=== PATIENT | female | born 1955 | race Asian ===

== ENCOUNTER 2020-07-07 11:27 | Inpatient (IN) | payer MEDICAID ==
[~2020-07-07] VITALS: Ht 160 cm; Wt 73.5 kg
--- NOTE | 2020-07-07 11:26 | Emergency Room Report ---
History of Present Illness General Chief Complaint: Dyspnea/Respdistress Source: Patient, EMS Present Illness HPI Patient is a 65-year-old female presents for increased difficulty with breathing. Patient a prior history of positive coronavirus testing. Patient states she began having symptoms 6 days ago. Prior history of hypertension and diabetes. Reports having worsening shortness of breath as well as body aches. Denies any leg pain or swelling. No chest discomfort. Normally takes Metformin. Nonproductive cough. Patient was seen by paramedics and started on supplemental oxygen Allergies: Coded Allergies: No Known Allergies (Unverified , 07/07/20) Patient History Past Medical History: see triage record Reviewed Nursing Documentation: PMH: Agreed; PSxH: Agreed Review of Systems All Other Systems: negative except mentioned in HPI Physical Exam Sp02 EP Interpretation: reviewed, normal General Appearance: normal inspection, well appearing, no apparent distress, alert, GCS 15, non-toxic, obese Head: atraumatic ENT: normal ENT inspection, hearing grossly normal, normal voice Neck: normal inspection, full range of motion, supple, no bony tend Respiratory: normal inspection, lungs clear, normal breath sounds, no respiratory distress, no retraction, no wheezing Cardiovascular #1: regular rate, rhythm, no edema Gastrointestinal: normal inspection, normal bowel sounds, non tender, soft, no guarding, no hernia Genitourinary: no CVA tenderness Musculoskeletal: normal inspection, back normal, normal range of motion Neurologic: alert, motor strength/tone normal, 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 Total critical care time excluding procedures approximately 45 minutes. Medical Decision Making Diagnostic Impression: Primary Impression: Coronavirus infection Additional Impressions: Pneumonitis Hypoxia Hyponatremia ER Course Patient presents for shortness of breath. Differential diagnosis include was not limited to coronavirus pneumonia, CHF, acidosis among others. Because of complexity of patient's case laboratory tests and imaging studies were ordered. Patient's chest x-ray showed bilateral diffuse patchy infiltrates. Patient started on IV fluids. patient was started on supplemental oxygen required BiPAP due to persistent tachypnea. Dr. Malcolm was contacted for inpatient management due to panel physician. She will be admitted to the stepdown unit due to significant coronavirus infection. Labs Test 07/07/20 11:30 White Blood Count 10.8 K/UL (4.8-10.8) Red Blood Count 4.27 M/UL (4.20-5.40) Hemoglobin 12.0 G/DL (12.0-16.0) Hematocrit 35.2 % (37.0-47.0) Mean Corpuscular Volume 82 FL (80-99) Mean Corpuscular Hemoglobin 28.2 PG (27.0-31.0) Mean Corpuscular Hemoglobin Concent 34.2 G/DL (32.0-36.0) Red Cell Distribution Width 11.6 % (11.6-14.8) Platelet Count 200 K/UL (150-450) Mean Platelet Volume 8.3 FL (6.5-10.1) Neutrophils (%) (Auto) % (45.0-75.0) Lymphocytes (%) (Auto) % (20.0-45.0) Monocytes (%) (Auto) % (1.0-10.0) Eosinophils (%) (Auto) % (0.0-3.0) Basophils (%) (Auto) % (0.0-2.0) Differential Total Cells Counted 100 Neutrophils % (Manual) 81 % (45-75) Lymphocytes % (Manual) 12 % (20-45) Monocytes % (Manual) 4 % (1-10) Eosinophils % (Manual) 0 % (0-3) Basophils % (Manual) 0 % (0-2) Band Neutrophils 3 % (0-8) Platelet Estimate Adequate Platelet Morphology Normal Red Blood Cell Morphology Normal Prothrombin Time 10.7 SEC (9.30-11.50) Prothromb Time International Ratio 1.0 (0.9-1.1) Activated Partial Thromboplast Time 33 SEC (23-33) D-Dimer 0.88 mg/L FEU (0.00-0.49) Sodium Level 121 MMOL/L (136-145) Potassium Level 4.3 MMOL/L (3.5-5.1) Chloride Level 88 MMOL/L (98-107) Carbon Dioxide Level 23 MMOL/L (21-32) Anion Gap 10 mmol/L (5-15) Blood Urea Nitrogen 9 mg/dL (7-18) Creatinine 0.6 MG/DL (0.55-1.30) Estimat Glomerular Filtration Rate > 60 mL/min (>60) Glucose Level 135 MG/DL (74-106) Lactic Acid Level 1.80 mmol/L (0.4-2.0) Calcium Level 8.4 MG/DL (8.5-10.1) Phosphorus Level 2.5 MG/DL (2.5-4.9) Magnesium Level 1.6 MG/DL (1.8-2.4) Ferritin 1494 NG/ML (8-388) Total Bilirubin 0.9 MG/DL (0.2-1.0) Aspartate Amino Transf (AST/SGOT) 49 U/L (15-37) Alanine Aminotransferase (ALT/SGPT) 28 U/L (12-78) Alkaline Phosphatase 39 U/L (46-116) Lactate Dehydrogenase 609 U/L (81-234) Total Creatine Kinase 293 U/L (26-308) Creatine Kinase MB 3.2 NG/ML (0.0-3.6) Creatine Kinase MB Relative Index 1.0 Troponin I 0.000 ng/mL (0.000-0.056) C-Reactive Protein, Quantitative 8.6 mg/dL (0.00-0.90) Pro-B-Type Natriuretic Peptide 261 pg/mL (0-125) Total Protein 8.0 G/DL (6.4-8.2) Albumin 2.8 G/DL (3.4-5.0) Globulin 5.2 g/dL Albumin/Globulin Ratio 0.5 (1.0-2.7) Lipase 142 U/L (73-393) Sulaiman Kraus MD Jul 07, 2020 11:26
[2020-07-07 11:56] LABS: HEMATOCRIT 35.2 % (37.0-47.0); MEAN CORPUSCULAR VOLUME 82 FL (80-99); PLATELET COUNT 200 K/UL (150-450); RED BLOOD COUNT 4.27 M/UL (4.20-5.40); RED CELL DISTRIBUTION WIDTH 11.6 % (11.6-14.8); WHITE BLOOD COUNT 10.8 K/UL (4.8-10.8)
[2020-07-07] MEDS ORDERED: Azithromycin 500 MG in NS 275 ML IV ONE (12:00)
[2020-07-07] MEDS ORDERED: Enoxaparin 80mg Inj SUBQ ONE (12:00)
[2020-07-07 12:14] LABS: ANION GAP 10 mmol/L (5-15); BLOOD UREA NITROGEN 9 mg/dL (7-18); CALCIUM 8.4 MG/DL (8.5-10.1); CARBON DIOXIDE 23 MMOL/L (21-32); CHLORIDE 88 MMOL/L (98-107); CREATININE 0.6 MG/DL (0.55-1.30); POTASSIUM 4.3 MMOL/L (3.5-5.1); SODIUM 121 MMOL/L (136-145)
--- NOTE | 2020-07-07 12:17 | NUR ---
Received patient from home presenting with SOB. + COVID-19 Dx 3 days ago. AAOX4. Ambulating independently. Came in to ER on 5L but sat has decreased to 88. Placed on NR @ 10L. She is SOB with resp increasing to 40s. Patient will be placed on a BiPaP machine per MD order. V/S 130/78. 82 40 92% presently.
--- NOTE | 2020-07-07 12:22 | NUR ---
Respiratory in room for BiPaP placement.
[2020-07-07 12:29] LABS: ALANINE AMINOTRANSFERASE 28 U/L (12-78); ALBUMIN 2.8 G/DL (3.4-5.0); ALBUMIN/GLOBULIN RATIO 0.5 (1.0-2.7); ALKALINE PHOSPHATASE 39 U/L (46-116); ASPARTATE AMINO TRANSFERASE 49 U/L (15-37); BILIRUBIN,TOTAL 0.9 MG/DL (0.2-1.0); CKMB 3.2 NG/ML (0.0-3.6); CREATINE KINASE 293 U/L (26-308); FERRITIN 1494 NG/ML (8-388); LACTATE DEHYDROGENASE 609 U/L (81-234); PHOSPHORUS 2.5 MG/DL (2.5-4.9)
[2020-07-07 12:37] VITALS: BP 125/78
[2020-07-07] MEDS ORDERED: DIOVAN80 MG ORAL (12:47)
[2020-07-07] MEDS ORDERED: METFORMIN HCL500 M1 ORAL (12:47)
--- NOTE | 2020-07-07 12:55 | NUR ---
BiPaP 10/5 FiO2 65% 125/78 83 96% 35
[2020-07-07 14:15] VITALS: BP 125/78
--- NOTE | 2020-07-07 14:15 | NUR ---
NURSE NOTES: Received pt from [facility], all admision assessments and instructions done and pt verbally confirmed to understand all. pt is awake and alert, pt has bipap 10/5 fio2 65%. pt is on continues heart monitoring. pt has intact iv access RH 20G is running well. skin is intact. RN called Dr Malcolm and left massage regarding admission orders, waiting to call back. all needs attended, bed is locked and is in the lowest position, call light within easy reach. will continue to monitor.
--- NOTE | 2020-07-07 14:16 | Diagnostic Imaging Report ---
Indication: Shortness of breath Technique: One view of the chest Comparison: none Findings: The heart is enlarged. There are extensive bilateral infiltrates. The pleural spaces are clear. Impression: Extensive bilateral infiltrates, likely bilateral pneumonia. Pulmonary edema also possible. Mild cardiomegaly
--- NOTE | 2020-07-07 15:35 | Infectious Diseases Prog Note ---
Assessment/Plan Problems: (1) COVID-19 virus infection Assessment & Plan: complicated with pneumonia and hypoxemia, she qualifies for remdisvir at this stage which I will order, will send PCR test to confirm, keep patient in enhance droplet isolation (2) Dyspnea due to COVID-19 Assessment & Plan: continue respiratory support with BiPAP and titrate as needed, monitor chest x-ray and ABG (3) Pneumonia due to COVID-19 virus Assessment & Plan: we will start Remdisvir IV for 5 days, send sputum culture if she produces any, monitor chest x-ray (4) Acute respiratory failure due to COVID-19 Assessment & Plan: suspect due to pneumonitis from COV ID 19, continue respiratory support with close monitor of ABG and chest x-ray Subjective Allergies: Coded Allergies: No Known Allergies (Unverified , 07/07/20) Objective Last 24 Hour Vital Signs Date Time Temp Pulse Resp B/P (MAP) Pulse Ox O2 Delivery O2 Flow Rate FiO2 07/07/20 14:33 82 45 94 65 07/07/20 14:33 82 45 94 Bi-Pap 65 07/07/20 14:21 87 07/07/20 14:15 98.2 85 28 125/78 (94) 94 07/07/20 12:37 80 33 Bi-pap 65 07/07/20 12:37 33 125/78 95 Bi-pap 65 07/07/20 12:25 82 34 100 65 07/07/20 11:17 84 20 121/72 (88) 91 Nasal Cannula 6.0 Height (Feet): 5 Height (Inches): 3.00 Weight (Pounds): 162 Laboratory Tests Test 07/07/20 11:30 White Blood Count 10.8 K/UL (4.8-10.8) Red Blood Count 4.27 M/UL (4.20-5.40) Hemoglobin 12.0 G/DL (12.0-16.0) Hematocrit 35.2 % (37.0-47.0) L Mean Corpuscular Volume 82 FL (80-99) Mean Corpuscular Hemoglobin 28.2 PG (27.0-31.0) Mean Corpuscular Hemoglobin Concent 34.2 G/DL (32.0-36.0) Red Cell Distribution Width 11.6 % (11.6-14.8) Platelet Count 200 K/UL (150-450) Mean Platelet Volume 8.3 FL (6.5-10.1) Neutrophils (%) (Auto) % (45.0-75.0) Lymphocytes (%) (Auto) % (20.0-45.0) Monocytes (%) (Auto) % (1.0-10.0) Eosinophils (%) (Auto) % (0.0-3.0) Basophils (%) (Auto) % (0.0-2.0) Differential Total Cells Counted 100 Neutrophils % (Manual) 81 % (45-75) H Lymphocytes % (Manual) 12 % (20-45) L Monocytes % (Manual) 4 % (1-10) Eosinophils % (Manual) 0 % (0-3) Basophils % (Manual) 0 % (0-2) Band Neutrophils 3 % (0-8) Platelet Estimate Adequate Platelet Morphology Normal Red Blood Cell Morphology Normal Prothrombin Time 10.7 SEC (9.30-11.50) Prothromb Time International Ratio 1.0 (0.9-1.1) Activated Partial Thromboplast Time 33 SEC (23-33) D-Dimer 0.88 mg/L FEU (0.00-0.49) H Sodium Level 121 MMOL/L (136-145) L Potassium Level 4.3 MMOL/L (3.5-5.1) Chloride Level 88 MMOL/L (98-107) L Carbon Dioxide Level 23 MMOL/L (21-32) Anion Gap 10 mmol/L (5-15) Blood Urea Nitrogen 9 mg/dL (7-18) Creatinine 0.6 MG/DL (0.55-1.30) Estimat Glomerular Filtration Rate > 60 mL/min (>60) Glucose Level 135 MG/DL (74-106) H Lactic Acid Level 1.80 mmol/L (0.4-2.0) Calcium Level 8.4 MG/DL (8.5-10.1) L Phosphorus Level 2.5 MG/DL (2.5-4.9) Magnesium Level 1.6 MG/DL (1.8-2.4) L Ferritin 1494 NG/ML (8-388) H Total Bilirubin 0.9 MG/DL (0.2-1.0) Aspartate Amino Transf (AST/SGOT) 49 U/L (15-37) H Alanine Aminotransferase (ALT/SGPT) 28 U/L (12-78) Alkaline Phosphatase 39 U/L (46-116) L Lactate Dehydrogenase 609 U/L (81-234) H Total Creatine Kinase 293 U/L (26-308) Creatine Kinase MB 3.2 NG/ML (0.0-3.6) Creatine Kinase MB Relative Index 1.0 Troponin I 0.000 ng/mL (0.000-0.056) C-Reactive Protein, Quantitative 8.6 mg/dL (0.00-0.90) H Pro-B-Type Natriuretic Peptide 261 pg/mL (0-125) H Total Protein 8.0 G/DL (6.4-8.2) Albumin 2.8 G/DL (3.4-5.0) L Globulin 5.2 g/dL Albumin/Globulin Ratio 0.5 (1.0-2.7) L Lipase 142 U/L (73-393) Nataliia Velazquez M.D. Jul 07, 2020 15:35
[2020-07-07 16:00] VITALS: BP 143/89
--- NOTE | 2020-07-07 16:06 | NUR ---
NURSE NOTES: Dr Malcolm called back, he is aware about all labs contains mg 1.6, NA 121, V/S, BS 135, all orders noted and carried out. didn't continue home meds. Will continue to close monitoring.
[2020-07-07] MEDS: NovoLOG Insulin Flexpen SUBQ SCH ×2 (16:30→21:00)
--- NOTE | 2020-07-07 17:15 | NUR ---
NURSE NOTES: covid swab sent to lab, waiting for result.
[2020-07-07] MEDS ORDERED: Loading Dose:Remdesivir 200mg/NS 210ml IV SCH ×2 (18:00)
--- NOTE | 2020-07-07 19:20 | NUR ---
NURSE HAND-OFF REPORT: Important Events on Shift: Patient Status: Diet: Pending Orders: Pending Results/Labs: Pending MD notification: Latest Vital Signs: Temperature 98.2 , Pulse 91 , B/P 143 /89 , Respiratory Rate 25 , O2 SAT 94 , Nasal Cannula, O2 Flow Rate 6.0 . Vital Sign Comment: EKG Rhythm: Sinus Rhythm Rhythm change?: N MD Notified?: - MD Response: Latest Plaza Fall Score: 30 Fall Risk: Medium Risk Safety Measures: Call light Within Reach, Bed Alarm Zone 1, Side Rails Side Rails x3, Bed position Low and Locked. Fall Precautions: Yellow Socks Yellow Gown Door Sign Patient Fall Education Report given to . Pt is awake and stable, no stress noted, endorsed plan of care, endorsed to monitor spo2.
[2020-07-07 20:00] VITALS: BP 139/80
--- NOTE | 2020-07-07 20:54 | Consultation ---
History of Present Illness General Date patient seen: Jul 07, 2020 Time patient seen: 14:55 Chief Complaint: Dyspnea/Respdistress Referring physician: Bronson Phipps Reason for Consultation: COVID 19 viral pneumonia Present Illness HPI Patient is a 65-year-old female presents for increased difficulty with breathing. Patient a prior history of positive coronavirus testing. Patient states she began having symptoms 6 days ago. Prior history of hypertension and diabetes. Reports having worsening shortness of breath as well as body aches. Denies any leg pain or swelling. No chest discomfort. Normally takes Metformin. Nonproductive cough. Patient was seen by paramedics and started on supplemental Oxygen . CXR showed B/L interstitial infiltrates , labs showed elevated inflammatory markers for COVID 19. ID was consulted for antimicrobial treatment Allergies: Coded Allergies: No Known Allergies (Unverified , 07/07/20) Medication History Scheduled Metformin Hcl* (Metformin Hcl*), Unknown Dose ORAL DAILY, (Reported) Valsartan (Diovan), Unknown Dose ORAL DAILY, (Reported) Patient History Healthcare decision maker Resuscitation status Advanced Directive on File Review of Systems Constitutional: Reports: fever, weakness Eye: Reports: no symptoms ENT: Reports: no symptoms Respiratory: Reports: cough, orthopnea, shortness of breath Cardiovascular: Reports: no symptoms Gastrointestinal: Reports: no symptoms Genitourinary: Reports: no symptoms Musculoskeletal: Reports: no symptoms Skin: Reports: no symptoms Physical Exam General Appearance: WD/WN, no apparent distress, alert, lethargic Lines, tubes and drains: peripheral HEENT: normocephalic, atraumatic, anicteric, mucous membranes moist Neck: non-tender, normal alignment, supple, normal inspection Respiratory/Chest: chest wall non-tender, normal breath sounds, no respiratory distress, no accessory muscle use, crackles/rales Cardiovascular/Chest: normal peripheral pulses, normal rate, regular rhythm, no gallop/murmur, no JVD Abdomen: normal bowel sounds, non tender, soft, no organomegaly, no mass, decreased bowel sounds, mass Genitourinary/Rectal: normal genital exam Extremities: normal range of motion, non-tender, normal inspection Skin Exam: normal pigmentation Neurologic: program clerk II-XII grossly normal, alert, oriented x 3 Last 24 Hour Vital Signs Date Time Temp Pulse Resp B/P (MAP) Pulse Ox O2 Delivery O2 Flow Rate FiO2 07/07/20 20:00 Bi-pap 07/07/20 20:00 86 07/07/20 20:00 85 07/07/20 20:00 65 07/07/20 20:00 97.9 86 24 139/80 (99) 94 07/07/20 16:00 98.2 91 25 143/89 (107) 94 07/07/20 16:00 65 07/07/20 16:00 85 07/07/20 14:33 82 45 94 65 07/07/20 14:33 82 45 94 Bi-Pap 65 07/07/20 14:21 87 07/07/20 14:21 87 07/07/20 14:15 Bi-pap 07/07/20 14:15 98.2 85 28 125/78 (94) 94 07/07/20 12:37 80 33 Bi-pap 65 07/07/20 12:37 33 125/78 95 Bi-pap 65 07/07/20 12:25 82 34 100 65 07/07/20 11:17 84 20 121/72 (88) 91 Nasal Cannula 6.0 Laboratory Tests Test 07/07/20 11:30 07/07/20 16:21 07/07/20 20:04 White Blood Count 10.8 K/UL (4.8-10.8) Red Blood Count 4.27 M/UL (4.20-5.40) Hemoglobin 12.0 G/DL (12.0-16.0) Hematocrit 35.2 % (37.0-47.0) L Mean Corpuscular Volume 82 FL (80-99) Mean Corpuscular Hemoglobin 28.2 PG (27.0-31.0) Mean Corpuscular Hemoglobin Concent 34.2 G/DL (32.0-36.0) Red Cell Distribution Width 11.6 % (11.6-14.8) Platelet Count 200 K/UL (150-450) Mean Platelet Volume 8.3 FL (6.5-10.1) Neutrophils (%) (Auto) % (45.0-75.0) Lymphocytes (%) (Auto) % (20.0-45.0) Monocytes (%) (Auto) % (1.0-10.0) Eosinophils (%) (Auto) % (0.0-3.0) Basophils (%) (Auto) % (0.0-2.0) Differential Total Cells Counted 100 Neutrophils % (Manual) 81 % (45-75) H Lymphocytes % (Manual) 12 % (20-45) L Monocytes % (Manual) 4 % (1-10) Eosinophils % (Manual) 0 % (0-3) Basophils % (Manual) 0 % (0-2) Band Neutrophils 3 % (0-8) Platelet Estimate Adequate Platelet Morphology Normal Red Blood Cell Morphology Normal Prothrombin Time 10.7 SEC (9.30-11.50) Prothromb Time International Ratio 1.0 (0.9-1.1) Activated Partial Thromboplast Time 33 SEC (23-33) D-Dimer 0.88 mg/L FEU (0.00-0.49) H Sodium Level 121 MMOL/L (136-145) L Potassium Level 4.3 MMOL/L (3.5-5.1) Chloride Level 88 MMOL/L (98-107) L Carbon Dioxide Level 23 MMOL/L (21-32) Anion Gap 10 mmol/L (5-15) Blood Urea Nitrogen 9 mg/dL (7-18) Creatinine 0.6 MG/DL (0.55-1.30) Estimat Glomerular Filtration Rate > 60 mL/min (>60) Glucose Level 135 MG/DL (74-106) H Lactic Acid Level 1.80 mmol/L (0.4-2.0) Calcium Level 8.4 MG/DL (8.5-10.1) L Phosphorus Level 2.5 MG/DL (2.5-4.9) Magnesium Level 1.6 MG/DL (1.8-2.4) L Ferritin 1494 NG/ML (8-388) H Total Bilirubin 0.9 MG/DL (0.2-1.0) Aspartate Amino Transf (AST/SGOT) 49 U/L (15-37) H Alanine Aminotransferase (ALT/SGPT) 28 U/L (12-78) Alkaline Phosphatase 39 U/L (46-116) L Lactate Dehydrogenase 609 U/L (81-234) H Total Creatine Kinase 293 U/L (26-308) Creatine Kinase MB 3.2 NG/ML (0.0-3.6) Creatine Kinase MB Relative Index 1.0 Troponin I 0.000 ng/mL (0.000-0.056) C-Reactive Protein, Quantitative 8.6 mg/dL (0.00-0.90) H Pro-B-Type Natriuretic Peptide 261 pg/mL (0-125) H Total Protein 8.0 G/DL (6.4-8.2) Albumin 2.8 G/DL (3.4-5.0) L Globulin 5.2 g/dL Albumin/Globulin Ratio 0.5 (1.0-2.7) L Lipase 142 U/L (73-393) POC Whole Blood Glucose Pending 199 MG/DL (74-106) H Height (Feet): 5 Height (Inches): 3.00 Weight (Pounds): 162 Medications Current Medications Medications (Trade) Dose Ordered Sig/Marian Route PRN Reason Start Time Stop Time Status Last Admin Dose Admin Acetaminophen (Tylenol) 650 mg Q6H PRN ORAL For Pain 07/07/20 15:45 08/06/20 15:44 Acetaminophen (Tylenol) 650 mg Q6H PRN ORAL FEVER 07/07/20 16:15 08/06/20 16:14 Azithromycin (Zithromax) 500 mg DAILY ORAL 07/08/20 09:00 07/15/20 08:59 Dexamethasone Sodium Phosphate (Decadron 10mg/ ml Inj) 6 mg DAILY IV 07/08/20 09:00 07/17/20 09:01 Dextrose (Dextrose 50%) 25 ml Q30M PRN IV Hypoglycemia 07/07/20 15:45 10/05/20 15:44 Dextrose (Dextrose 50%) 50 ml Q30M PRN IV Hypoglycemia 07/07/20 15:45 10/05/20 15:44 Enoxaparin Sodium (Lovenox) 80 mg DAILY SUBQ 07/08/20 09:00 10/06/20 08:59 Insulin Aspart (NovoLOG) BEFORE MEALS AND HS SUBQ 07/07/20 16:30 10/05/20 16:29 Pantoprazole (Protonix) 40 mg DAILY ORAL 07/08/20 09:00 08/07/20 08:59 Remdesivir 100 mg/ Sodium Chloride 250 ml @ 250 mls/hr Q24H IV 07/08/20 18:00 07/11/20 18:59 Assessment/Plan Problem List: (1) COVID-19 virus infection Assessment & Plan: complicated with pneumonia and hypoxemia, she qualifies for remdisvir at this stage which I will order, will send PCR test to confirm, keep patient in enhance droplet isolation ICD Codes: U07.1 - COVID-19 SNOMED: 280521099 (2) Dyspnea due to COVID-19 Assessment & Plan: continue respiratory support with BiPAP and titrate as needed, monitor chest x-ray and ABG ICD Codes: U07.1 - COVID-19; R06.00 - Dyspnea, unspecified SNOMED: 055895537552598 (3) Pneumonia due to COVID-19 virus Assessment & Plan: we will start Remdisvir IV for 5 days, send sputum culture if she produces any, monitor chest x-ray ICD Codes: U07.1 - COVID-19; J12.82 - Pneumonia due to coronavirus disease 2019 SNOMED: 787785423784350102 (4) Acute respiratory failure due to COVID-19 Assessment & Plan: suspect due to pneumonitis from COV ID 19, continue respiratory support with close monitor of ABG and chest x-ray ICD Codes: U07.1 - COVID-19; J96.00 - Acute respiratory failure, unspecified whether with hypoxia or hypercapnia SNOMED: 16249325, [id number] Nataliia Velazquez M.D. Jul 07, 2020 20:54
[2020-07-08] VITALS: BP 137/82
[2020-07-08 04:00] VITALS: BP 142/81
[2020-07-08 05:44] LABS: BASOPHILS % (AUTO) 0.3 % (0.0-2.0); HEMOGLOBIN 11.8 G/DL (12.0-16.0); LYMPHOCYTES % (AUTO) 11.7 % (20.0-45.0); MEAN CORPUSCULAR VOLUME 84 FL (80-99); MONOCYTES % (AUTO) 4.3 % (1.0-10.0); NEUTROPHILS % (AUTO) 83.8 % (45.0-75.0); PLATELET COUNT 226 K/UL (150-450); RED BLOOD COUNT 4.19 M/UL (4.20-5.40); RED CELL DISTRIBUTION WIDTH 11.6 % (11.6-14.8)
[2020-07-08] MEDS: NovoLOG Insulin Flexpen SUBQ SCH ×4 (06:02→21:00)
[2020-07-08 06:05] LABS: GAMMA GLUTAMYL TRANSPEPTIDASE 30 U/L (5-85); LACTATE DEHYDROGENASE 486 U/L (81-234)
[2020-07-08 06:14] LABS: ALANINE AMINOTRANSFERASE 27 U/L (12-78); ALBUMIN 2.5 G/DL (3.4-5.0); ALBUMIN/GLOBULIN RATIO 0.5 (1.0-2.7); ALKALINE PHOSPHATASE 38 U/L (46-116); ANION GAP 9 mmol/L (5-15); ASPARTATE AMINO TRANSFERASE 38 U/L (15-37); BILIRUBIN,DIRECT 0.2 MG/DL (0.0-0.3); BILIRUBIN,TOTAL 0.6 MG/DL (0.2-1.0); BLOOD UREA NITROGEN 12 mg/dL (7-18); CALCIUM 8.6 MG/DL (8.5-10.1); CARBON DIOXIDE 25 MMOL/L (21-32); CHLORIDE 100 MMOL/L (98-107); CHOLESTEROL 96 MG/DL (< 200); CREATININE 0.6 MG/DL (0.55-1.30); HDL CHOLESTEROL 42 MG/DL (40-60); POTASSIUM 3.7 MMOL/L (3.5-5.1); SODIUM 134 MMOL/L (136-145); TRIGLYCERIDES 93 MG/DL (30-150)
[2020-07-08 06:17] LABS: PHOSPHORUS 2.9 MG/DL (2.5-4.9)
--- NOTE | 2020-07-08 07:09 | NUR ---
RESPIRATORY NOTE: PT received stable on BiPAP with current settings: 03/06 RR:12, 65%. Alarms are on and audible. PT is on facial mask with no facial wounds noted. PT's VS are WNL but she has increased RR of 40 - 45 bpm. Her respirations are shallow but non labored. PT expressed feeling no SOB at this time. Will continue to closely monitor.
--- NOTE | 2020-07-08 07:22 | NUR ---
NURSE NOTES: Pt received from Steve ambrose RN. Pt in bed on the phone, saturation 97% on bipap. No pain or distress noted. bed low and locked, call light within reach.
--- NOTE | 2020-07-08 07:48 | History & Physical ---
History and Physical History & Physicial Patient seen and examind. Full Dictation completed on 0745 hours Gail Malcolm MD Jul 08, 2020 07:48
[2020-07-08 08:00] VITALS: BP 117/79
--- NOTE | 2020-07-08 08:05 | NUR ---
RESPIRATORY NOTE: ABG drawn at this time. Results reported to LIANA Padgett.
--- NOTE | 2020-07-08 08:44 | History and Physical Report ---
DATE OF ADMISSION: 07/07/2020 SOURCE OF INFORMATION: The patient and EMR. HISTORY OF PRESENT ILLNESS: The patient is a 64-year-old female, who presented with cough and sore throat, tested positive for COVID. At the time of evaluation in the step-down unit, the patient denies any severe chest pain. No nausea. No vomitus. No diarrhea. No constipation. The patient's in review of the medical record from the ER. The patient's initial vital signs shows significant hypoxemia. ALLERGIES: NKDA. REVIEW OF SYSTEMS: All 12 elements of review of systems reviewed, pertinent positive and negative as above. PAST MEDICAL AND SURGICAL HISTORY: Diabetes. FAMILY HISTORY: Reviewed and noncontributory. SOCIAL HISTORY: The patient has one child. 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 Denies smoking, illicit drug abuse or alcohol abuse. PHYSICAL EXAMINATION: VITAL SIGNS: Blood pressure 120/80, temperature 98.2, pulse oximetry 98% on room air, pulse rate 80, respiratory rate 18. HEAD AND NECK: Atraumatic and normocephalic. CHEST: Diffuse bronchial breathing sounds. HEART: S1 and S2. Regular rate and rhythm. ABDOMEN: Soft. No organomegaly. MUSCULOSKELETAL: No gross lateralized motor deficit. DIAGNOSTIC DATA: Chest x-ray shows bilateral pneumonia. ASSESSMENT: 1. COVID-19 pneumonia. 2. Hypoxemic respiratory failure. 3. Diabetes type 2. 4. Hyponatremia. 5. GI and DVT prophylaxis. PLAN OF CARE: Pulmonary, Cardiology, Infectious Disease have been consulted. Gail Malcolm M.D. DR: KRISTAL JOB#: [id number] CC:
[2020-07-08] MEDS: Azithromycin 250mg tab ORAL SCH (08:58)
[2020-07-08] MEDS: dexAMETHasone 10mg/ml Inj IV SCH (08:58)
[2020-07-08] MEDS: Enoxaparin 80mg Inj SUBQ SCH (09:05)
--- NOTE | 2020-07-08 09:28 | NUR ---
RESPIRATORY NOTE: At this time PT was placed on 100% Fio2 via NRB mask in order for the PT to be able to ingest her oral medication and eat. PT is tolerating NRB mask at this time and her current VS are HR:91, SpO2:96, RR: 44. PT has an increased respiratory rate that is shallow but is non-labored. PT expressed feeling no SOB at this time. Will place PT back on BiPAP once the food settles as long as her saturation tolerates it. Will continue to closely monitor.
[2020-07-08 12:00] VITALS: BP 111/72
--- NOTE | 2020-07-08 14:13 | NUR ---
CASE MANAGEMENT: INITIAL REVIEW 64 YO F BIBA FROM HOME CC: 77% ON RA PMHx: DM SI:COVID PNA VS: T 98.2 HR 85 RR 28 B/P 125/78 SATS 94% ON BIPAP FIO2 65 LABS: NA 121 CL 88 GLU 135 CA 8.4 MG 1.6 AST 49 ALP 39 LDH 609 CRP 8.6 BNP 261 IS: NS BOLUS X1 DECARDON IV X1 LOVENOX SUBA X1 AZITHROMYCIN IV X1 PATIENT ADMITTED TO SDU 07/07/2020 @ 1250 DCP: HOME PLAN OF CARE: Pulmonary, Cardiology, Infectious Disease consultation
--- NOTE | 2020-07-08 14:16 | Infectious Diseases Prog Note ---
Assessment/Plan Problems: (1) COVID-19 virus infection Assessment & Plan: complicated with pneumonia and hypoxemia, continue remdisvir for 5 days, monitor PCR test to confirm, keep patient in enhance droplet isolation (2) Dyspnea due to COVID-19 Assessment & Plan: continue respiratory support with BiPAP and titrate as needed, monitor chest x-ray and ABG (3) Pneumonia due to COVID-19 virus Assessment & Plan: continue Remdisvir IV for 5 days, send sputum culture if she produces any, monitor chest x-ray (4) Acute respiratory failure due to COVID-19 Assessment & Plan: suspect due to pneumonitis from COV ID 19, continue respiratory support with close monitor of ABG and chest x-ray Subjective Constitutional: Reports: no symptoms HEENT: Reports: no symptoms Respiratory: Reports: shortness of breath, dry cough Breasts: Reports: no symptoms Cardiovascular: Reports: no symptoms Gastrointestinal/Abdominal: Reports: no symptoms Genitourinary: Reports: no symptoms Neurologic: Reports: no symptoms Psychiatric: Reports: no symptoms Skin: Reports: no symptoms Endocrine: Reports: no symptoms Hematologic: Reports: no symptoms Musculoskeletal: Reports: no symptoms Allergies: Coded Allergies: No Known Allergies (Unverified , 07/07/20) Objective Last 24 Hour Vital Signs Date Time Temp Pulse Resp B/P (MAP) Pulse Ox O2 Delivery O2 Flow Rate FiO2 07/08/20 14:01 97 Non-Rebreather 15.0 100 07/08/20 13:30 91 40 94 07/08/20 13:29 84 42 96 70 07/08/20 12:00 70 07/08/20 12:00 84 07/08/20 12:00 Bi-pap 70.0 07/08/20 12:00 98.1 88 24 111/72 (85) 98 07/08/20 11:05 84 39 94 70 07/08/20 09:28 91 44 96 07/08/20 08:30 86 48 96 70 07/08/20 08:00 Bi-pap 70.0 07/08/20 08:00 70 07/08/20 08:00 88 07/08/20 08:00 98.2 89 25 117/79 (92) 98 07/08/20 07:09 85 45 96 65 07/08/20 05:41 83 17 95 65 2/6/21 04:32 65 07/08/20 04:32 85 07/08/20 04:00 81 07/08/20 04:00 97.7 91 24 142/81 (101) 93 07/08/20 04:00 Bi-pap 65.0 07/08/20 01:25 70 26 97 65 07/08/20 00:00 98.0 93 24 137/82 (100) 92 07/08/20 00:00 Bi-pap 65.0 07/08/20 00:00 83 07/07/20 23:00 86 29 96 65 07/07/20 21:05 78 30 97 65 07/07/20 20:15 87 32 93 65 07/07/20 20:00 Bi-pap 07/07/20 20:00 86 07/07/20 20:00 Bi-pap 65.0 07/07/20 20:00 85 07/07/20 20:00 65 07/07/20 20:00 97.9 86 24 139/80 (99) 94 07/07/20 16:00 98.2 91 25 143/89 (107) 94 07/07/20 16:00 65 07/07/20 16:00 85 07/07/20 14:33 82 45 94 65 07/07/20 14:33 82 45 94 Bi-Pap 65 07/07/20 14:21 87 07/07/20 14:21 87 Height (Feet): 5 Height (Inches): 3.00 Weight (Pounds): 162 General Appearance: WD/WN, no acute distress HEENT: normocephalic, atraumatic, anicteric Respiratory/Chest: chest wall non-tender, normal breath sounds, no respiratory distress, no accessory muscle use Cardiovascular: normal peripheral pulses, normal rate, regular rhythm Abdomen: normal bowel sounds, soft, non tender, no organomegaly Extremities: no cyanosis, no clubbing Skin: no rash, no lesions Neurologic/Psychiatric: director of music II-XII grossly normal, oriented x 3 Lymphatic: no neck adenopathy, no groin adenopathy Laboratory Tests Test 07/07/20 16:21 07/07/20 20:04 07/08/20 05:10 07/08/20 05:29 POC Whole Blood Glucose Pending 199 MG/DL (74-106) H 119 MG/DL (74-106) H White Blood Count 10.0 K/UL (4.8-10.8) Red Blood Count 4.19 M/UL (4.20-5.40) L Hemoglobin 11.8 G/DL (12.0-16.0) L Hematocrit 35.0 % (37.0-47.0) L Mean Corpuscular Volume 84 FL (80-99) Mean Corpuscular Hemoglobin 28.2 PG (27.0-31.0) Mean Corpuscular Hemoglobin Concent 33.7 G/DL (32.0-36.0) Red Cell Distribution Width 11.6 % (11.6-14.8) Platelet Count 226 K/UL (150-450) Mean Platelet Volume 7.6 FL (6.5-10.1) Neutrophils (%) (Auto) 83.8 % (45.0-75.0) H Lymphocytes (%) (Auto) 11.7 % (20.0-45.0) L Monocytes (%) (Auto) 4.3 % (1.0-10.0) Eosinophils (%) (Auto) 0.0 % (0.0-3.0) Basophils (%) (Auto) 0.3 % (0.0-2.0) Sodium Level 134 MMOL/L (136-145) #L Potassium Level 3.7 MMOL/L (3.5-5.1) Chloride Level 100 MMOL/L (98-107) Carbon Dioxide Level 25 MMOL/L (21-32) Anion Gap 9 mmol/L (5-15) Blood Urea Nitrogen 12 mg/dL (7-18) Creatinine 0.6 MG/DL (0.55-1.30) Estimat Glomerular Filtration Rate > 60 mL/min (>60) Glucose Level 118 MG/DL (74-106) H Hemoglobin A1c 6.9 % (4.3-6.0) H Osmolality 278 mOsm/kg (297-317) L Lactic Acid Level 1.20 mmol/L (0.4-2.0) Uric Acid 4.0 MG/DL (2.6-7.2) Calcium Level 8.6 MG/DL (8.5-10.1) Phosphorus Level 2.9 MG/DL (2.5-4.9) Magnesium Level 2.3 MG/DL (1.8-2.4) Total Bilirubin 0.6 MG/DL (0.2-1.0) Direct Bilirubin 0.2 MG/DL (0.0-0.3) Gamma Glutamyl Transpeptidase 30 U/L (5-85) Aspartate Amino Transf (AST/SGOT) 38 U/L (15-37) H Alanine Aminotransferase (ALT/SGPT) 27 U/L (12-78) Alkaline Phosphatase 38 U/L (46-116) L Lactate Dehydrogenase 486 U/L (81-234) H C-Reactive Protein, Quantitative 9.0 mg/dL (0.00-0.90) H Pro-B-Type Natriuretic Peptide 308 pg/mL (0-125) H Total Protein 7.4 G/DL (6.4-8.2) Albumin 2.5 G/DL (3.4-5.0) L Globulin 4.9 g/dL Albumin/Globulin Ratio 0.5 (1.0-2.7) L Triglycerides Level 93 MG/DL (30-150) Cholesterol Level 96 MG/DL (< 200) LDL Cholesterol 40 mg/dL (<100) HDL Cholesterol 42 MG/DL (40-60) Cholesterol/HDL Ratio 2.3 (3.3-4.4) L Vitamin B12 Level > 2000 PG/ML (193-986) H Folate 17.7 NG/ML (8.6-58.9) Thyroid Stimulating Hormone (TSH) 0.225 uiU/mL (0.358-3.740) Test 07/08/20 08:05 Arterial Blood pH 7.436 (7.350-7.450) Arterial Blood Partial Pressure CO2 33.4 mmHg (35.0-45.0) L Arterial Blood Partial Pressure O2 72.0 mmHg (75.0-100.0) L Arterial Blood HCO3 22.0 mmol/L (22.0-26.0) Arterial Blood Oxygen Saturation 93.4 % (95-100) L Arterial Blood Base Excess -1.6 (-2-2) Timbo Test Positive Current Medications Medications (Trade) Dose Ordered Sig/Marian Route PRN Reason Start Time Stop Time Status Last Admin Dose Admin Acetaminophen (Tylenol) 650 mg Q6H PRN ORAL For Pain 07/07/20 15:45 08/06/20 15:44 Acetaminophen (Tylenol) 650 mg Q6H PRN ORAL FEVER 07/07/20 16:15 08/06/20 16:14 Azithromycin (Zithromax) 500 mg DAILY ORAL 07/08/20 09:00 07/15/20 08:59 07/08/20 08:58 Dexamethasone Sodium Phosphate (Decadron 10mg/ ml Inj) 6 mg DAILY IV 07/08/20 09:00 07/17/20 09:01 07/08/20 08:58 Dextrose (Dextrose 50%) 25 ml Q30M PRN IV Hypoglycemia 07/07/20 15:45 10/05/20 15:44 Dextrose (Dextrose 50%) 50 ml Q30M PRN IV Hypoglycemia 07/07/20 15:45 10/05/20 15:44 Enoxaparin Sodium (Lovenox) 80 mg DAILY SUBQ 07/08/20 09:00 10/06/20 08:59 07/08/20 09:05 Insulin Aspart (NovoLOG) BEFORE MEALS AND HS SUBQ 07/07/20 16:30 10/05/20 16:29 07/08/20 11:36 Pantoprazole (Protonix) 40 mg DAILY ORAL 07/08/20 09:00 08/07/20 08:59 07/08/20 08:58 Remdesivir 100 mg/ Sodium Chloride 250 ml @ 250 mls/hr Q24H IV 07/08/20 18:00 07/11/20 18:59 Nataliia Velazquez M.D. Jul 08, 2020 14:16
[2020-07-08 16:00] VITALS: BP 107/74
--- NOTE | 2020-07-08 17:29 | Consultation ---
DATE OF CONSULTATION: 07/08/2020 PULMONARY CONSULTATION HISTORY OF PRESENT ILLNESS: This is a 64-year-old female who came to the hospital with shortness of breath. The patient has tested positive for COVID-19. She began having symptoms 6 days ago. She was seen overnight by ID specialist and remdesivir has been ordered. She is also on Decadron. At this time, the patient is saturating well on nonrebreather mask 15 L. Previously, she was on BiPAP. PAST MEDICAL HISTORY: Otherwise noncontributory except for history of diabetes mellitus. She has a history of hypertension. SURGERIES: None reported. HOME MEDICATIONS: Diovan and metformin. ALLERGIES: None reported. REVIEW OF SYSTEMS: Denies any headaches, hematemesis, melena, hematochezia, night sweats, or weight loss. PHYSICAL EXAMINATION: GENERAL: A 64-year-old female. HEENT: Unremarkable. CHEST: Decreased breath sounds bilaterally. ABDOMEN: Soft. EXTREMITIES: There is no edema. VITAL SIGNS: Blood pressure is 160/70, heart rate 84, respirations 20. She is afebrile. LABORATORY TESTING: Mildly elevated glucose, otherwise normal CBC and BMP. X-ray chest shows patchy bilateral infiltrates. IMPRESSION: 1. COVID-19 pneumonia. 2. Hypoxemia. 3. Hypertension. 4. Diabetes mellitus. DISCUSSION: Admit to the hospital. The patient will benefit from remdesivir. We will start Lovenox. Continue oxygen. We will wean down to nonrebreather mask from BiPAP. We will follow carefully. Discussed with bedside RN. Vu Edward M.D. DR: MERCEDES JOB#: [id number] CC:
[2020-07-08] MEDS: Maintenance Dose:Remdesivir 100mg/NS 230ml x 4 Doses IV SCH ×2 (17:37)
--- NOTE | 2020-07-08 18:12 | Consultation ---
Consult Note Consult Note I am asked to evaluate the patient at the request of for management of hyponatremia HPI Patient is a 65-year-old female presents for increased difficulty with breat heriberto. Patient a prior history of positive coronavirus testing. Patient states she began having symptoms 6 days ago. Prior history of hypertension and diabetes. Reports having worsening shortness of breath as well as body aches. Denies any leg pain or swelling. No chest discomfort. Normally takes Metformin. Nonproductive cough. Patient was seen by paramedics and started on supplemental oxygen Allergies: No Known Allergies (Unverified , 07/07/20) Meds:, Metformin, losartan PHYSICAL EXAMINATION: VITAL SIGNS: Blood pressure 120/80, temperature 98.2, pulse oximetry 98% on room air, pulse rate 80, respiratory rate 18. HEAD AND NECK: Atraumatic and normocephalic. CHEST: Diffuse bronchial breathing sounds. HEART: S1 and S2. Regular rate and rhythm. ABDOMEN: Soft. No organomegaly. MUSCULOSKELETAL: No gross lateralized motor deficit. DIAGNOSTIC DATA: Chest x-ray shows bilateral pneumonia. . Assessment/Plan Hyponatremia, improved with saline infusion COVID-19 infection Pneumonia, acute respiratory failure, hypoxia Diabetes mellitus Hypertension Saline infusion Work-up for hyponatremia Antibiotics Keep the blood pressure blood sugar in check Avoid nephrotoxic's Anurag Bridges MD Jul 08, 2020 18:11
--- NOTE | 2020-07-08 19:21 | NUR ---
NURSE HAND-OFF REPORT: Important Events on Shift:[Weaned of of bipap, on 15 liters NR and tolerating well. Remdesiver given. ] Patient Status: [Full] Diet: [CCHO Med Soft] Pending Orders: [Please collect urine] Pending Results/Labs:[] Pending MD notification:[] Latest Vital Signs: Temperature 97.5 , Pulse 98 , B/P 107 /74 , Respiratory Rate 24 , O2 SAT 97 , Nasal Cannula, O2 Flow Rate 15.0 . Vital Sign Comment: [] EKG Rhythm: Sinus Rhythm Rhythm change?: N MD Notified?: - MD Response: Latest Plaza Fall Score: 30 Fall Risk: Medium Risk Safety Measures: Call light Within Reach, Bed Alarm Zone 3, Side Rails Side Rails x2, Bed position Low and Locked. Fall Precautions: Yellow Socks Report given to [Pending RN assigned ]. Addendum: 07/08/20 at 1928 by Lorin Mitchell RN Report given to Deya GAINES
--- NOTE | 2020-07-08 19:22 | NUR ---
NURSE NOTES: Received patient from LIANA Padgett under the care of Dr. Malcolm for Covid PNA and SOB. Patient noted with NKA and full code status. Patient is positive for Covid-19. Patient is alert and oriented x4 able to communicate needs with clear speech in [place]. Tolerating O2 settings via non-rebreather mask well, with no acute distress noted. Denies pain at this time. Will continue to monitor.
[2020-07-08 20:00] VITALS: BP 122/80
--- NOTE | 2020-07-08 21:00 | NUR ---
NURSE NOTES: Patient assisted to bedside commode, urine collected and sent to lab. Patient assisted back to bed. Will continue to monitor.
[2020-07-08 22:58] LABS: APPEARANCE,URINE CLEAR; BILIRUBIN, URINE NEGATIVE (NEGATIVE); COLOR,URINE PALE YELLOW; GLUCOSE, URINE (UA) 1+ (NEGATIVE); KETONES,URINE NEGATIVE (NEGATIVE); LEUKOCYTE ESTERASE ,URINE NEGATIVE (NEGATIVE); NITRITE,URINE NEGATIVE (NEGATIVE); PH,URINE 6.5 (4.5-8.0); PROTEIN,URINE 2+ (NEGATIVE); UROBILINOGEN,URINE 1 MG/DL (0.0-1.0)
[2020-07-09] VITALS: BP 126/80
--- NOTE | 2020-07-09 | NUR ---
NURSE NOTES: patient called and asked for extra blanket, provided. Vitals WNL, denies pain at this time. Will continue to monitor.
--- NOTE | 2020-07-09 03:00 | NUR ---
NURSE NOTES: Patient complained of room light being too bright. Covered light to dim but patient still remains visible to observation. Patient able to rest comfortably. Denies any pain or discomfort. Tolerating O2 settings well. Will continue to monitor.
[2020-07-09 04:00] VITALS: BP 135/82
--- NOTE | 2020-07-09 06:00 | NUR ---
NURSE NOTES: Patient asleep but easily arousable. Refused linen and gown change. Stated that she still feels clean and that she could change later. Patient rights respected. Accucheck performed and noted BS WNL. Will continue to monitor.
[2020-07-09] MEDS: NovoLOG Insulin Flexpen SUBQ SCH ×4 (06:29→21:36)
[2020-07-09 06:44] LABS: BASOPHILS % (AUTO) 0.3 % (0.0-2.0); EOSINOPHILS % (AUTO) 0.1 % (0.0-3.0); HEMOGLOBIN 12.3 G/DL (12.0-16.0); LYMPHOCYTES % (AUTO) 11.8 % (20.0-45.0); MEAN CORPUSCULAR VOLUME 86 FL (80-99); MONOCYTES % (AUTO) 7.4 % (1.0-10.0); NEUTROPHILS % (AUTO) 80.4 % (45.0-75.0); PLATELET COUNT 286 K/UL (150-450); RED BLOOD COUNT 4.28 M/UL (4.20-5.40); RED CELL DISTRIBUTION WIDTH 11.8 % (11.6-14.8); WHITE BLOOD COUNT 10.2 K/UL (4.8-10.8)
--- NOTE | 2020-07-09 07:00 | NUR ---
NURSE NOTES: Received patient report from LIANA Velasquez. Patient is AOx4, in bed asleep at this time. Patient on non rebreather 15L Satting at 95%. No pain or discomfort noted at this time. Patient with R hand 20G, patent and intact. Bed in lowest position, locked and side rails x2 up. Call light within reach.
[2020-07-09 07:04] LABS: ALANINE AMINOTRANSFERASE 25 U/L (12-78); ALBUMIN 2.6 G/DL (3.4-5.0); ALBUMIN/GLOBULIN RATIO 0.5 (1.0-2.7); ALKALINE PHOSPHATASE 45 U/L (46-116); ANION GAP 10 mmol/L (5-15); ASPARTATE AMINO TRANSFERASE 34 U/L (15-37); BILIRUBIN,DIRECT 0.2 MG/DL (0.0-0.3); BILIRUBIN,TOTAL 0.5 MG/DL (0.2-1.0); BLOOD UREA NITROGEN 18 mg/dL (7-18); CARBON DIOXIDE 27 MMOL/L (21-32); CHLORIDE 103 MMOL/L (98-107); CREATININE 0.8 MG/DL (0.55-1.30); POTASSIUM 4.1 MMOL/L (3.5-5.1); SODIUM 139 MMOL/L (136-145)
--- NOTE | 2020-07-09 07:17 | NUR ---
NURSE HAND-OFF REPORT: Important Events on Shift: Refused gown and linen change. Patient is continent of bowel and bladder. Patient Status: Stable Diet: CCHO mechanical soft Pending Orders: Pending Results/Labs: Pending MD notification: Latest Vital Signs: Temperature 98.7 , Pulse 81 , B/P 135 /82 , Respiratory Rate 24 , O2 SAT 97 , Nasal Cannula, O2 Flow Rate 100.0 . Vital Sign Comment: WNL EKG Rhythm: Sinus Rhythm Rhythm change?: N MD Notified?: - MD Response: Latest Plaza Fall Score: 30 Fall Risk: Medium Risk Safety Measures: Call light Within Reach, Bed Alarm Zone 3, Side Rails Side Rails x2, Bed position Low and Locked. Fall Precautions: Yellow Socks Report given to LIANA Negron.
[2020-07-09 08:00] VITALS: BP 119/81
[2020-07-09] MEDS: dexAMETHasone 10mg/ml Inj IV SCH (08:29)
[2020-07-09] MEDS: Azithromycin 250mg tab ORAL SCH (08:29)
[2020-07-09] MEDS: Docusate 100mg cap ORAL SCH ×3 (08:29→17:40)
[2020-07-09] MEDS: Enoxaparin 80mg Inj SUBQ SCH (08:31)
--- NOTE | 2020-07-09 10:15 | Nephrology Progress Note ---
Assessment/Plan Problem List: (1) Hyponatremia (2) Hypoxia (3) Pneumonitis (4) Acute respiratory failure due to COVID-19 (5) DMII (diabetes mellitus, type 2) (6) HTN (hypertension) Assessment Hyponatremia, improved with saline infusion COVID-19 infection Pneumonia, acute respiratory failure, hypoxia Diabetes mellitus Hypertension Plan July 09: Labs reviewed. Renal parameters and electrolytes stable. Continue per ID and pulmonary. Subjective ROS Limited/Unobtainable: No Constitutional: Reports: malaise Objective Objective Last 24 Hour Vital Signs Date Time Temp Pulse Resp B/P (MAP) Pulse Ox O2 Delivery O2 Flow Rate FiO2 07/09/20 08:00 86 07/09/20 08:00 Non-Rebreather 100.0 07/09/20 08:00 98.4 91 23 119/81 (94) 98 07/09/20 04:00 Non-Rebreather 100.0 07/09/20 04:00 98.7 81 24 135/82 (99) 97 07/09/20 03:31 81 07/09/20 00:00 Non-Rebreather 100.0 07/09/20 00:00 97.2 74 24 126/80 (95) 97 07/09/20 00:00 78 07/08/20 20:00 Non-Rebreather 100.0 07/08/20 20:00 85 07/08/20 20:00 96.6 82 24 122/80 (94) 97 07/08/20 19:20 97 Non-Rebreather 15.0 100 07/08/20 16:00 86 07/08/20 16:00 Non-Rebreather 100.0 07/08/20 16:00 97.5 98 24 107/74 (85) 97 07/08/20 14:01 97 Non-Rebreather 15.0 100 07/08/20 13:30 91 40 94 07/08/20 13:29 84 42 96 70 07/08/20 12:00 70 07/08/20 12:00 84 07/08/20 12:00 Bi-pap 70.0 07/08/20 12:00 98.1 88 24 111/72 (85) 98 07/08/20 11:05 84 39 94 70 Intake and Output 07/08/20 07/09/20 19:00 07:00 Intake Total 250 ml 120 ml Output Total 600 ml 400 ml Balance -350 ml -280 ml Intake Oral 250 ml 120 ml Output Urine Total 600 ml 400 ml # Voids 2 1 Current Medications Medications (Trade) Dose Ordered Sig/Marian Route PRN Reason Start Time Stop Time Status Last Admin Dose Admin Acetaminophen (Tylenol) 650 mg Q6H PRN ORAL For Pain 07/07/20 15:45 08/06/20 15:44 Acetaminophen (Tylenol) 650 mg Q6H PRN ORAL FEVER 07/07/20 16:15 08/06/20 16:14 Azithromycin (Zithromax) 500 mg DAILY ORAL 07/08/20 09:00 07/15/20 08:59 07/09/20 08:29 Dexamethasone Sodium Phosphate (Decadron 10mg/ ml Inj) 6 mg DAILY IV 07/08/20 09:00 07/17/20 09:01 07/09/20 08:29 Dextrose (Dextrose 50%) 25 ml Q30M PRN IV Hypoglycemia 07/07/20 15:45 10/05/20 15:44 Dextrose (Dextrose 50%) 50 ml Q30M PRN IV Hypoglycemia 07/07/20 15:45 10/05/20 15:44 Docusate Sodium (Colace) 100 mg THREE TIMES A DAY ORAL 07/09/20 09:00 08/08/20 08:59 07/09/20 08:29 Enoxaparin Sodium (Lovenox) 80 mg DAILY SUBQ 07/08/20 09:00 10/06/20 08:59 07/09/20 08:31 Famotidine (Pepcid) 20 mg BID ORAL 07/09/20 09:00 10/07/20 08:59 07/09/20 08:30 Insulin Aspart (NovoLOG) BEFORE MEALS AND HS SUBQ 07/07/20 16:30 10/05/20 16:29 07/08/20 21:00 Remdesivir 100 mg/ Sodium Chloride 250 ml @ 250 mls/hr Q24H IV 07/08/20 18:00 07/11/20 18:59 07/08/20 17:37 Laboratory Tests 07/08/20 21:37: POC Whole Blood Glucose 165H 07/08/20 22:00: Urine Color Pale yellow, Urine Appearance Clear, Urine pH 6.5, Urine Specific [place] 1.010, Urine Protein 2+H, Urine Glucose (UA) 1+H, Urine Ketones Negative, Urine Blood 1+H, Urine Nitrite Negative, Urine Bilirubin Negative, Urine Urobilinogen 1H, Urine Leukocyte Esterase Negative, Urine RBC 0-2, Urine WBC 0-2, Urine Squamous Epithelial Cells Few, Urine Bacteria Few, Urine Osmolality 402L, Urine Random Sodium < 20L 07/09/20 06:05: White Blood Count 10.2, Red Blood Count 4.28, Hemoglobin 12.3, Hematocrit 37.0, Mean Corpuscular Volume 86, Mean Corpuscular Hemoglobin 28.7, Mean Corpuscular Hemoglobin Concent 33.2, Red Cell Distribution Width 11.8, Platelet Count 286, Mean Platelet Volume 7.5, Neutrophils (%) (Auto) 80.4H, Lymphocytes (%) (Auto) 11.8L, Monocytes (%) (Auto) 7.4, Eosinophils (%) (Auto) 0.1, Basophils (%) (Auto) 0.3, Sodium Level 139, Potassium Level 4.1, Chloride Level 103, Carbon Dioxide Level 27, Anion Gap 10, Blood Urea Nitrogen 18, Creatinine 0.8, Estimat Glomerular Filtration Rate > 60, Glucose Level 129H, Calcium Level 9.0, Total Bilirubin 0.5, Direct Bilirubin 0.2, Aspartate Amino Transf (AST/SGOT) 34, Alanine Aminotransferase (ALT/SGPT) 25, Alkaline Phosphatase 45L, Total Protein 7.4, Albumin 2.6L, Globulin 4.8, Albumin/Globulin Ratio 0.5L 07/09/20 06:19: POC Whole Blood Glucose 128H Height (Feet): 5 Height (Inches): 3.00 Weight (Pounds): 162 General Appearance: no apparent distress EENT: other - On nonrebreather mask Cardiovascular: tachycardia Respiratory/Chest: decreased breath sounds Abdomen: distended - Patient Anurag Bridges MD Jul 09, 2020 10:15
--- NOTE | 2020-07-09 11:16 | Pulmonology Progress Note ---
Subjective Interval Events: None new Constitutional: Reports: no symptoms Gastrointestinal/Abdominal: Reports: no symptoms Psychiatric: Reports: no symptoms Skin: Reports: no symptoms Musculoskeletal: Reports: no symptoms Allergies: Coded Allergies: No Known Allergies (Unverified , 07/07/20) Objective Last 24 Hour Vital Signs Date Time Temp Pulse Resp B/P (MAP) Pulse Ox O2 Delivery O2 Flow Rate FiO2 07/09/20 08:00 86 07/09/20 08:00 Non-Rebreather 100.0 07/09/20 08:00 98.4 91 23 119/81 (94) 98 07/09/20 07:40 96 Non-Rebreather 15.0 100 07/09/20 04:00 Non-Rebreather 100.0 07/09/20 04:00 98.7 81 24 135/82 (99) 97 07/09/20 03:31 81 07/09/20 00:00 Non-Rebreather 100.0 07/09/20 00:00 97.2 74 24 126/80 (95) 97 07/09/20 00:00 78 07/08/20 20:00 Non-Rebreather 100.0 07/08/20 20:00 85 07/08/20 20:00 96.6 82 24 122/80 (94) 97 07/08/20 19:20 97 Non-Rebreather 15.0 100 07/08/20 16:00 86 07/08/20 16:00 Non-Rebreather 100.0 07/08/20 16:00 97.5 98 24 107/74 (85) 97 07/08/20 14:01 97 Non-Rebreather 15.0 100 07/08/20 13:30 91 40 94 07/08/20 13:29 84 42 96 70 07/08/20 12:00 70 07/08/20 12:00 84 07/08/20 12:00 Bi-pap 70.0 07/08/20 12:00 98.1 88 24 111/72 (85) 98 Intake and Output 07/08/20 07/09/20 19:00 07:00 Intake Total 250 ml 120 ml Output Total 600 ml 400 ml Balance -350 ml -280 ml Intake Oral 250 ml 120 ml Output Urine Total 600 ml 400 ml # Voids 2 1 General Appearance: no acute distress HEENT: normocephalic Respiratory: decreased breath sounds Cardiovascular: normal peripheral pulses Abdomen: normal bowel sounds Microbiology Date/Time Source Procedure Growth Status 07/07/20 17:15 Nasopharynx Coronavirus COVID-19 PCR (ABHI) - Final Complete 07/07/20 11:30 Blood Blood Culture - Preliminary NO GROWTH AFTER 24 HOURS Resulted 07/07/20 11:30 Blood Blood Culture - Preliminary NO GROWTH AFTER 24 HOURS Resulted Laboratory Tests 07/08/20 21:37: POC Whole Blood Glucose 165H 07/08/20 22:00: Urine Color Pale yellow, Urine Appearance Clear, Urine pH 6.5, Urine Specific [place] 1.010, Urine Protein 2+H, Urine Glucose (UA) 1+H, Urine Ketones Negative, Urine Blood 1+H, Urine Nitrite Negative, Urine Bilirubin Negative, Urine Urobilinogen 1H, Urine Leukocyte Esterase Negative, Urine RBC 0-2, Urine WBC 0-2, Urine Squamous Epithelial Cells Few, Urine Bacteria Few, Urine Osmolality 402L, Urine Random Sodium < 20L 07/09/20 06:05: White Blood Count 10.2, Red Blood Count 4.28, Hemoglobin 12.3, Hematocrit 37.0, Mean Corpuscular Volume 86, Mean Corpuscular Hemoglobin 28.7, Mean Corpuscular Hemoglobin Concent 33.2, Red Cell Distribution Width 11.8, Platelet Count 286, Mean Platelet Volume 7.5, Neutrophils (%) (Auto) 80.4H, Lymphocytes (%) (Auto) 11.8L, Monocytes (%) (Auto) 7.4, Eosinophils (%) (Auto) 0.1, Basophils (%) (Auto) 0.3, Sodium Level 139, Potassium Level 4.1, Chloride Level 103, Carbon Dioxide Level 27, Anion Gap 10, Blood Urea Nitrogen 18, Creatinine 0.8, Estimat Glomerular Filtration Rate > 60, Glucose Level 129H, Calcium Level 9.0, Total Bilirubin 0.5, Direct Bilirubin 0.2, Aspartate Amino Transf (AST/SGOT) 34, Alanine Aminotransferase (ALT/SGPT) 25, Alkaline Phosphatase 45L, Total Protein 7.4, Albumin 2.6L, Globulin 4.8, Albumin/Globulin Ratio 0.5L 07/09/20 06:19: POC Whole Blood Glucose 128H Current Medications Medications (Trade) Dose Ordered Sig/Marian Route PRN Reason Start Time Stop Time Status Last Admin Dose Admin Acetaminophen (Tylenol) 650 mg Q6H PRN ORAL For Pain 07/07/20 15:45 08/06/20 15:44 Acetaminophen (Tylenol) 650 mg Q6H PRN ORAL FEVER 07/07/20 16:15 08/06/20 16:14 Azithromycin (Zithromax) 500 mg DAILY ORAL 07/08/20 09:00 07/15/20 08:59 07/09/20 08:29 Dexamethasone Sodium Phosphate (Decadron 10mg/ ml Inj) 6 mg DAILY IV 07/08/20 09:00 07/17/20 09:01 07/09/20 08:29 Dextrose (Dextrose 50%) 25 ml Q30M PRN IV Hypoglycemia 07/07/20 15:45 10/05/20 15:44 Dextrose (Dextrose 50%) 50 ml Q30M PRN IV Hypoglycemia 07/07/20 15:45 10/05/20 15:44 Docusate Sodium (Colace) 100 mg THREE TIMES A DAY ORAL 07/09/20 09:00 08/08/20 08:59 07/09/20 08:29 Enoxaparin Sodium (Lovenox) 80 mg DAILY SUBQ 07/08/20 09:00 10/06/20 08:59 07/09/20 08:31 Famotidine (Pepcid) 20 mg BID ORAL 07/09/20 09:00 10/07/20 08:59 07/09/20 08:30 Insulin Aspart (NovoLOG) BEFORE MEALS AND HS SUBQ 07/07/20 16:30 10/05/20 16:29 07/08/20 21:00 Remdesivir 100 mg/ Sodium Chloride 250 ml @ 250 mls/hr Q24H IV 07/08/20 18:00 07/11/20 18:59 07/08/20 17:37 Assessment/Plan Assessment/Plan 1. COVID-19 pneumonia. 2. Hypoxemia. 3. Hypertension. 4. Diabetes mellitus. DISCUSSION: Defer remdesivir to ID. Continue Lovenox. Continue oxygen. Will wean down to nonrebreather mask from BiPAP. I will follow carefully. Discussed with bedside RN. Harvey Wiley Omar Syed MD Jul 09, 2020 11:16
[2020-07-09 12:00] VITALS: BP 113/74
--- NOTE | 2020-07-09 13:00 | NUR ---
RESPIRATORY NOTE: Attempted to wean pt off NRB to Venturi mask 55% fio2. Pt did not tolerate at this time. Spo2 decreased to 84%. RN made aware. Will continue to monitor and follow plan of care.
[2020-07-09 16:00] VITALS: BP 109/76
[2020-07-09] MEDS: Maintenance Dose:Remdesivir 100mg/NS 230ml x 4 Doses IV SCH ×2 (17:40)
--- NOTE | 2020-07-09 19:15 | NUR ---
NURSE HAND-OFF REPORT: Important Events on Shift:Na Patient Status: Stable Diet: CCHO (M) Pending Orders: NA Pending Results/Labs:NA Pending MD notification:NA Latest Vital Signs: Temperature 97.7 , Pulse 96 , B/P 109 /76 , Respiratory Rate 22 , O2 SAT 97 , Nasal Cannula, O2 Flow Rate 100.0 . Vital Sign Comment: Stable EKG Rhythm: Sinus Rhythm Rhythm change?: N MD Notified?: - MD Response: Latest Plaza Fall Score: 30 Fall Risk: Medium Risk Safety Measures: Call light Within Reach, Bed Alarm Zone 3, Side Rails Side Rails x2, Bed position Low and Locked. Fall Precautions: Yellow Socks Report given to LIANA Echeverria.
[2020-07-09 20:00] VITALS: BP 126/91
--- NOTE | 2020-07-09 21:05 | Consultation ---
History of Present Illness General Chief Complaint: Dyspnea/Respdistress Referring physician: Bronson Phipps Reason for Consultation: COVID 19 viral pneumonia Present Illness HPI 64-year-old female who came to the hospital with shortness of breath. The patient has tested positive for COVID-19, now on remdesivir and dexamethasone, patient is saturating well on nonrebreather mask. Previously, she was on BiPAP. Troponi negative, BNP 308. No documented hx of CT or PCI. Echo pending. CXR positive for infiltrative disease consistent with viral pna. Allergies: Coded Allergies: No Known Allergies (Unverified , 07/07/20) Medication History Scheduled Metformin Hcl* (Metformin Hcl*), Unknown Dose ORAL DAILY, (Reported) Valsartan (Diovan), Unknown Dose ORAL DAILY, (Reported) Patient History Limited by: medical condition History Provided By: Medical Record Healthcare decision maker Resuscitation status Advanced Directive on File Physical Exam Last 24 Hour Vital Signs Date Time Temp Pulse Resp B/P (MAP) Pulse Ox O2 Delivery O2 Flow Rate FiO2 07/09/20 19:35 97 Non-Rebreather 15.0 100 07/09/20 16:00 97.7 96 22 109/76 (87) 97 07/09/20 16:00 Non-Rebreather 100.0 07/09/20 16:00 76 07/09/20 12:00 98.3 90 22 113/74 (87) 97 07/09/20 12:00 87 07/09/20 12:00 Non-Rebreather 100.0 07/09/20 08:00 86 07/09/20 08:00 Non-Rebreather 100.0 07/09/20 08:00 98.4 91 23 119/81 (94) 98 07/09/20 07:40 96 Non-Rebreather 15.0 100 07/09/20 04:00 Non-Rebreather 100.0 07/09/20 04:00 98.7 81 24 135/82 (99) 97 07/09/20 03:31 81 07/09/20 00:00 Non-Rebreather 100.0 07/09/20 00:00 97.2 74 24 126/80 (95) 97 07/09/20 00:00 78 Intake and Output 07/08/20 07/09/20 19:00 07:00 Intake Total 250 ml 120 ml Output Total 600 ml 400 ml Balance -350 ml -280 ml Intake Oral 250 ml 120 ml Output Urine Total 600 ml 400 ml # Voids 2 1 Laboratory Tests Test 07/08/20 21:37 07/08/20 22:00 07/09/20 06:05 07/09/20 06:19 POC Whole Blood Glucose 165 MG/DL (74-106) H 128 MG/DL (74-106) H Urine Color Pale yellow Urine Appearance Clear Urine pH 6.5 (4.5-8.0) Urine Specific [place] 1.010 (1.005-1.035) Urine Protein 2+ (NEGATIVE) H Urine Glucose (UA) 1+ (NEGATIVE) H Urine Ketones Negative (NEGATIVE) Urine Blood 1+ (NEGATIVE) H Urine Nitrite Negative (NEGATIVE) Urine Bilirubin Negative (NEGATIVE) Urine Urobilinogen 1 MG/DL (0.0-1.0) H Urine Leukocyte Esterase Negative (NEGATIVE) Urine RBC 0-2 /HPF (0 - 2) Urine WBC 0-2 /HPF (0 - 2) Urine Squamous Epithelial Cells Few /LPF (NONE/OCC) Urine Bacteria Few /HPF (NONE) Urine Osmolality 402 mOsm/kg (429-449) L Urine Random Sodium < 20 mmol/L (20-110) L White Blood Count 10.2 K/UL (4.8-10.8) Red Blood Count 4.28 M/UL (4.20-5.40) Hemoglobin 12.3 G/DL (12.0-16.0) Hematocrit 37.0 % (37.0-47.0) Mean Corpuscular Volume 86 FL (80-99) Mean Corpuscular Hemoglobin 28.7 PG (27.0-31.0) Mean Corpuscular Hemoglobin Concent 33.2 G/DL (32.0-36.0) Red Cell Distribution Width 11.8 % (11.6-14.8) Platelet Count 286 K/UL (150-450) Mean Platelet Volume 7.5 FL (6.5-10.1) Neutrophils (%) (Auto) 80.4 % (45.0-75.0) H Lymphocytes (%) (Auto) 11.8 % (20.0-45.0) L Monocytes (%) (Auto) 7.4 % (1.0-10.0) Eosinophils (%) (Auto) 0.1 % (0.0-3.0) Basophils (%) (Auto) 0.3 % (0.0-2.0) Sodium Level 139 MMOL/L (136-145) Potassium Level 4.1 MMOL/L (3.5-5.1) Chloride Level 103 MMOL/L (98-107) Carbon Dioxide Level 27 MMOL/L (21-32) Anion Gap 10 mmol/L (5-15) Blood Urea Nitrogen 18 mg/dL (7-18) Creatinine 0.8 MG/DL (0.55-1.30) Estimat Glomerular Filtration Rate > 60 mL/min (>60) Glucose Level 129 MG/DL (74-106) H Calcium Level 9.0 MG/DL (8.5-10.1) Total Bilirubin 0.5 MG/DL (0.2-1.0) Direct Bilirubin 0.2 MG/DL (0.0-0.3) Aspartate Amino Transf (AST/SGOT) 34 U/L (15-37) Alanine Aminotransferase (ALT/SGPT) 25 U/L (12-78) Alkaline Phosphatase 45 U/L (46-116) L Total Protein 7.4 G/DL (6.4-8.2) Albumin 2.6 G/DL (3.4-5.0) L Globulin 4.8 g/dL Albumin/Globulin Ratio 0.5 (1.0-2.7) L Height (Feet): 5 Height (Inches): 3.00 Weight (Pounds): 162 Medications Current Medications Medications (Trade) Dose Ordered Sig/Marian Route PRN Reason Start Time Stop Time Status Last Admin Dose Admin Acetaminophen (Tylenol) 650 mg Q6H PRN ORAL For Pain 07/07/20 15:45 08/06/20 15:44 Acetaminophen (Tylenol) 650 mg Q6H PRN ORAL FEVER 07/07/20 16:15 08/06/20 16:14 Azithromycin (Zithromax) 500 mg DAILY ORAL 07/08/20 09:00 07/15/20 08:59 07/09/20 08:29 Dexamethasone Sodium Phosphate (Decadron 10mg/ ml Inj) 6 mg DAILY IV 07/08/20 09:00 07/17/20 09:01 07/09/20 08:29 Dextrose (Dextrose 50%) 25 ml Q30M PRN IV Hypoglycemia 07/07/20 15:45 10/05/20 15:44 Dextrose (Dextrose 50%) 50 ml Q30M PRN IV Hypoglycemia 07/07/20 15:45 10/05/20 15:44 Docusate Sodium (Colace) 100 mg THREE TIMES A DAY ORAL 07/09/20 09:00 08/08/20 08:59 07/09/20 17:40 Enoxaparin Sodium (Lovenox) 80 mg DAILY SUBQ 07/08/20 09:00 10/06/20 08:59 07/09/20 08:31 Famotidine (Pepcid) 20 mg BID ORAL 07/09/20 09:00 10/07/20 08:59 07/09/20 17:40 Insulin Aspart (NovoLOG) BEFORE MEALS AND HS SUBQ 07/07/20 16:30 10/05/20 16:29 07/09/20 16:30 Remdesivir 100 mg/ Sodium Chloride 250 ml @ 250 mls/hr Q24H IV 07/08/20 18:00 07/11/20 18:59 07/09/20 17:40 Assessment/Plan Assessment/Plan: 1. COVID-19 viral PNA on remdesivir and dexamethasone 2. Respiratory failure 2/2 acute PNA NRB mask 3. GERD 4. DMII Echo pending to assess LV function and r/o HF as contributing factor to respiratory failure. BNP mildly elevated 308. Troponin negative. SBP and HR in normal territory, currently stable. Further recs to follow. Blanca Lobato PA-C Jul 09, 2020 21:05
--- NOTE | 2020-07-09 21:48 | NUR ---
report given to LIANA Negron and handed off care of patient at 2148. Unfortunately, due to critical condition of another patient, this RN was unable to assess this patient or see the patient. However, LIANA Bone did go into patients room to assist with commode so aware that patient is doing ok during critical care of my other patient. This RN followed critical patient over to ICU where I will continue the rest of my shift. 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 Also updated ICU riveting machine operator automatic of situation.
--- NOTE | 2020-07-09 21:48 | NUR ---
NURSE NOTES: Received report from Jarett Echeverria RN. Pt is seen lying in bed in semi- hanson's position. Pt is alert oriented x 4. Pt denies pain. Pt has Right hand g 20 intact and patent. Pt is ambulatory with assist. Pt BP 126/91. On NRB at 15 L o2 sat- 98%. Pt is independent with assist. Call light within reach. Continue to plan of care. Continue to plan of care.
--- NOTE | 2020-07-09 23:42 | NUR ---
NURSE NOTES: VS WNL, tried to wean pt down to venturi with RT, but o2 sat went down to 88-89%. Put back on NRB at 15L. Will Continue to plan of care.
[2020-07-10] VITALS: BP 136/72
[2020-07-10 04:00] VITALS: BP 133/75
[2020-07-10] MEDS: NovoLOG Insulin Flexpen SUBQ SCH ×4 (05:49→20:36)
--- NOTE | 2020-07-10 05:54 | NUR ---
NURSE NOTES: Assist to bed side commode. O2 sat at rest- 93%- 95%. Still on NRB, unable to wean off the NRB pt is desaturating. Not on distress. Change linen. Continue to plan of care.
[2020-07-10 06:35] LABS: BASOPHILS % (AUTO) 0.5 % (0.0-2.0); HEMATOCRIT 37.5 % (37.0-47.0); HEMOGLOBIN 12.4 G/DL (12.0-16.0); LYMPHOCYTES % (AUTO) 14.2 % (20.0-45.0); MEAN CORPUSCULAR VOLUME 87 FL (80-99); NEUTROPHILS % (AUTO) 77.4 % (45.0-75.0); PLATELET COUNT 324 K/UL (150-450); RED BLOOD COUNT 4.29 M/UL (4.20-5.40); RED CELL DISTRIBUTION WIDTH 11.9 % (11.6-14.8)
[2020-07-10 06:59] LABS: ALANINE AMINOTRANSFERASE 25 U/L (12-78); ALBUMIN 2.7 G/DL (3.4-5.0); ALBUMIN/GLOBULIN RATIO 0.6 (1.0-2.7); ALKALINE PHOSPHATASE 50 U/L (46-116); ANION GAP 8 mmol/L (5-15); ASPARTATE AMINO TRANSFERASE 29 U/L (15-37); BILIRUBIN,DIRECT 0.1 MG/DL (0.0-0.3); BILIRUBIN,TOTAL 0.6 MG/DL (0.2-1.0); BLOOD UREA NITROGEN 17 mg/dL (7-18); CALCIUM 9.1 MG/DL (8.5-10.1); CARBON DIOXIDE 29 MMOL/L (21-32); CHLORIDE 105 MMOL/L (98-107); CREATININE 0.7 MG/DL (0.55-1.30); POTASSIUM 4.1 MMOL/L (3.5-5.1); SODIUM 142 MMOL/L (136-145)
--- NOTE | 2020-07-10 07:03 | NUR ---
NURSE HAND-OFF REPORT: Important Events on Shift: Unable to wean pt, desaturating at 88-89 on venturi mask. Patient Status: Guarded Diet: Mech soft consistent carb Pending Orders: None Pending Results/Labs: None Pending MD notification: none Latest Vital Signs: Temperature 97.3 , Pulse 100 , B/P 133 /75 , Respiratory Rate 22 , O2 SAT 90 , Nasal Cannula, O2 Flow Rate 15.0 . Vital Sign Comment: WNL EKG Rhythm: Sinus Rhythm Rhythm change?: N MD Notified?: - MD Response: Latest Plaza Fall Score: 30 Fall Risk: Medium Risk Safety Measures: Call light Within Reach, Bed Alarm Zone 3, Side Rails Side Rails x2, Bed position Low and Locked. Fall Precautions: Yellow Socks Report given to [Radha Reyes].
--- NOTE | 2020-07-10 07:25 | NUR ---
NURSE NOTES: Received report from LIANA Ramon. Patient in bed resting, no active s/s cardiac distress noted at this time. Patient SOB, RR 24, O2 sat 97%. Patient AOx4, ST with HR 114, patient on non-rebreather 15L, O2 sat 97%. IV on right hand 20G, asymptomatic, patent, intact. Endorsed patient able to ambulate steady gait, bedside commode at the bedside, educated to call staff when move out of bed. Bed in lowest position, side rails upx3, call light within reach, bed alarm on, Will continue to monitor.
[2020-07-10 08:00] VITALS: BP 140/89
[2020-07-10] MEDS: Enoxaparin 80mg Inj SUBQ SCH (08:26)
[2020-07-10] MEDS: Azithromycin 250mg tab ORAL SCH (08:26)
[2020-07-10] MEDS: Docusate 100mg cap ORAL SCH ×3 (08:27→17:04)
[2020-07-10] MEDS: dexAMETHasone 10mg/ml Inj IV SCH (08:27)
--- NOTE | 2020-07-10 10:17 | NUR ---
CASE MANAGEMENT:REVIEW 07/10/20 SI: COVID PNEUMONIA 97.0 114 22 140/89 94% ON 15L/100%/NRB WBC+12.0 IS: IV REMDESIVIR Q24 PEPCID PO BID LOVENOX SQ QD IV DECADRON QD AZITHROMAX PO QD : STEP DOWN UNIT DCP: FROM HOME
--- NOTE | 2020-07-10 10:30 | Nephrology Progress Note ---
Assessment/Plan Problem List: (1) Hyponatremia (2) Hypoxia (3) Pneumonitis (4) Acute respiratory failure due to COVID-19 (5) DMII (diabetes mellitus, type 2) (6) HTN (hypertension) Assessment Hyponatremia, improved with saline infusion COVID-19 infection Pneumonia, acute respiratory failure, hypoxia Diabetes mellitus Hypertension Plan July 10: Labs reviewed. Renal parameters electrolytes stable. Continue per consultants. July 09: Labs reviewed. Renal parameters and electrolytes stable. Continue per ID and pulmonary. Subjective ROS Limited/Unobtainable: No Constitutional: Reports: malaise Objective Objective Last 24 Hour Vital Signs Date Time Temp Pulse Resp B/P (MAP) Pulse Ox O2 Delivery O2 Flow Rate FiO2 07/10/20 08:00 94 07/10/20 08:00 97.0 114 22 140/89 (106) 94 07/10/20 08:00 Non-Rebreather 15.0 07/10/20 04:00 97.3 100 22 133/75 (94) 90 07/10/20 04:00 Non-Rebreather 15.0 07/10/20 03:42 66 07/10/20 00:00 97.7 81 19 136/72 (93) 98 07/10/20 00:00 Non-Rebreather 15.0 07/10/20 00:00 67 07/09/20 20:00 97.3 78 20 126/91 (103) 98 07/09/20 20:00 81 07/09/20 20:00 Non-Rebreather 100.0 07/09/20 19:35 97 Non-Rebreather 15.0 100 07/09/20 16:00 97.7 96 22 109/76 (87) 97 07/09/20 16:00 Non-Rebreather 100.0 07/09/20 16:00 76 07/09/20 12:00 98.3 90 22 113/74 (87) 97 07/09/20 12:00 87 07/09/20 12:00 Non-Rebreather 100.0 Intake and Output 07/09/20 07/10/20 19:00 07:00 Intake Total 570 ml 500 ml Output Total 600 ml Balance -30 ml 500 ml Intake Oral 320 ml 500 ml IV Total 250 ml Output Urine Total 600 ml # Voids 2 2 # Bowel Movements 1 Current Medications Medications (Trade) Dose Ordered Sig/Marian Route PRN Reason Start Time Stop Time Status Last Admin Dose Admin Acetaminophen (Tylenol) 650 mg Q6H PRN ORAL For Pain 07/07/20 15:45 08/06/20 15:44 Acetaminophen (Tylenol) 650 mg Q6H PRN ORAL FEVER 07/07/20 16:15 08/06/20 16:14 Azithromycin (Zithromax) 500 mg DAILY ORAL 07/08/20 09:00 07/15/20 08:59 07/10/20 08:26 Dexamethasone Sodium Phosphate (Decadron 10mg/ ml Inj) 6 mg DAILY IV 07/08/20 09:00 07/17/20 09:01 07/10/20 08:27 Dextrose (Dextrose 50%) 25 ml Q30M PRN IV Hypoglycemia 07/07/20 15:45 10/05/20 15:44 Dextrose (Dextrose 50%) 50 ml Q30M PRN IV Hypoglycemia 07/07/20 15:45 10/05/20 15:44 Docusate Sodium (Colace) 100 mg THREE TIMES A DAY ORAL 07/09/20 09:00 08/08/20 08:59 07/10/20 08:27 Enoxaparin Sodium (Lovenox) 80 mg DAILY SUBQ 07/08/20 09:00 10/06/20 08:59 07/10/20 08:26 Famotidine (Pepcid) 20 mg BID ORAL 07/09/20 09:00 10/07/20 08:59 07/10/20 08:26 Insulin Aspart (NovoLOG) BEFORE MEALS AND HS SUBQ 07/07/20 16:30 10/05/20 16:29 07/09/20 21:36 Remdesivir 100 mg/ Sodium Chloride 250 ml @ 250 mls/hr Q24H IV 07/08/20 18:00 07/11/20 18:59 07/09/20 17:40 Laboratory Tests 07/09/20 21:28: POC Whole Blood Glucose [Pending] 07/10/20 04:00: White Blood Count 12.0H, Red Blood Count 4.29, Hemoglobin 12.4, Hematocrit 37.5, Mean Corpuscular Volume 87, Mean Corpuscular Hemoglobin 28.8, Mean Corpuscular Hemoglobin Concent 33.0, Red Cell Distribution Width 11.9, Platelet Count 324, Mean Platelet Volume 6.4L, Neutrophils (%) (Auto) 77.4H, Lymphocytes (%) (Auto) 14.2L, Monocytes (%) (Auto) 8.0, Eosinophils (%) (Auto) 0.0, Basophils (%) (Auto) 0.5, Sodium Level 142, Potassium Level 4.1, Chloride Level 105, Carbon Dioxide Level 29, Anion Gap 8, Blood Urea Nitrogen 17, Creatinine 0.7, Estimat Glomerular Filtration Rate > 60, Glucose Level 95, Calcium Level 9.1, Total Bilirubin 0.6, Direct Bilirubin 0.1, Aspartate Amino Transf (AST/SGOT) 29, Al anine Aminotransferase (ALT/SGPT) 25, Alkaline Phosphatase 50, Total Protein 7.5, Albumin 2.7L, Globulin 4.8, Albumin/Globulin Ratio 0.6L Height (Feet): 5 Height (Inches): 3.00 Weight (Pounds): 162 General Appearance: no apparent distress EENT: other - Nonrebreather mask Cardiovascular: tachycardia Respiratory/Chest: decreased breath sounds Abdomen: distended Anurag Bridges MD Jul 10, 2020 10:30
--- NOTE | 2020-07-10 10:54 | Pulmonology Progress Note ---
Subjective ROS Limited/Unobtainable: No Interval Events: None new Constitutional: Reports: no symptoms Gastrointestinal/Abdominal: Reports: no symptoms Psychiatric: Reports: no symptoms Skin: Reports: no symptoms Musculoskeletal: Reports: no symptoms Allergies: Coded Allergies: No Known Allergies (Unverified , 07/07/20) Objective Last 24 Hour Vital Signs Date Time Temp Pulse Resp B/P (MAP) Pulse Ox O2 Delivery O2 Flow Rate FiO2 07/10/20 08:00 94 07/10/20 08:00 97.0 114 22 140/89 (106) 94 07/10/20 08:00 Non-Rebreather 15.0 07/10/20 04:00 97.3 100 22 133/75 (94) 90 07/10/20 04:00 Non-Rebreather 15.0 07/10/20 03:42 66 07/10/20 00:00 97.7 81 19 136/72 (93) 98 07/10/20 00:00 Non-Rebreather 15.0 07/10/20 00:00 67 07/09/20 20:00 97.3 78 20 126/91 (103) 98 07/09/20 20:00 81 07/09/20 20:00 Non-Rebreather 100.0 07/09/20 19:35 97 Non-Rebreather 15.0 100 07/09/20 16:00 97.7 96 22 109/76 (87) 97 07/09/20 16:00 Non-Rebreather 100.0 07/09/20 16:00 76 07/09/20 12:00 98.3 90 22 113/74 (87) 97 07/09/20 12:00 87 07/09/20 12:00 Non-Rebreather 100.0 Intake and Output 07/09/20 07/10/20 19:00 07:00 Intake Total 570 ml 500 ml Output Total 600 ml Balance -30 ml 500 ml Intake Oral 320 ml 500 ml IV Total 250 ml Output Urine Total 600 ml # Voids 2 2 # Bowel Movements 1 General Appearance: no acute distress HEENT: normocephalic Respiratory: decreased breath sounds Cardiovascular: normal peripheral pulses Abdomen: normal bowel sounds Microbiology Date/Time Source Procedure Growth Status 07/07/20 17:15 Nasopharynx Coronavirus COVID-19 PCR (ABHI) - Final Complete 07/07/20 11:30 Blood Blood Culture - Preliminary NO GROWTH AFTER 24 HOURS Resulted 07/07/20 11:30 Blood Blood Culture - Preliminary NO GROWTH AFTER 24 HOURS Resulted Laboratory Tests 07/09/20 21:28: POC Whole Blood Glucose [Pending] 07/10/20 04:00: White Blood Count 12.0H, Red Blood Count 4.29, Hemoglobin 12.4, Hematocrit 37.5, Mean Corpuscular Volume 87, Mean Corpuscular Hemoglobin 28.8, Mean Corpuscular Hemoglobin Concent 33.0, Red Cell Distribution Width 11.9, Platelet Count 324, Mean Platelet Volume 6.4L, Neutrophils (%) (Auto) 77.4H, Lymphocytes (%) (Auto) 14.2L, Monocytes (%) (Auto) 8.0, Eosinophils (%) (Auto) 0.0, Basophils (%) (Auto) 0.5, Sodium Level 142, Potassium Level 4.1, Chloride Level 105, Carbon Dioxide Level 29, Anion Gap 8, Blood Urea Nitrogen 17, Creatinine 0.7, Estimat Glomerular Filtration Rate > 60, Glucose Level 95, Calcium Level 9.1, Total Bilirubin 0.6, Direct Bilirubin 0.1, Aspartate Amino Transf (AST/SGOT) 29, Alanine Aminotransferase (ALT/SGPT) 25, Alkaline Phosphatase 50, Total Protein 7.5, Albumin 2.7L, Globulin 4.8, Albumin/Globulin Ratio 0.6L Current Medications Medications (Trade) Dose Ordered Sig/Marian Route PRN Reason Start Time Stop Time Status Last Admin Dose Admin Acetaminophen (Tylenol) 650 mg Q6H PRN ORAL For Pain 07/07/20 15:45 08/06/20 15:44 Acetaminophen (Tylenol) 650 mg Q6H PRN ORAL FEVER 07/07/20 16:15 08/06/20 16:14 Azithromycin (Zithromax) 500 mg DAILY ORAL 07/08/20 09:00 07/15/20 08:59 07/10/20 08:26 Dexamethasone Sodium Phosphate (Decadron 10mg/ ml Inj) 6 mg DAILY IV 07/08/20 09:00 07/17/20 09:01 07/10/20 08:27 Dextrose (Dextrose 50%) 25 ml Q30M PRN IV Hypoglycemia 07/07/20 15:45 10/05/20 15:44 Dextrose (Dextrose 50%) 50 ml Q30M PRN IV Hypoglycemia 07/07/20 15:45 10/05/20 15:44 Docusate Sodium (Colace) 100 mg THREE TIMES A DAY ORAL 07/09/20 09:00 08/08/20 08:59 07/10/20 08:27 Enoxaparin Sodium (Lovenox) 80 mg DAILY SUBQ 07/08/20 09:00 10/06/20 08:59 07/10/20 08:26 Famotidine (Pepcid) 20 mg BID ORAL 07/09/20 09:00 10/07/20 08:59 07/10/20 08:26 Insulin Aspart (NovoLOG) BEFORE MEALS AND HS SUBQ 07/07/20 16:30 10/05/20 16:29 07/09/20 21:36 Remdesivir 100 mg/ Sodium Chloride 250 ml @ 250 mls/hr Q24H IV 07/08/20 18:00 07/11/20 18:59 07/09/20 17:40 Assessment/Plan Assessment/Plan 1. COVID-19 pneumonia. - on remdexsivir and azithromycin 2. Hypoxemia. - on decadron - on NRB saturating at 95% - wean as tolerated 3. Hypertension. 4. Diabetes mellitus. 5. DVT ppx - on Lovenox Discussed with bedside RN. The care for this patient was discussed with my supervising physician Time spent for this case was approximately 31 minutes Milton Howard Jul 10, 2020 10:54
[2020-07-10 12:00] VITALS: BP 125/65
--- NOTE | 2020-07-10 13:36 | General Progress Note ---
Subjective Allergies: Coded Allergies: No Known Allergies (Unverified , 07/07/20) Objective Last 24 Hour Vital Signs Date Time Temp Pulse Resp B/P (MAP) Pulse Ox O2 Delivery O2 Flow Rate FiO2 07/10/20 12:00 97.7 96 22 125/65 (85) 92 07/10/20 12:00 Non-Rebreather 15.0 07/10/20 08:00 94 07/10/20 08:00 97.0 114 22 140/89 (106) 94 07/10/20 08:00 Non-Rebreather 15.0 07/10/20 07:03 96 Non-Rebreather 15.0 100 07/10/20 04:00 97.3 100 22 133/75 (94) 90 07/10/20 04:00 Non-Rebreather 15.0 07/10/20 03:42 66 07/10/20 00:00 97.7 81 19 136/72 (93) 98 07/10/20 00:00 Non-Rebreather 15.0 07/10/20 00:00 67 07/09/20 20:00 97.3 78 20 126/91 (103) 98 07/09/20 20:00 81 07/09/20 20:00 Non-Rebreather 100.0 07/09/20 19:35 97 Non-Rebreather 15.0 100 07/09/20 16:00 97.7 96 22 109/76 (87) 97 07/09/20 16:00 Non-Rebreather 100.0 07/09/20 16:00 76 Intake and Output 07/09/20 07/10/20 19:00 07:00 Intake Total 570 ml 500 ml Output Total 600 ml Balance -30 ml 500 ml Intake Oral 320 ml 500 ml IV Total 250 ml Output Urine Total 600 ml # Voids 2 2 # Bowel Movements 1 Laboratory Tests 07/09/20 21:28: POC Whole Blood Glucose [Pending] 07/10/20 04:00: White Blood Count 12.0H, Red Blood Count 4.29, Hemoglobin 12.4, Hematocrit 37.5, Mean Corpuscular Volume 87, Mean Corpuscular Hemoglobin 28.8, Mean Corpuscular Hemoglobin Concent 33.0, Red Cell Distribution Width 11.9, Platelet Count 324, Mean Platelet Volume 6.4L, Neutrophils (%) (Auto) 77.4H, Lymphocytes (%) (Auto) 14.2L, Monocytes (%) (Auto) 8.0, Eosinophils (%) (Auto) 0.0, Basophils (%) (Auto) 0.5, Sodium Level 142, Potassium Level 4.1, Chloride Level 105, Carbon Dioxide Level 29, Anion Gap 8, Blood Urea Nitrogen 17, Creatinine 0.7, Estimat Glomerular Filtration Rate > 60, Glucose Level 95, Calcium Level 9.1, Total Bilirubin 0.6, Direct Bilirubin 0.1, Aspartate Amino Transf (AST/SGOT) 29, Alanine Aminotransferase (ALT/SGPT) 25, Alkaline Phosphatase 50, Total Protein 7.5, Albumin 2.7L, Globulin 4.8, Albumin/Globulin Ratio 0.6L 07/10/20 10:55: POC Whole Blood Glucose [Pending] Height (Feet): 5 Height (Inches): 3.00 Weight (Pounds): 162 Assessment/Plan Assessment/Plan: S, O: I am feeling better, seems comfortable, no severe pain PHYSICAL EXAMINATION: HEAD AND NECK: Atraumatic and normocephalic. CHEST: Diffuse bronchial breathing sounds. HEART: S1 and S2. Regular rate and rhythm. ABDOMEN: Soft. No organomegaly. MUSCULOSKELETAL: No gross lateralized motor deficit. DIAGNOSTIC DATA: Chest x-ray shows bilateral pneumonia. ASSESSMENT: 1. COVID-19 pneumonia. 2. Hypoxemic respiratory failure. 3. Diabetes type 2. 4. Hyponatremia 5. GI and DVT prophylaxis. PLAN OF CARE: I left a for patient's brother in law, per her request. on 1334 hours on Jul 10 Agreed with current management. Gail Malcolm MD Jul 10, 2020 13:36
--- NOTE | 2020-07-10 15:31 | Infectious Diseases Prog Note ---
Assessment/Plan Problems: (1) COVID-19 virus infection Assessment & Plan: complicated with pneumonia and hypoxemia, continue remdisvir for 5 days, monitor PCR test to confirm, keep patient in enhance droplet isolation (2) Dyspnea due to COVID-19 Assessment & Plan: continue respiratory support with BiPAP and titrate as needed, monitor chest x-ray and ABG (3) Pneumonia due to COVID-19 virus Assessment & Plan: continue Remdisvir IV for 5 days, send sputum culture if she produces any, monitor chest x-ray (4) Acute respiratory failure due to COVID-19 Assessment & Plan: suspect due to pneumonitis from COV ID 19, continue respiratory support with close monitor of ABG and chest x-ray Subjective Constitutional: Reports: no symptoms HEENT: Reports: no symptoms Respiratory: Reports: no symptoms Cardiovascular: Reports: no symptoms Gastrointestinal/Abdominal: Reports: no symptoms Genitourinary: Reports: no symptoms Neurologic: Reports: no symptoms Skin: Reports: no symptoms Allergies: Coded Allergies: No Known Allergies (Unverified , 07/07/20) Objective Last 24 Hour Vital Signs Date Time Temp Pulse Resp B/P (MAP) Pulse Ox O2 Delivery O2 Flow Rate FiO2 07/10/20 12:00 87 07/10/20 12:00 97.7 96 22 125/65 (85) 92 07/10/20 12:00 Non-Rebreather 15.0 07/10/20 08:00 94 07/10/20 08:00 97.0 114 22 140/89 (106) 94 07/10/20 08:00 Non-Rebreather 15.0 07/10/20 07:03 96 Non-Rebreather 15.0 100 07/10/20 04:00 97.3 100 22 133/75 (94) 90 07/10/20 04:00 Non-Rebreather 15.0 07/10/20 03:42 66 07/10/20 00:00 97.7 81 19 136/72 (93) 98 07/10/20 00:00 Non-Rebreather 15.0 07/10/20 00:00 67 07/09/20 20:00 97.3 78 20 126/91 (103) 98 07/09/20 20:00 81 07/09/20 20:00 Non-Rebreather 100.0 07/09/20 19:35 97 Non-Rebreather 15.0 100 07/09/20 16:00 97.7 96 22 109/76 (87) 97 07/09/20 16:00 Non-Rebreather 100.0 07/09/20 16:00 76 Height (Feet): 5 Height (Inches): 3.00 Weight (Pounds): 162 General Appearance: WD/WN, no acute distress HEENT: normocephalic, atraumatic, anicteric, mucous membranes moist, PERRL Respiratory/Chest: chest wall non-tender, normal breath sounds, no respiratory distress, no accessory muscle use, decreased breath sounds Cardiovascular: normal peripheral pulses, normal rate, regular rhythm, no gall op/murmur, no JVD Abdomen: normal bowel sounds, soft, non tender, no organomegaly Extremities: no cyanosis, no clubbing Skin: no rash, no lesions Microbiology Date/Time Source Procedure Growth Status 07/07/20 17:15 Nasopharynx Coronavirus COVID-19 PCR (ABHI) - Final Complete Laboratory Tests Test 07/09/20 21:28 07/10/20 04:00 07/10/20 10:55 POC Whole Blood Glucose Pending Pending White Blood Count 12.0 K/UL (4.8-10.8) H Red Blood Count 4.29 M/UL (4.20-5.40) Hemoglobin 12.4 G/DL (12.0-16.0) Hematocrit 37.5 % (37.0-47.0) Mean Corpuscular Volume 87 FL (80-99) Mean Corpuscular Hemoglobin 28.8 PG (27.0-31.0) Mean Corpuscular Hemoglobin Concent 33.0 G/DL (32.0-36.0) Red Cell Distribution Width 11.9 % (11.6-14.8) Platelet Count 324 K/UL (150-450) Mean Platelet Volume 6.4 FL (6.5-10.1) L Neutrophils (%) (Auto) 77.4 % (45.0-75.0) H Lymphocytes (%) (Auto) 14.2 % (20.0-45.0) L Monocytes (%) (Auto) 8.0 % (1.0-10.0) Eosinophils (%) (Auto) 0.0 % (0.0-3.0) Basophils (%) (Auto) 0.5 % (0.0-2.0) Sodium Level 142 MMOL/L (136-145) Potassium Level 4.1 MMOL/L (3.5-5.1) Chloride Level 105 MMOL/L (98-107) Carbon Dioxide Level 29 MMOL/L (21-32) Anion Gap 8 mmol/L (5-15) Blood Urea Nitrogen 17 mg/dL (7-18) Creatinine 0.7 MG/DL (0.55-1.30) Estimat Glomerular Filtration Rate > 60 mL/min (>60) Glucose Level 95 MG/DL (74-106) Calcium Level 9.1 MG/DL (8.5-10.1) Total Bilirubin 0.6 MG/DL (0.2-1.0) Direct Bilirubin 0.1 MG/DL (0.0-0.3) Aspartate Amino Transf (AST/SGOT) 29 U/L (15-37) Alanine Aminotransferase (ALT/SGPT) 25 U/L (12-78) Alkaline Phosphatase 50 U/L (46-116) Total Protein 7.5 G/DL (6.4-8.2) Albumin 2.7 G/DL (3.4-5.0) L Globulin 4.8 g/dL Albumin/Globulin Ratio 0.6 (1.0-2.7) L Current Medications Medications (Trade) Dose Ordered Sig/Marian Route PRN Reason Start Time Stop Time Status Last Admin Dose Admin Acetaminophen (Tylenol) 650 mg Q6H PRN ORAL For Pain 07/07/20 15:45 08/06/20 15:44 Acetaminophen (Tylenol) 650 mg Q6H PRN ORAL FEVER 07/07/20 16:15 08/06/20 16:14 Azithromycin (Zithromax) 500 mg DAILY ORAL 07/08/20 09:00 07/15/20 08:59 07/10/20 08:26 Dexamethasone Sodium Phosphate (Decadron 10mg/ ml Inj) 6 mg DAILY IV 07/08/20 09:00 07/17/20 09:01 07/10/20 08:27 Dextrose (Dextrose 50%) 25 ml Q30M PRN IV Hypoglycemia 07/07/20 15:45 10/05/20 15:44 Dextrose (Dextrose 50%) 50 ml Q30M PRN IV Hypoglycemia 07/07/20 15:45 10/05/20 15:44 Docusate Sodium (Colace) 100 mg THREE TIMES A DAY ORAL 07/09/20 09:00 08/08/20 08:59 07/10/20 08:27 Enoxaparin Sodium (Lovenox) 80 mg DAILY SUBQ 07/08/20 09:00 10/06/20 08:59 07/10/20 08:26 Famotidine (Pepcid) 20 mg BID ORAL 07/09/20 09:00 10/07/20 08:59 07/10/20 08:26 Insulin Aspart (NovoLOG) BEFORE MEALS AND HS SUBQ 07/07/20 16:30 10/05/20 16:29 07/10/20 11:31 Remdesivir 100 mg/ Sodium Chloride 250 ml @ 250 mls/hr Q24H IV 07/08/20 18:00 07/11/20 18:59 07/09/20 17:40 Nataliia Velazquez M.D. Jul 10, 2020 15:31
[2020-07-10 16:00] VITALS: BP 127/68
[2020-07-10] MEDS: Maintenance Dose:Remdesivir 100mg/NS 230ml x 4 Doses IV SCH ×2 (17:57)
--- NOTE | 2020-07-10 19:29 | NUR ---
NURSE HAND-OFF REPORT: Important Events on Shift: NA Patient Status: stable Diet: CCHO med Pending Orders: na Pending Results/Labs:na Pending MD notification:na Latest Vital Signs: Temperature 97.6 , Pulse 92 , B/P 127 /68 , Respiratory Rate 22 , O2 SAT 98 , Nasal Cannula, O2 Flow Rate 15.0 . Vital Sign Comment: stable EKG Rhythm: Sinus Rhythm Rhythm change?: N MD Notified?: - MD Response: Latest Plaza Fall Score: 30 Fall Risk: Medium Risk Safety Measures: Call light Within Reach, Bed Alarm Zone 3, Side Rails Side Rails x2, Bed position Low and Locked. Fall Precautions: Yellow Socks Report given to LIANA Stuart.
[2020-07-10 20:00] VITALS: BP 134/82
--- NOTE | 2020-07-10 20:04 | NUR ---
Pt hemodynamically stable. 15L nrb o2 sat 93%. Assisted pt to bedside commode. SOB on exertion. Frequent coughing during activity. Bed in lowest position, call light within reach, side rails x2, will continue to monitor.
[2020-07-11] VITALS: BP 140/69
--- NOTE | 2020-07-11 02:46 | NUR ---
pt sleeping. Vital signs stable on 15L NRB mask. Will continue to monitor.
[2020-07-11 04:00] VITALS: BP 148/77
[2020-07-11 05:32] LABS: HEMATOCRIT 36.1 % (37.0-47.0); HEMOGLOBIN 12.3 G/DL (12.0-16.0); LYMPHOCYTES % (AUTO) 14.8 % (20.0-45.0); MEAN CORPUSCULAR VOLUME 86 FL (80-99); MONOCYTES % (AUTO) 6.2 % (1.0-10.0); NEUTROPHILS % (AUTO) 77.9 % (45.0-75.0); PLATELET COUNT 343 K/UL (150-450); RED BLOOD COUNT 4.17 M/UL (4.20-5.40); RED CELL DISTRIBUTION WIDTH 13.5 % (11.6-14.8); WHITE BLOOD COUNT 12.8 K/UL (4.8-10.8)
[2020-07-11 06:02] LABS: ALANINE AMINOTRANSFERASE 23 U/L (12-78); ALBUMIN 2.8 G/DL (3.4-5.0); ALBUMIN/GLOBULIN RATIO 0.6 (1.0-2.7); ALKALINE PHOSPHATASE 53 U/L (46-116); ANION GAP 10 mmol/L (5-15); ASPARTATE AMINO TRANSFERASE 30 U/L (15-37); BILIRUBIN,DIRECT 0.2 MG/DL (0.0-0.3); BLOOD UREA NITROGEN 19 mg/dL (7-18); CALCIUM 9.1 MG/DL (8.5-10.1); CARBON DIOXIDE 28 MMOL/L (21-32); CHLORIDE 103 MMOL/L (98-107); CREATININE 0.8 MG/DL (0.55-1.30); POTASSIUM 3.9 MMOL/L (3.5-5.1); SODIUM 141 MMOL/L (136-145)
[2020-07-11] MEDS: NovoLOG Insulin Flexpen SUBQ SCH ×4 (06:12→20:51)
[2020-07-11 06:21] LABS: BILIRUBIN,TOTAL 0.7 MG/DL (0.2-1.0)
--- NOTE | 2020-07-11 07:26 | Cardiology Progress Note ---
Assessment/Plan Status: stable Assessment/Plan 1. COVID-19 viral PNA on remdesivir and dexamethasone 2. Respiratory failure 2/2 acute PNA NRB mask 3. HFpEF acute on chronic diastolic HF with preserved EF EF 65%, compensated 4. DMII 5. GERD Still on NRB. Echo negative for acute decompensated HF. Diuresis as needed with IV Lasix. SBP and HR controlled. Subjective ROS Limited/Unobtainable: Yes Subjective In isolation, no distress Objective Last 24 Hour Vital Signs Date Time Temp Pulse Resp B/P (MAP) Pulse Ox O2 Delivery O2 Flow Rate FiO2 07/11/20 04:00 98.1 86 24 148/77 (100) 90 07/11/20 04:00 87 07/11/20 04:00 Non-Rebreather 15.0 07/11/20 00:00 97.7 82 20 140/69 (92) 92 07/11/20 00:00 Non-Rebreather 15.0 07/10/20 20:00 84 07/10/20 20:00 Non-Rebreather 15.0 07/10/20 20:00 97.3 82 24 134/82 (99) 93 07/10/20 19:23 98 Non-Rebreather 15.0 100 07/10/20 16:00 84 07/10/20 16:00 97.6 92 22 127/68 (87) 92 07/10/20 16:00 Non-Rebreather 15.0 07/10/20 12:00 87 07/10/20 12:00 97.7 96 22 125/65 (85) 92 07/10/20 12:00 Non-Rebreather 15.0 07/10/20 08:00 94 07/10/20 08:00 97.0 114 22 140/89 (106) 94 07/10/20 08:00 Non-Rebreather 15.0 General Appearance: no apparent distress Neck: no JVD Rhythm: NSR Cardiovascular: regular rhythm Respiratory/Chest: no accessory muscle use Extremities: trace edema Intake and Output 07/10/20 07/11/20 19:00 07:00 Intake Total 450 ml 60 ml Output Total 250 ml Balance 450 ml -190 ml Intake Oral 450 ml 60 ml Output Urine Total 250 ml # Voids 2 1 # Bowel Movements 2 Laboratory Tests Test 07/10/20 10:55 07/10/20 17:10 07/10/20 20:22 07/11/20 03:40 POC Whole Blood Glucose Pending Pending 153 MG/DL (74-106) H White Blood Count 12.8 K/UL (4.8-10.8) H Red Blood Count 4.17 M/UL (4.20-5.40) L Hemoglobin 12.3 G/DL (12.0-16.0) Hematocrit 36.1 % (37.0-47.0) L Mean Corpuscular Volume 86 FL (80-99) Mean Corpuscular Hemoglobin 29.6 PG (27.0-31.0) Mean Corpuscular Hemoglobin Concent 34.2 G/DL (32.0-36.0) Red Cell Distribution Width 13.5 % (11.6-14.8) Platelet Count 343 K/UL (150-450) Mean Platelet Volume 6.5 FL (6.5-10.1) Neutrophils (%) (Auto) 77.9 % (45.0-75.0) H Lymphocytes (%) (Auto) 14.8 % (20.0-45.0) L Monocytes (%) (Auto) 6.2 % (1.0-10.0) Eosinophils (%) (Auto) 0.0 % (0.0-3.0) Basophils (%) (Auto) 1.0 % (0.0-2.0) Sodium Level 141 MMOL/L (136-145) Potassium Level 3.9 MMOL/L (3.5-5.1) Chloride Level 103 MMOL/L (98-107) Carbon Dioxide Level 28 MMOL/L (21-32) Anion Gap 10 mmol/L (5-15) Blood Urea Nitrogen 19 mg/dL (7-18) H Creatinine 0.8 MG/DL (0.55-1.30) Estimat Glomerular Filtration Rate > 60 mL/min (>60) Glucose Level 97 MG/DL (74-106) Calcium Level 9.1 MG/DL (8.5-10.1) Total Bilirubin 0.7 MG/DL (0.2-1.0) Direct Bilirubin 0.2 MG/DL (0.0-0.3) Aspartate Amino Transf (AST/SGOT) 30 U/L (15-37) Alanine Aminotransferase (ALT/SGPT) 23 U/L (12-78) Alkaline Phosphatase 53 U/L (46-116) Total Protein 7.8 G/DL (6.4-8.2) Albumin 2.8 G/DL (3.4-5.0) L Globulin 5.0 g/dL Albumin/Globulin Ratio 0.6 (1.0-2.7) L Blanca Lobato PA-C Jul 11, 2020 07:26
--- NOTE | 2020-07-11 07:35 | NUR ---
NURSE NOTES: Report received from LIANA Gray. Patient is on bed, responds to questions well, no grimacing or distress noted, just short of breath when, but saturating well (mid 90s). Patient is currently on NRB mask 15 L, tolerating well. Uses the urinal for urination and bedside commode. Has a R H 22 g IV, patent, intact, and saline locked. HOB elevated, bed is on lowest position, side rails up, locked. Call light within reach and bed side table is next to bed. Will continue to monitor patient. Will continue plan of care.
[2020-07-11 08:00] VITALS: BP 127/75
--- NOTE | 2020-07-11 09:05 | Pulmonology Progress Note ---
Subjective ROS Limited/Unobtainable: No Interval Events: None new Constitutional: Reports: no symptoms Gastrointestinal/Abdominal: Reports: no symptoms Psychiatric: Reports: no symptoms Skin: Reports: no symptoms Musculoskeletal: Reports: no symptoms Allergies: Coded Allergies: No Known Allergies (Unverified , 07/07/20) Objective Last 24 Hour Vital Signs Date Time Temp Pulse Resp B/P (MAP) Pulse Ox O2 Delivery O2 Flow Rate FiO2 07/11/20 04:00 98.1 86 24 148/77 (100) 90 07/11/20 04:00 87 07/11/20 04:00 Non-Rebreather 15.0 07/11/20 00:00 97.7 82 20 140/69 (92) 92 07/11/20 00:00 Non-Rebreather 15.0 07/10/20 20:00 84 07/10/20 20:00 Non-Rebreather 15.0 07/10/20 20:00 97.3 82 24 134/82 (99) 93 07/10/20 19:23 98 Non-Rebreather 15.0 100 07/10/20 16:00 84 07/10/20 16:00 97.6 92 22 127/68 (87) 92 07/10/20 16:00 Non-Rebreather 15.0 07/10/20 12:00 87 07/10/20 12:00 97.7 96 22 125/65 (85) 92 07/10/20 12:00 Non-Rebreather 15.0 Intake and Output 07/10/20 07/11/20 19:00 07:00 Intake Total 450 ml 60 ml Output Total 250 ml Balance 450 ml -190 ml Intake Oral 450 ml 60 ml Output Urine Total 250 ml # Voids 2 1 # Bowel Movements 2 General Appearance: no acute distress HEENT: normocephalic Respiratory: decreased breath sounds Cardiovascular: normal peripheral pulses Abdomen: normal bowel sounds Laboratory Tests 07/10/20 10:55: POC Whole Blood Glucose [Pending] 07/10/20 17:10: POC Whole Blood Glucose [Pending] 07/10/20 20:22: POC Whole Blood Glucose 153H 07/11/20 03:40: White Blood Count 12.8H, Red Blood Count 4.17L, Hemoglobin 12.3, Hematocrit 36.1L, Mean Corpuscular Volume 86, Mean Corpuscular Hemoglobin 29.6, Mean Corpuscular Hemoglobin Concent 34.2, Red Cell Distribution Width 13.5, Platelet Count 343, Mean Platelet Volume 6.5, Neutrophils (%) (Auto) 77.9H, Lymphocytes (%) (Auto) 14.8L, Monocytes (%) (Auto) 6.2, Eosinophils (%) (Auto) 0.0, Basophils (%) (Auto) 1.0, Sodium Level 141, Potassium Level 3.9, Chloride Level 103, Carbon Dioxide Level 28, Anion Gap 10, Blood Urea Nitrogen 19H, Creatinine 0.8, Estimat Glomerular Filtration Rate > 60, Glucose Level 97, Calcium Level 9.1, Total Bilirubin 0.7, Direct Bilirubin 0.2, Aspartate Amino Transf (AST /SGOT) 30, Alanine Aminotransferase (ALT/SGPT) 23, Alkaline Phosphatase 53, Total Protein 7.8, Albumin 2.8L, Globulin 5.0, Albumin/Globulin Ratio 0.6L Current Medications Medications (Trade) Dose Ordered Sig/Marian Route PRN Reason Start Time Stop Time Status Last Admin Dose Admin Acetaminophen (Tylenol) 650 mg Q6H PRN ORAL For Pain 07/07/20 15:45 08/06/20 15:44 Acetaminophen (Tylenol) 650 mg Q6H PRN ORAL FEVER 07/07/20 16:15 08/06/20 16:14 Azithromycin (Zithromax) 500 mg DAILY ORAL 07/08/20 09:00 07/15/20 08:59 07/10/20 08:26 Dexamethasone Sodium Phosphate (Decadron 10mg/ ml Inj) 6 mg DAILY IV 07/08/20 09:00 07/17/20 09:01 07/10/20 08:27 Dextrose (Dextrose 50%) 25 ml Q30M PRN IV Hypoglycemia 07/07/20 15:45 10/05/20 15:44 Dextrose (Dextrose 50%) 50 ml Q30M PRN IV Hypoglycemia 07/07/20 15:45 10/05/20 15:44 Docusate Sodium (Colace) 100 mg THREE TIMES A DAY ORAL 07/09/20 09:00 08/08/20 08:59 07/10/20 08:27 Enoxaparin Sodium (Lovenox) 80 mg DAILY SUBQ 07/08/20 09:00 10/06/20 08:59 07/10/20 08:26 Famotidine (Pepcid) 20 mg BID ORAL 07/09/20 09:00 10/07/20 08:59 07/10/20 17:21 Insulin Aspart (NovoLOG) BEFORE MEALS AND HS SUBQ 07/07/20 16:30 10/05/20 16:29 07/10/20 20:36 Remdesivir 100 mg/ Sodium Chloride 250 ml @ 250 mls/hr Q24H IV 07/08/20 18:00 07/11/20 18:59 07/10/20 17:57 Assessment/Plan Assessment/Plan 1. COVID-19 pneumonia. - on remdexsivir and azithromycin 2. Hypoxemia. - on decadron - on NRB saturating at 91-92% -> weaning failed yesterday; will continue to attempt - wean as tolerated 3. Hypertension. 4. Diabetes mellitus. 5. DVT ppx - on Lovenox Discussed with bedside RN. The care for this patient was discussed with my supervising physician Time spent for this case was approximately 31 minutes Milton Howard Jul 11, 2020 09:05
--- NOTE | 2020-07-11 09:19 | NUR ---
CASE MANAGEMENT:REVIEW 07/11/20 SI: COVID PNEUMONIA 98.1 86 24 148/77 90% ON 15L/100%/NRB WBC+12.8 IS: IV REMDESIVIR Q24 IV DECADRON Q24 PEPCID PO BID LOVENOX SQ QD AZITHROMAX PO QD : STEP DOWN UNIT DCP: FROM HOME
[2020-07-11] MEDS: Azithromycin 250mg tab ORAL SCH (09:51)
[2020-07-11] MEDS: Docusate 100mg cap ORAL SCH ×3 (09:52→19:10)
[2020-07-11] MEDS: dexAMETHasone 10mg/ml Inj IV SCH (09:52)
[2020-07-11] MEDS: Enoxaparin 80mg Inj SUBQ SCH (09:54)
[2020-07-11] MEDS: Losartan 25mg tab ORAL SCH (10:51)
--- NOTE | 2020-07-11 11:20 | Nephrology Progress Note ---
Assessment/Plan Problem List: (1) Hyponatremia (2) Hypoxia (3) Pneumonitis (4) Acute respiratory failure due to COVID-19 (5) DMII (diabetes mellitus, type 2) (6) HTN (hypertension) Assessment Hyponatremia, improved with saline infusion COVID-19 infection Pneumonia, acute respiratory failure, hypoxia Diabetes mellitus Hypertension Plan July 11: Labs reviewed. Renal parameters stable. July 10: Labs reviewed. Renal parameters electrolytes stable. Continue per consultants. July 09: Labs reviewed. Renal parameters and electrolytes stable. Continue per ID and pulmonary. Subjective ROS Limited/Unobtainable: Yes Objective Objective Last 24 Hour Vital Signs Date Time Temp Pulse Resp B/P (MAP) Pulse Ox O2 Delivery O2 Flow Rate FiO2 07/11/20 10:51 127/75 07/11/20 08:00 97 07/11/20 04:00 98.1 86 24 148/77 (100) 90 07/11/20 04:00 87 07/11/20 04:00 Non-Rebreather 15.0 07/11/20 00:00 97.7 82 20 140/69 (92) 92 07/11/20 00:00 Non-Rebreather 15.0 07/10/20 20:00 84 07/10/20 20:00 Non-Rebreather 15.0 07/10/20 20:00 97.3 82 24 134/82 (99) 93 07/10/20 19:23 98 Non-Rebreather 15.0 100 07/10/20 16:00 84 07/10/20 16:00 97.6 92 22 127/68 (87) 92 07/10/20 16:00 Non-Rebreather 15.0 07/10/20 12:00 87 07/10/20 12:00 97.7 96 22 125/65 (85) 92 07/10/20 12:00 Non-Rebreather 15.0 Intake and Output 07/10/20 07/11/20 19:00 07:00 Intake Total 450 ml 60 ml Output Total 250 ml Balance 450 ml -190 ml Intake Oral 450 ml 60 ml Output Urine Total 250 ml # Voids 2 1 # Bowel Movements 2 Current Medications Medications (Trade) Dose Ordered Sig/Marian Route PRN Reason Start Time Stop Time Status Last Admin Dose Admin Acetaminophen (Tylenol) 650 mg Q6H PRN ORAL For Pain 07/07/20 15:45 08/06/20 15:44 Acetaminophen (Tylenol) 650 mg Q6H PRN ORAL FEVER 07/07/20 16:15 08/06/20 16:14 Azithromycin (Zithromax) 500 mg DAILY ORAL 07/08/20 09:00 07/15/20 08:59 07/11/20 09:51 Dexamethasone Sodium Phosphate (Decadron 10mg/ ml Inj) 6 mg DAILY IV 07/08/20 09:00 07/17/20 09:01 07/11/20 09:52 Dextrose (Dextrose 50%) 25 ml Q30M PRN IV Hypoglycemia 07/07/20 15:45 10/05/20 15:44 Dextrose (Dextrose 50%) 50 ml Q30M PRN IV Hypoglycemia 07/07/20 15:45 10/05/20 15:44 Docusate Sodium (Colace) 100 mg THREE TIMES A DAY ORAL 07/09/20 09:00 08/08/20 08:59 07/11/20 09:52 Enoxaparin Sodium (Lovenox) 80 mg DAILY SUBQ 07/08/20 09:00 10/06/20 08:59 07/11/20 09:54 Famotidine (Pepcid) 20 mg BID ORAL 07/09/20 09:00 10/07/20 08:59 07/11/20 09:52 Furosemide (Lasix) 20 mg ONCE IV 07/11/20 10:30 07/11/20 11:30 07/11/20 10:50 Insulin Aspart (NovoLOG) BEFORE MEALS AND HS SUBQ 07/07/20 16:30 10/05/20 16:29 07/10/20 20:36 Losartan Potassium (Cozaar) 25 mg DAILY ORAL 07/11/20 11:00 08/10/20 10:59 07/11/20 10:51 Remdesivir 100 mg/ Sodium Chloride 250 ml @ 250 mls/hr Q24H IV 07/08/20 18:00 07/11/20 18:59 07/10/20 17:57 Laboratory Tests 07/10/20 17:10: POC Whole Blood Glucose [Pending] 07/10/20 20:22: POC Whole Blood Glucose 153H 07/11/20 03:40: White Blood Count 12.8H, Red Blood Count 4.17L, Hemoglobin 12.3, Hematocrit 36.1L, Mean Corpuscular Volume 86, Mean Corpuscular Hemoglobin 29.6, Mean Corpuscular Hemoglobin Concent 34.2, Red Cell Distribution Width 13.5, Platelet Count 343, Mean Platelet Volume 6.5, Neutrophils (%) (Auto) 77.9H, Lymphocytes (%) (Auto) 14.8L, Monocytes (%) (Auto) 6.2, Eosinophils (%) (Auto) 0.0, Basophils (%) (Auto) 1.0, Sodium Level 141, Potassium Level 3.9, Chloride Level 103, Carbon Dioxide Level 28, Anion Gap 10, Blood Urea Nitrogen 19H, Creatinine 0.8, Estimat Glomerular Filtration Rate > 60, Glucose Level 97, Calcium Level 9.1, Total Bilirubin 0.7, Direct Bilirubin 0.2, Aspartate Amino Transf (AST/SGOT) 30, Alanine Aminotransferase (ALT/SGPT) 23, Alkaline Phosphatase 53, Pro-B-Type Natriuretic Peptide 83, Total Protein 7.8, Albumin 2.8L, Globulin 5.0, Albumin/Globulin Ratio 0.6L Height (Feet): 5 Height (Inches): 3.00 Weight (Pounds): 162 General Appearance: no apparent distress EENT: other - On nonrebreather mask Cardiovascular: normal rate Respiratory/Chest: decreased breath sounds Abdomen: soft Anurag Bridges MD Jul 11, 2020 11:20
[2020-07-11 12:00] VITALS: BP 126/77
--- NOTE | 2020-07-11 12:22 | NUR ---
SENIOR CENTER MANAGER NOTE SW met w/ pt and evaluated home safety. PT resides w/ her at [address], [place] [address]. Pt reports she was ambulatory w/o DEM and independent w/ ADLs and IADLs. Pt does not have a caregiver. Pt has one adult daughter living in [facility]. Pt verbalizes that she will be able to provide self-care when her condition improves. Pt reports she will receive sufficient support from her when she returns home. Emergency contact: Jesrey Purvis () [phone] Addendum: 07/27/20 at 0903 by LEONEL KUMAR [phone]
--- NOTE | 2020-07-11 13:36 | NUR ---
RD ASSESSMENT & RECOMMENDATIONS SEE CARE ACTIVITY FOR COMPLETE ASSESSMENT DAILY ESTIMATED NEEDS: Needs based on DM, pulmonary/ 57.6kg abw 25-30 kcals/kg 4195-0593 total kcals 1-1.5 g protein/kg 58-86 g total protein 25-30 mL/kg 0367-7190 total fluid mLs NUTRITION DIAGNOSIS: Altered nutrition related lab values R/T diabetes as evidenced by A1C 6.9 w/ elev POC (187 103 154 188 166) CURRENT DIET:CCHO MED, mech soft chopped PO DIET RECOMMENDATIONS: Maintain CCHO MED/ texture as tolerated ADDITIONAL RECOMMENDATIONS: * Calibrated bedscale wt * Monitor respiratory status, PO tolerance - on NRB mask at this time * Glucerna BID w/ variable intake (220kcal, 9g prot each)
--- NOTE | 2020-07-11 14:41 | General Progress Note ---
Subjective Allergies: Coded Allergies: No Known Allergies (Unverified , 07/07/20) Objective Last 24 Hour Vital Signs Date Time Temp Pulse Resp B/P (MAP) Pulse Ox O2 Delivery O2 Flow Rate FiO2 07/11/20 12:32 94 07/11/20 12:00 Non-Rebreather 15.0 07/11/20 12:00 98.4 96 24 126/77 (93) 90 07/11/20 10:51 127/75 07/11/20 08:00 Non-Rebreather 15.0 07/11/20 08:00 98.1 103 26 127/75 (92) 90 07/11/20 08:00 97 07/11/20 04:00 98.1 86 24 148/77 (100) 90 07/11/20 04:00 87 07/11/20 04:00 Non-Rebreather 15.0 07/11/20 00:00 97.7 82 20 140/69 (92) 92 07/11/20 00:00 Non-Rebreather 15.0 07/10/20 20:00 84 07/10/20 20:00 Non-Rebreather 15.0 07/10/20 20:00 97.3 82 24 134/82 (99) 93 07/10/20 19:23 98 Non-Rebreather 15.0 100 07/10/20 16:00 84 07/10/20 16:00 97.6 92 22 127/68 (87) 92 07/10/20 16:00 Non-Rebreather 15.0 Intake and Output 07/10/20 07/11/20 19:00 07:00 Intake Total 450 ml 60 ml Output Total 250 ml Balance 450 ml -190 ml Intake Oral 450 ml 60 ml Output Urine Total 250 ml # Voids 2 1 # Bowel Movements 2 Laboratory Tests 07/10/20 17:10: POC Whole Blood Glucose [Pending] 07/10/20 20:22: POC Whole Blood Glucose 153H 07/11/20 03:40: White Blood Count 12.8H, Red Blood Count 4.17L, Hemoglobin 12.3, Hematocrit 36.1L, Mean Corpuscular Volume 86, Mean Corpuscular Hemoglobin 29.6, Mean Corpuscular Hemoglobin Concent 34.2, Red Cell Distribution Width 13.5, Platelet Count 343, Mean Platelet Volume 6.5, Neutrophils (%) (Auto) 77.9H, Lymphocytes (%) (Auto) 14.8L, Monocytes (%) (Auto) 6.2, Eosinophils (%) (Auto) 0.0, Basophils (%) (Auto) 1.0, Sodium Level 141, Potassium Level 3.9, Chloride Level 103, Carbon Dioxide Level 28, Anion Gap 10, Blood Urea Nitrogen 19H, Creatinine 0.8, Estimat Glomerular Filtration Rate > 60, Glucose Level 97, Calcium Level 9.1, Total Bilirubin 0.7, Direct Bilirubin 0.2, Aspartate Amino Transf (AST/SGOT) 30, Alanine Aminotransferase (ALT/SGPT) 23, Alkaline Phosphatase 53, Pro-B-Type Natriuretic Peptide 83, Total Protein 7.8, Albumin 2.8L, Globulin 5.0, Albumin/Globulin Ratio 0.6L Height (Feet): 5 Height (Inches): 3.00 Weight (Pounds): 162 Assessment/Plan Status: stable Assessment/Plan: S, O: I am feeling better, seems comfortable, no severe pain PHYSICAL EXAMINATION: HEAD AND NECK: Atraumatic and normocephalic. CHEST: Diffuse bronchial breathing sounds. HEART: S1 and S2. Regular rate and rhythm. ABDOMEN: Soft. No organomegaly. MUSCULOSKELETAL: No gross lateralized motor deficit. DIAGNOSTIC DATA: Chest x-ray shows bilateral pneumonia. ASSESSMENT: 1. COVID-19 pneumonia. 2. Hypoxemic respiratory failure. 3. Diabetes type 2. 4. Hyponatremia 5. GI and DVT prophylaxis. PLAN OF CARE: I left a for patient's brother in law, per her request. on 1334 hours on Jul 10 Agreed with current management. Gail Malcolm MD Jul 11, 2020 14:41
[2020-07-11 16:00] VITALS: BP 103/66
--- NOTE | 2020-07-11 16:11 | Infectious Diseases Prog Note ---
Assessment/Plan Problems: (1) COVID-19 virus infection Assessment & Plan: complicated with pneumonia and hypoxemia, continue remdisvir for 5 days, PCR test is positive which confirm, keep patient in enhanced droplet isolation, titrate oxygen to keep O2 sat more than 90% (2) Dyspnea due to COVID-19 Assessment & Plan: continue respiratory support with BiPAP PRN and nonrebreather mask with high flow oxygen and titrate as needed, monitor chest x- ray and ABG (3) Pneumonia due to COVID-19 virus Assessment & Plan: already on Remdisvir IV for 5 days, and Decadron, monitor chest x-ray (4) Acute respiratory failure due to COVID-19 Assessment & Plan: suspect due to pneumonitis from COV ID 19, continue respiratory support with close monitor of ABG and chest x-ray Subjective Constitutional: Reports: no symptoms HEENT: Reports: no symptoms Respiratory: Reports: shortness of breath, dry cough Breasts: Reports: no symptoms Cardiovascular: Reports: no symptoms Gastrointestinal/Abdominal: Reports: no symptoms Genitourinary: Reports: no symptoms Neurologic: Reports: no symptoms Psychiatric: Reports: no symptoms Skin: Reports: no symptoms Endocrine: Reports: no symptoms Allergies: Coded Allergies: No Known Allergies (Unverified , 07/07/20) Objective Last 24 Hour Vital Signs Date Time Temp Pulse Resp B/P (MAP) Pulse Ox O2 Delivery O2 Flow Rate FiO2 07/11/20 15:50 79 07/11/20 12:32 94 07/11/20 12:00 Non-Rebreather 15.0 07/11/20 12:00 98.4 96 24 126/77 (93) 90 07/11/20 10:51 127/75 07/11/20 08:00 Non-Rebreather 15.0 07/11/20 08:00 98.1 103 26 127/75 (92) 90 07/11/20 08:00 97 07/11/20 04:00 98.1 86 24 148/77 (100) 90 07/11/20 04:00 87 07/11/20 04:00 Non-Rebreather 15.0 07/11/20 00:00 97.7 82 20 140/69 (92) 92 07/11/20 00:00 Non-Rebreather 15.0 07/10/20 20:00 84 07/10/20 20:00 Non-Rebreather 15.0 07/10/20 20:00 97.3 82 24 134/82 (99) 93 07/10/20 19:23 98 Non-Rebreather 15.0 100 Height (Feet): 5 Height (Inches): 3.00 Weight (Pounds): 162 General Appearance: WD/WN, no acute distress HEENT: normocephalic, atraumatic Respiratory/Chest: chest wall non-tender, no respiratory distress, no accessory muscle use, decreased breath sounds, crackles/rales Cardiovascular: normal peripheral pulses, normal rate, regular rhythm Abdomen: normal bowel sounds, soft, non tender, no organomegaly, non distended Extremities: no cyanosis, no clubbing Skin: no rash, no lesions, no ulcers Laboratory Tests Test 07/10/20 17:10 07/10/20 20:22 07/11/20 03:40 POC Whole Blood Glucose Pending 153 MG/DL (74-106) H White Blood Count 12.8 K/UL (4.8-10.8) H Red Blood Count 4.17 M/UL (4.20-5.40) L Hemoglobin 12.3 G/DL (12.0-16.0) Hematocrit 36.1 % (37.0-47.0) L Mean Corpuscular Volume 86 FL (80-99) Mean Corpuscular Hemoglobin 29.6 PG (27.0-31.0) Mean Corpuscular Hemoglobin Concent 34.2 G/DL (32.0-36.0) Red Cell Distribution Width 13.5 % (11.6-14.8) Platelet Count 343 K/UL (150-450) Mean Platelet Volume 6.5 FL (6.5-10.1) Neutrophils (%) (Auto) 77.9 % (45.0-75.0) H Lymphocytes (%) (Auto) 14.8 % (20.0-45.0) L Monocytes (%) (Auto) 6.2 % (1.0-10.0) Eosinophils (%) (Auto) 0.0 % (0.0-3.0) Basophils (%) (Auto) 1.0 % (0.0-2.0) Sodium Level 141 MMOL/L (136-145) Potassium Level 3.9 MMOL/L (3.5-5.1) Chloride Level 103 MMOL/L (98-107) Carbon Dioxide Level 28 MMOL/L (21-32) Anion Gap 10 mmol/L (5-15) Blood Urea Nitrogen 19 mg/dL (7-18) H Creatinine 0.8 MG/DL (0.55-1.30) Estimat Glomerular Filtration Rate > 60 mL/min (>60) Glucose Level 97 MG/DL (74-106) Calcium Level 9.1 MG/DL (8.5-10.1) Total Bilirubin 0.7 MG/DL (0.2-1.0) Direct Bilirubin 0.2 MG/DL (0.0-0.3) Aspartate Amino Transf (AST/SGOT) 30 U/L (15-37) Alanine Aminotransferase (ALT/SGPT) 23 U/L (12-78) Alkaline Phosphatase 53 U/L (46-116) Pro-B-Type Natriuretic Peptide 83 pg/mL (0-125) Total Protein 7.8 G/DL (6.4-8.2) Albumin 2.8 G/DL (3.4-5.0) L Globulin 5.0 g/dL Albumin/Globulin Ratio 0.6 (1.0-2.7) L Current Medications Medications (Trade) Dose Ordered Sig/Marian Route PRN Reason Start Time Stop Time Status Last Admin Dose Admin Acetaminophen (Tylenol) 650 mg Q6H PRN ORAL For Pain 07/07/20 15:45 08/06/20 15:44 Acetaminophen (Tylenol) 650 mg Q6H PRN ORAL FEVER 07/07/20 16:15 08/06/20 16:14 Azithromycin (Zithromax) 500 mg DAILY ORAL 07/08/20 09:00 07/15/20 08:59 07/11/20 09:51 Dexamethasone Sodium Phosphate (Decadron 10mg/ ml Inj) 6 mg DAILY IV 07/08/20 09:00 07/17/20 09:01 07/11/20 09:52 Dextrose (Dextrose 50%) 25 ml Q30M PRN IV Hypoglycemia 07/07/20 15:45 10/05/20 15:44 Dextrose (Dextrose 50%) 50 ml Q30M PRN IV Hypoglycemia 07/07/20 15:45 10/05/20 15:44 Docusate Sodium (Colace) 100 mg THREE TIMES A DAY ORAL 07/09/20 09:00 08/08/20 08:59 07/11/20 13:57 Enoxaparin Sodium (Lovenox) 80 mg DAILY SUBQ 07/08/20 09:00 10/06/20 08:59 07/11/20 09:54 Famotidine (Pepcid) 20 mg BID ORAL 07/09/20 09:00 10/07/20 08:59 07/11/20 09:52 Insulin Aspart (NovoLOG) BEFORE MEALS AND HS SUBQ 07/07/20 16:30 10/05/20 16:29 07/11/20 11:46 Losartan Potassium (Cozaar) 25 mg DAILY ORAL 07/11/20 11:00 08/10/20 10:59 07/11/20 10:51 Remdesivir 100 mg/ Sodium Chloride 250 ml @ 250 mls/hr Q24H IV 07/08/20 18:00 07/11/20 18:59 07/10/20 17:57 Nataliia Velazquez M.D. Jul 11, 2020 16:11
[2020-07-11] MEDS: Maintenance Dose:Remdesivir 100mg/NS 230ml x 4 Doses IV SCH ×2 (19:10)
--- NOTE | 2020-07-11 19:10 | NUR ---
NURSE NOTES: pt report received from Margarette RN. pt is alert and oriented times 4, able to follow commands. no abnormalities noted to neuro assessment. pt is on cafeteria monitor showing NSR, no change in cardiac rhythm, no abnormalities noted. it is non rebreather, sating 98% O2, no acute distress to resp assessment. pt bed is low, locked, armed, bed rails up times 3, call light within reach. will follow plan of care.
--- NOTE | 2020-07-11 19:58 | NUR ---
NURSE HAND-OFF REPORT: Important Events on Shift: STABLE Patient Status: Diet: Pending Orders: Pending Results/Labs: Pending MD notification:x Latest Vital Signs: Temperature 98.4 , Pulse 84 , B/P 103 /66 , Respiratory Rate 22 , O2 SAT 97 , Nasal Cannula, O2 Flow Rate 15.0 . Vital Sign Comment: EKG Rhythm: Sinus Rhythm Rhythm change?: N MD Notified?: - MD Response: Latest Plaza Fall Score: 30 Fall Risk: Medium Risk Safety Measures: Call light Within Reach, Bed Alarm Zone 3, Side Rails Side Rails x2, Bed position Low and Locked. Fall Precautions: Yellow Socks Report given to LIANA Valdivia.
[2020-07-11 20:00] VITALS: BP 108/73
[2020-07-12] VITALS: BP 118/77
--- NOTE | 2020-07-12 02:00 | Cardiology Report ---
APPROVED REPORT EKG Measurement Heart [id number] <Conclusion> Normal sinus rhythm Cannot rule out Anterior infarct, age undetermined Abnormal ECG
[2020-07-12 04:00] VITALS: BP 124/86
[2020-07-12] MEDS: NovoLOG Insulin Flexpen SUBQ SCH ×4 (06:10→20:42)
--- NOTE | 2020-07-12 07:39 | NUR ---
NURSE HAND-OFF REPORT: Important Events on Shift:[NA] Patient Status: [stable] Diet: [as per doctor order] Pending Orders: [NA] Pending Results/Labs:[NA] Pending MD notification:[NA] Latest Vital Signs: Temperature 97.7 , Pulse 80 , B/P 124 /86 , Respiratory Rate 23 , O2 SAT 97 , Nasal Cannula, O2 Flow Rate 15.0 . Vital Sign Comment: [stable] EKG Rhythm: Sinus Rhythm Rhythm change?: N MD Notified?: - MD Response: Latest Plaza Fall Score: 30 Fall Risk: Medium Risk Safety Measures: Call light Within Reach, Bed Alarm Zone 3, Side Rails Side Rails x2, Bed position Low and Locked. Fall Precautions: Yellow Socks Report given to [Neris GAINES].
--- NOTE | 2020-07-12 07:39 | NUR ---
NURSE NOTES: Received report from LIANA Valdivia. Patient is on bed, no signs of grimacing or distress noted. Patient needed to use the restroom as I entered the room, assisted her to the bedside commode. On NRB mask 15 L, tolerating okay on mid 90s, but desaturates to high 80s when moving around. Patient is on [facility] mechanical soft diet. Has a R H 20 g IV site, patent, intact, and saline locked. HOB elevated, bed on lowest position, side rails up, locked, call light within reach. Will continue to be monitored. Will continue plan of care.
[2020-07-12 08:00] VITALS: BP 137/80
[2020-07-12] MEDS: Docusate 100mg cap ORAL SCH ×3 (09:00→20:43)
[2020-07-12] MEDS: dexAMETHasone 10mg/ml Inj IV SCH (09:07)
[2020-07-12] MEDS: Losartan 25mg tab ORAL SCH (09:08)
[2020-07-12] MEDS: Azithromycin 250mg tab ORAL SCH (09:08)
--- NOTE | 2020-07-12 09:08 | NUR ---
CASE MANAGEMENT:REVIEW 07/12/20 SI: COVID PNEUMONIA 97.7 77 23 124/86 97% ON 15L/100%/NRB LABS CURRENTLY PENDING IS: COZAAR PO QD IV DECADRON Q24 PEPCID PO BID LOVENOX SQ QD AZITHROMAX PO QD : STEP DOWN UNIT DCP: FROM HOME PLAN: SUPPORTIVE CARE COMPLETED REMDESIVIR WEAN O2 ABLE CONTINUE STEROIDS
[2020-07-12] MEDS: Enoxaparin 80mg Inj SUBQ SCH (09:24)
[2020-07-12 10:39] LABS: BASOPHILS % (AUTO) 0.7 % (0.0-2.0); HEMATOCRIT 36.4 % (37.0-47.0); HEMOGLOBIN 11.8 G/DL (12.0-16.0); LYMPHOCYTES % (AUTO) 12.3 % (20.0-45.0); MEAN CORPUSCULAR VOLUME 86 FL (80-99); MONOCYTES % (AUTO) 5.5 % (1.0-10.0); NEUTROPHILS % (AUTO) 81.5 % (45.0-75.0); PLATELET COUNT 313 K/UL (150-450); RED BLOOD COUNT 4.25 M/UL (4.20-5.40); RED CELL DISTRIBUTION WIDTH 11.7 % (11.6-14.8); WHITE BLOOD COUNT 11.4 K/UL (4.8-10.8)
[2020-07-12 10:43] LABS: ANION GAP 10 mmol/L (5-15); BLOOD UREA NITROGEN 21 mg/dL (7-18); CALCIUM 8.8 MG/DL (8.5-10.1); CARBON DIOXIDE 27 MMOL/L (21-32); CHLORIDE 103 MMOL/L (98-107); CREATININE 0.7 MG/DL (0.55-1.30); POTASSIUM 3.8 MMOL/L (3.5-5.1); SODIUM 140 MMOL/L (136-145)
--- NOTE | 2020-07-12 10:44 | Cardiology Report ---
APPROVED REPORT EXAM: Two-dimensional and M-mode echocardiogram with Doppler and color Doppler. INDICATION Ejection Fraction M-Mode DIMENSIONS IVSd0.9 (0.7-1.1cm)Left Atrium (MM)3.2 (1.6-4.0cm) LVDd4.7 (3.5-5.6cm)Aortic Root2.2 (2.0-3.7cm) PWd0.9 (0.7-1.1cm)Aortic Cusp Exc.1.6 (1.5-2.0cm) IVSs1.8 cmEPSS0.6 (>1.0cm) LVDs2.5 (2.5-4.0cm) PWs1.5 cm <Conclusion> Normal left ventricular chamber size, systolic function and wall motion. Left ventricular ejection fraction estimated to be 65 %. No evidence of left ventricular hypertrophy. No evidence of pericardial effusion. All other cardiac chamber sizes are within normal limits. Focal aortic valve sclerosis with adequate cusp excursion. Thickened mitral valve leaflets with normal excursion. Mitral annulus and aortic root calcification. Normal pulmonic valve structure. Normal tricuspid valve structure. IVC is normal in size with physiological collapse. A color flow and spectral Doppler study was performed and revealed: No aortic regurgitation. Trace mitral regurgitation. Mitral diastolic velocities suggest mild left ventricular diastolic dysfunction (Grade I). Trace tricuspid regurgitation. Tricuspid systolic velocities suggests peak right ventricular systolic pressure of 16 mmHg. Trace pulmonic regurgitation present.
[2020-07-12 10:47] LABS: ALANINE AMINOTRANSFERASE 19 U/L (12-78); ALBUMIN 2.5 G/DL (3.4-5.0); ALBUMIN/GLOBULIN RATIO 0.5 (1.0-2.7); ALKALINE PHOSPHATASE 44 U/L (46-116); ASPARTATE AMINO TRANSFERASE 26 U/L (15-37); BILIRUBIN,TOTAL 0.9 MG/DL (0.2-1.0)
--- NOTE | 2020-07-12 10:48 | Nephrology Progress Note ---
Assessment/Plan Problem List: (1) Hyponatremia (2) Hypoxia (3) Pneumonitis (4) Acute respiratory failure due to COVID-19 (5) DMII (diabetes mellitus, type 2) (6) HTN (hypertension) Assessment Hyponatremia, improved with saline infusion COVID-19 infection Pneumonia, acute respiratory failure, hypoxia Diabetes mellitus Hypertension Plan July 12: Today's labs pending. Medication list reviewed. Continue per current management and consultants. July 11: Labs reviewed. Renal parameters stable. July 10: Labs reviewed. Renal parameters electrolytes stable. Continue per consultants. July 09: Labs reviewed. Renal parameters and electrolytes stable. Continue per ID and pulmonary. Subjective ROS Limited/Unobtainable: No Constitutional: Reports: malaise Objective Objective Last 24 Hour Vital Signs Date Time Temp Pulse Resp B/P (MAP) Pulse Ox O2 Delivery O2 Flow Rate FiO2 07/12/20 09:08 137/80 07/12/20 08:00 Non-Rebreather 15.0 07/12/20 08:00 98.2 97 24 137/80 (99) 93 07/12/20 07:30 100 07/12/20 07:05 97 Non-Rebreather 15.0 100 07/12/20 04:00 97.7 80 23 124/86 (99) 97 07/12/20 04:00 77 07/12/20 04:00 Non-Rebreather 15.0 07/12/20 00:00 69 07/12/20 00:00 Non-Rebreather 15.0 07/12/20 00:00 98.2 60 22 118/77 (91) 95 07/11/20 20:00 Non-Rebreather 15.0 07/11/20 20:00 76 07/11/20 20:00 97.5 71 22 108/73 (85) 98 07/11/20 19:41 97 Non-Rebreather 15.0 100 07/11/20 16:00 Non-Rebreather 15.0 07/11/20 16:00 98.4 84 22 103/66 (78) 94 07/11/20 15:50 79 07/11/20 12:32 94 07/11/20 12:00 Non-Rebreather 15.0 07/11/20 12:00 98.4 96 24 126/77 (93) 90 07/11/20 10:51 127/75 Intake and Output 07/11/20 07/12/20 19:00 07:00 Intake Total 400 ml Output Total 400 ml 200 ml Balance 0 ml -200 ml Intake Oral 400 ml Output Urine Total 400 ml 200 ml Current Medications Medications (Trade) Dose Ordered Sig/Marian Route PRN Reason Start Time Stop Time Status Last Admin Dose Admin Acetaminophen (Tylenol) 650 mg Q6H PRN ORAL For Pain 07/07/20 15:45 08/06/20 15:44 Acetaminophen (Tylenol) 650 mg Q6H PRN ORAL FEVER 07/07/20 16:15 08/06/20 16:14 Azithromycin (Zithromax) 500 mg DAILY ORAL 07/08/20 09:00 07/15/20 08:59 07/12/20 09:08 Dexamethasone Sodium Phosphate (Decadron 10mg/ ml Inj) 6 mg DAILY IV 07/08/20 09:00 07/17/20 09:01 07/12/20 09:07 Dextrose (Dextrose 50%) 25 ml Q30M PRN IV Hypoglycemia 07/07/20 15:45 10/05/20 15:44 Dextrose (Dextrose 50%) 50 ml Q30M PRN IV Hypoglycemia 07/07/20 15:45 10/05/20 15:44 Docusate Sodium (Colace) 100 mg THREE TIMES A DAY ORAL 07/09/20 09:00 08/08/20 08:59 07/11/20 19:10 Enoxaparin Sodium (Lovenox) 80 mg DAILY SUBQ 07/08/20 09:00 10/06/20 08:59 07/12/20 09:24 Famotidine (Pepcid) 20 mg BID ORAL 07/09/20 09:00 10/07/20 08:59 07/12/20 09:08 Insulin Aspart (NovoLOG) BEFORE MEALS AND HS SUBQ 07/07/20 16:30 10/05/20 16:29 07/11/20 20:51 Losartan Potassium (Cozaar) 25 mg DAILY ORAL 07/11/20 11:00 08/10/20 10:59 07/12/20 09:08 Laboratory Tests 07/12/20 10:00: White Blood Count 11.4H, Red Blood Count 4.25, Hemoglobin 11.8L, Hematocrit 36.4L, Mean Corpuscular Volume 86, Mean Corpuscular Hemoglobin 27.8, Mean Corpuscular Hemoglobin Concent 32.4, Red Cell Distribution Width 11.7, Platelet Count 313, Mean Platelet Volume 6.2L, Neutrophils (%) (Auto) 81.5H, Lymphocytes (%) (Auto) 12.3L, Monocytes (%) (Auto) 5.5, Eosinophils (%) (Auto) 0.0, Basophils (%) (Auto) 0.7, Sodium Level [Pending], Potassium Level [Pending], Chloride Level [Pending], Carbon Dioxide Level [Pending], Blood Urea Nitrogen [Pending], Creatinine [Pending], Estimat Glomerular Filtration Rate [Pending], Glucose Level [Pending], Calcium Level [Pending], Total Bilirubin [Pending], Aspartate Amino Transf (AST/SGOT) [Pending], Alanine Aminotransferase (ALT/SGPT) [Pending], Alkaline Phosphatase [Pending], Total Protein [Pending], Albumin [Pending], Globulin [Pending] Height (Feet): 5 Height (Inches): 3.00 Weight (Pounds): 162 General Appearance: no apparent distress Cardiovascular: tachycardia Respiratory/Chest: decreased breath sounds Abdomen: soft Anurag Bridges MD Jul 12, 2020 10:48
[2020-07-12 12:00] VITALS: BP 125/79
--- NOTE | 2020-07-12 12:58 | General Progress Note ---
Subjective Allergies: Coded Allergies: No Known Allergies (Unverified , 07/07/20) Objective Last 24 Hour Vital Signs Date Time Temp Pulse Resp B/P (MAP) Pulse Ox O2 Delivery O2 Flow Rate FiO2 07/12/20 12:00 98.2 89 22 125/79 (94) 95 07/12/20 09:08 137/80 07/12/20 08:00 Non-Rebreather 15.0 07/12/20 08:00 98.2 97 24 137/80 (99) 93 07/12/20 07:30 100 07/12/20 07:05 97 Non-Rebreather 15.0 100 07/12/20 04:00 97.7 80 23 124/86 (99) 97 07/12/20 04:00 77 07/12/20 04:00 Non-Rebreather 15.0 07/12/20 00:00 69 07/12/20 00:00 Non-Rebreather 15.0 07/12/20 00:00 98.2 60 22 118/77 (91) 95 07/11/20 20:00 Non-Rebreather 15.0 07/11/20 20:00 76 07/11/20 20:00 97.5 71 22 108/73 (85) 98 07/11/20 19:41 97 Non-Rebreather 15.0 100 07/11/20 16:00 Non-Rebreather 15.0 07/11/20 16:00 98.4 84 22 103/66 (78) 94 07/11/20 15:50 79 Intake and Output 07/11/20 07/12/20 19:00 07:00 Intake Total 400 ml Output Total 400 ml 200 ml Balance 0 ml -200 ml Intake Oral 400 ml Output Urine Total 400 ml 200 ml Laboratory Tests 07/12/20 10:00: White Blood Count 11.4H, Red Blood Count 4.25, Hemoglobin 11.8L, Hematocrit 36.4L, Mean Corpuscular Volume 86, Mean Corpuscular Hemoglobin 27.8, Mean Corpuscular Hemoglobin Concent 32.4, Red Cell Distribution Width 11.7, Platelet Count 313, Mean Platelet Volume 6.2L, Neutrophils (%) (Auto) 81.5H, Lymphocytes (%) (Auto) 12.3L, Monocytes (%) (Auto) 5.5, Eosinophils (%) (Auto) 0.0, Basophils (%) (Auto) 0.7, Sodium Level 140, Potassium Level 3.8, Chloride Level 103, Carbon Dioxide Level 27, Anion Gap 10, Blood Urea Nitrogen 21H, Creatinine 0.7, Estimat Glomerular Filtration Rate > 60, Glucose Level 159H, Calcium Level 8.8, Total Bilirubin 0.9, Aspartate Amino Transf (AST/SGOT) 26, Alanine Aminotransferase (ALT/SGPT) 19, Alkaline Phosphatase 44L, Total Protein 7.3, Albumin 2.5L, Globulin 4.8, Albumin/Globulin Ratio 0.5L Height (Feet): 5 Height (Inches): 3.00 Weight (Pounds): 162 Assessment/Plan Status: stable Assessment/Plan: S, O: I am feeling better, seems comfortable, no severe pain PHYSICAL EXAMINATION: HEAD AND NECK: Atraumatic and normocephalic. CHEST: Diffuse bronchial breathing sounds. HEART: S1 and S2. Regular rate and rhythm. ABDOMEN: Soft. No organomegaly. MUSCULOSKELETAL: No gross lateralized motor deficit. Meds: reviewed and reconciled in the chart ASSESSMENT: 1. COVID-19 pneumonia. 2. Hypoxemic respiratory failure. 3. Diabetes type 2. 4. Hyponatremia 5. GI and DVT prophylaxis. PLAN OF CARE: I left a VM for patient's brother in law, per her request. on 1334 hours on Jul 10 I spoke with patient's brother in law, I updated him about overall cnd of patient . Agreed with current management. Gail Malcolm MD Jul 12, 2020 12:58
--- NOTE | 2020-07-12 13:20 | Pulmonology Progress Note ---
Subjective ROS Limited/Unobtainable: No Interval Events: weaning failed yesterday Constitutional: Reports: no symptoms Gastrointestinal/Abdominal: Reports: no symptoms Psychiatric: Reports: no symptoms Skin: Reports: no symptoms Musculoskeletal: Reports: no symptoms Allergies: Coded Allergies: No Known Allergies (Unverified , 07/07/20) Objective Last 24 Hour Vital Signs Date Time Temp Pulse Resp B/P (MAP) Pulse Ox O2 Delivery O2 Flow Rate FiO2 07/12/20 12:00 98.2 89 22 125/79 (94) 95 07/12/20 09:08 137/80 07/12/20 08:00 Non-Rebreather 15.0 07/12/20 08:00 98.2 97 24 137/80 (99) 93 07/12/20 07:30 100 07/12/20 07:05 97 Non-Rebreather 15.0 100 07/12/20 04:00 97.7 80 23 124/86 (99) 97 07/12/20 04:00 77 07/12/20 04:00 Non-Rebreather 15.0 07/12/20 00:00 69 07/12/20 00:00 Non-Rebreather 15.0 07/12/20 00:00 98.2 60 22 118/77 (91) 95 07/11/20 20:00 Non-Rebreather 15.0 07/11/20 20:00 76 07/11/20 20:00 97.5 71 22 108/73 (85) 98 07/11/20 19:41 97 Non-Rebreather 15.0 100 07/11/20 16:00 Non-Rebreather 15.0 07/11/20 16:00 98.4 84 22 103/66 (78) 94 07/11/20 15:50 79 Intake and Output 07/11/20 07/12/20 19:00 07:00 Intake Total 400 ml Output Total 400 ml 200 ml Balance 0 ml -200 ml Intake Oral 400 ml Output Urine Total 400 ml 200 ml General Appearance: no acute distress HEENT: normocephalic Respiratory: decreased breath sounds Cardiovascular: normal peripheral pulses Abdomen: normal bowel sounds Laboratory Tests 07/12/20 10:00: White Blood Count 11.4H, Red Blood Count 4.25, Hemoglobin 11.8L, Hematocrit 36.4L, Mean Corpuscular Volume 86, Mean Corpuscular Hemoglobin 27.8, Mean Corpuscular Hemoglobin Concent 32.4, Red Cell Distribution Width 11.7, Platelet Count 313, Mean Platelet Volume 6.2L, Neutrophils (%) (Auto) 81.5H, Lymphocytes (%) (Auto) 12.3L, Monocytes (%) (Auto) 5.5, Eosinophils (%) (Auto) 0.0, Basophils (%) (Auto) 0.7, Sodium Level 140, Potassium Level 3.8, Chloride Level 103, Carbon Dioxide Level 27, Anion Gap 10, Blood Urea Nitrogen 21H, Creatinine 0.7, Estimat Glomerular Filtration Rate > 60, Glucose Level 159H, Calcium Level 8.8, Total Bilirubin 0.9, Aspartate Amino Transf (AST/SGOT) 26, Alanine Am inotransferase (ALT/SGPT) 19, Alkaline Phosphatase 44L, Total Protein 7.3, Albumin 2.5L, Globulin 4.8, Albumin/Globulin Ratio 0.5L Current Medications Medications (Trade) Dose Ordered Sig/Marian Route PRN Reason Start Time Stop Time Status Last Admin Dose Admin Acetaminophen (Tylenol) 650 mg Q6H PRN ORAL For Pain 07/07/20 15:45 08/06/20 15:44 Acetaminophen (Tylenol) 650 mg Q6H PRN ORAL FEVER 07/07/20 16:15 08/06/20 16:14 Azithromycin (Zithromax) 500 mg DAILY ORAL 07/08/20 09:00 07/15/20 08:59 07/12/20 09:08 Dexamethasone Sodium Phosphate (Decadron 10mg/ ml Inj) 6 mg DAILY IV 07/08/20 09:00 07/17/20 09:01 07/12/20 09:07 Dextrose (Dextrose 50%) 25 ml Q30M PRN IV Hypoglycemia 07/07/20 15:45 10/05/20 15:44 Dextrose (Dextrose 50%) 50 ml Q30M PRN IV Hypoglycemia 07/07/20 15:45 10/05/20 15:44 Docusate Sodium (Colace) 100 mg THREE TIMES A DAY ORAL 07/09/20 09:00 08/08/20 08:59 07/11/20 19:10 Enoxaparin Sodium (Lovenox) 80 mg DAILY SUBQ 07/08/20 09:00 10/06/20 08:59 07/12/20 09:24 Famotidine (Pepcid) 20 mg BID ORAL 07/09/20 09:00 10/07/20 08:59 07/12/20 09:08 Insulin Aspart (NovoLOG) BEFORE MEALS AND HS SUBQ 07/07/20 16:30 10/05/20 16:29 07/11/20 20:51 Losartan Potassium (Cozaar) 25 mg DAILY ORAL 07/11/20 11:00 08/10/20 10:59 07/12/20 09:08 Assessment/Plan Assessment/Plan 1. COVID-19 pneumonia. - s/p remdexsivir - on azithromycin 2. Hypoxemia. - on decadron - on NRB saturating at 91-92% -> weaning failed for several days; will continue to attempt - wean as tolerated 3. Hypertension. 4. Diabetes mellitus. 5. DVT ppx - on Lovenox Discussed with bedside RN. The care for this patient was discussed with my supervising physician Time spent for this case was approximately 31 minutes Milton Howard Jul 12, 2020 13:20
--- NOTE | 2020-07-12 14:43 | NUR ---
NURSE NOTES: Patient remains on bed, sleeping. No signs of grimacing or distress noted. Will continue to be monitored.
[2020-07-12 16:00] VITALS: BP 118/65
--- NOTE | 2020-07-12 19:15 | NUR ---
NURSE HAND-OFF REPORT: Important Events on Shift: stable Patient Status: Diet: Pending Orders: Pending Results/Labs: Pending MD notification: Latest Vital Signs: Temperature 97.0 , Pulse 78 , B/P 118 /65 , Respiratory Rate 22 , O2 SAT 97 , Nasal Cannula, O2 Flow Rate 15.0 . Vital Sign Comment: EKG Rhythm: Sinus Rhythm Rhythm change?: N MD Notified?: - MD Response: Latest Plaza Fall Score: 30 Fall Risk: Medium Risk Safety Measures: Call light Within Reach, Bed Alarm Zone 3, Side Rails Side Rails x2, Bed position Low and Locked. Fall Precautions: Yellow Socks Report given to LIANA Rhodes.
--- NOTE | 2020-07-12 19:15 | NUR ---
NURSE NOTES: Received report from Felipe. Patient vitals stable at this time. Patient on 15L nonrebreather with sats 96%. Patient resting at this time. Patient denies pain at this time. RN will continue to monitor.
[2020-07-12 20:00] VITALS: BP 117/64
--- NOTE | 2020-07-12 20:48 | Cardiology Progress Note ---
Assessment/Plan Status: stable Assessment/Plan 1. COVID-19 viral PNA on remdesivir and dexamethasone 2. Respiratory failure 2/2 acute PNA NRB mask 3. HFpEF acute on chronic diastolic HF with preserved EF EF 65%, compensated 4. DMII 5. GERD Echo negative for acute decompensated HF. Diuresis as needed with IV Lasix. SBP and HR controlled. Subjective ROS Limited/Unobtainable: Yes Subjective In isolation, no distress Objective Last 24 Hour Vital Signs Date Time Temp Pulse Resp B/P (MAP) Pulse Ox O2 Delivery O2 Flow Rate FiO2 07/12/20 20:00 96.8 68 18 117/64 (81) 99 07/12/20 20:00 Non-Rebreather 15.0 07/12/20 18:59 97 Non-Rebreather 15.0 100 07/12/20 16:00 97.0 75 22 118/65 (82) 91 07/12/20 16:00 Non-Rebreather 15.0 07/12/20 16:00 78 07/12/20 12:00 Non-Rebreather 15.0 07/12/20 12:00 98.2 89 22 125/79 (94) 95 07/12/20 11:30 91 07/12/20 09:08 137/80 07/12/20 08:00 Non-Rebreather 15.0 07/12/20 08:00 98.2 97 24 137/80 (99) 93 07/12/20 07:30 100 07/12/20 07:05 97 Non-Rebreather 15.0 100 07/12/20 04:00 97.7 80 23 124/86 (99) 97 07/12/20 04:00 77 07/12/20 04:00 Non-Rebreather 15.0 07/12/20 00:00 69 07/12/20 00:00 Non-Rebreather 15.0 07/12/20 00:00 98.2 60 22 118/77 (91) 95 General Appearance: no apparent distress Neck: no JVD Rhythm: NSR Cardiovascular: normal rate, regular rhythm Respiratory/Chest: crackles/rales Extremities: trace edema Intake and Output 07/11/20 07/12/20 19:00 07:00 Intake Total 400 ml Output Total 400 ml 200 ml Balance 0 ml -200 ml Intake Oral 400 ml Output Urine Total 400 ml 200 ml Laboratory Tests Test 07/12/20 10:00 White Blood Count 11.4 K/UL (4.8-10.8) H Red Blood Count 4.25 M/UL (4.20-5.40) Hemoglobin 11.8 G/DL (12.0-16.0) L Hematocrit 36.4 % (37.0-47.0) L Mean Corpuscular Volume 86 FL (80-99) Mean Corpuscular Hemoglobin 27.8 PG (27.0-31.0) Mean Corpuscular Hemoglobin Concent 32.4 G/DL (32.0-36.0) Red Cell Distribution Width 11.7 % (11.6-14.8) Platelet Count 313 K/UL (150-450) Mean Platelet Volume 6.2 FL (6.5-10.1) L Neutrophils (%) (Auto) 81.5 % (45.0-75.0) H Lymphocytes (%) (Auto) 12.3 % (20.0-45.0) L Monocytes (%) (Auto) 5.5 % (1.0-10.0) Eosinophils (%) (Auto) 0.0 % (0.0-3.0) Basophils (%) (Auto) 0.7 % (0.0-2.0) Sodium Level 140 MMOL/L (136-145) Potassium Level 3.8 MMOL/L (3.5-5.1) Chloride Level 103 MMOL/L (98-107) Carbon Dioxide Level 27 MMOL/L (21-32) Anion Gap 10 mmol/L (5-15) Blood Urea Nitrogen 21 mg/dL (7-18) H Creatinine 0.7 MG/DL (0.55-1.30) Estimat Glomerular Filtration Rate > 60 mL/min (>60) Glucose Level 159 MG/DL (74-106) H Calcium Level 8.8 MG/DL (8.5-10.1) Total Bilirubin 0.9 MG/DL (0.2-1.0) Aspartate Amino Transf (AST/SGOT) 26 U/L (15-37) Alanine Aminotransferase (ALT/SGPT) 19 U/L (12-78) Alkaline Phosphatase 44 U/L (46-116) L Total Protein 7.3 G/DL (6.4-8.2) Albumin 2.5 G/DL (3.4-5.0) L Globulin 4.8 g/dL Albumin/Globulin Ratio 0.5 (1.0-2.7) L Blanca Lobato PA-C Jul 12, 2020 20:48
--- NOTE | 2020-07-12 21:52 | Infectious Diseases Prog Note ---
Assessment/Plan Problems: (1) COVID-19 virus infection Assessment & Plan: complicated with pneumonia and hypoxemia, S/P remdisvir for 5 days, PCR test is positive which confirm the diagnosis , keep patient in enhanced droplet isolation, titrate oxygen to keep O2 sat more than 90% (2) Dyspnea due to COVID-19 Assessment & Plan: continue respiratory support with BiPAP PRN and nonrebreather mask with high flow oxygen and titrate as needed, monitor chest x- ray and ABG (3) Pneumonia due to COVID-19 virus Assessment & Plan: already on Remdisvir IV for 5 days, and Decadron, monitor chest x-ray (4) Acute respiratory failure due to COVID-19 Assessment & Plan: suspect due to pneumonitis from COVID 19, continue respiratory support with High flow O2 via NRB mask and BIPAP PRN , close monitor of ABG and chest x-ray Subjective Constitutional: Reports: no symptoms HEENT: Reports: no symptoms Respiratory: Reports: shortness of breath, dry cough Breasts: Reports: no symptoms Cardiovascular: Reports: no symptoms Gastrointestinal/Abdominal: Reports: no symptoms Genitourinary: Reports: no symptoms Neurologic: Reports: no symptoms Psychiatric: Reports: no symptoms Skin: Reports: no symptoms Endocrine: Reports: no symptoms Hematologic: Reports: no symptoms Musculoskeletal: Reports: no symptoms Allergies: Coded Allergies: No Known Allergies (Unverified , 07/07/20) Objective Last 24 Hour Vital Signs Date Time Temp Pulse Resp B/P (MAP) Pulse Ox O2 Delivery O2 Flow Rate FiO2 07/12/20 20:00 96.8 68 18 117/64 (81) 99 07/12/20 20:00 Non-Rebreather 15.0 07/12/20 18:59 97 Non-Rebreather 15.0 100 07/12/20 16:00 97.0 75 22 118/65 (82) 91 07/12/20 16:00 Non-Rebreather 15.0 07/12/20 16:00 78 07/12/20 12:00 Non-Rebreather 15.0 07/12/20 12:00 98.2 89 22 125/79 (94) 95 07/12/20 11:30 91 07/12/20 09:08 137/80 07/12/20 08:00 Non-Rebreather 15.0 07/12/20 08:00 98.2 97 24 137/80 (99) 93 07/12/20 07:30 100 07/12/20 07:05 97 Non-Rebreather 15.0 100 07/12/20 04:00 97.7 80 23 124/86 (99) 97 07/12/20 04:00 77 07/12/20 04:00 Non-Rebreather 15.0 07/12/20 00:00 69 07/12/20 00:00 Non-Rebreather 15.0 07/12/20 00:00 98.2 60 22 118/77 (91) 95 Height (Feet): 5 Height (Inches): 3.00 Weight (Pounds): 162 General Appearance: WD/WN, no acute distress HEENT: normocephalic, atraumatic, anicteric, mucous membranes moist, PERRL Respiratory/Chest: chest wall non-tender, no respiratory distress, no accessory muscle use, decreased breath sounds, crackles/rales Cardiovascular: normal peripheral pulses, normal rate, regular rhythm, no gallop/murmur, no JVD Abdomen: normal bowel sounds, soft, non tender, no organomegaly, non distended, no mass, no scars Genitourinary: normal external genitalia Extremities: no cyanosis, no clubbing Skin: no rash, no lesions Laboratory Tests Test 07/12/20 10:00 White Blood Count 11.4 K/UL (4.8-10.8) H Red Blood Count 4.25 M/UL (4.20-5.40) Hemoglobin 11.8 G/DL (12.0-16.0) L Hematocrit 36.4 % (37.0-47.0) L Mean Corpuscular Volume 86 FL (80-99) Mean Corpuscular Hemoglobin 27.8 PG (27.0-31.0) Mean Corpuscular Hemoglobin Concent 32.4 G/DL (32.0-36.0) Red Cell Distribution Width 11.7 % (11.6-14.8) Platelet Count 313 K/UL (150-450) Mean Platelet Volume 6.2 FL (6.5-10.1) L Neutrophils (%) (Auto) 81.5 % (45.0-75.0) H Lymphocytes (%) (Auto) 12.3 % (20.0-45.0) L Monocytes (%) (Auto) 5.5 % (1.0-10.0) Eosinophils (%) (Auto) 0.0 % (0.0-3.0) Basophils (%) (Auto) 0.7 % (0.0-2.0) Sodium Level 140 MMOL/L (136-145) Potassium Level 3.8 MMOL/L (3.5-5.1) Chloride Level 103 MMOL/L (98-107) Carbon Dioxide Level 27 MMOL/L (21-32) Anion Gap 10 mmol/L (5-15) Blood Urea Nitrogen 21 mg/dL (7-18) H Creatinine 0.7 MG/DL (0.55-1.30) Estimat Glomerular Filtration Rate > 60 mL/min (>60) Glucose Level 159 MG/DL (74-106) H Calcium Level 8.8 MG/DL (8.5-10.1) Total Bilirubin 0.9 MG/DL (0.2-1.0) Aspartate Amino Transf (AST/SGOT) 26 U/L (15-37) Alanine Aminotransferase (ALT/SGPT) 19 U/L (12-78) Alkaline Phosphatase 44 U/L (46-116) L Total Protein 7.3 G/DL (6.4-8.2) Albumin 2.5 G/DL (3.4-5.0) L Globulin 4.8 g/dL Albumin/Globulin Ratio 0.5 (1.0-2.7) L Current Medications Medications (Trade) Dose Ordered Sig/Marian Route PRN Reason Start Time Stop Time Status Last Admin Dose Admin Acetaminophen (Tylenol) 650 mg Q6H PRN ORAL For Pain 07/07/20 15:45 08/06/20 15:44 Acetaminophen (Tylenol) 650 mg Q6H PRN ORAL FEVER 07/07/20 16:15 08/06/20 16:14 Azithromycin (Zithromax) 500 mg DAILY ORAL 07/08/20 09:00 07/15/20 08:59 07/12/20 09:08 Dexamethasone Sodium Phosphate (Decadron 10mg/ ml Inj) 6 mg DAILY IV 07/08/20 09:00 07/17/20 09:01 07/12/20 09:07 Dextrose (Dextrose 50%) 25 ml Q30M PRN IV Hypoglycemia 07/07/20 15:45 10/05/20 15:44 Dextrose (Dextrose 50%) 50 ml Q30M PRN IV Hypoglycemia 07/07/20 15:45 10/05/20 15:44 Docusate Sodium (Colace) 100 mg EVERY 12 HOURS ORAL 07/12/20 21:00 08/08/20 08:59 07/12/20 20:43 Enoxaparin Sodium (Lovenox) 80 mg DAILY SUBQ 07/08/20 09:00 10/06/20 08:59 07/12/20 09:24 Famotidine (Pepcid) 20 mg BID ORAL 07/09/20 09:00 10/07/20 08:59 07/12/20 18:27 Insulin Aspart (NovoLOG) BEFORE MEALS AND HS SUBQ 07/07/20 16:30 10/05/20 16:29 07/12/20 20:42 Losartan Potassium (Cozaar) 25 mg DAILY ORAL 07/11/20 11:00 08/10/20 10:59 07/12/20 09:08 Nataliia Velazquez M.D. Jul 12, 2020 21:52
[2020-07-13] VITALS: BP 125/76
--- NOTE | 2020-07-13 | NUR ---
NURSE NOTES: Patient vitals stable. Patient sleeping. RN will continue to monitor.
[2020-07-13 04:00] VITALS: BP 127/81
[2020-07-13] MEDS: NovoLOG Insulin Flexpen SUBQ SCH ×4 (05:25→20:38)
--- NOTE | 2020-07-13 07:30 | NUR ---
NURSE NOTES:RECEIVED REPORT FROM NINFA CURIEL RN. RECEIVED PT ON ISOLATION ROOM FOR DROPLET PRECAUTION.PT IS POSITIVE COVID-19. PT AWAKE AND ALERT USING NON-REBREATHING MASK 15/MINTS ,O2 SAT 92%. PT DENIES CP AT THIS TIME.H/L ON RT HAND G# 20 PATENT AND INTACT. FULL BODY ASSESSMENT DONE. NO ACUTE DISTRESS NOTED AT THIS TIME. WILL CONT TO MONITOR.
[2020-07-13 08:00] VITALS: BP 135/77
--- NOTE | 2020-07-13 09:07 | Pulmonology Progress Note ---
Subjective ROS Limited/Unobtainable: No Interval Events: weaning failed yesterday Constitutional: Reports: no symptoms Gastrointestinal/Abdominal: Reports: no symptoms Psychiatric: Reports: no symptoms Skin: Reports: no symptoms Musculoskeletal: Reports: no symptoms Allergies: Coded Allergies: No Known Allergies (Unverified , 07/07/20) Objective Last 24 Hour Vital Signs Date Time Temp Pulse Resp B/P (MAP) Pulse Ox O2 Delivery O2 Flow Rate FiO2 07/13/20 08:00 Non-Rebreather 15.0 07/13/20 08:00 98.2 87 20 135/77 (96) 91 07/13/20 04:00 Non-Rebreather 15.0 07/13/20 04:00 96.8 78 20 127/81 (96) 93 07/13/20 04:00 67 07/13/20 00:00 64 07/13/20 00:00 97.7 68 20 125/76 (92) 92 07/13/20 00:00 Non-Rebreather 15.0 07/12/20 20:00 96.8 68 18 117/64 (81) 99 07/12/20 20:00 67 07/12/20 20:00 Non-Rebreather 15.0 07/12/20 18:59 97 Non-Rebreather 15.0 100 07/12/20 16:00 97.0 75 22 118/65 (82) 91 07/12/20 16:00 Non-Rebreather 15.0 07/12/20 16:00 78 07/12/20 12:00 Non-Rebreather 15.0 07/12/20 12:00 98.2 89 22 125/79 (94) 95 07/12/20 11:30 91 07/12/20 09:08 137/80 Intake and Output 07/12/20 07/13/20 19:00 07:00 Intake Total 500 ml Balance 500 ml Intake Oral 500 ml # Voids 3 2 # Bowel Movements 2 General Appearance: no acute distress HEENT: normocephalic Respiratory: decreased breath sounds Cardiovascular: normal peripheral pulses Abdomen: normal bowel sounds Laboratory Tests 07/12/20 10:00: White Blood Count 11.4H, Red Blood Count 4.25, Hemoglobin 11.8L, Hematocrit 36.4L, Mean Corpuscular Volume 86, Mean Corpuscular Hemoglobin 27.8, Mean Corpuscular Hemoglobin Concent 32.4, Red Cell Distribution Width 11.7, Platelet Count 313, Mean Platelet Volume 6.2L, Neutrophils (%) (Auto) 81.5H, Lymphocytes (%) (Auto) 12.3L, Monocytes (%) (Auto) 5.5, Eosinophils (%) (Auto) 0.0, Ba sophils (%) (Auto) 0.7, Sodium Level 140, Potassium Level 3.8, Chloride Level 103, Carbon Dioxide Level 27, Anion Gap 10, Blood Urea Nitrogen 21H, Creatinine 0.7, Estimat Glomerular Filtration Rate > 60, Glucose Level 159H, Calcium Level 8.8, Total Bilirubin 0.9, Aspartate Amino Transf (AST/SGOT) 26, Alanine Aminotransferase (ALT/SGPT) 19, Alkaline Phosphatase 44L, Total Protein 7.3, Albumin 2.5L, Globulin 4.8, Albumin/Globulin Ratio 0.5L Current Medications Medications (Trade) Dose Ordered Sig/Marian Route PRN Reason Start Time Stop Time Status Last Admin Dose Admin Acetaminophen (Tylenol) 650 mg Q6H PRN ORAL For Pain 07/07/20 15:45 08/06/20 15:44 Acetaminophen (Tylenol) 650 mg Q6H PRN ORAL FEVER 07/07/20 16:15 08/06/20 16:14 Azithromycin (Zithromax) 500 mg DAILY ORAL 07/08/20 09:00 07/15/20 08:59 07/12/20 09:08 Dexamethasone Sodium Phosphate (Decadron 10mg/ ml Inj) 6 mg DAILY IV 07/08/20 09:00 07/17/20 09:01 07/12/20 09:07 Dextrose (Dextrose 50%) 25 ml Q30M PRN IV Hypoglycemia 07/07/20 15:45 10/05/20 15:44 Dextrose (Dextrose 50%) 50 ml Q30M PRN IV Hypoglycemia 07/07/20 15:45 10/05/20 15:44 Docusate Sodium (Colace) 100 mg EVERY 12 HOURS ORAL 07/12/20 21:00 08/08/20 08:59 07/12/20 20:43 Enoxaparin Sodium (Lovenox) 80 mg DAILY SUBQ 07/08/20 09:00 10/06/20 08:59 07/12/20 09:24 Famotidine (Pepcid) 20 mg BID ORAL 07/09/20 09:00 10/07/20 08:59 07/12/20 18:27 Insulin Aspart (NovoLOG) BEFORE MEALS AND HS SUBQ 07/07/20 16:30 10/05/20 16:29 07/12/20 20:42 Losartan Potassium (Cozaar) 25 mg DAILY ORAL 07/11/20 11:00 08/10/20 10:59 07/12/20 09:08 Assessment/Plan Assessment/Plan 1. COVID-19 pneumonia. - COVID-19 PCR positive 07/07 -> continue isolation - s/p remdexsivir - on azithromycin 2. Hypoxemia. - on decadron (07/08-) - now tolerating Venturi mask 12L -> will continue to wean as tolerated 3. Hypertension. 4. Diabetes mellitus. 5. DVT ppx - on Lovenox Discussed with bedside RN. The care for this patient was discussed with my supervising physician Time spent for this case was approximately 31 minutes Mliton Howard Jul 13, 2020 09:07
[2020-07-13] MEDS: Docusate 100mg cap ORAL SCH ×2 (09:53→20:38)
[2020-07-13] MEDS: Azithromycin 250mg tab ORAL SCH (09:53)
[2020-07-13] MEDS: Losartan 25mg tab ORAL SCH (09:54)
[2020-07-13] MEDS: dexAMETHasone 10mg/ml Inj IV SCH (09:54)
--- NOTE | 2020-07-13 09:55 | Cardiology Progress Note ---
Assessment/Plan Status: stable Assessment/Plan 1. COVID-19 viral PNA on remdesivir and dexamethasone 2. Respiratory failure 2/2 acute PNA NRB mask 3. HFpEF acute on chronic diastolic HF with preserved EF EF 65%, compensated 4. DMII 5. GERD Echo negative for acute decompensated HF. Diuresis as needed with IV Lasix. SBP and HR controlled. Subjective ROS Limited/Unobtainable: Yes Subjective In isolation, no distress Objective Last 24 Hour Vital Signs Date Time Temp Pulse Resp B/P (MAP) Pulse Ox O2 Delivery O2 Flow Rate FiO2 07/13/20 08:00 Non-Rebreather 15.0 07/13/20 08:00 98.2 87 20 135/77 (96) 91 07/13/20 04:00 Non-Rebreather 15.0 07/13/20 04:00 96.8 78 20 127/81 (96) 93 07/13/20 04:00 67 07/13/20 00:00 64 07/13/20 00:00 97.7 68 20 125/76 (92) 92 07/13/20 00:00 Non-Rebreather 15.0 07/12/20 20:00 96.8 68 18 117/64 (81) 99 07/12/20 20:00 67 07/12/20 20:00 Non-Rebreather 15.0 07/12/20 18:59 97 Non-Rebreather 15.0 100 07/12/20 16:00 97.0 75 22 118/65 (82) 91 07/12/20 16:00 Non-Rebreather 15.0 07/12/20 16:00 78 07/12/20 12:00 Non-Rebreather 15.0 07/12/20 12:00 98.2 89 22 125/79 (94) 95 07/12/20 11:30 91 General Appearance: alert EENT: PERRL/EOMI Neck: no JVD Cardiovascular: normal rate Respiratory/Chest: crackles/rales Abdomen: soft Extremities: trace edema 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 Intake and Output 07/12/20 07/13/20 19:00 07:00 Intake Total 500 ml Balance 500 ml Intake Oral 500 ml # Voids 3 2 # Bowel Movements 2 Laboratory Tests Test 07/12/20 10:00 White Blood Count 11.4 K/UL (4.8-10.8) H Red Blood Count 4.25 M/UL (4.20-5.40) Hemoglobin 11.8 G/DL (12.0-16.0) L Hematocrit 36.4 % (37.0-47.0) L Mean Corpuscular Volume 86 FL (80-99) Mean Corpuscular Hemoglobin 27.8 PG (27.0-31.0) Mean Corpuscular Hemoglobin Concent 32.4 G/DL (32.0-36.0) Red Cell Distribution Width 11.7 % (11.6-14.8) Platelet Count 313 K/UL (150-450) Mean Platelet Volume 6.2 FL (6.5-10.1) L Neutrophils (%) (Auto) 81.5 % (45.0-75.0) H Lymphocytes (%) (Auto) 12.3 % (20.0-45.0) L Monocytes (%) (Auto) 5.5 % (1.0-10.0) Eosinophils (%) (Auto) 0.0 % (0.0-3.0) Basophils (%) (Auto) 0.7 % (0.0-2.0) Sodium Level 140 MMOL/L (136-145) Potassium Level 3.8 MMOL/L (3.5-5.1) Chloride Level 103 MMOL/L (98-107) Carbon Dioxide Level 27 MMOL/L (21-32) Anion Gap 10 mmol/L (5-15) Blood Urea Nitrogen 21 mg/dL (7-18) H Creatinine 0.7 MG/DL (0.55-1.30) Estimat Glomerular Filtration Rate > 60 mL/min (>60) Glucose Level 159 MG/DL (74-106) H Calcium Level 8.8 MG/DL (8.5-10.1) Total Bilirubin 0.9 MG/DL (0.2-1.0) Aspartate Amino Transf (AST/SGOT) 26 U/L (15-37) Alanine Aminotransferase (ALT/SGPT) 19 U/L (12-78) Alkaline Phosphatase 44 U/L (46-116) L Total Protein 7.3 G/DL (6.4-8.2) Albumin 2.5 G/DL (3.4-5.0) L Globulin 4.8 g/dL Albumin/Globulin Ratio 0.5 (1.0-2.7) L Blanca Lobato PA-C Jul 13, 2020 09:55
[2020-07-13] MEDS: Enoxaparin 80mg Inj SUBQ SCH (09:57)
--- NOTE | 2020-07-13 10:15 | General Progress Note ---
Subjective Allergies: Coded Allergies: No Known Allergies (Unverified , 07/07/20) Objective Last 24 Hour Vital Signs Date Time Temp Pulse Resp B/P (MAP) Pulse Ox O2 Delivery O2 Flow Rate FiO2 07/13/20 09:54 135/77 07/13/20 08:00 Non-Rebreather 15.0 07/13/20 08:00 98.2 87 20 135/77 (96) 91 07/13/20 04:00 Non-Rebreather 15.0 07/13/20 04:00 96.8 78 20 127/81 (96) 93 07/13/20 04:00 67 07/13/20 00:00 64 07/13/20 00:00 97.7 68 20 125/76 (92) 92 07/13/20 00:00 Non-Rebreather 15.0 07/12/20 20:00 96.8 68 18 117/64 (81) 99 07/12/20 20:00 67 07/12/20 20:00 Non-Rebreather 15.0 07/12/20 18:59 97 Non-Rebreather 15.0 100 07/12/20 16:00 97.0 75 22 118/65 (82) 91 07/12/20 16:00 Non-Rebreather 15.0 07/12/20 16:00 78 07/12/20 12:00 Non-Rebreather 15.0 07/12/20 12:00 98.2 89 22 125/79 (94) 95 07/12/20 11:30 91 Intake and Output 07/12/20 07/13/20 19:00 07:00 Intake Total 500 ml Balance 500 ml Intake Oral 500 ml # Voids 3 2 # Bowel Movements 2 Height (Feet): 5 Height (Inches): 3.00 Weight (Pounds): 162 Assessment/Plan Status: stable Assessment/Plan: S, O: I am feeling more sob, seems in mild sob, no severe pain PHYSICAL EXAMINATION: HEAD AND NECK: Atraumatic and normocephalic. CHEST: Diffuse bronchial breathing sounds. HEART: S1 and S2. Regular rate and rhythm. ABDOMEN: Soft. No organomegaly. MUSCULOSKELETAL: No gross lateralized motor deficit. Meds: reviewed and reconciled in the chart ASSESSMENT: 1. COVID-19 pneumonia. 2. Hypoxemic respiratory failure. 3. Diabetes type 2. 4. Hyponatremia 5. GI and DVT prophylaxis. PLAN OF CARE: I left a VM for patient's brother in law, per her request. on 1334 hours on Jul 10 I spoke with patient's brother in law, I updated him about overall cnd of patient . Agreed with current management. given persistent high level of O2 requirement. I will repeat CXR Gail Malcolm MD Jul 13, 2020 10:15
[2020-07-13 12:00] VITALS: BP 121/75
--- NOTE | 2020-07-13 12:23 | Nephrology Progress Note ---
Assessment/Plan Problem List: (1) Hyponatremia (2) Hypoxia (3) Pneumonitis (4) Acute respiratory failure due to COVID-19 (5) DMII (diabetes mellitus, type 2) (6) HTN (hypertension) Assessment Hyponatremia, improved with saline infusion COVID-19 infection Pneumonia, acute respiratory failure, hypoxia Diabetes mellitus Hypertension Plan July 12: Today's labs pending. Medication list reviewed. Continue per current management and consultants. July 11: Labs reviewed. Renal parameters stable. July 10: Labs reviewed. Renal parameters electrolytes stable. Continue per consultants. July 09: Labs reviewed. Renal parameters and electrolytes stable. Continue per ID and pulmonary. Objective Objective Last 24 Hour Vital Signs Date Time Temp Pulse Resp B/P (MAP) Pulse Ox O2 Delivery O2 Flow Rate FiO2 07/13/20 12:00 Non-Rebreather 15.0 07/13/20 12:00 97.7 97 22 121/75 (90) 93 07/13/20 09:54 135/77 07/13/20 08:00 Non-Rebreather 15.0 07/13/20 08:00 98.2 87 20 135/77 (96) 91 07/13/20 07:28 82 07/13/20 04:00 Non-Rebreather 15.0 07/13/20 04:00 96.8 78 20 127/81 (96) 93 07/13/20 04:00 67 07/13/20 00:00 64 07/13/20 00:00 97.7 68 20 125/76 (92) 92 07/13/20 00:00 Non-Rebreather 15.0 07/12/20 20:00 96.8 68 18 117/64 (81) 99 07/12/20 20:00 67 07/12/20 20:00 Non-Rebreather 15.0 07/12/20 18:59 97 Non-Rebreather 15.0 100 07/12/20 16:00 97.0 75 22 118/65 (82) 91 07/12/20 16:00 Non-Rebreather 15.0 07/12/20 16:00 78 Intake and Output 07/12/20 07/13/20 19:00 07:00 Intake Total 500 ml Balance 500 ml Intake Oral 500 ml # Voids 3 2 # Bowel Movements 2 Height (Feet): 5 Height (Inches): 3.00 Weight (Pounds): 162 Anurag Bridges MD Jul 13, 2020 12:23
--- NOTE | 2020-07-13 14:15 | Nephrology Progress Note ---
Assessment/Plan Problem List: (1) Hyponatremia (2) Hypoxia (3) Pneumonitis (4) Acute respiratory failure due to COVID-19 (5) DMII (diabetes mellitus, type 2) (6) HTN (hypertension) Assessment Hyponatremia, improved with saline infusion COVID-19 infection Pneumonia, acute respiratory failure, hypoxia Diabetes mellitus Hypertension Plan July 13: No labs drawn today. Stable from renal standpoint of view. July 12: Today's labs pending. Medication list reviewed. Continue per current management and consultants. July 11: Labs reviewed. Renal parameters stable. July 10: Labs reviewed. Renal parameters electrolytes stable. Continue per consultants. July 09: Labs reviewed. Renal parameters and electrolytes stable. Continue per ID and pulmonary. Subjective ROS Limited/Unobtainable: Yes Objective Objective Last 24 Hour Vital Signs Date Time Temp Pulse Resp B/P (MAP) Pulse Ox O2 Delivery O2 Flow Rate FiO2 07/13/20 12:00 86 07/13/20 12:00 Non-Rebreather 15.0 07/13/20 12:00 97.7 97 22 121/75 (90) 93 07/13/20 09:54 135/77 07/13/20 08:00 Non-Rebreather 15.0 07/13/20 08:00 98.2 87 20 135/77 (96) 91 07/13/20 07:28 82 07/13/20 04:00 Non-Rebreather 15.0 07/13/20 04:00 96.8 78 20 127/81 (96) 93 07/13/20 04:00 67 07/13/20 00:00 64 07/13/20 00:00 97.7 68 20 125/76 (92) 92 07/13/20 00:00 Non-Rebreather 15.0 07/12/20 20:00 96.8 68 18 117/64 (81) 99 07/12/20 20:00 67 07/12/20 20:00 Non-Rebreather 15.0 07/12/20 18:59 97 Non-Rebreather 15.0 100 07/12/20 16:00 97.0 75 22 118/65 (82) 91 07/12/20 16:00 Non-Rebreather 15.0 07/12/20 16:00 78 Intake and Output 07/12/20 07/13/20 19:00 07:00 Intake Total 500 ml Balance 500 ml Intake Oral 500 ml # Voids 3 2 # Bowel Movements 2 Current Medications Medications (Trade) Dose Ordered Sig/Marian Route PRN Reason Start Time Stop Time Status Last Admin Dose Admin Acetaminophen (Tylenol) 650 mg Q6H PRN ORAL For Pain 07/07/20 15:45 08/06/20 15:44 Acetaminophen (Tylenol) 650 mg Q6H PRN ORAL FEVER 07/07/20 16:15 08/06/20 16:14 Azithromycin (Zithromax) 500 mg DAILY ORAL 07/08/20 09:00 07/15/20 08:59 07/13/20 09:53 Dexamethasone Sodium Phosphate (Decadron 10mg/ ml Inj) 6 mg DAILY IV 07/08/20 09:00 07/17/20 09:01 07/13/20 09:54 Dextrose (Dextrose 50%) 25 ml Q30M PRN IV Hypoglycemia 07/07/20 15:45 10/05/20 15:44 Dextrose (Dextrose 50%) 50 ml Q30M PRN IV Hypoglycemia 07/07/20 15:45 10/05/20 15:44 Docusate Sodium (Colace) 100 mg EVERY 12 HOURS ORAL 07/12/20 21:00 08/08/20 08:59 07/13/20 09:53 Enoxaparin Sodium (Lovenox) 80 mg DAILY SUBQ 07/08/20 09:00 10/06/20 08:59 07/13/20 09:57 Famotidine (Pepcid) 20 mg BID ORAL 07/09/20 09:00 10/07/20 08:59 07/13/20 09:53 Insulin Aspart (NovoLOG) BEFORE MEALS AND HS SUBQ 07/07/20 16:30 10/05/20 16:29 07/13/20 12:46 Losartan Potassium (Cozaar) 25 mg DAILY ORAL 07/11/20 11:00 08/10/20 10:59 07/13/20 09:54 Height (Feet): 5 Height (Inches): 3.00 Weight (Pounds): 162 General Appearance: no apparent distress EENT: other - On nonrebreather mask Cardiovascular: tachycardia Respiratory/Chest: decreased breath sounds Anurag Bridges MD Jul 13, 2020 14:15
--- NOTE | 2020-07-13 15:51 | Diagnostic Imaging Report ---
Indication: Shortness of breath Technique: One view of the chest Comparison: 07/07/2020 Findings: Unchanged bilateral infiltrates. Normal heart size. Impression: Unchanged, over 6 days, findings as above.
[2020-07-13 16:00] VITALS: BP 128/84
--- NOTE | 2020-07-13 16:15 | NUR ---
CASE MANAGEMENT:REVIEW 07/13/20 SI: COVID PNEUMONIA 97.7 86 22 121/75 93% ON 15L/100%/NRB H/H-12.0/39.0 PLT+484 IS: COZAAR PO QD IV DECADRON Q24 PEPCID PO BID LOVENOX SQ QD AZITHROMAX PO QD : STEP DOWN UNIT DCP: FROM HOME PLAN: SUPPORTIVE CARE COMPLETED REMDESIVIR WEAN O2 ABLE CONTINUE STEROIDS
--- NOTE | 2020-07-13 19:15 | NUR ---
NURSE HAND-OFF REPORT: Important Events on Shift: Patient Status: Diet: Pending Orders: Pending Results/Labs: Pending MD notification: Latest Vital Signs: Temperature 97.8 , Pulse 79 , B/P 128 /84 , Respiratory Rate 22 , O2 SAT 93 , Nasal Cannula, O2 Flow Rate 15.0 . Vital Sign Comment: EKG Rhythm: Sinus Rhythm Rhythm change?: N MD Notified?: - MD Response: Latest Plaza Fall Score: 30 Fall Risk: Medium Risk Safety Measures: Call light Within Reach, Bed Alarm Zone 3, Side Rails Side Rails x2, Bed position Low and Locked. Fall Precautions: Yellow Socks Report given to FELI GAINES.
--- NOTE | 2020-07-13 19:30 | NUR ---
NURSE NOTES: Received report from Alessandro Garcia. Patient resting in bed. Patient on 15L non rebreather. Patient desats quickly upon any exertion. Patient has bipap ordered PRN. Patient denies pain at this time. RN will continue to monitor.
[2020-07-13 20:00] VITALS: BP 111/71
--- NOTE | 2020-07-13 20:56 | Infectious Diseases Prog Note ---
Assessment/Plan Problems: (1) COVID-19 virus infection Assessment & Plan: complicated with pneumonia and hypoxemia, S/P remdisvir for 5 days, PCR test is positive which confirm the diagnosis , keep patient in enhanced droplet isolation, titrate oxygen to keep O2 sat more than 90% (2) Dyspnea due to COVID-19 Assessment & Plan: continue respiratory support with BiPAP PRN and nonrebreather mask with high flow oxygen and titrate as needed, monitor chest x- ray and ABG (3) Pneumonia due to COVID-19 virus Assessment & Plan: already on Remdisvir IV for 5 days, and Decadron, monitor chest x-ray (4) Acute respiratory failure due to COVID-19 Assessment & Plan: suspect due to pneumonitis from COVID 19, continue respiratory support with High flow O2 via NRB mask and BIPAP PRN , close monitor of ABG and chest x-ray Subjective Constitutional: Reports: no symptoms HEENT: Reports: no symptoms Respiratory: Reports: shortness of breath, dry cough Breasts: Reports: no symptoms Cardiovascular: Reports: no symptoms Gastrointestinal/Abdominal: Reports: no symptoms Genitourinary: Reports: no symptoms Neurologic: Reports: no symptoms Psychiatric: Reports: no symptoms Skin: Reports: no symptoms Endocrine: Reports: no symptoms Hematologic: Reports: no symptoms Musculoskeletal: Reports: no symptoms Allergies: Coded Allergies: No Known Allergies (Unverified , 07/07/20) Objective Last 24 Hour Vital Signs Date Time Temp Pulse Resp B/P (MAP) Pulse Ox O2 Delivery O2 Flow Rate FiO2 07/13/20 20:00 98.2 77 18 111/71 (84) 97 07/13/20 20:00 Non-Rebreather 15.0 07/13/20 16:00 97.8 79 22 128/84 (99) 93 07/13/20 16:00 82 07/13/20 16:00 Non-Rebreather 15.0 07/13/20 12:00 86 07/13/20 12:00 Non-Rebreather 15.0 07/13/20 12:00 97.7 97 22 121/75 (90) 93 07/13/20 09:54 135/77 07/13/20 08:00 Non-Rebreather 15.0 07/13/20 08:00 98.2 87 20 135/77 (96) 91 07/13/20 07:50 96 Non-Rebreather 15.0 100 07/13/20 07:28 82 07/13/20 04:00 Non-Rebreather 15.0 07/13/20 04:00 96.8 78 20 127/81 (96) 93 07/13/20 04:00 67 07/13/20 00:00 64 07/13/20 00:00 97.7 68 20 125/76 (92) 92 07/13/20 00:00 Non-Rebreather 15.0 Height (Feet): 5 Height (Inches): 3.00 Weight (Pounds): 162 General Appearance: WD/WN, no acute distress HEENT: normocephalic, atraumatic, anicteric, mucous membranes moist, PERRL Respiratory/Chest: chest wall non-tender, no respiratory distress, no accessory muscle use, decreased breath sounds, crackles/rales Cardiovascular: normal peripheral pulses, normal rate, regular rhythm, no gallop/murmur, no JVD Abdomen: normal bowel sounds, soft, non tender, no organomegaly, non distended, no mass, no scars Genitourinary: normal external genitalia Extremities: no cyanosis, no clubbing Skin: no rash, no lesions Current Medications Medications (Trade) Dose Ordered Sig/Marian Route PRN Reason Start Time Stop Time Status Last Admin Dose Admin Acetaminophen (Tylenol) 650 mg Q6H PRN ORAL For Pain 07/07/20 15:45 08/06/20 15:44 Acetaminophen (Tylenol) 650 mg Q6H PRN ORAL FEVER 07/07/20 16:15 08/06/20 16:14 Azithromycin (Zithromax) 500 mg DAILY ORAL 07/08/20 09:00 07/15/20 08:59 07/13/20 09:53 Dexamethasone Sodium Phosphate (Decadron 10mg/ ml Inj) 6 mg DAILY IV 07/08/20 09:00 07/17/20 09:01 07/13/20 09:54 Dextrose (Dextrose 50%) 25 ml Q30M PRN IV Hypoglycemia 07/07/20 15:45 10/05/20 15:44 Dextrose (Dextrose 50%) 50 ml Q30M PRN IV Hypoglycemia 07/07/20 15:45 10/05/20 15:44 Docusate Sodium (Colace) 100 mg EVERY 12 HOURS ORAL 07/12/20 21:00 08/08/20 08:59 07/13/20 20:38 Enoxaparin Sodium (Lovenox) 80 mg DAILY SUBQ 07/08/20 09:00 10/06/20 08:59 07/13/20 09:57 Famotidine (Pepcid) 20 mg BID ORAL 07/09/20 09:00 10/07/20 08:59 07/13/20 17:26 Insulin Aspart (NovoLOG) BEFORE MEALS AND HS SUBQ 07/07/20 16:30 10/05/20 16:29 07/13/20 20:38 Losartan Potassium (Cozaar) 25 mg DAILY ORAL 07/11/20 11:00 08/10/20 10:59 07/13/20 09:54 Nataliia Velazquez M.D. Jul 13, 2020 20:55
[2020-07-14] VITALS: BP 114/76
[2020-07-14 04:00] VITALS: BP 109/68
[2020-07-14] MEDS: NovoLOG Insulin Flexpen SUBQ SCH ×4 (05:53→20:39)
--- NOTE | 2020-07-14 07:30 | NUR ---
NURSE HAND-OFF REPORT: Important Events on Shift: Patient Status: Diet: Pending Orders: Pending Results/Labs: Pending MD notification: Latest Vital Signs: Temperature 98.6 , Pulse 71 , B/P 112 /66 , Respiratory Rate 22 , O2 SAT 94 , Nasal Cannula, O2 Flow Rate 15.0 . Vital Sign Comment: EKG Rhythm: Sinus Rhythm Rhythm change?: N MD Notified?: - MD Response: Latest Plaza Fall Score: 30 Fall Risk: Medium Risk Safety Measures: Call light Within Reach, Bed Alarm Zone 3, Side Rails Side Rails x2, Bed position Low and Locked. Fall Precautions: Yellow Socks Report given to Viktor Edwards
[2020-07-14 08:00] VITALS: BP 116/73
[2020-07-14] MEDS: Losartan 25mg tab ORAL SCH (08:48)
[2020-07-14] MEDS: Enoxaparin 80mg Inj SUBQ SCH (08:52)
[2020-07-14] MEDS: Docusate 100mg cap ORAL SCH ×2 (08:56→20:35)
[2020-07-14] MEDS: dexAMETHasone 10mg/ml Inj IV SCH (08:57)
[2020-07-14] MEDS: Azithromycin 250mg tab ORAL SCH (08:57)
--- NOTE | 2020-07-14 09:36 | NUR ---
CASE MANAGEMENT:REVIEW 07/14/20 SI: COVID PNEUMONIA 98.1 74 18 109/68 93% ON 15L/100%/NRB IS: COZAAR PO QD IV DECADRON Q24 PEPCID PO BID LOVENOX SQ QD AZITHROMAX PO QD : STEP DOWN UNIT DCP: FROM HOME PLAN: SOCIAL SERVICE CONSULT REGARDING INSURANCE
--- NOTE | 2020-07-14 09:38 | Pulmonology Progress Note ---
Subjective ROS Limited/Unobtainable: Yes Interval Events: weaning failed for several days Constitutional: Reports: no symptoms HEENT: Repors: no symptoms Respiratory: Reports: shortness of breath Gastrointestinal/Abdominal: Reports: no symptoms Psychiatric: Reports: no symptoms Skin: Reports: no symptoms Musculoskeletal: Reports: no symptoms Allergies: Coded Allergies: No Known Allergies (Unverified , 07/07/20) Objective Last 24 Hour Vital Signs Date Time Temp Pulse Resp B/P (MAP) Pulse Ox O2 Delivery O2 Flow Rate FiO2 07/14/20 08:48 116/73 07/14/20 07:27 93 Non-Rebreather 15.0 100 07/14/20 04:00 69 07/14/20 04:00 98.1 74 18 109/68 (82) 93 07/14/20 04:00 Non-Rebreather 15.0 07/14/20 00:00 96 07/14/20 00:00 Non-Rebreather 15.0 07/14/20 00:00 97.9 75 18 114/76 (89) 96 07/13/20 20:00 97 Non-Rebreather 15.0 100 07/13/20 20:00 98.2 77 18 111/71 (84) 97 07/13/20 20:00 Non-Rebreather 15.0 07/13/20 19:48 68 07/13/20 16:00 97.8 79 22 128/84 (99) 93 07/13/20 16:00 82 07/13/20 16:00 Non-Rebreather 15.0 07/13/20 12:00 86 07/13/20 12:00 Non-Rebreather 15.0 07/13/20 12:00 97.7 97 22 121/75 (90) 93 07/13/20 09:54 135/77 Intake and Output 07/13/20 07/14/20 19:00 07:00 Intake Total 750 ml Output Total 900 ml Balance 750 ml -900 ml Intake Oral 750 ml Output Urine Total 900 ml # Voids 3 General Appearance: no acute distress HEENT: normocephalic Respiratory: decreased breath sounds Cardiovascular: normal peripheral pulses Abdomen: normal bowel sounds Current Medications Medications (Trade) Dose Ordered Sig/Marian Route PRN Reason Start Time Stop Time Status Last Admin Dose Admin Acetaminophen (Tylenol) 650 mg Q6H PRN ORAL For Pain 2/5/21 15:45 08/06/20 15:44 Acetaminophen (Tylenol) 650 mg Q6H PRN ORAL FEVER 07/07/20 16:15 08/06/20 16:14 Azithromycin (Zithromax) 500 mg DAILY ORAL 07/08/20 09:00 07/15/20 08:59 07/14/20 08:57 Dexamethasone Sodium Phosphate (Decadron 10mg/ ml Inj) 6 mg DAILY IV 07/08/20 09:00 07/17/20 09:01 07/14/20 08:57 Dextrose (Dextrose 50%) 25 ml Q30M PRN IV Hypoglycemia 07/07/20 15:45 10/05/20 15:44 Dextrose (Dextrose 50%) 50 ml Q30M PRN IV Hypoglycemia 07/07/20 15:45 10/05/20 15:44 Docusate Sodium (Colace) 100 mg EVERY 12 HOURS ORAL 07/12/20 21:00 08/08/20 08:59 07/14/20 08:56 Enoxaparin Sodium (Lovenox) 80 mg DAILY SUBQ 07/08/20 09:00 10/06/20 08:59 07/14/20 08:52 Famotidine (Pepcid) 20 mg BID ORAL 07/09/20 09:00 10/07/20 08:59 07/14/20 08:47 Insulin Aspart (NovoLOG) BEFORE MEALS AND HS SUBQ 07/07/20 16:30 10/05/20 16:29 07/13/20 20:38 Losartan Potassium (Cozaar) 25 mg DAILY ORAL 07/11/20 11:00 08/10/20 10:59 07/14/20 08:48 Assessment/Plan Assessment/Plan 1. COVID-19 pneumonia. - COVID-19 PCR positive (07/07) -> continue isolation - s/p remdexsivir - on azithromycin - CXR (07/13) no significant change 2. Hypoxemia. - on decadron (07/08-) - check ABG - now tolerating Venturi mask 10L -> will continue to wean as tolerated 3. Hypertension. 4. Diabetes mellitus. 5. DVT ppx - on Lovenox Discussed with bedside RN. The care for this patient was discussed with my supervising physician Time spent for this case was approximately 31 minutes Milton Howard Jul 14, 2020 09:38
--- NOTE | 2020-07-14 11:12 | General Progress Note ---
Subjective Allergies: Coded Allergies: No Known Allergies (Unverified , 07/07/20) Objective Last 24 Hour Vital Signs Date Time Temp Pulse Resp B/P (MAP) Pulse Ox O2 Delivery O2 Flow Rate FiO2 07/14/20 08:48 116/73 07/14/20 08:00 83 07/14/20 08:00 98.6 92 22 116/73 (87) 93 07/14/20 08:00 Non-Rebreather 15.0 07/14/20 07:27 93 Non-Rebreather 15.0 100 07/14/20 04:00 69 07/14/20 04:00 98.1 74 18 109/68 (82) 93 07/14/20 04:00 Non-Rebreather 15.0 07/14/20 00:00 96 07/14/20 00:00 Non-Rebreather 15.0 07/14/20 00:00 97.9 75 18 114/76 (89) 96 07/13/20 20:00 97 Non-Rebreather 15.0 100 07/13/20 20:00 98.2 77 18 111/71 (84) 97 07/13/20 20:00 Non-Rebreather 15.0 07/13/20 19:48 68 07/13/20 16:00 97.8 79 22 128/84 (99) 93 07/13/20 16:00 82 07/13/20 16:00 Non-Rebreather 15.0 07/13/20 12:00 86 07/13/20 12:00 Non-Rebreather 15.0 07/13/20 12:00 97.7 97 22 121/75 (90) 93 Intake and Output 07/13/20 07/14/20 19:00 07:00 Intake Total 750 ml Output Total 900 ml Balance 750 ml -900 ml Intake Oral 750 ml Output Urine Total 900 ml # Voids 3 Height (Feet): 5 Height (Inches): 3.00 Weight (Pounds): 162 Assessment/Plan Status: stable Assessment/Plan: S, O: I am feeling more sob, seems in mild sob, no severe pain PHYSICAL EXAMINATION: HEAD AND NECK: Atraumatic and normocephalic. CHEST: Diffuse bronchial breathing sounds. HEART: S1 and S2. Regular rate and rhythm. ABDOMEN: Soft. No organomegaly. MUSCULOSKELETAL: No gross lateralized motor deficit. Meds: reviewed and reconciled in the chart ASSESSMENT: 1. COVID-19 pneumonia. 2. Hypoxemic respiratory failure. 3. Diabetes type 2. 4. Hyponatremia 5. GI and DVT prophylaxis. PLAN OF CARE: I left a VM for patient's brother in law, per her request. on 1334 hours on Jul 10 I spoke with patient's brother in law, I updated him about overall cnd of patient . Agreed with current management. given persistent high level of O2 requirement. I will repeat CXR No, interval imaging changes. Gail Malcolm MD Jul 14, 2020 11:12
[2020-07-14 12:00] VITALS: BP 118/84
--- NOTE | 2020-07-14 13:08 | Nephrology Progress Note ---
Assessment/Plan Problem List: (1) Hyponatremia (2) Hypoxia (3) Pneumonitis (4) Acute respiratory failure due to COVID-19 (5) DMII (diabetes mellitus, type 2) (6) HTN (hypertension) Assessment Hyponatremia, improved with saline infusion COVID-19 infection Pneumonia, acute respiratory failure, hypoxia Diabetes mellitus Hypertension Plan July 14: No labs from today. Continue per current management. Check labs tomorrow. July 13: No labs drawn today. Stable from renal standpoint of view. July 12: Today's labs pending. Medication list reviewed. Continue per current management and consultants. July 11: Labs reviewed. Renal parameters stable. July 10: Labs reviewed. Renal parameters electrolytes stable. Continue per consultants. July 09: Labs reviewed. Renal parameters and electrolytes stable. Continue per ID and pulmonary. Subjective ROS Limited/Unobtainable: No Constitutional: Reports: malaise, weakness Objective Objective Last 24 Hour Vital Signs Date Time Temp Pulse Resp B/P (MAP) Pulse Ox O2 Delivery O2 Flow Rate FiO2 07/14/20 08:48 116/73 07/14/20 08:00 83 07/14/20 08:00 98.6 92 22 116/73 (87) 93 07/14/20 08:00 Non-Rebreather 15.0 07/14/20 07:27 93 Non-Rebreather 15.0 100 07/14/20 04:00 69 07/14/20 04:00 98.1 74 18 109/68 (82) 93 07/14/20 04:00 Non-Rebreather 15.0 07/14/20 00:00 96 07/14/20 00:00 Non-Rebreather 15.0 07/14/20 00:00 97.9 75 18 114/76 (89) 96 07/13/20 20:00 97 Non-Rebreather 15.0 100 07/13/20 20:00 98.2 77 18 111/71 (84) 97 07/13/20 20:00 Non-Rebreather 15.0 07/13/20 19:48 68 07/13/20 16:00 97.8 79 22 128/84 (99) 93 07/13/20 16:00 82 07/13/20 16:00 Non-Rebreather 15.0 Intake and Output 07/13/20 07/14/20 19:00 07:00 Intake Total 750 ml Output Total 900 ml Balance 750 ml -900 ml Intake Oral 750 ml Output Urine Total 900 ml # Voids 3 Current Medications Medications (Trade) Dose Ordered Sig/Marian Route PRN Reason Start Time Stop Time Status Last Admin Dose Admin Acetaminophen (Tylenol) 650 mg Q6H PRN ORAL For Pain 07/07/20 15:45 08/06/20 15:44 Acetaminophen (Tylenol) 650 mg Q6H PRN ORAL FEVER 07/07/20 16:15 08/06/20 16:14 Azithromycin (Zithromax) 500 mg DAILY ORAL 07/08/20 09:00 07/15/20 08:59 07/14/20 08:57 Dexamethasone Sodium Phosphate (Decadron 10mg/ ml Inj) 6 mg DAILY IV 07/08/20 09:00 07/17/20 09:01 07/14/20 08:57 Dextrose (Dextrose 50%) 25 ml Q30M PRN IV Hypoglycemia 07/07/20 15:45 10/05/20 15:44 Dextrose (Dextrose 50%) 50 ml Q30M PRN IV Hypoglycemia 07/07/20 15:45 10/05/20 15:44 Docusate Sodium (Colace) 100 mg EVERY 12 HOURS ORAL 07/12/20 21:00 08/08/20 08:59 07/14/20 08:56 Enoxaparin Sodium (Lovenox) 80 mg DAILY SUBQ 07/08/20 09:00 10/06/20 08:59 07/14/20 08:52 Famotidine (Pepcid) 20 mg BID ORAL 07/09/20 09:00 10/07/20 08:59 07/14/20 08:47 Insulin Aspart (NovoLOG) BEFORE MEALS AND HS SUBQ 07/07/20 16:30 10/05/20 16:29 07/13/20 20:38 Losartan Potassium (Cozaar) 25 mg DAILY ORAL 07/11/20 11:00 08/10/20 10:59 07/14/20 08:48 Height (Feet): 5 Height (Inches): 3.00 Weight (Pounds): 162 General Appearance: lethargic Cardiovascular: tachycardia Respiratory/Chest: decreased breath sounds Abdomen: distended Anurag Bridges MD Jul 14, 2020 13:08
--- NOTE | 2020-07-14 15:48 | NUR ---
RESPIRATORY NOTE: Attempted to wean pt off 100% Fio2 NRB to Venturi mask 14L 55% Fio2. Pt did not tolerate well at this time. Spo2 decreased to 87-88%. RN was made aware. Placed pt back on NRB 100% fio2. Will continue to monitor, titrate fio2 as appropriate, and follow plan of care.
[2020-07-14 16:00] VITALS: BP 112/66
--- NOTE | 2020-07-14 17:44 | Cardiology Progress Note ---
Assessment/Plan Status: stable Assessment/Plan 1. COVID-19 viral PNA on remdesivir and dexamethasone 2. Respiratory failure 2/2 acute PNA NRB mask 3. HFpEF acute on chronic diastolic HF with preserved EF EF 65%, compensated 4. DMII 5. GERD Echo negative for acute decompensated HF. Diuresis as needed with IV Lasix. SBP and HR controlled. Subjective ROS Limited/Unobtainable: Yes Subjective In isolation, no distress Objective Last 24 Hour Vital Signs Date Time Temp Pulse Resp B/P (MAP) Pulse Ox O2 Delivery O2 Flow Rate FiO2 07/14/20 12:00 Non-Rebreather 15.0 07/14/20 12:00 79 07/14/20 12:00 98.4 89 20 118/84 (95) 95 07/14/20 08:48 116/73 07/14/20 08:00 83 07/14/20 08:00 98.6 92 22 116/73 (87) 93 07/14/20 08:00 Non-Rebreather 15.0 07/14/20 07:27 93 Non-Rebreather 15.0 100 07/14/20 04:00 69 07/14/20 04:00 98.1 74 18 109/68 (82) 93 07/14/20 04:00 Non-Rebreather 15.0 07/14/20 00:00 96 07/14/20 00:00 Non-Rebreather 15.0 07/14/20 00:00 97.9 75 18 114/76 (89) 96 07/13/20 20:00 97 Non-Rebreather 15.0 100 07/13/20 20:00 98.2 77 18 111/71 (84) 97 07/13/20 20:00 Non-Rebreather 15.0 07/13/20 19:48 68 General Appearance: no apparent distress EENT: PERRL/EOMI Neck: no JVD Rhythm: NSR Intake and Output 07/13/20 07/14/20 19:00 07:00 Intake Total 750 ml Output Total 900 ml Balance 750 ml -900 ml Intake Oral 750 ml Output Urine Total 900 ml # Voids 3 Blanca Lobato PA-C Jul 14, 2020 17:44
--- NOTE | 2020-07-14 19:30 | NUR ---
NURSE NOTES: Received report from hallie Gonzalez Rn. Patient resting in bed. Patient on 15L non rebreather. Patient desats quickly upon any exertion. Patient has bipap ordered PRN. Patient denies pain at this time. RN will continue to monitor.
[2020-07-14 20:00] VITALS: BP 102/65
[2020-07-15] VITALS: BP 112/76
--- NOTE | 2020-07-15 00:30 | NUR ---
NURSE NOTES: patient vitals at this time. Patient denies pain. Patient resting. RN will continue to monitor.
[2020-07-15 04:00] VITALS: BP 121/76
[2020-07-15 05:14] LABS: BASOPHILS % (AUTO) 2.3 % (0.0-2.0); EOSINOPHILS % (AUTO) 0.1 % (0.0-3.0); HEMATOCRIT 37.1 % (37.0-47.0); HEMOGLOBIN 12.1 G/DL (12.0-16.0); LYMPHOCYTES % (AUTO) 7.8 % (20.0-45.0); MEAN CORPUSCULAR VOLUME 87 FL (80-99); MONOCYTES % (AUTO) 5.8 % (1.0-10.0); PLATELET COUNT 328 K/UL (150-450); RED BLOOD COUNT 4.26 M/UL (4.20-5.40); WHITE BLOOD COUNT 14.6 K/UL (4.8-10.8)
[2020-07-15 05:45] LABS: ALANINE AMINOTRANSFERASE 16 U/L (12-78); ALBUMIN 2.3 G/DL (3.4-5.0); ALBUMIN/GLOBULIN RATIO 0.4 (1.0-2.7); ALKALINE PHOSPHATASE 46 U/L (46-116); ANION GAP 8 mmol/L (5-15); ASPARTATE AMINO TRANSFERASE 20 U/L (15-37); BILIRUBIN,TOTAL 1.1 MG/DL (0.2-1.0); BLOOD UREA NITROGEN 21 mg/dL (7-18); CARBON DIOXIDE 30 MMOL/L (21-32); CHLORIDE 103 MMOL/L (98-107); CREATININE 0.8 MG/DL (0.55-1.30); PHOSPHORUS 3.4 MG/DL (2.5-4.9); POTASSIUM 4.3 MMOL/L (3.5-5.1); SODIUM 141 MMOL/L (136-145)
[2020-07-15 05:46] LABS: BILIRUBIN,DIRECT 0.3 MG/DL (0.0-0.3)
[2020-07-15] MEDS: NovoLOG Insulin Flexpen SUBQ SCH ×4 (06:30→20:11)
--- NOTE | 2020-07-15 07:19 | NUR ---
NURSE NOTES: Received report from LIANA Rhodes. Pt is resting in bed, sleeping and stable. Pt on NRB mask 15 LPM saturating 92%. IV on R Hand 20g SL. Pt skin intact. Pt bed low and locked, call light in reach and bed alarm on.
[2020-07-15 08:00] VITALS: BP 115/69
[2020-07-15] MEDS: Docusate 100mg cap ORAL SCH ×2 (08:11→20:09)
[2020-07-15] MEDS: Losartan 25mg tab ORAL SCH (08:12)
[2020-07-15] MEDS: dexAMETHasone 10mg/ml Inj IV SCH (08:12)
[2020-07-15] MEDS: Enoxaparin 80mg Inj SUBQ SCH (08:14)
--- NOTE | 2020-07-15 08:31 | NUR ---
RD ASSESSMENT & RECOMMENDATIONS SEE CARE ACTIVITY FOR COMPLETE ASSESSMENT DAILY ESTIMATED NEEDS: Needs based on DM, pulmonary/ 57.6kg abw 25-30 kcals/kg 4928-7087 total kcals 1-1.5 g protein/kg 58-86 g total protein 25-30 mL/kg 5867-0908 total fluid mLs NUTRITION DIAGNOSIS: Altered nutrition related lab values R/T diabetes and steroidal med as evidenced by A1C 6.9 w/ elev POC (125 242 223 180 180), pt on Decadron. CURRENT DIET:CCHO MED, mech soft chopped PO DIET RECOMMENDATIONS: Maintain CCHO MED/ texture as tolerated ADDITIONAL RECOMMENDATIONS: * Calibrated bedscale wt * Monitor respiratory status, PO tolerance - on NRB mask at this time * Glucerna BID w/ variable intake (220kcal, 9g prot each) * Monitor BGs closely while on Decadron, need for additional hypoglycemics.
--- NOTE | 2020-07-15 10:17 | NUR ---
NURSE NOTES: Called Ralf to report Pt ABG. Anita said he is coming to see Pts now.
--- NOTE | 2020-07-15 11:33 | Nephrology Progress Note ---
Assessment/Plan Problem List: (1) Hyponatremia (2) Hypoxia (3) Pneumonitis (4) Acute respiratory failure due to COVID-19 (5) DMII (diabetes mellitus, type 2) (6) HTN (hypertension) Assessment Hyponatremia, improved with saline infusion COVID-19 infection Pneumonia, acute respiratory failure, hypoxia Diabetes mellitus Hypertension Plan July 15: Labs reviewed. Renal parameters stable. July 14: No labs from today. Continue per current management. Check labs tomorrow. July 13: No labs drawn today. Stable from renal standpoint of view. July 12: Today's labs pending. Medication list reviewed. Continue per current management and consultants. July 11: Labs reviewed. Renal parameters stable. July 10: Labs reviewed. Renal parameters electrolytes stable. Continue per consultants. July 09: Labs reviewed. Renal parameters and electrolytes stable. Continue per ID and pulmonary. Subjective ROS Limited/Unobtainable: No Constitutional: Reports: malaise, weakness Objective Objective Last 24 Hour Vital Signs Date Time Temp Pulse Resp B/P (MAP) Pulse Ox O2 Delivery O2 Flow Rate FiO2 07/15/20 08:42 96.6 07/15/20 08:26 100 07/15/20 08:12 115/69 07/15/20 08:00 Non-Rebreather 15.0 07/15/20 08:00 100.4 76 19 115/69 (84) 97 07/15/20 04:00 72 07/15/20 04:00 97.9 75 20 121/76 (91) 92 07/15/20 04:00 Non-Rebreather 15.0 07/15/20 00:00 Non-Rebreather 15.0 07/15/20 00:00 69 07/15/20 00:00 97.5 61 20 112/76 (88) 98 07/14/20 20:00 73 07/14/20 20:00 Non-Rebreather 15.0 07/14/20 20:00 97.5 74 22 102/65 (77) 97 07/14/20 18:58 94 Non-Rebreather 15.0 100 07/14/20 16:00 98.6 76 22 112/66 (81) 93 07/14/20 16:00 71 07/14/20 16:00 Non-Rebreather 15.0 07/14/20 12:00 Non-Rebreather 15.0 07/14/20 12:00 79 07/14/20 12:00 98.4 89 20 118/84 (95) 95 Intake and Output 07/14/20 07/15/20 19:00 07:00 Intake Total 500 ml Balance 500 ml Intake Oral 500 ml # Voids 2 2 Current Medications Medications (Trade) Dose Ordered Sig/Marian Route PRN Reason Start Time Stop Time Status Last Admin Dose Admin Acetaminophen (Tylenol) 650 mg Q6H PRN ORAL For Pain 07/07/20 15:45 08/06/20 15:44 07/15/20 08:12 Acetaminophen (Tylenol) 650 mg Q6H PRN ORAL FEVER 07/07/20 16:15 08/06/20 16:14 Dexamethasone Sodium Phosphate (Decadron 10mg/ ml Inj) 6 mg DAILY IV 07/08/20 09:00 07/17/20 09:01 07/15/20 08:12 Dextrose (Dextrose 50%) 25 ml Q30M PRN IV Hypoglycemia 07/07/20 15:45 10/05/20 15:44 Dextrose (Dextrose 50%) 50 ml Q30M PRN IV Hypoglycemia 07/07/20 15:45 10/05/20 15:44 Docusate Sodium (Colace) 100 mg EVERY 12 HOURS ORAL 07/12/20 21:00 08/08/20 08:59 07/15/20 08:11 Enoxaparin Sodium (Lovenox) 80 mg DAILY SUBQ 07/08/20 09:00 10/06/20 08:59 07/15/20 08:14 Famotidine (Pepcid) 20 mg BID ORAL 07/09/20 09:00 10/07/20 08:59 07/15/20 08:12 Insulin Aspart (NovoLOG) BEFORE MEALS AND HS SUBQ 07/07/20 16:30 10/05/20 16:29 07/15/20 11:20 Losartan Potassium (Cozaar) 25 mg DAILY ORAL 07/11/20 11:00 08/10/20 10:59 07/15/20 08:12 Laboratory Tests 07/15/20 04:30: White Blood Count 14.6H, Red Blood Count 4.26, Hemoglobin 12.1, Hematocrit 37.1, Mean Corpuscular Volume 87, Mean Corpuscular Hemoglobin 28.4, Mean Corpuscular Hemoglobin Concent 32.6, Red Cell Distribution Width 12.0, Platelet Count 328, Mean Platelet Volume 6.7, Neutrophils (%) (Auto) 84.0H, Lymphocytes (%) (Auto) 7.8L, Monocytes (%) (Auto) 5.8, Eosinophils (%) (Auto) 0.1, Basophils (%) (Auto) 2.3H, Sodium Level 141, Potassium Level 4.3, Chloride Level 103, Carbon Dioxide Level 30, Anion Gap 8, Blood Urea Nitrogen 21H, Creatinine 0.8, Estimat Glomerular Filtration Rate > 60, Glucose Level 109H, Calcium Level 9.0, Phosphorus Level 3.4, Magnesium Level 2.2, Total Bilirubin 1.1H, Direct Bilirubin 0.3, Aspartate Amino Transf (AST/SGOT) 20, Alanine Aminotransferase (ALT/SGPT) 16, Alkaline Phosphatase 46, C-Reactive Protein, Quantitative 9.2H, Total Protein 7.5, Albumin 2.3L, Globulin 5.2, Albumin/Globulin Ratio 0.4L 07/15/20 08:15: Arterial Blood pH 7.484H, Arterial Blood Partial Pressure CO2 35.9, Arterial Blood Partial Pressure O2 57.8L, Arterial Blood HCO3 26.4H, Arterial Blood Oxygen Saturation 88.9*L, Arterial Blood Base Excess 3.1H, Timbo Test Positive Height (Feet): 5 Height (Inches): 3.00 Weight (Pounds): 162 General Appearance: no apparent distress Respiratory/Chest: other - On nonrebreather mask Abdomen: distended Objective No change Anurag Bridges MD Jul 15, 2020 11:33
[2020-07-15 12:00] VITALS: BP 102/50
--- NOTE | 2020-07-15 12:44 | Pulmonology Progress Note ---
Subjective ROS Limited/Unobtainable: No Interval Events: weaning failed for several days Constitutional: Reports: no symptoms HEENT: Repors: no symptoms Respiratory: Reports: shortness of breath Gastrointestinal/Abdominal: Reports: no symptoms Psychiatric: Reports: no symptoms Skin: Reports: no symptoms Musculoskeletal: Reports: no symptoms Allergies: Coded Allergies: No Known Allergies (Unverified , 07/07/20) Objective Last 24 Hour Vital Signs Date Time Temp Pulse Resp B/P (MAP) Pulse Ox O2 Delivery O2 Flow Rate FiO2 07/15/20 12:00 97.2 72 19 102/50 (67) 98 07/15/20 12:00 Non-Rebreather 15.0 07/15/20 12:00 80 07/15/20 08:42 96.6 07/15/20 08:26 100 07/15/20 08:12 115/69 07/15/20 08:00 Non-Rebreather 15.0 07/15/20 08:00 100.4 76 19 115/69 (84) 97 07/15/20 04:00 72 07/15/20 04:00 97.9 75 20 121/76 (91) 92 07/15/20 04:00 Non-Rebreather 15.0 07/15/20 00:00 Non-Rebreather 15.0 07/15/20 00:00 69 07/15/20 00:00 97.5 61 20 112/76 (88) 98 07/14/20 20:00 73 07/14/20 20:00 Non-Rebreather 15.0 07/14/20 20:00 97.5 74 22 102/65 (77) 97 07/14/20 18:58 94 Non-Rebreather 15.0 100 07/14/20 16:00 98.6 76 22 112/66 (81) 93 07/14/20 16:00 71 07/14/20 16:00 Non-Rebreather 15.0 Intake and Output 07/14/20 07/15/20 19:00 07:00 Intake Total 500 ml Balance 500 ml Intake Oral 500 ml # Voids 2 2 General Appearance: no acute distress HEENT: normocephalic Respiratory: decreased breath sounds Cardiovascular: normal peripheral pulses Abdomen: normal bowel sounds Laboratory Tests 07/15/20 04:30: White Blood Count 14.6H, Red Blood Count 4.26, Hemoglobin 12.1, Hematocrit 37.1, Mean Corpuscular Volume 87, Mean Corpuscular Hemoglobin 28.4, Mean Corpuscular Hemoglobin Concent 32.6, Red Cell Distribution Width 12.0, Platelet Count 328, Mean Platelet Volume 6.7, Neutrophils (%) (Auto) 84.0H, Lymphocytes (%) (Auto) 7.8L, Monocytes (%) (Auto) 5.8, Eosinophils (%) (Auto) 0.1, Basophils (%) (Auto) 2.3H, Sodium Level 141, Potassium Level 4.3, Chloride Level 103, Carbon Dioxide Level 30, Anion Gap 8, Blood Urea Nitrogen 21H, Creatinine 0.8, Estimat Glomerular Filtration Rate > 60, Glucose Level 109H, Calcium Level 9.0, Phosphorus Level 3.4, Magnesium Level 2.2, Total Bilirubin 1.1H, Direct Bilirubin 0.3, Aspartate Amino Transf (AST/SGOT) 20, Alanine Aminotransferase (ALT/SGPT) 16, Alkaline Phosphatase 46, C-Reactive Protein, Quantitative 9.2H, Total Protein 7.5, Albumin 2.3L, Globulin 5.2, Albumin/Globulin Ratio 0.4L 07/15/20 08:15: Arterial Blood pH 7.484H, Arterial Blood Partial Pressure CO2 35.9, Arterial Blood Partial Pressure O2 57.8L, Arterial Blood HCO3 26.4H, Arterial Blood Oxygen Saturation 88.9*L, Arterial Blood Base Excess 3.1H, Timbo Test Positive Current Medications Medications (Trade) Dose Ordered Sig/Marian Route PRN Reason Start Time Stop Time Status Last Admin Dose Admin Acetaminophen (Tylenol) 650 mg Q6H PRN ORAL For Pain 07/07/20 15:45 08/06/20 15:44 07/15/20 08:12 Acetaminophen (Tylenol) 650 mg Q6H PRN ORAL FEVER 07/07/20 16:15 08/06/20 16:14 Dexamethasone Sodium Phosphate (Decadron 10mg/ ml Inj) 6 mg DAILY IV 07/08/20 09:00 07/17/20 09:01 07/15/20 08:12 Dextrose (Dextrose 50%) 25 ml Q30M PRN IV Hypoglycemia 07/07/20 15:45 10/05/20 15:44 Dextrose (Dextrose 50%) 50 ml Q30M PRN IV Hypoglycemia 07/07/20 15:45 10/05/20 15:44 Docusate Sodium (Colace) 100 mg EVERY 12 HOURS ORAL 07/12/20 21:00 08/08/20 08:59 07/15/20 08:11 Enoxaparin Sodium (Lovenox) 80 mg DAILY SUBQ 07/08/20 09:00 10/06/20 08:59 07/15/20 08:14 Famotidine (Pepcid) 20 mg BID ORAL 07/09/20 09:00 10/07/20 08:59 07/15/20 08:12 Insulin Aspart (NovoLOG) BEFORE MEALS AND HS SUBQ 07/07/20 16:30 10/05/20 16:29 07/15/20 11:20 Losartan Potassium (Cozaar) 25 mg DAILY ORAL 07/11/20 11:00 08/10/20 10:59 07/15/20 08:12 Assessment/Plan Assessment/Plan 1. COVID-19 pneumonia. - COVID-19 PCR positive (07/07) -> continue isolation - s/p remdexsivir - s/p azithromycin - CXR (07/13) no significant change 2. Hypoxemia. - on decadron (07/08-) - check ABG - desaturated on NRB -> back on BiPAP 03/06 65% FiO2 -> increase to 14/8, 65% FiO2 - ABG (07/15) pH 7.484, pCO2 35.9, pO2 57.8, HCO3 26.4 3. Hypertension. 4. Diabetes mellitus. 5. DVT ppx - on Lovenox Discussed with bedside RN. The care for this patient was discussed with my supervising physician Time spent for this case was approximately 31 minutes Milton Howard Jul 15, 2020 12:44
--- NOTE | 2020-07-15 14:51 | General Progress Note ---
Subjective Allergies: Coded Allergies: No Known Allergies (Unverified , 07/07/20) Objective Last 24 Hour Vital Signs Date Time Temp Pulse Resp B/P (MAP) Pulse Ox O2 Delivery O2 Flow Rate FiO2 07/15/20 12:00 97.2 72 19 102/50 (67) 98 07/15/20 12:00 Non-Rebreather 15.0 07/15/20 12:00 80 07/15/20 08:42 96.6 07/15/20 08:26 100 07/15/20 08:12 115/69 07/15/20 08:00 Non-Rebreather 15.0 07/15/20 08:00 100.4 76 19 115/69 (84) 97 07/15/20 04:00 72 07/15/20 04:00 97.9 75 20 121/76 (91) 92 07/15/20 04:00 Non-Rebreather 15.0 07/15/20 00:00 Non-Rebreather 15.0 07/15/20 00:00 69 07/15/20 00:00 97.5 61 20 112/76 (88) 98 07/14/20 20:00 73 07/14/20 20:00 Non-Rebreather 15.0 07/14/20 20:00 97.5 74 22 102/65 (77) 97 07/14/20 18:58 94 Non-Rebreather 15.0 100 07/14/20 16:00 98.6 76 22 112/66 (81) 93 07/14/20 16:00 71 07/14/20 16:00 Non-Rebreather 15.0 Intake and Output 07/14/20 07/15/20 19:00 07:00 Intake Total 500 ml Balance 500 ml Intake Oral 500 ml # Voids 2 2 Laboratory Tests 07/15/20 04:30: White Blood Count 14.6H, Red Blood Count 4.26, Hemoglobin 12.1, Hematocrit 37.1, Mean Corpuscular Volume 87, Mean Corpuscular Hemoglobin 28.4, Mean Corpuscular Hemoglobin Concent 32.6, Red Cell Distribution Width 12.0, Platelet Count 328, Mean Platelet Volume 6.7, Neutrophils (%) (Auto) 84.0H, Lymphocytes (%) (Auto) 7.8L, Monocytes (%) (Auto) 5.8, Eosinophils (%) (Auto) 0.1, Basophils (%) (Auto) 2.3H, Sodium Level 141, Potassium Level 4.3, Chloride Level 103, Carbon Dioxide Level 30, Anion Gap 8, Blood Urea Nitrogen 21H, Creatinine 0.8, Estimat Glomerular Filtration Rate > 60, Glucose Level 109H, Calcium Level 9.0, Phosphorus Level 3.4, Magnesium Level 2.2, Total Bilirubin 1.1H, Direct Bilirubin 0.3, Aspartate Amino Transf (AST/SGOT) 20, Alanine Aminotransferase (ALT/SGPT) 16, Alkaline Phosphatase 46, C-Reactive Protein, Quantitative 9.2H, Total Protein 7.5, Albumin 2.3L, Globulin 5.2, Albumin/Globulin Ratio 0.4L 07/15/20 08:15: Arterial Blood pH 7.484H, Arterial Blood Partial Pressure CO2 35.9, Arterial Blood Partial Pressure O2 57.8L, Arterial Blood HCO3 26.4H, Arterial Blood Oxygen Saturation 88.9*L, Arterial Blood Base Excess 3.1H, Timbo Test Positive Height (Feet): 5 Height (Inches): 3.00 Weight (Pounds): 162 Assessment/Plan Status: stable Assessment/Plan: S, O: I am feeling more sob, seems in mild sob, no severe pain PHYSICAL EXAMINATION: HEAD AND NECK: Atraumatic and normocephalic. CHEST: Diffuse bronchial breathing sounds. HEART: S1 and S2. Regular rate and rhythm. ABDOMEN: Soft. No organomegaly. MUSCULOSKELETAL: No gross lateralized motor deficit. Meds: reviewed and reconciled in the chart ASSESSMENT: 1. COVID-19 pneumonia. 2. Hypoxemic respiratory failure. 3. Diabetes type 2. 4. Hyponatremia 5. GI and DVT prophylaxis. PLAN OF CARE: I left a VM for patient's brother in law, per her request. on 1334 hours on Jul 10 I spoke with patient's brother in law, I updated him about overall cnd of patient . Agreed with current management. given persistent high level of O2 requirement. I will repeat CXR No, interval imaging changes. notes from pulmonary reviewed Gail Malcolm MD Jul 15, 2020 14:51
[2020-07-15 16:00] VITALS: BP 115/73
--- NOTE | 2020-07-15 17:47 | NUR ---
NURSE HAND-OFF REPORT: Important Events on Shift: Bipap settings changed// ABG result- Park aware// Patient Status: fc stable Diet: ccho med mech soft Pending Orders: Pending Results/Labs: Pending MD notification: Latest Vital Signs: Temperature 98.2 , Pulse 67 , B/P 115 /73 , Respiratory Rate 21 , O2 SAT 97 , Nasal Cannula, O2 Flow Rate 15.0 . Vital Sign Comment: EKG Rhythm: Sinus Rhythm Rhythm change?: N MD Notified?: - MD Response: Latest Plaza Fall Score: 30 Fall Risk: Medium Risk Safety Measures: Call light Within Reach, Bed Alarm Zone 3, Side Rails Side Rails x2, Bed position Low and Locked. Fall Precautions: Yellow Socks Report to be given. Addendum: 07/15/20 at 1924 by Moon White RN RN Pt is stable, resting in bed. Report given to LIANA carrasquillo
--- NOTE | 2020-07-15 19:46 | NUR ---
NURSE NOTES: Received report from LIANA Dumont. Pt is awake, A/Ox4, pleasant demeanor. No acute distress noted. Denies pain. SR on cardiac exercise physiologist. SpO2 95% on NRB 15L 100%. R hand 20g intact and flushing well. HOB elevated, side rails x2, call light within reach, bed alarmed, locked, and in lowest position. Will continue plan of care. Will continue to monitor.
[2020-07-15 20:00] VITALS: BP 102/62
--- NOTE | 2020-07-15 21:08 | Cardiology Progress Note ---
Assessment/Plan Status: stable Assessment/Plan 1. COVID-19 viral PNA on remdesivir and dexamethasone WBCs trending upward 2. Respiratory failure 2/2 acute PNA O2 dependent 3. HFpEF acute on chronic diastolic HF with preserved EF EF 65%, compensated BNP negative 4. DMII 5. GERD Echo negative for acute decompensated HF. Diuresis as needed with IV Lasix. SBP and HR controlled. Subjective ROS Limited/Unobtainable: Yes Subjective In isolation, no distress Objective Last 24 Hour Vital Signs Date Time Temp Pulse Resp B/P (MAP) Pulse Ox O2 Delivery O2 Flow Rate FiO2 07/15/20 20:00 Non-Rebreather 15.0 07/15/20 20:00 66 07/15/20 20:00 98.1 68 22 102/62 (75) 99 07/15/20 19:44 95 Non-Rebreather 15.0 100 07/15/20 16:00 98.2 70 21 115/73 (87) 97 07/15/20 16:00 67 07/15/20 16:00 Non-Rebreather 15.0 07/15/20 12:00 97.2 72 19 102/50 (67) 98 07/15/20 12:00 Non-Rebreather 15.0 07/15/20 12:00 80 07/15/20 09:26 94 Non-Rebreather 15.0 100 07/15/20 08:42 96.6 07/15/20 08:26 100 07/15/20 08:12 115/69 07/15/20 08:00 Non-Rebreather 15.0 07/15/20 08:00 100.4 76 19 115/69 (84) 97 07/15/20 04:00 72 07/15/20 04:00 97.9 75 20 121/76 (91) 92 07/15/20 04:00 Non-Rebreather 15.0 07/15/20 00:00 Non-Rebreather 15.0 07/15/20 00:00 69 07/15/20 00:00 97.5 61 20 112/76 (88) 98 General Appearance: no apparent distress EENT: PERRL/EOMI Neck: no JVD Rhythm: NSR Cardiovascular: normal rate, regular rhythm Intake and Output 07/14/20 07/15/20 19:00 07:00 Intake Total 500 ml Balance 500 ml Intake Oral 500 ml # Voids 2 2 Laboratory Tests Test 07/15/20 04:30 07/15/20 08:15 White Blood Count 14.6 K/UL (4.8-10.8) H Red Blood Count 4.26 M/UL (4.20-5.40) Hemoglobin 12.1 G/DL (12.0-16.0) Hematocrit 37.1 % (37.0-47.0) Mean Corpuscular Volume 87 FL (80-99) Mean Corpuscular Hemoglobin 28.4 PG (27.0-31.0) Mean Corpuscular Hemoglobin Concent 32.6 G/DL (32.0-36.0) Red Cell Distribution Width 12.0 % (11.6-14.8) Platelet Count 328 K/UL (150-450) Mean Platelet Volume 6.7 FL (6.5-10.1) Neutrophils (%) (Auto) 84.0 % (45.0-75.0) H Lymphocytes (%) (Auto) 7.8 % (20.0-45.0) L Monocytes (%) (Auto) 5.8 % (1.0-10.0) Eosinophils (%) (Auto) 0.1 % (0.0-3.0) Basophils (%) (Auto) 2.3 % (0.0-2.0) H Sodium Level 141 MMOL/L (136-145) Potassium Level 4.3 MMOL/L (3.5-5.1) Chloride Level 103 MMOL/L (98-107) Carbon Dioxide Level 30 MMOL/L (21-32) Anion Gap 8 mmol/L (5-15) Blood Urea Nitrogen 21 mg/dL (7-18) H Creatinine 0.8 MG/DL (0.55-1.30) Estimat Glomerular Filtration Rate > 60 mL/min (>60) Glucose Level 109 MG/DL (74-106) H Calcium Level 9.0 MG/DL (8.5-10.1) Phosphorus Level 3.4 MG/DL (2.5-4.9) Magnesium Level 2.2 MG/DL (1.8-2.4) Total Bilirubin 1.1 MG/DL (0.2-1.0) H Direct Bilirubin 0.3 MG/DL (0.0-0.3) Aspartate Amino Transf (AST/SGOT) 20 U/L (15-37) Alanine Aminotransferase (ALT/SGPT) 16 U/L (12-78) Alkaline Phosphatase 46 U/L (46-116) C-Reactive Protein, Quantitative 9.2 mg/dL (0.00-0.90) H Total Protein 7.5 G/DL (6.4-8.2) Albumin 2.3 G/DL (3.4-5.0) L Globulin 5.2 g/dL Albumin/Globulin Ratio 0.4 (1.0-2.7) L Arterial Blood pH 7.484 (7.350-7.450) Arterial Blood Partial Pressure CO2 35.9 mmHg (35.0-45.0) Arterial Blood Partial Pressure O2 57.8 mmHg (75.0-100.0) L Arterial Blood HCO3 26.4 mmol/L (22.0-26.0) H Arterial Blood Oxygen Saturation 88.9 % (95-100) *L Arterial Blood Base Excess 3.1 (-2-2) H Timbo Test Positive Blanca Lobato PA-C Jul 15, 2020 21:08
--- NOTE | 2020-07-15 21:15 | Infectious Diseases Prog Note ---
Assessment/Plan Problems: (1) COVID-19 virus infection Assessment & Plan: complicated with pneumonia and hypoxemia, S/P remdisvir for 5 days, HAD POSITIVE PCR test , keep patient in enhanced droplet isolation, titrate oxygen to keep O2 sat more than 90%, RECOMMEND PRONE POSITION . (2) Dyspnea due to COVID-19 Assessment & Plan: continue respiratory support with BiPAP PRN and nonrebreather mask with high flow oxygen PRN, MAY NEED PRONING (3) Pneumonia due to COVID-19 virus Assessment & Plan: s/p Remdisvir IV for 5 days, and Decadron, monitor chest x- ray. (4) Acute respiratory failure due to COVID-19 Assessment & Plan: suspect due to pneumonitis from COVID 19 AND ALVELOAR DAMAGE , continue respiratory support with High flow O2 via NRB mask and BIPAP PRN , close monitor of ABG and chest x-ray. PRONE POSITION Subjective Constitutional: Reports: no symptoms HEENT: Reports: no symptoms Respiratory: Reports: shortness of breath Cardiovascular: Reports: no symptoms Gastrointestinal/Abdominal: Reports: no symptoms Genitourinary: Reports: no symptoms Neurologic: Reports: no symptoms Skin: Reports: no symptoms Endocrine: Reports: no symptoms Allergies: Coded Allergies: No Known Allergies (Unverified , 07/07/20) she continue to be hypoxemic and SOB on high flow oxygen via NRB mask, so now on BIPAP with FIO2 65 % , NO FEVER OR CHILLS, NO PHLEGM Objective Last 24 Hour Vital Signs Date Time Temp Pulse Resp B/P (MAP) Pulse Ox O2 Delivery O2 Flow Rate FiO2 07/15/20 20:00 Non-Rebreather 15.0 07/15/20 20:00 66 07/15/20 20:00 98.1 68 22 102/62 (75) 99 07/15/20 19:44 95 Non-Rebreather 15.0 100 07/15/20 16:00 98.2 70 21 115/73 (87) 97 07/15/20 16:00 67 07/15/20 16:00 Non-Rebreather 15.0 07/15/20 12:00 97.2 72 19 102/50 (67) 98 07/15/20 12:00 Non-Rebreather 15.0 07/15/20 12:00 80 07/15/20 09:26 94 Non-Rebreather 15.0 100 07/15/20 08:42 96.6 07/15/20 08:26 100 07/15/20 08:12 115/69 07/15/20 08:00 Non-Rebreather 15.0 07/15/20 08:00 100.4 76 19 115/69 (84) 97 07/15/20 04:00 72 07/15/20 04:00 97.9 75 20 121/76 (91) 92 07/15/20 04:00 Non-Rebreather 15.0 07/15/20 00:00 Non-Rebreather 15.0 07/15/20 00:00 69 07/15/20 00:00 97.5 61 20 112/76 (88) 98 Height (Feet): 5 Height (Inches): 3.00 Weight (Pounds): 162 General Appearance: WD/WN, no acute distress HEENT: normocephalic, atraumatic, anicteric Respiratory/Chest: chest wall non-tender, no respiratory distress, no accessory muscle use, decreased breath sounds, crackles/rales Cardiovascular: normal peripheral pulses, normal rate, regular rhythm, no gallop/murmur, no JVD Abdomen: normal bowel sounds, soft, non tender, no organomegaly, non distended, no mass, no scars Genitourinary: normal external genitalia Extremities: no cyanosis, no clubbing Skin: no rash Laboratory Tests Test 07/15/20 04:30 07/15/20 08:15 White Blood Count 14.6 K/UL (4.8-10.8) H Red Blood Count 4.26 M/UL (4.20-5.40) Hemoglobin 12.1 G/DL (12.0-16.0) Hematocrit 37.1 % (37.0-47.0) Mean Corpuscular Volume 87 FL (80-99) Mean Corpuscular Hemoglobin 28.4 PG (27.0-31.0) Mean Corpuscular Hemoglobin Concent 32.6 G/DL (32.0-36.0) Red Cell Distribution Width 12.0 % (11.6-14.8) Platelet Count 328 K/UL (150-450) Mean Platelet Volume 6.7 FL (6.5-10.1) Neutrophils (%) (Auto) 84.0 % (45.0-75.0) H Lymphocytes (%) (Auto) 7.8 % (20.0-45.0) L Monocytes (%) (Auto) 5.8 % (1.0-10.0) Eosinophils (%) (Auto) 0.1 % (0.0-3.0) Basophils (%) (Auto) 2.3 % (0.0-2.0) H Sodium Level 141 MMOL/L (136-145) Potassium Level 4.3 MMOL/L (3.5-5.1) Chloride Level 103 MMOL/L (98-107) Carbon Dioxide Level 30 MMOL/L (21-32) Anion Gap 8 mmol/L (5-15) Blood Urea Nitrogen 21 mg/dL (7-18) H Creatinine 0.8 MG/DL (0.55-1.30) Estimat Glomerular Filtration Rate > 60 mL/min (>60) Glucose Level 109 MG/DL (74-106) H Calcium Level 9.0 MG/DL (8.5-10.1) Phosphorus Level 3.4 MG/DL (2.5-4.9) Magnesium Level 2.2 MG/DL (1.8-2.4) Total Bilirubin 1.1 MG/DL (0.2-1.0) H Direct Bilirubin 0.3 MG/DL (0.0-0.3) Aspartate Amino Transf (AST/SGOT) 20 U/L (15-37) Alanine Aminotransferase (ALT/SGPT) 16 U/L (12-78) Alkaline Phosphatase 46 U/L (46-116) C-Reactive Protein, Quantitative 9.2 mg/dL (0.00-0.90) H Total Protein 7.5 G/DL (6.4-8.2) Albumin 2.3 G/DL (3.4-5.0) L Globulin 5.2 g/dL Albumin/Globulin Ratio 0.4 (1.0-2.7) L Arterial Blood pH 7.484 (7.350-7.450) Arterial Blood Partial Pressure CO2 35.9 mmHg (35.0-45.0) Arterial Blood Partial Pressure O2 57.8 mmHg (75.0-100.0) L Arterial Blood HCO3 26.4 mmol/L (22.0-26.0) H Arterial Blood Oxygen Saturation 88.9 % (95-100) *L Arterial Blood Base Excess 3.1 (-2-2) H Timbo Test Positive Current Medications Medications (Trade) Dose Ordered Sig/Marian Route PRN Reason Start Time Stop Time Status Last Admin Dose Admin Acetaminophen (Tylenol) 650 mg Q6H PRN ORAL For Pain 07/07/20 15:45 08/06/20 15:44 07/15/20 08:12 Acetaminophen (Tylenol) 650 mg Q6H PRN ORAL FEVER 07/07/20 16:15 08/06/20 16:14 Dexamethasone Sodium Phosphate (Decadron 10mg/ ml Inj) 6 mg DAILY IV 07/08/20 09:00 07/17/20 09:01 07/15/20 08:12 Dextrose (Dextrose 50%) 25 ml Q30M PRN IV Hypoglycemia 07/07/20 15:45 10/05/20 15:44 Dextrose (Dextrose 50%) 50 ml Q30M PRN IV Hypoglycemia 07/07/20 15:45 10/05/20 15:44 Docusate Sodium (Colace) 100 mg EVERY 12 HOURS ORAL 07/12/20 21:00 08/08/20 08:59 07/15/20 20:09 Enoxaparin Sodium (Lovenox) 80 mg DAILY SUBQ 07/08/20 09:00 10/06/20 08:59 07/15/20 08:14 Famotidine (Pepcid) 20 mg BID ORAL 07/09/20 09:00 10/07/20 08:59 07/15/20 17:23 Insulin Aspart (NovoLOG) BEFORE MEALS AND HS SUBQ 07/07/20 16:30 10/05/20 16:29 07/15/20 20:11 Losartan Potassium (Cozaar) 25 mg DAILY ORAL 07/11/20 11:00 08/10/20 10:59 07/15/20 08:12 Nataliia Velazquez M.D. Jul 15, 2020 21:15
--- NOTE | 2020-07-15 22:54 | NUR ---
NURSE NOTES: Pt is asleep, SpO2 96%, SR on oracle hrms developer. Will continue to monitor.
[2020-07-16] VITALS: BP 106/67
--- NOTE | 2020-07-16 00:30 | NUR ---
NURSE NOTES: Found pt with NRB off face while making rounds. SpO2 was 84%. Placed mask back on and SpO2 increased to 92%. Will continue to monitor.
[2020-07-16 04:00] VITALS: BP 125/78
[2020-07-16] MEDS: NovoLOG Insulin Flexpen SUBQ SCH ×4 (06:07→20:24)
--- NOTE | 2020-07-16 07:00 | NUR ---
NURSE NOTES: Assisted pt to bedpan. Pt had a coughing fit, resulting in SpO2 decreasing to 77% while on NRB. Pt was able to catch her breath, SpO2 currently 93%. Will continue to monitor.
--- NOTE | 2020-07-16 07:22 | NUR ---
NURSE HAND-OFF REPORT: Important Events on Shift:[Desaturates to 70s or 80s with exertion on NRB] Patient Status: [Stable] Diet: [CCHO soft] Pending Orders: [NA] Pending Results/Labs:[NA] Pending MD notification:[NA] Latest Vital Signs: Temperature 97.9 , Pulse 71 , B/P 125 /78 , Respiratory Rate 25 , O2 SAT 95 , Nasal Cannula, O2 Flow Rate 15.0 . Vital Sign Comment: [Stable] EKG Rhythm: Sinus Rhythm Rhythm change?: N MD Notified?: - MD Response: Latest Plaza Fall Score: 30 Fall Risk: Medium Risk Safety Measures: Call light Within Reach, Bed Alarm Zone 3, Side Rails Side Rails x2, Bed position Low and Locked. Fall Precautions: Yellow Socks Report given to [LIANA Adrian].
--- NOTE | 2020-07-16 07:25 | NUR ---
NURSE NOTES: Report received from Laila Panchal RN.Pt asleep but easily wakes up with verbal commands noted no resp distress,on 100% NRB mask,verbalized having a headache,pt with elevated temp 100.8,refused to eat breakfast,desaturates to 80's with slight activity,,pt on SR on the monitor,skin hot to touch,,with PIV to RH intact ,SR up x HOB elevated bed lock in lowest position,will continue with plans of care.
[2020-07-16 08:00] VITALS: BP 126/73
[2020-07-16] MEDS: Enoxaparin 80mg Inj SUBQ SCH (09:43)
[2020-07-16] MEDS: dexAMETHasone 10mg/ml Inj IV SCH (09:43)
[2020-07-16] MEDS: Docusate 100mg cap ORAL SCH ×2 (09:43→20:23)
[2020-07-16] MEDS: Losartan 25mg tab ORAL SCH (09:44)
--- NOTE | 2020-07-16 09:45 | NUR ---
NURSE NOTES: Pt given Tylenol 650 mg PO,cold compress applied to forehead,pulled up and repositioned for comfort,will monitor pt's temp.
--- NOTE | 2020-07-16 09:48 | Pulmonology Progress Note ---
Subjective ROS Limited/Unobtainable: Yes Interval Events: weaning failed for several days Constitutional: Reports: no symptoms HEENT: Repors: no symptoms Respiratory: Reports: shortness of breath Gastrointestinal/Abdominal: Reports: no symptoms Psychiatric: Reports: no symptoms Skin: Reports: no symptoms Musculoskeletal: Reports: no symptoms Allergies: Coded Allergies: No Known Allergies (Unverified , 07/07/20) Objective Last 24 Hour Vital Signs Date Time Temp Pulse Resp B/P (MAP) Pulse Ox O2 Delivery O2 Flow Rate FiO2 07/16/20 08:57 92 Non-Rebreather 15.0 100 07/16/20 04:00 Non-Rebreather 15.0 07/16/20 04:00 97.9 94 25 125/78 (94) 95 07/16/20 04:00 71 07/16/20 00:00 97.3 79 28 106/67 (80) 93 07/16/20 00:00 72 07/16/20 00:00 Non-Rebreather 15.0 07/15/20 20:00 Non-Rebreather 15.0 07/15/20 20:00 66 07/15/20 20:00 98.1 68 22 102/62 (75) 99 07/15/20 19:44 95 Non-Rebreather 15.0 100 07/15/20 16:00 98.2 70 21 115/73 (87) 97 07/15/20 16:00 67 07/15/20 16:00 Non-Rebreather 15.0 07/15/20 12:00 97.2 72 19 102/50 (67) 98 07/15/20 12:00 Non-Rebreather 15.0 07/15/20 12:00 80 Intake and Output 07/15/20 07/16/20 18:59 06:59 Intake Total 600 ml 360 ml Balance 600 ml 360 ml Intake Oral 600 ml 360 ml # Voids 2 General Appearance: no acute distress HEENT: normocephalic Respiratory: decreased breath sounds Cardiovascular: normal peripheral pulses Abdomen: normal bowel sounds Laboratory Tests 07/16/20 08:19: Arterial Blood pH 7.461H, Arterial Blood Partial Pressure CO2 37.0, Arterial Blood Partial Pressure O2 63.4L, Arterial Blood HCO3 25.8, Arterial Blood Oxygen Saturation 91.8L, Arterial Blood Base Excess 2.1H, Timbo Test Positive Current Medications Medications (Trade) Dose Ordered Sig/Marian Route PRN Reason Start Time Stop Time Status Last Admin Dose Admin Acetaminophen (Tylenol) 650 mg Q6H PRN ORAL For Pain 07/07/20 15:45 08/06/20 15:44 07/15/20 08:12 Acetaminophen (Tylenol) 650 mg Q6H PRN ORAL FEVER 07/07/20 16:15 08/06/20 16:14 Dexamethasone Sodium Phosphate (Decadron 10mg/ ml Inj) 6 mg DAILY IV 07/08/20 09:00 07/17/20 09:01 07/15/20 08:12 Dextrose (Dextrose 50%) 25 ml Q30M PRN IV Hypoglycemia 07/07/20 15:45 10/05/20 15:44 Dextrose (Dextrose 50%) 50 ml Q30M PRN IV Hypoglycemia 07/07/20 15:45 10/05/20 15:44 Docusate Sodium (Colace) 100 mg EVERY 12 HOURS ORAL 07/12/20 21:00 08/08/20 08:59 07/15/20 20:09 Enoxaparin Sodium (Lovenox) 80 mg DAILY SUBQ 07/08/20 09:00 10/06/20 08:59 07/15/20 08:14 Famotidine (Pepcid) 20 mg BID ORAL 07/09/20 09:00 10/07/20 08:59 07/15/20 17:23 Insulin Aspart (NovoLOG) BEFORE MEALS AND HS SUBQ 07/07/20 16:30 10/05/20 16:29 07/15/20 20:11 Losartan Potassium (Cozaar) 25 mg DAILY ORAL 07/11/20 11:00 08/10/20 10:59 07/15/20 08:12 Assessment/Plan Assessment/Plan 1. COVID-19 pneumonia. - COVID-19 PCR positive (07/07) -> continue isolation - s/p remdexsivir - s/p azithromycin - CXR (07/13) no significant change 2. Hypoxemia. - on decadron (07/08-) - ABG better this AM - Continue NRB 3. Hypertension. 4. Diabetes mellitus. 5. DVT ppx - on Lovenox Discussed with bedside RN. The care for this patient was discussed with my supervising physician Time spent for this case was approximately 31 minutes Milton Howard Jul 16, 2020 09:48
[2020-07-16 12:00] VITALS: BP 104/67
--- NOTE | 2020-07-16 12:00 | NUR ---
NURSE NOTES: Pt asleep noted no resp distress ,temp down to 99.9
--- NOTE | 2020-07-16 15:12 | Nephrology Progress Note ---
Assessment/Plan Problem List: (1) Hyponatremia (2) Hypoxia (3) Pneumonitis (4) Acute respiratory failure due to COVID-19 (5) DMII (diabetes mellitus, type 2) (6) HTN (hypertension) Assessment Hyponatremia, improved with saline infusion COVID-19 infection Pneumonia, acute respiratory failure, hypoxia Diabetes mellitus Hypertension Plan July 16: No labs drawn today. Continue per consultants. Stable from renal standpoint of view. July 15: Labs reviewed. Renal parameters stable. July 14: No labs from today. Continue per current management. Check labs tomorrow. July 13: No labs drawn today. Stable from renal standpoint of view. July 12: Today's labs pending. Medication list reviewed. Continue per current management and consultants. July 11: Labs reviewed. Renal parameters stable. July 10: Labs reviewed. Renal parameters electrolytes stable. Continue per consultants. July 09: Labs reviewed. Renal parameters and electrolytes stable. Continue per ID and pulmonary. Subjective ROS Limited/Unobtainable: No Objective Objective Last 24 Hour Vital Signs Date Time Temp Pulse Resp B/P (MAP) Pulse Ox O2 Delivery O2 Flow Rate FiO2 07/16/20 12:00 Non-Rebreather 15.0 07/16/20 12:00 85 07/16/20 12:00 99.9 96 25 104/67 (79) 92 07/16/20 10:15 100.0 07/16/20 09:44 126/73 07/16/20 08:57 92 Non-Rebreather 15.0 100 07/16/20 08:00 100.8 101 26 126/73 (90) 94 07/16/20 08:00 Non-Rebreather 15.0 07/16/20 08:00 106 07/16/20 04:00 Non-Rebreather 15.0 07/16/20 04:00 97.9 94 25 125/78 (94) 95 07/16/20 04:00 71 07/16/20 00:00 97.3 79 28 106/67 (80) 93 07/16/20 00:00 72 07/16/20 00:00 Non-Rebreather 15.0 07/15/20 20:00 Non-Rebreather 15.0 07/15/20 20:00 66 07/15/20 20:00 98.1 68 22 102/62 (75) 99 2/13/21 19:44 95 Non-Rebreather 15.0 100 07/15/20 16:00 98.2 70 21 115/73 (87) 97 07/15/20 16:00 67 07/15/20 16:00 Non-Rebreather 15.0 Intake and Output 07/15/20 07/16/20 19:00 07:00 Intake Total 600 ml 360 ml Balance 600 ml 360 ml Intake Oral 600 ml 360 ml # Voids 2 Current Medications Medications (Trade) Dose Ordered Sig/Marian Route PRN Reason Start Time Stop Time Status Last Admin Dose Admin Acetaminophen (Tylenol) 650 mg Q6H PRN ORAL For Pain 07/07/20 15:45 08/06/20 15:44 07/16/20 09:45 Acetaminophen (Tylenol) 650 mg Q6H PRN ORAL FEVER 07/07/20 16:15 08/06/20 16:14 Dexamethasone Sodium Phosphate (Decadron 10mg/ ml Inj) 6 mg DAILY IV 07/08/20 09:00 07/17/20 09:01 07/16/20 09:43 Dextrose (Dextrose 50%) 25 ml Q30M PRN IV Hypoglycemia 07/07/20 15:45 10/05/20 15:44 Dextrose (Dextrose 50%) 50 ml Q30M PRN IV Hypoglycemia 07/07/20 15:45 10/05/20 15:44 Docusate Sodium (Colace) 100 mg EVERY 12 HOURS ORAL 07/12/20 21:00 08/08/20 08:59 07/16/20 09:43 Enoxaparin Sodium (Lovenox) 80 mg DAILY SUBQ 07/08/20 09:00 10/06/20 08:59 07/16/20 09:43 Famotidine (Pepcid) 20 mg BID ORAL 07/09/20 09:00 10/07/20 08:59 07/16/20 09:44 Insulin Aspart (NovoLOG) BEFORE MEALS AND HS SUBQ 07/07/20 16:30 10/05/20 16:29 07/15/20 20:11 Losartan Potassium (Cozaar) 25 mg DAILY ORAL 07/11/20 11:00 08/10/20 10:59 07/16/20 09:44 Laboratory Tests 07/16/20 08:19: Arterial Blood pH 7.461H, Arterial Blood Partial Pressure CO2 37.0, Arterial Blood Partial Pressure O2 63.4L, Arterial Blood HCO3 25.8, Arterial Blood Oxygen Saturation 91.8L, Arterial Blood Base Excess 2.1H, Timbo Test Positive Height (Feet): 5 Height (Inches): 3.00 Weight (Pounds): 162 General Appearance: mild distress EENT: other - On nonrebreather mask Cardiovascular: tachycardia Respiratory/Chest: decreased breath sounds Abdomen: distended Objective No change Anurag Bridges MD Jul 16, 2020 15:12
[2020-07-16 16:00] VITALS: BP 106/68
--- NOTE | 2020-07-16 16:00 | NUR ---
NURSE NOTES: Pt awake,verbalized feeling better ,pt's temp down to normal,ate dinner with appetite.
--- NOTE | 2020-07-16 19:25 | NUR ---
NURSE HAND-OFF REPORT: Important Events on Shift:on and off fever Patient Statusunstable Diet: CCHO soft mech Pending Orders: Pending Results/Labs:N/A Pending MD notification:N/A Latest Vital Signs: Temperature 98.2 , Pulse 73 , B/P 106 /68 , Respiratory Rate 24 , O2 SAT 95 , Nasal Cannula, O2 Flow Rate 15.0 . Vital Sign Comment: unstable EKG Rhythm: Sinus Rhythm Rhythm change?: N MD Notified?: - MD Response: Latest Plaza Fall Score: 30 Fall Risk: Medium Risk Safety Measures: Call light Within Reach, Bed Alarm Zone 3, Side Rails Side Rails x2, Bed position Low and Locked. Fall Precautions: Yellow Socks Report given to Cely Bush RN..
--- NOTE | 2020-07-16 19:26 | NUR ---
NURSE NOTES: Report received from LIANA Dickens. Upon assessment pt is A/Ox4. PERRLA. Able to make needs known. 0/10 pain. 5-lead EKG shows SR 70 bpm. Vitals WNL. Afebrile. Observed on N/R 15L 100% saturating at 96%. RLQ auscultated. Pt claims she has not had a BM in 5 days. Right IV patent and intact. Bed kept in lowest and locked position. Bed alarm on. Call light within reach. Will monitor.
[2020-07-16 20:00] VITALS: BP 104/54
--- NOTE | 2020-07-16 20:44 | Infectious Diseases Prog Note ---
Assessment/Plan Problems: (1) Fever Assessment & Plan: rule out sepsis, will send blood culture x 2 and sputum culture and UA , start vancomycin and cefepime empirically (2) COVID-19 virus infection Assessment & Plan: complicated with pneumonia and hypoxemia, S/P remdisvir for 5 days, HAD POSITIVE PCR test , keep patient in enhanced droplet isolation, titrate oxygen to keep O2 sat more than 90%, RECOMMEND PRONE POSITION . (3) Dyspnea due to COVID-19 Assessment & Plan: continue respiratory support with BiPAP PRN and nonrebreather mask with high flow oxygen PRN, MAY NEED PRONING (4) Pneumonia due to COVID-19 virus Assessment & Plan: s/p Remdisvir IV for 5 days, and Decadron, monitor chest x- ray. (5) Acute respiratory failure due to COVID-19 Assessment & Plan: suspect due to pneumonitis from COVID 19 AND ALVELOAR DAMAGE , continue respiratory support with High flow O2 via NRB mask and BIPAP PRN , close monitor of ABG and chest x-ray. PRONE POSITION Subjective Constitutional: Reports: fever, fatigue HEENT: Reports: no symptoms Respiratory: Reports: shortness of breath, dry cough Cardiovascular: Reports: no symptoms Gastrointestinal/Abdominal: Reports: no symptoms Genitourinary: Reports: no symptoms Neurologic: Reports: no symptoms Psychiatric: Reports: no symptoms Skin: Reports: no symptoms Endocrine: Reports: no symptoms Hematologic: Reports: no symptoms Musculoskeletal: Reports: no symptoms Allergies: Coded Allergies: No Known Allergies (Unverified , 07/07/20) she continue to be hypoxemic and SOB on high flow oxygen via NRB mask, so now on BIPAP with FIO2 65 % , NO FEVER OR CHILLS, NO PHLEGM Objective Last 24 Hour Vital Signs Date Time Temp Pulse Resp B/P (MAP) Pulse Ox O2 Delivery O2 Flow Rate FiO2 07/16/20 20:00 60 07/16/20 20:00 Non-Rebreather 15.0 07/16/20 19:10 93 Non-Rebreather 15.0 100 07/16/20 16:00 73 07/16/20 16:00 Non-Rebreather 15.0 07/16/20 16:00 98.2 76 24 106/68 (81) 95 07/16/20 12:00 Non-Rebreather 15.0 07/16/20 12:00 85 07/16/20 12:00 99.9 96 25 104/67 (79) 92 07/16/20 10:15 100.0 07/16/20 09:44 126/73 07/16/20 08:57 92 Non-Rebreather 15.0 100 07/16/20 08:00 100.8 101 26 126/73 (90) 94 07/16/20 08:00 Non-Rebreather 15.0 07/16/20 08:00 106 07/16/20 04:00 Non-Rebreather 15.0 07/16/20 04:00 97.9 94 25 125/78 (94) 95 07/16/20 04:00 71 07/16/20 00:00 97.3 79 28 106/67 (80) 93 07/16/20 00:00 72 07/16/20 00:00 Non-Rebreather 15.0 Height (Feet): 5 Height (Inches): 3.00 Weight (Pounds): 162 General Appearance: WD/WN, no acute distress HEENT: normocephalic, atraumatic, anicteric, mucous membranes moist, PERRL Respiratory/Chest: chest wall non-tender, no respiratory distress, no accessory muscle use, decreased breath sounds Cardiovascular: normal peripheral pulses, normal rate, regular rhythm, no gallop/murmur, no JVD Abdomen: normal bowel sounds, soft, non tender, no organomegaly, non distended, no mass Genitourinary: normal external genitalia Extremities: no cyanosis, no clubbing Skin: no rash, no lesions Neurologic/Psychiatric: alert, responsive Lymphatic: no neck adenopathy, no groin adenopathy Musculoskeletal: normal muscle bulk, no effusion Laboratory Tests Test 07/16/20 08:19 Arterial Blood pH 7.461 (7.350-7.450) Arterial Blood Partial Pressure CO2 37.0 mmHg (35.0-45.0) Arterial Blood Partial Pressure O2 63.4 mmHg (75.0-100.0) L Arterial Blood HCO3 25.8 mmol/L (22.0-26.0) Arterial Blood Oxygen Saturation 91.8 % (95-100) L Arterial Blood Base Excess 2.1 (-2-2) H Timbo Test Positive Current Medications Medications (Trade) Dose Ordered Sig/Marian Route PRN Reason Start Time Stop Time Status Last Admin Dose Admin Acetaminophen (Tylenol) 650 mg Q6H PRN ORAL For Pain 07/07/20 15:45 08/06/20 15:44 07/16/20 09:45 Acetaminophen (Tylenol) 650 mg Q6H PRN ORAL FEVER 07/07/20 16:15 08/06/20 16:14 Dexamethasone Sodium Phosphate (Decadron 10mg/ ml Inj) 6 mg DAILY IV 07/08/20 09:00 07/17/20 09:01 07/16/20 09:43 Dextrose (Dextrose 50%) 25 ml Q30M PRN IV Hypoglycemia 07/07/20 15:45 10/05/20 15:44 Dextrose (Dextrose 50%) 50 ml Q30M PRN IV Hypoglycemia 07/07/20 15:45 10/05/20 15:44 Docusate Sodium (Colace) 100 mg EVERY 12 HOURS ORAL 07/12/20 21:00 08/08/20 08:59 07/16/20 20:23 Enoxaparin Sodium (Lovenox) 80 mg DAILY SUBQ 07/08/20 09:00 10/06/20 08:59 07/16/20 09:43 Famotidine (Pepcid) 20 mg BID ORAL 07/09/20 09:00 10/07/20 08:59 07/16/20 17:24 Insulin Aspart (NovoLOG) BEFORE MEALS AND HS SUBQ 07/07/20 16:30 10/05/20 16:29 07/16/20 20:24 Losartan Potassium (Cozaar) 25 mg DAILY ORAL 07/11/20 11:00 08/10/20 10:59 07/16/20 09:44 Vancomycin HCl ([facility] to dose) 1 ea DAILY PRN MISC Per rx protocol 07/16/20 20:45 08/15/20 20:44 Nataliia Melo M.D. Jul 16, 2020 20:44
[2020-07-16] MEDS: Cefepime HCl 2 GM in D5W 55 ML IVPB SCH (21:23)
--- NOTE | 2020-07-16 21:46 | NUR ---
NURSE NOTES: Blood and sputum cultures collected and sent to lab per Dr. Velazquez orders. Blood tinged sputum observed. No distress noted. Will monitor.
--- NOTE | 2020-07-16 22:35 | Cardiology Progress Note ---
Assessment/Plan Assessment/Plan 1. COVID-19 viral PNA on remdesivir and dexamethasone WBCs trending upward 2. Respiratory failure 2/2 acute PNA O2 dependent 3. HFpEF acute on chronic diastolic HF with preserved EF EF 65%, compensated BNP negative 4. DMII 5. GERD Echo negative for acute decompensated HF. Diuresis as needed with IV Lasix. SBP and HR controlled. Subjective Subjective In isolation, no distress Objective Last 24 Hour Vital Signs Date Time Temp Pulse Resp B/P (MAP) Pulse Ox O2 Delivery O2 Flow Rate FiO2 07/16/20 20:00 97.5 66 30 104/54 (71) 95 07/16/20 20:00 60 07/16/20 20:00 Non-Rebreather 15.0 07/16/20 19:10 93 Non-Rebreather 15.0 100 07/16/20 16:00 73 07/16/20 16:00 Non-Rebreather 15.0 07/16/20 16:00 98.2 76 24 106/68 (81) 95 07/16/20 12:00 Non-Rebreather 15.0 07/16/20 12:00 85 07/16/20 12:00 99.9 96 25 104/67 (79) 92 07/16/20 10:15 100.0 07/16/20 09:44 126/73 07/16/20 08:57 92 Non-Rebreather 15.0 100 07/16/20 08:00 100.8 101 26 126/73 (90) 94 07/16/20 08:00 Non-Rebreather 15.0 07/16/20 08:00 106 07/16/20 04:00 Non-Rebreather 15.0 07/16/20 04:00 97.9 94 25 125/78 (94) 95 07/16/20 04:00 71 07/16/20 00:00 97.3 79 28 106/67 (80) 93 07/16/20 00:00 72 07/16/20 00:00 Non-Rebreather 15.0 Intake and Output 07/15/20 07/16/20 19:00 07:00 Intake Total 600 ml 360 ml Balance 600 ml 360 ml Intake Oral 600 ml 360 ml # Voids 2 Laboratory Tests Test 07/16/20 08:19 Arterial Blood pH 7.461 (7.350-7.450) Arterial Blood Partial Pressure CO2 37.0 mmHg (35.0-45.0) Arterial Blood Partial Pressure O2 63.4 mmHg (75.0-100.0) L Arterial Blood HCO3 25.8 mmol/L (22.0-26.0) Arterial Blood Oxygen Saturation 91.8 % (95-100) L Arterial Blood Base Excess 2.1 (-2-2) H Timbo Test Positive Blanca Lobato PA-C Jul 16, 2020 22:35
[2020-07-16] MEDS ORDERED: Vancomycin 1.25gm/250ml Premix IVPB ONE (23:00)
[2020-07-17] VITALS: BP 104/66
[2020-07-17 04:00] VITALS: BP 121/74
[2020-07-17] MEDS: NovoLOG Insulin Flexpen SUBQ SCH ×4 (05:32→21:00)
--- NOTE | 2020-07-17 07:20 | NUR ---
NURSE NOTES: Received pt from LIANA Ta. Pt is awake, alert, on non-rebreather mask 15L 100% FiO2 saturating 91%. Pt used the bed side commode and is short of breath upon going back to bed with HR 120s. SR to ST on the toy assembly supervisor. Peripheral IV in R hand 20 G is intact and patent. Recent labs, medications and MD orders reviewed. Bed is locked and in lowest position, bed alarm on, call light is with the pt Will continue to monitor pt. Will continue with the plan of care.
--- NOTE | 2020-07-17 07:20 | NUR ---
NURSE HAND-OFF REPORT: Important Events on Shift:no changes; on NR mask for 91% o2 sat Patient Status: Stable Diet: CCHO Mech Soft Pending Orders: Pending Results/Labs: Pending MD notification: Latest Vital Signs: Temperature 97.7 , Pulse 88 , B/P 121 /74 , Respiratory Rate 28 , O2 SAT 95 , Nasal Cannula, O2 Flow Rate 15.0 . Vital Sign Comment: WNL EKG Rhythm: Sinus Rhythm Rhythm change?: N MD Notified?: - MD Response: Latest Plaza Fall Score: 30 Fall Risk: Medium Risk Safety Measures: Call light Within Reach, Bed Alarm Zone 3, Side Rails Side Rails x2, Bed position Low and Locked. Fall Precautions: Yellow Socks Report given to LIANA Koroma.
[2020-07-17 08:00] VITALS: BP 114/73
[2020-07-17] MEDS: dexAMETHasone 10mg/ml Inj IV SCH (08:36)
[2020-07-17] MEDS: Cefepime HCl 2 GM in D5W 55 ML IVPB SCH ×2 (08:37→21:26)
[2020-07-17] MEDS: Docusate 100mg cap ORAL SCH ×2 (08:38→21:00)
[2020-07-17] MEDS: Losartan 25mg tab ORAL SCH (08:39)
[2020-07-17] MEDS: Enoxaparin 80mg Inj SUBQ SCH (08:41)
--- NOTE | 2020-07-17 09:55 | NUR ---
CASE MANAGEMENT:REVIEW 07/17/20 SI: COVID PNEUMONIA 97.7 75 88 28 121/74 95% ON 15L/100%/NRB NO LABS TODAY IS: IV VANCOMYCIN Q12 IV CEFEPIME Q12 COZAAR PO QD PEPCID PO BID LOVENOX SQ QD : STEP DOWN UNIT DCP: FROM HOME PLAN: WEAN OXYGEN APPLY FOR INSURANCE CONTINUE IV ANTIBIOTICS
--- NOTE | 2020-07-17 10:17 | Pulmonology Progress Note ---
Subjective ROS Limited/Unobtainable: No Interval Events: weaning failed for several days Constitutional: Reports: fever, fatigue HEENT: Repors: no symptoms Respiratory: Reports: shortness of breath Gastrointestinal/Abdominal: Reports: no symptoms Psychiatric: Reports: no symptoms Skin: Reports: no symptoms Musculoskeletal: Reports: no symptoms Allergies: Coded Allergies: No Known Allergies (Unverified , 07/07/20) Objective Last 24 Hour Vital Signs Date Time Temp Pulse Resp B/P (MAP) Pulse Ox O2 Delivery O2 Flow Rate FiO2 07/17/20 08:39 114/73 07/17/20 08:00 Non-Rebreather 15.0 07/17/20 04:00 75 07/17/20 04:00 97.7 88 28 121/74 (90) 95 07/17/20 04:00 Non-Rebreather 15.0 07/17/20 00:00 Non-Rebreather 15.0 07/17/20 00:00 97.6 76 28 104/66 (79) 95 07/17/20 00:00 72 07/16/20 20:00 97.5 66 30 104/54 (71) 95 07/16/20 20:00 60 07/16/20 20:00 Non-Rebreather 15.0 07/16/20 19:10 93 Non-Rebreather 15.0 100 07/16/20 16:00 73 07/16/20 16:00 Non-Rebreather 15.0 07/16/20 16:00 98.2 76 24 106/68 (81) 95 07/16/20 12:00 Non-Rebreather 15.0 07/16/20 12:00 85 07/16/20 12:00 99.9 96 25 104/67 (79) 92 Intake and Output 07/16/20 07/17/20 19:00 07:00 Intake Total 660 ml 310 ml Balance 660 ml 310 ml Intake Oral 660 ml 200 ml IV Total 110 ml # Voids 1 1 General Appearance: no acute distress HEENT: normocephalic Respiratory: decreased breath sounds Cardiovascular: normal peripheral pulses Abdomen: normal bowel sounds Microbiology Date/Time Source Procedure Growth Status 07/16/20 21:30 Sputum Expectorated Gram Stain - Final Resulted 07/16/20 21:30 Sputum Expectorated Sputum Culture Pending Resulted Current Medications Medications (Trade) Dose Ordered Sig/Marian Route PRN Reason Start Time Stop Time Status Last Admin Dose Admin Acetaminophen (Tylenol) 650 mg Q6H PRN ORAL For Pain 07/07/20 15:45 08/06/20 15:44 07/16/20 09:45 Acetaminophen (Tylenol) 650 mg Q6H PRN ORAL FEVER 07/07/20 16:15 08/06/20 16:14 Cefepime HCl 2 gm/ Dextrose 55 ml @ 110 mls/hr EVERY 12 HOURS IVPB 07/16/20 22:00 07/23/20 21:59 07/17/20 08:37 Dextrose (Dextrose 50%) 25 ml Q30M PRN IV Hypoglycemia 07/07/20 15:45 10/05/20 15:44 Dextrose (Dextrose 50%) 50 ml Q30M PRN IV Hypoglycemia 07/07/20 15:45 10/05/20 15:44 Docusate Sodium (Colace) 100 mg EVERY 12 HOURS ORAL 07/12/20 21:00 08/08/20 08:59 07/17/20 08:38 Enoxaparin Sodium (Lovenox) 80 mg DAILY SUBQ 07/08/20 09:00 10/06/20 08:59 07/17/20 08:41 Famotidine (Pepcid) 20 mg BID ORAL 07/09/20 09:00 10/07/20 08:59 07/17/20 08:39 Insulin Aspart (NovoLOG) BEFORE MEALS AND HS SUBQ 07/07/20 16:30 10/05/20 16:29 07/16/20 20:24 Losartan Potassium (Cozaar) 25 mg DAILY ORAL 07/11/20 11:00 08/10/20 10:59 07/17/20 08:39 Vancomycin HCl ([facility] pharmacy to dose) 1 ea DAILY PRN MISC Per rx protocol 07/16/20 20:45 08/15/20 20:44 Vancomycin HCl 750 mg/Sodium Chloride 275 ml @ 183.333 mls/hr Q12H IVPB 07/17/20 10:00 07/22/20 09:59 Assessment/Plan Assessment/Plan 1. COVID-19 pneumonia. - COVID-19 PCR positive (2) -> continue isolation due to fever - s/p remdexsivir - s/p azithromycin - CXR (07/13) no significant change 2. Hypoxemia. - on decadron (07/08-) - ABG better - Saturating at 91% on NRB 3. Hypertension. 4. Diabetes mellitus. 5. DVT ppx - on Lovenox Discussed with bedside RN. The care for this patient was discussed with my supervising physician Time spent for this case was approximately 31 minutes Milton Howard Jul 17, 2020 10:17
--- NOTE | 2020-07-17 10:30 | NUR ---
NURSE NOTES: Initial assessment done. Morning medications administered per order. Pt is resting, on non-rebreather mask 15L 100% FiO2 saturating 90-94%. VSS. Sinus Rhythm on the vehicle monitor technician. Will continue to closely monitor pt.
[2020-07-17] MEDS: Vancomycin 750mg/NS 275ml IVPB SCH ×4 (10:34→22:00)
[2020-07-17 12:00] VITALS: BP 117/73
--- NOTE | 2020-07-17 12:34 | Nephrology Progress Note ---
Assessment/Plan Problem List: (1) Hyponatremia (2) Hypoxia (3) Pneumonitis (4) Acute respiratory failure due to COVID-19 (5) DMII (diabetes mellitus, type 2) (6) HTN (hypertension) Assessment Hyponatremia, improved with saline infusion COVID-19 infection Pneumonia, acute respiratory failure, hypoxia Diabetes mellitus Hypertension Plan July 17: No labs drawn today. Remains stable from renal standpoint today. July 16: No labs drawn today. Continue per consultants. Stable from renal standpoint of view. July 15: Labs reviewed. Renal parameters stable. July 14: No labs from today. Continue per current management. Check labs tomorrow. July 13: No labs drawn today. Stable from renal standpoint of view. July 12: Today's labs pending. Medication list reviewed. Continue per current management and consultants. July 11: Labs reviewed. Renal parameters stable. July 10: Labs reviewed. Renal parameters electrolytes stable. Continue per consultants. July 09: Labs reviewed. Renal parameters and electrolytes stable. Continue per ID and pulmonary. Subjective ROS Limited/Unobtainable: Yes Objective Objective Last 24 Hour Vital Signs Date Time Temp Pulse Resp B/P (MAP) Pulse Ox O2 Delivery O2 Flow Rate FiO2 07/17/20 08:39 114/73 07/17/20 08:00 98.1 98 22 114/73 (87) 91 07/17/20 08:00 Non-Rebreather 15.0 07/17/20 08:00 95 07/17/20 07:00 91 Non-Rebreather 15.0 100 07/17/20 04:00 75 07/17/20 04:00 97.7 88 28 121/74 (90) 95 07/17/20 04:00 Non-Rebreather 15.0 07/17/20 00:00 Non-Rebreather 15.0 07/17/20 00:00 97.6 76 28 104/66 (79) 95 07/17/20 00:00 72 07/16/20 20:00 97.5 66 30 104/54 (71) 95 07/16/20 20:00 60 07/16/20 20:00 Non-Rebreather 15.0 07/16/20 19:10 93 Non-Rebreather 15.0 100 07/16/20 16:00 73 07/16/20 16:00 Non-Rebreather 15.0 07/16/20 16:00 98.2 76 24 106/68 (81) 95 Intake and Output 07/16/20 07/17/20 19:00 07:00 Intake Total 660 ml 310 ml Balance 660 ml 310 ml Intake Oral 660 ml 200 ml IV Total 110 ml # Voids 1 1 No labs drawn today Height (Feet): 5 Height (Inches): 3.00 Weight (Pounds): 162 General Appearance: no apparent distress EENT: other - On nonrebreather mask Objective No change Anurag Bridges MD Jul 17, 2020 12:34
[2020-07-17 16:00] VITALS: BP 106/66
--- NOTE | 2020-07-17 19:25 | NUR ---
Received report from Franci and assumed care of patient.
--- NOTE | 2020-07-17 19:25 | NUR ---
NURSE HAND-OFF REPORT: Important Events on Shift:None Patient Status: full code Diet: CCHO Mechanical soft Pending Orders: N Pending Results/Labs:N Pending MD notification:N Latest Vital Signs: Temperature 98.1 , Pulse 83 , B/P 106 /66 , Respiratory Rate 20 , O2 SAT 94 , Nasal Cannula, O2 Flow Rate 15.0 . Vital Sign Comment: stable EKG Rhythm: Sinus Rhythm Rhythm change?: N MD Notified?: - MD Response: Latest Plaza Fall Score: 30 Fall Risk: Medium Risk Safety Measures: Call light Within Reach, Bed Alarm Zone 3, Side Rails Side Rails x2, Bed position Low and Locked. Fall Precautions: Yellow Socks Report given to LIANA Echeverria.
[2020-07-17 20:00] VITALS: BP 103/63
--- NOTE | 2020-07-17 20:37 | Infectious Diseases Prog Note ---
Assessment/Plan Problems: (1) Fever Assessment & Plan: rule out sepsis, monitor blood culture x 2 and sputum culture, continue vancomycin and cefepime empirically (2) COVID-19 virus infection Assessment & Plan: complicated with pneumonia and hypoxemia, S/P remdisvir for 5 days, HAD POSITIVE PCR test , keep patient in enhanced droplet isolation, titrate oxygen to keep O2 sat more than 90%, RECOMMEND PRONE POSITION . (3) Dyspnea due to COVID-19 Assessment & Plan: continue respiratory support with BiPAP PRN and nonrebreather mask with high flow oxygen PRN, MAY NEED PRONING (4) Pneumonia due to COVID-19 virus Assessment & Plan: s/p Remdisvir IV for 5 days, and Decadron, monitor chest x-ray. (5) Acute respiratory failure due to COVID-19 Assessment & Plan: suspect due to pneumonitis from COVID 19 AND ALVELOAR DAMAGE , continue respiratory support with High flow O2 via NRB mask and BIPAP PRN , cl ose monitor of ABG and chest x-ray. PRONE POSITION Subjective Constitutional: Reports: no symptoms HEENT: Reports: no symptoms Respiratory: Reports: shortness of breath, dry cough Cardiovascular: Reports: no symptoms Gastrointestinal/Abdominal: Reports: no symptoms Genitourinary: Reports: no symptoms Neurologic: Reports: no symptoms Psychiatric: Reports: no symptoms Skin: Reports: no symptoms Allergies: Coded Allergies: No Known Allergies (Unverified , 07/07/20) she continue to be hypoxemic and SOB on high flow oxygen via NRB mask with FIO2 of 100 % , NO FEVER OR CHILLS TODAY , NO PHLEGM Objective Last 24 Hour Vital Signs Date Time Temp Pulse Resp B/P (MAP) Pulse Ox O2 Delivery O2 Flow Rate FiO2 07/17/20 16:00 Non-Rebreather 15.0 07/17/20 16:00 98.1 83 20 106/66 (79) 94 07/17/20 16:00 85 07/17/20 12:00 Non-Rebreather 15.0 07/17/20 12:00 98.8 95 22 117/73 (88) 94 07/17/20 12:00 94 07/17/20 08:39 114/73 07/17/20 08:00 98.1 98 22 114/73 (87) 91 07/17/20 08:00 Non-Rebreather 15.0 07/17/20 08:00 95 07/17/20 07:00 91 Non-Rebreather 15.0 100 07/17/20 04:00 75 07/17/20 04:00 97.7 88 28 121/74 (90) 95 07/17/20 04:00 Non-Rebreather 15.0 07/17/20 00:00 Non-Rebreather 15.0 07/17/20 00:00 97.6 76 28 104/66 (79) 95 07/17/20 00:00 72 Height (Feet): 5 Height (Inches): 3.00 Weight (Pounds): 162 General Appearance: WD/WN, no acute distress HEENT: normocephalic, atraumatic, anicteric, mucous membranes moist, PERRL Respiratory/Chest: chest wall non-tender, no respiratory distress, no accessory muscle use, decreased breath sounds, crackles/rales Cardiovascular: normal peripheral pulses, normal rate, regular rhythm, no gallop/murmur, no JVD Abdomen: normal bowel sounds, soft, non tender, no organomegaly, non distended, no mass, no scars Genitourinary: normal external genitalia Extremities: no cyanosis, no clubbing Skin: no rash, no lesions, no ulcers Neurologic/Psychiatric: alert, responsive Microbiology Date/Time Source Procedure Growth Status 07/16/20 21:30 Sputum Expectorated Gram Stain - Final Resulted 07/16/20 21:30 Sputum Expectorated Sputum Culture Pending Resulted Current Medications Medications (Trade) Dose Ordered Sig/Marian Route PRN Reason Start Time Stop Time Status Last Admin Dose Admin Acetaminophen (Tylenol) 650 mg Q6H PRN ORAL For Pain 07/07/20 15:45 08/06/20 15:44 07/16/20 09:45 Acetaminophen (Tylenol) 650 mg Q6H PRN ORAL FEVER 07/07/20 16:15 08/06/20 16:14 Cefepime HCl 2 gm/ Dextrose 55 ml @ 110 mls/hr EVERY 12 HOURS IVPB 07/16/20 22:00 07/23/20 21:59 07/17/20 08:37 Dextrose (Dextrose 50%) 25 ml Q30M PRN IV Hypoglycemia 07/07/20 15:45 10/05/20 15:44 Dextrose (Dextrose 50%) 50 ml Q30M PRN IV Hypoglycemia 07/07/20 15:45 10/05/20 15:44 Docusate Sodium (Colace) 100 mg EVERY 12 HOURS ORAL 07/12/20 21:00 08/08/20 08:59 07/17/20 08:38 Enoxaparin Sodium (Lovenox) 80 mg DAILY SUBQ 07/08/20 09:00 10/06/20 08:59 07/17/20 08:41 Famotidine (Pepcid) 20 mg BID ORAL 07/09/20 09:00 10/07/20 08:59 07/17/20 17:07 Insulin Aspart (NovoLOG) BEFORE MEALS AND HS SUBQ 07/07/20 16:30 10/05/20 16:29 07/17/20 16:39 Losartan Potassium (Cozaar) 25 mg DAILY ORAL 07/11/20 11:00 08/10/20 10:59 07/17/20 08:39 Vancomycin HCl (Vanco pharmacy to dose) 1 ea DAILY PRN MISC Per rx protocol 07/16/20 20:45 08/15/20 20:44 Vancomycin HCl 750 mg/Sodium Chloride 275 ml @ 183.333 mls/hr Q12H IVPB 07/17/20 10:00 07/22/20 09:59 07/17/20 10:34 Nataliia Velazquez M.D. Jul 17, 2020 20:37
--- NOTE | 2020-07-17 21:00 | NUR ---
In to patients room to perform assessment and administer medications. Patient said she was SOB so placed her on BIPAP. By doing so, she panicked and began to yell and become hypoxic. Removed patient from BIPAP and placed back onto NRB. Patient not anxious with NRB in place. Explained to patient that she would be more comfortable in her breathing if she could try and tolerate the BIPAP. Patient refused. Will continue to monitor patient.
[2020-07-18] VITALS: BP 124/79
--- NOTE | 2020-07-18 | NUR ---
pt reassessed. VSS will continue to monitor.
[2020-07-18 04:00] VITALS: BP 128/79
--- NOTE | 2020-07-18 04:00 | NUR ---
Pt assessed, doing well on NRB. States no pain. SOB with any exertion. Will continue to monitor. DIESEL TRUCK DRIVER to bedside to assist patient with water and bedpan. Patient voided without difficulties.
--- NOTE | 2020-07-18 05:30 | NUR ---
Pt febrile to 100.8. tylenol administered. Patient requested the pills be crushed and eaten with apple sauce. Patient tolerated and swallowed well. Patient followed the pills with some water. Again, tolerated well. Will reassess prior to end of shift to assess for fever reduction.
[2020-07-18 06:09] LABS: ALANINE AMINOTRANSFERASE 15 U/L (12-78); ALBUMIN 2.1 G/DL (3.4-5.0); ALBUMIN/GLOBULIN RATIO 0.4 (1.0-2.7); ALKALINE PHOSPHATASE 81 U/L (46-116); ANION GAP 11 mmol/L (5-15); ASPARTATE AMINO TRANSFERASE 28 U/L (15-37); BLOOD UREA NITROGEN 20 mg/dL (7-18); CALCIUM 8.8 MG/DL (8.5-10.1); CARBON DIOXIDE 25 MMOL/L (21-32); CHLORIDE 103 MMOL/L (98-107); CREATININE 0.8 MG/DL (0.55-1.30); POTASSIUM 4.4 MMOL/L (3.5-5.1); SODIUM 139 MMOL/L (136-145)
[2020-07-18] MEDS: NovoLOG Insulin Flexpen SUBQ SCH ×4 (06:13→22:45)
--- NOTE | 2020-07-18 06:37 | NUR ---
Patient temperature now 99.7, VSS.
--- NOTE | 2020-07-18 07:03 | NUR ---
Report given to Marcell who assumed care of patient.
[2020-07-18 08:00] VITALS: BP 116/74
--- NOTE | 2020-07-18 08:43 | Pulmonology Progress Note ---
Subjective ROS Limited/Unobtainable: Yes Interval Events: weaning failed for several days Constitutional: Reports: no symptoms, fever, other - Ihic=820.8 HEENT: Repors: no symptoms Respiratory: Reports: shortness of breath Gastrointestinal/Abdominal: Reports: no symptoms Psychiatric: Reports: no symptoms Skin: Reports: no symptoms Musculoskeletal: Reports: no symptoms Allergies: Coded Allergies: No Known Allergies (Unverified , 07/07/20) Objective Last 24 Hour Vital Signs Date Time Temp Pulse Resp B/P (MAP) Pulse Ox O2 Delivery O2 Flow Rate FiO2 07/18/20 06:22 99.7 07/18/20 04:00 106 07/18/20 04:00 Non-Rebreather 15.0 07/18/20 04:00 100.8 112 22 128/79 (95) 92 07/18/20 00:00 89 07/18/20 00:00 96.4 92 22 124/79 (94) 95 07/18/20 00:00 Non-Rebreather 15.0 07/17/20 20:14 94 Non-Rebreather 15.0 100 07/17/20 20:00 74 07/17/20 20:00 98.8 75 22 103/63 (76) 95 07/17/20 20:00 Non-Rebreather 15.0 07/17/20 16:00 Non-Rebreather 15.0 07/17/20 16:00 98.1 83 20 106/66 (79) 94 07/17/20 16:00 85 07/17/20 12:00 Non-Rebreather 15.0 07/17/20 12:00 98.8 95 22 117/73 (88) 94 07/17/20 12:00 94 Intake and Output 07/17/20 07/18/20 19:00 07:00 Intake Total 801.106 ml 100 ml Balance 801.106 ml 100 ml Intake Oral 300 ml 100 ml IV Total 501.106 ml # Voids 2 1 # Bowel Movements 1 General Appearance: no acute distress HEENT: normocephalic Respiratory: decreased breath sounds Cardiovascular: normal peripheral pulses Abdomen: normal bowel sounds Microbiology Date/Time Source Procedure Growth Status 07/16/20 21:30 Sputum Expectorated Gram Stain - Final Resulted 07/16/20 21:30 Sputum Culture - Preliminary Gram Negative Bacillus 1 Resulted 07/16/20 21:30 Blood Blood Culture - Preliminary NO GROWTH AFTER 24 HOURS Resulted 07/16/20 21:15 Blood Blood Culture - Preliminary NO GROWTH AFTER 24 HOURS Resulted Laboratory Tests 07/18/20 04:40: Sodium Level 139, Potassium Level 4.4, Chloride Level 103, Carbon Dioxide Level 25, Anion Gap 11, Blood Urea Nitrogen 20H, Creatinine 0.8, Estimat Glomerular Filtration Rate > 60, Glucose Level 138H, Uric Acid 3.2, Calcium Level 8.8, Phosphorus Level 3.0, Magnesium Level 2.1, Total Bilirubin 1.0, Aspartate Amino Transf (AST/SGOT) 28, Alanine Aminotransferase (ALT/SGPT) 15, Alkaline Reggie sphatase 81, Total Protein 7.3, Albumin 2.1L, Globulin 5.2, Albumin/Globulin Ratio 0.4L Current Medications Medications (Trade) Dose Ordered Sig/Marian Route PRN Reason Start Time Stop Time Status Last Admin Dose Admin Acetaminophen (Tylenol) 650 mg Q6H PRN ORAL For Pain 07/07/20 15:45 08/06/20 15:44 07/16/20 09:45 Acetaminophen (Tylenol) 650 mg Q6H PRN ORAL FEVER 07/07/20 16:15 08/06/20 16:14 07/18/20 05:48 Cefepime HCl 2 gm/ Dextrose 55 ml @ 110 mls/hr EVERY 12 HOURS IVPB 07/16/20 22:00 07/23/20 21:59 07/17/20 21:26 Dextrose (Dextrose 50%) 25 ml Q30M PRN IV Hypoglycemia 07/07/20 15:45 10/05/20 15:44 Dextrose (Dextrose 50%) 50 ml Q30M PRN IV Hypoglycemia 07/07/20 15:45 10/05/20 15:44 Docusate Sodium (Colace) 100 mg EVERY 12 HOURS ORAL 07/12/20 21:00 08/08/20 08:59 07/17/20 08:38 Enoxaparin Sodium (Lovenox) 80 mg DAILY SUBQ 07/08/20 09:00 10/06/20 08:59 07/17/20 08:41 Famotidine (Pepcid) 20 mg BID ORAL 07/09/20 09:00 10/07/20 08:59 07/17/20 17:07 Insulin Aspart (NovoLOG) BEFORE MEALS AND HS SUBQ 07/07/20 16:30 10/05/20 16:29 07/17/20 16:39 Losartan Potassium (Cozaar) 25 mg DAILY ORAL 07/11/20 11:00 08/10/20 10:59 07/17/20 08:39 Vancomycin HCl (Vanco pharmacy to dose) 1 ea DAILY PRN MISC Per rx protocol 07/16/20 20:45 08/15/20 20:44 Vancomycin HCl 750 mg/Sodium Chloride 275 ml @ 183.333 mls/hr Q12H IVPB 07/17/20 10:00 07/22/20 09:59 07/17/20 22:00 Assessment/Plan Assessment/Plan The patient was seen and examined at bedside and all new and available data was reviewed in the patients chart. I agree with the above findings, impression, and plan. (Patient was seen earlier today. Signature timestamp does not reflect patient encounter time) Vu Edward MD 1. COVID-19 pneumonia. - COVID-19 PCR positive (07/07) -> continue isolation due to fever - s/p remdexsivir - s/p azithromycin - CXR (07/13) no significant change 2. Hypoxemic respiratory distress - s/p decadron (07/08-07/17) - ABG better - Saturating at 94% on NRB 3. Hypertension. 4. Diabetes mellitus. 5. DVT ppx - on Lovenox 6. Sputum Cx shows Gram negative bacillus - on Abx Discussed with bedside RN. The care for this patient was discussed with my supervising physician Time spent for this case was approximately 31 minutes Milton Howard Jul 18, 2020 08:43 Vu Edward MD Jul 20, 2020 09:43
[2020-07-18] MEDS: Losartan 25mg tab ORAL SCH (09:49)
[2020-07-18] MEDS: Cefepime HCl 2 GM in D5W 55 ML IVPB SCH (09:49)
[2020-07-18] MEDS: Docusate 100mg cap ORAL SCH ×2 (09:49→21:00)
[2020-07-18] MEDS: Enoxaparin 80mg Inj SUBQ SCH (09:51)
[2020-07-18] MEDS: Vancomycin 750mg/NS 275ml IVPB SCH ×2 (10:42)
--- NOTE | 2020-07-18 11:00 | NUR ---
CASE MANAGEMENT:REVIEW 07/18/20 SI: COVID PNEUMONIA 100.8 112 22 93% ON 15L/100%/NRB IS: IV VANCOMYCIN Q12 IV CEFEPIME Q12 COZAAR PO QD PEPCID PO BID LOVENOX SQ QD : STEP DOWN UNIT DCP: FROM HOME PLAN: WEAN OXYGEN APPLY FOR INSURANCE CONTINUE IV ANTIBIOTICS
--- NOTE | 2020-07-18 11:13 | General Progress Note ---
Subjective Allergies: Coded Allergies: No Known Allergies (Unverified , 07/07/20) Objective Last 24 Hour Vital Signs Date Time Temp Pulse Resp B/P (MAP) Pulse Ox O2 Delivery O2 Flow Rate FiO2 07/18/20 09:49 116/74 07/18/20 08:35 98 07/18/20 08:00 Non-Rebreather 15.0 07/18/20 08:00 97.7 102 22 116/74 (88) 93 07/18/20 06:22 99.7 07/18/20 04:00 106 07/18/20 04:00 Non-Rebreather 15.0 07/18/20 04:00 100.8 112 22 128/79 (95) 92 07/18/20 00:00 89 07/18/20 00:00 96.4 92 22 124/79 (94) 95 07/18/20 00:00 Non-Rebreather 15.0 07/17/20 20:14 94 Non-Rebreather 15.0 100 07/17/20 20:00 74 07/17/20 20:00 98.8 75 22 103/63 (76) 95 07/17/20 20:00 Non-Rebreather 15.0 07/17/20 16:00 Non-Rebreather 15.0 07/17/20 16:00 98.1 83 20 106/66 (79) 94 07/17/20 16:00 85 07/17/20 12:00 Non-Rebreather 15.0 07/17/20 12:00 98.8 95 22 117/73 (88) 94 07/17/20 12:00 94 Intake and Output 07/17/20 07/18/20 19:00 07:00 Intake Total 801.106 ml 100 ml Balance 801.106 ml 100 ml Intake Oral 300 ml 100 ml IV Total 501.106 ml # Voids 2 1 # Bowel Movements 1 Laboratory Tests 07/18/20 04:40: Sodium Level 139, Potassium Level 4.4, Chloride Level 103, Carbon Dioxide Level 25, Anion Gap 11, Blood Urea Nitrogen 20H, Creatinine 0.8, Estimat Glomerular Filtration Rate > 60, Glucose Level 138H, Uric Acid 3.2, Calcium Level 8.8, Phosphorus Level 3.0, Magnesium Level 2.1, Total Bilirubin 1.0, Aspartate Amino Transf (AST/SGOT) 28, Alanine Aminotransferase (ALT/SGPT) 15, Alkaline P hosphatase 81, Total Protein 7.3, Albumin 2.1L, Globulin 5.2, Albumin/Globulin Ratio 0.4L 07/18/20 08:49: Vancomycin Level Trough 10.9 Height (Feet): 5 Height (Inches): 3.00 Weight (Pounds): 162 Assessment/Plan Status: stable Assessment/Plan: S, O: I am feeling more sob, seems in mild sob, no severe pain PHYSICAL EXAMINATION: HEAD AND NECK: Atraumatic and normocephalic. CHEST: Diffuse bronchial breathing sounds. HEART: S1 and S2. Regular rate and rhythm. ABDOMEN: Soft. No organomegaly. MUSCULOSKELETAL: No gross lateralized motor deficit. Meds: reviewed and reconciled in the chart ASSESSMENT: 1. COVID-19 pneumonia. 2. Hypoxemic respiratory failure. 3. Diabetes type 2. 4. Hyponatremia 5. GI and DVT prophylaxis. PLAN OF CARE: I left a VM for patient's brother in law, per her request. on 1334 hours on Jul 10 I spoke with patient's brother in law, I updated him about overall cnd of patient . Agreed with current management. given persistent high level of O2 requirement. I will repeat CXR No, interval imaging changes. notes from pulmonary reviewed given persistent high level of O2 requirement and new positive sputum culture; I will repeat CXR Gail Malcolm MD Jul 18, 2020 11:13
[2020-07-18 12:00] VITALS: BP 132/88
--- NOTE | 2020-07-18 12:14 | Nephrology Progress Note ---
Assessment/Plan Problem List: (1) Hyponatremia (2) Hypoxia (3) Pneumonitis (4) Acute respiratory failure due to COVID-19 (5) DMII (diabetes mellitus, type 2) (6) HTN (hypertension) Assessment Hyponatremia, improved with saline infusion COVID-19 infection Pneumonia, acute respiratory failure, hypoxia Diabetes mellitus Hypertension Plan July 18: Labs reviewed. Stable renal parameters and electrolytes. Continue per consultants. July 17: No labs drawn today. Remains stable from renal standpoint today. July 16: No labs drawn today. Continue per consultants. Stable from renal standpoint of view. July 15: Labs reviewed. Renal parameters stable. July 14: No labs from today. Continue per current management. Check labs tomorrow. July 13: No labs drawn today. Stable from renal standpoint of view. July 12: Today's labs pending. Medication list reviewed. Continue per current management and consultants. July 11: Labs reviewed. Renal parameters stable. July 10: Labs reviewed. Renal parameters electrolytes stable. Continue per consultants. July 09: Labs reviewed. Renal parameters and electrolytes stable. Continue per ID and pulmonary. Subjective ROS Limited/Unobtainable: No Constitutional: Reports: malaise, weakness Objective Objective Last 24 Hour Vital Signs Date Time Temp Pulse Resp B/P (MAP) Pulse Ox O2 Delivery O2 Flow Rate FiO2 07/18/20 12:00 98.1 96 18 132/88 (103) 94 07/18/20 09:49 116/74 07/18/20 08:35 98 07/18/20 08:00 Non-Rebreather 15.0 07/18/20 08:00 97.7 102 22 116/74 (88) 93 07/18/20 06:22 99.7 07/18/20 04:00 106 07/18/20 04:00 Non-Rebreather 15.0 07/18/20 04:00 100.8 112 22 128/79 (95) 92 07/18/20 00:00 89 07/18/20 00:00 96.4 92 22 124/79 (94) 95 07/18/20 00:00 Non-Rebreather 15.0 07/17/20 20:14 94 Non-Rebreather 15.0 100 07/17/20 20:00 74 07/17/20 20:00 98.8 75 22 103/63 (76) 95 07/17/20 20:00 Non-Rebreather 15.0 07/17/20 16:00 Non-Rebreather 15.0 07/17/20 16:00 98.1 83 20 106/66 (79) 94 07/17/20 16:00 85 Intake and Output 07/17/20 07/18/20 19:00 07:00 Intake Total 801.106 ml 100 ml Balance 801.106 ml 100 ml Intake Oral 300 ml 100 ml IV Total 501.106 ml # Voids 2 1 # Bowel Movements 1 Current Medications Medications (Trade) Dose Ordered Sig/Marian Route PRN Reason Start Time Stop Time Status Last Admin Dose Admin Acetaminophen (Tylenol) 650 mg Q6H PRN ORAL For Pain 07/07/20 15:45 08/06/20 15:44 07/16/20 09:45 Acetaminophen (Tylenol) 650 mg Q6H PRN ORAL FEVER 07/07/20 16:15 08/06/20 16:14 07/18/20 05:48 Cefepime HCl 2 gm/ Dextrose 55 ml @ 110 mls/hr EVERY 12 HOURS IVPB 07/16/20 22:00 07/23/20 21:59 07/18/20 09:49 Dextrose (Dextrose 50%) 25 ml Q30M PRN IV Hypoglycemia 07/07/20 15:45 10/05/20 15:44 Dextrose (Dextrose 50%) 50 ml Q30M PRN IV Hypoglycemia 07/07/20 15:45 10/05/20 15:44 Docusate Sodium (Colace) 100 mg EVERY 12 HOURS ORAL 07/12/20 21:00 08/08/20 08:59 07/18/20 09:49 Enoxaparin Sodium (Lovenox) 80 mg DAILY SUBQ 07/08/20 09:00 10/06/20 08:59 07/18/20 09:51 Famotidine (Pepcid) 20 mg BID ORAL 07/09/20 09:00 10/07/20 08:59 07/18/20 09:51 Insulin Aspart (NovoLOG) BEFORE MEALS AND HS SUBQ 07/07/20 16:30 10/05/20 16:29 07/17/20 16:39 Losartan Potassium (Cozaar) 25 mg DAILY ORAL 07/11/20 11:00 08/10/20 10:59 07/18/20 09:49 Vancomycin HCl 250 ml @ 166.667 mls/hr Q12H IVPB 07/18/20 22:00 07/23/20 21:59 Vancomycin HCl (Vanco pharmacy to dose) 1 ea DAILY PRN MISC Per rx protocol 07/16/20 20:45 08/15/20 20:44 Laboratory Tests 07/18/20 04:40: Sodium Level 139, Potassium Level 4.4, Chloride Level 103, Carbon Dioxide Level 25, Anion Gap 11, Blood Urea Nitrogen 20H, Creatinine 0.8, Estimat Glomerular Filtration Rate > 60, Glucose Level 138H, Uric Acid 3.2, Calcium Level 8.8, Phosphorus Level 3.0, Magnesium Level 2.1, Total Bilirubin 1.0, Aspartate Amino Transf (AST/SGOT) 28, Alanine Aminotransferase (ALT/SGPT) 15, Alkaline Phospha tase 81, Total Protein 7.3, Albumin 2.1L, Globulin 5.2, Albumin/Globulin Ratio 0.4L 07/18/20 08:49: Vancomycin Level Trough 10.9 Height (Feet): 5 Height (Inches): 3.00 Weight (Pounds): 162 General Appearance: no apparent distress Objective No change Anurag Bridges MD Jul 18, 2020 12:14
--- NOTE | 2020-07-18 14:03 | NUR ---
RADIOLOGY DEPT., CHEST X-RAY DONE.-P.DYE
--- NOTE | 2020-07-18 14:55 | Diagnostic Imaging Report ---
Indication: Shortness of breath Technique: One view of the chest Comparison: 07/13/2020 Findings: Extensive bilateral infiltrates appears somewhat worse, allowing for differences in exposure technique. The pleural spaces are grossly clear. The heart size is normal Impression: Increased bilateral infiltrates since previous study
[2020-07-18 16:00] VITALS: BP 147/86
--- NOTE | 2020-07-18 16:39 | NUR ---
Received pt this AM from Jacki GAINES. Pt was resting in bed. Accessory muscle use. maintaining O2 saturations at 93%. At 1000 attempted to prone pt but unable to tolerate. Pt placed on side with O2 saturations at 95%. At 1330 pt began to desaturate. Another RN went in and turned up oxygen on nonbreather. Pt O2 was still in the low 80's oxygen flushed up and pt was still at 83%. Respiratory came to bedside. Pt refusing Bipap. TIO Howard called to bedside and pt assessed. Pt 01% at this time with oxygen flushed. Pt still with accessory use. Will continue to monitor closely.
--- NOTE | 2020-07-18 16:40 | NUR ---
RESPIRATORY NOTE: Called in by nurse to se this PT due to desaturation of as low as 80% on NRB mask and increased WOB.. Suggested to patient to go on BIPAP but patient refused. TIO Howard is present. RN aware. Will continue to monitor.
[2020-07-18] MEDS ORDERED: Benzonatate 100mg Perles ORAL PRN (18:30)
[2020-07-18] MEDS: Acetaminophen 650 MG SUPP RECTAL PRN (18:40)
--- NOTE | 2020-07-18 19:00 | NUR ---
NURSE NOTES: Received patient from LIANA Faith. patient is awake in bed on NRB 15L, 80% O2 saturation, tachypneic. 140 HR on the monitor. patient refusing bipap at this time. call light within easy reach. bed to lowest position and locked. side rails up x2. will monitor closely.
--- NOTE | 2020-07-18 19:45 | NUR ---
NURSE NOTES: Spoke with patient regarding importance of being on Bipap. patient agreed to be on bipap. RT came at bedside and placed patient on Bipap. O2 saturation 87%. will monitor closely.
[2020-07-18 20:00] VITALS: BP 124/76
--- NOTE | 2020-07-18 20:51 | Infectious Diseases Prog Note ---
Assessment/Plan Problems: (1) Bilateral pneumonia Assessment & Plan: with worsening infiltrates and sputum culture grew gram negative rods, will upgrade antibiotics to zosyn since still febrile while on cefepime pending final sputum culture , monitor blood culture , aspiration precaution (2) Fever Assessment & Plan: suspect due to pneumonia with gram negative rods, will upgrade antibiotics to zosyn , no evidence of sepsis with negative blood culture x 2 , await final sputum culture. (3) COVID-19 virus infection Assessment & Plan: complicated with pneumonia and hypoxemia, S/P remdisvir for 5 days, and decadrone for 10 days , keep patient in enhanced droplet isolation, titrate oxygen to keep O2 sat more than 90%, RECOMMEND PRONE POSITION . (4) Pneumonia due to COVID-19 virus Assessment & Plan: superimposed with bacterial pneumonia with worsening B/L lungs infiltrates , and sputum culture grwoing gram negative rods , will upgrade antibiotics to zosyn pending final sputum culture , continue suctioning as needed , monitor chest x-ray. (5) Acute respiratory failure due to COVID-19 Assessment & Plan: suspect due to pneumonitis from COVID 19 super imposed with bacterial infection due to gram negative rods , continue respiratory support with BIPAP to keep sat more than 90 % , close monitor of ABG and chest x-ray. may benefit from PRONE POSITION Subjective Constitutional: Reports: fever HEENT: Reports: no symptoms Respiratory: Reports: shortness of breath, productive cough Breasts: Reports: no symptoms Cardiovascular: Reports: no symptoms Gastrointestinal/Abdominal: Reports: no symptoms Genitourinary: Reports: no symptoms Neurologic: Reports: no symptoms Skin: Reports: no symptoms Allergies: Coded Allergies: No Known Allergies (Unverified , 07/07/20) she continue to be hypoxemic and SOB on high flow oxygen via NRB mask with FIO2 of 100 % and was tachypnec and tachycardic , was started on BIPAP , SPIKED FEVER of 102 TODAY Objective Last 24 Hour Vital Signs Date Time Temp Pulse Resp B/P (MAP) Pulse Ox O2 Delivery O2 Flow Rate FiO2 07/18/20 20:00 100.8 145 32 124/76 (92) 86 07/18/20 20:00 112 07/18/20 20:00 Non-Rebreather 15.0 07/18/20 19:46 144 54 85 100 07/18/20 19:32 90 Non-Rebreather 15.0 100 07/18/20 19:10 100.0 07/18/20 16:00 100 07/18/20 16:00 Non-Rebreather 15.0 07/18/20 16:00 102.0 26 147/86 (106) 88 07/18/20 12:20 116 07/18/20 12:00 98.1 96 18 132/88 (103) 94 07/18/20 12:00 Non-Rebreather 15.0 07/18/20 09:49 116/74 07/18/20 08:58 94 Non-Rebreather 15.0 100 07/18/20 08:35 98 07/18/20 08:00 Non-Rebreather 15.0 07/18/20 08:00 97.7 102 22 116/74 (88) 93 07/18/20 06:22 99.7 07/18/20 04:00 106 07/18/20 04:00 Non-Rebreather 15.0 07/18/20 04:00 100.8 112 22 128/79 (95) 92 07/18/20 00:00 89 07/18/20 00:00 96.4 92 22 124/79 (94) 95 07/18/20 00:00 Non-Rebreather 15.0 Height (Feet): 5 Height (Inches): 3.00 Weight (Pounds): 162 General Appearance: WD/WN, no acute distress HEENT: normocephalic, atraumatic, anicteric, mucous membranes moist, PERRL Respiratory/Chest: chest wall non-tender, no respiratory distress, no accessory muscle use, decreased breath sounds, crackles/rales Cardiovascular: normal peripheral pulses, normal rate, regular rhythm, no gallop/murmur, no JVD Abdomen: normal bowel sounds, soft, non tender, no organomegaly, non distended, no mass, no scars Genitourinary: normal external genitalia Extremities: no cyanosis, no clubbing Microbiology Date/Time Source Procedure Growth Status 07/16/20 21:30 Sputum Expectorated Gram Stain - Final Resulted 07/16/20 21:30 Sputum Culture - Preliminary Gram Negative Bacillus 1 Resulted 07/16/20 21:30 Blood Blood Culture - Preliminary NO GROWTH AFTER 24 HOURS Resulted 07/16/20 21:15 Blood Blood Culture - Preliminary NO GROWTH AFTER 24 HOURS Resulted Laboratory Tests Test 07/18/20 04:40 07/18/20 08:49 Sodium Level 139 MMOL/L (136-145) Potassium Level 4.4 MMOL/L (3.5-5.1) Chloride Level 103 MMOL/L (98-107) Carbon Dioxide Level 25 MMOL/L (21-32) Anion Gap 11 mmol/L (5-15) Blood Urea Nitrogen 20 mg/dL (7-18) H Creatinine 0.8 MG/DL (0.55-1.30) Estimat Glomerular Filtration Rate > 60 mL/min (>60) Glucose Level 138 MG/DL (74-106) H Uric Acid 3.2 MG/DL (2.6-7.2) Calcium Level 8.8 MG/DL (8.5-10.1) Phosphorus Level 3.0 MG/DL (2.5-4.9) Magnesium Level 2.1 MG/DL (1.8-2.4) Total Bilirubin 1.0 MG/DL (0.2-1.0) Aspartate Amino Transf (AST/SGOT) 28 U/L (15-37) Alanine Aminotransferase (ALT/SGPT) 15 U/L (12-78) Alkaline Phosphatase 81 U/L (46-116) Total Protein 7.3 G/DL (6.4-8.2) Albumin 2.1 G/DL (3.4-5.0) L Globulin 5.2 g/dL Albumin/Globulin Ratio 0.4 (1.0-2.7) L Vancomycin Level Trough 10.9 ug/mL (5.0-12.0) Current Medications Medications (Trade) Dose Ordered Sig/Marian Route PRN Reason Start Time Stop Time Status Last Admin Dose Admin Acetaminophen (Tylenol) 650 mg Q4H PRN RECTAL Temp >100.5 07/18/20 18:30 08/17/20 18:29 07/18/20 18:40 Acetaminophen (Tylenol) 650 mg Q6H PRN ORAL For Pain 07/07/20 15:45 08/06/20 15:44 07/16/20 09:45 Acetaminophen (Tylenol) 650 mg Q6H PRN ORAL FEVER 07/07/20 16:15 08/06/20 16:14 07/18/20 05:48 Benzonatate (Tessalon Perles) 100 mg TIDPRN PRN ORAL For Cough 07/18/20 18:30 08/17/20 18:29 Cefepime HCl 2 gm/ Dextrose 55 ml @ 110 mls/hr EVERY 12 HOURS IVPB 07/16/20 22:00 07/23/20 21:59 07/18/20 09:49 Dextrose (Dextrose 50%) 25 ml Q30M PRN IV Hypoglycemia 07/07/20 15:45 10/05/20 15:44 Dextrose (Dextrose 50%) 50 ml Q30M PRN IV Hypoglycemia 07/07/20 15:45 10/05/20 15:44 Docusate Sodium (Colace) 100 mg EVERY 12 HOURS ORAL 07/12/20 21:00 08/08/20 08:59 07/18/20 09:49 Enoxaparin Sodium (Lovenox) 80 mg DAILY SUBQ 07/08/20 09:00 10/06/20 08:59 07/18/20 09:51 Famotidine (Pepcid) 20 mg BID ORAL 07/09/20 09:00 10/07/20 08:59 07/18/20 09:51 Insulin Aspart (NovoLOG) BEFORE MEALS AND HS SUBQ 07/07/20 16:30 10/05/20 16:29 07/17/20 16:39 Losartan Potassium (Cozaar) 25 mg DAILY ORAL 07/11/20 11:00 08/10/20 10:59 07/18/20 09:49 Methylprednisolone Sodium Succinate (Solu-MEDROL) 20 mg EVERY 8 HOURS IVP 07/18/20 22:00 07/28/20 21:59 Vancomycin HCl 250 ml @ 166.667 mls/hr Q12H IVPB 07/18/20 22:00 07/23/20 21:59 Vancomycin HCl ([facility] pharmacy to dose) 1 ea DAILY PRN MISC Per rx protocol 07/16/20 20:45 08/15/20 20:44 Nataliia Velazquez M.D. Jul 18, 2020 20:51
[2020-07-18 21:50] LABS: HEMATOCRIT 35.9 % (37.0-47.0); HEMOGLOBIN 11.5 G/DL (12.0-16.0); MEAN CORPUSCULAR VOLUME 89 FL (80-99); PLATELET COUNT 215 K/UL (150-450); RED BLOOD COUNT 4.02 M/UL (4.20-5.40); RED CELL DISTRIBUTION WIDTH 12.9 % (11.6-14.8); WHITE BLOOD COUNT 19.5 K/UL (4.8-10.8)
[2020-07-18] MEDS: Solu-MEDROL 40mg Inj IVP SCH (21:55)
[2020-07-18] MEDS: Piperacillin/Tazobactam 4.5 GM in NS 110 ML IVPB SCH (21:55)
[2020-07-18] MEDS ORDERED: Vancomycin 1.25gm/250ml Premix IVPB SCH (22:00)
--- NOTE | 2020-07-18 22:23 | NUR ---
NURSE NOTES: contacted Dr. Edward regarding patient's current Bipap settings 14/8 FiO2 100%. Also asked for fluids as patient may not be able to tolerate anything PO. waiting for call back.
[2020-07-19] VITALS: BP 136/81
--- NOTE | 2020-07-19 01:30 | NUR ---
NURSE NOTES: Noted patient O2 saturation 85%. repositioned and sat upright. ABG been ordered. will notify RT to carry out order
--- NOTE | 2020-07-19 01:57 | NUR ---
NURSE NOTES: ABG result PH 7.38, CO2 39.1, PO2 57.6, HCO3 22.7, O2 Saturation 86.3. current Bipap settings 14/8 FiO2 100%. contacted Dr. Edward, aware and acknowledged. changed Bipap settings to 18/10. will carry out orders and notify RT
[2020-07-19 04:00] VITALS: BP 151/79
[2020-07-19] MEDS: Solu-MEDROL 40mg Inj IVP SCH ×3 (05:43→21:56)
[2020-07-19] MEDS: Piperacillin/Tazobactam 4.5 GM in NS 110 ML IVPB SCH ×3 (05:44→21:56)
[2020-07-19] MEDS: NovoLOG Insulin Flexpen SUBQ SCH ×4 (06:05→20:57)
--- NOTE | 2020-07-19 06:59 | NUR ---
NURSE HAND-OFF REPORT: Important Events on Shift: patient on bipap Patient Status: FULL CODE Diet: mechanical soft Pending Orders: [] Pending Results/Labs:[] Pending MD notification:[] Latest Vital Signs: Temperature 99.1 , Pulse 100 , B/P 151 /79 , Respiratory Rate 38 , O2 SAT 92 , Nasal Cannula, O2 Flow Rate 15.0 . Vital Sign Comment: stable EKG Rhythm: Sinus Tachycardia Rhythm change?: N MD Notified?: - MD Response: Latest Plaza Fall Score: 30 Fall Risk: Medium Risk Safety Measures: Call light Within Reach, Bed Alarm Zone 3, Side Rails Side Rails x2, Bed position Low and Locked. Fall Precautions: Yellow Socks Report given to LIANA Faith.
[2020-07-19 08:00] VITALS: BP 122/84
[2020-07-19] MEDS: Losartan 25mg tab ORAL SCH (09:00)
[2020-07-19] MEDS: Docusate 100mg cap ORAL SCH ×2 (09:00→20:37)
--- NOTE | 2020-07-19 09:07 | Cardiology Progress Note ---
Assessment/Plan Assessment/Plan 1. COVID-19 viral PNA on remdesivir and dexamethasone WBCs trending upward 2. Respiratory failure 2/2 acute PNA O2 dependent 3. HFpEF acute on chronic diastolic HF with preserved EF EF 65%, compensated BNP negative 4. DMII 5. GERD Echo negative for acute decompensated HF. Diuresis as needed with IV Lasix. SBP and HR controlled. Subjective Subjective In isolation, no distress Objective Last 24 Hour Vital Signs Date Time Temp Pulse Resp B/P (MAP) Pulse Ox O2 Delivery O2 Flow Rate FiO2 07/19/20 04:00 99.1 100 38 151/79 (103) 92 07/19/20 04:00 109 07/19/20 04:00 Non-Rebreather 07/19/20 03:30 111 34 92 100 07/19/20 02:00 100 07/19/20 00:00 Non-Rebreather 15.0 07/19/20 00:00 121 07/19/20 00:00 99.5 131 56 136/81 (99) 86 07/18/20 23:08 123 47 90 100 07/18/20 20:00 100.8 145 32 124/76 (92) 86 07/18/20 20:00 100 07/18/20 20:00 112 07/18/20 20:00 Non-Rebreather 15.0 07/18/20 19:46 144 54 85 100 07/18/20 19:32 90 Non-Rebreather 15.0 100 07/18/20 19:10 100.0 07/18/20 16:00 100 07/18/20 16:00 Non-Rebreather 15.0 07/18/20 16:00 102.0 26 147/86 (106) 88 07/18/20 12:20 116 07/18/20 12:00 98.1 96 18 132/88 (103) 94 07/18/20 12:00 Non-Rebreather 15.0 07/18/20 09:49 116/74 Intake and Output 07/18/20 07/19/20 19:00 07:00 # Voids 1 1 # Bowel Movements 2 Laboratory Tests Test 07/18/20 21:20 07/19/20 01:42 07/19/20 08:33 White Blood Count 19.5 K/UL (4.8-10.8) H Red Blood Count 4.02 M/UL (4.20-5.40) L Hemoglobin 11.5 G/DL (12.0-16.0) L Hematocrit 35.9 % (37.0-47.0) L Mean Corpuscular Volume 89 FL (80-99) Mean Corpuscular Hemoglobin 28.6 PG (27.0-31.0) Mean Corpuscular Hemoglobin Concent 32.0 G/DL (32.0-36.0) Red Cell Distribution Width 12.9 % (11.6-14.8) Platelet Count 215 K/UL (150-450) Mean Platelet Volume 7.8 FL (6.5-10.1) Neutrophils (%) (Auto) % (45.0-75.0) Lymphocytes (%) (Auto) % (20.0-45.0) Monocytes (%) (Auto) % (1.0-10.0) Eosinophils (%) (Auto) % (0.0-3.0) Basophils (%) (Auto) % (0.0-2.0) Differential Total Cells Counted 100 Neutrophils % (Manual) 92 % (45-75) H Lymphocytes % (Manual) 5 % (20-45) L Monocytes % (Manual) 3 % (1-10) Eosinophils % (Manual) 0 % (0-3) Basophils % (Manual) 0 % (0-2) Band Neutrophils 0 % (0-8) Toxic Granulation 2+ Platelet Estimate Adequate Platelet Morphology Normal Arterial Blood pH 7.382 (7.350-7.450) 7.445 (7.350-7.450) Arterial Blood Partial Pressure CO2 39.1 mmHg (35.0-45.0) 35.9 mmHg (35.0-45.0) Arterial Blood Partial Pressure O2 57.6 mmHg (75.0-100.0) L 56.6 mmHg (75.0-100.0) L Arterial Blood HCO3 22.7 mmol/L (22.0-26.0) 24.1 mmol/L (22.0-26.0) Arterial Blood Oxygen Saturation 86.3 % (95-100) *L 87.0 % (95-100) *L Arterial Blood Base Excess -2.1 (-2-2) L 0.4 (-2-2) Timbo Test Positive Positive Microbiology Date/Time Source Procedure Growth Status 07/16/20 21:30 Sputum Expectorated Gram Stain - Final Resulted 07/16/20 21:30 Sputum Culture - Preliminary Gram Negative Bacillus 1 Resulted 07/16/20 21:30 Blood Blood Culture - Preliminary NO GROWTH AFTER 24 HOURS Resulted 07/16/20 21:15 Blood Blood Culture - Preliminary NO GROWTH AFTER 24 HOURS Resulted Blanca Lobato PA-C Jul 19, 2020 09:07
--- NOTE | 2020-07-19 09:35 | NUR ---
NURSE NOTES: Notified Dr. Edward Thru his office left message ,CAMACHO today-O2 saturation 87,on BIPAP Addendum: 07/19/20 at 0957 by Gifty Fuentes RN Patient saturation 89-90 %
[2020-07-19] MEDS: Enoxaparin 80mg Inj SUBQ SCH (10:10)
[2020-07-19 12:00] VITALS: BP 133/91
--- NOTE | 2020-07-19 12:05 | NUR ---
CASE MANAGEMENT:REVIEW 07/19/20 SI: COVID PNEUMONIA 99.5 106 41 122/84 90% ON 15L/100%/NRB IS: IV ZOSYN Q8HRS IV SOLUMEDROL Q8HRS LOVENOX SQ QD : STEP DOWN UNIT DCP: FROM HOME PLAN: MONITOR OXYGEN REQUIREMENTS CONTINUE IV ANTIBIOTIC
--- NOTE | 2020-07-19 14:24 | Nephrology Progress Note ---
Assessment/Plan Problem List: (1) Hyponatremia (2) Hypoxia (3) Pneumonitis (4) Acute respiratory failure due to COVID-19 (5) DMII (diabetes mellitus, type 2) (6) HTN (hypertension) Assessment Hyponatremia, improved with saline infusion COVID-19 infection Pneumonia, acute respiratory failure, hypoxia Diabetes mellitus Hypertension Plan July 19: Pulmonary status remains unstable. Stable from renal standpoint of view. July 18: Labs reviewed. Stable renal parameters and electrolytes. Continue per consultants. July 17: No labs drawn today. Remains stable from renal standpoint today. July 16: No labs drawn today. Continue per consultants. Stable from renal standpoint of view. July 15: Labs reviewed. Renal parameters stable. July 14: No labs from today. Continue per current management. Check labs tomorrow. July 13: No labs drawn today. Stable from renal standpoint of view. July 12: Today's labs pending. Medication list reviewed. Continue per current management and consultants. July 11: Labs reviewed. Renal parameters stable. July 10: Labs reviewed. Renal parameters electrolytes stable. Continue per consultants. July 09: Labs reviewed. Renal parameters and electrolytes stable. Continue per ID and pulmonary. Subjective ROS Limited/Unobtainable: No Constitutional: Reports: malaise Objective Objective Last 24 Hour Vital Signs Date Time Temp Pulse Resp B/P (MAP) Pulse Ox O2 Delivery O2 Flow Rate FiO2 07/19/20 12:00 Non-Rebreather 07/19/20 12:00 100 07/19/20 12:00 98.1 107 43 133/91 (105) 90 07/19/20 11:51 113 07/19/20 10:56 117 33 94 100 07/19/20 09:05 92 Bi-Pap 100 07/19/20 08:00 99.3 105 41 122/84 (97) 90 07/19/20 08:00 106 07/19/20 08:00 100 07/19/20 08:00 Non-Rebreather 07/19/20 07:39 106 07/19/20 07:17 104 42 92 100 07/19/20 04:00 99.1 100 38 151/79 (103) 92 07/19/20 04:00 109 07/19/20 04:00 Non-Rebreather 07/19/20 03:30 111 34 92 100 07/19/20 02:00 100 07/19/20 00:00 Non-Rebreather 15.0 07/19/20 00:00 121 07/19/20 00:00 99.5 131 56 136/81 (99) 86 07/18/20 23:08 123 47 90 100 07/18/20 20:00 100.8 145 32 124/76 (92) 86 07/18/20 20:00 100 07/18/20 20:00 112 07/18/20 20:00 Non-Rebreather 15.0 07/18/20 19:46 144 54 85 100 07/18/20 19:32 90 Non-Rebreather 15.0 100 07/18/20 19:10 100.0 07/18/20 16:00 100 07/18/20 16:00 Non-Rebreather 15.0 07/18/20 16:00 102.0 26 147/86 (106) 88 Intake and Output 07/18/20 07/19/20 19:00 07:00 # Voids 1 1 # Bowel Movements 2 Current Medications Medications (Trade) Dose Ordered Sig/Marian Route PRN Reason Start Time Stop Time Status Last Admin Dose Admin Acetaminophen (Tylenol) 650 mg Q4H PRN RECTAL Temp >100.5 07/18/20 18:30 08/17/20 18:29 07/18/20 18:40 Acetaminophen (Tylenol) 650 mg Q6H PRN ORAL For Pain 07/07/20 15:45 08/06/20 15:44 07/16/20 09:45 Acetaminophen (Tylenol) 650 mg Q6H PRN ORAL FEVER 07/07/20 16:15 08/06/20 16:14 07/18/20 05:48 Benzonatate (Tessalon Perles) 100 mg TIDPRN PRN ORAL For Cough 07/18/20 18:30 08/17/20 18:29 Dextrose (Dextrose 50%) 25 ml Q30M PRN IV Hypoglycemia 07/07/20 15:45 10/05/20 15:44 Dextrose (Dextrose 50%) 50 ml Q30M PRN IV Hypoglycemia 07/07/20 15:45 10/05/20 15:44 Docusate Sodium (Colace) 100 mg EVERY 12 HOURS ORAL 07/12/20 21:00 08/08/20 08:59 2/16/21 09:49 Enoxaparin Sodium (Lovenox) 80 mg DAILY SUBQ 07/08/20 09:00 10/06/20 08:59 07/19/20 10:10 Famotidine (Pepcid) 20 mg BID ORAL 07/09/20 09:00 10/07/20 08:59 07/18/20 09:51 Insulin Aspart (NovoLOG) BEFORE MEALS AND HS SUBQ 07/07/20 16:30 10/05/20 16:29 07/19/20 12:44 Losartan Potassium (Cozaar) 25 mg DAILY ORAL 07/11/20 11:00 08/10/20 10:59 07/18/20 09:49 Methylprednisolone Sodium Succinate (Solu-MEDROL) 20 mg EVERY 8 HOURS IVP 07/18/20 22:00 07/28/20 21:59 07/19/20 05:43 Piperacillin Sod/ Tazobactam Sod 4.5 gm/Sodium Chloride 110 ml @ 27.5 mls/hr EVERY 8 HOURS IVPB 07/18/20 22:00 07/25/20 21:00 07/19/20 05:44 Laboratory Tests 07/18/20 21:20: White Blood Count 19.5H, Red Blood Count 4.02L, Hemoglobin 11.5L, Hematocrit 35.9L, Mean Corpuscular Volume 89, Mean Corpuscular Hemoglobin 28.6, Mean Corpuscular Hemoglobin Concent 32.0, Red Cell Distribution Width 12.9, Platelet Count 215, Mean Platelet Volume 7.8, Neutrophils (%) (Auto) , Lymphocytes (%) (Auto) , Monocytes (%) (Auto) , Eosinophils (%) (Auto) , Basophils (%) (Auto) , Differential Total Cells Counted 100, Neutrophils % (Manual) 92H, Lymphocytes % (Manual) 5L, Monocytes % (Manual) 3, Eosinophils % (Manual) 0, Basophils % (Manual) 0, Band Neutrophils 0, Toxic Granulation 2+, Platelet Estimate Adequate, Platelet Morphology Normal 07/19/20 01:42: Arterial Blood pH 7.382, Arterial Blood Partial Pressure CO2 39.1, Arterial Blood Partial Pressure O2 57.6L, Arterial Blood HCO3 22.7, Arterial Blood Oxygen Saturation 86.3*L, Arterial Blood Base Excess -2.1L, Timbo Test Positive 2/17/21 08:33: Arterial Blood pH 7.445, Arterial Blood Partial Pressure CO2 35.9, Arterial Blood Partial Pressure O2 56.6L, Arterial Blood HCO3 24.1, Arterial Blood Oxygen Saturation 87.0*L, Arterial Blood Base Excess 0.4, Timbo Test Positive Height (Feet): 5 Height (Inches): 3.00 Weight (Pounds): 162 General Appearance: mild distress EENT: other - On nonrebreather 100% Cardiovascular: tachycardia Respiratory/Chest: decreased breath sounds Abdomen: distended Objective No change Anurag Bridges MD Jul 19, 2020 14:24
--- NOTE | 2020-07-19 15:20 | Pulmonology Progress Note ---
Subjective ROS Limited/Unobtainable: No Interval Events: desaturated and started on BiPAP last night Constitutional: Reports: fever HEENT: Repors: no symptoms Respiratory: Reports: shortness of breath Gastrointestinal/Abdominal: Reports: no symptoms Psychiatric: Reports: no symptoms Skin: Reports: no symptoms Musculoskeletal: Reports: no symptoms Allergies: Coded Allergies: No Known Allergies (Unverified , 07/07/20) Objective Last 24 Hour Vital Signs Date Time Temp Pulse Resp B/P (MAP) Pulse Ox O2 Delivery O2 Flow Rate FiO2 07/19/20 12:00 Non-Rebreather 07/19/20 12:00 100 07/19/20 12:00 98.1 107 43 133/91 (105) 90 07/19/20 11:51 113 07/19/20 10:56 117 33 94 100 07/19/20 09:05 92 Bi-Pap 100 07/19/20 08:00 99.3 105 41 122/84 (97) 90 07/19/20 08:00 106 07/19/20 08:00 100 07/19/20 08:00 Non-Rebreather 07/19/20 07:39 106 07/19/20 07:17 104 42 92 100 07/19/20 04:00 99.1 100 38 151/79 (103) 92 07/19/20 04:00 109 07/19/20 04:00 Non-Rebreather 07/19/20 03:30 111 34 92 100 07/19/20 02:00 100 07/19/20 00:00 Non-Rebreather 15.0 07/19/20 00:00 121 07/19/20 00:00 99.5 131 56 136/81 (99) 86 07/18/20 23:08 123 47 90 100 07/18/20 20:00 100.8 145 32 124/76 (92) 86 07/18/20 20:00 100 07/18/20 20:00 112 07/18/20 20:00 Non-Rebreather 15.0 07/18/20 19:46 144 54 85 100 07/18/20 19:32 90 Non-Rebreather 15.0 100 07/18/20 19:10 100.0 07/18/20 16:00 100 07/18/20 16:00 Non-Rebreather 15.0 07/18/20 16:00 102.0 26 147/86 (106) 88 Intake and Output 07/18/20 07/19/20 19:00 07:00 # Voids 1 1 # Bowel Movements 2 General Appearance: no acute distress HEENT: normocephalic Respiratory: decreased breath sounds Cardiovascular: normal peripheral pulses Abdomen: normal bowel sounds Microbiology Date/Time Source Procedure Growth Status 07/16/20 21:30 Sputum Expectorated Gram Stain - Final Complete 07/16/20 21:30 Sputum Culture - Final Pseudomonas Aeruginosa Cony Albicans Usual Respiratory Lakisha Complete 07/16/20 21:30 Blood Blood Culture - Preliminary NO GROWTH AFTER 48 HOURS Resulted 07/16/20 21:15 Blood Blood Culture - Preliminary NO GROWTH AFTER 48 HOURS Resulted Laboratory Tests 07/18/20 21:20: White Blood Count 19.5H, Red Blood Count 4.02L, Hemoglobin 11.5L, Hematocrit 35.9L, Mean Corpuscular Volume 89, Mean Corpuscular Hemoglobin 28.6, Mean Corpuscular Hemoglobin Concent 32.0, Red Cell Distribution Width 12.9, Platelet Count 215, Mean Platelet Volume 7.8, Neutrophils (%) (Auto) , Lymphocytes (%) (Auto) , Monocytes (%) (Auto) , Eosinophils (%) (Auto) , Basophils (%) (Auto) , Differential Total Cells Counted 100, Neutrophils % (Manual) 92H, Lymphocytes % (Manual) 5L, Monocytes % (Manual) 3, Eosinophils % (Manual) 0, Basophils % (Man ual) 0, Band Neutrophils 0, Toxic Granulation 2+, Platelet Estimate Adequate, Platelet Morphology Normal 07/19/20 01:42: Arterial Blood pH 7.382, Arterial Blood Partial Pressure CO2 39.1, Arterial Blood Partial Pressure O2 57.6L, Arterial Blood HCO3 22.7, Arterial Blood Oxygen Saturation 86.3*L, Arterial Blood Base Excess -2.1L, Timbo Test Positive 07/19/20 08:33: Arterial Blood pH 7.445, Arterial Blood Partial Pressure CO2 35.9, Arterial Blood Partial Pressure O2 56.6L, Arterial Blood HCO3 24.1, Arterial Blood Oxygen Saturation 87.0*L, Arterial Blood Base Excess 0.4, Timbo Test Positive Current Medications Medications (Trade) Dose Ordered Sig/Marian Route PRN Reason Start Time Stop Time Status Last Admin Dose Admin Acetaminophen (Tylenol) 650 mg Q4H PRN RECTAL Temp >100.5 07/18/20 18:30 08/17/20 18:29 07/18/20 18:40 Acetaminophen (Tylenol) 650 mg Q6H PRN ORAL For Pain 07/07/20 15:45 08/06/20 15:44 07/16/20 09:45 Acetaminophen (Tylenol) 650 mg Q6H PRN ORAL FEVER 07/07/20 16:15 08/06/20 16:14 07/18/20 05:48 Benzonatate (Tessalon Perles) 100 mg TIDPRN PRN ORAL For Cough 07/18/20 18:30 08/17/20 18:29 Dextrose (Dextrose 50%) 25 ml Q30M PRN IV Hypoglycemia 07/07/20 15:45 10/05/20 15:44 Dextrose (Dextrose 50%) 50 ml Q30M PRN IV Hypoglycemia 07/07/20 15:45 10/05/20 15:44 Docusate Sodium (Colace) 100 mg EVERY 12 HOURS ORAL 07/12/20 21:00 08/08/20 08:59 07/18/20 09:49 Enoxaparin Sodium (Lovenox) 80 mg DAILY SUBQ 07/08/20 09:00 10/06/20 08:59 07/19/20 10:10 Famotidine (Pepcid) 20 mg BID ORAL 07/09/20 09:00 10/07/20 08:59 07/18/20 09:51 Insulin Aspart (NovoLOG) BEFORE MEALS AND HS SUBQ 07/07/20 16:30 10/05/20 16:29 07/19/20 12:44 Losartan Potassium (Cozaar) 25 mg DAILY ORAL 07/11/20 11:00 08/10/20 10:59 07/18/20 09:49 Methylprednisolone Sodium Succinate (Solu-MEDROL) 20 mg EVERY 8 HOURS IVP 07/18/20 22:00 07/28/20 21:59 07/19/20 14:35 Piperacillin Sod/ Tazobactam Sod 4.5 gm/Sodium Chloride 110 ml @ 27.5 mls/hr EVERY 8 HOURS IVPB 07/18/20 22:00 07/25/20 21:00 07/19/20 14:35 Assessment/Plan Assessment/Plan 1. COVID-19 pneumonia. - COVID-19 PCR positive (07/07) -> continue isolation due to fever - s/p remdexsivir - s/p azithromycin - CXR (07/13) no significant change 2. Hypoxemic respiratory distress - s/p decadron (07/08-07/17) - now on Solu-Medrol - ABG better - Now on BiPAP 17/01, 100% FiO2 - Encourage proning 3. Hypertension. 4. Diabetes mellitus. 5. DVT ppx - on Lovenox 6. Sputum Cx shows pseudomonas and cony - on Abx Discussed with bedside RN. The care for this patient was discussed with my supervising physician Time spent for this case was approximately 31 minutes Milton Howard Jul 19, 2020 15:20 Vu Edward MD Jul 20, 2020 09:44
[2020-07-19 16:00] VITALS: BP 141/87
[2020-07-19] MEDS ORDERED: D5NS 1,000 ML IV SCH (16:00)
--- NOTE | 2020-07-19 16:18 | NUR ---
0715: Received report from LIANA Ibrahim. Pt received on Bipap. Pt remains tachypneic and restless. Pt O2 saturations at 90%. Pt easily to arouse but extremely fatigued. 1030: ABG was obtained and results were given to charge who paged Dr. Edward. 1330: Spoke with TIO Howard about pt. New order received and placed. Called Dr. Ramirez regarding fluids and po meds and was directed to follow up with nephrology and cardiology. 1600: Spoke with Dr. Corley and new orders were received. Pt continues to be fatigued and arousing only when spoken to. Pt on Bipap 18/8 on 100%. Needs addressed. Will continue to monitor closely.
--- NOTE | 2020-07-19 19:35 | NUR ---
NURSE NOTES: Patient received from LIANA Faith. Patient is awake, alert and oriented x 4. Patient is noted to be on bipap at 100% Fio2. Patient appears to be tachypneic satting at 92%. Patient has no complaints as of the moment. Patient has a 20 gauge IV on her right hand running D5NS @ 50 ml/hr. Bed is in the lowest position and locked, call light within reach. Will continue to monitor.
[2020-07-19 20:00] VITALS: BP 137/88
--- NOTE | 2020-07-19 20:45 | Infectious Diseases Prog Note ---
Assessment/Plan Problems: (1) Bilateral pneumonia Assessment & Plan: due to Pseudomonas aeruginosa with worsening infiltrates and positive sputum culture , continue zosyn for three weeks treatment , monitor blood culture , aspiration precaution (2) Fever Assessment & Plan: suspect due to pneumonia with pseudomonas aeruginosa , now on zosyn resolved , no evidence of sepsis with negative blood culture x 2 (3) COVID-19 virus infection Assessment & Plan: complicated with pneumonia and hypoxemia, S/P remdisvir for 5 days, and decadrone for 10 days , keep patient in enhanced droplet isolation, titrate oxygen to keep O2 sat more than 90%, RECOMMEND PRONE POSITION . (4) Pneumonia due to COVID-19 virus Assessment & Plan: superimposed with bacterial pneumonia with worsening B/L lungs infiltrates , and sputum culture grwoing gram negative rods , will upgrade antibiotics to zosyn pending final sputum culture , continue suctioning as needed , monitor chest x-ray. (5) Acute respiratory failure due to COVID-19 Assessment & Plan: suspect due to pneumonitis from COVID 19 super imposed with bacterial infection due to Pseudomonas Aeruginosa , continue respiratory support with BIPAP to keep sat more than 90 % , close monitor of ABG and chest x-ray. may benefit from PRONE POSITION Subjective Constitutional: Reports: no symptoms HEENT: Reports: no symptoms Respiratory: Reports: shortness of breath Cardiovascular: Reports: no symptoms Gastrointestinal/Abdominal: Reports: no symptoms Genitourinary: Reports: no symptoms Neurologic: Reports: no symptoms Skin: Reports: no symptoms Allergies: Coded Allergies: No Known Allergies (Unverified , 07/07/20) she continue to be hypoxemic and SOB on high flow oxygen via NRB mask with FIO2 of 100 % and was tachypnec and tachycardic , was started on BIPAP , SPIKED FEV ER of 102 TODAY Objective Last 24 Hour Vital Signs Date Time Temp Pulse Resp B/P (MAP) Pulse Ox O2 Delivery O2 Flow Rate FiO2 07/19/20 19:30 102 40 92 100 07/19/20 19:23 93 Bi-Pap 100 07/19/20 16:00 Non-Rebreather 07/19/20 16:00 100 07/19/20 16:00 98.6 105 40 141/87 (105) 90 07/19/20 16:00 102 07/19/20 15:38 105 38 92 100 07/19/20 12:00 Non-Rebreather 07/19/20 12:00 100 07/19/20 12:00 98.1 107 43 133/91 (105) 90 07/19/20 11:51 113 07/19/20 10:56 117 33 94 100 07/19/20 09:05 92 Bi-Pap 100 07/19/20 08:00 99.3 105 41 122/84 (97) 90 07/19/20 08:00 106 07/19/20 08:00 100 07/19/20 08:00 Non-Rebreather 07/19/20 07:39 106 07/19/20 07:17 104 42 92 100 07/19/20 04:00 99.1 100 38 151/79 (103) 92 07/19/20 04:00 109 07/19/20 04:00 Non-Rebreather 07/19/20 03:30 111 34 92 100 07/19/20 02:00 100 07/19/20 00:00 Non-Rebreather 15.0 07/19/20 00:00 121 07/19/20 00:00 99.5 131 56 136/81 (99) 86 07/18/20 23:08 123 47 90 100 Height (Feet): 5 Height (Inches): 3.00 Weight (Pounds): 162 General Appearance: WD/WN, no acute distress HEENT: normocephalic, atraumatic, anicteric, mucous membranes moist Respiratory/Chest: chest wall non-tender, no respiratory distress, no accessory muscle use, decreased breath sounds, rhonchi - bilaterally Cardiovascular: normal peripheral pulses, normal rate, regular rhythm, no gallop/murmur, no JVD Abdomen: normal bowel sounds, soft, non tender, no organomegaly, non distended, no mass, no scars Genitourinary: normal external genitalia Extremities: no cyanosis, no clubbing Skin: no rash, no lesions Neurologic/Psychiatric: alert, responsive Lymphatic: no neck adenopathy, no groin adenopathy Musculoskeletal: normal muscle bulk Microbiology Date/Time Source Procedure Growth Status 07/16/20 21:30 Sputum Expectorated Gram Stain - Final Complete 07/16/20 21:30 Sputum Culture - Final Pseudomonas Aeruginosa Shae Albicans Usual Respiratory Lakisha Complete 07/16/20 21:30 Blood Blood Culture - Preliminary NO GROWTH AFTER 48 HOURS Resulted 07/16/20 21:15 Blood Blood Culture - Preliminary NO GROWTH AFTER 48 HOURS Resulted Laboratory Tests Test 07/18/20 21:20 07/19/20 01:42 07/19/20 08:33 White Blood Count 19.5 K/UL (4.8-10.8) H Red Blood Count 4.02 M/UL (4.20-5.40) L Hemoglobin 11.5 G/DL (12.0-16.0) L Hematocrit 35.9 % (37.0-47.0) L Mean Corpuscular Volume 89 FL (80-99) Mean Corpuscular Hemoglobin 28.6 PG (27.0-31.0) Mean Corpuscular Hemoglobin Concent 32.0 G/DL (32.0-36.0) Red Cell Distribution Width 12.9 % (11.6-14.8) Platelet Count 215 K/UL (150-450) Mean Platelet Volume 7.8 FL (6.5-10.1) Neutrophils (%) (Auto) % (45.0-75.0) Lymphocytes (%) (Auto) % (20.0-45.0) Monocytes (%) (Auto) % (1.0-10.0) Eosinophils (%) (Auto) % (0.0-3.0) Basophils (%) (Auto) % (0.0-2.0) Differential Total Cells Counted 100 Neutrophils % (Manual) 92 % (45-75) H Lymphocytes % (Manual) 5 % (20-45) L Monocytes % (Manual) 3 % (1-10) Eosinophils % (Manual) 0 % (0-3) Basophils % (Manual) 0 % (0-2) Band Neutrophils 0 % (0-8) Toxic Granulation 2+ Platelet Estimate Adequate Platelet Morphology Normal Arterial Blood pH 7.382 (7.350-7.450) 7.445 (7.350-7.450) Arterial Blood Partial Pressure CO2 39.1 mmHg (35.0-45.0) 35.9 mmHg (35.0-45.0) Arterial Blood Partial Pressure O2 57.6 mmHg (75.0-100.0) L 56.6 mmHg (75.0-100.0) L Arterial Blood HCO3 22.7 mmol/L (22.0-26.0) 24.1 mmol/L (22.0-26.0) Arterial Blood Oxygen Saturation 86.3 % (95-100) *L 87.0 % (95-100) *L Arterial Blood Base Excess -2.1 (-2-2) L 0.4 (-2-2) Timbo Test Positive Positive Current Medications Medications (Trade) Dose Ordered Sig/Marian Route PRN Reason Start Time Stop Time Status Last Admin Dose Admin Acetaminophen (Tylenol) 650 mg Q4H PRN RECTAL Temp >100.5 07/18/20 18:30 08/17/20 18:29 07/18/20 18:40 Acetaminophen (Tylenol) 650 mg Q6H PRN ORAL For Pain 07/07/20 15:45 08/06/20 15:44 07/16/20 09:45 Acetaminophen (Tylenol) 650 mg Q6H PRN ORAL FEVER 07/07/20 16:15 08/06/20 16:14 07/18/20 05:48 Benzonatate (Tessalon Perles) 100 mg TIDPRN PRN ORAL For Cough 07/18/20 18:30 08/17/20 18:29 Dextrose (Dextrose 50%) 25 ml Q30M PRN IV Hypoglycemia 07/07/20 15:45 10/05/20 15:44 Dextrose (Dextrose 50%) 50 ml Q30M PRN IV Hypoglycemia 07/07/20 15:45 10/05/20 15:44 Dextrose/Sodium Chloride 1,000 ml @ 50 mls/hr Q20H IV 07/19/20 16:00 08/18/20 15:59 07/19/20 16:00 Docusate Sodium (Colace) 100 mg EVERY 12 HOURS ORAL 07/12/20 21:00 08/08/20 08:59 07/18/20 09:49 Enoxaparin Sodium (Lovenox) 80 mg DAILY SUBQ 07/08/20 09:00 10/06/20 08:59 07/19/20 10:10 Famotidine (Pepcid) 20 mg BID ORAL 07/09/20 09:00 10/07/20 08:59 07/18/20 09:51 Insulin Aspart (NovoLOG) BEFORE MEALS AND HS SUBQ 07/07/20 16:30 10/05/20 16:29 07/19/20 18:29 Losartan Potassium (Cozaar) 25 mg DAILY ORAL 07/11/20 11:00 08/10/20 10:59 07/18/20 09:49 Methylprednisolone Sodium Succinate (Solu-MEDROL) 20 mg EVERY 8 HOURS IVP 07/18/20 22:00 07/28/20 21:59 07/19/20 14:35 Piperacillin Sod/ Tazobactam Sod 4.5 gm/Sodium Chloride 110 ml @ 27.5 mls/hr EVERY 8 HOURS IVPB 07/18/20 22:00 07/25/20 21:00 07/19/20 14:35 Nataliia Velazquez M.D. Jul 19, 2020 20:45
[2020-07-20] VITALS: BP 134/84
[2020-07-20 04:00] VITALS: BP 154/84
[2020-07-20] MEDS: Solu-MEDROL 40mg Inj IVP SCH (05:31)
[2020-07-20] MEDS: Piperacillin/Tazobactam 4.5 GM in NS 110 ML IVPB SCH (05:32)
[2020-07-20] MEDS: NovoLOG Insulin Flexpen SUBQ SCH ×4 (05:33→21:30)
--- NOTE | 2020-07-20 07:20 | NUR ---
NURSE HAND-OFF REPORT: Important Events on Shift:[Patient still hypoxic with activity. Needs assistance.] Patient Status: [Stable] Diet: [CCHO Medium] Pending Orders: [] Pending Results/Labs:[] Pending MD notification:[] Latest Vital Signs: Temperature 98.6 , Pulse 109 , B/P 154 /84 , Respiratory Rate 38 , O2 SAT 93 , Nasal Cannula, O2 Flow Rate 15.0 . Vital Sign Comment: [] EKG Rhythm: Sinus Tachycardia Rhythm change?: Y MD Notified?: N - MD Response: Latest Plaza Fall Score: 30 Fall Risk: Medium Risk Safety Measures: Call light Within Reach, Bed Alarm Zone 3, Side Rails Side Rails x2, Bed position Low and Locked. Fall Precautions: Yellow Socks Report given to [LIANA Gnozalez].
[2020-07-20 08:00] VITALS: BP 150/99
[2020-07-20] MEDS: Losartan 25mg tab ORAL SCH (09:00)
[2020-07-20] MEDS: Docusate 100mg cap ORAL SCH ×2 (09:00→21:00)
[2020-07-20 09:46] LABS: HEMATOCRIT 37.8 % (37.0-47.0); HEMOGLOBIN 12.1 G/DL (12.0-16.0); MEAN CORPUSCULAR VOLUME 88 FL (80-99); PLATELET COUNT 226 K/UL (150-450); RED BLOOD COUNT 4.29 M/UL (4.20-5.40); RED CELL DISTRIBUTION WIDTH 12.7 % (11.6-14.8)
[2020-07-20 09:52] LABS: WHITE BLOOD COUNT 20.6 K/UL (4.8-10.8)
[2020-07-20 09:57] LABS: BASOPHILS % (AUTO) 0.7 % (0.0-2.0); LYMPHOCYTES % (AUTO) 2.2 % (20.0-45.0); MONOCYTES % (AUTO) 4.4 % (1.0-10.0); NEUTROPHILS % (AUTO) 92.7 % (45.0-75.0)
[2020-07-20] MEDS: Enoxaparin 80mg Inj SUBQ SCH (10:18)
--- NOTE | 2020-07-20 10:29 | NUR ---
CASE MANAGEMENT:REVIEW 07/20/20 SI: COVID PNEUMONIA 98.6 126 38 154/84 93% ON BIPAP W/100% FIO2 WBC+20.6 IS: IV CEFEPIME Q24 IV ZOSYN Q8HRS IV SOLUMEDROL Q8HRS IV PEPCID Q12 LOVENOX SQ QD : STEP DOWN UNIT DCP: FROM HOME PLAN: MONITOR OXYGEN REQUIREMENTS CONTINUE IV ANTIBIOTIC
[2020-07-20 10:33] LABS: ALANINE AMINOTRANSFERASE 15 U/L (12-78); ALBUMIN 1.9 G/DL (3.4-5.0); ALBUMIN/GLOBULIN RATIO 0.3 (1.0-2.7); ALKALINE PHOSPHATASE 87 U/L (46-116); ANION GAP 11 mmol/L (5-15); ASPARTATE AMINO TRANSFERASE 19 U/L (15-37); BILIRUBIN,TOTAL 0.6 MG/DL (0.2-1.0); BLOOD UREA NITROGEN 27 mg/dL (7-18); CALCIUM 9.3 MG/DL (8.5-10.1); CARBON DIOXIDE 26 MMOL/L (21-32); CHLORIDE 113 MMOL/L (98-107); CREATININE 0.7 MG/DL (0.55-1.30); POTASSIUM 4.2 MMOL/L (3.5-5.1); SODIUM 150 MMOL/L (136-145)
--- NOTE | 2020-07-20 11:16 | Pulmonology Progress Note ---
Subjective ROS Limited/Unobtainable: No Interval Events: desaturated and started on BiPAP last night Constitutional: Reports: fever, other - Resolved HEENT: Repors: no symptoms Respiratory: Reports: shortness of breath Gastrointestinal/Abdominal: Reports: no symptoms Psychiatric: Reports: no symptoms Skin: Reports: no symptoms Musculoskeletal: Reports: no symptoms Allergies: Coded Allergies: No Known Allergies (Unverified , 07/07/20) Objective Last 24 Hour Vital Signs Date Time Temp Pulse Resp B/P (MAP) Pulse Ox O2 Delivery O2 Flow Rate FiO2 07/20/20 08:00 100 07/20/20 08:00 106 07/20/20 08:00 Bi-pap 07/20/20 08:00 98.6 107 43 150/99 (116) 93 07/20/20 04:00 126 07/20/20 04:00 98.6 109 38 154/84 (107) 93 07/20/20 04:00 100 07/20/20 04:00 Bi-pap 07/20/20 03:32 114 43 91 100 07/20/20 00:00 Bi-pap 07/20/20 00:00 94 07/20/20 00:00 98.5 102 37 134/84 (101) 95 07/19/20 22:53 98 36 93 100 07/19/20 20:00 99.0 103 34 137/88 (104) 93 07/19/20 20:00 Bi-pap 07/19/20 20:00 104 07/19/20 20:00 100 07/19/20 19:30 102 40 92 100 07/19/20 19:23 93 Bi-Pap 100 07/19/20 16:00 Bi-pap 07/19/20 16:00 100 07/19/20 16:00 98.6 105 40 141/87 (105) 90 07/19/20 16:00 102 07/19/20 15:38 105 38 92 100 07/19/20 12:00 Bi-pap 07/19/20 12:00 100 07/19/20 12:00 98.1 107 43 133/91 (105) 90 07/19/20 11:51 113 Intake and Output 07/19/20 07/20/20 19:00 07:00 Intake Total 100 ml 50 ml Balance 100 ml 50 ml IV Total 100 ml 50 ml # Voids 2 1 # Bowel Movements 1 General Appearance: no acute distress HEENT: normocephalic Respiratory: decreased breath sounds Cardiovascular: normal peripheral pulses Abdomen: normal bowel sounds Laboratory Tests 07/19/20 12:32: POC Whole Blood Glucose 163H 07/19/20 17:49: POC Whole Blood Glucose 188H 07/19/20 20:16: POC Whole Blood Glucose 182H 07/20/20 05:22: POC Whole Blood Glucose 177H 07/20/20 08:21: Arterial Blood pH 7.490H, Arterial Blood Partial Pressure CO2 35.5, Arterial Blood Partial Pressure O2 56.7L, Arterial Blood HCO3 26.4H, Arterial Blood Oxygen Saturation 88.2*L, Arterial Blood Base Excess 3.3H, Timbo Test Positive 07/20/20 09:30: White Blood Count 20.6H, Red Blood Count 4.29, Hemoglobin 12.1, Hematocrit 37.8, Mean Corpuscular Volume 88, Mean Corpuscular Hemoglobin 28.2, Mean Corpuscular Hemoglobin Concent 32.0, Red Cell Distribution Width 12.7, Platelet Count 226, Mean Platelet Volume 7.9, Neutrophils (%) (Auto) 92.7H, Lymphocytes (%) (Auto) 2.2L, Monocytes (%) (Auto) 4.4, Eosinophils (%) (Auto) 0.0, Basophils (%) (Auto) 0.7, Sodium Level 150H, Potassium Level 4.2, Chloride Level 113H, Carbon Dioxide Level 26, Anion Gap 11, Blood Urea Nitrogen 27H, Creatinine 0.7, Estimat Glomerular Filtration Rate > 60, Glucose Level 201H, Calcium Level 9.3, Total Bilirubin 0.6, Aspartate Amino Transf (AST/SGOT) 19, Alanine Aminotransferase (ALT/SGPT) 15, Alkaline Phosphatase 87, Total Protein 7.4, Albumin 1.9L, Globulin 5.5, Albumin/Globulin Ratio 0.3L Current Medications Medications (Trade) Dose Ordered Sig/Marian Route PRN Reason Start Time Stop Time Status Last Admin Dose Admin Acetaminophen (Tylenol) 650 mg Q4H PRN RECTAL Temp >100.5 07/18/20 18:30 08/17/20 18:29 07/18/20 18:40 Acetaminophen (Tylenol) 650 mg Q6H PRN ORAL For Pain 07/07/20 15:45 08/06/20 15:44 07/16/20 09:45 Acetaminophen (Tylenol) 650 mg Q6H PRN ORAL FEVER 07/07/20 16:15 08/06/20 16:14 07/18/20 05:48 Benzonatate (Tessalon Perles) 100 mg TIDPRN PRN ORAL For Cough 07/18/20 18:30 08/17/20 18:29 Cefepime HCl 2 gm/ Sodium Chloride 110 ml @ 220 mls/hr Q8HR IV 07/20/20 14:00 07/27/20 13:59 Dextrose (Dextrose 50%) 25 ml Q30M PRN IV Hypoglycemia 07/07/20 15:45 10/05/20 15:44 Dextrose (Dextrose 50%) 50 ml Q30M PRN IV Hypoglycemia 07/07/20 15:45 10/05/20 15:44 Dextrose/Sodium Chloride 1,000 ml @ 50 mls/hr Q20H IV 07/19/20 16:00 08/18/20 15:59 07/19/20 16:00 Docusate Sodium (Colace) 100 mg EVERY 12 HOURS ORAL 07/12/20 21:00 08/08/20 08:59 07/18/20 09:49 Enoxaparin Sodium (Lovenox) 80 mg DAILY SUBQ 07/08/20 09:00 10/06/20 08:59 07/20/20 10:18 Famotidine (Pepcid I.v.) 20 mg Q12HR IVP 07/20/20 09:00 08/19/20 08:59 07/20/20 10:18 Insulin Aspart (NovoLOG) BEFORE MEALS AND HS SUBQ 07/07/20 16:30 10/05/20 16:29 07/20/20 05:33 Losartan Potassium (Cozaar) 25 mg DAILY ORAL 07/11/20 11:00 08/10/20 10:59 07/18/20 09:49 Methylprednisolone Sodium Succinate (Solu-MEDROL) 20 mg EVERY 8 HOURS IVP 07/18/20 22:00 07/28/20 21:59 07/20/20 05:31 Assessment/Plan Assessment/Plan 1. COVID-19 pneumonia. - COVID-19 PCR positive (2/5) -> continue isolation due to fever - s/p remdexsivir - s/p azithromycin - CXR (07/13) no significant change 2. Hypoxemic respiratory distress - s/p decadron (07/08-07/17) - now on Solu-Medrol - desaturated on BiPAP 17/01, 100% FiO2 -> now 19/05 -> check repeat ABG - Encourage proning 3. Hypertension. 4. Diabetes mellitus. 5. DVT ppx - on Lovenox - will repeat D-dimer (07/20) 6. Sputum Cx shows pseudomonas and cony - on Abx 7. Suspect bacterial infection given leukocytosis - will add cefepime - ordered fungal culture, BCx (07/20) Discussed with bedside RN. The care for this patient was discussed with my supervising physician Time spent for this case was approximately 31 minutes Milton Howard Jul 20, 2020 11:16
[2020-07-20] MEDS ORDERED: Cefepime HCl 1 GM in D5W 55 ML IVPB SCH (11:30)
[2020-07-20 12:00] VITALS: BP 145/98
--- NOTE | 2020-07-20 12:24 | General Progress Note ---
Subjective Allergies: Coded Allergies: No Known Allergies (Unverified , 07/07/20) Objective Last 24 Hour Vital Signs Date Time Temp Pulse Resp B/P (MAP) Pulse Ox O2 Delivery O2 Flow Rate FiO2 07/20/20 08:00 100 07/20/20 08:00 106 07/20/20 08:00 Bi-pap 07/20/20 08:00 98.6 107 43 150/99 (116) 93 07/20/20 04:00 126 07/20/20 04:00 98.6 109 38 154/84 (107) 93 07/20/20 04:00 100 07/20/20 04:00 Bi-pap 07/20/20 03:32 114 43 91 100 07/20/20 00:00 Bi-pap 07/20/20 00:00 94 07/20/20 00:00 98.5 102 37 134/84 (101) 95 07/19/20 22:53 98 36 93 100 07/19/20 20:00 99.0 103 34 137/88 (104) 93 07/19/20 20:00 Bi-pap 07/19/20 20:00 104 07/19/20 20:00 100 07/19/20 19:30 102 40 92 100 07/19/20 19:23 93 Bi-Pap 100 07/19/20 16:00 Bi-pap 07/19/20 16:00 100 07/19/20 16:00 98.6 105 40 141/87 (105) 90 07/19/20 16:00 102 07/19/20 15:38 105 38 92 100 Intake and Output 07/19/20 07/20/20 19:00 07:00 Intake Total 100 ml 50 ml Balance 100 ml 50 ml IV Total 100 ml 50 ml # Voids 2 1 # Bowel Movements 1 Laboratory Tests 07/19/20 12:32: POC Whole Blood Glucose 163H 07/19/20 17:49: POC Whole Blood Glucose 188H 07/19/20 20:16: POC Whole Blood Glucose 182H 07/20/20 05:22: POC Whole Blood Glucose 177H 07/20/20 08:21: Arterial Blood pH 7.490H, Arterial Blood Partial Pressure CO2 35.5, Arterial Blood Partial Pressure O2 56.7L, Arterial Blood HCO3 26.4H, Arterial Blood Oxygen Saturation 88.2*L, Arterial Blood Base Excess 3.3H, Timbo Test Positive 07/20/20 09:30: White Blood Count 20.6H, Red Blood Count 4.29, Hemoglobin 12.1, Hematocrit 37.8, Mean Corpuscular Volume 88, Mean Corpuscular Hemoglobin 28.2, Mean Corpuscular Hemoglobin Concent 32.0, Red Cell Distribution Width 12.7, Platelet Count 226, Mean Platelet Volume 7.9, Neutrophils (%) (Auto) 92.7H, Lymphocytes (%) (Auto) 2.2L, Monocytes (%) (Auto) 4.4, Eosinophils (%) (Auto) 0.0, Basophils (%) (Auto) 0.7, Sodium Level 150H, Potassium Level 4.2, Chloride Level 113H, Carbon Dioxide Level 26, Anion Gap 11, Blood Urea Nitrogen 27H, Creatinine 0.7, Estimat Glomerular Filtration Rate > 60, Glucose Level 201H, Calcium Level 9.3, Total Bilirubin 0.6, Aspartate Amino Transf (AST/SGOT) 19, Alanine Aminotransferase (ALT/SGPT) 15, Alkaline Phosphatase 87, Total Protein 7.4, Albumin 1.9L, Globulin 5.5, Albumin/Globulin Ratio 0.3L 07/20/20 11:01: Arterial Blood pH 7.453H, Arterial Blood Partial Pressure CO2 37.6, Arterial Blood Partial Pressure O2 61.5L, Arterial Blood HCO3 25.7, Arterial Blood Oxygen Saturation 89.8*L, Arterial Blood Base Excess 1.9, Timbo Test Positive 07/20/20 11:08: POC Whole Blood Glucose 208H Height (Feet): 5 Height (Inches): 3.00 Weight (Pounds): 162 Assessment/Plan Status: stable Assessment/Plan: S, O: I am feeling more sob, seems in moderate sob, no severe pain PHYSICAL EXAMINATION: HEAD AND NECK: Atraumatic and normocephalic. CHEST: Diffuse bronchial breathing sounds. HEART: S1 and S2. Regular rate and rhythm. ABDOMEN: Soft. No organomegaly. MUSCULOSKELETAL: No gross lateralized motor deficit. Meds: reviewed and reconciled in the chart ASSESSMENT: 1. COVID-19 pneumonia. 2. Hypoxemic respiratory failure. 3. Diabetes type 2. 4. Hyponatremia 5. GI and DVT prophylaxis. PLAN OF CARE: I left a VM for patient's brother in law, per her request. on 1334 hours on Jul 10 I spoke with patient's brother in law, I updated him about overall cnd of patient . Agreed with current management. given persistent high level of O2 requirement. I will repeat CXR No, interval imaging changes. notes from pulmonary reviewed given persistent high level of O2 requirement and new positive sputum culture; I will repeat CXR on jul 17 Worsening lung infiltration , grave prognosis. JOSE ANTONIO pineda Jul 20 Gail Malcolm MD Jul 20, 2020 12:24
--- NOTE | 2020-07-20 12:26 | NUR ---
RD ASSESSMENT & RECOMMENDATIONS SEE CARE ACTIVITY FOR COMPLETE ASSESSMENT DAILY ESTIMATED NEEDS: Needs based on DM, pulmonary/ 57.6kg abw 25-30 kcals/kg 9654-1534 total kcals 1-1.5 g protein/kg 58-86 g total protein 25-30 mL/kg 9330-0657 total fluid mLs NUTRITION DIAGNOSIS: Altered nutrition related lab values R/T diabetes and steroidal med as evidenced by A1C 6.9 w/ elev POC (125 242 223 180 180), pt on Decadron. CURRENT DIET:CCHO MED, mech soft chopped-> NOW NPO PO DIET RECOMMENDATIONS: CCHO MED/ texture as tolerated as medically able ADDITIONAL RECOMMENDATIONS: * Calibrated bedscale wt * Monitor respiratory status, PO tolerance - on NRB mask at this time * Glucerna BID w/ variable intake - now NPO * Monitor BGs closely while on Decadron, need for additional hypoglycemics. * Now on bipap/ NPO-> monitor need for TPN w/ prolonged NPO status
[2020-07-20] MEDS ORDERED: Metoprolol Tartrate 5mg/5ml Inj IVP SCH (12:45)
--- NOTE | 2020-07-20 13:23 | Nephrology Progress Note ---
Assessment/Plan Problem List: (1) Hyponatremia (2) Hypoxia (3) Pneumonitis (4) Acute respiratory failure due to COVID-19 (5) DMII (diabetes mellitus, type 2) (6) HTN (hypertension) Assessment Hyponatremia, improved with saline infusion COVID-19 infection Pneumonia, acute respiratory failure, hypoxia Diabetes mellitus Hypertension Plan July 20: IV changed to D5W 50 cc an hour. Renal parameters stable. Continue per consultants. July 19: Pulmonary status remains unstable. Stable from renal standpoint of view. July 18: Labs reviewed. Stable renal parameters and electrolytes. Continue per consultants. July 17: No labs drawn today. Remains stable from renal standpoint today. July 16: No labs drawn today. Continue per consultants. Stable from renal standpoint of view. July 15: Labs reviewed. Renal parameters stable. July 14: No labs from today. Continue per current management. Check labs tomorrow. July 13: No labs drawn today. Stable from renal standpoint of view. July 12: Today's labs pending. Medication list reviewed. Continue per current management and consultants. July 11: Labs reviewed. Renal parameters stable. July 10: Labs reviewed. Renal parameters electrolytes stable. Continue per consultants. July 09: Labs reviewed. Renal parameters and electrolytes stable. Continue per ID and pulmonary. Subjective ROS Limited/Unobtainable: Yes Objective Objective Last 24 Hour Vital Signs Date Time Temp Pulse Resp B/P (MAP) Pulse Ox O2 Delivery O2 Flow Rate FiO2 07/20/20 12:00 100 07/20/20 12:00 97.7 117 46 145/98 (114) 91 07/20/20 12:00 Bi-pap 07/20/20 08:00 100 07/20/20 08:00 106 07/20/20 08:00 Bi-pap 07/20/20 08:00 98.6 107 43 150/99 (116) 93 07/20/20 04:00 126 07/20/20 04:00 98.6 109 38 154/84 (107) 93 07/20/20 04:00 100 07/20/20 04:00 Bi-pap 07/20/20 03:32 114 43 91 100 07/20/20 00:00 Bi-pap 07/20/20 00:00 94 07/20/20 00:00 98.5 102 37 134/84 (101) 95 07/19/20 22:53 98 36 93 100 07/19/20 20:00 99.0 103 34 137/88 (104) 93 07/19/20 20:00 Bi-pap 07/19/20 20:00 104 07/19/20 20:00 100 07/19/20 19:30 102 40 92 100 07/19/20 19:23 93 Bi-Pap 100 07/19/20 16:00 Bi-pap 07/19/20 16:00 100 07/19/20 16:00 98.6 105 40 141/87 (105) 90 07/19/20 16:00 102 07/19/20 15:38 105 38 92 100 Intake and Output 07/19/20 07/20/20 19:00 07:00 Intake Total 100 ml 50 ml Balance 100 ml 50 ml IV Total 100 ml 50 ml # Voids 2 1 # Bowel Movements 1 Current Medications Medications (Trade) Dose Ordered Sig/Marian Route PRN Reason Start Time Stop Time Status Last Admin Dose Admin Acetaminophen (Tylenol) 650 mg Q4H PRN RECTAL Temp >100.5 07/18/20 18:30 08/17/20 18:29 07/18/20 18:40 Acetaminophen (Tylenol) 650 mg Q6H PRN ORAL For Pain 07/07/20 15:45 08/06/20 15:44 07/16/20 09:45 Acetaminophen (Tylenol) 650 mg Q6H PRN ORAL FEVER 07/07/20 16:15 08/06/20 16:14 07/18/20 05:48 Benzonatate (Tessalon Perles) 100 mg TIDPRN PRN ORAL For Cough 07/18/20 18:30 08/17/20 18:29 Cefepime HCl 2 gm/ Sodium Chloride 110 ml @ 220 mls/hr Q8HR IV 07/20/20 14:00 07/27/20 13:59 Dextrose (Dextrose 50%) 25 ml Q30M PRN IV Hypoglycemia 07/07/20 15:45 10/05/20 15:44 Dextrose (Dextrose 50%) 50 ml Q30M PRN IV Hypoglycemia 07/07/20 15:45 10/05/20 15:44 Dextrose/Sodium Chloride 1,000 ml @ 50 mls/hr Q20H IV 07/19/20 16:00 08/18/20 15:59 07/19/20 16:00 Docusate Sodium (Colace) 100 mg EVERY 12 HOURS ORAL 07/12/20 21:00 08/08/20 08:59 07/18/20 09:49 Enoxaparin Sodium (Lovenox) 80 mg DAILY SUBQ 07/08/20 09:00 10/06/20 08:59 07/20/20 10:18 Famotidine (Pepcid I.v.) 20 mg Q12HR IVP 07/20/20 09:00 08/19/20 08:59 07/20/20 10:18 Insulin Aspart (NovoLOG) BEFORE MEALS AND HS SUBQ 07/07/20 16:30 10/05/20 16:29 07/20/20 11:40 Insulin Detemir (Levemir) 7 units DAILY SUBQ 07/20/20 14:00 10/18/20 13:59 Losartan Potassium (Cozaar) 25 mg DAILY ORAL 07/11/20 11:00 08/10/20 10:59 07/18/20 09:49 Methylprednisolone Sodium Succinate (Solu-MEDROL) 20 mg DAILY IVP 07/21/20 09:00 10/19/20 08:59 Metoprolol Tartrate (Lopressor) 5 mg ONCE IVP 07/20/20 12:45 07/20/20 14:00 Laboratory Tests 07/19/20 17:49: POC Whole Blood Glucose 188H 07/19/20 20:16: POC Whole Blood Glucose 182H 07/20/20 05:22: POC Whole Blood Glucose 177H 07/20/20 08:21: Arterial Blood pH 7.490H, Arterial Blood Partial Pressure CO2 35.5, Arterial Blood Partial Pressure O2 56.7L, Arterial Blood HCO3 26.4H, Arterial Blood Oxygen Saturation 88.2*L, Arterial Blood Base Excess 3.3H, Timbo Test Positive 07/20/20 09:30: White Blood Count 20.6H, Red Blood Count 4.29, Hemoglobin 12.1, Hematocrit 37.8, Mean Corpuscular Volume 88, Mean Corpuscular Hemoglobin 28.2, Mean Corpuscular Hemoglobin Concent 32.0, Red Cell Distribution Width 12.7, Platelet Count 226, Mean Platelet Volume 7.9, Neutrophils (%) (Auto) 92.7H, Lymphocytes (%) (Auto) 2.2L, Monocytes (%) (Auto) 4.4, Eosinophils (%) (Auto) 0.0, Basophils (%) (Auto) 0.7, Sodium Level 150H, Potassium Level 4.2, Chloride Level 113H, Carbon Dioxide Level 26, Anion Gap 11, Blood Urea Nitrogen 27H, Creatinine 0.7, Estimat Glomerular Filtration Rate > 60, Glucose Level 201H, Calcium Level 9.3, Total Bilirubin 0.6, Aspartate Amino Transf (AST/SGOT) 19, Alanine Aminotransferase (ALT/SGPT) 15, Alkaline Phosphatase 87, Total Protein 7.4, Albumin 1.9L, Globulin 5.5, Albumin/Globulin Ratio 0.3L 07/20/20 11:01: Arterial Blood pH 7.453H, Arterial Blood Partial Pressure CO2 37.6, Arterial Blood Partial Pressure O2 61.5L, Arterial Blood HCO3 25.7, Arterial Blood Oxygen Saturation 89.8*L, Arterial Blood Base Excess 1.9, Timbo Test Positive 07/20/20 11:08: POC Whole Blood Glucose 208H Height (Feet): 5 Height (Inches): 3.00 Weight (Pounds): 162 General Appearance: no apparent distress Cardiovascular: tachycardia Respiratory/Chest: decreased breath sounds Abdomen: distended Objective No change Anurag Bridges MD Jul 20, 2020 13:23
[2020-07-20] MEDS: Cefepime HCl 2 GM in NS 110 ML IV SCH ×2 (14:10→21:37)
[2020-07-20 16:00] VITALS: BP 142/95
--- NOTE | 2020-07-20 17:40 | NUR ---
0720: Recieved report from LIANA Young. Pt on Bipap with O2 saturations in at 90%. Pt calm yet tachypneic. 0800: Spoke with Yun Omalley who stated it was ok to make pt NPO however she is allowed sips of water. Pepcid was also changed to IV route. 0830: Pt had stated she was short of breath ABG was obtained and Bipap settings were increased. TIO Howard at bedside and orders for repeat ABG in approximately 1 hour. 1300: Repeat ABG was obtained and results were given to TIO Howard. No new orders at this time. Pt occasionally endorses shortness of breath. Pt still tachypneic. 1330: Spoke with TIO Lobato with cardiology as pt has not been able to tolerate removal of Bipap to take cozaar. Pt was tachycardic with HR 117 and elevated BP's. Verbal order for one time dose of metoprolol received. 1500: Called to bedside by SUEDE CLEANER stating pt was "throwing up". Respiratory was called. When RN arrived at bedside pt had coughed up bloody phlegm. Pt was placed back on Bipap by RT. Pt O2 saturation increased back to 93%. 1700: Family called and was updated. Pt denies shortness of breath at this time. Pt with O2 saturation at 94%. Pt however remains tachypneic. All other needs addressed. Will continue to monitor closely.
[2020-07-20] MEDS: Levemir Flexpen SUBQ SCH (18:27)
--- NOTE | 2020-07-20 19:15 | NUR ---
NURSE NOTES: Received report from Marcell GAINES. Patient on bipap on bilevel with setting of 18/10 with FIO2 of 100% her o2 sats are 92%. patient vitals are stable at this time. RN encouraged patient to lie on her stomach to help open her lungs. Patient feels like she cant. RN encourage to try to lay on her side. Patient stated that she will try. RN will continue to monitor.
[2020-07-20 20:00] VITALS: BP 138/89
--- NOTE | 2020-07-20 20:56 | Infectious Diseases Prog Note ---
Assessment/Plan Problems: (1) Bilateral pneumonia Assessment & Plan: due to Pseudomonas aeruginosa with worsening infiltrates and positive sputum culture for pseudomonas aeruginosa ( yeast is most likely colonizer) , continue zosyn treatment ,( NOT CEFEPIME SINCE SHE SPIKED FEVER WHILE ON CEFEPIME )for three weeks , monitor blood culture , aspiration precaution . (2) Fever Assessment & Plan: suspect due to pneumonia with pseudomonas aeruginosa , RECOMMEND TO CONTINUE ZOSYN for three weeks course of therapy ( NOT CEFEPIME) , no evidence of sepsis with negative blood culture x 2 SO FAR (3) COVID-19 virus infection Assessment & Plan: complicated with pneumonia and hypoxemia, S/P remdisvir for 5 days, and decadrone for 10 days , keep patient in enhanced droplet isolation, titrate oxygen to keep O2 sat more than 90%, RECOMMEND PRONE POSITION . (4) Pneumonia due to COVID-19 virus Assessment & Plan: superimposed with bacterial pneumonia with worsening B/L lungs infiltrates , and sputum culture grew Pseudomonas aeruginosa continue zosyn treatment for three weeks , continue suctioning as needed , monitor chest x-ray. (5) Acute respiratory failure due to COVID-19 Assessment & Plan: suspect due to pneumonitis from COVID 19 super imposed with bacterial infection due to Pseudomonas Aeruginosa , continue respiratory support with BIPAP to keep sat more than 90 % , close monitor of ABG and chest x-ray. may benefit from PRONE POSITION Assessment/Plan ID will sign off at this point, please feel free to call with any questions . D/W primary and PA Subjective Constitutional: Reports: no symptoms HEENT: Reports: no symptoms Respiratory: Reports: shortness of breath, productive cough Breasts: Reports: no symptoms Cardiovascular: Reports: no symptoms Gastrointestinal/Abdominal: Reports: no symptoms Genitourinary: Reports: no symptoms Neurologic: Reports: no symptoms Skin: Reports: no symptoms Endocrine: Reports: no symptoms Allergies: Coded Allergies: No Known Allergies (Unverified , 07/07/20) she continue to be hypoxemic and SOB on high flow oxygen via NRB mask with FIO2 of 100 % and was tachypnec and tachycardic , was started on BIPAP , SPIKED FEVER of 102 TODAY Objective Last 24 Hour Vital Signs Date Time Temp Pulse Resp B/P (MAP) Pulse Ox O2 Delivery O2 Flow Rate FiO2 07/20/20 19:37 93 Bi-Pap 100 07/20/20 19:36 114 33 93 100 07/20/20 16:00 100 07/20/20 16:00 Bi-pap 07/20/20 16:00 111 07/20/20 16:00 97.5 105 42 142/95 (111) 93 07/20/20 15:01 109 39 92 100 07/20/20 13:21 112 145/98 07/20/20 12:00 109 07/20/20 12:00 100 07/20/20 12:00 97.7 117 46 145/98 (114) 91 07/20/20 12:00 Bi-pap 07/20/20 10:30 108 42 93 100 07/20/20 08:00 100 07/20/20 08:00 106 07/20/20 08:00 Bi-pap 07/20/20 08:00 98.6 107 43 150/99 (116) 93 07/20/20 07:04 109 45 92 100 07/20/20 07:04 92 Bi-Pap 100 07/20/20 04:00 126 07/20/20 04:00 98.6 109 38 154/84 (107) 93 07/20/20 04:00 100 07/20/20 04:00 Bi-pap 07/20/20 03:32 114 43 91 100 07/20/20 00:00 Bi-pap 07/20/20 00:00 94 07/20/20 00:00 98.5 102 37 134/84 (101) 95 07/19/20 22:53 98 36 93 100 Height (Feet): 5 Height (Inches): 3.00 Weight (Pounds): 162 General Appearance: WD/WN, no acute distress HEENT: normocephalic, atraumatic, anicteric, mucous membranes moist, PERRL Respiratory/Chest: chest wall non-tender, no respiratory distress, no accessory muscle use, decreased breath sounds, crackles/rales Cardiovascular: normal peripheral pulses, normal rate, regular rhythm, no gallop/murmur, no JVD Abdomen: normal bowel sounds, soft, non tender, no organomegaly, non distended, no mass, no scars Genitourinary: normal external genitalia Extremities: no cyanosis, no clubbing Skin: no rash, no lesions Neurologic/Psychiatric: alert, responsive Lymphatic: no neck adenopathy, no groin adenopathy Laboratory Tests Test 07/20/20 05:22 07/20/20 08:21 07/20/20 09:30 07/20/20 11:01 POC Whole Blood Glucose 177 MG/DL (74-106) H Arterial Blood pH 7.490 (7.350-7.450) 7.453 (7.350-7.450) Arterial Blood Partial Pressure CO2 35.5 mmHg (35.0-45.0) 37.6 mmHg (35.0-45.0) Arterial Blood Partial Pressure O2 56.7 mmHg (75.0-100.0) L 61.5 mmHg (75.0-100.0) L Arterial Blood HCO3 26.4 mmol/L (22.0-26.0) H 25.7 mmol/L (22.0-26.0) Arterial Blood Oxygen Saturation 88.2 % (95-100) *L 89.8 % (95-100) *L Arterial Blood Base Excess 3.3 (-2-2) H 1.9 (-2-2) Timbo Test Positive Positive White Blood Count 20.6 K/UL (4.8-10.8) H Red Blood Count 4.29 M/UL (4.20-5.40) Hemoglobin 12.1 G/DL (12.0-16.0) Hematocrit 37.8 % (37.0-47.0) Mean Corpuscular Volume 88 FL (80-99) Mean Corpuscular Hemoglobin 28.2 PG (27.0-31.0) Mean Corpuscular Hemoglobin Concent 32.0 G/DL (32.0-36.0) Red Cell Distribution Width 12.7 % (11.6-14.8) Platelet Count 226 K/UL (150-450) Mean Platelet Volume 7.9 FL (6.5-10.1) Neutrophils (%) (Auto) 92.7 % (45.0-75.0) H Lymphocytes (%) (Auto) 2.2 % (20.0-45.0) L Monocytes (%) (Auto) 4.4 % (1.0-10.0) Eosinophils (%) (Auto) 0.0 % (0.0-3.0) Basophils (%) (Auto) 0.7 % (0.0-2.0) Sodium Level 150 MMOL/L (136-145) H Potassium Level 4.2 MMOL/L (3.5-5.1) Chloride Level 113 MMOL/L (98-107) H Carbon Dioxide Level 26 MMOL/L (21-32) Anion Gap 11 mmol/L (5-15) Blood Urea Nitrogen 27 mg/dL (7-18) H Creatinine 0.7 MG/DL (0.55-1.30) Estimat Glomerular Filtration Rate > 60 mL/min (>60) Glucose Level 201 MG/DL (74-106) H Calcium Level 9.3 MG/DL (8.5-10.1) Total Bilirubin 0.6 MG/DL (0.2-1.0) Aspartate Amino Transf (AST/SGOT) 19 U/L (15-37) Alanine Aminotransferase (ALT/SGPT) 15 U/L (12-78) Alkaline Phosphatase 87 U/L (46-116) Total Protein 7.4 G/DL (6.4-8.2) Albumin 1.9 G/DL (3.4-5.0) L Globulin 5.5 g/dL Albumin/Globulin Ratio 0.3 (1.0-2.7) L Test 07/20/20 11:08 07/20/20 15:30 07/20/20 18:16 POC Whole Blood Glucose 208 MG/DL (74-106) H 187 MG/DL (74-106) H D-Dimer 3.40 mg/L FEU (0.00-0.49) H Current Medications Medications (Trade) Dose Ordered Sig/Marian Route PRN Reason Start Time Stop Time Status Last Admin Dose Admin Acetaminophen (Tylenol) 650 mg Q4H PRN RECTAL Temp >100.5 07/18/20 18:30 08/17/20 18:29 07/18/20 18:40 Acetaminophen (Tylenol) 650 mg Q6H PRN ORAL For Pain 07/07/20 15:45 08/06/20 15:44 07/16/20 09:45 Acetaminophen (Tylenol) 650 mg Q6H PRN ORAL FEVER 07/07/20 16:15 08/06/20 16:14 07/18/20 05:48 Benzonatate (Tessalon Perles) 100 mg TIDPRN PRN ORAL For Cough 07/18/20 18:30 08/17/20 18:29 Cefepime HCl 2 gm/ Sodium Chloride 110 ml @ 220 mls/hr Q8HR IV 07/20/20 14:00 07/27/20 13:59 07/20/20 14:10 Dextrose 1,000 ml @ 50 mls/hr Q20H IV 07/20/20 13:30 08/19/20 13:29 07/20/20 14:10 Dextrose (Dextrose 50%) 25 ml Q30M PRN IV Hypoglycemia 07/07/20 15:45 10/05/20 15:44 Dextrose (Dextrose 50%) 50 ml Q30M PRN IV Hypoglycemia 07/07/20 15:45 10/05/20 15:44 Docusate Sodium (Colace) 100 mg EVERY 12 HOURS ORAL 07/12/20 21:00 08/08/20 08:59 07/18/20 09:49 Enoxaparin Sodium (Lovenox) 80 mg DAILY SUBQ 07/08/20 09:00 10/06/20 08:59 07/20/20 10:18 Famotidine (Pepcid I.v.) 20 mg Q12HR IVP 07/20/20 09:00 08/19/20 08:59 07/20/20 10:18 Insulin Aspart (NovoLOG) BEFORE MEALS AND HS SUBQ 07/07/20 16:30 10/05/20 16:29 07/20/20 16:30 Insulin Detemir (Levemir) 7 units DAILY SUBQ 07/20/20 14:00 10/18/20 13:59 07/20/20 18:27 Losartan Potassium (Cozaar) 25 mg DAILY ORAL 07/11/20 11:00 08/10/20 10:59 07/18/20 09:49 Methylprednisolone Sodium Succinate (Solu-MEDROL) 20 mg DAILY IVP 07/21/20 09:00 10/19/20 08:59 Nataliia Velazquez M.D. Jul 20, 2020 20:56
--- NOTE | 2020-07-20 21:51 | Cardiology Progress Note ---
Assessment/Plan Assessment/Plan 1. COVID-19 viral PNA on remdesivir and dexamethasone WBCs trending upward 2. Respiratory failure 2/2 acute PNA O2 dependent 3. HFpEF acute on chronic diastolic HF with preserved EF EF 65%, compensated BNP negative 4. DMII 5. GERD Echo negative for acute decompensated HF. Diuresis as needed with IV Lasix. SBP and HR controlled. Subjective Subjective In isolation, no distress Objective Last 24 Hour Vital Signs Date Time Temp Pulse Resp B/P (MAP) Pulse Ox O2 Delivery O2 Flow Rate FiO2 07/20/20 20:00 Bi-pap 07/20/20 20:00 106 07/20/20 20:00 100 07/20/20 20:00 97.2 118 38 138/89 (105) 07/20/20 19:37 93 Bi-Pap 100 07/20/20 19:36 114 33 93 100 07/20/20 16:00 100 07/20/20 16:00 Bi-pap 07/20/20 16:00 111 07/20/20 16:00 97.5 105 42 142/95 (111) 93 07/20/20 15:01 109 39 92 100 07/20/20 13:21 112 145/98 07/20/20 12:00 109 07/20/20 12:00 100 07/20/20 12:00 97.7 117 46 145/98 (114) 91 07/20/20 12:00 Bi-pap 07/20/20 10:30 108 42 93 100 07/20/20 08:00 100 07/20/20 08:00 106 07/20/20 08:00 Bi-pap 07/20/20 08:00 98.6 107 43 150/99 (116) 93 07/20/20 07:04 109 45 92 100 07/20/20 07:04 92 Bi-Pap 100 07/20/20 04:00 126 07/20/20 04:00 98.6 109 38 154/84 (107) 93 07/20/20 04:00 100 07/20/20 04:00 Bi-pap 07/20/20 03:32 114 43 91 100 07/20/20 00:00 Bi-pap 07/20/20 00:00 94 07/20/20 00:00 98.5 102 37 134/84 (101) 95 07/19/20 22:53 98 36 93 100 Intake and Output 07/19/20 07/20/20 19:00 07:00 Intake Total 100 ml 50 ml Balance 100 ml 50 ml IV Total 100 ml 50 ml # Voids 2 1 # Bowel Movements 1 Laboratory Tests Test 07/20/20 05:22 07/20/20 08:21 07/20/20 09:30 07/20/20 11:01 POC Whole Blood Glucose 177 MG/DL (74-106) H Arterial Blood pH 7.490 (7.350-7.450) 7.453 (7.350-7.450) Arterial Blood Partial Pressure CO2 35.5 mmHg (35.0-45.0) 37.6 mmHg (35.0-45.0) Arterial Blood Partial Pressure O2 56.7 mmHg (75.0-100.0) L 61.5 mmHg (75.0-100.0) L Arterial Blood HCO3 26.4 mmol/L (22.0-26.0) H 25.7 mmol/L (22.0-26.0) Arterial Blood Oxygen Saturation 88.2 % (95-100) *L 89.8 % (95-100) *L Arterial Blood Base Excess 3.3 (-2-2) H 1.9 (-2-2) Timbo Test Positive Positive White Blood Count 20.6 K/UL (4.8-10.8) H Red Blood Count 4.29 M/UL (4.20-5.40) Hemoglobin 12.1 G/DL (12.0-16.0) Hematocrit 37.8 % (37.0-47.0) Mean Corpuscular Volume 88 FL (80-99) Mean Corpuscular Hemoglobin 28.2 PG (27.0-31.0) Mean Corpuscular Hemoglobin Concent 32.0 G/DL (32.0-36.0) Red Cell Distribution Width 12.7 % (11.6-14.8) Platelet Count 226 K/UL (150-450) Mean Platelet Volume 7.9 FL (6.5-10.1) Neutrophils (%) (Auto) 92.7 % (45.0-75.0) H Lymphocytes (%) (Auto) 2.2 % (20.0-45.0) L Monocytes (%) (Auto) 4.4 % (1.0-10.0) Eosinophils (%) (Auto) 0.0 % (0.0-3.0) Basophils (%) (Auto) 0.7 % (0.0-2.0) Sodium Level 150 MMOL/L (136-145) H Potassium Level 4.2 MMOL/L (3.5-5.1) Chloride Level 113 MMOL/L (98-107) H Carbon Dioxide Level 26 MMOL/L (21-32) Anion Gap 11 mmol/L (5-15) Blood Urea Nitrogen 27 mg/dL (7-18) H Creatinine 0.7 MG/DL (0.55-1.30) Estimat Glomerular Filtration Rate > 60 mL/min (>60) Glucose Level 201 MG/DL (74-106) H Calcium Level 9.3 MG/DL (8.5-10.1) Total Bilirubin 0.6 MG/DL (0.2-1.0) Aspartate Amino Transf (AST/SGOT) 19 U/L (15-37) Alanine Aminotransferase (ALT/SGPT) 15 U/L (12-78) Alkaline Phosphatase 87 U/L (46-116) Total Protein 7.4 G/DL (6.4-8.2) Albumin 1.9 G/DL (3.4-5.0) L Globulin 5.5 g/dL Albumin/Globulin Ratio 0.3 (1.0-2.7) L Test 07/20/20 11:08 07/20/20 15:30 07/20/20 18:16 07/20/20 21:16 POC Whole Blood Glucose 208 MG/DL (74-106) H 187 MG/DL (74-106) H 209 MG/DL (74-106) H D-Dimer 3.40 mg/L FEU (0.00-0.49) H Blanca Lobato PA-C Jul 20, 2020 21:51
[2020-07-21] VITALS: BP 142/93
--- NOTE | 2020-07-21 01:45 | NUR ---
NURSE NOTES: Patient sleeping. Patient febrile with a temp of 100.4. RN will give Tylenol prn. RN will continue to monitor.
[2020-07-21 04:00] VITALS: BP 144/86
[2020-07-21] MEDS: Cefepime HCl 2 GM in NS 110 ML IV SCH (05:26)
[2020-07-21] MEDS: NovoLOG Insulin Flexpen SUBQ SCH ×4 (05:53→20:50)
--- NOTE | 2020-07-21 07:45 | NUR ---
RESPIRATORY NOTE: PT received on BiPAP: 19/05 RR:12, 100%. Alarms are on and audible. PT is on facial mask with no facial wounds noted. PT'S current RR is increased and in the mid 30's. MD came in while I was assessing Patient and he removed her BiPAP mask because patient was saying that it was too much. I advised the MD not to remove mask because PT's saturation was only 92% and RR was increased. Pt saturation quickly dropped to 76%BiPAP mask placed back on patient. Saturations is now 93% Will continue to monitor.
[2020-07-21 08:00] VITALS: BP 129/85
[2020-07-21] MEDS: Docusate 100mg cap ORAL SCH ×2 (09:00→20:39)
[2020-07-21] MEDS: Losartan 25mg tab ORAL SCH (09:00)
[2020-07-21] MEDS: Solu-MEDROL 40mg Inj IVP SCH (09:06)
[2020-07-21] MEDS: Enoxaparin 80mg Inj SUBQ SCH (09:15)
[2020-07-21] MEDS: Levemir Flexpen SUBQ SCH (09:41)
--- NOTE | 2020-07-21 11:11 | Pulmonology Progress Note ---
Subjective ROS Limited/Unobtainable: Yes Interval Events: on BiPAP; desaturates rapidly on NRB Constitutional: Reports: no symptoms HEENT: Repors: no symptoms Respiratory: Reports: shortness of breath Gastrointestinal/Abdominal: Reports: no symptoms Psychiatric: Reports: no symptoms Skin: Reports: no symptoms Musculoskeletal: Reports: no symptoms Allergies: Coded Allergies: No Known Allergies (Unverified , 07/07/20) Objective Last 24 Hour Vital Signs Date Time Temp Pulse Resp B/P (MAP) Pulse Ox O2 Delivery O2 Flow Rate FiO2 07/21/20 08:00 98.1 111 36 129/85 (100) 93 07/21/20 08:00 Bi-pap 07/21/20 08:00 100 07/21/20 08:00 128 07/21/20 07:45 117 32 93 100 07/21/20 07:45 93 Bi-Pap 100 07/21/20 04:00 111 07/21/20 04:00 Bi-pap 07/21/20 04:00 101.7 115 32 144/86 (105) 93 07/21/20 04:00 100 07/21/20 03:38 117 34 92 100 07/21/20 00:00 Bi-pap 07/21/20 00:00 100 07/21/20 00:00 119 07/21/20 00:00 100.4 100 38 142/93 (109) 93 07/20/20 23:03 119 31 92 100 07/20/20 20:00 Bi-pap 07/20/20 20:00 106 07/20/20 20:00 100 07/20/20 20:00 97.2 118 38 138/89 (105) 07/20/20 19:37 93 Bi-Pap 100 07/20/20 19:36 114 33 93 100 07/20/20 16:00 100 07/20/20 16:00 Bi-pap 07/20/20 16:00 111 07/20/20 16:00 97.5 105 42 142/95 (111) 93 07/20/20 15:01 109 39 92 100 07/20/20 13:21 112 145/98 07/20/20 12:00 109 07/20/20 12:00 100 07/20/20 12:00 97.7 117 46 145/98 (114) 91 07/20/20 12:00 Bi-pap Intake and Output 07/20/20 07/21/20 19:00 07:00 Intake Total 450 ml 50 ml Balance 450 ml 50 ml IV Total 450 ml 50 ml # Voids 2 2 # Bowel Movements 1 1 General Appearance: no acute distress HEENT: normocephalic Respiratory: decreased breath sounds Cardiovascular: normal peripheral pulses Abdomen: normal bowel sounds Laboratory Tests 07/20/20 11:08: POC Whole Blood Glucose 208H 07/20/20 15:30: D-Dimer 3.40H 07/20/20 18:16: POC Whole Blood Glucose 187H 07/20/20 21:16: POC Whole Blood Glucose 209H 07/21/20 09:29: POC Whole Blood Glucose 241H Current Medications Medications (Trade) Dose Ordered Sig/Marian Route PRN Reason Start Time Stop Time Status Last Admin Dose Admin Acetaminophen (Tylenol) 650 mg Q4H PRN RECTAL Temp >100.5 07/18/20 18:30 08/17/20 18:29 07/18/20 18:40 Acetaminophen (Tylenol) 650 mg Q6H PRN ORAL For Pain 07/07/20 15:45 08/06/20 15:44 07/16/20 09:45 Acetaminophen (Tylenol) 650 mg Q6H PRN ORAL FEVER 07/07/20 16:15 08/06/20 16:14 07/18/20 05:48 Benzonatate (Tessalon Perles) 100 mg TIDPRN PRN ORAL For Cough 07/18/20 18:30 08/17/20 18:29 Cefepime HCl 2 gm/ Sodium Chloride 110 ml @ 220 mls/hr Q8HR IV 07/20/20 14:00 07/27/20 13:59 07/21/20 05:26 Dextrose 1,000 ml @ 50 mls/hr Q20H IV 07/20/20 13:30 08/19/20 13:29 07/21/20 09:06 Dextrose (Dextrose 50%) 25 ml Q30M PRN IV Hypoglycemia 07/07/20 15:45 10/05/20 15:44 Dextrose (Dextrose 50%) 50 ml Q30M PRN IV Hypoglycemia 07/07/20 15:45 10/05/20 15:44 Docusate Sodium (Colace) 100 mg EVERY 12 HOURS ORAL 07/12/20 21:00 08/08/20 08:59 07/18/20 09:49 Enoxaparin Sodium (Lovenox) 80 mg DAILY SUBQ 07/08/20 09:00 10/06/20 08:59 07/21/20 09:15 Famotidine (Pepcid I.v.) 20 mg Q12HR IVP 07/20/20 09:00 08/19/20 08:59 07/21/20 09:05 Insulin Aspart (NovoLOG) BEFORE MEALS AND HS SUBQ 07/07/20 16:30 10/05/20 16:29 07/21/20 05:53 Insulin Detemir (Levemir) 7 units DAILY SUBQ 07/20/20 14:00 10/18/20 13:59 07/21/20 09:41 Losartan Potassium (Cozaar) 25 mg DAILY ORAL 07/11/20 11:00 08/10/20 10:59 07/18/20 09:49 Methylprednisolone Sodium Succinate (Solu-MEDROL) 20 mg DAILY IVP 07/21/20 09:00 10/19/20 08:59 07/21/20 09:06 Assessment/Plan Assessment/Plan 1. COVID-19 pneumonia. - COVID-19 PCR positive (07/07) -> continue isolation due to fever - s/p remdexsivir - s/p azithromycin - CXR (07/13) no significant change 2. Hypoxemic respiratory distress - s/p decadron (07/08-07/17) - now on Solu-Medrol - desaturated on BiPAP 17/01, 100% FiO2 -> now 19/05 - Encourage proning 3. Hypertension. 4. Diabetes mellitus. 5. DVT ppx - on Lovenox - f/u D-dimer (07/20) more elevated + tachycardia-> will order CTA chest given S/Sx of PE -> Pt not candidate for CTA chest or V/Q scan given her high flow oxygen requirement; continue full dose Lovenox and monitor 6. Sputum Cx shows pseudomonas and cony - on Abx 7. Suspect bacterial infection given leukocytosis - ordered fungal culture, BCx (07/20) Discussed with bedside RN. The care for this patient was discussed with my supervising physician Time spent for this case was approximately 31 minutes Milton Howard Jul 21, 2020 11:11
--- NOTE | 2020-07-21 11:34 | General Progress Note ---
Subjective Allergies: Coded Allergies: No Known Allergies (Unverified , 07/07/20) Objective Last 24 Hour Vital Signs Date Time Temp Pulse Resp B/P (MAP) Pulse Ox O2 Delivery O2 Flow Rate FiO2 07/21/20 08:00 98.1 111 36 129/85 (100) 93 07/21/20 08:00 Bi-pap 07/21/20 08:00 100 07/21/20 08:00 128 07/21/20 07:45 117 32 93 100 07/21/20 07:45 93 Bi-Pap 100 07/21/20 04:00 111 07/21/20 04:00 Bi-pap 07/21/20 04:00 101.7 115 32 144/86 (105) 93 07/21/20 04:00 100 07/21/20 03:38 117 34 92 100 07/21/20 00:00 Bi-pap 07/21/20 00:00 100 07/21/20 00:00 119 07/21/20 00:00 100.4 100 38 142/93 (109) 93 07/20/20 23:03 119 31 92 100 07/20/20 20:00 Bi-pap 07/20/20 20:00 106 07/20/20 20:00 100 07/20/20 20:00 97.2 118 38 138/89 (105) 07/20/20 19:37 93 Bi-Pap 100 07/20/20 19:36 114 33 93 100 07/20/20 16:00 100 07/20/20 16:00 Bi-pap 07/20/20 16:00 111 07/20/20 16:00 97.5 105 42 142/95 (111) 93 07/20/20 15:01 109 39 92 100 07/20/20 13:21 112 145/98 07/20/20 12:00 109 07/20/20 12:00 100 07/20/20 12:00 97.7 117 46 145/98 (114) 91 07/20/20 12:00 Bi-pap Intake and Output 07/20/20 07/21/20 19:00 07:00 Intake Total 450 ml 50 ml Balance 450 ml 50 ml IV Total 450 ml 50 ml # Voids 2 2 # Bowel Movements 1 1 Laboratory Tests 07/20/20 15:30: D-Dimer 3.40H 07/20/20 18:16: POC Whole Blood Glucose 187H 07/20/20 21:16: POC Whole Blood Glucose 209H 07/21/20 09:29: POC Whole Blood Glucose 241H Height (Feet): 5 Height (Inches): 3.00 Weight (Pounds): 162 Assessment/Plan Status: stable Assessment/Plan: S, O: I am feeling more sob, seems in moderate sob, no severe pain PHYSICAL EXAMINATION: HEAD AND NECK: Atraumatic and normocephalic. CHEST: Diffuse bronchial breathing sounds. HEART: S1 and S2. Regular rate and rhythm. ABDOMEN: Soft. No organomegaly. MUSCULOSKELETAL: No gross lateralized motor deficit. Meds: reviewed and reconciled in the chart ASSESSMENT: 1. COVID-19 pneumonia. 2. Hypoxemic respiratory failure. 3. Diabetes type 2. 4. Hyponatremia 5. GI and DVT prophylaxis. PLAN OF CARE: I left a VM for patient's brother in law, per her request. on 1334 hours on Jul 10 I spoke with patient's brother in law, I updated him about overall cnd of patient . Agreed with current management. given persistent high level of O2 requirement. I will repeat CXR No, interval imaging changes. notes from pulmonary reviewed given persistent high level of O2 requirement and new positive sputum culture; I will repeat CXR on jul 19 Worsening lung infiltration , grave prognosis. DC steroid Jul 20 I spoke to the patient's brother in law, per her request. on 1125 hours on Jul 21. Notified based on [place] of prognosis visit by family member is encouraged Gail Malcolm MD Jul 21, 2020 11:34
[2020-07-21] MEDS ORDERED: Omnipaque-300 100ml vial INJ PRN (11:45)
[2020-07-21 12:00] VITALS: BP 134/88
--- NOTE | 2020-07-21 12:32 | NUR ---
CASE MANAGEMENT:REVIEW 07/21/20 SI: COVID PNEUMONIA 101.7 111 36 129/85 93% ON BIPAP W/100% FIO2 GLUCOSE+241 IS: IV CEFEPIME Q24 IV ZOSYN Q8HRS IV SOLUMEDROL Q8HRS IV PEPCID Q12 LOVENOX SQ QD : STEP DOWN UNIT DCP: FROM HOME PLAN: CT ANGIO TO R/O PE
--- NOTE | 2020-07-21 13:01 | Nephrology Progress Note ---
Assessment/Plan Problem List: (1) Hyponatremia (2) Hypoxia (3) Pneumonitis (4) Acute respiratory failure due to COVID-19 (5) DMII (diabetes mellitus, type 2) (6) HTN (hypertension) Assessment Hyponatremia, improved with saline infusion COVID-19 infection Pneumonia, acute respiratory failure, hypoxia Diabetes mellitus Hypertension Plan July 21: No CHEM panel drawn today. Stable from renal standpoint of view. Blood pressure stable. July 20: IV changed to D5W 50 cc an hour. Renal parameters stable. Continue per consultants. July 19: Pulmonary status remains unstable. Stable from renal standpoint of view. July 18: Labs reviewed. Stable renal parameters and electrolytes. Continue per consultants. July 17: No labs drawn today. Remains stable from renal standpoint today. July 16: No labs drawn today. Continue per consultants. Stable from renal standpoint of view. July 15: Labs reviewed. Renal parameters stable. July 14: No labs from today. Continue per current management. Check labs tomorrow. July 13: No labs drawn today. Stable from renal standpoint of view. July 12: Today's labs pending. Medication list reviewed. Continue per current management and consultants. July 11: Labs reviewed. Renal parameters stable. July 10: Labs reviewed. Renal parameters electrolytes stable. Continue per consultants. July 09: Labs reviewed. Renal parameters and electrolytes stable. Continue per ID and pulmonary. Subjective ROS Limited/Unobtainable: Yes Objective Objective Last 24 Hour Vital Signs Date Time Temp Pulse Resp B/P (MAP) Pulse Ox O2 Delivery O2 Flow Rate FiO2 07/21/20 08:00 98.1 111 36 129/85 (100) 93 07/21/20 08:00 Bi-pap 07/21/20 08:00 100 07/21/20 08:00 128 07/21/20 07:45 117 32 93 100 07/21/20 07:45 93 Bi-Pap 100 07/21/20 04:00 111 07/21/20 04:00 Bi-pap 07/21/20 04:00 101.7 115 32 144/86 (105) 93 07/21/20 04:00 100 07/21/20 03:38 117 34 92 100 07/21/20 00:00 Bi-pap 07/21/20 00:00 100 07/21/20 00:00 119 07/21/20 00:00 100.4 100 38 142/93 (109) 93 07/20/20 23:03 119 31 92 100 07/20/20 20:00 Bi-pap 07/20/20 20:00 106 07/20/20 20:00 100 07/20/20 20:00 97.2 118 38 138/89 (105) 07/20/20 19:37 93 Bi-Pap 100 07/20/20 19:36 114 33 93 100 07/20/20 16:00 100 07/20/20 16:00 Bi-pap 07/20/20 16:00 111 07/20/20 16:00 97.5 105 42 142/95 (111) 93 07/20/20 15:01 109 39 92 100 07/20/20 13:21 112 145/98 Intake and Output 07/20/20 07/21/20 19:00 07:00 Intake Total 450 ml 50 ml Balance 450 ml 50 ml IV Total 450 ml 50 ml # Voids 2 2 # Bowel Movements 1 1 No CHEM panel done today laboratory Tests 07/20/20 15:30: D-Dimer 3.40H 07/20/20 18:16: POC Whole Blood Glucose 187H 07/20/20 21:16: POC Whole Blood Glucose 209H 07/21/20 09:29: POC Whole Blood Glucose 241H 07/21/20 12:35: POC Whole Blood Glucose 227H Height (Feet): 5 Height (Inches): 3.00 Weight (Pounds): 162 General Appearance: no apparent distress EENT: other - On BiPAP Cardiovascular: tachycardia Respiratory/Chest: decreased breath sounds Abdomen: distended Objective No change Anurag Bridges MD Jul 21, 2020 13:01
--- NOTE | 2020-07-21 13:45 | Diagnostic Imaging Report ---
Indication: Dyspnea Technique: One view of the chest Comparison: 07/18/2020 Findings: Unchanged bilateral infiltrates, allowing for differences in technique. The heart is borderline enlarged. The pleural spaces are clear. Impression: Unchanged, over 3 days, findings as above.
[2020-07-21 16:00] VITALS: BP 122/83
--- NOTE | 2020-07-21 19:30 | NUR ---
NURSE NOTES: RN received report from day RN. Patient resting in bed on bipap with setting 18/12 with FIO2 @100%. Patient 02 sats 93%. Patient denies needs at this time. RN will assess and give medications as ordered. RN will continue to monitor.
[2020-07-21 20:00] VITALS: BP 119/76
[2020-07-22] VITALS: BP 116/76
--- NOTE | 2020-07-22 00:35 | NUR ---
NURSE NOTES: Patient vitals stable at this time. Patient needed to void via bedpan/ Patient was cleaned up and absorbent pad changed and patient was repositioned. Patient denies any other needs. RN will continue to monitor.
[2020-07-22 04:00] VITALS: BP 135/92
--- NOTE | 2020-07-22 05:30 | NUR ---
NURSE NOTES: Recieved patient from LIANA Nicholas. under the care of Dr. Malcolm. Will continue with current plan of care.
[2020-07-22 05:56] LABS: HEMOGLOBIN 11.4 G/DL (12.0-16.0); MEAN CORPUSCULAR VOLUME 91 FL (80-99); PLATELET COUNT 176 K/UL (150-450); RED BLOOD COUNT 3.97 M/UL (4.20-5.40); RED CELL DISTRIBUTION WIDTH 12.8 % (11.6-14.8); WHITE BLOOD COUNT 14.5 K/UL (4.8-10.8)
[2020-07-22 06:15] LABS: ALANINE AMINOTRANSFERASE 13 U/L (12-78); ALBUMIN 1.8 G/DL (3.4-5.0); ALBUMIN/GLOBULIN RATIO 0.3 (1.0-2.7); ALKALINE PHOSPHATASE 75 U/L (46-116); ANION GAP 7 mmol/L (5-15); ASPARTATE AMINO TRANSFERASE 20 U/L (15-37); BILIRUBIN,TOTAL 0.4 MG/DL (0.2-1.0); BLOOD UREA NITROGEN 26 mg/dL (7-18); CALCIUM 9.1 MG/DL (8.5-10.1); CARBON DIOXIDE 29 MMOL/L (21-32); CHLORIDE 112 MMOL/L (98-107); CREATININE 0.8 MG/DL (0.55-1.30); PHOSPHORUS 2.7 MG/DL (2.5-4.9); SODIUM 148 MMOL/L (136-145)
[2020-07-22] MEDS: NovoLOG Insulin Flexpen SUBQ SCH ×4 (06:29→20:40)
--- NOTE | 2020-07-22 07:00 | NUR ---
NURSE NOTES: Received report from LIANA Velasquez. Patient is AO x3 in bed asleep at this time. Patient on Bipap with setting 18/12 FiO2 100%. No pain or discomfort noted at this time. Patient with R hand Iv access, patent and intact. Bed in lowest position, locked with side rails x2 up. Call light within reach.
--- NOTE | 2020-07-22 07:00 | NUR ---
NURSE HAND-OFF REPORT: Important Events on Shift:- Patient Status: Stable Diet: NPO Pending Orders: Pending Results/Labs: Pending MD notification: Latest Vital Signs: Temperature 98.1 , Pulse 106 , B/P 135 /92 , Respiratory Rate 30 , O2 SAT 92 , Nasal Cannula, O2 Flow Rate 15.0 . Vital Sign Comment: WNL, Hypoxic EKG Rhythm: Sinus Tachycardia Rhythm change?: N MD Notified?: N - MD Response: Latest Plaza Fall Score: 30 Fall Risk: Medium Risk Safety Measures: Call light Within Reach, Bed Alarm Zone 3, Side Rails Side Rails x2, Bed position Low and Locked. Fall Precautions: Yellow Socks Report given to LIANA Negron.
--- NOTE | 2020-07-22 07:08 | NUR ---
RESPIRATORY NOTE: PT received on BiPAP: 19/05 RR:12, 100%. Alarms are on and audible. PT is on facial mask with no facial wounds noted. Foam tape is in place. circuit and mask are secure and out of the way. PT'S current RR is increased and in the low 30's. Will continue to closely monitor.
[2020-07-22 08:00] VITALS: BP 127/90
[2020-07-22] MEDS: Solu-MEDROL 40mg Inj IVP SCH ×3 (08:12→17:56)
[2020-07-22] MEDS: Docusate 100mg cap ORAL SCH ×2 (08:13→20:29)
[2020-07-22] MEDS: Losartan 25mg tab ORAL SCH (08:13)
[2020-07-22] MEDS: Enoxaparin 80mg Inj SUBQ SCH (08:14)
[2020-07-22] MEDS: Levemir Flexpen SUBQ SCH (09:00)
--- NOTE | 2020-07-22 11:26 | Pulmonology Progress Note ---
Subjective ROS Limited/Unobtainable: Yes Interval Events: on BiPAP; desaturates rapidly on NRB Constitutional: Reports: no symptoms HEENT: Repors: no symptoms Respiratory: Reports: shortness of breath Gastrointestinal/Abdominal: Reports: no symptoms Psychiatric: Reports: no symptoms Skin: Reports: no symptoms Musculoskeletal: Reports: no symptoms Allergies: Coded Allergies: No Known Allergies (Unverified , 07/07/20) Objective Last 24 Hour Vital Signs Date Time Temp Pulse Resp B/P (MAP) Pulse Ox O2 Delivery O2 Flow Rate FiO2 07/22/20 08:13 128/84 07/22/20 08:00 105 07/22/20 08:00 Bi-pap 07/22/20 08:00 100 07/22/20 08:00 97.8 105 23 127/90 (102) 93 07/22/20 07:08 92 Bi-Pap 100 07/22/20 07:08 106 30 92 100 07/22/20 04:00 Bi-pap 07/22/20 04:00 104 07/22/20 04:00 98.1 115 22 135/92 (106) 93 07/22/20 04:00 100 07/22/20 03:14 109 30 92 100 07/22/20 00:00 100 07/22/20 00:00 93 07/22/20 00:00 97.5 98 22 116/76 (89) 93 07/22/20 00:00 Bi-pap 07/21/20 22:37 102 31 94 100 07/21/20 20:00 104 07/21/20 20:00 98.4 99 24 119/76 (90) 94 07/21/20 20:00 Bi-pap 07/21/20 20:00 100 07/21/20 19:18 96 29 95 100 07/21/20 19:18 95 Bi-Pap 100 07/21/20 16:00 101 07/21/20 16:00 Bi-pap 07/21/20 16:00 97.9 102 36 122/83 (96) 93 07/21/20 16:00 100 07/21/20 15:00 105 32 93 100 07/21/20 12:00 104 07/21/20 12:00 Bi-pap 07/21/20 12:00 100 07/21/20 12:00 98.4 109 33 134/88 (103) 93 Intake and Output 07/21/20 07/22/20 19:00 07:00 Intake Total 600 ml 600 ml Balance 600 ml 600 ml Intake Oral 50 ml IV Total 600 ml 550 ml # Voids 1 1 General Appearance: no acute distress HEENT: normocephalic Respiratory: decreased breath sounds Cardiovascular: normal peripheral pulses Abdomen: normal bowel sounds Microbiology Date/Time Source Procedure Growth Status 07/20/20 15:55 Blood Blood Culture - Preliminary NO GROWTH AFTER 24 HOURS Resulted 07/20/20 15:20 Blood Blood Culture - Preliminary NO GROWTH AFTER 24 HOURS Resulted Laboratory Tests 07/21/20 12:35: POC Whole Blood Glucose 227H 07/21/20 16:31: POC Whole Blood Glucose 168H 07/21/20 16:40: Pro-B-Type Natriuretic Peptide 339H 07/21/20 20:47: POC Whole Blood Glucose 182H 07/22/20 04:20: White Blood Count 14.5H, Red Blood Count 3.97L, Hemoglobin 11.4L, Hematocrit 36.0L, Mean Corpuscular Volume 91, Mean Corpuscular Hemoglobin 28.6, Mean Corpuscular Hemoglobin Concent 31.6L, Red Cell Distribution Width 12.8, Platelet Count 176, Mean Platelet Volume 8.5, Neutrophils (%) (Auto) , Lymphocytes (%) (Auto) , Monocytes (%) (Auto) , Eosinophils (%) (Auto) , Basophils (%) (Auto) , Differential Total Cells Counted 100, Neutrophils % (Manual) 81H, Lymphocytes % (Manual) 13L, Monocytes % (Manual) 6, Eosinophils % (Manual) 0, Basophils % (Manual) 0, Band Neutrophils 0, Platelet Estimate Adequate, Platelet Morphology Normal, Hypochromasia 1+, Sodium Level 148H, Potassium Level 4.0, Chloride Level 112H, Carbon Dioxide Level 29, Anion Gap 7, Blood Urea Nitrogen 26H, Creatinine 0.8, Estimat Glomerular Filtration Rate > 60, Glucose Level 178H, Calcium Level 9.1, Phosphorus Level 2.7, Magnesium Level 2.4, Total Bilirubin 0.4, Aspartate Amino Transf (AST/SGOT) 20, Alanine Aminotransferase (ALT/SGPT) 13, Alkaline Phosphatase 75, C-Reactive Protein, Quantitative 14.9H, Pro-B-Type Natriuretic Peptide 185H, Total Protein 7.1, Albumin 1.8L, Globulin 5.3, Albumin/Globulin Ratio 0.3L 07/22/20 06:00: POC Whole Blood Glucose [Pending] Current Medications Medications (Trade) Dose Ordered Sig/Marian Route PRN Reason Start Time Stop Time Status Last Admin Dose Admin Acetaminophen (Tylenol) 650 mg Q4H PRN RECTAL Temp >100.5 07/18/20 18:30 08/17/20 18:29 07/18/20 18:40 Acetaminophen (Tylenol) 650 mg Q6H PRN ORAL For Pain 07/07/20 15:45 08/06/20 15:44 07/16/20 09:45 Acetaminophen (Tylenol) 650 mg Q6H PRN ORAL FEVER 07/07/20 16:15 08/06/20 16:14 07/18/20 05:48 Benzonatate (Tessalon Perles) 100 mg TIDPRN PRN ORAL For Cough 07/18/20 18:30 08/17/20 18:29 Dextrose 1,000 ml @ 50 mls/hr Q20H IV 07/20/20 13:30 08/19/20 13:29 07/22/20 05:35 Dextrose (Dextrose 50%) 25 ml Q30M PRN IV Hypoglycemia 07/07/20 15:45 10/05/20 15:44 Dextrose (Dextrose 50%) 50 ml Q30M PRN IV Hypoglycemia 07/07/20 15:45 10/05/20 15:44 Docusate Sodium (Colace) 100 mg EVERY 12 HOURS ORAL 07/12/20 21:00 08/08/20 08:59 07/22/20 08:13 Enoxaparin Sodium (Lovenox) 80 mg DAILY SUBQ 07/08/20 09:00 10/06/20 08:59 07/22/20 08:14 Famotidine (Pepcid I.v.) 20 mg Q12HR IVP 07/20/20 09:00 08/19/20 08:59 07/22/20 08:13 Insulin Aspart (NovoLOG) BEFORE MEALS AND HS SUBQ 07/07/20 16:30 10/05/20 16:29 07/22/20 06:29 Insulin Detemir (Levemir) 7 units DAILY SUBQ 07/20/20 14:00 10/18/20 13:59 07/22/20 09:00 Iohexol (OMNIPAQUE-300 100ml) 100 ml ONCE PRN INJ radiology procedure 07/21/20 11:45 07/23/20 11:44 Losartan Potassium (Cozaar) 25 mg DAILY ORAL 07/11/20 11:00 08/10/20 10:59 07/22/20 08:13 Methylprednisolone Sodium Succinate (Solu-MEDROL) 20 mg DAILY IVP 07/21/20 09:00 10/19/20 08:59 07/22/20 08:12 Assessment/Plan Assessment/Plan 1. COVID-19 pneumonia. - COVID-19 PCR positive (07/07) -> continue isolation - s/p remdexsivir - s/p azithromycin - CXR (07/13) no significant change 2. Hypoxemic respiratory distress - s/p decadron (07/08-07/17) - now on Solu-Medrol - desaturated on BiPAP 17/01, 100% FiO2 -> now 19/05 - Encourage proning 3. Hypertension. 4. Diabetes mellitus. 5. DVT ppx - on Lovenox - f/u D-dimer (07/20) more elevated + tachycardia-> will order CTA chest given S/Sx of PE -> Pt not candidate for CTA chest or V/Q scan given her high flow oxygen requirement; continue full dose Lovenox and monitor 6. Sputum Cx shows pseudomonas and cony - on Abx 7. Suspect bacterial infection given leukocytosis - ordered fungal culture, BCx (07/20) Discussed with bedside RN. Vu Edward MD Jul 22, 2020 11:26
[2020-07-22 12:00] VITALS: BP 136/80
--- NOTE | 2020-07-22 12:42 | Nephrology Progress Note ---
Assessment/Plan Problem List: (1) Hyponatremia (2) Hypoxia (3) Pneumonitis (4) Acute respiratory failure due to COVID-19 (5) DMII (diabetes mellitus, type 2) (6) HTN (hypertension) Assessment Hyponatremia, improved with saline infusion COVID-19 infection Pneumonia, acute respiratory failure, hypoxia Diabetes mellitus Hypertension Plan July 22: Labs reviewed. Stable renal parameters. Continue per consultants. July 21: No CHEM panel drawn today. Stable from renal standpoint of view. Blood pressure stable. July 20: IV changed to D5W 50 cc an hour. Renal parameters stable. Continue per consultants. July 19: Pulmonary status remains unstable. Stable from renal standpoint of view. July 18: Labs reviewed. Stable renal parameters and electrolytes. Continue per consultants. July 17: No labs drawn today. Remains stable from renal standpoint today. July 16: No labs drawn today. Continue per consultants. Stable from renal standpoint of view. July 15: Labs reviewed. Renal parameters stable. July 14: No labs from today. Continue per current management. Check labs tomorrow. July 13: No labs drawn today. Stable from renal standpoint of view. July 12: Today's labs pending. Medication list reviewed. Continue per current management and consultants. July 11: Labs reviewed. Renal parameters stable. July 10: Labs reviewed. Renal parameters electrolytes stable. Continue per consultants. July 09: Labs reviewed. Renal parameters and electrolytes stable. Continue per ID and pulmonary. Subjective ROS Limited/Unobtainable: Yes Objective Objective Last 24 Hour Vital Signs Date Time Temp Pulse Resp B/P (MAP) Pulse Ox O2 Delivery O2 Flow Rate FiO2 07/22/20 12:00 100 07/22/20 12:00 Bi-pap 07/22/20 12:00 98.0 107 24 136/80 (98) 94 07/22/20 12:00 100 07/22/20 11:14 98 33 92 100 07/22/20 08:13 128/84 07/22/20 08:00 105 07/22/20 08:00 Bi-pap 07/22/20 08:00 100 07/22/20 08:00 97.8 105 23 127/90 (102) 93 07/22/20 07:08 92 Bi-Pap 100 07/22/20 07:08 106 30 92 100 07/22/20 04:00 Bi-pap 07/22/20 04:00 104 07/22/20 04:00 98.1 115 22 135/92 (106) 93 07/22/20 04:00 100 07/22/20 03:14 109 30 92 100 07/22/20 00:00 100 07/22/20 00:00 93 07/22/20 00:00 97.5 98 22 116/76 (89) 93 07/22/20 00:00 Bi-pap 07/21/20 22:37 102 31 94 100 07/21/20 20:00 104 07/21/20 20:00 98.4 99 24 119/76 (90) 94 07/21/20 20:00 Bi-pap 07/21/20 20:00 100 07/21/20 19:18 96 29 95 100 07/21/20 19:18 95 Bi-Pap 100 07/21/20 16:00 101 07/21/20 16:00 Bi-pap 07/21/20 16:00 97.9 102 36 122/83 (96) 93 07/21/20 16:00 100 07/21/20 15:00 105 32 93 100 Intake and Output 07/21/20 07/22/20 19:00 07:00 Intake Total 600 ml 600 ml Balance 600 ml 600 ml Intake Oral 50 ml IV Total 600 ml 550 ml # Voids 1 1 Current Medications Medications (Trade) Dose Ordered Sig/Marian Route PRN Reason Start Time Stop Time Status Last Admin Dose Admin Acetaminophen (Tylenol) 650 mg Q4H PRN RECTAL Temp >100.5 07/18/20 18:30 08/17/20 18:29 07/18/20 18:40 Acetaminophen (Tylenol) 650 mg Q6H PRN ORAL For Pain 07/07/20 15:45 08/06/20 15:44 07/16/20 09:45 Acetaminophen (Tylenol) 650 mg Q6H PRN ORAL FEVER 07/07/20 16:15 08/06/20 16:14 07/18/20 05:48 Benzonatate (Tessalon Perles) 100 mg TIDPRN PRN ORAL For Cough 07/18/20 18:30 08/17/20 18:29 Cefepime HCl 2 gm/ Dextrose 55 ml @ 110 mls/hr Q12HR IVPB 07/22/20 13:00 2/27/21 12:59 Dextrose (Dextrose 50%) 25 ml Q30M PRN IV Hypoglycemia 07/07/20 15:45 10/05/20 15:44 Dextrose (Dextrose 50%) 50 ml Q30M PRN IV Hypoglycemia 07/07/20 15:45 10/05/20 15:44 Docusate Sodium (Colace) 100 mg EVERY 12 HOURS ORAL 07/12/20 21:00 08/08/20 08:59 07/22/20 08:13 Enoxaparin Sodium (Lovenox) 80 mg DAILY SUBQ 07/08/20 09:00 10/06/20 08:59 07/22/20 08:14 Famotidine (Pepcid I.v.) 20 mg Q12HR IVP 07/20/20 09:00 08/19/20 08:59 07/22/20 08:13 Fluconazole/ Sodium Chloride 200 ml @ 100 mls/hr Q24H IV 07/22/20 14:00 07/29/20 13:59 Furosemide (Lasix) 40 mg DAILY IV 07/22/20 12:00 08/21/20 11:59 07/22/20 12:07 Insulin Aspart (NovoLOG) BEFORE MEALS AND HS SUBQ 07/07/20 16:30 10/05/20 16:29 07/22/20 11:30 Insulin Detemir (Levemir) 7 units DAILY SUBQ 07/20/20 14:00 10/18/20 13:59 07/22/20 09:00 Iohexol (OMNIPAQUE-300 100ml) 100 ml ONCE PRN INJ radiology procedure 07/21/20 11:45 07/23/20 11:44 Losartan Potassium (Cozaar) 25 mg DAILY ORAL 07/11/20 11:00 08/10/20 10:59 07/22/20 08:13 Methylprednisolone Sodium Succinate (Solu-MEDROL) 20 mg EVERY 6 HOURS IVP 07/22/20 12:00 10/19/20 08:59 07/22/20 12:07 Laboratory Tests 07/21/20 16:31: POC Whole Blood Glucose 168H 07/21/20 16:40: Pro-B-Type Natriuretic Peptide 339H 07/21/20 20:47: POC Whole Blood Glucose 182H 07/22/20 04:20: Pro-B-Type Natriuretic Peptide 185H, White Blood Count 14.5H, Red Blood Count 3.97L, Hemoglobin 11.4L, Hematocrit 36.0L, Mean Corpuscular Volume 91, Mean Corpuscular Hemoglobin 28.6, Mean Corpuscular Hemoglobin Concent 31.6L, Red Cell Distribution Width 12.8, Platelet Count 176, Mean Platelet Volume 8.5, Neutrophils (%) (Auto) , Lymphocytes (%) (Auto) , Monocytes (%) (Auto) , Eosinophils (%) (Auto) , Basophils (%) (Auto) , Differential Total Cells Counted 100, Neutrophils % (Manual) 81H, Lymphocytes % (Manual) 13L, Monocytes % (Manual) 6, Eosinophils % (Manual) 0, Basophils % (Manual) 0, Band Neutrophils 0, Platelet Estimate Adequate, Platelet Morphology Normal, Hypochromasia 1+, Sodium Level 148H, Potassium Level 4.0, Chloride Level 112H, Carbon Dioxide Le darrel 29, Anion Gap 7, Blood Urea Nitrogen 26H, Creatinine 0.8, Estimat Glomerular Filtration Rate > 60, Glucose Level 178H, Calcium Level 9.1, Phosphorus Level 2.7, Magnesium Level 2.4, Total Bilirubin 0.4, Aspartate Amino Transf (AST/SGOT) 20, Alanine Aminotransferase (ALT/SGPT) 13, Alkaline Phosphatase 75, C-Reactive Protein, Quantitative 14.9H, Total Protein 7.1, Albumin 1.8L, Globulin 5.3, Albumin/Globulin Ratio 0.3L 07/22/20 06:00: POC Whole Blood Glucose [Pending] Height (Feet): 5 Height (Inches): 3.00 Weight (Pounds): 162 General Appearance: moderate distress EENT: other - On BiPAP Cardiovascular: tachycardia Respiratory/Chest: decreased breath sounds Abdomen: distended Objective No change Anurag Bridges MD Jul 22, 2020 12:42
[2020-07-22] MEDS: Cefepime HCl 2 GM in D5W 55 ML IVPB SCH ×2 (13:40→20:29)
[2020-07-22] MEDS: FLUCONAZOLE 400 MG/200 ML IV SCH (14:39)
[2020-07-22 16:00] VITALS: BP 140/84
--- NOTE | 2020-07-22 18:06 | Cardiology Progress Note ---
Assessment/Plan Assessment/Plan 1. COVID-19 viral PNA s/p remdesivir and dexamethasone WBCs trending upward 2. Respiratory failure 2/2 acute PNA O2 dependent 3. HFpEF acute on chronic diastolic HF with preserved EF EF 65%, compensated BNP negative 4. DMII 5. GERD Echo negative for acute decompensated HF. Diuresis as needed with IV Lasix. SBP and HR controlled. Subjective ROS Limited/Unobtainable: Yes Subjective In isolation, no distress Objective Last 24 Hour Vital Signs Date Time Temp Pulse Resp B/P (MAP) Pulse Ox O2 Delivery O2 Flow Rate FiO2 07/22/20 16:00 97 07/22/20 16:00 Bi-pap 07/22/20 16:00 98.6 97 22 140/84 (102) 93 07/22/20 16:00 100 07/22/20 14:45 98 32 93 100 07/22/20 12:00 100 07/22/20 12:00 Bi-pap 07/22/20 12:00 98.0 107 24 136/80 (98) 94 07/22/20 12:00 100 07/22/20 11:14 98 33 92 100 07/22/20 08:13 128/84 07/22/20 08:00 105 07/22/20 08:00 Bi-pap 07/22/20 08:00 100 07/22/20 08:00 97.8 105 23 127/90 (102) 93 07/22/20 07:08 92 Bi-Pap 100 07/22/20 07:08 106 30 92 100 07/22/20 04:00 Bi-pap 07/22/20 04:00 104 07/22/20 04:00 98.1 115 22 135/92 (106) 93 07/22/20 04:00 100 07/22/20 03:14 109 30 92 100 07/22/20 00:00 100 07/22/20 00:00 93 07/22/20 00:00 97.5 98 22 116/76 (89) 93 07/22/20 00:00 Bi-pap 07/21/20 22:37 102 31 94 100 07/21/20 20:00 104 07/21/20 20:00 98.4 99 24 119/76 (90) 94 07/21/20 20:00 Bi-pap 2/19/21 20:00 100 07/21/20 19:18 96 29 95 100 07/21/20 19:18 95 Bi-Pap 100 General Appearance: no apparent distress EENT: PERRL/EOMI Neck: no JVD Rhythm: NSR Cardiovascular: regular rhythm Respiratory/Chest: no accessory muscle use, decreased breath sounds Abdomen: soft Neurologic: disoriented Intake and Output 07/21/20 07/22/20 19:00 07:00 Intake Total 600 ml 600 ml Balance 600 ml 600 ml Intake Oral 50 ml IV Total 600 ml 550 ml # Voids 1 1 Laboratory Tests Test 07/21/20 20:47 07/22/20 04:20 07/22/20 06:00 POC Whole Blood Glucose 182 MG/DL (74-106) H Pending White Blood Count 14.5 K/UL (4.8-10.8) H Red Blood Count 3.97 M/UL (4.20-5.40) L Hemoglobin 11.4 G/DL (12.0-16.0) L Hematocrit 36.0 % (37.0-47.0) L Mean Corpuscular Volume 91 FL (80-99) Mean Corpuscular Hemoglobin 28.6 PG (27.0-31.0) Mean Corpuscular Hemoglobin Concent 31.6 G/DL (32.0-36.0) L Red Cell Distribution Width 12.8 % (11.6-14.8) Platelet Count 176 K/UL (150-450) Mean Platelet Volume 8.5 FL (6.5-10.1) Neutrophils (%) (Auto) % (45.0-75.0) Lymphocytes (%) (Auto) % (20.0-45.0) Monocytes (%) (Auto) % (1.0-10.0) Eosinophils (%) (Auto) % (0.0-3.0) Basophils (%) (Auto) % (0.0-2.0) Differential Total Cells Counted 100 Neutrophils % (Manual) 81 % (45-75) H Lymphocytes % (Manual) 13 % (20-45) L Monocytes % (Manual) 6 % (1-10) Eosinophils % (Manual) 0 % (0-3) Basophils % (Manual) 0 % (0-2) Band Neutrophils 0 % (0-8) Platelet Estimate Adequate Platelet Morphology Normal Hypochromasia 1+ Sodium Level 148 MMOL/L (136-145) H Potassium Level 4.0 MMOL/L (3.5-5.1) Chloride Level 112 MMOL/L (98-107) H Carbon Dioxide Level 29 MMOL/L (21-32) Anion Gap 7 mmol/L (5-15) Blood Urea Nitrogen 26 mg/dL (7-18) H Creatinine 0.8 MG/DL (0.55-1.30) Estimat Glomerular Filtration Rate > 60 mL/min (>60) Glucose Level 178 MG/DL (74-106) H Calcium Level 9.1 MG/DL (8.5-10.1) Phosphorus Level 2.7 MG/DL (2.5-4.9) Magnesium Level 2.4 MG/DL (1.8-2.4) Total Bilirubin 0.4 MG/DL (0.2-1.0) Aspartate Amino Transf (AST/SGOT) 20 U/L (15-37) Alanine Aminotransferase (ALT/SGPT) 13 U/L (12-78) Alkaline Phosphatase 75 U/L (46-116) C-Reactive Protein, Quantitative 14.9 mg/dL (0.00-0.90) H Pro-B-Type Natriuretic Peptide 185 pg/mL (0-125) H Total Protein 7.1 G/DL (6.4-8.2) Albumin 1.8 G/DL (3.4-5.0) L Globulin 5.3 g/dL Albumin/Globulin Ratio 0.3 (1.0-2.7) L Microbiology Date/Time Source Procedure Growth Status 07/20/20 15:55 Blood Blood Culture - Preliminary NO GROWTH AFTER 24 HOURS Resulted 07/20/20 15:20 Blood Blood Culture - Preliminary NO GROWTH AFTER 24 HOURS Resulted Blanca Lobato PA-C Jul 22, 2020 18:06
--- NOTE | 2020-07-22 19:00 | NUR ---
NURSE HAND-OFF REPORT: Important Events on Shift:NA Patient Status: Full Code Diet: NPO Pending Orders: NA Pending Results/Labs:NA Pending MD notification:NA Latest Vital Signs: Temperature 98.6 , Pulse 84 , B/P 140 /84 , Respiratory Rate 29 , O2 SAT 92 , Nasal Cannula, O2 Flow Rate 15.0 . Vital Sign Comment: de sats easily EKG Rhythm: Sinus Rhythm Rhythm change?: N MD Notified?: N - MD Response: Latest Plaza Fall Score: 30 Fall Risk: Medium Risk Safety Measures: Call light Within Reach, Bed Alarm Zone 3, Side Rails Side Rails x2, Bed position Low and Locked. Fall Precautions: Yellow Socks Report given to LIANA Valverde.
--- NOTE | 2020-07-22 19:38 | NUR ---
NURSE NOTES: Received report from LIANA Kennedy. AAO x 4, on Bipap 18/12 Fio2 100% and O2 sat 95% noted. IV site intact and running D5W. Pt is on NPO. Denies pain or discomfort. Bed locked, lowest position, alarm on, call light within reach. Will continue to monitor.
[2020-07-22 20:00] VITALS: BP 130/90
--- NOTE | 2020-07-22 23:10 | General Progress Note ---
Subjective Allergies: Coded Allergies: No Known Allergies (Unverified , 07/07/20) Objective Last 24 Hour Vital Signs Date Time Temp Pulse Resp B/P (MAP) Pulse Ox O2 Delivery O2 Flow Rate FiO2 07/22/20 21:00 100 07/22/20 20:00 87 07/22/20 20:00 97.7 100 34 130/90 (103) 93 07/22/20 20:00 Bi-pap 07/22/20 19:18 84 29 92 100 07/22/20 19:18 92 Bi-Pap 100 07/22/20 16:00 97 07/22/20 16:00 Bi-pap 07/22/20 16:00 98.6 97 22 140/84 (102) 93 07/22/20 16:00 100 07/22/20 14:45 98 32 93 100 07/22/20 12:00 100 07/22/20 12:00 Bi-pap 07/22/20 12:00 98.0 107 24 136/80 (98) 94 07/22/20 12:00 100 07/22/20 11:14 98 33 92 100 07/22/20 08:13 128/84 07/22/20 08:00 105 07/22/20 08:00 Bi-pap 07/22/20 08:00 100 07/22/20 08:00 97.8 105 23 127/90 (102) 93 07/22/20 07:08 92 Bi-Pap 100 07/22/20 07:08 106 30 92 100 07/22/20 04:00 Bi-pap 07/22/20 04:00 104 07/22/20 04:00 98.1 115 22 135/92 (106) 93 07/22/20 04:00 100 07/22/20 03:14 109 30 92 100 07/22/20 00:00 100 07/22/20 00:00 93 07/22/20 00:00 97.5 98 22 116/76 (89) 93 07/22/20 00:00 Bi-pap Intake and Output 07/21/20 07/22/20 19:00 07:00 Intake Total 600 ml 600 ml Balance 600 ml 600 ml Intake Oral 50 ml IV Total 600 ml 550 ml # Voids 1 1 Laboratory Tests 07/22/20 04:20: White Blood Count 14.5H, Red Blood Count 3.97L, Hemoglobin 11.4L, Hematocrit 36.0L, Mean Corpuscular Volume 91, Mean Corpuscular Hemoglobin 28.6, Mean Corpuscular Hemoglobin Concent 31.6L, Red Cell Distribution Width 12.8, Platelet Count 176, Mean Platelet Volume 8.5, Neutrophils (%) (Auto) , Lymphocytes (%) (Auto) , Monocytes (%) (Auto) , Eosinophils (%) (Auto) , Basophils (%) (Auto) , Differential Total Cells Counted 100, Neutrophils % (Manual) 81H, Lymphocytes % (Manual) 13L, Monocytes % (Manual) 6, Eosinophils % (Manual) 0, Basophils % (Manual) 0, Band Neutrophils 0, Platelet Estimate Adequate, Platelet Morphology Normal, Hypochromasia 1+, Sodium Level 148H, Potassium Level 4.0, Chloride Level 112H, Carbon Dioxide Level 29, Anion Gap 7, Blood Urea Nitrogen 26H, Creatinine 0.8, Estimat Glomerular Filtration Rate > 60, Glucose Level 178H, Calcium Level 9.1, Phosphorus Level 2.7, Magnesium Level 2.4, Total Bilirubin 0.4, Aspartate Amino Transf (AST/SGOT) 20, Alanine Aminotransferase (ALT/SGPT) 13, Alkaline Phosphatase 75, C-Reactive Protein, Quantitative 14.9H, Pro-B-Type Natriuretic Peptide 185H, Total Protein 7.1, Albumin 1.8L, Globulin 5.3, Albumin/Globulin Ratio 0.3L 07/22/20 06:00: POC Whole Blood Glucose [Pending] 07/22/20 20:36: POC Whole Blood Glucose 204H Height (Feet): 5 Height (Inches): 3.00 Weight (Pounds): 162 Assessment/Plan Status: stable Assessment/Plan: S, O: I am feeling more sob, seems in moderate sob, no severe pain , on BIPAP PHYSICAL EXAMINATION: HEAD AND NECK: Atraumatic and normocephalic. CHEST: Diffuse bronchial breathing sounds. HEART: S1 and S2. Regular rate and rhythm. ABDOMEN: Soft. No organomegaly. MUSCULOSKELETAL: No gross lateralized motor deficit. Meds: reviewed and reconciled in the chart ASSESSMENT: 1. Hypoxemic respiratory failure, on BIPAP 2. COVID-19 pneumonia- Pseudoman and Candidia 3. Diabetes type 2. 4. Hyponatremia 5. GI and DVT prophylaxis. PLAN OF CARE: I left a VM for patient's brother in law, per her request. on 1334 hours on Jul 8 I spoke with patient's brother in law, I updated him about overall cnd of patient . Agreed with current management. given persistent high level of O2 requirement. I will repeat CXR No, interval imaging changes. notes from pulmonary reviewed given persistent high level of O2 requirement and new positive sputum culture; I will repeat CXR on jul 17 Worsening lung infiltration , grave prognosis. DC steroid Jul 20 I spoke to the patient's brother in law, per her request. on 1125 hours on Jul 21. Notified based on [place] of prognosis visit by family member is encouraged Discussed the antibiotic regiments with Pulmonary. Adequate coverage at this time. Agree that Further Diagnostic workup to rule out PE is not feasible, continue with full dose ATC for now Gail Malcolm MD Jul 22, 2020 23:10
--- NOTE | 2020-07-22 23:56 | NUR ---
NURSE NOTES: Pt is sleeping and tolerating current bipap setting with O2 sat 92%
[2020-07-23] VITALS: BP 131/88
[2020-07-23] MEDS: Solu-MEDROL 40mg Inj IVP SCH ×5 (00:16→23:50)
[2020-07-23 04:00] VITALS: BP 128/88
--- NOTE | 2020-07-23 05:34 | NUR ---
NURSE NOTES: Bed bath given and tolerating Bipap setting. O2 91% noted.
[2020-07-23] MEDS: NovoLOG Insulin Flexpen SUBQ SCH ×3 (05:59→17:54)
--- NOTE | 2020-07-23 07:38 | NUR ---
NURSE NOTES: Received report from Michelle GAINES.
--- NOTE | 2020-07-23 07:44 | NUR ---
RD ASSESSMENT & RECOMMENDATIONS SEE CARE ACTIVITY FOR COMPLETE ASSESSMENT DAILY ESTIMATED NEEDS: Needs based on DM, pulmonary/ 57.6kg abw 25-30 kcals/kg 5701-8859 total kcals 1-1.5 g protein/kg 58-86 g total protein 25-30 mL/kg 5541-5891 total fluid mLs NUTRITION DIAGNOSIS: Altered nutrition related lab values R/T diabetes and steroidal med as evidenced by A1C 6.9 w/ elev POC (138-204), now on solumedrol. CURRENT DIET:CCHO MED, mech soft chopped-> NOW NPO PO DIET RECOMMENDATIONS: CCHO MED/ texture as tolerated as medically able TPN Comment: TPN as needed w/ continued NPO status d/t Bipap. ADDITIONAL RECOMMENDATIONS: * Calibrated bedscale wt * Monitor respiratory status, PO tolerance - on NRB mask at this time * Glucerna BID w/ variable intake- Now NPO * Monitor BGs closely while on Decadron, need for additional hypoglycemics. * Now on bipap/ NPO-> monitor need for TPN w/ prolonged NPO status
--- NOTE | 2020-07-23 07:47 | NUR ---
RESPIRATORY NOTE: PT received on BiPAP: 19/05 RR:12, 100%. Alarms are on and audible. PT is on facial mask with no facial wounds noted. Foam tape is in place. circuit and mask are secure and out of the way. PT'S current RR is increased 36-39bpm. Mask was inspected fro positioning and it is properly placed. Pulse ox sensor also was checked; PT current low saturation of 88 is accurate. PT was repositioned with no improvement in saturation. Rhonchi, diminished BS found upon auscultation. Cherie GAINES is aware. Will continue to closely monitor.
--- NOTE | 2020-07-23 07:53 | NUR ---
NURSE HAND-OFF REPORT: Important Events on Shift:Bipap O2 sat 88-90% Patient Status: Diet: NPO Pending Orders: Pending Results/Labs: Pending MD notification: Latest Vital Signs: Temperature 97.7 , Pulse 102 , B/P 128 /88 , Respiratory Rate 38 , O2 SAT 88 , Nasal Cannula, O2 Flow Rate 15.0 . Vital Sign Comment: [] EKG Rhythm: Sinus Rhythm Rhythm change?: N MD Notified?: N - MD Response: Latest Plaza Fall Score: 30 Fall Risk: Medium Risk Safety Measures: Call light Within Reach, Bed Alarm Zone 3, Side Rails Side Rails x2, Bed position Low and Locked. Fall Precautions: Yellow Socks Report given to [Cherie].
[2020-07-23 08:00] VITALS: BP 144/99
--- NOTE | 2020-07-23 08:03 | Pulmonology Progress Note ---
Subjective ROS Limited/Unobtainable: Yes Interval Events: on BiPAP; desaturates rapidly on NRB Constitutional: Reports: no symptoms HEENT: Repors: no symptoms Respiratory: Reports: shortness of breath Gastrointestinal/Abdominal: Reports: no symptoms Psychiatric: Reports: no symptoms Skin: Reports: no symptoms Musculoskeletal: Reports: no symptoms Allergies: Coded Allergies: No Known Allergies (Unverified , 07/07/20) Objective Last 24 Hour Vital Signs Date Time Temp Pulse Resp B/P (MAP) Pulse Ox O2 Delivery O2 Flow Rate FiO2 07/23/20 07:29 88 Bi-Pap 100 07/23/20 07:29 102 38 88 100 07/23/20 04:00 97.7 89 35 128/88 (101) 91 07/23/20 04:00 100 07/23/20 04:00 Bi-pap 07/23/20 04:00 83 07/23/20 01:04 89 31 92 100 07/23/20 00:00 Bi-pap 07/23/20 00:00 77 07/23/20 00:00 97.9 83 24 131/88 (102) 92 07/22/20 21:00 100 07/22/20 20:00 87 07/22/20 20:00 97.7 100 34 130/90 (103) 93 07/22/20 20:00 Bi-pap 07/22/20 19:18 84 29 92 100 07/22/20 19:18 92 Bi-Pap 100 07/22/20 16:00 97 07/22/20 16:00 Bi-pap 07/22/20 16:00 98.6 97 22 140/84 (102) 93 07/22/20 16:00 100 07/22/20 14:45 98 32 93 100 07/22/20 12:00 100 07/22/20 12:00 Bi-pap 07/22/20 12:00 98.0 107 24 136/80 (98) 94 07/22/20 12:00 100 07/22/20 11:14 98 33 92 100 07/22/20 08:13 128/84 Intake and Output 07/22/20 07/23/20 19:00 07:00 Intake Total 155 ml 55 ml Balance 155 ml 55 ml IV Total 155 ml 55 ml # Voids 1 1 General Appearance: no acute distress HEENT: normocephalic Respiratory: decreased breath sounds Cardiovascular: normal peripheral pulses Abdomen: normal bowel sounds Microbiology Date/Time Source Procedure Growth Status 07/20/20 15:55 Blood Blood Culture - Preliminary NO GROWTH AFTER 24 HOURS Resulted 07/20/20 15:20 Blood Blood Culture - Preliminary NO GROWTH AFTER 24 HOURS Resulted Laboratory Tests 07/22/20 20:36: POC Whole Blood Glucose 204H 07/23/20 05:57: POC Whole Blood Glucose [Pending] 07/23/20 07:45: D-Dimer [Pending] Current Medications Medications (Trade) Dose Ordered Sig/Marian Route PRN Reason Start Time Stop Time Status Last Admin Dose Admin Acetaminophen (Tylenol) 650 mg Q4H PRN RECTAL Temp >100.5 07/18/20 18:30 08/17/20 18:29 07/18/20 18:40 Acetaminophen (Tylenol) 650 mg Q6H PRN ORAL For Pain 07/07/20 15:45 08/06/20 15:44 07/16/20 09:45 Acetaminophen (Tylenol) 650 mg Q6H PRN ORAL FEVER 07/07/20 16:15 08/06/20 16:14 07/18/20 05:48 Benzonatate (Tessalon Perles) 100 mg TIDPRN PRN ORAL For Cough 07/18/20 18:30 08/17/20 18:29 Cefepime HCl 2 gm/ Dextrose 55 ml @ 110 mls/hr Q12HR IVPB 07/22/20 13:00 07/29/20 12:59 07/22/20 20:29 Dextrose (Dextrose 50%) 25 ml Q30M PRN IV Hypoglycemia 07/07/20 15:45 10/05/20 15:44 Dextrose (Dextrose 50%) 50 ml Q30M PRN IV Hypoglycemia 07/07/20 15:45 10/05/20 15:44 Docusate Sodium (Colace) 100 mg EVERY 12 HOURS ORAL 07/12/20 21:00 08/08/20 08:59 07/22/20 20:29 Enoxaparin Sodium (Lovenox) 80 mg DAILY SUBQ 07/08/20 09:00 10/06/20 08:59 07/22/20 08:14 Famotidine (Pepcid I.v.) 20 mg Q12HR IVP 07/20/20 09:00 08/19/20 08:59 07/22/20 20:28 Fluconazole/ Sodium Chloride 200 ml @ 100 mls/hr Q24H IV 07/22/20 14:00 07/29/20 13:59 07/22/20 14:39 Furosemide (Lasix) 40 mg DAILY IV 07/22/20 12:00 08/21/20 11:59 07/22/20 12:07 Insulin Aspart (NovoLOG) BEFORE MEALS AND HS SUBQ 07/07/20 16:30 10/05/20 16:29 07/23/20 05:59 Insulin Detemir (Levemir) 7 units DAILY SUBQ 07/20/20 14:00 10/18/20 13:59 07/22/20 09:00 Iohexol (OMNIPAQUE-300 100ml) 100 ml ONCE PRN INJ radiology procedure 07/21/20 11:45 07/23/20 11:44 Losartan Potassium (Cozaar) 25 mg DAILY ORAL 07/11/20 11:00 08/10/20 10:59 07/22/20 08:13 Methylprednisolone Sodium Succinate (Solu-MEDROL) 20 mg EVERY 6 HOURS IVP 07/22/20 12:00 10/19/20 08:59 07/23/20 05:54 Assessment/Plan Assessment/Plan 1. COVID-19 pneumonia. - COVID-19 PCR positive (07/07) -> continue isolation - s/p remdexsivir - s/p azithromycin - CXR (07/13) no significant change 2. Hypoxemic respiratory distress - s/p decadron (07/08-07/17) - now on Solu-Medrol - desaturated on BiPAP 17/01, 100% FiO2 -> now 19/05 - Encourage proning 3. Hypertension. 4. Diabetes mellitus. 5. DVT ppx - on Lovenox - f/u D-dimer (07/20) more elevated + tachycardia-> will order CTA chest given S/Sx of PE -> Pt not candidate for CTA chest or V/Q scan given her high flow oxygen requirement; continue full dose Lovenox and monitor 6. Sputum Cx shows pseudomonas and cony - on Abx 7. Suspect bacterial infection given leukocytosis - ordered fungal culture, BCx (07/20) - on empiric Diflucan; WBC better - On Cefepime Discussed with bedside RN. Vu Edward MD Jul 23, 2020 08:03
--- NOTE | 2020-07-23 08:40 | NUR ---
NURSE NOTES: Pt. in bed, awake, a/o x 4. On Bipap 18/12 with Fi O2 of 100%. O2 sat at 90%. No grimacing noted. Pleasant and cooperative with care. IV at left hand #24g in placed. Bed in low position, locked. Call light within reach. Will cont. to monitor.
[2020-07-23] MEDS: Docusate 100mg cap ORAL SCH ×2 (09:00→20:47)
[2020-07-23] MEDS: Losartan 25mg tab ORAL SCH (09:00)
[2020-07-23] MEDS: Levemir Flexpen SUBQ SCH (09:00)
--- NOTE | 2020-07-23 09:12 | NUR ---
RESPIRATORY NOTE: ABG drawn at this time. Results reported to Cherie GAINES.
[2020-07-23] MEDS: Enoxaparin 80mg Inj SUBQ SCH (09:27)
[2020-07-23] MEDS: Cefepime HCl 2 GM in D5W 55 ML IVPB SCH ×2 (09:28→20:47)
[2020-07-23 12:00] VITALS: BP 139/86
--- NOTE | 2020-07-23 13:33 | Nephrology Progress Note ---
Assessment/Plan Problem List: (1) Hyponatremia (2) Hypoxia (3) Pneumonitis (4) Acute respiratory failure due to COVID-19 (5) DMII (diabetes mellitus, type 2) (6) HTN (hypertension) Assessment Hyponatremia, improved with saline infusion COVID-19 infection Pneumonia, acute respiratory failure, hypoxia Diabetes mellitus Hypertension Plan July 23: No labs drawn today. Medication list reviewed. Continue per testing consultant. Patient full code. July 22: Labs reviewed. Stable renal parameters. Continue per consultants. July 21: No CHEM panel drawn today. Stable from renal standpoint of view. Blood pressure stable. July 20: IV changed to D5W 50 cc an hour. Renal parameters stable. Continue per consultants. July 19: Pulmonary status remains unstable. Stable from renal standpoint of view. July 18: Labs reviewed. Stable renal parameters and electrolytes. Continue per consultants. July 17: No labs drawn today. Remains stable from renal standpoint today. July 16: No labs drawn today. Continue per consultants. Stable from renal standpoint of view. July 15: Labs reviewed. Renal parameters stable. July 14: No labs from today. Continue per current management. Check labs tomorrow. July 13: No labs drawn today. Stable from renal standpoint of view. July 12: Today's labs pending. Medication list reviewed. Continue per current management and consultants. July 11: Labs reviewed. Renal parameters stable. July 10: Labs reviewed. Renal parameters electrolytes stable. Continue per consultants. July 09: Labs reviewed. Renal parameters and electrolytes stable. Continue per ID and pulmonary. Subjective ROS Limited/Unobtainable: Yes Objective Objective Last 24 Hour Vital Signs Date Time Temp Pulse Resp B/P (MAP) Pulse Ox O2 Delivery O2 Flow Rate FiO2 07/23/20 12:00 100 07/23/20 12:00 98.1 107 30 139/86 (103) 90 07/23/20 12:00 Bi-pap 07/23/20 11:51 102 07/23/20 10:42 101 34 90 100 07/23/20 09:00 144/99 07/23/20 08:00 Bi-pap 07/23/20 08:00 100 07/23/20 08:00 97.5 106 36 144/99 (114) 90 07/23/20 07:29 88 Bi-Pap 100 07/23/20 07:29 102 38 88 100 07/23/20 07:28 111 07/23/20 04:00 97.7 89 35 128/88 (101) 91 07/23/20 04:00 100 07/23/20 04:00 Bi-pap 07/23/20 04:00 83 07/23/20 01:04 89 31 92 100 07/23/20 00:00 Bi-pap 07/23/20 00:00 77 07/23/20 00:00 97.9 83 24 131/88 (102) 92 07/22/20 21:00 100 07/22/20 20:00 87 07/22/20 20:00 97.7 100 34 130/90 (103) 93 07/22/20 20:00 Bi-pap 07/22/20 19:18 84 29 92 100 07/22/20 19:18 92 Bi-Pap 100 07/22/20 16:00 97 07/22/20 16:00 Bi-pap 07/22/20 16:00 98.6 97 22 140/84 (102) 93 07/22/20 16:00 100 07/22/20 14:45 98 32 93 100 Intake and Output 07/22/20 07/23/20 19:00 07:00 Intake Total 155 ml 55 ml Balance 155 ml 55 ml IV Total 155 ml 55 ml # Voids 1 1 Current Medications Medications (Trade) Dose Ordered Sig/Marian Route PRN Reason Start Time Stop Time Status Last Admin Dose Admin Acetaminophen (Tylenol) 650 mg Q4H PRN RECTAL Temp >100.5 07/18/20 18:30 08/17/20 18:29 07/18/20 18:40 Acetaminophen (Tylenol) 650 mg Q6H PRN ORAL For Pain 07/07/20 15:45 08/06/20 15:44 07/16/20 09:45 Acetaminophen (Tylenol) 650 mg Q6H PRN ORAL FEVER 07/07/20 16:15 08/06/20 16:14 07/18/20 05:48 Benzonatate (Tessalon Perles) 100 mg TIDPRN PRN ORAL For Cough 07/18/20 18:30 08/17/20 18:29 Cefepime HCl 2 gm/ Dextrose 55 ml @ 110 mls/hr Q12HR IVPB 07/22/20 13:00 07/29/20 12:59 07/23/20 09:28 Dextrose (Dextrose 50%) 25 ml Q30M PRN IV Hypoglycemia 07/07/20 15:45 10/05/20 15:44 Dextrose (Dextrose 50%) 50 ml Q30M PRN IV Hypoglycemia 07/07/20 15:45 10/05/20 15:44 Docusate Sodium (Colace) 100 mg EVERY 12 HOURS ORAL 07/12/20 21:00 08/08/20 08:59 07/22/20 20:29 Enoxaparin Sodium (Lovenox) 80 mg DAILY SUBQ 07/08/20 09:00 10/06/20 08:59 07/23/20 09:27 Famotidine (Pepcid I.v.) 20 mg Q12HR IVP 07/20/20 09:00 08/19/20 08:59 07/23/20 09:24 Fluconazole/ Sodium Chloride 200 ml @ 100 mls/hr Q24H IV 07/22/20 14:00 07/29/20 13:59 07/22/20 14:39 Furosemide (Lasix) 40 mg DAILY IV 07/22/20 12:00 08/21/20 11:59 07/23/20 09:24 Insulin Aspart (NovoLOG) BEFORE MEALS AND HS SUBQ 07/07/20 16:30 10/05/20 16:29 07/23/20 12:33 Insulin Detemir (Levemir) 7 units DAILY SUBQ 07/20/20 14:00 10/18/20 13:59 07/22/20 09:00 Losartan Potassium (Cozaar) 25 mg DAILY ORAL 07/11/20 11:00 08/10/20 10:59 07/22/20 08:13 Methylprednisolone Sodium Succinate (Solu-MEDROL) 20 mg EVERY 6 HOURS IVP 07/22/20 12:00 10/19/20 08:59 07/23/20 11:40 Laboratory Tests 07/22/20 20:36: POC Whole Blood Glucose 204H 07/23/20 05:57: POC Whole Blood Glucose 170H 07/23/20 07:45: D-Dimer 3.44H 07/23/20 09:12: Arterial Blood pH 7.448, Arterial Blood Partial Pressure CO2 40.5, Arterial Blood Partial Pressure O2 55.5L, Arterial Blood HCO3 27.4H, Arterial Blood Oxygen Saturation 87.1*L, Arterial Blood Base Excess 3.1H, Timbo Test Positive Height (Feet): 5 Height (Inches): 3.00 Weight (Pounds): 162 General Appearance: no apparent distress Cardiovascular: tachycardia Respiratory/Chest: decreased breath sounds Abdomen: distended Objective No change Anurag Bridges MD Jul 23, 2020 13:33
[2020-07-23] MEDS: FLUCONAZOLE 400 MG/200 ML IV SCH (14:06)
[2020-07-23 16:00] VITALS: BP 150/95
--- NOTE | 2020-07-23 19:25 | NUR ---
NURSE HAND-OFF REPORT: Called Dr. Malcolm and received new orders for 1/2NS at 80cc/hr. and to stop all insulin just do sliding scale. Important Events on Shift: Updated family from time to time. Patient Status: wnl Diet: npo Pending Orders: Pending Results/Labs: Pending MD notification: Latest Vital Signs: Temperature 97.7 , Pulse 102 , B/P 150 /95 , Respiratory Rate 28 , O2 SAT 90 , Nasal Cannula, O2 Flow Rate 15.0 . Vital Sign Comment: wnl EKG Rhythm: Sinus Tachycardia Rhythm change?: N MD Notified?: N - MD Response: Latest Plaza Fall Score: 30 Fall Risk: Medium Risk Safety Measures: Call light Within Reach, Bed Alarm Zone 3, Side Rails Side Rails x2, Bed position Low and Locked. Fall Precautions: Yellow Socks Report given to Willi GAINES.
--- NOTE | 2020-07-23 19:28 | General Progress Note ---
Subjective Allergies: Coded Allergies: No Known Allergies (Unverified , 07/07/20) Objective Last 24 Hour Vital Signs Date Time Temp Pulse Resp B/P (MAP) Pulse Ox O2 Delivery O2 Flow Rate FiO2 07/23/20 16:00 Bi-pap 07/23/20 16:00 100 07/23/20 16:00 97.7 102 28 150/95 (113) 90 07/23/20 15:13 101 07/23/20 15:02 101 32 92 100 07/23/20 12:00 100 07/23/20 12:00 98.1 107 30 139/86 (103) 90 07/23/20 12:00 Bi-pap 07/23/20 11:51 102 07/23/20 10:42 101 34 90 100 07/23/20 09:00 144/99 07/23/20 08:00 Bi-pap 07/23/20 08:00 100 07/23/20 08:00 97.5 106 36 144/99 (114) 90 07/23/20 07:29 88 Bi-Pap 100 07/23/20 07:29 102 38 88 100 07/23/20 07:28 111 07/23/20 04:00 97.7 89 35 128/88 (101) 91 07/23/20 04:00 100 07/23/20 04:00 Bi-pap 07/23/20 04:00 83 07/23/20 01:04 89 31 92 100 07/23/20 00:00 Bi-pap 07/23/20 00:00 77 07/23/20 00:00 97.9 83 24 131/88 (102) 92 07/22/20 21:00 100 07/22/20 20:00 87 07/22/20 20:00 97.7 100 34 130/90 (103) 93 07/22/20 20:00 Bi-pap Intake and Output 07/22/20 07/23/20 19:00 07:00 Intake Total 155 ml 55 ml Balance 155 ml 55 ml IV Total 155 ml 55 ml # Voids 1 1 Laboratory Tests 07/22/20 20:36: POC Whole Blood Glucose 204H 07/23/20 05:57: POC Whole Blood Glucose 170H 07/23/20 07:45: D-Dimer 3.44H 07/23/20 09:12: Arterial Blood pH 7.448, Arterial Blood Partial Pressure CO2 40.5, Arterial Blood Partial Pressure O2 55.5L, Arterial Blood HCO3 27.4H, Arterial Blood Oxygen Saturation 87.1*L, Arterial Blood Base Excess 3.1H, Timbo Test Positive Height (Feet): 5 Height (Inches): 3.00 Weight (Pounds): 162 Assessment/Plan Status: stable Assessment/Plan: S, O: I am feeling more sob, seems in moderate sob, no severe pain , on BIPAP PHYSICAL EXAMINATION: HEAD AND NECK: Atraumatic and normocephalic. CHEST: Diffuse bronchial breathing sounds. HEART: S1 and S2. Regular rate and rhythm. ABDOMEN: Soft. No organomegaly. MUSCULOSKELETAL: No gross lateralized motor deficit. Meds: reviewed and reconciled in the chart ASSESSMENT: 1. Hypoxemic respiratory failure, on BIPAP 2. COVID-19 pneumonia- Pseudoman and Candidia 3. Diabetes type 2. 4. Hyponatremia 5. GI and DVT prophylaxis. PLAN OF CARE: I left a VM for patient's brother in law, per her request. on 1334 hours on Jul 10 I spoke with patient's brother in law, I updated him about overall cnd of patient . Agreed with current management. given persistent high level of O2 requirement. I will repeat CXR No, interval imaging changes. notes from pulmonary reviewed given persistent high level of O2 requirement and new positive sputum culture; I will repeat CXR on jul 19 Worsening lung infiltration , grave prognosis. DC steroid Jul 20 I spoke to the patient's brother in law, per her request. on 1125 hours on Jul 21. Notified based on [place] of prognosis visit by family member is encouraged Discussed the antibiotic regiments with Pulmonary. Adequate coverage at this time. Agree that Further Diagnostic workup to rule out PE is not feasible, continue with full dose ATC for now stop D5 maintaince fluid. Stop Levemir. Stop lasix. Only SSI. Gail Malcolm MD Jul 23, 2020 19:28
--- NOTE | 2020-07-23 19:30 | NUR ---
NURSE NOTES: Received pt in bed, asleep but easily arousable by name calling, able to make needs known, on Bipap 19/05 100% FiO2 not showing any signs of distress. Left hand #24 intact and patent. VSS and pt is SR on monitor.
[2020-07-23 20:00] VITALS: BP 133/91
--- NOTE | 2020-07-23 22:40 | Cardiology Progress Note ---
Assessment/Plan Status: deteriorating Assessment/Plan 1. COVID-19 viral PNA on remdesivir and dexamethasone WBCs trending upward 2. Respiratory failure 2/2 acute PNA O2 dependent on BiPAP 3. HFpEF acute on chronic diastolic HF with preserved EF EF 65%, compensated BNP negative 4. DMII 5. GERD Echo negative for acute decompensated HF. Diuresis as needed with IV Lasix. SBP and HR controlled. Subjective Subjective In isolation, worsening dyspnea, on BiPAP Objective Last 24 Hour Vital Signs Date Time Temp Pulse Resp B/P (MAP) Pulse Ox O2 Delivery O2 Flow Rate FiO2 07/23/20 20:47 92 32 91 100 07/23/20 20:00 100 07/23/20 20:00 Bi-pap 07/23/20 20:00 96 07/23/20 20:00 97.7 96 28 133/91 (105) 92 07/23/20 19:28 92 Bi-Pap 100 07/23/20 19:27 94 34 92 100 07/23/20 16:00 Bi-pap 07/23/20 16:00 100 07/23/20 16:00 97.7 102 28 150/95 (113) 90 07/23/20 15:13 101 07/23/20 15:02 101 32 92 100 07/23/20 12:00 100 07/23/20 12:00 98.1 107 30 139/86 (103) 90 07/23/20 12:00 Bi-pap 07/23/20 11:51 102 07/23/20 10:42 101 34 90 100 07/23/20 09:00 144/99 07/23/20 08:00 Bi-pap 07/23/20 08:00 100 07/23/20 08:00 97.5 106 36 144/99 (114) 90 07/23/20 07:29 88 Bi-Pap 100 07/23/20 07:29 102 38 88 100 07/23/20 07:28 111 07/23/20 04:00 97.7 89 35 128/88 (101) 91 07/23/20 04:00 100 07/23/20 04:00 Bi-pap 07/23/20 04:00 83 07/23/20 01:04 89 31 92 100 07/23/20 00:00 Bi-pap 07/23/20 00:00 77 07/23/20 00:00 97.9 83 24 131/88 (102) 92 General Appearance: no apparent distress EENT: PERRL/EOMI Neck: no JVD Rhythm: NSR Cardiovascular: normal rate, regular rhythm Respiratory/Chest: decreased breath sounds Intake and Output 07/22/20 07/23/20 19:00 07:00 Intake Total 155 ml 55 ml Balance 155 ml 55 ml IV Total 155 ml 55 ml # Voids 1 1 Laboratory Tests Test 07/23/20 05:57 07/23/20 07:45 07/23/20 09:12 07/23/20 21:04 POC Whole Blood Glucose 170 MG/DL (74-106) H Pending D-Dimer 3.44 mg/L FEU (0.00-0.49) H Arterial Blood pH 7.448 (7.350-7.450) Arterial Blood Partial Pressure CO2 40.5 mmHg (35.0-45.0) Arterial Blood Partial Pressure O2 55.5 mmHg (75.0-100.0) L Arterial Blood HCO3 27.4 mmol/L (22.0-26.0) H Arterial Blood Oxygen Saturation 87.1 % (95-100) *L Arterial Blood Base Excess 3.1 (-2-2) H Timbo Test Positive Blanca Lobato PA-C Jul 23, 2020 22:40
[2020-07-24] VITALS: BP 142/98
--- NOTE | 2020-07-24 | NUR ---
NURSE NOTES: Pt remains stable with stable VS. Pt saturating between 92-94% on Bipap. Pt remains SR on the monitor.
--- NOTE | 2020-07-24 02:00 | NUR ---
NURSE NOTES: Pt insists that he be taken off the Bipap even if he is told of its repercussions. DANILO Valdivia, talks to pt and it is then that he said that he wants to be DNR. Earlier pt stated that he didnt want intubation which Dr. Edward is already aware of. Addendum: 07/24/20 at 0208 by JOSE JUAN MCKEON RN RN Pls. disregard. Charted on wrong pt.
[2020-07-24 04:00] VITALS: BP 154/93
--- NOTE | 2020-07-24 04:00 | NUR ---
NURSE NOTES: Pt remains stable with stable VS. Pt saturating mostly 92% on the Bipap with no signs opf any distress noted. Pt remains SR on the monitor.
[2020-07-24] MEDS: Solu-MEDROL 40mg Inj IVP SCH ×4 (05:17→23:35)
[2020-07-24 06:32] LABS: HEMATOCRIT 37.1 % (37.0-47.0); HEMOGLOBIN 11.7 G/DL (12.0-16.0); MEAN CORPUSCULAR VOLUME 89 FL (80-99); PLATELET COUNT 209 K/UL (150-450); RED BLOOD COUNT 4.16 M/UL (4.20-5.40); RED CELL DISTRIBUTION WIDTH 12.6 % (11.6-14.8); WHITE BLOOD COUNT 15.9 K/UL (4.8-10.8)
--- NOTE | 2020-07-24 07:10 | NUR ---
NURSE HAND-OFF REPORT: Important Events on Shift: Patient Status: Diet: Pending Orders: Pending Results/Labs: Pending MD notification: Latest Vital Signs: Temperature 96.4 , Pulse 103 , B/P 154 /93 , Respiratory Rate 33 , O2 SAT 91 , Nasal Cannula, O2 Flow Rate 15.0 . Vital Sign Comment: EKG Rhythm: Sinus Rhythm Rhythm change?: N MD Notified?: N - MD Response: Latest Plaza Fall Score: 30 Fall Risk: Medium Risk Safety Measures: Call light Within Reach, Bed Alarm Zone 3, Side Rails Side Rails x2, Bed position Low and Locked. Fall Precautions: Yellow Socks Report given to LIANA Reyes .
[2020-07-24 07:15] LABS: ALANINE AMINOTRANSFERASE 20 U/L (12-78); ALBUMIN 2.2 G/DL (3.4-5.0); ALBUMIN/GLOBULIN RATIO 0.4 (1.0-2.7); ALKALINE PHOSPHATASE 79 U/L (46-116); ANION GAP 9 mmol/L (5-15); ASPARTATE AMINO TRANSFERASE 27 U/L (15-37); BILIRUBIN,TOTAL 0.5 MG/DL (0.2-1.0); BLOOD UREA NITROGEN 31 mg/dL (7-18); CARBON DIOXIDE 31 MMOL/L (21-32); CHLORIDE 104 MMOL/L (98-107); CREATININE 0.8 MG/DL (0.55-1.30); POTASSIUM 4.1 MMOL/L (3.5-5.1); SODIUM 143 MMOL/L (136-145)
--- NOTE | 2020-07-24 07:20 | NUR ---
NURSE NOTES: Received report from LIANA Márquez. No active s/s cardiac distress noticed at this time. Patient on BIPAP 18/12 Fio2 100% O2 sat 89% at this time. Patient fatigue, easily awake with verbal stimuli. Patient AOx4, NPO at this time due to hypoxia, BIPAP. IV on left hand 24G, asymptomatic, patent, intact. IVF 1/2 NS @ 80ml/h. Bed in lowest position, side rails upx3, call light within reach, bed alarm on, Will continue to monitor.
[2020-07-24 08:00] VITALS: BP 151/99
[2020-07-24] MEDS: Cefepime HCl 2 GM in D5W 55 ML IVPB SCH ×2 (08:42→20:45)
[2020-07-24] MEDS: Losartan 25mg tab ORAL SCH (08:43)
[2020-07-24] MEDS: Enoxaparin 80mg Inj SUBQ SCH (08:44)
[2020-07-24] MEDS: Docusate 100mg cap ORAL SCH ×2 (08:46→20:42)
--- NOTE | 2020-07-24 10:04 | Nephrology Progress Note ---
Assessment/Plan Problem List: (1) Hyponatremia (2) Hypoxia (3) Pneumonitis (4) Acute respiratory failure due to COVID-19 (5) DMII (diabetes mellitus, type 2) (6) HTN (hypertension) Assessment Hyponatremia, improved with saline infusion COVID-19 infection Pneumonia, acute respiratory failure, hypoxia Diabetes mellitus Hypertension Plan July 24: Labs reviewed. Renal parameters stable. Continue per pulmonary. Medication list reviewed. July 23: No labs drawn today. Medication list reviewed. Continue per hr shared services consultant. Patient full code. July 22: Labs reviewed. Stable renal parameters. Continue per consultants. July 21: No CHEM panel drawn today. Stable from renal standpoint of view. Blood pressure stable. July 20: IV changed to D5W 50 cc an hour. Renal parameters stable. Continue per consultants. July 19: Pulmonary status remains unstable. Stable from renal standpoint of view. July 18: Labs reviewed. Stable renal parameters and electrolytes. Continue per consultants. July 17: No labs drawn today. Remains stable from renal standpoint today. July 16: No labs drawn today. Continue per consultants. Stable from renal standpoint of view. July 15: Labs reviewed. Renal parameters stable. July 14: No labs from today. Continue per current management. Check labs tomorrow. July 13: No labs drawn today. Stable from renal standpoint of view. July 12: Today's labs pending. Medication list reviewed. Continue per current management and consultants. July 11: Labs reviewed. Renal parameters stable. July 10: Labs reviewed. Renal parameters electrolytes stable. Continue per consultants. July 09: Labs reviewed. Renal parameters and electrolytes stable. Continue per ID and pulmonary. Subjective ROS Limited/Unobtainable: Yes Objective Objective Last 24 Hour Vital Signs Date Time Temp Pulse Resp B/P (MAP) Pulse Ox O2 Delivery O2 Flow Rate FiO2 07/24/20 08:43 151/99 07/24/20 07:21 91 Bi-Pap 100 07/24/20 07:21 99 31 92 100 07/24/20 04:55 103 33 91 100 07/24/20 04:00 100 07/24/20 04:00 85 07/24/20 04:00 96.4 99 25 154/93 (113) 89 07/24/20 04:00 Bi-pap 07/24/20 03:14 98 25 93 100 07/24/20 01:06 89 23 95 100 07/24/20 00:00 97.0 92 28 142/98 (113) 94 07/24/20 00:00 100 07/24/20 00:00 Bi-pap 07/24/20 00:00 89 07/23/20 23:28 88 24 93 100 07/23/20 20:47 92 32 91 100 07/23/20 20:00 100 07/23/20 20:00 Bi-pap 07/23/20 20:00 96 07/23/20 20:00 97.7 96 28 133/91 (105) 92 07/23/20 19:28 92 Bi-Pap 100 07/23/20 19:27 94 34 92 100 07/23/20 16:00 Bi-pap 07/23/20 16:00 100 07/23/20 16:00 97.7 102 28 150/95 (113) 90 07/23/20 15:13 101 07/23/20 15:02 101 32 92 100 07/23/20 12:00 100 07/23/20 12:00 98.1 107 30 139/86 (103) 90 07/23/20 12:00 Bi-pap 07/23/20 11:51 102 07/23/20 10:42 101 34 90 100 Intake and Output 07/23/20 07/24/20 19:00 07:00 Intake Total 736 ml Output Total 150 ml 500 ml Balance -150 ml 236 ml IV Total 736 ml Output Urine Total 150 ml 500 ml Stool Total 0 ml # Voids 3 Current Medications Medications (Trade) Dose Ordered Sig/Marian Route PRN Reason Start Time Stop Time Status Last Admin Dose Admin Acetaminophen (Tylenol) 650 mg Q4H PRN RECTAL Temp >100.5 07/18/20 18:30 08/17/20 18:29 07/18/20 18:40 Acetaminophen (Tylenol) 650 mg Q6H PRN ORAL For Pain 07/07/20 15:45 08/06/20 15:44 07/16/20 09:45 Acetaminophen (Tylenol) 650 mg Q6H PRN ORAL FEVER 07/07/20 16:15 08/06/20 16:14 07/18/20 05:48 Benzonatate (Tessalon Perles) 100 mg TIDPRN PRN ORAL For Cough 07/18/20 18:30 08/17/20 18:29 Cefepime HCl 2 gm/ Dextrose 55 ml @ 110 mls/hr Q12HR IVPB 07/22/20 13:00 07/29/20 12:59 07/24/20 08:42 Dextrose (Dextrose 50%) 25 ml Q30M PRN IV Hypoglycemia 07/07/20 15:45 10/05/20 15:44 Dextrose (Dextrose 50%) 50 ml Q30M PRN IV Hypoglycemia 07/07/20 15:45 10/05/20 15:44 Docusate Sodium (Colace) 100 mg EVERY 12 HOURS ORAL 07/12/20 21:00 08/08/20 08:59 07/24/20 08:46 Enoxaparin Sodium (Lovenox) 80 mg DAILY SUBQ 07/08/20 09:00 10/06/20 08:59 07/24/20 08:44 Famotidine (Pepcid I.v.) 20 mg Q12HR IVP 07/20/20 09:00 08/19/20 08:59 07/24/20 08:43 Fluconazole/ Sodium Chloride 200 ml @ 100 mls/hr Q24H IV 07/22/20 14:00 07/29/20 13:59 07/23/20 14:06 Losartan Potassium (Cozaar) 25 mg DAILY ORAL 07/11/20 11:00 08/10/20 10:59 07/24/20 08:43 Methylprednisolone Sodium Succinate (Solu-MEDROL) 20 mg EVERY 6 HOURS IVP 07/22/20 12:00 10/19/20 08:59 07/24/20 05:17 Sodium Chloride 1,000 ml @ 80 mls/hr [id number] IV 07/23/20 19:45 08/22/20 19:44 07/24/20 08:47 Laboratory Tests 07/23/20 21:04: POC Whole Blood Glucose [Pending] 07/24/20 04:02: White Blood Count 15.9H, Red Blood Count 4.16L, Hemoglobin 11.7L, Hematocrit 37.1, Mean Corpuscular Volume 89, Mean Corpuscular Hemoglobin 28.1, Mean Corpuscular Hemoglobin Concent 31.4L, Red Cell Distribution Width 12.6, Platelet Count 209, Mean Platelet Volume 8.4, Neutrophils (%) (Auto) , Lymphocytes (%) (Auto) , Monocytes (%) (Auto) , Eosinophils (%) (Auto) , Basophils (%) (Auto) , Differential Total Cells Counted 100, Neutrophils % (Manual) 92H, Lymphocytes % (Manual) 2L, Monocytes % (Manual) 6, Eosinophils % (Manual) 0, Basophils % (Manual) 0, Band Neutrophils 0, Platelet Estimate Adequate, Platelet Morphology Normal, Sodium Level 143, Potassium Level 4.1, Chloride Level 104, Carbon Dioxide Level 31, Anion Gap 9, Blood Urea Nitrogen 31H, Creatinine 0.8, Estimat Glomerular Filtration Rate > 60, Glucose Level 209H, Calcium Level 9.0, Total Bilirubin 0.5, Aspartate Amino Transf (AST/SGOT) 27, Alanine Aminotransferase (ALT/SGPT) 20, Alkaline Phosphatase 79, Total Protein 7.3, Albumin 2.2L, Globulin 5.1, Albumin/Globulin Ratio 0.4L Height (Feet): 5 Height (Inches): 3.00 Weight (Pounds): 162 General Appearance: mild distress EENT: other - On BiPAP FiO2 100% Cardiovascular: tachycardia Respiratory/Chest: decreased breath sounds Abdomen: distended Objective No change Anurag Bridges MD Jul 24, 2020 10:04
--- NOTE | 2020-07-24 11:22 | Pulmonology Progress Note ---
Subjective ROS Limited/Unobtainable: Yes Interval Events: on BiPAP; desaturates rapidly on NRB Constitutional: Reports: no symptoms HEENT: Repors: no symptoms Respiratory: Reports: shortness of breath Gastrointestinal/Abdominal: Reports: no symptoms Psychiatric: Reports: no symptoms Skin: Reports: no symptoms Musculoskeletal: Reports: no symptoms Allergies: Coded Allergies: No Known Allergies (Unverified , 07/07/20) Objective Last 24 Hour Vital Signs Date Time Temp Pulse Resp B/P (MAP) Pulse Ox O2 Delivery O2 Flow Rate FiO2 07/24/20 11:10 109 45 87 100 07/24/20 08:43 151/99 07/24/20 08:00 Bi-pap 07/24/20 08:00 100 07/24/20 08:00 98.1 107 22 151/99 (116) 89 07/24/20 08:00 98 07/24/20 07:21 91 Bi-Pap 100 07/24/20 07:21 99 31 92 100 07/24/20 04:55 103 33 91 100 07/24/20 04:00 100 07/24/20 04:00 85 07/24/20 04:00 96.4 99 25 154/93 (113) 89 07/24/20 04:00 Bi-pap 07/24/20 03:14 98 25 93 100 07/24/20 01:06 89 23 95 100 07/24/20 00:00 97.0 92 28 142/98 (113) 94 07/24/20 00:00 100 07/24/20 00:00 Bi-pap 07/24/20 00:00 89 07/23/20 23:28 88 24 93 100 07/23/20 20:47 92 32 91 100 07/23/20 20:00 100 07/23/20 20:00 Bi-pap 07/23/20 20:00 96 07/23/20 20:00 97.7 96 28 133/91 (105) 92 07/23/20 19:28 92 Bi-Pap 100 07/23/20 19:27 94 34 92 100 07/23/20 16:00 Bi-pap 07/23/20 16:00 100 07/23/20 16:00 97.7 102 28 150/95 (113) 90 07/23/20 15:13 101 07/23/20 15:02 101 32 92 100 07/23/20 12:00 100 07/23/20 12:00 98.1 107 30 139/86 (103) 90 07/23/20 12:00 Bi-pap 07/23/20 11:51 102 Intake and Output 07/23/20 07/24/20 19:00 07:00 Intake Total 736 ml Output Total 150 ml 500 ml Balance -150 ml 236 ml IV Total 736 ml Output Urine Total 150 ml 500 ml Stool Total 0 ml # Voids 3 General Appearance: no acute distress HEENT: normocephalic Respiratory: decreased breath sounds Cardiovascular: normal peripheral pulses Abdomen: normal bowel sounds Laboratory Tests 07/23/20 21:04: POC Whole Blood Glucose [Pending] 07/24/20 04:02: White Blood Count 15.9H, Red Blood Count 4.16L, Hemoglobin 11.7L, Hematocrit 37.1, Mean Corpuscular Volume 89, Mean Corpuscular Hemoglobin 28.1, Mean Corpuscular Hemoglobin Concent 31.4L, Red Cell Distribution Width 12.6, Platelet Count 209, Mean Platelet Volume 8.4, Neutrophils (%) (Auto) , Lymphocytes (%) (Auto) , Monocytes (%) (Auto) , Eosinophils (%) (Auto) , Basophils (%) (Auto) , Differential Total Cells Counted 100, Neutrophils % (Manual) 92H, Lymphocytes % (Manual) 2L, Monocytes % (Manual) 6, Eosinophils % (Manual) 0, Basophils % (Manual) 0, Band Neutrophils 0, Platelet Estimate Adequate, Platelet Morphology Normal, Sodium Level 143, Potassium Level 4.1, Chloride Level 104, Carbon Dioxide Level 31, Anion Gap 9, Blood Urea Nitrogen 31H, Creatinine 0.8, Estimat Glomerular Filtration Rate > 60, Glucose Level 209H, Calcium Level 9.0, Total Bilirubin 0.5, Aspartate Amino Transf (AST/SGOT) 27, Alanine Aminotransferase (ALT/SGPT) 20, Alkaline Phosphatase 79, Total Protein 7.3, Albumin 2.2L, Globulin 5.1, Albumin/Globulin Ratio 0.4L 07/24/20 10:56: Arterial Blood pH 7.435, Arterial Blood Partial Pressure CO2 42.3, Arterial Blood Partial Pressure O2 58.1L, Arterial Blood HCO3 27.8H, Arterial Blood Oxygen Saturation 87.4*L, Arterial Blood Base Excess 3.2H, Timbo Test Positive Current Medications Medications (Trade) Dose Ordered Sig/Marian Route PRN Reason Start Time Stop Time Status Last Admin Dose Admin Acetaminophen (Tylenol) 650 mg Q4H PRN RECTAL Temp >100.5 07/18/20 18:30 08/17/20 18:29 07/18/20 18:40 Acetaminophen (Tylenol) 650 mg Q6H PRN ORAL For Pain 07/07/20 15:45 08/06/20 15:44 07/16/20 09:45 Acetaminophen (Tylenol) 650 mg Q6H PRN ORAL FEVER 07/07/20 16:15 08/06/20 16:14 07/18/20 05:48 Benzonatate (Tessalon Perles) 100 mg TIDPRN PRN ORAL For Cough 07/18/20 18:30 08/17/20 18:29 Cefepime HCl 2 gm/ Dextrose 55 ml @ 110 mls/hr Q12HR IVPB 07/22/20 13:00 07/29/20 12:59 07/24/20 08:42 Dextrose (Dextrose 50%) 25 ml Q30M PRN IV Hypoglycemia 07/07/20 15:45 10/05/20 15:44 Dextrose (Dextrose 50%) 50 ml Q30M PRN IV Hypoglycemia 07/07/20 15:45 10/05/20 15:44 Docusate Sodium (Colace) 100 mg EVERY 12 HOURS ORAL 07/12/20 21:00 08/08/20 08:59 07/24/20 08:46 Enoxaparin Sodium (Lovenox) 80 mg DAILY SUBQ 07/08/20 09:00 10/06/20 08:59 07/24/20 08:44 Famotidine (Pepcid I.v.) 20 mg Q12HR IVP 07/20/20 09:00 08/19/20 08:59 07/24/20 08:43 Fluconazole/ Sodium Chloride 200 ml @ 100 mls/hr Q24H IV 07/22/20 14:00 07/29/20 13:59 07/23/20 14:06 Losartan Potassium (Cozaar) 25 mg DAILY ORAL 07/11/20 11:00 08/10/20 10:59 07/24/20 08:43 Methylprednisolone Sodium Succinate (Solu-MEDROL) 20 mg EVERY 6 HOURS IVP 07/22/20 12:00 10/19/20 08:59 07/24/20 05:17 Sodium Chloride 1,000 ml @ 80 mls/hr [id number] IV 07/23/20 19:45 08/22/20 19:44 07/24/20 08:47 Assessment/Plan Assessment/Plan 1. COVID-19 pneumonia. - COVID-19 PCR positive (07/07) -> continue isolation - s/p remdexsivir - s/p azithromycin - CXR (07/13) no significant change 2. Hypoxemic respiratory distress - s/p decadron (07/08-07/17) - now on Solu-Medrol - desaturated on BiPAP 17/01, 100% FiO2 -> now 19/05 - Encourage proning - ABG slight improvement; continue current management 3. Hypertension. 4. Diabetes mellitus. 5. DVT ppx - on Lovenox - f/u D-dimer (07/20) more elevated + tachycardia-> will order CTA chest given S/Sx of PE -> Pt not candidate for CTA chest or V/Q scan given her high flow oxygen requirement; continue full dose Lovenox and monitor - f/u D-dimer (07/24) 6. Sputum Cx shows pseudomonas and cony - on Abx 7. Suspect bacterial infection given leukocytosis - ordered fungal culture, BCx (07/20) - on empiric Diflucan; WBC better - On Cefepime Discussed with bedside RN. The care for this patient was discussed with my supervising physician Time spent for this case was approximately 31 minutes Milton Howard Jul 24, 2020 11:22
--- NOTE | 2020-07-24 11:22 | NUR ---
NURSE NOTES: Anita KINSEY made aware of ABG result, no new order at this time, will continue to follow up.
--- NOTE | 2020-07-24 11:41 | General Progress Note ---
Subjective Allergies: Coded Allergies: No Known Allergies (Unverified , 07/07/20) Objective Last 24 Hour Vital Signs Date Time Temp Pulse Resp B/P (MAP) Pulse Ox O2 Delivery O2 Flow Rate FiO2 07/24/20 11:10 109 45 87 100 07/24/20 08:43 151/99 07/24/20 08:00 Bi-pap 07/24/20 08:00 100 07/24/20 08:00 98.1 107 22 151/99 (116) 89 07/24/20 08:00 98 07/24/20 07:21 91 Bi-Pap 100 07/24/20 07:21 99 31 92 100 07/24/20 04:55 103 33 91 100 07/24/20 04:00 100 07/24/20 04:00 85 07/24/20 04:00 96.4 99 25 154/93 (113) 89 07/24/20 04:00 Bi-pap 07/24/20 03:14 98 25 93 100 07/24/20 01:06 89 23 95 100 07/24/20 00:00 97.0 92 28 142/98 (113) 94 07/24/20 00:00 100 07/24/20 00:00 Bi-pap 07/24/20 00:00 89 07/23/20 23:28 88 24 93 100 07/23/20 20:47 92 32 91 100 07/23/20 20:00 100 07/23/20 20:00 Bi-pap 07/23/20 20:00 96 07/23/20 20:00 97.7 96 28 133/91 (105) 92 07/23/20 19:28 92 Bi-Pap 100 07/23/20 19:27 94 34 92 100 07/23/20 16:00 Bi-pap 07/23/20 16:00 100 07/23/20 16:00 97.7 102 28 150/95 (113) 90 07/23/20 15:13 101 07/23/20 15:02 101 32 92 100 07/23/20 12:00 100 07/23/20 12:00 98.1 107 30 139/86 (103) 90 07/23/20 12:00 Bi-pap 07/23/20 11:51 102 Intake and Output 07/23/20 07/24/20 19:00 07:00 Intake Total 736 ml Output Total 150 ml 500 ml Balance -150 ml 236 ml IV Total 736 ml Output Urine Total 150 ml 500 ml Stool Total 0 ml # Voids 3 Laboratory Tests 07/23/20 21:04: POC Whole Blood Glucose [Pending] 07/24/20 04:02: White Blood Count 15.9H, Red Blood Count 4.16L, Hemoglobin 11.7L, Hematocrit 37.1, Mean Corpuscular Volume 89, Mean Corpuscular Hemoglobin 28.1, Mean Arac[place] uscular Hemoglobin Concent 31.4L, Red Cell Distribution Width 12.6, Platelet Count 209, Mean Platelet Volume 8.4, Neutrophils (%) (Auto) , Lymphocytes (%) (Auto) , Monocytes (%) (Auto) , Eosinophils (%) (Auto) , Basophils (%) (Auto) , Differential Total Cells Counted 100, Neutrophils % (Manual) 92H, Lymphocytes % (Manual) 2L, Monocytes % (Manual) 6, Eosinophils % (Manual) 0, Basophils % (Manual) 0, Band Neutrophils 0, Platelet Estimate Adequate, Platelet Morphology Normal, Sodium Level 143, Potassium Level 4.1, Chloride Level 104, Carbon Dioxide Level 31, Anion Gap 9, Blood Urea Nitrogen 31H, Creatinine 0.8, Estimat Glomerular Filtration Rate > 60, Glucose Level 209H, Calcium Level 9.0, Total Bilirubin 0.5, Aspartate Amino Transf (AST/SGOT) 27, Alanine Aminotransferase (ALT/SGPT) 20, Alkaline Phosphatase 79, Total Protein 7.3, Albumin 2.2L, Globulin 5.1, Albumin/Globulin Ratio 0.4L 07/24/20 10:56: Arterial Blood pH 7.435, Arterial Blood Partial Pressure CO2 42.3, Arterial Blood Partial Pressure O2 58.1L, Arterial Blood HCO3 27.8H, Arterial Blood Oxygen Saturation 87.4*L, Arterial Blood Base Excess 3.2H, Timbo Test Positive Height (Feet): 5 Height (Inches): 3.00 Weight (Pounds): 162 Assessment/Plan Status: stable Assessment/Plan: S, O: I am feeling more sob, seems in moderate sob, no severe pain , on BIPAP PHYSICAL EXAMINATION: HEAD AND NECK: Atraumatic and normocephalic. CHEST: Diffuse bronchial breathing sounds. HEART: S1 and S2. Regular rate and rhythm. ABDOMEN: Soft. No organomegaly. MUSCULOSKELETAL: No gross lateralized motor deficit. Meds: reviewed and reconciled in the chart ASSESSMENT: 1. Hypoxemic respiratory failure, on BIPAP 2. COVID-19 pneumonia- Pseudoman and Candidia 3. Diabetes type 2. 4. Hyponatremia 5. GI and DVT prophylaxis. PLAN OF CARE: I left a for patient's brother in law, per her request. on 1334 hours on Jul 8 I spoke with patient's brother in law, I updated him about overall cnd of patient . Agreed with current management. given persistent high level of O2 requirement. I will repeat CXR No, interval imaging changes. notes from pulmonary reviewed given persistent high level of O2 requirement and new positive sputum culture; I will repeat CXR on jul 17 Worsening lung infiltration , grave prognosis. DC steroid Jul 20 I spoke to the patient's brother in law, per her request. on 1125 hours on Jul 21. Notified based on [place] of prognosis visit by family member is encouraged Discussed the antibiotic regiments with Pulmonary. Adequate coverage at this ti me. Agree that Further Diagnostic workup to rule out PE is not feasible, continue with full dose ATC for now stop D5 maintaince fluid. Stop Levemir. Stop lasix. Only SSI. Gail Malcolm MD Jul 24, 2020 11:41
[2020-07-24 12:00] VITALS: BP 149/101
--- NOTE | 2020-07-24 12:26 | NUR ---
CASE MANAGEMENT REVIEW SI: COVID PNA T 98.1 BP 151/99 HR 107 RR 22 O2 SAT 89% ON BIPAP W/100% FIO2 WBC 15.9 PH 7.4 PCO2 42.3 PO2 58.1 HCO3 27.8 02 SAT 87.4 IS: DIFLUCAN IV SOLUMEDROL IV PEPCID IV CEFEPIME IV 1/2 NS@MLS/HR DCP: HOME SDU STATUS
[2020-07-24] MEDS: FLUCONAZOLE 400 MG/200 ML IV SCH (13:18)
[2020-07-24 16:00] VITALS: BP 149/105
[2020-07-24] MEDS ORDERED: NS 275ml ONE (18:14)
--- NOTE | 2020-07-24 19:20 | NUR ---
NURSE HAND-OFF REPORT: Important Events on Shift: NA Patient Status: guarded Diet: NPO Pending Orders: na Pending Results/Labs:na Pending MD notification:na Latest Vital Signs: Temperature 97.3 , Pulse 94 , B/P 149 /105 , Respiratory Rate 24 , O2 SAT 90 , Nasal Cannula, O2 Flow Rate 15.0 . Vital Sign Comment: stable EKG Rhythm: Sinus Rhythm Rhythm change?: N MD Notified?: N - MD Response: Latest Plaza Fall Score: 30 Fall Risk: Medium Risk Safety Measures: Call light Within Reach, Bed Alarm Zone 3, Side Rails Side Rails x2, Bed position Low and Locked. Fall Precautions: Yellow Socks Report given to LIANA Ulloa.
--- NOTE | 2020-07-24 19:30 | NUR ---
NURSE NOTES: Received report from LIANA Reyes. Pt is awake, too fatigued to talk, but appears alert and follows commands. Breathing is slightly labored and tachypneic, spo2 92% on BiPAP 18/12 Fio2 100%. central supply worker shows ST. L hand 24g intact and asymptomatic running 1/2 NS 80cc/hr. HOB elevated, side railsx2, call light within reach, bed alarmed, locked, and in lowest position. Will continue plan of care. Will continue to monitor.
[2020-07-24 20:00] VITALS: BP 141/95
[2020-07-25] VITALS (19 sets, daily range): BP systolic 79–158; BP diastolic 58–109
--- NOTE | 2020-07-25 01:13 | NUR ---
NURSE NOTES: L hand 24g infiltrated; R hand 22g inserted. Tolerated well. Pt's condition remains unchanged. Will continue to monitor. Will continue plan of care.
[2020-07-25] MEDS: Solu-MEDROL 40mg Inj IVP SCH ×3 (05:03→20:54)
--- NOTE | 2020-07-25 05:12 | NUR ---
NURSE NOTES: Cleaned pt and changed linens, gown, and purewick. Pt tolerated well. No BM noted. Status remains unchanged. Will continue to monitor.
[2020-07-25 05:42] LABS: HEMATOCRIT 38.3 % (37.0-47.0); HEMOGLOBIN 12.2 G/DL (12.0-16.0); MEAN CORPUSCULAR VOLUME 89 FL (80-99); PLATELET COUNT 234 K/UL (150-450); RED BLOOD COUNT 4.32 M/UL (4.20-5.40); RED CELL DISTRIBUTION WIDTH 12.8 % (11.6-14.8); WHITE BLOOD COUNT 16.7 K/UL (4.8-10.8)
[2020-07-25 05:49] LABS: ALANINE AMINOTRANSFERASE 30 U/L (12-78); ALBUMIN 2.3 G/DL (3.4-5.0); ALBUMIN/GLOBULIN RATIO 0.5 (1.0-2.7); ALKALINE PHOSPHATASE 73 U/L (46-116); ANION GAP 9 mmol/L (5-15); ASPARTATE AMINO TRANSFERASE 25 U/L (15-37); BILIRUBIN,TOTAL 0.5 MG/DL (0.2-1.0); BLOOD UREA NITROGEN 29 mg/dL (7-18); CALCIUM 9.2 MG/DL (8.5-10.1); CARBON DIOXIDE 27 MMOL/L (21-32); CHLORIDE 103 MMOL/L (98-107); CREATININE 0.8 MG/DL (0.55-1.30); POTASSIUM 4.5 MMOL/L (3.5-5.1); SODIUM 139 MMOL/L (136-145)
--- NOTE | 2020-07-25 07:00 | NUR ---
NURSE NOTES: Pt desaturated to 81-82% on BiPAP 18/12, FiO2 100%. RT called, other interventions not working, settings had to be changed to 20/15, fiO2 100%. Left VM with Dr. Edward notifying him of the deteriorating status. Awaiting callback for new orders.
--- NOTE | 2020-07-25 07:26 | NUR ---
NURSE HAND-OFF REPORT: Important Events on Shift:[Desaturated to 82%, settings had to be changed] Patient Status: [poor] Diet: [NPO] Pending Orders: [NA] Pending Results/Labs:[NA] Pending MD notification:[NA] Latest Vital Signs: Temperature 98.1 , Pulse 112 , B/P 148 /88 , Respiratory Rate 36 , O2 SAT 89 , Nasal Cannula, O2 Flow Rate 15.0 . Vital Sign Comment: [] EKG Rhythm: Sinus Rhythm Rhythm change?: N MD Notified?: N - MD Response: Latest Plaza Fall Score: 30 Fall Risk: Medium Risk Safety Measures: Call light Within Reach, Bed Alarm Zone 3, Side Rails Side Rails x2, Bed position Low and Locked. Fall Precautions: Yellow Socks Report given to [LIANA Conroy].
[2020-07-25] MEDS: Enoxaparin 80mg Inj SUBQ SCH ×2 (08:06→22:01)
[2020-07-25] MEDS: Docusate 100mg cap ORAL SCH ×3 (08:06→21:00)
[2020-07-25] MEDS: Cefepime HCl 2 GM in D5W 55 ML IVPB SCH ×2 (08:08→21:00)
--- NOTE | 2020-07-25 10:58 | Nephrology Progress Note ---
Assessment/Plan Problem List: (1) Hyponatremia (2) Hypoxia (3) Pneumonitis (4) Acute respiratory failure due to COVID-19 (5) DMII (diabetes mellitus, type 2) (6) HTN (hypertension) Assessment Hyponatremia, improved with saline infusion COVID-19 infection Pneumonia, acute respiratory failure, hypoxia Diabetes mellitus Hypertension Plan July 25: Labs reviewed. Renal parameters stable. Continue per consultants. July 24: Labs reviewed. Renal parameters stable. Continue per pulmonary. Medication list reviewed. July 23: No labs drawn today. Medication list reviewed. Continue per solutions market consultant. Patient full code. July 22: Labs reviewed. Stable renal parameters. Continue per consultants. July 21: No CHEM panel drawn today. Stable from renal standpoint of view. Blood pressure stable. July 20: IV changed to D5W 50 cc an hour. Renal parameters stable. Continue per consultants. July 19: Pulmonary status remains unstable. Stable from renal standpoint of view. July 18: Labs reviewed. Stable renal parameters and electrolytes. Continue per consultants. July 17: No labs drawn today. Remains stable from renal standpoint today. July 16: No labs drawn today. Continue per consultants. Stable from renal standpoint of view. July 15: Labs reviewed. Renal parameters stable. July 14: No labs from today. Continue per current management. Check labs tomorrow. July 13: No labs drawn today. Stable from renal standpoint of view. July 12: Today's labs pending. Medication list reviewed. Continue per current management and consultants. July 11: Labs reviewed. Renal parameters stable. July 10: Labs reviewed. Renal parameters electrolytes stable. Continue per consultants. July 09: Labs reviewed. Renal parameters and electrolytes stable. Continue per ID and pulmonary. Subjective ROS Limited/Unobtainable: Yes Objective Objective Last 24 Hour Vital Signs Date Time Temp Pulse Resp B/P (MAP) Pulse Ox O2 Delivery O2 Flow Rate FiO2 07/25/20 08:58 114 07/25/20 06:49 89 Bi-Pap 100 07/25/20 06:46 112 36 89 100 07/25/20 04:00 100 07/25/20 04:00 101 07/25/20 04:00 Bi-pap 07/25/20 04:00 98.1 98 30 148/88 (108) 92 07/25/20 03:59 94 22 93 100 07/25/20 00:00 Bi-pap 07/25/20 00:00 100 07/25/20 00:00 110 07/25/20 00:00 98.2 95 27 139/84 (102) 91 07/24/20 23:56 106 31 91 100 07/24/20 20:00 Bi-pap 07/24/20 20:00 100 07/24/20 20:00 120 07/24/20 20:00 98.2 98 22 141/95 (110) 92 07/24/20 19:28 94 24 92 100 07/24/20 19:28 92 Bi-Pap 100 07/24/20 16:00 100 07/24/20 16:00 97.3 111 24 149/105 (120) 90 07/24/20 16:00 94 07/24/20 16:00 Bi-pap 07/24/20 15:02 89 22 91 100 07/24/20 12:43 91 149/101 07/24/20 12:00 Bi-pap 07/24/20 12:00 103 07/24/20 12:00 100 07/24/20 12:00 98.1 91 22 149/101 (117) 91 07/24/20 11:10 109 45 87 100 Intake and Output 07/24/20 07/25/20 19:00 07:00 Intake Total 1105 ml 160 ml Output Total 300 ml Balance 1105 ml -140 ml Intake Oral 50 ml IV Total 1055 ml 160 ml Output Urine Total 300 ml # Voids 2 Current Medications Medications (Trade) Dose Ordered Sig/Marian Route PRN Reason Start Time Stop Time Status Last Admin Dose Admin Acetaminophen (Tylenol) 650 mg Q4H PRN RECTAL Temp >100.5 07/18/20 18:30 08/17/20 18:29 07/18/20 18:40 Acetaminophen (Tylenol) 650 mg Q6H PRN ORAL For Pain 07/07/20 15:45 08/06/20 15:44 07/16/20 09:45 Acetaminophen (Tylenol) 650 mg Q6H PRN ORAL FEVER 07/07/20 16:15 08/06/20 16:14 07/18/20 05:48 Benzonatate (Tessalon Perles) 100 mg TIDPRN PRN ORAL For Cough 07/18/20 18:30 08/17/20 18:29 Cefepime HCl 2 gm/ Dextrose 55 ml @ 110 mls/hr Q12HR IVPB 07/22/20 13:00 07/29/20 12:59 07/25/20 08:08 Dextrose (Dextrose 50%) 25 ml Q30M PRN IV Hypoglycemia 07/07/20 15:45 10/05/20 15:44 Dextrose (Dextrose 50%) 50 ml Q30M PRN IV Hypoglycemia 07/07/20 15:45 10/05/20 15:44 Docusate Sodium (Colace) 100 mg EVERY 12 HOURS ORAL 07/12/20 21:00 08/08/20 08:59 07/24/20 08:46 Enoxaparin Sodium (Lovenox) 70 mg EVERY 12 HOURS SUBQ 07/25/20 21:00 10/23/20 20:59 Famotidine (Pepcid I.v.) 20 mg Q12HR IVP 07/20/20 09:00 08/19/20 08:59 07/25/20 08:06 Fluconazole/ Sodium Chloride 200 ml @ 100 mls/hr Q24H IV 07/22/20 14:00 07/29/20 13:59 07/24/20 13:18 Furosemide 100 mg/ Dextrose 100 ml @ 7.5 mls/hr [id number] IV 07/25/20 12:00 08/24/20 11:59 Methylprednisolone Sodium Succinate (Solu-MEDROL) 20 mg EVERY 6 HOURS IVP 07/22/20 12:00 10/19/20 08:59 07/25/20 05:03 Metoprolol Tartrate (Lopressor) 25 mg Q12HR ORAL 07/24/20 11:45 10/22/20 11:44 07/24/20 12:43 Laboratory Tests 07/24/20 15:40: D-Dimer 2.38H 07/25/20 04:55: White Blood Count 16.7H, Red Blood Count 4.32, Hemoglobin 12.2, Hematocrit 38.3, Mean Corpuscular Volume 89, Mean Corpuscular Hemoglobin 28.2, Mean Corpuscular Hemoglobin Concent 31.8L, Red Cell Distribution Width 12.8, Platelet Count 234, Mean Platelet Volume 9.5, Neutrophils (%) (Auto) , Lymphocytes (%) (Auto) , Monocytes (%) (Auto) , Eosinophils (%) (Auto) , Basophils (%) (Auto) , Differential Total Cells Counted 100, Neutrophils % (Manual) 95H, Lymphocytes % (Manual) 2L, Monocytes % (Manual) 3, Eosinophils % (Manual) 0, Basophils % (Manual) 0, Band Neutrophils 0, Platelet Estimate Adequate, Platelet Morphology Normal, Red Blood Cell Morphology Normal, Sodium Level 139, Potassium Level 4.5, Chloride Level 103, Carbon Dioxide Level 27, Anion Gap 9, Blood Urea Nitrogen 29H, Creatinine 0.8, Estimat Glomerular Filtration Rate > 60, Glucose Level 252H , Calcium Level 9.2, Total Bilirubin 0.5, Aspartate Amino Transf (AST/SGOT) 25, Alanine Aminotransferase (ALT/SGPT) 30, Alkaline Phosphatase 73, Total Protein 6.9, Albumin 2.3L, Globulin 4.6, Albumin/Globulin Ratio 0.5L 07/25/20 09:57: Arterial Blood pH 7.381, Arterial Blood Partial Pressure CO2 48.7H, Arterial Blood Partial Pressure O2 66.6L, Arterial Blood HCO3 28.2H, Arterial Blood Oxygen Saturation 90.6L, Arterial Blood Base Excess 2.4H, Timbo Test Positive Height (Feet): 5 Height (Inches): 3.00 Weight (Pounds): 162 General Appearance: no apparent distress Cardiovascular: tachycardia Respiratory/Chest: decreased breath sounds Abdomen: distended Objective No change Anurag Bridges MD Jul 25, 2020 10:58
--- NOTE | 2020-07-25 12:05 | Pulmonology Progress Note ---
Subjective ROS Limited/Unobtainable: Yes Interval Events: on BiPAP; desaturates rapidly on NRB Constitutional: Reports: no symptoms HEENT: Repors: no symptoms Respiratory: Reports: shortness of breath Gastrointestinal/Abdominal: Reports: no symptoms Psychiatric: Reports: no symptoms Skin: Reports: no symptoms Musculoskeletal: Reports: no symptoms Allergies: Coded Allergies: No Known Allergies (Unverified , 07/07/20) Objective Last 24 Hour Vital Signs Date Time Temp Pulse Resp B/P (MAP) Pulse Ox O2 Delivery O2 Flow Rate FiO2 07/25/20 08:58 114 07/25/20 06:49 89 Bi-Pap 100 07/25/20 06:46 112 36 89 100 07/25/20 04:00 100 07/25/20 04:00 101 07/25/20 04:00 Bi-pap 07/25/20 04:00 98.1 98 30 148/88 (108) 92 07/25/20 03:59 94 22 93 100 07/25/20 00:00 Bi-pap 07/25/20 00:00 100 07/25/20 00:00 110 07/25/20 00:00 98.2 95 27 139/84 (102) 91 07/24/20 23:56 106 31 91 100 07/24/20 20:00 Bi-pap 07/24/20 20:00 100 07/24/20 20:00 120 07/24/20 20:00 98.2 98 22 141/95 (110) 92 07/24/20 19:28 94 24 92 100 07/24/20 19:28 92 Bi-Pap 100 07/24/20 16:00 100 07/24/20 16:00 97.3 111 24 149/105 (120) 90 07/24/20 16:00 94 07/24/20 16:00 Bi-pap 07/24/20 15:02 89 22 91 100 07/24/20 12:43 91 149/101 Intake and Output 07/24/20 07/25/20 19:00 07:00 Intake Total 1105 ml 160 ml Output Total 300 ml Balance 1105 ml -140 ml Intake Oral 50 ml IV Total 1055 ml 160 ml Output Urine Total 300 ml # Voids 2 General Appearance: no acute distress HEENT: normocephalic Respiratory: decreased breath sounds Cardiovascular: normal peripheral pulses Abdomen: normal bowel sounds Laboratory Tests 07/24/20 15:40: D-Dimer 2.38H 07/25/20 04:55: White Blood Count 16.7H, Red Blood Count 4.32, Hemoglobin 12.2, Hematocrit 38.3, Mean Corpuscular Volume 89, Mean Corpuscular Hemoglobin 28.2, Mean Corpuscular Hemoglobin Concent 31.8L, Red Cell Distribution Width 12.8, Platelet Count 234, Mean Platelet Volume 9.5, Neutrophils (%) (Auto) , Lymphocytes (%) (Auto) , Monocytes (%) (Auto) , Eosinophils (%) (Auto) , Basophils (%) (Auto) , Differential Total Cells Counted 100, Neutrophils % (Manual) 95H, Lymphocytes % (Manual) 2L, Monocytes % (Manual) 3, Eosinophils % (Manual) 0, Basophils % (Manual) 0, Band Neutrophils 0, Platelet Estimate Adequate, Platelet Morphology Normal, Red Blood Cell Morphology Normal, Sodium Level 139, Potassium Level 4.5, Chloride Level 103, Carbon Dioxide Level 27, Anion Gap 9, Blood Urea Nitrogen 29H, Creatinine 0.8, Estimat Glomerular Filtration Rate > 60, Glucose Level 252H , Calcium Level 9.2, Total Bilirubin 0.5, Aspartate Amino Transf (AST/SGOT) 25, Alanine Aminotransferase (ALT/SGPT) 30, Alkaline Phosphatase 73, Total Protein 6.9, Albumin 2.3L, Globulin 4.6, Albumin/Globulin Ratio 0.5L 07/25/20 09:57: Arterial Blood pH 7.381, Arterial Blood Partial Pressure CO2 48.7H, Arterial Blood Partial Pressure O2 66.6L, Arterial Blood HCO3 28.2H, Arterial Blood Oxygen Saturation 90.6L, Arterial Blood Base Excess 2.4H, Timbo Test Positive Current Medications Medications (Trade) Dose Ordered Sig/Marian Route PRN Reason Start Time Stop Time Status Last Admin Dose Admin Acetaminophen (Tylenol) 650 mg Q4H PRN RECTAL Temp >100.5 07/18/20 18:30 08/17/20 18:29 07/18/20 18:40 Acetaminophen (Tylenol) 650 mg Q6H PRN ORAL For Pain 07/07/20 15:45 08/06/20 15:44 07/16/20 09:45 Acetaminophen (Tylenol) 650 mg Q6H PRN ORAL FEVER 07/07/20 16:15 08/06/20 16:14 07/18/20 05:48 Benzonatate (Tessalon Perles) 100 mg TIDPRN PRN ORAL For Cough 07/18/20 18:30 08/17/20 18:29 Cefepime HCl 2 gm/ Dextrose 55 ml @ 110 mls/hr Q12HR IVPB 07/22/20 13:00 07/29/20 12:59 07/25/20 08:08 Dextrose (Dextrose 50%) 25 ml Q30M PRN IV Hypoglycemia 07/07/20 15:45 10/05/20 15:44 Dextrose (Dextrose 50%) 50 ml Q30M PRN IV Hypoglycemia 07/07/20 15:45 10/05/20 15:44 Docusate Sodium (Colace) 100 mg EVERY 12 HOURS ORAL 07/12/20 21:00 08/08/20 08:59 07/24/20 08:46 Enoxaparin Sodium (Lovenox) 70 mg EVERY 12 HOURS SUBQ 07/25/20 21:00 10/23/20 20:59 Famotidine (Pepcid I.v.) 20 mg Q12HR IVP 07/20/20 09:00 08/19/20 08:59 07/25/20 08:06 Fluconazole/ Sodium Chloride 200 ml @ 100 mls/hr Q24H IV 07/22/20 14:00 07/29/20 13:59 07/24/20 13:18 Furosemide 100 mg/ Dextrose 100 ml @ 7.5 mls/hr [id number] IV 07/25/20 12:00 08/24/20 11:59 Methylprednisolone Sodium Succinate (Solu-MEDROL) 20 mg EVERY 6 HOURS IVP 07/22/20 12:00 10/19/20 08:59 07/25/20 05:03 Metoprolol Tartrate (Lopressor) 25 mg Q12HR ORAL 07/24/20 11:45 10/22/20 11:44 07/24/20 12:43 Assessment/Plan Assessment/Plan 1. COVID-19 pneumonia. - COVID-19 PCR positive (07/07) -> continue isolation - s/p remdexsivir - s/p azithromycin - CXR (07/13) no significant change 2. Hypoxemic respiratory distress - s/p decadron (07/08-07/17) - now on Solu-Medrol - desaturated on BiPAP 17/01, 100% FiO2 -> now 19/05 -> - Encourage proning - ABG slight improvement; continue current management 3. Hypertension. 4. Diabetes mellitus. 5. DVT ppx - on Lovenox - f/u D-dimer (07/20) more elevated + tachycardia-> will order CTA chest given S/Sx of PE -> Pt not candidate for CTA chest or V/Q scan given her high flow oxygen requirement; continue full dose Lovenox and monitor - f/u D-dimer (07/24) 6. Sputum Cx shows pseudomonas and cony - on Abx 7. Suspect bacterial infection given leukocytosis - ordered fungal culture, BCx (07/20) - on empiric Diflucan; WBC better - On Cefepime 8. Pulmonary edema - restart furosemide gtt 7.5 ml/hr; Dw primary MD Discussed with bedside RN. The care for this patient was discussed with my supervising physician Time spent for this case was approximately 31 minutes Milton Howard Jul 25, 2020 12:05
[2020-07-25] MEDS: FLUCONAZOLE 400 MG/200 ML IV SCH (15:29)
--- NOTE | 2020-07-25 16:15 | NUR ---
NURSE NOTES: Pt telemetry alarm going off @ 145. pt in ST. pt found to be tachypneic and very SOB. pt verbalize being very tired and wanting to be intubated. pt in resp distress. Dr. Cheyanne morfin. M[employer]AIN [employer] GUIDE called. EKG done. pt prepared for transfer to ICU. Lasix gtt infusing with good urine output. ER MD at bedside. pt prepared for intubation. After pt intubated pt transferred to ICU.
--- NOTE | 2020-07-25 16:45 | NUR ---
NURSE NOTES: BRAZING MACHINE OPERATOR AUTOMATIC called to SDU Room 236. On arrival, Pt observed on a BiPAP, struggling to breathe, nodding her head "yes" when asked if she was short of breath. O2sat 84-88%, B/P: 158/110, P: 133, Temp 97.7. ABG and EKG done. Dr Edward notified and pt was ordered to be intubated. Procedure explained to pt. ER doctor intubated pt after pt received 20mg Etomidate and 50mg of Rocuronium. Pt transferred to ICU. STAT CXRAY ordered.
--- NOTE | 2020-07-25 16:47 | Emergency Room Report ---
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 COVID-19 Screening: Positive COVID-19 COVID-19 Testing Source: 06/03/20 Nursing Documentation-[facility] Past Medical History: No History, Except For Hx Cardiac Problems: No Hx Hypertension: Yes Hx Pacemaker: No Hx Asthma: No Hx COPD: No Hx Diabetes: Yes Hx Cancer: No Hx Gastrointestinal Problems: No Hx Dialysis: No History Of Psychiatric Problem: No Hx Neurological Problems: No Hx Cerebrovascular Accident: No Hx Seizures: No Physical Exam Vital Signs Date Time Temp Pulse Resp B/P (MAP) Pulse Ox O2 Delivery O2 Flow Rate FiO2 07/21/20 07:45 93 Bi-Pap 100 07/21/20 07:45 117 32 07/21/20 08:00 98.1 129/85 (100) Procedures Intubation Intubation : Consent: Verbal Intubation Method: orotracheal Tube Size (cm): 7.5 Medications: Etomidate, Rocuronium Breath Sounds after Intubation: equal Intubation Complications: no complications Post Intubation Xray: Yes - pending Attempts: One Patient Tolerated: Well Complications: None Medical Decision Making Diagnostic Impression: Primary Impression: Coronavirus infection Additional Impressions: Hyponatremia Hypoxia Pneumonitis ER Course I was called to intubate patient who had been admitted for COVID-19 pneumonia and hypoxia. Patient has been on BiPAP. Patient is failing BiPAP and is tachypneic and short of breath. Patient was intubated without complication. Please refer to intubation note. Chest x-ray has been ordered and is pending. Patient remains in critical condition and has been upgraded to the ICU. Last Vital Signs Date Time Temp Pulse Resp B/P (MAP) Pulse Ox O2 Delivery O2 Flow Rate FiO2 07/25/20 12:00 121 07/25/20 06:49 89 Bi-Pap 100 07/25/20 06:46 36 07/25/20 04:00 98.1 148/88 (108) Disposition: ADMITTED INPATIENT Condition: Stable Referrals: NOT CHOSEN IPA/MD,REFERRING (PCP) Additional Instructions: Please note that this report is being documented using Digital Folio technology. This can lead to erroneous entry secondary to incorrect interpretation by the dictating instrument. Sofi Goodrich M.D. Jul 25, 2020 16:47
[2020-07-25] MEDS ORDERED: Versed 100mg/NS 200ml 200 ML IV PRN (17:25)
[2020-07-25] MEDS ORDERED: fentaNYL 2500mcg/NS 250ml 250 ML IV PRN (17:27)
[2020-07-25] MEDS ORDERED: Digoxin 0.5mg/2ml Inj IVP SCH (17:45)
--- NOTE | 2020-07-25 17:45 | NUR ---
NURSE NOTES: Dr. Edward contacted for sedation orders. IV access obtained and Versed gtt started @ 4mg/hr followed by Fentanyl gtt @ 10mcg/hr. At approx 1800 pt starts to desat down to 59%. pt orally suctioned of large amounts of thick bloody clotted secretions. Also ETT suctioned of same type of secretions. After frequent suctioning and levaging by RT and ETT pulled back by 1cm, O2 sats increased to 97%.
--- NOTE | 2020-07-25 17:58 | Cardiology Progress Note ---
Assessment/Plan Status: deteriorating Assessment/Plan 1. COVID-19 viral PNA on remdesivir and dexamethasone WBCs elevated 2. Respiratory failure 2/2 acute PNA Intubated 07/25/20 3. HFpEF acute on chronic diastolic HF with preserved EF EF 65%, repeat echo post intubation pending Repeat BNP pending Lasix drip per pulmonology 4. DMII 5. GERD Pt in sinus tach before and after intubation, given one dose digoxin IV for rate control, Bb increased. BNP and echo repeat studies pending. SBP 120's, not on pressors. Further recs to follow. Subjective ROS Limited/Unobtainable: Yes Subjective Intubated this evening, in sinus tach, not on pressors. Seen in ICU Objective Last 24 Hour Vital Signs Date Time Temp Pulse Resp B/P (MAP) Pulse Ox O2 Delivery O2 Flow Rate FiO2 07/25/20 12:00 121 07/25/20 08:58 114 07/25/20 06:49 89 Bi-Pap 100 07/25/20 06:46 112 36 89 100 07/25/20 04:00 100 07/25/20 04:00 101 07/25/20 04:00 Bi-pap 07/25/20 04:00 98.1 98 30 148/88 (108) 92 07/25/20 03:59 94 22 93 100 07/25/20 00:00 Bi-pap 07/25/20 00:00 100 07/25/20 00:00 110 07/25/20 00:00 98.2 95 27 139/84 (102) 91 07/24/20 23:56 106 31 91 100 07/24/20 20:00 Bi-pap 07/24/20 20:00 100 07/24/20 20:00 120 07/24/20 20:00 98.2 98 22 141/95 (110) 92 07/24/20 19:28 94 24 92 100 07/24/20 19:28 92 Bi-Pap 100 General Appearance: on vent, patient on isolation, isolation precautions Neck: JVD Rhythm: ST Cardiovascular: tachycardia Abdomen: soft Extremities: trace edema Intake and Output 07/24/20 07/25/20 19:00 07:00 Intake Total 1105 ml 160 ml Output Total 300 ml Balance 1105 ml -140 ml Intake Oral 50 ml IV Total 1055 ml 160 ml Output Urine Total 300 ml # Voids 2 Laboratory Tests Test 07/25/20 04:55 07/25/20 09:57 07/25/20 13:57 White Blood Count 16.7 K/UL (4.8-10.8) H Red Blood Count 4.32 M/UL (4.20-5.40) Hemoglobin 12.2 G/DL (12.0-16.0) Hematocrit 38.3 % (37.0-47.0) Mean Corpuscular Volume 89 FL (80-99) Mean Corpuscular Hemoglobin 28.2 PG (27.0-31.0) Mean Corpuscular Hemoglobin Concent 31.8 G/DL (32.0-36.0) L Red Cell Distribution Width 12.8 % (11.6-14.8) Platelet Count 234 K/UL (150-450) Mean Platelet Volume 9.5 FL (6.5-10.1) Neutrophils (%) (Auto) % (45.0-75.0) Lymphocytes (%) (Auto) % (20.0-45.0) Monocytes (%) (Auto) % (1.0-10.0) Eosinophils (%) (Auto) % (0.0-3.0) Basophils (%) (Auto) % (0.0-2.0) Differential Total Cells Counted 100 Neutrophils % (Manual) 95 % (45-75) H Lymphocytes % (Manual) 2 % (20-45) L Monocytes % (Manual) 3 % (1-10) Eosinophils % (Manual) 0 % (0-3) Basophils % (Manual) 0 % (0-2) Band Neutrophils 0 % (0-8) Platelet Estimate Adequate Platelet Morphology Normal Red Blood Cell Morphology Normal Sodium Level 139 MMOL/L (136-145) Potassium Level 4.5 MMOL/L (3.5-5.1) Chloride Level 103 MMOL/L (98-107) Carbon Dioxide Level 27 MMOL/L (21-32) Anion Gap 9 mmol/L (5-15) Blood Urea Nitrogen 29 mg/dL (7-18) H Creatinine 0.8 MG/DL (0.55-1.30) Estimat Glomerular Filtration Rate > 60 mL/min (>60) Glucose Level 252 MG/DL (74-106) H Calcium Level 9.2 MG/DL (8.5-10.1) Total Bilirubin 0.5 MG/DL (0.2-1.0) Aspartate Amino Transf (AST/SGOT) 25 U/L (15-37) Alanine Aminotransferase (ALT/SGPT) 30 U/L (12-78) Alkaline Phosphatase 73 U/L (46-116) Total Protein 6.9 G/DL (6.4-8.2) Albumin 2.3 G/DL (3.4-5.0) L Globulin 4.6 g/dL Albumin/Globulin Ratio 0.5 (1.0-2.7) L Arterial Blood pH 7.381 (7.350-7.450) Arterial Blood Partial Pressure CO2 48.7 mmHg (35.0-45.0) H Arterial Blood Partial Pressure O2 66.6 mmHg (75.0-100.0) L Arterial Blood HCO3 28.2 mmol/L (22.0-26.0) H Arterial Blood Oxygen Saturation 90.6 % (95-100) L Arterial Blood Base Excess 2.4 (-2-2) H Timbo Test Positive POC Whole Blood Glucose 226 MG/DL (74-106) H Blanca Lobato PA-C Jul 25, 2020 17:58
[2020-07-25] MEDS: Metoprolol Tartrate 50mg tab ORAL SCH (18:01)
--- NOTE | 2020-07-25 18:15 | Diagnostic Imaging Report ---
EXAM: XR Chest, 1 View CLINICAL HISTORY: S/P INTUB TECHNIQUE: Frontal view of the chest. COMPARISON: 07/21/2020. FINDINGS: Lungs: Continued bilateral airspace disease. Slight improved lung aeration. Pleural space: Unremarkable. No pneumothorax. Heart: Cardiac silhouette is stable. Mediastinum: Unremarkable. Bones/joints: No acute osseous abnormality. Tubes, lines and devices: ET tube is 1.2 cm above the yareli. IMPRESSION: 1. ET tube is 1.2 cm above the yareli. Ideally, this should be retracted at least 1 cm. 2. Continued bilateral airspace disease. Slight improved lung aeration.
--- NOTE | 2020-07-25 18:17 | Diagnostic Imaging Report ---
EXAM: XR Abdomen, 2 Views CLINICAL HISTORY: TUBE PLCMT TECHNIQUE: Frontal view of the abdomen/pelvis with upright view of the abdomen. COMPARISON: No relevant prior studies available. FINDINGS: Lower thorax: Bibasilar airspace disease. Intraperitoneal space: No free air. Gastrointestinal tract: Unremarkable. No dilation. Bones/joints: No acute osseous abnormality. Tubes, lines and devices: Enteric tube tip and side-port in the mid stomach. IMPRESSION: Enteric tube tip and side-port in the mid stomach.
--- NOTE | 2020-07-25 19:15 | NUR ---
NURSE HAND-OFF REPORT: Latest Vital Signs: Temperature 97.7 , Pulse 126 , B/P 115 /64 , Respiratory Rate 15 , O2 SAT 88 , Mechanical Ventilator, O2 Flow Rate 15.0 . Vital Sign Comment: EKG Rhythm: Sinus Tachycardia Rhythm change?: N MD Notified?: N - MD Response: Latest Plaza Fall Score: 30 Fall Risk: Medium Risk Safety Measures: Call light Within Reach, Bed Alarm Zone 3, Side Rails Side Rails x2, Bed position Low and Locked. Fall Precautions: Yellow Socks Report given to LIANA Bone.
--- NOTE | 2020-07-25 19:59 | NUR ---
NURSE NOTES: Called Dr. Edward and left message regarding PT BP now at 76/55- 65/49. Charge nurse aware.
[2020-07-25] MEDS: Dyna-Hex 2% Top Sol 2oz TOPIC SCH (20:00)
--- NOTE | 2020-07-25 20:20 | NUR ---
NURSE NOTES: Dr. Edward called back and gave orders. informed MD that the patient family wants the MD to call them for update. per Dr. Edward call the primary Dr. Malcolm. Charge nurse aware. Called ER spoke with Walter GAINES to inform MD for central line insertion per Dr. Edward.
--- NOTE | 2020-07-25 20:25 | NUR ---
NURSE NOTES: Called Dr. Malcolm and left message regarding patient family wants to speak to MD.
--- NOTE | 2020-07-25 20:30 | NUR ---
NURSE NOTES: patient BP 111/73. ST on radiographer cardiac catheterization HR 105. held sedation patient patient in deep sedation. no moaning no facial grimaces. will continue to monitor patient, Orally intubated Fi02 100% satting 100%. no fever. ogt intact no residual. IV line intact on right hand infusing Lasix at 7.5cc/hr. no s/s of acute distress noted. no s/s of hypo/hyperglycemia. Airborne precaution maintained and observed. will continue plan of care.
[2020-07-25] MEDS: D5 1/2NS 1,000 ML IV SCH (20:45)
--- NOTE | 2020-07-25 22:30 | NUR ---
NURSE NOTES: Patient in bed fi01 100% satting 100%. BP 122/87 HR 104. no fever. no s/s of acute distress noted. turned and repositioned . oral care provided. will continue plan of care. Addendum: 07/26/20 at 0146 by ROBBIN LANZA RN [facility]
[2020-07-26] VITALS (36 sets, daily range): BP systolic 91–148; BP diastolic 64–100
--- NOTE | 2020-07-26 00:30 | NUR ---
NURSE NOTES: Patient in bed sleeping comfortably. fi02 100% satting 100%. BP 139/93 HR 106. no fever. no s/s of acute distress noted. turned and repositioned . oral care provided. Fernandez draining. will continue plan of care.
[2020-07-26] MEDS: Solu-MEDROL 40mg Inj IVP SCH ×4 (01:01→17:36)
--- NOTE | 2020-07-26 01:30 | NUR ---
NURSE NOTES: patient awake,alert to name but restless explained to patient that shes in ICU, instructed patient to do relaxation technique. suctioned orally. restarted sedation Fentanyl at 10mcg/hr, Versed 1mg/hr
--- NOTE | 2020-07-26 03:30 | NUR ---
NURSE NOTES: Bed bath given tolerated well.
--- NOTE | 2020-07-26 05:30 | NUR ---
NURSE NOTES: Patient in bed sedated Rass Score -2 on Fentanyl at 10mcg/hr, Versed 2mg/hr,Lasix 7.5cc/gr and D51/2 NS at 100cc/hr. no s/s of acute distress noted. BP 128/82 HR 102. no fever. frequent visual checks continue. bilateral wrist restraint checked. will continue plan of care.
[2020-07-26 05:42] LABS: HEMATOCRIT 42.4 % (37.0-47.0); HEMOGLOBIN 13.2 G/DL (12.0-16.0); MEAN CORPUSCULAR VOLUME 90 FL (80-99); PLATELET COUNT 219 K/UL (150-450); RED BLOOD COUNT 4.72 M/UL (4.20-5.40); WHITE BLOOD COUNT 20.3 K/UL (4.8-10.8)
[2020-07-26 06:00] LABS: ALANINE AMINOTRANSFERASE 38 U/L (12-78); ALBUMIN 2.6 G/DL (3.4-5.0); ALBUMIN/GLOBULIN RATIO 0.5 (1.0-2.7); ALKALINE PHOSPHATASE 80 U/L (46-116); ANION GAP 15 mmol/L (5-15); ASPARTATE AMINO TRANSFERASE 31 U/L (15-37); BILIRUBIN,TOTAL 0.6 MG/DL (0.2-1.0); BLOOD UREA NITROGEN 35 mg/dL (7-18); CALCIUM 8.9 MG/DL (8.5-10.1); CARBON DIOXIDE 27 MMOL/L (21-32); CHLORIDE 98 MMOL/L (98-107); CREATININE 0.9 MG/DL (0.55-1.30); POTASSIUM 3.9 MMOL/L (3.5-5.1); SODIUM 140 MMOL/L (136-145)
[2020-07-26] MEDS: Metoprolol Tartrate 50mg tab ORAL SCH ×2 (06:00→13:01)
[2020-07-26] MEDS: D5 1/2NS 1,000 ML IV SCH (06:37)
--- NOTE | 2020-07-26 07:30 | NUR ---
NURSE HAND-OFF REPORT: Latest Vital Signs: Temperature 96.6 , Pulse 107 , B/P 117 /81 , Respiratory Rate 20 , O2 SAT 99 , Mechanical Ventilator, O2 Flow Rate . Vital Sign Comment: EKG Rhythm: Sinus Tachycardia Rhythm change?: N MD Notified?: N - MD Response: Latest Plaza Fall Score: 30 Fall Risk: Medium Risk Safety Measures: Call light Within Reach, Bed Alarm Zone 3, Side Rails Side Rails x2, Bed position Low and Locked. Fall Precautions: Yellow Socks Report given to HIREN GAINES. LEFT MESSAGE TO PATIENT LENNY ADORNO REGARDING PATIENT BELONGINGS.
--- NOTE | 2020-07-26 07:31 | NUR ---
NURSE NOTES: Pt received from [facility]. Pt is sedated, opens eyes to voice and makes eye contact for approx 6 sec, RASS noted -2; gag reflex intact, pt withdraws to pain, PERRLA +. 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 2+ Pt is orally intubated with a 7.5 ETT noted 24 cm at the lip (was previously 25 cm and adjusted per recent CXR recommendation according to Smitha) with the following settings: AC 16 TV 450 FiO2 100 % Peep 5. (will titrate down FiO2 per ABG results). lung sargent noted diminished upon auscultation. Pt has an OGT clamped at this time - pt is NPO (will f/u with RD recommendation). Abdomen is round, soft, and non-tender w/ active bowel sounds to all quadrants. F/C noted draining yellow, clear urine. skin is intact. Pt has a RH 22g IVs x 2 and RH 20g IV running lasix gtt at 7.5 mg/hr, fentanyl gtt at 10 mcg/hr, and versed gtt at 2 mg/hr. [employer] wrist restraints noted - radial pulses palpable - skin to wrists intact without redness. Bed in lowest position, alarm on, side rails up x 2, call light within reach, belongings at bedside (pt has cell phone and 1 checkbook reviewed with Smitha). Will continue to monitor.
--- NOTE | 2020-07-26 07:57 | NUR ---
RD ASSESSMENT & RECOMMENDATIONS SEE CARE ACTIVITY FOR COMPLETE ASSESSMENT DAILY ESTIMATED NEEDS: Needs based on Critical care, DM, pulmonary/ 57.6kg abw 22-28 kcals/kg 7056-1241 total kcals 1.2-2 g protein/kg 69-115 g total protein Fluid per MD, on lasix NUTRITION DIAGNOSIS: Altered nutrition related lab values R/T diabetes and steroidal med as evidenced by A1C 6.9 w/ elev POC (138-204), now on solumedrol. CURRENT DIET:NPO ENTERAL NUTRITION RECOMMENDATIONS: Glucerna 1.2 goal of 55ml/hr x24 hrs to provide 1320ml, 1584 kcal, 79g pro, 1063ml free H2O - As medically able, rec non oral feeds as pt is now intubated. - Start Glucerna 1.2 @low rate 25ml/hr for 6 hrs, advance as tolerated 10ml/hr q4-6 hrs to goal. - Flush per MD - HOB over 30 degrees ADDITIONAL RECOMMENDATIONS: * Calibrated bedscale wt * Monitor respiratory status, PO tolerance - on NRB mask at this time * Now intubated, TF recs above to meet est kcal and pro needs * Rec insulin coverage, BG high (200's) * Feed w/ hemodynamic stability .
[2020-07-26] MEDS ORDERED: Heparin1,000 units/500ml Premix(Conc:2 units/ml) IV ONE (08:00)
[2020-07-26] MEDS ORDERED: Lidocaine 1% Plain 30 ml INJ ONE (08:00)
--- NOTE | 2020-07-26 08:00 | NUR ---
NURSE NOTES: Pt repositioned. Afebrile with cooling measures on monitor mode. PO care provided. FiO2 titrated to 80 %. No distress noted.
[2020-07-26] MEDS: Enoxaparin 80mg Inj SUBQ SCH ×2 (09:11→20:08)
[2020-07-26] MEDS: Cefepime HCl 2 GM in D5W 55 ML IVPB SCH ×2 (09:11→20:08)
--- NOTE | 2020-07-26 09:42 | Diagnostic Imaging Report ---
Indication: Reason For Exam: DYSPNEA Technique: XRAY Chest 1v. Comparison: 07/25/2020 Findings: The cardiomediastinal silhouette is unchanged. No new infiltrates are identified. A nasogastric tube is now present with the tip below the diaphragm. Endotracheal tube remains at the yareli. Impression: Placement of NG tube. No other significant change from prior examination.
--- NOTE | 2020-07-26 10:00 | NUR ---
NURSE NOTES: Pt seen by Dr De Luna. Repositioned. No distress noted.
--- NOTE | 2020-07-26 10:20 | NUR ---
NURSE NOTES: Pt seen by Dr Brigdes - all labs reviewed.
--- NOTE | 2020-07-26 10:24 | General Progress Note ---
Subjective ROS Limited/Unobtainable: No Allergies: Coded Allergies: No Known Allergies (Unverified , 07/07/20) Objective Last 24 Hour Vital Signs Date Time Temp Pulse Resp B/P (MAP) Pulse Ox O2 Delivery O2 Flow Rate FiO2 07/26/20 08:00 80 07/26/20 07:15 102 21 80 07/26/20 06:00 107 110/86 07/26/20 06:00 20 117/81 Mechanical Ventilator 40 07/26/20 06:00 22 117/81 Mechanical Ventilator 40 07/26/20 05:09 107 20 100 07/26/20 05:00 24 122/86 Mechanical Ventilator 40 07/26/20 05:00 24 122/86 Mechanical Ventilator 40 07/26/20 04:45 105 21 126/88 (101) 99 07/26/20 04:30 102 23 123/85 (98) 100 07/26/20 04:15 102 23 124/78 (93) 99 07/26/20 04:00 Mechanical Ventilator 07/26/20 04:00 100 07/26/20 04:00 24 135/97 Mechanical Ventilator 40 07/26/20 04:00 24 135/97 Mechanical Ventilator 40 07/26/20 04:00 101 07/26/20 04:00 96.6 101 24 135/97 (110) 100 07/26/20 03:45 100 22 123/83 (96) 100 07/26/20 03:30 98 23 122/91 (101) 100 07/26/20 03:24 104 33 100 07/26/20 03:15 110 28 118/75 (89) 100 07/26/20 03:00 16 118/75 Mechanical Ventilator 100 07/26/20 03:00 16 118/75 Mechanical Ventilator 100 07/26/20 03:00 104 24 127/85 (99) 100 07/26/20 02:45 105 24 126/86 (99) 100 07/26/20 02:30 105 24 124/82 (96) 100 07/26/20 02:15 104 23 128/91 (103) 100 07/26/20 02:00 22 137/91 Mechanical Ventilator 100 07/26/20 02:00 22 137/91 Mechanical Ventilator 100 07/26/20 02:00 109 22 137/91 (106) 100 07/26/20 01:45 119 27 140/99 (113) 99 07/26/20 01:45 22 140/90 Mechanical Ventilator 100 07/26/20 01:45 22 140/90 Mechanical Ventilator 100 07/26/20 01:30 22 140/99 Mechanical Ventilator 100 07/26/20 01:30 22 140/99 Mechanical Ventilator 100 07/26/20 01:30 120 15 148/100 (116) 97 07/26/20 01:16 129 33 100 07/26/20 00:30 102 22 121/87 (98) 99 07/26/20 00:15 102 23 125/84 (98) 100 07/26/20 00:00 102 07/26/20 00:00 Mechanical Ventilator 07/26/20 00:00 97.9 101 23 119/83 (95) 100 07/25/20 23:45 102 23 124/85 (98) 99 07/25/20 23:30 102 23 118/84 (95) 100 07/25/20 23:22 123 30 100 07/25/20 23:15 102 22 125/83 (97) 99 07/25/20 23:00 102 23 123/88 (100) 100 07/25/20 22:45 103 23 122/87 (99) 100 07/25/20 22:30 105 25 125/92 (103) 99 07/25/20 22:15 104 22 124/88 (100) 99 07/25/20 22:00 106 22 123/82 (96) 99 07/25/20 21:42 109 20 100 07/25/20 21:15 109 22 115/81 (92) 100 07/25/20 21:00 106 21 111/83 (92) 100 07/25/20 20:45 106 22 111/73 (86) 100 07/25/20 20:30 126/88 07/25/20 20:30 103 20 109/73 (85) 100 07/25/20 20:15 108 23 94/67 (76) 100 07/25/20 20:00 109 07/25/20 20:00 Mechanical Ventilator 07/25/20 20:00 97.9 118 25 79/58 (65) 97 07/25/20 20:00 100 07/25/20 19:02 126 15 100 07/25/20 17:50 16 115/64 Mechanical Ventilator 100 07/25/20 17:30 16 115/64 Mechanical Ventilator 100 07/25/20 16:36 137 18 100 07/25/20 16:00 Bi-pap 07/25/20 16:00 100 07/25/20 16:00 130 07/25/20 16:00 97.7 131 22 156/103 (120) 88 07/25/20 12:00 97.9 120 24 154/101 (118) 91 07/25/20 12:00 Bi-pap 07/25/20 12:00 121 07/25/20 12:00 100 07/25/20 11:17 121 37 91 100 Intake and Output 07/25/20 07/26/20 19:00 07:00 Intake Total 902.542 ml 1197.50 ml Output Total 1000 ml 2050 ml Balance -97.458 ml -852.50 ml IV Total 902.542 ml 1197.50 ml Output Urine Total 1000 ml 2050 ml # Bowel Movements 1 Laboratory Tests 07/25/20 13:57: POC Whole Blood Glucose 226H 07/25/20 18:25: D-Dimer 4.21H, Magnesium Level 3.0H, Troponin I 0.014, Pro-B-Type Natriuretic Peptide 567H 07/25/20 19:12: Arterial Blood pH 7.333L, Arterial Blood Partial Pressure CO2 47.0H, Arterial Blood Partial Pressure O2 74.0L, Arterial Blood HCO3 24.4, Arterial Blood Oxygen Saturation 91.9L, Arterial Blood Base Excess -1.8, Timbo Test Positive 07/26/20 03:55: White Blood Count 20.3H, Red Blood Count 4.72, Hemoglobin 13.2, Hematocrit 42.4, Mean Corpuscular Volume 90, Mean Corpuscular Hemoglobin 28.0, Mean Corpuscular Hemoglobin Concent 31.1L, Red Cell Distribution Width 13.0, Platelet Count 219, Mean Platelet Volume 9.4, Neutrophils (%) (Auto) , Lymphocytes (%) (Auto) , Monocytes (%) (Auto) , Eosinophils (%) (Auto) , Basophils (%) (Auto) , Differential Total Cells Counted 100, Neutrophils % (Manual) 93H, Lymphocytes % (Manual) 3L, Monocytes % (Manual) 4, Eosinophils % (Manual) 0, Basophils % (Manual) 0, Band Neutrophils 0, Platelet Estimate Adequate, Platelet Morphology Normal, Red Blood Cell Morphology Normal, Sodium Level 140, Potassium Level 3.9, Chloride Level 98, Carbon Dioxide Level 27, Anion Gap 15, Blood Urea Nitrogen 35H, Creatinine 0.9, Estimat Glomerular Filtration Rate > 60, Glucose Level 402#H, Calcium Level 8.9, Total Bilirubin 0.6, Aspartate Amino Transf (AST/SGOT) 31, Alanine Aminotransferase (ALT/SGPT) 38, Alkaline Phosphatase 80, Total Protein 7.4, Albumin 2.6L, Globulin 4.8, Albumin/Globulin Ratio 0.5L 07/26/20 07:37: Arterial Blood pH 7.415, Arterial Blood Partial Pressure CO2 46.3H, Arterial Blood Partial Pressure O2 81.0, Arterial Blood HCO3 29.0H, Arterial Blood Oxygen Saturation 94.3L, Arterial Blood Base Excess 3.7H, Timbo Test Positive Height (Feet): 5 Height (Inches): 3.00 Weight (Pounds): 162 General Appearance: lethargic EENT: normal ENT inspection Neck: supple Cardiovascular: normal rate Respiratory/Chest: decreased breath sounds Abdomen: hypoactive bowel sounds Extremities: non-tender Assessment/Plan Problem List: (1) Dysphagia ICD Codes: R13.10 - Dysphagia, unspecified SNOMED: 39499998, 305971742 (2) COVID-19 virus infection ICD Codes: U07.1 - COVID-19 SNOMED: 396624596 (3) HTN (hypertension) ICD Codes: I10 - Essential (primary) hypertension SNOMED: 96898697 (4) DMII (diabetes mellitus, type 2) ICD Codes: E11.9 - Type 2 diabetes mellitus without complications SNOMED: 09878627 Status: deteriorating Assessment/Plan: coverage note for dr Malcolm intubated over night NGTF DM control abx per ID will Steffen Webster MD Jul 26, 2020 10:24
--- NOTE | 2020-07-26 10:46 | NUR ---
NURSE NOTES: Pt seen by Dr Edward.
--- NOTE | 2020-07-26 10:49 | NUR ---
RADIOLOGY DEPT., CHEST X-RAY DONE.-P.DYE
--- NOTE | 2020-07-26 11:02 | Pulmonology Progress Note ---
Subjective ROS Limited/Unobtainable: No Interval Events: S/p intubation 07/25/20 Constitutional: Reports: no symptoms HEENT: Repors: no symptoms Respiratory: Reports: shortness of breath Gastrointestinal/Abdominal: Reports: no symptoms Psychiatric: Reports: no symptoms Skin: Reports: no symptoms Musculoskeletal: Reports: no symptoms Allergies: Coded Allergies: No Known Allergies (Unverified , 07/07/20) Objective Last 24 Hour Vital Signs Date Time Temp Pulse Resp B/P (MAP) Pulse Ox O2 Delivery O2 Flow Rate FiO2 07/26/20 08:00 80 07/26/20 07:15 102 21 80 07/26/20 06:00 107 110/86 07/26/20 06:00 20 117/81 Mechanical Ventilator 40 07/26/20 06:00 22 117/81 Mechanical Ventilator 40 07/26/20 05:09 107 20 100 07/26/20 05:00 24 122/86 Mechanical Ventilator 40 07/26/20 05:00 24 122/86 Mechanical Ventilator 40 07/26/20 04:45 105 21 126/88 (101) 99 07/26/20 04:30 102 23 123/85 (98) 100 07/26/20 04:15 102 23 124/78 (93) 99 07/26/20 04:00 Mechanical Ventilator 07/26/20 04:00 100 07/26/20 04:00 24 135/97 Mechanical Ventilator 40 07/26/20 04:00 24 135/97 Mechanical Ventilator 40 07/26/20 04:00 101 07/26/20 04:00 96.6 101 24 135/97 (110) 100 07/26/20 03:45 100 22 123/83 (96) 100 07/26/20 03:30 98 23 122/91 (101) 100 07/26/20 03:24 104 33 100 07/26/20 03:15 110 28 118/75 (89) 100 07/26/20 03:00 16 118/75 Mechanical Ventilator 100 07/26/20 03:00 16 118/75 Mechanical Ventilator 100 07/26/20 03:00 104 24 127/85 (99) 100 07/26/20 02:45 105 24 126/86 (99) 100 07/26/20 02:30 105 24 124/82 (96) 100 07/26/20 02:15 104 23 128/91 (103) 100 07/26/20 02:00 22 137/91 Mechanical Ventilator 100 07/26/20 02:00 22 137/91 Mechanical Ventilator 100 07/26/20 02:00 109 22 137/91 (106) 100 07/26/20 01:45 119 27 140/99 (113) 99 07/26/20 01:45 22 140/90 Mechanical Ventilator 100 07/26/20 01:45 22 140/90 Mechanical Ventilator 100 07/26/20 01:30 22 140/99 Mechanical Ventilator 100 07/26/20 01:30 22 140/99 Mechanical Ventilator 100 07/26/20 01:30 120 15 148/100 (116) 97 07/26/20 01:16 129 33 100 07/26/20 00:30 102 22 121/87 (98) 99 07/26/20 00:15 102 23 125/84 (98) 100 07/26/20 00:00 102 07/26/20 00:00 Mechanical Ventilator 07/26/20 00:00 97.9 101 23 119/83 (95) 100 07/25/20 23:45 102 23 124/85 (98) 99 07/25/20 23:30 102 23 118/84 (95) 100 07/25/20 23:22 123 30 100 07/25/20 23:15 102 22 125/83 (97) 99 07/25/20 23:00 102 23 123/88 (100) 100 07/25/20 22:45 103 23 122/87 (99) 100 07/25/20 22:30 105 25 125/92 (103) 99 07/25/20 22:15 104 22 124/88 (100) 99 07/25/20 22:00 106 22 123/82 (96) 99 07/25/20 21:42 109 20 100 07/25/20 21:15 109 22 115/81 (92) 100 07/25/20 21:00 106 21 111/83 (92) 100 07/25/20 20:45 106 22 111/73 (86) 100 07/25/20 20:30 126/88 07/25/20 20:30 103 20 109/73 (85) 100 07/25/20 20:15 108 23 94/67 (76) 100 07/25/20 20:00 109 07/25/20 20:00 Mechanical Ventilator 07/25/20 20:00 97.9 118 25 79/58 (65) 97 07/25/20 20:00 100 07/25/20 19:02 126 15 100 07/25/20 17:50 16 115/64 Mechanical Ventilator 100 07/25/20 17:30 16 115/64 Mechanical Ventilator 100 07/25/20 16:36 137 18 100 07/25/20 16:00 Bi-pap 07/25/20 16:00 100 07/25/20 16:00 130 07/25/20 16:00 97.7 131 22 156/103 (120) 88 07/25/20 12:00 97.9 120 24 154/101 (118) 91 07/25/20 12:00 Bi-pap 07/25/20 12:00 121 07/25/20 12:00 100 07/25/20 11:17 121 37 91 100 Intake and Output 07/25/20 07/26/20 19:00 07:00 Intake Total 902.542 ml 1197.50 ml Output Total 1000 ml 2050 ml Balance -97.458 ml -852.50 ml IV Total 902.542 ml 1197.50 ml Output Urine Total 1000 ml 2050 ml # Bowel Movements 1 General Appearance: no acute distress HEENT: normocephalic Respiratory: decreased breath sounds Cardiovascular: normal peripheral pulses Abdomen: normal bowel sounds Laboratory Tests 07/25/20 13:57: POC Whole Blood Glucose 226H 07/25/20 18:25: D-Dimer 4.21H, Magnesium Level 3.0H, Troponin I 0.014, Pro-B-Type Natriuretic Peptide 567H 07/25/20 19:12: Arterial Blood pH 7.333L, Arterial Blood Partial Pressure CO2 47.0H, Arterial Blood Partial Pressure O2 74.0L, Arterial Blood HCO3 24.4, Arterial Blood Oxygen Saturation 91.9L, Arterial Blood Base Excess -1.8, Timbo Test Positive 07/26/20 03:55: White Blood Count 20.3H, Red Blood Count 4.72, Hemoglobin 13.2, Hematocrit 42.4, Mean Corpuscular Volume 90, Mean Corpuscular Hemoglobin 28.0, Mean Corpuscular Hemoglobin Concent 31.1L, Red Cell Distribution Width 13.0, Platelet Count 219, Mean Platelet Volume 9.4, Neutrophils (%) (Auto) , Lymphocytes (%) (Auto) , Monocytes (%) (Auto) , Eosinophils (%) (Auto) , Basophils (%) (Auto) , Differential Total Cells Counted 100, Neutrophils % (Manual) 93H, Lymphocytes % (Manual) 3L, Monocytes % (Manual) 4, Eosinophils % (Manual) 0, Basophils % (Manual) 0, Band Neutrophils 0, Platelet Estimate Adequate, Platelet Morphology Normal, Red Blood Cell Morphology Normal, Sodium Level 140, Potassium Level 3.9, Chloride Level 98, Carbon Dioxide Level 27, Anion Gap 15, Blood Urea Nitrogen 35H, Creatinine 0.9, Estimat Glomerular Filtration Rate > 60, Glucose Level 402#H, Calcium Level 8.9, Total Bilirubin 0.6, Aspartate Amino Transf (AST/SGOT) 31, Alanine Aminotransferase (ALT/SGPT) 38, Alkaline Phosphatase 80, Total Protein 7.4, Albumin 2.6L, Globulin 4.8, Albumin/Globulin Ratio 0.5L 07/26/20 07:37: Arterial Blood pH 7.415, Arterial Blood Partial Pressure CO2 46.3H, Arterial Blood Partial Pressure O2 81.0, Arterial Blood HCO3 29.0H, Arterial Blood Oxygen Saturation 94.3L, Arterial Blood Base Excess 3.7H, Timbo Test Positive Current Medications Medications (Trade) Dose Ordered Sig/Marian Route PRN Reason Start Time Stop Time Status Last Admin Dose Admin Acetaminophen (Tylenol) 650 mg Q4H PRN RECTAL Temp >100.5 07/18/20 18:30 08/17/20 18:29 07/18/20 18:40 Acetaminophen (Tylenol) 650 mg Q6H PRN ORAL For Pain 07/07/20 15:45 08/06/20 15:44 07/16/20 09:45 Acetaminophen (Tylenol) 650 mg Q6H PRN ORAL FEVER 07/07/20 16:15 08/06/20 16:14 07/18/20 05:48 Benzonatate (Tessalon Perles) 100 mg TIDPRN PRN ORAL For Cough 07/18/20 18:30 08/17/20 18:29 Cefepime HCl 2 gm/ Dextrose 55 ml @ 110 mls/hr Q12HR IVPB 07/22/20 13:00 07/29/20 12:59 07/26/20 09:11 Chlorhexidine Gluconate (Rafaela-Hex 2%) 1 applic DAILY@2000 TOPIC 07/25/20 20:00 10/23/20 19:59 07/25/20 20:00 Dextrose (Dextrose 50%) 25 ml Q30M PRN IV Hypoglycemia 07/07/20 15:45 10/05/20 15:44 Dextrose (Dextrose 50%) 50 ml Q30M PRN IV Hypoglycemia 07/07/20 15:45 10/05/20 15:44 Docusate Sodium (Colace) 100 mg TWICE A DAY NG 07/26/20 18:00 08/25/20 17:59 Enoxaparin Sodium (Lovenox) 70 mg EVERY 12 HOURS SUBQ 07/25/20 21:00 10/23/20 20:59 07/26/20 09:11 Famotidine (Pepcid I.v.) 20 mg Q12HR IVP 07/20/20 09:00 08/19/20 08:59 07/26/20 09:11 Fentanyl Citrate 250 ml @ 0 mls/hr Q24H PRN IV . 07/25/20 17:27 07/27/20 17:26 07/25/20 17:50 Fluconazole/ Sodium Chloride 200 ml @ 100 mls/hr Q24H IV 07/22/20 14:00 07/29/20 13:59 07/25/20 15:29 Furosemide 100 mg/ Dextrose 100 ml @ 7.5 mls/hr [id number] IV 07/25/20 12:00 08/24/20 11:59 07/26/20 01:16 Insulin Aspart (NovoLOG) Q6HR SUBQ 07/26/20 12:00 10/24/20 11:59 Methylprednisolone Sodium Succinate (Solu-MEDROL) 20 mg EVERY 6 HOURS IVP 07/22/20 12:00 10/19/20 08:59 07/26/20 06:37 Metoprolol Tartrate (Lopressor) 50 mg EVERY 8 HOURS ORAL 07/25/20 18:01 10/23/20 18:00 Midazolam HCl 200 ml @ 0 mls/hr Q24H PRN IV . 07/25/20 17:25 07/27/20 17:24 07/25/20 17:30 Norepinephrine Bitartrate 4 mg/ Dextrose 250 ml @ 0 mls/hr Q24H IV 07/25/20 20:30 07/28/20 20:29 Assessment/Plan Assessment/Plan 1. COVID-19 pneumonia. - COVID-19 PCR positive (07/07) -> continue isolation - s/p remdexsivir - s/p azithromycin - CXR (07/13) no significant change 2. Hypoxemic respiratory distress - s/p decadron (07/08-07/17) - now on Solu-Medrol - intubated; on AC mode 3. Hypertension. 4. Diabetes mellitus. -on insulin sliding scale 5. DVT ppx - on Lovenox, full dose empirically 6. Sputum Cx shows pseudomonas and cony - on Abx 7. Suspect bacterial infection given leukocytosis - ordered fungal culture, BCx (07/20) - on empiric Diflucan; WBC better - On Cefepime 8. Pulmonary edema - restarted furosemide gtt 7.5 ml/hr; Dw primary MD Discussed with bedside RN. Discussed with family Vu Edward MD Jul 26, 2020 11:02
--- NOTE | 2020-07-26 11:12 | NUR ---
NURSE NOTES: Dr Edward spoke with family member (Sandra Snider) - update given over phone.
--- NOTE | 2020-07-26 12:00 | NUR ---
NURSE NOTES: Pt repositioned. PO care provided. Afebrile. Will continue to monitor. No distress noted.
--- NOTE | 2020-07-26 12:06 | Nephrology Progress Note ---
Assessment/Plan Problem List: (1) Hyponatremia (2) Hypoxia (3) Pneumonitis (4) Acute respiratory failure due to COVID-19 (5) DMII (diabetes mellitus, type 2) (6) HTN (hypertension) Assessment Hyponatremia, improved with saline infusion COVID-19 infection Pneumonia, acute respiratory failure, hypoxia Diabetes mellitus Hypertension Plan July 26: Labs reviewed. Renal parameters stable. Patient now intubated on ventilator in ICU. Blood sugar elevated. Levemir added. Will watch electrolytes. Main management per speech professor and ID. July 25: Labs reviewed. Renal parameters stable. Continue per consultants. July 24: Labs reviewed. Renal parameters stable. Continue per pulmonary. Medication list reviewed. July 23: No labs drawn today. Medication list reviewed. Continue per instructional systems design consultant. Patient full code. July 22: Labs reviewed. Stable renal parameters. Continue per consultants. July 21: No CHEM panel drawn today. Stable from renal standpoint of view. Blood pressure stable. July 20: IV changed to D5W 50 cc an hour. Renal parameters stable. Continue per consultants. July 19: Pulmonary status remains unstable. Stable from renal standpoint of view. July 18: Labs reviewed. Stable renal parameters and electrolytes. Continue per consultants. July 17: No labs drawn today. Remains stable from renal standpoint today. July 16: No labs drawn today. Continue per consultants. Stable from renal standpoint of view. July 15: Labs reviewed. Renal parameters stable. July 14: No labs from today. Continue per current management. Check labs tomorrow. July 13: No labs drawn today. Stable from renal standpoint of view. July 12: Today's labs pending. Medication list reviewed. Continue per current management and consultants. July 11: Labs reviewed. Renal parameters stable. July 10: Labs reviewed. Renal parameters electrolytes stable. Continue per consultants. July 09: Labs reviewed. Renal parameters and electrolytes stable. Continue per ID and pulmonary. Subjective ROS Limited/Unobtainable: Yes Objective Objective Last 24 Hour Vital Signs Date Time Temp Pulse Resp B/P (MAP) Pulse Ox O2 Delivery O2 Flow Rate FiO2 07/26/20 11:05 104 24 80 07/26/20 11:00 115 25 113/72 (86) 93 07/26/20 10:00 109 22 118/67 (84) 99 07/26/20 09:00 105 20 116/85 (95) 96 07/26/20 08:00 104 07/26/20 08:00 98.0 107 24 133/95 (108) 92 07/26/20 08:00 80 07/26/20 07:15 102 21 80 07/26/20 07:00 102 22 113/79 (90) 100 07/26/20 06:00 107 110/86 07/26/20 06:00 20 117/81 Mechanical Ventilator 40 07/26/20 06:00 22 117/81 Mechanical Ventilator 40 07/26/20 05:09 107 20 100 07/26/20 05:00 24 122/86 Mechanical Ventilator 40 07/26/20 05:00 24 122/86 Mechanical Ventilator 40 07/26/20 04:45 105 21 126/88 (101) 99 07/26/20 04:30 102 23 123/85 (98) 100 07/26/20 04:15 102 23 124/78 (93) 99 07/26/20 04:00 Mechanical Ventilator 07/26/20 04:00 100 07/26/20 04:00 24 135/97 Mechanical Ventilator 40 07/26/20 04:00 24 135/97 Mechanical Ventilator 40 07/26/20 04:00 101 07/26/20 04:00 96.6 101 24 135/97 (110) 100 07/26/20 03:45 100 22 123/83 (96) 100 07/26/20 03:30 98 23 122/91 (101) 100 07/26/20 03:24 104 33 100 07/26/20 03:15 110 28 118/75 (89) 100 07/26/20 03:00 16 118/75 Mechanical Ventilator 100 07/26/20 03:00 16 118/75 Mechanical Ventilator 100 07/26/20 03:00 104 24 127/85 (99) 100 07/26/20 02:45 105 24 126/86 (99) 100 07/26/20 02:30 105 24 124/82 (96) 100 07/26/20 02:15 104 23 128/91 (103) 100 07/26/20 02:00 22 137/91 Mechanical Ventilator 100 07/26/20 02:00 22 137/91 Mechanical Ventilator 100 07/26/20 02:00 109 22 137/91 (106) 100 07/26/20 01:45 119 27 140/99 (113) 99 07/26/20 01:45 22 140/90 Mechanical Ventilator 100 07/26/20 01:45 22 140/90 Mechanical Ventilator 100 07/26/20 01:30 22 140/99 Mechanical Ventilator 100 07/26/20 01:30 22 140/99 Mechanical Ventilator 100 07/26/20 01:30 120 15 148/100 (116) 97 07/26/20 01:16 129 33 100 07/26/20 00:30 102 22 121/87 (98) 99 07/26/20 00:15 102 23 125/84 (98) 100 07/26/20 00:00 102 07/26/20 00:00 Mechanical Ventilator 07/26/20 00:00 97.9 101 23 119/83 (95) 100 07/25/20 23:45 102 23 124/85 (98) 99 07/25/20 23:30 102 23 118/84 (95) 100 07/25/20 23:22 123 30 100 07/25/20 23:15 102 22 125/83 (97) 99 07/25/20 23:00 102 23 123/88 (100) 100 07/25/20 22:45 103 23 122/87 (99) 100 07/25/20 22:30 105 25 125/92 (103) 99 07/25/20 22:15 104 22 124/88 (100) 99 07/25/20 22:00 106 22 123/82 (96) 99 07/25/20 21:42 109 20 100 07/25/20 21:15 109 22 115/81 (92) 100 07/25/20 21:00 106 21 111/83 (92) 100 07/25/20 20:45 106 22 111/73 (86) 100 07/25/20 20:30 126/88 07/25/20 20:30 103 20 109/73 (85) 100 07/25/20 20:15 108 23 94/67 (76) 100 07/25/20 20:00 109 07/25/20 20:00 Mechanical Ventilator 07/25/20 20:00 97.9 118 25 79/58 (65) 97 07/25/20 20:00 100 07/25/20 19:02 126 15 100 07/25/20 17:50 16 115/64 Mechanical Ventilator 100 07/25/20 17:30 16 115/64 Mechanical Ventilator 100 07/25/20 16:36 137 18 100 07/25/20 16:00 Bi-pap 07/25/20 16:00 100 07/25/20 16:00 130 07/25/20 16:00 97.7 131 22 156/103 (120) 88 Intake and Output 07/25/20 07/26/20 19:00 07:00 Intake Total 902.542 ml 1197.50 ml Output Total 1000 ml 2050 ml Balance -97.458 ml -852.50 ml IV Total 902.542 ml 1197.50 ml Output Urine Total 1000 ml 2050 ml # Bowel Movements 1 Current Medications Medications (Trade) Dose Ordered Sig/Marian Route PRN Reason Start Time Stop Time Status Last Admin Dose Admin Acetaminophen (Tylenol) 650 mg Q4H PRN RECTAL Temp >100.5 07/18/20 18:30 08/17/20 18:29 07/18/20 18:40 Acetaminophen (Tylenol) 650 mg Q6H PRN ORAL For Pain 07/07/20 15:45 08/06/20 15:44 07/16/20 09:45 Acetaminophen (Tylenol) 650 mg Q6H PRN ORAL FEVER 07/07/20 16:15 08/06/20 16:14 07/18/20 05:48 Benzonatate (Tessalon Perles) 100 mg TIDPRN PRN ORAL For Cough 07/18/20 18:30 08/17/20 18:29 Cefepime HCl 2 gm/ Dextrose 55 ml @ 110 mls/hr Q12HR IVPB 07/22/20 13:00 07/29/20 12:59 07/26/20 09:11 Chlorhexidine Gluconate (Rafaela-Hex 2%) 1 applic DAILY@2000 TOPIC 07/25/20 20:00 10/23/20 19:59 07/25/20 20:00 Dextrose (Dextrose 50%) 25 ml Q30M PRN IV Hypoglycemia 07/07/20 15:45 10/05/20 15:44 Dextrose (Dextrose 50%) 50 ml Q30M PRN IV Hypoglycemia 07/07/20 15:45 10/05/20 15:44 Docusate Sodium (Colace) 100 mg TWICE A DAY NG 07/26/20 18:00 08/25/20 17:59 Enoxaparin Sodium (Lovenox) 70 mg EVERY 12 HOURS SUBQ 07/25/20 21:00 10/23/20 20:59 07/26/20 09:11 Famotidine (Pepcid I.v.) 20 mg Q12HR IVP 07/20/20 09:00 08/19/20 08:59 07/26/20 09:11 Fentanyl Citrate 250 ml @ 0 mls/hr Q24H PRN IV . 07/25/20 17:27 07/27/20 17:26 07/25/20 17:50 Fluconazole/ Sodium Chloride 200 ml @ 100 mls/hr Q24H IV 07/22/20 14:00 07/29/20 13:59 07/25/20 15:29 Furosemide 100 mg/ Dextrose 100 ml @ 7.5 mls/hr [id number] IV 07/25/20 12:00 08/24/20 11:59 07/26/20 01:16 Insulin Aspart (NovoLOG) Q6HR SUBQ 07/26/20 12:00 10/24/20 11:59 Methylprednisolone Sodium Succinate (Solu-MEDROL) 20 mg EVERY 6 HOURS IVP 07/22/20 12:00 10/19/20 08:59 07/26/20 06:37 Metoprolol Tartrate (Lopressor) 50 mg EVERY 8 HOURS ORAL 07/25/20 18:01 10/23/20 18:00 Midazolam HCl 200 ml @ 0 mls/hr Q24H PRN IV . 07/25/20 17:25 07/27/20 17:24 07/25/20 17:30 Norepinephrine Bitartrate 4 mg/ Dextrose 250 ml @ 0 mls/hr Q24H IV 07/25/20 20:30 07/28/20 20:29 Laboratory Tests 07/25/20 13:57: POC Whole Blood Glucose 226H 07/25/20 18:25: D-Dimer 4.21H, Magnesium Level 3.0H, Troponin I 0.014, Pro-B-Type Natriuretic Peptide 567H 07/25/20 19:12: Arterial Blood pH 7.333L, Arterial Blood Partial Pressure CO2 47.0H, Arterial Blood Partial Pressure O2 74.0L, Arterial Blood HCO3 24.4, Arterial Blood Oxygen Saturation 91.9L, Arterial Blood Base Excess -1.8, Timbo Test Positive 07/26/20 03:55: White Blood Count 20.3H, Red Blood Count 4.72, Hemoglobin 13.2, Hematocrit 42.4, Mean Corpuscular Volume 90, Mean Corpuscular Hemoglobin 28.0, Mean Corpuscular Hemoglobin Concent 31.1L, Red Cell Distribution Width 13.0, Platelet Count 219, Mean Platelet Volume 9.4, Neutrophils (%) (Auto) , Lymphocytes (%) (Auto) , Monocytes (%) (Auto) , Eosinophils (%) (Auto) , Basophils (%) (Auto) , Differential Total Cells Counted 100, Neutrophils % (Manual) 93H, Lymphocytes % (Manual) 3L, Monocytes % (Manual) 4, Eosinophils % (Manual) 0, Basophils % (Manual) 0, Band Neutrophils 0, Platelet Estimate Adequate, Platelet Morphology Normal, Red Blood Cell Morphology Normal, Sodium Level 140, Potassium Level 3.9, Chloride Level 98, Carbon Dioxide Level 27, Anion Gap 15, Blood Urea Nitrogen 35H, Creatinine 0.9, Estimat Glomerular Filtration Rate > 60, Glucose Level 402#H, Calcium Level 8.9, Total Bilirubin 0.6, Aspartate Amino Transf (AST/SGOT) 31, Alanine Aminotransferase (ALT/SGPT) 38, Alkaline Phosphatase 80, Total Protein 7.4, Albumin 2.6L, Globulin 4.8, Albumin/Globulin Ratio 0.5L 07/26/20 07:37: Arterial Blood pH 7.415, Arterial Blood Partial Pressure CO2 46.3H, Arterial Blood Partial Pressure O2 81.0, Arterial Blood HCO3 29.0H, Arterial Blood Oxygen Saturation 94.3L, Arterial Blood Base Excess 3.7H, Timbo Test Positive Height (Feet): 5 Height (Inches): 3.00 Weight (Pounds): 162 General Appearance: no apparent distress EENT: other - Intubated on ventilator Cardiovascular: tachycardia Respiratory/Chest: decreased breath sounds Abdomen: distended Objective No change Anurag Bridges MD Jul 26, 2020 12:06
[2020-07-26] MEDS: Levemir Flexpen SUBQ SCH ×2 (12:55→20:30)
[2020-07-26] MEDS: NovoLOG Insulin Flexpen SUBQ SCH ×2 (12:55→17:53)
[2020-07-26] MEDS: FLUCONAZOLE 400 MG/200 ML IV SCH (13:00)
--- NOTE | 2020-07-26 14:00 | NUR ---
NURSE NOTES: Pt repositioned. No distress noted.
--- NOTE | 2020-07-26 17:00 | NUR ---
NURSE NOTES: Pt seen by TIO Lobato. Vital sign trend reviewed. Medications adjusted.
[2020-07-26] MEDS: Docusate 100mg/10ml Liq NG SCH (17:37)
--- NOTE | 2020-07-26 18:00 | NUR ---
NURSE NOTES: Pt repositioned and cleaned. No distress noted.
[2020-07-26] MEDS ORDERED: 1/2 NS 1000ml IV ONE (18:12)
[2020-07-26] MEDS ORDERED: Tubing IV Secondary IV ONE (18:12)
[2020-07-26] MEDS: Dyna-Hex 2% Top Sol 2oz TOPIC SCH (19:25)
--- NOTE | 2020-07-26 19:30 | NUR ---
NURSE NOTES: Received report from LIANA Cintron. patient sedated. Orally intubated fi02 80% satting 100%. no moaning no facial grimaces. No s/s of acute distress noted. no fever. OGT intact no residual Running Glucerna 1.2 at 55cc/hr. IV line intact on right hand infusing Lasix at 7.5cc/hr, rass score -2 infusing Fentanyl at 10mcg/hr, Versed @2mg/hr. no s/s of hypo/hyperglycemia. Airborne precaution maintained and observed. Bilateral soft wrist restraint checked. will continue plan of care.
--- NOTE | 2020-07-26 19:36 | NUR ---
NURSE HAND-OFF REPORT: Latest Vital Signs: Temperature 98.6 , Pulse 106 , B/P 99 /69 , Respiratory Rate 24 , O2 SAT 97 , Mechanical Ventilator, FiO2 80 % . EKG Rhythm: Sinus Tachycardia Rhythm change?: N Notified?: Pt seen by TIO Lobato MD Response: meds reviewed Latest Plaza Fall Score: 35 Fall Risk: Medium Risk Safety Measures: Call light Within Reach, Bed Alarm Zone 3, Side Rails Side Rails x2, Bed position Low and Locked. Fall Precautions: Yellow Socks Yellow Gown Door Sign Patient Fall Education Report given to LIANA Bone.
[2020-07-26] MEDS ORDERED: Dyna-Hex 2% Top Sol 2oz TOPIC SCH (20:00)
--- NOTE | 2020-07-26 21:30 | NUR ---
NURSE NOTES: patient in bed sedated. oral care provided. medication given. no fever. no n/v. repositioned in bed. will continue plan of care.
--- NOTE | 2020-07-26 22:34 | Cardiology Progress Note ---
Assessment/Plan Status: not improved Assessment/Plan 1. COVID-19 viral PNA s/p remdesivir and dexamethasone WBCs elevated 2. Respiratory failure 2/2 acute PNA Intubated 07/25/20 3. HFpEF acute on chronic diastolic HF with preserved EF EF 65%, repeat echo post intubation Lasix for diuresis 4. DMII 5. GERD Pt in sinus rhythm, Bb for rate and rhythm control, not on pressors. Lasix as needed per pulmonlogy recs. Further recs to follow. Subjective ROS Limited/Unobtainable: Yes Subjective Intubated and on vent, in sinus rhythm, not on pressors. Seen in ICU Objective Last 24 Hour Vital Signs Date Time Temp Pulse Resp B/P (MAP) Pulse Ox O2 Delivery O2 Flow Rate FiO2 07/26/20 22:16 104 104/71 07/26/20 21:00 104 25 104/71 (82) 100 07/26/20 20:30 104 24 115/77 (90) 98 07/26/20 20:15 108 27 91/64 (73) 98 07/26/20 20:00 79 07/26/20 20:00 Mechanical Ventilator 07/26/20 20:00 80 07/26/20 20:00 98.0 104 25 111/76 (88) 99 07/26/20 19:30 104 25 80 07/26/20 19:00 106 24 99/69 (79) 97 07/26/20 18:00 20 106/71 Mechanical Ventilator 80 07/26/20 18:00 20 106/71 Mechanical Ventilator 80 07/26/20 18:00 112 20 106/71 (83) 94 07/26/20 17:00 97 20 97/65 (76) 100 07/26/20 17:00 20 97/65 Mechanical Ventilator 80 07/26/20 17:00 20 97/65 Mechanical Ventilator 80 07/26/20 16:00 98 07/26/20 16:00 80 07/26/20 16:00 98.6 100 22 100/68 (79) 99 07/26/20 16:00 22 100/68 Mechanical Ventilator 80 07/26/20 16:00 22 100/68 Mechanical Ventilator 80 07/26/20 16:00 Mechanical Ventilator 07/26/20 15:00 104 21 103/73 (83) 98 2/24/21 15:00 21 103/73 Mechanical Ventilator 80 07/26/20 15:00 21 103/73 Mechanical Ventilator 80 07/26/20 14:35 106 22 80 07/26/20 14:00 104 20 109/69 (82) 100 07/26/20 14:00 21 104/67 Mechanical Ventilator 80 07/26/20 14:00 21 104/67 Mechanical Ventilator 80 07/26/20 13:01 105 102/75 07/26/20 13:00 21 104/74 Mechanical Ventilator 80 07/26/20 13:00 21 104/74 Mechanical Ventilator 80 07/26/20 13:00 109 23 102/75 (84) 100 07/26/20 12:00 98.2 112 24 119/78 (92) 98 07/26/20 12:00 80 07/26/20 12:00 108 07/26/20 12:00 Mechanical Ventilator 07/26/20 12:00 22 100/80 Mechanical Ventilator 80 07/26/20 12:00 22 100/80 Mechanical Ventilator 80 07/26/20 11:05 104 24 80 07/26/20 11:00 115 25 113/72 (86) 93 07/26/20 11:00 24 107/76 Mechanical Ventilator 80 07/26/20 11:00 24 107/76 Mechanical Ventilator 80 07/26/20 10:00 109 22 118/67 (84) 99 07/26/20 10:00 24 111/65 Mechanical Ventilator 80 07/26/20 10:00 24 111/65 Mechanical Ventilator 80 07/26/20 09:00 105 20 116/85 (95) 96 07/26/20 09:00 22 111/87 Mechanical Ventilator 80 07/26/20 09:00 22 111/87 Mechanical Ventilator 80 07/26/20 08:00 104 07/26/20 08:00 98.0 107 24 133/95 (108) 92 07/26/20 08:00 21 126/82 Mechanical Ventilator 80 07/26/20 08:00 21 126/82 Mechanical Ventilator 80 07/26/20 08:00 80 07/26/20 08:00 Mechanical Ventilator 07/26/20 07:15 102 21 80 07/26/20 07:00 22 110/77 Mechanical Ventilator 100 07/26/20 07:00 22 110/77 Mechanical Ventilator 100 07/26/20 07:00 102 22 113/79 (90) 100 2/24/21 06:00 107 110/86 07/26/20 06:00 20 117/81 Mechanical Ventilator 40 07/26/20 06:00 22 117/81 Mechanical Ventilator 40 07/26/20 05:09 107 20 100 07/26/20 05:00 24 122/86 Mechanical Ventilator 40 07/26/20 05:00 24 122/86 Mechanical Ventilator 40 07/26/20 04:45 105 21 126/88 (101) 99 07/26/20 04:30 102 23 123/85 (98) 100 07/26/20 04:15 102 23 124/78 (93) 99 07/26/20 04:00 Mechanical Ventilator 07/26/20 04:00 100 07/26/20 04:00 24 135/97 Mechanical Ventilator 40 07/26/20 04:00 24 135/97 Mechanical Ventilator 40 07/26/20 04:00 101 07/26/20 04:00 96.6 101 24 135/97 (110) 100 07/26/20 03:45 100 22 123/83 (96) 100 07/26/20 03:30 98 23 122/91 (101) 100 07/26/20 03:24 104 33 100 07/26/20 03:15 110 28 118/75 (89) 100 07/26/20 03:00 16 118/75 Mechanical Ventilator 100 07/26/20 03:00 16 118/75 Mechanical Ventilator 100 07/26/20 03:00 104 24 127/85 (99) 100 07/26/20 02:45 105 24 126/86 (99) 100 07/26/20 02:30 105 24 124/82 (96) 100 07/26/20 02:15 104 23 128/91 (103) 100 07/26/20 02:00 22 137/91 Mechanical Ventilator 100 07/26/20 02:00 22 137/91 Mechanical Ventilator 100 07/26/20 02:00 109 22 137/91 (106) 100 07/26/20 01:45 119 27 140/99 (113) 99 07/26/20 01:45 22 140/90 Mechanical Ventilator 100 07/26/20 01:45 22 140/90 Mechanical Ventilator 100 07/26/20 01:30 22 140/99 Mechanical Ventilator 100 07/26/20 01:30 22 140/99 Mechanical Ventilator 100 07/26/20 01:30 120 15 148/100 (116) 97 07/26/20 01:16 129 33 100 07/26/20 00:30 102 22 121/87 (98) 99 07/26/20 00:15 102 23 125/84 (98) 100 07/26/20 00:00 102 07/26/20 00:00 Mechanical Ventilator 07/26/20 00:00 97.9 101 23 119/83 (95) 100 07/25/20 23:45 102 23 124/85 (98) 99 07/25/20 23:30 102 23 118/84 (95) 100 07/25/20 23:22 123 30 100 07/25/20 23:15 102 22 125/83 (97) 99 07/25/20 23:00 102 23 123/88 (100) 100 07/25/20 22:45 103 23 122/87 (99) 100 07/25/20 22:30 105 25 125/92 (103) 99 General Appearance: on vent, isolation precautions Rhythm: NSR Cardiovascular: normal rate, regular rhythm Respiratory/Chest: decreased breath sounds Extremities: trace edema Neurologic: unresponsiveness Intake and Output 07/25/20 07/26/20 19:00 07:00 Intake Total 902.542 ml 1248.3333 ml Output Total 1000 ml 2050 ml Balance -97.458 ml -801.6667 ml IV Total 902.542 ml 1248.3333 ml Output Urine Total 1000 ml 2050 ml # Bowel Movements 1 Laboratory Tests Test 07/26/20 03:55 07/26/20 07:37 White Blood Count 20.3 K/UL (4.8-10.8) H Red Blood Count 4.72 M/UL (4.20-5.40) Hemoglobin 13.2 G/DL (12.0-16.0) Hematocrit 42.4 % (37.0-47.0) Mean Corpuscular Volume 90 FL (80-99) Mean Corpuscular Hemoglobin 28.0 PG (27.0-31.0) Mean Corpuscular Hemoglobin Concent 31.1 G/DL (32.0-36.0) L Red Cell Distribution Width 13.0 % (11.6-14.8) Platelet Count 219 K/UL (150-450) Mean Platelet Volume 9.4 FL (6.5-10.1) Neutrophils (%) (Auto) % (45.0-75.0) Lymphocytes (%) (Auto) % (20.0-45.0) Monocytes (%) (Auto) % (1.0-10.0) Eosinophils (%) (Auto) % (0.0-3.0) Basophils (%) (Auto) % (0.0-2.0) Differential Total Cells Counted 100 Neutrophils % (Manual) 93 % (45-75) H Lymphocytes % (Manual) 3 % (20-45) L Monocytes % (Manual) 4 % (1-10) Eosinophils % (Manual) 0 % (0-3) Basophils % (Manual) 0 % (0-2) Band Neutrophils 0 % (0-8) Platelet Estimate Adequate Platelet Morphology Normal Red Blood Cell Morphology Normal Sodium Level 140 MMOL/L (136-145) Potassium Level 3.9 MMOL/L (3.5-5.1) Chloride Level 98 MMOL/L (98-107) Carbon Dioxide Level 27 MMOL/L (21-32) Anion Gap 15 mmol/L (5-15) Blood Urea Nitrogen 35 mg/dL (7-18) H Creatinine 0.9 MG/DL (0.55-1.30) Estimat Glomerular Filtration Rate > 60 mL/min (>60) Glucose Level 402 MG/DL (74-106) #H Calcium Level 8.9 MG/DL (8.5-10.1) Total Bilirubin 0.6 MG/DL (0.2-1.0) Aspartate Amino Transf (AST/SGOT) 31 U/L (15-37) Alanine Aminotransferase (ALT/SGPT) 38 U/L (12-78) Alkaline Phosphatase 80 U/L (46-116) Total Protein 7.4 G/DL (6.4-8.2) Albumin 2.6 G/DL (3.4-5.0) L Globulin 4.8 g/dL Albumin/Globulin Ratio 0.5 (1.0-2.7) L Arterial Blood pH 7.415 (7.350-7.450) Arterial Blood Partial Pressure CO2 46.3 mmHg (35.0-45.0) H Arterial Blood Partial Pressure O2 81.0 mmHg (75.0-100.0) Arterial Blood HCO3 29.0 mmol/L (22.0-26.0) H Arterial Blood Oxygen Saturation 94.3 % (95-100) L Arterial Blood Base Excess 3.7 (-2-2) H Timbo Test Positive Microbiology Date/Time Source Procedure Growth Status 07/25/20 17:46 Sputum Induced Gram Stain - Final Resulted 07/25/20 17:46 Sputum Induced Sputum Culture - Preliminary NO GROWTH Resulted Blanca Lobato PA-C Jul 26, 2020 22:34
[2020-07-27] VITALS (53 sets, daily range): BP systolic 93–154; BP diastolic 64–127
[2020-07-27] MEDS: Solu-MEDROL 40mg Inj IVP SCH ×5 (00:22→23:38)
[2020-07-27] MEDS: NovoLOG Insulin Flexpen SUBQ SCH ×4 (00:30→17:55)
--- NOTE | 2020-07-27 01:30 | NUR ---
ALEXANDREA NOTES: patient in bed sedated. no moaning no facial grimaces. No s/s of acute distress noted. no fever. OGT intact no residual Running Glucerna 1.2 at 55cc/hr. IV line intact on right hand infusing Lasix at 7.5cc/hr, rass score -2 infusing Fentanyl at 10mcg/hr, Versed @2mg/hr. no s/s of hypo/hyperglycemia. Airborne precaution maintained and observed. Bilateral soft wrist restraint checked. will continue plan of care.
--- NOTE | 2020-07-27 03:30 | NUR ---
NURSE NOTES: Bed bath given tolerated well.
[2020-07-27 06:21] LABS: HEMATOCRIT 41.7 % (37.0-47.0); HEMOGLOBIN 13.3 G/DL (12.0-16.0); MEAN CORPUSCULAR VOLUME 89 FL (80-99); PLATELET COUNT 247 K/UL (150-450); RED BLOOD COUNT 4.66 M/UL (4.20-5.40)
[2020-07-27 06:38] LABS: WHITE BLOOD COUNT 24.2 K/UL (4.8-10.8)
--- NOTE | 2020-07-27 06:40 | NUR ---
NURSE NOTES: Called Dr. Malcolm regarding patient Blood glucose 475mg/dl NovoLog Insulin 10 units per sliding scale given. Charge nurse aware. patient asymptomatic.
[2020-07-27 07:06] LABS: ALBUMIN 2.6 G/DL (3.4-5.0); ALBUMIN/GLOBULIN RATIO 0.6 (1.0-2.7); BILIRUBIN,TOTAL 0.4 MG/DL (0.2-1.0); CALCIUM 9.2 MG/DL (8.5-10.1); PHOSPHORUS 4.2 MG/DL (2.5-4.9); POTASSIUM 3.3 MMOL/L (3.5-5.1)
--- NOTE | 2020-07-27 07:30 | NUR ---
NURSE HAND-OFF REPORT: Latest Vital Signs: Temperature 97.7 , Pulse 98 , B/P 113 /75 , Respiratory Rate 19 , O2 SAT 99 , Mechanical Ventilator, O2 Flow Rate . Vital Sign Comment: EKG Rhythm: Sinus Rhythm Rhythm change?: N MD Notified?: N - MD Response: Latest Plaza Fall Score: 35 Fall Risk: Medium Risk Safety Measures: Call light Within Reach, Bed Alarm Zone 3, Side Rails Side Rails x2, Bed position Low and Locked. Fall Precautions: Yellow Socks Yellow Gown Door Sign Patient Fall Education Report given to Iesha GAINES.
--- NOTE | 2020-07-27 07:31 | NUR ---
NURSE NOTES: Received report from ROBBIN Butt RN. Patient lightly sedated. Orally intubated fi02 70% satting 98%. No moaning, No facial grimaces. No s/s of acute distress noted. no fever. OGT intact no residual Running Glucerna 1.2 at 55cc/hr. IV line intact on right hand infusing Lasix at 7.5cc/hr, rass score -2 infusing Fentanyl at 10mcg/hr, Versed @ 2mg/hr. No s/s of hypo/hyperglycemia. Airborne precaution maintained and observed. Bilateral soft wrist restraint checked. Will continue plan of care.
--- NOTE | 2020-07-27 09:03 | NUR ---
KNIFE OPERATOR NOTE SW spoke w/ pt's , Jersey Purvis [phone] that pt does not have AD/POA. He will be the decision maker if pt cannot make one. Other emergency contact: Clive Purvis Junior(brother in law) [phone]
--- NOTE | 2020-07-27 09:10 | NUR ---
NURSE NOTES: Dr. Bridges at bedside. Aware of today's lab results. Potassium replacement order noted for today.
[2020-07-27] MEDS: Docusate 100mg/10ml Liq NG SCH ×2 (09:13→20:38)
[2020-07-27] MEDS: Cefepime HCl 2 GM in D5W 55 ML IVPB SCH ×2 (09:14→20:39)
[2020-07-27] MEDS: Enoxaparin 80mg Inj SUBQ SCH ×2 (09:15→20:38)
--- NOTE | 2020-07-27 10:01 | Pulmonology Progress Note ---
Subjective ROS Limited/Unobtainable: Yes Interval Events: S/p intubation 07/25/20 Constitutional: Reports: no symptoms HEENT: Repors: no symptoms Respiratory: Reports: shortness of breath Gastrointestinal/Abdominal: Reports: no symptoms Psychiatric: Reports: no symptoms Skin: Reports: no symptoms Musculoskeletal: Reports: no symptoms Allergies: Coded Allergies: No Known Allergies (Unverified , 07/07/20) Objective Last 24 Hour Vital Signs Date Time Temp Pulse Resp B/P (MAP) Pulse Ox O2 Delivery O2 Flow Rate FiO2 07/27/20 09:13 107 114/73 07/27/20 08:00 98.1 107 23 114/73 (87) 96 07/27/20 08:00 Mechanical Ventilator 07/27/20 08:00 70 07/27/20 07:55 105 07/27/20 07:00 19 113/75 Mechanical Ventilator 80 07/27/20 07:00 19 113/75 Mechanical Ventilator 80 07/27/20 07:00 99 20 113/75 (88) 99 07/27/20 06:00 98 22 122/79 (93) 99 07/27/20 06:00 19 122/78 Mechanical Ventilator 80 07/27/20 06:00 22 122/78 Mechanical Ventilator 80 07/27/20 05:00 21 114/81 Mechanical Ventilator 80 07/27/20 05:00 19 114/81 Mechanical Ventilator 80 07/27/20 05:00 92 19 118/83 (95) 99 07/27/20 04:59 79 22 80 07/27/20 04:00 80 07/27/20 04:00 Mechanical Ventilator 07/27/20 04:00 19 121/82 Mechanical Ventilator 80 07/27/20 04:00 19 121/82 Mechanical Ventilator 80 07/27/20 04:00 74 07/27/20 04:00 97.7 92 17 120/83 (95) 98 07/27/20 03:30 91 18 80 07/27/20 03:00 19 108/73 Mechanical Ventilator 80 07/27/20 03:00 19 108/73 Mechanical Ventilator 80 07/27/20 03:00 92 20 112/74 (87) 98 07/27/20 02:00 20 113/72 Mechanical Ventilator 80 07/27/20 02:00 20 113/72 Mechanical Ventilator 80 07/27/20 02:00 93 22 114/73 (87) 99 07/27/20 01:14 92 24 80 07/27/20 01:00 94 24 104/72 (83) 99 07/27/20 01:00 24 123/80 Mechanical Ventilator 80 07/27/20 01:00 24 123/80 Mechanical Ventilator 80 07/27/20 00:00 83 07/27/20 00:00 Mechanical Ventilator 07/27/20 00:00 23 117/84 Mechanical Ventilator 80 07/27/20 00:00 23 117/84 Mechanical Ventilator 80 07/27/20 00:00 80 07/27/20 00:00 97.8 99 23 115/72 (86) 99 07/26/20 23:17 101 25 80 07/26/20 23:00 102 25 110/75 (87) 98 07/26/20 23:00 25 110/75 Mechanical Ventilator 80 07/26/20 23:00 25 110/75 Mechanical Ventilator 80 07/26/20 22:16 104 104/71 07/26/20 22:00 24 101/69 Mechanical Ventilator 80 07/26/20 22:00 25 101/69 Mechanical Ventilator 80 07/26/20 22:00 103 24 103/76 (85) 100 07/26/20 21:30 102 24 80 07/26/20 21:00 104 25 104/71 (82) 100 07/26/20 21:00 24 107/70 Mechanical Ventilator 80 07/26/20 21:00 24 107/70 Mechanical Ventilator 80 07/26/20 20:30 112/74 07/26/20 20:30 104 24 115/77 (90) 98 07/26/20 20:15 108 27 91/64 (73) 98 07/26/20 20:00 79 07/26/20 20:00 Mechanical Ventilator 07/26/20 20:00 80 07/26/20 20:00 98.0 104 25 111/76 (88) 99 07/26/20 20:00 25 91/64 Mechanical Ventilator 80 07/26/20 20:00 25 91/64 Mechanical Ventilator 80 07/26/20 19:30 104 25 80 07/26/20 19:00 24 104/73 Mechanical Ventilator 80 07/26/20 19:00 24 104/73 Mechanical Ventilator 80 07/26/20 19:00 106 24 99/69 (79) 97 07/26/20 18:00 20 106/71 Mechanical Ventilator 80 07/26/20 18:00 20 106/71 Mechanical Ventilator 80 07/26/20 18:00 112 20 106/71 (83) 94 07/26/20 17:00 97 20 97/65 (76) 100 07/26/20 17:00 20 97/65 Mechanical Ventilator 80 07/26/20 17:00 20 97/65 Mechanical Ventilator 80 07/26/20 16:00 98 07/26/20 16:00 80 07/26/20 16:00 98.6 100 22 100/68 (79) 99 07/26/20 16:00 22 100/68 Mechanical Ventilator 80 07/26/20 16:00 22 100/68 Mechanical Ventilator 80 07/26/20 16:00 Mechanical Ventilator 07/26/20 15:00 104 21 103/73 (83) 98 07/26/20 15:00 21 103/73 Mechanical Ventilator 80 07/26/20 15:00 21 103/73 Mechanical Ventilator 80 07/26/20 14:35 106 22 80 07/26/20 14:00 104 20 109/69 (82) 100 07/26/20 14:00 21 104/67 Mechanical Ventilator 80 07/26/20 14:00 21 104/67 Mechanical Ventilator 80 07/26/20 13:01 105 102/75 07/26/20 13:00 21 104/74 Mechanical Ventilator 80 07/26/20 13:00 21 104/74 Mechanical Ventilator 80 07/26/20 13:00 109 23 102/75 (84) 100 07/26/20 12:00 98.2 112 24 119/78 (92) 98 07/26/20 12:00 80 07/26/20 12:00 108 07/26/20 12:00 Mechanical Ventilator 07/26/20 12:00 22 100/80 Mechanical Ventilator 80 07/26/20 12:00 22 100/80 Mechanical Ventilator 80 07/26/20 11:05 104 24 80 07/26/20 11:00 115 25 113/72 (86) 93 07/26/20 11:00 24 107/76 Mechanical Ventilator 80 07/26/20 11:00 24 107/76 Mechanical Ventilator 80 07/26/20 10:00 109 22 118/67 (84) 99 07/26/20 10:00 24 111/65 Mechanical Ventilator 80 07/26/20 10:00 24 111/65 Mechanical Ventilator 80 Intake and Output 07/26/20 07/27/20 19:00 07:00 Intake Total 918.75 ml 1139.7 ml Output Total 1270 ml 1085 ml Balance -351.25 ml 54.7 ml Free Water 50 ml 100 ml IV Total 403.75 ml 259.7 ml Tube Feeding 465 ml 660 ml Other 120 ml Output Urine Total 1270 ml 1085 ml General Appearance: no acute distress HEENT: normocephalic Respiratory: decreased breath sounds Cardiovascular: normal peripheral pulses Abdomen: normal bowel sounds Microbiology Date/Time Source Procedure Growth Status 07/25/20 17:46 Sputum Induced Gram Stain - Final Resulted 07/25/20 17:46 Sputum Induced Sputum Culture - Preliminary NO GROWTH AFTER 24 HOURS Resulted Laboratory Tests 07/27/20 05:01: White Blood Count 24.2*H, Red Blood Count 4.66, Hemoglobin 13.3, Hematocrit 41.7, Mean Corpuscular Volume 89, Mean Corpuscular Hemoglobin 28.6, Mean Corpuscular Hemoglobin Concent 32.0, Red Cell Distribution Width 13.0, Platelet Count 247, Mean Platelet Volume 10.4H, Neutrophils (%) (Auto) , Lymphocytes (%) (Auto) , Monocytes (%) (Auto) , Eosinophils (%) (Auto) , Basophils (%) (Auto) , Differential Total Cells Counted 100, Neutrophils % (Manual) 94H, Lymphocytes % (Manual) 3L, Monocytes % (Manual) 3, Eosinophils % (Manual) 0, Basophils % (Manual) 0, Band Neutrophils 0, Platelet Estimate Adequate, Platelet Morphology Normal, Red Blood Cell Morphology Normal, Sodium Level 139, Potassium Level 3.3L , Chloride Level 96L, Carbon Dioxide Level 32, Anion Gap 11, Blood Urea Nitrogen 52H, Creatinine 1.0, Estimat Glomerular Filtration Rate 56.0, Glucose Level 427H , Calcium Level 9.2, Phosphorus Level 4.2, Magnesium Level 2.8H, Total Bilirubin 0.4, Aspartate Amino Transf (AST/SGOT) 31, Alanine Aminotransferase (ALT/SGPT) 48, Alkaline Phosphatase 93, C-Reactive Protein, Quantitative 0.6, Pro-B-Type Natriuretic Peptide 164H, Total Protein 7.1, Albumin 2.6L, Globulin 4.5, Albumin/Globulin Ratio 0.6L Current Medications Medications (Trade) Dose Ordered Sig/Marian Route PRN Reason Start Time Stop Time Status Last Admin Dose Admin Acetaminophen (Tylenol) 650 mg Q4H PRN RECTAL Temp >100.5 07/18/20 18:30 08/17/20 18:29 07/18/20 18:40 Acetaminophen (Tylenol) 650 mg Q6H PRN ORAL For Pain 07/07/20 15:45 08/06/20 15:44 07/16/20 09:45 Acetaminophen (Tylenol) 650 mg Q6H PRN ORAL FEVER 07/07/20 16:15 08/06/20 16:14 07/18/20 05:48 Benzonatate (Tessalon Perles) 100 mg TIDPRN PRN ORAL For Cough 07/18/20 18:30 08/17/20 18:29 Cefepime HCl 2 gm/ Dextrose 55 ml @ 110 mls/hr Q12HR IVPB 07/22/20 13:00 07/29/20 12:59 07/27/20 09:14 Chlorhexidine Gluconate (Rafaela-Hex 2%) 1 applic DAILY@2000 TOPIC 07/25/20 20:00 10/23/20 19:59 07/25/20 20:00 Dextrose (Dextrose 50%) 25 ml Q30M PRN IV Hypoglycemia 07/07/20 15:45 10/05/20 15:44 Dextrose (Dextrose 50%) 50 ml Q30M PRN IV Hypoglycemia 07/07/20 15:45 10/05/20 15:44 Docusate Sodium (Colace) 100 mg TWICE A DAY NG 07/26/20 18:00 08/25/20 17:59 07/27/20 09:13 Enoxaparin Sodium (Lovenox) 70 mg EVERY 12 HOURS SUBQ 07/25/20 21:00 10/23/20 20:59 07/27/20 09:15 Famotidine (Pepcid I.v.) 20 mg Q12HR IVP 07/20/20 09:00 08/19/20 08:59 07/27/20 09:13 Fentanyl Citrate 250 ml @ 0 mls/hr Q24H PRN IV . 07/25/20 17:27 07/27/20 17:26 07/25/20 17:50 Fluconazole/ Sodium Chloride 200 ml @ 100 mls/hr Q24H IV 07/22/20 14:00 07/29/20 13:59 07/26/20 13:00 Furosemide 100 mg/ Dextrose 100 ml @ 7.5 mls/hr Q13Q60S IV 07/25/20 12:00 08/24/20 11:59 07/27/20 03:03 Insulin Aspart (NovoLOG) Q6HR SUBQ 07/26/20 12:00 10/24/20 11:59 07/27/20 06:31 Insulin Detemir (Levemir) 10 units Q12HR SUBQ 07/26/20 12:15 10/24/20 12:14 07/26/20 20:30 Methylprednisolone Sodium Succinate (Solu-MEDROL) 20 mg EVERY 6 HOURS IVP 07/22/20 12:00 10/19/20 08:59 07/27/20 06:13 Metoprolol Tartrate (Lopressor) 25 mg EVERY 12 HOURS NG 07/26/20 21:00 10/24/20 20:59 07/27/20 09:13 Midazolam HCl 200 ml @ 0 mls/hr Q24H PRN IV . 07/25/20 17:25 07/27/20 17:24 07/25/20 17:30 Norepinephrine Bitartrate 4 mg/ Dextrose 250 ml @ 0 mls/hr Q24H IV 07/25/20 20:30 07/29/20 20:29 Potassium Chloride 100 ml @ 100 mls/hr Q1H IVPB 07/27/20 09:00 07/27/20 10:59 07/27/20 09:14 Potassium Chloride (K-Dur) 20 meq TWICE A DAY GT 07/26/20 18:00 10/24/20 17:59 07/27/20 09:14 Assessment/Plan Assessment/Plan 1. COVID-19 pneumonia. - COVID-19 PCR positive (07/07) -> continue isolation - s/p remdexsivir - s/p azithromycin - CXR (07/13) no significant change 2. Hypoxemic respiratory distress - s/p decadron (07/08-07/17) - now on Solu-Medrol - intubated; on AC mode - FiO2 70%; PEEP 5 3. Hypertension. 4. Diabetes mellitus. -on insulin sliding scale 5. DVT ppx - on Lovenox, full dose empirically 6. Sputum Cx shows pseudomonas and cony - on Abx 7. Suspect bacterial infection given leukocytosis - ordered fungal culture, BCx (07/20) - on empiric Diflucan; WBC better - On Cefepime 8. Pulmonary edema -Will dc lasix gtt - CXR improved Discussed with bedside RN. Discussed with family Will add IV vanco ( WBC higher) Will increase Levemir Vu Edward MD Jul 27, 2020 10:01
[2020-07-27] MEDS: Levemir Flexpen SUBQ SCH ×2 (10:20→21:30)
--- NOTE | 2020-07-27 10:30 | Nephrology Progress Note ---
Assessment/Plan Problem List: (1) Hyponatremia (2) Hypoxia (3) Pneumonitis (4) Acute respiratory failure due to COVID-19 (5) DMII (diabetes mellitus, type 2) (6) HTN (hypertension) Assessment Hyponatremia, improved with saline infusion COVID-19 infection Pneumonia, acute respiratory failure, hypoxia Diabetes mellitus Hypertension Plan July 27: Labs reviewed. Renal parameters stable. Low potassium addressed. FiO2 70%. Blood sugar elevated. Levemir dose is being adjusted. Continue per consultants. July 26: Labs reviewed. Renal parameters stable. Patient now intubated on ventilator in ICU. Blood sugar elevated. Levemir added. Will watch electrolytes. 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 July 25: Labs reviewed. Renal parameters stable. Continue per consultants. July 24: Labs reviewed. Renal parameters stable. Continue per pulmonary. Medication list reviewed. July 23: No labs drawn today. Medication list reviewed. Continue per transportation consultant. Patient full code. July 22: Labs reviewed. Stable renal parameters. Continue per consultants. July 21: No CHEM panel drawn today. Stable from renal standpoint of view. Blood pressure stable. July 20: IV changed to D5W 50 cc an hour. Renal parameters stable. Continue per consultants. July 19: Pulmonary status remains unstable. Stable from renal standpoint of view. July 18: Labs reviewed. Stable renal parameters and electrolytes. Continue per consultants. July 17: No labs drawn today. Remains stable from renal standpoint today. July 16: No labs drawn today. Continue per consultants. Stable from renal standpoint of view. July 15: Labs reviewed. Renal parameters stable. July 14: No labs from today. Continue per current management. Check labs tomorrow. July 13: No labs drawn today. Stable from renal standpoint of view. July 12: Today's labs pending. Medication list reviewed. Continue per current management and consultants. July 11: Labs reviewed. Renal parameters stable. July 10: Labs reviewed. Renal parameters electrolytes stable. Continue per consultants. July 09: Labs reviewed. Renal parameters and electrolytes stable. Continue per ID and pulmonary. Subjective ROS Limited/Unobtainable: Yes Objective Objective Last 24 Hour Vital Signs Date Time Temp Pulse Resp B/P (MAP) Pulse Ox O2 Delivery O2 Flow Rate FiO2 07/27/20 09:13 107 114/73 07/27/20 08:00 98.1 107 23 114/73 (87) 96 07/27/20 08:00 Mechanical Ventilator 07/27/20 08:00 70 07/27/20 07:55 105 07/27/20 07:00 19 113/75 Mechanical Ventilator 80 07/27/20 07:00 19 113/75 Mechanical Ventilator 80 07/27/20 07:00 99 20 113/75 (88) 99 07/27/20 06:00 98 22 122/79 (93) 99 07/27/20 06:00 19 122/78 Mechanical Ventilator 80 07/27/20 06:00 22 122/78 Mechanical Ventilator 80 07/27/20 05:00 21 114/81 Mechanical Ventilator 80 07/27/20 05:00 19 114/81 Mechanical Ventilator 80 07/27/20 05:00 92 19 118/83 (95) 99 07/27/20 04:59 79 22 80 07/27/20 04:00 80 07/27/20 04:00 Mechanical Ventilator 07/27/20 04:00 19 121/82 Mechanical Ventilator 80 07/27/20 04:00 19 121/82 Mechanical Ventilator 80 07/27/20 04:00 74 07/27/20 04:00 97.7 92 17 120/83 (95) 98 07/27/20 03:30 91 18 80 07/27/20 03:00 19 108/73 Mechanical Ventilator 80 07/27/20 03:00 19 108/73 Mechanical Ventilator 80 07/27/20 03:00 92 20 112/74 (87) 98 07/27/20 02:00 20 113/72 Mechanical Ventilator 80 07/27/20 02:00 20 113/72 Mechanical Ventilator 80 07/27/20 02:00 93 22 114/73 (87) 99 07/27/20 01:14 92 24 80 07/27/20 01:00 94 24 104/72 (83) 99 07/27/20 01:00 24 123/80 Mechanical Ventilator 80 07/27/20 01:00 24 123/80 Mechanical Ventilator 80 07/27/20 00:00 83 07/27/20 00:00 Mechanical Ventilator 07/27/20 00:00 23 117/84 Mechanical Ventilator 80 07/27/20 00:00 23 117/84 Mechanical Ventilator 80 07/27/20 00:00 80 07/27/20 00:00 97.8 99 23 115/72 (86) 99 07/26/20 23:17 101 25 80 07/26/20 23:00 102 25 110/75 (87) 98 07/26/20 23:00 25 110/75 Mechanical Ventilator 80 07/26/20 23:00 25 110/75 Mechanical Ventilator 80 07/26/20 22:16 104 104/71 07/26/20 22:00 24 101/69 Mechanical Ventilator 80 07/26/20 22:00 25 101/69 Mechanical Ventilator 80 07/26/20 22:00 103 24 103/76 (85) 100 07/26/20 21:30 102 24 80 07/26/20 21:00 104 25 104/71 (82) 100 07/26/20 21:00 24 107/70 Mechanical Ventilator 80 07/26/20 21:00 24 107/70 Mechanical Ventilator 80 07/26/20 20:30 112/74 07/26/20 20:30 104 24 115/77 (90) 98 07/26/20 20:15 108 27 91/64 (73) 98 07/26/20 20:00 79 07/26/20 20:00 Mechanical Ventilator 07/26/20 20:00 80 07/26/20 20:00 98.0 104 25 111/76 (88) 99 07/26/20 20:00 25 91/64 Mechanical Ventilator 80 07/26/20 20:00 25 91/64 Mechanical Ventilator 80 07/26/20 19:30 104 25 80 07/26/20 19:00 24 104/73 Mechanical Ventilator 80 07/26/20 19:00 24 104/73 Mechanical Ventilator 80 07/26/20 19:00 106 24 99/69 (79) 97 07/26/20 18:00 20 106/71 Mechanical Ventilator 80 07/26/20 18:00 20 106/71 Mechanical Ventilator 80 07/26/20 18:00 112 20 106/71 (83) 94 07/26/20 17:00 97 20 97/65 (76) 100 07/26/20 17:00 20 97/65 Mechanical Ventilator 80 07/26/20 17:00 20 97/65 Mechanical Ventilator 80 07/26/20 16:00 98 07/26/20 16:00 80 07/26/20 16:00 98.6 100 22 100/68 (79) 99 07/26/20 16:00 22 100/68 Mechanical Ventilator 80 07/26/20 16:00 22 100/68 Mechanical Ventilator 80 07/26/20 16:00 Mechanical Ventilator 07/26/20 15:00 104 21 103/73 (83) 98 07/26/20 15:00 21 103/73 Mechanical Ventilator 80 07/26/20 15:00 21 103/73 Mechanical Ventilator 80 07/26/20 14:35 106 22 80 07/26/20 14:00 104 20 109/69 (82) 100 07/26/20 14:00 21 104/67 Mechanical Ventilator 80 07/26/20 14:00 21 104/67 Mechanical Ventilator 80 07/26/20 13:01 105 102/75 07/26/20 13:00 21 104/74 Mechanical Ventilator 80 07/26/20 13:00 21 104/74 Mechanical Ventilator 80 07/26/20 13:00 109 23 102/75 (84) 100 07/26/20 12:00 98.2 112 24 119/78 (92) 98 07/26/20 12:00 80 07/26/20 12:00 108 07/26/20 12:00 Mechanical Ventilator 07/26/20 12:00 22 100/80 Mechanical Ventilator 80 07/26/20 12:00 22 100/80 Mechanical Ventilator 80 07/26/20 11:05 104 24 80 07/26/20 11:00 115 25 113/72 (86) 93 07/26/20 11:00 24 107/76 Mechanical Ventilator 80 07/26/20 11:00 24 107/76 Mechanical Ventilator 80 Intake and Output 07/26/20 07/27/20 19:00 07:00 Intake Total 918.75 ml 1139.7 ml Output Total 1270 ml 1085 ml Balance -351.25 ml 54.7 ml Free Water 50 ml 100 ml IV Total 403.75 ml 259.7 ml Tube Feeding 465 ml 660 ml Other 120 ml Output Urine Total 1270 ml 1085 ml Current Medications Medications (Trade) Dose Ordered Sig/Marian Route PRN Reason Start Time Stop Time Status Last Admin Dose Admin Acetaminophen (Tylenol) 650 mg Q4H PRN RECTAL Temp >100.5 07/18/20 18:30 08/17/20 18:29 07/18/20 18:40 Acetaminophen (Tylenol) 650 mg Q6H PRN ORAL For Pain 07/07/20 15:45 08/06/20 15:44 07/16/20 09:45 Acetaminophen (Tylenol) 650 mg Q6H PRN ORAL FEVER 07/07/20 16:15 08/06/20 16:14 07/18/20 05:48 Benzonatate (Tessalon Perles) 100 mg TIDPRN PRN ORAL For Cough 07/18/20 18:30 08/17/20 18:29 Cefepime HCl 2 gm/ Dextrose 55 ml @ 110 mls/hr Q12HR IVPB 07/22/20 13:00 07/29/20 12:59 07/27/20 09:14 Chlorhexidine Gluconate (Rafaela-Hex 2%) 1 applic DAILY@2000 TOPIC 07/25/20 20:00 10/23/20 19:59 07/25/20 20:00 Dextrose (Dextrose 50%) 25 ml Q30M PRN IV Hypoglycemia 07/07/20 15:45 10/05/20 15:44 Dextrose (Dextrose 50%) 50 ml Q30M PRN IV Hypoglycemia 07/07/20 15:45 10/05/20 15:44 Docusate Sodium (Colace) 100 mg TWICE A DAY NG 07/26/20 18:00 08/25/20 17:59 07/27/20 09:13 Enoxaparin Sodium (Lovenox) 70 mg EVERY 12 HOURS SUBQ 07/25/20 21:00 10/23/20 20:59 07/27/20 09:15 Famotidine (Pepcid I.v.) 20 mg Q12HR IVP 07/20/20 09:00 08/19/20 08:59 07/27/20 09:13 Fentanyl Citrate 250 ml @ 0 mls/hr Q24H PRN IV . 07/25/20 17:27 07/27/20 17:26 07/25/20 17:50 Fluconazole/ Sodium Chloride 200 ml @ 100 mls/hr Q24H IV 07/22/20 14:00 07/29/20 13:59 07/26/20 13:00 Insulin Aspart (NovoLOG) Q6HR SUBQ 07/26/20 12:00 10/24/20 11:59 07/27/20 06:31 Insulin Detemir (Levemir) 16 units Q12HR SUBQ 07/27/20 10:30 10/24/20 10:29 07/27/20 10:20 Methylprednisolone Sodium Succinate (Solu-MEDROL) 20 mg EVERY 6 HOURS IVP 07/22/20 12:00 10/19/20 08:59 07/27/20 06:13 Metoprolol Tartrate (Lopressor) 25 mg EVERY 12 HOURS NG 07/26/20 21:00 10/24/20 20:59 07/27/20 09:13 Midazolam HCl 200 ml @ 0 mls/hr Q24H PRN IV . 07/25/20 17:25 07/27/20 17:24 07/25/20 17:30 Norepinephrine Bitartrate 4 mg/ Dextrose 250 ml @ 0 mls/hr Q24H IV 07/25/20 20:30 07/29/20 20:29 Potassium Chloride 100 ml @ 100 mls/hr Q1H IVPB 07/27/20 09:00 07/27/20 10:59 07/27/20 09:14 Potassium Chloride (K-Dur) 20 meq TWICE A DAY GT 07/26/20 18:00 10/24/20 17:59 07/27/20 09:14 Vancomycin HCl 300 ml @ 150 mls/hr ONCE ONCE IVPB 07/27/20 11:00 07/27/20 12:59 Vancomycin HCl (Vanco pharmacy to dose) 1 ea DAILY PRN MISC Per rx protocol 07/27/20 10:00 08/26/20 09:59 Vancomycin HCl 750 mg/Sodium Chloride 275 ml @ 183.333 mls/hr Q12HR@1100,2300 IVPB 07/27/20 23:00 08/01/20 22:59 Laboratory Tests 07/27/20 05:01: White Blood Count 24.2*H, Red Blood Count 4.66, Hemoglobin 13.3, Hematocrit 41.7, Mean Corpuscular Volume 89, Mean Corpuscular Hemoglobin 28.6, Mean Corpuscular Hemoglobin Concent 32.0, Red Cell Distribution Width 13.0, Platelet Count 247, Mean Platelet Volume 10.4H, Neutrophils (%) (Auto) , Lymphocytes (%) (Auto) , Monocytes (%) (Auto) , Eosinophils (%) (Auto) , Basophils (%) (Auto) , Differential Total Cells Counted 100, Neutrophils % (Manual) 94H, Lymphocytes % (Manual) 3L, Monocytes % (Manual) 3, Eosinophils % (Manual) 0, Basophils % (Manual) 0, Band Neutrophils 0, Platelet Estimate Adequate, Platelet Morphology Normal, Red Blood Cell Morphology Normal, Sodium Level 139, Potassium Level 3.3L , Chloride Level 96L, Carbon Dioxide Level 32, Anion Gap 11, Blood Urea Nitrogen 52H, Creatinine 1.0, Estimat Glomerular Filtration Rate 56.0, Glucose Level 427H , Calcium Level 9.2, Phosphorus Level 4.2, Magnesium Level 2.8H, Total Bilirubin 0.4, Aspartate Amino Transf (AST/SGOT) 31, Alanine Aminotransferase (ALT/SGPT) 48, Alkaline Phosphatase 93, C-Reactive Protein, Quantitative 0.6, Pro-B-Type Natriuretic Peptide 164H, Total Protein 7.1, Albumin 2.6L, Globulin 4.5, Albumin/Globulin Ratio 0.6L Height (Feet): 5 Height (Inches): 3.00 Weight (Pounds): 162 General Appearance: no apparent distress EENT: other - Intubated on ventilator Cardiovascular: tachycardia Respiratory/Chest: decreased breath sounds Abdomen: distended Objective No change Anurag Bridges MD Jul 27, 2020 10:30
[2020-07-27] MEDS ORDERED: Vancomycin 1.5gm/300ml Premix IVPB ONE (11:00)
[2020-07-27] MEDS: FLUCONAZOLE 400 MG/200 ML IV SCH (13:11)
--- NOTE | 2020-07-27 13:23 | General Progress Note ---
Subjective ROS Limited/Unobtainable: No Allergies: Coded Allergies: No Known Allergies (Unverified , 07/07/20) Objective Last 24 Hour Vital Signs Date Time Temp Pulse Resp B/P (MAP) Pulse Ox O2 Delivery O2 Flow Rate FiO2 07/27/20 13:00 101 22 140/97 (111) 99 07/27/20 12:00 100 07/27/20 12:00 98.0 95 21 138/88 (105) 07/27/20 12:00 Mechanical Ventilator 07/27/20 11:45 101 20 138/85 (102) 98 07/27/20 11:30 101 20 141/100 (114) 98 07/27/20 11:20 100 07/27/20 11:17 104 07/27/20 11:15 105 21 147/100 (116) 98 07/27/20 11:02 80 07/27/20 11:00 103 24 138/88 (105) 99 07/27/20 10:45 107 26 154/127 (136) 92 07/27/20 10:35 89 19 80 07/27/20 10:30 107 27 140/91 (107) 92 07/27/20 10:15 102 21 133/86 (102) 99 07/27/20 10:00 23 125/82 Mechanical Ventilator 70 07/27/20 10:00 23 125/82 Mechanical Ventilator 70 07/27/20 10:00 107 23 125/82 (96) 99 07/27/20 09:45 110 23 121/73 (89) 95 07/27/20 09:30 115 25 122/74 (90) 94 07/27/20 09:15 114 24 107/66 (80) 95 07/27/20 09:13 107 114/73 07/27/20 09:00 113 24 111/64 (80) 94 07/27/20 09:00 24 111/64 Mechanical Ventilator 70 07/27/20 09:00 24 111/64 Mechanical Ventilator 70 07/27/20 08:00 98.1 107 23 114/73 (87) 96 07/27/20 08:00 Mechanical Ventilator 07/27/20 08:00 23 114/73 Mechanical Ventilator 70 07/27/20 08:00 23 114/73 Mechanical Ventilator 70 07/27/20 08:00 70 07/27/20 07:55 105 07/27/20 07:40 103 26 80 07/27/20 07:00 19 113/75 Mechanical Ventilator 80 07/27/20 07:00 19 113/75 Mechanical Ventilator 80 07/27/20 07:00 99 20 113/75 (88) 99 07/27/20 06:00 98 22 122/79 (93) 99 07/27/20 06:00 19 122/78 Mechanical Ventilator 80 07/27/20 06:00 22 122/78 Mechanical Ventilator 80 07/27/20 05:00 21 114/81 Mechanical Ventilator 80 07/27/20 05:00 19 114/81 Mechanical Ventilator 80 07/27/20 05:00 92 19 118/83 (95) 99 07/27/20 04:59 79 22 80 07/27/20 04:00 80 07/27/20 04:00 Mechanical Ventilator 07/27/20 04:00 19 121/82 Mechanical Ventilator 80 07/27/20 04:00 19 121/82 Mechanical Ventilator 80 07/27/20 04:00 74 07/27/20 04:00 97.7 92 17 120/83 (95) 98 07/27/20 03:30 91 18 80 07/27/20 03:00 19 108/73 Mechanical Ventilator 80 07/27/20 03:00 19 108/73 Mechanical Ventilator 80 07/27/20 03:00 92 20 112/74 (87) 98 07/27/20 02:00 20 113/72 Mechanical Ventilator 80 07/27/20 02:00 20 113/72 Mechanical Ventilator 80 07/27/20 02:00 93 22 114/73 (87) 99 07/27/20 01:14 92 24 80 07/27/20 01:00 94 24 104/72 (83) 99 07/27/20 01:00 24 123/80 Mechanical Ventilator 80 07/27/20 01:00 24 123/80 Mechanical Ventilator 80 07/27/20 00:00 83 07/27/20 00:00 Mechanical Ventilator 07/27/20 00:00 23 117/84 Mechanical Ventilator 80 07/27/20 00:00 23 117/84 Mechanical Ventilator 80 07/27/20 00:00 80 07/27/20 00:00 97.8 99 23 115/72 (86) 99 07/26/20 23:17 101 25 80 07/26/20 23:00 102 25 110/75 (87) 98 07/26/20 23:00 25 110/75 Mechanical Ventilator 80 07/26/20 23:00 25 110/75 Mechanical Ventilator 80 07/26/20 22:16 104 104/71 07/26/20 22:00 24 101/69 Mechanical Ventilator 80 07/26/20 22:00 25 101/69 Mechanical Ventilator 80 07/26/20 22:00 103 24 103/76 (85) 100 07/26/20 21:30 102 24 80 07/26/20 21:00 104 25 104/71 (82) 100 07/26/20 21:00 24 107/70 Mechanical Ventilator 80 07/26/20 21:00 24 107/70 Mechanical Ventilator 80 07/26/20 20:30 112/74 07/26/20 20:30 104 24 115/77 (90) 98 07/26/20 20:15 108 27 91/64 (73) 98 07/26/20 20:00 79 07/26/20 20:00 Mechanical Ventilator 07/26/20 20:00 80 07/26/20 20:00 98.0 104 25 111/76 (88) 99 07/26/20 20:00 25 91/64 Mechanical Ventilator 80 07/26/20 20:00 25 91/64 Mechanical Ventilator 80 07/26/20 19:30 104 25 80 07/26/20 19:00 24 104/73 Mechanical Ventilator 80 07/26/20 19:00 24 104/73 Mechanical Ventilator 80 07/26/20 19:00 106 24 99/69 (79) 97 07/26/20 18:00 20 106/71 Mechanical Ventilator 80 07/26/20 18:00 20 106/71 Mechanical Ventilator 80 07/26/20 18:00 112 20 106/71 (83) 94 07/26/20 17:00 97 20 97/65 (76) 100 07/26/20 17:00 20 97/65 Mechanical Ventilator 80 07/26/20 17:00 20 97/65 Mechanical Ventilator 80 07/26/20 16:00 98 07/26/20 16:00 80 07/26/20 16:00 98.6 100 22 100/68 (79) 99 07/26/20 16:00 22 100/68 Mechanical Ventilator 80 07/26/20 16:00 22 100/68 Mechanical Ventilator 80 07/26/20 16:00 Mechanical Ventilator 07/26/20 15:00 104 21 103/73 (83) 98 07/26/20 15:00 21 103/73 Mechanical Ventilator 80 07/26/20 15:00 21 103/73 Mechanical Ventilator 80 07/26/20 14:35 106 22 80 07/26/20 14:00 104 20 109/69 (82) 100 07/26/20 14:00 21 104/67 Mechanical Ventilator 80 07/26/20 14:00 21 104/67 Mechanical Ventilator 80 Intake and Output 07/26/20 07/27/20 19:00 07:00 Intake Total 918.75 ml 1139.7 ml Output Total 1270 ml 1085 ml Balance -351.25 ml 54.7 ml Free Water 50 ml 100 ml IV Total 403.75 ml 259.7 ml Tube Feeding 465 ml 660 ml Other 120 ml Output Urine Total 1270 ml 1085 ml Laboratory Tests 07/27/20 05:01: White Blood Count 24.2*H, Red Blood Count 4.66, Hemoglobin 13.3, Hematocrit 41.7, Mean Corpuscular Volume 89, Mean Corpuscular Hemoglobin 28.6, Mean Corpuscular Hemoglobin Concent 32.0, Red Cell Distribution Width 13.0, Platelet Count 247, Mean Platelet Volume 10.4H, Neutrophils (%) (Auto) , Lymphocytes (%) (Auto) , Monocytes (%) (Auto) , Eosinophils (%) (Auto) , Basophils (%) (Auto) , Differential Total Cells Counted 100, Neutrophils % (Manual) 94H, Lymphocytes % (Manual) 3L, Monocytes % (Manual) 3, Eosinophils % (Manual) 0, Basophils % (Manual) 0, Band Neutrophils 0, Platelet Estimate Adequate, Platelet Morphology Normal, Red Blood Cell Morphology Normal, Sodium Level 139, Potassium Level 3.3L , Chloride Level 96L, Carbon Dioxide Level 32, Anion Gap 11, Blood Urea Nitrogen 52H, Creatinine 1.0, Estimat Glomerular Filtration Rate 56.0, Glucose Level 427H , Calcium Level 9.2, Phosphorus Level 4.2, Magnesium Level 2.8H, Total Bilirubin 0.4, Aspartate Amino Transf (AST/SGOT) 31, Alanine Aminotransferase (ALT/SGPT) 48, Alkaline Phosphatase 93, C-Reactive Protein, Quantitative 0.6, Pro-B-Type Natriuretic Peptide 164H, Total Protein 7.1, Albumin 2.6L, Globulin 4.5, Albumin/Globulin Ratio 0.6L 07/27/20 10:47: Arterial Blood pH 7.358, Arterial Blood Partial Pressure CO2 65.1*H, Arterial Blood Partial Pressure O2 61.8L, Arterial Blood HCO3 35.8H, Arterial Blood Oxygen Saturation 87.4*L, Arterial Blood Base Excess 7.9H, Timbo Test Positive Height (Feet): 5 Height (Inches): 3.00 Weight (Pounds): 162 General Appearance: no apparent distress EENT: normal ENT inspection Neck: supple Respiratory/Chest: decreased breath sounds Abdomen: hypoactive bowel sounds Extremities: non-tender Assessment/Plan Problem List: (1) Dysphagia ICD Codes: R13.10 - Dysphagia, unspecified SNOMED: 95357784, 267091875 (2) COVID-19 virus infection ICD Codes: U07.1 - COVID-19 SNOMED: 169344879 (3) HTN (hypertension) ICD Codes: I10 - Essential (primary) hypertension SNOMED: 72752056 (4) DMII (diabetes mellitus, type 2) ICD Codes: E11.9 - Type 2 diabetes mellitus without complications SNOMED: 94528102 Status: not improved Assessment/Plan: coverage note for dr Malcolm intubated NGTF DM control abx per ID will Steffen Webster MD Jul 27, 2020 13:23
--- NOTE | 2020-07-27 19:29 | NUR ---
NURSE HAND-OFF REPORT: Latest Vital Signs: Temperature 97.8 , Pulse 88 , B/P 140 /106 , Respiratory Rate 19 , O2 SAT 100 , Mechanical Ventilator, O2 Flow Rate . Vital Sign Comment: RASS -2 EKG Rhythm: Sinus Rhythm Rhythm change?: N Lat[address] Fall Score: 35 Fall Risk: Medium Risk Safety Measures: Call light Within Reach, Bed Alarm Zone 3, Side Rails Side Rails x2, Bed position Low and Locked. Fall Precautions: Yellow Socks Yellow Gown Door Sign Patient Fall Education Airborne isolation endorsed Report given to Jacki Cabezas RN.
--- NOTE | 2020-07-27 19:30 | NUR ---
Received report from LIANA Julian and assumed care of patient.
[2020-07-27] MEDS: Dyna-Hex 2% Top Sol 2oz TOPIC SCH (20:39)
[2020-07-27] MEDS: Versed 100mg/NS 200ml 200 ML IV PRN (21:05)
--- NOTE | 2020-07-27 21:15 | NUR ---
Pt on cooling blanket and temperature reading 95.5. Placed the machine on standby and "monitor only" mode to prevent further cooling of patient. Placed blankets on patient. Asked patient if she felt cold, pt denied. Will watch temperature closely and intervene further if necessary.
--- NOTE | 2020-07-27 22:30 | NUR ---
Temperature now normothermic. Patient repositioned and oral care provided. Patient much more calm and no longer having anxiety. VSS, will continue to monitor.
[2020-07-27] MEDS: Vancomycin 750mg/NS 275ml IVPB SCH ×2 (23:38)
[2020-07-28] VITALS (59 sets, daily range): BP systolic 90–154; BP diastolic 58–84
--- NOTE | 2020-07-28 | NUR ---
Midnight assessment complete. See interventions and assessment for details. VSS, pt repositioned, sedated. Oral care provided, will continue to monitor.
--- NOTE | 2020-07-28 02:30 | NUR ---
Complete bath and linen change done on patient. Pt repositioned, oral care provided, cooling blanket removed from patient due to normothermia will monitor temperature closely. See spreadsheets/interventions for other details. Will continue to monitor the patient, VSS.
--- NOTE | 2020-07-28 04:30 | NUR ---
Complete bath and linen farrah performed on patient. Patient wet under body on pad, but could not identify source except that patient has been diaphoretic. Patient penis is very edematous and appears abnormal in appearance. When attempting to pull foreskin back to perform Fenrandez care discharge came out that was thick and white in appearance. Cleansed as able, however, feel this should be assessed by Physician. Lifted penis and made a hammock out of a pillow case to alleviate discomfort. Patient only states painful when asked. Denies normal pain in penis. Affirmatively nods it is unusual to have this pain in his penis. Pt repositioned, oral care provided and VSS (B/P) post Albumin. Pt normothermic. Will continue to monitor. Addendum: 07/28/20 at 0510 by ALVARO EDWARDS RN ENTERED IN ERROR- WRONG PATIENT
--- NOTE | 2020-07-28 04:40 | NUR ---
Pt remains stable. Repositioned and oral care provided. Will continue to monitor.
[2020-07-28] MEDS: Solu-MEDROL 40mg Inj IVP SCH ×4 (05:37→23:18)
[2020-07-28] MEDS: NovoLOG Insulin Flexpen SUBQ SCH ×5 (05:38→23:52)
[2020-07-28 05:46] LABS: HEMATOCRIT 39.8 % (37.0-47.0); HEMOGLOBIN 12.6 G/DL (12.0-16.0); MEAN CORPUSCULAR VOLUME 90 FL (80-99); PLATELET COUNT 215 K/UL (150-450); RED BLOOD COUNT 4.43 M/UL (4.20-5.40); RED CELL DISTRIBUTION WIDTH 13.1 % (11.6-14.8)
--- NOTE | 2020-07-28 05:51 | NUR ---
Pt remains intubated with a size7.5 ETT secured at the 24 cm maria g, settings AC 16/ VT450/+5/FiO2 100. Lung sounds been diminished suctioned for scant amount of secretions through ett. All vent settings and alarms have been checked
[2020-07-28 05:56] LABS: ALANINE AMINOTRANSFERASE 39 U/L (12-78); ALBUMIN 2.3 G/DL (3.4-5.0); ALBUMIN/GLOBULIN RATIO 0.6 (1.0-2.7); ALKALINE PHOSPHATASE 83 U/L (46-116); ANION GAP 7 mmol/L (5-15); ASPARTATE AMINO TRANSFERASE 24 U/L (15-37); BILIRUBIN,TOTAL 0.3 MG/DL (0.2-1.0); BLOOD UREA NITROGEN 50 mg/dL (7-18); CALCIUM 9.3 MG/DL (8.5-10.1); CARBON DIOXIDE 32 MMOL/L (21-32); CHLORIDE 102 MMOL/L (98-107); CREATININE 0.9 MG/DL (0.55-1.30); LACTATE DEHYDROGENASE 445 U/L (81-234); POTASSIUM 4.5 MMOL/L (3.5-5.1); SODIUM 141 MMOL/L (136-145)
[2020-07-28 06:05] LABS: PHOSPHORUS 3.9 MG/DL (2.5-4.9)
--- NOTE | 2020-07-28 06:17 | NUR ---
Patient remains stable. elevated heart rate this am, but BP remains stable. WBC came back critically high at 27.0 called from the lab at 0601. This is slightly up from the critical high level yesterday of 24.2. Patient on multiple antibiotics at this time. Pt remains afebrile despite removing the cooling blanket. Pt repositioned and oral care provided. Will continue to monitor the patient.
--- NOTE | 2020-07-28 07:17 | NUR ---
Report given to LIANA Dickens who assumed care of patient.
--- NOTE | 2020-07-28 07:20 | NUR ---
NURSE NOTES: Report received from Jacki Denson,travelling RN.Pt asleep noted no resp distress sedated orally intubated,ETT7,5 lip line 24 cm,Ordered vent settings tolerated,no signs of discomfort noted,S-Tach on the monitor,OGT feeding Glucerna 1.2 at 55 ml/hr,in placed per auscultation,no residual noted,Fernandez cath draining yellow urine,skin warm and dry with PIV sites x4 intact,with Fentanyl drip at 60 mcg/hr and Versed at 2 mg /hr,SR up x2 HOB elevated bed lock in lowest position ,will continue with plans of care.
[2020-07-28] MEDS: FENTANYL CITRATE IV PRN ×2 (07:52→23:22)
[2020-07-28] MEDS: NS IV PRN ×2 (07:52→23:22)
--- NOTE | 2020-07-28 08:54 | Pulmonology Progress Note ---
Subjective ROS Limited/Unobtainable: No Interval Events: S/p intubation Constitutional: Reports: no symptoms HEENT: Repors: no symptoms Respiratory: Reports: shortness of breath Gastrointestinal/Abdominal: Reports: no symptoms Psychiatric: Reports: no symptoms Skin: Reports: no symptoms Musculoskeletal: Reports: no symptoms Allergies: Coded Allergies: No Known Allergies (Unverified , 07/07/20) Objective Last 24 Hour Vital Signs Date Time Temp Pulse Resp B/P (MAP) Pulse Ox O2 Delivery O2 Flow Rate FiO2 07/28/20 08:00 22 116/64 Mechanical Ventilator 100 07/28/20 08:00 22 116/64 Mechanical Ventilator 100 07/28/20 07:52 20 136/79 Mechanical Ventilator 100 07/28/20 06:00 19 116/63 Mechanical Ventilator 100 07/28/20 06:00 19 116/63 Mechanical Ventilator 100 07/28/20 06:00 97.7 108 18 116/63 (80) 96 07/28/20 05:45 109 18 111/65 (80) 96 07/28/20 05:30 113 19 116/62 (80) 96 07/28/20 05:19 105 17 100 100 07/28/20 05:15 127 26 154/84 (107) 86 07/28/20 05:00 101 18 112/68 (83) 96 07/28/20 05:00 19 112/68 Mechanical Ventilator 100 07/28/20 05:00 19 112/68 Mechanical Ventilator 100 07/28/20 04:45 92 18 113/69 (84) 97 07/28/20 04:30 100 18 108/69 (82) 95 07/28/20 04:15 99 19 110/68 (82) 95 07/28/20 04:00 100 07/28/20 04:00 Mechanical Ventilator 07/28/20 04:00 18 110/68 Mechanical Ventilator 100 07/28/20 04:00 18 110/68 Mechanical Ventilator 100 07/28/20 04:00 92 07/28/20 04:00 96 18 102/63 (76) 96 07/28/20 03:45 91 20 102/66 (78) 96 07/28/20 03:30 91 17 110/68 (82) 96 07/28/20 03:15 94 18 113/73 (86) 97 07/28/20 03:00 98.5 88 18 106/66 (79) 97 07/28/20 03:00 18 113/73 Mechanical Ventilator 100 07/28/20 03:00 18 113/73 Mechanical Ventilator 100 07/28/20 02:45 85 17 107/67 (80) 97 07/28/20 02:44 83 22 100 100 07/28/20 02:30 85 17 103/69 (80) 98 07/28/20 02:15 87 17 108/65 (79) 98 07/28/20 02:00 98.2 89 18 105/63 (77) 98 07/28/20 02:00 17 108/65 Mechanical Ventilator 100 07/28/20 02:00 17 108/65 Mechanical Ventilator 100 07/28/20 01:45 78 20 112/78 (89) 100 07/28/20 01:30 85 17 103/69 (80) 100 07/28/20 01:15 84 19 106/75 (85) 99 07/28/20 01:00 97.8 81 18 110/75 (87) 98 07/28/20 01:00 19 106/75 Mechanical Ventilator 100 07/28/20 01:00 19 106/75 Mechanical Ventilator 100 07/28/20 00:45 80 18 102/58 (73) 99 07/28/20 00:43 81 19 100 100 07/28/20 00:30 81 19 93/61 (72) 99 07/28/20 00:15 77 18 96/69 (78) 100 07/28/20 00:00 100 07/28/20 00:00 76 07/28/20 00:00 18 96/69 Mechanical Ventilator 100 07/28/20 00:00 18 96/69 Mechanical Ventilator 100 07/28/20 00:00 Mechanical Ventilator 07/28/20 00:00 97.2 77 18 99/67 (78) 100 07/27/20 23:45 79 16 93/68 (76) 99 07/27/20 23:30 79 17 102/72 (82) 99 07/27/20 23:15 77 18 112/78 (89) 98 07/27/20 23:00 96.5 77 20 104/74 (84) 96 07/27/20 23:00 18 112/78 Mechanical Ventilator 100 07/27/20 23:00 18 112/78 Mechanical Ventilator 100 07/27/20 22:48 79 19 100 100 07/27/20 22:45 77 19 105/73 (84) 97 07/27/20 22:30 77 17 98/70 (79) 100 07/27/20 22:15 76 17 112/68 (83) 100 07/27/20 22:00 18 112/68 Mechanical Ventilator 100 07/27/20 22:00 18 96/69 Mechanical Ventilator 100 07/27/20 22:00 96.0 74 18 114/69 (84) 100 07/27/20 21:45 75 20 103/76 (85) 95 07/27/20 21:30 76 19 110/78 (89) 94 07/27/20 21:15 95.5 87 19 117/82 (94) 94 07/27/20 21:05 32 128/85 Mechanical Ventilator 100 07/27/20 21:00 33 128/88 Mechanical Ventilator 100 07/27/20 21:00 100 27 128/88 (101) 95 07/27/20 20:45 103 27 111/90 (97) 92 07/27/20 20:39 74 128/86 07/27/20 20:30 81 18 128/86 (100) 100 07/27/20 20:30 30 128/84 Mechanical Ventilator 100 07/27/20 20:15 111 25 144/89 (107) 92 07/27/20 20:00 Mechanical Ventilator 07/27/20 20:00 32 134/89 Mechanical Ventilator 100 07/27/20 20:00 96.7 76 17 134/89 (104) 100 07/27/20 20:00 100 07/27/20 20:00 71 07/27/20 19:45 85 17 129/83 (98) 07/27/20 19:30 88 19 140/106 (117) 100 07/27/20 19:25 75 20 100 100 07/27/20 19:00 94 19 124/78 (93) 100 07/27/20 19:00 19 124/78 Mechanical Ventilator 100 07/27/20 18:30 95 18 117/73 (88) 99 07/27/20 18:00 19 114/71 Mechanical Ventilator 100 07/27/20 18:00 100 19 114/71 (85) 99 07/27/20 17:30 96 19 123/73 (90) 99 07/27/20 17:15 97 21 113/74 (87) 98 07/27/20 17:00 94 19 123/84 (97) 98 07/27/20 17:00 19 123/84 Mechanical Ventilator 100 07/27/20 16:45 95 18 121/79 (93) 07/27/20 16:45 18 121/79 Mechanical Ventilator 100 07/27/20 16:30 18 119/78 Mechanical Ventilator 100 07/27/20 16:30 95 18 119/78 (92) 98 07/27/20 16:15 94 18 120/77 (91) 99 07/27/20 16:00 Mechanical Ventilator 07/27/20 16:00 97.8 95 18 120/89 (99) 07/27/20 16:00 18 120/89 Mechanical Ventilator 100 07/27/20 16:00 18 120/89 Mechanical Ventilator 100 07/27/20 16:00 100 07/27/20 15:55 92 07/27/20 15:51 93 20 100 07/27/20 15:00 21 116/82 Mechanical Ventilator 100 07/27/20 15:00 21 116/82 Mechanical Ventilator 100 07/27/20 15:00 101 21 116/82 (93) 100 07/27/20 14:00 102 22 123/83 (96) 07/27/20 14:00 22 123/83 Mechanical Ventilator 100 07/27/20 14:00 22 123/83 Mechanical Ventilator 100 07/27/20 13:00 101 22 140/97 (111) 99 07/27/20 13:00 22 140/97 Mechanical Ventilator 100 07/27/20 13:00 22 140/97 Mechanical Ventilator 100 07/27/20 12:00 100 07/27/20 12:00 20 138/88 Mechanical Ventilator 100 07/27/20 12:00 21 138/88 Mechanical Ventilator 100 07/27/20 12:00 98.0 95 21 138/88 (105) 07/27/20 12:00 Mechanical Ventilator 07/27/20 11:45 101 20 138/85 (102) 98 07/27/20 11:30 101 20 141/100 (114) 98 07/27/20 11:20 100 07/27/20 11:17 104 07/27/20 11:15 105 21 147/100 (116) 98 07/27/20 11:02 80 07/27/20 11:00 24 138/88 Mechanical Ventilator 70 07/27/20 11:00 24 138/88 Mechanical Ventilator 70 07/27/20 11:00 103 24 138/88 (105) 99 07/27/20 10:45 107 26 154/127 (136) 92 07/27/20 10:45 26 154/127 Mechanical Ventilator 70 07/27/20 10:35 89 19 100 07/27/20 10:30 107 27 140/91 (107) 92 07/27/20 10:30 27 140/91 Mechanical Ventilator 70 07/27/20 10:15 102 21 133/86 (102) 99 07/27/20 10:00 23 125/82 Mechanical Ventilator 70 07/27/20 10:00 23 125/82 Mechanical Ventilator 70 07/27/20 10:00 107 23 125/82 (96) 99 07/27/20 09:45 110 23 121/73 (89) 95 07/27/20 09:30 115 25 122/74 (90) 94 07/27/20 09:15 114 24 107/66 (80) 95 07/27/20 09:13 107 114/73 07/27/20 09:00 113 24 111/64 (80) 94 07/27/20 09:00 24 111/64 Mechanical Ventilator 70 07/27/20 09:00 24 111/64 Mechanical Ventilator 70 Intake and Output 07/27/20 07/28/20 19:00 07:00 Intake Total 1504.75 ml 705.5 ml Output Total 1110 ml 850 ml Balance 394.75 ml -144.5 ml IV Total 844.75 ml 100.5 ml Tube Feeding 660 ml 605 ml Output Urine Total 1110 ml 850 ml General Appearance: no acute distress HEENT: normocephalic Respiratory: decreased breath sounds Cardiovascular: normal peripheral pulses Abdomen: normal bowel sounds Microbiology Date/Time Source Procedure Growth Status 07/25/20 17:46 Sputum Induced Gram Stain - Final Resulted 07/25/20 17:46 Sputum Induced Sputum Culture - Preliminary NO GROWTH AFTER 24 HOURS Resulted Laboratory Tests 07/27/20 10:47: Arterial Blood pH 7.358, Arterial Blood Partial Pressure CO2 65.1*H, Arterial Blood Partial Pressure O2 61.8L, Arterial Blood HCO3 35.8H, Arterial Blood Oxygen Saturation 87.4*L, Arterial Blood Base Excess 7.9H, Timbo Test Positive 07/28/20 04:00: White Blood Count 27.0*H, Red Blood Count 4.43, Hemoglobin 12.6, Hematocrit 39.8, Mean Corpuscular Volume 90, Mean Corpuscular Hemoglobin 28.5, Mean Corpuscular Hemoglobin Concent 31.7L, Red Cell Distribution Width 13.1, Platelet Count 215, Mean Platelet Volume 10.8H, Neutrophils (%) (Auto) , Lymphocytes (%) (Auto) , Monocytes (%) (Auto) , Eosinophils (%) (Auto) , Basophils (%) (Auto) , Neutrophils % (Manual) [Pending], Lymphocytes % (Manual) [Pending], Platelet Estimate [Pending], Platelet Morphology [Pending], Sodium Level 141, Potassium Level 4.5, Chloride Level 102, Carbon Dioxide Level 32, Anion Gap 7, Blood Urea Nitrogen 50H, Creatinine 0.9, Estimat Glomerular Filtration Rate > 60, Glucose Level 309#H, Calcium Level 9.3, Phosphorus Level 3.9, Magnesium Level 2.7H, Total Bilirubin 0.3, Aspartate Amino Transf (AST/SGOT) 24, Alanine Aminotransferase (ALT/SGPT) 39, Alkaline Phosphatase 83, Lactate Dehydrogenase 445H, Total Protein 6.2L, Albumin 2.3L, Globulin 3.9, Albumin/Globulin Ratio 0.6L 07/28/20 07:44: Arterial Blood pH 7.383, Arterial Blood Partial Pressure CO2 62.6*H, Arterial Blood Partial Pressure O2 80.0, Arterial Blood HCO3 36.5H, Arterial Blood Oxygen Saturation 94.5L, Arterial Blood Base Excess 9.1*H, Timbo Test Positive Current Medications Medications (Trade) Dose Ordered Sig/Marian Route PRN Reason Start Time Stop Time Status Last Admin Dose Admin Acetaminophen (Tylenol) 650 mg Q4H PRN RECTAL Temp >100.5 07/18/20 18:30 08/17/20 18:29 07/18/20 18:40 Acetaminophen (Tylenol) 650 mg Q6H PRN ORAL For Pain 07/07/20 15:45 08/06/20 15:44 07/16/20 09:45 Acetaminophen (Tylenol) 650 mg Q6H PRN ORAL FEVER 07/07/20 16:15 08/06/20 16:14 07/18/20 05:48 Benzonatate (Tessalon Perles) 100 mg TIDPRN PRN ORAL For Cough 07/18/20 18:30 08/17/20 18:29 Cefepime HCl 2 gm/ Dextrose 55 ml @ 110 mls/hr Q12HR IVPB 07/22/20 13:00 07/29/20 12:59 07/27/20 20:39 Chlorhexidine Gluconate (Rafaela-Hex 2%) 1 applic DAILY@2000 TOPIC 07/25/20 20:00 10/23/20 19:59 07/27/20 20:39 Dextrose (Dextrose 50%) 25 ml Q30M PRN IV Hypoglycemia 07/07/20 15:45 10/05/20 15:44 Dextrose (Dextrose 50%) 50 ml Q30M PRN IV Hypoglycemia 07/07/20 15:45 10/05/20 15:44 Docusate Sodium (Colace) 100 mg EVERY 12 HOURS NG 07/27/20 21:00 08/25/20 17:59 07/27/20 20:38 Enoxaparin Sodium (Lovenox) 70 mg EVERY 12 HOURS SUBQ 07/25/20 21:00 10/23/20 20:59 07/27/20 20:38 Famotidine (Pepcid I.v.) 20 mg Q12HR IVP 07/20/20 09:00 08/19/20 08:59 07/27/20 20:39 Fentanyl Citrate 1000 mcg/Sodium Chloride 130 ml @ 0 mls/hr Q24H PRN IV SEDATION 07/27/20 21:00 07/29/20 20:59 07/28/20 07:52 Fluconazole/ Sodium Chloride 200 ml @ 100 mls/hr Q24H IV 07/22/20 14:00 07/29/20 13:59 07/27/20 13:11 Insulin Aspart (NovoLOG) Q6HR SUBQ 07/26/20 12:00 10/24/20 11:59 07/28/20 05:38 Insulin Detemir (Levemir) 16 units Q12HR SUBQ 07/27/20 10:30 10/24/20 10:29 07/27/20 21:30 Methylprednisolone Sodium Succinate (Solu-MEDROL) 20 mg EVERY 6 HOURS IVP 07/22/20 12:00 10/19/20 08:59 07/28/20 05:37 Metoprolol Tartrate (Lopressor) 25 mg EVERY 12 HOURS NG 07/26/20 21:00 10/24/20 20:59 07/27/20 20:39 Midazolam HCl 200 ml @ 0 mls/hr Q24H PRN IV To Patient Comfort 07/27/20 21:00 07/29/20 20:59 07/27/20 21:05 Norepinephrine Bitartrate 4 mg/ Dextrose 250 ml @ 0 mls/hr Q24H PRN IV For hypotension 07/27/20 17:00 07/29/20 20:29 Potassium Chloride (K-Dur) 20 meq EVERY 12 HOURS GT 07/27/20 21:00 10/24/20 17:59 07/27/20 20:37 Vancomycin HCl (Vanco pharmacy to dose) 1 ea DAILY PRN MISC Per rx protocol 07/27/20 10:00 08/26/20 09:59 Vancomycin HCl 750 mg/Sodium Chloride 275 ml @ 183.333 mls/hr Q12HR@1100,2300 IVPB 07/27/20 23:00 08/01/20 22:59 07/27/20 23:38 Assessment/Plan Assessment/Plan 1. COVID-19 pneumonia. - COVID-19 PCR positive (07/07) -> continue isolation - s/p remdexsivir - s/p azithromycin - CXR (07/13) no significant change 2. Hypoxemic respiratory distress - s/p decadron (07/08-07/17) - now on Solu-Medrol - intubated; on AC mode - now back to FiO2 100%; PEEP 5 -> will wean FiO2 3. Hypertension. 4. Diabetes mellitus. -on insulin sliding scale - Will increase Levemir 5. DVT ppx - on Lovenox, full dose empirically - f/u D-dimer (07/20) Pt was not a candidate for CTA or V/Q scan given high O2 requirement - f/u D-dimer (07/24) still elevated 6. Sputum Cx shows pseudomonas and cony - on Abx 7. Suspect bacterial infection given leukocytosis - ordered fungal culture, BCx (07/20) - on empiric Diflucan; WBC better - On Cefepime 8. Pulmonary edema -Will dc lasix gtt - CXR improved 9. Leukocytosis - Will add IV vanco ( WBC higher) Discussed with bedside RN. Discussed with family The care for this patient was discussed with my supervising physician Time spent for this case was approximately 31 minutes Milton Howard Jul 28, 2020 08:54
[2020-07-28] MEDS: Cefepime HCl 2 GM in D5W 55 ML IVPB SCH ×2 (09:27→20:43)
[2020-07-28] MEDS: Docusate 100mg/10ml Liq NG SCH ×2 (09:29→20:43)
[2020-07-28] MEDS: Enoxaparin 80mg Inj SUBQ SCH ×2 (09:30→20:47)
[2020-07-28] MEDS: Levemir Flexpen SUBQ SCH ×2 (09:34→21:25)
--- NOTE | 2020-07-28 10:00 | NUR ---
NURSE NOTES: Dr Edward at bed side updated re pt's status,informed re pt's anxiety attack and unable to titrate pt's FIO2,ordered to increas Peep to 7.
--- NOTE | 2020-07-28 10:35 | Pulmonology Progress Note ---
Subjective ROS Limited/Unobtainable: No Interval Events: S/p intubation Constitutional: Reports: no symptoms HEENT: Repors: no symptoms Respiratory: Reports: shortness of breath Gastrointestinal/Abdominal: Reports: no symptoms Psychiatric: Reports: no symptoms Skin: Reports: no symptoms Musculoskeletal: Reports: no symptoms Allergies: Coded Allergies: No Known Allergies (Unverified , 07/07/20) Objective Last 24 Hour Vital Signs Date Time Temp Pulse Resp B/P (MAP) Pulse Ox O2 Delivery O2 Flow Rate FiO2 07/28/20 09:28 126 112/69 07/28/20 08:00 22 116/64 Mechanical Ventilator 100 07/28/20 08:00 22 116/64 Mechanical Ventilator 100 07/28/20 07:52 20 136/79 Mechanical Ventilator 100 07/28/20 07:26 122 19 100 07/28/20 06:00 19 116/63 Mechanical Ventilator 100 07/28/20 06:00 19 116/63 Mechanical Ventilator 100 07/28/20 06:00 97.7 108 18 116/63 (80) 96 07/28/20 05:45 109 18 111/65 (80) 96 07/28/20 05:30 113 19 116/62 (80) 96 07/28/20 05:19 105 17 100 100 07/28/20 05:15 127 26 154/84 (107) 86 07/28/20 05:00 101 18 112/68 (83) 96 07/28/20 05:00 19 112/68 Mechanical Ventilator 100 07/28/20 05:00 19 112/68 Mechanical Ventilator 100 07/28/20 04:45 92 18 113/69 (84) 97 07/28/20 04:30 100 18 108/69 (82) 95 07/28/20 04:15 99 19 110/68 (82) 95 07/28/20 04:00 100 07/28/20 04:00 Mechanical Ventilator 07/28/20 04:00 18 110/68 Mechanical Ventilator 100 07/28/20 04:00 18 110/68 Mechanical Ventilator 100 07/28/20 04:00 92 07/28/20 04:00 96 18 102/63 (76) 96 07/28/20 03:45 91 20 102/66 (78) 96 07/28/20 03:30 91 17 110/68 (82) 96 07/28/20 03:15 94 18 113/73 (86) 97 07/28/20 03:00 98.5 88 18 106/66 (79) 97 07/28/20 03:00 18 113/73 Mechanical Ventilator 100 07/28/20 03:00 18 113/73 Mechanical Ventilator 100 07/28/20 02:45 85 17 107/67 (80) 97 07/28/20 02:44 83 22 100 100 07/28/20 02:30 85 17 103/69 (80) 98 07/28/20 02:15 87 17 108/65 (79) 98 07/28/20 02:00 98.2 89 18 105/63 (77) 98 07/28/20 02:00 17 108/65 Mechanical Ventilator 100 07/28/20 02:00 17 108/65 Mechanical Ventilator 100 07/28/20 01:45 78 20 112/78 (89) 100 07/28/20 01:30 85 17 103/69 (80) 100 07/28/20 01:15 84 19 106/75 (85) 99 07/28/20 01:00 97.8 81 18 110/75 (87) 98 07/28/20 01:00 19 106/75 Mechanical Ventilator 100 07/28/20 01:00 19 106/75 Mechanical Ventilator 100 07/28/20 00:45 80 18 102/58 (73) 99 07/28/20 00:43 81 19 100 100 07/28/20 00:30 81 19 93/61 (72) 99 07/28/20 00:15 77 18 96/69 (78) 100 07/28/20 00:00 100 07/28/20 00:00 76 07/28/20 00:00 18 96/69 Mechanical Ventilator 100 07/28/20 00:00 18 96/69 Mechanical Ventilator 100 07/28/20 00:00 Mechanical Ventilator 07/28/20 00:00 97.2 77 18 99/67 (78) 100 07/27/20 23:45 79 16 93/68 (76) 99 07/27/20 23:30 79 17 102/72 (82) 99 07/27/20 23:15 77 18 112/78 (89) 98 07/27/20 23:00 96.5 77 20 104/74 (84) 96 07/27/20 23:00 18 112/78 Mechanical Ventilator 100 07/27/20 23:00 18 112/78 Mechanical Ventilator 100 07/27/20 22:48 79 19 100 100 07/27/20 22:45 77 19 105/73 (84) 97 07/27/20 22:30 77 17 98/70 (79) 100 07/27/20 22:15 76 17 112/68 (83) 100 07/27/20 22:00 18 112/68 Mechanical Ventilator 100 07/27/20 22:00 18 96/69 Mechanical Ventilator 100 07/27/20 22:00 96.0 74 18 114/69 (84) 100 07/27/20 21:45 75 20 103/76 (85) 95 07/27/20 21:30 76 19 110/78 (89) 94 07/27/20 21:15 95.5 87 19 117/82 (94) 94 07/27/20 21:05 32 128/85 Mechanical Ventilator 100 07/27/20 21:00 33 128/88 Mechanical Ventilator 100 07/27/20 21:00 100 27 128/88 (101) 95 07/27/20 20:45 103 27 111/90 (97) 92 07/27/20 20:39 74 128/86 07/27/20 20:30 81 18 128/86 (100) 100 07/27/20 20:30 30 128/84 Mechanical Ventilator 100 07/27/20 20:15 111 25 144/89 (107) 92 07/27/20 20:00 Mechanical Ventilator 07/27/20 20:00 32 134/89 Mechanical Ventilator 100 07/27/20 20:00 96.7 76 17 134/89 (104) 100 07/27/20 20:00 100 07/27/20 20:00 71 07/27/20 19:45 85 17 129/83 (98) 07/27/20 19:30 88 19 140/106 (117) 100 07/27/20 19:25 75 20 100 100 07/27/20 19:00 94 19 124/78 (93) 100 07/27/20 19:00 19 124/78 Mechanical Ventilator 100 07/27/20 18:30 95 18 117/73 (88) 99 07/27/20 18:00 19 114/71 Mechanical Ventilator 100 07/27/20 18:00 100 19 114/71 (85) 99 07/27/20 17:30 96 19 123/73 (90) 99 07/27/20 17:15 97 21 113/74 (87) 98 07/27/20 17:00 94 19 123/84 (97) 98 07/27/20 17:00 19 123/84 Mechanical Ventilator 100 07/27/20 16:45 95 18 121/79 (93) 07/27/20 16:45 18 121/79 Mechanical Ventilator 100 07/27/20 16:30 18 119/78 Mechanical Ventilator 100 07/27/20 16:30 95 18 119/78 (92) 98 07/27/20 16:15 94 18 120/77 (91) 99 07/27/20 16:00 Mechanical Ventilator 07/27/20 16:00 97.8 95 18 120/89 (99) 07/27/20 16:00 18 120/89 Mechanical Ventilator 100 07/27/20 16:00 18 120/89 Mechanical Ventilator 100 07/27/20 16:00 100 07/27/20 15:55 92 07/27/20 15:51 93 20 100 07/27/20 15:00 21 116/82 Mechanical Ventilator 100 07/27/20 15:00 21 116/82 Mechanical Ventilator 100 07/27/20 15:00 101 21 116/82 (93) 100 07/27/20 14:00 102 22 123/83 (96) 07/27/20 14:00 22 123/83 Mechanical Ventilator 100 07/27/20 14:00 22 123/83 Mechanical Ventilator 100 07/27/20 13:00 101 22 140/97 (111) 99 07/27/20 13:00 22 140/97 Mechanical Ventilator 100 07/27/20 13:00 22 140/97 Mechanical Ventilator 100 07/27/20 12:00 100 07/27/20 12:00 20 138/88 Mechanical Ventilator 100 07/27/20 12:00 21 138/88 Mechanical Ventilator 100 07/27/20 12:00 98.0 95 21 138/88 (105) 07/27/20 12:00 Mechanical Ventilator 07/27/20 11:45 101 20 138/85 (102) 98 07/27/20 11:30 101 20 141/100 (114) 98 07/27/20 11:20 100 07/27/20 11:17 104 07/27/20 11:15 105 21 147/100 (116) 98 07/27/20 11:02 80 07/27/20 11:00 24 138/88 Mechanical Ventilator 70 07/27/20 11:00 24 138/88 Mechanical Ventilator 70 07/27/20 11:00 103 24 138/88 (105) 99 07/27/20 10:45 107 26 154/127 (136) 92 07/27/20 10:45 26 154/127 Mechanical Ventilator 70 07/27/20 10:35 89 19 100 Intake and Output 07/27/20 07/28/20 19:00 07:00 Intake Total 1504.75 ml 705.5 ml Output Total 1110 ml 850 ml Balance 394.75 ml -144.5 ml IV Total 844.75 ml 100.5 ml Tube Feeding 660 ml 605 ml Output Urine Total 1110 ml 850 ml General Appearance: no acute distress HEENT: normocephalic Respiratory: decreased breath sounds Cardiovascular: normal peripheral pulses Abdomen: normal bowel sounds Microbiology Date/Time Source Procedure Growth Status 07/25/20 17:46 Sputum Induced Gram Stain - Final Complete 07/25/20 17:46 Sputum Induced Sputum Culture - Final NO GROWTH AFTER 48 HOURS Complete Laboratory Tests 07/27/20 10:47: Arterial Blood pH 7.358, Arterial Blood Partial Pressure CO2 65.1*H, Arterial Blood Partial Pressure O2 61.8L, Arterial Blood HCO3 35.8H, Arterial Blood Oxygen Saturation 87.4*L, Arterial Blood Base Excess 7.9H, Timbo Test Positive 07/28/20 04:00: White Blood Count 27.0*H, Red Blood Count 4.43, Hemoglobin 12.6, Hematocrit 39.8, Mean Corpuscular Volume 90, Mean Corpuscular Hemoglobin 28.5, Mean Corpuscular Hemoglobin Concent 31.7L, Red Cell Distribution Width 13.1, Platelet Count 215, Mean Platelet Volume 10.8H, Neutrophils (%) (Auto) , Lymphocytes (%) (Auto) , Monocytes (%) (Auto) , Eosinophils (%) (Auto) , Basophils (%) (Auto) , Neutrophils % (Manual) [Pending], Lymphocytes % (Manual) [Pending], Platelet Estimate [Pending], Platelet Morphology [Pending], Sodium Level 141, Potassium Level 4.5, Chloride Level 102, Carbon Dioxide Level 32, Anion Gap 7, Blood Urea Nitrogen 50H, Creatinine 0.9, Estimat Glomerular Filtration Rate > 60, Glucose Level 309#H, Calcium Level 9.3, Phosphorus Level 3.9, Magnesium Level 2.7H, Total Bilirubin 0.3, Aspartate Amino Transf (AST/SGOT) 24, Alanine Aminotransferase (ALT/SGPT) 39, Alkaline Phosphatase 83, Lactate Dehydrogenase 445H, Total Protein 6.2L, Albumin 2.3L, Globulin 3.9, Albumin/Globulin Ratio 0.6L 07/28/20 07:44: Arterial Blood pH 7.383, Arterial Blood Partial Pressure CO2 62.6*H, Arterial Blood Partial Pressure O2 80.0, Arterial Blood HCO3 36.5H, Arterial Blood Oxygen Saturation 94.5L, Arterial Blood Base Excess 9.1*H, Timbo Test Positive Current Medications Medications (Trade) Dose Ordered Sig/Marian Route PRN Reason Start Time Stop Time Status Last Admin Dose Admin Acetaminophen (Tylenol) 650 mg Q4H PRN RECTAL Temp >100.5 07/18/20 18:30 08/17/20 18:29 07/18/20 18:40 Acetaminophen (Tylenol) 650 mg Q6H PRN ORAL For Pain 07/07/20 15:45 08/06/20 15:44 07/16/20 09:45 Acetaminophen (Tylenol) 650 mg Q6H PRN ORAL FEVER 07/07/20 16:15 08/06/20 16:14 07/18/20 05:48 Benzonatate (Tessalon Perles) 100 mg TIDPRN PRN ORAL For Cough 07/18/20 18:30 08/17/20 18:29 Cefepime HCl 2 gm/ Dextrose 55 ml @ 110 mls/hr Q12HR IVPB 07/22/20 13:00 07/29/20 12:59 07/28/20 09:27 Chlorhexidine Gluconate (Rafaela-Hex 2%) 1 applic DAILY@2000 TOPIC 07/25/20 20:00 10/23/20 19:59 07/27/20 20:39 Dextrose (Dextrose 50%) 25 ml Q30M PRN IV Hypoglycemia 07/07/20 15:45 10/05/20 15:44 Dextrose (Dextrose 50%) 50 ml Q30M PRN IV Hypoglycemia 07/07/20 15:45 10/05/20 15:44 Docusate Sodium (Colace) 100 mg EVERY 12 HOURS NG 07/27/20 21:00 08/25/20 17:59 07/28/20 09:29 Enoxaparin Sodium (Lovenox) 70 mg EVERY 12 HOURS SUBQ 07/25/20 21:00 10/23/20 20:59 07/28/20 09:30 Famotidine (Pepcid I.v.) 20 mg Q12HR IVP 07/20/20 09:00 08/19/20 08:59 07/28/20 09:28 Fentanyl Citrate 1000 mcg/Sodium Chloride 130 ml @ 0 mls/hr Q24H PRN IV SEDATION 07/27/20 21:00 07/29/20 20:59 07/28/20 07:52 Fluconazole/ Sodium Chloride 200 ml @ 100 mls/hr Q24H IV 07/22/20 14:00 07/29/20 13:59 07/27/20 13:11 Insulin Aspart (NovoLOG) Q6HR SUBQ 07/26/20 12:00 10/24/20 11:59 07/28/20 05:38 Insulin Detemir (Levemir) 16 units Q12HR SUBQ 07/27/20 10:30 10/24/20 10:29 07/28/20 09:34 Methylprednisolone Sodium Succinate (Solu-MEDROL) 20 mg EVERY 6 HOURS IVP 07/22/20 12:00 10/19/20 08:59 07/28/20 05:37 Metoprolol Tartrate (Lopressor) 25 mg EVERY 12 HOURS NG 07/26/20 21:00 10/24/20 20:59 07/28/20 09:28 Midazolam HCl 200 ml @ 0 mls/hr Q24H PRN IV To Patient Comfort 07/27/20 21:00 07/29/20 20:59 07/27/20 21:05 Norepinephrine Bitartrate 4 mg/ Dextrose 250 ml @ 0 mls/hr Q24H PRN IV For hypotension 07/27/20 17:00 07/29/20 20:29 Potassium Chloride (K-Dur) 20 meq EVERY 12 HOURS GT 07/27/20 21:00 10/24/20 17:59 07/28/20 09:29 Vancomycin HCl ([facility] pharmacy to dose) 1 ea DAILY PRN MISC Per rx protocol 07/27/20 10:00 08/26/20 09:59 Vancomycin HCl 750 mg/Sodium Chloride 275 ml @ 183.333 mls/hr Q12HR@1100,2300 IVPB 07/27/20 23:00 08/01/20 22:59 07/27/20 23:38 Assessment/Plan Assessment/Plan 1. COVID-19 pneumonia. - COVID-19 PCR positive (07/07) -> continue isolation - s/p remdexsivir - s/p azithromycin - CXR (07/13) no significant change 2. Hypoxemic respiratory distress - s/p decadron (07/08-07/17) - now on Solu-Medrol - intubated; on AC mode - FiO2 100%; will increase PEEP 7->8 3. Hypertension. 4. Diabetes mellitus. -on insulin sliding scale 5. DVT ppx - on Lovenox, full dose empirically 6. Sputum Cx shows pseudomonas and cony - on Abx 7. Suspect bacterial infection given leukocytosis - ordered fungal culture, BCx (07/20) - on empiric Diflucan; WBC better - On Cefepime 8. Pulmonary edema -Off lasix gtt - CXR improved Discussed with bedside RN. Discussed with family On IV vanco ( WBC higher) On Vu Pierre MD Jul 28, 2020 10:35
--- NOTE | 2020-07-28 10:41 | Nephrology Progress Note ---
Assessment/Plan Problem List: (1) Hyponatremia (2) Hypoxia (3) Pneumonitis (4) Acute respiratory failure due to COVID-19 (5) DMII (diabetes mellitus, type 2) (6) HTN (hypertension) Assessment Hyponatremia, improved with saline infusion COVID-19 infection Pneumonia, acute respiratory failure, hypoxia Diabetes mellitus Hypertension Plan July 28: Labs reviewed. Renal parameters stable. Remains full code. Blood sugar remains high. Levemir dose increased. Not much to add from renal standpoint of view. FiO2 now is 100%. July 27: Labs reviewed. Renal parameters stable. Low potassium addressed. FiO2 70%. Blood sugar elevated. Levemir dose is being adjusted. Continue per consultants. July 26: Labs reviewed. Renal parameters stable. Patient now intubated on ventilator in ICU. Blood sugar elevated. Levemir added. Will watch electrolytes. Main management per title search manager and ID. July 25: Labs reviewed. Renal parameters stable. Continue per consultants. July 24: Labs reviewed. Renal parameters stable. Continue per pulmonary. Medication list reviewed. July 23: No labs drawn today. Medication list reviewed. Continue per customer experience consultant. Patient full code. July 22: Labs reviewed. Stable renal parameters. Continue per consultants. July 21: No CHEM panel drawn today. Stable from renal standpoint of view. Blood pressure stable. July 20: IV changed to D5W 50 cc an hour. Renal parameters stable. Continue per consultants. July 19: Pulmonary status remains unstable. Stable from renal standpoint of view. July 18: Labs reviewed. Stable renal parameters and electrolytes. Continue per consultants. July 17: No labs drawn today. Remains stable from renal standpoint today. July 16: No labs drawn today. Continue per consultants. Stable from renal standpoint of view. July 15: Labs reviewed. Renal parameters stable. July 14: No labs from today. Continue per current management. Check labs tomorrow. July 13: No labs drawn today. Stable from renal standpoint of view. July 12: Today's labs pending. Medication list reviewed. Continue per current management and consultants. July 11: Labs reviewed. Renal parameters stable. July 10: Labs reviewed. Renal parameters electrolytes stable. Continue per consultants. July 09: Labs reviewed. Renal parameters and electrolytes stable. Continue per ID and pulmonary. Subjective ROS Limited/Unobtainable: Yes Objective Objective Last 24 Hour Vital Signs Date Time Temp Pulse Resp B/P (MAP) Pulse Ox O2 Delivery O2 Flow Rate FiO2 07/28/20 09:28 126 112/69 07/28/20 08:00 22 116/64 Mechanical Ventilator 100 07/28/20 08:00 22 116/64 Mechanical Ventilator 100 07/28/20 07:52 20 136/79 Mechanical Ventilator 100 07/28/20 07:26 122 19 100 07/28/20 06:00 19 116/63 Mechanical Ventilator 100 07/28/20 06:00 19 116/63 Mechanical Ventilator 100 07/28/20 06:00 97.7 108 18 116/63 (80) 96 07/28/20 05:45 109 18 111/65 (80) 96 07/28/20 05:30 113 19 116/62 (80) 96 07/28/20 05:19 105 17 100 100 07/28/20 05:15 127 26 154/84 (107) 86 07/28/20 05:00 101 18 112/68 (83) 96 07/28/20 05:00 19 112/68 Mechanical Ventilator 100 07/28/20 05:00 19 112/68 Mechanical Ventilator 100 07/28/20 04:45 92 18 113/69 (84) 97 07/28/20 04:30 100 18 108/69 (82) 95 07/28/20 04:15 99 19 110/68 (82) 95 07/28/20 04:00 100 07/28/20 04:00 Mechanical Ventilator 07/28/20 04:00 18 110/68 Mechanical Ventilator 100 07/28/20 04:00 18 110/68 Mechanical Ventilator 100 07/28/20 04:00 92 07/28/20 04:00 96 18 102/63 (76) 96 07/28/20 03:45 91 20 102/66 (78) 96 07/28/20 03:30 91 17 110/68 (82) 96 07/28/20 03:15 94 18 113/73 (86) 97 07/28/20 03:00 98.5 88 18 106/66 (79) 97 07/28/20 03:00 18 113/73 Mechanical Ventilator 100 07/28/20 03:00 18 113/73 Mechanical Ventilator 100 07/28/20 02:45 85 17 107/67 (80) 97 07/28/20 02:44 83 22 100 100 07/28/20 02:30 85 17 103/69 (80) 98 07/28/20 02:15 87 17 108/65 (79) 98 07/28/20 02:00 98.2 89 18 105/63 (77) 98 07/28/20 02:00 17 108/65 Mechanical Ventilator 100 07/28/20 02:00 17 108/65 Mechanical Ventilator 100 07/28/20 01:45 78 20 112/78 (89) 100 07/28/20 01:30 85 17 103/69 (80) 100 07/28/20 01:15 84 19 106/75 (85) 99 07/28/20 01:00 97.8 81 18 110/75 (87) 98 07/28/20 01:00 19 106/75 Mechanical Ventilator 100 07/28/20 01:00 19 106/75 Mechanical Ventilator 100 07/28/20 00:45 80 18 102/58 (73) 99 07/28/20 00:43 81 19 100 100 07/28/20 00:30 81 19 93/61 (72) 99 07/28/20 00:15 77 18 96/69 (78) 100 07/28/20 00:00 100 07/28/20 00:00 76 07/28/20 00:00 18 96/69 Mechanical Ventilator 100 07/28/20 00:00 18 96/69 Mechanical Ventilator 100 07/28/20 00:00 Mechanical Ventilator 07/28/20 00:00 97.2 77 18 99/67 (78) 100 07/27/20 23:45 79 16 93/68 (76) 99 07/27/20 23:30 79 17 102/72 (82) 99 07/27/20 23:15 77 18 112/78 (89) 98 07/27/20 23:00 96.5 77 20 104/74 (84) 96 07/27/20 23:00 18 112/78 Mechanical Ventilator 100 07/27/20 23:00 18 112/78 Mechanical Ventilator 100 07/27/20 22:48 79 19 100 100 07/27/20 22:45 77 19 105/73 (84) 97 07/27/20 22:30 77 17 98/70 (79) 100 07/27/20 22:15 76 17 112/68 (83) 100 07/27/20 22:00 18 112/68 Mechanical Ventilator 100 07/27/20 22:00 18 96/69 Mechanical Ventilator 100 07/27/20 22:00 96.0 74 18 114/69 (84) 100 07/27/20 21:45 75 20 103/76 (85) 95 07/27/20 21:30 76 19 110/78 (89) 94 07/27/20 21:15 95.5 87 19 117/82 (94) 94 07/27/20 21:05 32 128/85 Mechanical Ventilator 100 07/27/20 21:00 33 128/88 Mechanical Ventilator 100 07/27/20 21:00 100 27 128/88 (101) 95 07/27/20 20:45 103 27 111/90 (97) 92 07/27/20 20:39 74 128/86 07/27/20 20:30 81 18 128/86 (100) 100 07/27/20 20:30 30 128/84 Mechanical Ventilator 100 07/27/20 20:15 111 25 144/89 (107) 92 07/27/20 20:00 Mechanical Ventilator 07/27/20 20:00 32 134/89 Mechanical Ventilator 100 07/27/20 20:00 96.7 76 17 134/89 (104) 100 07/27/20 20:00 100 07/27/20 20:00 71 07/27/20 19:45 85 17 129/83 (98) 07/27/20 19:30 88 19 140/106 (117) 100 07/27/20 19:25 75 20 100 100 07/27/20 19:00 94 19 124/78 (93) 100 07/27/20 19:00 19 124/78 Mechanical Ventilator 100 07/27/20 18:30 95 18 117/73 (88) 99 07/27/20 18:00 19 114/71 Mechanical Ventilator 100 07/27/20 18:00 100 19 114/71 (85) 99 07/27/20 17:30 96 19 123/73 (90) 99 07/27/20 17:15 97 21 113/74 (87) 98 07/27/20 17:00 94 19 123/84 (97) 98 07/27/20 17:00 19 123/84 Mechanical Ventilator 100 07/27/20 16:45 95 18 121/79 (93) 07/27/20 16:45 18 121/79 Mechanical Ventilator 100 07/27/20 16:30 18 119/78 Mechanical Ventilator 100 07/27/20 16:30 95 18 119/78 (92) 98 07/27/20 16:15 94 18 120/77 (91) 99 07/27/20 16:00 Mechanical Ventilator 07/27/20 16:00 97.8 95 18 120/89 (99) 07/27/20 16:00 18 120/89 Mechanical Ventilator 100 07/27/20 16:00 18 120/89 Mechanical Ventilator 100 07/27/20 16:00 100 07/27/20 15:55 92 07/27/20 15:51 93 20 100 07/27/20 15:00 21 116/82 Mechanical Ventilator 100 07/27/20 15:00 21 116/82 Mechanical Ventilator 100 07/27/20 15:00 101 21 116/82 (93) 100 07/27/20 14:00 102 22 123/83 (96) 07/27/20 14:00 22 123/83 Mechanical Ventilator 100 07/27/20 14:00 22 123/83 Mechanical Ventilator 100 07/27/20 13:00 101 22 140/97 (111) 99 07/27/20 13:00 22 140/97 Mechanical Ventilator 100 07/27/20 13:00 22 140/97 Mechanical Ventilator 100 07/27/20 12:00 100 07/27/20 12:00 20 138/88 Mechanical Ventilator 100 07/27/20 12:00 21 138/88 Mechanical Ventilator 100 07/27/20 12:00 98.0 95 21 138/88 (105) 07/27/20 12:00 Mechanical Ventilator 07/27/20 11:45 101 20 138/85 (102) 98 07/27/20 11:30 101 20 141/100 (114) 98 07/27/20 11:20 100 07/27/20 11:17 104 07/27/20 11:15 105 21 147/100 (116) 98 07/27/20 11:02 80 07/27/20 11:00 24 138/88 Mechanical Ventilator 70 07/27/20 11:00 24 138/88 Mechanical Ventilator 70 07/27/20 11:00 103 24 138/88 (105) 99 07/27/20 10:45 107 26 154/127 (136) 92 07/27/20 10:45 26 154/127 Mechanical Ventilator 70 Intake and Output 07/27/20 07/28/20 19:00 07:00 Intake Total 1504.75 ml 705.5 ml Output Total 1110 ml 850 ml Balance 394.75 ml -144.5 ml IV Total 844.75 ml 100.5 ml Tube Feeding 660 ml 605 ml Output Urine Total 1110 ml 850 ml Current Medications Medications (Trade) Dose Ordered Sig/Marian Route PRN Reason Start Time Stop Time Status Last Admin Dose Admin Acetaminophen (Tylenol) 650 mg Q4H PRN RECTAL Temp >100.5 07/18/20 18:30 08/17/20 18:29 07/18/20 18:40 Acetaminophen (Tylenol) 650 mg Q6H PRN ORAL For Pain 07/07/20 15:45 08/06/20 15:44 07/16/20 09:45 Acetaminophen (Tylenol) 650 mg Q6H PRN ORAL FEVER 07/07/20 16:15 08/06/20 16:14 07/18/20 05:48 Benzonatate (Tessalon Perles) 100 mg TIDPRN PRN ORAL For Cough 07/18/20 18:30 08/17/20 18:29 Cefepime HCl 2 gm/ Dextrose 55 ml @ 110 mls/hr Q12HR IVPB 07/22/20 13:00 07/29/20 12:59 07/28/20 09:27 Chlorhexidine Gluconate (Rafaela-Hex 2%) 1 applic DAILY@2000 TOPIC 07/25/20 20:00 10/23/20 19:59 07/27/20 20:39 Dextrose (Dextrose 50%) 25 ml Q30M PRN IV Hypoglycemia 07/07/20 15:45 10/05/20 15:44 Dextrose (Dextrose 50%) 50 ml Q30M PRN IV Hypoglycemia 07/07/20 15:45 10/05/20 15:44 Docusate Sodium (Colace) 100 mg EVERY 12 HOURS NG 07/27/20 21:00 08/25/20 17:59 07/28/20 09:29 Enoxaparin Sodium (Lovenox) 70 mg EVERY 12 HOURS SUBQ 07/25/20 21:00 10/23/20 20:59 07/28/20 09:30 Famotidine (Pepcid I.v.) 20 mg Q12HR IVP 07/20/20 09:00 08/19/20 08:59 07/28/20 09:28 Fentanyl Citrate 1000 mcg/Sodium Chloride 130 ml @ 0 mls/hr Q24H PRN IV SEDATION 07/27/20 21:00 07/29/20 20:59 07/28/20 07:52 Fluconazole/ Sodium Chloride 200 ml @ 100 mls/hr Q24H IV 07/22/20 14:00 07/29/20 13:59 07/27/20 13:11 Insulin Aspart (NovoLOG) Q6HR SUBQ 07/26/20 12:00 10/24/20 11:59 07/28/20 05:38 Insulin Detemir (Levemir) 16 units Q12HR SUBQ 07/27/20 10:30 10/24/20 10:29 07/28/20 09:34 Methylprednisolone Sodium Succinate (Solu-MEDROL) 20 mg EVERY 6 HOURS IVP 07/22/20 12:00 10/19/20 08:59 07/28/20 11:47 Metoprolol Tartrate (Lopressor) 25 mg EVERY 12 HOURS NG 07/26/20 21:00 10/24/20 20:59 07/28/20 09:28 Midazolam HCl 200 ml @ 0 mls/hr Q24H PRN IV To Patient Comfort 07/27/20 21:00 07/29/20 20:59 07/27/20 21:05 Norepinephrine Bitartrate 4 mg/ Dextrose 250 ml @ 0 mls/hr Q24H PRN IV For hypotension 07/27/20 17:00 07/29/20 20:29 Potassium Chloride (K-Dur) 20 meq EVERY 12 HOURS GT 07/27/20 21:00 10/24/20 17:59 07/28/20 09:29 [facility]comycin [facility] ([facility]) 1 ea DAILY PRN MISC Per rx protocol 07/27/20 10:00 08/26/20 09:59 Vancomycin HCl 750 mg/Sodium Chloride 275 ml @ 183.333 mls/hr Q12HR@1100,2300 IVPB 07/27/20 23:00 08/01/20 22:59 07/28/20 11:47 Laboratory Tests 07/27/20 10:47: Arterial Blood pH 7.358, Arterial Blood Partial Pressure CO2 65.1*H, Arterial Bl ood Partial Pressure O2 61.8L, Arterial Blood HCO3 35.8H, Arterial Blood Oxygen Saturation 87.4*L, Arterial Blood Base Excess 7.9H, Timbo Test Positive 07/28/20 04:00: White Blood Count 27.0*H, Red Blood Count 4.43, Hemoglobin 12.6, Hematocrit 39.8, Mean Corpuscular Volume 90, Mean Corpuscular Hemoglobin 28.5, Mean Corpuscular Hemoglobin Concent 31.7L, Red Cell Distribution Width 13.1, Platelet Count 215, Mean Platelet Volume 10.8H, Neutrophils (%) (Auto) , Lymphocytes (%) (Auto) , Monocytes (%) (Auto) , Eosinophils (%) (Auto) , Basophils (%) (Auto) , Neutrophils % (Manual) [Pending], Lymphocytes % (Manual) [Pending], Platelet Estimate [Pending], Platelet Morphology [Pending], Sodium Level 141, Potassium Level 4.5, Chloride Level 102, Carbon Dioxide Level 32, Anion Gap 7, Blood Urea Nitrogen 50H, Creatinine 0.9, Estimat Glomerular Filtration Rate > 60, Glucose Level 309#H, Calcium Level 9.3, Phosphorus Level 3.9, Magnesium Level 2.7H, Tota l Bilirubin 0.3, Aspartate Amino Transf (AST/SGOT) 24, Alanine Aminotransferase (ALT/SGPT) 39, Alkaline Phosphatase 83, Lactate Dehydrogenase 445H, Total Protein 6.2L, Albumin 2.3L, Globulin 3.9, Albumin/Globulin Ratio 0.6L 07/28/20 07:44: Arterial Blood pH 7.383, Arterial Blood Partial Pressure CO2 62.6*H, Arterial Blood Partial Pressure O2 80.0, Arterial Blood HCO3 36.5H, Arterial Blood Oxygen Saturation 94.5L, Arterial Blood Base Excess 9.1*H, Timbo Test Positive Height (Feet): 5 Height (Inches): 3.00 Weight (Pounds): 162 General Appearance: no apparent distress EENT: other - Intubated on ventilator Cardiovascular: tachycardia Respiratory/Chest: decreased breath sounds Abdomen: distended Objective No change Anurag Bridges MD Jul 28, 2020 10:41
[2020-07-28] MEDS: Vancomycin 750mg/NS 275ml IVPB SCH ×4 (11:47→23:15)
--- NOTE | 2020-07-28 12:00 | NUR ---
NURSE NOTES: Pt resting quietly in bed stable,oral care done,oral secretions suctioned PRN.
--- NOTE | 2020-07-28 13:34 | General Progress Note ---
Subjective ROS Limited/Unobtainable: No Allergies: Coded Allergies: No Known Allergies (Unverified , 07/07/20) Objective Last 24 Hour Vital Signs Date Time Temp Pulse Resp B/P (MAP) Pulse Ox O2 Delivery O2 Flow Rate FiO2 07/28/20 12:00 Mechanical Ventilator 07/28/20 12:00 100 07/28/20 12:00 119 21 110/59 (76) 95 07/28/20 11:00 107 22 117/72 (87) 98 07/28/20 11:00 18 113/62 Mechanical Ventilator 100 07/28/20 11:00 18 113/62 Mechanical Ventilator 100 07/28/20 10:00 19 122/61 Mechanical Ventilator 100 07/28/20 10:00 19 122/61 Mechanical Ventilator 100 07/28/20 10:00 130 19 122/61 (81) 95 07/28/20 09:28 126 112/69 07/28/20 09:00 124 20 110/66 (81) 95 07/28/20 09:00 20 110/66 Mechanical Ventilator 100 07/28/20 09:00 20 110/66 Mechanical Ventilator 100 07/28/20 08:00 120 07/28/20 08:00 Mechanical Ventilator 07/28/20 08:00 97.9 121 20 116/64 (81) 95 07/28/20 08:00 22 116/64 Mechanical Ventilator 100 07/28/20 08:00 22 116/64 Mechanical Ventilator 100 07/28/20 08:00 100 07/28/20 07:52 20 136/79 Mechanical Ventilator 100 07/28/20 07:26 122 19 100 07/28/20 07:00 120 20 114/66 (82) 94 07/28/20 06:00 19 116/63 Mechanical Ventilator 100 07/28/20 06:00 19 116/63 Mechanical Ventilator 100 07/28/20 06:00 97.7 108 18 116/63 (80) 96 07/28/20 05:45 109 18 111/65 (80) 96 07/28/20 05:30 113 19 116/62 (80) 96 07/28/20 05:19 105 17 100 100 07/28/20 05:15 127 26 154/84 (107) 86 07/28/20 05:00 101 18 112/68 (83) 96 07/28/20 05:00 19 112/68 Mechanical Ventilator 100 07/28/20 05:00 19 112/68 Mechanical Ventilator 100 07/28/20 04:45 92 18 113/69 (84) 97 07/28/20 04:30 100 18 108/69 (82) 95 07/28/20 04:15 99 19 110/68 (82) 95 07/28/20 04:00 100 07/28/20 04:00 Mechanical Ventilator 07/28/20 04:00 18 110/68 Mechanical Ventilator 100 07/28/20 04:00 18 110/68 Mechanical Ventilator 100 07/28/20 04:00 92 07/28/20 04:00 96 18 102/63 (76) 96 07/28/20 03:45 91 20 102/66 (78) 96 07/28/20 03:30 91 17 110/68 (82) 96 07/28/20 03:15 94 18 113/73 (86) 97 07/28/20 03:00 98.5 88 18 106/66 (79) 97 07/28/20 03:00 18 113/73 Mechanical Ventilator 100 07/28/20 03:00 18 113/73 Mechanical Ventilator 100 07/28/20 02:45 85 17 107/67 (80) 97 07/28/20 02:44 83 22 100 100 07/28/20 02:30 85 17 103/69 (80) 98 07/28/20 02:15 87 17 108/65 (79) 98 07/28/20 02:00 98.2 89 18 105/63 (77) 98 07/28/20 02:00 17 108/65 Mechanical Ventilator 100 07/28/20 02:00 17 108/65 Mechanical Ventilator 100 07/28/20 01:45 78 20 112/78 (89) 100 07/28/20 01:30 85 17 103/69 (80) 100 07/28/20 01:15 84 19 106/75 (85) 99 07/28/20 01:00 97.8 81 18 110/75 (87) 98 07/28/20 01:00 19 106/75 Mechanical Ventilator 100 07/28/20 01:00 19 106/75 Mechanical Ventilator 100 07/28/20 00:45 80 18 102/58 (73) 99 07/28/20 00:43 81 19 100 100 07/28/20 00:30 81 19 93/61 (72) 99 07/28/20 00:15 77 18 96/69 (78) 100 07/28/20 00:00 100 07/28/20 00:00 76 07/28/20 00:00 18 96/69 Mechanical Ventilator 100 07/28/20 00:00 18 96/69 Mechanical Ventilator 100 07/28/20 00:00 Mechanical Ventilator 07/28/20 00:00 97.2 77 18 99/67 (78) 100 07/27/20 23:45 79 16 93/68 (76) 99 07/27/20 23:30 79 17 102/72 (82) 99 07/27/20 23:15 77 18 112/78 (89) 98 07/27/20 23:00 96.5 77 20 104/74 (84) 96 07/27/20 23:00 18 112/78 Mechanical Ventilator 100 07/27/20 23:00 18 112/78 Mechanical Ventilator 100 07/27/20 22:48 79 19 100 100 07/27/20 22:45 77 19 105/73 (84) 97 07/27/20 22:30 77 17 98/70 (79) 100 07/27/20 22:15 76 17 112/68 (83) 100 07/27/20 22:00 18 112/68 Mechanical Ventilator 100 07/27/20 22:00 18 96/69 Mechanical Ventilator 100 07/27/20 22:00 96.0 74 18 114/69 (84) 100 07/27/20 21:45 75 20 103/76 (85) 95 07/27/20 21:30 76 19 110/78 (89) 94 07/27/20 21:15 95.5 87 19 117/82 (94) 94 07/27/20 21:05 32 128/85 Mechanical Ventilator 100 07/27/20 21:00 33 128/88 Mechanical Ventilator 100 07/27/20 21:00 100 27 128/88 (101) 95 07/27/20 20:45 103 27 111/90 (97) 92 07/27/20 20:39 74 128/86 07/27/20 20:30 81 18 128/86 (100) 100 07/27/20 20:30 30 128/84 Mechanical Ventilator 100 07/27/20 20:15 111 25 144/89 (107) 92 07/27/20 20:00 Mechanical Ventilator 07/27/20 20:00 32 134/89 Mechanical Ventilator 100 07/27/20 20:00 96.7 76 17 134/89 (104) 100 07/27/20 20:00 100 07/27/20 20:00 71 07/27/20 19:45 85 17 129/83 (98) 07/27/20 19:30 88 19 140/106 (117) 100 07/27/20 19:25 75 20 100 100 07/27/20 19:00 94 19 124/78 (93) 100 07/27/20 19:00 19 124/78 Mechanical Ventilator 100 07/27/20 18:30 95 18 117/73 (88) 99 07/27/20 18:00 19 114/71 Mechanical Ventilator 100 07/27/20 18:00 100 19 114/71 (85) 99 07/27/20 17:30 96 19 123/73 (90) 99 07/27/20 17:15 97 21 113/74 (87) 98 07/27/20 17:00 94 19 123/84 (97) 98 07/27/20 17:00 19 123/84 Mechanical Ventilator 100 07/27/20 16:45 95 18 121/79 (93) 07/27/20 16:45 18 121/79 Mechanical Ventilator 100 07/27/20 16:30 18 119/78 Mechanical Ventilator 100 07/27/20 16:30 95 18 119/78 (92) 98 07/27/20 16:15 94 18 120/77 (91) 99 07/27/20 16:00 Mechanical Ventilator 07/27/20 16:00 97.8 95 18 120/89 (99) 07/27/20 16:00 18 120/89 Mechanical Ventilator 100 07/27/20 16:00 18 120/89 Mechanical Ventilator 100 07/27/20 16:00 100 07/27/20 15:55 92 07/27/20 15:51 93 20 100 07/27/20 15:00 21 116/82 Mechanical Ventilator 100 07/27/20 15:00 21 116/82 Mechanical Ventilator 100 07/27/20 15:00 101 21 116/82 (93) 100 07/27/20 14:00 102 22 123/83 (96) 07/27/20 14:00 22 123/83 Mechanical Ventilator 100 07/27/20 14:00 22 123/83 Mechanical Ventilator 100 Intake and Output 07/27/20 07/28/20 19:00 07:00 Intake Total 1504.75 ml 760.5 ml Output Total 1110 ml 880 ml Balance 394.75 ml -119.5 ml IV Total 844.75 ml 100.5 ml Tube Feeding 660 ml 660 ml Output Urine Total 1110 ml 880 ml Laboratory Tests 07/28/20 04:00: White Blood Count 27.0*H, Red Blood Count 4.43, Hemoglobin 12.6, Hematocrit 39.8, Mean Corpuscular Volume 90, Mean Corpuscular Hemoglobin 28.5, Mean Corpuscular Hemoglobin Concent 31.7L, Red Cell Distribution Width 13.1, Platelet Count 215, Mean Platelet Volume 10.8H, Neutrophils (%) (Auto) , Lymphocytes (%) (Auto) , Monocytes (%) (Auto) , Eosinophils (%) (Auto) , Basophils (%) (Auto) , Differential Total Cells Counted 100, Neutrophils % (Manual) 98H, Lymphocytes % (Manual) 1L, Monocytes % (Manual) 1, Eosinophils % (Manual) 0, Basophils % (Manual) 0, Band Neutrophils 0, Platelet Estimate Adequate, Platelet Morphology Normal, Hypochromasia 1+, Sodium Level 141, Potassium Level 4.5, Chloride Level 102, Carbon Dioxide Level 32, Anion Gap 7, Blood Urea Nitrogen 50H, Creatinine 0.9, Estimat Glomerular Filtration Rate > 60, Glucose Level 309#H, Calcium Level 9.3, Phosphorus Level 3.9, Magnesium Level 2.7H, Total Bilirubin 0.3, Aspartate Amino Transf (AST/SGOT) 24, Alanine Aminotransferase (ALT/SGPT) 39, Alkaline Phosphatase 83, Lactate Dehydrogenase 445H, Total Protein 6.2L, Albumin 2.3L, Globulin 3.9, Albumin/Globulin Ratio 0.6L 07/28/20 07:44: Arterial Blood pH 7.383, Arterial Blood Partial Pressure CO2 62.6*H, Arterial Blood Partial Pressure O2 80.0, Arterial Blood HCO3 36.5H, Arterial Blood Oxygen Saturation 94.5L, Arterial Blood Base Excess 9.1*H, Timbo Test Positive Height (Feet): 5 Height (Inches): 3.00 Weight (Pounds): 162 General Appearance: no apparent distress EENT: PERRL/EOMI Neck: supple Cardiovascular: normal rate Respiratory/Chest: decreased breath sounds Abdomen: normal bowel sounds, non tender, soft Extremities: non-tender Assessment/Plan Problem List: (1) Dysphagia ICD Codes: R13.10 - Dysphagia, unspecified SNOMED: 79467416, 243668614 (2) COVID-19 virus infection ICD Codes: U07.1 - COVID-19 SNOMED: 115195235 (3) HTN (hypertension) ICD Codes: I10 - Essential (primary) hypertension SNOMED: 83584321 (4) DMII (diabetes mellitus, type 2) ICD Codes: E11.9 - Type 2 diabetes mellitus without complications SNOMED: 59672295 Status: not improved Assessment/Plan: coverage note for dr Malcolm intubated NGTF DM control asked ID dr Betts to re visit the patient will Steffen Webster MD Jul 28, 2020 13:34
--- NOTE | 2020-07-28 13:53 | Cardiology Report ---
APPROVED REPORT EXAM: Two-dimensional and M-mode echocardiogram with Doppler and color Doppler. INDICATION Atrial Fibrillation M-Mode DIMENSIONS Left Atrium (MM)1.9 (1.6-4.0cm) Aortic Root2.7 (2.0-3.7cm) Aortic Cusp Exc.1.5 (1.5-2.0cm) EPSS0.5 (>1.0cm) <Conclusion> Technically difficult and limited study due to poor acoustic windows. Study quality precludes accurate assessment of regional wall motion. M-mode measurements of left ventricle not obtainable due to cardiac position (angle). Normal left ventricular chamber size, systolic function and wall motion to extent visualized. Left ventricular ejection fraction estimated to be 65 %. There appears to be no evidence of left ventricular hypertrophy. Anterior Echo-free space, may be due to pericardial fat or effusion. All other cardiac chamber sizes are within normal limits. Focal aortic valve sclerosis with adequate cusp excursion. Thickened mitral valve leaflets with normal excursion. Mitral annulus and aortic root calcification. Pulmonic valve not well visualized. Normal tricuspid valve structure. IVC is normal in size with physiological collapse. A color flow and spectral Doppler study was performed and revealed: No aortic regurgitation. Trace mitral regurgitation. Left ventricular diastolic function could not be determined due to A-Fib. Trace tricuspid regurgitation. Tricuspid systolic velocities suggests peak right ventricular systolic pressure of 38 mmHg, consistent with mild pulmonary hypertension. Trace pulmonic regurgitation present.
--- NOTE | 2020-07-28 14:00 | NUR ---
NURSE NOTES: Continue to sleep maintained on RASS -2,no anxiety noted.
--- NOTE | 2020-07-28 14:05 | Cardiology Report ---
APPROVED REPORT EKG Measurement Heart [id number] <Conclusion> Sinus tachycardia Right atrial enlargement Nonspecific ST abnormality Abnormal ECG
[2020-07-28] MEDS: FLUCONAZOLE 400 MG/200 ML IV SCH (15:14)
--- NOTE | 2020-07-28 16:00 | NUR ---
NURSE NOTES: Bed bath given ,pulled up turned and repositioned ,kept dry and clean.
--- NOTE | 2020-07-28 16:48 | Cardiology Progress Note ---
Assessment/Plan Status: not improved Assessment/Plan 1. COVID-19 viral PNA s/p remdesivir and dexamethasone WBCs severely elevated 2. Respiratory failure 2/2 acute PNA Intubated 07/25/20 3. HFpEF acute on chronic diastolic HF with preserved EF EF 65%, per repeat echo post intubation Lasix for diuresis as needed BNP 164 4. 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 Sinus tachycardia 2/2 fever and infection Pt with worsening leukocytosis still vent dependent. In sinus rhythm, Bb for rate and rhythm control dose increased today, not on pressors. Lasix as needed per pulmonlogy recs. Subjective ROS Limited/Unobtainable: Yes Subjective Intubated and on vent, in sinus rhythm, not on pressors. Seen in ICU Objective Last 24 Hour Vital Signs Date Time Temp Pulse Resp B/P (MAP) Pulse Ox O2 Delivery O2 Flow Rate FiO2 07/28/20 15:29 117 19 100 07/28/20 15:16 119 110/59 07/28/20 12:00 Mechanical Ventilator 07/28/20 12:00 100 07/28/20 12:00 119 21 110/59 (76) 95 07/28/20 11:00 107 22 117/72 (87) 98 07/28/20 11:00 18 113/62 Mechanical Ventilator 100 07/28/20 11:00 18 113/62 Mechanical Ventilator 100 07/28/20 10:39 115 19 100 07/28/20 10:00 19 122/61 Mechanical Ventilator 100 07/28/20 10:00 19 122/61 Mechanical Ventilator 100 07/28/20 10:00 130 19 122/61 (81) 95 07/28/20 09:28 126 112/69 07/28/20 09:00 124 20 110/66 (81) 95 07/28/20 09:00 20 110/66 Mechanical Ventilator 100 07/28/20 09:00 20 110/66 Mechanical Ventilator 100 07/28/20 08:00 120 07/28/20 08:00 Mechanical Ventilator 07/28/20 08:00 97.9 121 20 116/64 (81) 95 07/28/20 08:00 22 116/64 Mechanical Ventilator 100 07/28/20 08:00 22 116/64 Mechanical Ventilator 100 07/28/20 08:00 100 07/28/20 07:52 20 136/79 Mechanical Ventilator 100 07/28/20 07:26 122 19 100 07/28/20 07:00 120 20 114/66 (82) 94 07/28/20 06:00 19 116/63 Mechanical Ventilator 100 07/28/20 06:00 19 116/63 Mechanical Ventilator 100 07/28/20 06:00 97.7 108 18 116/63 (80) 96 07/28/20 05:45 109 18 111/65 (80) 96 07/28/20 05:30 113 19 116/62 (80) 96 07/28/20 05:19 105 17 100 100 07/28/20 05:15 127 26 154/84 (107) 86 07/28/20 05:00 101 18 112/68 (83) 96 07/28/20 05:00 19 112/68 Mechanical Ventilator 100 07/28/20 05:00 19 112/68 Mechanical Ventilator 100 07/28/20 04:45 92 18 113/69 (84) 97 07/28/20 04:30 100 18 108/69 (82) 95 07/28/20 04:15 99 19 110/68 (82) 95 07/28/20 04:00 100 07/28/20 04:00 Mechanical Ventilator 07/28/20 04:00 18 110/68 Mechanical Ventilator 100 07/28/20 04:00 18 110/68 Mechanical Ventilator 100 07/28/20 04:00 92 07/28/20 04:00 96 18 102/63 (76) 96 07/28/20 03:45 91 20 102/66 (78) 96 07/28/20 03:30 91 17 110/68 (82) 96 07/28/20 03:15 94 18 113/73 (86) 97 07/28/20 03:00 98.5 88 18 106/66 (79) 97 07/28/20 03:00 18 113/73 Mechanical Ventilator 100 07/28/20 03:00 18 113/73 Mechanical Ventilator 100 07/28/20 02:45 85 17 107/67 (80) 97 07/28/20 02:44 83 22 100 100 07/28/20 02:30 85 17 103/69 (80) 98 07/28/20 02:15 87 17 108/65 (79) 98 07/28/20 02:00 98.2 89 18 105/63 (77) 98 07/28/20 02:00 17 108/65 Mechanical Ventilator 100 07/28/20 02:00 17 108/65 Mechanical Ventilator 100 07/28/20 01:45 78 20 112/78 (89) 100 07/28/20 01:30 85 17 103/69 (80) 100 07/28/20 01:15 84 19 106/75 (85) 99 07/28/20 01:00 97.8 81 18 110/75 (87) 98 07/28/20 01:00 19 106/75 Mechanical Ventilator 100 07/28/20 01:00 19 106/75 Mechanical Ventilator 100 07/28/20 00:45 80 18 102/58 (73) 99 07/28/20 00:43 81 19 100 100 07/28/20 00:30 81 19 93/61 (72) 99 07/28/20 00:15 77 18 96/69 (78) 100 07/28/20 00:00 100 07/28/20 00:00 76 07/28/20 00:00 18 96/69 Mechanical Ventilator 100 07/28/20 00:00 18 96/69 Mechanical Ventilator 100 07/28/20 00:00 Mechanical Ventilator 07/28/20 00:00 97.2 77 18 99/67 (78) 100 07/27/20 23:45 79 16 93/68 (76) 99 07/27/20 23:30 79 17 102/72 (82) 99 07/27/20 23:15 77 18 112/78 (89) 98 07/27/20 23:00 96.5 77 20 104/74 (84) 96 07/27/20 23:00 18 112/78 Mechanical Ventilator 100 07/27/20 23:00 18 112/78 Mechanical Ventilator 100 07/27/20 22:48 79 19 100 100 07/27/20 22:45 77 19 105/73 (84) 97 07/27/20 22:30 77 17 98/70 (79) 100 07/27/20 22:15 76 17 112/68 (83) 100 07/27/20 22:00 18 112/68 Mechanical Ventilator 100 07/27/20 22:00 18 96/69 Mechanical Ventilator 100 07/27/20 22:00 96.0 74 18 114/69 (84) 100 07/27/20 21:45 75 20 103/76 (85) 95 07/27/20 21:30 76 19 110/78 (89) 94 07/27/20 21:15 95.5 87 19 117/82 (94) 94 07/27/20 21:05 32 128/85 Mechanical Ventilator 100 07/27/20 21:00 33 128/88 Mechanical Ventilator 100 07/27/20 21:00 100 27 128/88 (101) 95 07/27/20 20:45 103 27 111/90 (97) 92 07/27/20 20:39 74 128/86 07/27/20 20:30 81 18 128/86 (100) 100 07/27/20 20:30 30 128/84 Mechanical Ventilator 100 07/27/20 20:15 111 25 144/89 (107) 92 07/27/20 20:00 Mechanical Ventilator 07/27/20 20:00 32 134/89 Mechanical Ventilator 100 07/27/20 20:00 96.7 76 17 134/89 (104) 100 07/27/20 20:00 100 07/27/20 20:00 71 07/27/20 19:45 85 17 129/83 (98) 07/27/20 19:30 88 19 140/106 (117) 100 07/27/20 19:25 75 20 100 100 07/27/20 19:00 94 19 124/78 (93) 100 07/27/20 19:00 19 124/78 Mechanical Ventilator 100 07/27/20 18:30 95 18 117/73 (88) 99 07/27/20 18:00 19 114/71 Mechanical Ventilator 100 07/27/20 18:00 100 19 114/71 (85) 99 07/27/20 17:30 96 19 123/73 (90) 99 07/27/20 17:15 97 21 113/74 (87) 98 07/27/20 17:00 94 19 123/84 (97) 98 07/27/20 17:00 19 123/84 Mechanical Ventilator 100 07/27/20 16:45 95 18 121/79 (93) 07/27/20 16:45 18 121/79 Mechanical Ventilator 100 07/27/20 16:30 18 119/78 Mechanical Ventilator 100 07/27/20 16:30 95 18 119/78 (92) 98 General Appearance: no apparent distress, on vent Rhythm: ST Cardiovascular: tachycardia Respiratory/Chest: no accessory muscle use Abdomen: soft Extremities: trace edema Neurologic: unresponsiveness Intake and Output 07/27/20 07/28/20 19:00 07:00 Intake Total 1504.75 ml 760.5 ml Output Total 1110 ml 880 ml Balance 394.75 ml -119.5 ml IV Total 844.75 ml 100.5 ml Tube Feeding 660 ml 660 ml Output Urine Total 1110 ml 880 ml Laboratory Tests Test 07/28/20 04:00 07/28/20 07:44 White Blood Count 27.0 K/UL (4.8-10.8) *H Red Blood Count 4.43 M/UL (4.20-5.40) Hemoglobin 12.6 G/DL (12.0-16.0) Hematocrit 39.8 % (37.0-47.0) Mean Corpuscular Volume 90 FL (80-99) Mean Corpuscular Hemoglobin 28.5 PG (27.0-31.0) Mean Corpuscular Hemoglobin Concent 31.7 G/DL (32.0-36.0) L Red Cell Distribution Width 13.1 % (11.6-14.8) Platelet Count 215 K/UL (150-450) Mean Platelet Volume 10.8 FL (6.5-10.1) H Neutrophils (%) (Auto) % (45.0-75.0) Lymphocytes (%) (Auto) % (20.0-45.0) Monocytes (%) (Auto) % (1.0-10.0) Eosinophils (%) (Auto) % (0.0-3.0) Basophils (%) (Auto) % (0.0-2.0) Differential Total Cells Counted 100 Neutrophils % (Manual) 98 % (45-75) H Lymphocytes % (Manual) 1 % (20-45) L Monocytes % (Manual) 1 % (1-10) Eosinophils % (Manual) 0 % (0-3) Basophils % (Manual) 0 % (0-2) Band Neutrophils 0 % (0-8) Platelet Estimate Adequate Platelet Morphology Normal Hypochromasia 1+ Sodium Level 141 MMOL/L (136-145) Potassium Level 4.5 MMOL/L (3.5-5.1) Chloride Level 102 MMOL/L (98-107) Carbon Dioxide Level 32 MMOL/L (21-32) Anion Gap 7 mmol/L (5-15) Blood Urea Nitrogen 50 mg/dL (7-18) H Creatinine 0.9 MG/DL (0.55-1.30) Estimat Glomerular Filtration Rate > 60 mL/min (>60) Glucose Level 309 MG/DL (74-106) #H Calcium Level 9.3 MG/DL (8.5-10.1) Phosphorus Level 3.9 MG/DL (2.5-4.9) Magnesium Level 2.7 MG/DL (1.8-2.4) H Total Bilirubin 0.3 MG/DL (0.2-1.0) Aspartate Amino Transf (AST/SGOT) 24 U/L (15-37) Alanine Aminotransferase (ALT/SGPT) 39 U/L (12-78) Alkaline Phosphatase 83 U/L (46-116) Lactate Dehydrogenase 445 U/L (81-234) H Total Protein 6.2 G/DL (6.4-8.2) L Albumin 2.3 G/DL (3.4-5.0) L Globulin 3.9 g/dL Albumin/Globulin Ratio 0.6 (1.0-2.7) L Arterial Blood pH 7.383 (7.350-7.450) Arterial Blood Partial Pressure CO2 62.6 mmHg (35.0-45.0) *H Arterial Blood Partial Pressure O2 80.0 mmHg (75.0-100.0) Arterial Blood HCO3 36.5 mmol/L (22.0-26.0) H Arterial Blood Oxygen Saturation 94.5 % (95-100) L Arterial Blood Base Excess 9.1 (-2-2) *H Timbo Test Positive Microbiology Date/Time Source Procedure Growth Status 07/25/20 17:46 Sputum Induced Gram Stain - Final Complete 07/25/20 17:46 Sputum Induced Sputum Culture - Final NO GROWTH AFTER 48 HOURS Complete Blanca Lobato PA-C Jul 28, 2020 16:48
--- NOTE | 2020-07-28 19:20 | NUR ---
Received report from LIANA Dickens and assumed care of patient.
--- NOTE | 2020-07-28 19:20 | NUR ---
NURSE HAND-OFF REPORT: Latest Vital Signs: Temperature 97.9 , Pulse 127 , B/P 110 /60 , Respiratory Rate 23 , O2 SAT 96 , Mechanical Ventilator, O2 Flow Rate . Vital Sign Comment: stable EKG Rhythm: Sinus Tachycardia Rhythm change?: N MD Notified?: N - MD Response: Latest Plaza Fall Score: 35 Fall Risk: Medium Risk Safety Measures: Call light Within Reach, Bed Alarm Zone 3, Side Rails Side Rails x2, Bed position Low and Locked. Fall Precautions: Yellow Socks Yellow Gown Door Sign Patient Fall Education Report given to Jacki mann RN.
[2020-07-28] MEDS: Dyna-Hex 2% Top Sol 2oz TOPIC SCH (20:43)
--- NOTE | 2020-07-28 22:30 | NUR ---
Pt repositioned, oral care provided, and appears comfortable at a RASS -2. VSS, will continue to monitor the patient.
[2020-07-29] VITALS (68 sets, daily range): BP systolic 61–134; BP diastolic 36–87
--- NOTE | 2020-07-29 | NUR ---
Midnight assessment complete. Pt febrile at 102.4 via axillary. Tylenol 650mg administered via OGT and ice packs placed to B armpits and B back of knees to help reduce temp. Cool cloth also placed to B feet and head. Will continue to monitor the patient for reduced temperature. See assessment intervention for details. All other VSS, remains tachycardic.
--- NOTE | 2020-07-29 02:07 | NUR ---
Pt remains stable. Persistent slight tachycardia. Temperature has decreased to 99.6 orally. Ice packs remain in place and will continue to monitor closely. Pt repositioned and oral care provided to patient.
[2020-07-29 04:20] LABS: HEMATOCRIT 34.6 % (37.0-47.0); HEMOGLOBIN 10.8 G/DL (12.0-16.0); MEAN CORPUSCULAR VOLUME 93 FL (80-99); PLATELET COUNT 196 K/UL (150-450); RED BLOOD COUNT 3.74 M/UL (4.20-5.40); RED CELL DISTRIBUTION WIDTH 13.9 % (11.6-14.8)
--- NOTE | 2020-07-29 04:20 | NUR ---
0400 assessment complete. Pt continues to have rales/rhonchi throughout B lungs. Pt now afebrile with temp @98.5F orally. Ice packs removed from patient. Will monitor temp closely. VSS, pt remains slightly tachycardic. Suctioned yellow secretions from endotracheal suction catheter, provided oral care, repositioned patient. Patient in NAD.
[2020-07-29 04:22] LABS: WHITE BLOOD COUNT 25.7 K/UL (4.8-10.8)
[2020-07-29 04:40] LABS: ALBUMIN 1.9 G/DL (3.4-5.0); ALBUMIN/GLOBULIN RATIO 0.5 (1.0-2.7); BILIRUBIN,TOTAL 0.2 MG/DL (0.2-1.0); CALCIUM 8.8 MG/DL (8.5-10.1); CREATININE 1.1 MG/DL (0.55-1.30); POTASSIUM 5.8 MMOL/L (3.5-5.1)
--- NOTE | 2020-07-29 05:14 | NUR ---
RD ASSESSMENT & RECOMMENDATIONS SEE CARE ACTIVITY FOR COMPLETE ASSESSMENT DAILY ESTIMATED NEEDS: Needs based on Critical care, DM, pulmonary/ 57.6kg abw 22-28 kcals/kg [id number] total kcals 1.2-2 g protein/kg 69-115 g total protein Fluid per MD, on lasix NUTRITION DIAGNOSIS: Altered nutrition related lab values R/T diabetes and steroidal med as evidenced by A1C 6.9 w/ elev POC (300's), now on solumedrol. CURRENT TF:Glucerna 1.2 @ 55ml/hr x 24 hrs ENTERAL NUTRITION RECOMMENDATIONS: Glucerna 1.2 g @ 55ml/hr x24 hrs to provide 1320ml, 1584 kcal, 79g pro, 1063ml free H2O - Maintain current TF - Flush per MD - HOB over 30 degrees ADDITIONAL RECOMMENDATIONS: * Calibrated bedscale wt * Monitor lytes, replete as needed * Monitor BGs closely w/ Solumderol, need to further increase Levemir -> POC glu in the 300's * Feed w/ hemodynamic stability .
[2020-07-29] MEDS: Solu-MEDROL 40mg Inj IVP SCH ×3 (05:35→17:37)
[2020-07-29] MEDS: NovoLOG Insulin Flexpen SUBQ SCH ×3 (06:00→17:38)
--- NOTE | 2020-07-29 06:05 | NUR ---
Pt remains in NAD and stable. No BM this shift. Pt afebrile at this time. Oral care provided and pt repositioned. Will continue to monitor.
--- NOTE | 2020-07-29 07:07 | NUR ---
Report given to Marcell who assumed care of patient.
--- NOTE | 2020-07-29 08:41 | Diagnostic Imaging Report ---
EXAM: XR Chest, 1 View CLINICAL HISTORY: ABN CHST TECHNIQUE: Frontal view of the chest. COMPARISON: 07/26/2020 FINDINGS: Lungs: Continued bilateral airspace disease greater in the left lung. Pleural space: Unremarkable. No pneumothorax. Heart: No cardiomegaly. Mediastinum: Unremarkable. Bones/joints: No acute osseous abnormality. Tubes, lines and devices: ET tube 1.5 cm above the yareli. Enteric tube coursing into the stomach. IMPRESSION: 1. ET tube 1.5 cm above the yareli. Ideally, this should be retracted at least 0.5 cm. 2. Continued bilateral airspace disease greater in the left lung.
[2020-07-29] MEDS: Docusate 100mg/10ml Liq NG SCH ×3 (09:01→17:38)
[2020-07-29] MEDS: Cefepime HCl 2 GM in D5W 55 ML IVPB SCH ×2 (09:04→20:57)
[2020-07-29] MEDS: Enoxaparin 80mg Inj SUBQ SCH ×2 (09:04→20:57)
[2020-07-29] MEDS: Versed 100mg/NS 200ml 200 ML IV PRN (09:07)
[2020-07-29] MEDS: Levemir Flexpen SUBQ SCH ×2 (09:30→20:58)
--- NOTE | 2020-07-29 11:13 | Pulmonology Progress Note ---
Subjective ROS Limited/Unobtainable: Yes Interval Events: S/p intubation Constitutional: Reports: no symptoms HEENT: Repors: no symptoms Respiratory: Reports: shortness of breath Gastrointestinal/Abdominal: Reports: no symptoms Psychiatric: Reports: no symptoms Skin: Reports: no symptoms Musculoskeletal: Reports: no symptoms Allergies: Coded Allergies: No Known Allergies (Unverified , 07/07/20) Objective Last 24 Hour Vital Signs Date Time Temp Pulse Resp B/P (MAP) Pulse Ox O2 Delivery O2 Flow Rate FiO2 07/29/20 10:30 96 18 101/61 (74) 92 07/29/20 10:00 91 18 98/55 (69) 94 07/29/20 09:30 93 19 99/52 (68) 94 07/29/20 09:07 17 106/65 Endotracheal Tube 100 07/29/20 09:01 105 106/65 07/29/20 09:00 93 17 98/55 (69) 96 07/29/20 08:30 106 18 103/59 (74) 96 07/29/20 08:00 92 07/29/20 08:00 17 105/64 Endotracheal Tube 100 07/29/20 08:00 17 105/64 Endotracheal Tube 100 07/29/20 08:00 100 07/29/20 08:00 Mechanical Ventilator 07/29/20 08:00 98.2 106 17 105/64 (78) 95 07/29/20 07:30 111 19 110/64 (79) 91 07/29/20 07:00 17 108/64 Endotracheal Tube 100 07/29/20 07:00 17 108/64 Endotracheal Tube 100 07/29/20 07:00 107 17 108/64 (79) 92 07/29/20 06:00 102 17 100/57 (71) 93 07/29/20 06:00 17 102/67 Mechanical Ventilator 100 07/29/20 06:00 17 102/67 Mechanical Ventilator 100 07/29/20 05:45 96 16 95/62 (73) 94 07/29/20 05:30 98 16 100/62 (75) 95 07/29/20 05:15 101 17 102/62 (75) 95 07/29/20 05:00 17 95/62 Mechanical Ventilator 100 07/29/20 05:00 17 95/62 Mechanical Ventilator 100 07/29/20 05:00 102 18 103/61 (75) 95 07/29/20 04:57 112 19 100 07/29/20 04:45 103 17 109/64 (79) 96 07/29/20 04:30 98.5 106 27 100/62 (75) 95 07/29/20 04:15 104 24 96/57 (70) 96 07/29/20 04:00 100 07/29/20 04:00 105 07/29/20 04:00 17 109/64 Mechanical Ventilator 100 07/29/20 04:00 17 109/64 Mechanical Ventilator 100 07/29/20 04:00 Mechanical Ventilator 07/29/20 04:00 102 18 99/53 (68) 96 07/29/20 03:45 103 16 96/55 (69) 97 07/29/20 03:30 102 16 95/57 (70) 96 07/29/20 03:15 102 19 96/56 (69) 95 07/29/20 03:04 105 18 100 07/29/20 03:00 17 95/67 Mechanical Ventilator 100 07/29/20 03:00 17 95/67 Mechanical Ventilator 100 07/29/20 03:00 108 14 103/58 (73) 96 07/29/20 02:45 109 16 106/58 (74) 95 07/29/20 02:30 108 15 101/60 (74) 96 07/29/20 02:15 109 16 107/64 (78) 96 07/29/20 02:00 99.6 110 16 105/64 (78) 95 07/29/20 02:00 17 105/64 Mechanical Ventilator 100 07/29/20 02:00 17 105/64 Mechanical Ventilator 100 07/29/20 01:45 110 17 104/60 (75) 96 07/29/20 01:43 110 18 100 07/29/20 01:30 113 18 116/60 (78) 96 07/29/20 01:15 112 18 113/64 (80) 95 07/29/20 01:00 112 19 105/55 (72) 95 07/29/20 01:00 17 105/55 Mechanical Ventilator 100 07/29/20 01:00 17 105/55 Mechanical Ventilator 100 07/29/20 00:45 111 17 99/56 (70) 96 07/29/20 00:30 102.0 110 17 102/56 (71) 96 07/29/20 00:25 102.0 07/29/20 00:15 112 18 103/52 (69) 97 07/29/20 00:00 100 07/29/20 00:00 Mechanical Ventilator 07/29/20 00:00 102.4 111 17 121/62 (81) 96 07/29/20 00:00 17 102/56 Mechanical Ventilator 100 07/29/20 00:00 17 112/61 Mechanical Ventilator 100 07/29/20 00:00 109 07/28/20 23:45 115 19 115/65 (82) 96 07/28/20 23:30 110 18 111/60 (77) 96 07/28/20 23:30 110 18 100 07/28/20 23:22 17 112/61 Mechanical Ventilator 100 07/28/20 23:15 108 19 112/61 (78) 96 07/28/20 23:00 21 112/61 Mechanical Ventilator 100 07/28/20 23:00 108 20 112/62 (79) 96 07/28/20 22:45 107 20 112/64 (80) 96 07/28/20 22:30 104 19 108/61 (77) 97 07/28/20 22:15 104 20 105/63 (77) 96 07/28/20 22:00 20 105/60 Mechanical Ventilator 100 07/28/20 22:00 21 105/60 Mechanical Ventilator 100 07/28/20 22:00 105 20 105/60 (75) 96 07/28/20 21:45 107 21 108/61 (77) 96 07/28/20 21:40 109 21 100 07/28/20 21:30 109 20 113/60 (77) 96 07/28/20 21:15 112 19 113/67 (82) 97 07/28/20 21:00 20 90/75 Mechanical Ventilator 100 07/28/20 21:00 20 90/75 Mechanical Ventilator 100 07/28/20 21:00 133 24 90/75 (80) 94 07/28/20 20:45 118 20 113/62 (79) 96 07/28/20 20:42 119 143/73 07/28/20 20:30 127 23 143/73 (96) 95 07/28/20 20:15 117 21 118/62 (80) 95 07/28/20 20:00 115 07/28/20 20:00 21 121/65 Mechanical Ventilator 100 07/28/20 20:00 21 121/65 Mechanical Ventilator 100 07/28/20 20:00 Mechanical Ventilator 07/28/20 20:00 99.6 118 21 121/65 (83) 95 07/28/20 19:59 127 23 100 07/28/20 19:45 127 23 150/81 (104) 93 07/28/20 19:30 19 115/66 Mechanical Ventilator 100 07/28/20 19:30 19 115/66 Mechanical Ventilator 100 07/28/20 19:30 115 19 115/66 (82) 96 07/28/20 19:15 114 21 113/62 (79) 96 07/28/20 19:00 115 21 113/58 (76) 96 07/28/20 19:00 21 113/62 Mechanical Ventilator 100 07/28/20 19:00 21 113/62 Mechanical Ventilator 100 07/28/20 18:02 112 22 110/60 (77) 96 07/28/20 18:00 22 110/60 Mechanical Ventilator 100 07/28/20 18:00 22 110/60 Mechanical Ventilator 100 07/28/20 17:00 111 20 110/62 (78) 96 07/28/20 17:00 21 115/65 Mechanical Ventilator 100 07/28/20 17:00 21 115/69 Mechanical Ventilator 100 07/28/20 16:00 116 07/28/20 16:00 109 21 110/62 (78) 96 07/28/20 16:00 21 110/62 Mechanical Ventilator 50 07/28/20 16:00 21 110/62 Mechanical Ventilator 100 07/28/20 16:00 Mechanical Ventilator 07/28/20 16:00 100 07/28/20 15:29 117 19 100 07/28/20 15:16 119 110/59 07/28/20 15:00 136 24 126/64 (84) 95 07/28/20 15:00 24 126/64 Mechanical Ventilator 50 07/28/20 15:00 24 126/64 Mechanical Ventilator 50 07/28/20 14:00 21 121/65 Mechanical Ventilator 100 07/28/20 14:00 21 121/65 Mechanical Ventilator 100 07/28/20 14:00 122 21 121/65 (83) 96 07/28/20 13:00 119 21 119/65 (83) 95 07/28/20 13:00 21 119/65 Mechanical Ventilator 100 07/28/20 13:00 21 119/65 Mechanical Ventilator 50 07/28/20 12:30 121 21 120/65 (83) 96 07/28/20 12:15 113 20 112/66 (81) 96 07/28/20 12:01 100 07/28/20 12:00 120 07/28/20 12:00 114 19 115/64 (81) 96 07/28/20 12:00 19 115/64 Mechanical Ventilator 100 07/28/20 12:00 19 115/64 Mechanical Ventilator 100 07/28/20 12:00 Mechanical Ventilator 07/28/20 12:00 119 21 110/59 (76) 95 Intake and Output 07/28/20 07/29/20 19:00 07:00 Intake Total 1064.9 ml 1113.8 ml Output Total 520 ml 705 ml Balance 544.9 ml 408.8 ml Free Water 200 ml 225 ml IV Total 144.9 ml 228.8 ml Tube Feeding 660 ml 660 ml Other 60 ml Output Urine Total 520 ml 705 ml General Appearance: no acute distress HEENT: normocephalic Respiratory: decreased breath sounds Cardiovascular: normal peripheral pulses Abdomen: normal bowel sounds Laboratory Tests 07/28/20 18:15: D-Dimer 2.92H, Pro-B-Type Natriuretic Peptide 251H 07/28/20 18:17: POC Whole Blood Glucose 334H 07/28/20 22:20: Vancomycin Level Trough 17.3H 07/29/20 03:35: White Blood Count 25.7*H, Red Blood Count 3.74L, Hemoglobin 10.8L, Hematocrit 34.6L, Mean Corpuscular Volume 93, Mean Corpuscular Hemoglobin 28.8, Mean Corpuscular Hemoglobin Concent 31.2L, Red Cell Distribution Width 13.9, Platelet Count 196, Mean Platelet Volume 11.4H, Neutrophils (%) (Auto) , Lymphocytes (%) (Auto) , Monocytes (%) (Auto) , Eosinophils (%) (Auto) , Basophils (%) (Auto) , Differential Total Cells Counted 100, Neutrophils % (Manual) 97H, Lymphocytes % (Manual) 1L, Monocytes % (Manual) 2, Eosinophils % (Manual) 0, Basophils % (Manual) 0, Band Neutrophils 0, Platelet Estimate Adequate, Platelet Morphology Normal, Hypochromasia 1+, Sodium Level 145, Potassium Level 5.8H, Chloride Level 110H, Carbon Dioxide Level 32, Anion Gap 3L, Blood Urea Nitrogen 54H, Creatinine 1.1, Estimat Glomerular Filtration Rate 50.2, Glucose Level 350H, Calcium Level 8.8, Total Bilirubin 0.2, Aspartate Amino Transf (AST/SGOT) 18, Alanine Aminotransferase (ALT/SGPT) 29, Alkaline Phosphatase 75, Total Protein 5.4L, Albumin 1.9L, Globulin 3.5, Albumin/Globulin Ratio 0.5L 07/29/20 07:43: Arterial Blood pH 7.353, Arterial Blood Partial Pressure CO2 56.6*H, Arterial Blood Partial Pressure O2 61.7L, Arterial Blood HCO3 30.8H, Arterial Blood Oxygen Saturation 89.2*L, Arterial Blood Base Excess 4H, Timbo Test Positive Current Medications Medications (Trade) Dose Ordered Sig/Marian Route PRN Reason Start Time Stop Time Status Last Admin Dose Admin Acetaminophen (Tylenol) 650 mg Q4H PRN RECTAL Temp >100.5 07/18/20 18:30 08/17/20 18:29 07/18/20 18:40 Acetaminophen (Tylenol) 650 mg Q6H PRN ORAL For Pain 07/07/20 15:45 08/06/20 15:44 07/16/20 09:45 Acetaminophen (Tylenol) 650 mg Q6H PRN ORAL FEVER 07/07/20 16:15 08/06/20 16:14 07/28/20 23:51 Benzonatate (Tessalon Perles) 100 mg TIDPRN PRN ORAL For Cough 07/18/20 18:30 08/17/20 18:29 Cefepime HCl 2 gm/ Dextrose 55 ml @ 110 mls/hr Q12HR IVPB 07/22/20 13:00 08/04/20 14:00 07/29/20 09:04 Chlorhexidine Gluconate (Rafaela-Hex 2%) 1 applic DAILY@2000 TOPIC 07/25/20 20:00 10/23/20 19:59 07/28/20 20:43 Dextrose (Dextrose 50%) 25 ml Q30M PRN IV Hypoglycemia 07/07/20 15:45 10/05/20 15:44 Dextrose (Dextrose 50%) 50 ml Q30M PRN IV Hypoglycemia 07/07/20 15:45 10/05/20 15:44 Docusate Sodium (Colace) 100 mg EVERY 12 HOURS NG 07/27/20 21:00 08/25/20 17:59 07/29/20 09:01 Enoxaparin Sodium (Lovenox) 70 mg EVERY 12 HOURS SUBQ 07/25/20 21:00 10/23/20 20:59 07/29/20 09:04 Famotidine (Pepcid I.v.) 20 mg Q12HR IVP 07/20/20 09:00 08/19/20 08:59 07/29/20 09:01 Fentanyl Citrate 1000 mcg/Sodium Chloride 130 ml @ 0 mls/hr Q24H PRN IV SEDATION 07/27/20 21:00 07/29/20 20:59 07/28/20 23:22 Fluconazole/ Sodium Chloride 200 ml @ 100 mls/hr Q24H IV 07/22/20 14:00 08/04/20 13:59 07/28/20 15:14 Insulin Aspart (NovoLOG) Q6HR SUBQ 07/26/20 12:00 10/24/20 11:59 07/29/20 06:00 Insulin Detemir (Levemir) 20 units Q12HR SUBQ 07/28/20 21:00 10/24/20 10:29 07/29/20 09:30 Methylprednisolone Sodium Succinate (Solu-MEDROL) 20 mg EVERY 6 HOURS IVP 07/22/20 12:00 10/19/20 08:59 07/29/20 05:35 Metoprolol Tartrate (Lopressor) 25 mg EVERY 12 HOURS NG 07/26/20 21:00 10/24/20 20:59 07/29/20 09:01 Metoprolol Tartrate (Lopressor) 25 mg ONCE ORAL 07/28/20 15:00 10/26/20 14:59 07/28/20 15:16 Midazolam HCl 200 ml @ 0 mls/hr Q24H PRN IV To Patient Comfort 07/27/20 21:00 07/29/20 20:59 07/29/20 09:07 Norepinephrine Bitartrate 4 mg/ Dextrose 250 ml @ 0 mls/hr Q24H PRN IV For hypotension 07/27/20 17:00 07/29/20 20:29 Potassium Chloride (K-Dur) 20 meq EVERY 12 HOURS GT 07/27/20 21:00 10/24/20 17:59 07/28/20 20:42 Vancomycin HCl ([facility] pharmacy to dose) 1 ea DAILY PRN MISC Per rx protocol 07/27/20 10:00 08/26/20 09:59 Vancomycin HCl 750 mg/Sodium Chloride 275 ml @ 183.333 mls/hr Q12HR@1100,2300 IVPB 07/27/20 23:00 08/01/20 22:59 07/28/20 23:15 Assessment/Plan Assessment/Plan 1. COVID-19 pneumonia. - COVID-19 PCR positive (07/07) -> continue isolation - s/p remdexsivir - s/p azithromycin - CXR (07/13) no significant change 2. Hypoxemic respiratory distress - s/p decadron (07/08-07/17) - now on Solu-Medrol - intubated; on AC mode - FiO2 100%; will increase PEEP 7->8 -> 10 -attempt proning 3. Hypertension. 4. Diabetes mellitus. -on insulin sliding scale 5. DVT ppx - on Lovenox, full dose empirically 6. Sputum Cx shows pseudomonas and cony - on Abx 7. Suspect bacterial infection given leukocytosis - ordered fungal culture, BCx (07/20) - on empiric Diflucan; WBC continues to be high - On Cefepime - also on IV Vanco - added IV Bactrim for possible PJP 8. Pulmonary edema -Off lasix gtt - CXR improved Discussed with bedside RN. Discussed with family On IV vanco ( WBC higher) On Vu Pierre MD Jul 29, 2020 11:13
[2020-07-29] MEDS: Vancomycin 750mg/NS 275ml IVPB SCH ×2 (11:38)
[2020-07-29] MEDS ORDERED: Sodium Polystyrene Sulfonate 15gm Powder NG SCH (13:00)
--- NOTE | 2020-07-29 13:37 | Nephrology Progress Note ---
Assessment/Plan Problem List: (1) Hyponatremia (2) Hypoxia (3) Pneumonitis (4) Acute respiratory failure due to COVID-19 (5) DMII (diabetes mellitus, type 2) (6) HTN (hypertension) Assessment Hyponatremia, improved with saline infusion COVID-19 infection Pneumonia, acute respiratory failure, hypoxia Diabetes mellitus Hypertension Plan July 29 labs reviewed. Serum potassium elevated. Potassium supplement was put on hold on 1 dose of Kayexalate given. Levemir dose increased. Continue to monitor renal parameters. Patient remains on 100% FiO2 on ventilator. July 28: Labs reviewed. Renal parameters stable. Remains full code. Blood sugar remains high. Levemir dose increased. Not much to add from renal standpoint of view. FiO2 now is 100%. July 27: Labs reviewed. Renal parameters stable. Low potassium addressed. FiO2 70%. Blood sugar elevated. Levemir dose is being adjusted. Continue per consultants. July 26: Labs reviewed. Renal parameters stable. Patient now intubated on ventilator in ICU. Blood sugar elevated. Levemir added. Will watch electrolytes. Main management per rejoiner and ID. July 25: Labs reviewed. Renal parameters stable. Continue per consultants. July 24: Labs reviewed. Renal parameters stable. Continue per pulmonary. Medication list reviewed. July 23: No labs drawn today. Medication list reviewed. Continue per senior science consultant. Patient full code. July 22: Labs reviewed. Stable renal parameters. Continue per consultants. July 21: No CHEM panel drawn today. Stable from renal standpoint of view. Blood pressure stable. July 20: IV changed to D5W 50 cc an hour. Renal parameters stable. Continue per consultants. July 19: Pulmonary status remains unstable. Stable from renal standpoint of view. July 18: Labs reviewed. Stable renal parameters and electrolytes. Continue per consultants. July 17: No labs drawn today. Remains stable from renal standpoint today. July 16: No labs drawn today. Continue per consultants. Stable from renal standpoint of view. July 15: Labs reviewed. Renal parameters stable. July 14: No labs from today. Continue per current management. Check labs tomorrow. July 13: No labs drawn today. Stable from renal standpoint of view. July 12: Today's labs pending. Medication list reviewed. Continue per current management and consultants. July 11: Labs reviewed. Renal parameters stable. July 10: Labs reviewed. Renal parameters electrolytes stable. Continue per consultants. July 09: Labs reviewed. Renal parameters and electrolytes stable. Continue per ID and pulmonary. Subjective ROS Limited/Unobtainable: Yes Objective Objective Last 24 Hour Vital Signs Date Time Temp Pulse Resp B/P (MAP) Pulse Ox O2 Delivery O2 Flow Rate FiO2 07/29/20 13:00 112 22 102/58 (73) 95 07/29/20 12:30 107 21 99/57 (71) 96 07/29/20 12:00 98.7 100 20 94/55 (68) 95 07/29/20 12:00 100 07/29/20 12:00 Mechanical Ventilator 07/29/20 11:00 103 27 99/58 (72) 93 07/29/20 10:30 96 18 101/61 (74) 92 07/29/20 10:00 91 18 98/55 (69) 94 07/29/20 09:30 93 19 99/52 (68) 94 07/29/20 09:07 17 106/65 Endotracheal Tube 100 07/29/20 09:01 105 106/65 07/29/20 09:00 93 17 98/55 (69) 96 07/29/20 08:30 106 18 103/59 (74) 96 07/29/20 08:00 92 07/29/20 08:00 17 105/64 Endotracheal Tube 100 07/29/20 08:00 17 105/64 Endotracheal Tube 100 07/29/20 08:00 100 07/29/20 08:00 Mechanical Ventilator 07/29/20 08:00 98.2 106 17 105/64 (78) 95 07/29/20 07:30 111 19 110/64 (79) 91 07/29/20 07:00 17 108/64 Endotracheal Tube 100 07/29/20 07:00 17 108/64 Endotracheal Tube 100 07/29/20 07:00 107 17 108/64 (79) 92 07/29/20 06:00 102 17 100/57 (71) 93 07/29/20 06:00 17 102/67 Mechanical Ventilator 100 07/29/20 06:00 17 102/67 Mechanical Ventilator 100 07/29/20 05:45 96 16 95/62 (73) 94 07/29/20 05:30 98 16 100/62 (75) 95 07/29/20 05:15 101 17 102/62 (75) 95 07/29/20 05:00 17 95/62 Mechanical Ventilator 100 07/29/20 05:00 17 95/62 Mechanical Ventilator 100 07/29/20 05:00 102 18 103/61 (75) 95 07/29/20 04:57 112 19 100 07/29/20 04:45 103 17 109/64 (79) 96 07/29/20 04:30 98.5 106 27 100/62 (75) 95 07/29/20 04:15 104 24 96/57 (70) 96 07/29/20 04:00 100 07/29/20 04:00 105 07/29/20 04:00 17 109/64 Mechanical Ventilator 100 07/29/20 04:00 17 109/64 Mechanical Ventilator 100 07/29/20 04:00 Mechanical Ventilator 07/29/20 04:00 102 18 99/53 (68) 96 07/29/20 03:45 103 16 96/55 (69) 97 07/29/20 03:30 102 16 95/57 (70) 96 07/29/20 03:15 102 19 96/56 (69) 95 07/29/20 03:04 105 18 100 07/29/20 03:00 17 95/67 Mechanical Ventilator 100 07/29/20 03:00 17 95/67 Mechanical Ventilator 100 07/29/20 03:00 108 14 103/58 (73) 96 07/29/20 02:45 109 16 106/58 (74) 95 07/29/20 02:30 108 15 101/60 (74) 96 07/29/20 02:15 109 16 107/64 (78) 96 07/29/20 02:00 99.6 110 16 105/64 (78) 95 07/29/20 02:00 17 105/64 Mechanical Ventilator 100 07/29/20 02:00 17 105/64 Mechanical Ventilator 100 07/29/20 01:45 110 17 104/60 (75) 96 07/29/20 01:43 110 18 100 07/29/20 01:30 113 18 116/60 (78) 96 07/29/20 01:15 112 18 113/64 (80) 95 07/29/20 01:00 112 19 105/55 (72) 95 07/29/20 01:00 17 105/55 Mechanical Ventilator 100 07/29/20 01:00 17 105/55 Mechanical Ventilator 100 07/29/20 00:45 111 17 99/56 (70) 96 07/29/20 00:30 102.0 110 17 102/56 (71) 96 07/29/20 00:25 102.0 07/29/20 00:15 112 18 103/52 (69) 97 07/29/20 00:00 100 07/29/20 00:00 Mechanical Ventilator 07/29/20 00:00 102.4 111 17 121/62 (81) 96 07/29/20 00:00 17 102/56 Mechanical Ventilator 100 07/29/20 00:00 17 112/61 Mechanical Ventilator 100 07/29/20 00:00 109 07/28/20 23:45 115 19 115/65 (82) 96 07/28/20 23:30 110 18 111/60 (77) 96 07/28/20 23:30 110 18 100 07/28/20 23:22 17 112/61 Mechanical Ventilator 100 07/28/20 23:15 108 19 112/61 (78) 96 07/28/20 23:00 21 112/61 Mechanical Ventilator 100 07/28/20 23:00 108 20 112/62 (79) 96 07/28/20 22:45 107 20 112/64 (80) 96 07/28/20 22:30 104 19 108/61 (77) 97 07/28/20 22:15 104 20 105/63 (77) 96 07/28/20 22:00 20 105/60 Mechanical Ventilator 100 07/28/20 22:00 21 105/60 Mechanical Ventilator 100 07/28/20 22:00 105 20 105/60 (75) 96 07/28/20 21:45 107 21 108/61 (77) 96 07/28/20 21:40 109 21 100 07/28/20 21:30 109 20 113/60 (77) 96 07/28/20 21:15 112 19 113/67 (82) 97 07/28/20 21:00 20 90/75 Mechanical Ventilator 100 07/28/20 21:00 20 90/75 Mechanical Ventilator 100 07/28/20 21:00 133 24 90/75 (80) 94 07/28/20 20:45 118 20 113/62 (79) 96 07/28/20 20:42 119 143/73 07/28/20 20:30 127 23 143/73 (96) 95 07/28/20 20:15 117 21 118/62 (80) 95 07/28/20 20:00 115 07/28/20 20:00 21 121/65 Mechanical Ventilator 100 07/28/20 20:00 21 121/65 Mechanical Ventilator 100 07/28/20 20:00 Mechanical Ventilator 07/28/20 20:00 99.6 118 21 121/65 (83) 95 07/28/20 19:59 127 23 100 07/28/20 19:45 127 23 150/81 (104) 93 07/28/20 19:30 19 115/66 Mechanical Ventilator 100 07/28/20 19:30 19 115/66 Mechanical Ventilator 100 07/28/20 19:30 115 19 115/66 (82) 96 07/28/20 19:15 114 21 113/62 (79) 96 07/28/20 19:00 115 21 113/58 (76) 96 07/28/20 19:00 21 113/62 Mechanical Ventilator 100 07/28/20 19:00 21 113/62 Mechanical Ventilator 100 07/28/20 18:02 112 22 110/60 (77) 96 07/28/20 18:00 22 110/60 Mechanical Ventilator 100 07/28/20 18:00 22 110/60 Mechanical Ventilator 100 07/28/20 17:00 111 20 110/62 (78) 96 07/28/20 17:00 21 115/65 Mechanical Ventilator 100 07/28/20 17:00 21 115/69 Mechanical Ventilator 100 07/28/20 16:00 116 07/28/20 16:00 109 21 110/62 (78) 96 07/28/20 16:00 21 110/62 Mechanical Ventilator 50 07/28/20 16:00 21 110/62 Mechanical Ventilator 100 07/28/20 16:00 Mechanical Ventilator 07/28/20 16:00 100 07/28/20 15:29 117 19 100 07/28/20 15:16 119 110/59 07/28/20 15:00 136 24 126/64 (84) 95 07/28/20 15:00 24 126/64 Mechanical Ventilator 50 07/28/20 15:00 24 126/64 Mechanical Ventilator 50 07/28/20 14:00 21 121/65 Mechanical Ventilator 100 07/28/20 14:00 21 121/65 Mechanical Ventilator 100 07/28/20 14:00 122 21 121/65 (83) 96 Intake and Output 07/28/20 07/29/20 19:00 07:00 Intake Total 1064.9 ml 1113.8 ml Output Total 520 ml 705 ml Balance 544.9 ml 408.8 ml Free Water 200 ml 225 ml IV Total 144.9 ml 228.8 ml Tube Feeding 660 ml 660 ml Other 60 ml Output Urine Total 520 ml 705 ml Current Medications Medications (Trade) Dose Ordered Sig/Marian Route PRN Reason Start Time Stop Time Status Last Admin Dose Admin Acetaminophen (Tylenol) 650 mg Q4H PRN RECTAL Temp >100.5 07/18/20 18:30 08/17/20 18:29 07/18/20 18:40 Acetaminophen (Tylenol) 650 mg Q6H PRN ORAL For Pain 07/07/20 15:45 08/06/20 15:44 07/16/20 09:45 Acetaminophen (Tylenol) 650 mg Q6H PRN ORAL FEVER 07/07/20 16:15 08/06/20 16:14 07/28/20 23:51 Benzonatate (Tessalon Perles) 100 mg TIDPRN PRN ORAL For Cough 07/18/20 18:30 08/17/20 18:29 Cefepime HCl 2 gm/ Dextrose 55 ml @ 110 mls/hr Q12HR IVPB 07/22/20 13:00 08/04/20 14:00 07/29/20 09:04 Chlorhexidine Gluconate (Rafaela-Hex 2%) 1 applic DAILY@2000 TOPIC 07/25/20 20:00 10/23/20 19:59 07/28/20 20:43 Dextrose (Dextrose 50%) 25 ml Q30M PRN IV Hypoglycemia 07/07/20 15:45 10/05/20 15:44 Dextrose (Dextrose 50%) 50 ml Q30M PRN IV Hypoglycemia 07/07/20 15:45 10/05/20 15:44 Docusate Sodium (Colace) 100 mg TID NG 07/29/20 13:00 08/25/20 17:59 07/29/20 12:47 Enoxaparin Sodium (Lovenox) 70 mg EVERY 12 HOURS SUBQ 07/25/20 21:00 10/23/20 20:59 07/29/20 09:04 Famotidine (Pepcid I.v.) 20 mg Q12HR IVP 07/20/20 09:00 08/19/20 08:59 07/29/20 09:01 Fentanyl Citrate 1000 mcg/Sodium Chloride 130 ml @ 0 mls/hr Q24H PRN IV SEDATION 07/27/20 21:00 07/29/20 20:59 07/28/20 23:22 Fluconazole/ Sodium Chloride 200 ml @ 100 mls/hr Q24H IV 07/22/20 14:00 08/04/20 13:59 07/28/20 15:14 Insulin Aspart (NovoLOG) Q6HR SUBQ 07/26/20 12:00 10/24/20 11:59 07/29/20 12:12 Insulin Detemir (Levemir) 25 units Q12HR SUBQ 07/29/20 21:00 10/24/20 10:29 Methylprednisolone Sodium Succinate (Solu-MEDROL) 20 mg EVERY 6 HOURS IVP 07/22/20 12:00 10/19/20 08:59 07/29/20 11:39 Metoprolol Tartrate (Lopressor) 25 mg EVERY 12 HOURS NG 07/26/20 21:00 10/24/20 20:59 07/29/20 09:01 Metoprolol Tartrate (Lopressor) 25 mg ONCE ORAL 07/28/20 15:00 10/26/20 14:59 07/28/20 15:16 Midazolam HCl 200 ml @ 0 mls/hr Q24H PRN IV To Patient Comfort 07/27/20 21:00 07/29/20 20:59 07/29/20 09:07 Norepinephrine Bitartrate 4 mg/ Dextrose 250 ml @ 0 mls/hr Q24H PRN IV For hypotension 07/27/20 17:00 07/29/20 20:29 Sodium Polystyrene Sulfonate (Kayexalate) 45 gm ONCE NG 07/29/20 13:00 07/29/20 15:00 07/29/20 12:46 Trimethoprim/ Sulfamethoxazole 20 ml/Dextrose 570 ml @ 380 mls/hr Q12HR IV 07/29/20 21:00 08/05/20 20:59 Vancomycin HCl ([facility] pharmacy to dose) 1 ea DAILY PRN MISC Per rx protocol 07/27/20 10:00 08/26/20 09:59 Vancomycin HCl 750 mg/Sodium Chloride 275 ml @ 183.333 mls/hr Q12HR@1100,2300 IVPB 07/27/20 23:00 08/01/20 22:59 07/29/20 11:38 Laboratory Tests 07/28/20 18:15: D-Dimer 2.92H, Pro-B-Type Natriuretic Peptide 251H 07/28/20 18:17: POC Whole Blood Glucose 334H 07/28/20 22:20: Vancomycin Level Trough 17.3H 07/29/20 03:35: White Blood Count 25.7*H, Red Blood Count 3.74L, Hemoglobin 10.8L, Hematocrit 34.6L, Mean Corpuscular Volume 93, Mean Corpuscular Hemoglobin 28.8, Mean Corpuscular Hemoglobin Concent 31.2L, Red Cell Distribution Width 13.9, Platelet Count 196, Mean Platelet Volume 11.4H, Neutrophils (%) (Auto) , Lymphocytes (%) (Auto) , Monocytes (%) (Auto) , Eosinophils (%) (Auto) , Basophils (%) (Auto) , Differential Total Cells Counted 100, Neutrophils % (Manual) 97H, Lymphocytes % (Manual) 1L, Monocytes % (Manual) 2, Eosinophils % (Manual) 0, Basophils % (Manual) 0, Band Neutrophils 0, Platelet Estimate Adequate, Platelet Morphology Normal, Hypochromasia 1+, Sodium Level 145, Potassium Level 5.8H, Chloride Level 110H, Carbon Dioxide Level 32, Anion Gap 3L, Blood Urea Nitrogen 54H, Creatinine 1.1, Estimat Glomerular Filtration Rate 50.2, Glucose Level 350H, Calcium Level 8.8, Total Bilirubin 0.2, Aspartate Amino Transf (AST/SGOT) 18, Alanine Aminotransferase (ALT/SGPT) 29, Alkaline Phosphatase 75, Total Protein 5.4L, Albumin 1.9L, Globulin 3.5, Albumin/Globulin Ratio 0.5L 07/29/20 07:43: Arterial Blood pH 7.353, Arterial Blood Partial Pressure CO2 56.6*H, Arterial Blood Partial Pressure O2 61.7L, Arterial Blood HCO3 30.8H, Arterial Blood Oxygen Saturation 89.2*L, Arterial Blood Base Excess 4H, Timbo Test Positive Height (Feet): 5 Height (Inches): 3.00 Weight (Pounds): 162 General Appearance: no apparent distress EENT: other - Intubated on ventilator FiO2 100% Cardiovascular: tachycardia Respiratory/Chest: decreased breath sounds Abdomen: distended Objective No change Anurag Bridges MD Jul 29, 2020 13:37
[2020-07-29] MEDS: FLUCONAZOLE 400 MG/200 ML IV SCH (14:03)
--- NOTE | 2020-07-29 15:14 | NUR ---
CASE MANAGEMENT:REVIEW 07/29/11 SI: COVID PNA ~ INTUBATED 98.7 119 20 94/55 92% ON VENT SUPPORT W/100% FIO2 WBC+25.7 K+5.8 BUN+54 GLUCOSE+350 IS: IV BACTRIM Q12 IV DIFLUCAN Q24 IV CEFEPIME Q12 IV VANCOMYCIN Q12 IV SOLUMEDROL Q6HRS IV PEPCID Q12 VERSED GTT : ICU STATUS
[2020-07-29] MEDS: fentaNYL 2500mcg/NS 250ml 250 ML IV PRN (17:40)
--- NOTE | 2020-07-29 18:20 | Cardiology Progress Note ---
Assessment/Plan Status: not improved Assessment/Plan 1. COVID-19 viral PNA s/p remdesivir and dexamethasone WBCs severely elevated 2. Respiratory failure 2/2 acute PNA Intubated 07/25/20 3. HFpEF acute on chronic diastolic HF with preserved EF EF 65%, per repeat echo post intubation Lasix for diuresis as needed BNP 164 4. 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 Sinus tachycardia 2/2 fever and infection Pt with fever and leukocytosis still vent dependent. In sinus rhythm, tachycardic, Bb for rate and rhythm control, not on pressors. Well preserved LV function. Lasix as needed per pulmonlogy recs. Subjective ROS Limited/Unobtainable: Yes Subjective Intubated and on vent, in sinus rhythm, not on pressors. Fever today. Seen in ICU Objective Last 24 Hour Vital Signs Date Time Temp Pulse Resp B/P (MAP) Pulse Ox O2 Delivery O2 Flow Rate FiO2 07/29/20 17:40 21 97/58 Endotracheal Tube 100 07/29/20 17:23 116 20 100 07/29/20 17:15 101.0 07/29/20 16:00 100 07/29/20 16:00 20 102/58 Endotracheal Tube 100 07/29/20 16:00 20 102/58 Endotracheal Tube 100 07/29/20 16:00 117 07/29/20 16:00 101.3 115 20 102/58 (73) 94 07/29/20 16:00 Mechanical Ventilator 07/29/20 15:01 121 21 100 07/29/20 15:00 119 20 117/61 (79) 93 07/29/20 15:00 20 117/61 Endotracheal Tube 100 07/29/20 15:00 20 117/61 Endotracheal Tube 100 07/29/20 14:00 20 131/76 Endotracheal Tube 100 07/29/20 14:00 20 131/76 Endotracheal Tube 100 07/29/20 14:00 126 20 131/76 (94) 92 07/29/20 13:30 112 19 111/62 (78) 94 07/29/20 13:30 112 23 100 07/29/20 13:00 18 102/58 Endotracheal Tube 100 07/29/20 13:00 18 102/58 Endotracheal Tube 100 07/29/20 13:00 112 22 102/58 (73) 95 07/29/20 12:30 107 21 99/57 (71) 96 07/29/20 12:00 98.7 100 20 94/55 (68) 95 07/29/20 12:00 100 07/29/20 12:00 17 130/55 Endotracheal Tube 100 07/29/20 12:00 17 94/55 Endotracheal Tube 100 07/29/20 12:00 Mechanical Ventilator 07/29/20 12:00 128 07/29/20 11:30 101 21 100 07/29/20 11:00 103 27 99/58 (72) 93 07/29/20 11:00 17 99/58 Endotracheal Tube 100 07/29/20 11:00 18 99/58 Endotracheal Tube 100 07/29/20 10:30 96 18 101/61 (74) 92 07/29/20 10:00 18 98/59 Endotracheal Tube 100 07/29/20 10:00 18 98/59 Endotracheal Tube 100 07/29/20 10:00 91 18 98/55 (69) 94 07/29/20 09:30 93 19 99/52 (68) 94 07/29/20 09:30 98 20 100 07/29/20 09:07 17 106/65 Endotracheal Tube 100 07/29/20 09:01 105 106/65 07/29/20 09:00 93 17 98/55 (69) 96 07/29/20 09:00 17 98/55 Endotracheal Tube 100 07/29/20 09:00 17 98/55 Endotracheal Tube 100 07/29/20 08:30 106 18 103/59 (74) 96 07/29/20 08:00 92 07/29/20 08:00 17 105/64 Endotracheal Tube 100 07/29/20 08:00 17 105/64 Endotracheal Tube 100 07/29/20 08:00 100 07/29/20 08:00 Mechanical Ventilator 07/29/20 08:00 98.2 106 17 105/64 (78) 95 07/29/20 07:34 112 20 100 07/29/20 07:30 111 19 110/64 (79) 91 07/29/20 07:00 17 108/64 Endotracheal Tube 100 07/29/20 07:00 17 108/64 Endotracheal Tube 100 07/29/20 07:00 107 17 108/64 (79) 92 07/29/20 06:00 102 17 100/57 (71) 93 07/29/20 06:00 17 102/67 Mechanical Ventilator 100 07/29/20 06:00 17 102/67 Mechanical Ventilator 100 07/29/20 05:45 96 16 95/62 (73) 94 07/29/20 05:30 98 16 100/62 (75) 95 07/29/20 05:15 101 17 102/62 (75) 95 07/29/20 05:00 17 95/62 Mechanical Ventilator 100 07/29/20 05:00 17 95/62 Mechanical Ventilator 100 07/29/20 05:00 102 18 103/61 (75) 95 07/29/20 04:57 112 19 100 07/29/20 04:45 103 17 109/64 (79) 96 07/29/20 04:30 98.5 106 27 100/62 (75) 95 07/29/20 04:15 104 24 96/57 (70) 96 07/29/20 04:00 100 07/29/20 04:00 105 07/29/20 04:00 17 109/64 Mechanical Ventilator 100 07/29/20 04:00 17 109/64 Mechanical Ventilator 100 07/29/20 04:00 Mechanical Ventilator 07/29/20 04:00 102 18 99/53 (68) 96 07/29/20 03:45 103 16 96/55 (69) 97 07/29/20 03:30 102 16 95/57 (70) 96 07/29/20 03:15 102 19 96/56 (69) 95 07/29/20 03:04 105 18 100 07/29/20 03:00 17 95/67 Mechanical Ventilator 100 07/29/20 03:00 17 95/67 Mechanical Ventilator 100 07/29/20 03:00 108 14 103/58 (73) 96 07/29/20 02:45 109 16 106/58 (74) 95 07/29/20 02:30 108 15 101/60 (74) 96 07/29/20 02:15 109 16 107/64 (78) 96 07/29/20 02:00 99.6 110 16 105/64 (78) 95 07/29/20 02:00 17 105/64 Mechanical Ventilator 100 07/29/20 02:00 17 105/64 Mechanical Ventilator 100 07/29/20 01:45 110 17 104/60 (75) 96 2/27/21 01:43 110 18 100 07/29/20 01:30 113 18 116/60 (78) 96 07/29/20 01:15 112 18 113/64 (80) 95 07/29/20 01:00 112 19 105/55 (72) 95 07/29/20 01:00 17 105/55 Mechanical Ventilator 100 07/29/20 01:00 17 105/55 Mechanical Ventilator 100 07/29/20 00:45 111 17 99/56 (70) 96 07/29/20 00:30 102.0 110 17 102/56 (71) 96 07/29/20 00:25 102.0 07/29/20 00:15 112 18 103/52 (69) 97 07/29/20 00:00 100 07/29/20 00:00 Mechanical Ventilator 07/29/20 00:00 102.4 111 17 121/62 (81) 96 07/29/20 00:00 17 102/56 Mechanical Ventilator 100 07/29/20 00:00 17 112/61 Mechanical Ventilator 100 07/29/20 00:00 109 07/28/20 23:45 115 19 115/65 (82) 96 07/28/20 23:30 110 18 111/60 (77) 96 07/28/20 23:30 110 18 100 07/28/20 23:22 17 112/61 Mechanical Ventilator 100 07/28/20 23:15 108 19 112/61 (78) 96 07/28/20 23:00 21 112/61 Mechanical Ventilator 100 07/28/20 23:00 108 20 112/62 (79) 96 07/28/20 22:45 107 20 112/64 (80) 96 07/28/20 22:30 104 19 108/61 (77) 97 07/28/20 22:15 104 20 105/63 (77) 96 07/28/20 22:00 20 105/60 Mechanical Ventilator 100 07/28/20 22:00 21 105/60 Mechanical Ventilator 100 07/28/20 22:00 105 20 105/60 (75) 96 07/28/20 21:45 107 21 108/61 (77) 96 07/28/20 21:40 109 21 100 07/28/20 21:30 109 20 113/60 (77) 96 07/28/20 21:15 112 19 113/67 (82) 97 07/28/20 21:00 20 90/75 Mechanical Ventilator 100 07/28/20 21:00 20 90/75 Mechanical Ventilator 100 07/28/20 21:00 133 24 90/75 (80) 94 07/28/20 20:45 118 20 113/62 (79) 96 07/28/20 20:42 119 143/73 07/28/20 20:30 127 23 143/73 (96) 95 07/28/20 20:15 117 21 118/62 (80) 95 07/28/20 20:00 115 07/28/20 20:00 21 121/65 Mechanical Ventilator 100 07/28/20 20:00 21 121/65 Mechanical Ventilator 100 07/28/20 20:00 Mechanical Ventilator 07/28/20 20:00 99.6 118 21 121/65 (83) 95 07/28/20 19:59 127 23 100 07/28/20 19:45 127 23 150/81 (104) 93 07/28/20 19:30 19 115/66 Mechanical Ventilator 100 07/28/20 19:30 19 115/66 Mechanical Ventilator 100 07/28/20 19:30 115 19 115/66 (82) 96 07/28/20 19:15 114 21 113/62 (79) 96 07/28/20 19:00 115 21 113/58 (76) 96 07/28/20 19:00 21 113/62 Mechanical Ventilator 100 07/28/20 19:00 21 113/62 Mechanical Ventilator 100 General Appearance: on vent Neck: no JVD Rhythm: ST Cardiovascular: tachycardia Respiratory/Chest: no respiratory distress, no accessory muscle use Intake and Output 07/28/20 07/29/20 19:00 07:00 Intake Total 1064.9 ml 1113.8 ml Output Total 520 ml 705 ml Balance 544.9 ml 408.8 ml Free Water 200 ml 225 ml IV Total 144.9 ml 228.8 ml Tube Feeding 660 ml 660 ml Other 60 ml Output Urine Total 520 ml 705 ml Laboratory Tests Test 07/28/20 18:15 07/28/20 18:17 07/28/20 22:20 07/29/20 03:35 D-Dimer 2.92 mg/L FEU (0.00-0.49) H Pro-B-Type Natriuretic Peptide 251 pg/mL (0-125) H POC Whole Blood Glucose 334 MG/DL (74-106) H Vancomycin Level Trough 17.3 ug/mL (5.0-12.0) H White Blood Count 25.7 K/UL (4.8-10.8) *H Red Blood Count 3.74 M/UL (4.20-5.40) L Hemoglobin 10.8 G/DL (12.0-16.0) L Hematocrit 34.6 % (37.0-47.0) L Mean Corpuscular Volume 93 FL (80-99) Mean Corpuscular Hemoglobin 28.8 PG (27.0-31.0) Mean Corpuscular Hemoglobin Concent 31.2 G/DL (32.0-36.0) L Red Cell Distribution Width 13.9 % (11.6-14.8) Platelet Count 196 K/UL (150-450) Mean Platelet Volume 11.4 FL (6.5-10.1) H Neutrophils (%) (Auto) % (45.0-75.0) Lymphocytes (%) (Auto) % (20.0-45.0) Monocytes (%) (Auto) % (1.0-10.0) Eosinophils (%) (Auto) % (0.0-3.0) Basophils (%) (Auto) % (0.0-2.0) Differential Total Cells Counted 100 Neutrophils % (Manual) 97 % (45-75) H Lymphocytes % (Manual) 1 % (20-45) L Monocytes % (Manual) 2 % (1-10) Eosinophils % (Manual) 0 % (0-3) Basophils % (Manual) 0 % (0-2) Band Neutrophils 0 % (0-8) Platelet Estimate Adequate Platelet Morphology Normal Hypochromasia 1+ Sodium Level 145 MMOL/L (136-145) Potassium Level 5.8 MMOL/L (3.5-5.1) H Chloride Level 110 MMOL/L (98-107) H Carbon Dioxide Level 32 MMOL/L (21-32) Anion Gap 3 mmol/L (5-15) L Blood Urea Nitrogen 54 mg/dL (7-18) H Creatinine 1.1 MG/DL (0.55-1.30) Estimat Glomerular Filtration Rate 50.2 mL/min (>60) Glucose Level 350 MG/DL (74-106) H Calcium Level 8.8 MG/DL (8.5-10.1) Total Bilirubin 0.2 MG/DL (0.2-1.0) Aspartate Amino Transf (AST/SGOT) 18 U/L (15-37) Alanine Aminotransferase (ALT/SGPT) 29 U/L (12-78) Alkaline Phosphatase 75 U/L (46-116) Total Protein 5.4 G/DL (6.4-8.2) L Albumin 1.9 G/DL (3.4-5.0) L Globulin 3.5 g/dL Albumin/Globulin Ratio 0.5 (1.0-2.7) L Test 07/29/20 07:43 Arterial Blood pH 7.353 (7.350-7.450) Arterial Blood Partial Pressure CO2 56.6 mmHg (35.0-45.0) *H Arterial Blood Partial Pressure O2 61.7 mmHg (75.0-100.0) L Arterial Blood HCO3 30.8 mmol/L (22.0-26.0) H Arterial Blood Oxygen Saturation 89.2 % (95-100) *L Arterial Blood Base Excess 4 (-2-2) H Timbo Test Positive Blanca Lobato PA-C Jul 29, 2020 18:20
--- NOTE | 2020-07-29 19:45 | NUR ---
NURSE NOTES: Rn received report from day RN Marcell. Patient on mechanical ventilator with setting of ac 20 tidal volume 450 peep 10 and fio2 100%. Patient bp decreasing. RN assessed patient after report and bp trending down. RN paused Fentanyl gtt and decreased Versed. RN will continue to monitor.
--- NOTE | 2020-07-29 20:00 | General Progress Note ---
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 tolerating TF (+) BM Objective Last 24 Hour Vital Signs Date Time Temp Pulse Resp B/P (MAP) Pulse Ox O2 Delivery O2 Flow Rate FiO2 07/29/20 19:18 115 20 100 07/29/20 19:00 21 97/58 Endotracheal Tube 100 07/29/20 19:00 20 108/59 Endotracheal Tube 100 07/29/20 19:00 101.0 116 22 93/54 (67) 97 07/29/20 18:00 101.7 119 23 108/59 (75) 95 07/29/20 18:00 20 92/56 Endotracheal Tube 100 07/29/20 18:00 20 92/56 Endotracheal Tube 100 07/29/20 17:40 21 97/58 Endotracheal Tube 100 07/29/20 17:30 120 21 97/58 (71) 94 07/29/20 17:23 116 20 100 07/29/20 17:15 101.0 07/29/20 17:00 116 23 92/56 (68) 95 07/29/20 17:00 20 97/58 Endotracheal Tube 100 07/29/20 17:00 21 92/56 Endotracheal Tube 100 07/29/20 16:00 100 07/29/20 16:00 20 102/58 Endotracheal Tube 100 07/29/20 16:00 20 102/58 Endotracheal Tube 100 07/29/20 16:00 117 07/29/20 16:00 101.3 115 20 102/58 (73) 94 07/29/20 16:00 Mechanical Ventilator 07/29/20 15:01 121 21 100 07/29/20 15:00 119 20 117/61 (79) 93 07/29/20 15:00 20 117/61 Endotracheal Tube 100 07/29/20 15:00 20 117/61 Endotracheal Tube 100 07/29/20 14:00 20 131/76 Endotracheal Tube 100 07/29/20 14:00 20 131/76 Endotracheal Tube 100 07/29/20 14:00 126 20 131/76 (94) 92 07/29/20 13:30 112 19 111/62 (78) 94 07/29/20 13:30 112 23 100 07/29/20 13:00 18 102/58 Endotracheal Tube 100 07/29/20 13:00 18 102/58 Endotracheal Tube 100 07/29/20 13:00 112 22 102/58 (73) 95 07/29/20 12:30 107 21 99/57 (71) 96 07/29/20 12:00 98.7 100 20 94/55 (68) 95 07/29/20 12:00 100 07/29/20 12:00 17 130/55 Endotracheal Tube 100 07/29/20 12:00 17 94/55 Endotracheal Tube 100 07/29/20 12:00 Mechanical Ventilator 07/29/20 12:00 128 07/29/20 11:30 101 21 100 07/29/20 11:00 103 27 99/58 (72) 93 07/29/20 11:00 17 99/58 Endotracheal Tube 100 07/29/20 11:00 18 99/58 Endotracheal Tube 100 07/29/20 10:30 96 18 101/61 (74) 92 07/29/20 10:00 18 98/59 Endotracheal Tube 100 07/29/20 10:00 18 98/59 Endotracheal Tube 100 07/29/20 10:00 91 18 98/55 (69) 94 07/29/20 09:30 93 19 99/52 (68) 94 07/29/20 09:30 98 20 100 07/29/20 09:07 17 106/65 Endotracheal Tube 100 07/29/20 09:01 105 106/65 07/29/20 09:00 93 17 98/55 (69) 96 07/29/20 09:00 17 98/55 Endotracheal Tube 100 07/29/20 09:00 17 98/55 Endotracheal Tube 100 07/29/20 08:30 106 18 103/59 (74) 96 07/29/20 08:00 92 07/29/20 08:00 17 105/64 Endotracheal Tube 100 07/29/20 08:00 17 105/64 Endotracheal Tube 100 07/29/20 08:00 100 07/29/20 08:00 Mechanical Ventilator 07/29/20 08:00 98.2 106 17 105/64 (78) 95 07/29/20 07:34 112 20 100 07/29/20 07:30 111 19 110/64 (79) 91 07/29/20 07:00 17 108/64 Endotracheal Tube 100 07/29/20 07:00 17 108/64 Endotracheal Tube 100 07/29/20 07:00 107 17 108/64 (79) 92 07/29/20 06:00 102 17 100/57 (71) 93 07/29/20 06:00 17 102/67 Mechanical Ventilator 100 07/29/20 06:00 17 102/67 Mechanical Ventilator 100 07/29/20 05:45 96 16 95/62 (73) 94 07/29/20 05:30 98 16 100/62 (75) 95 07/29/20 05:15 101 17 102/62 (75) 95 07/29/20 05:00 17 95/62 Mechanical Ventilator 100 07/29/20 05:00 17 95/62 Mechanical Ventilator 100 07/29/20 05:00 102 18 103/61 (75) 95 07/29/20 04:57 112 19 100 07/29/20 04:45 103 17 109/64 (79) 96 07/29/20 04:30 98.5 106 27 100/62 (75) 95 07/29/20 04:15 104 24 96/57 (70) 96 07/29/20 04:00 100 07/29/20 04:00 105 07/29/20 04:00 17 109/64 Mechanical Ventilator 100 07/29/20 04:00 17 109/64 Mechanical Ventilator 100 07/29/20 04:00 Mechanical Ventilator 07/29/20 04:00 102 18 99/53 (68) 96 07/29/20 03:45 103 16 96/55 (69) 97 07/29/20 03:30 102 16 95/57 (70) 96 07/29/20 03:15 102 19 96/56 (69) 95 07/29/20 03:04 105 18 100 07/29/20 03:00 17 95/67 Mechanical Ventilator 100 07/29/20 03:00 17 95/67 Mechanical Ventilator 100 07/29/20 03:00 108 14 103/58 (73) 96 07/29/20 02:45 109 16 106/58 (74) 95 07/29/20 02:30 108 15 101/60 (74) 96 07/29/20 02:15 109 16 107/64 (78) 96 07/29/20 02:00 99.6 110 16 105/64 (78) 95 07/29/20 02:00 17 105/64 Mechanical Ventilator 100 07/29/20 02:00 17 105/64 Mechanical Ventilator 100 07/29/20 01:45 110 17 104/60 (75) 96 07/29/20 01:43 110 18 100 07/29/20 01:30 113 18 116/60 (78) 96 07/29/20 01:15 112 18 113/64 (80) 95 07/29/20 01:00 112 19 105/55 (72) 95 07/29/20 01:00 17 105/55 Mechanical Ventilator 100 07/29/20 01:00 17 105/55 Mechanical Ventilator 100 07/29/20 00:45 111 17 99/56 (70) 96 07/29/20 00:30 102.0 110 17 102/56 (71) 96 07/29/20 00:25 102.0 07/29/20 00:15 112 18 103/52 (69) 97 07/29/20 00:00 100 07/29/20 00:00 Mechanical Ventilator 07/29/20 00:00 102.4 111 17 121/62 (81) 96 07/29/20 00:00 17 102/56 Mechanical Ventilator 100 07/29/20 00:00 17 112/61 Mechanical Ventilator 100 07/29/20 00:00 109 07/28/20 23:45 115 19 115/65 (82) 96 07/28/20 23:30 110 18 111/60 (77) 96 07/28/20 23:30 110 18 100 07/28/20 23:22 17 112/61 Mechanical Ventilator 100 07/28/20 23:15 108 19 112/61 (78) 96 07/28/20 23:00 21 112/61 Mechanical Ventilator 100 07/28/20 23:00 108 20 112/62 (79) 96 07/28/20 22:45 107 20 112/64 (80) 96 07/28/20 22:30 104 19 108/61 (77) 97 07/28/20 22:15 104 20 105/63 (77) 96 07/28/20 22:00 20 105/60 Mechanical Ventilator 100 07/28/20 22:00 21 105/60 Mechanical Ventilator 100 07/28/20 22:00 105 20 105/60 (75) 96 07/28/20 21:45 107 21 108/61 (77) 96 07/28/20 21:40 109 21 100 07/28/20 21:30 109 20 113/60 (77) 96 07/28/20 21:15 112 19 113/67 (82) 97 07/28/20 21:00 20 90/75 Mechanical Ventilator 100 07/28/20 21:00 20 90/75 Mechanical Ventilator 100 07/28/20 21:00 133 24 90/75 (80) 94 07/28/20 20:45 118 20 113/62 (79) 96 07/28/20 20:42 119 143/73 07/28/20 20:30 127 23 143/73 (96) 95 07/28/20 20:15 117 21 118/62 (80) 95 07/28/20 20:00 115 07/28/20 20:00 21 121/65 Mechanical Ventilator 100 07/28/20 20:00 21 121/65 Mechanical Ventilator 100 07/28/20 20:00 Mechanical Ventilator 07/28/20 20:00 99.6 118 21 121/65 (83) 95 07/28/20 19:59 127 23 100 Intake and Output 07/28/20 07/29/20 19:00 07:00 Intake Total 1064.9 ml 1113.8 ml Output Total 520 ml 705 ml Balance 544.9 ml 408.8 ml Free Water 200 ml 225 ml IV Total 144.9 ml 228.8 ml Tube Feeding 660 ml 660 ml Other 60 ml Output Urine Total 520 ml 705 ml Laboratory Tests 07/28/20 22:20: Vancomycin Level Trough 17.3H 07/29/20 03:35: White Blood Count 25.7*H, Red Blood Count 3.74L, Hemoglobin 10.8L, Hematocrit 34.6L, Mean Corpuscular Volume 93, Mean Corpuscular Hemoglobin 28.8, Mean Corpuscular Hemoglobin Concent 31.2L, Red Cell Distribution Width 13.9, Platelet Count 196, Mean Platelet Volume 11.4H, Neutrophils (%) (Auto) , Lymphocytes (%) (Auto) , Monocytes (%) (Auto) , Eosinophils (%) (Auto) , Basophils (%) (Auto) , Differential Total Cells Counted 100, Neutrophils % (Manual) 97H, Lymphocytes % (Manual) 1L, Monocytes % (Manual) 2, Eosinophils % (Manual) 0, Basophils % (Manual) 0, Band Neutrophils 0, Platelet Estimate Adequate, Platelet Morphology Normal, Hypochromasia 1+, Sodium Level 145, Potassium Level 5.8H, Chloride Level 110H, Carbon Dioxide Level 32, Anion Gap 3L, Blood Urea Nitrogen 54H, Creatinine 1.1, Estimat Glomerular Filtration Rate 50.2, Glucose Level 350H, Calcium Level 8.8, Total Bilirubin 0.2, Aspartate Amino Transf (AST/SGOT) 18, Alanine Aminotransferase (ALT/SGPT) 29, Alkaline Phosphatase 75, Total Protein 5.4L, Albumin 1.9L, Globulin 3.5, Albumin/Globulin Ratio 0.5L 07/29/20 07:43: Arterial Blood pH 7.353, Arterial Blood Partial Pressure CO2 56.6*H, Arterial Blood Partial Pressure O2 61.7L, Arterial Blood HCO3 30.8H, Arterial Blood Oxygen Saturation 89.2*L, Arterial Blood Base Excess 4H, Timbo Test Positive Height (Feet): 5 Height (Inches): 3.00 Weight (Pounds): 162 Objective Mildly obese woman NAD, comfortable NCAT (+) ETT (+) OGT coarse BS RR abd soft, obese non edema Assessment/Plan Status: not improved Assessment/Plan: Assessment - COVID infection - PNA, resp failure - dysphagia - CHF - DM - leukocytosis on steroids Recommendations - Continue TF - elevate HOB - follow labs and exam - supportive care Holly Rehman MD Jul 29, 2020 20:00
[2020-07-29] MEDS: Dyna-Hex 2% Top Sol 2oz TOPIC SCH (20:56)
[2020-07-29] MEDS: Trimethoprim/Sulfamethoxazole 20 ML in D5W 500ml 550 ML IV SCH (20:56)
--- NOTE | 2020-07-29 21:25 | NUR ---
NURSE NOTES: Patient vitals are improving after Fentanyl GTT was paused. Patient afebrile at this time. Patient repositioned for comfort. Patient airway patent and oral care completed. RN will continue to monitor.
[2020-07-30] VITALS (71 sets, daily range): BP systolic 94–160; BP diastolic 50–114
--- NOTE | 2020-07-30 00:10 | NUR ---
NURSE NOTES: Patient resting. Patient respositioned. VSS at this time. RN will continue to monitor.
[2020-07-30] MEDS: Solu-MEDROL 40mg Inj IVP SCH ×4 (00:14→18:05)
[2020-07-30] MEDS: Vancomycin 750mg/NS 275ml IVPB SCH ×6 (00:14→23:21)
[2020-07-30] MEDS: NovoLOG Insulin Flexpen SUBQ SCH ×4 (01:16→18:28)
--- NOTE | 2020-07-30 02:30 | NUR ---
NURSE NOTES: Patioent resting. Patient vitals stable. RN will continuw to monitor.
[2020-07-30] MEDS: Versed 100mg/NS 200ml 200 ML IV PRN ×2 (03:02→14:00)
--- NOTE | 2020-07-30 04:30 | NUR ---
NURSE NOTES: Patient vitals stable. Patient oral care completed. Patient repositioned. RN will cont to monitor.
[2020-07-30 05:47] LABS: HEMATOCRIT 28.8 % (37.0-47.0); MEAN CORPUSCULAR VOLUME 92 FL (80-99); PLATELET COUNT 154 K/UL (150-450); RED BLOOD COUNT 3.14 M/UL (4.20-5.40); RED CELL DISTRIBUTION WIDTH 14.6 % (11.6-14.8); WHITE BLOOD COUNT 21.5 K/UL (4.8-10.8)
[2020-07-30 06:57] LABS: ALANINE AMINOTRANSFERASE 23 U/L (12-78); ALBUMIN 1.6 G/DL (3.4-5.0); ALBUMIN/GLOBULIN RATIO 0.5 (1.0-2.7); ALKALINE PHOSPHATASE 72 U/L (46-116); ANION GAP 7 mmol/L (5-15); ASPARTATE AMINO TRANSFERASE 27 U/L (15-37); BILIRUBIN,TOTAL < 0.1 MG/DL (0.2-1.0); BLOOD UREA NITROGEN 30 mg/dL (7-18); CARBON DIOXIDE 30 MMOL/L (21-32); CHLORIDE 109 MMOL/L (98-107); CREATININE 0.8 MG/DL (0.55-1.30); PHOSPHORUS 2.7 MG/DL (2.5-4.9); POTASSIUM 4.7 MMOL/L (3.5-5.1); SODIUM 146 MMOL/L (136-145)
[2020-07-30 07:02] LABS: CALCIUM 7.9 MG/DL (8.5-10.1)
--- NOTE | 2020-07-30 09:10 | NUR ---
NURSE NOTES: Dr. fowler updated at the bedside regarding the patient lack of bowel movement over the last five days, ordered to have an order for sorbitol PRN q12hrs for constipation. no additional orders given at this time.
[2020-07-30] MEDS ORDERED: Sorbitol Solution UD 30ml ORAL PRN (09:15)
[2020-07-30] MEDS: Docusate 100mg/10ml Liq NG SCH ×3 (09:30→18:00)
[2020-07-30] MEDS: Cefepime HCl 2 GM in D5W 55 ML IVPB SCH ×2 (09:31→20:20)
[2020-07-30] MEDS: Trimethoprim/Sulfamethoxazole 20 ML in D5W 500ml 550 ML IV SCH ×2 (09:31→20:19)
[2020-07-30] MEDS: Enoxaparin 80mg Inj SUBQ SCH ×2 (09:32→20:21)
--- NOTE | 2020-07-30 10:08 | Diagnostic Imaging Report ---
EXAM: XR Chest, 1 View CLINICAL HISTORY: ABN CHST TECHNIQUE: Frontal view of the chest. COMPARISON: Chest x-rays dated 07/29/20 FINDINGS: Lungs: No significant interval change in bilateral pulmonary infiltrates. Pleural space: Unremarkable. The costophrenic angles are sharp. No visible pneumothorax. Heart: Unremarkable. No cardiomegaly. Mediastinum: Unremarkable. Bones/joints: Unremarkable. Vasculature: Atherosclerotic calcifications within the aortic arch. Tubes, lines and devices: Endotracheal tube tip 2.9 cm above the yareli. NG tube extends below the diaphragm with the tip extending beyond the [id number]. Telemetry leads overlie the thorax. IMPRESSION: No significant interval change in bilateral pulmonary infiltrates.
[2020-07-30] MEDS: Levemir Flexpen SUBQ SCH ×2 (10:26→21:00)
--- NOTE | 2020-07-30 11:20 | NUR ---
NURSE NOTES: Dr. Bridges updated on the patient urine output of approximately 75-150ml/hr. tube feeding remains running at 55ml/hr. patient remains on ventilator setting at AC 20, TV: 450, FIO2 100% and peep of 10.
--- NOTE | 2020-07-30 12:08 | Nephrology Progress Note ---
Assessment/Plan Problem List: (1) Hyponatremia (2) Hypoxia (3) Pneumonitis (4) Acute respiratory failure due to COVID-19 (5) DMII (diabetes mellitus, type 2) (6) HTN (hypertension) Assessment Hyponatremia, improved with saline infusion COVID-19 infection Pneumonia, acute respiratory failure, hypoxia Diabetes mellitus Hypertension Plan July 30: Labs reviewed. Renal parameters stable. Continue per consultants. Intubated on ventilator with FiO2 of 100%. Full code. Not much to add from renal standpoint of view at this time. July 29 labs reviewed. Serum potassium elevated. Potassium supplement was put on hold on 1 dose of Kayexalate given. Levemir dose increased. Continue to monitor renal parameters. Patient remains on 100% FiO2 on ventilator. July 28: Labs reviewed. Renal parameters stable. Remains full code. Blood sugar remains high. Levemir dose increased. Not much to add from renal standpoint of view. FiO2 now is 100%. July 27: Labs reviewed. Renal parameters stable. Low potassium addressed. FiO2 70%. Blood sugar elevated. Levemir dose is being adjusted. Continue per consultants. July 26: Labs reviewed. Renal parameters stable. Patient now intubated on ventilator in ICU. Blood sugar elevated. Levemir added. Will watch electrolytes. Main management per validation analyst and ID. July 25: Labs reviewed. Renal parameters stable. Continue per consultants. July 24: Labs reviewed. Renal parameters stable. Continue per pulmonary. Medication list reviewed. July 23: No labs drawn today. Medication list reviewed. Continue per art sales consultant. Patient full code. July 22: Labs reviewed. Stable renal parameters. Continue per consultants. July 21: No CHEM panel drawn today. Stable from renal standpoint of view. Blood pressure stable. July 20: IV changed to D5W 50 cc an hour. Renal parameters stable. Continue per consultants. July 19: Pulmonary status remains unstable. Stable from renal standpoint of view. July 18: Labs reviewed. Stable renal parameters and electrolytes. Continue per consultants. July 17: No labs drawn today. Remains stable from renal standpoint today. July 16: No labs drawn today. Continue per consultants. Stable from renal standpoint of view. July 15: Labs reviewed. Renal parameters stable. July 14: No labs from today. Continue per current management. Check labs tomorrow. July 13: No labs drawn today. Stable from renal standpoint of view. July 12: Today's labs pending. Medication list reviewed. Continue per current management and consultants. July 11: Labs reviewed. Renal parameters stable. July 10: Labs reviewed. Renal parameters electrolytes stable. Continue per consultants. July 09: Labs reviewed. Renal parameters and electrolytes stable. Continue per ID and pulmonary. Subjective ROS Limited/Unobtainable: Yes Objective Objective Last 24 Hour Vital Signs Date Time Temp Pulse Resp B/P (MAP) Pulse Ox O2 Delivery O2 Flow Rate FiO2 07/30/20 11:00 109 22 108/58 (75) 95 07/30/20 10:30 115 21 118/59 (78) 96 07/30/20 10:00 127 20 119/66 (83) 95 07/30/20 09:31 132 128/65 07/30/20 09:30 133 22 128/65 (86) 90 07/30/20 09:00 124 21 118/67 (84) 95 07/30/20 08:30 126 21 122/61 (81) 95 07/30/20 08:00 125 07/30/20 08:00 100.4 129 24 115/59 (77) 91 07/30/20 08:00 Mechanical Ventilator 07/30/20 08:00 100 07/30/20 07:30 129 22 118/70 (86) 92 07/30/20 07:03 98.9 07/30/20 07:00 125 22 94 07/30/20 06:45 124 22 102/55 (71) 95 07/30/20 06:30 22 102/58 Mechanical Ventilator 100 07/30/20 06:30 127 22 117/62 (80) 93 07/30/20 06:15 127 23 122/68 (86) 93 07/30/20 06:00 126 21 117/69 (85) 94 07/30/20 05:45 127 22 122/65 (84) 94 07/30/20 05:30 131 22 129/70 (89) 91 07/30/20 05:30 18 116/78 Mechanical Ventilator 100 07/30/20 05:15 125 22 120/62 (81) 92 07/30/20 05:00 122 21 118/70 (86) 93 07/30/20 04:45 124 22 115/63 (80) 92 07/30/20 04:30 22 136/74 Mechanical Ventilator 100 07/30/20 04:30 120 23 111/63 (79) 93 07/30/20 04:15 122 21 123/70 (87) 94 07/30/20 04:09 Mechanical Ventilator 07/30/20 04:00 122 07/30/20 04:00 99.9 124 22 133/61 (85) 94 07/30/20 04:00 100 07/30/20 03:45 122 23 121/65 (83) 95 07/30/20 03:38 125 22 100 07/30/20 03:30 119 22 117/62 (80) 94 07/30/20 03:30 18 123/77 Mechanical Ventilator 100 07/30/20 03:15 119 23 115/66 (82) 94 07/30/20 03:02 22 158/114 Mechanical Ventilator 100 07/30/20 03:00 127 25 123/70 (87) 89 07/30/20 02:45 124 22 150/114 (126) 95 07/30/20 02:30 117 22 116/69 (85) 95 07/30/20 02:30 20 120/74 Mechanical Ventilator 100 07/30/20 02:15 121 21 115/71 (86) 95 07/30/20 02:15 22 133/51 Mechanical Ventilator 100 07/30/20 02:00 22 124/83 Mechanical Ventilator 100 07/30/20 02:00 118 21 114/67 (83) 95 07/30/20 01:45 119 22 120/64 (82) 96 07/30/20 01:45 18 119/76 Mechanical Ventilator 100 07/30/20 01:30 134 19 160/88 (112) 90 07/30/20 01:30 18 116/78 Mechanical Ventilator 100 07/30/20 01:15 119 21 128/63 (84) 95 07/30/20 01:15 18 130/76 Mechanical Ventilator 100 07/30/20 01:00 18 134/68 Mechanical Ventilator 100 07/30/20 01:00 118 22 116/64 (81) 93 07/30/20 00:45 118 21 119/65 (83) 94 07/30/20 00:30 117 22 114/58 (76) 95 07/30/20 00:15 118 22 109/62 (78) 94 07/30/20 00:00 Mechanical Ventilator 07/30/20 00:00 18 132/77 Mechanical Ventilator 100 07/30/20 00:00 116 07/30/20 00:00 100 07/30/20 00:00 133 28 134/73 (93) 92 07/30/20 00:00 98.9 133 28 134/73 (93) 92 07/29/20 23:45 117 23 116/54 (74) 94 07/29/20 23:30 118 21 111/62 (78) 94 07/29/20 23:19 128 27 100 07/29/20 23:15 120 21 134/87 (103) 94 07/29/20 23:00 18 101/44 Mechanical Ventilator 100 07/29/20 23:00 115 22 115/62 (79) 95 07/29/20 22:45 119 21 134/69 (90) 88 07/29/20 22:30 112 22 129/65 (86) 93 07/29/20 22:15 99 21 111/54 (73) 98 07/29/20 22:00 99 21 115/52 (73) 99 07/29/20 22:00 18 109/67 Mechanical Ventilator 100 07/29/20 21:45 99 20 115/58 (77) 99 07/29/20 21:30 98 20 103/54 (70) 99 07/29/20 21:15 99 20 111/51 (71) 99 07/29/20 21:00 18 91/44 Mechanical Ventilator 100 07/29/20 21:00 107 74/56 07/29/20 21:00 103 20 104/55 (71) 99 07/29/20 20:45 103 20 97/49 (65) 98 07/29/20 20:30 106 20 93/47 (62) 98 07/29/20 20:15 106 20 89/47 (61) 97 07/29/20 20:02 108 20 80/47 (58) 93 07/29/20 20:00 Mechanical Ventilator 07/29/20 20:00 18 76/47 Mechanical Ventilator 100 07/29/20 20:00 103 07/29/20 20:00 100 07/29/20 20:00 97.6 106 20 64/36 (45) 95 07/29/20 19:56 104 20 65/37 (46) 94 07/29/20 19:54 106 20 63/37 (46) 93 07/29/20 19:53 106 20 66/36 (46) 93 07/29/20 19:49 105 20 69/41 (50) 92 07/29/20 19:46 105 20 61/36 (44) 91 07/29/20 19:45 106 20 90 07/29/20 19:30 117 24 94/59 (71) 93 07/29/20 19:18 115 20 100 07/29/20 19:00 21 97/58 Endotracheal Tube 100 07/29/20 19:00 20 108/59 Endotracheal Tube 100 07/29/20 19:00 101.0 116 22 93/54 (67) 97 07/29/20 18:00 101.7 119 23 108/59 (75) 95 07/29/20 18:00 20 92/56 Endotracheal Tube 100 07/29/20 18:00 20 92/56 Endotracheal Tube 100 07/29/20 17:40 21 97/58 Endotracheal Tube 100 07/29/20 17:30 120 21 97/58 (71) 94 07/29/20 17:23 116 20 100 07/29/20 17:15 101.0 07/29/20 17:00 116 23 92/56 (68) 95 07/29/20 17:00 20 97/58 Endotracheal Tube 100 07/29/20 17:00 21 92/56 Endotracheal Tube 100 07/29/20 16:00 100 07/29/20 16:00 20 102/58 Endotracheal Tube 100 07/29/20 16:00 20 102/58 Endotracheal Tube 100 07/29/20 16:00 117 07/29/20 16:00 101.3 115 20 102/58 (73) 94 07/29/20 16:00 Mechanical Ventilator 07/29/20 15:01 121 21 100 07/29/20 15:00 119 20 117/61 (79) 93 07/29/20 15:00 20 117/61 Endotracheal Tube 100 07/29/20 15:00 20 117/61 Endotracheal Tube 100 07/29/20 14:00 20 131/76 Endotracheal Tube 100 07/29/20 14:00 20 131/76 Endotracheal Tube 100 07/29/20 14:00 126 20 131/76 (94) 92 07/29/20 13:30 112 19 111/62 (78) 94 07/29/20 13:30 112 23 100 07/29/20 13:00 18 102/58 Endotracheal Tube 100 07/29/20 13:00 18 102/58 Endotracheal Tube 100 07/29/20 13:00 112 22 102/58 (73) 95 07/29/20 12:30 107 21 99/57 (71) 96 Intake and Output 07/29/20 07/30/20 19:00 07:00 Intake Total 997.0 ml 1777 ml Output Total 710 ml 1750 ml Balance 287.0 ml 27 ml Free Water 100 ml IV Total 237.0 ml 1117 ml Tube Feeding 660 ml 660 ml Output Urine Total 710 ml 1750 ml Current Medications Medications (Trade) Dose Ordered Sig/Marian Route PRN Reason Start Time Stop Time Status Last Admin Dose Admin Acetaminophen (Tylenol) 650 mg Q4H PRN RECTAL Temp >100.5 07/18/20 18:30 08/17/20 18:29 07/18/20 18:40 Acetaminophen (Tylenol) 650 mg Q6H PRN ORAL For Pain 07/07/20 15:45 08/06/20 15:44 07/29/20 16:28 Acetaminophen (Tylenol) 650 mg Q6H PRN ORAL FEVER 07/07/20 16:15 08/06/20 16:14 07/30/20 06:33 Benzonatate (Tessalon Perles) 100 mg TIDPRN PRN ORAL For Cough 07/18/20 18:30 08/17/20 18:29 Cefepime HCl 2 gm/ Dextrose 55 ml @ 110 mls/hr Q12HR IVPB 07/22/20 13:00 08/04/20 14:00 07/30/20 09:31 Chlorhexidine Gluconate (Rafaela-Hex 2%) 1 applic DAILY@2000 TOPIC 07/25/20 20:00 10/23/20 19:59 07/29/20 20:56 Dextrose (Dextrose 50%) 25 ml Q30M PRN IV Hypoglycemia 07/07/20 15:45 10/05/20 15:44 Dextrose (Dextrose 50%) 50 ml Q30M PRN IV Hypoglycemia 07/07/20 15:45 10/05/20 15:44 Docusate Sodium (Colace) 100 mg TID NG 07/29/20 13:00 08/25/20 17:59 07/30/20 09:30 Enoxaparin Sodium (Lovenox) 70 mg EVERY 12 HOURS SUBQ 07/25/20 21:00 10/23/20 20:59 07/30/20 09:32 Famotidine (Pepcid I.v.) 20 mg Q12HR IVP 07/20/20 09:00 08/19/20 08:59 07/30/20 10:24 Fentanyl Citrate 250 ml @ 1 mls/hr Q24H PRN IV SEDATION 07/29/20 15:00 07/31/20 14:59 07/29/20 17:40 Fluconazole/ Sodium Chloride 200 ml @ 100 mls/hr Q24H IV 07/22/20 14:00 08/04/20 13:59 07/29/20 14:03 Insulin Aspart (NovoLOG) Q6HR SUBQ 07/26/20 12:00 10/24/20 11:59 07/30/20 05:37 Insulin Detemir (Levemir) 25 units Q12HR SUBQ 07/29/20 21:00 10/24/20 10:29 07/30/20 10:26 Methylprednisolone Sodium Succinate (Solu-MEDROL) 20 mg EVERY 6 HOURS IVP 07/22/20 12:00 10/19/20 08:59 07/30/20 11:56 Metoprolol Tartrate (Lopressor) 25 mg EVERY 12 HOURS NG 07/26/20 21:00 10/24/20 20:59 07/30/20 09:31 Midazolam HCl 200 ml @ 0 mls/hr Q24H PRN IV Agitation 07/29/20 22:45 08/05/20 22:44 07/30/20 03:02 Sorbitol (sorbitoL) 45 ml Q12HR PRN ORAL Constipation 07/30/20 09:15 08/29/20 09:14 Trimethoprim/ Sulfamethoxazole 20 ml/Dextrose 570 ml @ 380 mls/hr Q12HR IV 07/29/20 21:00 08/05/20 20:59 07/30/20 09:31 Vancomycin HCl ([facility] pharmacy to dose) 1 ea DAILY PRN MISC Per rx protocol 07/27/20 10:00 08/26/20 09:59 Vancomycin HCl 750 mg/Sodium Chloride 275 ml @ 183.333 mls/hr Q12HR@1100,2300 IVPB 07/27/20 23:00 08/01/20 22:59 07/30/20 11:56 Laboratory Tests 07/30/20 03:51: White Blood Count 21.5H, Red Blood Count 3.14L, Hemoglobin 9.0L, Hematocrit 28.8L, Mean Corpuscular Volume 92, Mean Corpuscular Hemoglobin 28.6, Mean Corpuscular Hemoglobin Concent 31.2L, Red Cell Distribution Width 14.6, Platelet Count 154, Mean Platelet Volume 10.5H, Neutrophils (%) (Auto) , Lymphocytes (%) (Auto) , Monocytes (%) (Auto) , Eosinophils (%) (Auto) , Basophils (%) (Auto) , Differential Total Cells Counted 100, Neutrophils % (Manual) 96H, Lymphocytes % (Manual) 2L, Monocytes % (Manual) 2, Eosinophils % (Manual) 0, Basophils % (Manual) 0, Band Neutrophils 0, Platelet Estimate Adequate, Platelet Morphology Normal, Anisocytosis 1+, Sodium Level 146H, Potassium Level 4.7, Chloride Level 109H, Carbon Dioxide Level 30, Anion Gap 7, Blood Urea Nitrogen 30H, Creatinine 0.8, Estimat Glomerular Filtration Rate > 60, Glucose Level 336H, Uric Acid 2.5L , Calcium Level 7.9L, Phosphorus Level 2.7, Magnesium Level 2.0, Total Bilirubin < 0.1L, Aspartate Amino Transf (AST/SGOT) 27, Alanine Aminotransferase (ALT/SGPT) 23, Alkaline Phosphatase 72, C-Reactive Protein, Quantitative 4.2H, Pro-B-Type Natriuretic Peptide 298H, Total Protein 4.8L, Albumin 1.6L, Globulin 3.2, Albumin/Globulin Ratio 0.5L 07/30/20 08:16: Arterial Blood pH 7.364, Arterial Blood Partial Pressure CO2 63.5*H, Arterial Blood Partial Pressure O2 72.2L, Arterial Blood HCO3 35.4H, Arterial Blood Oxygen Saturation 92.0L, Arterial Blood Base Excess 8.4H, Timbo Test Positive Height (Feet): 5 Height (Inches): 3.00 Weight (Pounds): 162 General Appearance: no apparent distress Cardiovascular: tachycardia Respiratory/Chest: decreased breath sounds Abdomen: distended Objective No change Anurag Bridges MD Jul 30, 2020 12:08
--- NOTE | 2020-07-30 12:55 | Pulmonology Progress Note ---
Subjective ROS Limited/Unobtainable: Yes Interval Events: S/p intubation Constitutional: Reports: no symptoms, fever, other - Qgcv=[id number] HEENT: Repors: no symptoms Respiratory: Reports: shortness of breath Gastrointestinal/Abdominal: Reports: no symptoms Psychiatric: Reports: no symptoms Skin: Reports: no symptoms Musculoskeletal: Reports: no symptoms Allergies: Coded Allergies: No Known Allergies (Unverified , 07/07/20) Objective Last 24 Hour Vital Signs Date Time Temp Pulse Resp B/P (MAP) Pulse Ox O2 Delivery O2 Flow Rate FiO2 07/30/20 12:30 120 24 116/58 (77) 90 07/30/20 12:00 Mechanical Ventilator 07/30/20 12:00 122 07/30/20 12:00 100 07/30/20 12:00 101.4 119 23 118/63 (81) 91 07/30/20 11:30 111 23 119/66 (83) 89 07/30/20 11:00 109 22 108/58 (75) 95 07/30/20 10:30 115 21 118/59 (78) 96 07/30/20 10:00 127 20 119/66 (83) 95 07/30/20 09:31 132 128/65 07/30/20 09:30 133 22 128/65 (86) 90 07/30/20 09:00 124 21 118/67 (84) 95 07/30/20 08:30 126 21 122/61 (81) 95 07/30/20 08:00 125 07/30/20 08:00 100.4 129 24 115/59 (77) 91 07/30/20 08:00 Mechanical Ventilator 07/30/20 08:00 100 07/30/20 07:30 129 22 118/70 (86) 92 07/30/20 07:11 126 21 100 07/30/20 07:03 98.9 07/30/20 07:00 125 22 94 07/30/20 06:45 124 22 102/55 (71) 95 07/30/20 06:30 22 102/58 Mechanical Ventilator 100 07/30/20 06:30 127 22 117/62 (80) 93 07/30/20 06:15 127 23 122/68 (86) 93 07/30/20 06:00 126 21 117/69 (85) 94 07/30/20 05:45 127 22 122/65 (84) 94 07/30/20 05:30 131 22 129/70 (89) 91 07/30/20 05:30 18 116/78 Mechanical Ventilator 100 07/30/20 05:15 125 22 120/62 (81) 92 07/30/20 05:00 122 21 118/70 (86) 93 07/30/20 04:45 124 22 115/63 (80) 92 07/30/20 04:30 22 136/74 Mechanical Ventilator 100 07/30/20 04:30 120 23 111/63 (79) 93 07/30/20 04:15 122 21 123/70 (87) 94 07/30/20 04:09 Mechanical Ventilator 07/30/20 04:00 122 07/30/20 04:00 99.9 124 22 133/61 (85) 94 07/30/20 04:00 100 07/30/20 03:45 122 23 121/65 (83) 95 07/30/20 03:38 125 22 100 07/30/20 03:30 119 22 117/62 (80) 94 07/30/20 03:30 18 123/77 Mechanical Ventilator 100 07/30/20 03:15 119 23 115/66 (82) 94 07/30/20 03:02 22 158/114 Mechanical Ventilator 100 07/30/20 03:00 127 25 123/70 (87) 89 07/30/20 02:45 124 22 150/114 (126) 95 07/30/20 02:30 117 22 116/69 (85) 95 07/30/20 02:30 20 120/74 Mechanical Ventilator 100 07/30/20 02:15 121 21 115/71 (86) 95 07/30/20 02:15 22 133/51 Mechanical Ventilator 100 07/30/20 02:00 22 124/83 Mechanical Ventilator 100 07/30/20 02:00 118 21 114/67 (83) 95 07/30/20 01:45 119 22 120/64 (82) 96 07/30/20 01:45 18 119/76 Mechanical Ventilator 100 07/30/20 01:30 134 19 160/88 (112) 90 07/30/20 01:30 18 116/78 Mechanical Ventilator 100 07/30/20 01:15 119 21 128/63 (84) 95 07/30/20 01:15 18 130/76 Mechanical Ventilator 100 07/30/20 01:00 18 134/68 Mechanical Ventilator 100 07/30/20 01:00 118 22 116/64 (81) 93 07/30/20 00:45 118 21 119/65 (83) 94 07/30/20 00:30 117 22 114/58 (76) 95 07/30/20 00:15 118 22 109/62 (78) 94 07/30/20 00:00 Mechanical Ventilator 07/30/20 00:00 18 132/77 Mechanical Ventilator 100 07/30/20 00:00 116 07/30/20 00:00 100 07/30/20 00:00 133 28 134/73 (93) 92 07/30/20 00:00 98.9 133 28 134/73 (93) 92 07/29/20 23:45 117 23 116/54 (74) 94 07/29/20 23:30 118 21 111/62 (78) 94 07/29/20 23:19 128 27 100 07/29/20 23:15 120 21 134/87 (103) 94 07/29/20 23:00 18 101/44 Mechanical Ventilator 100 07/29/20 23:00 115 22 115/62 (79) 95 07/29/20 22:45 119 21 134/69 (90) 88 07/29/20 22:30 112 22 129/65 (86) 93 07/29/20 22:15 99 21 111/54 (73) 98 07/29/20 22:00 99 21 115/52 (73) 99 07/29/20 22:00 18 109/67 Mechanical Ventilator 100 07/29/20 21:45 99 20 115/58 (77) 99 07/29/20 21:30 98 20 103/54 (70) 99 07/29/20 21:15 99 20 111/51 (71) 99 07/29/20 21:00 18 91/44 Mechanical Ventilator 100 07/29/20 21:00 107 74/56 07/29/20 21:00 103 20 104/55 (71) 99 07/29/20 20:45 103 20 97/49 (65) 98 07/29/20 20:30 106 20 93/47 (62) 98 07/29/20 20:15 106 20 89/47 (61) 97 07/29/20 20:02 108 20 80/47 (58) 93 07/29/20 20:00 Mechanical Ventilator 07/29/20 20:00 18 76/47 Mechanical Ventilator 100 07/29/20 20:00 103 07/29/20 20:00 100 07/29/20 20:00 97.6 106 20 64/36 (45) 95 07/29/20 19:56 104 20 65/37 (46) 94 07/29/20 19:54 106 20 63/37 (46) 93 07/29/20 19:53 106 20 66/36 (46) 93 07/29/20 19:49 105 20 69/41 (50) 92 07/29/20 19:46 105 20 61/36 (44) 91 07/29/20 19:45 106 20 90 07/29/20 19:30 117 24 94/59 (71) 93 07/29/20 19:18 115 20 100 07/29/20 19:00 21 97/58 Endotracheal Tube 100 07/29/20 19:00 20 108/59 Endotracheal Tube 100 07/29/20 19:00 101.0 116 22 93/54 (67) 97 07/29/20 18:00 101.7 119 23 108/59 (75) 95 07/29/20 18:00 20 92/56 Endotracheal Tube 100 07/29/20 18:00 20 92/56 Endotracheal Tube 100 07/29/20 17:40 21 97/58 Endotracheal Tube 100 07/29/20 17:30 120 21 97/58 (71) 94 07/29/20 17:23 116 20 100 07/29/20 17:15 101.0 07/29/20 17:00 116 23 92/56 (68) 95 07/29/20 17:00 20 97/58 Endotracheal Tube 100 07/29/20 17:00 21 92/56 Endotracheal Tube 100 07/29/20 16:00 100 07/29/20 16:00 20 102/58 Endotracheal Tube 100 07/29/20 16:00 20 102/58 Endotracheal Tube 100 07/29/20 16:00 117 07/29/20 16:00 101.3 115 20 102/58 (73) 94 07/29/20 16:00 Mechanical Ventilator 07/29/20 15:01 121 21 100 07/29/20 15:00 119 20 117/61 (79) 93 07/29/20 15:00 20 117/61 Endotracheal Tube 100 07/29/20 15:00 20 117/61 Endotracheal Tube 100 07/29/20 14:00 20 131/76 Endotracheal Tube 100 07/29/20 14:00 20 131/76 Endotracheal Tube 100 07/29/20 14:00 126 20 131/76 (94) 92 07/29/20 13:30 112 19 111/62 (78) 94 07/29/20 13:30 112 23 100 07/29/20 13:00 18 102/58 Endotracheal Tube 100 07/29/20 13:00 18 102/58 Endotracheal Tube 100 07/29/20 13:00 112 22 102/58 (73) 95 Intake and Output 07/29/20 07/30/20 19:00 07:00 Intake Total 997.0 ml 1777 ml Output Total 710 ml 1750 ml Balance 287.0 ml 27 ml Free Water 100 ml IV Total 237.0 ml 1117 ml Tube Feeding 660 ml 660 ml Output Urine Total 710 ml 1750 ml General Appearance: no acute distress HEENT: normocephalic Respiratory: decreased breath sounds Cardiovascular: normal peripheral pulses Abdomen: normal bowel sounds Laboratory Tests 07/30/20 03:51: White Blood Count 21.5H, Red Blood Count 3.14L, Hemoglobin 9.0L, Hematocrit 28.8L, Mean Corpuscular Volume 92, Mean Corpuscular Hemoglobin 28.6, Mean Corpuscular Hemoglobin Concent 31.2L, Red Cell Distribution Width 14.6, Platelet Count 154, Mean Platelet Volume 10.5H, Neutrophils (%) (Auto) , Lymphocytes (%) (Auto) , Monocytes (%) (Auto) , Eosinophils (%) (Auto) , Basophils (%) (Auto) , Differential Total Cells Counted 100, Neutrophils % (Manual) 96H, Lymphocytes % (Manual) 2L, Monocytes % (Manual) 2, Eosinophils % (Manual) 0, Basophils % (Manual) 0, Band Neutrophils 0, Platelet Estimate Adequate, Platelet Morphology Normal, Anisocytosis 1+, Sodium Level 146H, Potassium Level 4.7, Chloride Level 109H, Carbon Dioxide Level 30, Anion Gap 7, Blood Urea Nitrogen 30H, Creatinine 0.8, Estimat Glomerular Filtration Rate > 60, Glucose Level 336H, Uric Acid 2.5L , Calcium Level 7.9L, Phosphorus Level 2.7, Magnesium Level 2.0, Total Bilirubin < 0.1L, Aspartate Amino Transf (AST/SGOT) 27, Alanine Aminotransferase (ALT/SGPT) 23, Alkaline Phosphatase 72, C-Reactive Protein, Quantitative 4.2H, Pro-B-Type Natriuretic Peptide 298H, Total Protein 4.8L, Albumin 1.6L, Globulin 3.2, Albumin/Globulin Ratio 0.5L 07/30/20 08:16: Arterial Blood pH 7.364, Arterial Blood Partial Pressure CO2 63.5*H, Arterial Blood Partial Pressure O2 72.2L, Arterial Blood HCO3 35.4H, Arterial Blood Oxygen Saturation 92.0L, Arterial Blood Base Excess 8.4H, Timbo Test Positive Current Medications Medications (Trade) Dose Ordered Sig/Marian Route PRN Reason Start Time Stop Time Status Last Admin Dose Admin Acetaminophen (Tylenol) 650 mg Q4H PRN RECTAL Temp >100.5 07/18/20 18:30 08/17/20 18:29 07/18/20 18:40 Acetaminophen (Tylenol) 650 mg Q6H PRN ORAL For Pain 07/07/20 15:45 08/06/20 15:44 07/29/20 16:28 Acetaminophen (Tylenol) 650 mg Q6H PRN ORAL FEVER 07/07/20 16:15 08/06/20 16:14 07/30/20 12:36 Benzonatate (Tessalon Perles) 100 mg TIDPRN PRN ORAL For Cough 07/18/20 18:30 08/17/20 18:29 Cefepime HCl 2 gm/ Dextrose 55 ml @ 110 mls/hr Q12HR IVPB 07/22/20 13:00 08/04/20 14:00 07/30/20 09:31 Chlorhexidine Gluconate (Rafaela-Hex 2%) 1 applic DAILY@2000 TOPIC 07/25/20 20:00 10/23/20 19:59 07/29/20 20:56 Dextrose (Dextrose 50%) 25 ml Q30M PRN IV Hypoglycemia 07/07/20 15:45 10/05/20 15:44 Dextrose (Dextrose 50%) 50 ml Q30M PRN IV Hypoglycemia 07/07/20 15:45 10/05/20 15:44 Docusate Sodium (Colace) 100 mg TID NG 07/29/20 13:00 08/25/20 17:59 07/30/20 09:30 Enoxaparin Sodium (Lovenox) 70 mg EVERY 12 HOURS SUBQ 07/25/20 21:00 10/23/20 20:59 07/30/20 09:32 Famotidine (Pepcid I.v.) 20 mg Q12HR IVP 07/20/20 09:00 08/19/20 08:59 07/30/20 10:24 Fentanyl Citrate 250 ml @ 1 mls/hr Q24H PRN IV SEDATION 07/29/20 15:00 07/31/20 14:59 07/29/20 17:40 Fluconazole/ Sodium Chloride 200 ml @ 100 mls/hr Q24H IV 07/22/20 14:00 08/04/20 13:59 07/29/20 14:03 Insulin Aspart (NovoLOG) Q6HR SUBQ 07/26/20 12:00 10/24/20 11:59 07/30/20 12:20 Insulin Detemir (Levemir) 25 units Q12HR SUBQ 07/29/20 21:00 10/24/20 10:29 07/30/20 10:26 Methylprednisolone Sodium Succinate (Solu-MEDROL) 20 mg EVERY 6 HOURS IVP 07/22/20 12:00 10/19/20 08:59 07/30/20 11:56 Metoprolol Tartrate (Lopressor) 25 mg EVERY 12 HOURS NG 07/26/20 21:00 10/24/20 20:59 07/30/20 09:31 Midazolam HCl 200 ml @ 0 mls/hr Q24H PRN IV Agitation 07/29/20 22:45 08/05/20 22:44 07/30/20 03:02 Sorbitol (sorbitoL) 45 ml Q12HR PRN ORAL Constipation 07/30/20 09:15 08/29/20 09:14 Trimethoprim/ Sulfamethoxazole 20 ml/Dextrose 570 ml @ 380 mls/hr Q12HR IV 07/29/20 21:00 08/05/20 20:59 07/30/20 09:31 Vancomycin HCl (Vanco pharmacy to dose) 1 ea DAILY PRN MISC Per rx protocol 07/27/20 10:00 08/26/20 09:59 Vancomycin HCl 750 mg/Sodium Chloride 275 ml @ 183.333 mls/hr Q12HR@1100,2300 IVPB 07/27/20 23:00 08/01/20 22:59 07/30/20 11:56 Assessment/Plan Assessment/Plan 1. COVID-19 pneumonia. - COVID-19 PCR positive (07/07) -> continue isolation - s/p remdexsivir - s/p azithromycin - CXR (07/13) no significant change - f/u COVID-19 (07/29) 2. Hypoxemic respiratory distress - s/p decadron (07/08-07/17) - now on Solu-Medrol - intubated; on AC mode - FiO2 100%; will increase PEEP 7->8 -> 10 -attempt proning 3. Hypertension. 4. Diabetes mellitus. -on insulin sliding scale 5. DVT ppx - on Lovenox, full dose empirically 6. Sputum Cx shows pseudomonas and cony - on Abx 7. Suspect bacterial infection given leukocytosis - ordered fungal culture, BCx (07/20) - on empiric Diflucan; WBC continues to be high - On Cefepime - also on IV Vanco - added IV Bactrim for possible PJP 8. Pulmonary edema -Off lasix gtt - CXR improved Discussed with bedside RN. Discussed with family On IV vanco ( WBC higher) On Levemir The care of this patient was discussed with my supervising physician Time spent for this encounter was approximately 31 minutes Milton Howard Jul 30, 2020 12:55
[2020-07-30] MEDS: FLUCONAZOLE 400 MG/200 ML IV SCH (13:59)
--- NOTE | 2020-07-30 15:45 | NUR ---
NURSE NOTES: patient repositioned and oral care provided, remains on sedation at rass scale at -2 using fentanyl at 100mcg/hr and versed at 10mg/hr
--- NOTE | 2020-07-30 16:45 | NUR ---
NURSE NOTES: Moderate watery stool with consistency of yogurt, patient tolerated repositioning with no episodes of desaturations or sob
--- NOTE | 2020-07-30 18:58 | General Progress Note ---
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 (-) BM Objective Last 24 Hour Vital Signs Date Time Temp Pulse Resp B/P (MAP) Pulse Ox O2 Delivery O2 Flow Rate FiO2 07/30/20 18:00 20 95/58 Mechanical Ventilator 100 07/30/20 18:00 20 95/56 Mechanical Ventilator 100 07/30/20 18:00 112 20 95/58 (70) 97 07/30/20 17:55 115 22 100 07/30/20 17:30 111 20 94/60 (71) 96 07/30/20 17:00 23 113/56 Mechanical Ventilator 100 07/30/20 17:00 23 113/56 Mechanical Ventilator 100 07/30/20 17:00 114 20 114/65 (81) 91 07/30/20 16:30 118 21 116/62 (80) 94 07/30/20 16:01 100.2 120 21 118/57 (77) 91 07/30/20 16:00 100 07/30/20 16:00 23 118/57 Mechanical Ventilator 100 07/30/20 16:00 23 118/57 Mechanical Ventilator 100 07/30/20 16:00 Mechanical Ventilator 07/30/20 16:00 120 21 118/57 (77) 91 07/30/20 16:00 118 07/30/20 15:54 119 22 100 07/30/20 15:30 118 21 116/62 (80) 94 07/30/20 15:00 24 110/53 Mechanical Ventilator 100 07/30/20 15:00 24 110/53 Mechanical Ventilator 100 07/30/20 15:00 119 23 110/53 (72) 90 07/30/20 14:30 120 24 107/55 (72) 91 07/30/20 14:00 121 24 113/58 (76) 91 07/30/20 14:00 23 115/57 Mechanical Ventilator 100 07/30/20 14:00 23 113/58 Mechanical Ventilator 100 07/30/20 13:53 130 24 100 07/30/20 13:45 101.1 07/30/20 13:30 133 25 126/68 (87) 83 07/30/20 13:00 25 111/59 Mechanical Ventilator 100 07/30/20 13:00 25 111/59 Mechanical Ventilator 100 07/30/20 13:00 126 24 111/59 (76) 84 07/30/20 12:30 120 24 116/58 (77) 90 07/30/20 12:00 Mechanical Ventilator 07/30/20 12:00 122 07/30/20 12:00 25 118/63 Mechanical Ventilator 100 07/30/20 12:00 100 07/30/20 12:00 101.4 119 23 118/63 (81) 91 07/30/20 11:30 111 23 119/66 (83) 89 07/30/20 11:18 131 25 100 07/30/20 11:00 109 22 108/58 (75) 95 07/30/20 10:30 115 21 118/59 (78) 96 07/30/20 10:00 127 20 119/66 (83) 95 07/30/20 09:31 132 128/65 07/30/20 09:30 133 22 128/65 (86) 90 07/30/20 09:04 122 25 100 07/30/20 09:00 124 21 118/67 (84) 95 07/30/20 08:30 126 21 122/61 (81) 95 07/30/20 08:00 125 07/30/20 08:00 100.4 129 24 115/59 (77) 91 07/30/20 08:00 Mechanical Ventilator 07/30/20 08:00 100 07/30/20 07:30 129 22 118/70 (86) 92 07/30/20 07:11 126 21 100 07/30/20 07:03 98.9 07/30/20 07:00 125 22 94 07/30/20 06:45 124 22 102/55 (71) 95 07/30/20 06:30 22 102/58 Mechanical Ventilator 100 07/30/20 06:30 127 22 117/62 (80) 93 07/30/20 06:15 127 23 122/68 (86) 93 07/30/20 06:00 126 21 117/69 (85) 94 07/30/20 05:45 127 22 122/65 (84) 94 07/30/20 05:30 131 22 129/70 (89) 91 07/30/20 05:30 18 116/78 Mechanical Ventilator 100 07/30/20 05:15 125 22 120/62 (81) 92 07/30/20 05:00 122 21 118/70 (86) 93 07/30/20 04:45 124 22 115/63 (80) 92 07/30/20 04:30 22 136/74 Mechanical Ventilator 100 07/30/20 04:30 120 23 111/63 (79) 93 07/30/20 04:15 122 21 123/70 (87) 94 07/30/20 04:09 Mechanical Ventilator 07/30/20 04:00 122 07/30/20 04:00 99.9 124 22 133/61 (85) 94 07/30/20 04:00 100 07/30/20 03:45 122 23 121/65 (83) 95 07/30/20 03:38 125 22 100 07/30/20 03:30 119 22 117/62 (80) 94 07/30/20 03:30 18 123/77 Mechanical Ventilator 100 07/30/20 03:15 119 23 115/66 (82) 94 07/30/20 03:02 22 158/114 Mechanical Ventilator 100 07/30/20 03:00 127 25 123/70 (87) 89 07/30/20 02:45 124 22 150/114 (126) 95 07/30/20 02:30 117 22 116/69 (85) 95 07/30/20 02:30 20 120/74 Mechanical Ventilator 100 07/30/20 02:15 121 21 115/71 (86) 95 07/30/20 02:15 22 133/51 Mechanical Ventilator 100 07/30/20 02:00 22 124/83 Mechanical Ventilator 100 07/30/20 02:00 118 21 114/67 (83) 95 07/30/20 01:45 119 22 120/64 (82) 96 07/30/20 01:45 18 119/76 Mechanical Ventilator 100 07/30/20 01:30 134 19 160/88 (112) 90 07/30/20 01:30 18 116/78 Mechanical Ventilator 100 07/30/20 01:15 119 21 128/63 (84) 95 07/30/20 01:15 18 130/76 Mechanical Ventilator 100 07/30/20 01:00 18 134/68 Mechanical Ventilator 100 07/30/20 01:00 118 22 116/64 (81) 93 07/30/20 00:45 118 21 119/65 (83) 94 07/30/20 00:30 117 22 114/58 (76) 95 07/30/20 00:15 118 22 109/62 (78) 94 07/30/20 00:00 Mechanical Ventilator 07/30/20 00:00 18 132/77 Mechanical Ventilator 100 07/30/20 00:00 116 07/30/20 00:00 100 07/30/20 00:00 133 28 134/73 (93) 92 07/30/20 00:00 98.9 133 28 134/73 (93) 92 07/29/20 23:45 117 23 116/54 (74) 94 07/29/20 23:30 118 21 111/62 (78) 94 07/29/20 23:19 128 27 100 07/29/20 23:15 120 21 134/87 (103) 94 07/29/20 23:00 18 101/44 Mechanical Ventilator 100 07/29/20 23:00 115 22 115/62 (79) 95 07/29/20 22:45 119 21 134/69 (90) 88 07/29/20 22:30 112 22 129/65 (86) 93 07/29/20 22:15 99 21 111/54 (73) 98 07/29/20 22:00 99 21 115/52 (73) 99 07/29/20 22:00 18 109/67 Mechanical Ventilator 100 07/29/20 21:45 99 20 115/58 (77) 99 07/29/20 21:30 98 20 103/54 (70) 99 07/29/20 21:15 99 20 111/51 (71) 99 07/29/20 21:00 18 91/44 Mechanical Ventilator 100 07/29/20 21:00 107 74/56 07/29/20 21:00 103 20 104/55 (71) 99 07/29/20 20:45 103 20 97/49 (65) 98 07/29/20 20:30 106 20 93/47 (62) 98 07/29/20 20:15 106 20 89/47 (61) 97 07/29/20 20:02 108 20 80/47 (58) 93 07/29/20 20:00 Mechanical Ventilator 07/29/20 20:00 18 76/47 Mechanical Ventilator 100 07/29/20 20:00 103 07/29/20 20:00 100 07/29/20 20:00 97.6 106 20 64/36 (45) 95 07/29/20 19:56 104 20 65/37 (46) 94 07/29/20 19:54 106 20 63/37 (46) 93 07/29/20 19:53 106 20 66/36 (46) 93 07/29/20 19:49 105 20 69/41 (50) 92 07/29/20 19:46 105 20 61/36 (44) 91 07/29/20 19:45 106 20 90 07/29/20 19:30 117 24 94/59 (71) 93 07/29/20 19:18 115 20 100 07/29/20 19:00 21 97/58 Endotracheal Tube 100 07/29/20 19:00 20 108/59 Endotracheal Tube 100 07/29/20 19:00 101.0 116 22 93/54 (67) 97 Intake and Output 07/29/20 07/30/20 19:00 07:00 Intake Total 997.0 ml 1777 ml Output Total 710 ml 1750 ml Balance 287.0 ml 27 ml Free Water 100 ml IV Total 237.0 ml 1117 ml Tube Feeding 660 ml 660 ml Output Urine Total 710 ml 1750 ml Laboratory Tests 07/30/20 03:51: White Blood Count 21.5H, Red Blood Count 3.14L, Hemoglobin 9.0L, Hematocrit 28.8L, Mean Corpuscular Volume 92, Mean Corpuscular Hemoglobin 28.6, Mean Corpuscular Hemoglobin Concent 31.2L, Red Cell Distribution Width 14.6, Platelet Count 154, Mean Platelet Volume 10.5H, Neutrophils (%) (Auto) , Lymphocytes (%) (Auto) , Monocytes (%) (Auto) , Eosinophils (%) (Auto) , Basophils (%) (Auto) , Differential Total Cells Counted 100, Neutrophils % (Manual) 96H, Lymphocytes % (Manual) 2L, Monocytes % (Manual) 2, Eosinophils % (Manual) 0, Basophils % (Manual) 0, Band Neutrophils 0, Platelet Estimate Adequate, Platelet Morphology Normal, Anisocytosis 1+, Sodium Level 146H, Potassium Level 4.7, Chloride Level 109H, Carbon Dioxide Level 30, Anion Gap 7, Blood Urea Nitrogen 30H, Creatinine 0.8, Estimat Glomerular Filtration Rate > 60, Glucose Level 336H, Uric Acid 2.5L , Calcium Level 7.9L, Phosphorus Level 2.7, Magnesium Level 2.0, Total Bilirubin < 0.1L, Aspartate Amino Transf (AST/SGOT) 27, Alanine Aminotransferase (ALT/SGPT) 23, Alkaline Phosphatase 72, C-Reactive Protein, Quantitative 4.2H, Pro-B-Type Natriuretic Peptide 298H, Total Protein 4.8L, Albumin 1.6L, Globulin 3.2, Albumin/Globulin Ratio 0.5L 07/30/20 08:16: Arterial Blood pH 7.364, Arterial Blood Partial Pressure CO2 63.5*H, Arterial Blood Partial Pressure O2 72.2L, Arterial Blood HCO3 35.4H, Arterial Blood Oxygen Saturation 92.0L, Arterial Blood Base Excess 8.4H, Timbo Test Positive 07/30/20 09:56: POC Whole Blood Glucose 220H 07/30/20 12:06: POC Whole Blood Glucose 273H Height (Feet): 5 Height (Inches): 3.00 Weight (Pounds): 162 Objective Mildly obese woman NAD, comfortable NCAT (+) ETT (+) OGT coarse BS RR abd soft, obese non edema Assessment/Plan Status: not improved Assessment/Plan: Assessment - COVID infection - PNA, resp failure - dysphagia - CHF - DM - leukocytosis on steroids Recommendations - Continue TF - elevate HOB - follow labs and exam - supportive care - Sorbitol x 1 Holly Rehman MD Jul 30, 2020 18:58
--- NOTE | 2020-07-30 19:30 | NUR ---
Received report from LIANA Clark and assumed care of patient.
--- NOTE | 2020-07-30 19:42 | NUR ---
NURSE HAND-OFF REPORT: Latest Vital Signs: Temperature 100.2 , Pulse 113 , B/P 107 /57 , Respiratory Rate 21 , O2 SAT 97 , Mechanical Ventilator, O2 Flow Rate . Vital Sign Comment: EKG Rhythm: Sinus Tachycardia Rhythm change?: N MD Notified?: N - MD Response: Latest Plaza Fall Score: 35 Fall Risk: Medium Risk Safety Measures: Call light Within Reach, Bed Alarm Zone 3, Side Rails Side Rails x2, Bed position Low and Locked. Fall Precautions: Yellow Socks Yellow Gown Door Sign Patient Fall Education Report given to LIANA Echeverria.
[2020-07-30] MEDS: Dyna-Hex 2% Top Sol 2oz TOPIC SCH (20:19)
--- NOTE | 2020-07-30 20:30 | NUR ---
Assessment complete. Pt B lungs CTA throughout. Patient slightly febrile, will monitor. All other VS stable. Repositioned and oral care completed. Will continue to monitor.
--- NOTE | 2020-07-30 22:30 | NUR ---
Pt not at a Rass -2, drowsy and fighting vent. Increased sedation, see IV spreadsheet. Pt VSS, repositioned and provided oral care. Temp decreased on own without intervention. Will continue to monitor.
[2020-07-31] VITALS (70 sets, daily range): BP systolic 80–130; BP diastolic 43–83
[2020-07-31] MEDS: Solu-MEDROL 40mg Inj IVP SCH ×5 (00:20→23:33)
[2020-07-31] MEDS: Versed 100mg/NS 200ml 200 ML IV PRN ×3 (00:22→21:00)
[2020-07-31] MEDS: fentaNYL 2500mcg/NS 250ml 250 ML IV PRN ×2 (00:23→17:45)
[2020-07-31] MEDS: NovoLOG Insulin Flexpen SUBQ SCH ×5 (00:24→23:33)
--- NOTE | 2020-07-31 00:30 | NUR ---
Pt remains stable. Midnight assessment completed with no changes. repositioned and oral care provided. Will continue to monitor.
--- NOTE | 2020-07-31 02:30 | NUR ---
Pt remains stable. No changes. repositioned and oral care provided.
--- NOTE | 2020-07-31 04:15 | NUR ---
Patient given complete bath. Pt autoregulating own temperature without intervention. While bathing removed rectal thermometer probe as patient was no longer on cooling blanket (does not appear to need to be placed back onto it, therefore removed). When removing the rectal thermometer probe, noted area of concern to right buttock/toward greater trochanter region where probe was taped to skin reveals area that appears to be a DTI. Placed into assessment area of charting so that nurse can monitor. If area dissolves then can remove from the assessment. Oral care and repositioning done. Will continue to monitor.
--- NOTE | 2020-07-31 06:15 | NUR ---
patient remains stable, oral care provided. Will continue to monitor the patient.
--- NOTE | 2020-07-31 07:28 | NUR ---
Report given to LIANA Faith who assumed care of patient.
--- NOTE | 2020-07-31 07:38 | General Progress Note ---
Subjective ROS Limited/Unobtainable: No Allergies: Coded Allergies: No Known Allergies (Unverified , 07/07/20) Subjective no event over night had BM tolerating TF Objective Last 24 Hour Vital Signs Date Time Temp Pulse Resp B/P (MAP) Pulse Ox O2 Delivery O2 Flow Rate FiO2 07/31/20 06:00 20 100/52 Mechanical Ventilator 100 07/31/20 06:00 20 100/52 Mechanical Ventilator 100 07/31/20 06:00 103 20 99/56 (70) 100 07/31/20 05:45 103 20 100/52 (68) 100 07/31/20 05:30 105 21 99/58 (72) 100 07/31/20 05:22 107 20 100 07/31/20 05:15 107 20 104/54 (71) 100 07/31/20 05:00 20 106/57 Mechanical Ventilator 100 07/31/20 05:00 20 106/57 Mechanical Ventilator 100 07/31/20 05:00 109 20 106/57 (73) 100 07/31/20 04:45 109 20 98/61 (73) 100 07/31/20 04:30 112 21 108/56 (73) 94 07/31/20 04:15 105 21 100/53 (69) 100 07/31/20 04:00 99.3 106 21 101/51 (68) 100 07/31/20 04:00 100 07/31/20 04:00 20 101/51 Mechanical Ventilator 100 07/31/20 04:00 21 101/51 Mechanical Ventilator 100 07/31/20 04:00 107 07/31/20 04:00 Mechanical Ventilator 07/31/20 03:45 106 21 98/50 (66) 100 07/31/20 03:30 107 21 107/83 (91) 100 07/31/20 03:29 113 25 100 07/31/20 03:15 109 21 100/53 (69) 100 07/31/20 03:00 20 106/51 Mechanical Ventilator 100 07/31/20 03:00 20 106/51 Mechanical Ventilator 100 07/31/20 03:00 110 20 106/51 (69) 100 07/31/20 02:45 112 20 102/54 (70) 99 07/31/20 02:30 99.7 115 20 97/56 (70) 98 07/31/20 02:30 25 108/56 Mechanical Ventilator 100 07/31/20 02:15 119 25 130/71 (90) 82 07/31/20 02:00 118 25 108/56 (73) 82 07/31/20 02:00 25 108/56 Mechanical Ventilator 100 07/31/20 02:00 25 108/56 Mechanical Ventilator 100 07/31/20 01:45 118 24 112/55 (74) 83 07/31/20 01:30 116 25 109/56 (73) 86 07/31/20 01:15 112 22 106/57 (73) 91 07/31/20 01:04 110 22 100 07/31/20 01:00 99.3 108 21 100/54 (69) 93 07/31/20 01:00 21 100/54 Mechanical Ventilator 100 07/31/20 01:00 21 100/54 Mechanical Ventilator 100 07/31/20 00:45 111 21 102/53 (69) 93 07/31/20 00:30 113 24 106/53 (70) 93 07/31/20 00:23 22 112/57 Mechanical Ventilator 100 07/31/20 00:22 22 112/57 Mechanical Ventilator 100 07/31/20 00:15 115 20 112/57 (75) 93 07/31/20 00:00 109 07/31/20 00:00 Mechanical Ventilator 07/31/20 00:00 100 07/31/20 00:00 23 120/54 Mechanical Ventilator 100 07/31/20 00:00 23 120/54 Mechanical Ventilator 100 07/31/20 00:00 114 23 120/54 (76) 89 07/30/20 23:45 112 23 110/56 (74) 92 07/30/20 23:30 110 21 105/55 (72) 96 07/30/20 23:21 109 20 100 07/30/20 23:15 107 22 94/62 (73) 96 07/30/20 23:00 22 100/55 Mechanical Ventilator 100 07/30/20 23:00 22 100/55 Mechanical Ventilator 100 07/30/20 23:00 98.3 106 22 100/55 (70) 95 07/30/20 22:45 110 21 104/57 (73) 94 07/30/20 22:30 109 20 105/53 (70) 95 07/30/20 22:15 107 21 108/55 (72) 96 07/30/20 22:00 103 21 100/54 (69) 96 07/30/20 22:00 21 100/54 Mechanical Ventilator 100 07/30/20 22:00 21 100/54 Mechanical Ventilator 100 07/30/20 21:45 104 21 98/50 (66) 96 07/30/20 21:30 102 20 96/54 (68) 96 07/30/20 21:15 104 21 103/58 (73) 95 07/30/20 21:01 105 21 100 07/30/20 21:00 106 23 102/50 (67) 95 07/30/20 21:00 23 102/50 Mechanical Ventilator 100 07/30/20 21:00 23 102/50 Mechanical Ventilator 100 07/30/20 21:00 110 96/52 07/30/20 20:45 109 21 107/59 (75) 95 07/30/20 20:30 111 21 107/58 (74) 95 07/30/20 20:15 110 21 97/57 (70) 94 07/30/20 20:00 100 07/30/20 20:00 21 94/54 Mechanical Ventilator 100 07/30/20 20:00 21 94/54 Mechanical Ventilator 100 07/30/20 20:00 109 07/30/20 20:00 Mechanical Ventilator 07/30/20 20:00 100.4 110 21 94/54 (67) 94 07/30/20 19:45 111 21 94/53 (67) 95 07/30/20 19:30 120 21 117/63 (81) 88 07/30/20 19:26 113 21 100 07/30/20 19:00 21 107/57 Mechanical Ventilator 100 07/30/20 19:00 21 107/57 Mechanical Ventilator 100 07/30/20 19:00 114 20 107/57 (74) 97 07/30/20 18:30 110 20 103/55 (71) 98 07/30/20 18:00 20 95/58 Mechanical Ventilator 100 07/30/20 18:00 20 95/56 Mechanical Ventilator 100 07/30/20 18:00 112 20 95/58 (70) 97 07/30/20 17:55 115 22 100 07/30/20 17:30 111 20 94/60 (71) 96 07/30/20 17:00 23 113/56 Mechanical Ventilator 100 07/30/20 17:00 23 113/56 Mechanical Ventilator 100 07/30/20 17:00 114 20 114/65 (81) 91 07/30/20 16:30 118 21 116/62 (80) 94 07/30/20 16:01 100.2 120 21 118/57 (77) 91 07/30/20 16:00 100 07/30/20 16:00 23 118/57 Mechanical Ventilator 100 07/30/20 16:00 23 118/57 Mechanical Ventilator 100 07/30/20 16:00 Mechanical Ventilator 07/30/20 16:00 120 21 118/57 (77) 91 07/30/20 16:00 118 07/30/20 15:54 119 22 100 07/30/20 15:30 118 21 116/62 (80) 94 07/30/20 15:00 24 110/53 Mechanical Ventilator 100 07/30/20 15:00 24 110/53 Mechanical Ventilator 100 07/30/20 15:00 119 23 110/53 (72) 90 07/30/20 14:30 120 24 107/55 (72) 91 07/30/20 14:00 121 24 113/58 (76) 91 07/30/20 14:00 23 115/57 Mechanical Ventilator 100 07/30/20 14:00 23 113/58 Mechanical Ventilator 100 07/30/20 13:53 130 24 100 07/30/20 13:45 101.1 07/30/20 13:30 133 25 126/68 (87) 83 07/30/20 13:00 25 111/59 Mechanical Ventilator 100 07/30/20 13:00 25 111/59 Mechanical Ventilator 100 07/30/20 13:00 126 24 111/59 (76) 84 07/30/20 12:30 120 24 116/58 (77) 90 07/30/20 12:00 Mechanical Ventilator 07/30/20 12:00 122 07/30/20 12:00 25 118/63 Mechanical Ventilator 100 07/30/20 12:00 25 118/63 Mechanical Ventilator 100 07/30/20 12:00 100 07/30/20 12:00 101.4 119 23 118/63 (81) 91 07/30/20 11:30 111 23 119/66 (83) 89 07/30/20 11:18 131 25 100 07/30/20 11:00 109 22 108/58 (75) 95 07/30/20 11:00 23 108/58 Mechanical Ventilator 100 07/30/20 11:00 23 108/58 Mechanical Ventilator 100 07/30/20 10:30 115 21 118/59 (78) 96 07/30/20 10:00 21 119/66 Mechanical Ventilator 100 07/30/20 10:00 21 119/66 Mechanical Ventilator 100 07/30/20 10:00 127 20 119/66 (83) 95 07/30/20 09:31 132 128/65 07/30/20 09:30 133 22 128/65 (86) 90 07/30/20 09:04 122 25 100 07/30/20 09:00 124 21 118/67 (84) 95 07/30/20 09:00 22 118/67 Mechanical Ventilator 100 07/30/20 09:00 22 118/67 Mechanical Ventilator 100 07/30/20 08:30 126 21 122/61 (81) 95 07/30/20 08:00 125 07/30/20 08:00 100.4 129 24 115/59 (77) 91 07/30/20 08:00 Mechanical Ventilator 07/30/20 08:00 23 115/59 Mechanical Ventilator 100 07/30/20 08:00 23 115/59 Mechanical Ventilator 100 07/30/20 08:00 100 Intake and Output 07/30/20 07/31/20 19:00 07:00 Intake Total 2430.3333 ml 1176.25 ml Output Total 1425 ml 1200 ml Balance 1005.3333 ml -23.75 ml Free Water 260 ml 220 ml IV Total 1440.3333 ml 351.25 ml Tube Feeding 660 ml 605 ml Other 70 ml Output Urine Total 1425 ml 1200 ml # Bowel Movements 1 Laboratory Tests 07/30/20 08:16: Arterial Blood pH 7.364, Arterial Blood Partial Pressure CO2 63.5*H, Arterial Blood Partial Pressure O2 72.2L, Arterial Blood HCO3 35.4H, Arterial Blood Oxygen Saturation 92.0L, Arterial Blood Base Excess 8.4H, Timbo Test Positive 07/30/20 09:56: POC Whole Blood Glucose 220H 07/30/20 12:06: POC Whole Blood Glucose 273H 07/30/20 18:14: POC Whole Blood Glucose 224H 07/30/20 20:27: POC Whole Blood Glucose 229H 07/31/20 00:00: POC Whole Blood Glucose 305H Height (Feet): 5 Height (Inches): 3.00 Weight (Pounds): 162 General Appearance: lethargic EENT: normal ENT inspection Neck: supple Cardiovascular: normal rate Respiratory/Chest: decreased breath sounds Abdomen: hypoactive bowel sounds Extremities: non-tender Assessment/Plan Problem List: (1) Dysphagia ICD Codes: R13.10 - Dysphagia, unspecified SNOMED: 36211575, 903373064 (2) COVID-19 virus infection ICD Codes: U07.1 - COVID-19 SNOMED: 313103795 (3) HTN (hypertension) ICD Codes: I10 - Essential (primary) hypertension SNOMED: 74122539 (4) DMII (diabetes mellitus, type 2) ICD Codes: E11.9 - Type 2 diabetes mellitus without complications SNOMED: 44661414 Status: not improved Assessment/Plan: coverage note for dr Malcolm intubated NGTF DM control pending ID re evaluation improving WBC fu pulm and cardiology recs will fu Steffen De Luna MD Jul 31, 2020 07:38
[2020-07-31] MEDS: Levemir Flexpen SUBQ SCH ×2 (09:00→20:30)
[2020-07-31] MEDS: Trimethoprim/Sulfamethoxazole 20 ML in D5W 500ml 550 ML IV SCH ×2 (09:02→20:40)
[2020-07-31] MEDS: Cefepime HCl 2 GM in D5W 55 ML IVPB SCH ×2 (09:02→20:40)
[2020-07-31] MEDS: Docusate 100mg/10ml Liq NG SCH ×3 (09:02→17:46)
[2020-07-31] MEDS: Enoxaparin 80mg Inj SUBQ SCH ×2 (09:03→20:41)
[2020-07-31] MEDS: Vancomycin 750mg/NS 275ml IVPB SCH ×4 (11:09→22:24)
--- NOTE | 2020-07-31 11:45 | Pulmonology Progress Note ---
Subjective ROS Limited/Unobtainable: No Interval Events: S/p intubation Constitutional: Reports: no symptoms, fever, other - Tmax=99.9 HEENT: Repors: no symptoms Respiratory: Reports: shortness of breath Gastrointestinal/Abdominal: Reports: no symptoms Psychiatric: Reports: no symptoms Skin: Reports: no symptoms Musculoskeletal: Reports: no symptoms Allergies: Coded Allergies: No Known Allergies (Unverified , 07/07/20) Objective Last 24 Hour Vital Signs Date Time Temp Pulse Resp B/P (MAP) Pulse Ox O2 Delivery O2 Flow Rate FiO2 07/31/20 11:00 91 22 94/54 (67) 94 07/31/20 10:30 94 18 99/58 (72) 93 07/31/20 10:00 93 20 94/54 (67) 93 07/31/20 09:10 104 21 85 07/31/20 09:02 98 97/50 07/31/20 09:00 97 20 97/50 (66) 07/31/20 08:30 99 20 101/54 (70) 07/31/20 08:00 99.9 99 20 96/51 (66) 100 07/31/20 08:00 100 07/31/20 08:00 98 07/31/20 07:35 98 22 100 07/31/20 07:30 99 21 97/56 (70) 100 07/31/20 07:00 101 21 99/58 (72) 100 07/31/20 06:00 20 100/52 Mechanical Ventilator 100 07/31/20 06:00 20 100/52 Mechanical Ventilator 100 07/31/20 06:00 103 20 99/56 (70) 100 07/31/20 05:45 103 20 100/52 (68) 100 07/31/20 05:30 105 21 99/58 (72) 100 07/31/20 05:22 107 20 100 07/31/20 05:15 107 20 104/54 (71) 100 07/31/20 05:00 20 106/57 Mechanical Ventilator 100 07/31/20 05:00 20 106/57 Mechanical Ventilator 100 07/31/20 05:00 109 20 106/57 (73) 100 07/31/20 04:45 109 20 98/61 (73) 100 07/31/20 04:30 112 21 108/56 (73) 94 07/31/20 04:15 105 21 100/53 (69) 100 07/31/20 04:00 99.3 106 21 101/51 (68) 100 07/31/20 04:00 100 07/31/20 04:00 20 101/51 Mechanical Ventilator 100 07/31/20 04:00 21 101/51 Mechanical Ventilator 100 07/31/20 04:00 107 07/31/20 04:00 Mechanical Ventilator 07/31/20 03:45 106 21 98/50 (66) 100 07/31/20 03:30 107 21 107/83 (91) 100 07/31/20 03:29 113 25 100 07/31/20 03:15 109 21 100/53 (69) 100 07/31/20 03:00 20 106/51 Mechanical Ventilator 100 07/31/20 03:00 20 106/51 Mechanical Ventilator 100 07/31/20 03:00 110 20 106/51 (69) 100 07/31/20 02:45 112 20 102/54 (70) 99 07/31/20 02:30 99.7 115 20 97/56 (70) 98 07/31/20 02:30 25 108/56 Mechanical Ventilator 100 07/31/20 02:15 119 25 130/71 (90) 82 07/31/20 02:00 118 25 108/56 (73) 82 07/31/20 02:00 25 108/56 Mechanical Ventilator 100 07/31/20 02:00 25 108/56 Mechanical Ventilator 100 07/31/20 01:45 118 24 112/55 (74) 83 07/31/20 01:30 116 25 109/56 (73) 86 07/31/20 01:15 112 22 106/57 (73) 91 07/31/20 01:04 110 22 100 07/31/20 01:00 99.3 108 21 100/54 (69) 93 07/31/20 01:00 21 100/54 Mechanical Ventilator 100 07/31/20 01:00 21 100/54 Mechanical Ventilator 100 07/31/20 00:45 111 21 102/53 (69) 93 07/31/20 00:30 113 24 106/53 (70) 93 07/31/20 00:23 22 112/57 Mechanical Ventilator 100 07/31/20 00:22 22 112/57 Mechanical Ventilator 100 3/1/21 00:15 115 20 112/57 (75) 93 07/31/20 00:00 109 07/31/20 00:00 Mechanical Ventilator 07/31/20 00:00 100 07/31/20 00:00 23 120/54 Mechanical Ventilator 100 07/31/20 00:00 23 120/54 Mechanical Ventilator 100 07/31/20 00:00 114 23 120/54 (76) 89 07/30/20 23:45 112 23 110/56 (74) 92 07/30/20 23:30 110 21 105/55 (72) 96 07/30/20 23:21 109 20 100 07/30/20 23:15 107 22 94/62 (73) 96 07/30/20 23:00 22 100/55 Mechanical Ventilator 100 07/30/20 23:00 22 100/55 Mechanical Ventilator 100 07/30/20 23:00 98.3 106 22 100/55 (70) 95 07/30/20 22:45 110 21 104/57 (73) 94 07/30/20 22:30 109 20 105/53 (70) 95 07/30/20 22:15 107 21 108/55 (72) 96 07/30/20 22:00 103 21 100/54 (69) 96 07/30/20 22:00 21 100/54 Mechanical Ventilator 100 07/30/20 22:00 21 100/54 Mechanical Ventilator 100 07/30/20 21:45 104 21 98/50 (66) 96 07/30/20 21:30 102 20 96/54 (68) 96 07/30/20 21:15 104 21 103/58 (73) 95 07/30/20 21:01 105 21 100 07/30/20 21:00 106 23 102/50 (67) 95 07/30/20 21:00 23 102/50 Mechanical Ventilator 100 07/30/20 21:00 23 102/50 Mechanical Ventilator 100 07/30/20 21:00 110 96/52 07/30/20 20:45 109 21 107/59 (75) 95 07/30/20 20:30 111 21 107/58 (74) 95 07/30/20 20:15 110 21 97/57 (70) 94 07/30/20 20:00 100 07/30/20 20:00 21 94/54 Mechanical Ventilator 100 07/30/20 20:00 21 94/54 Mechanical Ventilator 100 07/30/20 20:00 109 07/30/20 20:00 Mechanical Ventilator 07/30/20 20:00 100.4 110 21 94/54 (67) 94 07/30/20 19:45 111 21 94/53 (67) 95 07/30/20 19:30 120 21 117/63 (81) 88 07/30/20 19:26 113 21 100 07/30/20 19:00 21 107/57 Mechanical Ventilator 100 07/30/20 19:00 21 107/57 Mechanical Ventilator 100 07/30/20 19:00 114 20 107/57 (74) 97 07/30/20 18:30 110 20 103/55 (71) 98 07/30/20 18:00 20 95/58 Mechanical Ventilator 100 07/30/20 18:00 20 95/56 Mechanical Ventilator 100 07/30/20 18:00 112 20 95/58 (70) 97 07/30/20 17:55 115 22 100 07/30/20 17:30 111 20 94/60 (71) 96 07/30/20 17:00 23 113/56 Mechanical Ventilator 100 07/30/20 17:00 23 113/56 Mechanical Ventilator 100 07/30/20 17:00 114 20 114/65 (81) 91 07/30/20 16:30 118 21 116/62 (80) 94 07/30/20 16:01 100.2 120 21 118/57 (77) 91 07/30/20 16:00 100 07/30/20 16:00 23 118/57 Mechanical Ventilator 100 07/30/20 16:00 23 118/57 Mechanical Ventilator 100 07/30/20 16:00 Mechanical Ventilator 07/30/20 16:00 120 21 118/57 (77) 91 07/30/20 16:00 118 07/30/20 15:54 119 22 100 07/30/20 15:30 118 21 116/62 (80) 94 07/30/20 15:00 24 110/53 Mechanical Ventilator 100 07/30/20 15:00 24 110/53 Mechanical Ventilator 100 07/30/20 15:00 119 23 110/53 (72) 90 07/30/20 14:30 120 24 107/55 (72) 91 07/30/20 14:00 121 24 113/58 (76) 91 07/30/20 14:00 23 115/57 Mechanical Ventilator 100 07/30/20 14:00 23 113/58 Mechanical Ventilator 100 07/30/20 13:53 130 24 100 07/30/20 13:45 101.1 07/30/20 13:30 133 25 126/68 (87) 83 07/30/20 13:00 25 111/59 Mechanical Ventilator 100 07/30/20 13:00 25 111/59 Mechanical Ventilator 100 07/30/20 13:00 126 24 111/59 (76) 84 07/30/20 12:30 120 24 116/58 (77) 90 07/30/20 12:00 Mechanical Ventilator 07/30/20 12:00 122 07/30/20 12:00 25 118/63 Mechanical Ventilator 100 07/30/20 12:00 25 118/63 Mechanical Ventilator 100 07/30/20 12:00 100 07/30/20 12:00 101.4 119 23 118/63 (81) 91 Intake and Output 07/30/20 07/31/20 19:00 07:00 Intake Total 2430.3333 ml 1281.25 ml Output Total 1425 ml 1275 ml Balance 1005.3333 ml 6.25 ml Free Water 260 ml 270 ml IV Total 1440.3333 ml 351.25 ml Tube Feeding 660 ml 660 ml Other 70 ml Output Urine Total 1425 ml 1275 ml # Bowel Movements 1 General Appearance: no acute distress HEENT: normocephalic Respiratory: decreased breath sounds Cardiovascular: normal peripheral pulses Abdomen: normal bowel sounds Microbiology Date/Time Source Procedure Growth Status 07/31/20 08:40 Nasopharynx SARS-CoV-2 Antigen (Rapid)(ABHI) - Final Complete Laboratory Tests 07/30/20 12:06: POC Whole Blood Glucose 273H 07/30/20 18:14: POC Whole Blood Glucose 224H 07/30/20 20:27: POC Whole Blood Glucose 229H 07/31/20 00:00: POC Whole Blood Glucose 305H 07/31/20 07:41: Arterial Blood pH 7.366, Arterial Blood Partial Pressure CO2 62.3*H, Arterial Blood Partial Pressure O2 77.6, Arterial Blood HCO3 34.9H, Arterial Blood Oxygen Saturation 93.7L, Arterial Blood Base Excess 8.1H, Timbo Test Positive Current Medications Medications (Trade) Dose Ordered Sig/Marian Route PRN Reason Start Time Stop Time Status Last Admin Dose Admin Acetaminophen (Tylenol) 650 mg Q4H PRN RECTAL Temp >100.5 07/18/20 18:30 08/17/20 18:29 07/18/20 18:40 Acetaminophen (Tylenol) 650 mg Q6H PRN ORAL For Pain 07/07/20 15:45 08/06/20 15:44 07/29/20 16:28 Acetaminophen (Tylenol) 650 mg Q6H PRN ORAL FEVER 07/07/20 16:15 08/06/20 16:14 07/30/20 12:36 Benzonatate (Tessalon Perles) 100 mg TIDPRN PRN ORAL For Cough 07/18/20 18:30 08/17/20 18:29 Cefepime HCl 2 gm/ Dextrose 55 ml @ 110 mls/hr Q12HR IVPB 07/22/20 13:00 08/04/20 14:00 07/31/20 09:02 Chlorhexidine Gluconate (Rafaela-Hex 2%) 1 applic DAILY@2000 TOPIC 07/25/20 20:00 10/23/20 19:59 07/30/20 20:19 Dextrose (Dextrose 50%) 25 ml Q30M PRN IV Hypoglycemia 07/07/20 15:45 10/05/20 15:44 Dextrose (Dextrose 50%) 50 ml Q30M PRN IV Hypoglycemia 07/07/20 15:45 10/05/20 15:44 Docusate Sodium (Colace) 100 mg TID NG 07/29/20 13:00 08/25/20 17:59 07/31/20 09:02 Enoxaparin Sodium (Lovenox) 70 mg EVERY 12 HOURS SUBQ 07/25/20 21:00 10/23/20 20:59 07/31/20 09:03 Famotidine (Pepcid I.v.) 20 mg Q12HR IVP 07/20/20 09:00 08/19/20 08:59 07/31/20 09:03 Fentanyl Citrate 250 ml @ 1 mls/hr Q24H PRN IV SEDATION 07/29/20 15:00 07/31/20 14:59 07/31/20 00:23 Fluconazole/ Sodium Chloride 200 ml @ 100 mls/hr Q24H IV 07/22/20 14:00 08/04/20 13:59 07/30/20 13:59 Insulin Aspart (NovoLOG) Q6HR SUBQ 07/26/20 12:00 10/24/20 11:59 07/31/20 06:11 Insulin Detemir (Levemir) 25 units Q12HR SUBQ 07/29/20 21:00 10/24/20 10:29 07/31/20 09:00 Methylprednisolone Sodium Succinate (Solu-MEDROL) 20 mg EVERY 6 HOURS IVP 07/22/20 12:00 10/19/20 08:59 07/31/20 05:36 Metoprolol Tartrate (Lopressor) 25 mg EVERY 12 HOURS NG 07/26/20 21:00 10/24/20 20:59 07/31/20 09:02 Midazolam HCl 200 ml @ 0 mls/hr Q24H PRN IV Agitation 07/29/20 22:45 08/05/20 22:44 07/31/20 00:22 Sorbitol (sorbitoL) 45 ml Q12HR PRN ORAL Constipation 07/30/20 09:15 08/29/20 09:14 Trimethoprim/ Sulfamethoxazole 20 ml/Dextrose 570 ml @ 380 mls/hr Q12HR IV 07/29/20 21:00 08/05/20 20:59 07/31/20 09:02 Vancomycin HCl ([facility] pharmacy to dose) 1 ea DAILY PRN MISC Per rx protocol 07/27/20 10:00 08/26/20 09:59 Vancomycin HCl 750 mg/Sodium Chloride 275 ml @ 183.333 mls/hr Q12HR@1100,2300 IVPB 07/27/20 23:00 08/01/20 22:59 07/31/20 11:09 Assessment/Plan Assessment/Plan 1. COVID-19 pneumonia. - COVID-19 PCR positive (07/07) -> continue isolation - s/p remdexsivir - s/p azithromycin - CXR (07/13) no significant change - f/u rapid COVID-19 (07/31) negative 2. Hypoxemic respiratory distress - s/p decadron (07/08-07/17) - now on Solu-Medrol - intubated; on AC mode - FiO2 100%; will increase PEEP 7->8 -> 10 -attempt proning 3. Hypertension. 4. Diabetes mellitus. -on insulin sliding scale 5. DVT ppx - on Lovenox, full dose empirically 6. Sputum Cx shows pseudomonas and cony - on Abx 7. Suspect bacterial infection given leukocytosis - ordered fungal culture, BCx (07/20) - on empiric Diflucan; WBC continues to be high - On Cefepime - also on IV Vanco - added IV Bactrim for possible PJP 8. Pulmonary edema -Off lasix gtt - CXR improved Discussed with bedside RN. Discussed with family On IV vanco ( WBC higher) On Levemir The care of this patient was discussed with my supervising physician Time spent for this encounter was approximately 31 minutes Milton Howard Jul 31, 2020 11:45
--- NOTE | 2020-07-31 12:20 | Nephrology Progress Note ---
Assessment/Plan Problem List: (1) Hyponatremia (2) Hypoxia (3) Pneumonitis (4) Acute respiratory failure due to COVID-19 (5) DMII (diabetes mellitus, type 2) (6) HTN (hypertension) Assessment Hyponatremia, improved with saline infusion COVID-19 infection Pneumonia, acute respiratory failure, hypoxia Diabetes mellitus Hypertension Plan July 31: No CHEM panel drawn today. Remains full code. Intubated on ventilator. FiO2 85% now. Will check lab tomorrow. Continue to monitor renal parameters. July 30: Labs reviewed. Renal parameters stable. Continue per consultants. Intubated on ventilator with FiO2 of 100%. Full code. Not much to add from renal standpoint of view at this time. July 29 labs reviewed. Serum potassium elevated. Potassium supplement was put on hold on 1 dose of Kayexalate given. Levemir dose increased. Continue to monitor renal parameters. Patient remains on 100% FiO2 on ventilator. July 28: Labs reviewed. Renal parameters stable. Remains full code. Blood sugar remains high. Levemir dose increased. Not much to add from renal standpoint of view. FiO2 now is 100%. July 27: Labs reviewed. Renal parameters stable. Low potassium addressed. FiO2 70%. Blood sugar elevated. Levemir dose is being adjusted. Continue per consultants. July 26: Labs reviewed. Renal parameters stable. Patient now intubated on ventilator in ICU. Blood sugar elevated. Levemir added. Will watch electrolyt es. Main management per wet end helper and ID. July 25: Labs reviewed. Renal parameters stable. Continue per consultants. July 24: Labs reviewed. Renal parameters stable. Continue per pulmonary. Medication list reviewed. July 23: No labs drawn today. Medication list reviewed. Continue per [employer] consultant. Patient full code. July 22: Labs reviewed. Stable renal parameters. Continue per consultants. July 21: No CHEM panel drawn today. Stable from renal standpoint of view. Blood pressure stable. July 20: IV changed to D5W 50 cc an hour. Renal parameters stable. Continue per consultants. July 19: Pulmonary status remains unstable. Stable from renal standpoint of view. July 18: Labs reviewed. Stable renal parameters and electrolytes. Continue per consultants. July 17: No labs drawn today. Remains stable from renal standpoint today. July 16: No labs drawn today. Continue per consultants. Stable from renal standpoint of view. July 15: Labs reviewed. Renal parameters stable. July 14: No labs from today. Continue per current management. Check labs tomorrow. July 13: No labs drawn today. Stable from renal standpoint of view. July 12: Today's labs pending. Medication list reviewed. Continue per cu rrent management and consultants. July 11: Labs reviewed. Renal parameters stable. July 10: Labs reviewed. Renal parameters electrolytes stable. Continue per consultants. July 09: Labs reviewed. Renal parameters and electrolytes stable. Continue per ID and pulmonary. Subjective ROS Limited/Unobtainable: Yes Objective Objective Last 24 Hour Vital Signs Date Time Temp Pulse Resp B/P (MAP) Pulse Ox O2 Delivery O2 Flow Rate FiO2 07/31/20 11:00 91 22 94/54 (67) 94 07/31/20 10:30 94 18 99/58 (72) 93 07/31/20 10:00 93 20 94/54 (67) 93 07/31/20 09:10 104 21 85 07/31/20 09:02 98 97/50 07/31/20 09:00 97 20 97/50 (66) 07/31/20 08:30 99 20 101/54 (70) 07/31/20 08:00 99.9 99 20 96/51 (66) 100 07/31/20 08:00 100 07/31/20 08:00 98 07/31/20 07:35 98 22 100 07/31/20 07:30 99 21 97/56 (70) 100 07/31/20 07:00 101 21 99/58 (72) 100 07/31/20 06:00 20 100/52 Mechanical Ventilator 100 07/31/20 06:00 20 100/52 Mechanical Ventilator 100 07/31/20 06:00 103 20 99/56 (70) 100 07/31/20 05:45 103 20 100/52 (68) 100 07/31/20 05:30 105 21 99/58 (72) 100 07/31/20 05:22 107 20 100 07/31/20 05:15 107 20 104/54 (71) 100 07/31/20 05:00 20 106/57 Mechanical Ventilator 100 07/31/20 05:00 20 106/57 Mechanical Ventilator 100 07/31/20 05:00 109 20 106/57 (73) 100 07/31/20 04:45 109 20 98/61 (73) 100 07/31/20 04:30 112 21 108/56 (73) 94 07/31/20 04:15 105 21 100/53 (69) 100 07/31/20 04:00 99.3 106 21 101/51 (68) 100 07/31/20 04:00 100 07/31/20 04:00 20 101/51 Mechanical Ventilator 100 07/31/20 04:00 21 101/51 Mechanical Ventilator 100 07/31/20 04:00 107 07/31/20 04:00 Mechanical Ventilator 07/31/20 03:45 106 21 98/50 (66) 100 07/31/20 03:30 107 21 107/83 (91) 100 07/31/20 03:29 113 25 100 07/31/20 03:15 109 21 100/53 (69) 100 07/31/20 03:00 20 106/51 Mechanical Ventilator 100 07/31/20 03:00 20 106/51 Mechanical Ventilator 100 07/31/20 03:00 110 20 106/51 (69) 100 07/31/20 02:45 112 20 102/54 (70) 99 07/31/20 02:30 99.7 115 20 97/56 (70) 98 07/31/20 02:30 25 108/56 Mechanical Ventilator 100 07/31/20 02:15 119 25 130/71 (90) 82 07/31/20 02:00 118 25 108/56 (73) 82 07/31/20 02:00 25 108/56 Mechanical Ventilator 100 07/31/20 02:00 25 108/56 Mechanical Ventilator 100 07/31/20 01:45 118 24 112/55 (74) 83 07/31/20 01:30 116 25 109/56 (73) 86 07/31/20 01:15 112 22 106/57 (73) 91 07/31/20 01:04 110 22 100 07/31/20 01:00 99.3 108 21 100/54 (69) 93 07/31/20 01:00 21 100/54 Mechanical Ventilator 100 07/31/20 01:00 21 100/54 Mechanical Ventilator 100 07/31/20 00:45 111 21 102/53 (69) 93 07/31/20 00:30 113 24 106/53 (70) 93 07/31/20 00:23 22 112/57 Mechanical Ventilator 100 07/31/20 00:22 22 112/57 Mechanical Ventilator 100 07/31/20 00:15 115 20 112/57 (75) 93 07/31/20 00:00 109 07/31/20 00:00 Mechanical Ventilator 07/31/20 00:00 100 07/31/20 00:00 23 120/54 Mechanical Ventilator 100 07/31/20 00:00 23 120/54 Mechanical Ventilator 100 07/31/20 00:00 114 23 120/54 (76) 89 07/30/20 23:45 112 23 110/56 (74) 92 07/30/20 23:30 110 21 105/55 (72) 96 07/30/20 23:21 109 20 100 07/30/20 23:15 107 22 94/62 (73) 96 07/30/20 23:00 22 100/55 Mechanical Ventilator 100 07/30/20 23:00 22 100/55 Mechanical Ventilator 100 07/30/20 23:00 98.3 106 22 100/55 (70) 95 07/30/20 22:45 110 21 104/57 (73) 94 07/30/20 22:30 109 20 105/53 (70) 95 07/30/20 22:15 107 21 108/55 (72) 96 07/30/20 22:00 103 21 100/54 (69) 96 07/30/20 22:00 21 100/54 Mechanical Ventilator 100 07/30/20 22:00 21 100/54 Mechanical Ventilator 100 07/30/20 21:45 104 21 98/50 (66) 96 07/30/20 21:30 102 20 96/54 (68) 96 07/30/20 21:15 104 21 103/58 (73) 95 07/30/20 21:01 105 21 100 07/30/20 21:00 106 23 102/50 (67) 95 07/30/20 21:00 23 102/50 Mechanical Ventilator 100 07/30/20 21:00 23 102/50 Mechanical Ventilator 100 07/30/20 21:00 110 96/52 07/30/20 20:45 109 21 107/59 (75) 95 07/30/20 20:30 111 21 107/58 (74) 95 07/30/20 20:15 110 21 97/57 (70) 94 07/30/20 20:00 100 07/30/20 20:00 21 94/54 Mechanical Ventilator 100 07/30/20 20:00 21 94/54 Mechanical Ventilator 100 07/30/20 20:00 109 07/30/20 20:00 Mechanical Ventilator 07/30/20 20:00 100.4 110 21 94/54 (67) 94 07/30/20 19:45 111 21 94/53 (67) 95 07/30/20 19:30 120 21 117/63 (81) 88 07/30/20 19:26 113 21 100 07/30/20 19:00 21 107/57 Mechanical Ventilator 100 07/30/20 19:00 21 107/57 Mechanical Ventilator 100 07/30/20 19:00 114 20 107/57 (74) 97 07/30/20 18:30 110 20 103/55 (71) 98 07/30/20 18:00 20 95/58 Mechanical Ventilator 100 07/30/20 18:00 20 95/56 Mechanical Ventilator 100 07/30/20 18:00 112 20 95/58 (70) 97 07/30/20 17:55 115 22 100 07/30/20 17:30 111 20 94/60 (71) 96 07/30/20 17:00 23 113/56 Mechanical Ventilator 100 07/30/20 17:00 23 113/56 Mechanical Ventilator 100 07/30/20 17:00 114 20 114/65 (81) 91 07/30/20 16:30 118 21 116/62 (80) 94 07/30/20 16:01 100.2 120 21 118/57 (77) 91 07/30/20 16:00 100 07/30/20 16:00 23 118/57 Mechanical Ventilator 100 07/30/20 16:00 23 118/57 Mechanical Ventilator 100 07/30/20 16:00 Mechanical Ventilator 07/30/20 16:00 120 21 118/57 (77) 91 07/30/20 16:00 118 07/30/20 15:54 119 22 100 07/30/20 15:30 118 21 116/62 (80) 94 07/30/20 15:00 24 110/53 Mechanical Ventilator 100 07/30/20 15:00 24 110/53 Mechanical Ventilator 100 07/30/20 15:00 119 23 110/53 (72) 90 07/30/20 14:30 120 24 107/55 (72) 91 07/30/20 14:00 121 24 113/58 (76) 91 07/30/20 14:00 23 115/57 Mechanical Ventilator 100 07/30/20 14:00 23 113/58 Mechanical Ventilator 100 07/30/20 13:53 130 24 100 07/30/20 13:45 101.1 07/30/20 13:30 133 25 126/68 (87) 83 07/30/20 13:00 25 111/59 Mechanical Ventilator 100 07/30/20 13:00 25 111/59 Mechanical Ventilator 100 07/30/20 13:00 126 24 111/59 (76) 84 07/30/20 12:30 120 24 116/58 (77) 90 Intake and Output 07/30/20 07/31/20 19:00 07:00 Intake Total 2430.3333 ml 1281.25 ml Output Total 1425 ml 1275 ml Balance 1005.3333 ml 6.25 ml Free Water 260 ml 270 ml IV Total 1440.3333 ml 351.25 ml Tube Feeding 660 ml 660 ml Other 70 ml Output Urine Total 1425 ml 1275 ml # Bowel Movements 1 Current Medications Medications (Trade) Dose Ordered Sig/Marian Route PRN Reason Start Time Stop Time Status Last Admin Dose Admin Acetaminophen (Tylenol) 650 mg Q4H PRN RECTAL Temp >100.5 07/18/20 18:30 08/17/20 18:29 07/18/20 18:40 Acetaminophen (Tylenol) 650 mg Q6H PRN ORAL For Pain 07/07/20 15:45 08/06/20 15:44 07/29/20 16:28 Acetaminophen (Tylenol) 650 mg Q6H PRN ORAL FEVER 07/07/20 16:15 08/06/20 16:14 07/30/20 12:36 Benzonatate (Tessalon Perles) 100 mg TIDPRN PRN ORAL For Cough 07/18/20 18:30 08/17/20 18:29 Cefepime HCl 2 gm/ Dextrose 55 ml @ 110 mls/hr Q12HR IVPB 07/22/20 13:00 08/04/20 14:00 07/31/20 09:02 Chlorhexidine Gluconate (Rafaela-Hex 2%) 1 applic DAILY@2000 TOPIC 07/25/20 20:00 10/23/20 19:59 07/30/20 20:19 Dextrose (Dextrose 50%) 25 ml Q30M PRN IV Hypoglycemia 07/07/20 15:45 10/05/20 15:44 Dextrose (Dextrose 50%) 50 ml Q30M PRN IV Hypoglycemia 07/07/20 15:45 10/05/20 15:44 Docusate Sodium (Colace) 100 mg TID NG 07/29/20 13:00 08/25/20 17:59 07/31/20 09:02 Enoxaparin Sodium (Lovenox) 70 mg EVERY 12 HOURS SUBQ 07/25/20 21:00 10/23/20 20:59 07/31/20 09:03 Famotidine (Pepcid I.v.) 20 mg Q12HR IVP 07/20/20 09:00 08/19/20 08:59 07/31/20 09:03 Fentanyl Citrate 250 ml @ 1 mls/hr Q24H PRN IV SEDATION 07/29/20 15:00 07/31/20 14:59 07/31/20 00:23 Fluconazole/ Sodium Chloride 200 ml @ 100 mls/hr Q24H IV 07/22/20 14:00 08/04/20 13:59 07/30/20 13:59 Insulin Aspart (NovoLOG) Q6HR SUBQ 07/26/20 12:00 10/24/20 11:59 07/31/20 06:11 Insulin Detemir (Levemir) 25 units Q12HR SUBQ 07/29/20 21:00 10/24/20 10:29 07/31/20 09:00 Methylprednisolone Sodium Succinate (Solu-MEDROL) 20 mg EVERY 6 HOURS IVP 07/22/20 12:00 10/19/20 08:59 07/31/20 05:36 Metoprolol Tartrate (Lopressor) 25 mg EVERY 12 HOURS NG 07/26/20 21:00 10/24/20 20:59 07/31/20 09:02 Midazolam HCl 200 ml @ 0 mls/hr Q24H PRN IV Agitation 07/29/20 22:45 08/05/20 22:44 07/31/20 00:22 Sorbitol (sorbitoL) 45 ml Q12HR PRN ORAL Constipation 07/30/20 09:15 08/29/20 09:14 Trimethoprim/ Sulfamethoxazole 20 ml/Dextrose 570 ml @ 380 mls/hr Q12HR IV 07/29/20 21:00 08/05/20 20:59 07/31/20 09:02 Vancomycin HCl ([facility] pharmacy to dose) 1 ea DAILY PRN MISC Per rx protocol 07/27/20 10:00 08/26/20 09:59 Vancomycin HCl 750 mg/Sodium Chloride 275 ml @ 183.333 mls/hr Q12HR@1100,2300 IVPB 07/27/20 23:00 08/01/20 22:59 07/31/20 11:09 Laboratory Tests 07/30/20 18:14: POC Whole Blood Glucose 224H 07/30/20 20:27: POC Whole Blood Glucose 229H 07/31/20 00:00: POC Whole Blood Glucose 305H 07/31/20 07:41: Arterial Blood pH 7.366, Arterial Blood Partial Pressure CO2 62.3*H, Arterial Blood Partial Pressure O2 77.6, Arterial Blood HCO3 34.9H, Arterial Blood Oxygen Saturation 93.7L, Arterial Blood Base Excess 8.1H, Timbo Test Positive Height (Feet): 5 Height (Inches): 3.00 Weight (Pounds): 162 General Appearance: no apparent distress EENT: other - Intubated on ventilator Cardiovascular: tachycardia Respiratory/Chest: decreased breath sounds Abdomen: distended Objective No change Anurag Bridges MD Jul 31, 2020 12:20
[2020-07-31] MEDS ORDERED: Sterile Water Irrig 1000ml IRRIG ONE (13:44)
[2020-07-31] MEDS ORDERED: Tubing IV Secondary IV ONE ×2 (13:44→13:56)
[2020-07-31] MEDS ORDERED: NS 275ml ONE (13:56)
[2020-07-31] MEDS: FLUCONAZOLE 400 MG/200 ML IV SCH (14:56)
--- NOTE | 2020-07-31 17:40 | Cardiology Progress Note ---
Assessment/Plan Assessment/Plan 1. COVID-19 viral PNA s/p remdesivir and dexamethasone WBCs severely elevated 2. Respiratory failure 2/2 acute PNA Intubated 07/25/20 3. HFpEF acute on chronic diastolic HF with preserved EF EF 65%, per repeat echo post intubation Lasix for diuresis as needed BNP 164 4. 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 Sinus tachycardia 2/2 fever and infection Pt with fever and leukocytosis still vent dependent. In sinus rhythm, tachycardic, Bb for rate and rhythm control, not on pressors. Well preserved LV function. Lasix as needed per pulmonlogy recs. Subjective ROS Limited/Unobtainable: Yes Subjective Intubated and on vent, in sinus rhythm, not on pressors. Fever today. Seen in ICU Objective Last 24 Hour Vital Signs Date Time Temp Pulse Resp B/P (MAP) Pulse Ox O2 Delivery O2 Flow Rate FiO2 07/31/20 17:00 109 21 106/59 (75) 98 07/31/20 16:30 108 20 96/49 (65) 97 07/31/20 16:00 Mechanical Ventilator 07/31/20 16:00 108 20 107/59 (75) 95 07/31/20 16:00 100 07/31/20 16:00 100.8 07/31/20 16:00 107 07/31/20 15:10 101 22 100 07/31/20 15:00 105 21 99/55 (70) 92 07/31/20 14:30 105 21 100/53 (69) 92 07/31/20 14:00 107 21 102/52 (69) 92 07/31/20 13:30 105 21 99/53 (68) 95 07/31/20 13:00 104 21 102/55 (71) 96 07/31/20 12:30 99.9 108 21 113/62 (79) 95 07/31/20 12:00 Mechanical Ventilator 07/31/20 12:00 108 07/31/20 12:00 103 22 103/60 (74) 88 07/31/20 12:00 85 07/31/20 11:55 104 22 85 07/31/20 11:30 94 22 95/51 (66) 94 07/31/20 11:00 91 22 94/54 (67) 94 07/31/20 10:30 94 18 99/58 (72) 93 07/31/20 10:00 93 20 94/54 (67) 93 07/31/20 09:10 104 21 85 07/31/20 09:02 98 97/50 07/31/20 09:00 97 20 97/50 (66) 07/31/20 08:30 99 20 101/54 (70) 07/31/20 08:00 99.9 99 20 96/51 (66) 100 07/31/20 08:00 Mechanical Ventilator 07/31/20 08:00 100 07/31/20 08:00 98 07/31/20 07:35 98 22 100 07/31/20 07:30 99 21 97/56 (70) 100 07/31/20 07:00 101 21 99/58 (72) 100 07/31/20 06:00 20 100/52 Mechanical Ventilator 100 07/31/20 06:00 20 100/52 Mechanical Ventilator 100 07/31/20 06:00 103 20 99/56 (70) 100 07/31/20 05:45 103 20 100/52 (68) 100 07/31/20 05:30 105 21 99/58 (72) 100 07/31/20 05:22 107 20 100 07/31/20 05:15 107 20 104/54 (71) 100 07/31/20 05:00 20 106/57 Mechanical Ventilator 100 07/31/20 05:00 20 106/57 Mechanical Ventilator 100 07/31/20 05:00 109 20 106/57 (73) 100 07/31/20 04:45 109 20 98/61 (73) 100 07/31/20 04:30 112 21 108/56 (73) 94 07/31/20 04:15 105 21 100/53 (69) 100 07/31/20 04:00 99.3 106 21 101/51 (68) 100 07/31/20 04:00 100 07/31/20 04:00 20 101/51 Mechanical Ventilator 100 07/31/20 04:00 21 101/51 Mechanical Ventilator 100 07/31/20 04:00 107 07/31/20 04:00 Mechanical Ventilator 07/31/20 03:45 106 21 98/50 (66) 100 07/31/20 03:30 107 21 107/83 (91) 100 07/31/20 03:29 113 25 100 07/31/20 03:15 109 21 100/53 (69) 100 07/31/20 03:00 20 106/51 Mechanical Ventilator 100 07/31/20 03:00 20 106/51 Mechanical Ventilator 100 07/31/20 03:00 110 20 106/51 (69) 100 07/31/20 02:45 112 20 102/54 (70) 99 07/31/20 02:30 99.7 115 20 97/56 (70) 98 07/31/20 02:30 25 108/56 Mechanical Ventilator 100 07/31/20 02:15 119 25 130/71 (90) 82 07/31/20 02:00 118 25 108/56 (73) 82 07/31/20 02:00 25 108/56 Mechanical Ventilator 100 07/31/20 02:00 25 108/56 Mechanical Ventilator 100 07/31/20 01:45 118 24 112/55 (74) 83 07/31/20 01:30 116 25 109/56 (73) 86 07/31/20 01:15 112 22 106/57 (73) 91 07/31/20 01:04 110 22 100 07/31/20 01:00 99.3 108 21 100/54 (69) 93 07/31/20 01:00 21 100/54 Mechanical Ventilator 100 07/31/20 01:00 21 100/54 Mechanical Ventilator 100 07/31/20 00:45 111 21 102/53 (69) 93 07/31/20 00:30 113 24 106/53 (70) 93 07/31/20 00:23 22 112/57 Mechanical Ventilator 100 07/31/20 00:22 22 112/57 Mechanical Ventilator 100 07/31/20 00:15 115 20 112/57 (75) 93 07/31/20 00:00 109 07/31/20 00:00 Mechanical Ventilator 07/31/20 00:00 100 07/31/20 00:00 23 120/54 Mechanical Ventilator 100 07/31/20 00:00 23 120/54 Mechanical Ventilator 100 07/31/20 00:00 114 23 120/54 (76) 89 07/30/20 23:45 112 23 110/56 (74) 92 07/30/20 23:30 110 21 105/55 (72) 96 07/30/20 23:21 109 20 100 07/30/20 23:15 107 22 94/62 (73) 96 07/30/20 23:00 22 100/55 Mechanical Ventilator 100 07/30/20 23:00 22 100/55 Mechanical Ventilator 100 07/30/20 23:00 98.3 106 22 100/55 (70) 95 07/30/20 22:45 110 21 104/57 (73) 94 07/30/20 22:30 109 20 105/53 (70) 95 07/30/20 22:15 107 21 108/55 (72) 96 07/30/20 22:00 103 21 100/54 (69) 96 07/30/20 22:00 21 100/54 Mechanical Ventilator 100 07/30/20 22:00 21 100/54 Mechanical Ventilator 100 07/30/20 21:45 104 21 98/50 (66) 96 07/30/20 21:30 102 20 96/54 (68) 96 07/30/20 21:15 104 21 103/58 (73) 95 07/30/20 21:01 105 21 100 07/30/20 21:00 106 23 102/50 (67) 95 07/30/20 21:00 23 102/50 Mechanical Ventilator 100 07/30/20 21:00 23 102/50 Mechanical Ventilator 100 07/30/20 21:00 110 96/52 07/30/20 20:45 109 21 107/59 (75) 95 07/30/20 20:30 111 21 107/58 (74) 95 07/30/20 20:15 110 21 97/57 (70) 94 07/30/20 20:00 100 07/30/20 20:00 21 94/54 Mechanical Ventilator 100 07/30/20 20:00 21 94/54 Mechanical Ventilator 100 07/30/20 20:00 109 07/30/20 20:00 Mechanical Ventilator 07/30/20 20:00 100.4 110 21 94/54 (67) 94 07/30/20 19:45 111 21 94/53 (67) 95 07/30/20 19:30 120 21 117/63 (81) 88 07/30/20 19:26 113 21 100 07/30/20 19:00 21 107/57 Mechanical Ventilator 100 07/30/20 19:00 21 107/57 Mechanical Ventilator 100 07/30/20 19:00 114 20 107/57 (74) 97 07/30/20 18:30 110 20 103/55 (71) 98 07/30/20 18:00 20 95/58 Mechanical Ventilator 100 07/30/20 18:00 20 95/56 Mechanical Ventilator 100 07/30/20 18:00 112 20 95/58 (70) 97 07/30/20 17:55 115 22 100 Intake and Output 07/30/20 07/31/20 19:00 07:00 Intake Total 2430.3333 ml 1281.25 ml Output Total 1425 ml 1275 ml Balance 1005.3333 ml 6.25 ml Free Water 260 ml 270 ml IV Total 1440.3333 ml 351.25 ml Tube Feeding 660 ml 660 ml Other 70 ml Output Urine Total 1425 ml 1275 ml # Bowel Movements 1 Laboratory Tests Test 07/30/20 18:14 07/30/20 20:27 07/31/20 00:00 07/31/20 07:41 POC Whole Blood Glucose 224 MG/DL (74-106) H 229 MG/DL (74-106) H 305 MG/DL (74-106) H Arterial Blood pH 7.366 (7.350-7.450) Arterial Blood Partial Pressure CO2 62.3 mmHg (35.0-45.0) *H Arterial Blood Partial Pressure O2 77.6 mmHg (75.0-100.0) Arterial Blood HCO3 34.9 mmol/L (22.0-26.0) H Arterial Blood Oxygen Saturation 93.7 % (95-100) L Arterial Blood Base Excess 8.1 (-2-2) H Tibmo Test Positive Microbiology Date/Time Source Procedure Growth Status 07/31/20 08:40 Nasopharynx SARS-CoV-2 Antigen (Rapid)(ABHI) - Final Complete Blanca Lobato PA-C Jul 31, 2020 17:40
[2020-07-31] MEDS: Acetaminophen 650 MG SUPP RECTAL PRN (17:45)
--- NOTE | 2020-07-31 19:30 | NUR ---
Report received from LIANA Faith and assumed care of patient.
--- NOTE | 2020-07-31 20:30 | NUR ---
Assessment complete. See charting for details. Pt in NAD, BP slightly low systolic in 80's-90's and Diastolic in the 40's predominantly. Will watch closely for need for intervention. Pt repositioned, oral care provided. Will continue to monitor.
[2020-07-31] MEDS: Dyna-Hex 2% Top Sol 2oz TOPIC SCH (20:41)
--- NOTE | 2020-07-31 22:30 | NUR ---
Pt BP remains on the low side with MAP <65. Called and left a voicemail for Dr. De Luna, attending for this patient, to request central line and levophed initiation. Awaiting call back.
--- NOTE | 2020-07-31 23:11 | NUR ---
Dr. Ashley's office called and voicemail left as Dr. De Luna did not call back for orders on patient. BP currently 81/45. Awaiting return call from Dr. Ashley at this time. Quoter and napper fixer aware of need for physician call back due decreased BP.
--- NOTE | 2020-07-31 23:56 | NUR ---
Called Dr. Ashley's cell Number. Voicemail says not to leave a message as he rarely checks it, and recommends texting the cell phone or calling the office. Text Dr. Ashley to call the ICU, awaiting response. Nurse Manager [employer] to see if she can locate a home phone number for physician. If no response, will escalate to Dr. Edward.
[2020-08-01] VITALS (82 sets, daily range): BP systolic 77–150; BP diastolic 42–95
--- NOTE | 2020-08-01 00:06 | NUR ---
Rn Gastroenterology called Home number and left a message with someone that answered the phone to have Dr. Ashley call back the ICU. If no response in 20 min will escalate to Dr. Edward.
--- NOTE | 2020-08-01 00:30 | NUR ---
Called Dr. Edward due to no response from other providers. Requested central line and Levophed gtt. Per Dr. Edward he will not call the ED MD to place a central line in the middle of the night. Requested that a 500ml bolus be administered, explained that PIV's are very small and not adequate for bolus as they are very fragile at this point and cannot afford to lose an IV as patient is very edematous. Also explained that patients lung sounds are wet and crackles in bases. Dr. Edward stated to run bolus slow and can get CVC in am. Pt BP too low to wait. Requested that an order be allowed for CVC line and ICU wound care center consultant or myself can call the ED MD to request a CVC placement now. Cheyanne agreed to verbal order for CVC placement and Levophed if able to get CVC placement this evening as long he does not have to call ED MD himself. Verbal read back of orders with confirmation. 0035: Called [facility] to speak with ED MD to request CVC placement. ED MD agreed to place and will come to bedside to place line. Levophed gtt ordered and ready to initiate once line is in place.
--- NOTE | 2020-08-01 01:00 | NUR ---
ED MD to bedside to place CVC to R Femoral. Successful placement, Levophed initiated at 2mcg/min. After appropriate time had passed, increased Levophed to to 4mcg/min as ordered to titrate to SBP >90. While CVC being placed and patient HOB down she quickly desats. Pt desatted to 60's. Recovered over approximately 15 min post CVC placement. Pt sounds wet and will pass along to day RN. Did notify Tirmizi of wet sounding lungs in previously documented call. Tubing changed and lines moved to R femoral with exception of sedation as they can be changed out and moved over when new bags are initiated to prevent waste of sedating drugs. R hand PIV's dc'd as they were all very edematous. Pt now stable, will continue to monitor
--- NOTE | 2020-08-01 01:12 | Emergency Room Report ---
History of Present Illness General Chief Complaint: Dyspnea/Respdistress Source: Medical Record Present Illness HPI This patient was admitted to the hospital for Covid pneumonia. She has a prolonged hospital stay already. She was intubated for respiratory failure. Now she is hypotensive requiring pressors. I was asked to place a central line for pressors. Allergies: Coded Allergies: No Known Allergies (Unverified , 07/07/20) COVID-19 Screening Contact w/high risk pt: No Experienced COVID-19 symptoms?: Yes COVID-[address] MAGISTRATE: Yes COVID-19 Screening: Positive COVID-19 COVID-19 Testing Source: 06/03/20 Nursing Documentation-[facility] Past Medical History: No History, Except For Hx Cardiac Problems: No Hx Hypertension: Yes Hx Pacemaker: No Hx Asthma: No Hx COPD: No Hx Diabetes: Yes Hx Cancer: No Hx Gastrointestinal Problems: No Hx Dialysis: No History Of Psychiatric Problem: No Hx Neurological Problems: No Hx Cerebrovascular Accident: No Hx Seizures: No Physical Exam Vital Signs Date Time Temp Pulse Resp B/P (MAP) Pulse Ox O2 Delivery O2 Flow Rate FiO2 07/28/20 07:00 120 20 114/66 (82) 94 07/28/20 07:26 100 07/28/20 07:52 Mechanical Ventilator 07/28/20 08:00 97.9 Procedures Central Line Central Line : Consent: Emergent Central Line Lumen: triple Maximal Sterile Barrier Tech: yes cap, yes mask, yes sterile gown, yes sterile gloves, yes large sterile sheet, yes hand hygiene, yes chlorhexidine prep Central Line Postion: femoral (R) US Guided Line?: No Complications: none Central Line Post Position: sutured, good blood return Attempts: One Patient Tolerated: Well Complications: None Medical Decision Making Diagnostic Impression: Primary Impression: Coronavirus infection Additional Impressions: Hyponatremia Hypoxia Pneumonitis Last Vital Signs Date Time Temp Pulse Resp B/P (MAP) Pulse Ox O2 Delivery O2 Flow Rate FiO2 08/01/20 00:15 91 22 80/45 (57) 95 08/01/20 00:00 98.8 08/01/20 00:00 Mechanical Ventilator 07/31/20 23:00 100 Disposition: ADMITTED INPATIENT Condition: Stable Referrals: NOT CHOSEN IPA/MD,REFERRING (PCP) Additional Instructions: Please note that this report is being documented using DRAGON technology. This can lead to erroneous entry secondary to incorrect interpretation by the dictating instrument. Marlon Dong MD Aug 01, 2020 01:12
[2020-08-01] MEDS: Norepinephrine 4mg/NS Premix 250 ML IV SCH (01:37)
--- NOTE | 2020-08-01 02:00 | NUR ---
Pt in NAD, remains stable on levophed gtt. See IV spreadsheet for details. Pt does drop saturation when laying flat. Will try to decrease amount of turns/time flat due to undue stress on patient. Will continue to monitor.
--- NOTE | 2020-08-01 04:20 | NUR ---
0400 assessment completed. See charting for details. Pt remains in NAD and stable on Levophed. Oral care provided, small tilt/turn completed on patient. Will continue to monitor.
[2020-08-01] MEDS: Solu-MEDROL 40mg Inj IVP SCH ×3 (05:18→18:10)
[2020-08-01] MEDS: NovoLOG Insulin Flexpen SUBQ SCH ×4 (05:19→23:58)
[2020-08-01 05:30] LABS: HEMATOCRIT 24.5 % (37.0-47.0); HEMOGLOBIN 7.6 G/DL (12.0-16.0); MEAN CORPUSCULAR VOLUME 93 FL (80-99); PLATELET COUNT 185 K/UL (150-450); RED BLOOD COUNT 2.64 M/UL (4.20-5.40); WHITE BLOOD COUNT 17.8 K/UL (4.8-10.8)
[2020-08-01 05:47] LABS: PHOSPHORUS 3.5 MG/DL (2.5-4.9)
[2020-08-01 05:53] LABS: ALANINE AMINOTRANSFERASE 31 U/L (12-78); ALBUMIN 1.4 G/DL (3.4-5.0); ALBUMIN/GLOBULIN RATIO 0.4 (1.0-2.7); ALKALINE PHOSPHATASE 70 U/L (46-116); ANION GAP 3 mmol/L (5-15); ASPARTATE AMINO TRANSFERASE 41 U/L (15-37); BILIRUBIN,TOTAL 0.2 MG/DL (0.2-1.0); BLOOD UREA NITROGEN 28 mg/dL (7-18); CALCIUM 8.5 MG/DL (8.5-10.1); CARBON DIOXIDE 31 MMOL/L (21-32); CHLORIDE 101 MMOL/L (98-107); CREATININE 0.9 MG/DL (0.55-1.30); POTASSIUM 5.8 MMOL/L (3.5-5.1); SODIUM 135 MMOL/L (136-145)
--- NOTE | 2020-08-01 06:20 | NUR ---
Pt stable, weaning off of levophed as able. Repositioned and provided oral care. Will continue to monitor.
[2020-08-01] MEDS: Versed 100mg/NS 200ml 200 ML IV PRN ×3 (06:54→21:52)
--- NOTE | 2020-08-01 07:00 | NUR ---
RESPIRATORY NOTE: Received pt mechanically ventilated on AC/VC+ 20, 450, +10, 100% FiO2. SpO2 96% on current settings. Pt is intubated with 7.5 ETT secured with an anchorfast 24cm at the lipline. Bilateral b/s are clear/ diminished throughout with equal chest rise. SXN small amount of clear/ white secretions endotracheally. Vent is plugged into red outlet. Alarms are on and audible. No s/s of respiratory distress noted at this time.
--- NOTE | 2020-08-01 07:11 | NUR ---
Report given to LIANA Faith who assumed care of patient.
--- NOTE | 2020-08-01 07:58 | Cardiology Progress Note ---
Assessment/Plan Status: deteriorating, fever Assessment/Plan 1. COVID-19 viral PNA s/p remdesivir and dexamethasone WBCs elevated 2. Respiratory failure 2/2 acute PNA Intubated 07/25/20 3. HFpEF acute on chronic diastolic HF with preserved EF EF 65%, per repeat echo post intubation Lasix for diuresis as needed BNP repeat study pending 4. 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 Sinus tachycardia 2/2 fever and infection 7. Hypotension 2/2 shock, Levophed as needed Pt with fever and leukocytosis still vent dependent. Levophed per critical care team, wean off as tolerated. Repeat echo, BNP, trop. Lasix as needed per pulmonlogy recs. Subjective ROS Limited/Unobtainable: Yes Subjective Hypotensive overnight, started on Levophed now weaned off this morning. Intubated and on vent, in sinus rhythm. Seen in ICU Objective Last 24 Hour Vital Signs Date Time Temp Pulse Resp B/P (MAP) Pulse Ox O2 Delivery O2 Flow Rate FiO2 08/01/20 07:30 98 22 98/54 (69) 96 08/01/20 07:15 95 23 98/55 (69) 96 08/01/20 07:00 96 21 98/55 (69) 97 08/01/20 07:00 22 98/55 Mechanical Ventilator 100 08/01/20 07:00 22 98/55 Mechanical Ventilator 100 08/01/20 06:54 22 109/60 Mechanical Ventilator 100 08/01/20 06:30 91 23 114/66 (82) 99 08/01/20 06:15 92 21 110/58 (75) 98 08/01/20 06:00 98.5 92 21 108/60 (76) 99 08/01/20 06:00 26 106/62 Mechanical Ventilator 100 08/01/20 06:00 26 110/62 Mechanical Ventilator 100 08/01/20 05:45 92 20 120/66 (84) 99 08/01/20 05:30 95 20 121/67 (85) 99 08/01/20 05:15 94 21 125/69 (87) 94 08/01/20 05:00 91 23 108/68 (81) 97 08/01/20 05:00 26 105/62 Mechanical Ventilator 100 08/01/20 05:00 26 105/58 Mechanical Ventilator 100 08/01/20 04:45 90 23 113/60 (77) 97 08/01/20 04:30 89 22 110/61 (77) 98 08/01/20 04:15 90 23 114/59 (77) 98 08/01/20 04:00 Mechanical Ventilator 08/01/20 04:00 90 08/01/20 04:00 100 08/01/20 04:00 99.5 89 21 107/56 (73) 98 08/01/20 04:00 22 114/59 Mechanical Ventilator 100 08/01/20 04:00 22 114/59 Mechanical Ventilator 100 08/01/20 03:46 99 21 150/95 (113) 98 08/01/20 03:30 92 20 85/44 (58) 100 08/01/20 03:15 93 21 106/50 (68) 99 08/01/20 03:12 91 20 100 08/01/20 03:00 93 20 108/63 (78) 100 08/01/20 03:00 21 106/50 Mechanical Ventilator 100 08/01/20 03:00 21 106/50 Mechanical Ventilator 100 08/01/20 02:45 93 21 96/55 (69) 100 08/01/20 02:30 91 20 104/60 (75) 100 08/01/20 02:15 97 20 100/58 (72) 99 08/01/20 02:00 95 20 102/59 (73) 100 08/01/20 02:00 20 100/58 Mechanical Ventilator 100 08/01/20 02:00 20 100/58 Mechanical Ventilator 100 08/01/20 01:45 98 20 106/61 (76) 100 08/01/20 01:37 78/46 08/01/20 01:30 99 20 82/50 (61) 98 08/01/20 01:15 106 20 91/47 (62) 85 08/01/20 01:00 112 27 121/56 (77) 67 08/01/20 01:00 26 106/52 Mechanical Ventilator 100 08/01/20 01:00 26 106/52 Mechanical Ventilator 100 08/01/20 00:45 92 22 82/46 (58) 95 08/01/20 00:35 94 24 80/47 (58) 95 08/01/20 00:30 93 23 80/48 (59) 95 08/01/20 00:29 93 23 80/45 (57) 95 08/01/20 00:15 91 22 80/45 (57) 95 08/01/20 00:02 92 22 78/46 (57) 94 08/01/20 00:00 28 78/47 Mechanical Ventilator 100 08/01/20 00:00 28 78/47 Mechanical Ventilator 100 08/01/20 00:00 98.8 93 23 77/42 (54) 94 08/01/20 00:00 94 08/01/20 00:00 Mechanical Ventilator 07/31/20 23:45 93 23 86/47 (60) 94 07/31/20 23:30 93 22 82/47 (59) 93 07/31/20 23:15 94 23 83/43 (56) 93 07/31/20 23:00 23 81/45 Mechanical Ventilator 100 07/31/20 23:00 23 81/45 Mechanical Ventilator 100 07/31/20 23:00 94 23 81/45 (57) 93 07/31/20 22:58 94 21 80/45 (57) 94 07/31/20 22:45 93 21 83/43 (56) 95 07/31/20 22:30 95 23 84/43 (57) 97 07/31/20 22:25 96 22 83/45 (58) 97 07/31/20 22:22 96 22 82/46 (58) 97 07/31/20 22:15 96 22 82/43 (56) 97 07/31/20 22:00 22 86/46 Mechanical Ventilator 100 07/31/20 22:00 22 86/46 Mechanical Ventilator 100 07/31/20 22:00 101 22 86/46 (59) 98 07/31/20 21:45 104 21 87/48 (61) 98 07/31/20 21:30 106 21 93/48 (63) 99 07/31/20 21:15 111 20 85/50 (62) 97 07/31/20 21:00 118 23 97/47 (64) 82 07/31/20 21:00 22 87/56 Mechanical Ventilator 100 07/31/20 21:00 20 85/50 Mechanical Ventilator 100 07/31/20 21:00 108 84/47 07/31/20 20:45 123 25 110/48 (68) 73 07/31/20 20:30 116 22 100/51 (67) 86 07/31/20 20:15 114 20 90/52 (65) 91 07/31/20 20:00 Mechanical Ventilator 07/31/20 20:00 20 98/53 Mechanical Ventilator 100 07/31/20 20:00 20 98/53 Mechanical Ventilator 100 07/31/20 20:00 115 07/31/20 20:00 100.3 115 21 98/53 (68) 89 07/31/20 20:00 100 07/31/20 19:45 115 21 89/48 (62) 93 07/31/20 19:30 113 22 101/51 (68) 96 07/31/20 19:15 114 22 97/49 (65) 96 07/31/20 19:00 116 22 105/58 (74) 94 07/31/20 19:00 117 21 100 07/31/20 19:00 22 105/58 Mechanical Ventilator 100 07/31/20 19:00 22 105/58 Mechanical Ventilator 100 07/31/20 18:30 113 22 110/60 (77) 96 07/31/20 18:30 99.8 07/31/20 18:00 20 100/60 Endotracheal Tube 100 07/31/20 18:00 20 110/60 Endotracheal Tube 100 07/31/20 18:00 113 22 111/58 (75) 96 07/31/20 17:45 20 113/64 Endotracheal Tube 100 07/31/20 17:30 113 23 110/60 (77) 96 07/31/20 17:00 109 21 106/59 (75) 98 07/31/20 17:00 20 106/59 Endotracheal Tube 85 07/31/20 17:00 20 106/59 Endotracheal Tube 85 07/31/20 16:30 108 20 96/49 (65) 97 07/31/20 16:00 Mechanical Ventilator 07/31/20 16:00 20 107/59 Endotracheal Tube 85 07/31/20 16:00 20 107/59 Endotracheal Tube 100 07/31/20 16:00 108 20 107/59 (75) 95 07/31/20 16:00 100 07/31/20 16:00 100.8 07/31/20 16:00 107 07/31/20 15:10 101 22 100 07/31/20 15:00 20 99/55 Endotracheal Tube 85 07/31/20 15:00 20 99/55 Endotracheal Tube 85 07/31/20 15:00 105 21 99/55 (70) 92 07/31/20 14:30 105 21 100/53 (69) 92 07/31/20 14:00 107 21 102/52 (69) 92 07/31/20 14:00 20 102/52 Endotracheal Tube 85 07/31/20 14:00 20 102/52 Endotracheal Tube 85 07/31/20 13:30 105 21 99/53 (68) 95 07/31/20 13:00 20 102/55 Endotracheal Tube 85 07/31/20 13:00 20 102/55 Endotracheal Tube 85 07/31/20 13:00 104 21 102/55 (71) 96 07/31/20 12:30 99.9 108 21 113/62 (79) 95 07/31/20 12:00 Mechanical Ventilator 07/31/20 12:00 108 07/31/20 12:00 20 103/60 Endotracheal Tube 85 07/31/20 12:00 20 103/60 Endotracheal Tube 85 07/31/20 12:00 103 22 103/60 (74) 88 07/31/20 12:00 85 07/31/20 11:55 104 22 85 07/31/20 11:30 94 22 95/51 (66) 94 07/31/20 11:00 91 22 94/54 (67) 94 07/31/20 11:00 20 99/58 Endotracheal Tube 85 07/31/20 11:00 20 99/58 Endotracheal Tube 85 07/31/20 10:30 94 18 99/58 (72) 93 07/31/20 10:01 20 94/54 Endotracheal Tube 85 07/31/20 10:00 93 20 94/54 (67) 93 07/31/20 10:00 20 94/54 Endotracheal Tube 85 07/31/20 10:00 20 94/54 Endotracheal Tube 85 07/31/20 09:10 104 21 85 07/31/20 09:02 98 97/50 07/31/20 09:00 97 20 97/50 (66) 07/31/20 09:00 20 97/50 Endotracheal Tube 100 07/31/20 09:00 20 97/50 Endotracheal Tube 100 07/31/20 08:30 99 20 101/54 (70) 07/31/20 08:00 21 96/51 Mechanical Ventilator 100 07/31/20 08:00 21 96/51 Endotracheal Tube 100 07/31/20 08:00 99.9 99 20 96/51 (66) 100 07/31/20 08:00 Mechanical Ventilator 07/31/20 08:00 100 07/31/20 08:00 98 General Appearance: no apparent distress EENT: PERRL/EOMI Neck: no JVD Rhythm: NSR Cardiovascular: normal rate Respiratory/Chest: no respiratory distress Abdomen: soft Intake and Output 07/31/20 08/01/20 19:00 07:00 Intake Total 1180 ml 1277.5 ml Output Total 825 ml 940 ml Balance 355 ml 337.5 ml Free Water 100 ml 240 ml IV Total 420 ml 432.5 ml Tube Feeding 660 ml 605 ml Output Urine Total 825 ml 940 ml # Bowel Movements 1 Laboratory Tests Test 08/01/20 04:10 White Blood Count 17.8 K/UL (4.8-10.8) H Red Blood Count 2.64 M/UL (4.20-5.40) L Hemoglobin 7.6 G/DL (12.0-16.0) L Hematocrit 24.5 % (37.0-47.0) L Mean Corpuscular Volume 93 FL (80-99) Mean Corpuscular Hemoglobin 28.9 PG (27.0-31.0) Mean Corpuscular Hemoglobin Concent 31.3 G/DL (32.0-36.0) L Red Cell Distribution Width 14.0 % (11.6-14.8) Platelet Count 185 K/UL (150-450) Mean Platelet Volume 11.3 FL (6.5-10.1) H Neutrophils (%) (Auto) % (45.0-75.0) Lymphocytes (%) (Auto) % (20.0-45.0) Monocytes (%) (Auto) % (1.0-10.0) Eosinophils (%) (Auto) % (0.0-3.0) Basophils (%) (Auto) % (0.0-2.0) Neutrophils % (Manual) Pending Lymphocytes % (Manual) Pending Platelet Estimate Pending Platelet Morphology Pending Sodium Level 135 MMOL/L (136-145) L Potassium Level 5.8 MMOL/L (3.5-5.1) H Chloride Level 101 MMOL/L (98-107) Carbon Dioxide Level 31 MMOL/L (21-32) Anion Gap 3 mmol/L (5-15) L Blood Urea Nitrogen 28 mg/dL (7-18) H Creatinine 0.9 MG/DL (0.55-1.30) Estimat Glomerular Filtration Rate > 60 mL/min (>60) Glucose Level 323 MG/DL (74-106) H Calcium Level 8.5 MG/DL (8.5-10.1) Phosphorus Level 3.5 MG/DL (2.5-4.9) Magnesium Level 2.3 MG/DL (1.8-2.4) Total Bilirubin 0.2 MG/DL (0.2-1.0) Aspartate Amino Transf (AST/SGOT) 41 U/L (15-37) H Alanine Aminotransferase (ALT/SGPT) 31 U/L (12-78) Alkaline Phosphatase 70 U/L (46-116) C-Reactive Protein, Quantitative 3.6 mg/dL (0.00-0.90) H Pro-B-Type Natriuretic Peptide 713 pg/mL (0-125) H Total Protein 4.8 G/DL (6.4-8.2) L Albumin 1.4 G/DL (3.4-5.0) L Globulin 3.4 g/dL Albumin/Globulin Ratio 0.4 (1.0-2.7) L Microbiology Date/Time Source Procedure Growth Status 07/31/20 08:40 Nasopharynx SARS-CoV-2 Antigen (Rapid)(ABHI) - Final Complete Blanca Lobato PA-C Aug 01, 2020 07:58
--- NOTE | 2020-08-01 07:59 | NUR ---
RD ASSESSMENT & RECOMMENDATIONS SEE CARE ACTIVITY FOR COMPLETE ASSESSMENT DAILY ESTIMATED NEEDS: Needs based on Critical care, DM, pulmonary/ 57.6kg abw 22-28 kcals/kg 1084-7649 total kcals 1.2-2 g protein/kg 69-115 g total protein Fluid per MD NUTRITION DIAGNOSIS: Altered nutrition related lab values R/T diabetes and steroidal med as evidenced by A1C 6.9 w/ elev POC (200's and 300's), now on solumedrol. CURRENT TF:Glucerna 1.2 @ 55ml/hr x 24 hrs ENTERAL NUTRITION RECOMMENDATIONS: Glucerna 1.2 g @ 55ml/hr x24 hrs to provide 1320ml, 1584 kcal, 79g pro, 1063ml free H2O - Maintain current TF - Flush per MD - HOB over 30 degrees ADDITIONAL RECOMMENDATIONS: * Calibrated bedscale wt * Monitor K need for TF change (K 5.8 08/01) * Monitor BGs closely w/ Solumderol, rec to increase Levemir -> POC glu in the 200's and 300's * Monitor hemodynamic stability- NE held .
[2020-08-01] MEDS: Cefepime HCl 2 GM in D5W 55 ML IVPB SCH ×2 (08:45→21:26)
[2020-08-01] MEDS: Docusate 100mg/10ml Liq NG SCH ×3 (08:46→18:09)
[2020-08-01] MEDS: Trimethoprim/Sulfamethoxazole 20 ML in D5W 500ml 550 ML IV SCH ×2 (08:46→21:23)
[2020-08-01] MEDS: Levemir Flexpen SUBQ SCH ×2 (08:53→21:30)
[2020-08-01] MEDS: fentaNYL 2500mcg/NS 250ml 250 ML IV PRN ×2 (09:29→23:56)
[2020-08-01] MEDS ORDERED: Sodium Polystyrene Sulfonate 15gm Powder NG SCH (09:30)
--- NOTE | 2020-08-01 10:37 | Pulmonology Progress Note ---
Subjective ROS Limited/Unobtainable: Yes Interval Events: S/p intubation Constitutional: Reports: no symptoms, fever, other - Tmax=99.9 HEENT: Repors: no symptoms Respiratory: Reports: shortness of breath Gastrointestinal/Abdominal: Reports: no symptoms Psychiatric: Reports: no symptoms Skin: Reports: no symptoms Musculoskeletal: Reports: no symptoms Allergies: Coded Allergies: No Known Allergies (Unverified , 07/07/20) Objective Last 24 Hour Vital Signs Date Time Temp Pulse Resp B/P (MAP) Pulse Ox O2 Delivery O2 Flow Rate FiO2 08/01/20 10:00 114 22 113/59 (77) 67 08/01/20 09:45 21 107/58 (74) 92 08/01/20 09:30 20 106/56 (73) 96 08/01/20 09:29 22 102/56 Endotracheal Tube 100 08/01/20 09:15 22 102/56 (71) 97 08/01/20 09:00 22 111/64 (80) 97 08/01/20 08:45 22 103/55 (71) 97 08/01/20 08:30 21 108/55 (72) 97 08/01/20 08:15 101 20 110/59 (76) 97 08/01/20 08:00 99.9 99 20 104/57 (73) 96 08/01/20 08:00 100 08/01/20 08:00 20 108/55 Endotracheal Tube 100 08/01/20 08:00 20 108/55 Endotracheal Tube 100 08/01/20 08:00 Mechanical Ventilator 08/01/20 08:00 95 08/01/20 07:30 98 22 98/54 (69) 96 08/01/20 07:15 95 23 98/55 (69) 96 08/01/20 07:00 100 22 100 08/01/20 07:00 96 21 98/55 (69) 97 08/01/20 07:00 22 98/55 Mechanical Ventilator 100 08/01/20 07:00 22 98/55 Mechanical Ventilator 100 08/01/20 06:54 22 109/60 Mechanical Ventilator 100 08/01/20 06:30 91 23 114/66 (82) 99 08/01/20 06:15 92 21 110/58 (75) 98 08/01/20 06:00 98.5 92 21 108/60 (76) 99 08/01/20 06:00 26 106/62 Mechanical Ventilator 100 08/01/20 06:00 26 110/62 Mechanical Ventilator 100 08/01/20 05:45 92 20 120/66 (84) 99 08/01/20 05:30 95 20 121/67 (85) 99 08/01/20 05:15 94 21 125/69 (87) 94 08/01/20 05:00 91 23 108/68 (81) 97 08/01/20 05:00 26 105/62 Mechanical Ventilator 100 08/01/20 05:00 26 105/58 Mechanical Ventilator 100 08/01/20 04:45 90 23 113/60 (77) 97 08/01/20 04:30 89 22 110/61 (77) 98 08/01/20 04:15 90 23 114/59 (77) 98 08/01/20 04:00 Mechanical Ventilator 08/01/20 04:00 90 08/01/20 04:00 100 08/01/20 04:00 99.5 89 21 107/56 (73) 98 08/01/20 04:00 22 114/59 Mechanical Ventilator 100 08/01/20 04:00 22 114/59 Mechanical Ventilator 100 08/01/20 03:46 99 21 150/95 (113) 98 08/01/20 03:30 92 20 85/44 (58) 100 08/01/20 03:15 93 21 106/50 (68) 99 08/01/20 03:12 91 20 100 08/01/20 03:00 93 20 108/63 (78) 100 08/01/20 03:00 21 106/50 Mechanical Ventilator 100 08/01/20 03:00 21 106/50 Mechanical Ventilator 100 08/01/20 02:45 93 21 96/55 (69) 100 08/01/20 02:30 91 20 104/60 (75) 100 08/01/20 02:15 97 20 100/58 (72) 99 08/01/20 02:00 95 20 102/59 (73) 100 08/01/20 02:00 20 100/58 Mechanical Ventilator 100 08/01/20 02:00 20 100/58 Mechanical Ventilator 100 08/01/20 01:45 98 20 106/61 (76) 100 08/01/20 01:37 78/46 08/01/20 01:30 99 20 82/50 (61) 98 08/01/20 01:15 106 20 91/47 (62) 85 08/01/20 01:00 112 27 121/56 (77) 67 08/01/20 01:00 26 106/52 Mechanical Ventilator 100 08/01/20 01:00 26 106/52 Mechanical Ventilator 100 08/01/20 00:45 92 22 82/46 (58) 95 08/01/20 00:35 94 24 80/47 (58) 95 08/01/20 00:30 93 23 80/48 (59) 95 08/01/20 00:29 93 23 80/45 (57) 95 08/01/20 00:15 91 22 80/45 (57) 95 08/01/20 00:02 92 22 78/46 (57) 94 08/01/20 00:00 28 78/47 Mechanical Ventilator 100 08/01/20 00:00 28 78/47 Mechanical Ventilator 100 08/01/20 00:00 98.8 93 23 77/42 (54) 94 08/01/20 00:00 94 08/01/20 00:00 Mechanical Ventilator 07/31/20 23:45 93 23 86/47 (60) 94 07/31/20 23:30 93 22 82/47 (59) 93 07/31/20 23:15 94 23 83/43 (56) 93 07/31/20 23:00 23 81/45 Mechanical Ventilator 100 07/31/20 23:00 23 81/45 Mechanical Ventilator 100 07/31/20 23:00 94 23 81/45 (57) 93 07/31/20 22:58 94 21 80/45 (57) 94 07/31/20 22:45 93 21 83/43 (56) 95 07/31/20 22:30 95 23 84/43 (57) 97 07/31/20 22:25 96 22 83/45 (58) 97 07/31/20 22:22 96 22 82/46 (58) 97 07/31/20 22:15 96 22 82/43 (56) 97 07/31/20 22:00 22 86/46 Mechanical Ventilator 100 07/31/20 22:00 22 86/46 Mechanical Ventilator 100 07/31/20 22:00 101 22 86/46 (59) 98 07/31/20 21:45 104 21 87/48 (61) 98 07/31/20 21:30 106 21 93/48 (63) 99 07/31/20 21:15 111 20 85/50 (62) 97 07/31/20 21:00 118 23 97/47 (64) 82 07/31/20 21:00 22 87/56 Mechanical Ventilator 100 07/31/20 21:00 20 85/50 Mechanical Ventilator 100 07/31/20 21:00 108 84/47 07/31/20 20:45 123 25 110/48 (68) 73 07/31/20 20:30 116 22 100/51 (67) 86 07/31/20 20:15 114 20 90/52 (65) 91 07/31/20 20:00 Mechanical Ventilator 07/31/20 20:00 20 98/53 Mechanical Ventilator 100 07/31/20 20:00 20 98/53 Mechanical Ventilator 100 07/31/20 20:00 115 07/31/20 20:00 100.3 115 21 98/53 (68) 89 07/31/20 20:00 100 07/31/20 19:45 115 21 89/48 (62) 93 07/31/20 19:30 113 22 101/51 (68) 96 07/31/20 19:15 114 22 97/49 (65) 96 07/31/20 19:00 116 22 105/58 (74) 94 07/31/20 19:00 117 21 100 07/31/20 19:00 22 105/58 Mechanical Ventilator 100 07/31/20 19:00 22 105/58 Mechanical Ventilator 100 07/31/20 18:30 113 22 110/60 (77) 96 07/31/20 18:30 99.8 07/31/20 18:00 20 100/60 Endotracheal Tube 100 07/31/20 18:00 20 110/60 Endotracheal Tube 100 07/31/20 18:00 113 22 111/58 (75) 96 07/31/20 17:45 20 113/64 Endotracheal Tube 100 07/31/20 17:30 113 23 110/60 (77) 96 07/31/20 17:00 109 21 106/59 (75) 98 07/31/20 17:00 20 106/59 Endotracheal Tube 85 07/31/20 17:00 20 106/59 Endotracheal Tube 85 07/31/20 16:30 108 20 96/49 (65) 97 07/31/20 16:00 Mechanical Ventilator 07/31/20 16:00 20 107/59 Endotracheal Tube 85 07/31/20 16:00 20 107/59 Endotracheal Tube 100 07/31/20 16:00 108 20 107/59 (75) 95 07/31/20 16:00 100 07/31/20 16:00 100.8 07/31/20 16:00 107 07/31/20 15:10 101 22 100 07/31/20 15:00 20 99/55 Endotracheal Tube 85 07/31/20 15:00 20 99/55 Endotracheal Tube 85 07/31/20 15:00 105 21 99/55 (70) 92 07/31/20 14:30 105 21 100/53 (69) 92 07/31/20 14:00 107 21 102/52 (69) 92 07/31/20 14:00 20 102/52 Endotracheal Tube 85 07/31/20 14:00 20 102/52 Endotracheal Tube 85 07/31/20 13:30 105 21 99/53 (68) 95 07/31/20 13:00 20 102/55 Endotracheal Tube 85 07/31/20 13:00 20 102/55 Endotracheal Tube 85 07/31/20 13:00 104 21 102/55 (71) 96 07/31/20 12:30 99.9 108 21 113/62 (79) 95 07/31/20 12:00 Mechanical Ventilator 07/31/20 12:00 108 07/31/20 12:00 20 103/60 Endotracheal Tube 85 07/31/20 12:00 20 103/60 Endotracheal Tube 85 07/31/20 12:00 103 22 103/60 (74) 88 07/31/20 12:00 85 07/31/20 11:55 104 22 85 07/31/20 11:30 94 22 95/51 (66) 94 07/31/20 11:00 91 22 94/54 (67) 94 07/31/20 11:00 20 99/58 Endotracheal Tube 85 07/31/20 11:00 20 99/58 Endotracheal Tube 85 Intake and Output 07/31/20 08/01/20 19:00 07:00 Intake Total 1180 ml 1332.5 ml Output Total 825 ml 1015 ml Balance 355 ml 317.5 ml Free Water 100 ml 240 ml IV Total 420 ml 432.5 ml Tube Feeding 660 ml 660 ml Output Urine Total 825 ml 1015 ml # Bowel Movements 1 General Appearance: no acute distress HEENT: normocephalic Respiratory: decreased breath sounds Cardiovascular: normal peripheral pulses Abdomen: normal bowel sounds Microbiology Date/Time Source Procedure Growth Status 07/31/20 08:40 Nasopharynx SARS-CoV-2 Antigen (Rapid)(ABHI) - Final Complete Laboratory Tests 08/01/20 04:10: White Blood Count 17.8H, Red Blood Count 2.64L, Hemoglobin 7.6L, Hematocrit 24.5L, Mean Corpuscular Volume 93, Mean Corpuscular Hemoglobin 28.9, Mean Corpuscular Hemoglobin Concent 31.3L, Red Cell Distribution Width 14.0, Platelet Count 185, Mean Platelet Volume 11.3H, Neutrophils (%) (Auto) , Lymphocytes (%) (Auto) , Monocytes (%) (Auto) , Eosinophils (%) (Auto) , Basophils (%) (Auto) , Differential Total Cells Counted 100, Neutrophils % (Manual) 92H, Lymphocytes % (Manual) 3L, Monocytes % (Manual) 5, Eosinophils % (Manual) 0, Basophils % (Manual) 0, Band Neutrophils 0, Platelet Estimate Adequate, Platelet Morphology Normal, Hypochromasia 2+, Anisocytosis 1+, Sodium Level 135L, Potassium Level 5.8H, Chloride Level 101, Carbon Dioxide Level 31, Anion Gap 3L, Blood Urea Nitrogen 28H, Creatinine 0.9, Estimat Glomerular Filtration Rate > 60, Glucose Level 323H, Calcium Level 8.5, Phosphorus Level 3.5, Magnesium Level 2.3, Total Bilirubin 0.2, Aspartate Amino Transf (AST/SGOT) 41H, Alanine Aminotransferase (ALT/SGPT) 31, Alkaline Phosphatase 70, Troponin I 0.044, C-Reactive Protein, Quantitative 3.6H, Pro-B-Type Natriuretic Peptide 785H, Total Protein 4.8L, Albumin 1.4L, Globulin 3.4, Albumin/Globulin Ratio 0.4L Current Medications Medications (Trade) Dose Ordered Sig/Marian Route PRN Reason Start Time Stop Time Status Last Admin Dose Admin Acetaminophen (Tylenol) 650 mg Q4H PRN RECTAL Temp >100.5 07/18/20 18:30 08/17/20 18:29 07/31/20 17:45 Acetaminophen (Tylenol) 650 mg Q6H PRN ORAL For Pain 07/07/20 15:45 08/06/20 15:44 07/29/20 16:28 Acetaminophen (Tylenol) 650 mg Q6H PRN ORAL FEVER 07/07/20 16:15 08/06/20 16:14 07/30/20 12:36 Benzonatate (Tessalon Perles) 100 mg TIDPRN PRN ORAL For Cough 07/18/20 18:30 08/17/20 18:29 Cefepime HCl 2 gm/ Dextrose 55 ml @ 110 mls/hr Q12HR IVPB 07/22/20 13:00 08/04/20 14:00 08/01/20 08:45 Chlorhexidine Gluconate (Rafaela-Hex 2%) 1 applic DAILY@2000 TOPIC 08/01/20 20:00 10/30/20 19:59 Dextrose (Dextrose 50%) 25 ml Q30M PRN IV Hypoglycemia 07/07/20 15:45 10/05/20 15:44 Dextrose (Dextrose 50%) 50 ml Q30M PRN IV Hypoglycemia 07/07/20 15:45 10/05/20 15:44 Docusate Sodium (Colace) 100 mg TID NG 07/29/20 13:00 08/25/20 17:59 08/01/20 08:46 Enoxaparin Sodium (Lovenox) 70 mg EVERY 12 HOURS SUBQ 07/25/20 21:00 10/23/20 20:59 07/31/20 20:41 Famotidine (Pepcid I.v.) 20 mg Q12HR IVP 07/20/20 09:00 08/19/20 08:59 08/01/20 08:46 Fentanyl Citrate 250 ml @ 1 mls/hr Q24H PRN IV SEDATION 07/29/20 15:00 08/02/20 14:59 08/01/20 09:29 Fluconazole/ Sodium Chloride 200 ml @ 100 mls/hr Q24H IV 07/22/20 14:00 08/04/20 13:59 07/31/20 14:56 Insulin Aspart (NovoLOG) Q6HR SUBQ 07/26/20 12:00 10/24/20 11:59 08/01/20 05:19 Insulin Detemir (Levemir) 25 units Q12HR SUBQ 07/29/20 21:00 10/24/20 10:29 08/01/20 08:53 Methylprednisolone Sodium Succinate (Solu-MEDROL) 20 mg EVERY 6 HOURS IVP 07/22/20 12:00 10/19/20 08:59 08/01/20 05:18 Metoprolol Tartrate (Lopressor) 25 mg EVERY 12 HOURS NG 07/26/20 21:00 10/24/20 20:59 07/31/20 09:02 Midazolam HCl 200 ml @ 0 mls/hr Q24H PRN IV Agitation 07/29/20 22:45 08/05/20 22:44 08/01/20 06:54 Norepinephrine Bitartrate 250 ml @ 0 mls/hr Q24H IV 08/01/20 00:45 08/04/20 00:33 08/01/20 01:37 Sodium Chloride 1,000 ml @ 75 mls/hr [id number] IV 08/01/20 09:00 08/31/20 08:59 08/01/20 09:12 Sorbitol (sorbitoL) 45 ml Q12HR PRN ORAL Constipation 07/30/20 09:15 08/29/20 09:14 Trimethoprim/ Sulfamethoxazole 20 ml/Dextrose 570 ml @ 380 mls/hr Q12HR IV 07/29/20 21:00 08/05/20 20:59 08/01/20 08:46 Vancomycin HCl (Vanco pharmacy to dose) 1 ea DAILY PRN MISC Per rx protocol 07/27/20 10:00 08/26/20 09:59 Vancomycin HCl 750 mg/Sodium Chloride 275 ml @ 183.333 mls/hr Q12HR@1100,2300 IVPB 07/27/20 23:00 08/05/20 23:59 07/31/20 22:24 Assessment/Plan Assessment/Plan 1. COVID-19 pneumonia. - COVID-19 PCR positive (07/07) - s/p remdexsivir - s/p azithromycin - CXR (07/13) no significant change - f/u rapid COVID-19 (07/31) negative 2. Hypoxemic respiratory distress - s/p decadron (07/08-07/17) - now on Solu-Medrol - intubated; on AC mode - FiO2 100%; continue PEEP 7->8 -> 10 - episodically desaturates to 70% -attempt proning 3. Hypertension. - currently hypotensive - Required central line 08/01/20 - - was on Levophed briefly overnight 4. Diabetes mellitus. -on insulin sliding scale 5. DVT ppx - on Lovenox, full dose empirically 6. Sputum Cx shows pseudomonas and cony - on Abx 7. Suspect bacterial infection given leukocytosis - ordered fungal culture, BCx (07/20) - on empiric Diflucan; WBC continues to be high - On Cefepime - also on IV Vanco - added IV Bactrim for possible PJP 8. Pulmonary edema -Off lasix gtt Discussed with bedside RN. On IV vanco On Vu Pierre MD Aug 01, 2020 10:37
[2020-08-01] MEDS: Vancomycin 750mg/NS 275ml IVPB SCH ×4 (10:40→23:20)
[2020-08-01] MEDS: Enoxaparin 80mg Inj SUBQ SCH ×2 (10:42→21:23)
--- NOTE | 2020-08-01 10:50 | NUR ---
0715: Received report from Jacki GAINES. Pt remains intubated and sedated. Pt is off of Levophed. Pt with R femoral central line. Pt with tube feed at goal infusing through OGT. 0830: Cardiology at bedside. Will repeat ECHO today. Verbal orders to hold metoprolol for upcoming dose then follow parameters accordingly. 1000: Spoke with Dr. De Luna, orders not to hold lovenox and to repeat CBC at noon and transfuse 1 unit for hemoglobin less than 7.5 1030: Spoke with Dr. Edward., verbal orders for ABG. Pt had O2 saturation in the 60's. Respiratory was called to bedside. Bite block was placed along with sedation and pt O2 increased to 96%. 11:00: Following ABG, Verbal orders to titrate RR to 22. Respiratory aware. Vent order placed. ECHO being done at this time.
--- NOTE | 2020-08-01 10:54 | NUR ---
RESPIRATORY NOTE: Increased RR to [address] Edward. RN aware. Bite block in place due to pt clenching down on tube and causing desaturations. Will continue to closely monitor.
--- NOTE | 2020-08-01 12:15 | General Progress Note ---
Subjective ROS Limited/Unobtainable: No Allergies: Coded Allergies: No Known Allergies (Unverified , 07/07/20) Subjective no event over night had BM tolerating TF Objective Last 24 Hour Vital Signs Date Time Temp Pulse Resp B/P (MAP) Pulse Ox O2 Delivery O2 Flow Rate FiO2 08/01/20 11:00 110 23 110/61 (77) 96 08/01/20 11:00 23 110/61 Mechanical Ventilator 100 08/01/20 11:00 23 110/61 Endotracheal Tube 100 08/01/20 10:51 112 23 100 08/01/20 10:45 111 21 116/64 (81) 97 08/01/20 10:30 125 26 132/60 (84) 66 08/01/20 10:15 120 25 113/55 (74) 63 08/01/20 10:00 22 113/59 Mechanical Ventilator 100 08/01/20 10:00 22 113/59 Mechanical Ventilator 100 08/01/20 10:00 114 22 113/59 (77) 67 08/01/20 09:45 21 107/58 (74) 92 08/01/20 09:30 20 106/56 (73) 96 08/01/20 09:29 22 102/56 Endotracheal Tube 100 08/01/20 09:15 22 102/56 (71) 97 08/01/20 09:00 22 111/64 (80) 97 08/01/20 09:00 22 113/59 Mechanical Ventilator 100 08/01/20 09:00 22 111/64 Mechanical Ventilator 100 08/01/20 08:45 22 103/55 (71) 97 08/01/20 08:30 21 108/55 (72) 97 08/01/20 08:15 101 20 110/59 (76) 97 08/01/20 08:00 99.9 99 20 104/57 (73) 96 08/01/20 08:00 100 08/01/20 08:00 20 108/55 Endotracheal Tube 100 08/01/20 08:00 20 108/55 Endotracheal Tube 100 08/01/20 08:00 Mechanical Ventilator 08/01/20 08:00 95 08/01/20 07:30 98 22 98/54 (69) 96 08/01/20 07:15 95 23 98/55 (69) 96 08/01/20 07:00 100 22 100 08/01/20 07:00 96 21 98/55 (69) 97 08/01/20 07:00 22 98/55 Mechanical Ventilator 100 08/01/20 07:00 22 98/55 Mechanical Ventilator 100 08/01/20 06:54 22 109/60 Mechanical Ventilator 100 08/01/20 06:30 91 23 114/66 (82) 99 08/01/20 06:15 92 21 110/58 (75) 98 08/01/20 06:00 98.5 92 21 108/60 (76) 99 08/01/20 06:00 26 106/62 Mechanical Ventilator 100 08/01/20 06:00 26 110/62 Mechanical Ventilator 100 08/01/20 05:45 92 20 120/66 (84) 99 08/01/20 05:30 95 20 121/67 (85) 99 08/01/20 05:15 94 21 125/69 (87) 94 08/01/20 05:00 91 23 108/68 (81) 97 08/01/20 05:00 26 105/62 Mechanical Ventilator 100 08/01/20 05:00 26 105/58 Mechanical Ventilator 100 08/01/20 04:45 90 23 113/60 (77) 97 08/01/20 04:30 89 22 110/61 (77) 98 08/01/20 04:15 90 23 114/59 (77) 98 08/01/20 04:00 Mechanical Ventilator 08/01/20 04:00 90 08/01/20 04:00 100 08/01/20 04:00 99.5 89 21 107/56 (73) 98 08/01/20 04:00 22 114/59 Mechanical Ventilator 100 08/01/20 04:00 22 114/59 Mechanical Ventilator 100 08/01/20 03:46 99 21 150/95 (113) 98 08/01/20 03:30 92 20 85/44 (58) 100 08/01/20 03:15 93 21 106/50 (68) 99 08/01/20 03:12 91 20 100 08/01/20 03:00 93 20 108/63 (78) 100 08/01/20 03:00 21 106/50 Mechanical Ventilator 100 08/01/20 03:00 21 106/50 Mechanical Ventilator 100 08/01/20 02:45 93 21 96/55 (69) 100 08/01/20 02:30 91 20 104/60 (75) 100 08/01/20 02:15 97 20 100/58 (72) 99 08/01/20 02:00 95 20 102/59 (73) 100 08/01/20 02:00 20 100/58 Mechanical Ventilator 100 08/01/20 02:00 20 100/58 Mechanical Ventilator 100 08/01/20 01:45 98 20 106/61 (76) 100 08/01/20 01:37 78/46 08/01/20 01:30 99 20 82/50 (61) 98 08/01/20 01:15 106 20 91/47 (62) 85 08/01/20 01:00 112 27 121/56 (77) 67 08/01/20 01:00 26 106/52 Mechanical Ventilator 100 08/01/20 01:00 26 106/52 Mechanical Ventilator 100 08/01/20 00:45 92 22 82/46 (58) 95 08/01/20 00:35 94 24 80/47 (58) 95 08/01/20 00:30 93 23 80/48 (59) 95 08/01/20 00:29 93 23 80/45 (57) 95 08/01/20 00:15 91 22 80/45 (57) 95 08/01/20 00:02 92 22 78/46 (57) 94 08/01/20 00:00 28 78/47 Mechanical Ventilator 100 08/01/20 00:00 28 78/47 Mechanical Ventilator 100 08/01/20 00:00 98.8 93 23 77/42 (54) 94 08/01/20 00:00 94 08/01/20 00:00 Mechanical Ventilator 07/31/20 23:45 93 23 86/47 (60) 94 07/31/20 23:30 93 22 82/47 (59) 93 07/31/20 23:15 94 23 83/43 (56) 93 07/31/20 23:00 23 81/45 Mechanical Ventilator 100 07/31/20 23:00 23 81/45 Mechanical Ventilator 100 07/31/20 23:00 94 23 81/45 (57) 93 07/31/20 22:58 94 21 80/45 (57) 94 07/31/20 22:45 93 21 83/43 (56) 95 07/31/20 22:30 95 23 84/43 (57) 97 07/31/20 22:25 96 22 83/45 (58) 97 07/31/20 22:22 96 22 82/46 (58) 97 07/31/20 22:15 96 22 82/43 (56) 97 07/31/20 22:00 22 86/46 Mechanical Ventilator 100 07/31/20 22:00 22 86/46 Mechanical Ventilator 100 07/31/20 22:00 101 22 86/46 (59) 98 07/31/20 21:45 104 21 87/48 (61) 98 07/31/20 21:30 106 21 93/48 (63) 99 07/31/20 21:15 111 20 85/50 (62) 97 07/31/20 21:00 118 23 97/47 (64) 82 07/31/20 21:00 22 87/56 Mechanical Ventilator 100 07/31/20 21:00 20 85/50 Mechanical Ventilator 100 07/31/20 21:00 108 84/47 07/31/20 20:45 123 25 110/48 (68) 73 07/31/20 20:30 116 22 100/51 (67) 86 07/31/20 20:15 114 20 90/52 (65) 91 07/31/20 20:00 Mechanical Ventilator 07/31/20 20:00 20 98/53 Mechanical Ventilator 100 07/31/20 20:00 20 98/53 Mechanical Ventilator 100 07/31/20 20:00 115 07/31/20 20:00 100.3 115 21 98/53 (68) 89 07/31/20 20:00 100 07/31/20 19:45 115 21 89/48 (62) 93 07/31/20 19:30 113 22 101/51 (68) 96 07/31/20 19:15 114 22 97/49 (65) 96 07/31/20 19:00 116 22 105/58 (74) 94 07/31/20 19:00 117 21 100 07/31/20 19:00 22 105/58 Mechanical Ventilator 100 07/31/20 19:00 22 105/58 Mechanical Ventilator 100 07/31/20 18:30 113 22 110/60 (77) 96 07/31/20 18:30 99.8 07/31/20 18:00 20 100/60 Endotracheal Tube 100 07/31/20 18:00 20 110/60 Endotracheal Tube 100 07/31/20 18:00 113 22 111/58 (75) 96 07/31/20 17:45 20 113/64 Endotracheal Tube 100 07/31/20 17:30 113 23 110/60 (77) 96 07/31/20 17:00 109 21 106/59 (75) 98 07/31/20 17:00 20 106/59 Endotracheal Tube 85 07/31/20 17:00 20 106/59 Endotracheal Tube 85 07/31/20 16:30 108 20 96/49 (65) 97 07/31/20 16:00 Mechanical Ventilator 07/31/20 16:00 20 107/59 Endotracheal Tube 85 07/31/20 16:00 20 107/59 Endotracheal Tube 100 07/31/20 16:00 108 20 107/59 (75) 95 07/31/20 16:00 100 07/31/20 16:00 100.8 07/31/20 16:00 107 07/31/20 15:10 101 22 100 07/31/20 15:00 20 99/55 Endotracheal Tube 85 07/31/20 15:00 20 99/55 Endotracheal Tube 85 07/31/20 15:00 105 21 99/55 (70) 92 07/31/20 14:30 105 21 100/53 (69) 92 07/31/20 14:00 107 21 102/52 (69) 92 07/31/20 14:00 20 102/52 Endotracheal Tube 85 07/31/20 14:00 20 102/52 Endotracheal Tube 85 07/31/20 13:30 105 21 99/53 (68) 95 07/31/20 13:00 20 102/55 Endotracheal Tube 85 07/31/20 13:00 20 102/55 Endotracheal Tube 85 07/31/20 13:00 104 21 102/55 (71) 96 07/31/20 12:30 99.9 108 21 113/62 (79) 95 Intake and Output 07/31/20 08/01/20 19:00 07:00 Intake Total 1180 ml 1332.5 ml Output Total 825 ml 1015 ml Balance 355 ml 317.5 ml Free Water 100 ml 240 ml IV Total 420 ml 432.5 ml Tube Feeding 660 ml 660 ml Output Urine Total 825 ml 1015 ml # Bowel Movements 1 Laboratory Tests 08/01/20 04:10: White Blood Count 17.8H, Red Blood Count 2.64L, Hemoglobin 7.6L, Hematocrit 24.5L, Mean Corpuscular Volume 93, Mean Corpuscular Hemoglobin 28.9, Mean Corpuscular Hemoglobin Concent 31.3L, Red Cell Distribution Width 14.0, Platelet Count 185, Mean Platelet Volume 11.3H, Neutrophils (%) (Auto) , Lymphocytes (%) (Auto) , Monocytes (%) (Auto) , Eosinophils (%) (Auto) , Basophils (%) (Auto) , Differential Total Cells Counted 100, Neutrophils % (Manual) 92H, Lymphocytes % (Manual) 3L, Monocytes % (Manual) 5, Eosinophils % (Manual) 0, Basophils % (Manual) 0, Band Neutrophils 0, Platelet Estimate Adequate, Platelet Morphology Normal, Hypochromasia 2+, Anisocytosis 1+, Sodium Level 135L, Potassium Level 5.8H, Chloride Level 101, Carbon Dioxide Level 31, Anion Gap 3L, Blood Urea Nitrogen 28H, Creatinine 0.9, Estimat Glomerular Filtration Rate > 60, Glucose Level 323H, Calcium Level 8.5, Phosphorus Level 3.5, Magnesium Level 2.3, Total Bilirubin 0.2, Aspartate Amino Transf (AST/SGOT) 41H, Alanine Aminotransferase (ALT/SGPT) 31, Alkaline Phosphatase 70, Troponin I 0.044, C-Reactive Protein, Quantitative 3.6H, Pro-B-Type Natriuretic Peptide 785H, Total Protein 4.8L, Albumin 1.4L, Globulin 3.4, Albumin/Globulin Ratio 0.4L 08/01/20 10:36: Arterial Blood pH 7.275L, Arterial Blood Partial Pressure CO2 63.4*H, Arterial Blood Partial Pressure O2 75.5, Arterial Blood HCO3 28.8H, Arterial Blood Oxygen Saturation 92.1L, Arterial Blood Base Excess 1.3, Timbo Test Positive 08/01/20 12:05: White Blood Count [Pending], Red Blood Count [Pending], Hemoglobin [Pending], Hematocrit [Pending], Mean Corpuscular Volume [Pending], Mean Corpuscular Hemoglobin [Pending], Mean Corpuscular Hemoglobin Concent [Pending], Red Cell Distribution Width [Pending], Platelet Count [Pending], Mean Platelet Volume [Pending], Neutrophils (%) (Auto) [Pending], Lymphocytes (%) (Auto) [Pending], Monocytes (%) (Auto) [Pending], Eosinophils (%) (Auto) [Pending], Basophils (%) (Auto) [Pending] Height (Feet): 5 Height (Inches): 3.00 Weight (Pounds): 162 General Appearance: lethargic EENT: normal ENT inspection Neck: supple Cardiovascular: normal rate Respiratory/Chest: decreased breath sounds Abdomen: hypoactive bowel sounds Extremities: non-tender Assessment/Plan Problem List: (1) Dysphagia ICD Codes: R13.10 - Dysphagia, unspecified SNOMED: 44932843, 990021948 (2) COVID-19 virus infection ICD Codes: U07.1 - COVID-19 SNOMED: 706634135 (3) HTN (hypertension) ICD Codes: I10 - Essential (primary) hypertension SNOMED: 63300788 (4) DMII (diabetes mellitus, type 2) ICD Codes: E11.9 - Type 2 diabetes mellitus without complications SNOMED: 51431862 Status: deteriorating, fever Assessment/Plan: coverage note for dr Malcolm intubated NGTF DM control improving WBC fu pulm and cardiology recs was hypotensive last night has central line will fu Steffen De Luna MD Aug 01, 2020 12:15
[2020-08-01 12:18] LABS: HEMATOCRIT 23.6 % (37.0-47.0); HEMOGLOBIN 7.3 G/DL (12.0-16.0); MEAN CORPUSCULAR VOLUME 92 FL (80-99); PLATELET COUNT 145 K/UL (150-450); RED BLOOD COUNT 2.58 M/UL (4.20-5.40); RED CELL DISTRIBUTION WIDTH 14.9 % (11.6-14.8); WHITE BLOOD COUNT 13.9 K/UL (4.8-10.8)
--- NOTE | 2020-08-01 12:22 | Nephrology Progress Note ---
Assessment/Plan Problem List: (1) Hyponatremia (2) Hypoxia (3) Pneumonitis (4) Acute respiratory failure due to COVID-19 (5) DMII (diabetes mellitus, type 2) (6) HTN (hypertension) Assessment Hyponatremia, improved with saline infusion COVID-19 infection Pneumonia, acute respiratory failure, hypoxia Diabetes mellitus Hypertension Plan August 01: Today's labs reviewed. Discussed with RN. Kayexalate for high potassium given. Hemoglobin lower. Defer transfusion to equal employment opportunity officer. Continue to monitor electrolytes and renal parameters. July 31: No CHEM panel drawn today. Remains full code. Intubated on ventilator. FiO2 85% now. Will check lab tomorrow. Continue to monitor renal parameters. July 30: Labs reviewed. Renal parameters stable. Continue per consultants. Intubated on ventilator with FiO2 of 100%. Full code. Not much to add from renal standpoint of view at this time. July 29 labs reviewed. Serum potassium elevated. Potassium supplement was put on hold on 1 dose of Kayexalate given. Levemir dose increased. Continue to monitor renal parameters. Patient remains on 100% FiO2 on ventilator. July 28: Labs reviewed. Renal parameters stable. Remains full code. Blood sugar remains high. Levemir dose increased. Not much to add from renal standpoint of view. FiO2 now is 100%. July 27: Labs reviewed. Renal parameters stable. Low potassium addressed. FiO2 70%. Blood sugar elevated. Levemir dose is being adjusted. Continue per consultants. July 26: Labs reviewed. Renal parameters stable. Patient now intubated on ventilator in ICU. Blood sugar elevated. Levemir added. Will watch electrolytes. Main management per help desk team leader and ID. July 25: Labs reviewed. Renal parameters stable. Continue per consultants. July 24: Labs reviewed. Renal parameters stable. Continue per pulmonary. Medication list reviewed. July 23: No labs drawn today. Medication list reviewed. Continue per consu ltant. Patient full code. July 22: Labs reviewed. Stable renal parameters. Continue per consultants. July 21: No CHEM panel drawn today. Stable from renal standpoint of view. Blood pressure stable. July 20: IV changed to D5W 50 cc an hour. Renal parameters stable. Continue per consultants. July 19: Pulmonary status remains unstable. Stable from renal standpoint of view. July 18: Labs reviewed. Stable renal parameters and electrolytes. Continue per consultants. July 17: No labs drawn today. Remains stable from renal standpoint today. July 16: No labs drawn today. Continue per consultants. Stable from renal standpoint of view. July 15: Labs reviewed. Renal parameters stable. July 14: No labs from today. Continue per current management. Check labs tomorrow. July 13: No labs drawn today. Stable from renal standpoint of view. July 12: Today's labs pending. Medication list reviewed. Continue per current management and consultants. July 11: Labs reviewed. Renal parameters stable. July 10: Labs reviewed. Renal parameters electrolytes stable. Continue per consultants. July 09: Labs reviewed. Renal parameters and electrolytes stable. Continue per ID and pulmonary. Subjective ROS Limited/Unobtainable: Yes Objective Objective Last 24 Hour Vital Signs Date Time Temp Pulse Resp B/P (MAP) Pulse Ox O2 Delivery O2 Flow Rate FiO2 08/01/20 11:00 110 23 110/61 (77) 96 08/01/20 11:00 23 110/61 Mechanical Ventilator 100 08/01/20 11:00 23 110/61 Endotracheal Tube 100 08/01/20 10:51 112 23 100 08/01/20 10:45 111 21 116/64 (81) 97 08/01/20 10:30 125 26 132/60 (84) 66 08/01/20 10:15 120 25 113/55 (74) 63 08/01/20 10:00 22 113/59 Mechanical Ventilator 100 08/01/20 10:00 22 113/59 Mechanical Ventilator 100 08/01/20 10:00 114 22 113/59 (77) 67 08/01/20 09:45 21 107/58 (74) 92 08/01/20 09:30 20 106/56 (73) 96 08/01/20 09:29 22 102/56 Endotracheal Tube 100 08/01/20 09:15 22 102/56 (71) 97 08/01/20 09:00 22 111/64 (80) 97 08/01/20 09:00 22 113/59 Mechanical Ventilator 100 08/01/20 09:00 22 111/64 Mechanical Ventilator 100 08/01/20 08:45 22 103/55 (71) 97 08/01/20 08:30 21 108/55 (72) 97 08/01/20 08:15 101 20 110/59 (76) 97 08/01/20 08:00 99.9 99 20 104/57 (73) 96 08/01/20 08:00 100 08/01/20 08:00 20 108/55 Endotracheal Tube 100 08/01/20 08:00 20 108/55 Endotracheal Tube 100 08/01/20 08:00 Mechanical Ventilator 08/01/20 08:00 95 08/01/20 07:30 98 22 98/54 (69) 96 08/01/20 07:15 95 23 98/55 (69) 96 08/01/20 07:00 100 22 100 08/01/20 07:00 96 21 98/55 (69) 97 08/01/20 07:00 22 98/55 Mechanical Ventilator 100 08/01/20 07:00 22 98/55 Mechanical Ventilator 100 08/01/20 06:54 22 109/60 Mechanical Ventilator 100 08/01/20 06:30 91 23 114/66 (82) 99 08/01/20 06:15 92 21 110/58 (75) 98 08/01/20 06:00 98.5 92 21 108/60 (76) 99 08/01/20 06:00 26 106/62 Mechanical Ventilator 100 08/01/20 06:00 26 110/62 Mechanical Ventilator 100 08/01/20 05:45 92 20 120/66 (84) 99 08/01/20 05:30 95 20 121/67 (85) 99 08/01/20 05:15 94 21 125/69 (87) 94 08/01/20 05:00 91 23 108/68 (81) 97 08/01/20 05:00 26 105/62 Mechanical Ventilator 100 08/01/20 05:00 26 105/58 Mechanical Ventilator 100 08/01/20 04:45 90 23 113/60 (77) 97 08/01/20 04:30 89 22 110/61 (77) 98 08/01/20 04:15 90 23 114/59 (77) 98 08/01/20 04:00 Mechanical Ventilator 08/01/20 04:00 90 08/01/20 04:00 100 08/01/20 04:00 99.5 89 21 107/56 (73) 98 08/01/20 04:00 22 114/59 Mechanical Ventilator 100 08/01/20 04:00 22 114/59 Mechanical Ventilator 100 08/01/20 03:46 99 21 150/95 (113) 98 08/01/20 03:30 92 20 85/44 (58) 100 08/01/20 03:15 93 21 106/50 (68) 99 08/01/20 03:12 91 20 100 08/01/20 03:00 93 20 108/63 (78) 100 08/01/20 03:00 21 106/50 Mechanical Ventilator 100 08/01/20 03:00 21 106/50 Mechanical Ventilator 100 08/01/20 02:45 93 21 96/55 (69) 100 08/01/20 02:30 91 20 104/60 (75) 100 08/01/20 02:15 97 20 100/58 (72) 99 08/01/20 02:00 95 20 102/59 (73) 100 08/01/20 02:00 20 100/58 Mechanical Ventilator 100 08/01/20 02:00 20 100/58 Mechanical Ventilator 100 08/01/20 01:45 98 20 106/61 (76) 100 08/01/20 01:37 78/46 08/01/20 01:30 99 20 82/50 (61) 98 08/01/20 01:15 106 20 91/47 (62) 85 08/01/20 01:00 112 27 121/56 (77) 67 08/01/20 01:00 26 106/52 Mechanical Ventilator 100 08/01/20 01:00 26 106/52 Mechanical Ventilator 100 08/01/20 00:45 92 22 82/46 (58) 95 08/01/20 00:35 94 24 80/47 (58) 95 08/01/20 00:30 93 23 80/48 (59) 95 08/01/20 00:29 93 23 80/45 (57) 95 08/01/20 00:15 91 22 80/45 (57) 95 08/01/20 00:02 92 22 78/46 (57) 94 08/01/20 00:00 28 78/47 Mechanical Ventilator 100 08/01/20 00:00 28 78/47 Mechanical Ventilator 100 08/01/20 00:00 98.8 93 23 77/42 (54) 94 08/01/20 00:00 94 08/01/20 00:00 Mechanical Ventilator 07/31/20 23:45 93 23 86/47 (60) 94 07/31/20 23:30 93 22 82/47 (59) 93 07/31/20 23:15 94 23 83/43 (56) 93 07/31/20 23:00 23 81/45 Mechanical Ventilator 100 07/31/20 23:00 23 81/45 Mechanical Ventilator 100 07/31/20 23:00 94 23 81/45 (57) 93 07/31/20 22:58 94 21 80/45 (57) 94 07/31/20 22:45 93 21 83/43 (56) 95 07/31/20 22:30 95 23 84/43 (57) 97 07/31/20 22:25 96 22 83/45 (58) 97 07/31/20 22:22 96 22 82/46 (58) 97 07/31/20 22:15 96 22 82/43 (56) 97 07/31/20 22:00 22 86/46 Mechanical Ventilator 100 07/31/20 22:00 22 86/46 Mechanical Ventilator 100 07/31/20 22:00 101 22 86/46 (59) 98 07/31/20 21:45 104 21 87/48 (61) 98 07/31/20 21:30 106 21 93/48 (63) 99 07/31/20 21:15 111 20 85/50 (62) 97 07/31/20 21:00 118 23 97/47 (64) 82 07/31/20 21:00 22 87/56 Mechanical Ventilator 100 07/31/20 21:00 20 85/50 Mechanical Ventilator 100 07/31/20 21:00 108 84/47 07/31/20 20:45 123 25 110/48 (68) 73 07/31/20 20:30 116 22 100/51 (67) 86 07/31/20 20:15 114 20 90/52 (65) 91 07/31/20 20:00 Mechanical Ventilator 07/31/20 20:00 20 98/53 Mechanical Ventilator 100 07/31/20 20:00 20 98/53 Mechanical Ventilator 100 07/31/20 20:00 115 07/31/20 20:00 100.3 115 21 98/53 (68) 89 07/31/20 20:00 100 07/31/20 19:45 115 21 89/48 (62) 93 07/31/20 19:30 113 22 101/51 (68) 96 07/31/20 19:15 114 22 97/49 (65) 96 07/31/20 19:00 116 22 105/58 (74) 94 07/31/20 19:00 117 21 100 07/31/20 19:00 22 105/58 Mechanical Ventilator 100 07/31/20 19:00 22 105/58 Mechanical Ventilator 100 07/31/20 18:30 113 22 110/60 (77) 96 07/31/20 18:30 99.8 07/31/20 18:00 20 100/60 Endotracheal Tube 100 07/31/20 18:00 20 110/60 Endotracheal Tube 100 07/31/20 18:00 113 22 111/58 (75) 96 07/31/20 17:45 20 113/64 Endotracheal Tube 100 07/31/20 17:30 113 23 110/60 (77) 96 07/31/20 17:00 109 21 106/59 (75) 98 07/31/20 17:00 20 106/59 Endotracheal Tube 85 07/31/20 17:00 20 106/59 Endotracheal Tube 85 07/31/20 16:30 108 20 96/49 (65) 97 07/31/20 16:00 Mechanical Ventilator 07/31/20 16:00 20 107/59 Endotracheal Tube 85 07/31/20 16:00 20 107/59 Endotracheal Tube 100 07/31/20 16:00 108 20 107/59 (75) 95 07/31/20 16:00 100 07/31/20 16:00 100.8 07/31/20 16:00 107 07/31/20 15:10 101 22 100 07/31/20 15:00 20 99/55 Endotracheal Tube 85 07/31/20 15:00 20 99/55 Endotracheal Tube 85 07/31/20 15:00 105 21 99/55 (70) 92 07/31/20 14:30 105 21 100/53 (69) 92 07/31/20 14:00 107 21 102/52 (69) 92 07/31/20 14:00 20 102/52 Endotracheal Tube 85 07/31/20 14:00 20 102/52 Endotracheal Tube 85 07/31/20 13:30 105 21 99/53 (68) 95 07/31/20 13:00 20 102/55 Endotracheal Tube 85 07/31/20 13:00 20 102/55 Endotracheal Tube 85 07/31/20 13:00 104 21 102/55 (71) 96 07/31/20 12:30 99.9 108 21 113/62 (79) 95 Intake and Output 07/31/20 08/01/20 19:00 07:00 Intake Total 1180 ml 1332.5 ml Output Total 825 ml 1015 ml Balance 355 ml 317.5 ml Free Water 100 ml 240 ml IV Total 420 ml 432.5 ml Tube Feeding 660 ml 660 ml Output Urine Total 825 ml 1015 ml # Bowel Movements 1 Current Medications Medications (Trade) Dose Ordered Sig/Marian Route PRN Reason Start Time Stop Time Status Last Admin Dose Admin Acetaminophen (Tylenol) 650 mg Q4H PRN RECTAL Temp >100.5 07/18/20 18:30 08/17/20 18:29 07/31/20 17:45 Acetaminophen (Tylenol) 650 mg Q6H PRN ORAL For Pain 07/07/20 15:45 08/06/20 15:44 07/29/20 16:28 Acetaminophen (Tylenol) 650 mg Q6H PRN ORAL FEVER 07/07/20 16:15 08/06/20 16:14 07/30/20 12:36 Benzonatate (Tessalon Perles) 100 mg TIDPRN PRN ORAL For Cough 07/18/20 18:30 08/17/20 18:29 Cefepime HCl 2 gm/ Dextrose 55 ml @ 110 mls/hr Q12HR IVPB 07/22/20 13:00 08/04/20 14:00 08/01/20 08:45 Chlorhexidine Gluconate (Rafaela-Hex 2%) 1 applic DAILY@2000 TOPIC 08/01/20 20:00 10/30/20 19:59 Dextrose (Dextrose 50%) 25 ml Q30M PRN IV Hypoglycemia 07/07/20 15:45 10/05/20 15:44 Dextrose (Dextrose 50%) 50 ml Q30M PRN IV Hypoglycemia 07/07/20 15:45 10/05/20 15:44 Docusate Sodium (Colace) 100 mg TID NG 07/29/20 13:00 08/25/20 17:59 08/01/20 08:46 Enoxaparin Sodium (Lovenox) 70 mg EVERY 12 HOURS SUBQ 07/25/20 21:00 10/23/20 20:59 08/01/20 10:42 Famotidine (Pepcid I.v.) 20 mg Q12HR IVP 07/20/20 09:00 08/19/20 08:59 08/01/20 08:46 Fentanyl Citrate 250 ml @ 1 mls/hr Q24H PRN IV SEDATION 07/29/20 15:00 08/02/20 14:59 08/01/20 09:29 Fluconazole/ Sodium Chloride 200 ml @ 100 mls/hr Q24H IV 07/22/20 14:00 08/04/20 13:59 07/31/20 14:56 Insulin Aspart (NovoLOG) Q6HR SUBQ 07/26/20 12:00 10/24/20 11:59 08/01/20 05:19 Insulin Detemir (Levemir) 30 units Q12HR SUBQ 08/01/20 21:00 10/24/20 10:29 UNV Methylprednisolone Sodium Succinate (Solu-MEDROL) 20 mg EVERY 6 HOURS IVP 07/22/20 12:00 10/19/20 08:59 08/01/20 05:18 Metoprolol Tartrate (Lopressor) 25 mg EVERY 12 HOURS NG 07/26/20 21:00 10/24/20 20:59 07/31/20 09:02 Midazolam HCl 200 ml @ 0 mls/hr Q24H PRN IV Agitation 07/29/20 22:45 08/05/20 22:44 08/01/20 06:54 Norepinephrine Bitartrate 250 ml @ 0 mls/hr Q24H IV 08/01/20 00:45 08/04/20 00:33 08/01/20 01:37 Sodium Chloride 1,000 ml @ 75 mls/hr [id number] IV 08/01/20 09:00 08/31/20 08:59 08/01/20 09:12 Sorbitol (sorbitoL) 45 ml Q12HR PRN ORAL Constipation 07/30/20 09:15 08/29/20 09:14 Trimethoprim/ Sulfamethoxazole 20 ml/Dextrose 570 ml @ 380 mls/hr Q12HR IV 07/29/20 21:00 08/05/20 20:59 08/01/20 08:46 Vancomycin HCl ([facility]anco pharmacy to dose) 1 ea DAILY PRN MISC Per rx protocol 07/27/20 10:00 08/26/20 09:59 Vancomycin HCl 750 mg/Sodium Chloride 275 ml @ 183.333 mls/hr Q12HR@1100,2300 IVPB 07/27/20 23:00 08/05/20 23:59 08/01/20 10:40 Laboratory Tests 08/01/20 04:10: White Blood Count 17.8H, Red Blood Count 2.64L, Hemoglobin 7.6L, Hematocrit 24.5L, Mean Corpuscular Volume 93, Mean Corpuscular Hemoglobin 28.9, Mean Corpuscular Hemoglobin Concent 31.3L, Red Cell Distribution Width 14.0, Platelet Count 185, Mean Platelet Volume 11.3H, Neutrophils (%) (Auto) , Lymphocytes (%) (Auto) , Monocytes (%) (Auto) , Eosinophils (%) (Auto) , Basophils (%) (Auto) , Differential Total Cells Counted 100, Neutrophils % (Manual) 92H, Lymphocytes % (Manual) 3L, Monocytes % (Manual) 5, Eosinophils % (Manual) 0, Basophils % (Manual) 0, Band Neutrophils 0, Platelet Estimate Adequate, Platelet Morphology Normal, Hypochromasia 2+, Anisocytosis 1+, Sodium Level 135L, Potassium Level 5.8H, Chloride Level 101, Carbon Dioxide Level 31, Anion Gap 3L, Blood Urea Nitrogen 28H, Creatinine 0.9, Estimat Glomerular Filtration Rate > 60, Glucose Level 323H, Calcium Level 8.5, Phosphorus Level 3.5, Magnesium Level 2.3, Total Bilirubin 0.2, Aspartate Amino Transf (AST/SGOT) 41H, Alanine Aminotransferase (ALT/SGPT) 31, Alkaline Phosphatase 70, Troponin I 0.044, C-Reactive Protein, Quantitative 3.6H, Pro-B-Type Natriuretic Peptide 785H, Total Protein 4.8L, Albumin 1.4L, Globulin 3.4, Albumin/Globulin Ratio 0.4L 08/01/20 10:36: Arterial Blood pH 7.275L, Arterial Blood Partial Pressure CO2 63.4*H, Arterial Blood Partial Pressure O2 75.5, Arterial Blood HCO3 28.8H, Arterial Blood Oxygen Saturation 92.1L, Arterial Blood Base Excess 1.3, Timbo Test Positive 08/01/20 12:05: White Blood Count [Pending], Red Blood Count [Pending], Hemoglobin [Pending], Hematocrit [Pending], Mean Corpuscular Volume [Pending], Mean Corpuscular Hemoglobin [Pending], Mean Corpuscular Hemoglobin Concent [Pending], Red Cell Distribution Width [Pending], Platelet Count [Pending], Mean Platelet Volume [Pending], Neutrophils (%) (Auto) [Pending], Lymphocytes (%) (Auto) [Pending], Monocytes (%) (Auto) [Pending], Eosinophils (%) (Auto) [Pending], Basophils (%) (Auto) [Pending] Height (Feet): 5 Height (Inches): 3.00 Weight (Pounds): 162 General Appearance: no apparent distress EENT: other - Intubated on ventilator Cardiovascular: tachycardia Respiratory/Chest: decreased breath sounds Abdomen: distended Objective No change Anurag Bridges MD Aug 01, 2020 12:22
[2020-08-01] MEDS: FLUCONAZOLE 400 MG/200 ML IV SCH (14:18)
--- NOTE | 2020-08-01 15:08 | NUR ---
RESPIRATORY NOTE: Continuously suctioning bloody secretions orally throughout the day. Perhaps from biting down on the tube and tongue. RN is aware. Bite block is still in place to prevent any further biting. Will continue to closely monitor.
--- NOTE | 2020-08-01 15:35 | Cardiology Report ---
APPROVED REPORT EXAM: Two-dimensional and M-mode echocardiogram with Doppler and color Doppler. M-Mode DIMENSIONS IVSd0.9 (0.7-1.1cm)Left Atrium (MM)2.7 (1.6-4.0cm) LVDd3.2 (3.5-5.6cm)Aortic Root2.2 (2.0-3.7cm) PWd0.8 (0.7-1.1cm)Aortic Cusp Exc.1.5 (1.5-2.0cm) IVSs1.2 cmEPSS0.2 (>1.0cm) LVDs1.3 (2.5-4.0cm) PWs0.9 cm <Conclusion> Normal left ventricular chamber size, hyperdynamic systolic function and wall motion. Left ventricular ejection fraction estimated to be 70-75%. Mild left ventricular hypertrophy in 2-D. Anterior Echo-free space, may be due to pericardial fat or effusion. All other cardiac chamber sizes are within normal limits. Focal aortic valve sclerosis with adequate cusp excursion. Thickened mitral valve leaflets with normal excursion. Mitral annulus and aortic root calcification. Normal pulmonic valve structure. Normal tricuspid valve structure. IVC at normal size and collapsing with respiration. A color flow and spectral Doppler study was performed and revealed: No aortic regurgitation. Peak LVOT pressure gradient of 29 mm Hg and a mean of 8 mmHg with late peaking profile late peaking veolicty profile suggestive of cavity obliteraion Trace mitral regurgitation. Mitral diastolic velocities suggest reduced left ventricular relaxation c/w mild diastolic dysfunction (Grade I). Trace tricuspid regurgitation. Tricuspid systolic velocities suggests peak right ventricular systolic pressure of 18 mmHg. Trace pulmonic regurgitation present.
[2020-08-01] MEDS: Acetaminophen 650 MG SUPP RECTAL PRN (16:50)
--- NOTE | 2020-08-01 17:04 | NUR ---
RESPIRATORY NOTE: SXN large amounts of bloody secretions orally. RN bedside. Changed position of ETT and bite block to the left side. Skin on lips is not intact on middle upper lip and lower right lip. Large blood clot also was removed from mouth while doing oral care. RN notifying primary MD. Will continue to closely monitor.
--- NOTE | 2020-08-01 17:08 | NUR ---
RN and RT at bedside. RT suctioned large amount of blood from oral cavity. Clot pulled from throat. Dr. De Luna called and voicemail left. Per superannuation funds manager, temperature must be lowered prior to giving blood. Will follow closely.
--- NOTE | 2020-08-01 18:00 | NUR ---
Spoke with MD Annamarie. Plans to transfuse 1 unit ordered and call back if bleeding continues to worsen. Bleeding has slowed at this time. Will continue to follow closely. Addendum: 08/01/20 at 1918 by Marcell Gonzalez RN Verbal orders to also hold tube feedings at this time.
--- NOTE | 2020-08-01 19:18 | NUR ---
Report given to LIANA Sanz. All questions answered.
[2020-08-01] MEDS: Dyna-Hex 2% Top Sol 2oz TOPIC SCH (20:15)
--- NOTE | 2020-08-01 21:05 | NUR ---
NURSE NOTES: Pt afebrile at this time, transfused 1 unit PRBC unit no. [id number] A+, watched and observed for any reactions.
--- NOTE | 2020-08-01 21:20 | NUR ---
NURSE NOTES: Tolerating blood transfusion, no reactions was noted. Turned off maintainance IVF during transfusion.
--- NOTE | 2020-08-01 23:40 | NUR ---
NURSE NOTES: i unit PRBC was finished. No reaction was noted.
[2020-08-02] VITALS (78 sets, daily range): BP systolic 72–142; BP diastolic 45–78
[2020-08-02] MEDS: Solu-MEDROL 40mg Inj IVP SCH ×4 (00:26→18:47)
[2020-08-02] MEDS: Norepinephrine 4mg/NS Premix 250 ML IV SCH ×2 (00:45→04:31)
--- NOTE | 2020-08-02 02:00 | NUR ---
NURSE NOTES: repositioned for comfort. suctioned bloody secretions from mouth and ETT.
[2020-08-02] MEDS: Versed 100mg/NS 200ml 200 ML IV PRN ×3 (04:59→18:50)
[2020-08-02 05:08] LABS: HEMATOCRIT 22.6 % (37.0-47.0); HEMOGLOBIN 7.2 G/DL (12.0-16.0); MEAN CORPUSCULAR VOLUME 89 FL (80-99); PLATELET COUNT 130 K/UL (150-450); RED BLOOD COUNT 2.54 M/UL (4.20-5.40); WHITE BLOOD COUNT 11.9 K/UL (4.8-10.8)
[2020-08-02] MEDS: NovoLOG Insulin Flexpen SUBQ SCH ×3 (05:40→18:00)
[2020-08-02 05:53] LABS: PHOSPHORUS 3.4 MG/DL (2.5-4.9)
[2020-08-02 05:59] LABS: ALANINE AMINOTRANSFERASE 40 U/L (12-78); ALBUMIN 1.2 G/DL (3.4-5.0); ALBUMIN/GLOBULIN RATIO 0.4 (1.0-2.7); ALKALINE PHOSPHATASE 52 U/L (46-116); ANION GAP 5 mmol/L (5-15); ASPARTATE AMINO TRANSFERASE 53 U/L (15-37); BILIRUBIN,TOTAL < 0.1 MG/DL (0.2-1.0); BLOOD UREA NITROGEN 25 mg/dL (7-18); CALCIUM 7.7 MG/DL (8.5-10.1); CARBON DIOXIDE 26 MMOL/L (21-32); CHLORIDE 101 MMOL/L (98-107); CREATININE 0.8 MG/DL (0.55-1.30); POTASSIUM 5.3 MMOL/L (3.5-5.1); SODIUM 132 MMOL/L (136-145)
--- NOTE | 2020-08-02 07:36 | NUR ---
NURSE HAND-OFF REPORT: Latest Vital Signs: Temperature 99.0 , Pulse 75 , B/P 102 /56 , Respiratory Rate 21 , O2 SAT 100 , Mechanical Ventilator, O2 Flow Rate . Vital Sign Comment: EKG Rhythm: Sinus Tachycardia Rhythm change?: N MD Notified?: N - MD Response: Latest Plaza Fall Score: 70 Fall Risk: High Risk Safety Measures: Call light Within Reach, Bed Alarm Zone 3, Side Rails Side Rails x2, Bed position Low and Locked. Fall Precautions: Yellow Socks Yellow Gown Door Sign Patient Fall Education Report given to Bello GAINES.
[2020-08-02] MEDS ORDERED: Sodium Polystyrene Sulfonate 15gm Powder ORAL SCH (08:15)
[2020-08-02] MEDS: Cefepime HCl 2 GM in D5W 55 ML IVPB SCH ×2 (08:59→20:50)
[2020-08-02] MEDS: Docusate 100mg/10ml Liq NG SCH ×3 (08:59→18:48)
[2020-08-02] MEDS: Levemir Flexpen SUBQ SCH ×2 (09:00→21:00)
[2020-08-02] MEDS: Enoxaparin 80mg Inj SUBQ SCH ×2 (09:00→20:51)
[2020-08-02] MEDS ORDERED: NS 275ml ONE ×2 (09:27→10:25)
[2020-08-02] MEDS ORDERED: NaCl 3% 500ml 250 ML IV ONE (09:30)
[2020-08-02] MEDS: Trimethoprim/Sulfamethoxazole 20 ML in D5W 500ml 550 ML IV SCH (09:45)
--- NOTE | 2020-08-02 10:22 | Pulmonology Progress Note ---
Subjective ROS Limited/Unobtainable: Yes Interval Events: S/p intubation Constitutional: Reports: no symptoms, fever, other - Tmax=99.9 HEENT: Repors: no symptoms Respiratory: Reports: shortness of breath Gastrointestinal/Abdominal: Reports: no symptoms Psychiatric: Reports: no symptoms Skin: Reports: no symptoms Musculoskeletal: Reports: no symptoms Allergies: Coded Allergies: No Known Allergies (Unverified , 07/07/20) Objective Last 24 Hour Vital Signs Date Time Temp Pulse Resp B/P (MAP) Pulse Ox O2 Delivery O2 Flow Rate FiO2 08/02/20 09:00 86 99/52 08/02/20 08:00 90 08/02/20 07:34 85 22 100 08/02/20 07:30 82 22 102/56 (71) 100 08/02/20 07:15 79 22 107/59 (75) 99 08/02/20 07:00 78 22 125/66 (85) 99 08/02/20 06:00 75 24 126/67 (86) 100 08/02/20 06:00 21 102/56 Mechanical Ventilator 100 08/02/20 06:00 21 102/56 Mechanical Ventilator 100 08/02/20 05:15 78 24 126/78 (94) 100 08/02/20 05:00 21 126/78 Room Air 100 08/02/20 05:00 21 122/76 Mechanical Ventilator 100 08/02/20 05:00 21 104/50 Mechanical Ventilator 100 08/02/20 05:00 21 126/78 Mechanical Ventilator 100 08/02/20 05:00 77 26 114/73 (87) 99 08/02/20 04:59 23 105/57 Mechanical Ventilator 50 08/02/20 04:45 85 23 84/49 (61) 100 08/02/20 04:31 93/54 08/02/20 04:15 89 22 92/52 (65) 98 08/02/20 04:00 99.0 72/49 (57) 91 08/02/20 04:00 100 08/02/20 04:00 22 72/49 Mechanical Ventilator 100 08/02/20 04:00 22 92/51 Mechanical Ventilator 100 08/02/20 04:00 82 08/02/20 04:00 Mechanical Ventilator 08/02/20 03:30 87 24 100 08/02/20 03:30 99 22 115/63 (80) 100 08/02/20 03:15 86 24 92/51 (65) 97 08/02/20 03:00 22 92/51 Mechanical Ventilator 100 08/02/20 03:00 21 92/51 Mechanical Ventilator 100 08/02/20 03:00 87 22 96/53 (67) 98 08/02/20 02:45 86 22 89/51 (64) 98 08/02/20 02:30 87 23 92/52 (65) 98 08/02/20 02:15 86 22 88/54 (65) 97 08/02/20 02:00 85 22 90/51 (64) 97 08/02/20 02:00 22 88/54 Mechanical Ventilator 100 08/02/20 02:00 22 88/54 Mechanical Ventilator 100 08/02/20 01:30 86 22 97/52 (67) 99 08/02/20 01:00 21 90/52 Mechanical Ventilator 100 08/02/20 01:00 21 90/52 Endotracheal Tube 100 08/02/20 01:00 87 22 90/52 (65) 99 08/02/20 00:30 79 22 111/70 (84) 99 08/02/20 00:15 80 22 115/73 (87) 99 08/02/20 00:00 99.0 82 22 105/63 (77) 99 08/02/20 00:00 100 08/02/20 00:00 21 115/73 Mechanical Ventilator 100 08/02/20 00:00 21 115/73 Mechanical Ventilator 100 08/02/20 00:00 82 08/02/20 00:00 Mechanical Ventilator 08/01/20 23:56 22 139/63 Mechanical Ventilator 100 08/01/20 23:30 82 22 100 08/01/20 23:30 83 22 119/75 (90) 99 08/01/20 23:00 83 22 114/68 (83) 99 08/01/20 23:00 21 108/63 Mechanical Ventilator 100 08/01/20 23:00 22 108/63 Mechanical Ventilator 100 08/01/20 22:30 89 22 135/72 (93) 100 08/01/20 22:00 92 27 86/51 (63) 95 08/01/20 22:00 22 87/51 Mechanical Ventilator 100 08/01/20 22:00 22 82/48 Mechanical Ventilator 100 08/01/20 21:52 25 100/60 Mechanical Ventilator 100 08/01/20 21:30 95 26 87/43 (58) 94 08/01/20 21:15 97 26 82/48 (59) 93 08/01/20 21:00 22 83/50 Mechanical Ventilator 100 08/01/20 21:00 22 82/48 Mechanical Ventilator 100 08/01/20 21:00 21 82/48 Mechanical Ventilator 100 08/01/20 21:00 26 82/48 Mechanical Ventilator 100 08/01/20 21:00 97 84/42 08/01/20 21:00 97 26 90/50 (63) 93 08/01/20 20:54 98 26 86/46 (59) 93 08/01/20 20:45 98 26 85/42 (56) 93 08/01/20 20:30 100 27 84/51 (62) 93 08/01/20 20:00 99 08/01/20 20:00 99.2 82 21 98 08/01/20 20:00 21 83/50 Mechanical Ventilator 100 08/01/20 20:00 21 83/50 Mechanical Ventilator 100 08/01/20 20:00 Mechanical Ventilator 08/01/20 20:00 100 08/01/20 19:30 102 23 100 08/01/20 18:45 103 22 90/45 (60) 94 08/01/20 18:30 104 23 95/50 (65) 94 08/01/20 18:15 105 22 91/49 (63) 93 08/01/20 18:00 117 25 125/63 (83) 79 08/01/20 18:00 25 125/63 Mechanical Ventilator 100 08/01/20 18:00 25 125/63 Mechanical Ventilator 100 08/01/20 17:45 113 22 112/58 (76) 93 08/01/20 17:30 100.0 115 23 121/63 (82) 95 08/01/20 17:30 100.0 08/01/20 17:15 116 22 123/64 (83) 98 08/01/20 17:00 116 23 131/72 (91) 98 08/01/20 17:00 23 104/63 Mechanical Ventilator 100 08/01/20 17:00 23 104/63 Mechanical Ventilator 100 08/01/20 16:15 102.1 111 21 104/63 (77) 93 08/01/20 16:00 117 08/01/20 16:00 100 08/01/20 16:00 108 25 114/61 (78) 95 08/01/20 16:00 20 114/61 Mechanical Ventilator 100 08/01/20 16:00 20 114/61 Mechanical Ventilator 100 08/01/20 16:00 Mechanical Ventilator 08/01/20 15:45 109 26 114/64 (81) 95 08/01/20 15:30 108 22 117/64 (81) 95 08/01/20 15:15 109 24 115/66 (82) 96 08/01/20 15:01 108 24 100 08/01/20 15:00 21 112/62 Mechanical Ventilator 100 08/01/20 15:00 20 105/62 Mechanical Ventilator 100 08/01/20 15:00 108 25 117/64 (81) 96 08/01/20 14:15 105 25 107/63 (78) 94 08/01/20 14:00 106 25 105/62 (76) 94 08/01/20 14:00 20 105/62 Mechanical Ventilator 100 08/01/20 14:00 20 105/62 Mechanical Ventilator 100 08/01/20 13:45 104 24 100/54 (69) 94 08/01/20 13:30 106 25 95/55 (68) 94 08/01/20 13:15 106 24 93 08/01/20 13:00 105 25 97/58 (71) 94 08/01/20 13:00 20 97/58 100 08/01/20 13:00 20 97/58 Mechanical Ventilator 100 08/01/20 12:45 106 24 98/57 (71) 94 08/01/20 12:30 105 23 101/57 (72) 94 08/01/20 12:15 106 24 103/56 (72) 94 08/01/20 12:00 105 08/01/20 12:00 100.8 107 24 102/58 (73) 95 08/01/20 12:00 21 102/58 Mechanical Ventilator 100 08/01/20 12:00 21 102/58 Mechanical Ventilator 100 08/01/20 12:00 Mechanical Ventilator 08/01/20 11:45 107 23 94/57 (69) 96 08/01/20 11:30 109 23 104/55 (71) 96 08/01/20 11:15 108 20 110/58 (75) 96 08/01/20 11:01 23 113/59 Mechanical Ventilator 100 08/01/20 11:00 110 23 110/61 (77) 96 08/01/20 11:00 100 08/01/20 11:00 23 110/61 Mechanical Ventilator 100 08/01/20 11:00 23 110/61 Endotracheal Tube 100 08/01/20 10:51 112 23 100 08/01/20 10:45 111 21 116/64 (81) 97 08/01/20 10:30 125 26 132/60 (84) 66 Intake and Output 08/01/20 08/02/20 19:00 07:00 Intake Total 1680 ml 1374.3 ml Output Total 1725 ml 1090 ml Balance -45 ml 284.3 ml Free Water 30 ml IV Total 1100 ml 1374.3 ml Tube Feeding 550 ml Output Urine Total 1725 ml 1090 ml General Appearance: no acute distress HEENT: normocephalic Respiratory: decreased breath sounds Cardiovascular: normal peripheral pulses Abdomen: normal bowel sounds Microbiology Date/Time Source Procedure Growth Status 07/31/20 08:40 Nasopharynx SARS-CoV-2 Antigen (Rapid)(ABHI) - Final Complete 07/31/20 08:37 Nasopharynx Coronavirus COVID-19 PCR (ABHI) - Final Complete 07/31/20 08:37 Sputum Gram Stain - Final Complete 07/31/20 08:37 Sputum Culture - Final Pseudomonas Aeruginosa Complete Laboratory Tests 08/01/20 10:36: Arterial Blood pH 7.275L, Arterial Blood Partial Pressure CO2 63.4*H, Arterial Blood Partial Pressure O2 75.5, Arterial Blood HCO3 28.8H, Arterial Blood Oxygen Saturation 92.1L, Arterial Blood Base Excess 1.3, Timbo Test Positive 08/01/20 12:05: White Blood Count 13.9H, Red Blood Count 2.58L, Hemoglobin 7.3L, Hematocrit 23.6L, Mean Corpuscular Volume 92, Mean Corpuscular Hemoglobin 28.5, Mean Corpuscular Hemoglobin Concent 31.1L, Red Cell Distribution Width 14.9H, Platelet Count 145L, Mean Platelet Volume 10.6H, Neutrophils (%) (Auto) , Lymphocytes (%) (Auto) , Monocytes (%) (Auto) , Eosinophils (%) (Auto) , Basophils (%) (Auto) , Differential Total Cells Counted 100, Neutrophils % (Manual) 91H, Lymphocytes % (Manual) 4L, Monocytes % (Manual) 4, Eosinophils % (Manual) 0, Basophils % (Manual) 0, Band Neutrophils 1, Platelet Estimate DecreasedL, Platelet Morphology Normal, Hypochromasia 1+, Anisocytosis 1+ 08/02/20 04:10: White Blood Count 11.9H, Red Blood Count 2.54L, Hemoglobin 7.2L, Hematocrit 22.6L, Mean Corpuscular Volume 89, Mean Corpuscular Hemoglobin 28.4, Mean Corpus cular Hemoglobin Concent 32.0, Red Cell Distribution Width 14.0, Platelet Count 130L, Mean Platelet Volume 10.2H, Neutrophils (%) (Auto) , Lymphocytes (%) (Auto) , Monocytes (%) (Auto) , Eosinophils (%) (Auto) , Basophils (%) (Auto) , Differential Total Cells Counted 100, Neutrophils % (Manual) 87H, Lymphocytes % (Manual) 7L, Monocytes % (Manual) 5, Eosinophils % (Manual) 0, Basophils % (Manual) 1, Band Neutrophils 0, Platelet Estimate DecreasedL, Platelet Morphology Normal, Hypochromasia 3+, Anisocytosis 1+, Sodium Level 132L, Potassium Level 5.3H, Chloride Level 101, Carbon Dioxide Level 26, Anion Gap 5, Blood Urea Nitrogen 25H, Creatinine 0.8, Estimat Glomerular Filtration Rate > 60, Glucose Level 297H, Uric Acid 1.8L, Calcium Level 7.7L, Phosphorus Level 3.4, Magnesium Level 1.8, Total Bilirubin < 0.1L, Aspartate Amino Transf (AST/SGOT) 53H, Alanine Aminotransferase (ALT/SGPT) 40, Alkaline Phosphatase 52, C-Reactive Protein, Quantitative 2.5H, Pro-B-Type Natriuretic Peptide 542H, Total Protein 4.0L, Albumin 1.2L, Globulin 2.8, Albumin/Globulin Ratio 0.4L Current Medications Medications (Trade) Dose Ordered Sig/Marian Route PRN Reason Start Time Stop Time Status Last Admin Dose Admin Acetaminophen (Tylenol) 650 mg Q4H PRN RECTAL Temp >100.5 07/18/20 18:30 08/17/20 18:29 08/01/20 16:50 Acetaminophen (Tylenol) 650 mg Q6H PRN ORAL For Pain 07/07/20 15:45 08/06/20 15:44 07/29/20 16:28 Acetaminophen (Tylenol) 650 mg Q6H PRN ORAL FEVER 07/07/20 16:15 08/06/20 16:14 07/30/20 12:36 Benzonatate (Tessalon Perles) 100 mg TIDPRN PRN ORAL For Cough 07/18/20 18:30 08/17/20 18:29 Cefepime HCl 2 gm/ Dextrose 55 ml @ 110 mls/hr Q12HR IVPB 07/22/20 13:00 08/04/20 14:00 08/02/20 08:59 Chlorhexidine Gluconate (Rafaela-Hex 2%) 1 applic DAILY@2000 TOPIC 08/01/20 20:00 10/30/20 19:59 08/01/20 20:15 Dextrose (Dextrose 50%) 25 ml Q30M PRN IV Hypoglycemia 07/07/20 15:45 10/05/20 15:44 Dextrose (Dextrose 50%) 50 ml Q30M PRN IV Hypoglycemia 07/07/20 15:45 10/05/20 15:44 Docusate Sodium (Colace) 100 mg TID NG 07/29/20 13:00 08/25/20 17:59 08/02/20 08:59 Enoxaparin Sodium (Lovenox) 70 mg EVERY 12 HOURS SUBQ 07/25/20 21:00 10/23/20 20:59 08/01/20 21:23 Famotidine (Pepcid I.v.) 20 mg Q12HR IVP 07/20/20 09:00 08/19/20 08:59 08/02/20 08:59 Fentanyl Citrate 250 ml @ 1 mls/hr Q24H PRN IV SEDATION 07/29/20 15:00 08/02/20 14:59 08/01/20 23:56 Fluconazole/ Sodium Chloride 200 ml @ 100 mls/hr Q24H IV 07/22/20 14:00 08/04/20 13:59 08/01/20 14:18 Insulin Aspart (NovoLOG) Q6HR SUBQ 07/26/20 12:00 10/24/20 11:59 08/02/20 05:40 Insulin Detemir (Levemir) 30 units Q12HR SUBQ 08/01/20 21:00 10/24/20 10:29 08/02/20 09:00 Methylprednisolone Sodium Succinate (Solu-MEDROL) 20 mg EVERY 6 HOURS IVP 07/22/20 12:00 10/19/20 08:59 08/02/20 05:40 Metoprolol Tartrate (Lopressor) 25 mg EVERY 12 HOURS NG 07/26/20 21:00 10/24/20 20:59 07/31/20 09:02 Midazolam HCl 200 ml @ 0 mls/hr Q24H PRN IV Agitation 07/29/20 22:45 08/05/20 22:44 08/02/20 04:59 Norepinephrine Bitartrate 250 ml @ 0 mls/hr Q24H IV 08/01/20 00:45 08/04/20 00:33 08/02/20 04:31 Sodium Chloride 250 ml @ 30 mls/hr ONCE ONCE IV 08/02/20 09:30 08/02/20 17:49 Sorbitol (sorbitoL) 45 ml Q12HR PRN ORAL Constipation 07/30/20 09:15 08/29/20 09:14 Trimethoprim/ Sulfamethoxazole 20 ml/Dextrose 570 ml @ 380 mls/hr Q12HR IV 07/29/20 21:00 08/05/20 20:59 08/02/20 09:45 Vancomycin HCl ([facility] pharmacy to dose) 1 ea DAILY PRN MISC Per rx protocol 07/27/20 10:00 08/26/20 09:59 Vancomycin HCl 750 mg/Sodium Chloride 275 ml @ 183.333 mls/hr Q12HR@1100,2300 IVPB 07/27/20 23:00 08/05/20 23:59 08/01/20 23:20 Assessment/Plan Assessment/Plan 1. COVID-19 pneumonia. - COVID-19 PCR positive (07/07) - s/p remdexsivir - s/p azithromycin - CXR (07/13) no significant change - f/u rapid COVID-19 (07/31) negative 2. Hypoxemic respiratory distress - s/p decadron (07/08-07/17) - now on Solu-Medrol - intubated; on AC mode - FiO2 100%; continue PEEP 7->8 -> 10 - episodically desaturates to 70% -attempt proning 3. Hypertension. - currently hypotensive - Required central line 08/01/20 - on Levophed 4. Diabetes mellitus. -on insulin sliding scale 5. DVT ppx - on Lovenox, full dose empirically; on hold now due to epistaxis 6. Sputum Cx shows pseudomonas and cony - on Abx 7. Suspect bacterial infection given leukocytosis - ordered fungal culture, BCx (07/20) - on empiric Diflucan; WBC continues to be high - On Cefepime - also on IV Vanco - added IV Bactrim for possible PJP 8. Pulmonary edema -Off lasix gtt Discussed with bedside RN. Having epistaxis and oral bleeding Hold Lovenox Will give FFP Transfuse prn On IV vanco On Vu Pierre MD Aug 02, 2020 10:21
[2020-08-02] MEDS ORDERED: Tubing Blood Filter IV ONE (10:25)
--- NOTE | 2020-08-02 11:59 | Consultation ---
DATE OF CONSULTATION: 08/02/2020 INFECTIOUS DISEASES CONSULTATION CONSULTING PHYSICIAN: Lynne Gonzalez MD. REFERRING PHYSICIAN: Steffen De Luna MD. REASON FOR CONSULTATION: COVID-19 pneumonia. HISTORY OF PRESENTING ILLNESS: This is a 64-year-old lady with history of diabetes, who comes in with cough as well as sore throat. She was found to have COVID-19 pneumonia and she has been intubated. She also has a Pseudomonas pneumonia and an Infectious Diseases consultation has been obtained for antibiotics. PAST MEDICAL HISTORY: History of diabetes. SOCIAL HISTORY: She does not smoke, drink, or use drugs. FAMILY HISTORY: Unknown. REVIEW OF SYSTEMS: Unable to obtain currently. MEDICATIONS: As an inpatient, she is on insulin, chlorhexidine gluconate, Levophed, sorbitol, midazolam, Bactrim IV, fentanyl, docusate, vancomycin, metoprolol, enoxaparin, fluconazole, cefepime, Solu-Medrol, famotidine, Tylenol, Tessalon Perles. ALLERGIES: No known drug allergies. PHYSICAL EXAMINATION: VITAL SIGNS: Temperature of 99, T-max of 100, pulse of 86, respiratory rate 22, blood pressure 99/52, O2 saturation of 100% on 90% FiO2. Examination deferred due to COVID-19. LABORATORY AND DIAGNOSTIC DATA: White count of 11.9 today, hemoglobin 7.2, hematocrit 22.6, MCV 89, platelet count of 130, with neutrophils of 87%. Sodium 132, potassium 5.3, chloride 101, bicarb 26, BUN 25, creatinine 0.8, glucose 297, calcium 7.7. Total bilirubin less than 0.1. AST 53, ALT 40, alkaline phosphatase 52. C-reactive protein 2.5. Beta-natriuretic peptide 542. Total protein of 4, albumin 1.2. UA is showing 0 to 2 white cells. 07/31/2020, COVID-19 rapid antigen test is negative. 07/31/2020 COVID-19 test is negative. 07/31/2020 sputum culture is growing Pseudomonas susceptible to cefepime, Levaquin, meropenem, piperacillin and tazobactam. 07/25/2020 sputum cultures are negative. 07/20/2020 blood cultures are negative. 07/16/2020 sputum cultures grew Pseudomonas, Shae albicans and usual con. 07/16/2020 blood cultures are negative. 07/07/2020 COVID-19 test is positive. 07/07/2020 blood cultures are negative. 2D echocardiogram on 08/01/2020 showing trace pulmonary regurgitation, trace tricuspid regurgitation, trace mitral regurgitation. Chest x-ray showing bilateral pulmonary infiltrates. ASSESSMENT: This is a 64-year-old lady with history of diabetes, who comes in with shortness of breath and is found to have. 1. COVID-19 pneumonia. She is on 90% FiO2 with 100% O2 saturation. 2. Pseudomonas pneumonia. 3. Respiratory failure. 4. Leukocytosis is improving. PLAN: 1. Continue cefepime. 2. Discontinue fluconazole and Bactrim and vancomycin. 3. Continue isolation. 4. Continue Solu-Medrol. I would like to thank, Dr. De Luna, for this consultation. Lynne Gonzalez M.D. DR: JOSLYN JOB#: [id number] CC: Steffen De Luna MD.; Fax#: [phone]
--- NOTE | 2020-08-02 11:59 | General Progress Note ---
Subjective ROS Limited/Unobtainable: No Allergies: Coded Allergies: No Known Allergies (Unverified , 07/07/20) Subjective no event over night had BM tolerating TF Objective Last 24 Hour Vital Signs Date Time Temp Pulse Resp B/P (MAP) Pulse Ox O2 Delivery O2 Flow Rate FiO2 08/02/20 09:00 86 99/52 08/02/20 08:00 90 08/02/20 07:34 85 22 100 08/02/20 07:30 82 22 102/56 (71) 100 08/02/20 07:15 79 22 107/59 (75) 99 08/02/20 07:00 78 22 125/66 (85) 99 08/02/20 06:00 75 24 126/67 (86) 100 08/02/20 06:00 21 102/56 Mechanical Ventilator 100 08/02/20 06:00 21 102/56 Mechanical Ventilator 100 08/02/20 05:15 78 24 126/78 (94) 100 08/02/20 05:00 21 126/78 Room Air 100 08/02/20 05:00 21 122/76 Mechanical Ventilator 100 08/02/20 05:00 21 104/50 Mechanical Ventilator 100 08/02/20 05:00 21 126/78 Mechanical Ventilator 100 08/02/20 05:00 77 26 114/73 (87) 99 08/02/20 04:59 23 105/57 Mechanical Ventilator 50 08/02/20 04:45 85 23 84/49 (61) 100 08/02/20 04:31 93/54 08/02/20 04:15 89 22 92/52 (65) 98 08/02/20 04:00 99.0 72/49 (57) 91 08/02/20 04:00 100 08/02/20 04:00 22 72/49 Mechanical Ventilator 100 08/02/20 04:00 22 92/51 Mechanical Ventilator 100 08/02/20 04:00 82 08/02/20 04:00 Mechanical Ventilator 08/02/20 03:30 87 24 100 08/02/20 03:30 99 22 115/63 (80) 100 08/02/20 03:15 86 24 92/51 (65) 97 08/02/20 03:00 22 92/51 Mechanical Ventilator 100 08/02/20 03:00 21 92/51 Mechanical Ventilator 100 08/02/20 03:00 87 22 96/53 (67) 98 08/02/20 02:45 86 22 89/51 (64) 98 08/02/20 02:30 87 23 92/52 (65) 98 08/02/20 02:15 86 22 88/54 (65) 97 08/02/20 02:00 85 22 90/51 (64) 97 08/02/20 02:00 22 88/54 Mechanical Ventilator 100 08/02/20 02:00 22 88/54 Mechanical Ventilator 100 08/02/20 01:30 86 22 97/52 (67) 99 08/02/20 01:00 21 90/52 Mechanical Ventilator 100 08/02/20 01:00 21 90/52 Endotracheal Tube 100 08/02/20 01:00 87 22 90/52 (65) 99 08/02/20 00:30 79 22 111/70 (84) 99 08/02/20 00:15 80 22 115/73 (87) 99 08/02/20 00:00 99.0 82 22 105/63 (77) 99 08/02/20 00:00 100 08/02/20 00:00 21 115/73 Mechanical Ventilator 100 08/02/20 00:00 21 115/73 Mechanical Ventilator 100 08/02/20 00:00 82 08/02/20 00:00 Mechanical Ventilator 08/01/20 23:56 22 139/63 Mechanical Ventilator 100 08/01/20 23:30 82 22 100 08/01/20 23:30 83 22 119/75 (90) 99 08/01/20 23:00 83 22 114/68 (83) 99 08/01/20 23:00 21 108/63 Mechanical Ventilator 100 08/01/20 23:00 22 108/63 Mechanical Ventilator 100 08/01/20 22:30 89 22 135/72 (93) 100 08/01/20 22:00 92 27 86/51 (63) 95 08/01/20 22:00 22 87/51 Mechanical Ventilator 100 08/01/20 22:00 22 82/48 Mechanical Ventilator 100 08/01/20 21:52 25 100/60 Mechanical Ventilator 100 08/01/20 21:30 95 26 87/43 (58) 94 08/01/20 21:15 97 26 82/48 (59) 93 08/01/20 21:00 22 83/50 Mechanical Ventilator 100 08/01/20 21:00 22 82/48 Mechanical Ventilator 100 08/01/20 21:00 21 82/48 Mechanical Ventilator 100 08/01/20 21:00 26 82/48 Mechanical Ventilator 100 08/01/20 21:00 97 84/42 08/01/20 21:00 97 26 90/50 (63) 93 08/01/20 20:54 98 26 86/46 (59) 93 08/01/20 20:45 98 26 85/42 (56) 93 08/01/20 20:30 100 27 84/51 (62) 93 08/01/20 20:00 99 08/01/20 20:00 99.2 82 21 98 08/01/20 20:00 21 83/50 Mechanical Ventilator 100 08/01/20 20:00 21 83/50 Mechanical Ventilator 100 08/01/20 20:00 Mechanical Ventilator 08/01/20 20:00 100 08/01/20 19:30 102 23 100 08/01/20 18:45 103 22 90/45 (60) 94 08/01/20 18:30 104 23 95/50 (65) 94 08/01/20 18:15 105 22 91/49 (63) 93 08/01/20 18:00 117 25 125/63 (83) 79 08/01/20 18:00 25 125/63 Mechanical Ventilator 100 08/01/20 18:00 25 125/63 Mechanical Ventilator 100 08/01/20 17:45 113 22 112/58 (76) 93 08/01/20 17:30 100.0 115 23 121/63 (82) 95 08/01/20 17:30 100.0 08/01/20 17:15 116 22 123/64 (83) 98 08/01/20 17:00 116 23 131/72 (91) 98 08/01/20 17:00 23 104/63 Mechanical Ventilator 100 08/01/20 17:00 23 104/63 Mechanical Ventilator 100 08/01/20 16:15 102.1 111 21 104/63 (77) 93 08/01/20 16:00 117 08/01/20 16:00 100 08/01/20 16:00 108 25 114/61 (78) 95 08/01/20 16:00 20 114/61 Mechanical Ventilator 100 08/01/20 16:00 20 114/61 Mechanical Ventilator 100 08/01/20 16:00 Mechanical Ventilator 08/01/20 15:45 109 26 114/64 (81) 95 08/01/20 15:30 108 22 117/64 (81) 95 08/01/20 15:15 109 24 115/66 (82) 96 08/01/20 15:01 108 24 100 08/01/20 15:00 21 112/62 Mechanical Ventilator 100 08/01/20 15:00 20 105/62 Mechanical Ventilator 100 08/01/20 15:00 108 25 117/64 (81) 96 08/01/20 14:15 105 25 107/63 (78) 94 08/01/20 14:00 106 25 105/62 (76) 94 08/01/20 14:00 20 105/62 Mechanical Ventilator 100 08/01/20 14:00 20 105/62 Mechanical Ventilator 100 08/01/20 13:45 104 24 100/54 (69) 94 08/01/20 13:30 106 25 95/55 (68) 94 08/01/20 13:15 106 24 93 08/01/20 13:00 105 25 97/58 (71) 94 08/01/20 13:00 20 97/58 100 08/01/20 13:00 20 97/58 Mechanical Ventilator 100 08/01/20 12:45 106 24 98/57 (71) 94 08/01/20 12:30 105 23 101/57 (72) 94 08/01/20 12:15 106 24 103/56 (72) 94 08/01/20 12:00 105 08/01/20 12:00 100.8 107 24 102/58 (73) 95 08/01/20 12:00 21 102/58 Mechanical Ventilator 100 08/01/20 12:00 21 102/58 Mechanical Ventilator 100 08/01/20 12:00 Mechanical Ventilator Intake and Output 08/01/20 08/02/20 19:00 07:00 Intake Total 1680 ml 1374.3 ml Output Total 1725 ml 1090 ml Balance -45 ml 284.3 ml Free Water 30 ml IV Total 1100 ml 1374.3 ml Tube Feeding 550 ml Output Urine Total 1725 ml 1090 ml Laboratory Tests 08/01/20 12:05: White Blood Count 13.9H, Red Blood Count 2.58L, Hemoglobin 7.3L, Hematocrit 23.6L, Mean Corpuscular Volume 92, Mean Corpuscular Hemoglobin 28.5, Mean Corpuscular Hemoglobin Concent 31.1L, Red Cell Distribution Width 14.9H, Platelet Count 145L, Mean Platelet Volume 10.6H, Neutrophils (%) (Auto) , Lymphocytes (%) (Auto) , Monocytes (%) (Auto) , Eosinophils (%) (Auto) , Basophils (%) (Auto) , Differential Total Cells Counted 100, Neutrophils % (Manu al) 91H, Lymphocytes % (Manual) 4L, Monocytes % (Manual) 4, Eosinophils % (Manual) 0, Basophils % (Manual) 0, Band Neutrophils 1, Platelet Estimate DecreasedL, Platelet Morphology Normal, Hypochromasia 1+, Anisocytosis 1+ 08/02/20 04:10: White Blood Count 11.9H, Red Blood Count 2.54L, Hemoglobin 7.2L, Hematocrit 22.6L, Mean Corpuscular Volume 89, Mean Corpuscular Hemoglobin 28.4, Mean Corpuscular Hemoglobin Concent 32.0, Red Cell Distribution Width 14.0, Platelet Count 130L, Mean Platelet Volume 10.2H, Neutrophils (%) (Auto) , Lymphocytes (%) (Auto) , Monocytes (%) (Auto) , Eosinophils (%) (Auto) , Basophils (%) (Auto) , Differential Total Cells Counted 100, Neutrophils % (Manual) 87H, Lymphocytes % (Manual) 7L, Monocytes % (Manual) 5, Eosinophils % (Manual) 0, Basophils % (Manual) 1, Band Neutrophils 0, Platelet Estimate DecreasedL, Platelet Morphology Normal, Hypochromasia 3+, Anisocytosis 1+, Sodium Level 132L, Potassium Level 5.3H, Chloride Level 101, Carbon Dioxide Level 26, Anion Gap 5, Blood Urea Nitrogen 25H, Creatinine 0.8, Estimat Glomerular Filtration Rate > 60, Glucose Level 297H, Uric Acid 1.8L, Calcium Level 7.7L, Phosphorus Level 3.4, Magnesium Level 1.8, Total Bilirubin < 0.1L, Aspartate Amino Transf (AST/SGOT) 53H, Alanine Aminotransferase (ALT/SGPT) 40, Alkaline Phosphatase 52, C-Reactive Protein, Quantitative 2.5H, Pro-B-Type Natriuretic Peptide 542H, Total Protein 4.0L, Albumin 1.2L, Globulin 2.8, Albumin/Globulin Ratio 0.4L Height (Feet): 5 Height (Inches): 3.00 Weight (Pounds): 162 General Appearance: no apparent distress EENT: normal ENT inspection Neck: supple Cardiovascular: normal rate Respiratory/Chest: decreased breath sounds Abdomen: non tender Assessment/Plan Problem List: (1) Dysphagia ICD Codes: R13.10 - Dysphagia, unspecified SNOMED: 45054135, [id number] (2) COVID-19 virus infection ICD Codes: U07.1 - COVID-19 SNOMED: 612207387 (3) HTN (hypertension) ICD Codes: I10 - Essential (primary) hypertension SNOMED: 94548103 (4) DMII (diabetes mellitus, type 2) ICD Codes: E11.9 - Type 2 diabetes mellitus without complications SNOMED: [id number] Status: deteriorating, fever Assessment/Plan: coverage note for dr Malcolm intubated NGTF on hold DM control fu pulm and cardiology recs had nose and mouth bleed over night no ENT available asked ER MD to look one unit PRBC and 2 units FFP will fu Steffen De Luna MD Aug 02, 2020 11:59
--- NOTE | 2020-08-02 12:09 | Emergency Room Report ---
Physical Exam Asked to pack nose due to epistaxis. Apparently had bleeding from mouth with clots in R nose. The patient is on Lovenox 70 mg every 12 hours. The patient is a diabetic. The patient was intubated for respiratory failure due to Covid. The patient is on antibiotics. Last 24 Hour Vital Signs Date Time Temp Pulse Resp B/P (MAP) Pulse Ox O2 Delivery O2 Flow Rate FiO2 08/02/20 09:00 86 99/52 08/02/20 08:00 90 08/02/20 07:34 85 22 100 08/02/20 07:30 82 22 102/56 (71) 100 08/02/20 07:15 79 22 107/59 (75) 99 08/02/20 07:00 78 22 125/66 (85) 99 08/02/20 06:00 75 24 126/67 (86) 100 08/02/20 06:00 21 102/56 Mechanical Ventilator 100 08/02/20 06:00 21 102/56 Mechanical Ventilator 100 08/02/20 05:15 78 24 126/78 (94) 100 08/02/20 05:00 21 126/78 Room Air 100 08/02/20 05:00 21 122/76 Mechanical Ventilator 100 08/02/20 05:00 21 104/50 Mechanical Ventilator 100 08/02/20 05:00 21 126/78 Mechanical Ventilator 100 08/02/20 05:00 77 26 114/73 (87) 99 08/02/20 04:59 23 105/57 Mechanical Ventilator 50 08/02/20 04:45 85 23 84/49 (61) 100 08/02/20 04:31 93/54 08/02/20 04:15 89 22 92/52 (65) 98 08/02/20 04:00 99.0 72/49 (57) 91 08/02/20 04:00 100 08/02/20 04:00 22 72/49 Mechanical Ventilator 100 08/02/20 04:00 22 92/51 Mechanical Ventilator 100 08/02/20 04:00 82 08/02/20 04:00 Mechanical Ventilator 08/02/20 03:30 87 24 100 08/02/20 03:30 99 22 115/63 (80) 100 08/02/20 03:15 86 24 92/51 (65) 97 08/02/20 03:00 22 92/51 Mechanical Ventilator 100 08/02/20 03:00 21 92/51 Mechanical Ventilator 100 08/02/20 03:00 87 22 96/53 (67) 98 08/02/20 02:45 86 22 89/51 (64) 98 08/02/20 02:30 87 23 92/52 (65) 98 08/02/20 02:15 86 22 88/54 (65) 97 08/02/20 02:00 85 22 90/51 (64) 97 08/02/20 02:00 22 88/54 Mechanical Ventilator 100 08/02/20 02:00 22 88/54 Mechanical Ventilator 100 08/02/20 01:30 86 22 97/52 (67) 99 08/02/20 01:00 21 90/52 Mechanical Ventilator 100 08/02/20 01:00 21 90/52 Endotracheal Tube 100 08/02/20 01:00 87 22 90/52 (65) 99 08/02/20 00:30 79 22 111/70 (84) 99 08/02/20 00:15 80 22 115/73 (87) 99 08/02/20 00:00 99.0 82 22 105/63 (77) 99 08/02/20 00:00 100 08/02/20 00:00 21 115/73 Mechanical Ventilator 100 08/02/20 00:00 21 115/73 Mechanical Ventilator 100 08/02/20 00:00 82 08/02/20 00:00 Mechanical Ventilator 08/01/20 23:56 22 139/63 Mechanical Ventilator 100 08/01/20 23:30 82 22 100 08/01/20 23:30 83 22 119/75 (90) 99 08/01/20 23:00 83 22 114/68 (83) 99 08/01/20 23:00 21 108/63 Mechanical Ventilator 100 08/01/20 23:00 22 108/63 Mechanical Ventilator 100 08/01/20 22:30 89 22 135/72 (93) 100 08/01/20 22:00 92 27 86/51 (63) 95 08/01/20 22:00 22 87/51 Mechanical Ventilator 100 08/01/20 22:00 22 82/48 Mechanical Ventilator 100 08/01/20 21:52 25 100/60 Mechanical Ventilator 100 08/01/20 21:30 95 26 87/43 (58) 94 08/01/20 21:15 97 26 82/48 (59) 93 08/01/20 21:00 22 83/50 Mechanical Ventilator 100 08/01/20 21:00 22 82/48 Mechanical Ventilator 100 08/01/20 21:00 21 82/48 Mechanical Ventilator 100 08/01/20 21:00 26 82/48 Mechanical Ventilator 100 08/01/20 21:00 97 84/42 08/01/20 21:00 97 26 90/50 (63) 93 08/01/20 20:54 98 26 86/46 (59) 93 08/01/20 20:45 98 26 85/42 (56) 93 08/01/20 20:30 100 27 84/51 (62) 93 08/01/20 20:00 99 08/01/20 20:00 99.2 82 21 98 08/01/20 20:00 21 83/50 Mechanical Ventilator 100 08/01/20 20:00 21 83/50 Mechanical Ventilator 100 08/01/20 20:00 Mechanical Ventilator 08/01/20 20:00 100 08/01/20 19:30 102 23 100 08/01/20 18:45 103 22 90/45 (60) 94 08/01/20 18:30 104 23 95/50 (65) 94 08/01/20 18:15 105 22 91/49 (63) 93 08/01/20 18:00 117 25 125/63 (83) 79 08/01/20 18:00 25 125/63 Mechanical Ventilator 100 08/01/20 18:00 25 125/63 Mechanical Ventilator 100 08/01/20 17:45 113 22 112/58 (76) 93 08/01/20 17:30 100.0 115 23 121/63 (82) 95 08/01/20 17:30 100.0 08/01/20 17:15 116 22 123/64 (83) 98 08/01/20 17:00 116 23 131/72 (91) 98 08/01/20 17:00 23 104/63 Mechanical Ventilator 100 08/01/20 17:00 23 104/63 Mechanical Ventilator 100 08/01/20 16:15 102.1 111 21 104/63 (77) 93 08/01/20 16:00 117 08/01/20 16:00 100 08/01/20 16:00 108 25 114/61 (78) 95 08/01/20 16:00 20 114/61 Mechanical Ventilator 100 08/01/20 16:00 20 114/61 Mechanical Ventilator 100 08/01/20 16:00 Mechanical Ventilator 08/01/20 15:45 109 26 114/64 (81) 95 08/01/20 15:30 108 22 117/64 (81) 95 08/01/20 15:15 109 24 115/66 (82) 96 08/01/20 15:01 108 24 100 08/01/20 15:00 21 112/62 Mechanical Ventilator 100 08/01/20 15:00 20 105/62 Mechanical Ventilator 100 08/01/20 15:00 108 25 117/64 (81) 96 08/01/20 14:15 105 25 107/63 (78) 94 08/01/20 14:00 106 25 105/62 (76) 94 08/01/20 14:00 20 105/62 Mechanical Ventilator 100 08/01/20 14:00 20 105/62 Mechanical Ventilator 100 08/01/20 13:45 104 24 100/54 (69) 94 08/01/20 13:30 106 25 95/55 (68) 94 08/01/20 13:15 106 24 93 08/01/20 13:00 105 25 97/58 (71) 94 08/01/20 13:00 20 97/58 100 08/01/20 13:00 20 97/58 Mechanical Ventilator 100 08/01/20 12:45 106 24 98/57 (71) 94 08/01/20 12:30 105 23 101/57 (72) 94 08/01/20 12:15 106 24 103/56 (72) 94 Sp02 EP Interpretation: reviewed, normal - However the patient is intubated and on ventilator General Appearance: other - Ill and sedated Head: normocephalic, atraumatic Eyes: bilateral eye other - Eyes closed ENT: other - Clot material observed that was removed from the right nostril. No active bleeding. No active bleeding from the left nostril. There is old blood from the mouth also. Endotracheal tube is present Neck: supple Respiratory: other - Good chest rise without respiratory distress Cardiovascular #1: regular rate, rhythm Gastrointestinal: overweight Musculoskeletal: other - Flaccid Neurologic: other - Sedated Psychiatric: other - Sedated Skin: other - No pallor Additional Procedure Procedure Narrative Nasal packing: A dual balloon Rhino Rocket was moistened with saline. This was inserted was inserted with ease into the right nostril. Both balloons were inflated with air. The patient had wincing when the Rhino Rocket was placed but when the balloons were inflated did not have tenderness. There is no evidence of any active bleeding after the Rhino Rocket was placed. Patient tolerated the procedure well. Medical Decision Making Diagnostic Impression: Primary Impression: Epistaxis Additional Impressions: Acute respiratory failure due to COVID-19 DMII (diabetes mellitus, type 2) Qualified Codes: E11.69 - Type 2 diabetes mellitus with other specified complication ER Course Intubated patient with bleeding from her mouth that seem to be coming from her right nostril. See procedure note. Rhino Rocket placed with no further bleeding. Further evaluation and follow-up as needed. Laboratory Tests Test 08/01/20 04:10 08/01/20 10:36 08/01/20 12:05 08/02/20 04:10 White Blood Count 17.8 K/UL (4.8-10.8) H 13.9 K/UL (4.8-10.8) H 11.9 K/UL (4.8-10.8) H Red Blood Count 2.64 M/UL (4.20-5.40) L 2.58 M/UL (4.20-5.40) L 2.54 M/UL (4.20-5.40) L Hemoglobin 7.6 G/DL (12.0-16.0) L 7.3 G/DL (12.0-16.0) L 7.2 G/DL (12.0-16.0) L Hematocrit 24.5 % (37.0-47.0) L 23.6 % (37.0-47.0) L 22.6 % (37.0-47.0) L Mean Corpuscular Volume 93 FL (80-99) 92 FL (80-99) 89 FL (80-99) Mean Corpuscular Hemoglobin 28.9 PG (27.0-31.0) 28.5 PG (27.0-31.0) 28.4 PG (27.0-31.0) Mean Corpuscular Hemoglobin Concent 31.3 G/DL (32.0-36.0) L 31.1 G/DL (32.0-36.0) L 32.0 G/DL (32.0-36.0) Red Cell Distribution Width 14.0 % (11.6-14.8) 14.9 % (11.6-14.8) H 14.0 % (11.6-14.8) Platelet Count 185 K/UL (150-450) 145 K/UL (150-450) L 130 K/UL (150-450) L Mean Platelet Volume 11.3 FL (6.5-10.1) H 10.6 FL (6.5-10.1) H 10.2 FL (6.5-10.1) H Neutrophils (%) (Auto) % (45.0-75.0) % (45.0-75.0) % (45.0-75.0) Lymphocytes (%) (Auto) % (20.0-45.0) % (20.0-45.0) % (20.0-45.0) Monocytes (%) (Auto) % (1.0-10.0) % (1.0-10.0) % (1.0-10.0) Eosinophils (%) (Auto) % (0.0-3.0) % (0.0-3.0) % (0.0-3.0) Basophils (%) (Auto) % (0.0-2.0) % (0.0-2.0) % (0.0-2.0) Differential Total Cells Counted 100 100 100 Neutrophils % (Manual) 92 % (45-75) H 91 % (45-75) H 87 % (45-75) H Lymphocytes % (Manual) 3 % (20-45) L 4 % (20-45) L 7 % (20-45) L Monocytes % (Manual) 5 % (1-10) 4 % (1-10) 5 % (1-10) Eosinophils % (Manual) 0 % (0-3) 0 % (0-3) 0 % (0-3) Basophils % (Manual) 0 % (0-2) 0 % (0-2) 1 % (0-2) Band Neutrophils 0 % (0-8) 1 % (0-8) 0 % (0-8) Platelet Estimate Adequate Decreased L Decreased L Platelet Morphology Normal Normal Normal Hypochromasia 2+ 1+ 3+ Anisocytosis 1+ 1+ 1+ Sodium Level 135 MMOL/L (136-145) L 132 MMOL/L (136-145) L Potassium Level 5.8 MMOL/L (3.5-5.1) H 5.3 MMOL/L (3.5-5.1) H Chloride Level 101 MMOL/L (98-107) 101 MMOL/L (98-107) Carbon Dioxide Level 31 MMOL/L (21-32) 26 MMOL/L (21-32) Anion Gap 3 mmol/L (5-15) L 5 mmol/L (5-15) Blood Urea Nitrogen 28 mg/dL (7-18) H 25 mg/dL (7-18) H Creatinine 0.9 MG/DL (0.55-1.30) 0.8 MG/DL (0.55-1.30) Estimated Glomerular Filtration Rate > 60 mL/min (>60) > 60 mL/min (>60) Glucose Level 323 MG/DL (74-106) H 297 MG/DL (74-106) H Calcium Level 8.5 MG/DL (8.5-10.1) 7.7 MG/DL (8.5-10.1) L Phosphorus Level 3.5 MG/DL (2.5-4.9) 3.4 MG/DL (2.5-4.9) Magnesium Level 2.3 MG/DL (1.8-2.4) 1.8 MG/DL (1.8-2.4) Total Bilirubin 0.2 MG/DL (0.2-1.0) < 0.1 MG/DL (0.2-1.0) L Aspartate Amino Transferase (AST) 41 U/L (15-37) H 53 U/L (15-37) H Alanine Aminotransferase (ALT) 31 U/L (12-78) 40 U/L (12-78) Alkaline Phosphatase 70 U/L (46-116) 52 U/L (46-116) Troponin I 0.044 ng/mL (0.000-0.056) C-Reactive Protein, Quantitative 3.6 mg/dL (0.00-0.90) H 2.5 mg/dL (0.00-0.90) H Pro-B-Type Natriuretic Peptide 785 pg/mL (0-125) H 542 pg/mL (0-125) H Total Protein 4.8 G/DL (6.4-8.2) L 4.0 G/DL (6.4-8.2) L Albumin 1.4 G/DL (3.4-5.0) L 1.2 G/DL (3.4-5.0) L Globulin 3.4 g/dL 2.8 g/dL Albumin/Globulin Ratio 0.4 (1.0-2.7) L 0.4 (1.0-2.7) L Arterial Blood pH 7.275 (7.350-7.450) Arterial Blood Partial Pressure CO2 63.4 mmHg (35.0-45.0) *H Arterial Blood Partial Pressure O2 75.5 mmHg (75.0-100.0) Arterial Blood HCO3 28.8 mmol/L (22.0-26.0) H Arterial Blood Oxygen Saturation 92.1 % (95-100) L Arterial Blood Base Excess 1.3 (-2-2) Timbo Test Positive Uric Acid 1.8 MG/DL (2.6-7.2) L Rhythm Strip Diag. Results Rhythm: NSR, no PVC's, no ectopy Last Vital Signs Date Time Temp Pulse Resp B/P (MAP) Pulse Ox O2 Delivery O2 Flow Rate FiO2 08/02/20 09:00 86 99/52 08/02/20 08:00 90 08/02/20 07:34 22 08/02/20 07:30 100 08/02/20 06:00 Mechanical Ventilator 08/02/20 04:00 99.0 Disposition: ADMITTED INPATIENT Condition: Stable Referrals: NOT CHOSEN IPA/,REFERRING (PCP) Additional Instructions: Please note that this report is being documented using DRAGON technology. This can lead to erroneous entry secondary to incorrect interpretation by the dictating instrument. Eduardo Londono MD Aug 02, 2020 12:09
--- NOTE | 2020-08-02 13:28 | Nephrology Progress Note ---
Assessment/Plan Problem List: (1) Hyponatremia (2) Hypoxia (3) Pneumonitis (4) Acute respiratory failure due to COVID-19 (5) DMII (diabetes mellitus, type 2) (6) HTN (hypertension) Assessment Hyponatremia, improved with saline infusion COVID-19 infection Pneumonia, acute respiratory failure, hypoxia Diabetes mellitus Hypertension Plan August 02: Labs reviewed. Serum sodium drifting down. Serum potassium remains higher than normal though improved since yesterday. Kayexalate via NG tube given and 250 cc 3% saline IV given continue to monitor renal parameters and electrolytes. August 01: Today's labs reviewed. Discussed with RN. Kayexalate for high potassium given. Hemoglobin lower. 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 Continue to monitor electrolytes and renal parameters. July 31: No CHEM panel drawn today. Remains full code. Intubated on ventilator. FiO2 85% now. Will check lab tomorrow. Continue to monitor renal parameters. July 30: Labs reviewed. Renal parameters stable. Continue per consultants. Intubated on ventilator with FiO2 of 100%. Full code. Not much to add from renal standpoint of view at this time. July 29 labs reviewed. Serum potassium elevated. Potassium supplement was put on hold on 1 dose of Kayexalate given. Levemir dose increased. Continue to monitor renal parameters. Patient remains on 100% FiO2 on ventilator. July 28: Labs reviewed. Renal parameters stable. Remains full code. Blood sugar remains high. Levemir dose increased. Not much to add from renal standpoint of view. FiO2 now is 100%. July 27: Labs reviewed. Renal parameters stable. Low potassium addressed. FiO2 70%. Blood sugar elevated. Levemir dose is being adjusted. Continue per consultants. July 26: Labs reviewed. Renal parameters stable. Patient now intubated on ventilator in ICU. Blood sugar elevated. Levemir added. Will watch electrolytes. Main management per head of biology and ID. July 25: Labs reviewed. Renal parameters stable. Continue per consultants. July 24: Labs reviewed. Renal parameters stable. Continue per pulmonary. Medication list reviewed. July 23: No labs drawn today. Medication list reviewed. Continue per career consultant. Patient full code. July 22: Labs reviewed. Stable renal parameters. Continue per consultants. July 21: No CHEM panel drawn today. Stable from renal standpoint of view. Blood pressure stable. July 20: IV changed to D5W 50 cc an hour. Renal parameters stable. Continue per consultants. July 19: Pulmonary status remains unstable. Stable from renal standpoint of view. July 18: Labs reviewed. Stable renal parameters and electrolytes. Continue per consultants. July 17: No labs drawn today. Remains stable from renal standpoint today. July 16: No labs drawn today. Continue per consultants. Stable from renal standpoint of view. July 15: Labs reviewed. Renal parameters stable. July 14: No labs from today. Continue per current management. Check labs tomorrow. July 13: No labs drawn today. Stable from renal standpoint of view. July 12: Today's labs pending. Medication list reviewed. Continue per current management and consultants. July 11: Labs reviewed. Renal parameters stable. July 10: Labs reviewed. Renal parameters electrolytes stable. Continue per consultants. July 09: Labs reviewed. Renal parameters and electrolytes stable. Continue per ID and pulmonary. Subjective ROS Limited/Unobtainable: Yes Objective Objective Last 24 Hour Vital Signs Date Time Temp Pulse Resp B/P (MAP) Pulse Ox O2 Delivery O2 Flow Rate FiO2 08/02/20 12:11 22 107/57 Mechanical Ventilator 90 08/02/20 11:13 80 22 90 08/02/20 09:00 86 99/52 08/02/20 08:00 90 08/02/20 07:34 85 22 100 08/02/20 07:30 82 22 102/56 (71) 100 08/02/20 07:15 79 22 107/59 (75) 99 08/02/20 07:00 78 22 125/66 (85) 99 08/02/20 06:00 75 24 126/67 (86) 100 08/02/20 06:00 21 102/56 Mechanical Ventilator 100 08/02/20 06:00 21 102/56 Mechanical Ventilator 100 08/02/20 05:15 78 24 126/78 (94) 100 08/02/20 05:00 21 126/78 Room Air 100 08/02/20 05:00 21 122/76 Mechanical Ventilator 100 08/02/20 05:00 21 104/50 Mechanical Ventilator 100 08/02/20 05:00 21 126/78 Mechanical Ventilator 100 08/02/20 05:00 77 26 114/73 (87) 99 08/02/20 04:59 23 105/57 Mechanical Ventilator 50 08/02/20 04:45 85 23 84/49 (61) 100 08/02/20 04:31 93/54 08/02/20 04:15 89 22 92/52 (65) 98 08/02/20 04:00 99.0 72/49 (57) 91 08/02/20 04:00 100 08/02/20 04:00 22 72/49 Mechanical Ventilator 100 08/02/20 04:00 22 92/51 Mechanical Ventilator 100 08/02/20 04:00 82 08/02/20 04:00 Mechanical Ventilator 08/02/20 03:30 87 24 100 08/02/20 03:30 99 22 115/63 (80) 100 08/02/20 03:15 86 24 92/51 (65) 97 08/02/20 03:00 22 92/51 Mechanical Ventilator 100 08/02/20 03:00 21 92/51 Mechanical Ventilator 100 08/02/20 03:00 87 22 96/53 (67) 98 08/02/20 02:45 86 22 89/51 (64) 98 08/02/20 02:30 87 23 92/52 (65) 98 08/02/20 02:15 86 22 88/54 (65) 97 08/02/20 02:00 85 22 90/51 (64) 97 08/02/20 02:00 22 88/54 Mechanical Ventilator 100 08/02/20 02:00 22 88/54 Mechanical Ventilator 100 08/02/20 01:30 86 22 97/52 (67) 99 08/02/20 01:00 21 90/52 Mechanical Ventilator 100 08/02/20 01:00 21 90/52 Endotracheal Tube 100 08/02/20 01:00 87 22 90/52 (65) 99 08/02/20 00:30 79 22 111/70 (84) 99 08/02/20 00:15 80 22 115/73 (87) 99 08/02/20 00:00 99.0 82 22 105/63 (77) 99 08/02/20 00:00 100 08/02/20 00:00 21 115/73 Mechanical Ventilator 100 08/02/20 00:00 21 115/73 Mechanical Ventilator 100 08/02/20 00:00 82 08/02/20 00:00 Mechanical Ventilator 08/01/20 23:56 22 139/63 Mechanical Ventilator 100 08/01/20 23:30 82 22 100 08/01/20 23:30 83 22 119/75 (90) 99 08/01/20 23:00 83 22 114/68 (83) 99 08/01/20 23:00 21 108/63 Mechanical Ventilator 100 08/01/20 23:00 22 108/63 Mechanical Ventilator 100 08/01/20 22:30 89 22 135/72 (93) 100 08/01/20 22:00 92 27 86/51 (63) 95 08/01/20 22:00 22 87/51 Mechanical Ventilator 100 08/01/20 22:00 22 82/48 Mechanical Ventilator 100 08/01/20 21:52 25 100/60 Mechanical Ventilator 100 08/01/20 21:30 95 26 87/43 (58) 94 08/01/20 21:15 97 26 82/48 (59) 93 08/01/20 21:00 22 83/50 Mechanical Ventilator 100 08/01/20 21:00 22 82/48 Mechanical Ventilator 100 08/01/20 21:00 21 82/48 Mechanical Ventilator 100 08/01/20 21:00 26 82/48 Mechanical Ventilator 100 08/01/20 21:00 97 84/42 08/01/20 21:00 97 26 90/50 (63) 93 08/01/20 20:54 98 26 86/46 (59) 93 08/01/20 20:45 98 26 85/42 (56) 93 08/01/20 20:30 100 27 84/51 (62) 93 08/01/20 20:00 99 08/01/20 20:00 99.2 82 21 98 08/01/20 20:00 21 83/50 Mechanical Ventilator 100 08/01/20 20:00 21 83/50 Mechanical Ventilator 100 08/01/20 20:00 Mechanical Ventilator 08/01/20 20:00 100 08/01/20 19:30 102 23 100 08/01/20 18:45 103 22 90/45 (60) 94 08/01/20 18:30 104 23 95/50 (65) 94 08/01/20 18:15 105 22 91/49 (63) 93 08/01/20 18:00 117 25 125/63 (83) 79 08/01/20 18:00 25 125/63 Mechanical Ventilator 100 08/01/20 18:00 25 125/63 Mechanical Ventilator 100 08/01/20 17:45 113 22 112/58 (76) 93 08/01/20 17:30 100.0 115 23 121/63 (82) 95 08/01/20 17:30 100.0 08/01/20 17:15 116 22 123/64 (83) 98 08/01/20 17:00 116 23 131/72 (91) 98 08/01/20 17:00 23 104/63 Mechanical Ventilator 100 08/01/20 17:00 23 104/63 Mechanical Ventilator 100 08/01/20 16:15 102.1 111 21 104/63 (77) 93 08/01/20 16:00 117 08/01/20 16:00 100 08/01/20 16:00 108 25 114/61 (78) 95 08/01/20 16:00 20 114/61 Mechanical Ventilator 100 08/01/20 16:00 20 114/61 Mechanical Ventilator 100 08/01/20 16:00 Mechanical Ventilator 08/01/20 15:45 109 26 114/64 (81) 95 08/01/20 15:30 108 22 117/64 (81) 95 08/01/20 15:15 109 24 115/66 (82) 96 08/01/20 15:01 108 24 100 08/01/20 15:00 21 112/62 Mechanical Ventilator 100 08/01/20 15:00 20 105/62 Mechanical Ventilator 100 08/01/20 15:00 108 25 117/64 (81) 96 08/01/20 14:15 105 25 107/63 (78) 94 08/01/20 14:00 106 25 105/62 (76) 94 08/01/20 14:00 20 105/62 Mechanical Ventilator 100 08/01/20 14:00 20 105/62 Mechanical Ventilator 100 08/01/20 13:45 104 24 100/54 (69) 94 08/01/20 13:30 106 25 95/55 (68) 94 Intake and Output 08/01/20 08/02/20 19:00 07:00 Intake Total 1680 ml 1374.3 ml Output Total 1725 ml 1090 ml Balance -45 ml 284.3 ml Free Water 30 ml IV Total 1100 ml 1374.3 ml Tube Feeding 550 ml Output Urine Total 1725 ml 1090 ml Current Medications Medications (Trade) Dose Ordered Sig/Marian Route PRN Reason Start Time Stop Time Status Last Admin Dose Admin Acetaminophen (Tylenol) 650 mg Q4H PRN RECTAL Temp >100.5 07/18/20 18:30 08/17/20 18:29 08/01/20 16:50 Acetaminophen (Tylenol) 650 mg Q6H PRN ORAL For Pain 07/07/20 15:45 08/06/20 15:44 07/29/20 16:28 Acetaminophen (Tylenol) 650 mg Q6H PRN ORAL FEVER 07/07/20 16:15 08/06/20 16:14 07/30/20 12:36 Benzonatate (Tessalon Perles) 100 mg TIDPRN PRN ORAL For Cough 07/18/20 18:30 08/17/20 18:29 Cefepime HCl 2 gm/ Dextrose 55 ml @ 110 mls/hr Q12HR IVPB 07/22/20 13:00 08/04/20 14:00 08/02/20 08:59 Chlorhexidine Gluconate (Rafaela-Hex 2%) 1 applic DAILY@2000 TOPIC 08/01/20 20:00 10/30/20 19:59 08/01/20 20:15 Dextrose (Dextrose 50%) 25 ml Q30M PRN IV Hypoglycemia 07/07/20 15:45 10/05/20 15:44 Dextrose (Dextrose 50%) 50 ml Q30M PRN IV Hypoglycemia 07/07/20 15:45 10/05/20 15:44 Docusate Sodium (Colace) 100 mg TID NG 07/29/20 13:00 08/25/20 17:59 08/02/20 12:32 Enoxaparin Sodium (Lovenox) 70 mg EVERY 12 HOURS SUBQ 07/25/20 21:00 10/23/20 20:59 08/01/20 21:23 Famotidine (Pepcid I.v.) 20 mg Q12HR IVP 07/20/20 09:00 08/19/20 08:59 08/02/20 08:59 Fentanyl Citrate 250 ml @ 1 mls/hr Q24H PRN IV SEDATION 07/29/20 15:00 08/02/20 14:59 08/01/20 23:56 Insulin Aspart (NovoLOG) Q6HR SUBQ 07/26/20 12:00 10/24/20 11:59 08/02/20 12:19 Insulin Detemir (Levemir) 30 units Q12HR SUBQ 08/01/20 21:00 10/24/20 10:29 08/02/20 09:00 Methylprednisolone Sodium Succinate (Solu-MEDROL) 20 mg EVERY 6 HOURS IVP 07/22/20 12:00 10/19/20 08:59 08/02/20 12:10 Metoprolol Tartrate (Lopressor) 25 mg EVERY 12 HOURS NG 07/26/20 21:00 10/24/20 20:59 07/31/20 09:02 Midazolam HCl 200 ml @ 0 mls/hr Q24H PRN IV Agitation 07/29/20 22:45 08/05/20 22:44 08/02/20 12:11 Norepinephrine Bitartrate 250 ml @ 0 mls/hr Q24H IV 08/01/20 00:45 08/04/20 00:33 08/02/20 04:31 Sodium Chloride 250 ml @ 30 mls/hr ONCE ONCE IV 08/02/20 09:30 08/02/20 17:49 08/02/20 10:23 Sorbitol (sorbitoL) 45 ml Q12HR PRN ORAL Constipation 07/30/20 09:15 08/29/20 09:14 Mild laboratory Tests 08/02/20 04:10: White Blood Count 11.9H, Red Blood Count 2.54L, Hemoglobin 7.2L, Hematocrit 22.6L, Mean Corpuscular Volume 89, Mean Corpuscular Hemoglobin 28.4, Mean Corpus cular Hemoglobin Concent 32.0, Red Cell Distribution Width 14.0, Platelet Count 130L, Mean Platelet Volume 10.2H, Neutrophils (%) (Auto) , Lymphocytes (%) (Auto) , Monocytes (%) (Auto) , Eosinophils (%) (Auto) , Basophils (%) (Auto) , Differential Total Cells Counted 100, Neutrophils % (Manual) 87H, Lymphocytes % (Manual) 7L, Monocytes % (Manual) 5, Eosinophils % (Manual) 0, Basophils % (Manual) 1, Band Neutrophils 0, Platelet Estimate DecreasedL, Platelet Morphology Normal, Hypochromasia 3+, Anisocytosis 1+, Sodium Level 132L, Potassium Level 5.3H, Chloride Level 101, Carbon Dioxide Level 26, Anion Gap 5, Blood Urea Nitrogen 25H, Creatinine 0.8, Estimat Glomerular Filtration Rate > 60, Glucose Level 297H, Uric Acid 1.8L, Calcium Level 7.7L, Phosphorus Level 3.4, Magnesium Level 1.8, Total Bilirubin < 0.1L, Aspartate Amino Transf (AST/SGOT) 53H, Alanine Aminotransferase (ALT/SGPT) 40, Alkaline Phosphatase 52, C-Reactive Protein, Quantitative 2.5H, Pro-B-Type Natriuretic Peptide 542H, Total Protein 4.0L, Albumin 1.2L, Globulin 2.8, Albumin/Globulin Ratio 0.4L Height (Feet): 5 Height (Inches): 3.00 Weight (Pounds): 162 General Appearance: no apparent distress Cardiovascular: normal rate Respiratory/Chest: decreased breath sounds Abdomen: soft Objective No change Anurag Bridges MD Aug 02, 2020 13:28
[2020-08-02] MEDS: fentaNYL 2500mcg/NS 250ml 250 ML IV PRN (16:00)
--- NOTE | 2020-08-02 19:30 | NUR ---
NURSE NOTES: Received pt with continuos bleeding from mouth and nose, blood clots dripping at times on pts lips, mds and family were aware. orally intubated on ac mode, sedated with fentanyl drip at 150mcg/min and Versed drip at 15mg/hr. All IVF been infusing to Rt femoral central line , with drsg dry and intact. skin is intact but pt with 2-3+ edema. npO at this time. OGT clamped. oral care done/ Fernandez to gravity with ankita yellow urine moderate in amt. monitor I and O. monitor lytes. Will continue to monitor.
--- NOTE | 2020-08-02 19:38 | NUR ---
729: Received report from previous RN. Pt intubated and sedated on ventilator. Pt bledding from mouth and nose. I unit PRBC transfused overnight. 829: Dr. De Luna called after removing clots from nose and mouth. Verbal orders to transfuse 1 unit PRBC and 2 unit FFP. Pt remains with good urine output. 1200: MD at bedside and inserted rhino rocket into R nostril. 1300: Pt received PRBC without any adverse reaction. Pt continues to bleed through mouth and nose. No other bleeding noted elsewhere. 184: Pt received 1 unit FFP without any adverse reaction. Pt now currently running fever. Will hold off on second unit until temperature is within notmal range. 1929: Report given to [facility] GAINES. Rn made aware of 1 unit of FFP remaining. All questions answered. Pt no longer on levophed. Pt remains with fentanyl and versed infusing. VSS at this time. Care continues.
[2020-08-02] MEDS: Dyna-Hex 2% Top Sol 2oz TOPIC SCH (20:11)
--- NOTE | 2020-08-02 22:00 | NUR ---
NURSE NOTES: Family called, updated with pts condition, verbalized understanding.
--- NOTE | 2020-08-02 22:20 | NUR ---
NURSE NOTES: transfused 1 unit fresh frozen plasma unit no. [id number] AB+, watch for any transfusion reaction
[2020-08-03] VITALS (72 sets, daily range): BP systolic 85–148; BP diastolic 48–84
--- NOTE | 2020-08-03 | NUR ---
NURSE NOTES: Accucheck done no coverage, pls see emar.
[2020-08-03] MEDS: Solu-MEDROL 40mg Inj IVP SCH ×4 (00:14→18:15)
[2020-08-03] MEDS: Norepinephrine 4mg/NS Premix 250 ML IV SCH ×2 (00:16→10:30)
[2020-08-03] MEDS: Versed 100mg/NS 200ml 200 ML IV PRN ×4 (00:57→21:56)
--- NOTE | 2020-08-03 04:00 | NUR ---
NURSE NOTES: Complete bed bath with bed changed was done.
[2020-08-03 05:46] LABS: HEMATOCRIT 27.6 % (37.0-47.0); MEAN CORPUSCULAR VOLUME 86 FL (80-99); PLATELET COUNT 174 K/UL (150-450); RED CELL DISTRIBUTION WIDTH 14.7 % (11.6-14.8); WHITE BLOOD COUNT 18.2 K/UL (4.8-10.8)
[2020-08-03] MEDS: NovoLOG Insulin Flexpen SUBQ SCH ×4 (05:48→18:15)
[2020-08-03 05:58] LABS: ANION GAP 7 mmol/L (5-15); BLOOD UREA NITROGEN 22 mg/dL (7-18); CALCIUM 8.4 MG/DL (8.5-10.1); CARBON DIOXIDE 30 MMOL/L (21-32); CHLORIDE 103 MMOL/L (98-107); CREATININE 0.7 MG/DL (0.55-1.30); POTASSIUM 4.4 MMOL/L (3.5-5.1); SODIUM 140 MMOL/L (136-145)
--- NOTE | 2020-08-03 06:00 | NUR ---
NURSE NOTES: Accucheck 110, no coverage, since pts NPO.
--- NOTE | 2020-08-03 07:41 | NUR ---
NURSE HAND-OFF REPORT: Latest Vital Signs: Temperature 98.6 , Pulse 99 , B/P 101 /57 , Respiratory Rate 23 , O2 SAT 98 , Mechanical Ventilator, O2 Flow Rate . Vital Sign Comment: EKG Rhythm: Sinus Rhythm Rhythm change?: N MD Notified?: N - MD Response: Latest Plaza Fall Score: 50 Fall Risk: High Risk Safety Measures: Call light Within Reach, Bed Alarm Zone 3, Side Rails Side Rails x2, Bed position Low and Locked. Fall Precautions: Yellow Socks Yellow Gown Door Sign Patient Fall Education Report given to .
[2020-08-03] MEDS: Docusate 100mg/10ml Liq NG SCH ×3 (08:30→18:15)
[2020-08-03] MEDS: Enoxaparin 80mg Inj SUBQ SCH ×2 (08:31→21:00)
[2020-08-03] MEDS: Cefepime HCl 2 GM in D5W 55 ML IVPB SCH ×2 (08:35→21:39)
[2020-08-03] MEDS: Levemir Flexpen SUBQ SCH ×2 (08:55→21:40)
[2020-08-03] MEDS: fentaNYL 2500mcg/NS 250ml 250 ML IV PRN (08:58)
--- NOTE | 2020-08-03 09:56 | Infectious Diseases Prog Note ---
Assessment/Plan Assessment/Plan A: 1. COVID-19 pneumonia. 2. Pseudomonas pneumonia. 3. Respiratory failure with hypoxemia & hypercapnia 4. Leukocytosis 5. DM 6. Epistaxis PLAN: 1. Continue cefepime. 2. Discontinue isolation. 3. Continue Solu-Medrol. 4. Case was D/W RN Subjective ROS Limited/Unobtainable: Yes Constitutional: Denies: fever HEENT: Reports: other - nasal bleeding, R nostril was packed Cardiovascular: Reports: other - off of Levophed Allergies: Coded Allergies: No Known Allergies (Unverified , 07/07/20) Objective Last 24 Hour Vital Signs Date Time Temp Pulse Resp B/P (MAP) Pulse Ox O2 Delivery O2 Flow Rate FiO2 08/03/20 09:15 98 25 90/48 (62) 08/03/20 09:00 22 89/50 Mechanical Ventilator 100 08/03/20 09:00 22 89/50 Mechanical Ventilator 100 08/03/20 09:00 97 26 93/54 (67) 08/03/20 08:58 22 98/56 Mechanical Ventilator 100 08/03/20 08:45 101 23 89/56 (67) 08/03/20 08:31 105 90/59 08/03/20 08:30 105 22 90/59 (69) 100 08/03/20 08:15 106 22 95/59 (71) 100 08/03/20 08:00 99 08/03/20 08:00 Mechanical Ventilator 08/03/20 08:00 99.1 107 22 88/57 (67) 98 08/03/20 08:00 22 95/59 Mechanical Ventilator 100 08/03/20 08:00 22 96/59 Mechanical Ventilator 100 08/03/20 08:00 100 08/03/20 07:45 117 22 100 08/03/20 07:45 112 22 96/58 (71) 98 08/03/20 07:30 124 23 123/66 (85) 61 08/03/20 07:15 120 24 124/71 (88) 70 08/03/20 07:00 22 98/66 Mechanical Ventilator 90 08/03/20 07:00 22 98/66 Mechanical Ventilator 90 08/03/20 07:00 111 21 98/66 (77) 96 08/03/20 06:00 21 101/57 Mechanical Ventilator 90 08/03/20 06:00 23 101/57 Mechanical Ventilator 45 08/03/20 06:00 99 22 103/59 (74) 98 08/03/20 05:30 112 22 107/62 (77) 98 08/03/20 05:17 109 24 90 08/03/20 05:00 107 22 110/64 (79) 99 08/03/20 05:00 23 105/59 Mechanical Ventilator 90 08/03/20 05:00 21 105/59 Mechanical Ventilator 45 08/03/20 04:30 99 22 148/84 (105) 99 08/03/20 04:00 Mechanical Ventilator 08/03/20 04:00 22 139/80 Mechanical Ventilator 90 08/03/20 04:00 23 139/80 Mechanical Ventilator 90 08/03/20 04:00 98.6 103 22 145/77 (99) 97 08/03/20 04:00 87 08/03/20 04:00 90 08/03/20 03:30 87 24 140/76 (97) 98 08/03/20 03:18 85 26 90 08/03/20 03:15 86 24 135/80 (98) 98 08/03/20 03:00 21 136/80 Mechanical Ventilator 90 08/03/20 03:00 24 135/80 Mechanical Ventilator 90 08/03/20 03:00 85 25 135/78 (97) 98 08/03/20 02:45 86 25 139/81 (100) 98 08/03/20 02:30 85 24 138/82 (100) 98 08/03/20 02:15 86 24 138/76 (96) 98 08/03/20 02:00 22 115/60 Mechanical Ventilator 45 08/03/20 02:00 21 138/76 Mechanical Ventilator 45 08/03/20 02:00 86 24 133/83 (100) 98 08/03/20 01:45 87 23 134/76 (95) 99 08/03/20 01:30 87 22 137/79 (98) 99 08/03/20 01:15 88 22 135/78 (97) 99 08/03/20 01:00 85 22 134/75 (94) 100 08/03/20 01:00 21 138/75 Mechanical Ventilator 45 08/03/20 01:00 21 135/78 Mechanical Ventilator 45 08/03/20 00:57 21 120/78 100 08/03/20 00:30 87 22 129/81 (97) 100 08/03/20 00:16 131/79 08/03/20 00:00 99.0 91 22 140/84 (102) 100 08/03/20 00:00 100 08/03/20 00:00 90 08/03/20 00:00 21 131/79 Non-Rebreather 45 08/03/20 00:00 22 131/79 Mechanical Ventilator 45 08/03/20 00:00 Mechanical Ventilator 08/02/20 23:30 112 27 142/76 (98) 90 08/02/20 23:21 109 26 90 08/02/20 23:00 97 25 91/53 (66) 96 08/02/20 23:00 22 122/73 Mechanical Ventilator 45 08/02/20 23:00 22 103/61 Mechanical Ventilator 45 08/02/20 22:30 98 25 95/55 (68) 96 08/02/20 22:15 100 25 103/61 (75) 96 08/02/20 22:00 25 103/61 Mechanical Ventilator 45 08/02/20 22:00 21 122/73 Mechanical Ventilator 45 08/02/20 22:00 99 23 100/59 (73) 96 08/02/20 21:45 100 25 98/56 (70) 97 08/02/20 21:30 98 24 95/59 (71) 97 08/02/20 21:16 92 25 90 08/02/20 21:15 99.0 99 24 94/58 (70) 97 08/02/20 21:00 99 25 102/54 (70) 97 08/02/20 21:00 25 94/58 Mechanical Ventilator 45 08/02/20 21:00 25 94/58 Mechanical Ventilator 45 08/02/20 20:51 100 90/58 08/02/20 20:30 102 22 105/60 (75) 98 08/02/20 20:15 100 22 99/57 (71) 97 08/02/20 20:00 99.8 115 27 93/65 (74) 88 08/02/20 20:00 101 08/02/20 20:00 90 08/02/20 20:00 22 99/57 Mechanical Ventilator 90 08/02/20 20:00 21 99/57 Mechanical Ventilator 90 08/02/20 20:00 Mechanical Ventilator 08/02/20 19:29 99.8 08/02/20 19:20 93 26 90 08/02/20 19:00 100.8 87 25 106/64 (78) 96 08/02/20 19:00 22 106/64 Mechanical Ventilator 90 08/02/20 19:00 22 106/64 Mechanical Ventilator 90 08/02/20 18:50 27 104/57 90 08/02/20 18:45 87 24 104/57 (73) 96 08/02/20 18:30 87 24 103/61 (75) 96 08/02/20 18:15 86 24 106/63 (77) 97 08/02/20 18:00 86 24 106/59 (75) 96 08/02/20 18:00 22 106/59 Mechanical Ventilator 90 08/02/20 18:00 22 106/59 Mechanical Ventilator 90 08/02/20 17:45 84 22 117/65 (82) 98 08/02/20 17:30 85 22 115/60 (78) 98 08/02/20 17:15 99.4 84 22 111/61 (78) 98 08/02/20 17:00 82 22 108/61 (77) 99 08/02/20 17:00 22 108/61 Mechanical Ventilator 90 08/02/20 17:00 22 108/61 Mechanical Ventilator 90 08/02/20 16:45 83 22 103/58 (73) 99 08/02/20 16:30 82 22 104/54 (71) 98 08/02/20 16:20 81 22 102/52 (69) 97 08/02/20 16:00 22 102/52 Mechanical Ventilator 90 08/02/20 16:00 22 102/57 Mechanical Ventilator 90 08/02/20 16:00 84 08/02/20 16:00 Mechanical Ventilator 08/02/20 16:00 99.2 22 102/52 (69) 98 08/02/20 16:00 90 08/02/20 15:45 83 21 112/66 (81) 97 08/02/20 15:37 86 23 90 08/02/20 15:30 86 22 109/62 (78) 99 08/02/20 15:15 81 22 111/65 (80) 99 08/02/20 15:00 22 117/63 Mechanical Ventilator 90 08/02/20 15:00 22 117/63 Mechanical Ventilator 90 08/02/20 15:00 82 24 117/63 (81) 99 08/02/20 14:45 81 23 116/69 (85) 99 08/02/20 14:30 82 23 115/67 (83) 99 08/02/20 14:15 84 24 113/64 (80) 98 08/02/20 14:00 22 114/64 Mechanical Ventilator 90 08/02/20 14:00 22 114/64 Mechanical Ventilator 90 08/02/20 14:00 22 114/64 Mechanical Ventilator 90 08/02/20 14:00 22 114/64 Mechanical Ventilator 90 08/02/20 14:00 22 114/64 Mechanical Ventilator 90 08/02/20 14:00 22 114/64 Mechanical Ventilator 90 08/02/20 14:00 22 114/64 Mechanical Ventilator 90 08/02/20 14:00 22 114/64 Mechanical Ventilator 90 08/02/20 14:00 22 114/64 Mechanical Ventilator 90 08/02/20 14:00 22 114/64 Mechanical Ventilator 90 08/02/20 14:00 22 114/64 Mechanical Ventilator 90 08/02/20 14:00 22 114/64 Mechanical Ventilator 90 08/02/20 14:00 22 114/64 Mechanical Ventilator 90 08/02/20 14:00 22 114/64 Mechanical Ventilator 90 08/02/20 14:00 82 23 114/64 (81) 99 08/02/20 13:45 81 23 112/65 (81) 98 08/02/20 13:30 82 23 115/64 (81) 98 08/02/20 13:15 82 23 115/62 (79) 98 08/02/20 13:00 83 23 112/65 (81) 98 08/02/20 13:00 22 112/65 Mechanical Ventilator 90 08/02/20 13:00 22 112/65 Mechanical Ventilator 90 08/02/20 13:00 22 112/65 Mechanical Ventilator 90 08/02/20 13:00 22 112/65 Mechanical Ventilator 90 08/02/20 13:00 22 112/65 Mechanical Ventilator 90 08/02/20 13:00 22 112/65 Mechanical Ventilator 90 08/02/20 13:00 22 112/65 Mechanical Ventilator 90 08/02/20 13:00 22 112/65 Mechanical Ventilator 90 08/02/20 13:00 22 112/65 Mechanical Ventilator 90 08/02/20 13:00 22 112/65 Mechanical Ventilator 100 08/02/20 13:00 22 112/65 Mechanical Ventilator 100 08/02/20 13:00 22 112/65 Mechanical Ventilator 90 08/02/20 13:00 22 112/65 Mechanical Ventilator 100 08/02/20 13:00 22 112/65 Mechanical Ventilator 100 08/02/20 12:45 84 22 118/63 (81) 98 08/02/20 12:30 87 22 116/63 (80) 98 08/02/20 12:15 98.1 87 22 114/66 (82) 98 08/02/20 12:11 22 107/57 Mechanical Ventilator 90 08/02/20 12:00 98.3 81 23 97 08/02/20 12:00 Mechanical Ventilator 08/02/20 12:00 78 08/02/20 12:00 98.3 81 23 107/57 (74) 97 08/02/20 12:00 22 107/57 Mechanical Ventilator 90 08/02/20 12:00 22 107/57 Mechanical Ventilator 90 08/02/20 12:00 22 107/57 Mechanical Ventilator 90 08/02/20 12:00 22 107/57 Mechanical Ventilator 90 08/02/20 12:00 22 107/57 Mechanical Ventilator 90 08/02/20 12:00 22 107/57 Mechanical Ventilator 90 08/02/20 12:00 22 107/57 Mechanical Ventilator 90 08/02/20 12:00 22 107/57 Mechanical Ventilator 90 08/02/20 12:00 22 107/57 Mechanical Ventilator 90 08/02/20 12:00 22 107/57 Mechanical Ventilator 90 08/02/20 12:00 22 107/57 Mechanical Ventilator 90 08/02/20 12:00 22 107/57 Mechanical Ventilator 90 08/02/20 12:00 22 107/57 Mechanical Ventilator 90 08/02/20 12:00 22 107/57 Mechanical Ventilator 90 08/02/20 12:00 90 08/02/20 11:45 83 23 88/45 (59) 97 08/02/20 11:30 80 22 99/54 (69) 98 08/02/20 11:15 80 22 98/55 (69) 97 08/02/20 11:13 80 22 90 08/02/20 11:00 22 94/53 Mechanical Ventilator 90 08/02/20 11:00 22 94/53 Mechanical Ventilator 90 08/02/20 11:00 22 94/53 Mechanical Ventilator 90 08/02/20 11:00 22 94/53 Mechanical Ventilator 90 08/02/20 11:00 22 94/53 Mechanical Ventilator 90 08/02/20 11:00 22 94/53 Mechanical Ventilator 90 08/02/20 11:00 22 94/53 Mechanical Ventilator 90 08/02/20 11:00 22 94/53 Mechanical Ventilator 90 08/02/20 11:00 22 94/53 Mechanical Ventilator 90 08/02/20 11:00 22 94/53 Mechanical Ventilator 90 08/02/20 11:00 22 94/53 Mechanical Ventilator 90 08/02/20 11:00 22 94/53 Mechanical Ventilator 90 08/02/20 11:00 22 94/53 Mechanical Ventilator 90 08/02/20 11:00 22 94/53 Mechanical Ventilator 90 08/02/20 11:00 81 22 94/53 (67) 98 08/02/20 10:45 81 22 97/52 (67) 97 08/02/20 10:30 80 23 100/55 (70) 97 08/02/20 10:15 80 23 99/54 (69) 97 08/02/20 10:00 82 24 96/57 (70) 97 08/02/20 10:00 22 96/57 Mechanical Ventilator 90 08/02/20 10:00 22 96/57 Mechanical Ventilator 90 08/02/20 10:00 22 96/57 Mechanical Ventilator 90 08/02/20 10:00 22 96/57 Mechanical Ventilator 90 08/02/20 10:00 22 96/57 Mechanical Ventilator 90 08/02/20 10:00 22 96/57 Mechanical Ventilator 90 08/02/20 10:00 22 96/57 Mechanical Ventilator 90 08/02/20 10:00 22 96/57 Mechanical Ventilator 90 08/02/20 10:00 22 96/57 Mechanical Ventilator 90 08/02/20 10:00 22 96/57 Mechanical Ventilator 90 08/02/20 10:00 22 96/57 Mechanical Ventilator 90 08/02/20 10:00 22 96/57 Mechanical Ventilator 90 08/02/20 10:00 22 96/57 Mechanical Ventilator 90 08/02/20 10:00 22 96/57 Mechanical Ventilator 90 08/02/20 10:00 22 96/57 Mechanical Ventilator 90 08/02/20 10:00 22 96/57 Mechanical Ventilator 90 08/02/20 10:00 22 96/57 Mechanical Ventilator 90 08/02/20 10:00 22 96/57 Mechanical Ventilator 90 Height (Feet): 5 Height (Inches): 3.00 Weight (Pounds): 162 HEENT: other - orally intubated Respiratory/Chest: other - on ventilator, [id number]% Cardiovascular: normal rate, other - Femoral central line Abdomen: soft, non tender, other - orogastric tube Extremities: other - generalized edema Neurologic/Psychiatric: other - sedated Laboratory Tests Test 08/03/20 04:20 White Blood Count 18.2 K/UL (4.8-10.8) #H Red Blood Count 3.20 M/UL (4.20-5.40) L Hemoglobin 9.0 G/DL (12.0-16.0) L Hematocrit 27.6 % (37.0-47.0) L Mean Corpuscular Volume 86 FL (80-99) Mean Corpuscular Hemoglobin 28.2 PG (27.0-31.0) Mean Corpuscular Hemoglobin Concent 32.7 G/DL (32.0-36.0) Red Cell Distribution Width 14.7 % (11.6-14.8) Platelet Count 174 K/UL (150-450) Mean Platelet Volume 9.2 FL (6.5-10.1) Neutrophils (%) (Auto) % (45.0-75.0) Lymphocytes (%) (Auto) % (20.0-45.0) Monocytes (%) (Auto) % (1.0-10.0) Eosinophils (%) (Auto) % (0.0-3.0) Basophils (%) (Auto) % (0.0-2.0) Differential Total Cells Counted 100 Neutrophils % (Manual) 93 % (45-75) H Lymphocytes % (Manual) 5 % (20-45) L Monocytes % (Manual) 2 % (1-10) Eosinophils % (Manual) 0 % (0-3) Basophils % (Manual) 0 % (0-2) Band Neutrophils 0 % (0-8) Platelet Estimate Adequate Platelet Morphology Normal Hypochromasia 1+ Anisocytosis 1+ Prothrombin Time 11.4 SEC (9.30-11.50) Prothromb Time International Ratio 1.0 (0.9-1.1) Activated Partial Thromboplast Time 29 SEC (23-33) Sodium Level 140 MMOL/L (136-145) Potassium Level 4.4 MMOL/L (3.5-5.1) Chloride Level 103 MMOL/L (98-107) Carbon Dioxide Level 30 MMOL/L (21-32) Anion Gap 7 mmol/L (5-15) Blood Urea Nitrogen 22 mg/dL (7-18) H Creatinine 0.7 MG/DL (0.55-1.30) Estimat Glomerular Filtration Rate > 60 mL/min (>60) Glucose Level 123 MG/DL (74-106) #H Calcium Level 8.4 MG/DL (8.5-10.1) L Current Medications Medications (Trade) Dose Ordered Sig/Marian Route PRN Reason Start Time Stop Time Status Last Admin Dose Admin Acetaminophen (Tylenol) 650 mg Q4H PRN RECTAL Temp >100.5 07/18/20 18:30 08/17/20 18:29 08/01/20 16:50 Acetaminophen (Tylenol) 650 mg Q6H PRN ORAL For Pain 07/07/20 15:45 08/06/20 15:44 08/02/20 18:59 Acetaminophen (Tylenol) 650 mg Q6H PRN ORAL FEVER 07/07/20 16:15 08/06/20 16:14 07/30/20 12:36 Benzonatate (Tessalon Perles) 100 mg TIDPRN PRN ORAL For Cough 07/18/20 18:30 08/17/20 18:29 Cefepime HCl 2 gm/ Dextrose 55 ml @ 110 mls/hr Q12HR IVPB 07/22/20 13:00 08/06/20 12:59 08/03/20 08:35 Chlorhexidine Gluconate (Rafaela-Hex 2%) 1 applic DAILY@2000 TOPIC 08/01/20 20:00 10/30/20 19:59 08/02/20 20:11 Dextrose (Dextrose 50%) 25 ml Q30M PRN IV Hypoglycemia 07/07/20 15:45 10/05/20 15:44 Dextrose (Dextrose 50%) 50 ml Q30M PRN IV Hypoglycemia 07/07/20 15:45 10/05/20 15:44 Docusate Sodium (Colace) 100 mg TID NG 07/29/20 13:00 08/25/20 17:59 08/03/20 08:30 Enoxaparin Sodium (Lovenox) 70 mg EVERY 12 HOURS SUBQ 07/25/20 21:00 10/23/20 20:59 08/01/20 21:23 Famotidine (Pepcid I.v.) 20 mg Q12HR IVP 07/20/20 09:00 08/19/20 08:59 08/03/20 08:30 Fentanyl Citrate 250 ml @ 1 mls/hr Q24H PRN IV SEDATION 08/02/20 16:00 08/04/20 15:59 08/03/20 08:58 Insulin Aspart (NovoLOG) Q6HR SUBQ 07/26/20 12:00 10/24/20 11:59 08/02/20 18:00 Insulin Detemir (Levemir) 30 units Q12HR SUBQ 08/01/20 21:00 10/24/20 10:29 08/03/20 08:55 Methylprednisolone Sodium Succinate (Solu-MEDROL) 20 mg EVERY 6 HOURS IVP 07/22/20 12:00 10/19/20 08:59 08/03/20 05:48 Metoprolol Tartrate (Lopressor) 25 mg EVERY 12 HOURS NG 07/26/20 21:00 10/24/20 20:59 07/31/20 09:02 Midazolam HCl 200 ml @ 0 mls/hr Q24H PRN IV Agitation 07/29/20 22:45 08/05/20 22:44 08/03/20 08:00 Norepinephrine Bitartrate 250 ml @ 0 mls/hr Q24H IV 08/01/20 00:45 08/04/20 00:33 08/03/20 00:16 Sorbitol (sorbitoL) 45 ml Q12HR PRN ORAL Constipation 07/30/20 09:15 08/29/20 09:14 Stephon Segovia MD Aug 03, 2020 09:56
--- NOTE | 2020-08-03 10:29 | Nephrology Progress Note ---
Assessment/Plan Problem List: (1) Hyponatremia (2) Hypoxia (3) Pneumonitis (4) Acute respiratory failure due to COVID-19 (5) DMII (diabetes mellitus, type 2) (6) HTN (hypertension) Assessment Hyponatremia, improved with saline infusion COVID-19 infection Pneumonia, acute respiratory failure, hypoxia Diabetes mellitus Hypertension Plan August 03: Labs reviewed. Discussed with RN. Patient n.p.o. at this time. Will start IV until feeding resumes. Continue to monitor electrolytes and renal parameters. Medication list reviewed. Continue per consultants. August 02: Labs reviewed. Serum sodium drifting down. Serum potassium remains higher than normal though improved since yesterday. Kayexalate via NG tube given and 250 cc 3% saline IV given continue to monitor renal parameters and electrolytes. August 01: Today's labs reviewed. Discussed with RN. Kayexalate for high potassium given. Hemoglobin lower. Defer transfusion to machine operator. Continue to monitor electrolytes and renal parameters. July 31: No CHEM panel drawn today. Remains full code. Intubated on ventilator. FiO2 85% now. Will check lab tomorrow. Continue to monitor renal parameters. July 30: Labs reviewed. Renal parameters stable. Continue per consultants. Intubated on ventilator with FiO2 of 100%. Full code. Not much to add from renal standpoint of view at this time. July 29 labs reviewed. Serum potassium elevated. Potassium supplement was put on hold on 1 dose of Kayexalate given. Levemir dose increased. Continue to monitor renal parameters. Patient remains on 100% FiO2 on ventilator. July 28: Labs reviewed. Renal parameters stable. Remains full code. Blood sugar remains high. Levemir dose increased. Not much to add from renal standpoint of view. FiO2 now is 100%. July 27: Labs reviewed. Renal parameters stable. Low potassium addressed. FiO2 70%. Blood sugar elevated. Levemir dose is being adjusted. Continue per consultants. July 26: Labs reviewed. Renal parameters stable. Patient now intubated on ventilator in ICU. Blood sugar elevated. Levemir added. Will watch electrolytes. Main management per sand cutter operator and ID. July 25: Labs reviewed. Renal parameters stable. Continue per consultants. July 24: Labs reviewed. Renal parameters stable. Continue per pulmonary. Medication list reviewed. July 23: No labs drawn today. Medication list reviewed. Continue per senior treasury consultant. Patient full code. July 22: Labs reviewed. Stable renal parameters. Continue per consultants. July 21: No CHEM panel drawn today. Stable from renal standpoint of view. Blood pressure stable. July 20: IV changed to D5W 50 cc an hour. Renal parameters stable. Continue per consultants. July 19: Pulmonary status remains unstable. Stable from renal standpoint of view. July 18: Labs reviewed. Stable renal parameters and electrolytes. Continue per consultants. July 17: No labs drawn today. Remains stable from renal standpoint today. July 16: No labs drawn today. Continue per consultants. Stable from renal standpoint of view. July 15: Labs reviewed. Renal parameters stable. July 14: No labs from today. Continue per current management. Check labs tomorrow. July 13: No labs drawn today. Stable from renal standpoint of view. July 12: Today's labs pending. Medication list reviewed. Continue per current management and consultants. July 11: Labs reviewed. Renal parameters stable. July 10: Labs reviewed. Renal parameters electrolytes stable. Continue per consultants. July 09: Labs reviewed. Renal parameters and electrolytes stable. Continue per ID and pulmonary. Subjective ROS Limited/Unobtainable: Yes Objective Objective Last 24 Hour Vital Signs Date Time Temp Pulse Resp B/P (MAP) Pulse Ox O2 Delivery O2 Flow Rate FiO2 08/03/20 10:00 97 26 89/54 (66) 97 08/03/20 09:15 98 25 90/48 (62) 08/03/20 09:00 22 89/50 Mechanical Ventilator 100 08/03/20 09:00 22 89/50 Mechanical Ventilator 100 08/03/20 09:00 97 26 93/54 (67) 08/03/20 08:58 22 98/56 Mechanical Ventilator 100 08/03/20 08:45 101 23 89/56 (67) 08/03/20 08:31 105 90/59 08/03/20 08:30 105 22 90/59 (69) 100 08/03/20 08:15 106 22 95/59 (71) 100 08/03/20 08:00 99 08/03/20 08:00 Mechanical Ventilator 08/03/20 08:00 99.1 107 22 88/57 (67) 98 08/03/20 08:00 22 95/59 Mechanical Ventilator 100 08/03/20 08:00 22 96/59 Mechanical Ventilator 100 08/03/20 08:00 100 08/03/20 07:45 117 22 100 08/03/20 07:45 112 22 96/58 (71) 98 08/03/20 07:30 124 23 123/66 (85) 61 08/03/20 07:15 120 24 124/71 (88) 70 08/03/20 07:00 22 98/66 Mechanical Ventilator 90 08/03/20 07:00 22 98/66 Mechanical Ventilator 90 08/03/20 07:00 111 21 98/66 (77) 96 08/03/20 06:00 21 101/57 Mechanical Ventilator 90 08/03/20 06:00 23 101/57 Mechanical Ventilator 45 08/03/20 06:00 99 22 103/59 (74) 98 08/03/20 05:30 112 22 107/62 (77) 98 08/03/20 05:17 109 24 90 08/03/20 05:00 107 22 110/64 (79) 99 08/03/20 05:00 23 105/59 Mechanical Ventilator 90 08/03/20 05:00 21 105/59 Mechanical Ventilator 45 08/03/20 04:30 99 22 148/84 (105) 99 08/03/20 04:00 Mechanical Ventilator 08/03/20 04:00 22 139/80 Mechanical Ventilator 90 08/03/20 04:00 23 139/80 Mechanical Ventilator 90 08/03/20 04:00 98.6 103 22 145/77 (99) 97 08/03/20 04:00 87 08/03/20 04:00 90 08/03/20 03:30 87 24 140/76 (97) 98 08/03/20 03:18 85 26 90 08/03/20 03:15 86 24 135/80 (98) 98 08/03/20 03:00 21 136/80 Mechanical Ventilator 90 08/03/20 03:00 24 135/80 Mechanical Ventilator 90 08/03/20 03:00 85 25 135/78 (97) 98 08/03/20 02:45 86 25 139/81 (100) 98 08/03/20 02:30 85 24 138/82 (100) 98 08/03/20 02:15 86 24 138/76 (96) 98 08/03/20 02:00 22 115/60 Mechanical Ventilator 45 08/03/20 02:00 21 138/76 Mechanical Ventilator 45 08/03/20 02:00 86 24 133/83 (100) 98 08/03/20 01:45 87 23 134/76 (95) 99 08/03/20 01:30 87 22 137/79 (98) 99 08/03/20 01:15 88 22 135/78 (97) 99 08/03/20 01:00 85 22 134/75 (94) 100 08/03/20 01:00 21 138/75 Mechanical Ventilator 45 08/03/20 01:00 21 135/78 Mechanical Ventilator 45 08/03/20 00:57 21 120/78 100 08/03/20 00:30 87 22 129/81 (97) 100 08/03/20 00:16 131/79 08/03/20 00:00 99.0 91 22 140/84 (102) 100 08/03/20 00:00 100 08/03/20 00:00 90 08/03/20 00:00 21 131/79 Non-Rebreather 45 08/03/20 00:00 22 131/79 Mechanical Ventilator 45 08/03/20 00:00 Mechanical Ventilator 08/02/20 23:30 112 27 142/76 (98) 90 08/02/20 23:21 109 26 90 08/02/20 23:00 97 25 91/53 (66) 96 08/02/20 23:00 22 122/73 Mechanical Ventilator 45 08/02/20 23:00 22 103/61 Mechanical Ventilator 45 08/02/20 22:30 98 25 95/55 (68) 96 08/02/20 22:15 100 25 103/61 (75) 96 08/02/20 22:00 25 103/61 Mechanical Ventilator 45 08/02/20 22:00 21 122/73 Mechanical Ventilator 45 08/02/20 22:00 99 23 100/59 (73) 96 08/02/20 21:45 100 25 98/56 (70) 97 08/02/20 21:30 98 24 95/59 (71) 97 08/02/20 21:16 92 25 90 08/02/20 21:15 99.0 99 24 94/58 (70) 97 08/02/20 21:00 99 25 102/54 (70) 97 08/02/20 21:00 25 94/58 Mechanical Ventilator 45 08/02/20 21:00 25 94/58 Mechanical Ventilator 45 08/02/20 20:51 100 90/58 08/02/20 20:30 102 22 105/60 (75) 98 08/02/20 20:15 100 22 99/57 (71) 97 08/02/20 20:00 99.8 115 27 93/65 (74) 88 08/02/20 20:00 101 08/02/20 20:00 90 08/02/20 20:00 22 99/57 Mechanical Ventilator 90 08/02/20 20:00 21 99/57 Mechanical Ventilator 90 08/02/20 20:00 Mechanical Ventilator 08/02/20 19:29 99.8 08/02/20 19:20 93 26 90 08/02/20 19:00 100.8 87 25 106/64 (78) 96 08/02/20 19:00 22 106/64 Mechanical Ventilator 90 08/02/20 19:00 22 106/64 Mechanical Ventilator 90 08/02/20 18:50 27 104/57 90 08/02/20 18:45 87 24 104/57 (73) 96 08/02/20 18:30 87 24 103/61 (75) 96 08/02/20 18:15 86 24 106/63 (77) 97 08/02/20 18:00 86 24 106/59 (75) 96 08/02/20 18:00 22 106/59 Mechanical Ventilator 90 08/02/20 18:00 22 106/59 Mechanical Ventilator 90 08/02/20 17:45 84 22 117/65 (82) 98 08/02/20 17:30 85 22 115/60 (78) 98 08/02/20 17:15 99.4 84 22 111/61 (78) 98 08/02/20 17:00 82 22 108/61 (77) 99 08/02/20 17:00 22 108/61 Mechanical Ventilator 90 08/02/20 17:00 22 108/61 Mechanical Ventilator 90 08/02/20 16:45 83 22 103/58 (73) 99 08/02/20 16:30 82 22 104/54 (71) 98 08/02/20 16:20 81 22 102/52 (69) 97 08/02/20 16:00 22 102/52 Mechanical Ventilator 90 08/02/20 16:00 22 102/57 Mechanical Ventilator 90 08/02/20 16:00 84 08/02/20 16:00 Mechanical Ventilator 08/02/20 16:00 99.2 22 102/52 (69) 98 08/02/20 16:00 90 08/02/20 15:45 83 21 112/66 (81) 97 08/02/20 15:37 86 23 90 08/02/20 15:30 86 22 109/62 (78) 99 08/02/20 15:15 81 22 111/65 (80) 99 08/02/20 15:00 22 117/63 Mechanical Ventilator 90 08/02/20 15:00 22 117/63 Mechanical Ventilator 90 08/02/20 15:00 82 24 117/63 (81) 99 08/02/20 14:45 81 23 116/69 (85) 99 08/02/20 14:30 82 23 115/67 (83) 99 08/02/20 14:15 84 24 113/64 (80) 98 08/02/20 14:00 22 114/64 Mechanical Ventilator 90 08/02/20 14:00 22 114/64 Mechanical Ventilator 90 08/02/20 14:00 22 114/64 Mechanical Ventilator 90 08/02/20 14:00 22 114/64 Mechanical Ventilator 90 08/02/20 14:00 22 114/64 Mechanical Ventilator 90 08/02/20 14:00 22 114/64 Mechanical Ventilator 90 08/02/20 14:00 22 114/64 Mechanical Ventilator 90 08/02/20 14:00 22 114/64 Mechanical Ventilator 90 08/02/20 14:00 22 114/64 Mechanical Ventilator 90 08/02/20 14:00 22 114/64 Mechanical Ventilator 90 08/02/20 14:00 22 114/64 Mechanical Ventilator 90 08/02/20 14:00 22 114/64 Mechanical Ventilator 90 08/02/20 14:00 22 114/64 Mechanical Ventilator 90 08/02/20 14:00 22 114/64 Mechanical Ventilator 90 08/02/20 14:00 82 23 114/64 (81) 99 08/02/20 13:45 81 23 112/65 (81) 98 08/02/20 13:30 82 23 115/64 (81) 98 08/02/20 13:15 82 23 115/62 (79) 98 08/02/20 13:00 83 23 112/65 (81) 98 08/02/20 13:00 22 112/65 Mechanical Ventilator 90 08/02/20 13:00 22 112/65 Mechanical Ventilator 90 08/02/20 13:00 22 112/65 Mechanical Ventilator 90 08/02/20 13:00 22 112/65 Mechanical Ventilator 90 08/02/20 13:00 22 112/65 Mechanical Ventilator 90 08/02/20 13:00 22 112/65 Mechanical Ventilator 90 08/02/20 13:00 22 112/65 Mechanical Ventilator 90 08/02/20 13:00 22 112/65 Mechanical Ventilator 90 08/02/20 13:00 22 112/65 Mechanical Ventilator 90 08/02/20 13:00 22 112/65 Mechanical Ventilator 100 08/02/20 13:00 22 112/65 Mechanical Ventilator 100 08/02/20 13:00 22 112/65 Mechanical Ventilator 90 08/02/20 13:00 22 112/65 Mechanical Ventilator 100 08/02/20 13:00 22 112/65 Mechanical Ventilator 100 08/02/20 12:45 84 22 118/63 (81) 98 08/02/20 12:30 87 22 116/63 (80) 98 08/02/20 12:15 98.1 87 22 114/66 (82) 98 08/02/20 12:11 22 107/57 Mechanical Ventilator 90 08/02/20 12:00 98.3 81 23 97 08/02/20 12:00 Mechanical Ventilator 08/02/20 12:00 78 08/02/20 12:00 98.3 81 23 107/57 (74) 97 08/02/20 12:00 22 107/57 Mechanical Ventilator 90 08/02/20 12:00 22 107/57 Mechanical Ventilator 90 08/02/20 12:00 22 107/57 Mechanical Ventilator 90 08/02/20 12:00 22 107/57 Mechanical Ventilator 90 08/02/20 12:00 22 107/57 Mechanical Ventilator 90 08/02/20 12:00 22 107/57 Mechanical Ventilator 90 08/02/20 12:00 22 107/57 Mechanical Ventilator 90 08/02/20 12:00 22 107/57 Mechanical Ventilator 90 08/02/20 12:00 22 107/57 Mechanical Ventilator 90 08/02/20 12:00 22 107/57 Mechanical Ventilator 90 08/02/20 12:00 22 107/57 Mechanical Ventilator 90 08/02/20 12:00 22 107/57 Mechanical Ventilator 90 08/02/20 12:00 22 107/57 Mechanical Ventilator 90 08/02/20 12:00 22 107/57 Mechanical Ventilator 90 08/02/20 12:00 90 08/02/20 11:45 83 23 88/45 (59) 97 08/02/20 11:30 80 22 99/54 (69) 98 08/02/20 11:15 80 22 98/55 (69) 97 08/02/20 11:13 80 22 90 08/02/20 11:00 22 94/53 Mechanical Ventilator 90 08/02/20 11:00 22 94/53 Mechanical Ventilator 90 08/02/20 11:00 22 94/53 Mechanical Ventilator 90 08/02/20 11:00 22 94/53 Mechanical Ventilator 90 08/02/20 11:00 22 94/53 Mechanical Ventilator 90 08/02/20 11:00 22 94/53 Mechanical Ventilator 90 08/02/20 11:00 22 94/53 Mechanical Ventilator 90 08/02/20 11:00 22 94/53 Mechanical Ventilator 90 08/02/20 11:00 22 94/53 Mechanical Ventilator 90 08/02/20 11:00 22 94/53 Mechanical Ventilator 90 08/02/20 11:00 22 94/53 Mechanical Ventilator 90 08/02/20 11:00 22 94/53 Mechanical Ventilator 90 08/02/20 11:00 22 94/53 Mechanical Ventilator 90 08/02/20 11:00 22 94/53 Mechanical Ventilator 90 08/02/20 11:00 81 22 94/53 (67) 98 08/02/20 10:45 81 22 97/52 (67) 97 08/02/20 10:30 80 23 100/55 (70) 97 Intake and Output 08/02/20 08/03/20 19:00 07:00 Intake Total 1621.00 ml 1125 ml Output Total 1375 ml 1200 ml Balance 246.00 ml -75 ml Free Water 30 ml IV Total 1591.00 ml 525 ml Blood Product 600 ml Output Urine Total 1375 ml 1200 ml Current Medications Medications (Trade) Dose Ordered Sig/Marian Route PRN Reason Start Time Stop Time Status Last Admin Dose Admin Acetaminophen (Tylenol) 650 mg Q4H PRN RECTAL Temp >100.5 07/18/20 18:30 3/18/21 18:29 08/01/20 16:50 Acetaminophen (Tylenol) 650 mg Q6H PRN ORAL For Pain 07/07/20 15:45 08/06/20 15:44 08/02/20 18:59 Acetaminophen (Tylenol) 650 mg Q6H PRN ORAL FEVER 07/07/20 16:15 08/06/20 16:14 07/30/20 12:36 Benzonatate (Tessalon Perles) 100 mg TIDPRN PRN ORAL For Cough 07/18/20 18:30 08/17/20 18:29 Cefepime HCl 2 gm/ Dextrose 55 ml @ 110 mls/hr Q12HR IVPB 07/22/20 13:00 08/06/20 12:59 08/03/20 08:35 Chlorhexidine Gluconate (Rafaela-Hex 2%) 1 applic DAILY@2000 TOPIC 08/01/20 20:00 10/30/20 19:59 08/02/20 20:11 Dextrose (Dextrose 50%) 25 ml Q30M PRN IV Hypoglycemia 07/07/20 15:45 10/05/20 15:44 Dextrose (Dextrose 50%) 50 ml Q30M PRN IV Hypoglycemia 07/07/20 15:45 10/05/20 15:44 Docusate Sodium (Colace) 100 mg TID NG 07/29/20 13:00 08/25/20 17:59 08/03/20 08:30 Enoxaparin Sodium (Lovenox) 70 mg EVERY 12 HOURS SUBQ 07/25/20 21:00 10/23/20 20:59 08/01/20 21:23 Famotidine (Pepcid I.v.) 20 mg Q12HR IVP 07/20/20 09:00 08/19/20 08:59 08/03/20 08:30 Fentanyl Citrate 250 ml @ 1 mls/hr Q24H PRN IV SEDATION 08/02/20 16:00 08/04/20 15:59 08/03/20 08:58 Insulin Aspart (NovoLOG) Q6HR SUBQ 07/26/20 12:00 10/24/20 11:59 08/02/20 18:00 Insulin Detemir (Levemir) 30 units Q12HR SUBQ 08/01/20 21:00 10/24/20 10:29 08/03/20 08:55 Methylprednisolone Sodium Succinate (Solu-MEDROL) 20 mg EVERY 6 HOURS IVP 07/22/20 12:00 10/19/20 08:59 08/03/20 05:48 Metoprolol Tartrate (Lopressor) 25 mg EVERY 12 HOURS NG 07/26/20 21:00 10/24/20 20:59 07/31/20 09:02 Midazolam HCl 200 ml @ 0 mls/hr Q24H PRN IV Agitation 07/29/20 22:45 08/05/20 22:44 08/03/20 08:00 Norepinephrine Bitartrate 250 ml @ 0 mls/hr Q24H IV 08/01/20 00:45 08/04/20 00:33 08/03/20 00:16 Sorbitol (sorbitoL) 45 ml Q12HR PRN ORAL Constipation 07/30/20 09:15 08/29/20 09:14 Laboratory Tests 08/03/20 04:20: White Blood Count 18.2#H, Red Blood Count 3.20L, Hemoglobin 9.0L, Hematocrit 27.6L, Mean Corpuscular Volume 86, Mean Corpuscular Hemoglobin 28.2, Mean Corpuscular Hemoglobin Concent 32.7, Red Cell Distribution Width 14.7, Platelet Count 174, Mean Platelet Volume 9.2, Neutrophils (%) (Auto) , Lymphocytes (%) (Auto) , Monocytes (%) (Auto) , Eosinophils (%) (Auto) , Basophils (%) (Auto) , Differential Total Cells Counted 100, Neutrophils % (Manual) 93H, Lymphocytes % (Manual) 5L, Monocytes % (Manual) 2, Eosinophils % (Manual) 0, Basophils % (Manual) 0, Band Neutrophils 0, Platelet Estimate Adequate, Platelet Morphology Normal, Hypochromasia 1+, Anisocytosis 1+, Prothrombin Time 11.4, Prothromb Time International Ratio 1.0, Activated Partial Thromboplast Time 29, Sodium Level 140, Potassium Level 4.4, Chloride Level 103, Carbon Dioxide Level 30, Anion Gap 7, Blood Urea Nitrogen 22H, Creatinine 0.7, Estimat Glomerular Filtration Rate > 60, Glucose Level 123#H, Calcium Level 8.4L Height (Feet): 5 Height (Inches): 3.00 Weight (Pounds): 162 General Appearance: no apparent distress EENT: other - Intubated on ventilator Cardiovascular: tachycardia Respiratory/Chest: decreased breath sounds Abdomen: distended Objective No change Anurag Bridges MD Aug 03, 2020 10:28
--- NOTE | 2020-08-03 11:14 | NUR ---
0730: Received report from previous RN. Pt remains intubated and sedated. Pt currently with O2 in 60's. Orally suctioned pt and removed blood and clots from oral cavity. O2 saturations did not improve. In line suction done with no improvement. Respiratory called to bedside. 0800: FiO2 was increased to 100% due to desaturation. 1000: Dr. Segovia at bedside. Per MD muñoz to discontinue isolation precautions. 1030: Levophed restarted due to low BP.
--- NOTE | 2020-08-03 12:03 | Pulmonology Progress Note ---
Subjective ROS Limited/Unobtainable: Yes Interval Events: S/p intubation Constitutional: Denies: fever HEENT: Repors: no symptoms Respiratory: Reports: shortness of breath Gastrointestinal/Abdominal: Reports: no symptoms Psychiatric: Reports: no symptoms Skin: Reports: no symptoms Musculoskeletal: Reports: no symptoms Allergies: Coded Allergies: No Known Allergies (Unverified , 07/07/20) Objective Last 24 Hour Vital Signs Date Time Temp Pulse Resp B/P (MAP) Pulse Ox O2 Delivery O2 Flow Rate FiO2 08/03/20 11:20 86 23 80 08/03/20 11:00 87 22 95/57 (70) 100 08/03/20 11:00 22 95/57 Mechanical Ventilator 100 08/03/20 11:00 22 95/57 Mechanical Ventilator 100 08/03/20 11:00 86 23 95/57 (70) 100 08/03/20 10:45 85 25 102/62 (75) 100 08/03/20 10:30 87/53 08/03/20 10:30 94 25 87/53 (64) 100 08/03/20 10:15 96 26 85/54 (64) 08/03/20 10:00 97 26 89/54 (66) 97 08/03/20 10:00 22 89/54 Mechanical Ventilator 100 08/03/20 10:00 22 89/54 Mechanical Ventilator 100 08/03/20 09:15 98 25 90/48 (62) 08/03/20 09:00 22 89/50 Mechanical Ventilator 100 08/03/20 09:00 22 89/50 Mechanical Ventilator 100 08/03/20 09:00 97 26 93/54 (67) 08/03/20 08:58 22 98/56 Mechanical Ventilator 100 08/03/20 08:45 101 23 89/56 (67) 08/03/20 08:31 105 90/59 08/03/20 08:30 105 22 90/59 (69) 100 08/03/20 08:15 106 22 95/59 (71) 100 08/03/20 08:00 99 08/03/20 08:00 Mechanical Ventilator 08/03/20 08:00 99.1 107 22 88/57 (67) 98 08/03/20 08:00 22 95/59 Mechanical Ventilator 100 08/03/20 08:00 22 96/59 Mechanical Ventilator 100 08/03/20 08:00 100 08/03/20 07:45 117 22 100 08/03/20 07:45 112 22 96/58 (71) 98 08/03/20 07:30 124 23 123/66 (85) 61 08/03/20 07:15 120 24 124/71 (88) 70 08/03/20 07:00 22 98/66 Mechanical Ventilator 90 08/03/20 07:00 22 98/66 Mechanical Ventilator 90 08/03/20 07:00 111 21 98/66 (77) 96 08/03/20 06:00 21 101/57 Mechanical Ventilator 90 08/03/20 06:00 23 101/57 Mechanical Ventilator 45 08/03/20 06:00 99 22 103/59 (74) 98 08/03/20 05:30 112 22 107/62 (77) 98 08/03/20 05:17 109 24 90 08/03/20 05:00 107 22 110/64 (79) 99 08/03/20 05:00 23 105/59 Mechanical Ventilator 90 08/03/20 05:00 21 105/59 Mechanical Ventilator 45 08/03/20 04:30 99 22 148/84 (105) 99 08/03/20 04:00 Mechanical Ventilator 08/03/20 04:00 22 139/80 Mechanical Ventilator 90 08/03/20 04:00 23 139/80 Mechanical Ventilator 90 08/03/20 04:00 98.6 103 22 145/77 (99) 97 08/03/20 04:00 87 08/03/20 04:00 90 08/03/20 03:30 87 24 140/76 (97) 98 08/03/20 03:18 85 26 90 08/03/20 03:15 86 24 135/80 (98) 98 08/03/20 03:00 21 136/80 Mechanical Ventilator 90 08/03/20 03:00 24 135/80 Mechanical Ventilator 90 08/03/20 03:00 85 25 135/78 (97) 98 08/03/20 02:45 86 25 139/81 (100) 98 08/03/20 02:30 85 24 138/82 (100) 98 08/03/20 02:15 86 24 138/76 (96) 98 08/03/20 02:00 22 115/60 Mechanical Ventilator 45 08/03/20 02:00 21 138/76 Mechanical Ventilator 45 08/03/20 02:00 86 24 133/83 (100) 98 08/03/20 01:45 87 23 134/76 (95) 99 08/03/20 01:30 87 22 137/79 (98) 99 08/03/20 01:15 88 22 135/78 (97) 99 08/03/20 01:00 85 22 134/75 (94) 100 08/03/20 01:00 21 138/75 Mechanical Ventilator 45 08/03/20 01:00 21 135/78 Mechanical Ventilator 45 08/03/20 00:57 21 120/78 100 08/03/20 00:30 87 22 129/81 (97) 100 08/03/20 00:16 131/79 08/03/20 00:00 99.0 91 22 140/84 (102) 100 08/03/20 00:00 100 08/03/20 00:00 90 08/03/20 00:00 21 131/79 Non-Rebreather 45 08/03/20 00:00 22 131/79 Mechanical Ventilator 45 08/03/20 00:00 Mechanical Ventilator 08/02/20 23:30 112 27 142/76 (98) 90 08/02/20 23:21 109 26 90 08/02/20 23:00 97 25 91/53 (66) 96 08/02/20 23:00 22 122/73 Mechanical Ventilator 45 08/02/20 23:00 22 103/61 Mechanical Ventilator 45 08/02/20 22:30 98 25 95/55 (68) 96 08/02/20 22:15 100 25 103/61 (75) 96 08/02/20 22:00 25 103/61 Mechanical Ventilator 45 08/02/20 22:00 21 122/73 Mechanical Ventilator 45 08/02/20 22:00 99 23 100/59 (73) 96 08/02/20 21:45 100 25 98/56 (70) 97 08/02/20 21:30 98 24 95/59 (71) 97 08/02/20 21:16 92 25 90 08/02/20 21:15 99.0 99 24 94/58 (70) 97 08/02/20 21:00 99 25 102/54 (70) 97 08/02/20 21:00 25 94/58 Mechanical Ventilator 45 08/02/20 21:00 25 94/58 Mechanical Ventilator 45 08/02/20 20:51 100 90/58 08/02/20 20:30 102 22 105/60 (75) 98 08/02/20 20:15 100 22 99/57 (71) 97 08/02/20 20:00 99.8 115 27 93/65 (74) 88 08/02/20 20:00 101 08/02/20 20:00 90 08/02/20 20:00 22 99/57 Mechanical Ventilator 90 08/02/20 20:00 21 99/57 Mechanical Ventilator 90 08/02/20 20:00 Mechanical Ventilator 08/02/20 19:29 99.8 08/02/20 19:20 93 26 90 08/02/20 19:00 100.8 87 25 106/64 (78) 96 08/02/20 19:00 22 106/64 Mechanical Ventilator 90 08/02/20 19:00 22 106/64 Mechanical Ventilator 90 08/02/20 18:50 27 104/57 90 08/02/20 18:45 87 24 104/57 (73) 96 08/02/20 18:30 87 24 103/61 (75) 96 08/02/20 18:15 86 24 106/63 (77) 97 08/02/20 18:00 86 24 106/59 (75) 96 08/02/20 18:00 22 106/59 Mechanical Ventilator 90 08/02/20 18:00 22 106/59 Mechanical Ventilator 90 08/02/20 17:45 84 22 117/65 (82) 98 08/02/20 17:30 85 22 115/60 (78) 98 08/02/20 17:15 99.4 84 22 111/61 (78) 98 08/02/20 17:00 82 22 108/61 (77) 99 08/02/20 17:00 22 108/61 Mechanical Ventilator 90 08/02/20 17:00 22 108/61 Mechanical Ventilator 90 08/02/20 16:45 83 22 103/58 (73) 99 08/02/20 16:30 82 22 104/54 (71) 98 08/02/20 16:20 81 22 102/52 (69) 97 08/02/20 16:00 22 102/52 Mechanical Ventilator 90 08/02/20 16:00 22 102/57 Mechanical Ventilator 90 08/02/20 16:00 84 08/02/20 16:00 Mechanical Ventilator 08/02/20 16:00 99.2 22 102/52 (69) 98 08/02/20 16:00 90 08/02/20 15:45 83 21 112/66 (81) 97 08/02/20 15:37 86 23 90 08/02/20 15:30 86 22 109/62 (78) 99 08/02/20 15:15 81 22 111/65 (80) 99 08/02/20 15:00 22 117/63 Mechanical Ventilator 90 08/02/20 15:00 22 117/63 Mechanical Ventilator 90 08/02/20 15:00 82 24 117/63 (81) 99 08/02/20 14:45 81 23 116/69 (85) 99 08/02/20 14:30 82 23 115/67 (83) 99 08/02/20 14:15 84 24 113/64 (80) 98 08/02/20 14:00 22 114/64 Mechanical Ventilator 90 08/02/20 14:00 22 114/64 Mechanical Ventilator 90 08/02/20 14:00 22 114/64 Mechanical Ventilator 90 08/02/20 14:00 22 114/64 Mechanical Ventilator 90 08/02/20 14:00 22 114/64 Mechanical Ventilator 90 08/02/20 14:00 22 114/64 Mechanical Ventilator 90 08/02/20 14:00 22 114/64 Mechanical Ventilator 90 08/02/20 14:00 22 114/64 Mechanical Ventilator 90 08/02/20 14:00 22 114/64 Mechanical Ventilator 90 08/02/20 14:00 22 114/64 Mechanical Ventilator 90 08/02/20 14:00 22 114/64 Mechanical Ventilator 90 08/02/20 14:00 22 114/64 Mechanical Ventilator 90 08/02/20 14:00 22 114/64 Mechanical Ventilator 90 08/02/20 14:00 22 114/64 Mechanical Ventilator 90 08/02/20 14:00 82 23 114/64 (81) 99 08/02/20 13:45 81 23 112/65 (81) 98 08/02/20 13:30 82 23 115/64 (81) 98 08/02/20 13:15 82 23 115/62 (79) 98 08/02/20 13:00 83 23 112/65 (81) 98 08/02/20 13:00 22 112/65 Mechanical Ventilator 90 08/02/20 13:00 22 112/65 Mechanical Ventilator 90 08/02/20 13:00 22 112/65 Mechanical Ventilator 90 08/02/20 13:00 22 112/65 Mechanical Ventilator 90 08/02/20 13:00 22 112/65 Mechanical Ventilator 90 08/02/20 13:00 22 112/65 Mechanical Ventilator 90 08/02/20 13:00 22 112/65 Mechanical Ventilator 90 08/02/20 13:00 22 112/65 Mechanical Ventilator 90 08/02/20 13:00 22 112/65 Mechanical Ventilator 90 08/02/20 13:00 22 112/65 Mechanical Ventilator 100 08/02/20 13:00 22 112/65 Mechanical Ventilator 100 08/02/20 13:00 22 112/65 Mechanical Ventilator 90 08/02/20 13:00 22 112/65 Mechanical Ventilator 100 08/02/20 13:00 22 112/65 Mechanical Ventilator 100 08/02/20 12:45 84 22 118/63 (81) 98 08/02/20 12:30 87 22 116/63 (80) 98 08/02/20 12:15 98.1 87 22 114/66 (82) 98 08/02/20 12:11 22 107/57 Mechanical Ventilator 90 Intake and Output 08/02/20 08/03/20 19:00 07:00 Intake Total 1621.00 ml 1125 ml Output Total 1375 ml 1200 ml Balance 246.00 ml -75 ml Free Water 30 ml IV Total 1591.00 ml 525 ml Blood Product 600 ml Output Urine Total 1375 ml 1200 ml General Appearance: no acute distress HEENT: normocephalic Respiratory: decreased breath sounds Cardiovascular: normal peripheral pulses Abdomen: normal bowel sounds Laboratory Tests 08/03/20 04:20: White Blood Count 18.2#H, Red Blood Count 3.20L, Hemoglobin 9.0L, Hematocrit 27.6L, Mean Corpuscular Volume 86, Mean Corpuscular Hemoglobin 28.2, Mean Corpuscular Hemoglobin Concent 32.7, Red Cell Distribution Width 14.7, Platelet Count 174, Mean Platelet Volume 9.2, Neutrophils (%) (Auto) , Lymphocytes (%) (Auto) , Monocytes (%) (Auto) , Eosinophils (%) (Auto) , Basophils (%) (Auto) , Differential Total Cells Counted 100, Neutrophils % (Manual) 93H, Lymphocytes % (Manual) 5L, Monocytes % (Manual) 2, Eosinophils % (Manual) 0, Basophils % (Manual) 0, Band Neutrophils 0, Platelet Estimate Adequate, Platelet Morphology Normal, Hypochromasia 1+, Anisocytosis 1+, Prothrombin Time 11.4, Prothromb Time International Ratio 1.0, Activated Partial Thromboplast Time 29, Sodium Level 140, Potassium Level 4.4, Chloride Level 103, Carbon Dioxide Level 30, Anion Gap 7, Blood Urea Nitrogen 22H, Creatinine 0.7, Estimat Glomerular Filtration Rate > 60, Glucose Level 123#H, Calcium Level 8.4L Current Medications Medications (Trade) Dose Ordered Sig/Marian Route PRN Reason Start Time Stop Time Status Last Admin Dose Admin Acetaminophen (Tylenol) 650 mg Q4H PRN RECTAL Temp >100.5 07/18/20 18:30 08/17/20 18:29 08/01/20 16:50 Acetaminophen (Tylenol) 650 mg Q6H PRN ORAL For Pain 07/07/20 15:45 08/06/20 15:44 08/02/20 18:59 Acetaminophen (Tylenol) 650 mg Q6H PRN ORAL FEVER 07/07/20 16:15 08/06/20 16:14 07/30/20 12:36 Benzonatate (Tessalon Perles) 100 mg TIDPRN PRN ORAL For Cough 07/18/20 18:30 08/17/20 18:29 Cefepime HCl 2 gm/ Dextrose 55 ml @ 110 mls/hr Q12HR IVPB 07/22/20 13:00 08/06/20 12:59 08/03/20 08:35 Chlorhexidine Gluconate (Rafaela-Hex 2%) 1 applic DAILY@2000 TOPIC 08/01/20 20:00 10/30/20 19:59 08/02/20 20:11 Dextrose (Dextrose 50%) 25 ml Q30M PRN IV Hypoglycemia 07/07/20 15:45 10/05/20 15:44 Dextrose (Dextrose 50%) 50 ml Q30M PRN IV Hypoglycemia 07/07/20 15:45 10/05/20 15:44 Dextrose/Sodium Chloride 1,000 ml @ 50 mls/hr Q20H IV 08/03/20 12:00 09/02/20 11:59 Docusate Sodium (Colace) 100 mg TID NG 07/29/20 13:00 08/25/20 17:59 08/03/20 08:30 Enoxaparin Sodium (Lovenox) 70 mg EVERY 12 HOURS SUBQ 07/25/20 21:00 10/23/20 20:59 08/01/20 21:23 Famotidine (Pepcid I.v.) 20 mg Q12HR IVP 07/20/20 09:00 08/19/20 08:59 08/03/20 08:30 Fentanyl Citrate 250 ml @ 1 mls/hr Q24H PRN IV SEDATION 08/02/20 16:00 08/04/20 15:59 08/03/20 08:58 Insulin Aspart (NovoLOG) Q6HR SUBQ 07/26/20 12:00 10/24/20 11:59 08/02/20 18:00 Insulin Detemir (Levemir) 30 units Q12HR SUBQ 08/01/20 21:00 10/24/20 10:29 08/03/20 08:55 Methylprednisolone Sodium Succinate (Solu-MEDROL) 20 mg EVERY 6 HOURS IVP 07/22/20 12:00 10/19/20 08:59 08/03/20 05:48 Metoprolol Tartrate (Lopressor) 25 mg EVERY 12 HOURS NG 07/26/20 21:00 10/24/20 20:59 07/31/20 09:02 Midazolam HCl 200 ml @ 0 mls/hr Q24H PRN IV Agitation 07/29/20 22:45 08/05/20 22:44 08/03/20 08:00 Norepinephrine Bitartrate 250 ml @ 0 mls/hr Q24H IV 08/01/20 00:45 08/04/20 00:33 08/03/20 10:30 Sorbitol (sorbitoL) 45 ml Q12HR PRN ORAL Constipation 07/30/20 09:15 08/29/20 09:14 Assessment/Plan Assessment/Plan 1. COVID-19 pneumonia. - COVID-19 PCR positive (07/07) - s/p remdexsivir - s/p azithromycin - CXR (07/13) no significant change - f/u rapid COVID-19 (07/31) negative -> now off isolation 2. Hypoxemic respiratory distress - s/p decadron (07/08-07/17) - now on Solu-Medrol - intubated; on AC mode - FiO2 100 -> 80%; continue PEEP 7->8 -> 10 - episodically desaturates to 70% -attempt proning 3. Hypertension. - Required central line 08/01/20 - on Levophed 4. Diabetes mellitus. -on insulin sliding scale 5. DVT ppx - on Lovenox, full dose empirically; on hold now due to epistaxis 6. Sputum Cx shows pseudomonas and cony - continue cefepime per ID 7. Suspect bacterial infection given leukocytosis - s/p Diflucan - On Cefepime - s/p IV Vanco - s/p IV Bactrim for possible PJP 8. Pulmonary edema -Off lasix gtt Discussed with bedside RN. Having epistaxis and oral bleeding Hold Lovenox Will give FFP Transfuse prn On Levemir The care of this patient was discussed with my supervising physician Time spent for this encounter was approximately 31 minutes Milton Howard Aug 03, 2020 12:03
[2020-08-03] MEDS: Dextrose 10%/0.9% SOD CHL 1,000 ML IV SCH (12:21)
--- NOTE | 2020-08-03 13:42 | General Progress Note ---
Subjective ROS Limited/Unobtainable: No Allergies: Coded Allergies: No Known Allergies (Unverified , 07/07/20) Subjective no event over night had BM tolerating TF Objective Last 24 Hour Vital Signs Date Time Temp Pulse Resp B/P (MAP) Pulse Ox O2 Delivery O2 Flow Rate FiO2 08/03/20 13:00 85 26 101/60 (74) 100 08/03/20 12:30 86 24 101/62 (75) 100 08/03/20 12:15 85 26 96/59 (71) 80 08/03/20 12:00 98.8 86 25 90/61 (71) 08/03/20 12:00 88 26 101/62 (75) 100 08/03/20 12:00 22 90/61 Mechanical Ventilator 80 08/03/20 12:00 22 90/61 Mechanical Ventilator 80 08/03/20 12:00 86 08/03/20 12:00 80 08/03/20 12:00 Mechanical Ventilator 08/03/20 11:45 88 27 96/60 (72) 94 08/03/20 11:30 88 25 97/58 (71) 98 08/03/20 11:20 86 23 80 08/03/20 11:00 87 22 95/57 (70) 100 08/03/20 11:00 22 95/57 Mechanical Ventilator 100 08/03/20 11:00 22 95/57 Mechanical Ventilator 100 08/03/20 11:00 86 23 95/57 (70) 100 08/03/20 10:45 85 25 102/62 (75) 100 08/03/20 10:30 87/53 08/03/20 10:30 94 25 87/53 (64) 100 08/03/20 10:15 96 26 85/54 (64) 08/03/20 10:00 97 26 89/54 (66) 97 08/03/20 10:00 22 89/54 Mechanical Ventilator 100 08/03/20 10:00 22 89/54 Mechanical Ventilator 100 08/03/20 09:15 98 25 90/48 (62) 08/03/20 09:00 22 89/50 Mechanical Ventilator 100 08/03/20 09:00 22 89/50 Mechanical Ventilator 100 08/03/20 09:00 97 26 93/54 (67) 08/03/20 08:58 22 98/56 Mechanical Ventilator 100 08/03/20 08:45 101 23 89/56 (67) 08/03/20 08:31 105 90/59 08/03/20 08:30 105 22 90/59 (69) 100 08/03/20 08:15 106 22 95/59 (71) 100 08/03/20 08:00 99 08/03/20 08:00 Mechanical Ventilator 08/03/20 08:00 99.1 107 22 88/57 (67) 98 08/03/20 08:00 22 95/59 Mechanical Ventilator 100 08/03/20 08:00 22 96/59 Mechanical Ventilator 100 08/03/20 08:00 100 08/03/20 07:45 117 22 100 08/03/20 07:45 112 22 96/58 (71) 98 08/03/20 07:30 124 23 123/66 (85) 61 08/03/20 07:15 120 24 124/71 (88) 70 08/03/20 07:00 22 98/66 Mechanical Ventilator 90 08/03/20 07:00 22 98/66 Mechanical Ventilator 90 08/03/20 07:00 111 21 98/66 (77) 96 08/03/20 06:00 21 101/57 Mechanical Ventilator 90 08/03/20 06:00 23 101/57 Mechanical Ventilator 45 08/03/20 06:00 99 22 103/59 (74) 98 08/03/20 05:30 112 22 107/62 (77) 98 08/03/20 05:17 109 24 90 08/03/20 05:00 107 22 110/64 (79) 99 08/03/20 05:00 23 105/59 Mechanical Ventilator 90 08/03/20 05:00 21 105/59 Mechanical Ventilator 45 08/03/20 04:30 99 22 148/84 (105) 99 08/03/20 04:00 Mechanical Ventilator 08/03/20 04:00 22 139/80 Mechanical Ventilator 90 08/03/20 04:00 23 139/80 Mechanical Ventilator 90 08/03/20 04:00 98.6 103 22 145/77 (99) 97 08/03/20 04:00 87 08/03/20 04:00 90 08/03/20 03:30 87 24 140/76 (97) 98 08/03/20 03:18 85 26 90 08/03/20 03:15 86 24 135/80 (98) 98 08/03/20 03:00 21 136/80 Mechanical Ventilator 90 08/03/20 03:00 24 135/80 Mechanical Ventilator 90 08/03/20 03:00 85 25 135/78 (97) 98 08/03/20 02:45 86 25 139/81 (100) 98 08/03/20 02:30 85 24 138/82 (100) 98 08/03/20 02:15 86 24 138/76 (96) 98 08/03/20 02:00 22 115/60 Mechanical Ventilator 45 08/03/20 02:00 21 138/76 Mechanical Ventilator 45 08/03/20 02:00 86 24 133/83 (100) 98 08/03/20 01:45 87 23 134/76 (95) 99 08/03/20 01:30 87 22 137/79 (98) 99 08/03/20 01:15 88 22 135/78 (97) 99 08/03/20 01:00 85 22 134/75 (94) 100 08/03/20 01:00 21 138/75 Mechanical Ventilator 45 08/03/20 01:00 21 135/78 Mechanical Ventilator 45 08/03/20 00:57 21 120/78 100 08/03/20 00:30 87 22 129/81 (97) 100 08/03/20 00:16 131/79 08/03/20 00:00 99.0 91 22 140/84 (102) 100 08/03/20 00:00 100 08/03/20 00:00 90 08/03/20 00:00 21 131/79 Non-Rebreather 45 08/03/20 00:00 22 131/79 Mechanical Ventilator 45 08/03/20 00:00 Mechanical Ventilator 08/02/20 23:30 112 27 142/76 (98) 90 08/02/20 23:21 109 26 90 08/02/20 23:00 97 25 91/53 (66) 96 08/02/20 23:00 22 122/73 Mechanical Ventilator 45 08/02/20 23:00 22 103/61 Mechanical Ventilator 45 08/02/20 22:30 98 25 95/55 (68) 96 08/02/20 22:15 100 25 103/61 (75) 96 08/02/20 22:00 25 103/61 Mechanical Ventilator 45 08/02/20 22:00 21 122/73 Mechanical Ventilator 45 08/02/20 22:00 99 23 100/59 (73) 96 08/02/20 21:45 100 25 98/56 (70) 97 08/02/20 21:30 98 24 95/59 (71) 97 08/02/20 21:16 92 25 90 08/02/20 21:15 99.0 99 24 94/58 (70) 97 08/02/20 21:00 99 25 102/54 (70) 97 08/02/20 21:00 25 94/58 Mechanical Ventilator 45 08/02/20 21:00 25 94/58 Mechanical Ventilator 45 08/02/20 20:51 100 90/58 08/02/20 20:30 102 22 105/60 (75) 98 08/02/20 20:15 100 22 99/57 (71) 97 08/02/20 20:00 99.8 115 27 93/65 (74) 88 08/02/20 20:00 101 08/02/20 20:00 90 08/02/20 20:00 22 99/57 Mechanical Ventilator 90 08/02/20 20:00 21 99/57 Mechanical Ventilator 90 08/02/20 20:00 Mechanical Ventilator 08/02/20 19:29 99.8 08/02/20 19:20 93 26 90 08/02/20 19:00 100.8 87 25 106/64 (78) 96 08/02/20 19:00 22 106/64 Mechanical Ventilator 90 08/02/20 19:00 22 106/64 Mechanical Ventilator 90 08/02/20 18:50 27 104/57 90 08/02/20 18:45 87 24 104/57 (73) 96 08/02/20 18:30 87 24 103/61 (75) 96 08/02/20 18:15 86 24 106/63 (77) 97 08/02/20 18:00 86 24 106/59 (75) 96 08/02/20 18:00 22 106/59 Mechanical Ventilator 90 08/02/20 18:00 22 106/59 Mechanical Ventilator 90 08/02/20 17:45 84 22 117/65 (82) 98 08/02/20 17:30 85 22 115/60 (78) 98 08/02/20 17:15 99.4 84 22 111/61 (78) 98 3/3/21 17:00 82 22 108/61 (77) 99 08/02/20 17:00 22 108/61 Mechanical Ventilator 90 08/02/20 17:00 22 108/61 Mechanical Ventilator 90 08/02/20 16:45 83 22 103/58 (73) 99 08/02/20 16:30 82 22 104/54 (71) 98 08/02/20 16:20 81 22 102/52 (69) 97 08/02/20 16:00 22 102/52 Mechanical Ventilator 90 08/02/20 16:00 22 102/57 Mechanical Ventilator 90 08/02/20 16:00 84 08/02/20 16:00 Mechanical Ventilator 08/02/20 16:00 99.2 22 102/52 (69) 98 08/02/20 16:00 90 08/02/20 15:45 83 21 112/66 (81) 97 08/02/20 15:37 86 23 90 08/02/20 15:30 86 22 109/62 (78) 99 08/02/20 15:15 81 22 111/65 (80) 99 08/02/20 15:00 22 117/63 Mechanical Ventilator 90 08/02/20 15:00 22 117/63 Mechanical Ventilator 90 08/02/20 15:00 82 24 117/63 (81) 99 08/02/20 14:45 81 23 116/69 (85) 99 08/02/20 14:30 82 23 115/67 (83) 99 08/02/20 14:15 84 24 113/64 (80) 98 08/02/20 14:00 22 114/64 Mechanical Ventilator 90 08/02/20 14:00 22 114/64 Mechanical Ventilator 90 08/02/20 14:00 22 114/64 Mechanical Ventilator 90 08/02/20 14:00 22 114/64 Mechanical Ventilator 90 08/02/20 14:00 22 114/64 Mechanical Ventilator 90 08/02/20 14:00 22 114/64 Mechanical Ventilator 90 08/02/20 14:00 22 114/64 Mechanical Ventilator 90 08/02/20 14:00 22 114/64 Mechanical Ventilator 90 08/02/20 14:00 22 114/64 Mechanical Ventilator 90 08/02/20 14:00 22 114/64 Mechanical Ventilator 90 08/02/20 14:00 22 114/64 Mechanical Ventilator 90 08/02/20 14:00 22 114/64 Mechanical Ventilator 90 08/02/20 14:00 22 114/64 Mechanical Ventilator 90 08/02/20 14:00 22 114/64 Mechanical Ventilator 90 08/02/20 14:00 82 23 114/64 (81) 99 08/02/20 13:45 81 23 112/65 (81) 98 Intake and Output 08/02/20 08/03/20 19:00 07:00 Intake Total 1621.00 ml 1125 ml Output Total 1375 ml 1200 ml Balance 246.00 ml -75 ml Free Water 30 ml IV Total 1591.00 ml 525 ml Blood Product 600 ml Output Urine Total 1375 ml 1200 ml Laboratory Tests 08/03/20 04:20: White Blood Count 18.2#H, Red Blood Count 3.20L, Hemoglobin 9.0L, Hematocrit 27.6L, Mean Corpuscular Volume 86, Mean Corpuscular Hemoglobin 28.2, Mean Corpu scular Hemoglobin Concent 32.7, Red Cell Distribution Width 14.7, Platelet Count 174, Mean Platelet Volume 9.2, Neutrophils (%) (Auto) , Lymphocytes (%) (Auto) , Monocytes (%) (Auto) , Eosinophils (%) (Auto) , Basophils (%) (Auto) , Differential Total Cells Counted 100, Neutrophils % (Manual) 93H, Lymphocytes % (Manual) 5L, Monocytes % (Manual) 2, Eosinophils % (Manual) 0, Basophils % (Manual) 0, Band Neutrophils 0, Platelet Estimate Adequate, Platelet Morphology Normal, Hypochromasia 1+, Anisocytosis 1+, Prothrombin Time 11.4, Prothromb Time International Ratio 1.0, Activated Partial Thromboplast Time 29, Sodium Level 140, Potassium Level 4.4, Chloride Level 103, Carbon Dioxide Level 30, Anion Gap 7, Blood Urea Nitrogen 22H, Creatinine 0.7, Estimat Glomerular Filtration Rate > 60, Glucose Level 123#H, Calcium Level 8.4L Height (Feet): 5 Height (Inches): 3.00 Weight (Pounds): 162 General Appearance: no apparent distress EENT: normal ENT inspection Neck: supple Cardiovascular: normal rate Respiratory/Chest: decreased breath sounds Abdomen: normal bowel sounds, non tender, soft Extremities: non-tender Assessment/Plan Problem List: (1) Dysphagia ICD Codes: R13.10 - Dysphagia, unspecified SNOMED: 04654717, 478943701 (2) COVID-19 virus infection ICD Codes: U07.1 - COVID-19 SNOMED: 167647856 (3) HTN (hypertension) ICD Codes: I10 - Essential (primary) hypertension SNOMED: 93446264 (4) DMII (diabetes mellitus, type 2) ICD Codes: E11.9 - Type 2 diabetes mellitus without complications SNOMED: 96496362 Qualifiers: Qualified Codes: E11.69 - Type 2 diabetes mellitus with other specified complication Status: deteriorating, fever Assessment/Plan: coverage note for dr Malcolm intubated DM control fu pulm and cardiology recs had nose and mouth bleed over night>>> improving no ENT available ER helped with nose packing yesterday s/p unit PRBC and 2 units FFP stable H&H resume NGTF will fu Steffen De Luna MD Aug 03, 2020 13:42
--- NOTE | 2020-08-03 13:56 | NUR ---
1100: Spoke with TIO Howard. Verbal order to get ABG in AM. 1350: Spoke with Dr. De Luna. Ok to restart tube feeds. Glucerna 1.2 restarted at 25. Will increase tolerated to goal of 55. Pt continues to have blood from mouth. Levophed stopped at this time. Will continue to monitor BP. Pt currently on 50% FiO2 with 99% O2 saturation. Will continue to monitor.
--- NOTE | 2020-08-03 16:34 | NUR ---
1450: TIO Howard at bedside. Verbal order to titrate PEEP from 10 to 8. Pt remains 100% O2 saturation. Will continue to monitor.
--- NOTE | 2020-08-03 18:22 | Cardiology Progress Note ---
Assessment/Plan Status: not improved Assessment/Plan 1. COVID-19 viral PNA s/p remdesivir and dexamethasone WBCs elevated 2. Respiratory failure 2/2 acute PNA Intubated 07/25/20 3. HFpEF acute on chronic diastolic HF with preserved EF EF 65%, per repeat echo post intubation Lasix for diuresis as needed 4. 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 Sinus tachycardia 2/2 fever and infection 7. Hypotension 2/2 shock, Levophed as needed Pt with fever and leukocytosis still vent dependent. Levophed per critical care team, wean off as tolerated. Repeat echo no change. Lasix as needed per pulmonlogy recs. Subjective ROS Limited/Unobtainable: Yes Subjective Hypotensive episodes requiring pressors. Intubated and on vent, in sinus rhythm. Seen in ICU Objective Last 24 Hour Vital Signs Date Time Temp Pulse Resp B/P (MAP) Pulse Ox O2 Delivery O2 Flow Rate FiO2 08/03/20 17:00 114 24 113/70 (84) 99 08/03/20 16:15 85 23 100/63 (75) 98 08/03/20 16:00 80 08/03/20 16:00 23 100/67 Mechanical Ventilator 80 08/03/20 16:00 23 100/67 Mechanical Ventilator 80 08/03/20 16:00 98.7 88 22 100/67 (78) 98 08/03/20 16:00 Mechanical Ventilator 08/03/20 16:00 85 08/03/20 15:45 87 22 105/68 (80) 94 08/03/20 15:30 85 26 99/63 (75) 97 08/03/20 15:15 87 25 97/64 (75) 100 08/03/20 15:00 88 25 98/64 (75) 99 08/03/20 15:00 25 98/56 Mechanical Ventilator 80 08/03/20 15:00 25 98/64 Mechanical Ventilator 80 08/03/20 14:50 83 26 80 08/03/20 14:45 87 26 101/65 (77) 08/03/20 14:30 88 26 93/61 (72) 08/03/20 14:15 90 26 95/60 (72) 08/03/20 14:00 91 24 95/61 (72) 98 08/03/20 14:00 22 95/61 Mechanical Ventilator 80 08/03/20 14:00 22 95/61 Mechanical Ventilator 80 08/03/20 14:00 89 25 95/61 (72) 08/03/20 13:45 83 25 99/67 (78) 100 08/03/20 13:30 85 25 103/61 (75) 08/03/20 13:15 86 25 101/60 (74) 100 08/03/20 13:00 85 26 101/60 (74) 100 08/03/20 13:00 22 101/60 Mechanical Ventilator 80 08/03/20 13:00 22 101/60 Mechanical Ventilator 80 08/03/20 12:30 86 24 101/62 (75) 100 08/03/20 12:15 85 26 96/59 (71) 80 08/03/20 12:00 98.8 86 25 90/61 (71) 08/03/20 12:00 88 26 101/62 (75) 100 08/03/20 12:00 22 90/61 Mechanical Ventilator 80 08/03/20 12:00 22 90/61 Mechanical Ventilator 80 08/03/20 12:00 86 08/03/20 12:00 80 08/03/20 12:00 Mechanical Ventilator 08/03/20 11:45 88 27 96/60 (72) 94 08/03/20 11:30 88 25 97/58 (71) 98 08/03/20 11:20 86 23 80 08/03/20 11:00 87 22 95/57 (70) 100 08/03/20 11:00 22 95/57 Mechanical Ventilator 100 08/03/20 11:00 22 95/57 Mechanical Ventilator 100 08/03/20 11:00 86 23 95/57 (70) 100 08/03/20 10:45 85 25 102/62 (75) 100 08/03/20 10:30 87/53 08/03/20 10:30 94 25 87/53 (64) 100 08/03/20 10:15 96 26 85/54 (64) 08/03/20 10:00 97 26 89/54 (66) 97 08/03/20 10:00 22 89/54 Mechanical Ventilator 100 08/03/20 10:00 22 89/54 Mechanical Ventilator 100 08/03/20 09:15 98 25 90/48 (62) 08/03/20 09:00 22 89/50 Mechanical Ventilator 100 08/03/20 09:00 22 89/50 Mechanical Ventilator 100 08/03/20 09:00 97 26 93/54 (67) 08/03/20 08:58 22 98/56 Mechanical Ventilator 100 08/03/20 08:45 101 23 89/56 (67) 08/03/20 08:31 105 90/59 08/03/20 08:30 105 22 90/59 (69) 100 08/03/20 08:15 106 22 95/59 (71) 100 08/03/20 08:00 99 08/03/20 08:00 Mechanical Ventilator 08/03/20 08:00 99.1 107 22 88/57 (67) 98 08/03/20 08:00 22 95/59 Mechanical Ventilator 100 08/03/20 08:00 22 96/59 Mechanical Ventilator 100 08/03/20 08:00 100 08/03/20 07:45 117 22 100 08/03/20 07:45 112 22 96/58 (71) 98 08/03/20 07:30 124 23 123/66 (85) 61 08/03/20 07:15 120 24 124/71 (88) 70 08/03/20 07:00 22 98/66 Mechanical Ventilator 90 08/03/20 07:00 22 98/66 Mechanical Ventilator 90 08/03/20 07:00 111 21 98/66 (77) 96 08/03/20 06:00 21 101/57 Mechanical Ventilator 90 08/03/20 06:00 23 101/57 Mechanical Ventilator 45 08/03/20 06:00 99 22 103/59 (74) 98 08/03/20 05:30 112 22 107/62 (77) 98 08/03/20 05:17 109 24 90 08/03/20 05:00 107 22 110/64 (79) 99 08/03/20 05:00 23 105/59 Mechanical Ventilator 90 08/03/20 05:00 21 105/59 Mechanical Ventilator 45 08/03/20 04:30 99 22 148/84 (105) 99 08/03/20 04:00 Mechanical Ventilator 08/03/20 04:00 22 139/80 Mechanical Ventilator 90 08/03/20 04:00 23 139/80 Mechanical Ventilator 90 08/03/20 04:00 98.6 103 22 145/77 (99) 97 08/03/20 04:00 87 3/4/21 04:00 90 08/03/20 03:30 87 24 140/76 (97) 98 08/03/20 03:18 85 26 90 08/03/20 03:15 86 24 135/80 (98) 98 08/03/20 03:00 21 136/80 Mechanical Ventilator 90 08/03/20 03:00 24 135/80 Mechanical Ventilator 90 08/03/20 03:00 85 25 135/78 (97) 98 08/03/20 02:45 86 25 139/81 (100) 98 08/03/20 02:30 85 24 138/82 (100) 98 08/03/20 02:15 86 24 138/76 (96) 98 08/03/20 02:00 22 115/60 Mechanical Ventilator 45 08/03/20 02:00 21 138/76 Mechanical Ventilator 45 08/03/20 02:00 86 24 133/83 (100) 98 08/03/20 01:45 87 23 134/76 (95) 99 08/03/20 01:30 87 22 137/79 (98) 99 08/03/20 01:15 88 22 135/78 (97) 99 08/03/20 01:00 85 22 134/75 (94) 100 08/03/20 01:00 21 138/75 Mechanical Ventilator 45 08/03/20 01:00 21 135/78 Mechanical Ventilator 45 08/03/20 00:57 21 120/78 100 08/03/20 00:30 87 22 129/81 (97) 100 08/03/20 00:16 131/79 08/03/20 00:00 99.0 91 22 140/84 (102) 100 08/03/20 00:00 100 08/03/20 00:00 90 08/03/20 00:00 21 131/79 Non-Rebreather 45 08/03/20 00:00 22 131/79 Mechanical Ventilator 45 08/03/20 00:00 Mechanical Ventilator 08/02/20 23:30 112 27 142/76 (98) 90 08/02/20 23:21 109 26 90 08/02/20 23:00 97 25 91/53 (66) 96 08/02/20 23:00 22 122/73 Mechanical Ventilator 45 08/02/20 23:00 22 103/61 Mechanical Ventilator 45 08/02/20 22:30 98 25 95/55 (68) 96 08/02/20 22:15 100 25 103/61 (75) 96 08/02/20 22:00 25 103/61 Mechanical Ventilator 45 08/02/20 22:00 21 122/73 Mechanical Ventilator 45 08/02/20 22:00 99 23 100/59 (73) 96 08/02/20 21:45 100 25 98/56 (70) 97 08/02/20 21:30 98 24 95/59 (71) 97 08/02/20 21:16 92 25 90 08/02/20 21:15 99.0 99 24 94/58 (70) 97 08/02/20 21:00 99 25 102/54 (70) 97 08/02/20 21:00 25 94/58 Mechanical Ventilator 45 08/02/20 21:00 25 94/58 Mechanical Ventilator 45 08/02/20 20:51 100 90/58 08/02/20 20:30 102 22 105/60 (75) 98 08/02/20 20:15 100 22 99/57 (71) 97 08/02/20 20:00 99.8 115 27 93/65 (74) 88 08/02/20 20:00 101 08/02/20 20:00 90 08/02/20 20:00 22 99/57 Mechanical Ventilator 90 08/02/20 20:00 21 99/57 Mechanical Ventilator 90 08/02/20 20:00 Mechanical Ventilator 08/02/20 19:29 99.8 08/02/20 19:20 93 26 90 08/02/20 19:00 100.8 87 25 106/64 (78) 96 08/02/20 19:00 22 106/64 Mechanical Ventilator 90 08/02/20 19:00 22 106/64 Mechanical Ventilator 90 08/02/20 18:50 27 104/57 90 08/02/20 18:45 87 24 104/57 (73) 96 08/02/20 18:30 87 24 103/61 (75) 96 General Appearance: no apparent distress Neck: JVD Rhythm: ST Cardiovascular: normal rate Respiratory/Chest: no respiratory distress Intake and Output 08/02/20 08/03/20 19:00 07:00 Intake Total 1621.00 ml 1125 ml Output Total 1375 ml 1200 ml Balance 246.00 ml -75 ml Free Water 30 ml IV Total 1591.00 ml 525 ml Blood Product 600 ml Output Urine Total 1375 ml 1200 ml Laboratory Tests Test 08/03/20 04:20 White Blood Count 18.2 K/UL (4.8-10.8) #H Red Blood Count 3.20 M/UL (4.20-5.40) L Hemoglobin 9.0 G/DL (12.0-16.0) L Hematocrit 27.6 % (37.0-47.0) L Mean Corpuscular Volume 86 FL (80-99) Mean Corpuscular Hemoglobin 28.2 PG (27.0-31.0) Mean Corpuscular Hemoglobin Concent 32.7 G/DL (32.0-36.0) Red Cell Distribution Width 14.7 % (11.6-14.8) Platelet Count 174 K/UL (150-450) Mean Platelet Volume 9.2 FL (6.5-10.1) Neutrophils (%) (Auto) % (45.0-75.0) Lymphocytes (%) (Auto) % (20.0-45.0) Monocytes (%) (Auto) % (1.0-10.0) Eosinophils (%) (Auto) % (0.0-3.0) Basophils (%) (Auto) % (0.0-2.0) Differential Total Cells Counted 100 Neutrophils % (Manual) 93 % (45-75) H Lymphocytes % (Manual) 5 % (20-45) L Monocytes % (Manual) 2 % (1-10) Eosinophils % (Manual) 0 % (0-3) Basophils % (Manual) 0 % (0-2) Band Neutrophils 0 % (0-8) Platelet Estimate Adequate Platelet Morphology Normal Hypochromasia 1+ Anisocytosis 1+ Prothrombin Time 11.4 SEC (9.30-11.50) Prothromb Time International Ratio 1.0 (0.9-1.1) Activated Partial Thromboplast Time 29 SEC (23-33) Sodium Level 140 MMOL/L (136-145) Potassium Level 4.4 MMOL/L (3.5-5.1) Chloride Level 103 MMOL/L (98-107) Carbon Dioxide Level 30 MMOL/L (21-32) Anion Gap 7 mmol/L (5-15) Blood Urea Nitrogen 22 mg/dL (7-18) H Creatinine 0.7 MG/DL (0.55-1.30) Estimat Glomerular Filtration Rate > 60 mL/min (>60) Glucose Level 123 MG/DL (74-106) #H Calcium Level 8.4 MG/DL (8.5-10.1) L Blanca Lobato PA-C Aug 03, 2020 18:22
--- NOTE | 2020-08-03 19:19 | NUR ---
1845: Cardiology at bedside. No new orders. 1914: Report given to LIANA Orourke. All questions answered. Care continues.
--- NOTE | 2020-08-03 19:30 | NUR ---
NURSE NOTES: Received pt orally intubated on aC mode, sedated with Fentanyl drip at 150mcg/hr and Versed drip at 15mg/hr for RASS Score-2, SR on the monitor BP stable ,afebrile, extremities tight and swollen with 2-3+ edema, Central line RT femoral with drsg dry and intact. Tolerated Fdg at this time Glucerna 1.2 t 25ml/hr hob kept elevated on aspiration precaution, rectal tube to gravity with brownish to melena colored liquid stool. joseph to gravity with ankita yellow colored urine. Monitor I and O. monitor lytes. Will continue to monitor.
[2020-08-03] MEDS: Dyna-Hex 2% Top Sol 2oz TOPIC SCH (20:08)
--- NOTE | 2020-08-03 20:31 | NUR ---
NURSE NOTES: Pt desat to 60s- 70s, suctioned orally and from ETT bloody colored secretions.
--- NOTE | 2020-08-03 21:30 | NUR ---
NURSE NOTES: fi02 up to 100%at this time due to pt desat.
[2020-08-04] VITALS (55 sets, daily range): BP systolic 89–154; BP diastolic 52–92
--- NOTE | 2020-08-04 | NUR ---
NURSE NOTES: P 200 bed was placed for skin protection.
[2020-08-04] MEDS: Solu-MEDROL 40mg Inj IVP SCH ×5 (00:08→23:29)
[2020-08-04] MEDS: NovoLOG Insulin Flexpen SUBQ SCH ×5 (00:10→23:30)
[2020-08-04] MEDS: fentaNYL 2500mcg/NS 250ml 250 ML IV PRN ×2 (00:24→12:00)
--- NOTE | 2020-08-04 02:00 | NUR ---
NURSE NOTES: Rt femoral central line drsg was changed.
--- NOTE | 2020-08-04 04:00 | NUR ---
NURSE NOTES: less bloody secretions from mouth was noted. Mds are aware.
[2020-08-04] MEDS: Versed 100mg/NS 200ml 200 ML IV PRN ×3 (05:00→18:34)
[2020-08-04 05:14] LABS: HEMATOCRIT 24.7 % (37.0-47.0); MEAN CORPUSCULAR VOLUME 87 FL (80-99); PLATELET COUNT 146 K/UL (150-450); RED BLOOD COUNT 2.84 M/UL (4.20-5.40); RED CELL DISTRIBUTION WIDTH 15.2 % (11.6-14.8); WHITE BLOOD COUNT 13.8 K/UL (4.8-10.8)
[2020-08-04 05:49] LABS: ALANINE AMINOTRANSFERASE 97 U/L (12-78); ALBUMIN 1.4 G/DL (3.4-5.0); ALBUMIN/GLOBULIN RATIO 0.5 (1.0-2.7); ALKALINE PHOSPHATASE 65 U/L (46-116); ANION GAP 6 mmol/L (5-15); ASPARTATE AMINO TRANSFERASE 115 U/L (15-37); BILIRUBIN,TOTAL < 0.1 MG/DL (0.2-1.0); BLOOD UREA NITROGEN 29 mg/dL (7-18); CALCIUM 8.3 MG/DL (8.5-10.1); CARBON DIOXIDE 29 MMOL/L (21-32); CHLORIDE 107 MMOL/L (98-107); CREATININE 0.7 MG/DL (0.55-1.30); PHOSPHORUS 3.5 MG/DL (2.5-4.9); SODIUM 142 MMOL/L (136-145)
--- NOTE | 2020-08-04 06:00 | NUR ---
NURSE NOTES: Fi02 down to 90%, 02 sat remained at 100%
--- NOTE | 2020-08-04 07:24 | NUR ---
NURSE HAND-OFF REPORT: Latest Vital Signs: Temperature 99.0 , Pulse 83 , B/P 94 /55 , Respiratory Rate 22 , O2 SAT 100 , Mechanical Ventilator, O2 Flow Rate . Vital Sign Comment: EKG Rhythm: Sinus Rhythm Rhythm change?: N MD Notified?: N - MD Response: Latest Plaza Fall Score: 50 Fall Risk: High Risk Safety Measures: Call light Within Reach, Bed Alarm Zone 3, Side Rails Side Rails x2, Bed position Low and Locked. Fall Precautions: Yellow Socks Yellow Gown Door Sign Patient Fall Education Report given to Jorge GAINES.
[2020-08-04] MEDS: Dextrose 10%/0.9% SOD CHL 1,000 ML IV SCH (08:00)
[2020-08-04] MEDS: Enoxaparin 80mg Inj SUBQ SCH ×2 (08:52→20:46)
[2020-08-04] MEDS: Docusate 100mg/10ml Liq NG SCH ×3 (08:54→17:42)
[2020-08-04] MEDS: Levemir Flexpen SUBQ SCH ×2 (09:19→20:46)
[2020-08-04] MEDS: Cefepime HCl 2 GM in D5W 55 ML IVPB SCH ×2 (10:10→20:44)
--- NOTE | 2020-08-04 10:33 | Pulmonology Progress Note ---
Subjective ROS Limited/Unobtainable: No Interval Events: S/p intubation Constitutional: Denies: fever HEENT: Repors: no symptoms Respiratory: Reports: shortness of breath Gastrointestinal/Abdominal: Reports: no symptoms Psychiatric: Reports: no symptoms Skin: Reports: no symptoms Musculoskeletal: Reports: no symptoms Allergies: Coded Allergies: No Known Allergies (Unverified , 07/07/20) Objective Last 24 Hour Vital Signs Date Time Temp Pulse Resp B/P (MAP) Pulse Ox O2 Delivery O2 Flow Rate FiO2 08/04/20 09:00 80 90/57 08/04/20 08:05 100 08/04/20 07:25 84 24 90 08/04/20 07:00 83 22 94/55 (68) 100 08/04/20 06:30 83 22 90/53 (65) 100 08/04/20 06:00 83 22 89/53 (65) 100 08/04/20 06:00 22 92/54 Mechanical Ventilator 90 08/04/20 06:00 22 92/54 Mechanical Ventilator 90 08/04/20 05:30 86 23 93/59 (70) 08/04/20 05:00 89 22 100 08/04/20 05:00 22 97/63 Mechanical Ventilator 100 08/04/20 05:00 22 97/63 Mechanical Ventilator 100 08/04/20 05:00 23 100/60 Mechanical Ventilator 100 08/04/20 05:00 87 22 98/63 (75) 100 08/04/20 04:30 85 22 91/59 (70) 99 08/04/20 04:00 96 08/04/20 04:00 99.0 86 24 95/60 (72) 99 08/04/20 04:00 24 93/55 Mechanical Ventilator 100 08/04/20 04:00 24 93/55 Mechanical Ventilator 100 08/04/20 04:00 Mechanical Ventilator 08/04/20 04:00 100 08/04/20 03:30 88 24 93/59 (70) 99 08/04/20 03:10 101 24 100 08/04/20 03:00 24 95/60 Mechanical Ventilator 100 08/04/20 03:00 25 99/56 Mechanical Ventilator 100 08/04/20 03:00 88 24 101/61 (74) 98 08/04/20 02:45 86 24 96/63 (74) 98 08/04/20 02:30 87 24 99/61 (74) 99 08/04/20 02:15 89 25 99/58 (72) 99 08/04/20 02:00 88 23 103/62 (76) 99 08/04/20 02:00 25 99/58 Mechanical Ventilator 100 08/04/20 02:00 22 99/58 Mechanical Ventilator 08/04/20 01:45 89 23 106/62 (77) 100 08/04/20 01:30 91 22 102/61 (75) 100 08/04/20 01:20 96 27 100 08/04/20 01:00 23 95/60 Mechanical Ventilator 100 08/04/20 01:00 22 107/60 Mechanical Ventilator 100 08/04/20 01:00 96 22 100/57 (71) 100 08/04/20 00:30 95 20 94/58 (70) 100 08/04/20 00:24 23 115/60 Mechanical Ventilator 100 08/04/20 00:00 96 08/04/20 00:00 22 107/76 Mechanical Ventilator 100 08/04/20 00:00 25 99/58 Mechanical Ventilator 100 08/04/20 00:00 99.0 94 25 96/60 (72) 95 08/04/20 00:00 Mechanical Ventilator 08/03/20 23:30 97 23 100/55 (70) 08/03/20 23:17 100 25 100 08/03/20 23:00 101 19 90/53 (65) 89 08/03/20 23:00 24 91/58 Mechanical Ventilator 100 08/03/20 23:00 21 86/50 Mechanical Ventilator 100 08/03/20 22:30 99 25 89/51 (64) 90 08/03/20 22:00 100 23 86/50 (62) 92 08/03/20 22:00 23 110/60 Mechanical Ventilator 100 08/03/20 22:00 22 86/50 Mechanical Ventilator 100 08/03/20 21:56 24 94/62 Mechanical Ventilator 100 08/03/20 21:47 96 23 100 08/03/20 21:45 93 23 94/62 (73) 92 08/03/20 21:30 95 23 98/61 (73) 93 08/03/20 21:00 23 120/60 Mechanical Ventilator 100 08/03/20 21:00 23 110/60 Mechanical Ventilator 90 08/03/20 21:00 91 98/61 08/03/20 21:00 98 22 108/67 (81) 93 08/03/20 20:45 23 120/60 Mechanical Ventilator 80 08/03/20 20:45 100 22 104/67 (79) 92 08/03/20 20:30 23 120/60 Mechanical Ventilator 80 08/03/20 20:30 112 30 124/73 (90) 86 08/03/20 20:15 113 25 134/70 (91) 55 08/03/20 20:15 23 134/70 Mechanical Ventilator 80 08/03/20 20:00 99.0 97 25 115/68 (84) 76 08/03/20 20:00 106 08/03/20 20:00 23 105/61 Mechanical Ventilator 80 08/03/20 20:00 Mechanical Ventilator 08/03/20 20:00 100 08/03/20 19:17 99 22 80 08/03/20 19:00 96 23 102/63 (76) 94 08/03/20 19:00 22 102/63 Mechanical Ventilator 80 08/03/20 19:00 22 102/63 Mechanical Ventilator 80 08/03/20 18:45 93 23 96/61 (73) 97 08/03/20 18:30 95 21 102/63 (76) 99 08/03/20 18:15 98 22 101/63 (76) 100 08/03/20 18:00 96 21 109/67 (81) 97 08/03/20 18:00 22 109/67 Mechanical Ventilator 80 08/03/20 18:00 22 109/67 Mechanical Ventilator 80 08/03/20 17:45 104 22 94/54 (67) 100 08/03/20 17:30 119 24 112/59 (76) 65 08/03/20 17:15 117 25 117/70 (86) 78 08/03/20 17:00 22 113/70 Mechanical Ventilator 80 08/03/20 17:00 22 113/70 Mechanical Ventilator 80 08/03/20 17:00 114 24 113/70 (84) 99 08/03/20 16:15 85 23 100/63 (75) 98 08/03/20 16:00 80 08/03/20 16:00 Mechanical Ventilator 08/03/20 16:00 23 100/67 Mechanical Ventilator 80 08/03/20 16:00 23 100/67 Mechanical Ventilator 80 08/03/20 16:00 98.7 88 22 100/67 (78) 98 08/03/20 16:00 Mechanical Ventilator 08/03/20 16:00 85 08/03/20 15:45 87 22 105/68 (80) 94 08/03/20 15:30 85 26 99/63 (75) 97 08/03/20 15:15 87 25 97/64 (75) 100 08/03/20 15:00 88 25 98/64 (75) 99 08/03/20 15:00 25 98/56 Mechanical Ventilator 80 08/03/20 15:00 25 98/64 Mechanical Ventilator 80 08/03/20 14:50 83 26 80 08/03/20 14:45 87 26 101/65 (77) 08/03/20 14:30 88 26 93/61 (72) 08/03/20 14:15 90 26 95/60 (72) 08/03/20 14:00 91 24 95/61 (72) 98 08/03/20 14:00 22 95/61 Mechanical Ventilator 80 08/03/20 14:00 22 95/61 Mechanical Ventilator 80 08/03/20 14:00 89 25 95/61 (72) 08/03/20 13:45 83 25 99/67 (78) 100 08/03/20 13:30 85 25 103/61 (75) 08/03/20 13:15 86 25 101/60 (74) 100 08/03/20 13:00 85 26 101/60 (74) 100 08/03/20 13:00 22 101/60 Mechanical Ventilator 80 08/03/20 13:00 22 101/60 Mechanical Ventilator 80 08/03/20 12:30 86 24 101/62 (75) 100 08/03/20 12:15 85 26 96/59 (71) 80 08/03/20 12:00 98.8 86 25 90/61 (71) 08/03/20 12:00 88 26 101/62 (75) 100 08/03/20 12:00 22 90/61 Mechanical Ventilator 80 08/03/20 12:00 22 90/61 Mechanical Ventilator 80 08/03/20 12:00 86 08/03/20 12:00 80 08/03/20 12:00 Mechanical Ventilator 08/03/20 11:45 88 27 96/60 (72) 94 08/03/20 11:30 88 25 97/58 (71) 98 08/03/20 11:20 86 23 80 08/03/20 11:00 87 22 95/57 (70) 100 08/03/20 11:00 22 95/57 Mechanical Ventilator 100 08/03/20 11:00 22 95/57 Mechanical Ventilator 100 08/03/20 11:00 86 23 95/57 (70) 100 08/03/20 10:45 85 25 102/62 (75) 100 Intake and Output 08/03/20 08/04/20 19:00 07:00 Intake Total 736.50 ml 1098.75 ml Output Total 1000 ml 960 ml Balance -263.50 ml 138.75 ml Free Water 30 ml 90 ml IV Total 556.50 ml 553.75 ml Tube Feeding 150 ml 455 ml Output Urine Total 950 ml 660 ml Stool Total 50 ml 300 ml # Bowel Movements 2 3 General Appearance: no acute distress HEENT: normocephalic Respiratory: decreased breath sounds Cardiovascular: normal peripheral pulses Abdomen: normal bowel sounds Laboratory Tests 08/04/20 04:20: White Blood Count 13.8H, Red Blood Count 2.84L, Hemoglobin 8.0L, Hematocrit 24.7L, Mean Corpuscular Volume 87, Mean Corpuscular Hemoglobin 28.3, Mean Corpuscular Hemoglobin Concent 32.5, Red Cell Distribution Width 15.2H, Platelet Count 146L, Mean Platelet Volume 9.5, Neutrophils (%) (Auto) , Lymphocytes (%) (Auto) , Monocytes (%) (Auto) , Eosinophils (%) (Auto) , Basophils (%) (Auto) , Differential Total Cells Counted 100, Neutrophils % (Manual) 93H, Lymphocytes % (Manual) 5L, Monocytes % (Manual) 2, Eosinophils % (Manual) 0, Basophils % (Manual) 0, Band Neutrophils 0, Platelet Estimate DecreasedL, Platelet Morphology Normal, Hypochromasia 1+, Anisocytosis 1+, Sodium Level 142, Potassium Level 4.0, Chloride Level 107, Carbon Dioxide Level 29, Anion Gap 6, Blood Urea Nitrogen 29H, Creatinine 0.7, Estimat Glomerular Filtration Rate > 60, Glucose Level 145H, Calcium Level 8.3L, Phosphorus Level 3.5, Magnesium Level 2.0, Total Bilirubin < 0.1L, Aspartate Amino Transf (AST/SGOT) 115H, Alanine Aminotransferase (ALT/SGPT) 97H, Alkaline Phosphatase 65, C-Reactive Protein, Quantitative 3.8H, Pro-B-Type Natriuretic Peptide 601H, Total Protein 4.4L, Albumin 1.4L, Globulin 3.0, Albumin/Globulin Ratio 0.5L 08/04/20 07:53: Arterial Blood pH 7.331L, Arterial Blood Partial Pressure CO2 51.5H, Arterial Blood Partial Pressure O2 60.6L, Arterial Blood HCO3 26.6H, Arterial Blood Oxygen Saturation 87.4*L, Arterial Blood Base Excess 0.3, Timbo Test Positive Current Medications Medications (Trade) Dose Ordered Sig/Mraian Route PRN Reason Start Time Stop Time Status Last Admin Dose Admin Acetaminophen (Tylenol) 650 mg Q4H PRN RECTAL Temp >100.5 07/18/20 18:30 08/17/20 18:29 08/01/20 16:50 Acetaminophen (Tylenol) 650 mg Q6H PRN ORAL For Pain 07/07/20 15:45 08/06/20 15:44 08/02/20 18:59 Acetaminophen (Tylenol) 650 mg Q6H PRN ORAL FEVER 07/07/20 16:15 08/06/20 16:14 07/30/20 12:36 Benzonatate (Tessalon Perles) 100 mg TIDPRN PRN ORAL For Cough 07/18/20 18:30 08/17/20 18:29 Cefepime HCl 2 gm/ Dextrose 55 ml @ 110 mls/hr Q12HR IVPB 07/22/20 13:00 08/06/20 12:59 08/04/20 10:10 Chlorhexidine Gluconate (Rafaela-Hex 2%) 1 applic DAILY@2000 TOPIC 08/01/20 20:00 10/30/20 19:59 08/03/20 20:08 Dextrose (Dextrose 50%) 25 ml Q30M PRN IV Hypoglycemia 07/07/20 15:45 10/05/20 15:44 Dextrose (Dextrose 50%) 50 ml Q30M PRN IV Hypoglycemia 07/07/20 15:45 10/05/20 15:44 Dextrose/Sodium Chloride 1,000 ml @ 50 mls/hr Q20H IV 08/03/20 12:00 09/02/20 11:59 08/03/20 12:21 Docusate Sodium (Colace) 100 mg TID NG 07/29/20 13:00 08/25/20 17:59 08/04/20 08:54 Enoxaparin Sodium (Lovenox) 70 mg EVERY 12 HOURS SUBQ 07/25/20 21:00 10/23/20 20:59 08/01/20 21:23 Famotidine (Pepcid I.v.) 20 mg Q12HR IVP 07/20/20 09:00 08/19/20 08:59 08/04/20 08:54 Fentanyl Citrate 250 ml @ 1 mls/hr Q24H PRN IV SEDATION 08/02/20 16:00 08/04/20 15:59 08/04/20 00:24 Insulin Aspart (NovoLOG) Q6HR SUBQ 07/26/20 12:00 10/24/20 11:59 08/04/20 00:10 Insulin Detemir (Levemir) 30 units Q12HR SUBQ 08/01/20 21:00 10/24/20 10:29 08/04/20 09:19 Methylprednisolone Sodium Succinate (Solu-MEDROL) 20 mg EVERY 6 HOURS IVP 07/22/20 12:00 10/19/20 08:59 08/04/20 05:56 Metoprolol Tartrate (Lopressor) 25 mg EVERY 12 HOURS NG 07/26/20 21:00 10/24/20 20:59 07/31/20 09:02 Midazolam HCl 200 ml @ 0 mls/hr Q24H PRN IV Agitation 07/29/20 22:45 08/05/20 22:44 08/04/20 05:00 Sorbitol (sorbitoL) 45 ml Q12HR PRN ORAL Constipation 07/30/20 09:15 08/29/20 09:14 Assessment/Plan Assessment/Plan 1. COVID-19 pneumonia. - COVID-19 PCR positive (07/07) - s/p remdexsivir - s/p azithromycin - CXR (07/13) no significant change - f/u rapid COVID-19 (07/31) negative -> now off isolation 2. Hypoxemic respiratory distress - s/p decadron (07/08-07/17) - now on Solu-Medrol - intubated; on AC mode - FiO2 100 -> 80-> 100%; continue PEEP 7->8 -> 10-> 8 - episodically desaturates to 70% 3. Hypertension. - Required central line 08/01/20 -on Levophed 4. Diabetes mellitus. -on insulin sliding scale 5. DVT ppx - on Lovenox, full dose empirically; on hold now due to epistaxis - will get V/D US -> SCD if negative 6. Sputum Cx shows pseudomonas and cony - continue cefepime per ID 7. Suspect bacterial infection given leukocytosis - s/p Diflucan - On Cefepime - s/p IV Vanco - s/p IV Bactrim for possible PJP 8. Pulmonary edema -Off lasix gtt Discussed with bedside RN. Having epistaxis and oral bleeding Hold Lovenox Will give FFP Transfuse prn On Levemir The care of this patient was discussed with my supervising physician Time spent for this encounter was approximately 31 minutes Milton Howard Aug 04, 2020 10:33
--- NOTE | 2020-08-04 10:51 | Infectious Diseases Prog Note ---
Assessment/Plan Assessment/Plan antibiotics : cefepime A 1. covid 19 pneumonia on 100 % Fio2 with 100 % saturation 2. pseudomonas pneumonia 3. respiratory failure 4. leucocytosis improving 5. diabetes mellitus P 1. continue cefepime 5 more days 2. will follow up cultures Subjective ROS Limited/Unobtainable: Yes Allergies: Coded Allergies: No Known Allergies (Unverified , 07/07/20) Objective Last 24 Hour Vital Signs Date Time Temp Pulse Resp B/P (MAP) Pulse Ox O2 Delivery O2 Flow Rate FiO2 08/04/20 09:00 80 90/57 08/04/20 08:05 100 08/04/20 07:25 84 24 90 08/04/20 07:00 83 22 94/55 (68) 100 08/04/20 06:30 83 22 90/53 (65) 100 08/04/20 06:00 83 22 89/53 (65) 100 08/04/20 06:00 22 92/54 Mechanical Ventilator 90 08/04/20 06:00 22 92/54 Mechanical Ventilator 90 08/04/20 05:30 86 23 93/59 (70) 08/04/20 05:00 89 22 100 08/04/20 05:00 22 97/63 Mechanical Ventilator 100 08/04/20 05:00 22 97/63 Mechanical Ventilator 100 08/04/20 05:00 23 100/60 Mechanical Ventilator 100 08/04/20 05:00 87 22 98/63 (75) 100 08/04/20 04:30 85 22 91/59 (70) 99 08/04/20 04:00 96 08/04/20 04:00 99.0 86 24 95/60 (72) 99 08/04/20 04:00 24 93/55 Mechanical Ventilator 100 08/04/20 04:00 24 93/55 Mechanical Ventilator 100 08/04/20 04:00 Mechanical Ventilator 08/04/20 04:00 100 08/04/20 03:30 88 24 93/59 (70) 99 08/04/20 03:10 101 24 100 08/04/20 03:00 24 95/60 Mechanical Ventilator 100 08/04/20 03:00 25 99/56 Mechanical Ventilator 100 08/04/20 03:00 88 24 101/61 (74) 98 08/04/20 02:45 86 24 96/63 (74) 98 08/04/20 02:30 87 24 99/61 (74) 99 08/04/20 02:15 89 25 99/58 (72) 99 08/04/20 02:00 88 23 103/62 (76) 99 08/04/20 02:00 25 99/58 Mechanical Ventilator 100 08/04/20 02:00 22 99/58 Mechanical Ventilator 08/04/20 01:45 89 23 106/62 (77) 100 08/04/20 01:30 91 22 102/61 (75) 100 08/04/20 01:20 96 27 100 08/04/20 01:00 23 95/60 Mechanical Ventilator 100 08/04/20 01:00 22 107/60 Mechanical Ventilator 100 08/04/20 01:00 96 22 100/57 (71) 100 08/04/20 00:30 95 20 94/58 (70) 100 08/04/20 00:24 23 115/60 Mechanical Ventilator 100 08/04/20 00:00 96 08/04/20 00:00 22 107/76 Mechanical Ventilator 100 08/04/20 00:00 25 99/58 Mechanical Ventilator 100 08/04/20 00:00 99.0 94 25 96/60 (72) 95 08/04/20 00:00 Mechanical Ventilator 08/03/20 23:30 97 23 100/55 (70) 08/03/20 23:17 100 25 100 08/03/20 23:00 101 19 90/53 (65) 89 08/03/20 23:00 24 91/58 Mechanical Ventilator 100 08/03/20 23:00 21 86/50 Mechanical Ventilator 100 08/03/20 22:30 99 25 89/51 (64) 90 08/03/20 22:00 100 23 86/50 (62) 92 08/03/20 22:00 23 110/60 Mechanical Ventilator 100 08/03/20 22:00 22 86/50 Mechanical Ventilator 100 08/03/20 21:56 24 94/62 Mechanical Ventilator 100 08/03/20 21:47 96 23 100 08/03/20 21:45 93 23 94/62 (73) 92 08/03/20 21:30 95 23 98/61 (73) 93 08/03/20 21:00 23 120/60 Mechanical Ventilator 100 08/03/20 21:00 23 110/60 Mechanical Ventilator 90 08/03/20 21:00 91 98/61 08/03/20 21:00 98 22 108/67 (81) 93 08/03/20 20:45 23 120/60 Mechanical Ventilator 80 08/03/20 20:45 100 22 104/67 (79) 92 08/03/20 20:30 23 120/60 Mechanical Ventilator 80 08/03/20 20:30 112 30 124/73 (90) 86 08/03/20 20:15 113 25 134/70 (91) 55 08/03/20 20:15 23 134/70 Mechanical Ventilator 80 08/03/20 20:00 99.0 97 25 115/68 (84) 76 08/03/20 20:00 106 08/03/20 20:00 23 105/61 Mechanical Ventilator 80 08/03/20 20:00 Mechanical Ventilator 08/03/20 20:00 100 08/03/20 19:17 99 22 80 08/03/20 19:00 96 23 102/63 (76) 94 08/03/20 19:00 22 102/63 Mechanical Ventilator 80 08/03/20 19:00 22 102/63 Mechanical Ventilator 80 08/03/20 18:45 93 23 96/61 (73) 97 08/03/20 18:30 95 21 102/63 (76) 99 08/03/20 18:15 98 22 101/63 (76) 100 08/03/20 18:00 96 21 109/67 (81) 97 08/03/20 18:00 22 109/67 Mechanical Ventilator 80 08/03/20 18:00 22 109/67 Mechanical Ventilator 80 08/03/20 17:45 104 22 94/54 (67) 100 08/03/20 17:30 119 24 112/59 (76) 65 08/03/20 17:15 117 25 117/70 (86) 78 08/03/20 17:00 22 113/70 Mechanical Ventilator 80 08/03/20 17:00 22 113/70 Mechanical Ventilator 80 08/03/20 17:00 114 24 113/70 (84) 99 08/03/20 16:15 85 23 100/63 (75) 98 08/03/20 16:00 80 08/03/20 16:00 Mechanical Ventilator 08/03/20 16:00 23 100/67 Mechanical Ventilator 80 08/03/20 16:00 23 100/67 Mechanical Ventilator 80 08/03/20 16:00 98.7 88 22 100/67 (78) 98 08/03/20 16:00 Mechanical Ventilator 08/03/20 16:00 85 08/03/20 15:45 87 22 105/68 (80) 94 08/03/20 15:30 85 26 99/63 (75) 97 08/03/20 15:15 87 25 97/64 (75) 100 08/03/20 15:00 88 25 98/64 (75) 99 08/03/20 15:00 25 98/56 Mechanical Ventilator 80 08/03/20 15:00 25 98/64 Mechanical Ventilator 80 08/03/20 14:50 83 26 80 08/03/20 14:45 87 26 101/65 (77) 08/03/20 14:30 88 26 93/61 (72) 08/03/20 14:15 90 26 95/60 (72) 08/03/20 14:00 91 24 95/61 (72) 98 08/03/20 14:00 22 95/61 Mechanical Ventilator 80 08/03/20 14:00 22 95/61 Mechanical Ventilator 80 08/03/20 14:00 89 25 95/61 (72) 08/03/20 13:45 83 25 99/67 (78) 100 08/03/20 13:30 85 25 103/61 (75) 08/03/20 13:15 86 25 101/60 (74) 100 08/03/20 13:00 85 26 101/60 (74) 100 08/03/20 13:00 22 101/60 Mechanical Ventilator 80 08/03/20 13:00 22 101/60 Mechanical Ventilator 80 08/03/20 12:30 86 24 101/62 (75) 100 08/03/20 12:15 85 26 96/59 (71) 80 08/03/20 12:00 98.8 86 25 90/61 (71) 08/03/20 12:00 88 26 101/62 (75) 100 08/03/20 12:00 22 90/61 Mechanical Ventilator 80 08/03/20 12:00 22 90/61 Mechanical Ventilator 80 08/03/20 12:00 86 08/03/20 12:00 80 08/03/20 12:00 Mechanical Ventilator 3/4/21 11:45 88 27 96/60 (72) 94 08/03/20 11:30 88 25 97/58 (71) 98 08/03/20 11:20 86 23 80 08/03/20 11:00 87 22 95/57 (70) 100 08/03/20 11:00 22 95/57 Mechanical Ventilator 100 08/03/20 11:00 22 95/57 Mechanical Ventilator 100 08/03/20 11:00 86 23 95/57 (70) 100 Height (Feet): 5 Height (Inches): 3.00 Weight (Pounds): 162 HEENT: other - on vent Laboratory Tests Test 08/04/20 04:20 08/04/20 07:53 White Blood Count 13.8 K/UL (4.8-10.8) H Red Blood Count 2.84 M/UL (4.20-5.40) L Hemoglobin 8.0 G/DL (12.0-16.0) L Hematocrit 24.7 % (37.0-47.0) L Mean Corpuscular Volume 87 FL (80-99) Mean Corpuscular Hemoglobin 28.3 PG (27.0-31.0) Mean Corpuscular Hemoglobin Concent 32.5 G/DL (32.0-36.0) Red Cell Distribution Width 15.2 % (11.6-14.8) H Platelet Count 146 K/UL (150-450) L Mean Platelet Volume 9.5 FL (6.5-10.1) Neutrophils (%) (Auto) % (45.0-75.0) Lymphocytes (%) (Auto) % (20.0-45.0) Monocytes (%) (Auto) % (1.0-10.0) Eosinophils (%) (Auto) % (0.0-3.0) Basophils (%) (Auto) % (0.0-2.0) Differential Total Cells Counted 100 Neutrophils % (Manual) 93 % (45-75) H Lymphocytes % (Manual) 5 % (20-45) L Monocytes % (Manual) 2 % (1-10) Eosinophils % (Manual) 0 % (0-3) Basophils % (Manual) 0 % (0-2) Band Neutrophils 0 % (0-8) Platelet Estimate Decreased L Platelet Morphology Normal Hypochromasia 1+ Anisocytosis 1+ Sodium Level 142 MMOL/L (136-145) Potassium Level 4.0 MMOL/L (3.5-5.1) Chloride Level 107 MMOL/L (98-107) Carbon Dioxide Level 29 MMOL/L (21-32) Anion Gap 6 mmol/L (5-15) Blood Urea Nitrogen 29 mg/dL (7-18) H Creatinine 0.7 MG/DL (0.55-1.30) Estimat Glomerular Filtration Rate > 60 mL/min (>60) Glucose Level 145 MG/DL (74-106) H Calcium Level 8.3 MG/DL (8.5-10.1) L Phosphorus Level 3.5 MG/DL (2.5-4.9) Magnesium Level 2.0 MG/DL (1.8-2.4) Total Bilirubin < 0.1 MG/DL (0.2-1.0) L Aspartate Amino Transf (AST/SGOT) 115 U/L (15-37) H Alanine Aminotransferase (ALT/SGPT) 97 U/L (12-78) H Alkaline Phosphatase 65 U/L (46-116) C-Reactive Protein, Quantitative 3.8 mg/dL (0.00-0.90) H Pro-B-Type Natriuretic Peptide 601 pg/mL (0-125) H Total Protein 4.4 G/DL (6.4-8.2) L Albumin 1.4 G/DL (3.4-5.0) L Globulin 3.0 g/dL Albumin/Globulin Ratio 0.5 (1.0-2.7) L Arterial Blood pH 7.331 (7.350-7.450) Arterial Blood Partial Pressure CO2 51.5 mmHg (35.0-45.0) H Arterial Blood Partial Pressure O2 60.6 mmHg (75.0-100.0) L Arterial Blood HCO3 26.6 mmol/L (22.0-26.0) H Arterial Blood Oxygen Saturation 87.4 % (95-100) *L Arterial Blood Base Excess 0.3 (-2-2) Timbo Test Positive Current Medications Medications (Trade) Dose Ordered Sig/Marian Route PRN Reason Start Time Stop Time Status Last Admin Dose Admin Acetaminophen (Tylenol) 650 mg Q4H PRN RECTAL Temp >100.5 07/18/20 18:30 08/17/20 18:29 08/01/20 16:50 Acetaminophen (Tylenol) 650 mg Q6H PRN ORAL For Pain 07/07/20 15:45 08/06/20 15:44 08/02/20 18:59 Acetaminophen (Tylenol) 650 mg Q6H PRN ORAL FEVER 07/07/20 16:15 08/06/20 16:14 07/30/20 12:36 Benzonatate (Tessalon Perles) 100 mg TIDPRN PRN ORAL For Cough 07/18/20 18:30 08/17/20 18:29 Cefepime HCl 2 gm/ Dextrose 55 ml @ 110 mls/hr Q12HR IVPB 07/22/20 13:00 08/06/20 12:59 08/04/20 10:10 Chlorhexidine Gluconate (Rafaela-Hex 2%) 1 applic DAILY@2000 TOPIC 08/01/20 20:00 10/30/20 19:59 08/03/20 20:08 Dextrose (Dextrose 50%) 25 ml Q30M PRN IV Hypoglycemia 07/07/20 15:45 10/05/20 15:44 Dextrose (Dextrose 50%) 50 ml Q30M PRN IV Hypoglycemia 07/07/20 15:45 10/05/20 15:44 Dextrose/Sodium Chloride 1,000 ml @ 50 mls/hr Q20H IV 08/03/20 12:00 09/02/20 11:59 08/03/20 12:21 Docusate Sodium (Colace) 100 mg TID NG 07/29/20 13:00 08/25/20 17:59 08/04/20 08:54 Enoxaparin Sodium (Lovenox) 70 mg EVERY 12 HOURS SUBQ 07/25/20 21:00 10/23/20 20:59 08/01/20 21:23 Famotidine (Pepcid I.v.) 20 mg Q12HR IVP 07/20/20 09:00 08/19/20 08:59 08/04/20 08:54 Fentanyl Citrate 250 ml @ 1 mls/hr Q24H PRN IV SEDATION 08/02/20 16:00 08/04/20 15:59 08/04/20 00:24 Insulin Aspart (NovoLOG) Q6HR SUBQ 07/26/20 12:00 10/24/20 11:59 08/04/20 00:10 Insulin Detemir (Levemir) 30 units Q12HR SUBQ 08/01/20 21:00 10/24/20 10:29 08/04/20 09:19 Methylprednisolone Sodium Succinate (Solu-MEDROL) 20 mg EVERY 6 HOURS IVP 07/22/20 12:00 10/19/20 08:59 08/04/20 05:56 Metoprolol Tartrate (Lopressor) 25 mg EVERY 12 HOURS NG 07/26/20 21:00 10/24/20 20:59 07/31/20 09:02 Midazolam HCl 200 ml @ 0 mls/hr Q24H PRN IV Agitation 07/29/20 22:45 08/05/20 22:44 08/04/20 05:00 Sorbitol (sorbitoL) 45 ml Q12HR PRN ORAL Constipation 07/30/20 09:15 08/29/20 09:14 Lynne Gonzalez MD Aug 04, 2020 10:51
--- NOTE | 2020-08-04 13:01 | NUR ---
RD ASSESSMENT & RECOMMENDATIONS SEE CARE ACTIVITY FOR COMPLETE ASSESSMENT DAILY ESTIMATED NEEDS: Needs based on Critical care, DM, pulmonary/ 57.6kg abw 22-28 kcals/kg [id number] total kcals 1.2-2 g protein/kg 69-115 g total protein Fluid per MD, on lasix mL/kg . total fluid mLs NUTRITION DIAGNOSIS: Altered nutrition related lab values R/T diabetes and steroidal med as evidenced by A1C 6.9 w/ elev POC (200's and 300's-> now improved to mid 100's), remains on solumedrol. CURRENT TF:Glucerna 1.2 @ 55ml/hr x 24 hrs ENTERAL NUTRITION RECOMMENDATIONS: Glucerna 1.2 g @ 55ml/hr x24 hrs to provide 1320ml, 1584 kcal, 79g pro, 1063ml free H2O - Cont to titrate to goal as tolerated - Flush per MD - HOB over 30 degrees . ADDITIONAL RECOMMENDATIONS: * Calibrated bedscale wt * Monitor K need for TF change (K 5.8 08/01, now wnl) * Monitor BGs closely w/ Solumderol, rec to increase Levemir -> NOW INCREASED, BGS IMPROVED TO MID 100'S * Monitor hemodynamic stability- NE held .
--- NOTE | 2020-08-04 14:08 | Nephrology Progress Note ---
Assessment/Plan Problem List: (1) Hyponatremia (2) Hypoxia (3) Pneumonitis (4) Acute respiratory failure due to COVID-19 (5) DMII (diabetes mellitus, type 2) (6) HTN (hypertension) Assessment Hyponatremia, improved with saline infusion COVID-19 infection Pneumonia, acute respiratory failure, hypoxia Diabetes mellitus Hypertension Plan August 04: Labs reviewed. Renal parameters stable. Medication list reviewed. Continue per consultants. August 03: Labs reviewed. Discussed with RN. Patient n.p.o. at this time. Will start IV until feeding resumes. Continue to monitor electrolytes and renal parameters. Medication list reviewed. Continue per consultants. August 02: Labs reviewed. Serum sodium drifting down. Serum potassium remains higher than normal though improved since yesterday. Kayexalate via NG tube g iven and 250 cc 3% saline IV given continue to monitor renal parameters and electrolytes. August 01: Today's labs reviewed. Discussed with RN. Kayexalate for high potassium given. Hemoglobin lower. Defer transfusion to emergency services professional. Continue to monitor electrolytes and renal parameters. July 31: No CHEM panel drawn today. Remains full code. Intubated on ventilator. FiO2 85% now. Will check lab tomorrow. Continue to monitor renal parameters. July 30: Labs reviewed. Renal parameters stable. Continue per consultants. Intubated on ventilator with FiO2 of 100%. Full code. Not much to add from renal standpoint of view at this time. July 29 labs reviewed. Serum potassium elevated. Potassium supplement was put on hold on 1 dose of Kayexalate given. Levemir dose increased. Continue to monitor renal parameters. Patient remains on 100% FiO2 on ventilator. July 28: Labs reviewed. Renal parameters stable. Remains full code. Blood sugar remains high. Levemir dose increased. Not much to add from renal standpoint of view. FiO2 now is 100%. July 27: Labs reviewed. Renal parameters stable. Low potassium addressed. FiO2 70%. Blood sugar elevated. Levemir dose is being adjusted. Continue per consultants. July 26: Labs reviewed. Renal parameters stable. Patient now intubated on ventilator in ICU. Blood sugar elevated. Levemir added. Will watch electro lytes. Main management per finished goods planner and ID. July 25: Labs reviewed. Renal parameters stable. Continue per consultants. July 24: Labs reviewed. Renal parameters stable. Continue per pulmonary. Medication list reviewed. July 23: No labs drawn today. Medication list reviewed. Continue per managed services consultant. Patient full code. July 22: Labs reviewed. Stable renal parameters. Continue per consultants. July 21: No CHEM panel drawn today. Stable from renal standpoint of view. Blood pressure stable. July 20: IV changed to D5W 50 cc an hour. Renal parameters stable. Continue per consultants. July 19: Pulmonary status remains unstable. Stable from renal standpoint of view. July 18: Labs reviewed. Stable renal parameters and electrolytes. Continue per consultants. July 17: No labs drawn today. Remains stable from renal standpoint today. July 16: No labs drawn today. Continue per consultants. Stable from renal standpoint of view. July 15: Labs reviewed. Renal parameters stable. July 14: No labs from today. Continue per current management. Check labs tomorrow. July 13: No labs drawn today. Stable from renal standpoint of view. July 12: Today's labs pending. Medication list reviewed. Continue per current management and consultants. July 11: Labs reviewed. Renal parameters stable. July 10: Labs reviewed. Renal parameters electrolytes stable. Continue per consultants. July 09: Labs reviewed. Renal parameters and electrolytes stable. Continue per ID and pulmonary. Subjective ROS Limited/Unobtainable: Yes Objective Objective Last 24 Hour Vital Signs Date Time Temp Pulse Resp B/P (MAP) Pulse Ox O2 Delivery O2 Flow Rate FiO2 08/04/20 12:03 88 23 100 08/04/20 12:00 22 103/57 Mechanical Ventilator 100 08/04/20 12:00 22 103/57 Mechanical Ventilator 100 08/04/20 12:00 100 08/04/20 11:00 82 23 91/54 (66) 08/04/20 10:30 81 22 91/58 (69) 08/04/20 10:00 89 15 95/52 (66) 08/04/20 09:30 79 22 90/57 (68) 08/04/20 09:00 80 90/57 08/04/20 09:00 81 18 93/59 (70) 08/04/20 08:30 82 23 93/58 (70) 08/04/20 08:05 100 08/04/20 08:00 100 08/04/20 08:00 85 08/04/20 08:00 98.5 85 24 93/52 (66) 08/04/20 07:30 83 22 93/60 (71) 08/04/20 07:25 84 24 90 08/04/20 07:00 83 22 94/55 (68) 100 08/04/20 06:30 83 22 90/53 (65) 100 08/04/20 06:00 83 22 89/53 (65) 100 08/04/20 06:00 22 92/54 Mechanical Ventilator 90 08/04/20 06:00 22 92/54 Mechanical Ventilator 90 08/04/20 05:30 86 23 93/59 (70) 08/04/20 05:00 89 22 100 08/04/20 05:00 22 97/63 Mechanical Ventilator 100 08/04/20 05:00 22 97/63 Mechanical Ventilator 100 08/04/20 05:00 23 100/60 Mechanical Ventilator 100 08/04/20 05:00 87 22 98/63 (75) 100 08/04/20 04:30 85 22 91/59 (70) 99 08/04/20 04:00 96 08/04/20 04:00 99.0 86 24 95/60 (72) 99 08/04/20 04:00 24 93/55 Mechanical Ventilator 100 08/04/20 04:00 24 93/55 Mechanical Ventilator 100 08/04/20 04:00 Mechanical Ventilator 08/04/20 04:00 100 08/04/20 03:30 88 24 93/59 (70) 99 08/04/20 03:10 101 24 100 08/04/20 03:00 24 95/60 Mechanical Ventilator 100 08/04/20 03:00 25 99/56 Mechanical Ventilator 100 08/04/20 03:00 88 24 101/61 (74) 98 08/04/20 02:45 86 24 96/63 (74) 98 08/04/20 02:30 87 24 99/61 (74) 99 08/04/20 02:15 89 25 99/58 (72) 99 08/04/20 02:00 88 23 103/62 (76) 99 08/04/20 02:00 25 99/58 Mechanical Ventilator 100 08/04/20 02:00 22 99/58 Mechanical Ventilator 08/04/20 01:45 89 23 106/62 (77) 100 08/04/20 01:30 91 22 102/61 (75) 100 08/04/20 01:20 96 27 100 08/04/20 01:00 23 95/60 Mechanical Ventilator 100 08/04/20 01:00 22 107/60 Mechanical Ventilator 100 08/04/20 01:00 96 22 100/57 (71) 100 08/04/20 00:30 95 20 94/58 (70) 100 08/04/20 00:24 23 115/60 Mechanical Ventilator 100 08/04/20 00:00 96 08/04/20 00:00 22 107/76 Mechanical Ventilator 100 08/04/20 00:00 25 99/58 Mechanical Ventilator 100 08/04/20 00:00 99.0 94 25 96/60 (72) 95 08/04/20 00:00 Mechanical Ventilator 08/03/20 23:30 97 23 100/55 (70) 08/03/20 23:17 100 25 100 08/03/20 23:00 101 19 90/53 (65) 89 08/03/20 23:00 24 91/58 Mechanical Ventilator 100 08/03/20 23:00 21 86/50 Mechanical Ventilator 100 08/03/20 22:30 99 25 89/51 (64) 90 08/03/20 22:00 100 23 86/50 (62) 92 08/03/20 22:00 23 110/60 Mechanical Ventilator 100 08/03/20 22:00 22 86/50 Mechanical Ventilator 100 08/03/20 21:56 24 94/62 Mechanical Ventilator 100 08/03/20 21:47 96 23 100 08/03/20 21:45 93 23 94/62 (73) 92 08/03/20 21:30 95 23 98/61 (73) 93 08/03/20 21:00 23 120/60 Mechanical Ventilator 100 08/03/20 21:00 23 110/60 Mechanical Ventilator 90 08/03/20 21:00 91 98/61 08/03/20 21:00 98 22 108/67 (81) 93 08/03/20 20:45 23 120/60 Mechanical Ventilator 80 08/03/20 20:45 100 22 104/67 (79) 92 08/03/20 20:30 23 120/60 Mechanical Ventilator 80 08/03/20 20:30 112 30 124/73 (90) 86 08/03/20 20:15 113 25 134/70 (91) 55 3/4/21 20:15 23 134/70 Mechanical Ventilator 80 08/03/20 20:00 99.0 97 25 115/68 (84) 76 08/03/20 20:00 106 08/03/20 20:00 23 105/61 Mechanical Ventilator 80 08/03/20 20:00 Mechanical Ventilator 08/03/20 20:00 100 08/03/20 19:17 99 22 80 08/03/20 19:00 96 23 102/63 (76) 94 08/03/20 19:00 22 102/63 Mechanical Ventilator 80 08/03/20 19:00 22 102/63 Mechanical Ventilator 80 08/03/20 18:45 93 23 96/61 (73) 97 08/03/20 18:30 95 21 102/63 (76) 99 08/03/20 18:15 98 22 101/63 (76) 100 08/03/20 18:00 96 21 109/67 (81) 97 08/03/20 18:00 22 109/67 Mechanical Ventilator 80 08/03/20 18:00 22 109/67 Mechanical Ventilator 80 08/03/20 17:45 104 22 94/54 (67) 100 08/03/20 17:30 119 24 112/59 (76) 65 08/03/20 17:15 117 25 117/70 (86) 78 08/03/20 17:00 22 113/70 Mechanical Ventilator 80 08/03/20 17:00 22 113/70 Mechanical Ventilator 80 08/03/20 17:00 114 24 113/70 (84) 99 08/03/20 16:15 85 23 100/63 (75) 98 08/03/20 16:00 80 08/03/20 16:00 Mechanical Ventilator 08/03/20 16:00 23 100/67 Mechanical Ventilator 80 08/03/20 16:00 23 100/67 Mechanical Ventilator 80 08/03/20 16:00 98.7 88 22 100/67 (78) 98 08/03/20 16:00 Mechanical Ventilator 08/03/20 16:00 85 08/03/20 15:45 87 22 105/68 (80) 94 08/03/20 15:30 85 26 99/63 (75) 97 08/03/20 15:15 87 25 97/64 (75) 100 3/4/21 15:00 88 25 98/64 (75) 99 08/03/20 15:00 25 98/56 Mechanical Ventilator 80 08/03/20 15:00 25 98/64 Mechanical Ventilator 80 08/03/20 14:50 83 26 80 08/03/20 14:45 87 26 101/65 (77) 08/03/20 14:30 88 26 93/61 (72) 08/03/20 14:15 90 26 95/60 (72) Intake and Output 08/03/20 08/04/20 19:00 07:00 Intake Total 736.50 ml 1098.75 ml Output Total 1000 ml 960 ml Balance -263.50 ml 138.75 ml Free Water 30 ml 90 ml IV Total 556.50 ml 553.75 ml Tube Feeding 150 ml 455 ml Output Urine Total 950 ml 660 ml Stool Total 50 ml 300 ml # Bowel Movements 2 3 Laboratory Tests 08/04/20 04:20: White Blood Count 13.8H, Red Blood Count 2.84L, Hemoglobin 8.0L, Hematocrit 24.7L, Mean Corpuscular Volume 87, Mean Corpuscular Hemoglobin 28.3, Mean Corpuscular Hemoglobin Concent 32.5, Red Cell Distribution Width 15.2H, Platelet Count 146L, Mean Platelet Volume 9.5, Neutrophils (%) (Auto) , Lymphocytes (%) (Auto) , Monocytes (%) (Auto) , Eosinophils (%) (Auto) , Basophils (%) (Auto) , Differential Total Cells Counted 100, Neutrophils % (Manual) 93H, Lymphocytes % (Manual) 5L, Monocytes % (Manual) 2, Eosinophils % (Manual) 0, Basophils % (Manual) 0, Band Neutrophils 0, Platelet Estimate DecreasedL, Platelet Morphology Normal, Hypochromasia 1+, Anisocytosis 1+, Sodium Level 142, Potassium Level 4.0, Chloride Level 107, Carbon Dioxide Level 29, Anion Gap 6, Blood Urea Nitrogen 29H, Creatinine 0.7, Estimat Glomerular Filtration Rate > 60, Glucose Level 145H, Calcium Level 8.3L, Phosphorus Level 3.5, Magnesium Level 2.0, Total Bilirubin < 0.1L, Aspartate Amino Transf (AST/SGOT) 115H, Alanine Aminotransferase (ALT/SGPT) 97H, Alkaline Phosphatase 65, C-Reactive Protein, Quantitative 3.8H, Pro-B-Type Natriuretic Peptide 601H, Total Protein 4.4L, Albumin 1.4L, Globulin 3.0, Albumin/Globulin Ratio 0.5L 08/04/20 07:53: Arterial Blood pH 7.331L, Arterial Blood Partial Pressure CO2 51.5H, Arterial Blood Partial Pressure O2 60.6L, Arterial Blood HCO3 26.6H, Arterial Blood Oxygen Saturation 87.4*L, Arterial Blood Base Excess 0.3, Timbo Test Positive Height (Feet): 5 Height (Inches): 3.00 Weight (Pounds): 162 Objective No change Anurag Bridges MD Aug 04, 2020 14:08
--- NOTE | 2020-08-04 14:13 | General Progress Note ---
Subjective ROS Limited/Unobtainable: No Allergies: Coded Allergies: No Known Allergies (Unverified , 07/07/20) Subjective no event over night had BM tolerating TF Objective Last 24 Hour Vital Signs Date Time Temp Pulse Resp B/P (MAP) Pulse Ox O2 Delivery O2 Flow Rate FiO2 08/04/20 12:03 88 23 100 08/04/20 12:00 22 103/57 Mechanical Ventilator 100 08/04/20 12:00 22 103/57 Mechanical Ventilator 100 08/04/20 12:00 100 08/04/20 11:00 82 23 91/54 (66) 08/04/20 10:30 81 22 91/58 (69) 08/04/20 10:00 89 15 95/52 (66) 08/04/20 09:30 79 22 90/57 (68) 08/04/20 09:00 80 90/57 08/04/20 09:00 81 18 93/59 (70) 08/04/20 08:30 82 23 93/58 (70) 08/04/20 08:05 100 08/04/20 08:00 100 08/04/20 08:00 85 08/04/20 08:00 98.5 85 24 93/52 (66) 08/04/20 07:30 83 22 93/60 (71) 08/04/20 07:25 84 24 90 08/04/20 07:00 83 22 94/55 (68) 100 08/04/20 06:30 83 22 90/53 (65) 100 08/04/20 06:00 83 22 89/53 (65) 100 08/04/20 06:00 22 92/54 Mechanical Ventilator 90 08/04/20 06:00 22 92/54 Mechanical Ventilator 90 08/04/20 05:30 86 23 93/59 (70) 08/04/20 05:00 89 22 100 08/04/20 05:00 22 97/63 Mechanical Ventilator 100 08/04/20 05:00 22 97/63 Mechanical Ventilator 100 08/04/20 05:00 23 100/60 Mechanical Ventilator 100 08/04/20 05:00 87 22 98/63 (75) 100 08/04/20 04:30 85 22 91/59 (70) 99 08/04/20 04:00 96 08/04/20 04:00 99.0 86 24 95/60 (72) 99 08/04/20 04:00 24 93/55 Mechanical Ventilator 100 08/04/20 04:00 24 93/55 Mechanical Ventilator 100 08/04/20 04:00 Mechanical Ventilator 08/04/20 04:00 100 08/04/20 03:30 88 24 93/59 (70) 99 08/04/20 03:10 101 24 100 08/04/20 03:00 24 95/60 Mechanical Ventilator 100 08/04/20 03:00 25 99/56 Mechanical Ventilator 100 08/04/20 03:00 88 24 101/61 (74) 98 08/04/20 02:45 86 24 96/63 (74) 98 08/04/20 02:30 87 24 99/61 (74) 99 08/04/20 02:15 89 25 99/58 (72) 99 08/04/20 02:00 88 23 103/62 (76) 99 08/04/20 02:00 25 99/58 Mechanical Ventilator 100 08/04/20 02:00 22 99/58 Mechanical Ventilator 08/04/20 01:45 89 23 106/62 (77) 100 08/04/20 01:30 91 22 102/61 (75) 100 08/04/20 01:20 96 27 100 08/04/20 01:00 23 95/60 Mechanical Ventilator 100 08/04/20 01:00 22 107/60 Mechanical Ventilator 100 08/04/20 01:00 96 22 100/57 (71) 100 08/04/20 00:30 95 20 94/58 (70) 100 08/04/20 00:24 23 115/60 Mechanical Ventilator 100 08/04/20 00:00 96 08/04/20 00:00 22 107/76 Mechanical Ventilator 100 08/04/20 00:00 25 99/58 Mechanical Ventilator 100 08/04/20 00:00 99.0 94 25 96/60 (72) 95 08/04/20 00:00 Mechanical Ventilator 08/03/20 23:30 97 23 100/55 (70) 08/03/20 23:17 100 25 100 08/03/20 23:00 101 19 90/53 (65) 89 08/03/20 23:00 24 91/58 Mechanical Ventilator 100 08/03/20 23:00 21 86/50 Mechanical Ventilator 100 08/03/20 22:30 99 25 89/51 (64) 90 08/03/20 22:00 100 23 86/50 (62) 92 08/03/20 22:00 23 110/60 Mechanical Ventilator 100 08/03/20 22:00 22 86/50 Mechanical Ventilator 100 08/03/20 21:56 24 94/62 Mechanical Ventilator 100 08/03/20 21:47 96 23 100 08/03/20 21:45 93 23 94/62 (73) 92 08/03/20 21:30 95 23 98/61 (73) 93 08/03/20 21:00 23 120/60 Mechanical Ventilator 100 08/03/20 21:00 23 110/60 Mechanical Ventilator 90 08/03/20 21:00 91 98/61 08/03/20 21:00 98 22 108/67 (81) 93 08/03/20 20:45 23 120/60 Mechanical Ventilator 80 08/03/20 20:45 100 22 104/67 (79) 92 08/03/20 20:30 23 120/60 Mechanical Ventilator 80 08/03/20 20:30 112 30 124/73 (90) 86 08/03/20 20:15 113 25 134/70 (91) 55 08/03/20 20:15 23 134/70 Mechanical Ventilator 80 08/03/20 20:00 99.0 97 25 115/68 (84) 76 08/03/20 20:00 106 08/03/20 20:00 23 105/61 Mechanical Ventilator 80 08/03/20 20:00 Mechanical Ventilator 08/03/20 20:00 100 08/03/20 19:17 99 22 80 08/03/20 19:00 96 23 102/63 (76) 94 08/03/20 19:00 22 102/63 Mechanical Ventilator 80 08/03/20 19:00 22 102/63 Mechanical Ventilator 80 08/03/20 18:45 93 23 96/61 (73) 97 08/03/20 18:30 95 21 102/63 (76) 99 08/03/20 18:15 98 22 101/63 (76) 100 08/03/20 18:00 96 21 109/67 (81) 97 08/03/20 18:00 22 109/67 Mechanical Ventilator 80 08/03/20 18:00 22 109/67 Mechanical Ventilator 80 08/03/20 17:45 104 22 94/54 (67) 100 08/03/20 17:30 119 24 112/59 (76) 65 08/03/20 17:15 117 25 117/70 (86) 78 08/03/20 17:00 22 113/70 Mechanical Ventilator 80 08/03/20 17:00 22 113/70 Mechanical Ventilator 80 08/03/20 17:00 114 24 113/70 (84) 99 08/03/20 16:15 85 23 100/63 (75) 98 08/03/20 16:00 80 08/03/20 16:00 Mechanical Ventilator 08/03/20 16:00 23 100/67 Mechanical Ventilator 80 08/03/20 16:00 23 100/67 Mechanical Ventilator 80 08/03/20 16:00 98.7 88 22 100/67 (78) 98 08/03/20 16:00 Mechanical Ventilator 08/03/20 16:00 85 08/03/20 15:45 87 22 105/68 (80) 94 08/03/20 15:30 85 26 99/63 (75) 97 08/03/20 15:15 87 25 97/64 (75) 100 08/03/20 15:00 88 25 98/64 (75) 99 08/03/20 15:00 25 98/56 Mechanical Ventilator 80 08/03/20 15:00 25 98/64 Mechanical Ventilator 80 08/03/20 14:50 83 26 80 08/03/20 14:45 87 26 101/65 (77) 08/03/20 14:30 88 26 93/61 (72) 08/03/20 14:15 90 26 95/60 (72) Intake and Output 08/03/20 08/04/20 19:00 07:00 Intake Total 736.50 ml 1098.75 ml Output Total 1000 ml 960 ml Balance -263.50 ml 138.75 ml Free Water 30 ml 90 ml IV Total 556.50 ml 553.75 ml Tube Feeding 150 ml 455 ml Output Urine Total 950 ml 660 ml Stool Total 50 ml 300 ml # Bowel Movements 2 3 Laboratory Tests 08/04/20 04:20: White Blood Count 13.8H, Red Blood Count 2.84L, Hemoglobin 8.0L, Hematocrit 24.7L, Mean Corpuscular Volume 87, Mean Corpuscular Hemoglobin 28.3, Mean Corpuscular Hemoglobin Concent 32.5, Red Cell Distribution Width 15.2H, Platelet Count 146L, Mean Platelet Volume 9.5, Neutrophils (%) (Auto) , Lymphocytes (%) (Auto) , Monocytes (%) (Auto) , Eosinophils (%) (Auto) , Basophils (%) (Auto) , Differential Total Cells Counted 100, Neutrophils % (Manual) 93H, Lymphocytes % (Manual) 5L, Monocytes % (Manual) 2, Eosinophils % (Manual) 0, Basophils % (Manual) 0, Band Neutrophils 0, Platelet Estimate DecreasedL, Platelet Morphology Normal, Hypochromasia 1+, Anisocytosis 1+, Sodium Level 142, Potassium Level 4.0, Chloride Level 107, Carbon Dioxide Level 29, Anion Gap 6, Blood Urea Nitrogen 29H, Creatinine 0.7, Estimat Glomerular Filtration Rate > 60, Glucose Level 145H, Calcium Level 8.3L, Phosphorus Level 3.5, Magnesium Level 2.0, Total Bilirubin < 0.1L, Aspartate Amino Transf (AST/SGOT) 115H, Alanine Aminotransferase (ALT/SGPT) 97H, Alkaline Phosphatase 65, C-Reactive Protein, Quantitative 3.8H, Pro-B-Type Natriuretic Peptide 601H, Total Protein 4.4L, Albumin 1.4L, Globulin 3.0, Albumin/Globulin Ratio 0.5L 08/04/20 07:53: Arterial Blood pH 7.331L, Arterial Blood Partial Pressure CO2 51.5H, Arterial Blood Partial Pressure O2 60.6L, Arterial Blood HCO3 26.6H, Arterial Blood Oxygen Saturation 87.4*L, Arterial Blood Base Excess 0.3, Timbo Test Positive Height (Feet): 5 Height (Inches): 3.00 Weight (Pounds): 162 General Appearance: no apparent distress EENT: normal ENT inspection Neck: supple Cardiovascular: normal rate Respiratory/Chest: decreased breath sounds Abdomen: hypoactive bowel sounds Extremities: non-tender Assessment/Plan Problem List: (1) Dysphagia ICD Codes: R13.10 - Dysphagia, unspecified SNOMED: 44949842, 556137836 (2) COVID-19 virus infection ICD Codes: U07.1 - COVID-19 SNOMED: 624319052 (3) HTN (hypertension) ICD Codes: I10 - Essential (primary) hypertension SNOMED: 38543308 (4) DMII (diabetes mellitus, type 2) ICD Codes: E11.9 - Type 2 diabetes mellitus without complications SNOMED: 47540596 Qualifiers: Qualified Codes: E11.69 - Type 2 diabetes mellitus with other specified complication Status: deteriorating, fever Assessment/Plan: coverage note for dr Malcolm intubated DM control fu pulm and cardiology recs had nose and mouth bleed over night>>> improving NGTF fu H&H Steffen De Luna MD Aug 04, 2020 14:13
--- NOTE | 2020-08-04 15:32 | Cardiology Report ---
APPROVED REPORT EKG Measurement Heart [id number] <Conclusion> Sinus tachycardia Otherwise normal ECG
--- NOTE | 2020-08-04 17:52 | Diagnostic Imaging Report ---
Indication: Bilateral leg pain Technique: Grayscale and duplex images of the bilateral lower extremity veins Comparison: none Findings: Bilaterally, grayscale and duplex images demonstrate no evidence of intraluminal thrombus. Normal phasic Doppler waveforms, demonstrating normal augmentation response and no evidence of valvular insufficiency. Greater saphenous vein(s) and tibial veins are patent. Normal compressibility. Impression: Negative for evidence of lower extremity deep venous thrombosis bilaterally
--- NOTE | 2020-08-04 19:42 | NUR ---
714: Report received from previous RN. Pt remains intubated and sedated. 0800: ABG was done and pt was titrated back to 100% FiO2 due to ABG results. 1000: TIO Lobato at bedside. No new orders. 1200: TIO Howard at bedside. Told to hold lovenox and start SCD if venous dupplex comes back negative. 1400: Spoke to MD Annamarie, no new orders at this time. Made aware pt is still bleeding from oral cavity. Bleeding is moderate. 1938: Report given to LIANA Lynn. RN made aware of wound care mattress that was reordered. RN also made aware of bleeding. Pt remains intubated and sedated. All questions answered. VSS at this time. Tube feeds are at goal. Fernandez and rectal tube remain in place. Care continues.
--- NOTE | 2020-08-04 19:45 | NUR ---
NURSE NOTES: LE:PATIENT SEDATED, RASS SCORE -2, ON ETT TO VENT AC 22/TV 450/FIO2 90%/PEEP 8. O2 SATURATION 945 NOTED, HR 90'S/MIN SR, RIGHT SIDE NASAL PACKING INTACT, NO NASAL BLEEDING STATUS, NO ORAL BLEEDING NOTED AT THIS TIME, OGT INTACT AND PATENT, ONGOING GLUCERNA 1.2 AT 55 ML/HR, RESIDUE 40ML NOTED, KEPT HOB 30 DEGREES AND ASPIRATION PRECAUTION, RECTAL TUBE INTACT AND DARK BROWN COLOR STOOL OUTED, F/C INTACT AND PATENT, NATHANIEL COLOR URINE OUTED, TLC TO RIGHT FEMORAL AND PPL TO LFA, INTACT AND PATENT, ONGOING FENTANYL 200MCG/HR AND VERSED 15MG/HR VIA TLC, ON BED ALARM AND LOCKED, MADE LOWER BED POSITION, CLL LIGHT WITHIN REACH, WILL CONTINUE TO MONITOR.
[2020-08-04] MEDS: Dyna-Hex 2% Top Sol 2oz TOPIC SCH (19:54)
--- NOTE | 2020-08-04 21:30 | NUR ---
NURSE NOTES: PT'S DAUGHTER CALLED THAT PROVIDED PT'S CP AT BEDSIDE, WILL CONTINUE TO MONITOR.
[2020-08-05] VITALS (60 sets, daily range): BP systolic 86–153; BP diastolic 48–92
--- NOTE | 2020-08-05 00:10 | NUR ---
NURSE NOTES: PATIENT SEDATED, RASS SCORE -2, NO PAIN OR SOB NOTED.
[2020-08-05] MEDS: fentaNYL 2500mcg/NS 250ml 250 ML IV PRN ×3 (00:23→17:16)
[2020-08-05] MEDS: Versed 100mg/NS 200ml 200 ML IV PRN ×5 (01:05→23:02)
--- NOTE | 2020-08-05 02:30 | NUR ---
NURSE NOTES: NO ACUTE DISTRESS NOTED AT THIS TIME.
--- NOTE | 2020-08-05 04:09 | NUR ---
NURSE NOTES: PATIENT SEDATED WITH FENTANYL 300MCG/HR AND VERSED 20MG/HR, KEPT RASS SCORE -2, WILL CONTINUE TO MONITOR.
[2020-08-05] MEDS: Solu-MEDROL 40mg Inj IVP SCH ×3 (05:30→17:05)
[2020-08-05] MEDS: NovoLOG Insulin Flexpen SUBQ SCH ×3 (05:31→17:06)
--- NOTE | 2020-08-05 06:20 | NUR ---
NURSE NOTES: VSS, O2 SATURATION 94% ON FIO2 100% VENT, WILL CONTINUE TO MONITOR.
[2020-08-05 06:29] LABS: HEMATOCRIT 25.5 % (37.0-47.0); MEAN CORPUSCULAR VOLUME 89 FL (80-99); PLATELET COUNT 137 K/UL (150-450); RED BLOOD COUNT 2.86 M/UL (4.20-5.40); RED CELL DISTRIBUTION WIDTH 14.8 % (11.6-14.8); WHITE BLOOD COUNT 16.1 K/UL (4.8-10.8)
--- NOTE | 2020-08-05 07:25 | NUR ---
RESPIRATORY NOTE: PT received on mechanical ventilation with current ventilator settings: AC/VC 22, 450, 100%, +8. Alarms are on and audible. Airway is secure and patent. Ventilator circuit is secure and out of the way. No s/s of acute respiratory distress noted at this time. Will continue to closely monitor.
--- NOTE | 2020-08-05 07:26 | NUR ---
NURSE HAND-OFF REPORT: Latest Vital Signs: Temperature 98.4 , Pulse 121 , B/P 111 /55 , Respiratory Rate 22 , O2 SAT 100 , Mechanical Ventilator, O2 Flow Rate . Vital Sign Comment: EKG Rhythm: Sinus Tachycardia Rhythm change?: N MD Notified?: N - MD Response: Latest Plaza Fall Score: 50 Fall Risk: High Risk Safety Measures: Call light Within Reach, Bed Alarm Zone 3, Side Rails Side Rails x2, Bed position Low and Locked. Fall Precautions: Yellow Socks Yellow Gown Door Sign Patient Fall Education Report given to LIANA RAPHAEL.
--- NOTE | 2020-08-05 07:27 | NUR ---
NURSE NOTES: Received pt orally intubated. Vent dependent fiO2 100%., on ac mode, sedated with Fentanyl at 300mcg/min, Versed drip at 20mg/hr. with oGT feeding as tolerated. joseph in place. bed lowest position. will continue plan of care.
--- NOTE | 2020-08-05 08:00 | NUR ---
RESPIRATORY NOTE: ABG drawn at this time. Results reported to Iesha GAINES.
--- NOTE | 2020-08-05 08:30 | NUR ---
NURSE NOTES: Dr. Lopez at bedside.
[2020-08-05] MEDS: Cefepime HCl 2 GM in D5W 55 ML IVPB SCH ×2 (08:40→21:45)
[2020-08-05] MEDS: Enoxaparin 80mg Inj SUBQ SCH ×2 (08:48→21:00)
--- NOTE | 2020-08-05 09:00 | General Progress Note ---
Subjective ROS Limited/Unobtainable: No Allergies: Coded Allergies: No Known Allergies (Unverified , 07/07/20) Subjective no event over night diarrhea tolerating TF Objective Last 24 Hour Vital Signs Date Time Temp Pulse Resp B/P (MAP) Pulse Ox O2 Delivery O2 Flow Rate FiO2 08/05/20 08:55 22 111/68 Mechanical Ventilator 100 08/05/20 08:45 89 23 111/68 (82) 90 08/05/20 08:30 90 22 102/64 (77) 95 08/05/20 08:15 90 22 90/57 (68) 98 08/05/20 08:00 97.0 85 22 107/70 (82) 100 08/05/20 08:00 Mechanical Ventilator 08/05/20 08:00 100 08/05/20 08:00 86 08/05/20 07:00 22 111/55 Mechanical Ventilator 100 08/05/20 07:00 22 111/55 Mechanical Ventilator 100 08/05/20 07:00 121 22 111/55 (73) 100 08/05/20 06:15 89 20 91/60 (70) 94 08/05/20 06:11 25 86/52 Mechanical Ventilator 100 08/05/20 06:00 21 86/52 Mechanical Ventilator 100 08/05/20 06:00 21 86/52 Mechanical Ventilator 100 08/05/20 06:00 90 21 86/52 (63) 94 08/05/20 05:30 87 22 94/60 (71) 94 08/05/20 05:07 86 22 100 08/05/20 05:00 21 95/63 Mechanical Ventilator 100 08/05/20 05:00 21 95/63 Mechanical Ventilator 100 08/05/20 05:00 85 21 95/63 (74) 94 08/05/20 04:30 87 23 90/57 (68) 94 08/05/20 04:00 Mechanical Ventilator 08/05/20 04:00 91 08/05/20 04:00 22 93/59 Non-Rebreather 100 08/05/20 04:00 22 93/59 Mechanical Ventilator 100 08/05/20 04:00 100 08/05/20 04:00 98.4 91 22 93/59 (70) 94 08/05/20 03:30 92 24 95/56 (69) 94 08/05/20 03:03 98 22 100 08/05/20 03:00 94 25 93/54 (67) 95 08/05/20 03:00 25 93/54 Mechanical Ventilator 100 08/05/20 03:00 25 93/54 Mechanical Ventilator 100 08/05/20 02:45 24 91/57 Mechanical Ventilator 100 08/05/20 02:45 96 24 91/57 (68) 95 08/05/20 02:30 21 87/56 Mechanical Ventilator 100 08/05/20 02:30 92 21 87/56 (66) 94 08/05/20 02:15 22 96/61 Mechanical Ventilator 100 08/05/20 02:15 95 22 96/61 (73) 95 08/05/20 02:00 98 22 100/62 (75) 96 08/05/20 02:00 22 102/62 Mechanical Ventilator 100 08/05/20 02:00 22 102/62 Mechanical Ventilator 100 08/05/20 01:45 99 22 101/69 (80) 99 08/05/20 01:45 22 101/69 Mechanical Ventilator 100 08/05/20 01:45 22 101/69 Mechanical Ventilator 100 08/05/20 01:30 22 101/64 Mechanical Ventilator 100 08/05/20 01:30 22 101/64 Mechanical Ventilator 100 08/05/20 01:30 99 22 101/64 (76) 100 08/05/20 01:26 99 22 100 08/05/20 01:24 105 22 109/66 (80) 96 08/05/20 01:15 25 142/84 Mechanical Ventilator 100 08/05/20 01:15 25 142/84 Mechanical Ventilator 100 08/05/20 01:15 115 25 142/84 (103) 54 08/05/20 01:05 25 93/65 Mechanical Ventilator 100 08/05/20 01:00 23 93/65 Mechanical Ventilator 100 08/05/20 01:00 94 23 93/65 (74) 84 08/05/20 00:23 26 96/62 Mechanical Ventilator 100 08/05/20 00:00 97.6 100 23 98/65 (76) 93 08/05/20 00:00 100 08/05/20 00:00 23 98/65 Mechanical Ventilator 100 08/05/20 00:00 100 08/05/20 00:00 Mechanical Ventilator 08/04/20 23:45 101 22 101/67 (78) 93 08/04/20 23:30 101 22 101/66 (78) 94 08/04/20 23:20 112 22 100 08/04/20 23:15 119 24 120/64 (82) 81 08/04/20 23:00 115 23 107/67 (80) 78 08/04/20 23:00 23 107/67 Mechanical Ventilator 100 08/04/20 23:00 23 107/67 Mechanical Ventilator 100 08/04/20 22:45 25 128/72 Mechanical Ventilator 100 08/04/20 22:45 25 128/72 Mechanical Ventilator 100 08/04/20 22:45 111 25 128/72 (90) 62 08/04/20 22:30 104 24 105/64 (78) 99 08/04/20 22:15 109 22 111/68 (82) 99 08/04/20 22:00 24 110/66 Mechanical Ventilator 100 08/04/20 22:00 24 100/66 Mechanical Ventilator 100 08/04/20 22:00 109 24 110/66 (81) 99 08/04/20 21:45 114 22 112/66 (81) 93 08/04/20 21:30 122 24 127/68 (87) 90 08/04/20 21:00 97 25 107/70 (82) 94 08/04/20 21:00 25 107/70 Mechanical Ventilator 100 08/04/20 21:00 25 107/70 Mechanical Ventilator 100 08/04/20 20:45 100 111/64 08/04/20 20:40 100 08/04/20 20:38 104 22 100 08/04/20 20:30 98 22 111/64 (80) 94 08/04/20 20:00 97.5 96 26 96/60 (72) 94 08/04/20 20:00 Mechanical Ventilator 08/04/20 20:00 26 96/60 Mechanical Ventilator 90 08/04/20 20:00 26 96/60 Mechanical Ventilator 90 08/04/20 20:00 90 08/04/20 20:00 96 08/04/20 19:30 98 22 90/55 (67) 98 08/04/20 19:01 99 22 90 08/04/20 19:00 99 22 98/63 (75) 98 08/04/20 19:00 22 98/63 Mechanical Ventilator 100 08/04/20 19:00 22 98/63 Mechanical Ventilator 100 3/5/21 18:34 26 154/92 Mechanical Ventilator 100 08/04/20 18:30 110 22 89/56 (67) 96 08/04/20 18:00 26 154/92 Mechanical Ventilator 100 08/04/20 18:00 26 154/92 Mechanical Ventilator 100 08/04/20 18:00 133 23 154/92 (112) 99 08/04/20 17:00 22 109/64 Mechanical Ventilator 100 08/04/20 17:00 22 109/64 Mechanical Ventilator 100 08/04/20 17:00 100 23 118/64 (82) 99 08/04/20 16:30 97 23 116/70 (85) 96 08/04/20 16:00 100 08/04/20 16:00 Mechanical Ventilator 08/04/20 16:00 22 109/64 Mechanical Ventilator 100 08/04/20 16:00 22 109/64 Mechanical Ventilator 100 08/04/20 16:00 100 08/04/20 16:00 98.2 24 109/64 (79) 100 08/04/20 15:30 16 100/60 (73) 99 08/04/20 15:00 22 99/56 Mechanical Ventilator 100 08/04/20 15:00 22 99/56 Mechanical Ventilator 100 08/04/20 15:00 86 24 99/56 (70) 08/04/20 14:30 89 22 104/64 (77) 100 08/04/20 14:00 22 117/83 Mechanical Ventilator 100 08/04/20 14:00 22 117/83 Mechanical Ventilator 100 08/04/20 14:00 89 27 117/83 (94) 99 08/04/20 13:30 83 22 97/60 (72) 99 08/04/20 13:00 86 25 106/60 (75) 96 08/04/20 13:00 22 106/60 Mechanical Ventilator 100 08/04/20 13:00 22 106/60 Mechanical Ventilator 100 08/04/20 12:30 84 22 97/61 (73) 97 08/04/20 12:03 88 23 100 08/04/20 12:00 87 08/04/20 12:00 Mechanical Ventilator 08/04/20 12:00 98.2 88 22 103/57 (72) 95 08/04/20 12:00 22 103/57 Mechanical Ventilator 100 08/04/20 12:00 22 103/57 Mechanical Ventilator 100 08/04/20 12:00 100 08/04/20 11:30 91 22 100/56 (71) 100 08/04/20 11:00 82 23 91/54 (66) 95 08/04/20 11:00 22 103/57 Mechanical Ventilator 100 08/04/20 11:00 22 103/57 Mechanical Ventilator 100 08/04/20 10:30 81 22 91/58 (69) 100 08/04/20 10:00 22 91/54 Mechanical Ventilator 100 08/04/20 10:00 22 91/54 Mechanical Ventilator 100 08/04/20 10:00 89 15 95/52 (66) 97 08/04/20 09:30 79 22 90/57 (68) 100 08/04/20 09:00 22 93/59 Mechanical Ventilator 100 08/04/20 09:00 22 93/59 Mechanical Ventilator 100 08/04/20 09:00 80 90/57 08/04/20 09:00 81 18 93/59 (70) 99 Intake and Output 08/04/20 08/05/20 19:00 07:00 Intake Total 1320 ml 1239.25 ml Output Total 640 ml 890 ml Balance 680 ml 349.25 ml Free Water 110 ml IV Total 550 ml 749.25 ml Tube Feeding 660 ml 440 ml Other 50 ml Output Urine Total 640 ml 840 ml Stool Total 50 ml # Bowel Movements 76 Laboratory Tests 08/05/20 05:30: White Blood Count 16.1H, Red Blood Count 2.86L, Hemoglobin 8.0L, Hematocrit 25.5L, Mean Corpuscular Volume 89, Mean Corpuscular Hemoglobin 28.0, Mean Corpuscular Hemoglobin Concent 31.4L, Red Cell Distribution Width 14.8, Platelet Count 137L, Mean Platelet Volume 8.2, Neutrophils (%) (Auto) , Lymphocytes (%) (Auto) , Monocytes (%) (Auto) , Eosinophils (%) (Auto) , Basophils (%) (Auto) , Differential Total Cells Counted 100, Neutrophils % (Manual) 95H, Lymphocytes % (Manual) 3L, Monocytes % (Manual) 2, Eosinophils % (Manual) 0, Basophils % (Manual) 0, Band Neutrophils 0, Platelet Estimate DecreasedL, Platelet Morphology Normal, Hypochromasia 1+, Anisocytosis 1+ 08/05/20 08:00: Arterial Blood pH 7.314L, Arterial Blood Partial Pressure CO2 52.9H, Arterial Blood Partial Pressure O2 68.8L, Arterial Blood HCO3 26.3H, Arterial Blood Oxygen Saturation 90.2L, Arterial Blood Base Excess -0.2, Timbo Test Positive Height (Feet): 5 Height (Inches): 3.00 Weight (Pounds): 162 General Appearance: no apparent distress EENT: normal ENT inspection Neck: supple Cardiovascular: normal rate Respiratory/Chest: decreased breath sounds Abdomen: normal bowel sounds, non tender, soft Extremities: non-tender Assessment/Plan Problem List: (1) Dysphagia ICD Codes: R13.10 - Dysphagia, unspecified SNOMED: 24690099, 612838447 (2) COVID-19 virus infection ICD Codes: U07.1 - COVID-19 SNOMED: 334750629 (3) HTN (hypertension) ICD Codes: I10 - Essential (primary) hypertension SNOMED: 24807752 (4) DMII (diabetes mellitus, type 2) ICD Codes: E11.9 - Type 2 diabetes mellitus without complications SNOMED: 82128424 Qualifiers: Qualified Codes: E11.69 - Type 2 diabetes mellitus with other specified complication Status: deteriorating, fever Assessment/Plan: coverage note for dr Malcolm intubated DM control fu pulm and cardiology recs NGTF dc colace now has rectal tube still on 100 %o2 Steffen De Luna MD Aug 05, 2020 09:00
[2020-08-05] MEDS: Levemir Flexpen SUBQ SCH ×2 (09:10→21:53)
--- NOTE | 2020-08-05 09:24 | NUR ---
NURSE NOTES: TIO Delatorre at bedside.
[2020-08-05] MEDS: Norepinephrine 4mg/NS Premix 250 ML IV PRN (10:33)
--- NOTE | 2020-08-05 10:49 | NUR ---
RESPIRATORY NOTE: PIP alarm increased to 60 due to high peak pressure. Iesha RN notified that peak pressure has increased. PT was sx and repositioned. No improvement in peak pressure. Will continue to monitor.
--- NOTE | 2020-08-05 11:58 | Pulmonology Progress Note ---
Subjective ROS Limited/Unobtainable: No Interval Events: S/p intubation Constitutional: Denies: fever HEENT: Repors: no symptoms Respiratory: Reports: shortness of breath Gastrointestinal/Abdominal: Reports: no symptoms Psychiatric: Reports: no symptoms Skin: Reports: no symptoms Musculoskeletal: Reports: no symptoms Allergies: Coded Allergies: No Known Allergies (Unverified , 07/07/20) Objective Last 24 Hour Vital Signs Date Time Temp Pulse Resp B/P (MAP) Pulse Ox O2 Delivery O2 Flow Rate FiO2 08/05/20 11:41 22 106/70 Mechanical Ventilator 100 08/05/20 11:30 85 22 106/70 (82) 95 08/05/20 11:15 88 22 111/72 (85) 95 08/05/20 11:00 97 22 107/66 (80) 97 08/05/20 10:49 100 22 100 08/05/20 10:45 119 19 129/73 (91) 75 08/05/20 10:40 108 19 133/70 (91) 84 08/05/20 10:33 89/49 08/05/20 10:30 101 23 89/49 (62) 08/05/20 10:15 103 26 90/48 (62) 97 08/05/20 10:00 102 24 97/51 (66) 99 08/05/20 10:00 24 97/51 Mechanical Ventilator 100 08/05/20 10:00 24 97/51 Mechanical Ventilator 100 08/05/20 09:45 97 23 108/64 (79) 100 08/05/20 09:30 91 22 112/69 (83) 99 08/05/20 09:19 91 22 100 08/05/20 09:15 92 22 114/70 (85) 95 08/05/20 09:00 22 153/90 Mechanical Ventilator 100 08/05/20 09:00 22 153/90 Mechanical Ventilator 100 08/05/20 09:00 88 22 153/90 (111) 94 08/05/20 08:55 22 111/68 Mechanical Ventilator 100 08/05/20 08:45 89 23 111/68 (82) 90 08/05/20 08:30 90 22 102/64 (77) 95 08/05/20 08:15 90 22 90/57 (68) 98 08/05/20 08:00 97.0 85 22 107/70 (82) 100 08/05/20 08:00 22 107/70 Mechanical Ventilator 100 08/05/20 08:00 22 107/70 Mechanical Ventilator 100 08/05/20 08:00 Mechanical Ventilator 08/05/20 08:00 100 08/05/20 08:00 86 08/05/20 07:54 88 08/05/20 07:25 95 22 100 08/05/20 07:00 22 111/55 Mechanical Ventilator 100 08/05/20 07:00 22 111/55 Mechanical Ventilator 100 08/05/20 07:00 121 22 111/55 (73) 100 08/05/20 06:15 89 20 91/60 (70) 94 08/05/20 06:11 25 86/52 Mechanical Ventilator 100 08/05/20 06:00 21 86/52 Mechanical Ventilator 100 08/05/20 06:00 21 86/52 Mechanical Ventilator 100 08/05/20 06:00 90 21 86/52 (63) 94 08/05/20 05:30 87 22 94/60 (71) 94 08/05/20 05:07 86 22 100 08/05/20 05:00 21 95/63 Mechanical Ventilator 100 08/05/20 05:00 21 95/63 Mechanical Ventilator 100 08/05/20 05:00 85 21 95/63 (74) 94 08/05/20 04:30 87 23 90/57 (68) 94 08/05/20 04:00 Mechanical Ventilator 08/05/20 04:00 91 08/05/20 04:00 22 93/59 Non-Rebreather 100 08/05/20 04:00 22 93/59 Mechanical Ventilator 100 08/05/20 04:00 100 08/05/20 04:00 98.4 91 22 93/59 (70) 94 08/05/20 03:30 92 24 95/56 (69) 94 08/05/20 03:03 98 22 100 08/05/20 03:00 94 25 93/54 (67) 95 08/05/20 03:00 25 93/54 Mechanical Ventilator 100 08/05/20 03:00 25 93/54 Mechanical Ventilator 100 08/05/20 02:45 24 91/57 Mechanical Ventilator 100 08/05/20 02:45 96 24 91/57 (68) 95 08/05/20 02:30 21 87/56 Mechanical Ventilator 100 08/05/20 02:30 92 21 87/56 (66) 94 08/05/20 02:15 22 96/61 Mechanical Ventilator 100 08/05/20 02:15 95 22 96/61 (73) 95 08/05/20 02:00 98 22 100/62 (75) 96 08/05/20 02:00 22 102/62 Mechanical Ventilator 100 08/05/20 02:00 22 102/62 Mechanical Ventilator 100 08/05/20 01:45 99 22 101/69 (80) 99 08/05/20 01:45 22 101/69 Mechanical Ventilator 100 08/05/20 01:45 22 101/69 Mechanical Ventilator 100 08/05/20 01:30 22 101/64 Mechanical Ventilator 100 08/05/20 01:30 22 101/64 Mechanical Ventilator 100 08/05/20 01:30 99 22 101/64 (76) 100 08/05/20 01:26 99 22 100 08/05/20 01:24 105 22 109/66 (80) 96 08/05/20 01:15 25 142/84 Mechanical Ventilator 100 08/05/20 01:15 25 142/84 Mechanical Ventilator 100 08/05/20 01:15 115 25 142/84 (103) 54 08/05/20 01:05 25 93/65 Mechanical Ventilator 100 08/05/20 01:00 23 93/65 Mechanical Ventilator 100 08/05/20 01:00 94 23 93/65 (74) 84 08/05/20 00:23 26 96/62 Mechanical Ventilator 100 08/05/20 00:00 97.6 100 23 98/65 (76) 93 08/05/20 00:00 100 08/05/20 00:00 23 98/65 Mechanical Ventilator 100 08/05/20 00:00 100 08/05/20 00:00 Mechanical Ventilator 08/04/20 23:45 101 22 101/67 (78) 93 08/04/20 23:30 101 22 101/66 (78) 94 08/04/20 23:20 112 22 100 08/04/20 23:15 119 24 120/64 (82) 81 08/04/20 23:00 115 23 107/67 (80) 78 08/04/20 23:00 23 107/67 Mechanical Ventilator 100 08/04/20 23:00 23 107/67 Mechanical Ventilator 100 08/04/20 22:45 25 128/72 Mechanical Ventilator 100 08/04/20 22:45 25 128/72 Mechanical Ventilator 100 08/04/20 22:45 111 25 128/72 (90) 62 08/04/20 22:30 104 24 105/64 (78) 99 08/04/20 22:15 109 22 111/68 (82) 99 08/04/20 22:00 24 110/66 Mechanical Ventilator 100 08/04/20 22:00 24 100/66 Mechanical Ventilator 100 08/04/20 22:00 109 24 110/66 (81) 99 08/04/20 21:45 114 22 112/66 (81) 93 08/04/20 21:30 122 24 127/68 (87) 90 08/04/20 21:00 97 25 107/70 (82) 94 08/04/20 21:00 25 107/70 Mechanical Ventilator 100 08/04/20 21:00 25 107/70 Mechanical Ventilator 100 08/04/20 20:45 100 111/64 08/04/20 20:40 100 08/04/20 20:38 104 22 100 08/04/20 20:30 98 22 111/64 (80) 94 08/04/20 20:00 97.5 96 26 96/60 (72) 94 08/04/20 20:00 Mechanical Ventilator 08/04/20 20:00 26 96/60 Mechanical Ventilator 90 08/04/20 20:00 26 96/60 Mechanical Ventilator 90 08/04/20 20:00 90 08/04/20 20:00 96 08/04/20 19:30 98 22 90/55 (67) 98 08/04/20 19:01 99 22 90 08/04/20 19:00 99 22 98/63 (75) 98 08/04/20 19:00 22 98/63 Mechanical Ventilator 100 08/04/20 19:00 22 98/63 Mechanical Ventilator 100 08/04/20 18:34 26 154/92 Mechanical Ventilator 100 08/04/20 18:30 110 22 89/56 (67) 96 08/04/20 18:00 26 154/92 Mechanical Ventilator 100 08/04/20 18:00 26 154/92 Mechanical Ventilator 100 08/04/20 18:00 133 23 154/92 (112) 99 3/5/21 17:00 22 109/64 Mechanical Ventilator 100 08/04/20 17:00 22 109/64 Mechanical Ventilator 100 08/04/20 17:00 100 23 118/64 (82) 99 08/04/20 16:30 97 23 116/70 (85) 96 08/04/20 16:00 100 08/04/20 16:00 Mechanical Ventilator 08/04/20 16:00 22 109/64 Mechanical Ventilator 100 08/04/20 16:00 22 109/64 Mechanical Ventilator 100 08/04/20 16:00 100 08/04/20 16:00 98.2 24 109/64 (79) 100 08/04/20 15:30 16 100/60 (73) 99 08/04/20 15:00 22 99/56 Mechanical Ventilator 100 08/04/20 15:00 22 99/56 Mechanical Ventilator 100 08/04/20 15:00 86 24 99/56 (70) 08/04/20 14:30 89 22 104/64 (77) 100 08/04/20 14:00 22 117/83 Mechanical Ventilator 100 08/04/20 14:00 22 117/83 Mechanical Ventilator 100 08/04/20 14:00 89 27 117/83 (94) 99 08/04/20 13:30 83 22 97/60 (72) 99 08/04/20 13:00 86 25 106/60 (75) 96 08/04/20 13:00 22 106/60 Mechanical Ventilator 100 08/04/20 13:00 22 106/60 Mechanical Ventilator 100 08/04/20 12:30 84 22 97/61 (73) 97 08/04/20 12:03 88 23 100 08/04/20 12:00 87 08/04/20 12:00 Mechanical Ventilator 08/04/20 12:00 98.2 88 22 103/57 (72) 95 08/04/20 12:00 22 103/57 Mechanical Ventilator 100 08/04/20 12:00 22 103/57 Mechanical Ventilator 100 08/04/20 12:00 100 Intake and Output 08/04/20 08/05/20 19:00 07:00 Intake Total 1320 ml 1239.25 ml Output Total 640 ml 890 ml Balance 680 ml 349.25 ml Free Water 110 ml IV Total 550 ml 749.25 ml Tube Feeding 660 ml 440 ml Other 50 ml Output Urine Total 640 ml 840 ml Stool Total 50 ml # Bowel Movements 76 General Appearance: no acute distress HEENT: normocephalic Respiratory: decreased breath sounds Cardiovascular: normal peripheral pulses Abdomen: normal bowel sounds Laboratory Tests 08/05/20 05:30: White Blood Count 16.1H, Red Blood Count 2.86L, Hemoglobin 8.0L, Hematocrit 25.5L, Mean Corpuscular Volume 89, Mean Corpuscular Hemoglobin 28.0, Mean Corpuscular Hemoglobin Concent 31.4L, Red Cell Distribution Width 14.8, Platelet Count 137L, Mean Platelet Volume 8.2, Neutrophils (%) (Auto) , Lymphocytes (%) (Auto) , Monocytes (%) (Auto) , Eosinophils (%) (Auto) , Basophils (%) (Auto) , Differential Total Cells Counted 100, Neutrophils % (Manual) 95H, Lymphocytes % (Manual) 3L, Monocytes % (Manual) 2, Eosinophils % (Manual) 0, Basophils % (Manual) 0, Band Neutrophils 0, Platelet Estimate DecreasedL, Platelet Morphology Normal, Hypochromasia 1+, Anisocytosis 1+ 08/05/20 08:00: Arterial Blood pH 7.314L, Arterial Blood Partial Pressure CO2 52.9H, Arterial Blood Partial Pressure O2 68.8L, Arterial Blood HCO3 26.3H, Arterial Blood Oxygen Saturation 90.2L, Arterial Blood Base Excess -0.2, Timbo Test Positive Current Medications Medications (Trade) Dose Ordered Sig/Marian Route PRN Reason Start Time Stop Time Status Last Admin Dose Admin Acetaminophen (Tylenol) 650 mg Q4H PRN RECTAL Temp >100.5 07/18/20 18:30 08/17/20 18:29 08/01/20 16:50 Acetaminophen (Tylenol) 650 mg Q6H PRN ORAL For Pain 07/07/20 15:45 08/06/20 15:44 08/02/20 18:59 Acetaminophen (Tylenol) 650 mg Q6H PRN ORAL FEVER 07/07/20 16:15 08/06/20 16:14 07/30/20 12:36 Benzonatate (Tessalon Perles) 100 mg TIDPRN PRN ORAL For Cough 07/18/20 18:30 08/17/20 18:29 Cefepime HCl 2 gm/ Dextrose 55 ml @ 110 mls/hr Q12HR IVPB 07/22/20 13:00 08/10/20 12:59 08/05/20 08:40 Chlorhexidine Gluconate (Rafaela-Hex 2%) 1 applic DAILY@2000 TOPIC 08/01/20 20:00 10/30/20 19:59 08/04/20 19:54 Dextrose (Dextrose 50%) 25 ml Q30M PRN IV Hypoglycemia 07/07/20 15:45 10/05/20 15:44 Dextrose (Dextrose 50%) 50 ml Q30M PRN IV Hypoglycemia 07/07/20 15:45 10/05/20 15:44 Enoxaparin Sodium (Lovenox) 70 mg EVERY 12 HOURS SUBQ 07/25/20 21:00 10/23/20 20:59 08/01/20 21:23 Famotidine (Pepcid I.v.) 20 mg Q12HR IVP 07/20/20 09:00 08/19/20 08:59 08/05/20 08:35 Fentanyl Citrate 250 ml @ 1 mls/hr Q24H PRN IV SEDATION 08/05/20 00:00 08/07/20 00:00 08/05/20 08:55 Insulin Aspart (NovoLOG) Q6HR SUBQ 07/26/20 12:00 10/24/20 11:59 08/05/20 05:31 Insulin Detemir (Levemir) 30 units Q12HR SUBQ 08/01/20 21:00 10/24/20 10:29 08/05/20 09:10 Methylprednisolone Sodium Succinate (Solu-MEDROL) 20 mg EVERY 6 HOURS IVP 07/22/20 12:00 10/19/20 08:59 08/05/20 05:30 Metoprolol Tartrate (Lopressor) 25 mg EVERY 12 HOURS NG 07/26/20 21:00 10/24/20 20:59 08/04/20 20:45 Midazolam HCl 200 ml @ 0 mls/hr Q24H PRN IV Agitation 08/05/20 22:45 08/12/20 22:44 UNV Norepinephrine Bitartrate 250 ml @ 0 mls/hr Q24H PRN IV For hypotension 08/05/20 08:00 08/08/20 07:47 08/05/20 10:33 Sorbitol (sorbitoL) 45 ml Q12HR PRN ORAL Constipation 07/30/20 09:15 08/29/20 09:14 Assessment/Plan Assessment/Plan 1. COVID-19 pneumonia. - COVID-19 PCR positive (07/07) - s/p remdexsivir - s/p azithromycin - CXR (07/13) no significant change - f/u rapid COVID-19 (07/31) negative -> now off isolation 2. Hypoxemic respiratory distress - s/p decadron (07/08-07/17) - now on Solu-Medrol - intubated; on AC mode - FiO2 100 -> 80-> 100%; continue PEEP 7->8 -> 10-> 8 - episodically desaturates to 70% 3. Hypertension. - Required central line 08/01/20 -on Levophed 4. Diabetes mellitus. -on insulin sliding scale 5. DVT ppx - on Lovenox, full dose empirically; on hold now due to epistaxis - will get V/D US -> SCD if negative 6. Sputum Cx shows pseudomonas and cony - continue cefepime per ID 7. Suspect bacterial infection given leukocytosis - s/p Diflucan - On Cefepime - s/p IV Vanco - s/p IV Bactrim for possible PJP 8. Pulmonary edema -Off lasix gtt Discussed with bedside RN. No further epistaxis and oral bleeding Hold Lovenox Will give FFP Transfuse prn On Vu Pierre MD Aug 05, 2020 11:58
--- NOTE | 2020-08-05 12:21 | Infectious Diseases Prog Note ---
Assessment/Plan Assessment/Plan A: 1. COVID-19 pneumonia. 2. Pseudomonas pneumonia. 3. Respiratory failure with hypoxemia & hypercapnia 4. Leukocytosis 5. DM 6. Epistaxis PLAN: 1. Continue cefepime X 3 days 2. Continue Solu-Medrol. 3. Case was D/W RN Subjective ROS Limited/Unobtainable: Yes Constitutional: Denies: fever Cardiovascular: Reports: other - on Low dose Levophed Allergies: Coded Allergies: No Known Allergies (Unverified , 07/07/20) Objective Last 24 Hour Vital Signs Date Time Temp Pulse Resp B/P (MAP) Pulse Ox O2 Delivery O2 Flow Rate FiO2 08/05/20 12:00 100 08/05/20 12:00 Mechanical Ventilator 08/05/20 11:41 22 106/70 Mechanical Ventilator 100 08/05/20 11:30 85 22 106/70 (82) 95 08/05/20 11:15 88 22 111/72 (85) 95 08/05/20 11:00 97 22 107/66 (80) 97 08/05/20 11:00 22 107/66 Mechanical Ventilator 100 08/05/20 11:00 22 107/66 Mechanical Ventilator 100 08/05/20 10:49 100 22 100 08/05/20 10:45 119 19 129/73 (91) 75 08/05/20 10:40 108 19 133/70 (91) 84 08/05/20 10:33 89/49 08/05/20 10:30 101 23 89/49 (62) 08/05/20 10:15 103 26 90/48 (62) 97 08/05/20 10:00 102 24 97/51 (66) 99 08/05/20 10:00 24 97/51 Mechanical Ventilator 100 08/05/20 10:00 24 97/51 Mechanical Ventilator 100 08/05/20 09:45 97 23 108/64 (79) 100 08/05/20 09:30 91 22 112/69 (83) 99 08/05/20 09:19 91 22 100 08/05/20 09:15 92 22 114/70 (85) 95 08/05/20 09:00 22 153/90 Mechanical Ventilator 100 08/05/20 09:00 22 153/90 Mechanical Ventilator 100 08/05/20 09:00 88 22 153/90 (111) 94 08/05/20 08:55 22 111/68 Mechanical Ventilator 100 08/05/20 08:45 89 23 111/68 (82) 90 08/05/20 08:30 90 22 102/64 (77) 95 08/05/20 08:15 90 22 90/57 (68) 98 08/05/20 08:00 97.0 85 22 107/70 (82) 100 08/05/20 08:00 22 107/70 Mechanical Ventilator 100 08/05/20 08:00 22 107/70 Mechanical Ventilator 100 08/05/20 08:00 Mechanical Ventilator 08/05/20 08:00 100 08/05/20 08:00 86 08/05/20 07:54 88 08/05/20 07:25 95 22 100 08/05/20 07:00 22 111/55 Mechanical Ventilator 100 08/05/20 07:00 22 111/55 Mechanical Ventilator 100 08/05/20 07:00 121 22 111/55 (73) 100 08/05/20 06:15 89 20 91/60 (70) 94 08/05/20 06:11 25 86/52 Mechanical Ventilator 100 08/05/20 06:00 21 86/52 Mechanical Ventilator 100 08/05/20 06:00 21 86/52 Mechanical Ventilator 100 08/05/20 06:00 90 21 86/52 (63) 94 08/05/20 05:30 87 22 94/60 (71) 94 08/05/20 05:07 86 22 100 08/05/20 05:00 21 95/63 Mechanical Ventilator 100 08/05/20 05:00 21 95/63 Mechanical Ventilator 100 08/05/20 05:00 85 21 95/63 (74) 94 08/05/20 04:30 87 23 90/57 (68) 94 08/05/20 04:00 Mechanical Ventilator 08/05/20 04:00 91 08/05/20 04:00 22 93/59 Non-Rebreather 100 08/05/20 04:00 22 93/59 Mechanical Ventilator 100 08/05/20 04:00 100 08/05/20 04:00 98.4 91 22 93/59 (70) 94 08/05/20 03:30 92 24 95/56 (69) 94 08/05/20 03:03 98 22 100 08/05/20 03:00 94 25 93/54 (67) 95 08/05/20 03:00 25 93/54 Mechanical Ventilator 100 08/05/20 03:00 25 93/54 Mechanical Ventilator 100 08/05/20 02:45 24 91/57 Mechanical Ventilator 100 08/05/20 02:45 96 24 91/57 (68) 95 08/05/20 02:30 21 87/56 Mechanical Ventilator 100 08/05/20 02:30 92 21 87/56 (66) 94 08/05/20 02:15 22 96/61 Mechanical Ventilator 100 08/05/20 02:15 95 22 96/61 (73) 95 08/05/20 02:00 98 22 100/62 (75) 96 08/05/20 02:00 22 102/62 Mechanical Ventilator 100 08/05/20 02:00 22 102/62 Mechanical Ventilator 100 08/05/20 01:45 99 22 101/69 (80) 99 08/05/20 01:45 22 101/69 Mechanical Ventilator 100 08/05/20 01:45 22 101/69 Mechanical Ventilator 100 08/05/20 01:30 22 101/64 Mechanical Ventilator 100 08/05/20 01:30 22 101/64 Mechanical Ventilator 100 08/05/20 01:30 99 22 101/64 (76) 100 08/05/20 01:26 99 22 100 08/05/20 01:24 105 22 109/66 (80) 96 08/05/20 01:15 25 142/84 Mechanical Ventilator 100 08/05/20 01:15 25 142/84 Mechanical Ventilator 100 08/05/20 01:15 115 25 142/84 (103) 54 08/05/20 01:05 25 93/65 Mechanical Ventilator 100 08/05/20 01:00 23 93/65 Mechanical Ventilator 100 08/05/20 01:00 94 23 93/65 (74) 84 08/05/20 00:23 26 96/62 Mechanical Ventilator 100 08/05/20 00:00 97.6 100 23 98/65 (76) 93 08/05/20 00:00 100 08/05/20 00:00 23 98/65 Mechanical Ventilator 100 08/05/20 00:00 100 08/05/20 00:00 Mechanical Ventilator 08/04/20 23:45 101 22 101/67 (78) 93 08/04/20 23:30 101 22 101/66 (78) 94 08/04/20 23:20 112 22 100 08/04/20 23:15 119 24 120/64 (82) 81 08/04/20 23:00 115 23 107/67 (80) 78 08/04/20 23:00 23 107/67 Mechanical Ventilator 100 08/04/20 23:00 23 107/67 Mechanical Ventilator 100 08/04/20 22:45 25 128/72 Mechanical Ventilator 100 08/04/20 22:45 25 128/72 Mechanical Ventilator 100 08/04/20 22:45 111 25 128/72 (90) 62 08/04/20 22:30 104 24 105/64 (78) 99 08/04/20 22:15 109 22 111/68 (82) 99 08/04/20 22:00 24 110/66 Mechanical Ventilator 100 08/04/20 22:00 24 100/66 Mechanical Ventilator 100 08/04/20 22:00 109 24 110/66 (81) 99 08/04/20 21:45 114 22 112/66 (81) 93 08/04/20 21:30 122 24 127/68 (87) 90 08/04/20 21:00 97 25 107/70 (82) 94 08/04/20 21:00 25 107/70 Mechanical Ventilator 100 08/04/20 21:00 25 107/70 Mechanical Ventilator 100 08/04/20 20:45 100 111/64 08/04/20 20:40 100 08/04/20 20:38 104 22 100 08/04/20 20:30 98 22 111/64 (80) 94 08/04/20 20:00 97.5 96 26 96/60 (72) 94 08/04/20 20:00 Mechanical Ventilator 08/04/20 20:00 26 96/60 Mechanical Ventilator 90 08/04/20 20:00 26 96/60 Mechanical Ventilator 90 08/04/20 20:00 90 08/04/20 20:00 96 08/04/20 19:30 98 22 90/55 (67) 98 08/04/20 19:01 99 22 90 08/04/20 19:00 99 22 98/63 (75) 98 08/04/20 19:00 22 98/63 Mechanical Ventilator 100 08/04/20 19:00 22 98/63 Mechanical Ventilator 100 08/04/20 18:34 26 154/92 Mechanical Ventilator 100 08/04/20 18:30 110 22 89/56 (67) 96 08/04/20 18:00 26 154/92 Mechanical Ventilator 100 08/04/20 18:00 26 154/92 Mechanical Ventilator 100 08/04/20 18:00 133 23 154/92 (112) 99 08/04/20 17:00 22 109/64 Mechanical Ventilator 100 08/04/20 17:00 22 109/64 Mechanical Ventilator 100 08/04/20 17:00 100 23 118/64 (82) 99 08/04/20 16:30 97 23 116/70 (85) 96 08/04/20 16:00 100 08/04/20 16:00 Mechanical Ventilator 08/04/20 16:00 22 109/64 Mechanical Ventilator 100 08/04/20 16:00 22 109/64 Mechanical Ventilator 100 08/04/20 16:00 100 08/04/20 16:00 98.2 24 109/64 (79) 100 08/04/20 15:30 16 100/60 (73) 99 08/04/20 15:00 22 99/56 Mechanical Ventilator 100 08/04/20 15:00 22 99/56 Mechanical Ventilator 100 08/04/20 15:00 86 24 99/56 (70) 08/04/20 14:30 89 22 104/64 (77) 100 08/04/20 14:00 22 117/83 Mechanical Ventilator 100 08/04/20 14:00 22 117/83 Mechanical Ventilator 100 08/04/20 14:00 89 27 117/83 (94) 99 08/04/20 13:30 83 22 97/60 (72) 99 08/04/20 13:00 86 25 106/60 (75) 96 08/04/20 13:00 22 106/60 Mechanical Ventilator 100 08/04/20 13:00 22 106/60 Mechanical Ventilator 100 08/04/20 12:30 84 22 97/61 (73) 97 Height (Feet): 5 Height (Inches): 3.00 Weight (Pounds): 162 HEENT: other - R nostril packing, orally intubated Respiratory/Chest: lungs clear, other - on ventilator, [id number]% Cardiovascular: normal rate Abdomen: soft, non tender, other - OG tube Extremities: other - general edema Neurologic/Psychiatric: other - sedated Laboratory Tests Test 08/05/20 05:30 08/05/20 08:00 White Blood Count 16.1 K/UL (4.8-10.8) H Red Blood Count 2.86 M/UL (4.20-5.40) L Hemoglobin 8.0 G/DL (12.0-16.0) L Hematocrit 25.5 % (37.0-47.0) L Mean Corpuscular Volume 89 FL (80-99) Mean Corpuscular Hemoglobin 28.0 PG (27.0-31.0) Mean Corpuscular Hemoglobin Concent 31.4 G/DL (32.0-36.0) L Red Cell Distribution Width 14.8 % (11.6-14.8) Platelet Count 137 K/UL (150-450) L Mean Platelet Volume 8.2 FL (6.5-10.1) Neutrophils (%) (Auto) % (45.0-75.0) Lymphocytes (%) (Auto) % (20.0-45.0) Monocytes (%) (Auto) % (1.0-10.0) Eosinophils (%) (Auto) % (0.0-3.0) Basophils (%) (Auto) % (0.0-2.0) Differential Total Cells Counted 100 Neutrophils % (Manual) 95 % (45-75) H Lymphocytes % (Manual) 3 % (20-45) L Monocytes % (Manual) 2 % (1-10) Eosinophils % (Manual) 0 % (0-3) Basophils % (Manual) 0 % (0-2) Band Neutrophils 0 % (0-8) Platelet Estimate Decreased L Platelet Morphology Normal Hypochromasia 1+ Anisocytosis 1+ Arterial Blood pH 7.314 (7.350-7.450) Arterial Blood Partial Pressure CO2 52.9 mmHg (35.0-45.0) H Arterial Blood Partial Pressure O2 68.8 mmHg (75.0-100.0) L Arterial Blood HCO3 26.3 mmol/L (22.0-26.0) H Arterial Blood Oxygen Saturation 90.2 % (95-100) L Arterial Blood Base Excess -0.2 (-2-2) Timbo Test Positive Current Medications Medications (Trade) Dose Ordered Sig/Marian Route PRN Reason Start Time Stop Time Status Last Admin Dose Admin Acetaminophen (Tylenol) 650 mg Q4H PRN RECTAL Temp >100.5 07/18/20 18:30 08/17/20 18:29 08/01/20 16:50 Acetaminophen (Tylenol) 650 mg Q6H PRN ORAL For Pain 07/07/20 15:45 08/06/20 15:44 08/02/20 18:59 Acetaminophen (Tylenol) 650 mg Q6H PRN ORAL FEVER 07/07/20 16:15 08/06/20 16:14 07/30/20 12:36 Benzonatate (Tessalon Perles) 100 mg TIDPRN PRN ORAL For Cough 07/18/20 18:30 08/17/20 18:29 Cefepime HCl 2 gm/ Dextrose 55 ml @ 110 mls/hr Q12HR IVPB 07/22/20 13:00 08/10/20 12:59 08/05/20 08:40 Chlorhexidine Gluconate (Rafaela-Hex 2%) 1 applic DAILY@2000 TOPIC 08/01/20 20:00 10/30/20 19:59 08/04/20 19:54 Dextrose (Dextrose 50%) 25 ml Q30M PRN IV Hypoglycemia 07/07/20 15:45 10/05/20 15:44 Dextrose (Dextrose 50%) 50 ml Q30M PRN IV Hypoglycemia 07/07/20 15:45 10/05/20 15:44 Enoxaparin Sodium (Lovenox) 70 mg EVERY 12 HOURS SUBQ 07/25/20 21:00 10/23/20 20:59 08/01/20 21:23 Famotidine (Pepcid I.v.) 20 mg Q12HR IVP 07/20/20 09:00 08/19/20 08:59 08/05/20 08:35 Fentanyl Citrate 250 ml @ 1 mls/hr Q24H PRN IV SEDATION 08/05/20 00:00 08/07/20 00:00 08/05/20 08:55 Insulin Aspart (NovoLOG) Q6HR SUBQ 07/26/20 12:00 10/24/20 11:59 08/05/20 05:31 Insulin Detemir (Levemir) 30 units Q12HR SUBQ 08/01/20 21:00 10/24/20 10:29 08/05/20 09:10 Methylprednisolone Sodium Succinate (Solu-MEDROL) 20 mg EVERY 6 HOURS IVP 07/22/20 12:00 10/19/20 08:59 08/05/20 05:30 Metoprolol Tartrate (Lopressor) 25 mg EVERY 12 HOURS NG 07/26/20 21:00 10/24/20 20:59 08/04/20 20:45 Midazolam HCl 200 ml @ 0 mls/hr Q24H PRN IV Agitation 07/29/20 22:45 08/05/20 16:30 08/05/20 11:41 Midazolam HCl 200 ml @ 0 mls/hr Q24H PRN IV Agitation 08/05/20 16:30 08/07/20 16:29 Norepinephrine Bitartrate 250 ml @ 0 mls/hr Q24H PRN IV For hypotension 08/05/20 08:00 08/08/20 07:47 08/05/20 10:33 Sorbitol (sorbitoL) 45 ml Q12HR PRN ORAL Constipation 07/30/20 09:15 08/29/20 09:14 Stephon Segovia MD Aug 05, 2020 12:21
--- NOTE | 2020-08-05 13:36 | Nephrology Progress Note ---
Assessment/Plan Problem List: (1) Hyponatremia (2) Hypoxia (3) Pneumonitis (4) Acute respiratory failure due to COVID-19 (5) DMII (diabetes mellitus, type 2) (6) HTN (hypertension) Assessment Hyponatremia, improved with saline infusion COVID-19 infection Pneumonia, acute respiratory failure, hypoxia Diabetes mellitus Hypertension Plan August 05: Labs reviewed. Renal parameters stable. Remains intubated on ventilator and full code. Continue per consultants. August 04: Labs reviewed. Renal parameters stable. Medication list reviewed. Continue per consultants. August 03: Labs reviewed. Discussed with RN. Patient n.p.o. at this time. Will start IV until feeding resumes. Continue to monitor electrolytes and renal parameters. Medication list reviewed. Continue per consultants. August 02: Labs reviewed. Serum sodium drifting down. Serum potassium remains higher than normal though improved since yesterday. Kayexalate via NG tube give n and 250 cc 3% saline IV given continue to monitor renal parameters and electrolytes. August 01: Today's labs reviewed. Discussed with RN. Kayexalate for high potassium given. Hemoglobin lower. Defer transfusion to mechanical engineering specialist. Continue to monitor electrolytes and renal parameters. July 31: No CHEM panel drawn today. Remains full code. Intubated on ventilator. FiO2 85% now. Will check lab tomorrow. Continue to monitor renal parameters. July 30: Labs reviewed. Renal parameters stable. Continue per consultants. Intubated on ventilator with FiO2 of 100%. Full code. Not much to add from renal standpoint of view at this time. July 29 labs reviewed. Serum potassium elevated. Potassium supplement was put on hold on 1 dose of Kayexalate given. Levemir dose increased. Continue to monitor renal parameters. Patient remains on 100% FiO2 on ventilator. July 28: Labs reviewed. Renal parameters stable. Remains full code. Blood sugar remains high. Levemir dose increased. Not much to add from renal standpoint of view. FiO2 now is 100%. July 27: Labs reviewed. Renal parameters stable. Low potassium addressed. FiO2 70%. Blood sugar elevated. Levemir dose is being adjusted. Continue per consultants. July 26: Labs reviewed. Renal parameters stable. Patient now intubated on ventilator in ICU. Blood sugar elevated. Levemir added. Will watch electrolyt es. Main management per clinical operations leader and ID. July 25: Labs reviewed. Renal parameters stable. Continue per consultants. July 24: Labs reviewed. Renal parameters stable. Continue per pulmonary. Medication list reviewed. July 23: No labs drawn today. Medication list reviewed. Continue per energy consultant. Patient full code. July 22: Labs reviewed. Stable renal parameters. Continue per consultants. July 21: No CHEM panel drawn today. Stable from renal standpoint of view. Blood pressure stable. July 20: IV changed to D5W 50 cc an hour. Renal parameters stable. Continue per consultants. July 19: Pulmonary status remains unstable. Stable from renal standpoint of view. July 18: Labs reviewed. Stable renal parameters and electrolytes. Continue per consultants. July 17: No labs drawn today. Remains stable from renal standpoint today. July 16: No labs drawn today. Continue per consultants. Stable from renal standpoint of view. July 15: Labs reviewed. Renal parameters stable. July 14: No labs from today. Continue per current management. Check labs tomorrow. July 13: No labs drawn today. Stable from renal standpoint of view. July 12: Today's labs pending. Medication list reviewed. Continue per cu rrent management and consultants. July 11: Labs reviewed. Renal parameters stable. July 10: Labs reviewed. Renal parameters electrolytes stable. Continue per consultants. July 09: Labs reviewed. Renal parameters and electrolytes stable. Continue per ID and pulmonary. Subjective ROS Limited/Unobtainable: Yes Objective Objective Last 24 Hour Vital Signs Date Time Temp Pulse Resp B/P (MAP) Pulse Ox O2 Delivery O2 Flow Rate FiO2 08/05/20 13:09 77 22 100 08/05/20 13:00 78 23 104/64 (77) 95 08/05/20 12:30 79 22 101/66 (78) 95 08/05/20 12:00 98.0 79 22 103/67 (79) 96 08/05/20 12:00 100 08/05/20 12:00 Mechanical Ventilator 08/05/20 12:00 22 103/67 Mechanical Ventilator 100 08/05/20 12:00 22 103/67 Mechanical Ventilator 100 08/05/20 11:41 22 106/70 Mechanical Ventilator 100 08/05/20 11:30 85 22 106/70 (82) 95 08/05/20 11:23 87 08/05/20 11:15 88 22 111/72 (85) 95 08/05/20 11:00 97 22 107/66 (80) 97 08/05/20 11:00 22 107/66 Mechanical Ventilator 100 08/05/20 11:00 22 107/66 Mechanical Ventilator 100 08/05/20 10:49 100 22 100 08/05/20 10:45 119 19 129/73 (91) 75 08/05/20 10:40 108 19 133/70 (91) 84 08/05/20 10:33 89/49 08/05/20 10:30 101 23 89/49 (62) 08/05/20 10:15 103 26 90/48 (62) 97 08/05/20 10:00 102 24 97/51 (66) 99 08/05/20 10:00 24 97/51 Mechanical Ventilator 100 08/05/20 10:00 24 97/51 Mechanical Ventilator 100 08/05/20 09:45 97 23 108/64 (79) 100 08/05/20 09:30 91 22 112/69 (83) 99 08/05/20 09:19 91 22 100 08/05/20 09:15 92 22 114/70 (85) 95 08/05/20 09:00 22 153/90 Mechanical Ventilator 100 08/05/20 09:00 22 153/90 Mechanical Ventilator 100 08/05/20 09:00 88 22 153/90 (111) 94 08/05/20 08:55 22 111/68 Mechanical Ventilator 100 08/05/20 08:45 89 23 111/68 (82) 90 08/05/20 08:30 90 22 102/64 (77) 95 08/05/20 08:15 90 22 90/57 (68) 98 08/05/20 08:00 97.0 85 22 107/70 (82) 100 08/05/20 08:00 22 107/70 Mechanical Ventilator 100 08/05/20 08:00 22 107/70 Mechanical Ventilator 100 08/05/20 08:00 Mechanical Ventilator 08/05/20 08:00 100 08/05/20 08:00 86 08/05/20 07:54 88 08/05/20 07:25 95 22 100 08/05/20 07:00 22 111/55 Mechanical Ventilator 100 08/05/20 07:00 22 111/55 Mechanical Ventilator 100 08/05/20 07:00 121 22 111/55 (73) 100 08/05/20 06:15 89 20 91/60 (70) 94 08/05/20 06:11 25 86/52 Mechanical Ventilator 100 08/05/20 06:00 21 86/52 Mechanical Ventilator 100 08/05/20 06:00 21 86/52 Mechanical Ventilator 100 08/05/20 06:00 90 21 86/52 (63) 94 08/05/20 05:30 87 22 94/60 (71) 94 08/05/20 05:07 86 22 100 08/05/20 05:00 21 95/63 Mechanical Ventilator 100 08/05/20 05:00 21 95/63 Mechanical Ventilator 100 08/05/20 05:00 85 21 95/63 (74) 94 08/05/20 04:30 87 23 90/57 (68) 94 08/05/20 04:00 Mechanical Ventilator 08/05/20 04:00 91 08/05/20 04:00 22 93/59 Non-Rebreather 100 08/05/20 04:00 22 93/59 Mechanical Ventilator 100 08/05/20 04:00 100 08/05/20 04:00 98.4 91 22 93/59 (70) 94 08/05/20 03:30 92 24 95/56 (69) 94 08/05/20 03:03 98 22 100 08/05/20 03:00 94 25 93/54 (67) 95 08/05/20 03:00 25 93/54 Mechanical Ventilator 100 08/05/20 03:00 25 93/54 Mechanical Ventilator 100 08/05/20 02:45 24 91/57 Mechanical Ventilator 100 08/05/20 02:45 96 24 91/57 (68) 95 08/05/20 02:30 21 87/56 Mechanical Ventilator 100 08/05/20 02:30 92 21 87/56 (66) 94 08/05/20 02:15 22 96/61 Mechanical Ventilator 100 08/05/20 02:15 95 22 96/61 (73) 95 08/05/20 02:00 98 22 100/62 (75) 96 08/05/20 02:00 22 102/62 Mechanical Ventilator 100 08/05/20 02:00 22 102/62 Mechanical Ventilator 100 08/05/20 01:45 99 22 101/69 (80) 99 08/05/20 01:45 22 101/69 Mechanical Ventilator 100 08/05/20 01:45 22 101/69 Mechanical Ventilator 100 08/05/20 01:30 22 101/64 Mechanical Ventilator 100 08/05/20 01:30 22 101/64 Mechanical Ventilator 100 08/05/20 01:30 99 22 101/64 (76) 100 08/05/20 01:26 99 22 100 08/05/20 01:24 105 22 109/66 (80) 96 08/05/20 01:15 25 142/84 Mechanical Ventilator 100 08/05/20 01:15 25 142/84 Mechanical Ventilator 100 08/05/20 01:15 115 25 142/84 (103) 54 08/05/20 01:05 25 93/65 Mechanical Ventilator 100 08/05/20 01:00 23 93/65 Mechanical Ventilator 100 08/05/20 01:00 94 23 93/65 (74) 84 08/05/20 00:23 26 96/62 Mechanical Ventilator 100 08/05/20 00:00 97.6 100 23 98/65 (76) 93 08/05/20 00:00 100 08/05/20 00:00 23 98/65 Mechanical Ventilator 100 08/05/20 00:00 100 08/05/20 00:00 Mechanical Ventilator 08/04/20 23:45 101 22 101/67 (78) 93 08/04/20 23:30 101 22 101/66 (78) 94 08/04/20 23:20 112 22 100 08/04/20 23:15 119 24 120/64 (82) 81 08/04/20 23:00 115 23 107/67 (80) 78 08/04/20 23:00 23 107/67 Mechanical Ventilator 100 08/04/20 23:00 23 107/67 Mechanical Ventilator 100 08/04/20 22:45 25 128/72 Mechanical Ventilator 100 08/04/20 22:45 25 128/72 Mechanical Ventilator 100 08/04/20 22:45 111 25 128/72 (90) 62 08/04/20 22:30 104 24 105/64 (78) 99 08/04/20 22:15 109 22 111/68 (82) 99 08/04/20 22:00 24 110/66 Mechanical Ventilator 100 08/04/20 22:00 24 100/66 Mechanical Ventilator 100 08/04/20 22:00 109 24 110/66 (81) 99 08/04/20 21:45 114 22 112/66 (81) 93 08/04/20 21:30 122 24 127/68 (87) 90 08/04/20 21:00 97 25 107/70 (82) 94 08/04/20 21:00 25 107/70 Mechanical Ventilator 100 08/04/20 21:00 25 107/70 Mechanical Ventilator 100 08/04/20 20:45 100 111/64 08/04/20 20:40 100 08/04/20 20:38 104 22 100 08/04/20 20:30 98 22 111/64 (80) 94 08/04/20 20:00 97.5 96 26 96/60 (72) 94 08/04/20 20:00 Mechanical Ventilator 08/04/20 20:00 26 96/60 Mechanical Ventilator 90 08/04/20 20:00 26 96/60 Mechanical Ventilator 90 08/04/20 20:00 90 08/04/20 20:00 96 08/04/20 19:30 98 22 90/55 (67) 98 08/04/20 19:01 99 22 90 08/04/20 19:00 99 22 98/63 (75) 98 08/04/20 19:00 22 98/63 Mechanical Ventilator 100 08/04/20 19:00 22 98/63 Mechanical Ventilator 100 08/04/20 18:34 26 154/92 Mechanical Ventilator 100 08/04/20 18:30 110 22 89/56 (67) 96 08/04/20 18:00 26 154/92 Mechanical Ventilator 100 08/04/20 18:00 26 154/92 Mechanical Ventilator 100 08/04/20 18:00 133 23 154/92 (112) 99 08/04/20 17:00 22 109/64 Mechanical Ventilator 100 08/04/20 17:00 22 109/64 Mechanical Ventilator 100 08/04/20 17:00 100 23 118/64 (82) 99 08/04/20 16:30 97 23 116/70 (85) 96 08/04/20 16:00 100 08/04/20 16:00 Mechanical Ventilator 08/04/20 16:00 22 109/64 Mechanical Ventilator 100 08/04/20 16:00 22 109/64 Mechanical Ventilator 100 08/04/20 16:00 100 08/04/20 16:00 98.2 24 109/64 (79) 100 08/04/20 15:30 16 100/60 (73) 99 08/04/20 15:00 22 99/56 Mechanical Ventilator 100 08/04/20 15:00 22 99/56 Mechanical Ventilator 100 08/04/20 15:00 86 24 99/56 (70) 08/04/20 14:30 89 22 104/64 (77) 100 08/04/20 14:00 22 117/83 Mechanical Ventilator 100 08/04/20 14:00 22 117/83 Mechanical Ventilator 100 08/04/20 14:00 89 27 117/83 (94) 99 Intake and Output 08/04/20 08/05/20 19:00 07:00 Intake Total 1320 ml 1239.25 ml Output Total 640 ml 890 ml Balance 680 ml 349.25 ml Free Water 110 ml IV Total 550 ml 749.25 ml Tube Feeding 660 ml 440 ml Other 50 ml Output Urine Total 640 ml 840 ml Stool Total 50 ml # Bowel Movements 76 Current Medications Medications (Trade) Dose Ordered Sig/Marian Route PRN Reason Start Time Stop Time Status Last Admin Dose Admin Acetaminophen (Tylenol) 650 mg Q4H PRN RECTAL Temp >100.5 07/18/20 18:30 08/17/20 18:29 08/01/20 16:50 Acetaminophen (Tylenol) 650 mg Q6H PRN ORAL For Pain 07/07/20 15:45 08/06/20 15:44 08/02/20 18:59 Acetaminophen (Tylenol) 650 mg Q6H PRN ORAL FEVER 07/07/20 16:15 08/06/20 16:14 07/30/20 12:36 Benzonatate (Tessalon Perles) 100 mg TIDPRN PRN ORAL For Cough 07/18/20 18:30 08/17/20 18:29 Cefepime HCl 2 gm/ Dextrose 55 ml @ 110 mls/hr Q12HR IVPB 07/22/20 13:00 08/10/20 12:59 08/05/20 08:40 Chlorhexidine Gluconate (Rafaela-Hex 2%) 1 applic DAILY@2000 TOPIC 08/01/20 20:00 10/30/20 19:59 08/04/20 19:54 Dextrose (Dextrose 50%) 25 ml Q30M PRN IV Hypoglycemia 07/07/20 15:45 10/05/20 15:44 Dextrose (Dextrose 50%) 50 ml Q30M PRN IV Hypoglycemia 07/07/20 15:45 10/05/20 15:44 Enoxaparin Sodium (Lovenox) 70 mg EVERY 12 HOURS SUBQ 07/25/20 21:00 10/23/20 20:59 08/01/20 21:23 Famotidine (Pepcid I.v.) 20 mg Q12HR IVP 07/20/20 09:00 08/19/20 08:59 08/05/20 08:35 Fentanyl Citrate 250 ml @ 1 mls/hr Q24H PRN IV SEDATION 08/05/20 00:00 08/07/20 00:00 08/05/20 08:55 Insulin Aspart (NovoLOG) Q6HR SUBQ 07/26/20 12:00 10/24/20 11:59 08/05/20 12:41 Insulin Detemir (Levemir) 30 units Q12HR SUBQ 08/01/20 21:00 10/24/20 10:29 08/05/20 09:10 Methylprednisolone Sodium Succinate (Solu-MEDROL) 20 mg EVERY 6 HOURS IVP 07/22/20 12:00 10/19/20 08:59 08/05/20 12:41 Metoprolol Tartrate (Lopressor) 25 mg EVERY 12 HOURS NG 07/26/20 21:00 10/24/20 20:59 08/04/20 20:45 Midazolam HCl 200 ml @ 0 mls/hr Q24H PRN IV Agitation 07/29/20 22:45 08/05/20 16:30 08/05/20 11:41 Midazolam HCl 200 ml @ 0 mls/hr Q24H PRN IV Agitation 08/05/20 16:30 08/07/20 16:29 Norepinephrine Bitartrate 250 ml @ 0 mls/hr Q24H PRN IV For hypotension 08/05/20 08:00 08/08/20 07:47 08/05/20 10:33 Sorbitol (sorbitoL) 45 ml Q12HR PRN ORAL Constipation 07/30/20 09:15 08/29/20 09:14 Laboratory Tests 08/05/20 05:30: White Blood Count 16.1H, Red Blood Count 2.86L, Hemoglobin 8.0L, Hematocrit 25.5L, Mean Corpuscular Volume 89, Mean Corpuscular Hemoglobin 28.0, Mean Corpuscular Hemoglobin Concent 31.4L, Red Cell Distribution Width 14.8, Platelet Count 137L, Mean Platelet Volume 8.2, Neutrophils (%) (Auto) , Lymphocytes (%) (Auto) , Monocytes (%) (Auto) , Eosinophils (%) (Auto) , Basophils (%) (Auto) , Differential Total Cells Counted 100, Neutrophils % (Manual) 95H, Lymphocytes % (Manual) 3L, Monocytes % (Manual) 2, Eosinophils % (Manual) 0, Basophils % (Manual) 0, Band Neutrophils 0, Platelet Estimate DecreasedL, Platelet Morphology Normal, Hypochromasia 1+, Anisocytosis 1+ 08/05/20 08:00: Arterial Blood pH 7.314L, Arterial Blood Partial Pressure CO2 52.9H, Arterial Blood Partial Pressure O2 68.8L, Arterial Blood HCO3 26.3H, Arterial Blood Oxygen Saturation 90.2L, Arterial Blood Base Excess -0.2, Timbo Test Positive Height (Feet): 5 Height (Inches): 3.00 Weight (Pounds): 162 General Appearance: no apparent distress EENT: other - Intubated on ventilator Cardiovascular: normal rate Respiratory/Chest: decreased breath sounds Abdomen: distended Objective No change Anurag Bridges MD Aug 05, 2020 13:36
--- NOTE | 2020-08-05 18:00 | NUR ---
RESPIRATORY NOTE: [place] changed. No facial wounds found. Optifoam placed on PT's face under [place]. Iesha GAINES aware.
--- NOTE | 2020-08-05 19:30 | NUR ---
NURSE NOTES: Received pt orally intubated, on ac mode, sedated with Fentanyl at 300mcg/min, Versed drip at 20mg/hr,pt with bleeding from mouth and nasal area with [place], mds are aware as well as family. Will continue to monitor.
--- NOTE | 2020-08-05 19:35 | NUR ---
NURSE HAND-OFF REPORT: Latest Vital Signs: Temperature 97.5 , Pulse 80 , B/P 113 /67 , Respiratory Rate 22 , O2 SAT 96 , Mechanical Ventilator, O2 Flow Rate . Vital Sign Comment: Lightly sedated RASS -2 EKG Rhythm: Sinus Rhythm Rhythm change?: N Latest Plaza Fall Score: 50 Fall Risk: High Risk Safety Measures: Call light Within Reach, Bed Alarm Zone 3, Side Rails Side Rails x2, Bed position Low and Locked. Fall Precautions: Yellow Socks Yellow Gown Door Sign Patient Fall Education Report given to Umu Narayanan RN.
[2020-08-05] MEDS: Dyna-Hex 2% Top Sol 2oz TOPIC SCH (20:19)
--- NOTE | 2020-08-05 21:00 | NUR ---
NURSE NOTES: Pt with DTI sacral area, and RT buttocks, picture taken was done. TX applied per protocol.
--- NOTE | 2020-08-05 21:17 | Cardiology Progress Note ---
Assessment/Plan Status: not improved Assessment/Plan 1. COVID-19 viral PNA s/p remdesivir and dexamethasone WBCs elevated 2. Respiratory failure 2/2 acute PNA Intubated 07/25/20 3. HFpEF acute on chronic diastolic HF with preserved EF EF 65%, per repeat echo post intubation Lasix for diuresis as needed 4. 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 Sinus tachycardia 2/2 fever and infection 7. Hypotension 2/2 shock, Levophed as needed Fever resolved, pressors off and on, still vent dependent. Levophed per critical care team, wean off as tolerated. Repeat echo no change. Lasix as needed per pulmonlogy recs. Subjective ROS Limited/Unobtainable: Yes Subjective Hypotensive episodes requiring pressors. Intubated and on vent, in sinus rhythm. Seen in ICU Objective Last 24 Hour Vital Signs Date Time Temp Pulse Resp B/P (MAP) Pulse Ox O2 Delivery O2 Flow Rate FiO2 08/05/20 20:00 22 106/70 Mechanical Ventilator 100 08/05/20 20:00 22 106/70 Mechanical Ventilator 100 08/05/20 19:22 80 22 100 08/05/20 19:00 22 113/67 Mechanical Ventilator 100 08/05/20 19:00 22 113/67 Mechanical Ventilator 100 08/05/20 19:00 81 22 113/67 (82) 96 08/05/20 18:00 22 108/71 Mechanical Ventilator 100 08/05/20 18:00 22 108/71 Mechanical Ventilator 100 08/05/20 18:00 71 22 108/71 (83) 99 08/05/20 17:30 69 22 108/71 (83) 99 08/05/20 17:16 22 103/73 Mechanical Ventilator 100 08/05/20 17:15 71 22 100 08/05/20 17:00 69 22 103/73 (83) 98 08/05/20 17:00 22 103/73 Mechanical Ventilator 100 08/05/20 17:00 22 103/73 Mechanical Ventilator 100 08/05/20 16:31 22 108/70 Mechanical Ventilator 100 08/05/20 16:30 72 22 108/70 (83) 96 08/05/20 16:00 100 08/05/20 16:00 22 131/89 Mechanical Ventilator 100 08/05/20 16:00 22 131/89 Mechanical Ventilator 100 08/05/20 16:00 Mechanical Ventilator 08/05/20 16:00 97.5 64 22 131/89 (103) 96 08/05/20 15:30 70 22 137/92 (107) 96 08/05/20 15:17 80 08/05/20 15:10 78 22 100 08/05/20 15:00 73 22 107/71 (83) 97 08/05/20 15:00 22 107/71 Mechanical Ventilator 100 08/05/20 15:00 22 107/71 Mechanical Ventilator 100 08/05/20 14:30 75 22 105/68 (80) 96 08/05/20 14:00 22 105/68 Mechanical Ventilator 100 08/05/20 14:00 22 105/68 Mechanical Ventilator 100 08/05/20 14:00 77 22 105/68 (80) 96 08/05/20 13:30 76 22 103/65 (78) 96 08/05/20 13:09 77 22 100 08/05/20 13:00 78 23 104/64 (77) 95 08/05/20 13:00 23 104/64 Mechanical Ventilator 100 08/05/20 13:00 23 104/64 Mechanical Ventilator 100 08/05/20 12:30 79 22 101/66 (78) 95 08/05/20 12:00 98.0 79 22 103/67 (79) 96 08/05/20 12:00 100 08/05/20 12:00 Mechanical Ventilator 08/05/20 12:00 22 103/67 Mechanical Ventilator 100 08/05/20 12:00 22 103/67 Mechanical Ventilator 100 08/05/20 11:41 22 106/70 Mechanical Ventilator 100 08/05/20 11:30 85 22 106/70 (82) 95 08/05/20 11:23 87 08/05/20 11:15 88 22 111/72 (85) 95 08/05/20 11:00 97 22 107/66 (80) 97 08/05/20 11:00 22 107/66 Mechanical Ventilator 100 08/05/20 11:00 22 107/66 Mechanical Ventilator 100 08/05/20 10:49 100 22 100 08/05/20 10:45 119 19 129/73 (91) 75 08/05/20 10:40 108 19 133/70 (91) 84 08/05/20 10:33 89/49 08/05/20 10:30 101 23 89/49 (62) 08/05/20 10:15 103 26 90/48 (62) 97 08/05/20 10:00 102 24 97/51 (66) 99 08/05/20 10:00 24 97/51 Mechanical Ventilator 100 08/05/20 10:00 24 97/51 Mechanical Ventilator 100 08/05/20 09:45 97 23 108/64 (79) 100 08/05/20 09:30 91 22 112/69 (83) 99 08/05/20 09:19 91 22 100 08/05/20 09:15 92 22 114/70 (85) 95 08/05/20 09:00 22 153/90 Mechanical Ventilator 100 08/05/20 09:00 22 153/90 Mechanical Ventilator 100 08/05/20 09:00 88 22 153/90 (111) 94 08/05/20 08:55 22 111/68 Mechanical Ventilator 100 08/05/20 08:45 89 23 111/68 (82) 90 08/05/20 08:30 90 22 102/64 (77) 95 08/05/20 08:15 90 22 90/57 (68) 98 08/05/20 08:00 97.0 85 22 107/70 (82) 100 08/05/20 08:00 22 107/70 Mechanical Ventilator 100 08/05/20 08:00 22 107/70 Mechanical Ventilator 100 08/05/20 08:00 Mechanical Ventilator 08/05/20 08:00 100 08/05/20 08:00 86 08/05/20 07:54 88 08/05/20 07:25 95 22 100 08/05/20 07:00 22 111/55 Mechanical Ventilator 100 08/05/20 07:00 22 111/55 Mechanical Ventilator 100 08/05/20 07:00 121 22 111/55 (73) 100 08/05/20 06:15 89 20 91/60 (70) 94 08/05/20 06:11 25 86/52 Mechanical Ventilator 100 08/05/20 06:00 21 86/52 Mechanical Ventilator 100 08/05/20 06:00 21 86/52 Mechanical Ventilator 100 08/05/20 06:00 90 21 86/52 (63) 94 08/05/20 05:30 87 22 94/60 (71) 94 3/6/21 05:07 86 22 100 08/05/20 05:00 21 95/63 Mechanical Ventilator 100 08/05/20 05:00 21 95/63 Mechanical Ventilator 100 08/05/20 05:00 85 21 95/63 (74) 94 08/05/20 04:30 87 23 90/57 (68) 94 08/05/20 04:00 Mechanical Ventilator 08/05/20 04:00 91 08/05/20 04:00 22 93/59 Non-Rebreather 100 08/05/20 04:00 22 93/59 Mechanical Ventilator 100 08/05/20 04:00 100 08/05/20 04:00 98.4 91 22 93/59 (70) 94 08/05/20 03:30 92 24 95/56 (69) 94 08/05/20 03:03 98 22 100 08/05/20 03:00 94 25 93/54 (67) 95 08/05/20 03:00 25 93/54 Mechanical Ventilator 100 08/05/20 03:00 25 93/54 Mechanical Ventilator 100 08/05/20 02:45 24 91/57 Mechanical Ventilator 100 08/05/20 02:45 96 24 91/57 (68) 95 08/05/20 02:30 21 87/56 Mechanical Ventilator 100 08/05/20 02:30 92 21 87/56 (66) 94 08/05/20 02:15 22 96/61 Mechanical Ventilator 100 08/05/20 02:15 95 22 96/61 (73) 95 08/05/20 02:00 98 22 100/62 (75) 96 08/05/20 02:00 22 102/62 Mechanical Ventilator 100 08/05/20 02:00 22 102/62 Mechanical Ventilator 100 08/05/20 01:45 99 22 101/69 (80) 99 08/05/20 01:45 22 101/69 Mechanical Ventilator 100 08/05/20 01:45 22 101/69 Mechanical Ventilator 100 08/05/20 01:30 22 101/64 Mechanical Ventilator 100 08/05/20 01:30 22 101/64 Mechanical Ventilator 100 08/05/20 01:30 99 22 101/64 (76) 100 08/05/20 01:26 99 22 100 08/05/20 01:24 105 22 109/66 (80) 96 08/05/20 01:15 25 142/84 Mechanical Ventilator 100 08/05/20 01:15 25 142/84 Mechanical Ventilator 100 08/05/20 01:15 115 25 142/84 (103) 54 08/05/20 01:05 25 93/65 Mechanical Ventilator 100 08/05/20 01:00 23 93/65 Mechanical Ventilator 100 08/05/20 01:00 94 23 93/65 (74) 84 08/05/20 00:23 26 96/62 Mechanical Ventilator 100 08/05/20 00:00 97.6 100 23 98/65 (76) 93 08/05/20 00:00 100 08/05/20 00:00 23 98/65 Mechanical Ventilator 100 08/05/20 00:00 100 08/05/20 00:00 Mechanical Ventilator 08/04/20 23:45 101 22 101/67 (78) 93 08/04/20 23:30 101 22 101/66 (78) 94 08/04/20 23:20 112 22 100 08/04/20 23:15 119 24 120/64 (82) 81 08/04/20 23:00 115 23 107/67 (80) 78 08/04/20 23:00 23 107/67 Mechanical Ventilator 100 08/04/20 23:00 23 107/67 Mechanical Ventilator 100 08/04/20 22:45 25 128/72 Mechanical Ventilator 100 08/04/20 22:45 25 128/72 Mechanical Ventilator 100 08/04/20 22:45 111 25 128/72 (90) 62 08/04/20 22:30 104 24 105/64 (78) 99 08/04/20 22:15 109 22 111/68 (82) 99 08/04/20 22:00 24 110/66 Mechanical Ventilator 100 08/04/20 22:00 24 100/66 Mechanical Ventilator 100 08/04/20 22:00 109 24 110/66 (81) 99 08/04/20 21:45 114 22 112/66 (81) 93 08/04/20 21:30 122 24 127/68 (87) 90 General Appearance: no apparent distress Rhythm: NSR Cardiovascular: regular rhythm Respiratory/Chest: no respiratory distress, no accessory muscle use Abdomen: soft Extremities: trace edema Intake and Output 08/04/20 08/05/20 19:00 07:00 Intake Total 1320 ml 1239.25 ml Output Total 640 ml 890 ml Balance 680 ml 349.25 ml Free Water 110 ml IV Total 550 ml 749.25 ml Tube Feeding 660 ml 440 ml Other 50 ml Output Urine Total 640 ml 840 ml Stool Total 50 ml # Bowel Movements 76 Laboratory Tests Test 08/05/20 05:30 08/05/20 08:00 White Blood Count 16.1 K/UL (4.8-10.8) H Red Blood Count 2.86 M/UL (4.20-5.40) L Hemoglobin 8.0 G/DL (12.0-16.0) L Hematocrit 25.5 % (37.0-47.0) L Mean Corpuscular Volume 89 FL (80-99) Mean Corpuscular Hemoglobin 28.0 PG (27.0-31.0) Mean Corpuscular Hemoglobin Concent 31.4 G/DL (32.0-36.0) L Red Cell Distribution Width 14.8 % (11.6-14.8) Platelet Count 137 K/UL (150-450) L Mean Platelet Volume 8.2 FL (6.5-10.1) Neutrophils (%) (Auto) % (45.0-75.0) Lymphocytes (%) (Auto) % (20.0-45.0) Monocytes (%) (Auto) % (1.0-10.0) Eosinophils (%) (Auto) % (0.0-3.0) Basophils (%) (Auto) % (0.0-2.0) Differential Total Cells Counted 100 Neutrophils % (Manual) 95 % (45-75) H Lymphocytes % (Manual) 3 % (20-45) L Monocytes % (Manual) 2 % (1-10) Eosinophils % (Manual) 0 % (0-3) Basophils % (Manual) 0 % (0-2) Band Neutrophils 0 % (0-8) Platelet Estimate Decreased L Platelet Morphology Normal Hypochromasia 1+ Anisocytosis 1+ Arterial Blood pH 7.314 (7.350-7.450) Arterial Blood Partial Pressure CO2 52.9 mmHg (35.0-45.0) H Arterial Blood Partial Pressure O2 68.8 mmHg (75.0-100.0) L Arterial Blood HCO3 26.3 mmol/L (22.0-26.0) H Arterial Blood Oxygen Saturation 90.2 % (95-100) L Arterial Blood Base Excess -0.2 (-2-2) Timbo Test Positive Blanca Lobato PA-C Aug 05, 2020 21:17
--- NOTE | 2020-08-05 23:00 | NUR ---
NURSE NOTES: Suctioned blood tinged secretions minimal to moderate in amt. 02 sat>95%. HOB kept elevated . watch for any resp. distress.
[2020-08-06] VITALS (68 sets, daily range): BP systolic 79–193; BP diastolic 50–112
--- NOTE | 2020-08-06 | NUR ---
NURSE NOTES: Accucheck with coverage. pls see emar.
[2020-08-06] MEDS: Solu-MEDROL 40mg Inj IVP SCH ×4 (00:11→17:31)
[2020-08-06] MEDS: NovoLOG Insulin Flexpen SUBQ SCH ×4 (00:13→17:31)
[2020-08-06] MEDS: fentaNYL 2500mcg/NS 250ml 250 ML IV PRN ×3 (03:25→21:15)
--- NOTE | 2020-08-06 04:00 | NUR ---
NURSE NOTES: Complete bed bath with bed changed was done.
[2020-08-06] MEDS: Versed 100mg/NS 200ml 200 ML IV PRN ×2 (04:47→21:16)
--- NOTE | 2020-08-06 06:00 | NUR ---
NURSE NOTES: aqccucheck with coverage. pls see emar.
--- NOTE | 2020-08-06 07:12 | NUR ---
RESPIRATORY NOTE: PT received on mechanical ventilation with current ventilator settings: AC/VC 22, 450, 100%, +8. Alarms are on and audible. Airway is secure and patent. Ventilator circuit is secure and out of the way. Was called by Iesha GAINES due to the PT having low saturation. PT was found with a saturation of 68%. PT was sx, ETT was repositioned and pulse ox sensor was replaced. After sx and all interventions SPO2 increased to 86%. Wave form is stable and signal for SPO2 is strong and accurate. RN was notified. Will continue to closely monitor.
--- NOTE | 2020-08-06 07:27 | NUR ---
NURSE HAND-OFF REPORT: Latest Vital Signs: Temperature 98.8 , Pulse 125 , B/P 115 /60 , Respiratory Rate 24 , O2 SAT 40 , Mechanical Ventilator, O2 Flow Rate . Vital Sign Comment: EKG Rhythm: Sinus Tachycardia Rhythm change?: N MD Notified?: N - MD Response: Latest Plaza Fall Score: 50 Fall Risk: High Risk Safety Measures: Call light Within Reach, Bed Alarm Zone 3, Side Rails Side Rails x2, Bed position Low and Locked. Fall Precautions: Yellow Socks Yellow Gown Door Sign Patient Fall Education Report given to Kamaljit GAINES
[2020-08-06 08:06] LABS: HEMATOCRIT 27.8 % (37.0-47.0); HEMOGLOBIN 8.7 G/DL (12.0-16.0); MEAN CORPUSCULAR VOLUME 90 FL (80-99); PLATELET COUNT 152 K/UL (150-450); RED BLOOD COUNT 3.08 M/UL (4.20-5.40); RED CELL DISTRIBUTION WIDTH 14.9 % (11.6-14.8)
[2020-08-06 08:31] LABS: ANION GAP 4 mmol/L (5-15); BLOOD UREA NITROGEN 31 mg/dL (7-18); CALCIUM 8.5 MG/DL (8.5-10.1); CARBON DIOXIDE 32 MMOL/L (21-32); CHLORIDE 109 MMOL/L (98-107); CREATININE 0.7 MG/DL (0.55-1.30); POTASSIUM 4.6 MMOL/L (3.5-5.1); SODIUM 145 MMOL/L (136-145)
[2020-08-06] MEDS: Enoxaparin 80mg Inj SUBQ SCH ×2 (08:59→21:00)
[2020-08-06] MEDS: Cefepime HCl 2 GM in D5W 55 ML IVPB SCH ×2 (08:59→21:00)
[2020-08-06] MEDS: Levemir Flexpen SUBQ SCH ×2 (08:59→21:00)
--- NOTE | 2020-08-06 09:20 | General Progress Note ---
Subjective ROS Limited/Unobtainable: No Allergies: Coded Allergies: No Known Allergies (Unverified , 07/07/20) Subjective no event over night on 100 % o2 on pressor tolerating TF Objective Last 24 Hour Vital Signs Date Time Temp Pulse Resp B/P (MAP) Pulse Ox O2 Delivery O2 Flow Rate FiO2 08/06/20 08:00 99.0 85 26 104/68 (80) 83 08/06/20 08:00 Mechanical Ventilator 08/06/20 08:00 100 08/06/20 07:52 89 08/06/20 07:15 125 24 115/60 (78) 40 08/06/20 07:12 93 25 100 08/06/20 07:00 110 23 113/62 (79) 69 08/06/20 06:00 22 99/64 Mechanical Ventilator 100 08/06/20 06:00 100 22 110/73 (85) 71 08/06/20 05:30 101 22 107/73 (84) 71 08/06/20 05:00 22 107/64 Mechanical Ventilator 100 08/06/20 05:00 22 107/64 Mechanical Ventilator 100 08/06/20 05:00 132 22 119/66 (83) 71 08/06/20 04:47 25 177/105 Mechanical Ventilator 100 08/06/20 04:47 25 177/105 Mechanical Ventilator 100 08/06/20 04:30 93 25 152/86 (108) 81 08/06/20 04:00 100 08/06/20 04:00 108 08/06/20 04:00 22 137/56 Mechanical Ventilator 100 08/06/20 04:00 22 137/56 Mechanical Ventilator 100 08/06/20 04:00 Mechanical Ventilator 08/06/20 04:00 98.8 92 25 155/85 (108) 81 08/06/20 03:30 85 22 128/78 (95) 94 08/06/20 03:25 22 122/74 Mechanical Ventilator 100 08/06/20 03:14 72 22 100 08/06/20 03:00 67 22 112/74 (87) 93 08/06/20 03:00 22 129/74 Mechanical Ventilator 100 08/06/20 03:00 22 129/74 Mechanical Ventilator 100 08/06/20 02:30 70 22 107/74 (85) 93 08/06/20 02:00 22 114/72 Mechanical Ventilator 100 08/06/20 02:00 22 114/72 Mechanical Ventilator 100 08/06/20 02:00 76 23 99/58 (72) 91 08/06/20 01:30 72 25 105/67 (80) 92 08/06/20 01:00 70 24 111/69 (83) 92 08/06/20 01:00 22 106/63 Mechanical Ventilator 100 08/06/20 01:00 22 106/63 Mechanical Ventilator 100 08/06/20 00:30 72 22 110/72 (85) 98 08/06/20 00:15 69 22 100/71 (81) 98 08/06/20 00:00 99.4 72 22 100/64 (76) 98 08/06/20 00:00 90 08/06/20 00:00 22 100/71 Mechanical Ventilator 100 08/06/20 00:00 22 100/71 Non-Rebreather 100 08/06/20 00:00 100 08/06/20 00:00 Mechanical Ventilator 08/05/20 23:45 74 22 97/60 (72) 98 08/05/20 23:30 70 22 97/62 (74) 98 08/05/20 23:17 58 22 100 08/05/20 23:02 22 115/76 Mechanical Ventilator 100 08/05/20 23:00 22 118/73 Mechanical Ventilator 100 08/05/20 23:00 65 22 115/76 (89) 98 08/05/20 22:30 68 22 117/75 (89) 97 08/05/20 22:00 22 118/73 Mechanical Ventilator 100 08/05/20 22:00 22 118/73 Mechanical Ventilator 100 08/05/20 22:00 67 22 105/73 (84) 98 08/05/20 21:30 76 22 97/60 (72) 97 08/05/20 21:00 73 22 95/62 (73) 98 08/05/20 21:00 22 96/59 Mechanical Ventilator 100 08/05/20 21:00 22 96/59 Mechanical Ventilator 100 08/05/20 21:00 67 90/60 08/05/20 20:45 69 22 108/71 (83) 98 08/05/20 20:30 70 22 103/72 (82) 98 08/05/20 20:15 70 22 106/70 (82) 98 08/05/20 20:00 92 3/6/21 20:00 99.0 73 22 107/71 (83) 97 08/05/20 20:00 22 106/70 Mechanical Ventilator 100 08/05/20 20:00 22 106/70 Mechanical Ventilator 100 08/05/20 20:00 Mechanical Ventilator 08/05/20 20:00 100 08/05/20 19:22 80 22 100 08/05/20 19:00 22 113/67 Mechanical Ventilator 100 08/05/20 19:00 22 113/67 Mechanical Ventilator 100 08/05/20 19:00 81 22 113/67 (82) 96 08/05/20 18:00 22 108/71 Mechanical Ventilator 100 08/05/20 18:00 22 108/71 Mechanical Ventilator 100 08/05/20 18:00 71 22 108/71 (83) 99 08/05/20 17:30 69 22 108/71 (83) 99 08/05/20 17:16 22 103/73 Mechanical Ventilator 100 08/05/20 17:15 71 22 100 08/05/20 17:00 69 22 103/73 (83) 98 08/05/20 17:00 22 103/73 Mechanical Ventilator 100 08/05/20 17:00 22 103/73 Mechanical Ventilator 100 08/05/20 16:31 22 108/70 Mechanical Ventilator 100 08/05/20 16:30 72 22 108/70 (83) 96 08/05/20 16:00 100 08/05/20 16:00 22 131/89 Mechanical Ventilator 100 08/05/20 16:00 22 131/89 Mechanical Ventilator 100 08/05/20 16:00 Mechanical Ventilator 08/05/20 16:00 97.5 64 22 131/89 (103) 96 08/05/20 15:30 70 22 137/92 (107) 96 08/05/20 15:17 80 08/05/20 15:10 78 22 100 08/05/20 15:00 73 22 107/71 (83) 97 08/05/20 15:00 22 107/71 Mechanical Ventilator 100 08/05/20 15:00 22 107/71 Mechanical Ventilator 100 08/05/20 14:30 75 22 105/68 (80) 96 08/05/20 14:00 22 105/68 Mechanical Ventilator 100 08/05/20 14:00 22 105/68 Mechanical Ventilator 100 08/05/20 14:00 77 22 105/68 (80) 96 08/05/20 13:30 76 22 103/65 (78) 96 08/05/20 13:09 77 22 100 08/05/20 13:00 78 23 104/64 (77) 95 08/05/20 13:00 23 104/64 Mechanical Ventilator 100 08/05/20 13:00 23 104/64 Mechanical Ventilator 100 08/05/20 12:30 79 22 101/66 (78) 95 08/05/20 12:00 98.0 79 22 103/67 (79) 96 08/05/20 12:00 100 08/05/20 12:00 Mechanical Ventilator 08/05/20 12:00 22 103/67 Mechanical Ventilator 100 08/05/20 12:00 22 103/67 Mechanical Ventilator 100 08/05/20 11:41 22 106/70 Mechanical Ventilator 100 08/05/20 11:30 85 22 106/70 (82) 95 08/05/20 11:23 87 08/05/20 11:15 88 22 111/72 (85) 95 08/05/20 11:00 97 22 107/66 (80) 97 08/05/20 11:00 22 107/66 Mechanical Ventilator 100 08/05/20 11:00 22 107/66 Mechanical Ventilator 100 08/05/20 10:49 100 22 100 08/05/20 10:45 119 19 129/73 (91) 75 08/05/20 10:40 108 19 133/70 (91) 84 08/05/20 10:33 89/49 08/05/20 10:30 101 23 89/49 (62) 08/05/20 10:15 103 26 90/48 (62) 97 08/05/20 10:00 102 24 97/51 (66) 99 08/05/20 10:00 24 97/51 Mechanical Ventilator 100 08/05/20 10:00 24 97/51 Mechanical Ventilator 100 08/05/20 09:45 97 23 108/64 (79) 100 08/05/20 09:30 91 22 112/69 (83) 99 08/05/20 09:19 91 22 100 Intake and Output 08/05/20 08/06/20 19:00 07:00 Intake Total 1589.375 ml 1460.0 ml Output Total 1370 ml 990 ml Balance 219.375 ml 470.0 ml Free Water 60 ml IV Total 929.375 ml 740.0 ml Tube Feeding 660 ml 660 ml Output Urine Total 870 ml 850 ml Stool Total 500 ml 140 ml Laboratory Tests 08/06/20 06:30: White Blood Count 20.0H, Red Blood Count 3.08L, Hemoglobin 8.7L, Hematocrit 27.8L, Mean Corpuscular Volume 90, Mean Corpuscular Hemoglobin 28.4, Mean Corpuscular Hemoglobin Concent 31.4L, Red Cell Distribution Width 14.9H, Platelet Count 152, Mean Platelet Volume 7.8, Neutrophils (%) (Auto) , Lymphocytes (%) (Auto) , Monocytes (%) (Auto) , Eosinophils (%) (Auto) , Basophils (%) (Auto) , Differential Total Cells Counted 100, Neutrophils % (Manual) 91H, Lymphocytes % (Manual) 6L, Monocytes % (Manual) 3, Eosinophils % (Manual) 0, Basophils % (Manual) 0, Band Neutrophils 0, Platelet Estimate Adequate, Platelet Morphology Normal, Polychromasia 1+, Hypochromasia 1+, Anisocytosis 1+, Sodium Level 145, Potassium Level 4.6, Chloride Level 109H, Carbon Dioxide Level 32, Anion Gap 4L, Blood Urea Nitrogen 31H, Creatinine 0.7, Estimat Glomerular Filtration Rate > 60, Glucose Level 265H, Calcium Level 8.5 Height (Feet): 5 Height (Inches): 3.00 Weight (Pounds): 162 General Appearance: lethargic EENT: normal ENT inspection Neck: supple Cardiovascular: normal peripheral pulses Respiratory/Chest: decreased breath sounds Abdomen: hypoactive bowel sounds Extremities: non-tender Assessment/Plan Problem List: (1) Dysphagia ICD Codes: R13.10 - Dysphagia, unspecified SNOMED: 73001840, 010606126 (2) COVID-19 virus infection ICD Codes: U07.1 - COVID-19 SNOMED: 486790551 (3) HTN (hypertension) ICD Codes: I10 - Essential (primary) hypertension SNOMED: 00386804 (4) DMII (diabetes mellitus, type 2) ICD Codes: E11.9 - Type 2 diabetes mellitus without complications SNOMED: 11296630 Qualifiers: Qualified Codes: E11.69 - Type 2 diabetes mellitus with other specified complication Status: not improved Assessment/Plan: coverage note for dr Malcolm intubated DM control fu pulm and cardiology recs NGTF on pressor now now has rectal tube still on 100 %o2 Steffen De Luna MD Aug 06, 2020 09:19
--- NOTE | 2020-08-06 09:21 | NUR ---
NURSE NOTES: Dr. De Luna. Informed MD regarding patient's condition. Patient is vent dependent, FiO2 100%, with low oxygen saturation in the monitor 70-80%. Patient has levophed running at this time for hypotension.
--- NOTE | 2020-08-06 09:28 | NUR ---
RESPIRATORY NOTE: PT was SX and saturation improved from 88% to 94%/95%. However, SpO2 fluctuates consistently between 88% and 95%. SPo2 sensor is accurate. Iesha GAINES aware. Will continue to monitor
--- NOTE | 2020-08-06 09:50 | Pulmonology Progress Note ---
Subjective ROS Limited/Unobtainable: No Interval Events: S/p intubation Constitutional: Denies: fever HEENT: Repors: no symptoms Respiratory: Reports: shortness of breath Gastrointestinal/Abdominal: Reports: no symptoms Psychiatric: Reports: no symptoms Skin: Reports: no symptoms Musculoskeletal: Reports: no symptoms Allergies: Coded Allergies: No Known Allergies (Unverified , 07/07/20) Objective Last 24 Hour Vital Signs Date Time Temp Pulse Resp B/P (MAP) Pulse Ox O2 Delivery O2 Flow Rate FiO2 08/06/20 09:15 115 26 126/71 (89) 89 08/06/20 09:00 104 25 120/81 (94) 08/06/20 08:52 124 22 142/75 (97) 82 08/06/20 08:47 112 18 79/50 (60) 90 08/06/20 08:39 122 26 144/80 (101) 32 08/06/20 08:30 88 23 88/56 (67) 85 08/06/20 08:15 83 25 93/57 (69) 84 08/06/20 08:00 99.0 85 26 104/68 (80) 83 08/06/20 08:00 Mechanical Ventilator 08/06/20 08:00 100 08/06/20 07:52 89 08/06/20 07:15 125 24 115/60 (78) 40 08/06/20 07:12 93 25 100 08/06/20 07:00 110 23 113/62 (79) 69 08/06/20 06:00 22 99/64 Mechanical Ventilator 100 08/06/20 06:00 100 22 110/73 (85) 71 08/06/20 05:30 101 22 107/73 (84) 71 08/06/20 05:00 22 107/64 Mechanical Ventilator 100 08/06/20 05:00 22 107/64 Mechanical Ventilator 100 08/06/20 05:00 132 22 119/66 (83) 71 08/06/20 04:47 25 177/105 Mechanical Ventilator 100 08/06/20 04:47 25 177/105 Mechanical Ventilator 100 08/06/20 04:30 93 25 152/86 (108) 81 08/06/20 04:00 100 08/06/20 04:00 108 08/06/20 04:00 22 137/56 Mechanical Ventilator 100 08/06/20 04:00 22 137/56 Mechanical Ventilator 100 08/06/20 04:00 Mechanical Ventilator 08/06/20 04:00 98.8 92 25 155/85 (108) 81 08/06/20 03:30 85 22 128/78 (95) 94 08/06/20 03:25 22 122/74 Mechanical Ventilator 100 08/06/20 03:14 72 22 100 08/06/20 03:00 67 22 112/74 (87) 93 08/06/20 03:00 22 129/74 Mechanical Ventilator 100 08/06/20 03:00 22 129/74 Mechanical Ventilator 100 08/06/20 02:30 70 22 107/74 (85) 93 08/06/20 02:00 22 114/72 Mechanical Ventilator 100 08/06/20 02:00 22 114/72 Mechanical Ventilator 100 08/06/20 02:00 76 23 99/58 (72) 91 08/06/20 01:30 72 25 105/67 (80) 92 08/06/20 01:00 70 24 111/69 (83) 92 08/06/20 01:00 22 106/63 Mechanical Ventilator 100 08/06/20 01:00 22 106/63 Mechanical Ventilator 100 08/06/20 00:30 72 22 110/72 (85) 98 08/06/20 00:15 69 22 100/71 (81) 98 08/06/20 00:00 99.4 72 22 100/64 (76) 98 08/06/20 00:00 90 08/06/20 00:00 22 100/71 Mechanical Ventilator 100 08/06/20 00:00 22 100/71 Non-Rebreather 100 08/06/20 00:00 100 08/06/20 00:00 Mechanical Ventilator 08/05/20 23:45 74 22 97/60 (72) 98 08/05/20 23:30 70 22 97/62 (74) 98 08/05/20 23:17 58 22 100 08/05/20 23:02 22 115/76 Mechanical Ventilator 100 08/05/20 23:00 22 118/73 Mechanical Ventilator 100 08/05/20 23:00 65 22 115/76 (89) 98 08/05/20 22:30 68 22 117/75 (89) 97 08/05/20 22:00 22 118/73 Mechanical Ventilator 100 08/05/20 22:00 22 118/73 Mechanical Ventilator 100 08/05/20 22:00 67 22 105/73 (84) 98 08/05/20 21:30 76 22 97/60 (72) 97 08/05/20 21:00 73 22 95/62 (73) 98 08/05/20 21:00 22 96/59 Mechanical Ventilator 100 08/05/20 21:00 22 96/59 Mechanical Ventilator 100 08/05/20 21:00 67 90/60 08/05/20 20:45 69 22 108/71 (83) 98 08/05/20 20:30 70 22 103/72 (82) 98 08/05/20 20:15 70 22 106/70 (82) 98 08/05/20 20:00 92 08/05/20 20:00 99.0 73 22 107/71 (83) 97 08/05/20 20:00 22 106/70 Mechanical Ventilator 100 08/05/20 20:00 22 106/70 Mechanical Ventilator 100 08/05/20 20:00 Mechanical Ventilator 08/05/20 20:00 100 08/05/20 19:22 80 22 100 08/05/20 19:00 22 113/67 Mechanical Ventilator 100 08/05/20 19:00 22 113/67 Mechanical Ventilator 100 08/05/20 19:00 81 22 113/67 (82) 96 08/05/20 18:00 22 108/71 Mechanical Ventilator 100 08/05/20 18:00 22 108/71 Mechanical Ventilator 100 08/05/20 18:00 71 22 108/71 (83) 99 08/05/20 17:30 69 22 108/71 (83) 99 08/05/20 17:16 22 103/73 Mechanical Ventilator 100 08/05/20 17:15 71 22 100 08/05/20 17:00 69 22 103/73 (83) 98 08/05/20 17:00 22 103/73 Mechanical Ventilator 100 08/05/20 17:00 22 103/73 Mechanical Ventilator 100 08/05/20 16:31 22 108/70 Mechanical Ventilator 100 08/05/20 16:30 72 22 108/70 (83) 96 08/05/20 16:00 100 08/05/20 16:00 22 131/89 Mechanical Ventilator 100 08/05/20 16:00 22 131/89 Mechanical Ventilator 100 08/05/20 16:00 Mechanical Ventilator 08/05/20 16:00 97.5 64 22 131/89 (103) 96 08/05/20 15:30 70 22 137/92 (107) 96 08/05/20 15:17 80 08/05/20 15:10 78 22 100 08/05/20 15:00 73 22 107/71 (83) 97 08/05/20 15:00 22 107/71 Mechanical Ventilator 100 08/05/20 15:00 22 107/71 Mechanical Ventilator 100 08/05/20 14:30 75 22 105/68 (80) 96 08/05/20 14:00 22 105/68 Mechanical Ventilator 100 08/05/20 14:00 22 105/68 Mechanical Ventilator 100 08/05/20 14:00 77 22 105/68 (80) 96 08/05/20 13:30 76 22 103/65 (78) 96 08/05/20 13:09 77 22 100 08/05/20 13:00 78 23 104/64 (77) 95 08/05/20 13:00 23 104/64 Mechanical Ventilator 100 08/05/20 13:00 23 104/64 Mechanical Ventilator 100 08/05/20 12:30 79 22 101/66 (78) 95 08/05/20 12:00 98.0 79 22 103/67 (79) 96 08/05/20 12:00 100 08/05/20 12:00 Mechanical Ventilator 08/05/20 12:00 22 103/67 Mechanical Ventilator 100 08/05/20 12:00 22 103/67 Mechanical Ventilator 100 08/05/20 11:41 22 106/70 Mechanical Ventilator 100 08/05/20 11:30 85 22 106/70 (82) 95 08/05/20 11:23 87 08/05/20 11:15 88 22 111/72 (85) 95 08/05/20 11:00 97 22 107/66 (80) 97 08/05/20 11:00 22 107/66 Mechanical Ventilator 100 08/05/20 11:00 22 107/66 Mechanical Ventilator 100 08/05/20 10:49 100 22 100 08/05/20 10:45 119 19 129/73 (91) 75 08/05/20 10:40 108 19 133/70 (91) 84 08/05/20 10:33 89/49 08/05/20 10:30 101 23 89/49 (62) 08/05/20 10:15 103 26 90/48 (62) 97 08/05/20 10:00 102 24 / (66) 99 08/05/20 10:00 24 97/51 Mechanical Ventilator 100 08/05/20 10:00 24 97/ Mechanical Ventilator 100 Intake and Output 08/05/20 08/06/20 19:00 07:00 Intake Total 1589.375 ml 1460.0 ml Output Total 1370 ml 990 ml Balance 219.375 ml 470.0 ml Free Water 60 ml IV Total 929.375 ml 740.0 ml Tube Feeding 660 ml 660 ml Output Urine Total 870 ml 850 ml Stool Total 500 ml 140 ml General Appearance: no acute distress HEENT: normocephalic Respiratory: decreased breath sounds Cardiovascular: normal peripheral pulses Abdomen: normal bowel sounds Laboratory Tests 08/06/20 06:30: White Blood Count 20.0H, Red Blood Count 3.08L, Hemoglobin 8.7L, Hematocrit 27.8L, Mean Corpuscular Volume 90, Mean Corpuscular Hemoglobin 28.4, Mean Corpuscular Hemoglobin Concent 31.4L, Red Cell Distribution Width 14.9H, Platelet Count 152, Mean Platelet Volume 7.8, Neutrophils (%) (Auto) , Lymphocytes (%) (Auto) , Monocytes (%) (Auto) , Eosinophils (%) (Auto) , Basophi ls (%) (Auto) , Differential Total Cells Counted 100, Neutrophils % (Manual) 91H , Lymphocytes % (Manual) 6L, Monocytes % (Manual) 3, Eosinophils % (Manual) 0, Basophils % (Manual) 0, Band Neutrophils 0, Platelet Estimate Adequate, Platelet Morphology Normal, Polychromasia 1+, Hypochromasia 1+, Anisocytosis 1+, Sodium Level 145, Potassium Level 4.6, Chloride Level 109H, Carbon Dioxide Level 32, Anion Gap 4L, Blood Urea Nitrogen 31H, Creatinine 0.7, Estimat Glomerular Filtration Rate > 60, Glucose Level 265H, Calcium Level 8.5 Current Medications Medications (Trade) Dose Ordered Sig/Marian Route PRN Reason Start Time Stop Time Status Last Admin Dose Admin Acetaminophen (Tylenol) 650 mg Q4H PRN RECTAL Temp >100.5 07/18/20 18:30 08/17/20 18:29 08/01/20 16:50 Acetaminophen (Tylenol) 650 mg Q6H PRN ORAL For Pain 07/07/20 15:45 08/06/20 15:44 08/02/20 18:59 Acetaminophen (Tylenol) 650 mg Q6H PRN ORAL FEVER 07/07/20 16:15 08/06/20 16:14 07/30/20 12:36 Benzonatate (Tessalon Perles) 100 mg TIDPRN PRN ORAL For Cough 07/18/20 18:30 08/17/20 18:29 Cefepime HCl 2 gm/ Dextrose 55 ml @ 110 mls/hr Q12HR IVPB 07/22/20 13:00 08/10/20 12:59 08/06/20 08:59 Chlorhexidine Gluconate (Rafaela-Hex 2%) 1 applic DAILY@2000 TOPIC 08/01/20 20:00 10/30/20 19:59 08/05/20 20:19 Dextrose (Dextrose 50%) 25 ml Q30M PRN IV Hypoglycemia 07/07/20 15:45 10/05/20 15:44 Dextrose (Dextrose 50%) 50 ml Q30M PRN IV Hypoglycemia 07/07/20 15:45 10/05/20 15:44 Enoxaparin Sodium (Lovenox) 70 mg EVERY 12 HOURS SUBQ 07/25/20 21:00 10/23/20 20:59 08/01/20 21:23 Famotidine (Pepcid I.v.) 20 mg Q12HR IVP 07/20/20 09:00 08/19/20 08:59 08/06/20 09:14 Fentanyl Citrate 250 ml @ 1 mls/hr Q24H PRN IV SEDATION 08/05/20 00:00 08/07/20 00:00 08/06/20 03:25 Insulin Aspart (NovoLOG) Q6HR SUBQ 07/26/20 12:00 10/24/20 11:59 08/06/20 06:19 Insulin Detemir (Levemir) 30 units Q12HR SUBQ 08/01/20 21:00 10/24/20 10:29 08/06/20 08:59 Methylprednisolone Sodium Succinate (Solu-MEDROL) 20 mg EVERY 6 HOURS IVP 07/22/20 12:00 10/19/20 08:59 08/06/20 06:20 Metoprolol Tartrate (Lopressor) 25 mg EVERY 12 HOURS NG 07/26/20 21:00 10/24/20 20:59 08/04/20 20:45 Midazolam HCl 200 ml @ 0 mls/hr Q24H PRN IV Agitation 08/05/20 16:30 08/07/20 16:29 08/06/20 04:47 Norepinephrine Bitartrate 250 ml @ 0 mls/hr Q24H PRN IV For hypotension 08/05/20 08:00 08/08/20 07:47 08/05/20 10:33 Sorbitol (sorbitoL) 45 ml Q12HR PRN ORAL Constipation 07/30/20 09:15 08/29/20 09:14 Assessment/Plan Assessment/Plan 1. COVID-19 pneumonia. - COVID-19 PCR positive (07/07) - s/p remdexsivir - s/p azithromycin - CXR (07/13) no significant change - f/u rapid COVID-19 (07/31) negative -> now off isolation 2. Hypoxemic respiratory distress - s/p decadron (07/08-07/17) - now on Solu-Medrol - intubated; on AC mode - FiO2 100 -> 80-> 100%; continue PEEP 7->8 -> 10-> 8 - episodically desaturates to 70% 3. Hypertension. - Required central line 08/01/20 -on Levophed 4. Diabetes mellitus. -on insulin sliding scale 5. DVT ppx - on Lovenox, full dose empirically; on hold now due to epistaxis - will get V/D US -> SCD if negative 6. Sputum Cx shows pseudomonas and cony - continue cefepime per ID 7. Suspect bacterial infection given leukocytosis - s/p Diflucan - On Cefepime - s/p IV Vanco - s/p IV Bactrim for possible PJP 8. Pulmonary edema -Off lasix gtt Discussed with bedside RN. No further epistaxis and oral bleeding Hold Lovenox Will give FFP Transfuse prn On Vu Pierre MD Aug 06, 2020 09:49
--- NOTE | 2020-08-06 10:11 | Diagnostic Imaging Report ---
EXAM: XR Chest, 1 View CLINICAL HISTORY: PLEFF TECHNIQUE: Frontal view of the chest. COMPARISON: 07/22/20 FINDINGS: Lungs: There is been slight interval worsening of moderate diffuse bilateral alveolar infiltrates. Pleural space: Unremarkable. No pneumothorax. Heart: Unremarkable. No cardiomegaly. Mediastinum: Unremarkable. Bones/joints: Unremarkable. Tubes, lines and devices: There is an endotracheal tube with its tip 2 cm above the yareli. There is an NG tube below the hemidiaphragm. The tip is not included on the study. IMPRESSION: There is been slight interval worsening of moderate diffuse bilateral alveolar infiltrates.
--- NOTE | 2020-08-06 10:15 | Infectious Diseases Prog Note ---
Assessment/Plan Assessment/Plan antibiotics : cefepime A 1. covid 19 pneumonia on 100 % Fio2 with 89 % saturation 2. pseudomonas pneumonia 3. respiratory failure 4. leucocytosis improving 5. diabetes mellitus P 1. continue cefepime 3 more days 2. will follow up cultures Subjective ROS Limited/Unobtainable: Yes Allergies: Coded Allergies: No Known Allergies (Unverified , 07/07/20) Objective Last 24 Hour Vital Signs Date Time Temp Pulse Resp B/P (MAP) Pulse Ox O2 Delivery O2 Flow Rate FiO2 08/06/20 09:28 106 25 100 08/06/20 09:15 115 26 126/71 (89) 89 08/06/20 09:00 104 25 120/81 (94) 08/06/20 09:00 25 120/81 Mechanical Ventilator 100 08/06/20 09:00 25 120/81 Mechanical Ventilator 100 08/06/20 08:52 124 22 142/75 (97) 82 08/06/20 08:47 112 18 79/50 (60) 90 08/06/20 08:39 122 26 144/80 (101) 32 08/06/20 08:30 88 23 88/56 (67) 85 08/06/20 08:15 83 25 93/57 (69) 84 08/06/20 08:00 99.0 85 26 104/68 (80) 83 08/06/20 08:00 26 104/68 Mechanical Ventilator 100 08/06/20 08:00 26 104/68 Mechanical Ventilator 100 08/06/20 08:00 Mechanical Ventilator 08/06/20 08:00 100 08/06/20 07:52 89 08/06/20 07:15 125 24 115/60 (78) 40 08/06/20 07:12 93 25 100 08/06/20 07:00 110 23 113/62 (79) 69 08/06/20 07:00 23 113/62 Mechanical Ventilator 100 08/06/20 07:00 23 113/62 Mechanical Ventilator 100 08/06/20 06:00 22 99/64 Mechanical Ventilator 100 08/06/20 06:00 100 22 110/73 (85) 71 08/06/20 05:30 101 22 107/73 (84) 71 08/06/20 05:00 22 107/64 Mechanical Ventilator 100 08/06/20 05:00 22 107/64 Mechanical Ventilator 100 08/06/20 05:00 132 22 119/66 (83) 71 08/06/20 04:47 25 177/105 Mechanical Ventilator 100 08/06/20 04:47 25 177/105 Mechanical Ventilator 100 08/06/20 04:30 93 25 152/86 (108) 81 08/06/20 04:00 100 08/06/20 04:00 108 08/06/20 04:00 22 137/56 Mechanical Ventilator 100 08/06/20 04:00 22 137/56 Mechanical Ventilator 100 08/06/20 04:00 Mechanical Ventilator 08/06/20 04:00 98.8 92 25 155/85 (108) 81 08/06/20 03:30 85 22 128/78 (95) 94 08/06/20 03:25 22 122/74 Mechanical Ventilator 100 08/06/20 03:14 72 22 100 08/06/20 03:00 67 22 112/74 (87) 93 08/06/20 03:00 22 129/74 Mechanical Ventilator 100 08/06/20 03:00 22 129/74 Mechanical Ventilator 100 08/06/20 02:30 70 22 107/74 (85) 93 08/06/20 02:00 22 114/72 Mechanical Ventilator 100 08/06/20 02:00 22 114/72 Mechanical Ventilator 100 08/06/20 02:00 76 23 99/58 (72) 91 08/06/20 01:30 72 25 105/67 (80) 92 08/06/20 01:00 70 24 111/69 (83) 92 08/06/20 01:00 22 106/63 Mechanical Ventilator 100 08/06/20 01:00 22 106/63 Mechanical Ventilator 100 08/06/20 00:30 72 22 110/72 (85) 98 08/06/20 00:15 69 22 100/71 (81) 98 08/06/20 00:00 99.4 72 22 100/64 (76) 98 08/06/20 00:00 90 08/06/20 00:00 22 100/71 Mechanical Ventilator 100 08/06/20 00:00 22 100/71 Non-Rebreather 100 08/06/20 00:00 100 08/06/20 00:00 Mechanical Ventilator 08/05/20 23:45 74 22 97/60 (72) 98 08/05/20 23:30 70 22 97/62 (74) 98 08/05/20 23:17 58 22 100 08/05/20 23:02 22 115/76 Mechanical Ventilator 100 08/05/20 23:00 22 118/73 Mechanical Ventilator 100 08/05/20 23:00 65 22 115/76 (89) 98 08/05/20 22:30 68 22 117/75 (89) 97 08/05/20 22:00 22 118/73 Mechanical Ventilator 100 08/05/20 22:00 22 118/73 Mechanical Ventilator 100 08/05/20 22:00 67 22 105/73 (84) 98 08/05/20 21:30 76 22 97/60 (72) 97 08/05/20 21:00 73 22 95/62 (73) 98 08/05/20 21:00 22 96/59 Mechanical Ventilator 100 08/05/20 21:00 22 96/59 Mechanical Ventilator 100 08/05/20 21:00 67 90/60 08/05/20 20:45 69 22 108/71 (83) 98 08/05/20 20:30 70 22 103/72 (82) 98 08/05/20 20:15 70 22 106/70 (82) 98 08/05/20 20:00 92 08/05/20 20:00 99.0 73 22 107/71 (83) 97 08/05/20 20:00 22 106/70 Mechanical Ventilator 100 08/05/20 20:00 22 106/70 Mechanical Ventilator 100 08/05/20 20:00 Mechanical Ventilator 08/05/20 20:00 100 08/05/20 19:22 80 22 100 08/05/20 19:00 22 113/67 Mechanical Ventilator 100 08/05/20 19:00 22 113/67 Mechanical Ventilator 100 08/05/20 19:00 81 22 113/67 (82) 96 08/05/20 18:00 22 108/71 Mechanical Ventilator 100 08/05/20 18:00 22 108/71 Mechanical Ventilator 100 08/05/20 18:00 71 22 108/71 (83) 99 08/05/20 17:30 69 22 108/71 (83) 99 08/05/20 17:16 22 103/73 Mechanical Ventilator 100 08/05/20 17:15 71 22 100 08/05/20 17:00 69 22 103/73 (83) 98 08/05/20 17:00 22 103/73 Mechanical Ventilator 100 08/05/20 17:00 22 103/73 Mechanical Ventilator 100 08/05/20 16:31 22 108/70 Mechanical Ventilator 100 08/05/20 16:30 72 22 108/70 (83) 96 08/05/20 16:00 100 08/05/20 16:00 22 131/89 Mechanical Ventilator 100 08/05/20 16:00 22 131/89 Mechanical Ventilator 100 08/05/20 16:00 Mechanical Ventilator 08/05/20 16:00 97.5 64 22 131/89 (103) 96 08/05/20 15:30 70 22 137/92 (107) 96 08/05/20 15:17 80 08/05/20 15:10 78 22 100 08/05/20 15:00 73 22 107/71 (83) 97 08/05/20 15:00 22 107/71 Mechanical Ventilator 100 08/05/20 15:00 22 107/71 Mechanical Ventilator 100 08/05/20 14:30 75 22 105/68 (80) 96 08/05/20 14:00 22 105/68 Mechanical Ventilator 100 08/05/20 14:00 22 105/68 Mechanical Ventilator 100 08/05/20 14:00 77 22 105/68 (80) 96 08/05/20 13:30 76 22 103/65 (78) 96 08/05/20 13:09 77 22 100 08/05/20 13:00 78 23 104/64 (77) 95 08/05/20 13:00 23 104/64 Mechanical Ventilator 100 08/05/20 13:00 23 104/64 Mechanical Ventilator 100 08/05/20 12:30 79 22 101/66 (78) 95 08/05/20 12:00 98.0 79 22 103/67 (79) 96 08/05/20 12:00 100 08/05/20 12:00 Mechanical Ventilator 08/05/20 12:00 22 103/67 Mechanical Ventilator 100 08/05/20 12:00 22 103/67 Mechanical Ventilator 100 08/05/20 11:41 22 106/70 Mechanical Ventilator 100 08/05/20 11:30 85 22 106/70 (82) 95 08/05/20 11:23 87 08/05/20 11:15 88 22 111/72 (85) 95 08/05/20 11:00 97 22 107/66 (80) 97 08/05/20 11:00 22 107/66 Mechanical Ventilator 100 08/05/20 11:00 22 107/66 Mechanical Ventilator 100 08/05/20 10:49 100 22 100 08/05/20 10:45 119 19 129/73 (91) 75 08/05/20 10:40 108 19 133/70 (91) 84 08/05/20 10:33 89/49 08/05/20 10:30 101 23 89/49 (62) 08/05/20 10:15 103 26 90/48 (62) 97 Height (Feet): 5 Height (Inches): 3.00 Weight (Pounds): 162 Laboratory Tests Test 08/06/20 06:30 White Blood Count 20.0 K/UL (4.8-10.8) H Red Blood Count 3.08 M/UL (4.20-5.40) L Hemoglobin 8.7 G/DL (12.0-16.0) L Hematocrit 27.8 % (37.0-47.0) L Mean Corpuscular Volume 90 FL (80-99) Mean Corpuscular Hemoglobin 28.4 PG (27.0-31.0) Mean Corpuscular Hemoglobin Concent 31.4 G/DL (32.0-36.0) L Red Cell Distribution Width 14.9 % (11.6-14.8) H Platelet Count 152 K/UL (150-450) Mean Platelet Volume 7.8 FL (6.5-10.1) Neutrophils (%) (Auto) % (45.0-75.0) Lymphocytes (%) (Auto) % (20.0-45.0) Monocytes (%) (Auto) % (1.0-10.0) Eosinophils (%) (Auto) % (0.0-3.0) Basophils (%) (Auto) % (0.0-2.0) Differential Total Cells Counted 100 Neutrophils % (Manual) 91 % (45-75) H Lymphocytes % (Manual) 6 % (20-45) L Monocytes % (Manual) 3 % (1-10) Eosinophils % (Manual) 0 % (0-3) Basophils % (Manual) 0 % (0-2) Band Neutrophils 0 % (0-8) Platelet Estimate Adequate Platelet Morphology Normal Polychromasia 1+ Hypochromasia 1+ Anisocytosis 1+ Sodium Level 145 MMOL/L (136-145) Potassium Level 4.6 MMOL/L (3.5-5.1) Chloride Level 109 MMOL/L (98-107) H Carbon Dioxide Level 32 MMOL/L (21-32) Anion Gap 4 mmol/L (5-15) L Blood Urea Nitrogen 31 mg/dL (7-18) H Creatinine 0.7 MG/DL (0.55-1.30) Estimat Glomerular Filtration Rate > 60 mL/min (>60) Glucose Level 265 MG/DL (74-106) H Calcium Level 8.5 MG/DL (8.5-10.1) Current Medications Medications (Trade) Dose Ordered Sig/Marian Route PRN Reason Start Time Stop Time Status Last Admin Dose Admin Acetaminophen (Tylenol) 650 mg Q4H PRN RECTAL Temp >100.5 07/18/20 18:30 08/17/20 18:29 08/01/20 16:50 Acetaminophen (Tylenol) 650 mg Q6H PRN ORAL For Pain 07/07/20 15:45 08/06/20 15:44 08/02/20 18:59 Acetaminophen (Tylenol) 650 mg Q6H PRN ORAL FEVER 07/07/20 16:15 08/06/20 16:14 07/30/20 12:36 Benzonatate (Tessalon Perles) 100 mg TIDPRN PRN ORAL For Cough 07/18/20 18:30 08/17/20 18:29 Cefepime HCl 2 gm/ Dextrose 55 ml @ 110 mls/hr Q12HR IVPB 07/22/20 13:00 08/10/20 12:59 08/06/20 08:59 Chlorhexidine Gluconate (Rafaela-Hex 2%) 1 applic DAILY@2000 TOPIC 08/01/20 20:00 10/30/20 19:59 08/05/20 20:19 Dextrose (Dextrose 50%) 25 ml Q30M PRN IV Hypoglycemia 07/07/20 15:45 10/05/20 15:44 Dextrose (Dextrose 50%) 50 ml Q30M PRN IV Hypoglycemia 07/07/20 15:45 10/05/20 15:44 Enoxaparin Sodium (Lovenox) 70 mg EVERY 12 HOURS SUBQ 07/25/20 21:00 10/23/20 20:59 08/01/20 21:23 Famotidine (Pepcid I.v.) 20 mg Q12HR IVP 07/20/20 09:00 08/19/20 08:59 08/06/20 09:14 Fentanyl Citrate 250 ml @ 1 mls/hr Q24H PRN IV SEDATION 08/05/20 00:00 08/07/20 00:00 08/06/20 03:25 Insulin Aspart (NovoLOG) Q6HR SUBQ 07/26/20 12:00 10/24/20 11:59 08/06/20 06:19 Insulin Detemir (Levemir) 30 units Q12HR SUBQ 08/01/20 21:00 10/24/20 10:29 08/06/20 08:59 Methylprednisolone Sodium Succinate (Solu-MEDROL) 20 mg EVERY 6 HOURS IVP 07/22/20 12:00 10/19/20 08:59 08/06/20 06:20 Metoprolol Tartrate (Lopressor) 25 mg EVERY 12 HOURS NG 07/26/20 21:00 10/24/20 20:59 08/04/20 20:45 Midazolam HCl 200 ml @ 0 mls/hr Q24H PRN IV Agitation 08/05/20 16:30 08/07/20 16:29 08/06/20 04:47 Norepinephrine Bitartrate 250 ml @ 0 mls/hr Q24H PRN IV For hypotension 08/05/20 08:00 08/08/20 07:47 08/05/20 10:33 Sorbitol (sorbitoL) 45 ml Q12HR PRN ORAL Constipation 07/30/20 09:15 08/29/20 09:14 Lynne Gonzalez MD Aug 06, 2020 10:15
--- NOTE | 2020-08-06 10:24 | NUR ---
RESPIRATORY NOTE: ABG drawn at this time. Results reported to Iesha GAINES.
--- NOTE | 2020-08-06 10:43 | NUR ---
NURSE NOTES: Left message to Dr. Edward regarding today's ABG results. Awaiting for call back.
--- NOTE | 2020-08-06 11:21 | NUR ---
NURSE NOTES: Dr. Edward called back, with orders to increase vent settings PEEP from 8 to 10. And can increase to PEEP 12 if patient still desaturate with PEEP of 10.
--- NOTE | 2020-08-06 11:25 | NUR ---
RESPIRATORY NOTE: PEEP increased to [address] Edward. SpO2 improved from 77% to 91%. Iesha Garcia aware. Will continue to monitor.
--- NOTE | 2020-08-06 11:52 | Cardiology Progress Note ---
Assessment/Plan Status: not improved Assessment/Plan 1. COVID-19 viral PNA s/p remdesivir and dexamethasone WBCs elevated 2. Respiratory failure 2/2 acute PNA Intubated 07/25/20 3. HFpEF acute on chronic diastolic HF with preserved EF EF 65%, per repeat echo post intubation Lasix for diuresis as needed 4. 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 Sinus tachycardia 2/2 fever and infection 7. Hypotension 2/2 shock, Levophed as needed Hypotensive with worsening infiltrative disease, pressors off and on, still vent dependent. Levophed per critical care team, wean off as tolerated. Repeat echo shows no change. Lasix as needed per pulmonlogy recs. Subjective ROS Limited/Unobtainable: Yes Subjective Hypotensive requiring pressors. ABG done, CXR shows worsening infiltrates. Intubated and on vent, in sinus rhythm. Seen in ICU Objective Last 24 Hour Vital Signs Date Time Temp Pulse Resp B/P (MAP) Pulse Ox O2 Delivery O2 Flow Rate FiO2 08/06/20 11:25 106 24 100 08/06/20 11:25 100 08/06/20 11:24 23 130/90 Mechanical Ventilator 100 08/06/20 11:00 102 22 128/84 (99) 77 08/06/20 11:00 22 128/84 Mechanical Ventilator 100 08/06/20 10:45 129 14 107/66 (80) 08/06/20 10:30 99 25 135/80 (98) 81 08/06/20 10:30 100 22 100 08/06/20 10:15 107 22 127/80 (96) 91 08/06/20 10:00 120 14 104/58 (73) 81 08/06/20 10:00 14 104/58 Mechanical Ventilator 100 08/06/20 10:00 14 104/58 Mechanical Ventilator 100 08/06/20 09:45 24 137/85 Mechanical Ventilator 100 08/06/20 09:45 99 24 137/85 (102) 08/06/20 09:30 22 138/90 Mechanical Ventilator 100 08/06/20 09:30 103 22 138/90 (106) 08/06/20 09:28 106 25 100 08/06/20 09:15 115 26 126/71 (89) 89 08/06/20 09:15 26 126/71 Mechanical Ventilator 100 08/06/20 09:00 104 25 120/81 (94) 08/06/20 09:00 25 120/81 Mechanical Ventilator 100 08/06/20 09:00 25 120/81 Mechanical Ventilator 100 08/06/20 08:52 124 22 142/75 (97) 82 08/06/20 08:47 112 18 79/50 (60) 90 08/06/20 08:39 122 26 144/80 (101) 32 08/06/20 08:30 88 23 88/56 (67) 85 08/06/20 08:15 83 25 93/57 (69) 84 08/06/20 08:00 99.0 85 26 104/68 (80) 83 08/06/20 08:00 26 104/68 Mechanical Ventilator 100 08/06/20 08:00 26 104/68 Mechanical Ventilator 100 08/06/20 08:00 Mechanical Ventilator 08/06/20 08:00 100 08/06/20 07:52 89 08/06/20 07:15 125 24 115/60 (78) 40 08/06/20 07:12 93 25 100 08/06/20 07:00 110 23 113/62 (79) 69 08/06/20 07:00 23 113/62 Mechanical Ventilator 100 08/06/20 07:00 23 113/62 Mechanical Ventilator 100 08/06/20 06:00 22 99/64 Mechanical Ventilator 100 08/06/20 06:00 100 22 110/73 (85) 71 08/06/20 05:30 101 22 107/73 (84) 71 08/06/20 05:00 22 107/64 Mechanical Ventilator 100 08/06/20 05:00 22 107/64 Mechanical Ventilator 100 08/06/20 05:00 132 22 119/66 (83) 71 08/06/20 04:47 25 177/105 Mechanical Ventilator 100 08/06/20 04:47 25 177/105 Mechanical Ventilator 100 08/06/20 04:30 93 25 152/86 (108) 81 08/06/20 04:00 100 08/06/20 04:00 108 08/06/20 04:00 22 137/56 Mechanical Ventilator 100 08/06/20 04:00 22 137/56 Mechanical Ventilator 100 08/06/20 04:00 Mechanical Ventilator 08/06/20 04:00 98.8 92 25 155/85 (108) 81 08/06/20 03:30 85 22 128/78 (95) 94 08/06/20 03:25 22 122/74 Mechanical Ventilator 100 08/06/20 03:14 72 22 100 08/06/20 03:00 67 22 112/74 (87) 93 08/06/20 03:00 22 129/74 Mechanical Ventilator 100 08/06/20 03:00 22 129/74 Mechanical Ventilator 100 08/06/20 02:30 70 22 107/74 (85) 93 08/06/20 02:00 22 114/72 Mechanical Ventilator 100 08/06/20 02:00 22 114/72 Mechanical Ventilator 100 08/06/20 02:00 76 23 99/58 (72) 91 08/06/20 01:30 72 25 105/67 (80) 92 08/06/20 01:00 70 24 111/69 (83) 92 08/06/20 01:00 22 106/63 Mechanical Ventilator 100 08/06/20 01:00 22 106/63 Mechanical Ventilator 100 08/06/20 00:30 72 22 110/72 (85) 98 08/06/20 00:15 69 22 100/71 (81) 98 08/06/20 00:00 99.4 72 22 100/64 (76) 98 08/06/20 00:00 90 08/06/20 00:00 22 100/71 Mechanical Ventilator 100 08/06/20 00:00 22 100/71 Non-Rebreather 100 08/06/20 00:00 100 08/06/20 00:00 Mechanical Ventilator 08/05/20 23:45 74 22 97/60 (72) 98 08/05/20 23:30 70 22 97/62 (74) 98 08/05/20 23:17 58 22 100 08/05/20 23:02 22 115/76 Mechanical Ventilator 100 08/05/20 23:00 22 118/73 Mechanical Ventilator 100 08/05/20 23:00 65 22 115/76 (89) 98 08/05/20 22:30 68 22 117/75 (89) 97 08/05/20 22:00 22 118/73 Mechanical Ventilator 100 08/05/20 22:00 22 118/73 Mechanical Ventilator 100 08/05/20 22:00 67 22 105/73 (84) 98 08/05/20 21:30 76 22 97/60 (72) 97 08/05/20 21:00 73 22 95/62 (73) 98 08/05/20 21:00 22 96/59 Mechanical Ventilator 100 08/05/20 21:00 22 96/59 Mechanical Ventilator 100 08/05/20 21:00 67 90/60 08/05/20 20:45 69 22 108/71 (83) 98 08/05/20 20:30 70 22 103/72 (82) 98 08/05/20 20:15 70 22 106/70 (82) 98 08/05/20 20:00 92 08/05/20 20:00 99.0 73 22 107/71 (83) 97 08/05/20 20:00 22 106/70 Mechanical Ventilator 100 08/05/20 20:00 22 106/70 Mechanical Ventilator 100 08/05/20 20:00 Mechanical Ventilator 08/05/20 20:00 100 08/05/20 19:22 80 22 100 08/05/20 19:00 22 113/67 Mechanical Ventilator 100 08/05/20 19:00 22 113/67 Mechanical Ventilator 100 08/05/20 19:00 81 22 113/67 (82) 96 08/05/20 18:00 22 108/71 Mechanical Ventilator 100 08/05/20 18:00 22 108/71 Mechanical Ventilator 100 08/05/20 18:00 71 22 108/71 (83) 99 08/05/20 17:30 69 22 108/71 (83) 99 08/05/20 17:16 22 103/73 Mechanical Ventilator 100 08/05/20 17:15 71 22 100 08/05/20 17:00 69 22 103/73 (83) 98 08/05/20 17:00 22 103/73 Mechanical Ventilator 100 08/05/20 17:00 22 103/73 Mechanical Ventilator 100 08/05/20 16:31 22 108/70 Mechanical Ventilator 100 08/05/20 16:30 72 22 108/70 (83) 96 08/05/20 16:00 100 08/05/20 16:00 22 131/89 Mechanical Ventilator 100 08/05/20 16:00 22 131/89 Mechanical Ventilator 100 08/05/20 16:00 Mechanical Ventilator 08/05/20 16:00 97.5 64 22 131/89 (103) 96 08/05/20 15:30 70 22 137/92 (107) 96 08/05/20 15:17 80 08/05/20 15:10 78 22 100 08/05/20 15:00 73 22 107/71 (83) 97 08/05/20 15:00 22 107/71 Mechanical Ventilator 100 08/05/20 15:00 22 107/71 Mechanical Ventilator 100 08/05/20 14:30 75 22 105/68 (80) 96 08/05/20 14:00 22 105/68 Mechanical Ventilator 100 08/05/20 14:00 22 105/68 Mechanical Ventilator 100 08/05/20 14:00 77 22 105/68 (80) 96 08/05/20 13:30 76 22 103/65 (78) 96 08/05/20 13:09 77 22 100 08/05/20 13:00 78 23 104/64 (77) 95 08/05/20 13:00 23 104/64 Mechanical Ventilator 100 08/05/20 13:00 23 104/64 Mechanical Ventilator 100 08/05/20 12:30 79 22 101/66 (78) 95 08/05/20 12:00 98.0 79 22 103/67 (79) 96 08/05/20 12:00 100 08/05/20 12:00 Mechanical Ventilator 08/05/20 12:00 22 103/67 Mechanical Ventilator 100 08/05/20 12:00 22 103/67 Mechanical Ventilator 100 General Appearance: no apparent distress, on vent Neck: no JVD Rhythm: NSR Cardiovascular: normal rate, regular rhythm Respiratory/Chest: decreased breath sounds Abdomen: soft Extremities: trace edema Neurologic: sensory deficit Intake and Output 08/05/20 08/06/20 19:00 07:00 Intake Total 1589.375 ml 1530.0 ml Output Total 1370 ml 990 ml Balance 219.375 ml 540.0 ml Free Water 60 ml IV Total 929.375 ml 810.0 ml Tube Feeding 660 ml 660 ml Output Urine Total 870 ml 850 ml Stool Total 500 ml 140 ml Laboratory Tests Test 08/06/20 06:30 08/06/20 10:24 White Blood Count 20.0 K/UL (4.8-10.8) H Red Blood Count 3.08 M/UL (4.20-5.40) L Hemoglobin 8.7 G/DL (12.0-16.0) L Hematocrit 27.8 % (37.0-47.0) L Mean Corpuscular Volume 90 FL (80-99) Mean Corpuscular Hemoglobin 28.4 PG (27.0-31.0) Mean Corpuscular Hemoglobin Concent 31.4 G/DL (32.0-36.0) L Red Cell Distribution Width 14.9 % (11.6-14.8) H Platelet Count 152 K/UL (150-450) Mean Platelet Volume 7.8 FL (6.5-10.1) Neutrophils (%) (Auto) % (45.0-75.0) Lymphocytes (%) (Auto) % (20.0-45.0) Monocytes (%) (Auto) % (1.0-10.0) Eosinophils (%) (Auto) % (0.0-3.0) Basophils (%) (Auto) % (0.0-2.0) Differential Total Cells Counted 100 Neutrophils % (Manual) 91 % (45-75) H Lymphocytes % (Manual) 6 % (20-45) L Monocytes % (Manual) 3 % (1-10) Eosinophils % (Manual) 0 % (0-3) Basophils % (Manual) 0 % (0-2) Band Neutrophils 0 % (0-8) Platelet Estimate Adequate Platelet Morphology Normal Polychromasia 1+ Hypochromasia 1+ Anisocytosis 1+ Sodium Level 145 MMOL/L (136-145) Potassium Level 4.6 MMOL/L (3.5-5.1) Chloride Level 109 MMOL/L (98-107) H Carbon Dioxide Level 32 MMOL/L (21-32) Anion Gap 4 mmol/L (5-15) L Blood Urea Nitrogen 31 mg/dL (7-18) H Creatinine 0.7 MG/DL (0.55-1.30) Estimat Glomerular Filtration Rate > 60 mL/min (>60) Glucose Level 265 MG/DL (74-106) H Calcium Level 8.5 MG/DL (8.5-10.1) Arterial Blood pH 7.293 (7.350-7.450) Arterial Blood Partial Pressure CO2 60.2 mmHg (35.0-45.0) *H Arterial Blood Partial Pressure O2 51.8 mmHg (75.0-100.0) L Arterial Blood HCO3 28.5 mmol/L (22.0-26.0) H Arterial Blood Oxygen Saturation 81.5 % (95-100) *L Arterial Blood Base Excess 1.2 (-2-2) Timbo Test Positive Blanca Lobato PA-C Aug 06, 2020 11:52
--- NOTE | 2020-08-06 15:29 | NUR ---
CASE MANAGEMENT:REVIEW 08/06/2020 SI: COVID PNEUMONIA VS: T 97.3 HR 90 RR 25 B/P 122/77 SATS 82% ON MECH VENT FIO2 100 LABS: WBC 20 CL 109 BUN 31 GLU 265 IS: IV VANCOMYCIN Q12 IV CEFEPIME Q12 COZAAR PO QD PEPCID PO BID LOVENOX SQ QD : ICU DCP: FROM HOME
--- NOTE | 2020-08-06 16:00 | Nephrology Progress Note ---
Assessment/Plan Problem List: (1) Hyponatremia (2) Hypoxia (3) Pneumonitis (4) Acute respiratory failure due to COVID-19 (5) DMII (diabetes mellitus, type 2) (6) HTN (hypertension) Assessment Hyponatremia, improved with saline infusion COVID-19 infection Pneumonia, acute respiratory failure, hypoxia Diabetes mellitus Hypertension Plan August 06: Labs reviewed. Renal parameters stable. Discussed with RN. Pulmonary status deteriorated. Blood pressure borderline. On FiO2 100%. Continue per pulmonary. May need pressors for BP support. Defer to prescription clerk. August 05: Labs reviewed. Renal parameters stable. Remains intubated on ventilator and full code. Continue per consultants. August 04: Labs reviewed. Renal parameters stable. Medication list reviewed. Continue per consultants. August 03: Labs reviewed. Discussed with RN. Patient n.p.o. at this time. Will start IV until feeding resumes. Continue to monitor electrolytes and renal parameters. Medication list reviewed. Continue per consultants. August 02: Labs reviewed. Serum sodium drifting down. Serum potassium remains higher than normal though improved since yesterday. Kayexalate via NG tube given and 250 cc 3% saline IV given continue to monitor renal parameters and electrolytes. August 01: Today's labs reviewed. Discussed with RN. Kayexalate for high potassium given. Hemoglobin lower. Defer transfusion to leaf conditioner. Continue to monitor electrolytes and renal parameters. July 31: No CHEM panel drawn today. Remains full code. Intubated on ventilator. FiO2 85% now. Will check lab tomorrow. Continue to monitor renal parameters. July 30: Labs reviewed. Renal parameters stable. Continue per consultants. Intubated on ventilator with FiO2 of 100%. Full code. Not much to add from renal standpoint of view at this time. July 29 labs reviewed. Serum potassium elevated. Potassium supplement was put on hold on 1 dose of Kayexalate given. Levemir dose increased. Continue to monitor renal parameters. Patient remains on 100% FiO2 on ventilator. July 28: Labs reviewed. Renal parameters stable. Remains full code. Blood sugar remains high. Levemir dose increased. Not much to add from renal standpoint of view. FiO2 now is 100%. July 27: Labs reviewed. Renal parameters stable. Low potassium addressed. FiO2 70%. Blood sugar elevated. Levemir dose is being adjusted. Continue per consultants. July 26: Labs reviewed. Renal parameters stable. Patient now intubated on ventilator in ICU. Blood sugar elevated. Levemir added. Will watch electrolytes. Main management per prescription clerk and ID. July 25: Labs reviewed. Renal parameters stable. Continue per consultants. July 24: Labs reviewed. Renal parameters stable. Continue per pulmonary. Medication list reviewed. July 23: No labs drawn today. Medication list reviewed. Continue per senior science consultant. Patient full code. July 22: Labs reviewed. Stable renal parameters. Continue per consultants. July 21: No CHEM panel drawn today. Stable from renal standpoint of view. Blood pressure stable. July 20: IV changed to D5W 50 cc an hour. Renal parameters stable. Continue per consultants. July 19: Pulmonary status remains unstable. Stable from renal standpoint of view. July 18: Labs reviewed. Stable renal parameters and electrolytes. Continue per consultants. July 17: No labs drawn today. Remains stable from renal standpoint today. July 16: No labs drawn today. Continue per consultants. Stable from renal standpoint of view. July 15: Labs reviewed. Renal parameters stable. July 14: No labs from today. Continue per current management. Check labs tomorrow. July 13: No labs drawn today. Stable from renal standpoint of view. July 12: Today's labs pending. Medication list reviewed. Continue per current management and consultants. July 11: Labs reviewed. Renal parameters stable. July 10: Labs reviewed. Renal parameters electrolytes stable. Continue per consultants. July 09: Labs reviewed. Renal parameters and electrolytes stable. Continue per ID and pulmonary. Subjective ROS Limited/Unobtainable: Yes Objective Objective Last 24 Hour Vital Signs Date Time Temp Pulse Resp B/P (MAP) Pulse Ox O2 Delivery O2 Flow Rate FiO2 08/06/20 15:00 94 20 99/51 (67) 100 08/06/20 14:00 90 22 106/71 (83) 91 08/06/20 13:45 91 22 103/69 (80) 91 08/06/20 13:30 94 22 104/67 (79) 92 08/06/20 13:15 100 22 107/69 (82) 90 08/06/20 13:06 87 22 100 08/06/20 13:00 103 22 109/69 (82) 88 08/06/20 13:00 22 109/69 Mechanical Ventilator 100 08/06/20 12:45 96 22 113/71 (85) 90 08/06/20 12:30 110 22 119/74 (89) 85 08/06/20 12:15 89 21 137/72 (93) 76 08/06/20 12:00 Mechanical Ventilator 08/06/20 12:00 90 08/06/20 12:00 97.3 96 25 122/77 (92) 82 08/06/20 12:00 25 122/77 Mechanical Ventilator 100 08/06/20 11:45 96 24 122/75 (91) 89 08/06/20 11:30 96 24 121/81 (94) 79 08/06/20 11:25 106 24 100 08/06/20 11:25 100 08/06/20 11:24 23 130/90 Mechanical Ventilator 100 08/06/20 11:15 99 22 130/90 (103) 71 08/06/20 11:00 102 22 128/84 (99) 77 08/06/20 11:00 22 128/84 Mechanical Ventilator 100 08/06/20 10:45 129 14 107/66 (80) 08/06/20 10:30 99 25 135/80 (98) 81 08/06/20 10:30 100 22 100 08/06/20 10:15 107 22 127/80 (96) 91 08/06/20 10:00 120 14 104/58 (73) 81 08/06/20 10:00 14 104/58 Mechanical Ventilator 100 08/06/20 10:00 14 104/58 Mechanical Ventilator 100 08/06/20 09:45 24 137/85 Mechanical Ventilator 100 08/06/20 09:45 99 24 137/85 (102) 08/06/20 09:30 22 138/90 Mechanical Ventilator 100 08/06/20 09:30 103 22 138/90 (106) 08/06/20 09:28 106 25 100 08/06/20 09:15 115 26 126/71 (89) 89 08/06/20 09:15 26 126/71 Mechanical Ventilator 100 08/06/20 09:00 104 25 120/81 (94) 08/06/20 09:00 25 120/81 Mechanical Ventilator 100 08/06/20 09:00 25 120/81 Mechanical Ventilator 100 08/06/20 08:52 124 22 142/75 (97) 82 08/06/20 08:47 112 18 79/50 (60) 90 08/06/20 08:39 122 26 144/80 (101) 32 08/06/20 08:30 88 23 88/56 (67) 85 08/06/20 08:15 83 25 93/57 (69) 84 08/06/20 08:00 99.0 85 26 104/68 (80) 83 08/06/20 08:00 26 104/68 Mechanical Ventilator 100 08/06/20 08:00 26 104/68 Mechanical Ventilator 100 08/06/20 08:00 Mechanical Ventilator 08/06/20 08:00 100 08/06/20 07:52 89 08/06/20 07:15 125 24 115/60 (78) 40 08/06/20 07:12 93 25 100 08/06/20 07:00 110 23 113/62 (79) 69 08/06/20 07:00 23 113/62 Mechanical Ventilator 100 08/06/20 07:00 23 113/62 Mechanical Ventilator 100 08/06/20 06:00 22 99/64 Mechanical Ventilator 100 08/06/20 06:00 100 22 110/73 (85) 71 08/06/20 05:30 101 22 107/73 (84) 71 08/06/20 05:00 22 107/64 Mechanical Ventilator 100 08/06/20 05:00 22 107/64 Mechanical Ventilator 100 08/06/20 05:00 132 22 119/66 (83) 71 08/06/20 04:47 25 177/105 Mechanical Ventilator 100 08/06/20 04:47 25 177/105 Mechanical Ventilator 100 08/06/20 04:30 93 25 152/86 (108) 81 08/06/20 04:00 100 08/06/20 04:00 108 08/06/20 04:00 22 137/56 Mechanical Ventilator 100 08/06/20 04:00 22 137/56 Mechanical Ventilator 100 08/06/20 04:00 Mechanical Ventilator 08/06/20 04:00 98.8 92 25 155/85 (108) 81 08/06/20 03:30 85 22 128/78 (95) 94 08/06/20 03:25 22 122/74 Mechanical Ventilator 100 08/06/20 03:14 72 22 100 08/06/20 03:00 67 22 112/74 (87) 93 08/06/20 03:00 22 129/74 Mechanical Ventilator 100 08/06/20 03:00 22 129/74 Mechanical Ventilator 100 08/06/20 02:30 70 22 107/74 (85) 93 08/06/20 02:00 22 114/72 Mechanical Ventilator 100 08/06/20 02:00 22 114/72 Mechanical Ventilator 100 08/06/20 02:00 76 23 99/58 (72) 91 08/06/20 01:30 72 25 105/67 (80) 92 08/06/20 01:00 70 24 111/69 (83) 92 08/06/20 01:00 22 106/63 Mechanical Ventilator 100 08/06/20 01:00 22 106/63 Mechanical Ventilator 100 08/06/20 00:30 72 22 110/72 (85) 98 08/06/20 00:15 69 22 100/71 (81) 98 08/06/20 00:00 99.4 72 22 100/64 (76) 98 08/06/20 00:00 90 08/06/20 00:00 22 100/71 Mechanical Ventilator 100 08/06/20 00:00 22 100/71 Non-Rebreather 100 08/06/20 00:00 100 08/06/20 00:00 Mechanical Ventilator 08/05/20 23:45 74 22 97/60 (72) 98 08/05/20 23:30 70 22 97/62 (74) 98 08/05/20 23:17 58 22 100 08/05/20 23:02 22 115/76 Mechanical Ventilator 100 08/05/20 23:00 22 118/73 Mechanical Ventilator 100 08/05/20 23:00 65 22 115/76 (89) 98 08/05/20 22:30 68 22 117/75 (89) 97 08/05/20 22:00 22 118/73 Mechanical Ventilator 100 08/05/20 22:00 22 118/73 Mechanical Ventilator 100 08/05/20 22:00 67 22 105/73 (84) 98 08/05/20 21:30 76 22 97/60 (72) 97 08/05/20 21:00 73 22 95/62 (73) 98 08/05/20 21:00 22 96/59 Mechanical Ventilator 100 08/05/20 21:00 22 96/59 Mechanical Ventilator 100 08/05/20 21:00 67 90/60 3/6/21 20:45 69 22 108/71 (83) 98 08/05/20 20:30 70 22 103/72 (82) 98 08/05/20 20:15 70 22 106/70 (82) 98 08/05/20 20:00 92 08/05/20 20:00 99.0 73 22 107/71 (83) 97 08/05/20 20:00 22 106/70 Mechanical Ventilator 100 08/05/20 20:00 22 106/70 Mechanical Ventilator 100 08/05/20 20:00 Mechanical Ventilator 08/05/20 20:00 100 08/05/20 19:22 80 22 100 08/05/20 19:00 22 113/67 Mechanical Ventilator 100 08/05/20 19:00 22 113/67 Mechanical Ventilator 100 08/05/20 19:00 81 22 113/67 (82) 96 08/05/20 18:00 22 108/71 Mechanical Ventilator 100 08/05/20 18:00 22 108/71 Mechanical Ventilator 100 08/05/20 18:00 71 22 108/71 (83) 99 08/05/20 17:30 69 22 108/71 (83) 99 08/05/20 17:16 22 103/73 Mechanical Ventilator 100 08/05/20 17:15 71 22 100 08/05/20 17:00 69 22 103/73 (83) 98 08/05/20 17:00 22 103/73 Mechanical Ventilator 100 08/05/20 17:00 22 103/73 Mechanical Ventilator 100 08/05/20 16:31 22 108/70 Mechanical Ventilator 100 08/05/20 16:30 72 22 108/70 (83) 96 08/05/20 16:00 100 08/05/20 16:00 22 131/89 Mechanical Ventilator 100 08/05/20 16:00 22 131/89 Mechanical Ventilator 100 08/05/20 16:00 Mechanical Ventilator 08/05/20 16:00 97.5 64 22 131/89 (103) 96 Intake and Output 08/05/20 08/06/20 19:00 07:00 Intake Total 1589.375 ml 1530.0 ml Output Total 1370 ml 990 ml Balance 219.375 ml 540.0 ml Free Water 60 ml IV Total 929.375 ml 810.0 ml Tube Feeding 660 ml 660 ml Output Urine Total 870 ml 850 ml Stool Total 500 ml 140 ml Current Medications Medications (Trade) Dose Ordered Sig/Marian Route PRN Reason Start Time Stop Time Status Last Admin Dose Admin Acetaminophen (Tylenol) 650 mg Q4H PRN RECTAL Temp >100.5 07/18/20 18:30 08/17/20 18:29 08/01/20 16:50 Acetaminophen (Tylenol) 650 mg Q6H PRN ORAL FEVER 07/07/20 16:15 08/06/20 16:14 07/30/20 12:36 Benzonatate (Tessalon Perles) 100 mg TIDPRN PRN ORAL For Cough 07/18/20 18:30 08/17/20 18:29 Cefepime HCl 2 gm/ Dextrose 55 ml @ 110 mls/hr Q12HR IVPB 07/22/20 13:00 08/10/20 12:59 08/06/20 08:59 Chlorhexidine Gluconate (Rafaela-Hex 2%) 1 applic DAILY@2000 TOPIC 08/01/20 20:00 10/30/20 19:59 08/05/20 20:19 Dextrose (Dextrose 50%) 25 ml Q30M PRN IV Hypoglycemia 07/07/20 15:45 10/05/20 15:44 Dextrose (Dextrose 50%) 50 ml Q30M PRN IV Hypoglycemia 07/07/20 15:45 10/05/20 15:44 Enoxaparin Sodium (Lovenox) 70 mg EVERY 12 HOURS SUBQ 07/25/20 21:00 10/23/20 20:59 08/01/20 21:23 Famotidine (Pepcid I.v.) 20 mg Q12HR IVP 07/20/20 09:00 08/19/20 08:59 08/06/20 09:14 Fentanyl Citrate 250 ml @ 0 mls/hr Q24H PRN IV SEDATION 08/06/20 11:14 08/08/20 11:13 08/06/20 11:24 Insulin Aspart (NovoLOG) Q6HR SUBQ 07/26/20 12:00 10/24/20 11:59 08/06/20 12:16 Insulin Detemir (Levemir) 30 units Q12HR SUBQ 08/01/20 21:00 10/24/20 10:29 08/06/20 08:59 Methylprednisolone Sodium Succinate (Solu-MEDROL) 20 mg EVERY 6 HOURS IVP 07/22/20 12:00 10/19/20 08:59 08/06/20 12:14 Metoprolol Tartrate (Lopressor) 25 mg EVERY 12 HOURS NG 07/26/20 21:00 10/24/20 20:59 08/04/20 20:45 Midazolam HCl 200 ml @ 0 mls/hr Q24H PRN IV Agitation 08/06/20 11:56 08/08/20 11:55 Norepinephrine Bitartrate 250 ml @ 0 mls/hr Q24H PRN IV For hypotension 08/05/20 08:00 08/08/20 07:47 08/05/20 10:33 Sorbitol (sorbitoL) 45 ml Q12HR PRN ORAL Constipation 07/30/20 09:15 08/29/20 09:14 Laboratory Tests 08/06/20 06:30: White Blood Count 20.0H, Red Blood Count 3.08L, Hemoglobin 8.7L, Hematocrit 27.8L, Mean Corpuscular Volume 90, Mean Corpuscular Hemoglobin 28.4, Mean Corpuscular Hemoglobin Concent 31.4L, Red Cell Distribution Width 14.9H, Plat elet Count 152, Mean Platelet Volume 7.8, Neutrophils (%) (Auto) , Lymphocytes (%) (Auto) , Monocytes (%) (Auto) , Eosinophils (%) (Auto) , Basophils (%) (Auto) , Differential Total Cells Counted 100, Neutrophils % (Manual) 91H, Lymphocytes % (Manual) 6L, Monocytes % (Manual) 3, Eosinophils % (Manual) 0, Basophils % (Manual) 0, Band Neutrophils 0, Platelet Estimate Adequate, Platelet Morphology Normal, Polychromasia 1+, Hypochromasia 1+, Anisocytosis 1+, Sodium Level 145, Potassium Level 4.6, Chloride Level 109H, Carbon Dioxide Level 32, Anion Gap 4L, Blood Urea Nitrogen 31H, Creatinine 0.7, Estimat Glomerular Filtration Rate > 60, Glucose Level 265H, Calcium Level 8.5 08/06/20 10:24: Arterial Blood pH 7.293L, Arterial Blood Partial Pressure CO2 60.2*H, Arterial Blood Partial Pressure O2 51.8L, Arterial Blood HCO3 28.5H, Arterial Blood Oxygen Saturation 81.5*L, Arterial Blood Base Excess 1.2, Timbo Test Positive Height (Feet): 5 Height (Inches): 3.00 Weight (Pounds): 162 EENT: other - Intubated on ventilator Cardiovascular: tachycardia Respiratory/Chest: decreased breath sounds Abdomen: distended Objective No change Anurag Bridges MD Aug 06, 2020 16:00
--- NOTE | 2020-08-06 16:30 | NUR ---
RESPIRATORY NOTE: Pt is tolerating new vent settings well. PT is currently on PEEP of 10. New order allows for PEEP to be increased to 12 if necessary. Large amount of bloody oral secretions obtained t/o shift. Iesha GAINES aware.
--- NOTE | 2020-08-06 19:25 | NUR ---
NURSE HAND-OFF REPORT: Latest Vital Signs: Temperature 97.2 , Pulse 87 , B/P 104 /66 , Respiratory Rate 22 , O2 SAT 97 , Mechanical Ventilator, O2 Flow Rate . Vital Sign Comment: lightly sedated RASS -2 EKG Rhythm: Sinus Rhythm Rhythm change?: N Latest Plaza Fall Score: 50 Fall Risk: High Risk Safety Measures: Call light Within Reach, Bed Alarm Zone 3, Side Rails Side Rails x2, Bed position Low and Locked. Fall Precautions: Yellow Socks Yellow Gown Door Sign Patient Fall Education Report given to Jacki Cabezas RN.
--- NOTE | 2020-08-06 19:30 | NUR ---
Received report from LIANA Julian and assumed care of patient.
--- NOTE | 2020-08-06 20:00 | NUR ---
: Assessment complete. See charting for details. Pt oral care provided, repositioned. Patient became very agitated at 2100 with BP elevated into 190's systolic. Pt dropped O2 saturation to 50's. Constant coughing and gagging on ETT and bucking/fighting vent. Increased sedation to accomplish RASS -2 and ensure adequate and appropriate ventilation and oxygenation. Patient recovered and improved saturation to 90's after approximately 20 min. Noted that Feeding was disconnected for unk reason. Upon further investigation could not determine reasoning for disconnection as no high residuals were charted and there is no order to stop feedings. Resumed feedings. Noted SCD's were shut off, resumed SCD's on patient as V/D was negative for DVT and pharmacological DVT prophylaxis is contraindicated due to severe epistaxis and need for blood transfusions. Pt remains to have bloody secretions. Will continue to monitor the patient.
[2020-08-06] MEDS: Dyna-Hex 2% Top Sol 2oz TOPIC SCH (21:17)
--- NOTE | 2020-08-06 22:30 | NUR ---
Pt stable, O2 saturation remains stable on current sedation at a RASS -2. Pt appears in NAD. Repositioned and oral care gently applied due to lip and mouth sensitivities/wounds and bleeding. Will continue to monitor.
[2020-08-07] VITALS (71 sets, daily range): BP systolic 76–187; BP diastolic 48–118
--- NOTE | 2020-08-07 00:30 | NUR ---
Pt in NAD, remains stable. Repositioned and oral care provided, will continue to monitor.
--- NOTE | 2020-08-07 02:40 | NUR ---
Pt remains in NAD, VSS oral care and repositioning provided. Will continue to monitor.
[2020-08-07] MEDS: Norepinephrine 4mg/NS Premix 250 ML IV PRN (02:49)
--- NOTE | 2020-08-07 03:31 | NUR ---
Pt remains intubated with a size 7.5 ETT secured at the 24cm maria g, current vent settings AC 22/VT450/+10/fiO2 100. Pt. maintained spo2>92% but desaturate with increased agitation. Suctioned bloody secretion orally and small thick heydi secretions through ETT. no weaning at this time due to high level of PEEP and FiO2. will continue to monitor.
[2020-08-07 05:09] LABS: HEMATOCRIT 25.7 % (37.0-47.0); HEMOGLOBIN 8.2 G/DL (12.0-16.0); MEAN CORPUSCULAR VOLUME 88 FL (80-99); PLATELET COUNT 129 K/UL (150-450); RED CELL DISTRIBUTION WIDTH 14.5 % (11.6-14.8); WHITE BLOOD COUNT 17.6 K/UL (4.8-10.8)
[2020-08-07 05:47] LABS: ALANINE AMINOTRANSFERASE 169 U/L (12-78); ALBUMIN 1.4 G/DL (3.4-5.0); ALBUMIN/GLOBULIN RATIO 0.4 (1.0-2.7); ALKALINE PHOSPHATASE 110 U/L (46-116); ANION GAP 3 mmol/L (5-15); ASPARTATE AMINO TRANSFERASE 75 U/L (15-37); BILIRUBIN,TOTAL 0.4 MG/DL (0.2-1.0); BLOOD UREA NITROGEN 30 mg/dL (7-18); CALCIUM 8.3 MG/DL (8.5-10.1); CARBON DIOXIDE 32 MMOL/L (21-32); CHLORIDE 113 MMOL/L (98-107); CREATININE 0.6 MG/DL (0.55-1.30); GAMMA GLUTAMYL TRANSPEPTIDASE 150 U/L (5-85); LACTATE DEHYDROGENASE 939 U/L (81-234); PHOSPHORUS 2.9 MG/DL (2.5-4.9); POTASSIUM 4.4 MMOL/L (3.5-5.1); SODIUM 148 MMOL/L (136-145)
[2020-08-07] MEDS: NovoLOG Insulin Flexpen SUBQ SCH ×4 (06:00→17:44)
[2020-08-07] MEDS: Solu-MEDROL 40mg Inj IVP SCH ×4 (06:16→17:11)
--- NOTE | 2020-08-07 06:19 | NUR ---
Pt remains stable and in NAD. VSS, oral care and repositioning provided. Will continue to monitor the patient. Weaned Levophed to maintain SBP >90. Pt remains afebrile.
[2020-08-07] MEDS: Versed 100mg/NS 200ml 200 ML IV PRN ×2 (06:27→15:59)
[2020-08-07] MEDS: fentaNYL 2500mcg/NS 250ml 250 ML IV PRN ×2 (06:29→17:10)
--- NOTE | 2020-08-07 07:30 | NUR ---
NURSE NOTES: Received report from LIANA Echeverria. Patient is sedated, RASS -2, opens eyes to touch. ETT 7.5/24cm at lip line with vent setting ac 22, tv 450, fio2 100%, PEEP 10. OGT intact; running tube feeds- Glucerna 1.2 @ 55mL/hr. Right femoral TLC intact and running Versed @ 7.5 mg/hr and Fentanyl 300mcg/hr. Levophed restarted @ 2mcg/min for B/P in the 80's. Pt has SCDs. Bed locked and in lowest position, with call light within reach. Will continue plan of care.
--- NOTE | 2020-08-07 08:27 | NUR ---
RD ASSESSMENT & RECOMMENDATIONS SEE CARE ACTIVITY FOR COMPLETE ASSESSMENT DAILY ESTIMATED NEEDS: Needs based on Critical care, DM, pulmonary/ 57.6kg abw 22-28 kcals/kg [id number] total kcals 1.2-2 g protein/kg 69-115 g total protein Fluid per MD, on lasix NUTRITION DIAGNOSIS: Altered nutrition related lab values R/T diabetes and steroidal med as evidenced by A1C 6.9 w/ elev POC (200's and 300's-> now improved to mid 100's), remains on solumedrol. CURRENT TF:Glucerna 1.2 @ 55ml/hr x 24 hrs at goal ENTERAL NUTRITION RECOMMENDATIONS: Glucerna 1.2 g @ 55ml/hr x24 hrs to provide 1320ml, 1584 kcal, 79g pro, 1063ml free H2O - Cont to titrate to goal as tolerated - Flush per MD - HOB over 30 degrees ADDITIONAL RECOMMENDATIONS: * Calibrated bedscale wt * Monitor K need for TF change (K 5.8 08/01, now wnl) * Monitor BGs closely w/ Solumderol, rec to increase Levemir -> NOW INCREASED, BGS IMPROVED TO MID 100'S * Monitor hemodynamic stability- NE restarted .
[2020-08-07] MEDS: Enoxaparin 80mg Inj SUBQ SCH (09:00)
--- NOTE | 2020-08-07 09:00 | NUR ---
NURSE NOTES: Dr Bridges on the unit making his rounds. Updated him on pt's current condition. No new orders given at this time.
[2020-08-07] MEDS: Cefepime HCl 2 GM in D5W 55 ML IVPB SCH ×2 (09:08→20:22)
[2020-08-07] MEDS: Levemir Flexpen SUBQ SCH ×2 (09:50→20:51)
--- NOTE | 2020-08-07 10:00 | NUR ---
NURSE NOTES: Dr Edward at bedside assessing pt. Updated him on pt's current condition. O2sat in the 60's. Dr Edward will call pt's family to update them on pt's condition.
--- NOTE | 2020-08-07 10:15 | Nephrology Progress Note ---
Assessment/Plan Problem List: (1) Hyponatremia (2) Hypoxia (3) Pneumonitis (4) Acute respiratory failure due to COVID-19 (5) DMII (diabetes mellitus, type 2) (6) HTN (hypertension) Assessment Hyponatremia, improved with saline infusion COVID-19 infection Pneumonia, acute respiratory failure, hypoxia Diabetes mellitus Hypertension Plan August 07: Labs reviewed. Renal parameters stable. Discussed with RN Helena. Pulmonary status remains precarious. On low-dose pressors now. Continue per consultants. Continue to monitor renal parameters and electrolytes. August 06: Labs reviewed. Renal parameters stable. Discussed with RN. Pulmonary status deteriorated. Blood pressure borderline. On FiO2 100%. Continue per pulmonary. May need pressors for BP support. Defer to wash driller. August 05: Labs reviewed. Renal parameters stable. Remains intubated on ventilator and full code. Continue per consultants. August 04: Labs reviewed. Renal parameters stable. Medication list reviewed. Continue per consultants. August 03: Labs reviewed. Discussed with RN. Patient n.p.o. at this time. Will start IV until feeding resumes. Continue to monitor electrolytes and renal parameters. Medication list reviewed. Continue per consultants. August 02: Labs reviewed. Serum sodium drifting down. Serum potassium remains higher than normal though improved since yesterday. Kayexalate via NG tube given and 250 cc 3% saline IV given continue to monitor renal parameters and electrolytes. August 01: Today's labs reviewed. Discussed with RN. Kayexalate for high potassium given. Hemoglobin lower. Defer transfusion to database tester. Continue to monitor electrolytes and renal parameters. July 31: No CHEM panel drawn today. Remains full code. Intubated on ventilator. FiO2 85% now. Will check lab tomorrow. Continue to monitor renal parameters. July 30: Labs reviewed. Renal parameters stable. Continue per consultants. Intubated on ventilator with FiO2 of 100%. Full code. Not much to add from renal standpoint of view at this time. July 29 labs reviewed. Serum potassium elevated. Potassium supplement was put on hold on 1 dose of Kayexalate given. Levemir dose increased. Continue to monitor renal parameters. Patient remains on 100% FiO2 on ventilator. July 28: Labs reviewed. Renal parameters stable. Remains full code. Blood sugar remains high. Levemir dose increased. Not much to add from renal standpoint of view. FiO2 now is 100%. July 27: Labs reviewed. Renal parameters stable. Low potassium addressed. FiO2 70%. Blood sugar elevated. Levemir dose is being adjusted. Continue per consultants. July 26: Labs reviewed. Renal parameters stable. Patient now intubated on ventilator in ICU. Blood sugar elevated. Levemir added. Will watch electrolytes. Main management per wash driller and ID. July 25: Labs reviewed. Renal parameters stable. Continue per consultants. July 24: Labs reviewed. Renal parameters stable. Continue per pulmonary. Medication list reviewed. July 23: No labs drawn today. Medication list reviewed. Continue per polymer materials consultant. Patient full code. July 22: Labs reviewed. Stable renal parameters. Continue per consultants. July 21: No CHEM panel drawn today. Stable from renal standpoint of view. Blood pressure stable. July 20: IV changed to D5W 50 cc an hour. Renal parameters stable. Continue per consultants. July 19: Pulmonary status remains unstable. Stable from renal standpoint of view. July 18: Labs reviewed. Stable renal parameters and electrolytes. Continue per consultants. July 17: No labs drawn today. Remains stable from renal standpoint today. July 16: No labs drawn today. Continue per consultants. Stable from renal standpoint of view. July 15: Labs reviewed. Renal parameters stable. July 14: No labs from today. Continue per current management. Check labs tomorrow. July 13: No labs drawn today. Stable from renal standpoint of view. July 12: Today's labs pending. Medication list reviewed. Continue per current management and consultants. July 11: Labs reviewed. Renal parameters stable. July 10: Labs reviewed. Renal parameters electrolytes stable. Continue per consultants. July 09: Labs reviewed. Renal parameters and electrolytes stable. Continue per ID and pulmonary. Subjective ROS Limited/Unobtainable: Yes Objective Objective Last 24 Hour Vital Signs Date Time Temp Pulse Resp B/P (MAP) Pulse Ox O2 Delivery O2 Flow Rate FiO2 08/07/20 08:00 100 08/07/20 07:39 54 22 100 08/07/20 07:30 71 22 103/68 (80) 100 08/07/20 07:15 75 22 87/51 (63) 100 08/07/20 07:00 73 22 95/58 (70) 100 08/07/20 07:00 22 95/58 Mechanical Ventilator 100 08/07/20 07:00 22 95/58 Mechanical Ventilator 100 08/07/20 06:29 22 128/78 Mechanical Ventilator 100 08/07/20 06:27 22 128/78 Mechanical Ventilator 100 08/07/20 06:15 60 22 128/78 (95) 100 08/07/20 06:00 63 22 115/78 (90) 100 08/07/20 06:00 22 101/60 Mechanical Ventilator 100 08/07/20 06:00 22 101/60 Mechanical Ventilator 100 08/07/20 05:45 66 22 110/86 (94) 100 08/07/20 05:30 64 22 122/81 (95) 99 08/07/20 05:15 59 22 111/76 (88) 100 08/07/20 05:00 65 22 107/75 (86) 98 08/07/20 05:00 22 107/75 Mechanical Ventilator 100 08/07/20 05:00 22 107/75 Mechanical Ventilator 100 08/07/20 04:45 66 22 109/76 (87) 98 08/07/20 04:30 61 22 109/80 (90) 97 08/07/20 04:15 66 22 118/75 (89) 97 08/07/20 04:00 Mechanical Ventilator 08/07/20 04:00 54 08/07/20 04:00 100 08/07/20 04:00 22 149/93 Mechanical Ventilator 100 08/07/20 04:00 22 149/93 Mechanical Ventilator 100 08/07/20 04:00 97.9 58 22 149/93 (111) 99 08/07/20 03:45 57 22 137/92 (107) 100 08/07/20 03:30 57 22 147/85 (105) 99 08/07/20 03:15 55 22 144/97 (113) 100 08/07/20 03:11 57 22 100 08/07/20 03:00 62 22 123/74 (90) 100 08/07/20 03:00 22 123/74 Mechanical Ventilator 100 08/07/20 03:00 22 123/74 Mechanical Ventilator 100 08/07/20 02:49 76/48 08/07/20 02:47 65 22 76/48 (57) 99 08/07/20 02:45 65 22 77/48 (58) 99 08/07/20 02:30 67 22 81/50 (60) 100 08/07/20 02:15 66 22 82/52 (62) 99 08/07/20 02:00 67 22 84/52 (63) 99 08/07/20 02:00 22 84/52 Mechanical Ventilator 100 08/07/20 02:00 22 84/52 Mechanical Ventilator 100 08/07/20 01:45 68 22 84/51 (62) 99 08/07/20 01:30 69 22 84/55 (65) 99 08/07/20 01:15 72 22 87/56 (66) 98 08/07/20 01:00 74 22 90/55 (67) 98 08/07/20 01:00 22 90/55 Mechanical Ventilator 100 08/07/20 01:00 22 90/55 Mechanical Ventilator 100 08/07/20 00:45 75 22 92/55 (67) 98 08/07/20 00:30 78 22 93/58 (70) 98 08/07/20 00:15 79 22 99/61 (74) 98 08/07/20 00:00 98.5 80 22 103/65 (78) 98 08/07/20 00:00 82 08/07/20 00:00 Mechanical Ventilator 08/07/20 00:00 22 103/65 Mechanical Ventilator 100 08/07/20 00:00 22 103/65 Mechanical Ventilator 100 08/06/20 23:45 83 22 105/64 (78) 97 08/06/20 23:30 87 22 105/66 (79) 98 08/06/20 23:15 83 22 106/69 (81) 97 08/06/20 23:00 38 113/58 Mechanical Ventilator 100 08/06/20 23:00 38 113/58 Mechanical Ventilator 100 08/06/20 23:00 83 22 103/71 (82) 97 08/06/20 22:45 85 22 112/71 (85) 96 08/06/20 22:31 88 22 100 08/06/20 22:30 84 22 117/75 (89) 96 08/06/20 22:15 88 22 116/76 (89) 96 08/06/20 22:00 90 22 120/77 (91) 95 08/06/20 22:00 36 119/72 Mechanical Ventilator 100 08/06/20 22:00 33 102/71 Mechanical Ventilator 33 08/06/20 21:45 93 22 118/76 (90) 95 08/06/20 21:30 97 22 119/75 (90) 94 08/06/20 21:16 40 196/110 Mechanical Ventilator 100 08/06/20 21:15 120 22 126/80 (95) 88 08/06/20 21:15 40 196/110 Mechanical Ventilator 100 08/06/20 21:09 135 24 151/88 (109) 73 08/06/20 21:00 108 25 193/112 (139) 98 08/06/20 20:45 81 22 105/70 (82) 96 08/06/20 20:30 82 22 97/69 (78) 96 08/06/20 20:15 83 22 97/67 (77) 96 08/06/20 20:00 Mechanical Ventilator 08/06/20 20:00 100 08/06/20 20:00 35 128/75 Mechanical Ventilator 100 08/06/20 20:00 84 08/06/20 20:00 98.2 84 22 97/65 (76) 96 08/06/20 19:45 85 22 94/69 (77) 96 08/06/20 19:30 84 22 104/66 (79) 96 08/06/20 19:15 87 22 97/70 (79) 96 08/06/20 19:15 87 22 100 08/06/20 19:00 22 104/66 Mechanical Ventilator 100 08/06/20 19:00 88 22 104/66 (79) 97 08/06/20 18:00 80 22 107/75 (86) 96 08/06/20 18:00 22 107/75 Mechanical Ventilator 100 08/06/20 17:00 22 112/71 Mechanical Ventilator 100 08/06/20 17:00 83 22 112/71 (85) 96 08/06/20 16:30 87 23 100 08/06/20 16:00 97.2 86 22 107/74 (85) 94 08/06/20 16:00 Mechanical Ventilator 08/06/20 16:00 22 107/74 Mechanical Ventilator 100 08/06/20 16:00 86 08/06/20 16:00 100 08/06/20 15:00 20 99/51 Mechanical Ventilator 100 08/06/20 15:00 94 20 99/51 (67) 100 08/06/20 14:55 84 22 100 08/06/20 14:00 22 106/71 Mechanical Ventilator 100 08/06/20 14:00 90 22 106/71 (83) 91 08/06/20 13:45 91 22 103/69 (80) 91 08/06/20 13:30 94 22 104/67 (79) 92 08/06/20 13:15 100 22 107/69 (82) 90 08/06/20 13:06 87 22 100 08/06/20 13:00 103 22 109/69 (82) 88 08/06/20 13:00 22 109/69 Mechanical Ventilator 100 08/06/20 12:45 96 22 113/71 (85) 90 08/06/20 12:30 110 22 119/74 (89) 85 08/06/20 12:15 89 21 137/72 (93) 76 08/06/20 12:00 Endotracheal Tube 08/06/20 12:00 90 08/06/20 12:00 97.3 96 25 122/77 (92) 82 08/06/20 12:00 25 122/77 Mechanical Ventilator 100 08/06/20 11:45 96 24 122/75 (91) 89 08/06/20 11:30 96 24 121/81 (94) 79 08/06/20 11:25 106 24 100 08/06/20 11:25 100 08/06/20 11:24 23 130/90 Mechanical Ventilator 100 08/06/20 11:15 99 22 130/90 (103) 71 08/06/20 11:00 102 22 128/84 (99) 77 08/06/20 11:00 22 128/84 Mechanical Ventilator 100 08/06/20 10:45 129 14 107/66 (80) 08/06/20 10:30 99 25 135/80 (98) 81 08/06/20 10:30 100 22 100 08/06/20 10:15 107 22 127/80 (96) 91 Intake and Output 08/06/20 08/07/20 19:00 07:00 Intake Total 1330.995 ml 915.0 ml Output Total 1325 ml 880 ml Balance 5.995 ml 35.0 ml IV Total 615.995 ml 475.0 ml Tube Feeding 715 ml 440 ml Output Urine Total 1025 ml 880 ml Stool Total 300 ml # Bowel Movements 20 Current Medications Medications (Trade) Dose Ordered Sig/Marian Route PRN Reason Start Time Stop Time Status Last Admin Dose Admin Acetaminophen (Tylenol) 650 mg Q4H PRN RECTAL Temp >100.5 07/18/20 18:30 08/17/20 18:29 08/01/20 16:50 Benzonatate (Tessalon Perles) 100 mg TIDPRN PRN ORAL For Cough 07/18/20 18:30 08/17/20 18:29 Cefepime HCl 2 gm/ Dextrose 55 ml @ 110 mls/hr Q12HR IVPB 07/22/20 13:00 08/10/20 12:59 08/07/20 09:08 Chlorhexidine Gluconate (Rafaela-Hex 2%) 1 applic DAILY@2000 TOPIC 08/01/20 20:00 10/30/20 19:59 08/06/20 21:17 Dextrose (Dextrose 50%) 25 ml Q30M PRN IV Hypoglycemia 07/07/20 15:45 10/05/20 15:44 Dextrose (Dextrose 50%) 50 ml Q30M PRN IV Hypoglycemia 07/07/20 15:45 10/05/20 15:44 Enoxaparin Sodium (Lovenox) 70 mg EVERY 12 HOURS SUBQ 07/25/20 21:00 10/23/20 20:59 08/01/20 21:23 Famotidine (Pepcid I.v.) 20 mg Q12HR IVP 07/20/20 09:00 08/19/20 08:59 08/07/20 09:07 Fentanyl Citrate 250 ml @ 0 mls/hr Q24H PRN IV SEDATION 08/06/20 11:14 08/08/20 11:13 08/07/20 06:29 Insulin Aspart (NovoLOG) Q6HR SUBQ 07/26/20 12:00 10/24/20 11:59 08/06/20 17:31 Insulin Detemir (Levemir) 30 units Q12HR SUBQ 08/01/20 21:00 10/24/20 10:29 08/07/20 09:50 Methylprednisolone Sodium Succinate (Solu-MEDROL) 20 mg EVERY 6 HOURS IVP 07/22/20 12:00 10/19/20 08:59 08/07/20 06:16 Metoprolol Tartrate (Lopressor) 25 mg EVERY 12 HOURS NG 07/26/20 21:00 10/24/20 20:59 08/04/20 20:45 Midazolam HCl 200 ml @ 0 mls/hr Q24H PRN IV Agitation 08/06/20 11:56 08/08/20 11:55 08/07/20 06:27 Norepinephrine Bitartrate 250 ml @ 0 mls/hr Q24H PRN IV For hypotension 08/05/20 08:00 08/08/20 07:47 08/07/20 02:49 Sorbitol (sorbitoL) 45 ml Q12HR PRN ORAL Constipation 07/30/20 09:15 08/29/20 09:14 Laboratory Tests 08/06/20 10:24: Arterial Blood pH 7.293L, Arterial Blood Partial Pressure CO2 60.2*H, Arterial Blood Partial Pressure O2 51.8L, Arterial Blood HCO3 28.5H, Arterial Blood Oxygen Saturation 81.5*L, Arterial Blood Base Excess 1.2, Timbo Test Positive 08/07/20 04:40: White Blood Count 17.6H, Red Blood Count 2.90L, Hemoglobin 8.2L, Hematocrit 25.7L, Mean Corpuscular Volume 88, Mean Corpuscular Hemoglobin 28.3, Mean Corpuscular Hemoglobin Concent 32.0, Red Cell Distribution Width 14.5, Platelet Count 129L, Mean Platelet Volume 7.6, Neutrophils (%) (Auto) , Lymphocytes (%) (Auto) , Monocytes (%) (Auto) , Eosinophils (%) (Auto) , Basophils (%) (Auto) , Differential Total Cells Counted 100, Neutrophils % (Manual) 95H, Lymphocytes % (Manual) 4L, Monocytes % (Manual) 1, Eosinophils % (Manual) 0, Basophils % (Manual) 0, Band Neutrophils 0, Platelet Estimate DecreasedL, Platelet Morphology Normal, Hypochromasia 1+, Sodium Level 148H, Potassium Level 4.4, Chloride Level 113H, Carbon Dioxide Level 32, Anion Gap 3L, Blood Urea Nitrogen 30H, Creatinine 0.6, Estimat Glomerular Filtration Rate > 60, Glucose Level 127#H, Lactic Acid Level 1.40, Uric Acid 2.8, Calcium Level 8.3L, Phosphorus Lev el 2.9, Magnesium Level 2.0, Total Bilirubin 0.4, Gamma Glutamyl Transpeptidase 150H, Aspartate Amino Transf (AST/SGOT) 75H, Alanine Aminotransferase (ALT/SGPT) 169H, Alkaline Phosphatase 110, Lactate Dehydrogenase 939H, Troponin I 0.088H, C-Reactive Protein, Quantitative 1.9H, Pro-B-Type Natriuretic Peptide 1459H, Total Protein 4.6L, Albumin 1.4L, Globulin 3.2, Albumin/Globulin Ratio 0.4L 08/07/20 08:26: Arterial Blood pH 7.387, Arterial Blood Partial Pressure CO2 52.7H, Arterial Blood Partial Pressure O2 71.3L, Arterial Blood HCO3 31.0H, Arterial Blood Oxygen Saturation 92.5L, Arterial Blood Base Excess 5.2H, Timbo Test Positive Height (Feet): 5 Height (Inches): 3.00 Weight (Pounds): 162 General Appearance: no apparent distress EENT: other - Intubated on ventilator Cardiovascular: tachycardia Respiratory/Chest: decreased breath sounds Abdomen: distended Objective No change Anurag Bridges MD Aug 07, 2020 10:15
--- NOTE | 2020-08-07 10:41 | NUR ---
RESPIRATORY NOTE: Increased PEEP to +12 due to pt desaturation to 30s. RN bedside.
--- NOTE | 2020-08-07 10:45 | NUR ---
NURSE NOTES: Dr Edward informed senior grant writer that he spoke to pt's family and they decided to change pt's code status to DNR after hearing pt's prognosis. Pt is now DNR, as ordered by Dr Edward
--- NOTE | 2020-08-07 11:00 | NUR ---
NURSE NOTES: Pt currently on Versed 14mg/hr and Fentanyl 200mcg/hr. Pt appears more settled and calm, achieved RASS -2. O2Sat currently 86%
--- NOTE | 2020-08-07 11:18 | Infectious Diseases Prog Note ---
Assessment/Plan Assessment/Plan antibiotics : cefepime A 1. covid 19 pneumonia on 100 % Fio2 with 84 % saturation 2. pseudomonas pneumonia 3. respiratory failure 4. leucocytosis improving 5. diabetes mellitus P 1. continue cefepime 2 more days 2. will follow up cultures Subjective ROS Limited/Unobtainable: Yes Allergies: Coded Allergies: No Known Allergies (Unverified , 07/07/20) Objective Last 24 Hour Vital Signs Date Time Temp Pulse Resp B/P (MAP) Pulse Ox O2 Delivery O2 Flow Rate FiO2 08/07/20 10:42 135 24 100 08/07/20 10:00 133 24 187/99 (128) 84 08/07/20 09:30 119 25 177/116 (136) 92 08/07/20 09:00 95 21 152/87 (108) 99 08/07/20 08:30 55 22 132/75 (94) 98 08/07/20 08:00 100 08/07/20 08:00 98.6 55 22 134/88 (103) 98 08/07/20 08:00 22 134/88 Mechanical Ventilator 100 08/07/20 08:00 22 134/88 Mechanical Ventilator 100 08/07/20 08:00 Mechanical Ventilator 08/07/20 07:39 54 22 100 08/07/20 07:30 71 22 103/68 (80) 100 08/07/20 07:15 75 22 87/51 (63) 100 08/07/20 07:00 73 22 95/58 (70) 100 08/07/20 07:00 22 95/58 Mechanical Ventilator 100 08/07/20 07:00 22 95/58 Mechanical Ventilator 100 08/07/20 06:29 22 128/78 Mechanical Ventilator 100 08/07/20 06:27 22 128/78 Mechanical Ventilator 100 08/07/20 06:15 60 22 128/78 (95) 100 08/07/20 06:00 63 22 115/78 (90) 100 08/07/20 06:00 22 101/60 Mechanical Ventilator 100 08/07/20 06:00 22 101/60 Mechanical Ventilator 100 08/07/20 05:45 66 22 110/86 (94) 100 08/07/20 05:30 64 22 122/81 (95) 99 08/07/20 05:15 59 22 111/76 (88) 100 08/07/20 05:00 65 22 107/75 (86) 98 08/07/20 05:00 22 107/75 Mechanical Ventilator 100 08/07/20 05:00 22 107/75 Mechanical Ventilator 100 08/07/20 04:45 66 22 109/76 (87) 98 08/07/20 04:30 61 22 109/80 (90) 97 08/07/20 04:15 66 22 118/75 (89) 97 08/07/20 04:00 Mechanical Ventilator 08/07/20 04:00 54 08/07/20 04:00 100 08/07/20 04:00 22 149/93 Mechanical Ventilator 100 08/07/20 04:00 22 149/93 Mechanical Ventilator 100 08/07/20 04:00 97.9 58 22 149/93 (111) 99 08/07/20 03:45 57 22 137/92 (107) 100 08/07/20 03:30 57 22 147/85 (105) 99 08/07/20 03:15 55 22 144/97 (113) 100 08/07/20 03:11 57 22 100 08/07/20 03:00 62 22 123/74 (90) 100 08/07/20 03:00 22 123/74 Mechanical Ventilator 100 08/07/20 03:00 22 123/74 Mechanical Ventilator 100 08/07/20 02:49 76/48 08/07/20 02:47 65 22 76/48 (57) 99 08/07/20 02:45 65 22 77/48 (58) 99 08/07/20 02:30 67 22 81/50 (60) 100 08/07/20 02:15 66 22 82/52 (62) 99 08/07/20 02:00 67 22 84/52 (63) 99 08/07/20 02:00 22 84/52 Mechanical Ventilator 100 08/07/20 02:00 22 84/52 Mechanical Ventilator 100 08/07/20 01:45 68 22 84/51 (62) 99 08/07/20 01:30 69 22 84/55 (65) 99 08/07/20 01:15 72 22 87/56 (66) 98 08/07/20 01:00 74 22 90/55 (67) 98 08/07/20 01:00 22 90/55 Mechanical Ventilator 100 08/07/20 01:00 22 90/55 Mechanical Ventilator 100 08/07/20 00:45 75 22 92/55 (67) 98 08/07/20 00:30 78 22 93/58 (70) 98 08/07/20 00:15 79 22 99/61 (74) 98 08/07/20 00:00 98.5 80 22 103/65 (78) 98 08/07/20 00:00 82 08/07/20 00:00 Mechanical Ventilator 08/07/20 00:00 22 103/65 Mechanical Ventilator 100 08/07/20 00:00 22 103/65 Mechanical Ventilator 100 08/06/20 23:45 83 22 105/64 (78) 97 08/06/20 23:30 87 22 105/66 (79) 98 08/06/20 23:15 83 22 106/69 (81) 97 08/06/20 23:00 38 113/58 Mechanical Ventilator 100 08/06/20 23:00 38 113/58 Mechanical Ventilator 100 08/06/20 23:00 83 22 103/71 (82) 97 08/06/20 22:45 85 22 112/71 (85) 96 08/06/20 22:31 88 22 100 08/06/20 22:30 84 22 117/75 (89) 96 08/06/20 22:15 88 22 116/76 (89) 96 08/06/20 22:00 90 22 120/77 (91) 95 08/06/20 22:00 36 119/72 Mechanical Ventilator 100 08/06/20 22:00 33 102/71 Mechanical Ventilator 33 08/06/20 21:45 93 22 118/76 (90) 95 08/06/20 21:30 97 22 119/75 (90) 94 08/06/20 21:16 40 196/110 Mechanical Ventilator 100 08/06/20 21:15 120 22 126/80 (95) 88 08/06/20 21:15 40 196/110 Mechanical Ventilator 100 08/06/20 21:09 135 24 151/88 (109) 73 08/06/20 21:00 108 25 193/112 (139) 98 08/06/20 20:45 81 22 105/70 (82) 96 08/06/20 20:30 82 22 97/69 (78) 96 08/06/20 20:15 83 22 97/67 (77) 96 08/06/20 20:00 Mechanical Ventilator 08/06/20 20:00 100 08/06/20 20:00 35 128/75 Mechanical Ventilator 100 08/06/20 20:00 84 08/06/20 20:00 98.2 84 22 97/65 (76) 96 08/06/20 19:45 85 22 94/69 (77) 96 08/06/20 19:30 84 22 104/66 (79) 96 08/06/20 19:15 87 22 97/70 (79) 96 08/06/20 19:15 87 22 100 08/06/20 19:00 22 104/66 Mechanical Ventilator 100 08/06/20 19:00 88 22 104/66 (79) 97 08/06/20 18:00 80 22 107/75 (86) 96 08/06/20 18:00 22 107/75 Mechanical Ventilator 100 08/06/20 17:00 22 112/71 Mechanical Ventilator 100 08/06/20 17:00 83 22 112/71 (85) 96 08/06/20 16:30 87 23 100 08/06/20 16:00 97.2 86 22 107/74 (85) 94 08/06/20 16:00 Mechanical Ventilator 08/06/20 16:00 22 107/74 Mechanical Ventilator 100 08/06/20 16:00 86 08/06/20 16:00 100 08/06/20 15:00 20 99/51 Mechanical Ventilator 100 08/06/20 15:00 94 20 99/51 (67) 100 08/06/20 14:55 84 22 100 08/06/20 14:00 22 106/71 Mechanical Ventilator 100 08/06/20 14:00 90 22 106/71 (83) 91 08/06/20 13:45 91 22 103/69 (80) 91 08/06/20 13:30 94 22 104/67 (79) 92 08/06/20 13:15 100 22 107/69 (82) 90 08/06/20 13:06 87 22 100 08/06/20 13:00 103 22 109/69 (82) 88 08/06/20 13:00 22 109/69 Mechanical Ventilator 100 08/06/20 12:45 96 22 113/71 (85) 90 08/06/20 12:30 110 22 119/74 (89) 85 08/06/20 12:15 89 21 137/72 (93) 76 08/06/20 12:00 Endotracheal Tube 08/06/20 12:00 90 08/06/20 12:00 97.3 96 25 122/77 (92) 82 08/06/20 12:00 25 122/77 Mechanical Ventilator 100 08/06/20 11:45 96 24 122/75 (91) 89 08/06/20 11:30 96 24 121/81 (94) 79 08/06/20 11:25 106 24 100 08/06/20 11:25 100 08/06/20 11:24 23 130/90 Mechanical Ventilator 100 Height (Feet): 5 Height (Inches): 3.00 Weight (Pounds): 162 Laboratory Tests Test 08/07/20 04:40 08/07/20 08:26 White Blood Count 17.6 K/UL (4.8-10.8) H Red Blood Count 2.90 M/UL (4.20-5.40) L Hemoglobin 8.2 G/DL (12.0-16.0) L Hematocrit 25.7 % (37.0-47.0) L Mean Corpuscular Volume 88 FL (80-99) Mean Corpuscular Hemoglobin 28.3 PG (27.0-31.0) Mean Corpuscular Hemoglobin Concent 32.0 G/DL (32.0-36.0) Red Cell Distribution Width 14.5 % (11.6-14.8) Platelet Count 129 K/UL (150-450) L Mean Platelet Volume 7.6 FL (6.5-10.1) Neutrophils (%) (Auto) % (45.0-75.0) Lymphocytes (%) (Auto) % (20.0-45.0) Monocytes (%) (Auto) % (1.0-10.0) Eosinophils (%) (Auto) % (0.0-3.0) Basophils (%) (Auto) % (0.0-2.0) Differential Total Cells Counted 100 Neutrophils % (Manual) 95 % (45-75) H Lymphocytes % (Manual) 4 % (20-45) L Monocytes % (Manual) 1 % (1-10) Eosinophils % (Manual) 0 % (0-3) Basophils % (Manual) 0 % (0-2) Band Neutrophils 0 % (0-8) Platelet Estimate Decreased L Platelet Morphology Normal Hypochromasia 1+ Sodium Level 148 MMOL/L (136-145) H Potassium Level 4.4 MMOL/L (3.5-5.1) Chloride Level 113 MMOL/L (98-107) H Carbon Dioxide Level 32 MMOL/L (21-32) Anion Gap 3 mmol/L (5-15) L Blood Urea Nitrogen 30 mg/dL (7-18) H Creatinine 0.6 MG/DL (0.55-1.30) Estimat Glomerular Filtration Rate > 60 mL/min (>60) Glucose Level 127 MG/DL (74-106) #H Lactic Acid Level 1.40 mmol/L (0.4-2.0) Uric Acid 2.8 MG/DL (2.6-7.2) Calcium Level 8.3 MG/DL (8.5-10.1) L Phosphorus Level 2.9 MG/DL (2.5-4.9) Magnesium Level 2.0 MG/DL (1.8-2.4) Total Bilirubin 0.4 MG/DL (0.2-1.0) Gamma Glutamyl Transpeptidase 150 U/L (5-85) H Aspartate Amino Transf (AST/SGOT) 75 U/L (15-37) H Alanine Aminotransferase (ALT/SGPT) 169 U/L (12-78) H Alkaline Phosphatase 110 U/L (46-116) Lactate Dehydrogenase 939 U/L (81-234) H Troponin I 0.088 ng/mL (0.000-0.056) C-Reactive Protein, Quantitative 1.9 mg/dL (0.00-0.90) H Pro-B-Type Natriuretic Peptide 1459 pg/mL (0-125) H Total Protein 4.6 G/DL (6.4-8.2) L Albumin 1.4 G/DL (3.4-5.0) L Globulin 3.2 g/dL Albumin/Globulin Ratio 0.4 (1.0-2.7) L Arterial Blood pH 7.387 (7.350-7.450) Arterial Blood Partial Pressure CO2 52.7 mmHg (35.0-45.0) H Arterial Blood Partial Pressure O2 71.3 mmHg (75.0-100.0) L Arterial Blood HCO3 31.0 mmol/L (22.0-26.0) H Arterial Blood Oxygen Saturation 92.5 % (95-100) L Arterial Blood Base Excess 5.2 (-2-2) H Timbo Test Positive Current Medications Medications (Trade) Dose Ordered Sig/Marian Route PRN Reason Start Time Stop Time Status Last Admin Dose Admin Acetaminophen (Tylenol) 650 mg Q4H PRN RECTAL Temp >100.5 07/18/20 18:30 08/17/20 18:29 08/01/20 16:50 Benzonatate (Tessalon Perles) 100 mg TIDPRN PRN ORAL For Cough 07/18/20 18:30 08/17/20 18:29 Cefepime HCl 2 gm/ Dextrose 55 ml @ 110 mls/hr Q12HR IVPB 07/22/20 13:00 08/10/20 12:59 08/07/20 09:08 Chlorhexidine Gluconate (Rafaela-Hex 2%) 1 applic DAILY@2000 TOPIC 08/01/20 20:00 10/30/20 19:59 08/06/20 21:17 Dextrose (Dextrose 50%) 25 ml Q30M PRN IV Hypoglycemia 07/07/20 15:45 10/05/20 15:44 Dextrose (Dextrose 50%) 50 ml Q30M PRN IV Hypoglycemia 07/07/20 15:45 10/05/20 15:44 Famotidine (Pepcid I.v.) 20 mg Q12HR IVP 07/20/20 09:00 08/19/20 08:59 08/07/20 09:07 Fentanyl Citrate 250 ml @ 0 mls/hr Q24H PRN IV SEDATION 08/06/20 11:14 08/08/20 11:13 08/07/20 06:29 Insulin Aspart (NovoLOG) Q6HR SUBQ 07/26/20 12:00 10/24/20 11:59 08/06/20 17:31 Insulin Detemir (Levemir) 30 units Q12HR SUBQ 08/01/20 21:00 10/24/20 10:29 08/07/20 09:50 Methylprednisolone Sodium Succinate (Solu-MEDROL) 20 mg EVERY 6 HOURS IVP 07/22/20 12:00 10/19/20 08:59 08/07/20 06:16 Metoprolol Tartrate (Lopressor) 25 mg EVERY 12 HOURS NG 07/26/20 21:00 10/24/20 20:59 08/04/20 20:45 Midazolam HCl 200 ml @ 0 mls/hr Q24H PRN IV Agitation 08/06/20 11:56 08/08/20 11:55 08/07/20 06:27 Norepinephrine Bitartrate 250 ml @ 0 mls/hr Q24H PRN IV For hypotension 08/05/20 08:00 08/08/20 07:47 08/07/20 02:49 Sorbitol (sorbitoL) 45 ml Q12HR PRN ORAL Constipation 07/30/20 09:15 08/29/20 09:14 Lynne Gonzalez MD Aug 07, 2020 11:18
--- NOTE | 2020-08-07 11:31 | Pulmonology Progress Note ---
Subjective ROS Limited/Unobtainable: Yes Interval Events: S/p intubation Constitutional: Denies: fever HEENT: Repors: no symptoms Respiratory: Reports: shortness of breath Gastrointestinal/Abdominal: Reports: no symptoms Psychiatric: Reports: no symptoms Skin: Reports: no symptoms Musculoskeletal: Reports: no symptoms Allergies: Coded Allergies: No Known Allergies (Unverified , 07/07/20) Objective Last 24 Hour Vital Signs Date Time Temp Pulse Resp B/P (MAP) Pulse Ox O2 Delivery O2 Flow Rate FiO2 08/07/20 10:42 135 24 100 08/07/20 10:00 133 24 187/99 (128) 84 08/07/20 09:30 119 25 177/116 (136) 92 08/07/20 09:00 95 21 152/87 (108) 99 08/07/20 08:30 55 22 132/75 (94) 98 08/07/20 08:00 100 08/07/20 08:00 98.6 55 22 134/88 (103) 98 08/07/20 08:00 22 134/88 Mechanical Ventilator 100 08/07/20 08:00 22 134/88 Mechanical Ventilator 100 08/07/20 08:00 Mechanical Ventilator 08/07/20 07:39 54 22 100 08/07/20 07:30 71 22 103/68 (80) 100 08/07/20 07:15 75 22 87/51 (63) 100 08/07/20 07:00 73 22 95/58 (70) 100 08/07/20 07:00 22 95/58 Mechanical Ventilator 100 08/07/20 07:00 22 95/58 Mechanical Ventilator 100 08/07/20 06:29 22 128/78 Mechanical Ventilator 100 08/07/20 06:27 22 128/78 Mechanical Ventilator 100 08/07/20 06:15 60 22 128/78 (95) 100 08/07/20 06:00 63 22 115/78 (90) 100 08/07/20 06:00 22 101/60 Mechanical Ventilator 100 08/07/20 06:00 22 101/60 Mechanical Ventilator 100 08/07/20 05:45 66 22 110/86 (94) 100 08/07/20 05:30 64 22 122/81 (95) 99 08/07/20 05:15 59 22 111/76 (88) 100 08/07/20 05:00 65 22 107/75 (86) 98 08/07/20 05:00 22 107/75 Mechanical Ventilator 100 08/07/20 05:00 22 107/75 Mechanical Ventilator 100 08/07/20 04:45 66 22 109/76 (87) 98 08/07/20 04:30 61 22 109/80 (90) 97 08/07/20 04:15 66 22 118/75 (89) 97 08/07/20 04:00 Mechanical Ventilator 08/07/20 04:00 54 08/07/20 04:00 100 08/07/20 04:00 22 149/93 Mechanical Ventilator 100 08/07/20 04:00 22 149/93 Mechanical Ventilator 100 08/07/20 04:00 97.9 58 22 149/93 (111) 99 08/07/20 03:45 57 22 137/92 (107) 100 08/07/20 03:30 57 22 147/85 (105) 99 08/07/20 03:15 55 22 144/97 (113) 100 08/07/20 03:11 57 22 100 08/07/20 03:00 62 22 123/74 (90) 100 08/07/20 03:00 22 123/74 Mechanical Ventilator 100 08/07/20 03:00 22 123/74 Mechanical Ventilator 100 08/07/20 02:49 76/48 08/07/20 02:47 65 22 76/48 (57) 99 08/07/20 02:45 65 22 77/48 (58) 99 08/07/20 02:30 67 22 81/50 (60) 100 08/07/20 02:15 66 22 82/52 (62) 99 08/07/20 02:00 67 22 84/52 (63) 99 08/07/20 02:00 22 84/52 Mechanical Ventilator 100 08/07/20 02:00 22 84/52 Mechanical Ventilator 100 08/07/20 01:45 68 22 84/51 (62) 99 08/07/20 01:30 69 22 84/55 (65) 99 08/07/20 01:15 72 22 87/56 (66) 98 08/07/20 01:00 74 22 90/55 (67) 98 08/07/20 01:00 22 90/55 Mechanical Ventilator 100 08/07/20 01:00 22 90/55 Mechanical Ventilator 100 08/07/20 00:45 75 22 92/55 (67) 98 08/07/20 00:30 78 22 93/58 (70) 98 08/07/20 00:15 79 22 99/61 (74) 98 08/07/20 00:00 98.5 80 22 103/65 (78) 98 08/07/20 00:00 82 08/07/20 00:00 Mechanical Ventilator 08/07/20 00:00 22 103/65 Mechanical Ventilator 100 08/07/20 00:00 22 103/65 Mechanical Ventilator 100 08/06/20 23:45 83 22 105/64 (78) 97 08/06/20 23:30 87 22 105/66 (79) 98 08/06/20 23:15 83 22 106/69 (81) 97 08/06/20 23:00 38 113/58 Mechanical Ventilator 100 08/06/20 23:00 38 113/58 Mechanical Ventilator 100 08/06/20 23:00 83 22 103/71 (82) 97 08/06/20 22:45 85 22 112/71 (85) 96 08/06/20 22:31 88 22 100 08/06/20 22:30 84 22 117/75 (89) 96 08/06/20 22:15 88 22 116/76 (89) 96 08/06/20 22:00 90 22 120/77 (91) 95 08/06/20 22:00 36 119/72 Mechanical Ventilator 100 08/06/20 22:00 33 102/71 Mechanical Ventilator 33 08/06/20 21:45 93 22 118/76 (90) 95 08/06/20 21:30 97 22 119/75 (90) 94 08/06/20 21:16 40 196/110 Mechanical Ventilator 100 08/06/20 21:15 120 22 126/80 (95) 88 08/06/20 21:15 40 196/110 Mechanical Ventilator 100 08/06/20 21:09 135 24 151/88 (109) 73 08/06/20 21:00 108 25 193/112 (139) 98 08/06/20 20:45 81 22 105/70 (82) 96 08/06/20 20:30 82 22 97/69 (78) 96 08/06/20 20:15 83 22 97/67 (77) 96 08/06/20 20:00 Mechanical Ventilator 08/06/20 20:00 100 08/06/20 20:00 35 128/75 Mechanical Ventilator 100 08/06/20 20:00 84 08/06/20 20:00 98.2 84 22 97/65 (76) 96 08/06/20 19:45 85 22 94/69 (77) 96 08/06/20 19:30 84 22 104/66 (79) 96 08/06/20 19:15 87 22 97/70 (79) 96 08/06/20 19:15 87 22 100 08/06/20 19:00 22 104/66 Mechanical Ventilator 100 08/06/20 19:00 88 22 104/66 (79) 97 08/06/20 18:00 80 22 107/75 (86) 96 08/06/20 18:00 22 107/75 Mechanical Ventilator 100 08/06/20 17:00 22 112/71 Mechanical Ventilator 100 08/06/20 17:00 83 22 112/71 (85) 96 08/06/20 16:30 87 23 100 08/06/20 16:00 97.2 86 22 107/74 (85) 94 08/06/20 16:00 Mechanical Ventilator 08/06/20 16:00 22 107/74 Mechanical Ventilator 100 08/06/20 16:00 86 08/06/20 16:00 100 08/06/20 15:00 20 99/51 Mechanical Ventilator 100 08/06/20 15:00 94 20 99/51 (67) 100 08/06/20 14:55 84 22 100 08/06/20 14:00 22 106/71 Mechanical Ventilator 100 08/06/20 14:00 90 22 106/71 (83) 91 08/06/20 13:45 91 22 103/69 (80) 91 08/06/20 13:30 94 22 104/67 (79) 92 08/06/20 13:15 100 22 107/69 (82) 90 08/06/20 13:06 87 22 100 08/06/20 13:00 103 22 109/69 (82) 88 08/06/20 13:00 22 109/69 Mechanical Ventilator 100 08/06/20 12:45 96 22 113/71 (85) 90 08/06/20 12:30 110 22 119/74 (89) 85 3/7/21 12:15 89 21 137/72 (93) 76 08/06/20 12:00 Endotracheal Tube 08/06/20 12:00 90 08/06/20 12:00 97.3 96 25 122/77 (92) 82 08/06/20 12:00 25 122/77 Mechanical Ventilator 100 08/06/20 11:45 96 24 122/75 (91) 89 08/06/20 11:30 96 24 121/81 (94) 79 Intake and Output 08/06/20 08/07/20 19:00 07:00 Intake Total 1330.995 ml 915.0 ml Output Total 1325 ml 880 ml Balance 5.995 ml 35.0 ml IV Total 615.995 ml 475.0 ml Tube Feeding 715 ml 440 ml Output Urine Total 1025 ml 880 ml Stool Total 300 ml # Bowel Movements 20 General Appearance: no acute distress HEENT: normocephalic Respiratory: decreased breath sounds Cardiovascular: normal peripheral pulses Abdomen: normal bowel sounds Laboratory Tests 08/07/20 04:40: White Blood Count 17.6H, Red Blood Count 2.90L, Hemoglobin 8.2L, Hematocrit 25.7L, Mean Corpuscular Volume 88, Mean Corpuscular Hemoglobin 28.3, Mean Corpuscular Hemoglobin Concent 32.0, Red Cell Distribution Width 14.5, Platelet Count 129L, Mean Platelet Volume 7.6, Neutrophils (%) (Auto) , Lymphocytes (%) (Auto) , Monocytes (%) (Auto) , Eosinophils (%) (Auto) , Basophils (%) (Auto) , Differential Total Cells Counted 100, Neutrophils % (Manual) 95H, Lymphocytes % (Manual) 4L, Monocytes % (Manual) 1, Eosinophils % (Manual) 0, Basophils % (Manual) 0, Band Neutrophils 0, Platelet Estimate DecreasedL, Platelet Morphology Normal, Hypochromasia 1+, Sodium Level 148H, Potassium Level 4.4, Chloride Level 113H, Carbon Dioxide Level 32, Anion Gap 3L, Blood Urea Nitrogen 30H, Creatinine 0.6, Estimat Glomerular Filtration Rate > 60, Glucose Level 127#H, Lactic Acid Level 1.40, Uric Acid 2.8, Calcium Level 8.3L, Phosphorus Level 2.9, Magnesium Level 2.0, Total Bilirubin 0.4, Gamma Glutamyl Transpeptidase 150H, Aspartate Amino Transf (AST/SGOT) 75H, Alanine Aminotransferase (ALT/SGPT) 169H, Alkaline Phosphatase 110, Lactate Dehydrogenase 939H, Troponin I 0.088H, C-Reactive Protein, Quantitative 1.9H, Pro-B-Type Natriuretic Peptide 1459H, Total Protein 4.6L, Albumin 1.4L, Globulin 3.2, Albumin/Globulin Ratio 0.4L 08/07/20 08:26: Arterial Blood pH 7.387, Arterial Blood Partial Pressure CO2 52.7H, Arterial Blood Partial Pressure O2 71.3L, Arterial Blood HCO3 31.0H, Arterial Blood Oxygen Saturation 92.5L, Arterial Blood Base Excess 5.2H, Timbo Test Positive Current Medications Medications (Trade) Dose Ordered Sig/Marian Route PRN Reason Start Time Stop Time Status Last Admin Dose Admin Acetaminophen (Tylenol) 650 mg Q4H PRN RECTAL Temp >100.5 07/18/20 18:30 08/17/20 18:29 08/01/20 16:50 Benzonatate (Tessalon Perles) 100 mg TIDPRN PRN ORAL For Cough 07/18/20 18:30 08/17/20 18:29 Cefepime HCl 2 gm/ Dextrose 55 ml @ 110 mls/hr Q12HR IVPB 07/22/20 13:00 08/10/20 12:59 08/07/20 09:08 Chlorhexidine Gluconate (Rafaela-Hex 2%) 1 applic DAILY@2000 TOPIC 08/01/20 20:00 10/30/20 19:59 08/06/20 21:17 Dextrose (Dextrose 50%) 25 ml Q30M PRN IV Hypoglycemia 07/07/20 15:45 10/05/20 15:44 Dextrose (Dextrose 50%) 50 ml Q30M PRN IV Hypoglycemia 07/07/20 15:45 10/05/20 15:44 Famotidine (Pepcid I.v.) 20 mg Q12HR IVP 07/20/20 09:00 08/19/20 08:59 08/07/20 09:07 Fentanyl Citrate 250 ml @ 0 mls/hr Q24H PRN IV SEDATION 08/06/20 11:14 08/08/20 11:13 08/07/20 06:29 Insulin Aspart (NovoLOG) Q6HR SUBQ 07/26/20 12:00 10/24/20 11:59 08/06/20 17:31 Insulin Detemir (Levemir) 30 units Q12HR SUBQ 08/01/20 21:00 10/24/20 10:29 08/07/20 09:50 Methylprednisolone Sodium Succinate (Solu-MEDROL) 20 mg EVERY 6 HOURS IVP 07/22/20 12:00 10/19/20 08:59 08/07/20 06:16 Metoprolol Tartrate (Lopressor) 25 mg EVERY 12 HOURS NG 07/26/20 21:00 10/24/20 20:59 08/04/20 20:45 Midazolam HCl 200 ml @ 0 mls/hr Q24H PRN IV Agitation 08/06/20 11:56 08/08/20 11:55 08/07/20 06:27 Norepinephrine Bitartrate 250 ml @ 0 mls/hr Q24H PRN IV For hypotension 08/05/20 08:00 08/08/20 07:47 08/07/20 02:49 Sorbitol (sorbitoL) 45 ml Q12HR PRN ORAL Constipation 07/30/20 09:15 08/29/20 09:14 Assessment/Plan Assessment/Plan 1. COVID-19 pneumonia. - COVID-19 PCR positive (07/07) - s/p remdexsivir, azithromycin - CXR (07/13) no significant change - f/u rapid COVID-19 (07/31) negative -> now off isolation 2. Hypoxemic respiratory distress - s/p decadron (07/08-07/17) - now on Solu-Medrol - intubated; on AC mode - FiO2 100 -> 80-> 100%; continue PEEP 7->8 -> 10-> 8 ->12 - episodically desaturates to 70% 3. Hypertension. - Required central line 08/01/20 -on Levophed 4. Diabetes mellitus. -on insulin sliding scale 5. DVT ppx - on Lovenox, full dose empirically; on hold now due to epistaxis - SCD in place 6. Sputum Cx shows pseudomonas and cony - continue cefepime per ID 7. Suspect bacterial infection given leukocytosis - s/p Diflucan - On Cefepime - s/p IV Vanco - s/p IV Bactrim for possible PJP 8. Pulmonary edema -Off lasix gtt Discussed with bedside RN. No further epistaxis and oral bleeding Hold Lovenox Will give FFP Transfuse prn On Levemir DW family, family discussing possible extubation and comfort care The care of this patient was discussed with my supervising physician Time spent for this encounter was approximately 31 minutes Milton Howard Aug 07, 2020 11:31
--- NOTE | 2020-08-07 13:00 | NUR ---
NURSE NOTES: Oral care done. Pt continues to have bloody secretions. Pt is afebrile at this time. 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
--- NOTE | 2020-08-07 13:40 | General Progress Note ---
Subjective ROS Limited/Unobtainable: No Allergies: Coded Allergies: No Known Allergies (Unverified , 07/07/20) Subjective no event over night on 100 % o2 on pressor tolerating TF Objective Last 24 Hour Vital Signs Date Time Temp Pulse Resp B/P (MAP) Pulse Ox O2 Delivery O2 Flow Rate FiO2 08/07/20 13:30 117 22 90/56 (67) 90 08/07/20 13:00 114 20 89/52 (64) 81 08/07/20 12:00 100 08/07/20 12:00 98.6 109 23 83/55 (64) 89 08/07/20 12:00 111 08/07/20 12:00 22 83/55 Mechanical Ventilator 100 08/07/20 12:00 22 83/55 Mechanical Ventilator 100 08/07/20 12:00 Mechanical Ventilator 08/07/20 11:30 119 24 83/51 (62) 80 08/07/20 11:00 18 99/58 Mechanical Ventilator 100 08/07/20 11:00 18 99/58 Mechanical Ventilator 100 08/07/20 11:00 131 18 99/58 (72) 38 08/07/20 10:42 135 24 100 08/07/20 10:30 24 161/95 Mechanical Ventilator 100 08/07/20 10:15 31 182/110 Mechanical Ventilator 100 08/07/20 10:00 133 24 187/99 (128) 84 08/07/20 10:00 29 187/99 Mechanical Ventilator 100 08/07/20 10:00 29 187/99 Mechanical Ventilator 100 08/07/20 09:45 26 165/107 Mechanical Ventilator 100 08/07/20 09:30 119 25 177/116 (136) 92 08/07/20 09:30 24 177/116 Mechanical Ventilator 100 08/07/20 09:15 23 156/103 Mechanical Ventilator 100 08/07/20 09:00 95 21 152/87 (108) 99 08/07/20 09:00 22 152/87 Mechanical Ventilator 100 08/07/20 09:00 22 152/87 Mechanical Ventilator 100 08/07/20 08:30 55 22 132/75 (94) 98 08/07/20 08:00 100 08/07/20 08:00 98.6 55 22 134/88 (103) 98 08/07/20 08:00 22 134/88 Mechanical Ventilator 100 08/07/20 08:00 22 134/88 Mechanical Ventilator 100 08/07/20 08:00 68 08/07/20 08:00 Mechanical Ventilator 08/07/20 07:39 54 22 100 08/07/20 07:30 71 22 103/68 (80) 100 08/07/20 07:15 75 22 87/51 (63) 100 08/07/20 07:00 73 22 95/58 (70) 100 08/07/20 07:00 22 95/58 Mechanical Ventilator 100 08/07/20 07:00 22 95/58 Mechanical Ventilator 100 08/07/20 06:29 22 128/78 Mechanical Ventilator 100 08/07/20 06:27 22 128/78 Mechanical Ventilator 100 08/07/20 06:15 60 22 128/78 (95) 100 08/07/20 06:00 63 22 115/78 (90) 100 08/07/20 06:00 22 101/60 Mechanical Ventilator 100 08/07/20 06:00 22 101/60 Mechanical Ventilator 100 08/07/20 05:45 66 22 110/86 (94) 100 08/07/20 05:30 64 22 122/81 (95) 99 08/07/20 05:15 59 22 111/76 (88) 100 08/07/20 05:00 65 22 107/75 (86) 98 08/07/20 05:00 22 107/75 Mechanical Ventilator 100 08/07/20 05:00 22 107/75 Mechanical Ventilator 100 08/07/20 04:45 66 22 109/76 (87) 98 08/07/20 04:30 61 22 109/80 (90) 97 08/07/20 04:15 66 22 118/75 (89) 97 08/07/20 04:00 Mechanical Ventilator 08/07/20 04:00 54 08/07/20 04:00 100 08/07/20 04:00 22 149/93 Mechanical Ventilator 100 08/07/20 04:00 22 149/93 Mechanical Ventilator 100 08/07/20 04:00 97.9 58 22 149/93 (111) 99 08/07/20 03:45 57 22 137/92 (107) 100 08/07/20 03:30 57 22 147/85 (105) 99 08/07/20 03:15 55 22 144/97 (113) 100 08/07/20 03:11 57 22 100 08/07/20 03:00 62 22 123/74 (90) 100 08/07/20 03:00 22 123/74 Mechanical Ventilator 100 08/07/20 03:00 22 123/74 Mechanical Ventilator 100 08/07/20 02:49 76/48 08/07/20 02:47 65 22 76/48 (57) 99 08/07/20 02:45 65 22 77/48 (58) 99 08/07/20 02:30 67 22 81/50 (60) 100 08/07/20 02:15 66 22 82/52 (62) 99 08/07/20 02:00 67 22 84/52 (63) 99 08/07/20 02:00 22 84/52 Mechanical Ventilator 100 08/07/20 02:00 22 84/52 Mechanical Ventilator 100 08/07/20 01:45 68 22 84/51 (62) 99 08/07/20 01:30 69 22 84/55 (65) 99 08/07/20 01:15 72 22 87/56 (66) 98 08/07/20 01:00 74 22 90/55 (67) 98 08/07/20 01:00 22 90/55 Mechanical Ventilator 100 08/07/20 01:00 22 90/55 Mechanical Ventilator 100 08/07/20 00:45 75 22 92/55 (67) 98 08/07/20 00:30 78 22 93/58 (70) 98 08/07/20 00:15 79 22 99/61 (74) 98 08/07/20 00:00 98.5 80 22 103/65 (78) 98 08/07/20 00:00 82 08/07/20 00:00 Mechanical Ventilator 08/07/20 00:00 22 103/65 Mechanical Ventilator 100 08/07/20 00:00 22 103/65 Mechanical Ventilator 100 08/06/20 23:45 83 22 105/64 (78) 97 08/06/20 23:30 87 22 105/66 (79) 98 08/06/20 23:15 83 22 106/69 (81) 97 08/06/20 23:00 38 113/58 Mechanical Ventilator 100 08/06/20 23:00 38 113/58 Mechanical Ventilator 100 08/06/20 23:00 83 22 103/71 (82) 97 08/06/20 22:45 85 22 112/71 (85) 96 08/06/20 22:31 88 22 100 08/06/20 22:30 84 22 117/75 (89) 96 08/06/20 22:15 88 22 116/76 (89) 96 08/06/20 22:00 90 22 120/77 (91) 95 08/06/20 22:00 36 119/72 Mechanical Ventilator 100 08/06/20 22:00 33 102/71 Mechanical Ventilator 33 08/06/20 21:45 93 22 118/76 (90) 95 08/06/20 21:30 97 22 119/75 (90) 94 08/06/20 21:16 40 196/110 Mechanical Ventilator 100 08/06/20 21:15 120 22 126/80 (95) 88 08/06/20 21:15 40 196/110 Mechanical Ventilator 100 08/06/20 21:09 135 24 151/88 (109) 73 08/06/20 21:00 108 25 193/112 (139) 98 08/06/20 20:45 81 22 105/70 (82) 96 08/06/20 20:30 82 22 97/69 (78) 96 08/06/20 20:15 83 22 97/67 (77) 96 08/06/20 20:00 Mechanical Ventilator 08/06/20 20:00 100 08/06/20 20:00 35 128/75 Mechanical Ventilator 100 08/06/20 20:00 84 08/06/20 20:00 98.2 84 22 97/65 (76) 96 08/06/20 19:45 85 22 94/69 (77) 96 08/06/20 19:30 84 22 104/66 (79) 96 08/06/20 19:15 87 22 97/70 (79) 96 08/06/20 19:15 87 22 100 08/06/20 19:00 22 104/66 Mechanical Ventilator 100 08/06/20 19:00 88 22 104/66 (79) 97 08/06/20 18:00 80 22 107/75 (86) 96 08/06/20 18:00 22 107/75 Mechanical Ventilator 100 08/06/20 17:00 22 112/71 Mechanical Ventilator 100 08/06/20 17:00 83 22 112/71 (85) 96 08/06/20 16:30 87 23 100 3/7/21 16:00 97.2 86 22 107/74 (85) 94 08/06/20 16:00 Mechanical Ventilator 08/06/20 16:00 22 107/74 Mechanical Ventilator 100 08/06/20 16:00 86 08/06/20 16:00 100 08/06/20 15:00 20 99/51 Mechanical Ventilator 100 08/06/20 15:00 94 20 99/51 (67) 100 08/06/20 14:55 84 22 100 08/06/20 14:00 22 106/71 Mechanical Ventilator 100 08/06/20 14:00 90 22 106/71 (83) 91 08/06/20 13:45 91 22 103/69 (80) 91 Intake and Output 08/06/20 08/07/20 19:00 07:00 Intake Total 1330.995 ml 915.0 ml Output Total 1325 ml 880 ml Balance 5.995 ml 35.0 ml IV Total 615.995 ml 475.0 ml Tube Feeding 715 ml 440 ml Output Urine Total 1025 ml 880 ml Stool Total 300 ml # Bowel Movements 20 Laboratory Tests 08/07/20 04:40: White Blood Count 17.6H, Red Blood Count 2.90L, Hemoglobin 8.2L, Hematocrit 25.7L, Mean Corpuscular Volume 88, Mean Corpuscular Hemoglobin 28.3, Mean Corpus cular Hemoglobin Concent 32.0, Red Cell Distribution Width 14.5, Platelet Count 129L, Mean Platelet Volume 7.6, Neutrophils (%) (Auto) , Lymphocytes (%) (Auto) , Monocytes (%) (Auto) , Eosinophils (%) (Auto) , Basophils (%) (Auto) , Di fferential Total Cells Counted 100, Neutrophils % (Manual) 95H, Lymphocytes % (Manual) 4L, Monocytes % (Manual) 1, Eosinophils % (Manual) 0, Basophils % (Manual) 0, Band Neutrophils 0, Platelet Estimate DecreasedL, Platelet Morphology Normal, Hypochromasia 1+, Sodium Level 148H, Potassium Level 4.4, Chloride Level 113H, Carbon Dioxide Level 32, Anion Gap 3L, Blood Urea Nitrogen 30H, Creatinine 0.6, Estimat Glomerular Filtration Rate > 60, Glucose Level 127#H, Lactic Acid Level 1.40, Uric Acid 2.8, Calcium Level 8.3L, Phosphorus Level 2.9, Magnesium Level 2.0, Total Bilirubin 0.4, Gamma Glutamyl Transpeptidase 150H, Aspartate Amino Transf (AST/SGOT) 75H, Alanine Aminotransferase (ALT/SGPT) 169H, Alkaline Phosphatase 110, Lactate Dehydrogenase 939H, Troponin I 0.088H, C-Reactive Protein, Quantitative 1.9H, Pro-B-Type Natriuretic Peptide 1459H, Total Protein 4.6L, Albumin 1.4L, Globulin 3.2, Albumin/Globulin Ratio 0.4L 08/07/20 08:26: Arterial Blood pH 7.387, Arterial Blood Partial Pressure CO2 52.7H, Arterial Blood Partial Pressure O2 71.3L, Arterial Blood HCO3 31.0H, Arterial Blood Oxygen Saturation 92.5L, Arterial Blood Base Excess 5.2H, Timbo Test Positive Height (Feet): 5 Height (Inches): 3.00 Weight (Pounds): 162 General Appearance: no apparent distress EENT: normal ENT inspection Neck: supple Cardiovascular: normal rate Respiratory/Chest: decreased breath sounds Abdomen: hypoactive bowel sounds Extremities: non-tender Assessment/Plan Problem List: (1) Dysphagia ICD Codes: R13.10 - Dysphagia, unspecified SNOMED: 76335126, 767624261 (2) COVID-19 virus infection ICD Codes: U07.1 - COVID-19 SNOMED: 699140117 (3) HTN (hypertension) ICD Codes: I10 - Essential (primary) hypertension SNOMED: 78749632 (4) DMII (diabetes mellitus, type 2) ICD Codes: E11.9 - Type 2 diabetes mellitus without complications SNOMED: 05327546 Qualifiers: Qualified Codes: E11.69 - Type 2 diabetes mellitus with other specified complication Status: not improved Assessment/Plan: coverage note for dr Malcolm intubated DM control fu pulm and cardiology recs NGTF on pressor now rectal tube still on 100 %o2 DNR Steffen De Luna MD Aug 07, 2020 13:40
--- NOTE | 2020-08-07 14:30 | NUR ---
NURSE NOTES:WOUND CARE FOLLOW-UP NOTES:Pt deconditioned. Generalized edema noted. MASD perineum and medial aspects of both upper thighs. Affected areas area erythematous with multiple intact and opened serous blisters. Abdominal panus is erythematous, moist but intact. Sacral DTPI noted(L)10.5cm x (W)12cm. Base of Pressure Injury is maroon with small partial opening at Sacrococcygeal area(L)1.8cm x (W)0.4cm.Periwound is erythematous and macerated. R heel is boggy with non-blanchable erythema(L)8cm x (W)6.5cm. L Heel is boggy but easily blanchable. Tx.Plan: Apply Moisture Barrier Paste to Sacrum. Cover with Optifoam drsg. Change every 3 days and prn. Apply Moisture Barrier Paste to abdominal folds, perineum and medial aspects of both upper thgihs with each incontinence care. Apply Cavilon Skin BArrier to Both heels. Cover each Heel with Optifoam drsg. Change every 7 days and prn. Reposition at least every 2 hors or as tolerated. Off-load heels with Pillow. APM/CON Mattress overlay.
--- NOTE | 2020-08-07 15:00 | NUR ---
NURSE NOTES: Pt remains sedated, RASS -2, on Fentanyl 200mcg/hr and Versed 14mg/hr. No distress noted at this time.
--- NOTE | 2020-08-07 15:18 | Cardiology Progress Note ---
Assessment/Plan Status: unchanged Assessment/Plan 1. COVID-19 viral PNA s/p remdesivir and dexamethasone WBCs elevated 2. Respiratory failure 2/2 acute PNA Intubated 07/25/20 3. HFpEF acute on chronic diastolic HF with preserved EF EF 65%, per repeat echo post intubation Lasix for diuresis as needed 4. 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 Sinus tachycardia 2/2 fever and infection 7. Hypotension 2/2 shock, Levophed as needed Hypotensive with worsening infiltrative disease, pressors off and on, still vent dependent. Levophed per critical care team, wean off as tolerated. Repeat echo shows no change. Lasix as needed per pulmonlogy recs. Subjective ROS Limited/Unobtainable: Yes Subjective Hypotensive requiring pressors. CXR shows worsening infiltrates. Intubated and on vent, in sinus rhythm. Seen in ICU Objective Last 24 Hour Vital Signs Date Time Temp Pulse Resp B/P (MAP) Pulse Ox O2 Delivery O2 Flow Rate FiO2 08/07/20 13:30 117 22 90/56 (67) 90 08/07/20 13:00 114 20 89/52 (64) 81 08/07/20 12:00 100 08/07/20 12:00 98.6 109 23 83/55 (64) 89 08/07/20 12:00 111 08/07/20 12:00 22 83/55 Mechanical Ventilator 100 08/07/20 12:00 22 83/55 Mechanical Ventilator 100 08/07/20 12:00 Mechanical Ventilator 08/07/20 11:30 119 24 83/51 (62) 80 08/07/20 11:00 18 99/58 Mechanical Ventilator 100 08/07/20 11:00 18 99/58 Mechanical Ventilator 100 08/07/20 11:00 131 18 99/58 (72) 38 08/07/20 10:42 135 24 100 08/07/20 10:30 24 161/95 Mechanical Ventilator 100 08/07/20 10:15 31 182/110 Mechanical Ventilator 100 08/07/20 10:00 133 24 187/99 (128) 84 08/07/20 10:00 29 187/99 Mechanical Ventilator 100 08/07/20 10:00 29 187/99 Mechanical Ventilator 100 08/07/20 09:45 26 165/107 Mechanical Ventilator 100 08/07/20 09:30 119 25 177/116 (136) 92 08/07/20 09:30 24 177/116 Mechanical Ventilator 100 08/07/20 09:15 23 156/103 Mechanical Ventilator 100 08/07/20 09:00 95 21 152/87 (108) 99 08/07/20 09:00 22 152/87 Mechanical Ventilator 100 08/07/20 09:00 22 152/87 Mechanical Ventilator 100 08/07/20 08:30 55 22 132/75 (94) 98 08/07/20 08:00 100 08/07/20 08:00 98.6 55 22 134/88 (103) 98 08/07/20 08:00 22 134/88 Mechanical Ventilator 100 08/07/20 08:00 22 134/88 Mechanical Ventilator 100 08/07/20 08:00 68 08/07/20 08:00 Mechanical Ventilator 08/07/20 07:39 54 22 100 08/07/20 07:30 71 22 103/68 (80) 100 08/07/20 07:15 75 22 87/51 (63) 100 08/07/20 07:00 73 22 95/58 (70) 100 08/07/20 07:00 22 95/58 Mechanical Ventilator 100 08/07/20 07:00 22 95/58 Mechanical Ventilator 100 08/07/20 06:29 22 128/78 Mechanical Ventilator 100 08/07/20 06:27 22 128/78 Mechanical Ventilator 100 08/07/20 06:15 60 22 128/78 (95) 100 08/07/20 06:00 63 22 115/78 (90) 100 08/07/20 06:00 22 101/60 Mechanical Ventilator 100 08/07/20 06:00 22 101/60 Mechanical Ventilator 100 08/07/20 05:45 66 22 110/86 (94) 100 08/07/20 05:30 64 22 122/81 (95) 99 08/07/20 05:15 59 22 111/76 (88) 100 08/07/20 05:00 65 22 107/75 (86) 98 08/07/20 05:00 22 107/75 Mechanical Ventilator 100 08/07/20 05:00 22 107/75 Mechanical Ventilator 100 08/07/20 04:45 66 22 109/76 (87) 98 08/07/20 04:30 61 22 109/80 (90) 97 08/07/20 04:15 66 22 118/75 (89) 97 08/07/20 04:00 Mechanical Ventilator 08/07/20 04:00 54 08/07/20 04:00 100 08/07/20 04:00 22 149/93 Mechanical Ventilator 100 08/07/20 04:00 22 149/93 Mechanical Ventilator 100 08/07/20 04:00 97.9 58 22 149/93 (111) 99 08/07/20 03:45 57 22 137/92 (107) 100 08/07/20 03:30 57 22 147/85 (105) 99 08/07/20 03:15 55 22 144/97 (113) 100 08/07/20 03:11 57 22 100 08/07/20 03:00 62 22 123/74 (90) 100 08/07/20 03:00 22 123/74 Mechanical Ventilator 100 08/07/20 03:00 22 123/74 Mechanical Ventilator 100 08/07/20 02:49 76/48 08/07/20 02:47 65 22 76/48 (57) 99 08/07/20 02:45 65 22 77/48 (58) 99 08/07/20 02:30 67 22 81/50 (60) 100 08/07/20 02:15 66 22 82/52 (62) 99 08/07/20 02:00 67 22 84/52 (63) 99 08/07/20 02:00 22 84/52 Mechanical Ventilator 100 08/07/20 02:00 22 84/52 Mechanical Ventilator 100 08/07/20 01:45 68 22 84/51 (62) 99 08/07/20 01:30 69 22 84/55 (65) 99 08/07/20 01:15 72 22 87/56 (66) 98 08/07/20 01:00 74 22 90/55 (67) 98 08/07/20 01:00 22 90/55 Mechanical Ventilator 100 08/07/20 01:00 22 90/55 Mechanical Ventilator 100 08/07/20 00:45 75 22 92/55 (67) 98 08/07/20 00:30 78 22 93/58 (70) 98 08/07/20 00:15 79 22 99/61 (74) 98 08/07/20 00:00 98.5 80 22 103/65 (78) 98 08/07/20 00:00 82 08/07/20 00:00 Mechanical Ventilator 08/07/20 00:00 22 103/65 Mechanical Ventilator 100 08/07/20 00:00 22 103/65 Mechanical Ventilator 100 08/06/20 23:45 83 22 105/64 (78) 97 08/06/20 23:30 87 22 105/66 (79) 98 08/06/20 23:15 83 22 106/69 (81) 97 08/06/20 23:00 38 113/58 Mechanical Ventilator 100 08/06/20 23:00 38 113/58 Mechanical Ventilator 100 08/06/20 23:00 83 22 103/71 (82) 97 08/06/20 22:45 85 22 112/71 (85) 96 08/06/20 22:31 88 22 100 08/06/20 22:30 84 22 117/75 (89) 96 08/06/20 22:15 88 22 116/76 (89) 96 08/06/20 22:00 90 22 120/77 (91) 95 08/06/20 22:00 36 119/72 Mechanical Ventilator 100 08/06/20 22:00 33 102/71 Mechanical Ventilator 33 08/06/20 21:45 93 22 118/76 (90) 95 08/06/20 21:30 97 22 119/75 (90) 94 08/06/20 21:16 40 196/110 Mechanical Ventilator 100 08/06/20 21:15 120 22 126/80 (95) 88 08/06/20 21:15 40 196/110 Mechanical Ventilator 100 08/06/20 21:09 135 24 151/88 (109) 73 08/06/20 21:00 108 25 193/112 (139) 98 08/06/20 20:45 81 22 105/70 (82) 96 08/06/20 20:30 82 22 97/69 (78) 96 08/06/20 20:15 83 22 97/67 (77) 96 08/06/20 20:00 Mechanical Ventilator 08/06/20 20:00 100 08/06/20 20:00 35 128/75 Mechanical Ventilator 100 08/06/20 20:00 84 08/06/20 20:00 98.2 84 22 97/65 (76) 96 08/06/20 19:45 85 22 94/69 (77) 96 08/06/20 19:30 84 22 104/66 (79) 96 08/06/20 19:15 87 22 97/70 (79) 96 08/06/20 19:15 87 22 100 08/06/20 19:00 22 104/66 Mechanical Ventilator 100 08/06/20 19:00 88 22 104/66 (79) 97 08/06/20 18:00 80 22 107/75 (86) 96 08/06/20 18:00 22 107/75 Mechanical Ventilator 100 08/06/20 17:00 22 112/71 Mechanical Ventilator 100 08/06/20 17:00 83 22 112/71 (85) 96 08/06/20 16:30 87 23 100 08/06/20 16:00 97.2 86 22 107/74 (85) 94 08/06/20 16:00 Mechanical Ventilator 08/06/20 16:00 22 107/74 Mechanical Ventilator 100 08/06/20 16:00 86 08/06/20 16:00 100 Intake and Output 08/06/20 08/07/20 19:00 07:00 Intake Total 1330.995 ml 915.0 ml Output Total 1325 ml 880 ml Balance 5.995 ml 35.0 ml IV Total 615.995 ml 475.0 ml Tube Feeding 715 ml 440 ml Output Urine Total 1025 ml 880 ml Stool Total 300 ml # Bowel Movements 20 Laboratory Tests Test 08/07/20 04:40 08/07/20 08:26 White Blood Count 17.6 K/UL (4.8-10.8) H Red Blood Count 2.90 M/UL (4.20-5.40) L Hemoglobin 8.2 G/DL (12.0-16.0) L Hematocrit 25.7 % (37.0-47.0) L Mean Corpuscular Volume 88 FL (80-99) Mean Corpuscular Hemoglobin 28.3 PG (27.0-31.0) Mean Corpuscular Hemoglobin Concent 32.0 G/DL (32.0-36.0) Red Cell Distribution Width 14.5 % (11.6-14.8) Platelet Count 129 K/UL (150-450) L Mean Platelet Volume 7.6 FL (6.5-10.1) Neutrophils (%) (Auto) % (45.0-75.0) Lymphocytes (%) (Auto) % (20.0-45.0) Monocytes (%) (Auto) % (1.0-10.0) Eosinophils (%) (Auto) % (0.0-3.0) Basophils (%) (Auto) % (0.0-2.0) Differential Total Cells Counted 100 Neutrophils % (Manual) 95 % (45-75) H Lymphocytes % (Manual) 4 % (20-45) L Monocytes % (Manual) 1 % (1-10) Eosinophils % (Manual) 0 % (0-3) Basophils % (Manual) 0 % (0-2) Band Neutrophils 0 % (0-8) Platelet Estimate Decreased L Platelet Morphology Normal Hypochromasia 1+ Sodium Level 148 MMOL/L (136-145) H Potassium Level 4.4 MMOL/L (3.5-5.1) Chloride Level 113 MMOL/L (98-107) H Carbon Dioxide Level 32 MMOL/L (21-32) Anion Gap 3 mmol/L (5-15) L Blood Urea Nitrogen 30 mg/dL (7-18) H Creatinine 0.6 MG/DL (0.55-1.30) Estimat Glomerular Filtration Rate > 60 mL/min (>60) Glucose Level 127 MG/DL (74-106) #H Lactic Acid Level 1.40 mmol/L (0.4-2.0) Uric Acid 2.8 MG/DL (2.6-7.2) Calcium Level 8.3 MG/DL (8.5-10.1) L Phosphorus Level 2.9 MG/DL (2.5-4.9) Magnesium Level 2.0 MG/DL (1.8-2.4) Total Bilirubin 0.4 MG/DL (0.2-1.0) Gamma Glutamyl Transpeptidase 150 U/L (5-85) H Aspartate Amino Transf (AST/SGOT) 75 U/L (15-37) H Alanine Aminotransferase (ALT/SGPT) 169 U/L (12-78) H Alkaline Phosphatase 110 U/L (46-116) Lactate Dehydrogenase 939 U/L (81-234) H Troponin I 0.088 ng/mL (0.000-0.056) C-Reactive Protein, Quantitative 1.9 mg/dL (0.00-0.90) H Pro-B-Type Natriuretic Peptide 1459 pg/mL (0-125) H Total Protein 4.6 G/DL (6.4-8.2) L Albumin 1.4 G/DL (3.4-5.0) L Globulin 3.2 g/dL Albumin/Globulin Ratio 0.4 (1.0-2.7) L Arterial Blood pH 7.387 (7.350-7.450) Arterial Blood Partial Pressure CO2 52.7 mmHg (35.0-45.0) H Arterial Blood Partial Pressure O2 71.3 mmHg (75.0-100.0) L Arterial Blood HCO3 31.0 mmol/L (22.0-26.0) H Arterial Blood Oxygen Saturation 92.5 % (95-100) L Arterial Blood Base Excess 5.2 (-2-2) H Timbo Test Positive Blanca Lobato PA-C Aug 07, 2020 15:18
--- NOTE | 2020-08-07 16:15 | NUR ---
NURSE NOTES: [facility] supply called to order pt a new P200 mattress as the one pt has is not functioning properly.
--- NOTE | 2020-08-07 17:00 | NUR ---
NURSE NOTES: Pt fully cleaned and linens changed. Oral care done. Lips moisturized to prevent further cracking and bleeding
[2020-08-07] MEDS ORDERED: Tubing IV Secondary IV ONE (17:03)
[2020-08-07] MEDS ORDERED: NS 275ml ONE (17:03)
--- NOTE | 2020-08-07 17:45 | NUR ---
NURSE NOTES: BS 151. 2 units Novolog insulin given, per sliding scale.
--- NOTE | 2020-08-07 17:53 | NUR ---
RESPIRATORY NOTE: Decreased PEEP to +10. RN aware. SPO2 99%. Will continue to closely monitor.
--- NOTE | 2020-08-07 19:17 | NUR ---
NURSE HAND-OFF REPORT: Latest Vital Signs: Temperature 98.6 , Pulse 83 , B/P 110 /80 , Respiratory Rate 22 , O2 SAT 94 , Mechanical Ventilator, FiO2 100% . Vital Sign Comment: EKG Rhythm: Sinus Rhythm Rhythm change?: N MD Notified?: MD Response: Latest Plaza Fall Score: 50 Fall Risk: High Risk Safety Measures: Call light Within Reach, Bed Alarm Zone 3, Side Rails Side Rails x2, Bed position Low and Locked. Fall Precautions: Yellow Socks Yellow Gown Door Sign Patient Fall Education Report given to LIANA Echeverria.
--- NOTE | 2020-08-07 19:17 | NUR ---
Received report from LIANA Malik and assumed care of patient.
[2020-08-07] MEDS: Dyna-Hex 2% Top Sol 2oz TOPIC SCH (19:55)
--- NOTE | 2020-08-07 20:00 | NUR ---
Assessment completed. Pt labile in her saturations and her BP. Continues to have bloody oral secretions. Wounds to mouth, moisturizer placed to prevent further breakdown. Patient has significant dependent edema to B hands/arms. RASS -2 at this time. Patient appears to be in no acute distress and resting comfortably. Underpad clean and dry. Rectal tube in place, feeding through OGT with minimal residuals. Scleredema present to B eyes. Skin is fragile and care taken with repositioning as well as oral care. Will continue to monitor the patient. Called to let him know he can come to the hospital this evening to see patient if he wishes. Pt is DNR since Day shift and due to instability on and off, recommended visit. States he will be here this evening.
--- NOTE | 2020-08-07 20:45 | NUR ---
Pt became very tachypneic into the 40's and tachycardic into the 140's while subsequently dropping O2 sat into low 80's. Appeared to be opening and closing mouth and bobbing head with breaths that appeared agonal in nature. Patient suctioned and sedation increased. This resolved the agonal breathing and other symptoms at this time. Will continue to monitor the patient closely.
--- NOTE | 2020-08-07 21:30 | NUR ---
to bedside with patient.
--- NOTE | 2020-08-07 22:30 | NUR ---
Pt repositioned and oral care provided. Continues to have bloody secretions. VSS at this time, pt appears in no acute distress. Will continue to monitor.
[2020-08-08] VITALS (51 sets, daily range): BP systolic 81–157; BP diastolic 48–91
--- NOTE | 2020-08-08 00:30 | NUR ---
Midnight assessment complete, see charting for details. Pt BG checked and covered per orders with novolog insulin. Pt was repositioned and oral care provided. 0030: Pt became tachycardic into the 150's while simultaneously dropping saturation into the 30's. Respiratory came to bedside to place patient on PEEP of 12 from 10 to assist in oxygenation/ventilation and per Dr. Edward orders (PEEP 10 to MAX 12), patient is a DNR per family discussion on 08/07/20. 0100: Pt increased O2 saturation into the 90's post increase in PEEP. Lung sounds are diminished throughout. Heart tones are normal but tachycardic. BP is stable off of Levophed. Pt is afebrile with axillary temp of 98.4. Will continue to monitor patient closely.
[2020-08-08] MEDS: Versed 100mg/NS 200ml 200 ML IV PRN ×3 (00:35→10:00)
[2020-08-08] MEDS: Solu-MEDROL 40mg Inj IVP SCH ×5 (01:19→23:22)
--- NOTE | 2020-08-08 02:30 | NUR ---
Pt remains on PEEP of 12, O2 sat much improved. VSS at this time, patient in no acute distress but remains guarded. Oral care provided, continues to have bloody secretions. Moisture barrier ointment applied to upper and lower lips to prevent further breakdown/cracking. Repositioned. Will continue to monitor.
[2020-08-08] MEDS: fentaNYL 2500mcg/NS 250ml 250 ML IV PRN ×2 (02:58→09:59)
--- NOTE | 2020-08-08 04:30 | NUR ---
Pt repositioned and oral care provided. Suction catheter placed in back of throat as gurgling was heard and bloody secretions were suctioned out of throat. Patient continues to have only scant clear secretions endotracheal at this time. Oral care provided, moisture barrier ointment applied to upper and lower lips. Patients VSS at this time and appears in no acute distress. Will continue to monitor the patient.
[2020-08-08 05:07] LABS: HEMATOCRIT 23.3 % (37.0-47.0); HEMOGLOBIN 7.3 G/DL (12.0-16.0); MEAN CORPUSCULAR VOLUME 90 FL (80-99); PLATELET COUNT 108 K/UL (150-450); RED BLOOD COUNT 2.58 M/UL (4.20-5.40); RED CELL DISTRIBUTION WIDTH 15.3 % (11.6-14.8)
[2020-08-08 05:31] LABS: ALANINE AMINOTRANSFERASE 163 U/L (12-78); ALBUMIN 1.4 G/DL (3.4-5.0); ALBUMIN/GLOBULIN RATIO 0.5 (1.0-2.7); ALKALINE PHOSPHATASE 113 U/L (46-116); ANION GAP 5 mmol/L (5-15); ASPARTATE AMINO TRANSFERASE 79 U/L (15-37); BILIRUBIN,TOTAL 0.2 MG/DL (0.2-1.0); BLOOD UREA NITROGEN 35 mg/dL (7-18); CALCIUM 8.1 MG/DL (8.5-10.1); CARBON DIOXIDE 29 MMOL/L (21-32); CHLORIDE 113 MMOL/L (98-107); CREATININE 0.9 MG/DL (0.55-1.30); PHOSPHORUS 2.6 MG/DL (2.5-4.9); POTASSIUM 4.6 MMOL/L (3.5-5.1); SODIUM 147 MMOL/L (136-145)
[2020-08-08] MEDS: NovoLOG Insulin Flexpen SUBQ SCH ×5 (06:00→23:23)
--- NOTE | 2020-08-08 06:36 | NUR ---
Oral care provided and ointment applied to lips. Bloody secretions continue. Patient VS are stable at this time. Levophed placed on hold to determine if patient will tolerate sustaining her own pressure. Will monitor BP closely. Pt in no acute distress at this time. BG 211, covered with novolog insulin per MD orders.
--- NOTE | 2020-08-08 06:55 | NUR ---
[id number] Pt began to drop O2 sat and have irregular heart rhythm which appeared to be frequent PAC's and tachycardia. Despite max vent settings and max support, patient continued to drop O2 sat and is currently sitting in the 30's. Pt has agonal breathing on vent, suctioned patient with scant clear secretions, repositioned to attempt to improve O2 saturation as patient was positioned on her side, so placed supine in semi hanson position. O2 sat remained low and patient remained tachycardic. During this time, pt also became hypertensive into 150's systolic. Sedation increased to max settings Versed @20mg/hr and Fentanyl @ 300mcg/hour without improvement. Report given to LIANA Malik who assumed care of patient. Report handed off at bedside and patient continues to be in distress upon nurse hand-off. Patient on max support.
--- NOTE | 2020-08-08 07:22 | NUR ---
NURSE NOTES: Received report from LIANA Echeverria. Patient is sedated, RASS -2. Pt observed agonal breathing with O2sat of 38%. ETT 7.5/24cm at lip line with vent setting ac 22, tv 450, fio2 100%, PEEP 12. OGT intact; running tube feeds- Glucerna 1.2 @ 55mL/hr. Right femoral TLC intact and running Versed @ 20mg/hr and Fentanyl 300mcg/hr. Pt has a right nare packing d/t epistaxis. Bloody secretions noted from mouth and nose. SCDs on. Bed locked and in lowest position, with call light within reach. Will continue plan of care.
[2020-08-08] MEDS: Cefepime HCl 2 GM in D5W 55 ML IVPB SCH ×2 (08:32→20:39)
--- NOTE | 2020-08-08 08:43 | NUR ---
NURSE NOTES: Dr Bridges on the unit making his rounds. Updated him on pt's current condition.
--- NOTE | 2020-08-08 08:55 | Nephrology Progress Note ---
Assessment/Plan Problem List: (1) Hyponatremia (2) Hypoxia (3) Pneumonitis (4) Acute respiratory failure due to COVID-19 (5) DMII (diabetes mellitus, type 2) (6) HTN (hypertension) Assessment Hyponatremia, improved with saline infusion COVID-19 infection Pneumonia, acute respiratory failure, hypoxia Diabetes mellitus Hypertension Plan August 08: Labs reviewed. Renal parameters stable. Discussed with LIANA Malik. Patient remains on 100% FiO2. Status was changed to DNR. Prognosis dismal. Continue current support. August 07: Labs reviewed. Renal parameters stable. Discussed with LIANA Malik. Pulmonary status remains precarious. On low-dose pressors now. Continue per consultants. Continue to monitor renal parameters and electrolytes. August 06: Labs reviewed. Renal parameters stable. Discussed with RN. Pulmonary status deteriorated. Blood pressure borderline. On FiO2 100%. Continue per pulmonary. May need pressors for BP support. Defer to wool mixer. August 05: Labs reviewed. Renal parameters stable. Remains intubated on ventilator and full code. Continue per consultants. August 04: Labs reviewed. Renal parameters stable. Medication list reviewed. Continue per consultants. August 03: Labs reviewed. Discussed with RN. Patient n.p.o. at this time. Will start IV until feeding resumes. Continue to monitor electrolytes and renal parameters. Medication list reviewed. Continue per consultants. August 02: Labs reviewed. Serum sodium drifting down. Serum potassium remains higher than normal though improved since yesterday. Kayexalate via NG tube given and 250 cc 3% saline IV given continue to monitor renal parameters and electrolytes. August 01: Today's labs reviewed. Discussed with RN. Kayexalate for high potassium given. Hemoglobin lower. Defer transfusion to washer meat. Continue to monitor electrolytes and renal parameters. July 31: No CHEM panel drawn today. Remains full code. Intubated on ventilator. FiO2 85% now. Will check lab tomorrow. Continue to monitor renal parameters. July 30: Labs reviewed. Renal parameters stable. Continue per consultants. Intubated on ventilator with FiO2 of 100%. Full code. Not much to add from renal standpoint of view at this time. July 29 labs reviewed. Serum potassium elevated. Potassium supplement was put on hold on 1 dose of Kayexalate given. Levemir dose increased. Continue to monitor renal parameters. Patient remains on 100% FiO2 on ventilator. July 28: Labs reviewed. Renal parameters stable. Remains full code. Blood sugar remains high. Levemir dose increased. Not much to add from renal standpoint of view. FiO2 now is 100%. July 27: Labs reviewed. Renal parameters stable. Low potassium addressed. FiO2 70%. Blood sugar elevated. Levemir dose is being adjusted. Continue per consultants. July 26: Labs reviewed. Renal parameters stable. Patient now intubated on ventilator in ICU. Blood sugar elevated. Levemir added. Will watch electrolytes. Main management per wool mixer and ID. July 25: Labs reviewed. Renal parameters stable. Continue per consultants. July 24: Labs reviewed. Renal parameters stable. Continue per pulmonary. Medication list reviewed. July 23: No labs drawn today. Medication list reviewed. Continue per managed services sales consultant. Patient full code. July 22: Labs reviewed. Stable renal parameters. Continue per consultants. July 21: No CHEM panel drawn today. Stable from renal standpoint of view. Blood pressure stable. July 20: IV changed to D5W 50 cc an hour. Renal parameters stable. Continue per consultants. July 19: Pulmonary status remains unstable. Stable from renal standpoint of view. July 18: Labs reviewed. Stable renal parameters and electrolytes. Continue per consultants. July 17: No labs drawn today. Remains stable from renal standpoint today. July 16: No labs drawn today. Continue per consultants. Stable from renal standpoint of view. July 15: Labs reviewed. Renal parameters stable. July 14: No labs from today. Continue per current management. Check labs tomorrow. July 13: No labs drawn today. Stable from renal standpoint of view. July 12: Today's labs pending. Medication list reviewed. Continue per current management and consultants. July 11: Labs reviewed. Renal parameters stable. July 10: Labs reviewed. Renal parameters electrolytes stable. Continue per consultants. July 09: Labs reviewed. Renal parameters and electrolytes stable. Continue per ID and pulmonary. Subjective ROS Limited/Unobtainable: Yes Objective Objective Last 24 Hour Vital Signs Date Time Temp Pulse Resp B/P (MAP) Pulse Ox O2 Delivery O2 Flow Rate FiO2 08/08/20 08:33 98 88/52 08/08/20 08:00 98.6 132 27 101/56 (71) 58 08/08/20 08:00 132 08/08/20 08:00 Mechanical Ventilator 08/08/20 08:00 100 08/08/20 07:30 135 18 107/59 (75) 42 08/08/20 07:00 131 30 138/78 (98) 43 08/08/20 06:44 32 157/86 Mechanical Ventilator 100 08/08/20 06:44 32 157/86 Mechanical Ventilator 100 08/08/20 06:30 75 22 121/79 (93) 92 08/08/20 06:15 77 22 115/84 (94) 92 08/08/20 06:00 77 25 118/83 (95) 92 08/08/20 06:00 22 121/79 Mechanical Ventilator 100 08/08/20 06:00 22 121/79 Mechanical Ventilator 100 08/08/20 05:46 22 117/77 Mechanical Ventilator 100 08/08/20 05:45 79 22 112/72 (85) 93 08/08/20 05:30 76 25 117/77 (90) 96 08/08/20 05:15 83 23 118/77 (91) 98 08/08/20 05:00 88 22 121/77 (92) 99 08/08/20 05:00 22 117/77 Mechanical Ventilator 100 08/08/20 05:00 22 117/7 Mechanical Ventilator 100 08/08/20 04:45 74 20 109/75 (86) 97 08/08/20 04:30 79 25 107/69 (82) 96 08/08/20 04:15 74 26 100/71 (81) 94 08/08/20 04:00 97.1 76 25 106/69 (81) 94 08/08/20 04:00 100 08/08/20 04:00 72 08/08/20 04:00 23 100/71 Mechanical Ventilator 100 08/08/20 04:00 23 100/71 Mechanical Ventilator 100 08/08/20 04:00 Mechanical Ventilator 08/08/20 03:45 81 24 103/68 (80) 93 08/08/20 03:30 76 23 103/66 (78) 94 08/08/20 03:15 84 24 102/61 (75) 94 08/08/20 03:10 76 24 100 08/08/20 03:00 24 102/61 Mechanical Ventilator 100 08/08/20 03:00 24 102/61 Mechanical Ventilator 100 08/08/20 03:00 92 24 103/60 (74) 92 08/08/20 02:58 22 106/67 Mechanical Ventilator 100 08/08/20 02:45 76 24 106/67 (80) 95 08/08/20 02:30 81 22 102/67 (79) 98 08/08/20 02:15 79 22 105/64 (78) 98 08/08/20 02:00 80 22 100/62 (75) 99 08/08/20 02:00 22 105/64 Mechanical Ventilator 100 08/08/20 02:00 22 105/64 Mechanical Ventilator 100 08/08/20 01:45 87 22 86/58 (67) 98 08/08/20 01:30 89 22 86/59 (68) 98 08/08/20 01:15 90 22 95/62 (73) 98 08/08/20 01:00 22 99/62 Mechanical Ventilator 100 08/08/20 01:00 22 99/62 Mechanical Ventilator 100 08/08/20 01:00 97 22 99/62 (74) 97 08/08/20 00:45 119 23 143/82 (102) 43 08/08/20 00:35 22 157/91 Mechanical Ventilator 100 08/08/20 00:30 108 24 157/91 (113) 84 08/08/20 00:30 100 08/08/20 00:15 83 26 110/72 (85) 95 08/08/20 00:00 98.4 84 23 108/67 (81) 93 08/08/20 00:00 Mechanical Ventilator 08/08/20 00:00 86 08/08/20 00:00 24 108/67 Mechanical Ventilator 100 08/08/20 00:00 24 108/67 Mechanical Ventilator 100 08/07/20 23:45 85 26 108/67 (81) 94 08/07/20 23:30 89 27 107/67 (80) 93 08/07/20 23:15 85 26 106/67 (80) 94 08/07/20 23:09 84 28 100 08/07/20 23:00 26 106/67 Mechanical Ventilator 100 08/07/20 23:00 26 106/67 Mechanical Ventilator 100 08/07/20 23:00 87 25 108/71 (83) 93 08/07/20 22:45 85 26 105/72 (83) 94 08/07/20 22:30 87 26 105/73 (84) 93 08/07/20 22:15 88 25 107/69 (82) 93 08/07/20 22:00 26 105/67 Mechanical Ventilator 100 08/07/20 22:00 26 105/67 Mechanical Ventilator 100 08/07/20 22:00 89 27 105/67 (80) 92 08/07/20 21:45 86 27 109/68 (82) 93 08/07/20 21:30 89 25 99/72 (81) 93 08/07/20 21:15 88 26 109/74 (86) 95 08/07/20 21:00 95 24 113/72 (86) 96 08/07/20 21:00 22 109/72 Mechanical Ventilator 100 08/07/20 21:00 22 109/72 Mechanical Ventilator 100 08/07/20 20:50 107 21 125/78 (94) 91 08/07/20 20:45 40 145/118 Mechanical Ventilator 100 08/07/20 20:45 40 145/118 Mechanical Ventilator 100 08/07/20 20:45 120 27 145/118 (127) 87 08/07/20 20:30 91 23 114/74 (87) 96 08/07/20 20:15 92 23 112/78 (89) 96 08/07/20 20:00 98.5 92 22 123/81 (95) 97 08/07/20 20:00 Mechanical Ventilator 08/07/20 20:00 22 128/58 Mechanical Ventilator 100 08/07/20 20:00 22 108/58 Mechanical Ventilator 100 08/07/20 20:00 102 08/07/20 19:45 87 24 109/75 (86) 94 08/07/20 19:30 88 22 112/74 (87) 94 08/07/20 19:20 87 27 100 08/07/20 19:15 85 25 108/78 (88) 94 08/07/20 19:00 22 110/80 Mechanical Ventilator 100 08/07/20 19:00 23 110/80 Mechanical Ventilator 100 08/07/20 19:00 83 26 110/80 (90) 94 08/07/20 18:30 89 25 107/76 (86) 97 08/07/20 18:00 94 22 107/68 (81) 99 08/07/20 18:00 22 107/68 Mechanical Ventilator 100 08/07/20 18:00 22 107/68 Mechanical Ventilator 100 08/07/20 17:50 100 08/07/20 17:30 104 22 99/63 (75) 90 08/07/20 17:10 23 102/66 Mechanical Ventilator 100 08/07/20 17:00 23 102/66 Mechanical Ventilator 100 08/07/20 17:00 23 102/66 Mechanical Ventilator 100 08/07/20 17:00 96 25 102/66 (78) 89 08/07/20 16:30 100 25 103/71 (82) 91 08/07/20 16:00 105 08/07/20 16:00 23 105/73 Mechanical Ventilator 100 08/07/20 16:00 23 105/73 Mechanical Ventilator 100 08/07/20 16:00 Mechanical Ventilator 08/07/20 16:00 98.6 105 23 105/73 (84) 95 08/07/20 16:00 100 08/07/20 15:59 22 105/73 Mechanical Ventilator 100 08/07/20 15:38 122 22 100 08/07/20 15:30 142 22 144/86 (105) 80 08/07/20 15:00 25 94/56 Mechanical Ventilator 100 08/07/20 15:00 25 94/56 Mechanical Ventilator 100 08/07/20 15:00 103 26 94/56 (69) 86 08/07/20 14:30 104 25 92/56 (68) 86 08/07/20 14:00 105 23 85/59 (68) 86 08/07/20 14:00 24 85/59 Mechanical Ventilator 100 08/07/20 14:00 24 85/59 Mechanical Ventilator 100 08/07/20 13:30 117 22 90/56 (67) 90 08/07/20 13:00 114 20 89/52 (64) 81 08/07/20 13:00 22 89/52 Mechanical Ventilator 100 08/07/20 13:00 22 89/52 Mechanical Ventilator 100 08/07/20 12:00 100 08/07/20 12:00 98.6 109 23 83/55 (64) 89 08/07/20 12:00 111 08/07/20 12:00 22 83/55 Mechanical Ventilator 100 08/07/20 12:00 22 83/55 Mechanical Ventilator 100 08/07/20 12:00 Mechanical Ventilator 08/07/20 11:30 119 24 83/51 (62) 80 08/07/20 11:00 18 99/58 Mechanical Ventilator 100 08/07/20 11:00 18 99/58 Mechanical Ventilator 100 08/07/20 11:00 131 18 99/58 (72) 38 08/07/20 10:42 135 24 100 08/07/20 10:30 24 161/95 Mechanical Ventilator 100 08/07/20 10:15 31 182/110 Mechanical Ventilator 100 08/07/20 10:00 133 24 187/99 (128) 84 08/07/20 10:00 29 187/99 Mechanical Ventilator 100 08/07/20 10:00 29 187/99 Mechanical Ventilator 100 08/07/20 09:45 26 165/107 Mechanical Ventilator 100 08/07/20 09:30 119 25 177/116 (136) 92 08/07/20 09:30 24 177/116 Mechanical Ventilator 100 08/07/20 09:15 23 156/103 Mechanical Ventilator 100 08/07/20 09:00 95 21 152/87 (108) 99 08/07/20 09:00 22 152/87 Mechanical Ventilator 100 08/07/20 09:00 22 152/87 Mechanical Ventilator 100 Intake and Output 08/07/20 08/08/20 19:00 07:00 Intake Total 1281.37 ml 1586.50 ml Output Total 835 ml 860 ml Balance 446.37 ml 726.50 ml Free Water 120 ml IV Total 621.37 ml 806.50 ml Tube Feeding 660 ml 660 ml Output Urine Total 685 ml 860 ml Stool Total 150 ml Current Medications Medications (Trade) Dose Ordered Sig/Marian Route PRN Reason Start Time Stop Time Status Last Admin Dose Admin Acetaminophen (Tylenol) 650 mg Q4H PRN RECTAL Temp >100.5 07/18/20 18:30 08/17/20 18:29 08/01/20 16:50 Benzonatate (Tessalon Perles) 100 mg TIDPRN PRN ORAL For Cough 07/18/20 18:30 08/17/20 18:29 Cefepime HCl 2 gm/ Dextrose 55 ml @ 110 mls/hr Q12HR IVPB 07/22/20 13:00 08/10/20 12:59 08/08/20 08:32 Chlorhexidine Gluconate (Rafaela-Hex 2%) 1 applic DAILY@2000 TOPIC 08/01/20 20:00 10/30/20 19:59 08/07/20 19:55 Dextrose (Dextrose 50%) 25 ml Q30M PRN IV Hypoglycemia 07/07/20 15:45 10/05/20 15:44 Dextrose (Dextrose 50%) 50 ml Q30M PRN IV Hypoglycemia 07/07/20 15:45 10/05/20 15:44 Famotidine (Pepcid I.v.) 20 mg Q12HR IVP 07/20/20 09:00 08/19/20 08:59 08/08/20 08:31 Fentanyl Citrate 250 ml @ 0 mls/hr Q24H PRN IV SEDATION 08/06/20 11:14 08/08/20 11:13 08/08/20 02:58 Insulin Aspart (NovoLOG) Q6HR SUBQ 07/26/20 12:00 10/24/20 11:59 08/08/20 06:00 Insulin Detemir (Levemir) 30 units Q12HR SUBQ 08/01/20 21:00 10/24/20 10:29 08/07/20 20:51 Methylprednisolone Sodium Succinate (Solu-MEDROL) 20 mg EVERY 6 HOURS IVP 07/22/20 12:00 10/19/20 08:59 08/08/20 05:44 Metoprolol Tartrate (Lopressor) 25 mg EVERY 12 HOURS NG 07/26/20 21:00 10/24/20 20:59 08/04/20 20:45 Midazolam HCl 200 ml @ 0 mls/hr Q24H PRN IV Agitation 08/06/20 11:56 08/08/20 11:55 08/08/20 05:46 Sorbitol (sorbitoL) 45 ml Q12HR PRN ORAL Constipation 07/30/20 09:15 08/29/20 09:14 Laboratory Tests 08/08/20 03:50: White Blood Count 14.0H, Red Blood Count 2.58L, Hemoglobin 7.3L, Hematocrit 23.3L, Mean Corpuscular Volume 90, Mean Corpuscular Hemoglobin 28.3, Mean Corpuscular Hemoglobin Concent 31.3L, Red Cell Distribution Width 15.3H, Platelet Count 108L, Mean Platelet Volume 8.2, Neutrophils (%) (Auto) , Lymp hocytes (%) (Auto) , Monocytes (%) (Auto) , Eosinophils (%) (Auto) , Basophils (%) (Auto) , Neutrophils % (Manual) [Pending], Lymphocytes % (Manual) [Pending], Platelet Estimate [Pending], Platelet Morphology [Pending], Sodium Level 147H, Potassium Level 4.6, Chloride Level 113H, Carbon Dioxide Level 29, Anion Gap 5, Blood Urea Nitrogen 35H, Creatinine 0.9, Estimat Glomerular Filtration Rate > 60, Glucose Level 230#H, Uric Acid 2.9, Calcium Level 8.1L, Phosphorus Level 2.6, Magnesium Level 1.9, Total Bilirubin 0.2, Aspartate Amino Transf (AST/SGOT) 79H, Alanine Aminotransferase (ALT/SGPT) 163H, Alkaline Phosphatase 113, C- Reactive Protein, Quantitative 1.6H, Pro-B-Type Natriuretic Peptide 3488H, Total Protein 4.4L, Albumin 1.4L, Globulin 3.0, Albumin/Globulin Ratio 0.5L Height (Feet): 5 Height (Inches): 3.00 Weight (Pounds): 162 General Appearance: mild distress Cardiovascular: tachycardia Respiratory/Chest: decreased breath sounds Abdomen: distended Objective No change Anurag Bridges MD Aug 08, 2020 08:55
[2020-08-08] MEDS: Levemir Flexpen SUBQ SCH ×2 (09:05→20:44)
--- NOTE | 2020-08-08 09:37 | Cardiology Progress Note ---
Assessment/Plan Status: not improved Assessment/Plan 1. COVID-19 viral PNA s/p remdesivir and dexamethasone WBCs elevated 2. Respiratory failure 2/2 acute PNA Intubated 07/25/20 3. HFpEF acute on chronic diastolic HF with preserved EF EF 65%, per repeat echo post intubation Lasix for diuresis as needed 4. 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 Sinus tachycardia 2/2 fever and infection 7. Hypotension 2/2 shock, Levophed as needed Hypotensive with worsening infiltrative disease, pressors off and on, still vent dependent. Levophed per critical care team, wean off as tolerated. Repeat echo shows no change. Lasix as needed per pulmonlogy recs. Subjective Subjective Hypotensive requiring pressors. CXR shows worsening infiltrates. Intubated and on vent, in sinus rhythm. Seen in ICU Objective Last 24 Hour Vital Signs Date Time Temp Pulse Resp B/P (MAP) Pulse Ox O2 Delivery O2 Flow Rate FiO2 08/08/20 09:00 96 22 81/51 (61) 97 08/08/20 09:00 22 81/51 Mechanical Ventilator 100 08/08/20 09:00 22 81/57 Mechanical Ventilator 100 08/08/20 08:45 100 22 85/48 (60) 97 08/08/20 08:33 98 88/52 08/08/20 08:30 97 22 88/52 (64) 98 08/08/20 08:00 98.6 132 27 101/56 (71) 58 08/08/20 08:00 22 101/56 Mechanical Ventilator 100 08/08/20 08:00 22 101/56 Mechanical Ventilator 100 08/08/20 08:00 132 08/08/20 08:00 Mechanical Ventilator 08/08/20 08:00 100 08/08/20 07:30 135 18 107/59 (75) 42 08/08/20 07:00 131 30 138/78 (98) 43 08/08/20 06:44 32 157/86 Mechanical Ventilator 100 08/08/20 06:44 32 157/86 Mechanical Ventilator 100 08/08/20 06:30 75 22 121/79 (93) 92 08/08/20 06:15 77 22 115/84 (94) 92 08/08/20 06:00 77 25 118/83 (95) 92 08/08/20 06:00 22 121/79 Mechanical Ventilator 100 08/08/20 06:00 22 121/79 Mechanical Ventilator 100 08/08/20 05:46 22 117/77 Mechanical Ventilator 100 08/08/20 05:45 79 22 112/72 (85) 93 08/08/20 05:30 76 25 117/77 (90) 96 08/08/20 05:15 83 23 118/77 (91) 98 08/08/20 05:00 88 22 121/77 (92) 99 08/08/20 05:00 22 117/77 Mechanical Ventilator 100 08/08/20 05:00 22 117/7 Mechanical Ventilator 100 08/08/20 04:45 74 20 109/75 (86) 97 08/08/20 04:30 79 25 107/69 (82) 96 08/08/20 04:15 74 26 100/71 (81) 94 08/08/20 04:00 97.1 76 25 106/69 (81) 94 08/08/20 04:00 100 08/08/20 04:00 72 08/08/20 04:00 23 100/71 Mechanical Ventilator 100 08/08/20 04:00 23 100/71 Mechanical Ventilator 100 08/08/20 04:00 Mechanical Ventilator 08/08/20 03:45 81 24 103/68 (80) 93 08/08/20 03:30 76 23 103/66 (78) 94 08/08/20 03:15 84 24 102/61 (75) 94 08/08/20 03:10 76 24 100 08/08/20 03:00 24 102/61 Mechanical Ventilator 100 08/08/20 03:00 24 102/61 Mechanical Ventilator 100 08/08/20 03:00 92 24 103/60 (74) 92 08/08/20 02:58 22 106/67 Mechanical Ventilator 100 08/08/20 02:45 76 24 106/67 (80) 95 08/08/20 02:30 81 22 102/67 (79) 98 08/08/20 02:15 79 22 105/64 (78) 98 08/08/20 02:00 80 22 100/62 (75) 99 08/08/20 02:00 22 105/64 Mechanical Ventilator 100 08/08/20 02:00 22 105/64 Mechanical Ventilator 100 08/08/20 01:45 87 22 86/58 (67) 98 08/08/20 01:30 89 22 86/59 (68) 98 08/08/20 01:15 90 22 95/62 (73) 98 08/08/20 01:00 22 99/62 Mechanical Ventilator 100 08/08/20 01:00 22 99/62 Mechanical Ventilator 100 08/08/20 01:00 97 22 99/62 (74) 97 08/08/20 00:45 119 23 143/82 (102) 43 08/08/20 00:35 22 157/91 Mechanical Ventilator 100 08/08/20 00:30 108 24 157/91 (113) 84 08/08/20 00:30 100 08/08/20 00:15 83 26 110/72 (85) 95 08/08/20 00:00 98.4 84 23 108/67 (81) 93 08/08/20 00:00 Mechanical Ventilator 08/08/20 00:00 86 08/08/20 00:00 24 108/67 Mechanical Ventilator 100 08/08/20 00:00 24 108/67 Mechanical Ventilator 100 08/07/20 23:45 85 26 108/67 (81) 94 08/07/20 23:30 89 27 107/67 (80) 93 08/07/20 23:15 85 26 106/67 (80) 94 08/07/20 23:09 84 28 100 08/07/20 23:00 26 106/67 Mechanical Ventilator 100 08/07/20 23:00 26 106/67 Mechanical Ventilator 100 08/07/20 23:00 87 25 108/71 (83) 93 08/07/20 22:45 85 26 105/72 (83) 94 08/07/20 22:30 87 26 105/73 (84) 93 08/07/20 22:15 88 25 107/69 (82) 93 08/07/20 22:00 26 105/67 Mechanical Ventilator 100 08/07/20 22:00 26 105/67 Mechanical Ventilator 100 08/07/20 22:00 89 27 105/67 (80) 92 08/07/20 21:45 86 27 109/68 (82) 93 08/07/20 21:30 89 25 99/72 (81) 93 08/07/20 21:15 88 26 109/74 (86) 95 08/07/20 21:00 95 24 113/72 (86) 96 08/07/20 21:00 22 109/72 Mechanical Ventilator 100 08/07/20 21:00 22 109/72 Mechanical Ventilator 100 08/07/20 20:50 107 21 125/78 (94) 91 08/07/20 20:45 40 145/118 Mechanical Ventilator 100 08/07/20 20:45 40 145/118 Mechanical Ventilator 100 08/07/20 20:45 120 27 145/118 (127) 87 08/07/20 20:30 91 23 114/74 (87) 96 08/07/20 20:15 92 23 112/78 (89) 96 08/07/20 20:00 98.5 92 22 123/81 (95) 97 08/07/20 20:00 Mechanical Ventilator 08/07/20 20:00 22 128/58 Mechanical Ventilator 100 08/07/20 20:00 22 108/58 Mechanical Ventilator 100 08/07/20 20:00 102 08/07/20 19:45 87 24 109/75 (86) 94 08/07/20 19:30 88 22 112/74 (87) 94 08/07/20 19:20 87 27 100 08/07/20 19:15 85 25 108/78 (88) 94 08/07/20 19:00 22 110/80 Mechanical Ventilator 100 08/07/20 19:00 23 110/80 Mechanical Ventilator 100 08/07/20 19:00 83 26 110/80 (90) 94 08/07/20 18:30 89 25 107/76 (86) 97 08/07/20 18:00 94 22 107/68 (81) 99 08/07/20 18:00 22 107/68 Mechanical Ventilator 100 08/07/20 18:00 22 107/68 Mechanical Ventilator 100 08/07/20 17:50 100 08/07/20 17:30 104 22 99/63 (75) 90 08/07/20 17:10 23 102/66 Mechanical Ventilator 100 08/07/20 17:00 23 102/66 Mechanical Ventilator 100 08/07/20 17:00 23 102/66 Mechanical Ventilator 100 08/07/20 17:00 96 25 102/66 (78) 89 08/07/20 16:30 100 25 103/71 (82) 91 08/07/20 16:00 105 08/07/20 16:00 23 105/73 Mechanical Ventilator 100 08/07/20 16:00 23 105/73 Mechanical Ventilator 100 08/07/20 16:00 Mechanical Ventilator 08/07/20 16:00 98.6 105 23 105/73 (84) 95 08/07/20 16:00 100 08/07/20 15:59 22 105/73 Mechanical Ventilator 100 08/07/20 15:38 122 22 100 08/07/20 15:30 142 22 144/86 (105) 80 08/07/20 15:00 25 94/56 Mechanical Ventilator 100 08/07/20 15:00 25 94/56 Mechanical Ventilator 100 08/07/20 15:00 103 26 94/56 (69) 86 08/07/20 14:30 104 25 92/56 (68) 86 08/07/20 14:00 105 23 85/59 (68) 86 08/07/20 14:00 24 85/59 Mechanical Ventilator 100 08/07/20 14:00 24 85/59 Mechanical Ventilator 100 08/07/20 13:30 117 22 90/56 (67) 90 08/07/20 13:00 114 20 89/52 (64) 81 08/07/20 13:00 22 89/52 Mechanical Ventilator 100 08/07/20 13:00 22 89/52 Mechanical Ventilator 100 08/07/20 12:00 100 08/07/20 12:00 98.6 109 23 83/55 (64) 89 08/07/20 12:00 111 08/07/20 12:00 22 83/55 Mechanical Ventilator 100 08/07/20 12:00 22 83/55 Mechanical Ventilator 100 08/07/20 12:00 Mechanical Ventilator 08/07/20 11:30 119 24 83/51 (62) 80 08/07/20 11:00 18 99/58 Mechanical Ventilator 100 08/07/20 11:00 18 99/58 Mechanical Ventilator 100 08/07/20 11:00 131 18 99/58 (72) 38 08/07/20 10:42 135 24 100 08/07/20 10:30 24 161/95 Mechanical Ventilator 100 08/07/20 10:15 31 182/110 Mechanical Ventilator 100 08/07/20 10:00 133 24 187/99 (128) 84 08/07/20 10:00 29 187/99 Mechanical Ventilator 100 08/07/20 10:00 29 187/99 Mechanical Ventilator 100 08/07/20 09:45 26 165/107 Mechanical Ventilator 100 Intake and Output 08/07/20 08/08/20 19:00 07:00 Intake Total 1281.37 ml 1586.50 ml Output Total 835 ml 860 ml Balance 446.37 ml 726.50 ml Free Water 120 ml IV Total 621.37 ml 806.50 ml Tube Feeding 660 ml 660 ml Output Urine Total 685 ml 860 ml Stool Total 150 ml Laboratory Tests Test 08/08/20 03:50 White Blood Count 14.0 K/UL (4.8-10.8) H Red Blood Count 2.58 M/UL (4.20-5.40) L Hemoglobin 7.3 G/DL (12.0-16.0) L Hematocrit 23.3 % (37.0-47.0) L Mean Corpuscular Volume 90 FL (80-99) Mean Corpuscular Hemoglobin 28.3 PG (27.0-31.0) Mean Corpuscular Hemoglobin Concent 31.3 G/DL (32.0-36.0) L Red Cell Distribution Width 15.3 % (11.6-14.8) H Platelet Count 108 K/UL (150-450) L Mean Platelet Volume 8.2 FL (6.5-10.1) Neutrophils (%) (Auto) % (45.0-75.0) Lymphocytes (%) (Auto) % (20.0-45.0) Monocytes (%) (Auto) % (1.0-10.0) Eosinophils (%) (Auto) % (0.0-3.0) Basophils (%) (Auto) % (0.0-2.0) Differential Total Cells Counted 100 Neutrophils % (Manual) 92 % (45-75) H Lymphocytes % (Manual) 6 % (20-45) L Monocytes % (Manual) 2 % (1-10) Eosinophils % (Manual) 0 % (0-3) Basophils % (Manual) 0 % (0-2) Band Neutrophils 0 % (0-8) Platelet Estimate Decreased L Platelet Morphology Normal Polychromasia 1+ Hypochromasia 2+ Anisocytosis 1+ Sodium Level 147 MMOL/L (136-145) H Potassium Level 4.6 MMOL/L (3.5-5.1) Chloride Level 113 MMOL/L (98-107) H Carbon Dioxide Level 29 MMOL/L (21-32) Anion Gap 5 mmol/L (5-15) Blood Urea Nitrogen 35 mg/dL (7-18) H Creatinine 0.9 MG/DL (0.55-1.30) Estimat Glomerular Filtration Rate > 60 mL/min (>60) Glucose Level 230 MG/DL (74-106) #H Uric Acid 2.9 MG/DL (2.6-7.2) Calcium Level 8.1 MG/DL (8.5-10.1) L Phosphorus Level 2.6 MG/DL (2.5-4.9) Magnesium Level 1.9 MG/DL (1.8-2.4) Total Bilirubin 0.2 MG/DL (0.2-1.0) Aspartate Amino Transf (AST/SGOT) 79 U/L (15-37) H Alanine Aminotransferase (ALT/SGPT) 163 U/L (12-78) H Alkaline Phosphatase 113 U/L (46-116) C-Reactive Protein, Quantitative 1.6 mg/dL (0.00-0.90) H Pro-B-Type Natriuretic Peptide 3488 pg/mL (0-125) H Total Protein 4.4 G/DL (6.4-8.2) L Albumin 1.4 G/DL (3.4-5.0) L Globulin 3.0 g/dL Albumin/Globulin Ratio 0.5 (1.0-2.7) L Blanca Lobato PA-C Aug 08, 2020 09:37
[2020-08-08] MEDS: Norepinephrine 4mg/NS Premix 250 ML IV SCH (09:57)
--- NOTE | 2020-08-08 10:40 | NUR ---
NURSE NOTES: TIO Mohamud on the unit making his rounds. Updated him on pt's current condition.
--- NOTE | 2020-08-08 11:17 | NUR ---
NURSE NOTES: Discussed pt's Hgb 7.[address] Edward. No blood transfusion ordered at this time.
--- NOTE | 2020-08-08 11:22 | Infectious Diseases Prog Note ---
Assessment/Plan Assessment/Plan antibiotics : cefepime A 1. covid 19 pneumonia on 100 % Fio2 with 98 % saturation 2. pseudomonas pneumonia 3. respiratory failure 4. leucocytosis improving 5. diabetes mellitus P 1. continue cefepime 1 more day 2. will follow up cultures Subjective ROS Limited/Unobtainable: Yes Allergies: Coded Allergies: No Known Allergies (Unverified , 07/07/20) Objective Last 24 Hour Vital Signs Date Time Temp Pulse Resp B/P (MAP) Pulse Ox O2 Delivery O2 Flow Rate FiO2 08/08/20 11:00 76 22 107/69 (82) 98 08/08/20 11:00 22 107/69 Mechanical Ventilator 100 08/08/20 11:00 22 107/69 Mechanical Ventilator 100 08/08/20 10:00 81 22 99/67 (78) 97 08/08/20 10:00 22 96/65 Mechanical Ventilator 100 08/08/20 10:00 22 96/65 Mechanical Ventilator 100 08/08/20 09:59 22 96/65 Mechanical Ventilator 100 08/08/20 09:57 98/65 08/08/20 09:00 96 22 81/51 (61) 97 08/08/20 09:00 22 81/51 Mechanical Ventilator 100 08/08/20 09:00 22 81/57 Mechanical Ventilator 100 08/08/20 08:45 100 22 85/48 (60) 97 08/08/20 08:33 98 88/52 08/08/20 08:30 97 22 88/52 (64) 98 08/08/20 08:00 98.6 132 27 101/56 (71) 58 08/08/20 08:00 22 101/56 Mechanical Ventilator 100 08/08/20 08:00 22 101/56 Mechanical Ventilator 100 08/08/20 08:00 132 08/08/20 08:00 Mechanical Ventilator 08/08/20 08:00 100 08/08/20 07:46 99 22 100 08/08/20 07:30 135 18 107/59 (75) 42 08/08/20 07:00 131 30 138/78 (98) 43 08/08/20 06:44 32 157/86 Mechanical Ventilator 100 08/08/20 06:44 32 157/86 Mechanical Ventilator 100 08/08/20 06:30 75 22 121/79 (93) 92 08/08/20 06:15 77 22 115/84 (94) 92 08/08/20 06:00 77 25 118/83 (95) 92 08/08/20 06:00 22 121/79 Mechanical Ventilator 100 08/08/20 06:00 22 121/79 Mechanical Ventilator 100 08/08/20 05:46 22 117/77 Mechanical Ventilator 100 08/08/20 05:45 79 22 112/72 (85) 93 08/08/20 05:30 76 25 117/77 (90) 96 08/08/20 05:15 83 23 118/77 (91) 98 08/08/20 05:00 88 22 121/77 (92) 99 08/08/20 05:00 22 117/77 Mechanical Ventilator 100 08/08/20 05:00 22 117/7 Mechanical Ventilator 100 08/08/20 04:45 74 20 109/75 (86) 97 08/08/20 04:30 79 25 107/69 (82) 96 08/08/20 04:15 74 26 100/71 (81) 94 08/08/20 04:00 97.1 76 25 106/69 (81) 94 08/08/20 04:00 100 08/08/20 04:00 72 08/08/20 04:00 23 100/71 Mechanical Ventilator 100 08/08/20 04:00 23 100/71 Mechanical Ventilator 100 08/08/20 04:00 Mechanical Ventilator 08/08/20 03:45 81 24 103/68 (80) 93 08/08/20 03:30 76 23 103/66 (78) 94 08/08/20 03:15 84 24 102/61 (75) 94 08/08/20 03:10 76 24 100 08/08/20 03:00 24 102/61 Mechanical Ventilator 100 08/08/20 03:00 24 102/61 Mechanical Ventilator 100 08/08/20 03:00 92 24 103/60 (74) 92 08/08/20 02:58 22 106/67 Mechanical Ventilator 100 08/08/20 02:45 76 24 106/67 (80) 95 08/08/20 02:30 81 22 102/67 (79) 98 08/08/20 02:15 79 22 105/64 (78) 98 08/08/20 02:00 80 22 100/62 (75) 99 08/08/20 02:00 22 105/64 Mechanical Ventilator 100 08/08/20 02:00 22 105/64 Mechanical Ventilator 100 08/08/20 01:45 87 22 86/58 (67) 98 08/08/20 01:30 89 22 86/59 (68) 98 08/08/20 01:15 90 22 95/62 (73) 98 08/08/20 01:00 22 99/62 Mechanical Ventilator 100 08/08/20 01:00 22 99/62 Mechanical Ventilator 100 08/08/20 01:00 97 22 99/62 (74) 97 08/08/20 00:45 119 23 143/82 (102) 43 08/08/20 00:35 22 157/91 Mechanical Ventilator 100 08/08/20 00:30 108 24 157/91 (113) 84 08/08/20 00:30 100 08/08/20 00:15 83 26 110/72 (85) 95 08/08/20 00:00 98.4 84 23 108/67 (81) 93 08/08/20 00:00 Mechanical Ventilator 08/08/20 00:00 86 08/08/20 00:00 24 108/67 Mechanical Ventilator 100 08/08/20 00:00 24 108/67 Mechanical Ventilator 100 08/07/20 23:45 85 26 108/67 (81) 94 08/07/20 23:30 89 27 107/67 (80) 93 08/07/20 23:15 85 26 106/67 (80) 94 08/07/20 23:09 84 28 100 08/07/20 23:00 26 106/67 Mechanical Ventilator 100 08/07/20 23:00 26 106/67 Mechanical Ventilator 100 08/07/20 23:00 87 25 108/71 (83) 93 08/07/20 22:45 85 26 105/72 (83) 94 08/07/20 22:30 87 26 105/73 (84) 93 08/07/20 22:15 88 25 107/69 (82) 93 08/07/20 22:00 26 105/67 Mechanical Ventilator 100 08/07/20 22:00 26 105/67 Mechanical Ventilator 100 08/07/20 22:00 89 27 105/67 (80) 92 08/07/20 21:45 86 27 109/68 (82) 93 08/07/20 21:30 89 25 99/72 (81) 93 08/07/20 21:15 88 26 109/74 (86) 95 08/07/20 21:00 95 24 113/72 (86) 96 08/07/20 21:00 22 109/72 Mechanical Ventilator 100 08/07/20 21:00 22 109/72 Mechanical Ventilator 100 08/07/20 20:50 107 21 125/78 (94) 91 08/07/20 20:45 40 145/118 Mechanical Ventilator 100 08/07/20 20:45 40 145/118 Mechanical Ventilator 100 08/07/20 20:45 120 27 145/118 (127) 87 08/07/20 20:30 91 23 114/74 (87) 96 08/07/20 20:15 92 23 112/78 (89) 96 08/07/20 20:00 98.5 92 22 123/81 (95) 97 08/07/20 20:00 Mechanical Ventilator 08/07/20 20:00 22 128/58 Mechanical Ventilator 100 08/07/20 20:00 22 108/58 Mechanical Ventilator 100 08/07/20 20:00 102 08/07/20 19:45 87 24 109/75 (86) 94 08/07/20 19:30 88 22 112/74 (87) 94 08/07/20 19:20 87 27 100 08/07/20 19:15 85 25 108/78 (88) 94 08/07/20 19:00 22 110/80 Mechanical Ventilator 100 08/07/20 19:00 23 110/80 Mechanical Ventilator 100 08/07/20 19:00 83 26 110/80 (90) 94 08/07/20 18:30 89 25 107/76 (86) 97 08/07/20 18:00 94 22 107/68 (81) 99 08/07/20 18:00 22 107/68 Mechanical Ventilator 100 08/07/20 18:00 22 107/68 Mechanical Ventilator 100 08/07/20 17:50 100 08/07/20 17:30 104 22 99/63 (75) 90 08/07/20 17:10 23 102/66 Mechanical Ventilator 100 08/07/20 17:00 23 102/66 Mechanical Ventilator 100 08/07/20 17:00 23 102/66 Mechanical Ventilator 100 08/07/20 17:00 96 25 102/66 (78) 89 08/07/20 16:30 100 25 103/71 (82) 91 08/07/20 16:00 105 08/07/20 16:00 23 105/73 Mechanical Ventilator 100 08/07/20 16:00 23 105/73 Mechanical Ventilator 100 08/07/20 16:00 Mechanical Ventilator 08/07/20 16:00 98.6 105 23 105/73 (84) 95 08/07/20 16:00 100 08/07/20 15:59 22 105/73 Mechanical Ventilator 100 08/07/20 15:38 122 22 100 08/07/20 15:30 142 22 144/86 (105) 80 08/07/20 15:00 25 94/56 Mechanical Ventilator 100 08/07/20 15:00 25 94/56 Mechanical Ventilator 100 08/07/20 15:00 103 26 94/56 (69) 86 08/07/20 14:30 104 25 92/56 (68) 86 08/07/20 14:00 105 23 85/59 (68) 86 08/07/20 14:00 24 85/59 Mechanical Ventilator 100 08/07/20 14:00 24 85/59 Mechanical Ventilator 100 08/07/20 13:30 117 22 90/56 (67) 90 08/07/20 13:00 114 20 89/52 (64) 81 08/07/20 13:00 22 89/52 Mechanical Ventilator 100 08/07/20 13:00 22 89/52 Mechanical Ventilator 100 08/07/20 12:00 100 08/07/20 12:00 98.6 109 23 83/55 (64) 89 08/07/20 12:00 111 08/07/20 12:00 22 83/55 Mechanical Ventilator 100 08/07/20 12:00 22 83/55 Mechanical Ventilator 100 08/07/20 12:00 Mechanical Ventilator 08/07/20 11:30 119 24 83/51 (62) 80 Height (Feet): 5 Height (Inches): 3.00 Weight (Pounds): 162 HEENT: other - intubated Respiratory/Chest: lungs clear Cardiovascular: normal rate, regular rhythm, no gallop/murmur Abdomen: soft, non tender Extremities: other - + edema, right groin catheter Laboratory Tests Test 08/08/20 03:50 White Blood Count 14.0 K/UL (4.8-10.8) H Red Blood Count 2.58 M/UL (4.20-5.40) L Hemoglobin 7.3 G/DL (12.0-16.0) L Hematocrit 23.3 % (37.0-47.0) L Mean Corpuscular Volume 90 FL (80-99) Mean Corpuscular Hemoglobin 28.3 PG (27.0-31.0) Mean Corpuscular Hemoglobin Concent 31.3 G/DL (32.0-36.0) L Red Cell Distribution Width 15.3 % (11.6-14.8) H Platelet Count 108 K/UL (150-450) L Mean Platelet Volume 8.2 FL (6.5-10.1) Neutrophils (%) (Auto) % (45.0-75.0) Lymphocytes (%) (Auto) % (20.0-45.0) Monocytes (%) (Auto) % (1.0-10.0) Eosinophils (%) (Auto) % (0.0-3.0) Basophils (%) (Auto) % (0.0-2.0) Differential Total Cells Counted 100 Neutrophils % (Manual) 92 % (45-75) H Lymphocytes % (Manual) 6 % (20-45) L Monocytes % (Manual) 2 % (1-10) Eosinophils % (Manual) 0 % (0-3) Basophils % (Manual) 0 % (0-2) Band Neutrophils 0 % (0-8) Platelet Estimate Decreased L Platelet Morphology Normal Polychromasia 1+ Hypochromasia 2+ Anisocytosis 1+ Sodium Level 147 MMOL/L (136-145) H Potassium Level 4.6 MMOL/L (3.5-5.1) Chloride Level 113 MMOL/L (98-107) H Carbon Dioxide Level 29 MMOL/L (21-32) Anion Gap 5 mmol/L (5-15) Blood Urea Nitrogen 35 mg/dL (7-18) H Creatinine 0.9 MG/DL (0.55-1.30) Estimat Glomerular Filtration Rate > 60 mL/min (>60) Glucose Level 230 MG/DL (74-106) #H Uric Acid 2.9 MG/DL (2.6-7.2) Calcium Level 8.1 MG/DL (8.5-10.1) L Phosphorus Level 2.6 MG/DL (2.5-4.9) Magnesium Level 1.9 MG/DL (1.8-2.4) Total Bilirubin 0.2 MG/DL (0.2-1.0) Aspartate Amino Transf (AST/SGOT) 79 U/L (15-37) H Alanine Aminotransferase (ALT/SGPT) 163 U/L (12-78) H Alkaline Phosphatase 113 U/L (46-116) C-Reactive Protein, Quantitative 1.6 mg/dL (0.00-0.90) H Pro-B-Type Natriuretic Peptide 3488 pg/mL (0-125) H Total Protein 4.4 G/DL (6.4-8.2) L Albumin 1.4 G/DL (3.4-5.0) L Globulin 3.0 g/dL Albumin/Globulin Ratio 0.5 (1.0-2.7) L Current Medications Medications (Trade) Dose Ordered Sig/Marian Route PRN Reason Start Time Stop Time Status Last Admin Dose Admin Acetaminophen (Tylenol) 650 mg Q4H PRN RECTAL Temp >100.5 07/18/20 18:30 08/17/20 18:29 08/01/20 16:50 Cefepime HCl 2 gm/ Dextrose 55 ml @ 110 mls/hr Q12HR IVPB 07/22/20 13:00 08/10/20 12:59 08/08/20 08:32 Chlorhexidine Gluconate (Rafaela-Hex 2%) 1 applic DAILY@2000 TOPIC 08/01/20 20:00 10/30/20 19:59 08/07/20 19:55 Dextrose (Dextrose 50%) 25 ml Q30M PRN IV Hypoglycemia 07/07/20 15:45 10/05/20 15:44 Dextrose (Dextrose 50%) 50 ml Q30M PRN IV Hypoglycemia 07/07/20 15:45 10/05/20 15:44 Famotidine (Pepcid I.v.) 20 mg Q12HR IVP 07/20/20 09:00 08/19/20 08:59 08/08/20 08:31 Insulin Aspart (NovoLOG) Q6HR SUBQ 07/26/20 12:00 10/24/20 11:59 08/08/20 06:00 Insulin Detemir (Levemir) 30 units Q12HR SUBQ 08/01/20 21:00 10/24/20 10:29 08/08/20 09:05 Methylprednisolone Sodium Succinate (Solu-MEDROL) 20 mg EVERY 6 HOURS IVP 07/22/20 12:00 10/19/20 08:59 08/08/20 05:44 Metoprolol Tartrate (Lopressor) 25 mg EVERY 12 HOURS NG 07/26/20 21:00 10/24/20 20:59 08/04/20 20:45 Midazolam HCl 200 ml @ 0 mls/hr Q24H PRN IV Agitation 08/06/20 11:56 08/08/20 11:55 08/08/20 10:00 Norepinephrine Bitartrate 250 ml @ 0 mls/hr Q24H IV 08/08/20 09:30 08/11/20 09:21 08/08/20 09:57 Sorbitol (sorbitoL) 45 ml Q12HR PRN ORAL Constipation 07/30/20 09:15 08/29/20 09:14 Lynne Gonzalez MD Aug 08, 2020 11:22
--- NOTE | 2020-08-08 12:07 | Pulmonology Progress Note ---
Subjective ROS Limited/Unobtainable: Yes Interval Events: S/p intubation Constitutional: Denies: fever HEENT: Repors: no symptoms Respiratory: Reports: shortness of breath Gastrointestinal/Abdominal: Reports: no symptoms Psychiatric: Reports: no symptoms Skin: Reports: no symptoms Musculoskeletal: Reports: no symptoms Allergies: Coded Allergies: No Known Allergies (Unverified , 07/07/20) Objective Last 24 Hour Vital Signs Date Time Temp Pulse Resp B/P (MAP) Pulse Ox O2 Delivery O2 Flow Rate FiO2 08/08/20 12:00 100 08/08/20 12:00 98.4 77 22 108/76 (87) 100 08/08/20 11:30 76 22 99/66 (77) 99 08/08/20 11:00 76 22 107/69 (82) 98 08/08/20 11:00 22 107/69 Mechanical Ventilator 100 08/08/20 11:00 22 107/69 Mechanical Ventilator 100 08/08/20 10:00 81 22 99/67 (78) 97 08/08/20 10:00 22 96/65 Mechanical Ventilator 100 08/08/20 10:00 22 96/65 Mechanical Ventilator 100 08/08/20 09:59 22 96/65 Mechanical Ventilator 100 08/08/20 09:57 98/65 08/08/20 09:00 96 22 81/51 (61) 97 08/08/20 09:00 22 81/51 Mechanical Ventilator 100 08/08/20 09:00 22 81/57 Mechanical Ventilator 100 08/08/20 08:45 100 22 85/48 (60) 97 08/08/20 08:33 98 88/52 08/08/20 08:30 97 22 88/52 (64) 98 08/08/20 08:00 98.6 132 27 101/56 (71) 58 08/08/20 08:00 22 101/56 Mechanical Ventilator 100 08/08/20 08:00 22 101/56 Mechanical Ventilator 100 08/08/20 08:00 132 08/08/20 08:00 Mechanical Ventilator 08/08/20 08:00 100 08/08/20 07:46 99 22 100 08/08/20 07:30 135 18 107/59 (75) 42 08/08/20 07:00 131 30 138/78 (98) 43 08/08/20 06:44 32 157/86 Mechanical Ventilator 100 08/08/20 06:44 32 157/86 Mechanical Ventilator 100 08/08/20 06:30 75 22 121/79 (93) 92 08/08/20 06:15 77 22 115/84 (94) 92 08/08/20 06:00 77 25 118/83 (95) 92 08/08/20 06:00 22 121/79 Mechanical Ventilator 100 08/08/20 06:00 22 121/79 Mechanical Ventilator 100 08/08/20 05:46 22 117/77 Mechanical Ventilator 100 08/08/20 05:45 79 22 112/72 (85) 93 08/08/20 05:30 76 25 117/77 (90) 96 08/08/20 05:15 83 23 118/77 (91) 98 08/08/20 05:00 88 22 121/77 (92) 99 08/08/20 05:00 22 117/77 Mechanical Ventilator 100 08/08/20 05:00 22 117/7 Mechanical Ventilator 100 08/08/20 04:45 74 20 109/75 (86) 97 08/08/20 04:30 79 25 107/69 (82) 96 08/08/20 04:15 74 26 100/71 (81) 94 08/08/20 04:00 97.1 76 25 106/69 (81) 94 08/08/20 04:00 100 08/08/20 04:00 72 08/08/20 04:00 23 100/71 Mechanical Ventilator 100 08/08/20 04:00 23 100/71 Mechanical Ventilator 100 08/08/20 04:00 Mechanical Ventilator 08/08/20 03:45 81 24 103/68 (80) 93 08/08/20 03:30 76 23 103/66 (78) 94 08/08/20 03:15 84 24 102/61 (75) 94 08/08/20 03:10 76 24 100 08/08/20 03:00 24 102/61 Mechanical Ventilator 100 08/08/20 03:00 24 102/61 Mechanical Ventilator 100 08/08/20 03:00 92 24 103/60 (74) 92 08/08/20 02:58 22 106/67 Mechanical Ventilator 100 08/08/20 02:45 76 24 106/67 (80) 95 08/08/20 02:30 81 22 102/67 (79) 98 08/08/20 02:15 79 22 105/64 (78) 98 08/08/20 02:00 80 22 100/62 (75) 99 08/08/20 02:00 22 105/64 Mechanical Ventilator 100 08/08/20 02:00 22 105/64 Mechanical Ventilator 100 08/08/20 01:45 87 22 86/58 (67) 98 08/08/20 01:30 89 22 86/59 (68) 98 08/08/20 01:15 90 22 95/62 (73) 98 08/08/20 01:00 22 99/62 Mechanical Ventilator 100 08/08/20 01:00 22 99/62 Mechanical Ventilator 100 08/08/20 01:00 97 22 99/62 (74) 97 08/08/20 00:45 119 23 143/82 (102) 43 08/08/20 00:35 22 157/91 Mechanical Ventilator 100 08/08/20 00:30 108 24 157/91 (113) 84 08/08/20 00:30 100 08/08/20 00:15 83 26 110/72 (85) 95 08/08/20 00:00 98.4 84 23 108/67 (81) 93 08/08/20 00:00 Mechanical Ventilator 08/08/20 00:00 86 08/08/20 00:00 24 108/67 Mechanical Ventilator 100 08/08/20 00:00 24 108/67 Mechanical Ventilator 100 08/07/20 23:45 85 26 108/67 (81) 94 08/07/20 23:30 89 27 107/67 (80) 93 08/07/20 23:15 85 26 106/67 (80) 94 08/07/20 23:09 84 28 100 08/07/20 23:00 26 106/67 Mechanical Ventilator 100 08/07/20 23:00 26 106/67 Mechanical Ventilator 100 08/07/20 23:00 87 25 108/71 (83) 93 08/07/20 22:45 85 26 105/72 (83) 94 08/07/20 22:30 87 26 105/73 (84) 93 08/07/20 22:15 88 25 107/69 (82) 93 08/07/20 22:00 26 105/67 Mechanical Ventilator 100 08/07/20 22:00 26 105/67 Mechanical Ventilator 100 08/07/20 22:00 89 27 105/67 (80) 92 08/07/20 21:45 86 27 109/68 (82) 93 08/07/20 21:30 89 25 99/72 (81) 93 08/07/20 21:15 88 26 109/74 (86) 95 08/07/20 21:00 95 24 113/72 (86) 96 08/07/20 21:00 22 109/72 Mechanical Ventilator 100 08/07/20 21:00 22 109/72 Mechanical Ventilator 100 08/07/20 20:50 107 21 125/78 (94) 91 08/07/20 20:45 40 145/118 Mechanical Ventilator 100 08/07/20 20:45 40 145/118 Mechanical Ventilator 100 08/07/20 20:45 120 27 145/118 (127) 87 08/07/20 20:30 91 23 114/74 (87) 96 08/07/20 20:15 92 23 112/78 (89) 96 08/07/20 20:00 98.5 92 22 123/81 (95) 97 08/07/20 20:00 Mechanical Ventilator 08/07/20 20:00 22 128/58 Mechanical Ventilator 100 08/07/20 20:00 22 108/58 Mechanical Ventilator 100 08/07/20 20:00 102 08/07/20 19:45 87 24 109/75 (86) 94 08/07/20 19:30 88 22 112/74 (87) 94 08/07/20 19:20 87 27 100 08/07/20 19:15 85 25 108/78 (88) 94 08/07/20 19:00 22 110/80 Mechanical Ventilator 100 08/07/20 19:00 23 110/80 Mechanical Ventilator 100 08/07/20 19:00 83 26 110/80 (90) 94 08/07/20 18:30 89 25 107/76 (86) 97 08/07/20 18:00 94 22 107/68 (81) 99 08/07/20 18:00 22 107/68 Mechanical Ventilator 100 08/07/20 18:00 22 107/68 Mechanical Ventilator 100 08/07/20 17:50 100 08/07/20 17:30 104 22 99/63 (75) 90 08/07/20 17:10 23 102/66 Mechanical Ventilator 100 08/07/20 17:00 23 102/66 Mechanical Ventilator 100 08/07/20 17:00 23 102/66 Mechanical Ventilator 100 08/07/20 17:00 96 25 102/66 (78) 89 08/07/20 16:30 100 25 103/71 (82) 91 08/07/20 16:00 105 08/07/20 16:00 23 105/73 Mechanical Ventilator 100 08/07/20 16:00 23 105/73 Mechanical Ventilator 100 08/07/20 16:00 Mechanical Ventilator 08/07/20 16:00 98.6 105 23 105/73 (84) 95 08/07/20 16:00 100 08/07/20 15:59 22 105/73 Mechanical Ventilator 100 08/07/20 15:38 122 22 100 08/07/20 15:30 142 22 144/86 (105) 80 08/07/20 15:00 25 94/56 Mechanical Ventilator 100 08/07/20 15:00 25 94/56 Mechanical Ventilator 100 08/07/20 15:00 103 26 94/56 (69) 86 08/07/20 14:30 104 25 92/56 (68) 86 08/07/20 14:00 105 23 85/59 (68) 86 08/07/20 14:00 24 85/59 Mechanical Ventilator 100 08/07/20 14:00 24 85/59 Mechanical Ventilator 100 08/07/20 13:30 117 22 90/56 (67) 90 08/07/20 13:00 114 20 89/52 (64) 81 08/07/20 13:00 22 89/52 Mechanical Ventilator 100 08/07/20 13:00 22 89/52 Mechanical Ventilator 100 l Intake and Output 08/07/20 08/08/20 19:00 07:00 Intake Total 1281.37 ml 1586.50 ml Output Total 835 ml 860 ml Balance 446.37 ml 726.50 ml Free Water 120 ml IV Total 621.37 ml 806.50 ml Tube Feeding 660 ml 660 ml Output Urine Total 685 ml 860 ml Stool Total 150 ml General Appearance: no acute distress HEENT: normocephalic Respiratory: decreased breath sounds Cardiovascular: normal peripheral pulses Abdomen: normal bowel sounds Laboratory Tests 08/08/20 03:50: White Blood Count 14.0H, Red Blood Count 2.58L, Hemoglobin 7.3L, Hematocrit 23.3L, Mean Corpuscular Volume 90, Mean Corpuscular Hemoglobin 28.3, Mean Corpuscular Hemoglobin Concent 31.3L, Red Cell Distribution Width 15.3H, Platelet Count 108L, Mean Platelet Volume 8.2, Neutrophils (%) (Auto) , Lymphocytes (%) (Auto) , Monocytes (%) (Auto) , Eosinophils (%) (Auto) , Basophils (%) (Auto) , Differential Total Cells Counted 100, Neutrophils % (Manual) 92H, Lymphocytes % (Manual) 6L, Monocytes % (Manual) 2, Eosinophils % (Manual) 0, Basophils % (Manual) 0, Band Neutrophils 0, Platelet Estimate DecreasedL, Platelet Morphology Normal, Polychromasia 1+, Hypochromasia 2+, Anisocytosis 1+, Sodium Level 147H, Potassium Level 4.6, Chloride Level 113H, Carbon Dioxide Level 29, Anion Gap 5, Blood Urea Nitrogen 35H, Creatinine 0.9, Estimat Glomerular Filtration Rate > 60, Glucose Level 230#H, Uric Acid 2.9, Calcium Level 8.1L, Phosphorus Level 2.6, Magnesium Level 1.9, Total Bilirubin 0.2, Aspartate Amino Transf (AST/SGOT) 79H, Alanine Aminotransferase (ALT/SGPT) 163H, Alkaline Phosphatase 113, C-Reactive Protein, Quantitative 1.6H, Pro-B-Type Natriuretic Peptide 3488H, Total Protein 4.4L, Albumin 1.4L, Globulin 3.0, Albumin/Globulin Ratio 0.5L Current Medications Medications (Trade) Dose Ordered Sig/Marian Route PRN Reason Start Time Stop Time Status Last Admin Dose Admin Acetaminophen (Tylenol) 650 mg Q4H PRN RECTAL Temp >100.5 07/18/20 18:30 08/17/20 18:29 08/01/20 16:50 Cefepime HCl 2 gm/ Dextrose 55 ml @ 110 mls/hr Q12HR IVPB 07/22/20 13:00 08/10/20 12:59 08/08/20 08:32 Chlorhexidine Gluconate (Rafaela-Hex 2%) 1 applic DAILY@2000 TOPIC 08/01/20 20:00 10/30/20 19:59 08/07/20 19:55 Dextrose (Dextrose 50%) 25 ml Q30M PRN IV Hypoglycemia 07/07/20 15:45 10/05/20 15:44 Dextrose (Dextrose 50%) 50 ml Q30M PRN IV Hypoglycemia 07/07/20 15:45 10/05/20 15:44 Famotidine (Pepcid I.v.) 20 mg Q12HR IVP 07/20/20 09:00 08/19/20 08:59 08/08/20 08:31 Insulin Aspart (NovoLOG) Q6HR SUBQ 07/26/20 12:00 10/24/20 11:59 08/08/20 11:36 Insulin Detemir (Levemir) 30 units Q12HR SUBQ 08/01/20 21:00 10/24/20 10:29 08/08/20 09:05 Methylprednisolone Sodium Succinate (Solu-MEDROL) 20 mg EVERY 6 HOURS IVP 07/22/20 12:00 10/19/20 08:59 08/08/20 11:36 Metoprolol Tartrate (Lopressor) 25 mg EVERY 12 HOURS NG 07/26/20 21:00 10/24/20 20:59 08/04/20 20:45 Norepinephrine Bitartrate 250 ml @ 0 mls/hr Q24H IV 08/08/20 09:30 08/11/20 09:21 08/08/20 09:57 Sorbitol (sorbitoL) 45 ml Q12HR PRN ORAL Constipation 07/30/20 09:15 08/29/20 09:14 Assessment/Plan Assessment/Plan 1. COVID-19 pneumonia. - COVID-19 PCR positive (07/07) - s/p remdexsivir, azithromycin - CXR (07/13) no significant change - f/u rapid COVID-19 (07/31) negative -> now off isolation 2. Hypoxemic respiratory distress - s/p decadron (07/08-07/17) - now on Solu-Medrol - intubated; on AC mode - FiO2 100 -> 80-> 100%; continue PEEP 7->8 -> 10-> 8 ->12 - episodically desaturates to 70% 3. Hypertension. - Required central line 08/01/20 -on Levophed 4. Diabetes mellitus. -on insulin sliding scale 5. DVT ppx - on Lovenox, full dose empirically; on hold now due to epistaxis - SCD in place 6. Sputum Cx shows pseudomonas and cony - continue cefepime per ID 7. Suspect bacterial infection given leukocytosis - s/p Diflucan - On Cefepime - s/p IV Vanco - s/p IV Bactrim for possible PJP 8. Pulmonary edema -Off lasix gtt Discussed with bedside RN. No further epistaxis and oral bleeding Hold Lovenox Will give FFP Transfuse prn On Levemir DW family, family discussing possible extubation and comfort care Now DNR The care of this patient was discussed with my supervising physician Time spent for this encounter was approximately 31 minutes Milton Howard Aug 08, 2020 12:06
--- NOTE | 2020-08-08 13:15 | NUR ---
NURSE NOTES: Manny, wound care nurse, at bedside assessing pt's skin. Optifoam placed on bony prominences.
--- NOTE | 2020-08-08 13:18 | General Progress Note ---
Subjective ROS Limited/Unobtainable: No Allergies: Coded Allergies: No Known Allergies (Unverified , 07/07/20) Subjective no event over night on 100 % o2 on pressor tolerating TF Objective Last 24 Hour Vital Signs Date Time Temp Pulse Resp B/P (MAP) Pulse Ox O2 Delivery O2 Flow Rate FiO2 08/08/20 13:00 75 22 106/72 (83) 100 08/08/20 12:00 100 08/08/20 12:00 75 08/08/20 12:00 Mechanical Ventilator 08/08/20 12:00 98.4 77 22 108/76 (87) 100 08/08/20 11:30 76 22 99/66 (77) 99 08/08/20 11:18 75 22 100 08/08/20 11:00 76 22 107/69 (82) 98 08/08/20 11:00 22 107/69 Mechanical Ventilator 100 08/08/20 11:00 22 107/69 Mechanical Ventilator 100 08/08/20 10:00 81 22 99/67 (78) 97 08/08/20 10:00 22 96/65 Mechanical Ventilator 100 08/08/20 10:00 22 96/65 Mechanical Ventilator 100 08/08/20 09:59 22 96/65 Mechanical Ventilator 100 08/08/20 09:57 98/65 08/08/20 09:00 96 22 81/51 (61) 97 08/08/20 09:00 22 81/51 Mechanical Ventilator 100 08/08/20 09:00 22 81/57 Mechanical Ventilator 100 08/08/20 08:45 100 22 85/48 (60) 97 08/08/20 08:33 98 88/52 08/08/20 08:30 97 22 88/52 (64) 98 08/08/20 08:00 98.6 132 27 101/56 (71) 58 08/08/20 08:00 22 101/56 Mechanical Ventilator 100 08/08/20 08:00 22 101/56 Mechanical Ventilator 100 08/08/20 08:00 132 08/08/20 08:00 Mechanical Ventilator 08/08/20 08:00 100 08/08/20 07:46 99 22 100 08/08/20 07:30 135 18 107/59 (75) 42 08/08/20 07:00 131 30 138/78 (98) 43 08/08/20 06:44 32 157/86 Mechanical Ventilator 100 08/08/20 06:44 32 157/86 Mechanical Ventilator 100 08/08/20 06:30 75 22 121/79 (93) 92 08/08/20 06:15 77 22 115/84 (94) 92 08/08/20 06:00 77 25 118/83 (95) 92 08/08/20 06:00 22 121/79 Mechanical Ventilator 100 08/08/20 06:00 22 121/79 Mechanical Ventilator 100 08/08/20 05:46 22 117/77 Mechanical Ventilator 100 08/08/20 05:45 79 22 112/72 (85) 93 08/08/20 05:30 76 25 117/77 (90) 96 08/08/20 05:15 83 23 118/77 (91) 98 08/08/20 05:00 88 22 121/77 (92) 99 08/08/20 05:00 22 117/77 Mechanical Ventilator 100 08/08/20 05:00 22 117/7 Mechanical Ventilator 100 08/08/20 04:45 74 20 109/75 (86) 97 08/08/20 04:30 79 25 107/69 (82) 96 08/08/20 04:15 74 26 100/71 (81) 94 08/08/20 04:00 97.1 76 25 106/69 (81) 94 08/08/20 04:00 100 08/08/20 04:00 72 08/08/20 04:00 23 100/71 Mechanical Ventilator 100 08/08/20 04:00 23 100/71 Mechanical Ventilator 100 08/08/20 04:00 Mechanical Ventilator 08/08/20 03:45 81 24 103/68 (80) 93 08/08/20 03:30 76 23 103/66 (78) 94 08/08/20 03:15 84 24 102/61 (75) 94 08/08/20 03:10 76 24 100 08/08/20 03:00 24 102/61 Mechanical Ventilator 100 08/08/20 03:00 24 102/61 Mechanical Ventilator 100 08/08/20 03:00 92 24 103/60 (74) 92 08/08/20 02:58 22 106/67 Mechanical Ventilator 100 08/08/20 02:45 76 24 106/67 (80) 95 08/08/20 02:30 81 22 102/67 (79) 98 08/08/20 02:15 79 22 105/64 (78) 98 08/08/20 02:00 80 22 100/62 (75) 99 08/08/20 02:00 22 105/64 Mechanical Ventilator 100 08/08/20 02:00 22 105/64 Mechanical Ventilator 100 08/08/20 01:45 87 22 86/58 (67) 98 08/08/20 01:30 89 22 86/59 (68) 98 08/08/20 01:15 90 22 95/62 (73) 98 08/08/20 01:00 22 99/62 Mechanical Ventilator 100 08/08/20 01:00 22 99/62 Mechanical Ventilator 100 08/08/20 01:00 97 22 99/62 (74) 97 08/08/20 00:45 119 23 143/82 (102) 43 08/08/20 00:35 22 157/91 Mechanical Ventilator 100 08/08/20 00:30 108 24 157/91 (113) 84 08/08/20 00:30 100 08/08/20 00:15 83 26 110/72 (85) 95 08/08/20 00:00 98.4 84 23 108/67 (81) 93 08/08/20 00:00 Mechanical Ventilator 08/08/20 00:00 86 08/08/20 00:00 24 108/67 Mechanical Ventilator 100 08/08/20 00:00 24 108/67 Mechanical Ventilator 100 08/07/20 23:45 85 26 108/67 (81) 94 08/07/20 23:30 89 27 107/67 (80) 93 08/07/20 23:15 85 26 106/67 (80) 94 08/07/20 23:09 84 28 100 08/07/20 23:00 26 106/67 Mechanical Ventilator 100 08/07/20 23:00 26 106/67 Mechanical Ventilator 100 08/07/20 23:00 87 25 108/71 (83) 93 08/07/20 22:45 85 26 105/72 (83) 94 08/07/20 22:30 87 26 105/73 (84) 93 08/07/20 22:15 88 25 107/69 (82) 93 08/07/20 22:00 26 105/67 Mechanical Ventilator 100 08/07/20 22:00 26 105/67 Mechanical Ventilator 100 08/07/20 22:00 89 27 105/67 (80) 92 08/07/20 21:45 86 27 109/68 (82) 93 08/07/20 21:30 89 25 99/72 (81) 93 08/07/20 21:15 88 26 109/74 (86) 95 08/07/20 21:00 95 24 113/72 (86) 96 08/07/20 21:00 22 109/72 Mechanical Ventilator 100 08/07/20 21:00 22 109/72 Mechanical Ventilator 100 08/07/20 20:50 107 21 125/78 (94) 91 08/07/20 20:45 40 145/118 Mechanical Ventilator 100 08/07/20 20:45 40 145/118 Mechanical Ventilator 100 08/07/20 20:45 120 27 145/118 (127) 87 08/07/20 20:30 91 23 114/74 (87) 96 08/07/20 20:15 92 23 112/78 (89) 96 08/07/20 20:00 98.5 92 22 123/81 (95) 97 08/07/20 20:00 Mechanical Ventilator 08/07/20 20:00 22 128/58 Mechanical Ventilator 100 08/07/20 20:00 22 108/58 Mechanical Ventilator 100 08/07/20 20:00 102 08/07/20 19:45 87 24 109/75 (86) 94 08/07/20 19:30 88 22 112/74 (87) 94 08/07/20 19:20 87 27 100 08/07/20 19:15 85 25 108/78 (88) 94 08/07/20 19:00 22 110/80 Mechanical Ventilator 100 08/07/20 19:00 23 110/80 Mechanical Ventilator 100 08/07/20 19:00 83 26 110/80 (90) 94 08/07/20 18:30 89 25 107/76 (86) 97 08/07/20 18:00 94 22 107/68 (81) 99 08/07/20 18:00 22 107/68 Mechanical Ventilator 100 08/07/20 18:00 22 107/68 Mechanical Ventilator 100 08/07/20 17:50 100 08/07/20 17:30 104 22 99/63 (75) 90 08/07/20 17:10 23 102/66 Mechanical Ventilator 100 08/07/20 17:00 23 102/66 Mechanical Ventilator 100 08/07/20 17:00 23 102/66 Mechanical Ventilator 100 08/07/20 17:00 96 25 102/66 (78) 89 08/07/20 16:30 100 25 103/71 (82) 91 08/07/20 16:00 105 08/07/20 16:00 23 105/73 Mechanical Ventilator 100 08/07/20 16:00 23 105/73 Mechanical Ventilator 100 08/07/20 16:00 Mechanical Ventilator 08/07/20 16:00 98.6 105 23 105/73 (84) 95 08/07/20 16:00 100 08/07/20 15:59 22 105/73 Mechanical Ventilator 100 08/07/20 15:38 122 22 100 08/07/20 15:30 142 22 144/86 (105) 80 08/07/20 15:00 25 94/56 Mechanical Ventilator 100 08/07/20 15:00 25 94/56 Mechanical Ventilator 100 08/07/20 15:00 103 26 94/56 (69) 86 08/07/20 14:30 104 25 92/56 (68) 86 08/07/20 14:00 105 23 85/59 (68) 86 08/07/20 14:00 24 85/59 Mechanical Ventilator 100 08/07/20 14:00 24 85/59 Mechanical Ventilator 100 08/07/20 13:30 117 22 90/56 (67) 90 Intake and Output 08/07/20 08/08/20 19:00 07:00 Intake Total 1281.37 ml 1586.50 ml Output Total 835 ml 860 ml Balance 446.37 ml 726.50 ml Free Water 120 ml IV Total 621.37 ml 806.50 ml Tube Feeding 660 ml 660 ml Output Urine Total 685 ml 860 ml Stool Total 150 ml Laboratory Tests 08/08/20 03:50: White Blood Count 14.0H, Red Blood Count 2.58L, Hemoglobin 7.3L, Hematocrit 23 .3L, Mean Corpuscular Volume 90, Mean Corpuscular Hemoglobin 28.3, Mean Corpuscular Hemoglobin Concent 31.3L, Red Cell Distribution Width 15.3H, Platelet Count 108L, Mean Platelet Volume 8.2, Neutrophils (%) (Auto) , Lymphocytes (%) (Auto) , Monocytes (%) (Auto) , Eosinophils (%) (Auto) , Basophils (%) (Auto) , Differential Total Cells Counted 100, Neutrophils % (Manual) 92H, Lymphocytes % (Manual) 6L, Monocytes % (Manual) 2, Eosinophils % (Manual) 0, Basophils % (Manual) 0, Band Neutrophils 0, Platelet Estimate DecreasedL, Platelet Morphology Normal, Polychromasia 1+, Hypochromasia 2+, Anisocytosis 1+, Sodium Level 147H, Potassium Level 4.6, Chloride Level 113H, Carbon Dioxide Level 29, Anion Gap 5, Blood Urea Nitrogen 35H, Creatinine 0.9, Estimat Glomerular Filtration Rate > 60, Glucose Level 230#H, Uric Acid 2.9, Calcium Level 8.1L, Phosphorus Level 2.6, Magnesium Level 1.9, Total Bilirubin 0.2, Aspartate Amino Transf (AST/SGOT) 79H, Alanine Aminotransferase (ALT/SGPT) 163H, Alkaline Phosphatase 113, C-Reactive Protein, Quantitative 1.6H, Pro-B-Type Natriuretic Peptide 3488H, Total Protein 4.4L, Albumin 1.4L, Globulin 3.0, Albumin/Globulin Ratio 0.5L Height (Feet): 5 Height (Inches): 3.00 Weight (Pounds): 162 General Appearance: no apparent distress EENT: normal ENT inspection Neck: supple Cardiovascular: normal rate Respiratory/Chest: decreased breath sounds Abdomen: normal bowel sounds, non tender, soft Extremities: non-tender Assessment/Plan Problem List: (1) Dysphagia ICD Codes: R13.10 - Dysphagia, unspecified SNOMED: 84801169, 865136456 (2) COVID-19 virus infection ICD Codes: U07.1 - COVID-19 SNOMED: 990787310 (3) HTN (hypertension) ICD Codes: I10 - Essential (primary) hypertension SNOMED: 24091858 (4) DMII (diabetes mellitus, type 2) ICD Codes: E11.9 - Type 2 diabetes mellitus without complications SNOMED: 35197878 Qualifiers: Qualified Codes: E11.69 - Type 2 diabetes mellitus with other specified complication Status: unchanged Assessment/Plan: coverage note for dr Malcolm intubated DM control fu pulm and cardiology recs NGTF rectal tube still on 100 %o2 DNR repeat labs prn blood transfusion poor prognosis Steffen De Luna MD Aug 08, 2020 13:18
--- NOTE | 2020-08-08 15:00 | NUR ---
NURSE NOTES: Spoke to pt's . Updated him on pt's current condition and answered all of his questions.
[2020-08-08] MEDS: [UNRECOGNIZED DRUG - OTHER] IV PRN ×2 (15:21→20:43)
[2020-08-08] MEDS: VERSED IV PRN ×2 (15:21→20:43)
--- NOTE | 2020-08-08 16:41 | NUR ---
NURSE NOTES: Pt fully cleaned and linens changed. Hair freshly washed and combed. Oral care done. O2sat 96% at this time. Pt appears comfortable, no respiratory distress noted at this time. Pt remains sedated RASS -2. Pt is Afebrile.
--- NOTE | 2020-08-08 17:29 | NUR ---
NURSE NOTES: Pt continues to have bloody oral secretion. Oral care done and ointment applied to pt's lips to prevent further cracking/bleeding.
[2020-08-08] MEDS: fentaNYL 2500mcg/NS 250ml 250 ML IV SCH (18:00)
--- NOTE | 2020-08-08 19:17 | NUR ---
NURSE HAND-OFF REPORT: Latest Vital Signs: Temperature 98.4 , Pulse 69 , B/P 115 /73 , Respiratory Rate 22 , O2 SAT 98 , Mechanical Ventilator, FiO2 100% . Vital Sign Comment: EKG Rhythm: Sinus Rhythm Rhythm change?: N MD Notified?: N - MD Response: Latest Plaza Fall Score: 50 Fall Risk: High Risk Safety Measures: Call light Within Reach, Bed Alarm Zone 3, Side Rails Side Rails x2, Bed position Low and Locked. Fall Precautions: Yellow Socks Yellow Gown Door Sign Patient Fall Education Report given to LIANA Islas.
--- NOTE | 2020-08-08 19:20 | NUR ---
NURSE NOTES: Received pt in bed, sedated ROSA -2, on fentanyl and versed drips via TLC on right groin, on vent via ETT not showing any signs of distress at present settings. Glucerna 1.2 running at 55cc/hr via OGT with no residuals noted. Nasal packing on right nostril noted. Minimal blleeding from mouth noted. Fernandez cath in place draining straw colored urine. VSS and pt is SR on the monitor
[2020-08-08] MEDS: Dyna-Hex 2% Top Sol 2oz TOPIC SCH (20:21)
--- NOTE | 2020-08-08 22:00 | NUR ---
NURSE NOTES: Pt remains stable with stable VS. FiO2 decreased to 90%. Pt satting 96-100%. Will continue to monitor pt.
[2020-08-09] VITALS (75 sets, daily range): BP systolic 87–160; BP diastolic 53–90
--- NOTE | 2020-08-09 | NUR ---
NURSE NOTES: Pt remains stable. VSS. acchucheck 165. Insulin given per sliding scale.
[2020-08-09] MEDS: [UNRECOGNIZED DRUG - OTHER] IV PRN (02:02)
[2020-08-09] MEDS: VERSED IV PRN (02:02)
[2020-08-09] MEDS: fentaNYL 2500mcg/NS 250ml 250 ML IV SCH (02:29)
[2020-08-09 05:06] LABS: HEMATOCRIT 26.7 % (37.0-47.0); HEMOGLOBIN 8.3 G/DL (12.0-16.0); MEAN CORPUSCULAR VOLUME 91 FL (80-99); PLATELET COUNT 119 K/UL (150-450); RED BLOOD COUNT 2.93 M/UL (4.20-5.40); RED CELL DISTRIBUTION WIDTH 16.3 % (11.6-14.8); WHITE BLOOD COUNT 16.9 K/UL (4.8-10.8)
[2020-08-09] MEDS: NovoLOG Insulin Flexpen SUBQ SCH ×3 (05:18→17:52)
[2020-08-09] MEDS: Solu-MEDROL 40mg Inj IVP SCH ×3 (05:18→17:52)
[2020-08-09 05:38] LABS: ALANINE AMINOTRANSFERASE 179 U/L (12-78); ALBUMIN 1.8 G/DL (3.4-5.0); ALBUMIN/GLOBULIN RATIO 0.5 (1.0-2.7); ALKALINE PHOSPHATASE 131 U/L (46-116); ANION GAP 6 mmol/L (5-15); ASPARTATE AMINO TRANSFERASE 68 U/L (15-37); BILIRUBIN,TOTAL 0.4 MG/DL (0.2-1.0); BLOOD UREA NITROGEN 36 mg/dL (7-18); CALCIUM 8.6 MG/DL (8.5-10.1); CARBON DIOXIDE 29 MMOL/L (21-32); CHLORIDE 111 MMOL/L (98-107); CREATININE 0.8 MG/DL (0.55-1.30); POTASSIUM 4.6 MMOL/L (3.5-5.1); SODIUM 146 MMOL/L (136-145)
--- NOTE | 2020-08-09 06:45 | NUR ---
NURSE NOTES: Spoke to Pharmacist Libia about incorrect order for versed which made it seem like i need to waste 20ml twice when i pulled out the medication. Said she will fic it.
--- NOTE | 2020-08-09 07:15 | NUR ---
NURSE HAND-OFF REPORT: Latest Vital Signs: Temperature 98.3 , Pulse 70 , B/P 126 /85 , Respiratory Rate 22 , O2 SAT 99 , Mechanical Ventilator, O2 Flow Rate . Vital Sign Comment: EKG Rhythm: Sinus Rhythm Rhythm change?: N MD Notified?: N - MD Response: Latest Plaza Fall Score: 50 Fall Risk: High Risk Safety Measures: Call light Within Reach, Bed Alarm Zone 3, Side Rails Side Rails x2, Bed position Low and Locked. Fall Precautions: Yellow Socks Yellow Gown Door Sign Patient Fall Education Report given to LIANA Cotton .
--- NOTE | 2020-08-09 07:20 | NUR ---
NURSE NOTES: Received pt from LIANA Islas. Pt intubated and sedated. No withdraw to pain. Pupils 3 and sluggish. Sedation reduced. ET tube 7.5 with 24cm at the lip. Oral bleeding noted. Large clot in mouth pulled out by RT. Will ensure MD aware. Pt tolerating vent setting with no s/s of resp distress. Spo2 98% on FiO2 100%. Right nostril plug noted. Will ask MD if this should be removed. No active bleeding of the nose noted at this time. Oral gastric tube noted. SR on the monitor and storage bin tender. BP WNL at this time on 1mcg/min of Levophed. Oral gastric tube noted. Pt tolerating tube feeding at goal. Residual 30mL at this time. Rectal tube in place. No out put noted. Fernandez in place. yellow urine noted. Sacral and right buttocks DTI noted. Bilateral arm bruises noted. left groin TLC noted. Dressing dry and intact. Pt weeping serous fluid at insertion site. Will change dressing today. Will continue to monitor.
[2020-08-09] MEDS: Versed 100mg/NS 200ml 200 ML IV PRN ×3 (07:37→19:30)
--- NOTE | 2020-08-09 08:07 | NUR ---
NURSE NOTES: Dr De Luna rounded on the pt. Update given. Notified him that pt tolerating tube feeding. No sign of GI bleed. Bleeding noted in mouth this AM. Large clot pulled out of pt mouth by RT elza. Notified Dr De Luna.
[2020-08-09] MEDS: Cefepime HCl 2 GM in D5W 55 ML IVPB SCH (08:24)
[2020-08-09] MEDS: Norepinephrine 4mg/NS Premix 250 ML IV SCH (08:26)
[2020-08-09] MEDS: Levemir Flexpen SUBQ SCH ×2 (08:31→21:00)
--- NOTE | 2020-08-09 10:39 | NUR ---
NURSE NOTES: TIO Howard for Dr Edward rounded on the pt. Update given. Notified him that pt FiO2 increased to 100% overnight due to low saturation. Pt now titrated to 80% fiO2. SpO2 92% at this time. notified Anita that pt still having oral bleeding with large clot removed this AM by RT. NO verbal orders received.
--- NOTE | 2020-08-09 11:43 | Infectious Diseases Prog Note ---
Assessment/Plan Assessment/Plan antibiotics : cefepime A 1. covid 19 pneumonia on 80 % Fio2 with 100 % saturation 2. pseudomonas pneumonia 3. respiratory failure 4. leucocytosis 5. diabetes mellitus P 1. d/c cefepime 2. observe off antibiotics 3. will follow up cultures Subjective ROS Limited/Unobtainable: Yes Allergies: Coded Allergies: No Known Allergies (Unverified , 07/07/20) Objective Last 24 Hour Vital Signs Date Time Temp Pulse Resp B/P (MAP) Pulse Ox O2 Delivery O2 Flow Rate FiO2 08/09/20 10:50 73 22 80 08/09/20 09:45 72 22 95/57 (70) 100 08/09/20 09:30 74 22 87/54 (65) 100 08/09/20 09:15 74 22 100/66 (77) 100 08/09/20 09:02 68 22 100 08/09/20 09:00 67 22 95/61 (72) 100 08/09/20 08:45 70 22 103/66 (78) 100 08/09/20 08:30 72 22 101/71 (81) 100 08/09/20 08:26 99/68 08/09/20 08:25 73 90/68 08/09/20 08:15 71 22 99/68 (78) 99 08/09/20 08:00 98.1 69 22 102/70 (81) 99 08/09/20 08:00 100 08/09/20 08:00 70 08/09/20 08:00 Mechanical Ventilator 08/09/20 07:45 67 21 109/71 (84) 99 08/09/20 07:37 22 126/85 Mechanical Ventilator 100 08/09/20 07:30 64 22 126/85 (99) 99 08/09/20 07:15 69 22 119/81 (94) 99 08/09/20 07:14 70 22 100 08/09/20 07:00 22 124/79 Mechanical Ventilator 100 08/09/20 07:00 69 22 124/79 (94) 99 08/09/20 06:00 68 22 123/82 (96) 99 08/09/20 06:00 22 123/82 Mechanical Ventilator 100 08/09/20 06:00 22 123/82 Mechanical Ventilator 100 08/09/20 05:00 22 116/75 Mechanical Ventilator 100 08/09/20 05:00 22 116/75 Mechanical Ventilator 100 08/09/20 05:00 71 22 116/75 (89) 100 08/09/20 04:00 98.3 98 28 155/90 (111) 66 08/09/20 04:00 28 155/90 Mechanical Ventilator 100 08/09/20 04:00 28 155/90 Mechanical Ventilator 100 08/09/20 04:00 Mechanical Ventilator 08/09/20 04:00 59 08/09/20 04:00 100 08/09/20 03:58 100 08/09/20 03:05 60 24 80 08/09/20 03:00 19 112/78 Mechanical Ventilator 90 08/09/20 03:00 19 112/78 Mechanical Ventilator 90 08/09/20 03:00 60 19 112/78 (89) 96 08/09/20 02:29 22 126/79 Mechanical Ventilator 90 08/09/20 02:02 21 115/66 Mechanical Ventilator 90 08/09/20 02:00 67 23 115/66 (82) 94 08/09/20 02:00 23 115/66 Mechanical Ventilator 90 08/09/20 02:00 23 115/66 Mechanical Ventilator 90 08/09/20 01:00 60 22 120/73 (89) 98 08/09/20 01:00 22 122/73 Mechanical Ventilator 90 08/09/20 01:00 22 120/73 Mechanical Ventilator 90 08/09/20 00:00 90 08/09/20 00:00 22 121/71 Mechanical Ventilator 90 08/09/20 00:00 22 121/71 Mechanical Ventilator 90 08/09/20 00:00 Mechanical Ventilator 08/09/20 00:00 98.3 61 22 121/71 (88) 98 08/09/20 00:00 60 08/08/20 23:10 73 22 90 08/08/20 23:00 70 22 114/71 (85) 99 08/08/20 23:00 22 114/71 Mechanical Ventilator 100 08/08/20 23:00 22 114/71 Mechanical Ventilator 100 08/08/20 22:00 62 22 117/77 (90) 99 08/08/20 22:00 21 132/79 Mechanical Ventilator 100 08/08/20 22:00 21 95/56 Mechanical Ventilator 100 08/08/20 21:00 80 22 146/79 (101) 96 08/08/20 21:00 28 132/79 Mechanical Ventilator 100 08/08/20 21:00 28 132/79 Mechanical Ventilator 100 08/08/20 20:43 23 111/70 Mechanical Ventilator 100 08/08/20 20:00 Mechanical Ventilator 08/08/20 20:00 97.9 73 21 110/70 (83) 95 08/08/20 20:00 21 110/70 Mechanical Ventilator 100 08/08/20 20:00 16 123/79 Mechanical Ventilator 100 08/08/20 20:00 100 08/08/20 20:00 71 08/08/20 19:10 69 27 100 08/08/20 19:00 22 115/73 Mechanical Ventilator 100 08/08/20 19:00 22 115/73 Mechanical Ventilator 100 08/08/20 19:00 69 23 115/73 (87) 98 08/08/20 18:00 66 20 111/78 (89) 100 08/08/20 18:00 22 116/81 Mechanical Ventilator 100 08/08/20 18:00 22 116/81 Mechanical Ventilator 100 08/08/20 17:00 22 120/74 Mechanical Ventilator 100 08/08/20 17:00 22 120/74 Mechanical Ventilator 100 08/08/20 17:00 67 23 120/74 (89) 97 08/08/20 16:30 66 23 119/71 (87) 94 08/08/20 16:00 100 08/08/20 16:00 98.4 67 22 118/73 (88) 95 08/08/20 16:00 22 118/73 Mechanical Ventilator 100 08/08/20 16:00 22 118/73 Mechanical Ventilator 100 08/08/20 16:00 72 08/08/20 16:00 Mechanical Ventilator 08/08/20 15:47 61 25 100 08/08/20 15:30 72 24 108/67 (81) 97 08/08/20 15:21 22 112/71 Mechanical Ventilator 100 08/08/20 15:00 72 22 114/77 (89) 100 08/08/20 15:00 22 114/77 Mechanical Ventilator 100 08/08/20 15:00 22 114/77 Mechanical Ventilator 100 08/08/20 14:30 74 22 119/81 (94) 100 08/08/20 14:00 76 22 124/74 (91) 100 08/08/20 14:00 22 120/72 Mechanical Ventilator 100 08/08/20 14:00 22 120/72 Mechanical Ventilator 100 08/08/20 14:00 22 120/72 Mechanical Ventilator 100 08/08/20 14:00 22 120/72 Mechanical Ventilator 100 08/08/20 14:00 22 120/72 Mechanical Ventilator 100 08/08/20 14:00 22 120/72 Mechanical Ventilator 100 08/08/20 14:00 22 120/72 Mechanical Ventilator 100 08/08/20 14:00 22 120/72 Mechanical Ventilator 100 08/08/20 13:00 22 127/83 Mechanical Ventilator 100 08/08/20 13:00 22 127/83 Mechanical Ventilator 100 08/08/20 13:00 22 127/83 Mechanical Ventilator 100 08/08/20 13:00 22 127/83 Mechanical Ventilator 100 08/08/20 13:00 22 127/83 Mechanical Ventilator 100 08/08/20 13:00 22 127/83 Mechanical Ventilator 100 08/08/20 13:00 22 127/83 Mechanical Ventilator 100 08/08/20 13:00 22 127/83 Mechanical Ventilator 100 08/08/20 13:00 75 22 106/72 (83) 100 08/08/20 12:00 100 08/08/20 12:00 75 08/08/20 12:00 22 111/74 Mechanical Ventilator 100 08/08/20 12:00 22 111/74 Mechanical Ventilator 100 08/08/20 12:00 22 111/74 Mechanical Ventilator 100 08/08/20 12:00 22 111/74 Mechanical Ventilator 100 08/08/20 12:00 22 111/74 Mechanical Ventilator 100 08/08/20 12:00 22 111/74 Mechanical Ventilator 100 08/08/20 12:00 22 111/74 Mechanical Ventilator 100 08/08/20 12:00 22 111/74 Mechanical Ventilator 100 08/08/20 12:00 Mechanical Ventilator 08/08/20 12:00 98.4 77 22 108/76 (87) 100 Height (Feet): 5 Height (Inches): 3.00 Weight (Pounds): 162 HEENT: other - intubated Respiratory/Chest: lungs clear Cardiovascular: normal rate, regular rhythm, no gallop/murmur Abdomen: soft, non tender Extremities: other - + edema bilaterally, right groin catheter Laboratory Tests Test 08/09/20 03:50 White Blood Count 16.9 K/UL (4.8-10.8) H Red Blood Count 2.93 M/UL (4.20-5.40) L Hemoglobin 8.3 G/DL (12.0-16.0) L Hematocrit 26.7 % (37.0-47.0) L Mean Corpuscular Volume 91 FL (80-99) Mean Corpuscular Hemoglobin 28.5 PG (27.0-31.0) Mean Corpuscular Hemoglobin Concent 31.3 G/DL (32.0-36.0) L Red Cell Distribution Width 16.3 % (11.6-14.8) H Platelet Count 119 K/UL (150-450) L Mean Platelet Volume 9.3 FL (6.5-10.1) Neutrophils (%) (Auto) % (45.0-75.0) Lymphocytes (%) (Auto) % (20.0-45.0) Monocytes (%) (Auto) % (1.0-10.0) Eosinophils (%) (Auto) % (0.0-3.0) Basophils (%) (Auto) % (0.0-2.0) Differential Total Cells Counted 100 Neutrophils % (Manual) 88 % (45-75) H Lymphocytes % (Manual) 7 % (20-45) L Monocytes % (Manual) 4 % (1-10) Eosinophils % (Manual) 1 % (0-3) Basophils % (Manual) 0 % (0-2) Band Neutrophils 0 % (0-8) Platelet Estimate Decreased L Platelet Morphology Normal Hypochromasia 1+ Anisocytosis 1+ Sodium Level 146 MMOL/L (136-145) H Potassium Level 4.6 MMOL/L (3.5-5.1) Chloride Level 111 MMOL/L (98-107) H Carbon Dioxide Level 29 MMOL/L (21-32) Anion Gap 6 mmol/L (5-15) Blood Urea Nitrogen 36 mg/dL (7-18) H Creatinine 0.8 MG/DL (0.55-1.30) Estimat Glomerular Filtration Rate > 60 mL/min (>60) Glucose Level 181 MG/DL (74-106) H Calcium Level 8.6 MG/DL (8.5-10.1) Total Bilirubin 0.4 MG/DL (0.2-1.0) Aspartate Amino Transf (AST/SGOT) 68 U/L (15-37) H Alanine Aminotransferase (ALT/SGPT) 179 U/L (12-78) H Alkaline Phosphatase 131 U/L (46-116) H Total Protein 5.3 G/DL (6.4-8.2) L Albumin 1.8 G/DL (3.4-5.0) L Globulin 3.5 g/dL Albumin/Globulin Ratio 0.5 (1.0-2.7) L Current Medications Medications (Trade) Dose Ordered Sig/Marian Route PRN Reason Start Time Stop Time Status Last Admin Dose Admin Acetaminophen (Tylenol) 650 mg Q4H PRN RECTAL Temp >100.5 07/18/20 18:30 08/17/20 18:29 08/01/20 16:50 Cefepime HCl 2 gm/ Dextrose 55 ml @ 110 mls/hr Q12HR IVPB 07/22/20 13:00 08/10/20 12:59 08/09/20 08:24 Chlorhexidine Gluconate (Rafaela-Hex 2%) 1 applic DAILY@2000 TOPIC 08/01/20 20:00 10/30/20 19:59 08/08/20 20:21 Dextrose (Dextrose 50%) 25 ml Q30M PRN IV Hypoglycemia 07/07/20 15:45 10/05/20 15:44 Dextrose (Dextrose 50%) 50 ml Q30M PRN IV Hypoglycemia 07/07/20 15:45 10/05/20 15:44 Famotidine (Pepcid I.v.) 20 mg Q12HR IVP 07/20/20 09:00 08/19/20 08:59 08/09/20 08:25 Fentanyl Citrate 250 ml @ 0 mls/hr Q24H PRN IV . 08/09/20 10:30 08/11/20 10:29 Insulin Aspart (NovoLOG) Q6HR SUBQ 07/26/20 12:00 10/24/20 11:59 08/09/20 05:18 Insulin Detemir (Levemir) 30 units Q12HR SUBQ 08/01/20 21:00 10/24/20 10:29 08/09/20 08:31 Methylprednisolone Sodium Succinate (Solu-MEDROL) 20 mg EVERY 6 HOURS IVP 07/22/20 12:00 10/19/20 08:59 08/09/20 05:18 Metoprolol Tartrate (Lopressor) 25 mg EVERY 12 HOURS NG 07/26/20 21:00 10/24/20 20:59 08/04/20 20:45 Midazolam HCl 200 ml @ 0 mls/hr Q24H PRN IV To Patient Comfort 08/09/20 06:45 08/10/20 15:14 08/09/20 07:37 Norepinephrine Bitartrate 250 ml @ 0 mls/hr Q24H IV 08/08/20 09:30 08/11/20 09:21 08/08/20 09:57 Sorbitol (sorbitoL) 45 ml Q12HR PRN ORAL Constipation 07/30/20 09:15 08/29/20 09:14 Lynne Gonzalez MD Aug 09, 2020 11:43
[2020-08-09] MEDS: fentaNYL 2500mcg/NS 250ml 250 ML IV PRN ×2 (11:59→20:54)
--- NOTE | 2020-08-09 12:00 | NUR ---
NURSE NOTES: Pt remains intubated and sedated. No withdraw to pain. Pupils 3 and sluggish. Pt agitated/restless/SpO2 dropping. Sedation increased to max. FiO2 increased to 100%. SpO2 improving. ET tube 7.5 with 24cm at the lip. Oral bleeding noted. Right nostril plug remains in place. Will ask MD if this should be removed. No active bleeding of the nose noted at this time. Oral gastric tube noted. SR on the compliance monitor. BP WNL at this time. Levophed off. Oral gastric tube remains in place. Pt tolerating tube feeding at goal. Rectal tube in place. No out put noted. Fernandez in place. yellow urine noted. Will continue to monitor.
--- NOTE | 2020-08-09 12:28 | Pulmonology Progress Note ---
Subjective ROS Limited/Unobtainable: Yes Interval Events: S/p intubation Constitutional: Denies: fever HEENT: Repors: no symptoms Respiratory: Reports: shortness of breath Gastrointestinal/Abdominal: Reports: no symptoms Psychiatric: Reports: no symptoms Skin: Reports: no symptoms Musculoskeletal: Reports: no symptoms Allergies: Coded Allergies: No Known Allergies (Unverified , 07/07/20) Objective Last 24 Hour Vital Signs Date Time Temp Pulse Resp B/P (MAP) Pulse Ox O2 Delivery O2 Flow Rate FiO2 08/09/20 12:00 90 22 134/71 (92) 93 08/09/20 12:00 100 08/09/20 12:00 90 08/09/20 11:59 27 160/78 Mechanical Ventilator 100 08/09/20 11:00 92 22 109/72 (84) 93 08/09/20 10:50 73 22 80 08/09/20 09:45 72 22 95/57 (70) 100 08/09/20 09:30 74 22 87/54 (65) 100 08/09/20 09:15 74 22 100/66 (77) 100 08/09/20 09:02 68 22 100 08/09/20 09:00 67 22 95/61 (72) 100 08/09/20 08:45 70 22 103/66 (78) 100 08/09/20 08:30 72 22 101/71 (81) 100 08/09/20 08:26 99/68 08/09/20 08:25 73 90/68 08/09/20 08:15 71 22 99/68 (78) 99 08/09/20 08:00 98.1 69 22 102/70 (81) 99 08/09/20 08:00 100 08/09/20 08:00 70 08/09/20 08:00 Mechanical Ventilator 08/09/20 07:45 67 21 109/71 (84) 99 08/09/20 07:37 22 126/85 Mechanical Ventilator 100 08/09/20 07:30 64 22 126/85 (99) 99 08/09/20 07:15 69 22 119/81 (94) 99 08/09/20 07:14 70 22 100 08/09/20 07:00 22 124/79 Mechanical Ventilator 100 08/09/20 07:00 69 22 124/79 (94) 99 08/09/20 06:00 68 22 123/82 (96) 99 08/09/20 06:00 22 123/82 Mechanical Ventilator 100 08/09/20 06:00 22 123/82 Mechanical Ventilator 100 08/09/20 05:00 22 116/75 Mechanical Ventilator 100 08/09/20 05:00 22 116/75 Mechanical Ventilator 100 08/09/20 05:00 71 22 116/75 (89) 100 08/09/20 04:00 98.3 98 28 155/90 (111) 66 08/09/20 04:00 28 155/90 Mechanical Ventilator 100 08/09/20 04:00 28 155/90 Mechanical Ventilator 100 08/09/20 04:00 Mechanical Ventilator 08/09/20 04:00 59 08/09/20 04:00 100 08/09/20 03:58 100 08/09/20 03:05 60 24 80 08/09/20 03:00 19 112/78 Mechanical Ventilator 90 08/09/20 03:00 19 112/78 Mechanical Ventilator 90 08/09/20 03:00 60 19 112/78 (89) 96 08/09/20 02:29 22 126/79 Mechanical Ventilator 90 08/09/20 02:02 21 115/66 Mechanical Ventilator 90 08/09/20 02:00 67 23 115/66 (82) 94 08/09/20 02:00 23 115/66 Mechanical Ventilator 90 08/09/20 02:00 23 115/66 Mechanical Ventilator 90 08/09/20 01:00 60 22 120/73 (89) 98 08/09/20 01:00 22 122/73 Mechanical Ventilator 90 08/09/20 01:00 22 120/73 Mechanical Ventilator 90 08/09/20 00:00 90 08/09/20 00:00 22 121/71 Mechanical Ventilator 90 08/09/20 00:00 22 121/71 Mechanical Ventilator 90 08/09/20 00:00 Mechanical Ventilator 08/09/20 00:00 98.3 61 22 121/71 (88) 98 08/09/20 00:00 60 08/08/20 23:10 73 22 90 08/08/20 23:00 70 22 114/71 (85) 99 08/08/20 23:00 22 114/71 Mechanical Ventilator 100 08/08/20 23:00 22 114/71 Mechanical Ventilator 100 08/08/20 22:00 62 22 117/77 (90) 99 08/08/20 22:00 21 132/79 Mechanical Ventilator 100 08/08/20 22:00 21 95/56 Mechanical Ventilator 100 08/08/20 21:00 80 22 146/79 (101) 96 08/08/20 21:00 28 132/79 Mechanical Ventilator 100 08/08/20 21:00 28 132/79 Mechanical Ventilator 100 08/08/20 20:43 23 111/70 Mechanical Ventilator 100 08/08/20 20:00 Mechanical Ventilator 08/08/20 20:00 97.9 73 21 110/70 (83) 95 08/08/20 20:00 21 110/70 Mechanical Ventilator 100 08/08/20 20:00 16 123/79 Mechanical Ventilator 100 08/08/20 20:00 100 08/08/20 20:00 71 08/08/20 19:10 69 27 100 08/08/20 19:00 22 115/73 Mechanical Ventilator 100 08/08/20 19:00 22 115/73 Mechanical Ventilator 100 08/08/20 19:00 69 23 115/73 (87) 98 08/08/20 18:00 66 20 111/78 (89) 100 08/08/20 18:00 22 116/81 Mechanical Ventilator 100 08/08/20 18:00 22 116/81 Mechanical Ventilator 100 08/08/20 17:00 22 120/74 Mechanical Ventilator 100 08/08/20 17:00 22 120/74 Mechanical Ventilator 100 08/08/20 17:00 67 23 120/74 (89) 97 08/08/20 16:30 66 23 119/71 (87) 94 08/08/20 16:00 100 08/08/20 16:00 98.4 67 22 118/73 (88) 95 08/08/20 16:00 22 118/73 Mechanical Ventilator 100 08/08/20 16:00 22 118/73 Mechanical Ventilator 100 08/08/20 16:00 72 08/08/20 16:00 Mechanical Ventilator 08/08/20 15:47 61 25 100 08/08/20 15:30 72 24 108/67 (81) 97 08/08/20 15:21 22 112/71 Mechanical Ventilator 100 08/08/20 15:00 72 22 114/77 (89) 100 08/08/20 15:00 22 114/77 Mechanical Ventilator 100 08/08/20 15:00 22 114/77 Mechanical Ventilator 100 08/08/20 14:30 74 22 119/81 (94) 100 08/08/20 14:00 76 22 124/74 (91) 100 08/08/20 14:00 22 120/72 Mechanical Ventilator 100 08/08/20 14:00 22 120/72 Mechanical Ventilator 100 08/08/20 14:00 22 120/72 Mechanical Ventilator 100 08/08/20 14:00 22 120/72 Mechanical Ventilator 100 08/08/20 14:00 22 120/72 Mechanical Ventilator 100 08/08/20 14:00 22 120/72 Mechanical Ventilator 100 08/08/20 14:00 22 120/72 Mechanical Ventilator 100 08/08/20 14:00 22 120/72 Mechanical Ventilator 100 08/08/20 13:00 22 127/83 Mechanical Ventilator 100 08/08/20 13:00 22 127/83 Mechanical Ventilator 100 08/08/20 13:00 22 127/83 Mechanical Ventilator 100 08/08/20 13:00 22 127/83 Mechanical Ventilator 100 08/08/20 13:00 22 127/83 Mechanical Ventilator 100 08/08/20 13:00 22 127/83 Mechanical Ventilator 100 08/08/20 13:00 22 127/83 Mechanical Ventilator 100 08/08/20 13:00 22 127/83 Mechanical Ventilator 100 08/08/20 13:00 75 22 106/72 (83) 100 Intake and Output 08/08/20 08/09/20 19:00 07:00 Intake Total 1594.04 ml 1521.583 ml Output Total 495 ml 685 ml Balance 1099.04 ml 836.583 ml Free Water 100 ml IV Total 834.04 ml 861.583 ml Tube Feeding 660 ml 660 ml Output Urine Total 495 ml 685 ml General Appearance: no acute distress HEENT: normocephalic Respiratory: decreased breath sounds Cardiovascular: normal peripheral pulses Abdomen: normal bowel sounds Laboratory Tests 08/09/20 03:50: White Blood Count 16.9H, Red Blood Count 2.93L, Hemoglobin 8.3L, Hematocrit 26.7L, Mean Corpuscular Volume 91, Mean Corpuscular Hemoglobin 28.5, Mean Corpuscular Hemoglobin Concent 31.3L, Red Cell Distribution Width 16.3H, Platelet Count 119L, Mean Platelet Volume 9.3, Neutrophils (%) (Auto) , Lym phocytes (%) (Auto) , Monocytes (%) (Auto) , Eosinophils (%) (Auto) , Basophils (%) (Auto) , Differential Total Cells Counted 100, Neutrophils % (Manual) 88H, Lymphocytes % (Manual) 7L, Monocytes % (Manual) 4, Eosinophils % (Manual) 1, Basophils % (Manual) 0, Band Neutrophils 0, Platelet Estimate DecreasedL, Platelet Morphology Normal, Hypochromasia 1+, Anisocytosis 1+, Sodium Level 146H , Potassium Level 4.6, Chloride Level 111H, Carbon Dioxide Level 29, Anion Gap 6, Blood Urea Nitrogen 36H, Creatinine 0.8, Estimat Glomerular Filtration Rate > 60, Glucose Level 181H, Calcium Level 8.6, Total Bilirubin 0.4, Aspartate Amino Transf (AST/SGOT) 68H, Alanine Aminotransferase (ALT/SGPT) 179H, Alkaline Phosphatase 131H, Total Protein 5.3L, Albumin 1.8L, Globulin 3.5, Albumin/Globulin Ratio 0.5L Current Medications Medications (Trade) Dose Ordered Sig/Marian Route PRN Reason Start Time Stop Time Status Last Admin Dose Admin Acetaminophen (Tylenol) 650 mg Q4H PRN RECTAL Temp >100.5 07/18/20 18:30 08/17/20 18:29 08/01/20 16:50 Chlorhexidine Gluconate (Rafaela-Hex 2%) 1 applic DAILY@2000 TOPIC 08/01/20 20:00 10/30/20 19:59 08/08/20 20:21 Dextrose (Dextrose 50%) 25 ml Q30M PRN IV Hypoglycemia 07/07/20 15:45 10/05/20 15:44 Dextrose (Dextrose 50%) 50 ml Q30M PRN IV Hypoglycemia 07/07/20 15:45 10/05/20 15:44 Famotidine (Pepcid I.v.) 20 mg Q12HR IVP 07/20/20 09:00 08/19/20 08:59 08/09/20 08:25 Fentanyl Citrate 250 ml @ 0 mls/hr Q24H PRN IV . 08/09/20 10:30 08/11/20 10:29 08/09/20 11:59 Insulin Aspart (NovoLOG) Q6HR SUBQ 07/26/20 12:00 10/24/20 11:59 08/09/20 12:10 Insulin Detemir (Levemir) 30 units Q12HR SUBQ 08/01/20 21:00 10/24/20 10:29 08/09/20 08:31 Methylprednisolone Sodium Succinate (Solu-MEDROL) 20 mg EVERY 6 HOURS IVP 07/22/20 12:00 10/19/20 08:59 08/09/20 12:09 Metoprolol Tartrate (Lopressor) 25 mg EVERY 12 HOURS NG 07/26/20 21:00 10/24/20 20:59 08/04/20 20:45 Midazolam HCl 200 ml @ 0 mls/hr Q24H PRN IV To Patient Comfort 08/09/20 06:45 08/10/20 15:14 08/09/20 07:37 Norepinephrine Bitartrate 250 ml @ 0 mls/hr Q24H IV 08/08/20 09:30 08/11/20 09:21 08/08/20 09:57 Sorbitol (sorbitoL) 45 ml Q12HR PRN ORAL Constipation 07/30/20 09:15 08/29/20 09:14 Assessment/Plan Assessment/Plan 1. COVID-19 pneumonia. - COVID-19 PCR positive (07/07) - s/p remdexsivir, azithromycin - CXR (07/13) no significant change - f/u rapid COVID-19 (07/31) negative -> now off isolation 2. Hypoxemic respiratory distress - s/p decadron (07/08-07/17) - now on Solu-Medrol - intubated; on AC mode - FiO2 100 -> 80-> 100-> 80%; continue PEEP 7->8 -> 10-> 8 ->12 - episodically desaturates to 70% 3. Hypertension. - Required central line 08/01/20 -on Levophed 4. Diabetes mellitus. -on insulin sliding scale 5. DVT ppx - on Lovenox, full dose empirically; on hold now due to epistaxis - SCD in place 6. Sputum Cx shows pseudomonas and cony - continue cefepime per ID 7. Suspect bacterial infection given leukocytosis - s/p Diflucan, Cefepime, IV Vanco - s/p IV Bactrim for possible PJP 8. Pulmonary edema -Off lasix gtt Discussed with bedside RN. No further epistaxis and oral bleeding Hold Lovenox Will give FFP Transfuse prn On Levemir DW family, family discussing possible extubation and comfort care Now DNR The care of this patient was discussed with my supervising physician Time spent for this encounter was approximately 31 minutes Milton Howard Aug 09, 2020 12:28
--- NOTE | 2020-08-09 13:54 | Nephrology Progress Note ---
Assessment/Plan Problem List: (1) Hyponatremia (2) Hypoxia (3) Pneumonitis (4) Acute respiratory failure due to COVID-19 (5) DMII (diabetes mellitus, type 2) (6) HTN (hypertension) Assessment Hyponatremia, improved with saline infusion COVID-19 infection Pneumonia, acute respiratory failure, hypoxia Diabetes mellitus Hypertension Plan August 09: Labs reviewed. Renal parameters stable. Pulmonary status unchanged. Remains 100% FiO2. Patient DNR. Continue current support. August 08: Labs reviewed. Renal parameters stable. Discussed with LIANA Malik. Patient remains on 100% FiO2. Status was changed to DNR. Prognosis dismal. Continue current support. August 07: Labs reviewed. Renal parameters stable. Discussed with LIANA Malik. Pulmonary status remains precarious. On low-dose pressors now. Continue per co nsultants. Continue to monitor renal parameters and electrolytes. August 06: Labs reviewed. Renal parameters stable. Discussed with RN. Pulmonary status deteriorated. Blood pressure borderline. On FiO2 100%. Continue per pulmonary. May need pressors for BP support. Defer to residency director. August 05: Labs reviewed. Renal parameters stable. Remains intubated on ventilator and full code. Continue per consultants. August 04: Labs reviewed. Renal parameters stable. Medication list reviewed. Continue per consultants. August 03: Labs reviewed. Discussed with RN. Patient n.p.o. at this time. Will start IV until feeding resumes. Continue to monitor electrolytes and renal parameters. Medication list reviewed. Continue per consultants. August 02: Labs reviewed. Serum sodium drifting down. Serum potassium remains higher than normal though improved since yesterday. Kayexalate via NG tube given and 250 cc 3% saline IV given continue to monitor renal parameters and electrolytes. August 01: Today's labs reviewed. Discussed with RN. Kayexalate for high potassium given. Hemoglobin lower. Defer transfusion to oil well pumper. Continue to monitor electrolytes and renal parameters. July 31: No CHEM panel drawn today. Remains full code. Intubated on ventilator. FiO2 85% now. Will check lab tomorrow. Continue to monitor renal parameters. July 30: Labs reviewed. Renal parameters stable. Continue per consultants. Intubated on ventilator with FiO2 of 100%. Full code. Not much to add from renal standpoint of view at this time. July 29 labs reviewed. Serum potassium elevated. Potassium supplement was put on hold on 1 dose of Kayexalate given. Levemir dose increased. Continue to monitor renal parameters. Patient remains on 100% FiO2 on ventilator. July 28: Labs reviewed. Renal parameters stable. Remains full code. Blood sugar remains high. Levemir dose increased. Not much to add from renal standpoint of view. FiO2 now is 100%. July 27: Labs reviewed. Renal parameters stable. Low potassium addressed. FiO2 70%. Blood sugar elevated. Levemir dose is being adjusted. Continue per consultants. July 26: Labs reviewed. Renal parameters stable. Patient now intubated on ventilator in ICU. Blood sugar elevated. Levemir added. Will watch el ectrolytes. Main management per residency director and ID. July 25: Labs reviewed. Renal parameters stable. Continue per consultants. July 24: Labs reviewed. Renal parameters stable. Continue per pulmonary. Medication list reviewed. July 23: No labs drawn today. Medication list reviewed. Continue per interior design consultant. Patient full code. July 22: Labs reviewed. Stable renal parameters. Continue per consultants. July 21: No CHEM panel drawn today. Stable from renal standpoint of view. Blood pressure stable. July 20: IV changed to D5W 50 cc an hour. Renal parameters stable. Continue per consultants. July 19: Pulmonary status remains unstable. Stable from renal standpoint of view. July 18: Labs reviewed. Stable renal parameters and electrolytes. Continue per consultants. July 17: No labs drawn today. Remains stable from renal standpoint today. July 16: No labs drawn today. Continue per consultants. Stable from renal standpoint of view. July 15: Labs reviewed. Renal parameters stable. July 14: No labs from today. Continue per current management. Check labs tomorrow. July 13: No labs drawn today. Stable from renal standpoint of view. July 12: Today's labs pending. Medication list reviewed. Continue per current management and consultants. July 11: Labs reviewed. Renal parameters stable. July 10: Labs reviewed. Renal parameters electrolytes stable. Continue per consultants. July 09: Labs reviewed. Renal parameters and electrolytes stable. Continue per ID and pulmonary. Subjective ROS Limited/Unobtainable: Yes Objective Objective Last 24 Hour Vital Signs Date Time Temp Pulse Resp B/P (MAP) Pulse Ox O2 Delivery O2 Flow Rate FiO2 08/09/20 13:00 77 24 96/61 (73) 99 08/09/20 12:28 121 22 100 08/09/20 12:00 90 22 134/71 (92) 93 08/09/20 12:00 100 08/09/20 12:00 90 08/09/20 12:00 Mechanical Ventilator 08/09/20 11:59 27 160/78 Mechanical Ventilator 100 08/09/20 11:00 92 22 109/72 (84) 93 08/09/20 10:50 73 22 80 08/09/20 09:45 72 22 95/57 (70) 100 08/09/20 09:30 74 22 87/54 (65) 100 08/09/20 09:15 74 22 100/66 (77) 100 08/09/20 09:02 68 22 100 08/09/20 09:00 67 22 95/61 (72) 100 08/09/20 08:45 70 22 103/66 (78) 100 08/09/20 08:30 72 22 101/71 (81) 100 08/09/20 08:26 99/68 08/09/20 08:25 73 90/68 08/09/20 08:15 71 22 99/68 (78) 99 08/09/20 08:00 98.1 69 22 102/70 (81) 99 08/09/20 08:00 100 08/09/20 08:00 70 08/09/20 08:00 Mechanical Ventilator 08/09/20 07:45 67 21 109/71 (84) 99 08/09/20 07:37 22 126/85 Mechanical Ventilator 100 08/09/20 07:30 64 22 126/85 (99) 99 08/09/20 07:15 69 22 119/81 (94) 99 08/09/20 07:14 70 22 100 08/09/20 07:00 22 124/79 Mechanical Ventilator 100 08/09/20 07:00 69 22 124/79 (94) 99 08/09/20 06:00 68 22 123/82 (96) 99 08/09/20 06:00 22 123/82 Mechanical Ventilator 100 08/09/20 06:00 22 123/82 Mechanical Ventilator 100 08/09/20 05:00 22 116/75 Mechanical Ventilator 100 08/09/20 05:00 22 116/75 Mechanical Ventilator 100 08/09/20 05:00 71 22 116/75 (89) 100 08/09/20 04:00 98.3 98 28 155/90 (111) 66 08/09/20 04:00 28 155/90 Mechanical Ventilator 100 08/09/20 04:00 28 155/90 Mechanical Ventilator 100 08/09/20 04:00 Mechanical Ventilator 08/09/20 04:00 59 08/09/20 04:00 100 08/09/20 03:58 100 08/09/20 03:05 60 24 80 08/09/20 03:00 19 112/78 Mechanical Ventilator 90 08/09/20 03:00 19 112/78 Mechanical Ventilator 90 08/09/20 03:00 60 19 112/78 (89) 96 08/09/20 02:29 22 126/79 Mechanical Ventilator 90 08/09/20 02:02 21 115/66 Mechanical Ventilator 90 08/09/20 02:00 67 23 115/66 (82) 94 08/09/20 02:00 23 115/66 Mechanical Ventilator 90 08/09/20 02:00 23 115/66 Mechanical Ventilator 90 08/09/20 01:00 60 22 120/73 (89) 98 08/09/20 01:00 22 122/73 Mechanical Ventilator 90 08/09/20 01:00 22 120/73 Mechanical Ventilator 90 08/09/20 00:00 90 08/09/20 00:00 22 121/71 Mechanical Ventilator 90 08/09/20 00:00 22 121/71 Mechanical Ventilator 90 08/09/20 00:00 Mechanical Ventilator 08/09/20 00:00 98.3 61 22 121/71 (88) 98 08/09/20 00:00 60 08/08/20 23:10 73 22 90 08/08/20 23:00 70 22 114/71 (85) 99 08/08/20 23:00 22 114/71 Mechanical Ventilator 100 08/08/20 23:00 22 114/71 Mechanical Ventilator 100 08/08/20 22:00 62 22 117/77 (90) 99 08/08/20 22:00 21 132/79 Mechanical Ventilator 100 08/08/20 22:00 21 95/56 Mechanical Ventilator 100 08/08/20 21:00 80 22 146/79 (101) 96 08/08/20 21:00 28 132/79 Mechanical Ventilator 100 08/08/20 21:00 28 132/79 Mechanical Ventilator 100 08/08/20 20:43 23 111/70 Mechanical Ventilator 100 08/08/20 20:00 Mechanical Ventilator 08/08/20 20:00 97.9 73 21 110/70 (83) 95 08/08/20 20:00 21 110/70 Mechanical Ventilator 100 08/08/20 20:00 16 123/79 Mechanical Ventilator 100 08/08/20 20:00 100 08/08/20 20:00 71 08/08/20 19:10 69 27 100 08/08/20 19:00 22 115/73 Mechanical Ventilator 100 08/08/20 19:00 22 115/73 Mechanical Ventilator 100 08/08/20 19:00 69 23 115/73 (87) 98 08/08/20 18:00 66 20 111/78 (89) 100 08/08/20 18:00 22 116/81 Mechanical Ventilator 100 08/08/20 18:00 22 116/81 Mechanical Ventilator 100 08/08/20 17:00 22 120/74 Mechanical Ventilator 100 08/08/20 17:00 22 120/74 Mechanical Ventilator 100 08/08/20 17:00 67 23 120/74 (89) 97 08/08/20 16:30 66 23 119/71 (87) 94 08/08/20 16:00 100 08/08/20 16:00 98.4 67 22 118/73 (88) 95 08/08/20 16:00 22 118/73 Mechanical Ventilator 100 08/08/20 16:00 22 118/73 Mechanical Ventilator 100 08/08/20 16:00 72 08/08/20 16:00 Mechanical Ventilator 08/08/20 15:47 61 25 100 08/08/20 15:30 72 24 108/67 (81) 97 08/08/20 15:21 22 112/71 Mechanical Ventilator 100 08/08/20 15:00 72 22 114/77 (89) 100 08/08/20 15:00 22 114/77 Mechanical Ventilator 100 08/08/20 15:00 22 114/77 Mechanical Ventilator 100 08/08/20 14:30 74 22 119/81 (94) 100 08/08/20 14:00 76 22 124/74 (91) 100 08/08/20 14:00 22 120/72 Mechanical Ventilator 100 08/08/20 14:00 22 120/72 Mechanical Ventilator 100 08/08/20 14:00 22 120/72 Mechanical Ventilator 100 08/08/20 14:00 22 120/72 Mechanical Ventilator 100 08/08/20 14:00 22 120/72 Mechanical Ventilator 100 08/08/20 14:00 22 120/72 Mechanical Ventilator 100 08/08/20 14:00 22 120/72 Mechanical Ventilator 100 08/08/20 14:00 22 120/72 Mechanical Ventilator 100 Intake and Output 08/08/20 08/09/20 19:00 07:00 Intake Total 1594.04 ml 1521.583 ml Output Total 495 ml 685 ml Balance 1099.04 ml 836.583 ml Free Water 100 ml IV Total 834.04 ml 861.583 ml Tube Feeding 660 ml 660 ml Output Urine Total 495 ml 685 ml Current Medications Medications (Trade) Dose Ordered Sig/Marian Route PRN Reason Start Time Stop Time Status Last Admin Dose Admin Acetaminophen (Tylenol) 650 mg Q4H PRN RECTAL Temp >100.5 07/18/20 18:30 08/17/20 18:29 08/01/20 16:50 Chlorhexidine Gluconate (Rafaela-Hex 2%) 1 applic DAILY@2000 TOPIC 08/01/20 20:00 10/30/20 19:59 08/08/20 20:21 Dextrose (Dextrose 50%) 25 ml Q30M PRN IV Hypoglycemia 07/07/20 15:45 10/05/20 15:44 Dextrose (Dextrose 50%) 50 ml Q30M PRN IV Hypoglycemia 07/07/20 15:45 10/05/20 15:44 Famotidine (Pepcid I.v.) 20 mg Q12HR IVP 07/20/20 09:00 08/19/20 08:59 08/09/20 08:25 Fentanyl Citrate 250 ml @ 0 mls/hr Q24H PRN IV . 08/09/20 10:30 08/11/20 10:29 08/09/20 11:59 Insulin Aspart (NovoLOG) Q6HR SUBQ 07/26/20 12:00 10/24/20 11:59 08/09/20 12:10 Insulin Detemir (Levemir) 30 units Q12HR SUBQ 08/01/20 21:00 10/24/20 10:29 08/09/20 08:31 Methylprednisolone Sodium Succinate (Solu-MEDROL) 20 mg EVERY 6 HOURS IVP 07/22/20 12:00 10/19/20 08:59 08/09/20 12:09 Metoprolol Tartrate (Lopressor) 25 mg EVERY 12 HOURS NG 07/26/20 21:00 10/24/20 20:59 08/04/20 20:45 Midazolam HCl 200 ml @ 0 mls/hr Q24H PRN IV To Patient Comfort 08/09/20 06:45 08/10/20 15:14 08/09/20 07:37 Norepinephrine Bitartrate 250 ml @ 0 mls/hr Q24H IV 08/08/20 09:30 08/11/20 09:21 08/08/20 09:57 Sorbitol (sorbitoL) 45 ml Q12HR PRN ORAL Constipation 07/30/20 09:15 08/29/20 09:14 Laboratory Tests 08/09/20 03:50: White Blood Count 16.9H, Red Blood Count 2.93L, Hemoglobin 8.3L, Hematocrit 26.7L, Mean Corpuscular Volume 91, Mean Corpuscular Hemoglobin 28.5, Mean Corpuscular Hemoglobin Concent 31.3L, Red Cell Distribution Width 16.3H, Platelet Count 119L, Mean Platelet Volume 9.3, Neutrophils (%) (Auto) , Lymphocytes (%) (Auto) , Monocytes (%) (Auto) , Eosinophils (%) (Auto) , Basophils (%) (Auto) , Differential Total Cells Counted 100, Neutrophils % (Manual) 88H, Lymphocytes % (Manual) 7L, Monocytes % (Manual) 4, Eosinophils % (Manual) 1, Basophils % (Manual) 0, Band Neutrophils 0, Platelet Estimate Decre asedL, Platelet Morphology Normal, Hypochromasia 1+, Anisocytosis 1+, Sodium Level 146H, Potassium Level 4.6, Chloride Level 111H, Carbon Dioxide Level 29, Anion Gap 6, Blood Urea Nitrogen 36H, Creatinine 0.8, Estimat Glomerular Filtration Rate > 60, Glucose Level 181H, Calcium Level 8.6, Total Bilirubin 0.4, Aspartate Amino Transf (AST/SGOT) 68H, Alanine Aminotransferase (ALT/SGPT) 179H, Alkaline Phosphatase 131H, Total Protein 5.3L, Albumin 1.8L, Globulin 3.5, Albumin/Globulin Ratio 0.5L Height (Feet): 5 Height (Inches): 3.00 Weight (Pounds): 162 General Appearance: no apparent distress Cardiovascular: normal rate Respiratory/Chest: decreased breath sounds Abdomen: distended Objective No change Anurag Bridges MD Aug 09, 2020 13:54
--- NOTE | 2020-08-09 16:00 | NUR ---
NURSE NOTES: Pt remains intubated and sedated. No withdraw to pain. Pupils 3 and sluggish. FiO2 increased to 100%, SpO2 100%. ET tube 7.5 with 24cm at the lip. Oral bleeding noted. Right nostril plug remains in place. Will ask MD if this should be removed. No active bleeding of the nose noted at this time. SR on the cardiac cath rn. BP WNL at this time. Levophed off. Oral gastric tube remains in place. Pt tolerating tube feeding at goal. Rectal tube in place. No output noted. Fernandez in place. yellow urine noted. Will continue to monitor.
--- NOTE | 2020-08-09 18:36 | NUR ---
NURSE NOTES: BP remains stable without levophed. Levophed remains off. Bed bath done at 1715. Rectal tube flushed. small amount of pasty brown stool noted in tube. Pt tolerating ventilator setting with no sign of distress. Pt remains on FiO2 100% with SpO2 100%. Will continue to monitor.
--- NOTE | 2020-08-09 19:30 | NUR ---
Received report from LIANA Cotton and assumed care of patient.
--- NOTE | 2020-08-09 19:30 | NUR ---
NURSE HAND-OFF REPORT: Latest Vital Signs: Temperature 98.5 , Pulse 68 , B/P 104 /70 , Respiratory Rate 20 , O2 SAT 100 , Mechanical Ventilator, O2 Flow Rate . Vital Sign Comment: EKG Rhythm: Sinus Rhythm Rhythm change?: N MD Notified?: N - MD Response: Latest Plaza Fall Score: 50 Fall Risk: High Risk Safety Measures: Call light Within Reach, Bed Alarm Zone 3, Side Rails Side Rails x2, Bed position Low and Locked. Fall Precautions: Yellow Socks Yellow Gown Door Sign Patient Fall Education Report given to LIANA Echeverria.
[2020-08-09] MEDS: Dyna-Hex 2% Top Sol 2oz TOPIC SCH (20:29)
--- NOTE | 2020-08-09 20:40 | NUR ---
Assessment complete. Patient remains sedated and stable at this time. VS are stable, patient maintaining BP off of Levophed gtt. Pt afebrile. TF infusing at goal with little residual. Pt continues to have significant dependent edema and slight weeping from inner thighs where blisters popped, see charting for further details. Medications administered per eMAR. Oral care provided, pt remains to have bloody oral secretions. Ointment applied to lips and tongue to prevent further breakdown. Repositioned. Will continue to monitor.
--- NOTE | 2020-08-09 21:25 | Cardiology Progress Note ---
Assessment/Plan Assessment/Plan 1. COVID-19 viral PNA s/p remdesivir and dexamethasone WBCs elevated 2. Respiratory failure 2/2 acute PNA Intubated 07/25/20 3. HFpEF acute on chronic diastolic HF with preserved EF EF 65%, per repeat echo post intubation Lasix for diuresis as needed 4. 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 Sinus tachycardia 2/2 fever and infection 7. Hypotension 2/2 shock, Levophed as needed Hypotensive with worsening infiltrative disease, pressors off and on, still vent dependent. Levophed per critical care team, wean off as tolerated. Repeat echo shows no change. Lasix as needed per pulmonlogy recs. Subjective Subjective Hypotensive requiring pressors. CXR shows worsening infiltrates. Intubated and on vent, in sinus rhythm. Seen in ICU Objective Last 24 Hour Vital Signs Date Time Temp Pulse Resp B/P (MAP) Pulse Ox O2 Delivery O2 Flow Rate FiO2 08/09/20 20:54 26 126/78 Mechanical Ventilator 100 08/09/20 19:30 20 104/70 Mechanical Ventilator 100 08/09/20 19:13 68 22 100 08/09/20 19:00 67 22 98/70 (79) 100 08/09/20 19:00 22 109/71 Mechanical Ventilator 100 08/09/20 19:00 22 109/71 Mechanical Ventilator 100 08/09/20 18:45 68 22 102/69 (80) 100 08/09/20 18:30 67 22 98/63 (75) 100 08/09/20 18:15 68 22 95/64 (74) 100 08/09/20 18:00 66 22 99/61 (74) 100 08/09/20 18:00 17 120/65 Mechanical Ventilator 100 08/09/20 18:00 17 120/65 Mechanical Ventilator 75 08/09/20 17:45 67 22 101/60 (74) 100 08/09/20 17:30 70 22 100/65 (77) 100 08/09/20 17:15 93 26 114/67 (83) 98 08/09/20 17:00 80 22 102/87 (92) 96 08/09/20 17:00 18 116/70 Mechanical Ventilator 100 08/09/20 17:00 18 116/70 Mechanical Ventilator 75 08/09/20 17:00 78 23 102/87 (92) 95 08/09/20 16:49 91 30 100 08/09/20 16:45 71 22 100/64 (76) 100 08/09/20 16:30 72 22 97/64 (75) 100 08/09/20 16:15 98.5 71 22 98/65 (76) 100 08/09/20 16:00 Mechanical Ventilator 08/09/20 16:00 74 22 98/65 (76) 100 08/09/20 16:00 100 08/09/20 16:00 24 98/65 Mechanical Ventilator 100 08/09/20 16:00 22 98/65 Mechanical Ventilator 100 08/09/20 16:00 69 08/09/20 15:45 73 22 102/64 (77) 100 08/09/20 15:30 74 22 100/62 (75) 100 08/09/20 15:15 66 22 104/89 (94) 99 08/09/20 15:12 70 25 100 08/09/20 15:00 70 20 105/66 (79) 98 08/09/20 15:00 24 104/89 Mechanical Ventilator 100 08/09/20 15:00 22 104/89 Mechanical Ventilator 100 08/09/20 15:00 72 24 105/66 (79) 98 08/09/20 14:45 70 24 103/65 (78) 98 08/09/20 14:30 23 103/65 Mechanical Ventilator 100 08/09/20 14:30 75 22 100/65 (77) 96 08/09/20 14:15 71 23 103/67 (79) 98 08/09/20 14:00 74 23 103/64 (77) 98 08/09/20 14:00 98.6 71 24 103/64 (77) 98 08/09/20 14:00 22 103/64 Mechanical Ventilator 100 08/09/20 14:00 23 103/64 Mechanical Ventilator 100 08/09/20 13:45 76 24 98/63 (75) 99 08/09/20 13:30 81 21 96/61 (73) 99 08/09/20 13:15 78 22 98/65 (76) 100 08/09/20 13:00 82 22 102/64 (77) 100 08/09/20 13:00 77 24 96/61 (73) 99 08/09/20 13:00 24 98/65 Mechanical Ventilator 100 08/09/20 13:00 22 98/65 Mechanical Ventilator 100 08/09/20 12:45 86 22 103/70 (81) 100 08/09/20 12:30 111 22 126/81 (96) 95 08/09/20 12:28 121 22 100 08/09/20 12:15 111 30 159/87 (111) 83 08/09/20 12:00 90 22 134/71 (92) 93 08/09/20 12:00 100 08/09/20 12:00 98.7 108 20 134/71 (92) 92 08/09/20 12:00 90 08/09/20 12:00 24 134/71 Mechanical Ventilator 100 08/09/20 12:00 24 134/71 Mechanical Ventilator 100 08/09/20 12:00 Mechanical Ventilator 08/09/20 11:59 27 160/78 Mechanical Ventilator 100 08/09/20 11:59 28 127/72 Mechanical Ventilator 100 08/09/20 11:45 116 28 160/78 (105) 80 08/09/20 11:30 77 23 127/72 (90) 94 08/09/20 11:15 69 22 109/72 (84) 94 08/09/20 11:00 23 109/72 Mechanical Ventilator 80 08/09/20 11:00 23 109/72 Mechanical Ventilator 100 08/09/20 11:00 92 22 109/72 (84) 93 08/09/20 10:50 73 22 80 08/09/20 10:45 74 22 88/53 (65) 100 08/09/20 10:30 75 22 88/55 (66) 100 08/09/20 10:15 70 22 95/61 (72) 100 08/09/20 10:00 22 95/60 Mechanical Ventilator 80 08/09/20 10:00 22 95/60 Mechanical Ventilator 80 08/09/20 10:00 73 22 95/60 (72) 100 08/09/20 09:45 72 22 95/57 (70) 100 08/09/20 09:30 74 22 87/54 (65) 100 08/09/20 09:15 74 22 100/66 (77) 100 08/09/20 09:02 68 22 100 08/09/20 09:00 67 22 95/61 (72) 100 08/09/20 09:00 22 95/61 Mechanical Ventilator 80 08/09/20 09:00 22 95/61 Mechanical Ventilator 80 08/09/20 08:45 70 22 103/66 (78) 100 08/09/20 08:30 72 22 101/71 (81) 100 08/09/20 08:26 99/68 08/09/20 08:25 73 90/68 08/09/20 08:15 71 22 99/68 (78) 99 08/09/20 08:00 98.1 69 22 102/70 (81) 99 08/09/20 08:00 100 08/09/20 08:00 22 102/70 Mechanical Ventilator 100 08/09/20 08:00 22 102/70 Mechanical Ventilator 100 08/09/20 08:00 70 08/09/20 08:00 Mechanical Ventilator 08/09/20 07:45 67 21 109/71 (84) 99 08/09/20 07:37 22 126/85 Mechanical Ventilator 100 08/09/20 07:30 64 22 126/85 (99) 99 08/09/20 07:15 69 22 119/81 (94) 99 08/09/20 07:14 70 22 100 08/09/20 07:00 22 124/79 Mechanical Ventilator 100 08/09/20 07:00 69 22 124/79 (94) 99 08/09/20 06:00 68 22 123/82 (96) 99 08/09/20 06:00 22 123/82 Mechanical Ventilator 100 08/09/20 06:00 22 123/82 Mechanical Ventilator 100 08/09/20 05:00 22 116/75 Mechanical Ventilator 100 08/09/20 05:00 22 116/75 Mechanical Ventilator 100 08/09/20 05:00 71 22 116/75 (89) 100 08/09/20 04:00 98.3 98 28 155/90 (111) 66 08/09/20 04:00 28 155/90 Mechanical Ventilator 100 08/09/20 04:00 28 155/90 Mechanical Ventilator 100 08/09/20 04:00 Mechanical Ventilator 08/09/20 04:00 59 08/09/20 04:00 100 08/09/20 03:58 100 08/09/20 03:05 60 24 80 08/09/20 03:00 19 112/78 Mechanical Ventilator 90 08/09/20 03:00 19 112/78 Mechanical Ventilator 90 08/09/20 03:00 60 19 112/78 (89) 96 08/09/20 02:29 22 126/79 Mechanical Ventilator 90 08/09/20 02:02 21 115/66 Mechanical Ventilator 90 08/09/20 02:00 67 23 115/66 (82) 94 08/09/20 02:00 23 115/66 Mechanical Ventilator 90 08/09/20 02:00 23 115/66 Mechanical Ventilator 90 08/09/20 01:00 60 22 120/73 (89) 98 08/09/20 01:00 22 122/73 Mechanical Ventilator 90 08/09/20 01:00 22 120/73 Mechanical Ventilator 90 08/09/20 00:00 90 08/09/20 00:00 22 121/71 Mechanical Ventilator 90 08/09/20 00:00 22 121/71 Mechanical Ventilator 90 08/09/20 00:00 Mechanical Ventilator 08/09/20 00:00 98.3 61 22 121/71 (88) 98 08/09/20 00:00 60 08/08/20 23:10 73 22 90 08/08/20 23:00 70 22 114/71 (85) 99 08/08/20 23:00 22 114/71 Mechanical Ventilator 100 08/08/20 23:00 22 114/71 Mechanical Ventilator 100 08/08/20 22:00 62 22 117/77 (90) 99 08/08/20 22:00 21 132/79 Mechanical Ventilator 100 08/08/20 22:00 21 95/56 Mechanical Ventilator 100 Intake and Output 08/08/20 08/09/20 19:00 07:00 Intake Total 1594.04 ml 1521.583 ml Output Total 495 ml 685 ml Balance 1099.04 ml 836.583 ml Free Water 100 ml IV Total 834.04 ml 861.583 ml Tube Feeding 660 ml 660 ml Output Urine Total 495 ml 685 ml Laboratory Tests Test 08/09/20 03:50 White Blood Count 16.9 K/UL (4.8-10.8) H Red Blood Count 2.93 M/UL (4.20-5.40) L Hemoglobin 8.3 G/DL (12.0-16.0) L Hematocrit 26.7 % (37.0-47.0) L Mean Corpuscular Volume 91 FL (80-99) Mean Corpuscular Hemoglobin 28.5 PG (27.0-31.0) Mean Corpuscular Hemoglobin Concent 31.3 G/DL (32.0-36.0) L Red Cell Distribution Width 16.3 % (11.6-14.8) H Platelet Count 119 K/UL (150-450) L Mean Platelet Volume 9.3 FL (6.5-10.1) Neutrophils (%) (Auto) % (45.0-75.0) Lymphocytes (%) (Auto) % (20.0-45.0) Monocytes (%) (Auto) % (1.0-10.0) Eosinophils (%) (Auto) % (0.0-3.0) Basophils (%) (Auto) % (0.0-2.0) Differential Total Cells Counted 100 Neutrophils % (Manual) 88 % (45-75) H Lymphocytes % (Manual) 7 % (20-45) L Monocytes % (Manual) 4 % (1-10) Eosinophils % (Manual) 1 % (0-3) Basophils % (Manual) 0 % (0-2) Band Neutrophils 0 % (0-8) Platelet Estimate Decreased L Platelet Morphology Normal Hypochromasia 1+ Anisocytosis 1+ Sodium Level 146 MMOL/L (136-145) H Potassium Level 4.6 MMOL/L (3.5-5.1) Chloride Level 111 MMOL/L (98-107) H Carbon Dioxide Level 29 MMOL/L (21-32) Anion Gap 6 mmol/L (5-15) Blood Urea Nitrogen 36 mg/dL (7-18) H Creatinine 0.8 MG/DL (0.55-1.30) Estimat Glomerular Filtration Rate > 60 mL/min (>60) Glucose Level 181 MG/DL (74-106) H Calcium Level 8.6 MG/DL (8.5-10.1) Total Bilirubin 0.4 MG/DL (0.2-1.0) Aspartate Amino Transf (AST/SGOT) 68 U/L (15-37) H Alanine Aminotransferase (ALT/SGPT) 179 U/L (12-78) H Alkaline Phosphatase 131 U/L (46-116) H Total Protein 5.3 G/DL (6.4-8.2) L Albumin 1.8 G/DL (3.4-5.0) L Globulin 3.5 g/dL Albumin/Globulin Ratio 0.5 (1.0-2.7) L Blanca Lobato PA-C Aug 09, 2020 21:25
--- NOTE | 2020-08-09 22:30 | NUR ---
Pt continues to have bloody oral secretions. Oral care provided and patient repositioned. VSS will continue to monitor patient. , Rogelio, called and this RN provided update.
[2020-08-10] VITALS (73 sets, daily range): BP systolic 94–137; BP diastolic 56–79
--- NOTE | 2020-08-10 00:10 | NUR ---
Pt remains stable and off of Levophed gtt. Pt in no acute distress. Oral care and repositioning completed. Pt continues to have bloody oral secretions. Tolerated positioning well with no evidence of desaturation. Medications administered per orders on eMAR, BG checked. Will continue to monitor.
[2020-08-10] MEDS: Solu-MEDROL 40mg Inj IVP SCH ×5 (00:16→23:59)
[2020-08-10] MEDS: NovoLOG Insulin Flexpen SUBQ SCH ×4 (00:19→17:26)
[2020-08-10] MEDS: Versed 100mg/NS 200ml 200 ML IV PRN ×5 (00:26→22:53)
--- NOTE | 2020-08-10 02:00 | NUR ---
pt remains stable and in NAD. VSS. Oral care and repositioning complete.
--- NOTE | 2020-08-10 04:45 | NUR ---
Pt remains stable and continues to have bloody oral secretions. Complete bath done on patient. VSS and remains off of Levophed maintaining own blood pressure. Will continue to monitor.
[2020-08-10 05:27] LABS: HEMATOCRIT 21.8 % (37.0-47.0); MEAN CORPUSCULAR VOLUME 91 FL (80-99); PLATELET COUNT 98 K/UL (150-450); RED BLOOD COUNT 2.41 M/UL (4.20-5.40); RED CELL DISTRIBUTION WIDTH 15.6 % (11.6-14.8); WHITE BLOOD COUNT 10.5 K/UL (4.8-10.8)
[2020-08-10 05:36] LABS: ALANINE AMINOTRANSFERASE 119 U/L (12-78); ALBUMIN 1.5 G/DL (3.4-5.0); ALBUMIN/GLOBULIN RATIO 0.5 (1.0-2.7); ALKALINE PHOSPHATASE 92 U/L (46-116); ANION GAP 3 mmol/L (5-15); ASPARTATE AMINO TRANSFERASE 43 U/L (15-37); BILIRUBIN,TOTAL 0.2 MG/DL (0.2-1.0); BLOOD UREA NITROGEN 35 mg/dL (7-18); CALCIUM 8.3 MG/DL (8.5-10.1); CARBON DIOXIDE 31 MMOL/L (21-32); CHLORIDE 115 MMOL/L (98-107); CREATININE 0.8 MG/DL (0.55-1.30); POTASSIUM 4.7 MMOL/L (3.5-5.1); SODIUM 149 MMOL/L (136-145)
[2020-08-10 05:47] LABS: HEMOGLOBIN 6.6 G/DL (12.0-16.0)
[2020-08-10] MEDS: fentaNYL 2500mcg/NS 250ml 250 ML IV PRN ×3 (06:07→23:29)
--- NOTE | 2020-08-10 06:43 | NUR ---
Pt remains stable and in NAD. Oral care and repositioning done. Pt continues to have bloody oral secretions. Will continue to monitor. Addendum: 08/10/20 at 0649 by ALVARO EDWARDS RN Dr. Blankneship to bedside. Pt H&H dropped overnight to 11/20. Dr. Blankenship consulted with Dr. De Luna and ordered 2U PRBC's to transfuse and Amicar to be dosed by pharmacy either Q4 or Q6 Hours for 24 hours only). sharif Lizama RN placed order for amicar as this RN unfamiliar with how to place. This RN to place order for 2U PRBC's now.
--- NOTE | 2020-08-10 06:56 | NUR ---
NURSE NOTES: spoke with anju from pharmacy and told her that i put an order for amicar, pharmacy to dose, she said she'll call dr mirza to clarify the order
--- NOTE | 2020-08-10 07:34 | NUR ---
NURSE NOTES: Received report from LIANA Echeverria. Patient is sedated, RASS -2. Orally intubated, ETT 7.5/24cm at lip line with vent setting ac 22, tv 450, fio2 100%, PEEP 12. OGT intact; running tube feeds- Glucerna 1.2 @ 55mL/hr. Right femoral TLC intact and running Versed @ 20mg/hr and Fentanyl @ 300mcg/hr. Pt has a right nare packing d/t epistaxis; no bleeding currently noted. Bloody secretions noted from mouth. Pt has a joseph catheter in place, draining with gravity to urometer. Rectal tube in place with pasty brown stool noted in tubing. SCDs on. Bed locked and in lowest position, with call light within reach. Will continue plan of care.
--- NOTE | 2020-08-10 08:32 | NUR ---
RD ASSESSMENT & RECOMMENDATIONS SEE CARE ACTIVITY FOR COMPLETE ASSESSMENT DAILY ESTIMATED NEEDS: Needs based on Critical care, DM, pulmonary/ 57.6kg abw 22-28 kcals/kg 5701-0739 total kcals 1.2-2 g protein/kg 69-115 g total protein Fluid per MD, on lasix NUTRITION DIAGNOSIS: Altered nutrition related lab values R/T diabetes and steroidal med as evidenced by A1C 6.9 w/ elev POC (200's and 300's-> now improved to mid 100's), remains on solumedrol. CURRENT TF:Glucerna 1.2 @ 55ml/hr x 24 hrs at goal ENTERAL NUTRITION RECOMMENDATIONS: Glucerna 1.2 g @ 55ml/hr x24 hrs to provide 1320ml, 1584 kcal, 79g pro, 1063ml free H2O - Cont to titrate to goal as tolerated - Flush per MD - HOB over 30 degrees ADDITIONAL RECOMMENDATIONS: * Calibrated bedscale wt * Monitor K need for TF change (K 5.8 /, now wnl) * Monitor BGs closely w/ Solumderol, rec to increase Levemir -> NOW INCREASED, BGS IMPROVED TO MID 100'S * Monitor hemodynamic stability- NE restarted * Na and BUN elevated-> increased water flushes for hydration
[2020-08-10] MEDS: Levemir Flexpen SUBQ SCH ×2 (09:17→20:36)
[2020-08-10] MEDS: Norepinephrine 4mg/NS Premix 250 ML IV SCH (09:30)
--- NOTE | 2020-08-10 09:30 | NUR ---
NURSE NOTES: TIO Mohamud doing his rounds. Updated him on pt's current condition.
--- NOTE | 2020-08-10 10:11 | Cardiology Progress Note ---
Assessment/Plan Assessment/Plan 1. COVID-19 viral PNA s/p remdesivir and dexamethasone WBCs elevated 2. Respiratory failure 2/2 acute PNA Intubated 07/25/20 3. HFpEF acute on chronic diastolic HF with preserved EF EF 65%, per repeat echo post intubation Lasix for diuresis as needed 4. 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 Sinus tachycardia 2/2 fever and infection 7. Hypotension 2/2 shock, Levophed as needed Hypotensive with worsening infiltrative disease, pressors off and on, still vent dependent. Levophed per critical care team, wean off as tolerated. Repeat echo shows no change. Lasix as needed per pulmonlogy recs. Subjective Subjective Hypotensive requiring pressors. CXR shows worsening infiltrates. Intubated and on vent, in sinus rhythm. Seen in ICU Objective Last 24 Hour Vital Signs Date Time Temp Pulse Resp B/P (MAP) Pulse Ox O2 Delivery O2 Flow Rate FiO2 08/10/20 09:00 68 24 113/66 (82) 96 08/10/20 08:30 71 23 104/62 (76) 96 08/10/20 08:11 57 26 100 08/10/20 08:00 Mechanical Ventilator 08/10/20 08:00 22 109/62 Mechanical Ventilator 100 08/10/20 08:00 22 109/62 Mechanical Ventilator 100 08/10/20 08:00 100 08/10/20 08:00 98.3 71 23 113/60 (77) 97 08/10/20 07:30 69 23 110/56 (74) 98 08/10/20 07:00 22 113/67 Mechanical Ventilator 100 08/10/20 07:00 22 113/67 Mechanical Ventilator 100 08/10/20 07:00 68 22 112/62 (79) 99 08/10/20 06:30 69 22 117/69 (85) 99 08/10/20 06:15 68 23 116/60 (78) 97 08/10/20 06:07 22 113/61 Mechanical Ventilator 100 08/10/20 06:05 22 113/61 Mechanical Ventilator 100 08/10/20 06:00 69 24 113/61 (78) 96 08/10/20 05:45 66 23 116/65 (82) 97 08/10/20 05:30 69 24 111/69 (83) 97 08/10/20 05:15 73 25 114/65 (81) 97 08/10/20 05:00 82 23 118/62 (80) 98 08/10/20 04:45 91 24 117/59 (78) 96 08/10/20 04:30 96 23 123/69 (87) 95 08/10/20 04:29 98.3 98 22 130/64 (86) 94 08/10/20 04:00 80 22 128/79 (95) 98 08/10/20 04:00 100 08/10/20 04:00 Mechanical Ventilator 08/10/20 04:00 75 08/10/20 03:45 75 22 109/70 (83) 98 08/10/20 03:30 75 22 112/72 (85) 98 08/10/20 03:15 80 22 128/73 (91) 97 08/10/20 03:13 88 28 100 08/10/20 03:00 68 22 112/67 (82) 99 08/10/20 02:45 66 22 106/68 (81) 99 08/10/20 02:30 68 22 110/65 (80) 99 08/10/20 02:15 63 22 112/67 (82) 99 08/10/20 02:00 67 22 110/71 (84) 99 08/10/20 01:45 67 22 110/71 (84) 99 08/10/20 01:30 69 22 109/70 (83) 99 08/10/20 01:15 65 22 106/70 (82) 100 08/10/20 01:00 63 22 103/70 (81) 100 08/10/20 00:45 68 22 109/66 (80) 100 08/10/20 00:30 71 22 112/68 (83) 100 08/10/20 00:26 22 96/63 Mechanical Ventilator 100 08/10/20 00:15 97.6 67 22 96/63 (74) 100 08/10/20 00:00 69 08/10/20 00:00 22 109/66 Mechanical Ventilator 100 08/10/20 00:00 22 109/66 Mechanical Ventilator 100 08/10/20 00:00 Mechanical Ventilator 08/10/20 00:00 68 22 94/61 (72) 100 08/10/20 00:00 100 08/09/20 23:45 67 22 95/62 (73) 100 08/09/20 23:30 65 22 99/63 (75) 100 08/09/20 23:15 66 22 97/67 (77) 100 08/09/20 23:09 66 22 100 08/09/20 23:00 22 97/67 Mechanical Ventilator 100 08/09/20 23:00 22 97/67 Mechanical Ventilator 100 08/09/20 23:00 67 22 103/68 (80) 100 08/09/20 22:45 66 22 101/66 (78) 100 08/09/20 22:30 64 22 97/68 (78) 100 08/09/20 22:15 65 22 100/67 (78) 100 08/09/20 22:00 65 22 102/66 (78) 100 08/09/20 22:00 22 100/67 Mechanical Ventilator 100 08/09/20 22:00 22 97/67 Mechanical Ventilator 100 08/09/20 21:45 68 22 101/66 (78) 100 08/09/20 21:30 66 22 106/67 (80) 100 08/09/20 21:15 68 22 106/70 (82) 100 08/09/20 21:00 68 22 109/68 (82) 100 08/09/20 21:00 22 106/70 Mechanical Ventilator 100 08/09/20 21:00 22 106/70 Mechanical Ventilator 100 08/09/20 20:54 26 126/78 Mechanical Ventilator 100 08/09/20 20:45 86 24 126/78 (94) 100 08/09/20 20:30 77 22 95/61 (72) 100 08/09/20 20:15 74 22 95/65 (75) 100 08/09/20 20:00 Mechanical Ventilator 08/09/20 20:00 97.3 71 22 101/65 (77) 100 08/09/20 20:00 22 95/65 Mechanical Ventilator 100 08/09/20 20:00 22 95/65 Mechanical Ventilator 100 08/09/20 20:00 100 08/09/20 20:00 64 08/09/20 19:45 69 22 103/66 (78) 100 08/09/20 19:30 20 104/70 Mechanical Ventilator 100 08/09/20 19:30 68 22 109/71 (84) 100 08/09/20 19:15 68 22 104/70 (81) 100 08/09/20 19:13 68 22 100 08/09/20 19:00 67 22 98/70 (79) 100 08/09/20 19:00 22 109/71 Mechanical Ventilator 100 08/09/20 19:00 22 109/71 Mechanical Ventilator 100 08/09/20 18:45 68 22 102/69 (80) 100 08/09/20 18:30 67 22 98/63 (75) 100 08/09/20 18:15 68 22 95/64 (74) 100 08/09/20 18:00 66 22 99/61 (74) 100 08/09/20 18:00 17 120/65 Mechanical Ventilator 100 08/09/20 18:00 17 120/65 Mechanical Ventilator 75 08/09/20 17:45 67 22 101/60 (74) 100 08/09/20 17:30 70 22 100/65 (77) 100 08/09/20 17:15 93 26 114/67 (83) 98 08/09/20 17:00 80 22 102/87 (92) 96 08/09/20 17:00 18 116/70 Mechanical Ventilator 100 08/09/20 17:00 18 116/70 Mechanical Ventilator 75 08/09/20 17:00 78 23 102/87 (92) 95 08/09/20 16:49 91 30 100 08/09/20 16:45 71 22 100/64 (76) 100 08/09/20 16:30 72 22 97/64 (75) 100 08/09/20 16:15 98.5 71 22 98/65 (76) 100 08/09/20 16:00 Mechanical Ventilator 08/09/20 16:00 74 22 98/65 (76) 100 08/09/20 16:00 100 08/09/20 16:00 24 98/65 Mechanical Ventilator 100 08/09/20 16:00 22 98/65 Mechanical Ventilator 100 08/09/20 16:00 69 08/09/20 15:45 73 22 102/64 (77) 100 08/09/20 15:30 74 22 100/62 (75) 100 08/09/20 15:15 66 22 104/89 (94) 99 08/09/20 15:12 70 25 100 08/09/20 15:00 70 20 105/66 (79) 98 08/09/20 15:00 24 104/89 Mechanical Ventilator 100 08/09/20 15:00 22 104/89 Mechanical Ventilator 100 08/09/20 15:00 72 24 105/66 (79) 98 08/09/20 14:45 70 24 103/65 (78) 98 08/09/20 14:30 23 103/65 Mechanical Ventilator 100 08/09/20 14:30 75 22 100/65 (77) 96 08/09/20 14:15 71 23 103/67 (79) 98 08/09/20 14:00 74 23 103/64 (77) 98 08/09/20 14:00 98.6 71 24 103/64 (77) 98 08/09/20 14:00 22 103/64 Mechanical Ventilator 100 08/09/20 14:00 23 103/64 Mechanical Ventilator 100 08/09/20 13:45 76 24 98/63 (75) 99 08/09/20 13:30 81 21 96/61 (73) 99 08/09/20 13:15 78 22 98/65 (76) 100 08/09/20 13:00 82 22 102/64 (77) 100 08/09/20 13:00 77 24 96/61 (73) 99 08/09/20 13:00 24 98/65 Mechanical Ventilator 100 08/09/20 13:00 22 98/65 Mechanical Ventilator 100 08/09/20 12:45 86 22 103/70 (81) 100 08/09/20 12:30 111 22 126/81 (96) 95 08/09/20 12:28 121 22 100 08/09/20 12:15 111 30 159/87 (111) 83 08/09/20 12:00 90 22 134/71 (92) 93 08/09/20 12:00 100 08/09/20 12:00 98.7 108 20 134/71 (92) 92 08/09/20 12:00 90 08/09/20 12:00 24 134/71 Mechanical Ventilator 100 08/09/20 12:00 24 134/71 Mechanical Ventilator 100 08/09/20 12:00 Mechanical Ventilator 08/09/20 11:59 27 160/78 Mechanical Ventilator 100 08/09/20 11:59 28 127/72 Mechanical Ventilator 100 08/09/20 11:45 116 28 160/78 (105) 80 08/09/20 11:30 77 23 127/72 (90) 94 08/09/20 11:15 69 22 109/72 (84) 94 08/09/20 11:00 23 109/72 Mechanical Ventilator 80 08/09/20 11:00 23 109/72 Mechanical Ventilator 100 08/09/20 11:00 92 22 109/72 (84) 93 08/09/20 10:50 73 22 80 08/09/20 10:45 74 22 88/53 (65) 100 08/09/20 10:30 75 22 88/55 (66) 100 08/09/20 10:15 70 22 95/61 (72) 100 Intake and Output 08/09/20 08/10/20 19:00 07:00 Intake Total 1506.500 ml 1569.827 ml Output Total 750 ml 910 ml Balance 756.500 ml 659.827 ml Free Water 100 ml IV Total 846.500 ml 809.827 ml Tube Feeding 660 ml 660 ml Output Urine Total 750 ml 885 ml Stool Total 25 ml Laboratory Tests Test 08/10/20 03:52 08/10/20 09:03 White Blood Count 10.5 K/UL (4.8-10.8) Red Blood Count 2.41 M/UL (4.20-5.40) L Hemoglobin 6.6 G/DL (12.0-16.0) *L Hematocrit 21.8 % (37.0-47.0) L Mean Corpuscular Volume 91 FL (80-99) Mean Corpuscular Hemoglobin 27.5 PG (27.0-31.0) Mean Corpuscular Hemoglobin Concent 30.3 G/DL (32.0-36.0) L Red Cell Distribution Width 15.6 % (11.6-14.8) H Platelet Count 98 K/UL (150-450) L Mean Platelet Volume 8.0 FL (6.5-10.1) Neutrophils (%) (Auto) % (45.0-75.0) Lymphocytes (%) (Auto) % (20.0-45.0) Monocytes (%) (Auto) % (1.0-10.0) Eosinophils (%) (Auto) % (0.0-3.0) Basophils (%) (Auto) % (0.0-2.0) Differential Total Cells Counted 100 Neutrophils % (Manual) 95 % (45-75) H Lymphocytes % (Manual) 3 % (20-45) L Monocytes % (Manual) 2 % (1-10) Eosinophils % (Manual) 0 % (0-3) Basophils % (Manual) 0 % (0-2) Band Neutrophils 0 % (0-8) Platelet Estimate Decreased L Platelet Morphology Normal Hypochromasia 2+ Basophilic Stippling 1+ Anisocytosis 1+ Sodium Level 149 MMOL/L (136-145) H Potassium Level 4.7 MMOL/L (3.5-5.1) Chloride Level 115 MMOL/L (98-107) H Carbon Dioxide Level 31 MMOL/L (21-32) Anion Gap 3 mmol/L (5-15) L Blood Urea Nitrogen 35 mg/dL (7-18) H Creatinine 0.8 MG/DL (0.55-1.30) Estimat Glomerular Filtration Rate > 60 mL/min (>60) Glucose Level 138 MG/DL (74-106) H Calcium Level 8.3 MG/DL (8.5-10.1) L Total Bilirubin 0.2 MG/DL (0.2-1.0) Aspartate Amino Transf (AST/SGOT) 43 U/L (15-37) H Alanine Aminotransferase (ALT/SGPT) 119 U/L (12-78) H Alkaline Phosphatase 92 U/L (46-116) Total Protein 4.3 G/DL (6.4-8.2) L Albumin 1.5 G/DL (3.4-5.0) L Globulin 2.8 g/dL Albumin/Globulin Ratio 0.5 (1.0-2.7) L POC Whole Blood Glucose 171 MG/DL (74-106) H Blanca Lobato PA-C Aug 10, 2020 10:11
--- NOTE | 2020-08-10 10:15 | NUR ---
NURSE NOTES: Dr Edward on the unit making his rounds. Updated him on pt's current condition. Informed singer songwriter that he would call pt's family and update them on pt's condition.
--- NOTE | 2020-08-10 10:20 | Infectious Diseases Prog Note ---
Assessment/Plan Assessment/Plan A: 1. COVID-19 pneumonia. 2. Pseudomonas pneumonia. 3. Respiratory failure with hypoxemia & hypercapnia 4. Leukocytosis 5. DM 6. Epistaxis PLAN: 1. Observe off of antibiotic 2. Continue Solu-Medrol. 3. Case was D/W RN 4. Poor prognosis, DNR status Subjective ROS Limited/Unobtainable: Yes Allergies: Coded Allergies: No Known Allergies (Unverified , 07/07/20) Objective Last 24 Hour Vital Signs Date Time Temp Pulse Resp B/P (MAP) Pulse Ox O2 Delivery O2 Flow Rate FiO2 08/10/20 09:00 68 24 113/66 (82) 96 08/10/20 08:30 71 23 104/62 (76) 96 08/10/20 08:11 57 26 100 08/10/20 08:00 Mechanical Ventilator 08/10/20 08:00 22 109/62 Mechanical Ventilator 100 08/10/20 08:00 22 109/62 Mechanical Ventilator 100 08/10/20 08:00 100 08/10/20 08:00 98.3 71 23 113/60 (77) 97 08/10/20 07:30 69 23 110/56 (74) 98 08/10/20 07:00 22 113/67 Mechanical Ventilator 100 08/10/20 07:00 22 113/67 Mechanical Ventilator 100 08/10/20 07:00 68 22 112/62 (79) 99 08/10/20 06:30 69 22 117/69 (85) 99 08/10/20 06:15 68 23 116/60 (78) 97 08/10/20 06:07 22 113/61 Mechanical Ventilator 100 08/10/20 06:05 22 113/61 Mechanical Ventilator 100 08/10/20 06:00 69 24 113/61 (78) 96 08/10/20 05:45 66 23 116/65 (82) 97 08/10/20 05:30 69 24 111/69 (83) 97 08/10/20 05:15 73 25 114/65 (81) 97 08/10/20 05:00 82 23 118/62 (80) 98 08/10/20 04:45 91 24 117/59 (78) 96 08/10/20 04:30 96 23 123/69 (87) 95 08/10/20 04:29 98.3 98 22 130/64 (86) 94 08/10/20 04:00 80 22 128/79 (95) 98 08/10/20 04:00 100 08/10/20 04:00 Mechanical Ventilator 08/10/20 04:00 75 08/10/20 03:45 75 22 109/70 (83) 98 08/10/20 03:30 75 22 112/72 (85) 98 08/10/20 03:15 80 22 128/73 (91) 97 08/10/20 03:13 88 28 100 08/10/20 03:00 68 22 112/67 (82) 99 08/10/20 02:45 66 22 106/68 (81) 99 08/10/20 02:30 68 22 110/65 (80) 99 08/10/20 02:15 63 22 112/67 (82) 99 08/10/20 02:00 67 22 110/71 (84) 99 08/10/20 01:45 67 22 110/71 (84) 99 08/10/20 01:30 69 22 109/70 (83) 99 08/10/20 01:15 65 22 106/70 (82) 100 08/10/20 01:00 63 22 103/70 (81) 100 08/10/20 00:45 68 22 109/66 (80) 100 08/10/20 00:30 71 22 112/68 (83) 100 08/10/20 00:26 22 96/63 Mechanical Ventilator 100 08/10/20 00:15 97.6 67 22 96/63 (74) 100 08/10/20 00:00 69 08/10/20 00:00 22 109/66 Mechanical Ventilator 100 08/10/20 00:00 22 109/66 Mechanical Ventilator 100 08/10/20 00:00 Mechanical Ventilator 08/10/20 00:00 68 22 94/61 (72) 100 08/10/20 00:00 100 08/09/20 23:45 67 22 95/62 (73) 100 08/09/20 23:30 65 22 99/63 (75) 100 08/09/20 23:15 66 22 97/67 (77) 100 08/09/20 23:09 66 22 100 08/09/20 23:00 22 97/67 Mechanical Ventilator 100 08/09/20 23:00 22 97/67 Mechanical Ventilator 100 08/09/20 23:00 67 22 103/68 (80) 100 08/09/20 22:45 66 22 101/66 (78) 100 08/09/20 22:30 64 22 97/68 (78) 100 08/09/20 22:15 65 22 100/67 (78) 100 08/09/20 22:00 65 22 102/66 (78) 100 08/09/20 22:00 22 100/67 Mechanical Ventilator 100 08/09/20 22:00 22 97/67 Mechanical Ventilator 100 08/09/20 21:45 68 22 101/66 (78) 100 08/09/20 21:30 66 22 106/67 (80) 100 08/09/20 21:15 68 22 106/70 (82) 100 08/09/20 21:00 68 22 109/68 (82) 100 08/09/20 21:00 22 106/70 Mechanical Ventilator 100 08/09/20 21:00 22 106/70 Mechanical Ventilator 100 08/09/20 20:54 26 126/78 Mechanical Ventilator 100 08/09/20 20:45 86 24 126/78 (94) 100 08/09/20 20:30 77 22 95/61 (72) 100 08/09/20 20:15 74 22 95/65 (75) 100 08/09/20 20:00 Mechanical Ventilator 08/09/20 20:00 97.3 71 22 101/65 (77) 100 08/09/20 20:00 22 95/65 Mechanical Ventilator 100 08/09/20 20:00 22 95/65 Mechanical Ventilator 100 08/09/20 20:00 100 08/09/20 20:00 64 08/09/20 19:45 69 22 103/66 (78) 100 08/09/20 19:30 20 104/70 Mechanical Ventilator 100 08/09/20 19:30 68 22 109/71 (84) 100 08/09/20 19:15 68 22 104/70 (81) 100 08/09/20 19:13 68 22 100 08/09/20 19:00 67 22 98/70 (79) 100 08/09/20 19:00 22 109/71 Mechanical Ventilator 100 08/09/20 19:00 22 109/71 Mechanical Ventilator 100 08/09/20 18:45 68 22 102/69 (80) 100 08/09/20 18:30 67 22 98/63 (75) 100 08/09/20 18:15 68 22 95/64 (74) 100 08/09/20 18:00 66 22 99/61 (74) 100 08/09/20 18:00 17 120/65 Mechanical Ventilator 100 08/09/20 18:00 17 120/65 Mechanical Ventilator 75 08/09/20 17:45 67 22 101/60 (74) 100 08/09/20 17:30 70 22 100/65 (77) 100 08/09/20 17:15 93 26 114/67 (83) 98 08/09/20 17:00 80 22 102/87 (92) 96 08/09/20 17:00 18 116/70 Mechanical Ventilator 100 08/09/20 17:00 18 116/70 Mechanical Ventilator 75 08/09/20 17:00 78 23 102/87 (92) 95 08/09/20 16:49 91 30 100 08/09/20 16:45 71 22 100/64 (76) 100 08/09/20 16:30 72 22 97/64 (75) 100 08/09/20 16:15 98.5 71 22 98/65 (76) 100 08/09/20 16:00 Mechanical Ventilator 08/09/20 16:00 74 22 98/65 (76) 100 08/09/20 16:00 100 08/09/20 16:00 24 98/65 Mechanical Ventilator 100 08/09/20 16:00 22 98/65 Mechanical Ventilator 100 08/09/20 16:00 69 08/09/20 15:45 73 22 102/64 (77) 100 08/09/20 15:30 74 22 100/62 (75) 100 08/09/20 15:15 66 22 104/89 (94) 99 08/09/20 15:12 70 25 100 08/09/20 15:00 70 20 105/66 (79) 98 08/09/20 15:00 24 104/89 Mechanical Ventilator 100 08/09/20 15:00 22 104/89 Mechanical Ventilator 100 08/09/20 15:00 72 24 105/66 (79) 98 08/09/20 14:45 70 24 103/65 (78) 98 08/09/20 14:30 23 103/65 Mechanical Ventilator 100 08/09/20 14:30 75 22 100/65 (77) 96 08/09/20 14:15 71 23 103/67 (79) 98 08/09/20 14:00 74 23 103/64 (77) 98 08/09/20 14:00 98.6 71 24 103/64 (77) 98 08/09/20 14:00 22 103/64 Mechanical Ventilator 100 08/09/20 14:00 23 103/64 Mechanical Ventilator 100 08/09/20 13:45 76 24 98/63 (75) 99 08/09/20 13:30 81 21 96/61 (73) 99 08/09/20 13:15 78 22 98/65 (76) 100 08/09/20 13:00 82 22 102/64 (77) 100 08/09/20 13:00 77 24 96/61 (73) 99 08/09/20 13:00 24 98/65 Mechanical Ventilator 100 08/09/20 13:00 22 98/65 Mechanical Ventilator 100 08/09/20 12:45 86 22 103/70 (81) 100 08/09/20 12:30 111 22 126/81 (96) 95 08/09/20 12:28 121 22 100 08/09/20 12:15 111 30 159/87 (111) 83 08/09/20 12:00 90 22 134/71 (92) 93 08/09/20 12:00 100 08/09/20 12:00 98.7 108 20 134/71 (92) 92 08/09/20 12:00 90 08/09/20 12:00 24 134/71 Mechanical Ventilator 100 08/09/20 12:00 24 134/71 Mechanical Ventilator 100 08/09/20 12:00 Mechanical Ventilator 08/09/20 11:59 27 160/78 Mechanical Ventilator 100 08/09/20 11:59 28 127/72 Mechanical Ventilator 100 08/09/20 11:45 116 28 160/78 (105) 80 08/09/20 11:30 77 23 127/72 (90) 94 08/09/20 11:15 69 22 109/72 (84) 94 08/09/20 11:00 23 109/72 Mechanical Ventilator 80 08/09/20 11:00 23 109/72 Mechanical Ventilator 100 08/09/20 11:00 92 22 109/72 (84) 93 08/09/20 10:50 73 22 80 08/09/20 10:45 74 22 88/53 (65) 100 08/09/20 10:30 75 22 88/55 (66) 100 Height (Feet): 5 Height (Inches): 3.00 Weight (Pounds): 162 HEENT: other - orally intubated Respiratory/Chest: other - on ventilator, [id number]=250% Cardiovascular: normal rate Abdomen: soft, non tender, other - OG tube feeding Extremities: other - generalized edema Neurologic/Psychiatric: other - sedated Laboratory Tests Test 08/10/20 03:52 08/10/20 09:03 White Blood Count 10.5 K/UL (4.8-10.8) Red Blood Count 2.41 M/UL (4.20-5.40) L Hemoglobin 6.6 G/DL (12.0-16.0) *L Hematocrit 21.8 % (37.0-47.0) L Mean Corpuscular Volume 91 FL (80-99) Mean Corpuscular Hemoglobin 27.5 PG (27.0-31.0) Mean Corpuscular Hemoglobin Concent 30.3 G/DL (32.0-36.0) L Red Cell Distribution Width 15.6 % (11.6-14.8) H Platelet Count 98 K/UL (150-450) L Mean Platelet Volume 8.0 FL (6.5-10.1) Neutrophils (%) (Auto) % (45.0-75.0) Lymphocytes (%) (Auto) % (20.0-45.0) Monocytes (%) (Auto) % (1.0-10.0) Eosinophils (%) (Auto) % (0.0-3.0) Basophils (%) (Auto) % (0.0-2.0) Differential Total Cells Counted 100 Neutrophils % (Manual) 95 % (45-75) H Lymphocytes % (Manual) 3 % (20-45) L Monocytes % (Manual) 2 % (1-10) Eosinophils % (Manual) 0 % (0-3) Basophils % (Manual) 0 % (0-2) Band Neutrophils 0 % (0-8) Platelet Estimate Decreased L Platelet Morphology Normal Hypochromasia 2+ Basophilic Stippling 1+ Anisocytosis 1+ Sodium Level 149 MMOL/L (136-145) H Potassium Level 4.7 MMOL/L (3.5-5.1) Chloride Level 115 MMOL/L (98-107) H Carbon Dioxide Level 31 MMOL/L (21-32) Anion Gap 3 mmol/L (5-15) L Blood Urea Nitrogen 35 mg/dL (7-18) H Creatinine 0.8 MG/DL (0.55-1.30) Estimat Glomerular Filtration Rate > 60 mL/min (>60) Glucose Level 138 MG/DL (74-106) H Calcium Level 8.3 MG/DL (8.5-10.1) L Total Bilirubin 0.2 MG/DL (0.2-1.0) Aspartate Amino Transf (AST/SGOT) 43 U/L (15-37) H Alanine Aminotransferase (ALT/SGPT) 119 U/L (12-78) H Alkaline Phosphatase 92 U/L (46-116) Total Protein 4.3 G/DL (6.4-8.2) L Albumin 1.5 G/DL (3.4-5.0) L Globulin 2.8 g/dL Albumin/Globulin Ratio 0.5 (1.0-2.7) L POC Whole Blood Glucose 171 MG/DL (74-106) H Current Medications Medications (Trade) Dose Ordered Sig/Marian Route PRN Reason Start Time Stop Time Status Last Admin Dose Admin Acetaminophen (Tylenol) 650 mg Q4H PRN RECTAL Temp >100.5 07/18/20 18:30 08/17/20 18:29 08/01/20 16:50 Aminocaproic Acid (Amicar) 2,000 mg Q6H ORAL 08/10/20 10:00 08/10/20 22:01 08/10/20 09:32 Chlorhexidine Gluconate (Rafaela-Hex 2%) 1 applic DAILY@1999 TOPIC 08/01/20 20:00 10/30/20 19:59 08/09/20 20:29 Dextrose (Dextrose 50%) 25 ml Q30M PRN IV Hypoglycemia 07/07/20 15:45 10/05/20 15:44 Dextrose (Dextrose 50%) 50 ml Q30M PRN IV Hypoglycemia 07/07/20 15:45 10/05/20 15:44 Famotidine (Pepcid I.v.) 20 mg Q12HR IVP 07/20/20 09:00 08/19/20 08:59 08/10/20 09:17 Fentanyl Citrate 250 ml @ 0 mls/hr Q24H PRN IV . 08/09/20 10:30 08/11/20 10:29 08/10/20 06:07 Furosemide (Lasix) 20 mg EVERY 12 HOURS IV 08/10/20 09:00 09/09/20 08:59 08/10/20 09:17 Insulin Aspart (NovoLOG) Q6HR SUBQ 07/26/20 12:00 10/24/20 11:59 08/10/20 06:05 Insulin Detemir (Levemir) 30 units Q12HR SUBQ 08/01/20 21:00 10/24/20 10:29 08/10/20 09:17 Methylprednisolone Sodium Succinate (Solu-MEDROL) 20 mg EVERY 6 HOURS IVP 07/22/20 12:00 10/19/20 08:59 08/10/20 05:48 Metoprolol Tartrate (Lopressor) 25 mg EVERY 12 HOURS NG 07/26/20 21:00 10/24/20 20:59 08/04/20 20:45 Midazolam HCl 200 ml @ 0 mls/hr Q24H PRN IV To Patient Comfort 08/09/20 06:45 08/10/20 15:14 08/10/20 06:05 Norepinephrine Bitartrate 250 ml @ 0 mls/hr Q24H IV 08/08/20 09:30 08/11/20 09:21 08/08/20 09:57 Sorbitol (sorbitoL) 45 ml Q12HR PRN ORAL Constipation 07/30/20 09:15 08/29/20 09:14 Stephon Segovia MD Aug 10, 2020 10:20
--- NOTE | 2020-08-10 10:45 | NUR ---
NURSE NOTES: First unit PRBC transfusion started at this time. Pre transfusion vitals B/P: 112/65, P:70, Temp 98.3
--- NOTE | 2020-08-10 10:50 | Pulmonology Progress Note ---
Subjective ROS Limited/Unobtainable: Yes Interval Events: S/p intubation Constitutional: Denies: fever HEENT: Repors: no symptoms Respiratory: Reports: shortness of breath Gastrointestinal/Abdominal: Reports: no symptoms Psychiatric: Reports: no symptoms Skin: Reports: no symptoms Musculoskeletal: Reports: no symptoms Allergies: Coded Allergies: No Known Allergies (Unverified , 07/07/20) Objective Last 24 Hour Vital Signs Date Time Temp Pulse Resp B/P (MAP) Pulse Ox O2 Delivery O2 Flow Rate FiO2 08/10/20 10:30 73 22 115/65 (82) 94 08/10/20 10:00 69 23 121/62 (81) 95 08/10/20 09:00 68 24 113/66 (82) 96 08/10/20 08:30 71 23 104/62 (76) 96 08/10/20 08:11 57 26 100 08/10/20 08:00 Mechanical Ventilator 08/10/20 08:00 22 109/62 Mechanical Ventilator 100 08/10/20 08:00 22 109/62 Mechanical Ventilator 100 08/10/20 08:00 100 08/10/20 08:00 98.3 71 23 113/60 (77) 97 08/10/20 07:30 69 23 110/56 (74) 98 08/10/20 07:00 22 113/67 Mechanical Ventilator 100 08/10/20 07:00 22 113/67 Mechanical Ventilator 100 08/10/20 07:00 68 22 112/62 (79) 99 08/10/20 06:30 69 22 117/69 (85) 99 08/10/20 06:15 68 23 116/60 (78) 97 08/10/20 06:07 22 113/61 Mechanical Ventilator 100 08/10/20 06:05 22 113/61 Mechanical Ventilator 100 08/10/20 06:00 69 24 113/61 (78) 96 08/10/20 05:45 66 23 116/65 (82) 97 08/10/20 05:30 69 24 111/69 (83) 97 08/10/20 05:15 73 25 114/65 (81) 97 08/10/20 05:00 82 23 118/62 (80) 98 08/10/20 04:45 91 24 117/59 (78) 96 08/10/20 04:30 96 23 123/69 (87) 95 08/10/20 04:29 98.3 98 22 130/64 (86) 94 08/10/20 04:00 80 22 128/79 (95) 98 08/10/20 04:00 100 08/10/20 04:00 Mechanical Ventilator 08/10/20 04:00 75 08/10/20 03:45 75 22 109/70 (83) 98 08/10/20 03:30 75 22 112/72 (85) 98 08/10/20 03:15 80 22 128/73 (91) 97 08/10/20 03:13 88 28 100 08/10/20 03:00 68 22 112/67 (82) 99 08/10/20 02:45 66 22 106/68 (81) 99 08/10/20 02:30 68 22 110/65 (80) 99 08/10/20 02:15 63 22 112/67 (82) 99 08/10/20 02:00 67 22 110/71 (84) 99 08/10/20 01:45 67 22 110/71 (84) 99 08/10/20 01:30 69 22 109/70 (83) 99 08/10/20 01:15 65 22 106/70 (82) 100 08/10/20 01:00 63 22 103/70 (81) 100 08/10/20 00:45 68 22 109/66 (80) 100 08/10/20 00:30 71 22 112/68 (83) 100 08/10/20 00:26 22 96/63 Mechanical Ventilator 100 08/10/20 00:15 97.6 67 22 96/63 (74) 100 08/10/20 00:00 69 08/10/20 00:00 22 109/66 Mechanical Ventilator 100 08/10/20 00:00 22 109/66 Mechanical Ventilator 100 08/10/20 00:00 Mechanical Ventilator 08/10/20 00:00 68 22 94/61 (72) 100 08/10/20 00:00 100 08/09/20 23:45 67 22 95/62 (73) 100 08/09/20 23:30 65 22 99/63 (75) 100 08/09/20 23:15 66 22 97/67 (77) 100 08/09/20 23:09 66 22 100 08/09/20 23:00 22 97/67 Mechanical Ventilator 100 08/09/20 23:00 22 97/67 Mechanical Ventilator 100 08/09/20 23:00 67 22 103/68 (80) 100 08/09/20 22:45 66 22 101/66 (78) 100 08/09/20 22:30 64 22 97/68 (78) 100 08/09/20 22:15 65 22 100/67 (78) 100 08/09/20 22:00 65 22 102/66 (78) 100 08/09/20 22:00 22 100/67 Mechanical Ventilator 100 08/09/20 22:00 22 97/67 Mechanical Ventilator 100 08/09/20 21:45 68 22 101/66 (78) 100 08/09/20 21:30 66 22 106/67 (80) 100 08/09/20 21:15 68 22 106/70 (82) 100 08/09/20 21:00 68 22 109/68 (82) 100 08/09/20 21:00 22 106/70 Mechanical Ventilator 100 08/09/20 21:00 22 106/70 Mechanical Ventilator 100 08/09/20 20:54 26 126/78 Mechanical Ventilator 100 08/09/20 20:45 86 24 126/78 (94) 100 08/09/20 20:30 77 22 95/61 (72) 100 08/09/20 20:15 74 22 95/65 (75) 100 08/09/20 20:00 Mechanical Ventilator 08/09/20 20:00 97.3 71 22 101/65 (77) 100 08/09/20 20:00 22 95/65 Mechanical Ventilator 100 08/09/20 20:00 22 95/65 Mechanical Ventilator 100 08/09/20 20:00 100 08/09/20 20:00 64 08/09/20 19:45 69 22 103/66 (78) 100 08/09/20 19:30 20 104/70 Mechanical Ventilator 100 08/09/20 19:30 68 22 109/71 (84) 100 08/09/20 19:15 68 22 104/70 (81) 100 08/09/20 19:13 68 22 100 08/09/20 19:00 67 22 98/70 (79) 100 08/09/20 19:00 22 109/71 Mechanical Ventilator 100 08/09/20 19:00 22 109/71 Mechanical Ventilator 100 08/09/20 18:45 68 22 102/69 (80) 100 08/09/20 18:30 67 22 98/63 (75) 100 08/09/20 18:15 68 22 95/64 (74) 100 08/09/20 18:00 66 22 99/61 (74) 100 08/09/20 18:00 17 120/65 Mechanical Ventilator 100 08/09/20 18:00 17 120/65 Mechanical Ventilator 75 08/09/20 17:45 67 22 101/60 (74) 100 08/09/20 17:30 70 22 100/65 (77) 100 08/09/20 17:15 93 26 114/67 (83) 98 08/09/20 17:00 80 22 102/87 (92) 96 08/09/20 17:00 18 116/70 Mechanical Ventilator 100 08/09/20 17:00 18 116/70 Mechanical Ventilator 75 08/09/20 17:00 78 23 102/87 (92) 95 08/09/20 16:49 91 30 100 08/09/20 16:45 71 22 100/64 (76) 100 08/09/20 16:30 72 22 97/64 (75) 100 08/09/20 16:15 98.5 71 22 98/65 (76) 100 08/09/20 16:00 Mechanical Ventilator 08/09/20 16:00 74 22 98/65 (76) 100 08/09/20 16:00 100 08/09/20 16:00 24 98/65 Mechanical Ventilator 100 08/09/20 16:00 22 98/65 Mechanical Ventilator 100 08/09/20 16:00 69 08/09/20 15:45 73 22 102/64 (77) 100 08/09/20 15:30 74 22 100/62 (75) 100 08/09/20 15:15 66 22 104/89 (94) 99 08/09/20 15:12 70 25 100 08/09/20 15:00 70 20 105/66 (79) 98 08/09/20 15:00 24 104/89 Mechanical Ventilator 100 08/09/20 15:00 22 104/89 Mechanical Ventilator 100 08/09/20 15:00 72 24 105/66 (79) 98 08/09/20 14:45 70 24 103/65 (78) 98 08/09/20 14:30 23 103/65 Mechanical Ventilator 100 08/09/20 14:30 75 22 100/65 (77) 96 08/09/20 14:15 71 23 103/67 (79) 98 08/09/20 14:00 74 23 103/64 (77) 98 08/09/20 14:00 98.6 71 24 103/64 (77) 98 08/09/20 14:00 22 103/64 Mechanical Ventilator 100 08/09/20 14:00 23 103/64 Mechanical Ventilator 100 08/09/20 13:45 76 24 98/63 (75) 99 08/09/20 13:30 81 21 96/61 (73) 99 08/09/20 13:15 78 22 98/65 (76) 100 08/09/20 13:00 82 22 102/64 (77) 100 08/09/20 13:00 77 24 96/61 (73) 99 08/09/20 13:00 24 98/65 Mechanical Ventilator 100 08/09/20 13:00 22 98/65 Mechanical Ventilator 100 08/09/20 12:45 86 22 103/70 (81) 100 08/09/20 12:30 111 22 126/81 (96) 95 08/09/20 12:28 121 22 100 08/09/20 12:15 111 30 159/87 (111) 83 08/09/20 12:00 90 22 134/71 (92) 93 08/09/20 12:00 100 08/09/20 12:00 98.7 108 20 134/71 (92) 92 08/09/20 12:00 90 08/09/20 12:00 24 134/71 Mechanical Ventilator 100 08/09/20 12:00 24 134/71 Mechanical Ventilator 100 08/09/20 12:00 Mechanical Ventilator 08/09/20 11:59 27 160/78 Mechanical Ventilator 100 08/09/20 11:59 28 127/72 Mechanical Ventilator 100 08/09/20 11:45 116 28 160/78 (105) 80 08/09/20 11:30 77 23 127/72 (90) 94 08/09/20 11:15 69 22 109/72 (84) 94 08/09/20 11:00 23 109/72 Mechanical Ventilator 80 08/09/20 11:00 23 109/72 Mechanical Ventilator 100 08/09/20 11:00 92 22 109/72 (84) 93 08/09/20 10:50 73 22 80 Intake and Output 08/09/20 08/10/20 19:00 07:00 Intake Total 1506.500 ml 1569.827 ml Output Total 750 ml 910 ml Balance 756.500 ml 659.827 ml Free Water 100 ml IV Total 846.500 ml 809.827 ml Tube Feeding 660 ml 660 ml Output Urine Total 750 ml 885 ml Stool Total 25 ml General Appearance: no acute distress HEENT: normocephalic Respiratory: decreased breath sounds Cardiovascular: normal peripheral pulses Abdomen: normal bowel sounds Laboratory Tests 08/10/20 03:52: White Blood Count 10.5, Red Blood Count 2.41L, Hemoglobin 6.6*L, Hematocrit 21.8L, Mean Corpuscular Volume 91, Mean Corpuscular Hemoglobin 27.5, Mean Corpuscular Hemoglobin Concent 30.3L, Red Cell Distribution Width 15.6H, Platelet Count 98L, Mean Platelet Volume 8.0, Neutrophils (%) (Auto) , Lymphocytes (%) (Auto) , Monocytes (%) (Auto) , Eosinophils (%) (Auto) , Basophils (%) (Auto) , Differential Total Cells Counted 100, Neutrophils % (Manual) 95H, Lymphocytes % (Manual) 3L, Monocytes % (Manual) 2, Eosinophils % (Manual) 0, Basophils % (Manual) 0, Band Neutrophils 0, Platelet Estimate DecreasedL, Platelet Morphology Normal, Hypochromasia 2+, Basophilic Stippling 1+, Anisocytosis 1+, Sodium Level 149H, Potassium Level 4.7, Chloride Level 115H , Carbon Dioxide Level 31, Anion Gap 3L, Blood Urea Nitrogen 35H, Creatinine 0.8, Estimat Glomerular Filtration Rate > 60, Glucose Level 138H, Calcium Level 8.3L, Total Bilirubin 0.2, Aspartate Amino Transf (AST/SGOT) 43H, Alanine Aminotransferase (ALT/SGPT) 119H, Alkaline Phosphatase 92, Total Protein 4.3L, A lbumin 1.5L, Globulin 2.8, Albumin/Globulin Ratio 0.5L 08/10/20 09:03: POC Whole Blood Glucose 171H Current Medications Medications (Trade) Dose Ordered Sig/Marian Route PRN Reason Start Time Stop Time Status Last Admin Dose Admin Acetaminophen (Tylenol) 650 mg Q4H PRN RECTAL Temp >100.5 07/18/20 18:30 08/17/20 18:29 08/01/20 16:50 Aminocaproic Acid (Amicar) 2,000 mg Q6H ORAL 08/10/20 10:00 08/10/20 22:01 08/10/20 09:32 Chlorhexidine Gluconate (Rafaela-Hex 2%) 1 applic DAILY@2000 TOPIC 08/01/20 20:00 10/30/20 19:59 08/09/20 20:29 Dextrose (Dextrose 50%) 25 ml Q30M PRN IV Hypoglycemia 07/07/20 15:45 10/05/20 15:44 Dextrose (Dextrose 50%) 50 ml Q30M PRN IV Hypoglycemia 07/07/20 15:45 10/05/20 15:44 Famotidine (Pepcid I.v.) 20 mg Q12HR IVP 07/20/20 09:00 08/19/20 08:59 08/10/20 09:17 Fentanyl Citrate 250 ml @ 0 mls/hr Q24H PRN IV . 08/09/20 10:30 08/11/20 10:29 08/10/20 06:07 Furosemide (Lasix) 20 mg EVERY 12 HOURS IV 08/10/20 09:00 09/09/20 08:59 08/10/20 09:17 Insulin Aspart (NovoLOG) Q6HR SUBQ 07/26/20 12:00 10/24/20 11:59 08/10/20 06:05 Insulin Detemir (Levemir) 30 units Q12HR SUBQ 08/01/20 21:00 10/24/20 10:29 08/10/20 09:17 Methylprednisolone Sodium Succinate (Solu-MEDROL) 20 mg EVERY 6 HOURS IVP 07/22/20 12:00 10/19/20 08:59 08/10/20 05:48 Metoprolol Tartrate (Lopressor) 25 mg EVERY 12 HOURS NG 07/26/20 21:00 10/24/20 20:59 08/04/20 20:45 Midazolam HCl 200 ml @ 0 mls/hr Q24H PRN IV To Patient Comfort 08/09/20 06:45 08/10/20 15:14 08/10/20 06:05 Norepinephrine Bitartrate 250 ml @ 0 mls/hr Q24H IV 08/08/20 09:30 08/11/20 09:21 08/08/20 09:57 Sorbitol (sorbitoL) 45 ml Q12HR PRN ORAL Constipation 07/30/20 09:15 08/29/20 09:14 Assessment/Plan Assessment/Plan 1. COVID-19 pneumonia. - COVID-19 PCR positive (07/07) - s/p remdexsivir, azithromycin - CXR (07/13) no significant change - f/u rapid COVID-19 (07/31) negative -> now off isolation 2. Hypoxemic respiratory distress - s/p decadron (07/08-07/17) - now on Solu-Medrol - intubated; on AC mode - FiO2 100 -> 80-> 100-> 80-> 100%; continue PEEP 7->8 -> 10-> 8 - >12 - episodically desaturates to 70% 3. Hypertension. - Required central line 08/01/20 -on Levophed 4. Diabetes mellitus. -on insulin sliding scale 5. DVT ppx - on Lovenox, full dose empirically; on hold now due to epistaxis - SCD in place 6. Sputum Cx shows pseudomonas and cony - continue cefepime per ID 7. Suspect bacterial infection given leukocytosis - s/p Diflucan, Cefepime, IV Vanco - s/p IV Bactrim for possible PJP 8. Pulmonary edema -Off lasix gtt Discussed with bedside RN. No further epistaxis and oral bleeding Hold Lovenox Will give FFP Transfuse prn On Levemir DW family, family discussing possible extubation and comfort care Now DNR Dw family (08/10), family requests to continue current management The care of this patient was discussed with my supervising physician Time spent for this encounter was approximately 31 minutes Milton Howard Aug 10, 2020 10:50
--- NOTE | 2020-08-10 11:00 | NUR ---
NURSE NOTES: 15 mins post start of transfusion. Pt tolerating infusion well. No s/s of reaction noted. Temp 98.0, B/P 115/63, P 70.
--- NOTE | 2020-08-10 12:15 | NUR ---
NURSE NOTES: First unit PRBC transfusion completed at this time. No transfusion reaction noted. Temp 97.9, B/P 129/72, P 73
--- NOTE | 2020-08-10 12:55 | NUR ---
NURSE NOTES: 2nd unit PRBC transfusion started at this time. Pre transfusion vitals: Temp 97.9, P 78, B/P 120/69
--- NOTE | 2020-08-10 13:00 | General Progress Note ---
Subjective ROS Limited/Unobtainable: No Allergies: Coded Allergies: No Known Allergies (Unverified , 07/07/20) Subjective no event over night on 100 % o2 on pressor tolerating TF Objective Last 24 Hour Vital Signs Date Time Temp Pulse Resp B/P (MAP) Pulse Ox O2 Delivery O2 Flow Rate FiO2 08/10/20 12:15 97.9 73 22 129/72 (91) 99 08/10/20 12:00 77 22 130/69 (89) 98 08/10/20 12:00 22 129/72 Mechanical Ventilator 100 08/10/20 12:00 23 129/72 Mechanical Ventilator 100 08/10/20 12:00 100 08/10/20 12:00 Mechanical Ventilator 08/10/20 11:59 78 08/10/20 11:45 73 24 117/64 (81) 95 08/10/20 11:30 24 115/63 Mechanical Ventilator 100 08/10/20 11:30 74 22 114/67 (83) 94 08/10/20 11:15 73 23 115/63 (80) 95 08/10/20 11:09 89 25 100 08/10/20 11:00 23 115/63 Mechanical Ventilator 100 08/10/20 11:00 23 115/63 Mechanical Ventilator 100 08/10/20 11:00 98.0 72 24 108/66 (80) 94 08/10/20 10:30 73 22 115/65 (82) 94 08/10/20 10:00 24 107/60 Mechanical Ventilator 100 08/10/20 10:00 24 107/60 Mechanical Ventilator 100 08/10/20 10:00 69 23 121/62 (81) 95 08/10/20 09:00 68 24 113/66 (82) 96 08/10/20 09:00 23 109/61 Mechanical Ventilator 100 08/10/20 09:00 23 109/61 Mechanical Ventilator 100 08/10/20 08:30 71 23 104/62 (76) 96 08/10/20 08:11 57 26 100 08/10/20 08:00 74 08/10/20 08:00 Mechanical Ventilator 08/10/20 08:00 22 109/62 Mechanical Ventilator 100 08/10/20 08:00 22 109/62 Mechanical Ventilator 100 08/10/20 08:00 100 08/10/20 08:00 98.3 71 23 113/60 (77) 97 3/11/21 07:30 69 23 110/56 (74) 98 08/10/20 07:00 22 113/67 Mechanical Ventilator 100 08/10/20 07:00 22 113/67 Mechanical Ventilator 100 08/10/20 07:00 68 22 112/62 (79) 99 08/10/20 06:30 69 22 117/69 (85) 99 08/10/20 06:15 68 23 116/60 (78) 97 08/10/20 06:07 22 113/61 Mechanical Ventilator 100 08/10/20 06:05 22 113/61 Mechanical Ventilator 100 08/10/20 06:00 69 24 113/61 (78) 96 08/10/20 05:45 66 23 116/65 (82) 97 08/10/20 05:30 69 24 111/69 (83) 97 08/10/20 05:15 73 25 114/65 (81) 97 08/10/20 05:00 82 23 118/62 (80) 98 08/10/20 04:45 91 24 117/59 (78) 96 08/10/20 04:30 96 23 123/69 (87) 95 08/10/20 04:29 98.3 98 22 130/64 (86) 94 08/10/20 04:00 80 22 128/79 (95) 98 08/10/20 04:00 100 08/10/20 04:00 Mechanical Ventilator 08/10/20 04:00 75 08/10/20 03:45 75 22 109/70 (83) 98 08/10/20 03:30 75 22 112/72 (85) 98 08/10/20 03:15 80 22 128/73 (91) 97 08/10/20 03:13 88 28 100 08/10/20 03:00 68 22 112/67 (82) 99 08/10/20 02:45 66 22 106/68 (81) 99 08/10/20 02:30 68 22 110/65 (80) 99 08/10/20 02:15 63 22 112/67 (82) 99 08/10/20 02:00 67 22 110/71 (84) 99 08/10/20 01:45 67 22 110/71 (84) 99 08/10/20 01:30 69 22 109/70 (83) 99 08/10/20 01:15 65 22 106/70 (82) 100 08/10/20 01:00 63 22 103/70 (81) 100 08/10/20 00:45 68 22 109/66 (80) 100 08/10/20 00:30 71 22 112/68 (83) 100 08/10/20 00:26 22 96/63 Mechanical Ventilator 100 08/10/20 00:15 97.6 67 22 96/63 (74) 100 08/10/20 00:00 69 08/10/20 00:00 22 109/66 Mechanical Ventilator 100 08/10/20 00:00 22 109/66 Mechanical Ventilator 100 08/10/20 00:00 Mechanical Ventilator 08/10/20 00:00 68 22 94/61 (72) 100 08/10/20 00:00 100 08/09/20 23:45 67 22 95/62 (73) 100 08/09/20 23:30 65 22 99/63 (75) 100 08/09/20 23:15 66 22 97/67 (77) 100 08/09/20 23:09 66 22 100 08/09/20 23:00 22 97/67 Mechanical Ventilator 100 08/09/20 23:00 22 97/67 Mechanical Ventilator 100 08/09/20 23:00 67 22 103/68 (80) 100 08/09/20 22:45 66 22 101/66 (78) 100 08/09/20 22:30 64 22 97/68 (78) 100 08/09/20 22:15 65 22 100/67 (78) 100 08/09/20 22:00 65 22 102/66 (78) 100 08/09/20 22:00 22 100/67 Mechanical Ventilator 100 08/09/20 22:00 22 97/67 Mechanical Ventilator 100 08/09/20 21:45 68 22 101/66 (78) 100 08/09/20 21:30 66 22 106/67 (80) 100 08/09/20 21:15 68 22 106/70 (82) 100 08/09/20 21:00 68 22 109/68 (82) 100 08/09/20 21:00 22 106/70 Mechanical Ventilator 100 08/09/20 21:00 22 106/70 Mechanical Ventilator 100 08/09/20 20:54 26 126/78 Mechanical Ventilator 100 08/09/20 20:45 86 24 126/78 (94) 100 08/09/20 20:30 77 22 95/61 (72) 100 08/09/20 20:15 74 22 95/65 (75) 100 08/09/20 20:00 Mechanical Ventilator 08/09/20 20:00 97.3 71 22 101/65 (77) 100 08/09/20 20:00 22 95/65 Mechanical Ventilator 100 08/09/20 20:00 22 95/65 Mechanical Ventilator 100 08/09/20 20:00 100 08/09/20 20:00 64 08/09/20 19:45 69 22 103/66 (78) 100 08/09/20 19:30 20 104/70 Mechanical Ventilator 100 08/09/20 19:30 68 22 109/71 (84) 100 08/09/20 19:15 68 22 104/70 (81) 100 08/09/20 19:13 68 22 100 08/09/20 19:00 67 22 98/70 (79) 100 08/09/20 19:00 22 109/71 Mechanical Ventilator 100 08/09/20 19:00 22 109/71 Mechanical Ventilator 100 08/09/20 18:45 68 22 102/69 (80) 100 08/09/20 18:30 67 22 98/63 (75) 100 08/09/20 18:15 68 22 95/64 (74) 100 08/09/20 18:00 66 22 99/61 (74) 100 08/09/20 18:00 17 120/65 Mechanical Ventilator 100 08/09/20 18:00 17 120/65 Mechanical Ventilator 75 08/09/20 17:45 67 22 101/60 (74) 100 08/09/20 17:30 70 22 100/65 (77) 100 08/09/20 17:15 93 26 114/67 (83) 98 08/09/20 17:00 80 22 102/87 (92) 96 08/09/20 17:00 18 116/70 Mechanical Ventilator 100 08/09/20 17:00 18 116/70 Mechanical Ventilator 75 08/09/20 17:00 78 23 102/87 (92) 95 08/09/20 16:49 91 30 100 08/09/20 16:45 71 22 100/64 (76) 100 08/09/20 16:30 72 22 97/64 (75) 100 08/09/20 16:15 98.5 71 22 98/65 (76) 100 08/09/20 16:00 Mechanical Ventilator 08/09/20 16:00 74 22 98/65 (76) 100 08/09/20 16:00 100 08/09/20 16:00 24 98/65 Mechanical Ventilator 100 08/09/20 16:00 22 98/65 Mechanical Ventilator 100 08/09/20 16:00 69 08/09/20 15:45 73 22 102/64 (77) 100 08/09/20 15:30 74 22 100/62 (75) 100 08/09/20 15:15 66 22 104/89 (94) 99 08/09/20 15:12 70 25 100 08/09/20 15:00 70 20 105/66 (79) 98 08/09/20 15:00 24 104/89 Mechanical Ventilator 100 08/09/20 15:00 22 104/89 Mechanical Ventilator 100 08/09/20 15:00 72 24 105/66 (79) 98 08/09/20 14:45 70 24 103/65 (78) 98 08/09/20 14:30 23 103/65 Mechanical Ventilator 100 08/09/20 14:30 75 22 100/65 (77) 96 08/09/20 14:15 71 23 103/67 (79) 98 08/09/20 14:00 74 23 103/64 (77) 98 08/09/20 14:00 98.6 71 24 103/64 (77) 98 08/09/20 14:00 22 103/64 Mechanical Ventilator 100 08/09/20 14:00 23 103/64 Mechanical Ventilator 100 08/09/20 13:45 76 24 98/63 (75) 99 08/09/20 13:30 81 21 96/61 (73) 99 08/09/20 13:15 78 22 98/65 (76) 100 08/09/20 13:00 82 22 102/64 (77) 100 08/09/20 13:00 77 24 96/61 (73) 99 08/09/20 13:00 24 98/65 Mechanical Ventilator 100 08/09/20 13:00 22 98/65 Mechanical Ventilator 100 Intake and Output 08/09/20 08/10/20 19:00 07:00 Intake Total 1506.500 ml 1569.827 ml Output Total 750 ml 910 ml Balance 756.500 ml 659.827 ml Free Water 100 ml IV Total 846.500 ml 809.827 ml Tube Feeding 660 ml 660 ml Output Urine Total 750 ml 885 ml Stool Total 25 ml Laboratory Tests 08/10/20 03:52: White Blood Count 10.5, Red Blood Count 2.41L, Hemoglobin 6.6*L, Hematocrit 21.8L, Mean Corpuscular Volume 91, Mean Corpuscular Hemoglobin 27.5, Mean Corpuscular Hemoglobin Concent 30.3L, Red Cell Distribution Width 15.6H, Platelet Count 98L, Mean Platelet Volume 8.0, Neutrophils (%) (Auto) , Lymphocytes (%) (Auto) , Monocytes (%) (Auto) , Eosinophils (%) (Auto) , Basophils (%) (Auto) , Differential Total Cells Counted 100, Neutrophils % (Manual) 95H, Lymphocytes % (Manual) 3L, Monocytes % (Manual) 2, Eosinophils % (Manual) 0, Basophils % (Manual) 0, Band Neutrophils 0, Platelet Estimate Decre asedL, Platelet Morphology Normal, Hypochromasia 2+, Basophilic Stippling 1+, Anisocytosis 1+, Sodium Level 149H, Potassium Level 4.7, Chloride Level 115H, Carbon Dioxide Level 31, Anion Gap 3L, Blood Urea Nitrogen 35H, Creatinine 0.8, Estimat Glomerular Filtration Rate > 60, Glucose Level 138H, Calcium Level 8.3L, Total Bilirubin 0.2, Aspartate Amino Transf (AST/SGOT) 43H, Alanine Aminotransferase (ALT/SGPT) 119H, Alkaline Phosphatase 92, Total Protein 4.3L, Albumin 1.5L, Globulin 2.8, Albumin/Globulin Ratio 0.5L 08/10/20 09:03: POC Whole Blood Glucose 171H 08/10/20 11:53: POC Whole Blood Glucose 186H Height (Feet): 5 Height (Inches): 3.00 Weight (Pounds): 162 General Appearance: no apparent distress EENT: normal ENT inspection Neck: supple Cardiovascular: normal rate Respiratory/Chest: decreased breath sounds Abdomen: normal bowel sounds, non tender, soft Extremities: non-tender Assessment/Plan Problem List: (1) Dysphagia ICD Codes: R13.10 - Dysphagia, unspecified SNOMED: 94447454, 625262976 (2) COVID-19 virus infection ICD Codes: U07.1 - COVID-19 SNOMED: 984810999 (3) HTN (hypertension) ICD Codes: I10 - Essential (primary) hypertension SNOMED: 40090841 (4) DMII (diabetes mellitus, type 2) ICD Codes: E11.9 - Type 2 diabetes mellitus without complications SNOMED: 83476550 Qualifiers: Qualified Codes: E11.69 - Type 2 diabetes mellitus with other specified complication Status: not improved Assessment/Plan: coverage note for dr aMlcolm intubated DM control fu pulm and cardiology recs NGTF rectal tube still on 100 %o2 DNR repeat labs pending blood transfusion poor prognosis Steffen De Luna MD Aug 10, 2020 13:00
--- NOTE | 2020-08-10 13:10 | NUR ---
NURSE NOTES: 15 mins post start of transfusion. Temp 98.3, B/P 120/72, P 71
--- NOTE | 2020-08-10 14:15 | NUR ---
NURSE NOTES: Status post 2nd blood transfusion. Pt tolerated it well. No transfusion reaction noted. Temp 98.6, B/P 123/74, P 67
--- NOTE | 2020-08-10 14:36 | Nephrology Progress Note ---
Assessment/Plan Problem List: (1) Hyponatremia (2) Hypoxia (3) Pneumonitis (4) Acute respiratory failure due to COVID-19 (5) DMII (diabetes mellitus, type 2) (6) HTN (hypertension) Assessment Hyponatremia, improved with saline infusion COVID-19 infection Pneumonia, acute respiratory failure, hypoxia Diabetes mellitus Hypertension Plan August 10: Status quo. Labs reviewed. Remains on high flow oxygen. Hemoglobin lower. Transfusion is being entertained. Patient DNR. Not much to add from renal standpoint to view. August 09: Labs reviewed. Renal parameters stable. Pulmonary status unchanged. Remains 100% FiO2. Patient DNR. Continue current support. August 08: Labs reviewed. Renal parameters stable. Discussed with LIANA Malik. Patient remains on 100% FiO2. Status was changed to DNR. Prognosis dismal. Continue current support. August 07: Labs reviewed. Renal parameters stable. Discussed with LIANA Malik. Pulmonary status remains precarious. On low-dose pressors now. Continue per consultants. Continue to monitor renal parameters and electrolytes. August 06: Labs reviewed. Renal parameters stable. Discussed with RN. Pulmonary status deteriorated. Blood pressure borderline. On FiO2 100%. Continue per pulmonary. May need pressors for BP support. Defer to immunologist. August 05: Labs reviewed. Renal parameters stable. Remains intubated on ventilator and full code. Continue per consultants. August 04: Labs reviewed. Renal parameters stable. Medication list reviewed. Continue per consultants. August 03: Labs reviewed. Discussed with RN. Patient n.p.o. at this time. Will start IV until feeding resumes. Continue to monitor electrolytes and renal parameters. Medication list reviewed. Continue per consultants. August 02: Labs reviewed. Serum sodium drifting down. Serum potassium remains higher than normal though improved since yesterday. Kayexalate via NG tube given and 250 cc 3% saline IV given continue to monitor renal parameters and electrolytes. August 01: Today's labs reviewed. Discussed with RN. Kayexalate for high potassium given. Hemoglobin lower. Defer transfusion to gusset edger. Continue to monitor electrolytes and renal parameters. July 31: No CHEM panel drawn today. Remains full code. Intubated on ventilator. FiO2 85% now. Will check lab tomorrow. Continue to monitor renal parameters. July 30: Labs reviewed. Renal parameters stable. Continue per consultants. Intubated on ventilator with FiO2 of 100%. Full code. Not much to add from renal standpoint of view at this time. July 29 labs reviewed. Serum potassium elevated. Potassium supplement was put on hold on 1 dose of Kayexalate given. Levemir dose increased. Continue to monitor renal parameters. Patient remains on 100% FiO2 on ventilator. July 28: Labs reviewed. Renal parameters stable. Remains full code. Blood sugar remains high. Levemir dose increased. Not much to add from renal standpoint of view. FiO2 now is 100%. July 27: Labs reviewed. Renal parameters stable. Low potassium addressed. FiO2 70%. Blood sugar elevated. Levemir dose is being adjusted. Continue per consultants. July 26: Labs reviewed. Renal parameters stable. Patient now intubated on ventilator in ICU. Blood sugar elevated. Levemir added. Will watch electrolytes. Main management per immunologist and ID. July 25: Labs reviewed. Renal parameters stable. Continue per consultants. July 24: Labs reviewed. Renal parameters stable. Continue per pulmonary. Medication list reviewed. July 23: No labs drawn today. Medication list reviewed. Continue per treasury consultant. Patient full code. July 22: Labs reviewed. Stable renal parameters. Continue per consultants. July 21: No CHEM panel drawn today. Stable from renal standpoint of view. Blood pressure stable. July 20: IV changed to D5W 50 cc an hour. Renal parameters stable. Continue per consultants. July 19: Pulmonary status remains unstable. Stable from renal standpoint of view. July 18: Labs reviewed. Stable renal parameters and electrolytes. Continue per consultants. July 17: No labs drawn today. Remains stable from renal standpoint today. July 16: No labs drawn today. Continue per consultants. Stable from renal standpoint of view. July 15: Labs reviewed. Renal parameters stable. July 14: No labs from today. Continue per current management. Check labs tomorrow. July 13: No labs drawn today. Stable from renal standpoint of view. July 12: Today's labs pending. Medication list reviewed. Continue per current management and consultants. July 11: Labs reviewed. Renal parameters stable. July 10: Labs reviewed. Renal parameters electrolytes stable. Continue per consultants. July 09: Labs reviewed. Renal parameters and electrolytes stable. Continue per ID and pulmonary. Subjective ROS Limited/Unobtainable: Yes Objective Objective Last 24 Hour Vital Signs Date Time Temp Pulse Resp B/P (MAP) Pulse Ox O2 Delivery O2 Flow Rate FiO2 08/10/20 14:15 98.6 62 24 123/74 (90) 94 08/10/20 14:00 66 23 123/74 (90) 94 08/10/20 13:45 67 23 128/75 (92) 95 08/10/20 13:30 72 23 126/68 (87) 96 08/10/20 13:00 78 22 115/68 (84) 97 08/10/20 12:30 70 22 123/69 (87) 98 08/10/20 12:15 97.9 73 22 129/72 (91) 99 08/10/20 12:00 77 22 130/69 (89) 98 08/10/20 12:00 22 129/72 Mechanical Ventilator 100 08/10/20 12:00 23 129/72 Mechanical Ventilator 100 08/10/20 12:00 100 08/10/20 12:00 Mechanical Ventilator 08/10/20 11:59 78 08/10/20 11:45 73 24 117/64 (81) 95 08/10/20 11:30 24 115/63 Mechanical Ventilator 100 08/10/20 11:30 74 22 114/67 (83) 94 08/10/20 11:15 73 23 115/63 (80) 95 08/10/20 11:09 89 25 100 08/10/20 11:00 23 115/63 Mechanical Ventilator 100 08/10/20 11:00 23 115/63 Mechanical Ventilator 100 08/10/20 11:00 98.0 72 24 108/66 (80) 94 08/10/20 10:30 73 22 115/65 (82) 94 08/10/20 10:00 24 107/60 Mechanical Ventilator 100 08/10/20 10:00 24 107/60 Mechanical Ventilator 100 08/10/20 10:00 69 23 121/62 (81) 95 08/10/20 09:00 68 24 113/66 (82) 96 08/10/20 09:00 23 109/61 Mechanical Ventilator 100 08/10/20 09:00 23 109/61 Mechanical Ventilator 100 08/10/20 08:30 71 23 104/62 (76) 96 08/10/20 08:11 57 26 100 08/10/20 08:00 74 08/10/20 08:00 Mechanical Ventilator 08/10/20 08:00 22 109/62 Mechanical Ventilator 100 08/10/20 08:00 22 109/62 Mechanical Ventilator 100 08/10/20 08:00 100 08/10/20 08:00 98.3 71 23 113/60 (77) 97 08/10/20 07:30 69 23 110/56 (74) 98 08/10/20 07:00 22 113/67 Mechanical Ventilator 100 08/10/20 07:00 22 113/67 Mechanical Ventilator 100 08/10/20 07:00 68 22 112/62 (79) 99 08/10/20 06:30 69 22 117/69 (85) 99 08/10/20 06:15 68 23 116/60 (78) 97 08/10/20 06:07 22 113/61 Mechanical Ventilator 100 08/10/20 06:05 22 113/61 Mechanical Ventilator 100 08/10/20 06:00 69 24 113/61 (78) 96 08/10/20 05:45 66 23 116/65 (82) 97 08/10/20 05:30 69 24 111/69 (83) 97 08/10/20 05:15 73 25 114/65 (81) 97 08/10/20 05:00 82 23 118/62 (80) 98 08/10/20 04:45 91 24 117/59 (78) 96 08/10/20 04:30 96 23 123/69 (87) 95 08/10/20 04:29 98.3 98 22 130/64 (86) 94 08/10/20 04:00 80 22 128/79 (95) 98 08/10/20 04:00 100 08/10/20 04:00 Mechanical Ventilator 08/10/20 04:00 75 08/10/20 03:45 75 22 109/70 (83) 98 08/10/20 03:30 75 22 112/72 (85) 98 08/10/20 03:15 80 22 128/73 (91) 97 08/10/20 03:13 88 28 100 08/10/20 03:00 68 22 112/67 (82) 99 08/10/20 02:45 66 22 106/68 (81) 99 08/10/20 02:30 68 22 110/65 (80) 99 08/10/20 02:15 63 22 112/67 (82) 99 08/10/20 02:00 67 22 110/71 (84) 99 08/10/20 01:45 67 22 110/71 (84) 99 08/10/20 01:30 69 22 109/70 (83) 99 08/10/20 01:15 65 22 106/70 (82) 100 08/10/20 01:00 63 22 103/70 (81) 100 08/10/20 00:45 68 22 109/66 (80) 100 08/10/20 00:30 71 22 112/68 (83) 100 08/10/20 00:26 22 96/63 Mechanical Ventilator 100 08/10/20 00:15 97.6 67 22 96/63 (74) 100 08/10/20 00:00 69 08/10/20 00:00 22 109/66 Mechanical Ventilator 100 08/10/20 00:00 22 109/66 Mechanical Ventilator 100 08/10/20 00:00 Mechanical Ventilator 08/10/20 00:00 68 22 94/61 (72) 100 08/10/20 00:00 100 08/09/20 23:45 67 22 95/62 (73) 100 08/09/20 23:30 65 22 99/63 (75) 100 08/09/20 23:15 66 22 97/67 (77) 100 08/09/20 23:09 66 22 100 08/09/20 23:00 22 97/67 Mechanical Ventilator 100 08/09/20 23:00 22 97/67 Mechanical Ventilator 100 08/09/20 23:00 67 22 103/68 (80) 100 08/09/20 22:45 66 22 101/66 (78) 100 08/09/20 22:30 64 22 97/68 (78) 100 08/09/20 22:15 65 22 100/67 (78) 100 08/09/20 22:00 65 22 102/66 (78) 100 08/09/20 22:00 22 100/67 Mechanical Ventilator 100 08/09/20 22:00 22 97/67 Mechanical Ventilator 100 08/09/20 21:45 68 22 101/66 (78) 100 08/09/20 21:30 66 22 106/67 (80) 100 08/09/20 21:15 68 22 106/70 (82) 100 08/09/20 21:00 68 22 109/68 (82) 100 08/09/20 21:00 22 106/70 Mechanical Ventilator 100 08/09/20 21:00 22 106/70 Mechanical Ventilator 100 08/09/20 20:54 26 126/78 Mechanical Ventilator 100 08/09/20 20:45 86 24 126/78 (94) 100 08/09/20 20:30 77 22 95/61 (72) 100 08/09/20 20:15 74 22 95/65 (75) 100 08/09/20 20:00 Mechanical Ventilator 08/09/20 20:00 97.3 71 22 101/65 (77) 100 08/09/20 20:00 22 95/65 Mechanical Ventilator 100 08/09/20 20:00 22 95/65 Mechanical Ventilator 100 08/09/20 20:00 100 08/09/20 20:00 64 08/09/20 19:45 69 22 103/66 (78) 100 08/09/20 19:30 20 104/70 Mechanical Ventilator 100 08/09/20 19:30 68 22 109/71 (84) 100 08/09/20 19:15 68 22 104/70 (81) 100 08/09/20 19:13 68 22 100 08/09/20 19:00 67 22 98/70 (79) 100 08/09/20 19:00 22 109/71 Mechanical Ventilator 100 08/09/20 19:00 22 109/71 Mechanical Ventilator 100 08/09/20 18:45 68 22 102/69 (80) 100 08/09/20 18:30 67 22 98/63 (75) 100 08/09/20 18:15 68 22 95/64 (74) 100 08/09/20 18:00 66 22 99/61 (74) 100 08/09/20 18:00 17 120/65 Mechanical Ventilator 100 08/09/20 18:00 17 120/65 Mechanical Ventilator 75 08/09/20 17:45 67 22 101/60 (74) 100 08/09/20 17:30 70 22 100/65 (77) 100 08/09/20 17:15 93 26 114/67 (83) 98 08/09/20 17:00 80 22 102/87 (92) 96 08/09/20 17:00 18 116/70 Mechanical Ventilator 100 08/09/20 17:00 18 116/70 Mechanical Ventilator 75 08/09/20 17:00 78 23 102/87 (92) 95 08/09/20 16:49 91 30 100 08/09/20 16:45 71 22 100/64 (76) 100 08/09/20 16:30 72 22 97/64 (75) 100 08/09/20 16:15 98.5 71 22 98/65 (76) 100 08/09/20 16:00 Mechanical Ventilator 08/09/20 16:00 74 22 98/65 (76) 100 08/09/20 16:00 100 08/09/20 16:00 24 98/65 Mechanical Ventilator 100 08/09/20 16:00 22 98/65 Mechanical Ventilator 100 08/09/20 16:00 69 08/09/20 15:45 73 22 102/64 (77) 100 08/09/20 15:30 74 22 100/62 (75) 100 08/09/20 15:15 66 22 104/89 (94) 99 08/09/20 15:12 70 25 100 08/09/20 15:00 70 20 105/66 (79) 98 08/09/20 15:00 24 104/89 Mechanical Ventilator 100 08/09/20 15:00 22 104/89 Mechanical Ventilator 100 08/09/20 15:00 72 24 105/66 (79) 98 08/09/20 14:45 70 24 103/65 (78) 98 Intake and Output 08/09/20 08/10/20 19:00 07:00 Intake Total 1506.500 ml 1569.827 ml Output Total 750 ml 910 ml Balance 756.500 ml 659.827 ml Free Water 100 ml IV Total 846.500 ml 809.827 ml Tube Feeding 660 ml 660 ml Output Urine Total 750 ml 885 ml Stool Total 25 ml Current Medications Medications (Trade) Dose Ordered Sig/Marian Route PRN Reason Start Time Stop Time Status Last Admin Dose Admin Acetaminophen (Tylenol) 650 mg Q4H PRN RECTAL Temp >100.5 07/18/20 18:30 08/17/20 18:29 08/01/20 16:50 Aminocaproic Acid (Amicar) 2,000 mg Q6H ORAL 08/10/20 10:00 08/10/20 22:01 08/10/20 09:32 Chlorhexidine Gluconate (Rafaela-Hex 2%) 1 applic DAILY@2000 TOPIC 08/01/20 20:00 10/30/20 19:59 08/09/20 20:29 Dextrose (Dextrose 50%) 25 ml Q30M PRN IV Hypoglycemia 07/07/20 15:45 10/05/20 15:44 Dextrose (Dextrose 50%) 50 ml Q30M PRN IV Hypoglycemia 07/07/20 15:45 10/05/20 15:44 Famotidine (Pepcid I.v.) 20 mg Q12HR IVP 07/20/20 09:00 08/19/20 08:59 08/10/20 09:17 Fentanyl Citrate 250 ml @ 0 mls/hr Q24H PRN IV . 08/09/20 10:30 08/11/20 10:29 08/10/20 06:07 Furosemide (Lasix) 20 mg EVERY 12 HOURS IV 08/10/20 09:00 09/09/20 08:59 08/10/20 09:17 Insulin Aspart (NovoLOG) Q6HR SUBQ 07/26/20 12:00 10/24/20 11:59 08/10/20 12:16 Insulin Detemir (Levemir) 30 units Q12HR SUBQ 08/01/20 21:00 10/24/20 10:29 08/10/20 09:17 Methylprednisolone Sodium Succinate (Solu-MEDROL) 20 mg EVERY 6 HOURS IVP 07/22/20 12:00 10/19/20 08:59 08/10/20 11:29 Metoprolol Tartrate (Lopressor) 25 mg EVERY 12 HOURS NG 07/26/20 21:00 10/24/20 20:59 08/04/20 20:45 Midazolam HCl 200 ml @ 0 mls/hr Q24H PRN IV To Patient Comfort 08/09/20 06:45 08/10/20 15:14 08/10/20 11:30 Norepinephrine Bitartrate 250 ml @ 0 mls/hr Q24H IV 08/08/20 09:30 08/11/20 09:21 08/08/20 09:57 Sorbitol (sorbitoL) 45 ml Q12HR PRN ORAL Constipation 07/30/20 09:15 08/29/20 09:14 Laboratory Tests 08/10/20 03:52: White Blood Count 10.5, Red Blood Count 2.41L, Hemoglobin 6.6*L, Hematocrit 21.8L, Mean Corpuscular Volume 91, Mean Corpuscular Hemoglobin 27.5, Mean Corpuscular Hemoglobin Concent 30.3L, Red Cell Distribution Width 15.6H, Platelet Count 98L, Mean Platelet Volume 8.0, Neutrophils (%) (Auto) , Lymphocytes (%) (Auto) , Monocytes (%) (Auto) , Eosinophils (%) (Auto) , Basophils (%) (Auto) , Differential Total Cells Counted 100, Neutrophils % (Manual) 95H, Lymphocytes % (Manual) 3L, Monocytes % (Manual) 2, Eosinophils % (Manual) 0, Basophils % (Manual) 0, Band Neutrophils 0, Platelet Estimate DecreasedL, Platelet Morphology Normal, Hypochromasia 2+, Basophilic Stippling 1+, Anisocytosis 1+, Sodium Level 149H, Potassium Level 4.7, Chloride Level 115H , Carbon Dioxide Level 31, Anion Gap 3L, Blood Urea Nitrogen 35H, Creatinine 0.8, Estimat Glomerular Filtration Rate > 60, Glucose Level 138H, Calcium Level 8.3L, Total Bilirubin 0.2, Aspartate Amino Transf (AST/SGOT) 43H, Alanine Aminotransferase (ALT/SGPT) 119H, Alkaline Phosphatase 92, Total Protein 4.3L, Albumin 1.5L, Globulin 2.8, Albumin/Globulin Ratio 0.5L 08/10/20 09:03: POC Whole Blood Glucose 171H 08/10/20 11:53: POC Whole Blood Glucose 186H Height (Feet): 5 Height (Inches): 3.00 Weight (Pounds): 162 General Appearance: no apparent distress EENT: other - Intubated on ventilator Cardiovascular: normal rate Respiratory/Chest: decreased breath sounds Abdomen: distended Objective No change Anurag Bridges MD Aug 10, 2020 14:36
[2020-08-10] MEDS ORDERED: Midazolam HCl 50mg/10ml vial 100 MG in NS 180 ML IV PRN (16:00)
--- NOTE | 2020-08-10 16:15 | NUR ---
NURSE NOTES: Pt fully cleaned and linens changed. Rectal tube functioning properly, with no leakage noted. Triad cream applied to inner thigh blisters. Orally and endotracheally suctioned. Oral care done. Bloody secretions still noted from the mouth. Moisturizing ointment applied to lips.
--- NOTE | 2020-08-10 17:50 | NUR ---
NURSE NOTES: BS 216; 3 units Novolog insulin given, per sliding scale.
--- NOTE | 2020-08-10 19:11 | NUR ---
NURSE HAND-OFF REPORT: Latest Vital Signs: Temperature 98.6 , Pulse 60 , B/P 120 /77 , Respiratory Rate 23 , O2 SAT 99 , Mechanical Ventilator, FiO2 100% . Vital Sign Comment: EKG Rhythm: Sinus Rhythm Rhythm change?: N MD Notified?: N - MD Response: Latest Plaza Fall Score: 50 Fall Risk: High Risk Safety Measures: Call light Within Reach, Bed Alarm Zone 3, Side Rails Side Rails x2, Bed position Low and Locked. Fall Precautions: Yellow Socks Yellow Gown Door Sign Patient Fall Education Report given to LIANA Echeverria.
--- NOTE | 2020-08-10 19:15 | NUR ---
Received report from LIANA Malik and assumed care of patient. Pt remains intubated, sedated and on 100% Fio2. VSS and patient is in no acute distress. TF infusing without difficulty. Rectal tube remains in place. Will continue to monitor the patient.
[2020-08-10] MEDS: Dyna-Hex 2% Top Sol 2oz TOPIC SCH (20:21)
--- NOTE | 2020-08-10 20:30 | NUR ---
Assessment complete. Patient continues to have bloody oral secretions. Pt given PRBC's on day shift. Patient lungs remain rhonchorous, heart rate dips into 40's on occasion and then improves back into the 50-60's. Patient sustaining own BP without medication intervention. pt afebrile. Patient in no acute distress. Will continue to monitor. Oral care and repositioning completed.
--- NOTE | 2020-08-10 22:30 | NUR ---
Pt remains stable and in NAD. Continues bloody secretions. patient status is unchanged. Will continue to monitor.
[2020-08-11] VITALS (70 sets, daily range): BP systolic 104–146; BP diastolic 61–87
--- NOTE | 2020-08-11 00:23 | NUR ---
Midnight assessment complete, see charting for details. patient in NAD and VSS. Oral care and repositioning complete. BG 215, covered with insulin per orders. Will continue to monitor.
--- NOTE | 2020-08-11 02:00 | NUR ---
Pt repositioned and oral care provided. Pt began to have more pronounced bradycardia as night has progressed with occasional sinus pauses. Patient continues to maintain BP without additional support. Patient continues with bloody oral secretions. Complete bath given and patient repositioned. Patient does not appear to be in any acute distress, but remains critical and guarded in her condition. Will continue to monitor.
--- NOTE | 2020-08-11 04:25 | NUR ---
Patient repositioned and oral care provided. Pt continues to have bradycardia with short pauses. Heart rate as low as 39, but immediately recovers to 40's-50's. BP remains stable. Will continue to monitor.
[2020-08-11] MEDS: Versed 100mg/NS 200ml 200 ML IV PRN ×4 (04:29→21:10)
[2020-08-11] MEDS: Solu-MEDROL 40mg Inj IVP SCH ×3 (05:53→17:11)
[2020-08-11] MEDS: NovoLOG Insulin Flexpen SUBQ SCH ×4 (05:54→17:09)
--- NOTE | 2020-08-11 06:28 | Hematology/Onc Progress Note ---
Assessment/Plan Assessment/Plan # Anemia due to bleeding she has in mouth, does have excoriation in the back of her mouth that has been oozing --> jones Rn, dosing amicar for 24hr on 08/10 --> consider further ent eval if bleeding does not stop --> no e/o hemolysis is noted --> transfuse prn --> hgb 7-->6.8 --> 2 units prbc 08/11 # Leukocytosis due to COVID-19 virus infection --> now improved, imaging noted --> was on iso --> wean vent as needed # HTN (hypertension) --> sbp goal <140 # DMII (diabetes mellitus, type 2) --> iss, accuchecks qac and qhs --> per end # Resp failure --> intubated, s/p vent # Dysphagia s/p NGTF # rectal tube # DNR # Poor prognosis Appreciate consultation and jones Garcia Subjective HEENT: Denies: no symptoms, eye pain, blurred vision, tearing, double vision, ear pain, ear discharge, nose pain, nose congestion, throat pain, throat swelling, mouth pain, mouth swelling, other Cardiovascular: Denies: no symptoms, chest pain, edema, irregular heart rate, lightheadedness, palpitations, syncope, other Genitourinary: Denies: no symptoms, burning, discharge, frequency, flank pain, hematuria, incontinence, pain, urgency, other Neurologic/Psychiatric: Denies: no symptoms, anxiety, depressed, emotional problems, headache, numbness, paresthesia, pre-existing deficit, seizure, tingling, tremors, weakness, other Endocrine: Denies: no symptoms, excessive sweating, flushing, intolerance to cold, intolerance to heat, increased hunger, increased thirst, increased urine, unexplained weight gain, unexplained weight loss, other Allergies: Coded Allergies: No Known Allergies (Unverified , 07/07/20) Subjective 08/11 less bleeding, icu, vent, jones Echeverria last dose of amicar was given Objective Objective Current Medications Medications (Trade) Dose Ordered Sig/Marian Route PRN Reason Start Time Stop Time Status Last Admin Dose Admin Acetaminophen (Tylenol) 650 mg Q4H PRN RECTAL Temp >100.5 07/18/20 18:30 08/17/20 18:29 08/01/20 16:50 Chlorhexidine Gluconate (Rafaela-Hex 2%) 1 applic DAILY@2000 TOPIC 08/01/20 20:00 10/30/20 19:59 08/10/20 20:21 Dextrose (Dextrose 50%) 25 ml Q30M PRN IV Hypoglycemia 07/07/20 15:45 10/05/20 15:44 Dextrose (Dextrose 50%) 50 ml Q30M PRN IV Hypoglycemia 07/07/20 15:45 10/05/20 15:44 Famotidine (Pepcid I.v.) 20 mg Q12HR IVP 07/20/20 09:00 08/19/20 08:59 08/10/20 20:21 Fentanyl Citrate 250 ml @ 0 mls/hr Q24H PRN IV . 08/09/20 10:30 08/11/20 10:29 08/10/20 23:29 Furosemide (Lasix) 20 mg EVERY 12 HOURS IV 08/10/20 09:00 09/09/20 08:59 08/10/20 20:22 Insulin Aspart (NovoLOG) Q6HR SUBQ 07/26/20 12:00 10/24/20 11:59 08/11/20 05:54 Insulin Detemir (Levemir) 30 units Q12HR SUBQ 08/01/20 21:00 10/24/20 10:29 08/10/20 20:36 Methylprednisolone Sodium Succinate (Solu-MEDROL) 20 mg EVERY 6 HOURS IVP 07/22/20 12:00 10/19/20 08:59 08/11/20 05:53 Metoprolol Tartrate (Lopressor) 25 mg EVERY 12 HOURS NG 07/26/20 21:00 10/24/20 20:59 08/04/20 20:45 Midazolam HCl 200 ml @ 0 mls/hr Q24H PRN IV To Patient Comfort 08/10/20 15:51 08/12/20 15:50 08/11/20 04:29 Norepinephrine Bitartrate 250 ml @ 0 mls/hr Q24H IV 08/08/20 09:30 08/11/20 09:21 08/08/20 09:57 Sorbitol (sorbitoL) 45 ml Q12HR PRN ORAL Constipation 07/30/20 09:15 08/29/20 09:14 Last 24 Hour Vital Signs Date Time Temp Pulse Resp B/P (MAP) Pulse Ox O2 Delivery O2 Flow Rate FiO2 08/11/20 06:00 48 22 130/71 (90) 100 08/11/20 06:00 22 131/76 Mechanical Ventilator 100 08/11/20 06:00 22 131/76 Mechanical Ventilator 100 08/11/20 05:45 54 14 131/76 (94) 100 08/11/20 05:30 65 0 126/63 (84) 100 08/11/20 05:15 75 21 105/87 (93) 100 08/11/20 05:12 53 22 100 08/11/20 05:00 52 22 120/67 (84) 100 08/11/20 05:00 22 105/87 Mechanical Ventilator 100 08/11/20 05:00 22 105/87 Mechanical Ventilator 100 08/11/20 04:45 57 22 113/63 (80) 100 08/11/20 04:30 53 22 114/70 (85) 100 08/11/20 04:29 22 118/66 Mechanical Ventilator 100 08/11/20 04:15 56 22 118/66 (83) 100 08/11/20 04:00 Mechanical Ventilator 08/11/20 04:00 22 118/66 Mechanical Ventilator 100 08/11/20 04:00 22 118/66 Mechanical Ventilator 100 08/11/20 04:00 96.2 46 22 115/70 (85) 100 08/11/20 04:00 100 08/11/20 04:00 56 08/11/20 03:45 48 22 127/74 (91) 100 08/11/20 03:30 50 22 118/67 (84) 100 08/11/20 03:15 45 22 121/73 (89) 100 08/11/20 03:06 47 22 100 08/11/20 03:00 22 121/73 Mechanical Ventilator 100 08/11/20 03:00 22 121/73 Mechanical Ventilator 100 08/11/20 03:00 44 22 122/73 (89) 100 08/11/20 02:45 47 22 128/71 (90) 100 08/11/20 02:30 54 23 141/77 (98) 98 08/11/20 02:15 57 22 133/76 (95) 100 08/11/20 02:00 51 22 123/69 (87) 100 08/11/20 02:00 22 133/76 Mechanical Ventilator 100 08/11/20 02:00 22 133/76 Mechanical Ventilator 100 08/11/20 01:45 53 22 124/65 (84) 100 08/11/20 01:30 49 22 123/69 (87) 100 08/11/20 01:15 50 22 127/68 (87) 100 08/11/20 01:08 51 22 100 08/11/20 01:00 53 22 122/70 (87) 100 08/11/20 01:00 22 124/65 Mechanical Ventilator 100 08/11/20 01:00 22 124/65 Mechanical Ventilator 100 08/11/20 00:45 57 22 114/68 (83) 99 08/11/20 00:30 58 22 121/67 (85) 99 08/11/20 00:15 60 22 125/65 (85) 99 08/11/20 00:00 22 125/65 Mechanical Ventilator 100 08/11/20 00:00 22 125/65 Mechanical Ventilator 100 08/11/20 00:00 Mechanical Ventilator 08/11/20 00:00 54 08/11/20 00:00 96.5 64 22 136/69 (91) 98 08/11/20 00:00 100 08/10/20 23:45 55 22 125/77 (93) 99 08/10/20 23:30 56 22 126/72 (90) 99 08/10/20 23:29 22 128/71 Mechanical Ventilator 100 08/10/20 23:15 53 22 128/71 (90) 99 08/10/20 23:04 53 22 100 08/10/20 23:00 22 128/71 Mechanical Ventilator 100 08/10/20 23:00 22 128/71 Mechanical Ventilator 100 08/10/20 23:00 57 22 126/67 (86) 99 08/10/20 22:53 22 131/79 Mechanical Ventilator 100 08/10/20 22:45 54 22 131/79 (96) 99 08/10/20 22:30 56 22 116/68 (84) 99 08/10/20 22:15 60 22 124/68 (86) 99 08/10/20 22:00 60 22 124/73 (90) 100 08/10/20 22:00 22 124/68 Mechanical Ventilator 100 08/10/20 22:00 22 124/68 Mechanical Ventilator 100 08/10/20 21:45 55 22 125/71 (89) 99 08/10/20 21:30 54 22 121/72 (88) 99 08/10/20 21:15 69 22 137/77 (97) 99 08/10/20 21:07 62 22 100 08/10/20 21:00 51 22 130/73 (92) 99 08/10/20 21:00 22 137/77 Mechanical Ventilator 100 08/10/20 21:00 22 137/77 Mechanical Ventilator 100 08/10/20 20:45 55 22 130/77 (94) 99 08/10/20 20:30 56 22 131/78 (95) 99 08/10/20 20:15 57 22 128/76 (93) 98 08/10/20 20:00 59 08/10/20 20:00 Mechanical Ventilator 08/10/20 20:00 100 08/10/20 20:00 22 128/76 Mechanical Ventilator 100 08/10/20 20:00 22 128/76 Mechanical Ventilator 100 08/10/20 20:00 98.8 57 22 125/74 (91) 99 08/10/20 19:45 56 22 132/74 (93) 99 08/10/20 19:30 60 22 124/72 (89) 99 08/10/20 19:15 70 22 131/73 (92) 99 08/10/20 19:04 60 23 100 08/10/20 19:00 23 120/77 Mechanical Ventilator 100 08/10/20 19:00 22 120/77 Mechanical Ventilator 100 08/10/20 19:00 59 21 120/77 (91) 97 08/10/20 18:00 23 129/76 Mechanical Ventilator 100 08/10/20 18:00 23 129/76 Mechanical Ventilator 100 08/10/20 18:00 60 22 129/76 (93) 99 08/10/20 17:30 68 22 132/67 (88) 100 08/10/20 17:14 23 123/70 Mechanical Ventilator 100 08/10/20 17:00 23 123/70 Mechanical Ventilator 100 08/10/20 17:00 23 123/70 Mechanical Ventilator 100 08/10/20 17:00 71 22 123/70 (87) 99 08/10/20 16:30 59 22 121/70 (87) 97 08/10/20 16:02 64 08/10/20 16:00 Mechanical Ventilator 08/10/20 16:00 22 114/71 Mechanical Ventilator 100 08/10/20 16:00 22 113/72 Mechanical Ventilator 100 08/10/20 16:00 100 08/10/20 16:00 98.6 60 22 114/71 (85) 97 08/10/20 15:30 60 22 122/70 (87) 98 08/10/20 15:13 64 25 100 08/10/20 15:00 22 120/68 Mechanical Ventilator 100 08/10/20 15:00 22 120/68 Mechanical Ventilator 100 08/10/20 15:00 62 21 127/68 (87) 98 08/10/20 14:45 23 120/69 Mechanical Ventilator 100 08/10/20 14:15 98.6 62 24 123/74 (90) 94 08/10/20 14:00 22 130/80 Mechanical Ventilator 100 08/10/20 14:00 22 130/80 Mechanical Ventilator 100 08/10/20 14:00 66 23 123/74 (90) 94 08/10/20 13:45 67 23 128/75 (92) 95 08/10/20 13:30 72 23 126/68 (87) 96 08/10/20 13:00 78 22 115/68 (84) 97 08/10/20 13:00 23 120/72 Mechanical Ventilator 100 08/10/20 13:00 23 120/72 Mechanical Ventilator 100 08/10/20 12:30 70 22 123/69 (87) 98 08/10/20 12:15 97.9 73 22 129/72 (91) 99 08/10/20 12:00 77 22 130/69 (89) 98 08/10/20 12:00 22 129/72 Mechanical Ventilator 100 08/10/20 12:00 23 129/72 Mechanical Ventilator 100 08/10/20 12:00 100 08/10/20 12:00 Mechanical Ventilator 08/10/20 11:59 78 08/10/20 11:45 73 24 117/64 (81) 95 08/10/20 11:30 24 115/63 Mechanical Ventilator 100 08/10/20 11:30 74 22 114/67 (83) 94 08/10/20 11:15 73 23 115/63 (80) 95 08/10/20 11:09 89 25 100 08/10/20 11:00 23 115/63 Mechanical Ventilator 100 08/10/20 11:00 23 115/63 Mechanical Ventilator 100 08/10/20 11:00 98.0 72 24 108/66 (80) 94 08/10/20 10:30 73 22 115/65 (82) 94 08/10/20 10:00 24 107/60 Mechanical Ventilator 100 08/10/20 10:00 24 107/60 Mechanical Ventilator 100 08/10/20 10:00 69 23 121/62 (81) 95 08/10/20 09:00 68 24 113/66 (82) 96 08/10/20 09:00 23 109/61 Mechanical Ventilator 100 08/10/20 09:00 23 109/61 Mechanical Ventilator 100 08/10/20 08:30 71 23 104/62 (76) 96 08/10/20 08:11 57 26 100 08/10/20 08:00 74 08/10/20 08:00 Mechanical Ventilator 08/10/20 08:00 22 109/62 Mechanical Ventilator 100 08/10/20 08:00 22 109/62 Mechanical Ventilator 100 08/10/20 08:00 100 08/10/20 08:00 98.3 71 23 113/60 (77) 97 08/10/20 07:30 69 23 110/56 (74) 98 08/10/20 07:00 22 113/67 Mechanical Ventilator 100 08/10/20 07:00 22 113/67 Mechanical Ventilator 100 08/10/20 07:00 68 22 112/62 (79) 99 08/10/20 06:30 69 22 117/69 (85) 99 08/10/20 06:15 68 23 116/60 (78) 97 08/10/20 06:07 22 113/61 Mechanical Ventilator 100 08/10/20 06:05 22 113/61 Mechanical Ventilator 100 08/10/20 06:00 69 24 113/61 (78) 96 08/10/20 05:45 66 23 116/65 (82) 97 08/10/20 05:30 69 24 111/69 (83) 97 08/10/20 05:15 73 25 114/65 (81) 97 08/10/20 05:00 82 23 118/62 (80) 98 08/10/20 04:45 91 24 117/59 (78) 96 08/10/20 04:30 96 23 123/69 (87) 95 08/10/20 04:29 98.3 98 22 130/64 (86) 94 08/10/20 04:00 80 22 128/79 (95) 98 08/10/20 04:00 100 08/10/20 04:00 Mechanical Ventilator 08/10/20 04:00 75 08/10/20 03:45 75 22 109/70 (83) 98 08/10/20 03:30 75 22 112/72 (85) 98 08/10/20 03:15 80 22 128/73 (91) 97 08/10/20 03:13 88 28 100 08/10/20 03:00 68 22 112/67 (82) 99 08/10/20 02:45 66 22 106/68 (81) 99 08/10/20 02:30 68 22 110/65 (80) 99 08/10/20 02:15 63 22 112/67 (82) 99 08/10/20 02:00 67 22 110/71 (84) 99 08/10/20 01:45 67 22 110/71 (84) 99 08/10/20 01:30 69 22 109/70 (83) 99 08/10/20 01:15 65 22 106/70 (82) 100 08/10/20 01:00 63 22 103/70 (81) 100 08/10/20 00:45 68 22 109/66 (80) 100 08/10/20 00:30 71 22 112/68 (83) 100 08/10/20 00:26 22 96/63 Mechanical Ventilator 100 08/10/20 00:15 97.6 67 22 96/63 (74) 100 08/10/20 00:00 69 08/10/20 00:00 22 109/66 Mechanical Ventilator 100 08/10/20 00:00 22 109/66 Mechanical Ventilator 100 08/10/20 00:00 Mechanical Ventilator 08/10/20 00:00 68 22 94/61 (72) 100 08/10/20 00:00 100 08/09/20 23:45 67 22 95/62 (73) 100 08/09/20 23:30 65 22 99/63 (75) 100 08/09/20 23:15 66 22 97/67 (77) 100 08/09/20 23:09 66 22 100 08/09/20 23:00 22 97/67 Mechanical Ventilator 100 08/09/20 23:00 22 97/67 Mechanical Ventilator 100 08/09/20 23:00 67 22 103/68 (80) 100 08/09/20 22:45 66 22 101/66 (78) 100 08/09/20 22:30 64 22 97/68 (78) 100 08/09/20 22:15 65 22 100/67 (78) 100 08/09/20 22:00 65 22 102/66 (78) 100 08/09/20 22:00 22 100/67 Mechanical Ventilator 100 08/09/20 22:00 22 97/67 Mechanical Ventilator 100 08/09/20 21:45 68 22 101/66 (78) 100 08/09/20 21:30 66 22 106/67 (80) 100 08/09/20 21:15 68 22 106/70 (82) 100 08/09/20 21:00 68 22 109/68 (82) 100 08/09/20 21:00 22 106/70 Mechanical Ventilator 100 08/09/20 21:00 22 106/70 Mechanical Ventilator 100 08/09/20 20:54 26 126/78 Mechanical Ventilator 100 08/09/20 20:45 86 24 126/78 (94) 100 08/09/20 20:30 77 22 95/61 (72) 100 08/09/20 20:15 74 22 95/65 (75) 100 08/09/20 20:00 Mechanical Ventilator 08/09/20 20:00 97.3 71 22 101/65 (77) 100 08/09/20 20:00 22 95/65 Mechanical Ventilator 100 08/09/20 20:00 22 95/65 Mechanical Ventilator 100 08/09/20 20:00 100 08/09/20 20:00 64 08/09/20 19:45 69 22 103/66 (78) 100 08/09/20 19:30 20 104/70 Mechanical Ventilator 100 08/09/20 19:30 68 22 109/71 (84) 100 08/09/20 19:15 68 22 104/70 (81) 100 08/09/20 19:13 68 22 100 08/09/20 19:00 67 22 98/70 (79) 100 08/09/20 19:00 22 109/71 Mechanical Ventilator 100 08/09/20 19:00 22 109/71 Mechanical Ventilator 100 08/09/20 18:45 68 22 102/69 (80) 100 08/09/20 18:30 67 22 98/63 (75) 100 08/09/20 18:15 68 22 95/64 (74) 100 08/09/20 18:00 66 22 99/61 (74) 100 08/09/20 18:00 17 120/65 Mechanical Ventilator 100 08/09/20 18:00 17 120/65 Mechanical Ventilator 75 08/09/20 17:45 67 22 101/60 (74) 100 08/09/20 17:30 70 22 100/65 (77) 100 08/09/20 17:15 93 26 114/67 (83) 98 08/09/20 17:00 80 22 102/87 (92) 96 08/09/20 17:00 18 116/70 Mechanical Ventilator 100 08/09/20 17:00 18 116/70 Mechanical Ventilator 75 08/09/20 17:00 78 23 102/87 (92) 95 08/09/20 16:49 91 30 100 08/09/20 16:45 71 22 100/64 (76) 100 08/09/20 16:30 72 22 97/64 (75) 100 08/09/20 16:15 98.5 71 22 98/65 (76) 100 08/09/20 16:00 Mechanical Ventilator 08/09/20 16:00 74 22 98/65 (76) 100 08/09/20 16:00 100 08/09/20 16:00 24 98/65 Mechanical Ventilator 100 08/09/20 16:00 22 98/65 Mechanical Ventilator 100 08/09/20 16:00 69 08/09/20 15:45 73 22 102/64 (77) 100 08/09/20 15:30 74 22 100/62 (75) 100 08/09/20 15:15 66 22 104/89 (94) 99 08/09/20 15:12 70 25 100 08/09/20 15:00 70 20 105/66 (79) 98 08/09/20 15:00 24 104/89 Mechanical Ventilator 100 08/09/20 15:00 22 104/89 Mechanical Ventilator 100 08/09/20 15:00 72 24 105/66 (79) 98 08/09/20 14:45 70 24 103/65 (78) 98 08/09/20 14:30 23 103/65 Mechanical Ventilator 100 08/09/20 14:30 75 22 100/65 (77) 96 08/09/20 14:15 71 23 103/67 (79) 98 08/09/20 14:00 74 23 103/64 (77) 98 08/09/20 14:00 98.6 71 24 103/64 (77) 98 08/09/20 14:00 22 103/64 Mechanical Ventilator 100 08/09/20 14:00 23 103/64 Mechanical Ventilator 100 08/09/20 13:45 76 24 98/63 (75) 99 08/09/20 13:30 81 21 96/61 (73) 99 08/09/20 13:15 78 22 98/65 (76) 100 08/09/20 13:00 82 22 102/64 (77) 100 08/09/20 13:00 77 24 96/61 (73) 99 08/09/20 13:00 24 98/65 Mechanical Ventilator 100 08/09/20 13:00 22 98/65 Mechanical Ventilator 100 08/09/20 12:45 86 22 103/70 (81) 100 08/09/20 12:30 111 22 126/81 (96) 95 08/09/20 12:28 121 22 100 08/09/20 12:15 111 30 159/87 (111) 83 08/09/20 12:00 90 22 134/71 (92) 93 08/09/20 12:00 100 08/09/20 12:00 98.7 108 20 134/71 (92) 92 08/09/20 12:00 90 08/09/20 12:00 24 134/71 Mechanical Ventilator 100 08/09/20 12:00 24 134/71 Mechanical Ventilator 100 08/09/20 12:00 Mechanical Ventilator 08/09/20 11:59 27 160/78 Mechanical Ventilator 100 08/09/20 11:59 28 127/72 Mechanical Ventilator 100 08/09/20 11:45 116 28 160/78 (105) 80 08/09/20 11:30 77 23 127/72 (90) 94 08/09/20 11:15 69 22 109/72 (84) 94 08/09/20 11:00 23 109/72 Mechanical Ventilator 80 08/09/20 11:00 23 109/72 Mechanical Ventilator 100 08/09/20 11:00 92 22 109/72 (84) 93 08/09/20 10:50 73 22 80 08/09/20 10:45 74 22 88/53 (65) 100 08/09/20 10:30 75 22 88/55 (66) 100 08/09/20 10:15 70 22 95/61 (72) 100 08/09/20 10:00 22 95/60 Mechanical Ventilator 80 08/09/20 10:00 22 95/60 Mechanical Ventilator 80 08/09/20 10:00 73 22 95/60 (72) 100 08/09/20 09:45 72 22 95/57 (70) 100 08/09/20 09:30 74 22 87/54 (65) 100 08/09/20 09:15 74 22 100/66 (77) 100 08/09/20 09:02 68 22 100 08/09/20 09:00 67 22 95/61 (72) 100 08/09/20 09:00 22 95/61 Mechanical Ventilator 80 08/09/20 09:00 22 95/61 Mechanical Ventilator 80 08/09/20 08:45 70 22 103/66 (78) 100 08/09/20 08:30 72 22 101/71 (81) 100 08/09/20 08:26 99/68 08/09/20 08:25 73 90/68 08/09/20 08:15 71 22 99/68 (78) 99 08/09/20 08:00 98.1 69 22 102/70 (81) 99 08/09/20 08:00 100 08/09/20 08:00 22 102/70 Mechanical Ventilator 100 08/09/20 08:00 22 102/70 Mechanical Ventilator 100 08/09/20 08:00 70 08/09/20 08:00 Mechanical Ventilator 08/09/20 07:45 67 21 109/71 (84) 99 08/09/20 07:37 22 126/85 Mechanical Ventilator 100 08/09/20 07:30 64 22 126/85 (99) 99 08/09/20 07:15 69 22 119/81 (94) 99 08/09/20 07:14 70 22 100 08/09/20 07:00 22 124/79 Mechanical Ventilator 100 08/09/20 07:00 69 22 124/79 (94) 99 Intake and Output 3/11/21 3/12/21 19:00 07:00 Intake Total 1548.16 ml 1475 ml Output Total 1110 ml 1425 ml Balance 438.16 ml 50 ml Free Water 100 ml IV Total 788.16 ml 770 ml Tube Feeding 660 ml 605 ml Other 100 ml Output Urine Total 1110 ml 1425 ml # Bowel Movements 10 Labs Test 08/08/20 11:30 08/08/20 23:16 08/09/20 03:50 08/09/20 05:16 POC Whole Blood Glucose 183 MG/DL (74-106) White Blood Count 16.9 K/UL (4.8-10.8) Red Blood Count 2.93 M/UL (4.20-5.40) Hemoglobin 8.3 G/DL (12.0-16.0) Hematocrit 26.7 % (37.0-47.0) Mean Corpuscular Volume 91 FL (80-99) Mean Corpuscular Hemoglobin 28.5 PG (27.0-31.0) Mean Corpuscular Hemoglobin Concent 31.3 G/DL (32.0-36.0) Red Cell Distribution Width 16.3 % (11.6-14.8) Platelet Count 119 K/UL (150-450) Mean Platelet Volume 9.3 FL (6.5-10.1) Neutrophils (%) (Auto) % (45.0-75.0) Lymphocytes (%) (Auto) % (20.0-45.0) Monocytes (%) (Auto) % (1.0-10.0) Eosinophils (%) (Auto) % (0.0-3.0) Basophils (%) (Auto) % (0.0-2.0) Differential Total Cells Counted 100 Neutrophils % (Manual) 88 % (45-75) Lymphocytes % (Manual) 7 % (20-45) Monocytes % (Manual) 4 % (1-10) Eosinophils % (Manual) 1 % (0-3) Basophils % (Manual) 0 % (0-2) Band Neutrophils 0 % (0-8) Platelet Estimate Decreased Platelet Morphology Normal Hypochromasia 1+ Anisocytosis 1+ Sodium Level 146 MMOL/L (136-145) Potassium Level 4.6 MMOL/L (3.5-5.1) Chloride Level 111 MMOL/L (98-107) Carbon Dioxide Level 29 MMOL/L (21-32) Anion Gap 6 mmol/L (5-15) Blood Urea Nitrogen 36 mg/dL (7-18) Creatinine 0.8 MG/DL (0.55-1.30) Estimat Glomerular Filtration Rate > 60 mL/min (>60) Glucose Level 181 MG/DL (74-106) Calcium Level 8.6 MG/DL (8.5-10.1) Total Bilirubin 0.4 MG/DL (0.2-1.0) Aspartate Amino Transf (AST/SGOT) 68 U/L (15-37) Alanine Aminotransferase (ALT/SGPT) 179 U/L (12-78) Alkaline Phosphatase 131 U/L (46-116) Total Protein 5.3 G/DL (6.4-8.2) Albumin 1.8 G/DL (3.4-5.0) Globulin 3.5 g/dL Albumin/Globulin Ratio 0.5 (1.0-2.7) Test 08/09/20 08:30 08/09/20 12:09 08/09/20 17:51 08/09/20 20:35 POC Whole Blood Glucose 134 MG/DL (74-106) 187 MG/DL (74-106) 134 MG/DL (74-106) Test 08/10/20 00:18 08/10/20 03:52 08/10/20 09:03 08/10/20 11:53 POC Whole Blood Glucose 142 MG/DL (74-106) 171 MG/DL (74-106) 186 MG/DL (74-106) White Blood Count 10.5 K/UL (4.8-10.8) Red Blood Count 2.41 M/UL (4.20-5.40) Hemoglobin 6.6 G/DL (12.0-16.0) Hematocrit 21.8 % (37.0-47.0) Mean Corpuscular Volume 91 FL (80-99) Mean Corpuscular Hemoglobin 27.5 PG (27.0-31.0) Mean Corpuscular Hemoglobin Concent 30.3 G/DL (32.0-36.0) Red Cell Distribution Width 15.6 % (11.6-14.8) Platelet Count 98 K/UL (150-450) Mean Platelet Volume 8.0 FL (6.5-10.1) Neutrophils (%) (Auto) % (45.0-75.0) Lymphocytes (%) (Auto) % (20.0-45.0) Monocytes (%) (Auto) % (1.0-10.0) Eosinophils (%) (Auto) % (0.0-3.0) Basophils (%) (Auto) % (0.0-2.0) Differential Total Cells Counted 100 Neutrophils % (Manual) 95 % (45-75) Lymphocytes % (Manual) 3 % (20-45) Monocytes % (Manual) 2 % (1-10) Eosinophils % (Manual) 0 % (0-3) Basophils % (Manual) 0 % (0-2) Band Neutrophils 0 % (0-8) Platelet Estimate Decreased Platelet Morphology Normal Hypochromasia 2+ Basophilic Stippling 1+ Anisocytosis 1+ Sodium Level 149 MMOL/L (136-145) Potassium Level 4.7 MMOL/L (3.5-5.1) Chloride Level 115 MMOL/L (98-107) Carbon Dioxide Level 31 MMOL/L (21-32) Anion Gap 3 mmol/L (5-15) Blood Urea Nitrogen 35 mg/dL (7-18) Creatinine 0.8 MG/DL (0.55-1.30) Estimat Glomerular Filtration Rate > 60 mL/min (>60) Glucose Level 138 MG/DL (74-106) Calcium Level 8.3 MG/DL (8.5-10.1) Total Bilirubin 0.2 MG/DL (0.2-1.0) Aspartate Amino Transf (AST/SGOT) 43 U/L (15-37) Alanine Aminotransferase (ALT/SGPT) 119 U/L (12-78) Alkaline Phosphatase 92 U/L (46-116) Total Protein 4.3 G/DL (6.4-8.2) Albumin 1.5 G/DL (3.4-5.0) Globulin 2.8 g/dL Albumin/Globulin Ratio 0.5 (1.0-2.7) Test 08/10/20 17:18 08/10/20 20:26 08/11/20 00:02 08/11/20 05:39 POC Whole Blood Glucose 216 MG/DL (74-106) 210 MG/DL (74-106) 215 MG/DL (74-106) 200 MG/DL (74-106) Height (Feet): 5 Height (Inches): 3.00 Weight (Pounds): 162 Objective Gen: nad Pulm: on vent++ CV: rrr, no mgr Abd: soft, nt, nd Ext: no cce Saul Blankenship MD Aug 11, 2020 06:28
--- NOTE | 2020-08-11 06:35 | NUR ---
Pt remains in no acute distress. No changes in patient condition since last nursing note. Repositioned and oral care provided.
--- NOTE | 2020-08-11 07:09 | NUR ---
Report given to LIANA Menon who assumed care of patient.
--- NOTE | 2020-08-11 07:14 | NUR ---
NURSE NOTES: Received report from LIANA Echeverria. Patient is sedated. ETT 7.5/24 cm at lip line with vent setting ac 22, vt 450, peep 12 and FiO2 100%. OGT intact and running with Glucerna 1.2 @ 55ml/hr. Rectal tube intact. Fernandez intact and draining with yellow color urine Right femoral TLC intact and running with fentanyl 300mcg/hr and versed 20mg/hr to meet RASS -2. Afebrile. Kept dry, clean and comfortable. Will continue plan of care.
--- NOTE | 2020-08-11 07:25 | NUR ---
RESPIRATORY NOTE: PT received on AC/VC: 22, 450 100%,+12. Alarms are on and audible. Vent circuit is secure and out of the way. Airway is secure and patent. No s/s of acute respiratory distress noted at this time. Will continue to closely monitor.
[2020-08-11] MEDS: fentaNYL 2500mcg/NS 250ml 250 ML IV PRN (07:41)
[2020-08-11] MEDS: Levemir Flexpen SUBQ SCH ×2 (08:09→21:19)
--- NOTE | 2020-08-11 10:18 | Infectious Diseases Prog Note ---
Assessment/Plan Assessment/Plan antibiotics : none A 1. covid 19 pneumonia on 100 % Fio2 with 99 % saturation 2. pseudomonas pneumonia s/p rx 3. respiratory failure 4. leucocytosis resolved 5. diabetes mellitus P 1. observe off antibiotics 2. will follow up cultures Subjective ROS Limited/Unobtainable: Yes Allergies: Coded Allergies: No Known Allergies (Unverified , 07/07/20) Objective Last 24 Hour Vital Signs Date Time Temp Pulse Resp B/P (MAP) Pulse Ox O2 Delivery O2 Flow Rate FiO2 08/11/20 09:59 22 125/74 Mechanical Ventilator 100 08/11/20 08:09 55 114/69 08/11/20 08:00 Mechanical Ventilator 08/11/20 08:00 100 08/11/20 07:41 22 114/67 Mechanical Ventilator 100 08/11/20 06:30 48 21 116/65 (82) 99 08/11/20 06:15 46 22 116/72 (87) 100 08/11/20 06:00 48 22 130/71 (90) 100 08/11/20 06:00 22 131/76 Mechanical Ventilator 100 08/11/20 06:00 22 131/76 Mechanical Ventilator 100 08/11/20 05:45 54 14 131/76 (94) 100 08/11/20 05:30 65 0 126/63 (84) 100 08/11/20 05:15 75 21 105/87 (93) 100 08/11/20 05:12 53 22 100 08/11/20 05:00 52 22 120/67 (84) 100 08/11/20 05:00 22 105/87 Mechanical Ventilator 100 08/11/20 05:00 22 105/87 Mechanical Ventilator 100 08/11/20 04:45 57 22 113/63 (80) 100 08/11/20 04:30 53 22 114/70 (85) 100 08/11/20 04:29 22 118/66 Mechanical Ventilator 100 08/11/20 04:15 56 22 118/66 (83) 100 08/11/20 04:00 Mechanical Ventilator 08/11/20 04:00 22 118/66 Mechanical Ventilator 100 08/11/20 04:00 22 118/66 Mechanical Ventilator 100 08/11/20 04:00 96.2 46 22 115/70 (85) 100 08/11/20 04:00 100 08/11/20 04:00 56 08/11/20 03:45 48 22 127/74 (91) 100 08/11/20 03:30 50 22 118/67 (84) 100 08/11/20 03:15 45 22 121/73 (89) 100 08/11/20 03:06 47 22 100 08/11/20 03:00 22 121/73 Mechanical Ventilator 100 08/11/20 03:00 22 121/73 Mechanical Ventilator 100 08/11/20 03:00 44 22 122/73 (89) 100 08/11/20 02:45 47 22 128/71 (90) 100 08/11/20 02:30 54 23 141/77 (98) 98 08/11/20 02:15 57 22 133/76 (95) 100 08/11/20 02:00 51 22 123/69 (87) 100 08/11/20 02:00 22 133/76 Mechanical Ventilator 100 08/11/20 02:00 22 133/76 Mechanical Ventilator 100 08/11/20 01:45 53 22 124/65 (84) 100 08/11/20 01:30 49 22 123/69 (87) 100 08/11/20 01:15 50 22 127/68 (87) 100 08/11/20 01:08 51 22 100 08/11/20 01:00 53 22 122/70 (87) 100 08/11/20 01:00 22 124/65 Mechanical Ventilator 100 08/11/20 01:00 22 124/65 Mechanical Ventilator 100 08/11/20 00:45 57 22 114/68 (83) 99 08/11/20 00:30 58 22 121/67 (85) 99 08/11/20 00:15 60 22 125/65 (85) 99 08/11/20 00:00 22 125/65 Mechanical Ventilator 100 08/11/20 00:00 22 125/65 Mechanical Ventilator 100 08/11/20 00:00 Mechanical Ventilator 08/11/20 00:00 54 08/11/20 00:00 96.5 64 22 136/69 (91) 98 08/11/20 00:00 100 08/10/20 23:45 55 22 125/77 (93) 99 08/10/20 23:30 56 22 126/72 (90) 99 08/10/20 23:29 22 128/71 Mechanical Ventilator 100 08/10/20 23:15 53 22 128/71 (90) 99 08/10/20 23:04 53 22 100 08/10/20 23:00 22 128/71 Mechanical Ventilator 100 08/10/20 23:00 22 128/71 Mechanical Ventilator 100 08/10/20 23:00 57 22 126/67 (86) 99 08/10/20 22:53 22 131/79 Mechanical Ventilator 100 08/10/20 22:45 54 22 131/79 (96) 99 08/10/20 22:30 56 22 116/68 (84) 99 08/10/20 22:15 60 22 124/68 (86) 99 08/10/20 22:00 60 22 124/73 (90) 100 08/10/20 22:00 22 124/68 Mechanical Ventilator 100 08/10/20 22:00 22 124/68 Mechanical Ventilator 100 08/10/20 21:45 55 22 125/71 (89) 99 08/10/20 21:30 54 22 121/72 (88) 99 08/10/20 21:15 69 22 137/77 (97) 99 08/10/20 21:07 62 22 100 08/10/20 21:00 51 22 130/73 (92) 99 08/10/20 21:00 22 137/77 Mechanical Ventilator 100 08/10/20 21:00 22 137/77 Mechanical Ventilator 100 08/10/20 20:45 55 22 130/77 (94) 99 08/10/20 20:30 56 22 131/78 (95) 99 08/10/20 20:15 57 22 128/76 (93) 98 08/10/20 20:00 59 08/10/20 20:00 Mechanical Ventilator 08/10/20 20:00 100 08/10/20 20:00 22 128/76 Mechanical Ventilator 100 08/10/20 20:00 22 128/76 Mechanical Ventilator 100 08/10/20 20:00 98.8 57 22 125/74 (91) 99 08/10/20 19:45 56 22 132/74 (93) 99 08/10/20 19:30 60 22 124/72 (89) 99 08/10/20 19:15 70 22 131/73 (92) 99 08/10/20 19:04 60 23 100 08/10/20 19:00 23 120/77 Mechanical Ventilator 100 08/10/20 19:00 22 120/77 Mechanical Ventilator 100 08/10/20 19:00 59 21 120/77 (91) 97 08/10/20 18:00 23 129/76 Mechanical Ventilator 100 08/10/20 18:00 23 129/76 Mechanical Ventilator 100 08/10/20 18:00 60 22 129/76 (93) 99 08/10/20 17:30 68 22 132/67 (88) 100 08/10/20 17:14 23 123/70 Mechanical Ventilator 100 08/10/20 17:00 23 123/70 Mechanical Ventilator 100 08/10/20 17:00 23 123/70 Mechanical Ventilator 100 08/10/20 17:00 71 22 123/70 (87) 99 08/10/20 16:30 59 22 121/70 (87) 97 08/10/20 16:02 64 08/10/20 16:00 Mechanical Ventilator 08/10/20 16:00 22 114/71 Mechanical Ventilator 100 08/10/20 16:00 22 113/72 Mechanical Ventilator 100 08/10/20 16:00 100 08/10/20 16:00 98.6 60 22 114/71 (85) 97 08/10/20 15:30 60 22 122/70 (87) 98 08/10/20 15:13 64 25 100 08/10/20 15:00 22 120/68 Mechanical Ventilator 100 08/10/20 15:00 22 120/68 Mechanical Ventilator 100 08/10/20 15:00 62 21 127/68 (87) 98 08/10/20 14:45 23 120/69 Mechanical Ventilator 100 08/10/20 14:15 98.6 62 24 123/74 (90) 94 08/10/20 14:00 22 130/80 Mechanical Ventilator 100 08/10/20 14:00 22 130/80 Mechanical Ventilator 100 08/10/20 14:00 66 23 123/74 (90) 94 08/10/20 13:45 67 23 128/75 (92) 95 08/10/20 13:30 72 23 126/68 (87) 96 08/10/20 13:00 78 22 115/68 (84) 97 08/10/20 13:00 23 120/72 Mechanical Ventilator 100 08/10/20 13:00 23 120/72 Mechanical Ventilator 100 08/10/20 12:30 70 22 123/69 (87) 98 08/10/20 12:15 97.9 73 22 129/72 (91) 99 08/10/20 12:00 77 22 130/69 (89) 98 08/10/20 12:00 22 129/72 Mechanical Ventilator 100 08/10/20 12:00 23 129/72 Mechanical Ventilator 100 08/10/20 12:00 100 08/10/20 12:00 Mechanical Ventilator 08/10/20 11:59 78 08/10/20 11:45 73 24 117/64 (81) 95 08/10/20 11:30 24 115/63 Mechanical Ventilator 100 08/10/20 11:30 74 22 114/67 (83) 94 08/10/20 11:15 73 23 115/63 (80) 95 08/10/20 11:09 89 25 100 08/10/20 11:00 23 115/63 Mechanical Ventilator 100 08/10/20 11:00 23 115/63 Mechanical Ventilator 100 08/10/20 11:00 98.0 72 24 108/66 (80) 94 08/10/20 10:30 73 22 115/65 (82) 94 Height (Feet): 5 Height (Inches): 3.00 Weight (Pounds): 162 HEENT: other - intubated Respiratory/Chest: lungs clear Cardiovascular: normal rate, regular rhythm, no gallop/murmur Abdomen: soft, non tender Extremities: other - + edema Laboratory Tests Test 08/10/20 11:53 08/10/20 17:18 08/10/20 20:26 08/11/20 00:02 POC Whole Blood Glucose 186 MG/DL (74-106) H 216 MG/DL (74-106) H 210 MG/DL (74-106) H 215 MG/DL (74-106) H Test 08/11/20 05:39 POC Whole Blood Glucose 200 MG/DL (74-106) H Current Medications Medications (Trade) Dose Ordered Sig/Marian Route PRN Reason Start Time Stop Time Status Last Admin Dose Admin Acetaminophen (Tylenol) 650 mg Q4H PRN RECTAL Temp >100.5 07/18/20 18:30 08/17/20 18:29 08/01/20 16:50 Chlorhexidine Gluconate (Rafaela-Hex 2%) 1 applic DAILY@1999 TOPIC 08/01/20 20:00 10/30/20 19:59 08/10/20 20:21 Dextrose (Dextrose 50%) 25 ml Q30M PRN IV Hypoglycemia 07/07/20 15:45 10/05/20 15:44 Dextrose (Dextrose 50%) 50 ml Q30M PRN IV Hypoglycemia 07/07/20 15:45 10/05/20 15:44 Famotidine (Pepcid I.v.) 20 mg Q12HR IVP 07/20/20 09:00 08/19/20 08:59 08/11/20 08:08 Fentanyl Citrate 250 ml @ 0 mls/hr Q24H PRN IV . 08/09/20 10:30 08/11/20 10:29 08/11/20 07:41 Furosemide (Lasix) 20 mg EVERY 12 HOURS IV 08/10/20 09:00 09/09/20 08:59 08/11/20 08:08 Insulin Aspart (NovoLOG) Q6HR SUBQ 07/26/20 12:00 10/24/20 11:59 08/11/20 05:54 Insulin Detemir (Levemir) 30 units Q12HR SUBQ 08/01/20 21:00 10/24/20 10:29 08/11/20 08:09 Methylprednisolone Sodium Succinate (Solu-MEDROL) 20 mg EVERY 6 HOURS IVP 07/22/20 12:00 10/19/20 08:59 08/11/20 05:53 Metoprolol Tartrate (Lopressor) 25 mg EVERY 12 HOURS NG 07/26/20 21:00 10/24/20 20:59 08/04/20 20:45 Midazolam HCl 200 ml @ 0 mls/hr Q24H PRN IV To Patient Comfort 08/10/20 15:51 08/12/20 15:50 08/11/20 09:59 Sorbitol (sorbitoL) 45 ml Q12HR PRN ORAL Constipation 07/30/20 09:15 08/29/20 09:14 Lynne Gonzalez MD Aug 11, 2020 10:18
--- NOTE | 2020-08-11 10:50 | NUR ---
NURSE NOTES: Seen by Dr. Edward and assessed patient. No new orders at this time.
--- NOTE | 2020-08-11 11:19 | Pulmonology Progress Note ---
Subjective ROS Limited/Unobtainable: Yes Interval Events: S/p intubation Constitutional: Denies: fever HEENT: Repors: no symptoms Respiratory: Reports: shortness of breath Gastrointestinal/Abdominal: Reports: no symptoms Psychiatric: Reports: no symptoms Skin: Reports: no symptoms Musculoskeletal: Reports: no symptoms Allergies: Coded Allergies: No Known Allergies (Unverified , 07/07/20) Objective Last 24 Hour Vital Signs Date Time Temp Pulse Resp B/P (MAP) Pulse Ox O2 Delivery O2 Flow Rate FiO2 08/11/20 10:30 58 19 112/72 (85) 97 08/11/20 10:00 61 13 111/61 (78) 97 08/11/20 09:59 22 125/74 Mechanical Ventilator 100 08/11/20 09:30 51 22 120/69 (86) 100 08/11/20 09:00 56 22 124/72 (89) 100 08/11/20 08:30 53 22 108/65 (79) 100 08/11/20 08:09 55 114/69 08/11/20 08:00 97.0 60 22 114/69 (84) 99 08/11/20 08:00 Mechanical Ventilator 08/11/20 08:00 100 08/11/20 07:41 22 114/67 Mechanical Ventilator 100 08/11/20 07:30 54 22 114/67 (83) 99 08/11/20 07:25 51 22 100 08/11/20 07:00 48 15 128/72 (90) 99 08/11/20 06:30 48 21 116/65 (82) 99 08/11/20 06:15 46 22 116/72 (87) 100 08/11/20 06:00 48 22 130/71 (90) 100 08/11/20 06:00 22 131/76 Mechanical Ventilator 100 08/11/20 06:00 22 131/76 Mechanical Ventilator 100 08/11/20 05:45 54 14 131/76 (94) 100 08/11/20 05:30 65 0 126/63 (84) 100 08/11/20 05:15 75 21 105/87 (93) 100 08/11/20 05:12 53 22 100 08/11/20 05:00 52 22 120/67 (84) 100 08/11/20 05:00 22 105/87 Mechanical Ventilator 100 08/11/20 05:00 22 105/87 Mechanical Ventilator 100 08/11/20 04:45 57 22 113/63 (80) 100 08/11/20 04:30 53 22 114/70 (85) 100 08/11/20 04:29 22 118/66 Mechanical Ventilator 100 08/11/20 04:15 56 22 118/66 (83) 100 08/11/20 04:00 Mechanical Ventilator 08/11/20 04:00 22 118/66 Mechanical Ventilator 100 08/11/20 04:00 22 118/66 Mechanical Ventilator 100 08/11/20 04:00 96.2 46 22 115/70 (85) 100 08/11/20 04:00 100 08/11/20 04:00 56 08/11/20 03:45 48 22 127/74 (91) 100 08/11/20 03:30 50 22 118/67 (84) 100 08/11/20 03:15 45 22 121/73 (89) 100 08/11/20 03:06 47 22 100 08/11/20 03:00 22 121/73 Mechanical Ventilator 100 08/11/20 03:00 22 121/73 Mechanical Ventilator 100 08/11/20 03:00 44 22 122/73 (89) 100 08/11/20 02:45 47 22 128/71 (90) 100 08/11/20 02:30 54 23 141/77 (98) 98 08/11/20 02:15 57 22 133/76 (95) 100 08/11/20 02:00 51 22 123/69 (87) 100 08/11/20 02:00 22 133/76 Mechanical Ventilator 100 08/11/20 02:00 22 133/76 Mechanical Ventilator 100 08/11/20 01:45 53 22 124/65 (84) 100 08/11/20 01:30 49 22 123/69 (87) 100 08/11/20 01:15 50 22 127/68 (87) 100 08/11/20 01:08 51 22 100 08/11/20 01:00 53 22 122/70 (87) 100 08/11/20 01:00 22 124/65 Mechanical Ventilator 100 08/11/20 01:00 22 124/65 Mechanical Ventilator 100 08/11/20 00:45 57 22 114/68 (83) 99 08/11/20 00:30 58 22 121/67 (85) 99 08/11/20 00:15 60 22 125/65 (85) 99 08/11/20 00:00 22 125/65 Mechanical Ventilator 100 08/11/20 00:00 22 125/65 Mechanical Ventilator 100 08/11/20 00:00 Mechanical Ventilator 08/11/20 00:00 54 08/11/20 00:00 96.5 64 22 136/69 (91) 98 08/11/20 00:00 100 08/10/20 23:45 55 22 125/77 (93) 99 08/10/20 23:30 56 22 126/72 (90) 99 08/10/20 23:29 22 128/71 Mechanical Ventilator 100 08/10/20 23:15 53 22 128/71 (90) 99 08/10/20 23:04 53 22 100 08/10/20 23:00 22 128/71 Mechanical Ventilator 100 08/10/20 23:00 22 128/71 Mechanical Ventilator 100 08/10/20 23:00 57 22 126/67 (86) 99 08/10/20 22:53 22 131/79 Mechanical Ventilator 100 08/10/20 22:45 54 22 131/79 (96) 99 08/10/20 22:30 56 22 116/68 (84) 99 08/10/20 22:15 60 22 124/68 (86) 99 08/10/20 22:00 60 22 124/73 (90) 100 08/10/20 22:00 22 124/68 Mechanical Ventilator 100 08/10/20 22:00 22 124/68 Mechanical Ventilator 100 08/10/20 21:45 55 22 125/71 (89) 99 08/10/20 21:30 54 22 121/72 (88) 99 08/10/20 21:15 69 22 137/77 (97) 99 08/10/20 21:07 62 22 100 08/10/20 21:00 51 22 130/73 (92) 99 08/10/20 21:00 22 137/77 Mechanical Ventilator 100 08/10/20 21:00 22 137/77 Mechanical Ventilator 100 08/10/20 20:45 55 22 130/77 (94) 99 08/10/20 20:30 56 22 131/78 (95) 99 08/10/20 20:15 57 22 128/76 (93) 98 08/10/20 20:00 59 08/10/20 20:00 Mechanical Ventilator 08/10/20 20:00 100 08/10/20 20:00 22 128/76 Mechanical Ventilator 100 08/10/20 20:00 22 128/76 Mechanical Ventilator 100 08/10/20 20:00 98.8 57 22 125/74 (91) 99 08/10/20 19:45 56 22 132/74 (93) 99 08/10/20 19:30 60 22 124/72 (89) 99 08/10/20 19:15 70 22 131/73 (92) 99 08/10/20 19:04 60 23 100 08/10/20 19:00 23 120/77 Mechanical Ventilator 100 08/10/20 19:00 22 120/77 Mechanical Ventilator 100 08/10/20 19:00 59 21 120/77 (91) 97 08/10/20 18:00 23 129/76 Mechanical Ventilator 100 08/10/20 18:00 23 129/76 Mechanical Ventilator 100 08/10/20 18:00 60 22 129/76 (93) 99 08/10/20 17:30 68 22 132/67 (88) 100 08/10/20 17:14 23 123/70 Mechanical Ventilator 100 08/10/20 17:00 23 123/70 Mechanical Ventilator 100 08/10/20 17:00 23 123/70 Mechanical Ventilator 100 08/10/20 17:00 71 22 123/70 (87) 99 08/10/20 16:30 59 22 121/70 (87) 97 08/10/20 16:02 64 08/10/20 16:00 Mechanical Ventilator 08/10/20 16:00 22 114/71 Mechanical Ventilator 100 08/10/20 16:00 22 113/72 Mechanical Ventilator 100 08/10/20 16:00 100 08/10/20 16:00 98.6 60 22 114/71 (85) 97 08/10/20 15:30 60 22 122/70 (87) 98 08/10/20 15:13 64 25 100 08/10/20 15:00 22 120/68 Mechanical Ventilator 100 08/10/20 15:00 22 120/68 Mechanical Ventilator 100 08/10/20 15:00 62 21 127/68 (87) 98 08/10/20 14:45 23 120/69 Mechanical Ventilator 100 08/10/20 14:15 98.6 62 24 123/74 (90) 94 08/10/20 14:00 22 130/80 Mechanical Ventilator 100 08/10/20 14:00 22 130/80 Mechanical Ventilator 100 08/10/20 14:00 66 23 123/74 (90) 94 08/10/20 13:45 67 23 128/75 (92) 95 08/10/20 13:30 72 23 126/68 (87) 96 08/10/20 13:00 78 22 115/68 (84) 97 08/10/20 13:00 23 120/72 Mechanical Ventilator 100 08/10/20 13:00 23 120/72 Mechanical Ventilator 100 08/10/20 12:30 70 22 123/69 (87) 98 08/10/20 12:15 97.9 73 22 129/72 (91) 99 08/10/20 12:00 77 22 130/69 (89) 98 08/10/20 12:00 22 129/72 Mechanical Ventilator 100 08/10/20 12:00 23 129/72 Mechanical Ventilator 100 08/10/20 12:00 100 08/10/20 12:00 Mechanical Ventilator 08/10/20 11:59 78 08/10/20 11:45 73 24 117/64 (81) 95 08/10/20 11:30 24 115/63 Mechanical Ventilator 100 08/10/20 11:30 74 22 114/67 (83) 94 Intake and Output 08/10/20 08/11/20 19:00 07:00 Intake Total 1548.16 ml 1475 ml Output Total 1110 ml 1425 ml Balance 438.16 ml 50 ml Free Water 100 ml IV Total 788.16 ml 770 ml Tube Feeding 660 ml 605 ml Other 100 ml Output Urine Total 1110 ml 1425 ml # Bowel Movements 10 General Appearance: no acute distress HEENT: normocephalic Respiratory: decreased breath sounds Cardiovascular: normal peripheral pulses Abdomen: normal bowel sounds Laboratory Tests 08/10/20 11:53: POC Whole Blood Glucose 186H 08/10/20 17:18: POC Whole Blood Glucose 216H 08/10/20 20:26: POC Whole Blood Glucose 210H 08/11/20 00:02: POC Whole Blood Glucose 215H 08/11/20 05:39: POC Whole Blood Glucose 200H Current Medications Medications (Trade) Dose Ordered Sig/Marian Route PRN Reason Start Time Stop Time Status Last Admin Dose Admin Acetaminophen (Tylenol) 650 mg Q4H PRN RECTAL Temp >100.5 07/18/20 18:30 08/17/20 18:29 08/01/20 16:50 Chlorhexidine Gluconate (Rafaela-Hex 2%) 1 applic DAILY@2000 TOPIC 08/01/20 20:00 10/30/20 19:59 08/10/20 20:21 Dextrose (Dextrose 50%) 25 ml Q30M PRN IV Hypoglycemia 07/07/20 15:45 10/05/20 15:44 Dextrose (Dextrose 50%) 50 ml Q30M PRN IV Hypoglycemia 07/07/20 15:45 10/05/20 15:44 Famotidine (Pepcid I.v.) 20 mg Q12HR IVP 07/20/20 09:00 08/19/20 08:59 08/11/20 08:08 Fentanyl Citrate 250 ml @ 1 mls/hr Q24H IV 08/11/20 11:15 08/13/20 11:14 UNV Furosemide (Lasix) 20 mg EVERY 12 HOURS IV 08/10/20 09:00 09/09/20 08:59 08/11/20 08:08 Insulin Aspart (NovoLOG) Q6HR SUBQ 07/26/20 12:00 10/24/20 11:59 08/11/20 05:54 Insulin Detemir (Levemir) 30 units Q12HR SUBQ 08/01/20 21:00 10/24/20 10:29 08/11/20 08:09 Methylprednisolone Sodium Succinate (Solu-MEDROL) 20 mg EVERY 6 HOURS IVP 07/22/20 12:00 10/19/20 08:59 08/11/20 05:53 Metoprolol Tartrate (Lopressor) 25 mg EVERY 12 HOURS NG 07/26/20 21:00 10/24/20 20:59 08/04/20 20:45 Midazolam HCl 200 ml @ 0 mls/hr Q24H PRN IV To Patient Comfort 08/10/20 15:51 08/12/20 15:50 08/11/20 09:59 Sorbitol (sorbitoL) 45 ml Q12HR PRN ORAL Constipation 07/30/20 09:15 08/29/20 09:14 Assessment/Plan Assessment/Plan 1. COVID-19 pneumonia. - COVID-19 PCR positive (07/07) - s/p remdexsivir, azithromycin - CXR (07/13) no significant change - f/u rapid COVID-19 (07/31) negative -> now off isolation 2. Hypoxemic respiratory distress - s/p decadron (07/08-07/17) - now on Solu-Medrol - intubated; on AC mode - FiO2 100 -> 80-> 100-> 80-> 100%; continue PEEP 7->8 -> 10-> 8 - >12 - episodically desaturates to 70% 3. Hypertension. - Required central line 08/01/20 -on Levophed 4. Diabetes mellitus. -on insulin sliding scale 5. DVT ppx - on Lovenox, full dose empirically; on hold now due to epistaxis - SCD in place 6. Sputum Cx shows pseudomonas and cony - continue cefepime per ID 7. Suspect bacterial infection given leukocytosis - s/p Diflucan, Cefepime, IV Vanco - s/p IV Bactrim for possible PJP 8. Pulmonary edema -Off lasix gtt 9. Anemia - No further epistaxis and oral bleeding - Transfuse prn Discussed with bedside RN. On Levemir DW family, family discussing possible extubation and comfort care Now DNR Dw family (08/10), family requests to continue current management visited ICU (08/11), continue current management The care of this patient was discussed with my supervising physician Time spent for this encounter was approximately 31 minutes Milton Howard Aug 11, 2020 11:19
--- NOTE | 2020-08-11 12:29 | NUR ---
NURSE NOTES: Still running fentanyl 300mcg/hr and versed 20mg/hr to meet RASS -2. kept dry, clean and comfortable.
--- NOTE | 2020-08-11 13:55 | Nephrology Progress Note ---
Assessment/Plan Problem List: (1) Hyponatremia (2) Hypoxia (3) Pneumonitis (4) Acute respiratory failure due to COVID-19 (5) DMII (diabetes mellitus, type 2) (6) HTN (hypertension) Assessment Hyponatremia, improved with saline infusion COVID-19 infection Pneumonia, acute respiratory failure, hypoxia Diabetes mellitus Hypertension Plan August 11: Status unchanged. Patient was transfused 2 units of packed RBCs. No labs drawn today. Patient DNR. Continue current support. August 10: Status quo. Labs reviewed. Remains on high flow oxygen. Hemoglobin lower. Transfusion is being entertained. Patient DNR. Not much to add from renal standpoint to view. August 09: Labs reviewed. Renal parameters stable. Pulmonary status unchanged. Remains 100% FiO2. Patient DNR. Continue current support. August 08: Labs reviewed. Renal parameters stable. Discussed with LIANA Malik. Patient remains on 100% FiO2. Status was changed to DNR. Prognosis dismal. Continue current support. August 07: Labs reviewed. Renal parameters stable. Discussed with LIANA Malik. Pulmonary status remains precarious. On low-dose pressors now. Continue per consultants. Continue to monitor renal parameters and electrolytes. August 06: Labs reviewed. Renal parameters stable. Discussed with RN. Pulmonary status deteriorated. Blood pressure borderline. On FiO2 100%. Continue per pulmonary. May need pressors for BP support. Defer to vp of product. August 05: Labs reviewed. Renal parameters stable. Remains intubated on ventilator and full code. Continue per consultants. August 04: Labs reviewed. Renal parameters stable. Medication list reviewed. Continue per consultants. August 03: Labs reviewed. Discussed with RN. Patient n.p.o. at this time. Will start IV until feeding resumes. Continue to monitor electrolytes and renal parameters. Medication list reviewed. Continue per consultants. August 02: Labs reviewed. Serum sodium drifting down. Serum potassium remains higher than normal though improved since yesterday. Kayexalate via NG tube given and 250 cc 3% saline IV given continue to monitor renal parameters and electrolytes. August 01: Today's labs reviewed. Discussed with RN. Kayexalate for high potassium given. Hemoglobin lower. 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 Continue to monitor electrolytes and renal parameters. July 31: No CHEM panel drawn today. Remains full code. Intubated on ventilator. FiO2 85% now. Will check lab tomorrow. Continue to monitor renal parameters. July 30: Labs reviewed. Renal parameters stable. Continue per consultants. Intubated on ventilator with FiO2 of 100%. Full code. Not much to add from renal standpoint of view at this time. July 29 labs reviewed. Serum potassium elevated. Potassium supplement was put on hold on 1 dose of Kayexalate given. Levemir dose increased. Continue to monitor renal parameters. Patient remains on 100% FiO2 on ventilator. July 28: Labs reviewed. Renal parameters stable. Remains full code. Blood sugar remains high. Levemir dose increased. Not much to add from renal standpoint of view. FiO2 now is 100%. July 27: Labs reviewed. Renal parameters stable. Low potassium addressed. FiO2 70%. Blood sugar elevated. Levemir dose is being adjusted. Continue per consultants. July 26: Labs reviewed. Renal parameters stable. Patient now intubated on ventilator in ICU. Blood sugar elevated. Levemir added. Will watch electrolytes. Main management per vp of product and ID. July 25: Labs reviewed. Renal parameters stable. Continue per consultants. July 24: Labs reviewed. Renal parameters stable. Continue per pulmonary. Medication list reviewed. July 23: No labs drawn today. Medication list reviewed. Continue per c onsultant. Patient full code. July 22: Labs reviewed. Stable renal parameters. Continue per consultants. July 21: No CHEM panel drawn today. Stable from renal standpoint of view. Blood pressure stable. July 20: IV changed to D5W 50 cc an hour. Renal parameters stable. Continue per consultants. July 19: Pulmonary status remains unstable. Stable from renal standpoint of view. July 18: Labs reviewed. Stable renal parameters and electrolytes. Continue per consultants. July 17: No labs drawn today. Remains stable from renal standpoint today. July 16: No labs drawn today. Continue per consultants. Stable from renal standpoint of view. July 15: Labs reviewed. Renal parameters stable. July 14: No labs from today. Continue per current management. Check labs tomorrow. July 13: No labs drawn today. Stable from renal standpoint of view. July 12: Today's labs pending. Medication list reviewed. Continue per current management and consultants. July 11: Labs reviewed. Renal parameters stable. July 10: Labs reviewed. Renal parameters electrolytes stable. Continue per consultants. July 09: Labs reviewed. Renal parameters and electrolytes stable. Continue per ID and pulmonary. Subjective ROS Limited/Unobtainable: Yes Objective Objective Last 24 Hour Vital Signs Date Time Temp Pulse Resp B/P (MAP) Pulse Ox O2 Delivery O2 Flow Rate FiO2 08/11/20 12:00 100 08/11/20 12:00 99.1 69 15 122/70 (87) 100 08/11/20 12:00 Mechanical Ventilator 08/11/20 11:30 79 20 130/74 (92) 97 08/11/20 11:00 56 21 121/68 (85) 98 08/11/20 10:30 58 19 112/72 (85) 97 08/11/20 10:00 61 13 111/61 (78) 97 08/11/20 09:59 22 125/74 Mechanical Ventilator 100 08/11/20 09:30 51 22 120/69 (86) 100 08/11/20 09:00 56 22 124/72 (89) 100 08/11/20 08:30 53 22 108/65 (79) 100 08/11/20 08:09 55 114/69 08/11/20 08:00 97.0 60 22 114/69 (84) 99 08/11/20 08:00 Mechanical Ventilator 08/11/20 08:00 22 128/73 Mechanical Ventilator 100 08/11/20 08:00 100 08/11/20 07:41 22 114/67 Mechanical Ventilator 100 08/11/20 07:30 54 22 114/67 (83) 99 08/11/20 07:30 22 114/67 Mechanical Ventilator 100 08/11/20 07:25 51 22 100 08/11/20 07:00 48 15 128/72 (90) 99 08/11/20 07:00 22 128/72 Mechanical Ventilator 100 08/11/20 07:00 22 128/72 Mechanical Ventilator 100 08/11/20 06:30 48 21 116/65 (82) 99 08/11/20 06:15 46 22 116/72 (87) 100 08/11/20 06:00 48 22 130/71 (90) 100 08/11/20 06:00 22 131/76 Mechanical Ventilator 100 08/11/20 06:00 22 131/76 Mechanical Ventilator 100 08/11/20 05:45 54 14 131/76 (94) 100 08/11/20 05:30 65 0 126/63 (84) 100 08/11/20 05:15 75 21 105/87 (93) 100 08/11/20 05:12 53 22 100 08/11/20 05:00 52 22 120/67 (84) 100 08/11/20 05:00 22 105/87 Mechanical Ventilator 100 08/11/20 05:00 22 105/87 Mechanical Ventilator 100 08/11/20 04:45 57 22 113/63 (80) 100 08/11/20 04:30 53 22 114/70 (85) 100 08/11/20 04:29 22 118/66 Mechanical Ventilator 100 08/11/20 04:15 56 22 118/66 (83) 100 08/11/20 04:00 Mechanical Ventilator 08/11/20 04:00 22 118/66 Mechanical Ventilator 100 08/11/20 04:00 22 118/66 Mechanical Ventilator 100 08/11/20 04:00 96.2 46 22 115/70 (85) 100 08/11/20 04:00 100 08/11/20 04:00 56 08/11/20 03:45 48 22 127/74 (91) 100 08/11/20 03:30 50 22 118/67 (84) 100 08/11/20 03:15 45 22 121/73 (89) 100 08/11/20 03:06 47 22 100 08/11/20 03:00 22 121/73 Mechanical Ventilator 100 08/11/20 03:00 22 121/73 Mechanical Ventilator 100 08/11/20 03:00 44 22 122/73 (89) 100 08/11/20 02:45 47 22 128/71 (90) 100 08/11/20 02:30 54 23 141/77 (98) 98 08/11/20 02:15 57 22 133/76 (95) 100 08/11/20 02:00 51 22 123/69 (87) 100 08/11/20 02:00 22 133/76 Mechanical Ventilator 100 08/11/20 02:00 22 133/76 Mechanical Ventilator 100 08/11/20 01:45 53 22 124/65 (84) 100 08/11/20 01:30 49 22 123/69 (87) 100 08/11/20 01:15 50 22 127/68 (87) 100 08/11/20 01:08 51 22 100 08/11/20 01:00 53 22 122/70 (87) 100 08/11/20 01:00 22 124/65 Mechanical Ventilator 100 08/11/20 01:00 22 124/65 Mechanical Ventilator 100 08/11/20 00:45 57 22 114/68 (83) 99 08/11/20 00:30 58 22 121/67 (85) 99 08/11/20 00:15 60 22 125/65 (85) 99 08/11/20 00:00 22 125/65 Mechanical Ventilator 100 08/11/20 00:00 22 125/65 Mechanical Ventilator 100 08/11/20 00:00 Mechanical Ventilator 08/11/20 00:00 54 08/11/20 00:00 96.5 64 22 136/69 (91) 98 08/11/20 00:00 100 08/10/20 23:45 55 22 125/77 (93) 99 08/10/20 23:30 56 22 126/72 (90) 99 08/10/20 23:29 22 128/71 Mechanical Ventilator 100 08/10/20 23:15 53 22 128/71 (90) 99 08/10/20 23:04 53 22 100 08/10/20 23:00 22 128/71 Mechanical Ventilator 100 08/10/20 23:00 22 128/71 Mechanical Ventilator 100 08/10/20 23:00 57 22 126/67 (86) 99 08/10/20 22:53 22 131/79 Mechanical Ventilator 100 08/10/20 22:45 54 22 131/79 (96) 99 08/10/20 22:30 56 22 116/68 (84) 99 08/10/20 22:15 60 22 124/68 (86) 99 08/10/20 22:00 60 22 124/73 (90) 100 08/10/20 22:00 22 124/68 Mechanical Ventilator 100 08/10/20 22:00 22 124/68 Mechanical Ventilator 100 08/10/20 21:45 55 22 125/71 (89) 99 08/10/20 21:30 54 22 121/72 (88) 99 08/10/20 21:15 69 22 137/77 (97) 99 08/10/20 21:07 62 22 100 08/10/20 21:00 51 22 130/73 (92) 99 08/10/20 21:00 22 137/77 Mechanical Ventilator 100 08/10/20 21:00 22 137/77 Mechanical Ventilator 100 08/10/20 20:45 55 22 130/77 (94) 99 08/10/20 20:30 56 22 131/78 (95) 99 08/10/20 20:15 57 22 128/76 (93) 98 08/10/20 20:00 59 08/10/20 20:00 Mechanical Ventilator 08/10/20 20:00 100 08/10/20 20:00 22 128/76 Mechanical Ventilator 100 08/10/20 20:00 22 128/76 Mechanical Ventilator 100 08/10/20 20:00 98.8 57 22 125/74 (91) 99 08/10/20 19:45 56 22 132/74 (93) 99 08/10/20 19:30 60 22 124/72 (89) 99 08/10/20 19:15 70 22 131/73 (92) 99 08/10/20 19:04 60 23 100 08/10/20 19:00 23 120/77 Mechanical Ventilator 100 08/10/20 19:00 22 120/77 Mechanical Ventilator 100 08/10/20 19:00 59 21 120/77 (91) 97 08/10/20 18:00 23 129/76 Mechanical Ventilator 100 08/10/20 18:00 23 129/76 Mechanical Ventilator 100 08/10/20 18:00 60 22 129/76 (93) 99 08/10/20 17:30 68 22 132/67 (88) 100 08/10/20 17:14 23 123/70 Mechanical Ventilator 100 08/10/20 17:00 23 123/70 Mechanical Ventilator 100 08/10/20 17:00 23 123/70 Mechanical Ventilator 100 08/10/20 17:00 71 22 123/70 (87) 99 08/10/20 16:30 59 22 121/70 (87) 97 08/10/20 16:02 64 08/10/20 16:00 Mechanical Ventilator 08/10/20 16:00 22 114/71 Mechanical Ventilator 100 08/10/20 16:00 22 113/72 Mechanical Ventilator 100 08/10/20 16:00 100 08/10/20 16:00 98.6 60 22 114/71 (85) 97 08/10/20 15:30 60 22 122/70 (87) 98 08/10/20 15:13 64 25 100 08/10/20 15:00 22 120/68 Mechanical Ventilator 100 08/10/20 15:00 22 120/68 Mechanical Ventilator 100 08/10/20 15:00 62 21 127/68 (87) 98 08/10/20 14:45 23 120/69 Mechanical Ventilator 100 08/10/20 14:15 98.6 62 24 123/74 (90) 94 08/10/20 14:00 22 130/80 Mechanical Ventilator 100 08/10/20 14:00 22 130/80 Mechanical Ventilator 100 08/10/20 14:00 66 23 123/74 (90) 94 Intake and Output 08/10/20 08/11/20 19:00 07:00 Intake Total 1548.16 ml 1600 ml Output Total 1110 ml 1525 ml Balance 438.16 ml 75 ml Free Water 100 ml IV Total 788.16 ml 840 ml Tube Feeding 660 ml 660 ml Other 100 ml Output Urine Total 1110 ml 1525 ml # Bowel Movements 10 Current Medications Medications (Trade) Dose Ordered Sig/Marian Route PRN Reason Start Time Stop Time Status Last Admin Dose Admin Acetaminophen (Tylenol) 650 mg Q4H PRN RECTAL Temp >100.5 07/18/20 18:30 08/17/20 18:29 08/01/20 16:50 Chlorhexidine Gluconate (Rafaela-Hex 2%) 1 applic DAILY@2000 TOPIC 08/01/20 20:00 10/30/20 19:59 08/10/20 20:21 Dextrose (Dextrose 50%) 25 ml Q30M PRN IV Hypoglycemia 07/07/20 15:45 10/05/20 15:44 Dextrose (Dextrose 50%) 50 ml Q30M PRN IV Hypoglycemia 07/07/20 15:45 10/05/20 15:44 Famotidine (Pepcid I.v.) 20 mg Q12HR IVP 07/20/20 09:00 08/19/20 08:59 08/11/20 08:08 Fentanyl Citrate 250 ml @ 0 mls/hr Q24H PRN IV . 08/09/20 10:30 08/11/20 16:00 08/11/20 07:41 Fentanyl Citrate 250 ml @ 1 mls/hr Q24H IV 08/11/20 16:01 08/13/20 16:00 Furosemide (Lasix) 20 mg EVERY 12 HOURS IV 08/10/20 09:00 09/09/20 08:59 08/11/20 08:08 Insulin Aspart (NovoLOG) Q6HR SUBQ 07/26/20 12:00 10/24/20 11:59 08/11/20 11:23 Insulin Detemir (Levemir) 30 units Q12HR SUBQ 08/01/20 21:00 10/24/20 10:29 08/11/20 08:09 Methylprednisolone Sodium Succinate (Solu-MEDROL) 20 mg EVERY 6 HOURS IVP 07/22/20 12:00 10/19/20 08:59 08/11/20 11:22 Metoprolol Tartrate (Lopressor) 25 mg EVERY 12 HOURS NG 07/26/20 21:00 10/24/20 20:59 08/04/20 20:45 Midazolam HCl 200 ml @ 0 mls/hr Q24H PRN IV To Patient Comfort 08/10/20 15:51 08/12/20 15:50 08/11/20 09:59 Sorbitol (sorbitoL) 45 ml Q12HR PRN ORAL Constipation 07/30/20 09:15 08/29/20 09:14 Laboratory Tests 08/10/20 17:18: POC Whole Blood Glucose 216H 08/10/20 20:26: POC Whole Blood Glucose 210H 08/11/20 00:02: POC Whole Blood Glucose 215H 08/11/20 05:39: POC Whole Blood Glucose 200H Height (Feet): 5 Height (Inches): 3.00 Weight (Pounds): 162 General Appearance: no apparent distress EENT: other - Intubated on ventilator Cardiovascular: tachycardia Respiratory/Chest: decreased breath sounds Abdomen: distended Objective No change Anurag Bridges MD Aug 11, 2020 13:55
[2020-08-11] MEDS: fentaNYL 2500mcg/NS 250ml 250 ML IV SCH (16:00)
--- NOTE | 2020-08-11 16:10 | NUR ---
NURSE NOTES: Bed bath given as ordered. Kept dry, clean and comfortable.
--- NOTE | 2020-08-11 16:36 | General Progress Note ---
Subjective ROS Limited/Unobtainable: No Allergies: Coded Allergies: No Known Allergies (Unverified , 07/07/20) Subjective no event over night on 100 % o2 on pressor tolerating TF Objective Last 24 Hour Vital Signs Date Time Temp Pulse Resp B/P (MAP) Pulse Ox O2 Delivery O2 Flow Rate FiO2 08/11/20 16:00 Mechanical Ventilator 08/11/20 16:00 98.2 54 22 116/72 (87) 100 08/11/20 16:00 52 08/11/20 16:00 100 08/11/20 16:00 20 117/70 Mechanical Ventilator 100 08/11/20 15:30 50 22 117/72 (87) 100 08/11/20 15:00 55 22 122/72 (89) 100 08/11/20 14:53 23 124/73 Mechanical Ventilator 100 08/11/20 14:30 70 22 130/68 (88) 100 08/11/20 14:00 22 133/57 Mechanical Ventilator 100 08/11/20 14:00 22 133/57 Mechanical Ventilator 100 08/11/20 14:00 57 12 112/76 (88) 94 08/11/20 13:30 59 12 120/69 (86) 96 08/11/20 13:00 12 122/74 Mechanical Ventilator 100 08/11/20 13:00 12 122/74 Mechanical Ventilator 100 08/11/20 13:00 63 15 125/76 (92) 98 08/11/20 12:30 75 16 144/76 (98) 98 08/11/20 12:00 100 08/11/20 12:00 99.1 69 15 122/70 (87) 100 08/11/20 12:00 15 113/68 Mechanical Ventilator 100 08/11/20 12:00 15 113/68 Mechanical Ventilator 100 08/11/20 12:00 78 08/11/20 12:00 Mechanical Ventilator 08/11/20 11:30 79 20 130/74 (92) 97 08/11/20 11:00 17 113/72 Mechanical Ventilator 100 08/11/20 11:00 17 113/72 Mechanical Ventilator 100 08/11/20 11:00 56 21 121/68 (85) 98 08/11/20 10:30 58 19 112/72 (85) 97 08/11/20 10:00 61 13 111/61 (78) 97 08/11/20 10:00 19 114/66 Mechanical Ventilator 100 08/11/20 09:59 22 125/74 Mechanical Ventilator 100 08/11/20 09:30 51 22 120/69 (86) 100 08/11/20 09:00 56 22 124/72 (89) 100 08/11/20 09:00 22 125/74 Mechanical Ventilator 100 08/11/20 08:30 53 22 108/65 (79) 100 08/11/20 08:09 55 114/69 08/11/20 08:00 97.0 60 22 114/69 (84) 99 08/11/20 08:00 Mechanical Ventilator 08/11/20 08:00 22 128/73 Mechanical Ventilator 100 08/11/20 08:00 22 128/73 Mechanical Ventilator 100 08/11/20 08:00 57 08/11/20 08:00 100 08/11/20 07:41 22 114/67 Mechanical Ventilator 100 08/11/20 07:30 54 22 114/67 (83) 99 08/11/20 07:30 22 114/67 Mechanical Ventilator 100 08/11/20 07:25 51 22 100 08/11/20 07:00 48 15 128/72 (90) 99 08/11/20 07:00 22 128/72 Mechanical Ventilator 100 08/11/20 07:00 22 128/72 Mechanical Ventilator 100 08/11/20 06:30 48 21 116/65 (82) 99 08/11/20 06:15 46 22 116/72 (87) 100 08/11/20 06:00 48 22 130/71 (90) 100 08/11/20 06:00 22 131/76 Mechanical Ventilator 100 08/11/20 06:00 22 131/76 Mechanical Ventilator 100 08/11/20 05:45 54 14 131/76 (94) 100 08/11/20 05:30 65 0 126/63 (84) 100 08/11/20 05:15 75 21 105/87 (93) 100 08/11/20 05:12 53 22 100 08/11/20 05:00 52 22 120/67 (84) 100 08/11/20 05:00 22 105/87 Mechanical Ventilator 100 08/11/20 05:00 22 105/87 Mechanical Ventilator 100 08/11/20 04:45 57 22 113/63 (80) 100 08/11/20 04:30 53 22 114/70 (85) 100 08/11/20 04:29 22 118/66 Mechanical Ventilator 100 08/11/20 04:15 56 22 118/66 (83) 100 08/11/20 04:00 Mechanical Ventilator 08/11/20 04:00 22 118/66 Mechanical Ventilator 100 08/11/20 04:00 22 118/66 Mechanical Ventilator 100 08/11/20 04:00 96.2 46 22 115/70 (85) 100 08/11/20 04:00 100 08/11/20 04:00 56 08/11/20 03:45 48 22 127/74 (91) 100 08/11/20 03:30 50 22 118/67 (84) 100 08/11/20 03:15 45 22 121/73 (89) 100 08/11/20 03:06 47 22 100 08/11/20 03:00 22 121/73 Mechanical Ventilator 100 08/11/20 03:00 22 121/73 Mechanical Ventilator 100 08/11/20 03:00 44 22 122/73 (89) 100 08/11/20 02:45 47 22 128/71 (90) 100 08/11/20 02:30 54 23 141/77 (98) 98 08/11/20 02:15 57 22 133/76 (95) 100 08/11/20 02:00 51 22 123/69 (87) 100 08/11/20 02:00 22 133/76 Mechanical Ventilator 100 08/11/20 02:00 22 133/76 Mechanical Ventilator 100 08/11/20 01:45 53 22 124/65 (84) 100 08/11/20 01:30 49 22 123/69 (87) 100 08/11/20 01:15 50 22 127/68 (87) 100 08/11/20 01:08 51 22 100 08/11/20 01:00 53 22 122/70 (87) 100 08/11/20 01:00 22 124/65 Mechanical Ventilator 100 08/11/20 01:00 22 124/65 Mechanical Ventilator 100 08/11/20 00:45 57 22 114/68 (83) 99 08/11/20 00:30 58 22 121/67 (85) 99 08/11/20 00:15 60 22 125/65 (85) 99 08/11/20 00:00 22 125/65 Mechanical Ventilator 100 08/11/20 00:00 22 125/65 Mechanical Ventilator 100 08/11/20 00:00 Mechanical Ventilator 08/11/20 00:00 54 08/11/20 00:00 96.5 64 22 136/69 (91) 98 08/11/20 00:00 100 08/10/20 23:45 55 22 125/77 (93) 99 08/10/20 23:30 56 22 126/72 (90) 99 08/10/20 23:29 22 128/71 Mechanical Ventilator 100 08/10/20 23:15 53 22 128/71 (90) 99 08/10/20 23:04 53 22 100 08/10/20 23:00 22 128/71 Mechanical Ventilator 100 08/10/20 23:00 22 128/71 Mechanical Ventilator 100 08/10/20 23:00 57 22 126/67 (86) 99 08/10/20 22:53 22 131/79 Mechanical Ventilator 100 08/10/20 22:45 54 22 131/79 (96) 99 08/10/20 22:30 56 22 116/68 (84) 99 08/10/20 22:15 60 22 124/68 (86) 99 08/10/20 22:00 60 22 124/73 (90) 100 08/10/20 22:00 22 124/68 Mechanical Ventilator 100 08/10/20 22:00 22 124/68 Mechanical Ventilator 100 08/10/20 21:45 55 22 125/71 (89) 99 08/10/20 21:30 54 22 121/72 (88) 99 08/10/20 21:15 69 22 137/77 (97) 99 08/10/20 21:07 62 22 100 08/10/20 21:00 51 22 130/73 (92) 99 08/10/20 21:00 22 137/77 Mechanical Ventilator 100 08/10/20 21:00 22 137/77 Mechanical Ventilator 100 08/10/20 20:45 55 22 130/77 (94) 99 08/10/20 20:30 56 22 131/78 (95) 99 08/10/20 20:15 57 22 128/76 (93) 98 08/10/20 20:00 59 08/10/20 20:00 Mechanical Ventilator 08/10/20 20:00 100 08/10/20 20:00 22 128/76 Mechanical Ventilator 100 08/10/20 20:00 22 128/76 Mechanical Ventilator 100 08/10/20 20:00 98.8 57 22 125/74 (91) 99 08/10/20 19:45 56 22 132/74 (93) 99 08/10/20 19:30 60 22 124/72 (89) 99 08/10/20 19:15 70 22 131/73 (92) 99 08/10/20 19:04 60 23 100 08/10/20 19:00 23 120/77 Mechanical Ventilator 100 08/10/20 19:00 22 120/77 Mechanical Ventilator 100 08/10/20 19:00 59 21 120/77 (91) 97 08/10/20 18:00 23 129/76 Mechanical Ventilator 100 08/10/20 18:00 23 129/76 Mechanical Ventilator 100 08/10/20 18:00 60 22 129/76 (93) 99 08/10/20 17:30 68 22 132/67 (88) 100 08/10/20 17:14 23 123/70 Mechanical Ventilator 100 08/10/20 17:00 23 123/70 Mechanical Ventilator 100 08/10/20 17:00 23 123/70 Mechanical Ventilator 100 08/10/20 17:00 71 22 123/70 (87) 99 Intake and Output 08/10/20 08/11/20 19:00 07:00 Intake Total 1548.16 ml 1600 ml Output Total 1110 ml 1525 ml Balance 438.16 ml 75 ml Free Water 100 ml IV Total 788.16 ml 840 ml Tube Feeding 660 ml 660 ml Other 100 ml Output Urine Total 1110 ml 1525 ml # Bowel Movements 10 Laboratory Tests 08/10/20 17:18: POC Whole Blood Glucose 216H 08/10/20 20:26: POC Whole Blood Glucose 210H 08/11/20 00:02: POC Whole Blood Glucose 215H 08/11/20 05:39: POC Whole Blood Glucose 200H Height (Feet): 5 Height (Inches): 3.00 Weight (Pounds): 162 General Appearance: no apparent distress EENT: normal ENT inspection Neck: supple Cardiovascular: normal rate Respiratory/Chest: decreased breath sounds Abdomen: hypoactive bowel sounds Extremities: non-tender Assessment/Plan Problem List: (1) Dysphagia ICD Codes: R13.10 - Dysphagia, unspecified SNOMED: 39828404, 840941443 (2) COVID-19 virus infection ICD Codes: U07.1 - COVID-19 SNOMED: 094277033 (3) HTN (hypertension) ICD Codes: I10 - Essential (primary) hypertension SNOMED: 08791593 (4) DMII (diabetes mellitus, type 2) ICD Codes: E11.9 - Type 2 diabetes mellitus without complications SNOMED: 85980794 Qualifiers: Qualified Codes: E11.69 - Type 2 diabetes mellitus with other specified complication Status: not improved Assessment/Plan: coverage note for dr Malcolm intubated DM control fu pulm and cardiology recs NGTF rectal tube still on 100 %o2 DNR repeat labs s/p blood transfusion poor prognosis Steffen De Luna MD Aug 11, 2020 16:36
--- NOTE | 2020-08-11 16:44 | NUR ---
NURSE NOTES: Seen by Dr. De Luna and assessed patient. No new orders at this time.
--- NOTE | 2020-08-11 17:42 | NUR ---
NURSE NOTES: Put P200 mattress on the bed. Patient is still on fentanyl 300mcg/hr and versed 20mg/hr to meet RASS -2. Kept dry, clean and comfortable. Will continue plan of care.
--- NOTE | 2020-08-11 19:02 | NUR ---
NURSE HAND-OFF REPORT: Latest Vital Signs: Temperature 98.2 , Pulse 78 , B/P 134 /81 , Respiratory Rate 23 , O2 SAT 100 , Mechanical Ventilator, O2 Flow Rate . Vital Sign Comment: stable EKG Rhythm: Sinus Arrhythmia Rhythm change?: N MD Notified?: N - MD Response: Latest Plaza Fall Score: 50 Fall Risk: High Risk Safety Measures: Call light Within Reach, Bed Alarm Zone 3, Side Rails Side Rails x2, Bed position Low and Locked. Fall Precautions: Yellow Socks Yellow Gown Door Sign Patient Fall Education Report given to LIANA Echeverria. Endorsed plan of care.
--- NOTE | 2020-08-11 20:30 | NUR ---
Assessment complete. Pt having small bouts of agitation/coughing/bucking of vent. Respiratory Therapy weaned FiO2 to 90%, pt tolerated for a short period of time before dropping O2 saturation to 85%. Placed back on 100% FiO2. Pt repositioned and oral care provided. Daughter face time called from the [facility] to see and speak to patient. Will continue to monitor.
[2020-08-11] MEDS: Dyna-Hex 2% Top Sol 2oz TOPIC SCH (21:09)
--- NOTE | 2020-08-11 22:28 | NUR ---
Called Dr. Edward to report agitation in patient despite max sedation of Versed and Fentanyl. Cheyanne gave verbal order for Propofol.
[2020-08-11] MEDS: propofoL 1,000mg/100ml 100 ML IV SCH (22:44)
[2020-08-12] VITALS (39 sets, daily range): BP systolic 90–212; BP diastolic 55–112
--- NOTE | 2020-08-12 00:25 | NUR ---
Midnight assessment complete. Pt appears more comfortable and sedated on the propofol gtt at this time. Pt in no acute distress. VSS. Patient repositioned and oral care provided. No changes in assessment.
[2020-08-12] MEDS: fentaNYL 2500mcg/NS 250ml 250 ML IV SCH ×3 (00:43→16:36)
--- NOTE | 2020-08-12 02:06 | NUR ---
Pt remains stable, no changes.
--- NOTE | 2020-08-12 04:20 | NUR ---
Complete bath done on patient. Central line dressing changed. Dressings applied to inner thighs, see charting for details. 0400 assessment completed, see charting also for details. VSS on patient. Sedation had to be increased due to drowsiness and not fully sedated to a RASS -2. Once sedation was increased patient became a RASS -2. Oral care provided. Pt bleeding more kirti red blood in oral cavity this am than prior in shift. Ointment applied to lips and mouth. Pt in no acute distress.
[2020-08-12 04:48] LABS: HEMATOCRIT 31.7 % (37.0-47.0); HEMOGLOBIN 10.2 G/DL (12.0-16.0); MEAN CORPUSCULAR VOLUME 90 FL (80-99); PLATELET COUNT 92 K/UL (150-450); RED BLOOD COUNT 3.53 M/UL (4.20-5.40); RED CELL DISTRIBUTION WIDTH 15.9 % (11.6-14.8); WHITE BLOOD COUNT 13.2 K/UL (4.8-10.8)
[2020-08-12 05:06] LABS: ALANINE AMINOTRANSFERASE 112 U/L (12-78); ALBUMIN 1.9 G/DL (3.4-5.0); ALBUMIN/GLOBULIN RATIO 0.6 (1.0-2.7); ALKALINE PHOSPHATASE 98 U/L (46-116); ANION GAP 5 mmol/L (5-15); ASPARTATE AMINO TRANSFERASE 37 U/L (15-37); BILIRUBIN,TOTAL 0.3 MG/DL (0.2-1.0); BLOOD UREA NITROGEN 37 mg/dL (7-18); CALCIUM 8.5 MG/DL (8.5-10.1); CARBON DIOXIDE 33 MMOL/L (21-32); CHLORIDE 111 MMOL/L (98-107); CREATININE 0.7 MG/DL (0.55-1.30); PHOSPHORUS 2.8 MG/DL (2.5-4.9); POTASSIUM 4.2 MMOL/L (3.5-5.1); SODIUM 149 MMOL/L (136-145); TRIGLYCERIDES 320 MG/DL (30-150)
[2020-08-12] MEDS: NovoLOG Insulin Flexpen SUBQ SCH ×4 (06:08→17:18)
[2020-08-12] MEDS: Solu-MEDROL 40mg Inj IVP SCH ×4 (06:08→17:18)
--- NOTE | 2020-08-12 06:19 | NUR ---
No changes since last note. Pt remains stable.
--- NOTE | 2020-08-12 07:10 | NUR ---
NURSE NOTES: Report received from Jacki mann RN.Pt sedated,orally intubated,ETT7.5,lip line 24cm,AC22,TV450,Fio2 100%,Peep12,no resp distress presented,no signs of pain or discomfort,S-R on the monitor,OGT feeding Glucerna 1.2 at 55 ml/hr ,no residual noted in placed per auscultation, oral and nasal bleeding noted, skin warm dry and edematous,,on P 200 mattress,sacral DTI,IV site to RT Femoral line TLC intact ,Fentanyl drip at 300 mcg/hr and Propofol drip at 20 mcg/kg/min.,SR up x2 HOB elevated bed lock in lowest position,will continue with plans of care.
--- NOTE | 2020-08-12 07:18 | NUR ---
Report given to LIANA Dickens who assumed care of patient.
[2020-08-12] MEDS: Levemir Flexpen SUBQ SCH ×2 (08:51→22:28)
[2020-08-12] MEDS: propofoL 1,000mg/100ml 100 ML IV SCH (09:00)
--- NOTE | 2020-08-12 09:00 | NUR ---
NURSE NOTES: pt with bleeding mouth and nose,oral care done,oral secretions suctioned to large amount of thick bloody secretions.,HOB elevated.
--- NOTE | 2020-08-12 10:59 | Pulmonology Progress Note ---
Subjective ROS Limited/Unobtainable: No Interval Events: S/p intubation; s/p transfusion; Pt did not tolerate 90% FiO2 yesterday Constitutional: Denies: fever HEENT: Repors: no symptoms Respiratory: Reports: shortness of breath Gastrointestinal/Abdominal: Reports: no symptoms Psychiatric: Reports: no symptoms Skin: Reports: no symptoms Musculoskeletal: Reports: no symptoms Allergies: Coded Allergies: No Known Allergies (Unverified , 07/07/20) Objective Last 24 Hour Vital Signs Date Time Temp Pulse Resp B/P (MAP) Pulse Ox O2 Delivery O2 Flow Rate FiO2 08/12/20 10:00 81 28 141/71 (94) 94 08/12/20 10:00 28 141/71 Mechanical Ventilator 100 08/12/20 10:00 28 141/71 Mechanical Ventilator 100 08/12/20 09:01 116 149/41 08/12/20 09:00 22 149/41 Mechanical Ventilator 100 08/12/20 09:00 26 172/99 Mechanical Ventilator 100 08/12/20 09:00 105 26 172/99 (123) 91 08/12/20 08:46 22 149/41 Mechanical Ventilator 100 08/12/20 08:00 112 08/12/20 08:00 Mechanical Ventilator 08/12/20 08:00 31 175/80 Mechanical Ventilator 100 08/12/20 08:00 31 175/80 Mechanical Ventilator 100 08/12/20 08:00 97.7 102 28 168/103 (124) 95 08/12/20 08:00 100 08/12/20 07:28 112 31 100 08/12/20 07:00 61 25 129/66 (87) 97 08/12/20 07:00 27 149/77 Mechanical Ventilator 100 08/12/20 07:00 27 149/77 Mechanical Ventilator 100 08/12/20 06:00 22 138/73 Mechanical Ventilator 100 08/12/20 06:00 22 138/73 Mechanical Ventilator 100 08/12/20 05:45 66 24 146/78 (100) 100 08/12/20 05:30 79 23 145/83 (103) 99 08/12/20 05:17 97 30 159/77 (104) 92 08/12/20 05:00 25 159/77 Mechanical Ventilator 100 08/12/20 05:00 25 159/77 Mechanical Ventilator 100 08/12/20 04:30 88 22 155/96 (115) 99 08/12/20 04:15 105 30 153/92 (112) 94 08/12/20 04:00 98.3 102 28 167/96 (119) 96 08/12/20 04:00 80 08/12/20 04:00 34 153/92 Mechanical Ventilator 100 08/12/20 04:00 28 153/92 Mechanical Ventilator 100 08/12/20 04:00 Mechanical Ventilator 08/12/20 04:00 100 08/12/20 03:45 81 24 157/93 (114) 98 08/12/20 03:32 70 23 100 08/12/20 03:30 93 30 163/96 (118) 97 08/12/20 03:15 70 23 144/83 (103) 100 08/12/20 03:00 71 23 144/88 (106) 99 08/12/20 03:00 22 144/83 Mechanical Ventilator 100 08/12/20 03:00 22 144/83 Mechanical Ventilator 100 08/12/20 02:45 75 24 139/83 (101) 97 08/12/20 02:30 77 25 139/80 (99) 99 08/12/20 02:15 74 22 143/82 (102) 99 08/12/20 02:00 59 24 127/75 (92) 96 08/12/20 02:00 22 126/86 Mechanical Ventilator 100 08/12/20 02:00 22 126/86 Mechanical Ventilator 100 08/12/20 01:45 60 22 130/77 (94) 97 08/12/20 01:30 62 23 126/74 (91) 98 08/12/20 01:15 62 23 118/78 (91) 99 08/12/20 01:00 64 24 130/73 (92) 99 08/12/20 01:00 22 139/83 Mechanical Ventilator 100 08/12/20 01:00 22 139/83 Mechanical Ventilator 100 08/12/20 00:45 70 23 131/79 (96) 100 08/12/20 00:43 24 134/75 Mechanical Ventilator 100 08/12/20 00:30 74 22 134/75 (94) 100 08/12/20 00:15 66 22 110/68 (82) 97 08/12/20 00:00 Mechanical Ventilator 08/12/20 00:00 71 08/12/20 00:00 98.5 64 22 117/67 (84) 97 08/12/20 00:00 100 08/12/20 00:00 22 110/68 Mechanical Ventilator 100 08/12/20 00:00 22 110/68 Mechanical Ventilator 100 08/11/20 23:45 63 22 111/74 (86) 97 08/11/20 23:30 59 22 108/73 (85) 97 08/11/20 23:15 60 22 108/64 (79) 97 08/11/20 23:15 70 21 100 08/11/20 23:00 32 142/86 Mechanical Ventilator 100 08/11/20 23:00 28 142/86 Mechanical Ventilator 100 08/11/20 23:00 60 22 110/73 (85) 98 08/11/20 22:45 59 22 120/74 (89) 98 08/11/20 22:44 28 118/77 Mechanical Ventilator 100 08/11/20 22:44 32 139/76 Mechanical Ventilator 100 08/11/20 22:30 67 22 118/77 (91) 99 08/11/20 22:15 77 24 139/76 (97) 96 08/11/20 22:00 22 139/76 Mechanical Ventilator 100 08/11/20 22:00 28 139/76 Mechanical Ventilator 100 08/11/20 22:00 57 13 117/74 (88) 98 08/11/20 21:45 59 18 125/73 (90) 100 08/11/20 21:30 65 0 142/74 (96) 100 08/11/20 21:15 60 14 120/71 (87) 99 08/11/20 21:10 22 124/76 Mechanical Ventilator 100 08/11/20 21:10 22 124/76 Mechanical Ventilator 100 08/11/20 21:00 64 10 124/76 (92) 100 08/11/20 21:00 22 120/71 Mechanical Ventilator 100 08/11/20 21:00 22 120/71 Mechanical Ventilator 100 08/11/20 21:00 46 124/76 08/11/20 20:45 73 8 143/78 (99) 94 08/11/20 20:30 71 13 123/71 (88) 98 08/11/20 20:15 71 20 125/64 (84) 98 08/11/20 20:00 81 08/11/20 20:00 22 125/64 Mechanical Ventilator 100 08/11/20 20:00 22 125/64 Mechanical Ventilator 100 08/11/20 20:00 98.5 74 19 136/74 (94) 99 08/11/20 20:00 Mechanical Ventilator 08/11/20 20:00 100 08/11/20 19:45 73 23 127/77 (94) 98 08/11/20 19:30 72 22 146/80 (102) 100 08/11/20 19:30 73 22 100 08/11/20 19:15 61 22 114/78 (90) 95 08/11/20 19:00 64 24 121/78 (92) 96 08/11/20 19:00 22 114/78 Mechanical Ventilator 100 08/11/20 19:00 22 114/78 Mechanical Ventilator 100 08/11/20 18:00 78 22 130/79 (96) 100 08/11/20 18:00 23 134/81 Mechanical Ventilator 100 08/11/20 18:00 23 134/81 Mechanical Ventilator 100 08/11/20 17:30 66 22 104/70 (81) 100 08/11/20 17:00 22 130/77 Mechanical Ventilator 100 08/11/20 17:00 22 130/77 Mechanical Ventilator 100 08/11/20 17:00 58 22 125/81 (96) 100 08/11/20 16:46 56 27 100 08/11/20 16:30 57 22 121/68 (85) 100 08/11/20 16:00 Mechanical Ventilator 08/11/20 16:00 98.2 54 22 116/72 (87) 100 08/11/20 16:00 52 08/11/20 16:00 100 08/11/20 16:00 20 117/70 Mechanical Ventilator 100 08/11/20 16:00 22 122/72 Mechanical Ventilator 100 08/11/20 16:00 22 122/72 Mechanical Ventilator 100 08/11/20 15:30 50 22 117/72 (87) 100 08/11/20 15:00 22 127/73 Mechanical Ventilator 100 08/11/20 15:00 22 127/73 Mechanical Ventilator 100 08/11/20 15:00 22 124/73 Mechanical Ventilator 100 08/11/20 15:00 55 22 122/72 (89) 100 08/11/20 14:53 23 124/73 Mechanical Ventilator 100 08/11/20 14:52 22 124/73 Mechanical Ventilator 100 08/11/20 14:30 70 22 130/68 (88) 100 08/11/20 14:30 68 22 100 08/11/20 14:00 22 133/57 Mechanical Ventilator 100 08/11/20 14:00 22 133/57 Mechanical Ventilator 100 08/11/20 14:00 57 12 112/76 (88) 94 08/11/20 13:30 59 12 120/69 (86) 96 08/11/20 13:25 66 24 100 08/11/20 13:00 12 122/74 Mechanical Ventilator 100 08/11/20 13:00 12 122/74 Mechanical Ventilator 100 08/11/20 13:00 63 15 125/76 (92) 98 08/11/20 12:30 75 16 144/76 (98) 98 08/11/20 12:00 100 08/11/20 12:00 99.1 69 15 122/70 (87) 100 08/11/20 12:00 15 113/68 Mechanical Ventilator 100 08/11/20 12:00 15 113/68 Mechanical Ventilator 100 08/11/20 12:00 78 08/11/20 12:00 Mechanical Ventilator 08/11/20 11:30 79 20 130/74 (92) 97 08/11/20 11:27 78 23 100 08/11/20 11:00 17 113/72 Mechanical Ventilator 100 08/11/20 11:00 17 113/72 Mechanical Ventilator 100 08/11/20 11:00 56 21 121/68 (85) 98 Intake and Output 08/11/20 08/12/20 19:00 07:00 Intake Total 1459.2 ml 1197.667 ml Output Total 920 ml 1760 ml Balance 539.2 ml -562.333 ml Free Water 50 ml IV Total 749.2 ml 537.667 ml Tube Feeding 660 ml 660 ml Output Urine Total 840 ml 1510 ml Stool Total 80 ml 250 ml General Appearance: no acute distress HEENT: normocephalic Respiratory: decreased breath sounds Cardiovascular: normal peripheral pulses Abdomen: normal bowel sounds Laboratory Tests 08/11/20 21:15: POC Whole Blood Glucose [Pending] 08/12/20 03:30: White Blood Count 13.2H, Red Blood Count 3.53L, Hemoglobin 10.2L, Hematocrit 31.7L, Mean Corpuscular Volume 90, Mean Corpuscular Hemoglobin 29.0, Mean Corpuscular Hemoglobin Concent 32.3, Red Cell Distribution Width 15.9H, Platelet Count 92L, Mean Platelet Volume 9.2, Neutrophils (%) (Auto) , Lymphocytes (%) (Auto) , Monocytes (%) (Auto) , Eosinophils (%) (Auto) , Basophils (%) (Auto) , Differential Total Cells Counted 100, Neutrophils % (Manual) 94H, Lymphocytes % (Manual) 2L, Monocytes % (Manual) 4, Eosinophils % (Manual) 0, Basophils % (Manual) 0, Band Neutrophils 0, Platelet Estimate DecreasedL, Platelet Morphology Normal, Hypochromasia 1+, Basophilic Stippling 1+, Anisocytosis 1+, Sodium Level 149H, Potassium Level 4.2, Chloride Level 111H, Carbon Dioxide Level 33H, Anion Gap 5, Blood Urea Nitrogen 37H, Creatinine 0.7, Estimat Glomerular Filtration Rate > 60, Glucose Level 169H, Calcium Level 8.5, Phosphorus Level 2.8, Magnesium Level 1.8, Total Bilirubin 0.3, Aspartate Amino Transf (AST/SGOT) 37, Alanine Aminotransferase (ALT/SGPT) 112H, Alkaline Phosphatase 98, C-Reactive Protein, Quantitative < 0.4, Pro-B-Type Natriuretic Peptide 992H, Total Protein 4.9L, Albumin 1.9L, Globulin 3.0, Albumin/Globulin Ratio 0.6L, Triglycerides Level 320H Current Medications Medications (Trade) Dose Ordered Sig/Marian Route PRN Reason Start Time Stop Time Status Last Admin Dose Admin Acetaminophen (Tylenol) 650 mg Q4H PRN RECTAL Temp >100.5 07/18/20 18:30 08/17/20 18:29 08/01/20 16:50 Chlorhexidine Gluconate (Rafaela-Hex 2%) 1 applic DAILY@1999 TOPIC 08/01/20 20:00 10/30/20 19:59 08/11/20 21:09 Dextrose (Dextrose 50%) 25 ml Q30M PRN IV Hypoglycemia 07/07/20 15:45 10/05/20 15:44 Dextrose (Dextrose 50%) 50 ml Q30M PRN IV Hypoglycemia 07/07/20 15:45 10/05/20 15:44 Famotidine (Pepcid I.v.) 20 mg Q12HR IVP 07/20/20 09:00 08/19/20 08:59 08/12/20 08:48 Fentanyl Citrate 250 ml @ 1 mls/hr Q24H IV 08/11/20 16:01 08/13/20 16:00 08/12/20 08:46 Furosemide (Lasix) 20 mg EVERY 12 HOURS IV 08/10/20 09:00 09/09/20 08:59 08/12/20 08:48 Insulin Aspart (NovoLOG) Q6HR SUBQ 07/26/20 12:00 10/24/20 11:59 08/12/20 06:08 Insulin Detemir (Levemir) 30 units Q12HR SUBQ 08/01/20 21:00 10/24/20 10:29 08/12/20 08:51 Methylprednisolone Sodium Succinate (Solu-MEDROL) 20 mg EVERY 6 HOURS IVP 07/22/20 12:00 10/19/20 08:59 08/12/20 06:08 Metoprolol Tartrate (Lopressor) 25 mg EVERY 12 HOURS NG 07/26/20 21:00 10/24/20 20:59 08/12/20 09:01 Midazolam HCl 200 ml @ 0 mls/hr Q24H PRN IV To Patient Comfort 08/10/20 15:51 08/12/20 15:50 08/11/20 21:10 Propofol 100 ml @ 4.409 mls/ hr Q12H IV 08/11/20 22:30 08/13/20 22:29 08/12/20 09:00 Sorbitol (sorbitoL) 45 ml Q12HR PRN ORAL Constipation 07/30/20 09:15 08/29/20 09:14 Assessment/Plan Assessment/Plan 1. COVID-19 pneumonia. - COVID-19 PCR positive (07/07) - s/p remdexsivir, azithromycin - CXR (07/13) no significant change - f/u rapid COVID-19 (07/31) negative -> now off isolation 2. Hypoxemic respiratory distress - s/p decadron (07/08-07/17) - now on Solu-Medrol - intubated; on AC mode - FiO2 100 -> 80-> 100-> 80-> 100%; continue PEEP 7->8 -> 10-> 8 - >12 - episodically desaturates to 70% 3. Hypertension. - Required central line 08/01/20 -on Levophed 4. Diabetes mellitus. -on insulin sliding scale 5. DVT ppx - on Lovenox, full dose empirically; on hold now due to epistaxis - SCD in place 6. Sputum Cx shows pseudomonas and cony - continue cefepime per ID 7. Suspect bacterial infection given leukocytosis - s/p Diflucan, Cefepime, IV Vanco - s/p IV Bactrim for possible PJP 8. Pulmonary edema -Off lasix gtt 9. Anemia - No further epistaxis and oral bleeding - Transfuse prn Discussed with bedside RN. On Levemir DW family, family discussing possible extubation and comfort care Now DNR Dw family (08/10), family requests to continue current management visited ICU (08/11), continue current management The care of this patient was discussed with my supervising physician Time spent for this encounter was approximately 31 minutes Milton Howard Aug 12, 2020 10:59
--- NOTE | 2020-08-12 11:00 | NUR ---
NURSE NOTES: PA of Anita Shah at bedside,updated re pt's status ,informed re pt's with elevated Triglyceride 320,ordered to discontinue Propofol and may give Ativan 2 mg IV for sedation and agitation.
--- NOTE | 2020-08-12 11:34 | NUR ---
CASE MANAGEMENT:REVIEW 08/12/20 SI: COVID PNA. RESPIRATORY FAILURE~ INTUBATED 97.7 120 33 138/77 180/95 94% ON VENT W/100% FIO2 WBC+13.2 H/H-10.2/31.7 PLT-92 CO2+37 BNP+992 IS: FENTANYL GTT IV LASIX Q12 IV SOLUMEDROL Q6HRS IV PEPCID Q12 LOPRESSOR BG Q12 : ICU STATUS DCP: FROM HOME
[2020-08-12] MEDS ORDERED: LORazepam Inj 2mg/ml 1ml IV PRN (11:45)
--- NOTE | 2020-08-12 12:09 | Infectious Diseases Prog Note ---
Assessment/Plan Assessment/Plan A: 1. COVID-19 pneumonia. 2. Pseudomonas pneumonia. 3. Respiratory failure with hypoxemia & hypercapnia 4. Leukocytosis 5. DM 6. Epistaxis 7. Anemia PLAN: 1. tart on Cefepime 2. CXR 3. Case was D/W RN 4. Poor prognosis, DNR status Subjective ROS Limited/Unobtainable: Yes HEENT: Reports: other - bleeding from mouth & nose Allergies: Coded Allergies: No Known Allergies (Unverified , 07/07/20) Objective Last 24 Hour Vital Signs Date Time Temp Pulse Resp B/P (MAP) Pulse Ox O2 Delivery O2 Flow Rate FiO2 08/12/20 11:00 33 138/77 Mechanical Ventilator 100 08/12/20 11:00 33 138/77 Mechanical Ventilator 100 08/12/20 11:00 33 138/77 Mechanical Ventilator 100 08/12/20 11:00 33 138/63 Mechanical Ventilator 100 08/12/20 11:00 33 138/63 Mechanical Ventilator 100 08/12/20 11:00 33 138/63 Mechanical Ventilator 100 08/12/20 11:00 120 25 180/95 (123) 94 08/12/20 10:00 81 28 141/71 (94) 94 08/12/20 10:00 28 141/71 Mechanical Ventilator 100 08/12/20 10:00 28 141/71 Mechanical Ventilator 100 08/12/20 09:01 116 149/41 08/12/20 09:00 22 149/41 Mechanical Ventilator 100 08/12/20 09:00 26 172/99 Mechanical Ventilator 100 08/12/20 09:00 105 26 172/99 (123) 91 08/12/20 08:46 22 149/41 Mechanical Ventilator 100 08/12/20 08:00 112 08/12/20 08:00 Mechanical Ventilator 08/12/20 08:00 31 175/80 Mechanical Ventilator 100 08/12/20 08:00 31 175/80 Mechanical Ventilator 100 08/12/20 08:00 97.7 102 28 168/103 (124) 95 08/12/20 08:00 100 08/12/20 07:28 112 31 100 08/12/20 07:00 61 25 129/66 (87) 97 08/12/20 07:00 27 149/77 Mechanical Ventilator 100 08/12/20 07:00 27 149/77 Mechanical Ventilator 100 08/12/20 06:00 22 138/73 Mechanical Ventilator 100 08/12/20 06:00 22 138/73 Mechanical Ventilator 100 08/12/20 05:45 66 24 146/78 (100) 100 08/12/20 05:30 79 23 145/83 (103) 99 08/12/20 05:17 97 30 159/77 (104) 92 08/12/20 05:00 25 159/77 Mechanical Ventilator 100 08/12/20 05:00 25 159/77 Mechanical Ventilator 100 08/12/20 04:30 88 22 155/96 (115) 99 08/12/20 04:15 105 30 153/92 (112) 94 08/12/20 04:00 98.3 102 28 167/96 (119) 96 08/12/20 04:00 80 08/12/20 04:00 34 153/92 Mechanical Ventilator 100 08/12/20 04:00 28 153/92 Mechanical Ventilator 100 08/12/20 04:00 Mechanical Ventilator 08/12/20 04:00 100 08/12/20 03:45 81 24 157/93 (114) 98 08/12/20 03:32 70 23 100 08/12/20 03:30 93 30 163/96 (118) 97 08/12/20 03:15 70 23 144/83 (103) 100 08/12/20 03:00 71 23 144/88 (106) 99 08/12/20 03:00 22 144/83 Mechanical Ventilator 100 08/12/20 03:00 22 144/83 Mechanical Ventilator 100 08/12/20 02:45 75 24 139/83 (101) 97 08/12/20 02:30 77 25 139/80 (99) 99 08/12/20 02:15 74 22 143/82 (102) 99 08/12/20 02:00 59 24 127/75 (92) 96 08/12/20 02:00 22 126/86 Mechanical Ventilator 100 08/12/20 02:00 22 126/86 Mechanical Ventilator 100 08/12/20 01:45 60 22 130/77 (94) 97 08/12/20 01:30 62 23 126/74 (91) 98 08/12/20 01:15 62 23 118/78 (91) 99 08/12/20 01:00 64 24 130/73 (92) 99 08/12/20 01:00 22 139/83 Mechanical Ventilator 100 08/12/20 01:00 22 139/83 Mechanical Ventilator 100 08/12/20 00:45 70 23 131/79 (96) 100 08/12/20 00:43 24 134/75 Mechanical Ventilator 100 08/12/20 00:30 74 22 134/75 (94) 100 08/12/20 00:15 66 22 110/68 (82) 97 08/12/20 00:00 Mechanical Ventilator 08/12/20 00:00 71 08/12/20 00:00 98.5 64 22 117/67 (84) 97 08/12/20 00:00 100 08/12/20 00:00 22 110/68 Mechanical Ventilator 100 08/12/20 00:00 22 110/68 Mechanical Ventilator 100 08/11/20 23:45 63 22 111/74 (86) 97 08/11/20 23:30 59 22 108/73 (85) 97 08/11/20 23:15 60 22 108/64 (79) 97 08/11/20 23:15 70 21 100 08/11/20 23:00 32 142/86 Mechanical Ventilator 100 08/11/20 23:00 28 142/86 Mechanical Ventilator 100 08/11/20 23:00 60 22 110/73 (85) 98 08/11/20 22:45 59 22 120/74 (89) 98 08/11/20 22:44 28 118/77 Mechanical Ventilator 100 08/11/20 22:44 32 139/76 Mechanical Ventilator 100 08/11/20 22:30 67 22 118/77 (91) 99 08/11/20 22:15 77 24 139/76 (97) 96 08/11/20 22:00 22 139/76 Mechanical Ventilator 100 08/11/20 22:00 28 139/76 Mechanical Ventilator 100 08/11/20 22:00 57 13 117/74 (88) 98 08/11/20 21:45 59 18 125/73 (90) 100 08/11/20 21:30 65 0 142/74 (96) 100 08/11/20 21:15 60 14 120/71 (87) 99 08/11/20 21:10 22 124/76 Mechanical Ventilator 100 08/11/20 21:10 22 124/76 Mechanical Ventilator 100 08/11/20 21:00 64 10 124/76 (92) 100 08/11/20 21:00 22 120/71 Mechanical Ventilator 100 08/11/20 21:00 22 120/71 Mechanical Ventilator 100 08/11/20 21:00 46 124/76 08/11/20 20:45 73 8 143/78 (99) 94 08/11/20 20:30 71 13 123/71 (88) 98 08/11/20 20:15 71 20 125/64 (84) 98 08/11/20 20:00 81 08/11/20 20:00 22 125/64 Mechanical Ventilator 100 08/11/20 20:00 22 125/64 Mechanical Ventilator 100 08/11/20 20:00 98.5 74 19 136/74 (94) 99 08/11/20 20:00 Mechanical Ventilator 08/11/20 20:00 100 08/11/20 19:45 73 23 127/77 (94) 98 08/11/20 19:30 72 22 146/80 (102) 100 08/11/20 19:30 73 22 100 08/11/20 19:15 61 22 114/78 (90) 95 08/11/20 19:00 64 24 121/78 (92) 96 08/11/20 19:00 22 114/78 Mechanical Ventilator 100 08/11/20 19:00 22 114/78 Mechanical Ventilator 100 08/11/20 18:00 78 22 130/79 (96) 100 08/11/20 18:00 23 134/81 Mechanical Ventilator 100 08/11/20 18:00 23 134/81 Mechanical Ventilator 100 08/11/20 17:30 66 22 104/70 (81) 100 08/11/20 17:00 22 130/77 Mechanical Ventilator 100 08/11/20 17:00 22 130/77 Mechanical Ventilator 100 08/11/20 17:00 58 22 125/81 (96) 100 08/11/20 16:46 56 27 100 08/11/20 16:30 57 22 121/68 (85) 100 08/11/20 16:00 Mechanical Ventilator 08/11/20 16:00 98.2 54 22 116/72 (87) 100 08/11/20 16:00 52 08/11/20 16:00 100 08/11/20 16:00 20 117/70 Mechanical Ventilator 100 08/11/20 16:00 22 122/72 Mechanical Ventilator 100 08/11/20 16:00 22 122/72 Mechanical Ventilator 100 08/11/20 15:30 50 22 117/72 (87) 100 08/11/20 15:00 22 127/73 Mechanical Ventilator 100 08/11/20 15:00 22 127/73 Mechanical Ventilator 100 08/11/20 15:00 22 124/73 Mechanical Ventilator 100 08/11/20 15:00 55 22 122/72 (89) 100 08/11/20 14:53 23 124/73 Mechanical Ventilator 100 08/11/20 14:52 22 124/73 Mechanical Ventilator 100 08/11/20 14:30 70 22 130/68 (88) 100 08/11/20 14:30 68 22 100 08/11/20 14:00 22 133/57 Mechanical Ventilator 100 08/11/20 14:00 22 133/57 Mechanical Ventilator 100 08/11/20 14:00 57 12 112/76 (88) 94 08/11/20 13:30 59 12 120/69 (86) 96 08/11/20 13:25 66 24 100 08/11/20 13:00 12 122/74 Mechanical Ventilator 100 08/11/20 13:00 12 122/74 Mechanical Ventilator 100 08/11/20 13:00 63 15 125/76 (92) 98 08/11/20 12:30 75 16 144/76 (98) 98 Height (Feet): 5 Height (Inches): 3.00 Weight (Pounds): 162 HEENT: other - orally intubated, oral bleeding, Respiratory/Chest: decreased breath sounds, other - on ventilator, NWD3=427% Cardiovascular: tachycardia Abdomen: soft, non tender, other - OG tube feeding Extremities: other - generalized edema Skin: other - lower lips ulcers Neurologic/Psychiatric: unresponsiveness Laboratory Tests Test 08/11/20 21:15 08/12/20 03:30 POC Whole Blood Glucose Pending White Blood Count 13.2 K/UL (4.8-10.8) H Red Blood Count 3.53 M/UL (4.20-5.40) L Hemoglobin 10.2 G/DL (12.0-16.0) L Hematocrit 31.7 % (37.0-47.0) L Mean Corpuscular Volume 90 FL (80-99) Mean Corpuscular Hemoglobin 29.0 PG (27.0-31.0) Mean Corpuscular Hemoglobin Concent 32.3 G/DL (32.0-36.0) Red Cell Distribution Width 15.9 % (11.6-14.8) H Platelet Count 92 K/UL (150-450) L Mean Platelet Volume 9.2 FL (6.5-10.1) Neutrophils (%) (Auto) % (45.0-75.0) Lymphocytes (%) (Auto) % (20.0-45.0) Monocytes (%) (Auto) % (1.0-10.0) Eosinophils (%) (Auto) % (0.0-3.0) Basophils (%) (Auto) % (0.0-2.0) Differential Total Cells Counted 100 Neutrophils % (Manual) 94 % (45-75) H Lymphocytes % (Manual) 2 % (20-45) L Monocytes % (Manual) 4 % (1-10) Eosinophils % (Manual) 0 % (0-3) Basophils % (Manual) 0 % (0-2) Band Neutrophils 0 % (0-8) Platelet Estimate Decreased L Platelet Morphology Normal Hypochromasia 1+ Basophilic Stippling 1+ Anisocytosis 1+ Sodium Level 149 MMOL/L (136-145) H Potassium Level 4.2 MMOL/L (3.5-5.1) Chloride Level 111 MMOL/L (98-107) H Carbon Dioxide Level 33 MMOL/L (21-32) H Anion Gap 5 mmol/L (5-15) Blood Urea Nitrogen 37 mg/dL (7-18) H Creatinine 0.7 MG/DL (0.55-1.30) Estimat Glomerular Filtration Rate > 60 mL/min (>60) Glucose Level 169 MG/DL (74-106) H Calcium Level 8.5 MG/DL (8.5-10.1) Phosphorus Level 2.8 MG/DL (2.5-4.9) Magnesium Level 1.8 MG/DL (1.8-2.4) Total Bilirubin 0.3 MG/DL (0.2-1.0) Aspartate Amino Transf (AST/SGOT) 37 U/L (15-37) Alanine Aminotransferase (ALT/SGPT) 112 U/L (12-78) H Alkaline Phosphatase 98 U/L (46-116) C-Reactive Protein, Quantitative < 0.4 mg/dL (0.00-0.90) Pro-B-Type Natriuretic Peptide 992 pg/mL (0-125) H Total Protein 4.9 G/DL (6.4-8.2) L Albumin 1.9 G/DL (3.4-5.0) L Globulin 3.0 g/dL Albumin/Globulin Ratio 0.6 (1.0-2.7) L Triglycerides Level 320 MG/DL (30-150) H Current Medications Medications (Trade) Dose Ordered Sig/Marian Route PRN Reason Start Time Stop Time Status Last Admin Dose Admin Acetaminophen (Tylenol) 650 mg Q4H PRN RECTAL Temp >100.5 07/18/20 18:30 08/17/20 18:29 08/01/20 16:50 Chlorhexidine Gluconate (Rafaela-Hex 2%) 1 applic DAILY@2000 TOPIC 08/01/20 20:00 10/30/20 19:59 08/11/20 21:09 Dextrose (Dextrose 50%) 25 ml Q30M PRN IV Hypoglycemia 07/07/20 15:45 10/05/20 15:44 Dextrose (Dextrose 50%) 50 ml Q30M PRN IV Hypoglycemia 07/07/20 15:45 10/05/20 15:44 Famotidine (Pepcid I.v.) 20 mg Q12HR IVP 07/20/20 09:00 08/19/20 08:59 08/12/20 08:48 Fentanyl Citrate 250 ml @ 1 mls/hr Q24H IV 08/11/20 16:01 08/12/20 15:59 08/12/20 08:46 Fentanyl Citrate 250 ml @ 1 mls/hr Q24H IV 08/12/20 16:01 08/14/20 16:00 Furosemide (Lasix) 20 mg EVERY 12 HOURS IV 08/10/20 09:00 09/09/20 08:59 08/12/20 08:48 Insulin Aspart (NovoLOG) Q6HR SUBQ 07/26/20 12:00 10/24/20 11:59 08/12/20 06:08 Insulin Detemir (Levemir) 30 units Q12HR SUBQ 08/01/20 21:00 10/24/20 10:29 08/12/20 08:51 Lorazepam (Ativan 2mg/ml 1ml) 2 mg Q4H PRN IV For Anxiety 08/12/20 11:45 08/19/20 11:44 Methylprednisolone Sodium Succinate (Solu-MEDROL) 20 mg EVERY 6 HOURS IVP 07/22/20 12:00 10/19/20 08:59 08/12/20 06:08 Metoprolol Tartrate (Lopressor) 25 mg EVERY 12 HOURS NG 07/26/20 21:00 10/24/20 20:59 08/12/20 09:01 Midazolam HCl 200 ml @ 0 mls/hr Q24H PRN IV To Patient Comfort 08/10/20 15:51 08/12/20 15:50 08/11/20 21:10 Quetiapine Fumarate (SEROqueL) 50 mg BEDTIME ORAL 08/12/20 21:00 09/26/20 20:59 Sorbitol (sorbitoL) 45 ml Q12HR PRN ORAL Constipation 07/30/20 09:15 08/29/20 09:14 Stephon Segovia MD Aug 12, 2020 12:09
[2020-08-12] MEDS: Cefepime HCl 1 GM in D5W 55 ML IVPB SCH ×2 (12:45→21:04)
--- NOTE | 2020-08-12 12:45 | Cardiology Progress Note ---
Assessment/Plan Status: not improved Assessment/Plan 1. COVID-19 viral PNA s/p remdesivir and dexamethasone WBCs elevated 2. Respiratory failure 2/2 acute PNA Intubated 07/25/20 3. HFpEF acute on chronic diastolic HF with preserved EF EF 65%, per repeat echo post intubation Lasix for diuresis, BNP elevated Bb for rate control 4. 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 Sinus tachycardia 2/2 fever and infection 7. Hypotension 2/2 shock, Levophed as needed 8. HTN - hydralazine prn added, nitropaste prn Off pressors, hypertensive and tachycardic with SBP 160's today, rate 110-120. Repeat CXR done, check d-dimer. Vent dependent, DNR status. Subjective ROS Limited/Unobtainable: Yes Subjective Hypertensive today, tachycardic with rate 110. Intubated and on vent, in sinus rhythm. Seen in ICU Objective Last 24 Hour Vital Signs Date Time Temp Pulse Resp B/P (MAP) Pulse Ox O2 Delivery O2 Flow Rate FiO2 08/12/20 12:00 Mechanical Ventilator 08/12/20 12:00 99.4 92 21 182/86 (118) 94 08/12/20 12:00 115 08/12/20 12:00 100 08/12/20 12:00 100 08/12/20 12:00 18 182/83 Mechanical Ventilator 100 08/12/20 11:00 33 138/77 Mechanical Ventilator 100 08/12/20 11:00 33 138/77 Mechanical Ventilator 100 08/12/20 11:00 33 138/77 Mechanical Ventilator 100 08/12/20 11:00 33 180/83 Mechanical Ventilator 100 08/12/20 11:00 33 138/63 Mechanical Ventilator 100 08/12/20 11:00 33 138/63 Mechanical Ventilator 100 08/12/20 11:00 33 138/63 Mechanical Ventilator 100 08/12/20 11:00 120 25 180/95 (123) 94 08/12/20 10:00 81 28 141/71 (94) 94 08/12/20 10:00 28 141/71 Mechanical Ventilator 100 08/12/20 10:00 28 141/71 Mechanical Ventilator 100 08/12/20 09:01 116 149/41 08/12/20 09:00 22 149/41 Mechanical Ventilator 100 08/12/20 09:00 26 172/99 Mechanical Ventilator 100 08/12/20 09:00 105 26 172/99 (123) 91 08/12/20 08:46 22 149/41 Mechanical Ventilator 100 08/12/20 08:00 112 08/12/20 08:00 Mechanical Ventilator 08/12/20 08:00 31 175/80 Mechanical Ventilator 100 08/12/20 08:00 31 175/80 Mechanical Ventilator 100 08/12/20 08:00 97.7 102 28 168/103 (124) 95 08/12/20 08:00 100 08/12/20 07:28 112 31 100 08/12/20 07:00 61 25 129/66 (87) 97 08/12/20 07:00 27 149/77 Mechanical Ventilator 100 08/12/20 07:00 27 149/77 Mechanical Ventilator 100 08/12/20 06:00 22 138/73 Mechanical Ventilator 100 08/12/20 06:00 22 138/73 Mechanical Ventilator 100 08/12/20 05:45 66 24 146/78 (100) 100 08/12/20 05:30 79 23 145/83 (103) 99 08/12/20 05:17 97 30 159/77 (104) 92 08/12/20 05:00 25 159/77 Mechanical Ventilator 100 08/12/20 05:00 25 159/77 Mechanical Ventilator 100 08/12/20 04:30 88 22 155/96 (115) 99 08/12/20 04:15 105 30 153/92 (112) 94 08/12/20 04:00 98.3 102 28 167/96 (119) 96 08/12/20 04:00 80 08/12/20 04:00 34 153/92 Mechanical Ventilator 100 08/12/20 04:00 28 153/92 Mechanical Ventilator 100 08/12/20 04:00 Mechanical Ventilator 08/12/20 04:00 100 08/12/20 03:45 81 24 157/93 (114) 98 08/12/20 03:32 70 23 100 08/12/20 03:30 93 30 163/96 (118) 97 08/12/20 03:15 70 23 144/83 (103) 100 08/12/20 03:00 71 23 144/88 (106) 99 08/12/20 03:00 22 144/83 Mechanical Ventilator 100 08/12/20 03:00 22 144/83 Mechanical Ventilator 100 08/12/20 02:45 75 24 139/83 (101) 97 08/12/20 02:30 77 25 139/80 (99) 99 08/12/20 02:15 74 22 143/82 (102) 99 08/12/20 02:00 59 24 127/75 (92) 96 08/12/20 02:00 22 126/86 Mechanical Ventilator 100 08/12/20 02:00 22 126/86 Mechanical Ventilator 100 08/12/20 01:45 60 22 130/77 (94) 97 08/12/20 01:30 62 23 126/74 (91) 98 08/12/20 01:15 62 23 118/78 (91) 99 08/12/20 01:00 64 24 130/73 (92) 99 08/12/20 01:00 22 139/83 Mechanical Ventilator 100 08/12/20 01:00 22 139/83 Mechanical Ventilator 100 08/12/20 00:45 70 23 131/79 (96) 100 08/12/20 00:43 24 134/75 Mechanical Ventilator 100 08/12/20 00:30 74 22 134/75 (94) 100 08/12/20 00:15 66 22 110/68 (82) 97 08/12/20 00:00 Mechanical Ventilator 08/12/20 00:00 71 08/12/20 00:00 98.5 64 22 117/67 (84) 97 08/12/20 00:00 100 08/12/20 00:00 22 110/68 Mechanical Ventilator 100 08/12/20 00:00 22 110/68 Mechanical Ventilator 100 08/11/20 23:45 63 22 111/74 (86) 97 08/11/20 23:30 59 22 108/73 (85) 97 08/11/20 23:15 60 22 108/64 (79) 97 08/11/20 23:15 70 21 100 08/11/20 23:00 32 142/86 Mechanical Ventilator 100 08/11/20 23:00 28 142/86 Mechanical Ventilator 100 08/11/20 23:00 60 22 110/73 (85) 98 08/11/20 22:45 59 22 120/74 (89) 98 08/11/20 22:44 28 118/77 Mechanical Ventilator 100 08/11/20 22:44 32 139/76 Mechanical Ventilator 100 08/11/20 22:30 67 22 118/77 (91) 99 08/11/20 22:15 77 24 139/76 (97) 96 08/11/20 22:00 22 139/76 Mechanical Ventilator 100 08/11/20 22:00 28 139/76 Mechanical Ventilator 100 08/11/20 22:00 57 13 117/74 (88) 98 08/11/20 21:45 59 18 125/73 (90) 100 08/11/20 21:30 65 0 142/74 (96) 100 08/11/20 21:15 60 14 120/71 (87) 99 08/11/20 21:10 22 124/76 Mechanical Ventilator 100 08/11/20 21:10 22 124/76 Mechanical Ventilator 100 08/11/20 21:00 64 10 124/76 (92) 100 08/11/20 21:00 22 120/71 Mechanical Ventilator 100 08/11/20 21:00 22 120/71 Mechanical Ventilator 100 08/11/20 21:00 46 124/76 08/11/20 20:45 73 8 143/78 (99) 94 08/11/20 20:30 71 13 123/71 (88) 98 08/11/20 20:15 71 20 125/64 (84) 98 08/11/20 20:00 81 08/11/20 20:00 22 125/64 Mechanical Ventilator 100 08/11/20 20:00 22 125/64 Mechanical Ventilator 100 08/11/20 20:00 98.5 74 19 136/74 (94) 99 08/11/20 20:00 Mechanical Ventilator 08/11/20 20:00 100 08/11/20 19:45 73 23 127/77 (94) 98 08/11/20 19:30 72 22 146/80 (102) 100 08/11/20 19:30 73 22 100 08/11/20 19:15 61 22 114/78 (90) 95 08/11/20 19:00 64 24 121/78 (92) 96 08/11/20 19:00 22 114/78 Mechanical Ventilator 100 08/11/20 19:00 22 114/78 Mechanical Ventilator 100 08/11/20 18:00 78 22 130/79 (96) 100 08/11/20 18:00 23 134/81 Mechanical Ventilator 100 08/11/20 18:00 23 134/81 Mechanical Ventilator 100 08/11/20 17:30 66 22 104/70 (81) 100 08/11/20 17:00 22 130/77 Mechanical Ventilator 100 08/11/20 17:00 22 130/77 Mechanical Ventilator 100 08/11/20 17:00 58 22 125/81 (96) 100 08/11/20 16:46 56 27 100 08/11/20 16:30 57 22 121/68 (85) 100 08/11/20 16:00 Mechanical Ventilator 08/11/20 16:00 98.2 54 22 116/72 (87) 100 08/11/20 16:00 52 08/11/20 16:00 100 08/11/20 16:00 20 117/70 Mechanical Ventilator 100 08/11/20 16:00 22 122/72 Mechanical Ventilator 100 08/11/20 16:00 22 122/72 Mechanical Ventilator 100 08/11/20 15:30 50 22 117/72 (87) 100 08/11/20 15:00 22 127/73 Mechanical Ventilator 100 08/11/20 15:00 22 127/73 Mechanical Ventilator 100 08/11/20 15:00 22 124/73 Mechanical Ventilator 100 08/11/20 15:00 55 22 122/72 (89) 100 08/11/20 14:53 23 124/73 Mechanical Ventilator 100 08/11/20 14:52 22 124/73 Mechanical Ventilator 100 08/11/20 14:30 70 22 130/68 (88) 100 08/11/20 14:30 68 22 100 08/11/20 14:00 22 133/57 Mechanical Ventilator 100 08/11/20 14:00 22 133/57 Mechanical Ventilator 100 08/11/20 14:00 57 12 112/76 (88) 94 08/11/20 13:30 59 12 120/69 (86) 96 08/11/20 13:25 66 24 100 08/11/20 13:00 12 122/74 Mechanical Ventilator 100 08/11/20 13:00 12 122/74 Mechanical Ventilator 100 08/11/20 13:00 63 15 125/76 (92) 98 General Appearance: no apparent distress, on vent Neck: no JVD Rhythm: ST Cardiovascular: regular rhythm Respiratory/Chest: decreased breath sounds Intake and Output 08/11/20 08/12/20 19:00 07:00 Intake Total 1459.2 ml 1142.667 ml Output Total 920 ml 1575 ml Balance 539.2 ml -432.333 ml Free Water 50 ml IV Total 749.2 ml 537.667 ml Tube Feeding 660 ml 605 ml Output Urine Total 840 ml 1450 ml Stool Total 80 ml 125 ml Laboratory Tests Test 08/11/20 21:15 08/12/20 03:30 POC Whole Blood Glucose Pending White Blood Count 13.2 K/UL (4.8-10.8) H Red Blood Count 3.53 M/UL (4.20-5.40) L Hemoglobin 10.2 G/DL (12.0-16.0) L Hematocrit 31.7 % (37.0-47.0) L Mean Corpuscular Volume 90 FL (80-99) Mean Corpuscular Hemoglobin 29.0 PG (27.0-31.0) Mean Corpuscular Hemoglobin Concent 32.3 G/DL (32.0-36.0) Red Cell Distribution Width 15.9 % (11.6-14.8) H Platelet Count 92 K/UL (150-450) L Mean Platelet Volume 9.2 FL (6.5-10.1) Neutrophils (%) (Auto) % (45.0-75.0) Lymphocytes (%) (Auto) % (20.0-45.0) Monocytes (%) (Auto) % (1.0-10.0) Eosinophils (%) (Auto) % (0.0-3.0) Basophils (%) (Auto) % (0.0-2.0) Differential Total Cells Counted 100 Neutrophils % (Manual) 94 % (45-75) H Lymphocytes % (Manual) 2 % (20-45) L Monocytes % (Manual) 4 % (1-10) Eosinophils % (Manual) 0 % (0-3) Basophils % (Manual) 0 % (0-2) Band Neutrophils 0 % (0-8) Platelet Estimate Decreased L Platelet Morphology Normal Hypochromasia 1+ Basophilic Stippling 1+ Anisocytosis 1+ Sodium Level 149 MMOL/L (136-145) H Potassium Level 4.2 MMOL/L (3.5-5.1) Chloride Level 111 MMOL/L (98-107) H Carbon Dioxide Level 33 MMOL/L (21-32) H Anion Gap 5 mmol/L (5-15) Blood Urea Nitrogen 37 mg/dL (7-18) H Creatinine 0.7 MG/DL (0.55-1.30) Estimat Glomerular Filtration Rate > 60 mL/min (>60) Glucose Level 169 MG/DL (74-106) H Calcium Level 8.5 MG/DL (8.5-10.1) Phosphorus Level 2.8 MG/DL (2.5-4.9) Magnesium Level 1.8 MG/DL (1.8-2.4) Total Bilirubin 0.3 MG/DL (0.2-1.0) Aspartate Amino Transf (AST/SGOT) 37 U/L (15-37) Alanine Aminotransferase (ALT/SGPT) 112 U/L (12-78) H Alkaline Phosphatase 98 U/L (46-116) C-Reactive Protein, Quantitative < 0.4 mg/dL (0.00-0.90) Pro-B-Type Natriuretic Peptide 992 pg/mL (0-125) H Total Protein 4.9 G/DL (6.4-8.2) L Albumin 1.9 G/DL (3.4-5.0) L Globulin 3.0 g/dL Albumin/Globulin Ratio 0.6 (1.0-2.7) L Triglycerides Level 320 MG/DL (30-150) H Blanca Lobato PA-C Aug 12, 2020 12:45
--- NOTE | 2020-08-12 13:01 | NUR ---
RADIOLOGY DEPT., CHEST X-RAY DONE.-P.DYE
--- NOTE | 2020-08-12 13:09 | Diagnostic Imaging Report ---
EXAM: XR Chest, 1 View CLINICAL HISTORY: Infection TECHNIQUE: Frontal view of the chest. COMPARISON: 08/06/202023 FINDINGS: Lungs: Persistent diffuse bilateral alveolar and interstitial opacities. Pleural space: No significant pleural effusions or pneumothorax. Heart: No significant abnormality. No cardiomegaly. Mediastinum: No significant abnormality. Bones/joints: No acute osseous abnormality. Tubes, lines and devices: Endotracheal tube tip projects approximately 2.4 cm above the yareli. Esophagogastric tube traverses the diaphragm and extends off the [id number]. IMPRESSION: 1. Persistent diffuse bilateral alveolar and interstitial opacities may be related to pulmonary edema or an infectious or inflammatory process. No significant pleural effusions or pneumothorax. 2. Endotracheal tube tip projects approximately 2.4 cm above the yareli.
--- NOTE | 2020-08-12 13:47 | Nephrology Progress Note ---
Assessment/Plan Problem List: (1) Hyponatremia (2) Hypoxia (3) Pneumonitis (4) Acute respiratory failure due to COVID-19 (5) DMII (diabetes mellitus, type 2) (6) HTN (hypertension) Assessment Hyponatremia, improved with saline infusion COVID-19 infection Pneumonia, acute respiratory failure, hypoxia Diabetes mellitus Hypertension Plan August 12: Status unchanged. DNR. FiO2 100%. Labs reviewed. Hemoglobin higher. Electrolytes and renal parameters stable. Continue current care. Prognosis very poor. August 11: Status unchanged. Patient was transfused 2 units of packed RBCs. No labs drawn today. Patient DNR. Continue current support. August 10: Status quo. Labs reviewed. Remains on high flow oxygen. Hemoglobin lower. Transfusion is being entertained. Patient DNR. Not much to add from renal standpoint to view. August 09: Labs reviewed. Renal parameters stable. Pulmonary status unchanged. Remains 100% FiO2. Patient DNR. Continue current support. August 08: Labs reviewed. Renal parameters stable. Discussed with LIANA Malik. Patient remains on 100% FiO2. Status was changed to DNR. Prognosis dismal. Continue current support. August 07: Labs reviewed. Renal parameters stable. Discussed with LIANA Malik. Pulmonary status remains precarious. On low-dose pressors now. Continue per consultants. Continue to monitor renal parameters and electrolytes. August 06: Labs reviewed. Renal parameters stable. Discussed with RN. Pulmonary status deteriorated. Blood pressure borderline. On FiO2 100%. Continue per pulmonary. May need pressors for BP support. Defer to easement worker. August 05: Labs reviewed. Renal parameters stable. Remains intubated on ventilator and full code. Continue per consultants. August 04: Labs reviewed. Renal parameters stable. Medication list reviewed. Continue per consultants. August 03: Labs reviewed. Discussed with RN. Patient n.p.o. at this time. Will start IV until feeding resumes. Continue to monitor electrolytes and renal parameters. Medication list reviewed. Continue per consultants. August 02: Labs reviewed. Serum sodium drifting down. Serum potassium remains higher than normal though improved since yesterday. Kayexalate via NG tube given and 250 cc 3% saline IV given continue to monitor renal parameters and electrolytes. August 01: Today's labs reviewed. Discussed with RN. Kayexalate for high potassium given. Hemoglobin lower. Defer transfusion to gyroscopic engineering technician. Continue to monitor electrolytes and renal parameters. July 31: No CHEM panel drawn today. Remains full code. Intubated on ventilator. FiO2 85% now. Will check lab tomorrow. Continue to monitor renal parameters. July 30: Labs reviewed. Renal parameters stable. Continue per consultants. Intubated on ventilator with FiO2 of 100%. Full code. Not much to add from renal standpoint of view at this time. July 29 labs reviewed. Serum potassium elevated. Potassium supplement was put on hold on 1 dose of Kayexalate given. Levemir dose increased. Continue to monitor renal parameters. Patient remains on 100% FiO2 on ventilator. July 28: Labs reviewed. Renal parameters stable. Remains full code. Blood sugar remains high. Levemir dose increased. Not much to add from renal standpoint of view. FiO2 now is 100%. July 27: Labs reviewed. Renal parameters stable. Low potassium addressed. FiO2 70%. Blood sugar elevated. Levemir dose is being adjusted. Continue per consultants. July 26: Labs reviewed. Renal parameters stable. Patient now intubated on ventilator in ICU. Blood sugar elevated. Levemir added. Will watch electrolytes. Main management per easement worker and ID. July 25: Labs reviewed. Renal parameters stable. Continue per consultants. July 24: Labs reviewed. Renal parameters stable. Continue per pulmonary. Medication list reviewed. July 23: No labs drawn today. Medication list reviewed. Continue per sap security consultant. Patient full code. July 22: Labs reviewed. Stable renal parameters. Continue per consultants. July 21: No CHEM panel drawn today. Stable from renal standpoint of view. Blood pressure stable. July 20: IV changed to D5W 50 cc an hour. Renal parameters stable. Continue per consultants. July 19: Pulmonary status remains unstable. Stable from renal standpoint of view. July 18: Labs reviewed. Stable renal parameters and electrolytes. Continue per consultants. July 17: No labs drawn today. Remains stable from renal standpoint today. July 16: No labs drawn today. Continue per consultants. Stable from renal standpoint of view. July 15: Labs reviewed. Renal parameters stable. July 14: No labs from today. Continue per current management. Check labs tomorrow. July 13: No labs drawn today. Stable from renal standpoint of view. July 12: Today's labs pending. Medication list reviewed. Continue per current management and consultants. July 11: Labs reviewed. Renal parameters stable. July 10: Labs reviewed. Renal parameters electrolytes stable. Continue per consultants. July 09: Labs reviewed. Renal parameters and electrolytes stable. Continue per ID and pulmonary. Subjective ROS Limited/Unobtainable: Yes Objective Objective Last 24 Hour Vital Signs Date Time Temp Pulse Resp B/P (MAP) Pulse Ox O2 Delivery O2 Flow Rate FiO2 08/12/20 13:00 109 26 127/100 (109) 91 08/12/20 12:00 Mechanical Ventilator 08/12/20 12:00 99.4 92 21 182/86 (118) 94 08/12/20 12:00 115 08/12/20 12:00 100 08/12/20 12:00 100 08/12/20 12:00 18 182/83 Mechanical Ventilator 100 08/12/20 11:47 113 28 100 08/12/20 11:00 33 138/77 Mechanical Ventilator 100 08/12/20 11:00 33 138/77 Mechanical Ventilator 100 08/12/20 11:00 33 138/77 Mechanical Ventilator 100 08/12/20 11:00 33 180/83 Mechanical Ventilator 100 08/12/20 11:00 33 138/63 Mechanical Ventilator 100 08/12/20 11:00 33 138/63 Mechanical Ventilator 100 08/12/20 11:00 33 138/63 Mechanical Ventilator 100 08/12/20 11:00 120 25 180/95 (123) 94 08/12/20 10:00 81 28 141/71 (94) 94 08/12/20 10:00 28 141/71 Mechanical Ventilator 100 08/12/20 10:00 28 141/71 Mechanical Ventilator 100 08/12/20 09:01 116 149/41 08/12/20 09:00 22 149/41 Mechanical Ventilator 100 08/12/20 09:00 26 172/99 Mechanical Ventilator 100 08/12/20 09:00 105 26 172/99 (123) 91 08/12/20 08:46 22 149/41 Mechanical Ventilator 100 08/12/20 08:00 112 08/12/20 08:00 Mechanical Ventilator 08/12/20 08:00 31 175/80 Mechanical Ventilator 100 08/12/20 08:00 31 175/80 Mechanical Ventilator 100 08/12/20 08:00 97.7 102 28 168/103 (124) 95 08/12/20 08:00 100 08/12/20 07:28 112 31 100 08/12/20 07:00 61 25 129/66 (87) 97 08/12/20 07:00 27 149/77 Mechanical Ventilator 100 08/12/20 07:00 27 149/77 Mechanical Ventilator 100 08/12/20 06:00 22 138/73 Mechanical Ventilator 100 08/12/20 06:00 22 138/73 Mechanical Ventilator 100 08/12/20 05:45 66 24 146/78 (100) 100 08/12/20 05:30 79 23 145/83 (103) 99 08/12/20 05:17 97 30 159/77 (104) 92 08/12/20 05:00 25 159/77 Mechanical Ventilator 100 08/12/20 05:00 25 159/77 Mechanical Ventilator 100 08/12/20 04:30 88 22 155/96 (115) 99 08/12/20 04:15 105 30 153/92 (112) 94 08/12/20 04:00 98.3 102 28 167/96 (119) 96 08/12/20 04:00 80 08/12/20 04:00 34 153/92 Mechanical Ventilator 100 08/12/20 04:00 28 153/92 Mechanical Ventilator 100 08/12/20 04:00 Mechanical Ventilator 08/12/20 04:00 100 08/12/20 03:45 81 24 157/93 (114) 98 08/12/20 03:32 70 23 100 08/12/20 03:30 93 30 163/96 (118) 97 08/12/20 03:15 70 23 144/83 (103) 100 08/12/20 03:00 71 23 144/88 (106) 99 08/12/20 03:00 22 144/83 Mechanical Ventilator 100 08/12/20 03:00 22 144/83 Mechanical Ventilator 100 08/12/20 02:45 75 24 139/83 (101) 97 08/12/20 02:30 77 25 139/80 (99) 99 08/12/20 02:15 74 22 143/82 (102) 99 08/12/20 02:00 59 24 127/75 (92) 96 08/12/20 02:00 22 126/86 Mechanical Ventilator 100 08/12/20 02:00 22 126/86 Mechanical Ventilator 100 08/12/20 01:45 60 22 130/77 (94) 97 08/12/20 01:30 62 23 126/74 (91) 98 08/12/20 01:15 62 23 118/78 (91) 99 08/12/20 01:00 64 24 130/73 (92) 99 08/12/20 01:00 22 139/83 Mechanical Ventilator 100 08/12/20 01:00 22 139/83 Mechanical Ventilator 100 08/12/20 00:45 70 23 131/79 (96) 100 08/12/20 00:43 24 134/75 Mechanical Ventilator 100 08/12/20 00:30 74 22 134/75 (94) 100 08/12/20 00:15 66 22 110/68 (82) 97 08/12/20 00:00 Mechanical Ventilator 08/12/20 00:00 71 08/12/20 00:00 98.5 64 22 117/67 (84) 97 08/12/20 00:00 100 08/12/20 00:00 22 110/68 Mechanical Ventilator 100 08/12/20 00:00 22 110/68 Mechanical Ventilator 100 08/11/20 23:45 63 22 111/74 (86) 97 08/11/20 23:30 59 22 108/73 (85) 97 08/11/20 23:15 60 22 108/64 (79) 97 08/11/20 23:15 70 21 100 08/11/20 23:00 32 142/86 Mechanical Ventilator 100 08/11/20 23:00 28 142/86 Mechanical Ventilator 100 08/11/20 23:00 60 22 110/73 (85) 98 08/11/20 22:45 59 22 120/74 (89) 98 08/11/20 22:44 28 118/77 Mechanical Ventilator 100 08/11/20 22:44 32 139/76 Mechanical Ventilator 100 08/11/20 22:30 67 22 118/77 (91) 99 08/11/20 22:15 77 24 139/76 (97) 96 08/11/20 22:00 22 139/76 Mechanical Ventilator 100 08/11/20 22:00 28 139/76 Mechanical Ventilator 100 08/11/20 22:00 57 13 117/74 (88) 98 08/11/20 21:45 59 18 125/73 (90) 100 08/11/20 21:30 65 0 142/74 (96) 100 08/11/20 21:15 60 14 120/71 (87) 99 08/11/20 21:10 22 124/76 Mechanical Ventilator 100 08/11/20 21:10 22 124/76 Mechanical Ventilator 100 08/11/20 21:00 64 10 124/76 (92) 100 08/11/20 21:00 22 120/71 Mechanical Ventilator 100 08/11/20 21:00 22 120/71 Mechanical Ventilator 100 08/11/20 21:00 46 124/76 08/11/20 20:45 73 8 143/78 (99) 94 08/11/20 20:30 71 13 123/71 (88) 98 08/11/20 20:15 71 20 125/64 (84) 98 08/11/20 20:00 81 08/11/20 20:00 22 125/64 Mechanical Ventilator 100 08/11/20 20:00 22 125/64 Mechanical Ventilator 100 08/11/20 20:00 98.5 74 19 136/74 (94) 99 08/11/20 20:00 Mechanical Ventilator 08/11/20 20:00 100 08/11/20 19:45 73 23 127/77 (94) 98 08/11/20 19:30 72 22 146/80 (102) 100 08/11/20 19:30 73 22 100 08/11/20 19:15 61 22 114/78 (90) 95 08/11/20 19:00 64 24 121/78 (92) 96 08/11/20 19:00 22 114/78 Mechanical Ventilator 100 08/11/20 19:00 22 114/78 Mechanical Ventilator 100 08/11/20 18:00 78 22 130/79 (96) 100 08/11/20 18:00 23 134/81 Mechanical Ventilator 100 08/11/20 18:00 23 134/81 Mechanical Ventilator 100 08/11/20 17:30 66 22 104/70 (81) 100 08/11/20 17:00 22 130/77 Mechanical Ventilator 100 08/11/20 17:00 22 130/77 Mechanical Ventilator 100 08/11/20 17:00 58 22 125/81 (96) 100 08/11/20 16:46 56 27 100 08/11/20 16:30 57 22 121/68 (85) 100 08/11/20 16:00 Mechanical Ventilator 08/11/20 16:00 98.2 54 22 116/72 (87) 100 08/11/20 16:00 52 08/11/20 16:00 100 08/11/20 16:00 20 117/70 Mechanical Ventilator 100 08/11/20 16:00 22 122/72 Mechanical Ventilator 100 08/11/20 16:00 22 122/72 Mechanical Ventilator 100 08/11/20 15:30 50 22 117/72 (87) 100 08/11/20 15:00 22 127/73 Mechanical Ventilator 100 08/11/20 15:00 22 127/73 Mechanical Ventilator 100 08/11/20 15:00 22 124/73 Mechanical Ventilator 100 08/11/20 15:00 55 22 122/72 (89) 100 08/11/20 14:53 23 124/73 Mechanical Ventilator 100 08/11/20 14:52 22 124/73 Mechanical Ventilator 100 08/11/20 14:30 70 22 130/68 (88) 100 08/11/20 14:30 68 22 100 08/11/20 14:00 22 133/57 Mechanical Ventilator 100 08/11/20 14:00 22 133/57 Mechanical Ventilator 100 08/11/20 14:00 57 12 112/76 (88) 94 Intake and Output 08/11/20 08/12/20 19:00 07:00 Intake Total 1459.2 ml 1142.667 ml Output Total 920 ml 1575 ml Balance 539.2 ml -432.333 ml Free Water 50 ml IV Total 749.2 ml 537.667 ml Tube Feeding 660 ml 605 ml Output Urine Total 840 ml 1450 ml Stool Total 80 ml 125 ml Current Medications Medications (Trade) Dose Ordered Sig/Marian Route PRN Reason Start Time Stop Time Status Last Admin Dose Admin Acetaminophen (Tylenol) 650 mg Q4H PRN RECTAL Temp >100.5 07/18/20 18:30 08/17/20 18:29 08/01/20 16:50 Cefepime HCl 1 gm/ Dextrose 55 ml @ 110 mls/hr EVERY 12 HOURS IVPB 08/12/20 12:15 08/19/20 12:14 08/12/20 12:45 Chlorhexidine Gluconate (Rafaela-Hex 2%) 1 applic DAILY@2000 TOPIC 08/01/20 20:00 10/30/20 19:59 08/11/20 21:09 Dextrose (Dextrose 50%) 25 ml Q30M PRN IV Hypoglycemia 07/07/20 15:45 10/05/20 15:44 Dextrose (Dextrose 50%) 50 ml Q30M PRN IV Hypoglycemia 07/07/20 15:45 10/05/20 15:44 Famotidine (Pepcid I.v.) 20 mg Q12HR IVP 07/20/20 09:00 08/19/20 08:59 08/12/20 08:48 Fentanyl Citrate 250 ml @ 1 mls/hr Q24H IV 08/11/20 16:01 08/12/20 15:59 08/12/20 08:46 Fentanyl Citrate 250 ml @ 1 mls/hr Q24H IV 08/12/20 16:01 08/14/20 16:00 Furosemide (Lasix) 20 mg EVERY 12 HOURS IV 08/10/20 09:00 09/09/20 08:59 08/12/20 08:48 Hydralazine HCl (Apresoline) 10 mg Q4H PRN IV For High Blood Pressure 08/12/20 13:00 11/10/20 12:59 Insulin Aspart (NovoLOG) Q6HR SUBQ 07/26/20 12:00 10/24/20 11:59 08/12/20 12:39 Insulin Detemir (Levemir) 30 units Q12HR SUBQ 08/01/20 21:00 10/24/20 10:29 08/12/20 08:51 Lorazepam (Ativan 2mg/ml 1ml) 2 mg Q4H PRN IV For Anxiety 08/12/20 11:45 08/19/20 11:44 Methylprednisolone Sodium Succinate (Solu-MEDROL) 20 mg EVERY 6 HOURS IVP 07/22/20 12:00 10/19/20 08:59 08/12/20 12:38 Metoprolol Tartrate (Lopressor) 25 mg EVERY 12 HOURS NG 07/26/20 21:00 10/24/20 20:59 08/12/20 09:01 Midazolam HCl 200 ml @ 0 mls/hr Q24H PRN IV To Patient Comfort 08/10/20 15:51 08/12/20 15:50 08/11/20 21:10 Nitroglycerin (Nitro-Bid) 1 inch ONCE ONCE TOPIC 08/12/20 14:00 08/12/20 14:01 Quetiapine Fumarate (SEROqueL) 50 mg BEDTIME ORAL 08/12/20 21:00 09/26/20 20:59 Sorbitol (sorbitoL) 45 ml Q12HR PRN ORAL Constipation 07/30/20 09:15 08/29/20 09:14 Laboratory Tests 08/11/20 21:15: POC Whole Blood Glucose [Pending] 08/12/20 03:30: White Blood Count 13.2H, Red Blood Count 3.53L, Hemoglobin 10.2L, Hematocrit 31.7L, Mean Corpuscular Volume 90, Mean Corpuscular Hemoglobin 29.0, Mean Corpuscular Hemoglobin Concent 32.3, Red Cell Distribution Width 15.9H, Platelet Count 92L, Mean Platelet Volume 9.2, Neutrophils (%) (Auto) , Lymphocytes (%) (Auto) , Monocytes (%) (Auto) , Eosinophils (%) (Auto) , Basophils (%) (Auto) , Differential Total Cells Counted 100, Neutrophils % (Manual) 94H, Lymphocytes % (Manual) 2L, Monocytes % (Manual) 4, Eosinophils % (Manual) 0, Basophils % (Manual) 0, Band Neutrophils 0, Platelet Estimate DecreasedL, Platelet Morphology Normal, Hypochromasia 1+, Basophilic Stippling 1+, Anisocytosis 1+, Sodium Level 149H, Potassium Level 4.2, Chloride Level 111H, Carbon Dioxide Level 33H, Anion Gap 5, Blood Urea Nitrogen 37H, Creatinine 0.7, Estimat Glomerular Filtration Rate > 60, Glucose Level 169H, Calcium Level 8.5, Phosphorus Level 2.8, Magnesium Level 1.8, Total Bilirubin 0.3, Aspartate Amino Transf (AST/SGOT) 37, Alanine Aminotransferase (ALT/SGPT) 112H, Alkaline Phosphatase 98, C-Reactive Protein, Quantitative < 0.4, Pro-B-Type Natriuretic Peptide 992H, Total Protein 4.9L, Albumin 1.9L, Globulin 3.0, Albumin/Globulin Ratio 0.6L, Triglycerides Level 320H Height (Feet): 5 Height (Inches): 3.00 Weight (Pounds): 162 General Appearance: no apparent distress EENT: other - Intubated on ventilator Cardiovascular: tachycardia Respiratory/Chest: decreased breath sounds Abdomen: distended Objective No change Anurag Bridges MD Aug 12, 2020 13:47
[2020-08-12] MEDS ORDERED: Nitroglycerin 2% oint pkt TOPIC ONE (14:00)
--- NOTE | 2020-08-12 14:16 | NUR ---
NURSE NOTES: Pt very agitated,V/S unstable,BP 192/96,HR 125/min,RR 33/min O2 sat 88% Ativan 2 mg IVP given,will continue to monitor pt.
--- NOTE | 2020-08-12 15:00 | NUR ---
NURSE NOTES: Pt's BP 196/91 sustaining for an hour ,Hydralazine 10 mg IV given at 1547.will continue with plans of care.
[2020-08-12] MEDS ORDERED: Tubing IV Secondary IV ONE (15:13)
[2020-08-12] MEDS ORDERED: NS 275ml ONE (15:13)
[2020-08-12] MEDS ORDERED: D5 1/2NS 1000ml IV ONE (15:13)
[2020-08-12] MEDS ORDERED: Tubing IV Blood Pump IV ONE (15:13)
[2020-08-12] MEDS: Acetaminophen 650 MG SUPP RECTAL PRN (16:59)
--- NOTE | 2020-08-12 17:00 | NUR ---
NURSE NOTES: Pt febrile, T101.1,bed bath given,Given Tylenol 650 mg suppository,pt turned and repositioned.
--- NOTE | 2020-08-12 17:43 | General Progress Note ---
Subjective Allergies: Coded Allergies: No Known Allergies (Unverified , 07/07/20) Subjective seen in ICU d/w staff combat information center officer tolerating TF unresponsive H&H improved (+) rectal tube Objective Last 24 Hour Vital Signs Date Time Temp Pulse Resp B/P (MAP) Pulse Ox O2 Delivery O2 Flow Rate FiO2 08/12/20 17:00 38 184/76 Mechanical Ventilator 100 08/12/20 17:00 153 35 184/76 (112) 73 08/12/20 16:36 35 185/109 Mechanical Ventilator 100 08/12/20 16:00 Mechanical Ventilator 08/12/20 16:00 101.1 161 33 185/109 (134) 75 08/12/20 16:00 141 08/12/20 16:00 100 08/12/20 15:47 196/91 08/12/20 15:38 151 33 100 08/12/20 15:00 33 196/91 Mechanical Ventilator 100 08/12/20 15:00 30 194/131 Mechanical Ventilator 100 08/12/20 15:00 133 29 181/107 (131) 86 08/12/20 14:46 135 33 192/96 90 08/12/20 14:16 120 26 185/91 90 08/12/20 14:15 185/91 08/12/20 14:00 125 33 192/96 (128) 88 08/12/20 14:00 33 192/96 Mechanical Ventilator 100 08/12/20 14:00 29 181/72 Mechanical Ventilator 100 08/12/20 13:00 109 26 127/100 (109) 91 08/12/20 13:00 26 127/100 Mechanical Ventilator 100 08/12/20 13:00 26 134/121 Mechanical Ventilator 100 08/12/20 12:00 Mechanical Ventilator 08/12/20 12:00 99.4 92 21 182/86 (118) 94 08/12/20 12:00 115 08/12/20 12:00 100 08/12/20 12:00 100 08/12/20 12:00 18 182/83 Mechanical Ventilator 100 08/12/20 11:47 113 28 100 08/12/20 11:00 33 138/77 Mechanical Ventilator 100 08/12/20 11:00 33 138/77 Mechanical Ventilator 100 08/12/20 11:00 33 138/77 Mechanical Ventilator 100 08/12/20 11:00 33 180/83 Mechanical Ventilator 100 08/12/20 11:00 33 138/63 Mechanical Ventilator 100 08/12/20 11:00 33 138/63 Mechanical Ventilator 100 08/12/20 11:00 33 138/63 Mechanical Ventilator 100 08/12/20 11:00 120 25 180/95 (123) 94 08/12/20 10:00 81 28 141/71 (94) 94 08/12/20 10:00 28 141/71 Mechanical Ventilator 100 08/12/20 10:00 28 141/71 Mechanical Ventilator 100 08/12/20 09:01 116 149/41 08/12/20 09:00 22 149/41 Mechanical Ventilator 100 08/12/20 09:00 26 172/99 Mechanical Ventilator 100 08/12/20 09:00 105 26 172/99 (123) 91 08/12/20 08:46 22 149/41 Mechanical Ventilator 100 08/12/20 08:00 112 08/12/20 08:00 Mechanical Ventilator 08/12/20 08:00 31 175/80 Mechanical Ventilator 100 08/12/20 08:00 31 175/80 Mechanical Ventilator 100 08/12/20 08:00 97.7 102 28 168/103 (124) 95 08/12/20 08:00 100 08/12/20 07:28 112 31 100 08/12/20 07:00 61 25 129/66 (87) 97 08/12/20 07:00 27 149/77 Mechanical Ventilator 100 08/12/20 07:00 27 149/77 Mechanical Ventilator 100 08/12/20 06:00 22 138/73 Mechanical Ventilator 100 08/12/20 06:00 22 138/73 Mechanical Ventilator 100 08/12/20 05:45 66 24 146/78 (100) 100 08/12/20 05:30 79 23 145/83 (103) 99 08/12/20 05:17 97 30 159/77 (104) 92 08/12/20 05:00 25 159/77 Mechanical Ventilator 100 08/12/20 05:00 25 159/77 Mechanical Ventilator 100 08/12/20 04:30 88 22 155/96 (115) 99 08/12/20 04:15 105 30 153/92 (112) 94 08/12/20 04:00 98.3 102 28 167/96 (119) 96 08/12/20 04:00 80 08/12/20 04:00 34 153/92 Mechanical Ventilator 100 08/12/20 04:00 28 153/92 Mechanical Ventilator 100 08/12/20 04:00 Mechanical Ventilator 08/12/20 04:00 100 08/12/20 03:45 81 24 157/93 (114) 98 08/12/20 03:32 70 23 100 08/12/20 03:30 93 30 163/96 (118) 97 08/12/20 03:15 70 23 144/83 (103) 100 08/12/20 03:00 71 23 144/88 (106) 99 08/12/20 03:00 22 144/83 Mechanical Ventilator 100 08/12/20 03:00 22 144/83 Mechanical Ventilator 100 08/12/20 02:45 75 24 139/83 (101) 97 08/12/20 02:30 77 25 139/80 (99) 99 08/12/20 02:15 74 22 143/82 (102) 99 08/12/20 02:00 59 24 127/75 (92) 96 08/12/20 02:00 22 126/86 Mechanical Ventilator 100 08/12/20 02:00 22 126/86 Mechanical Ventilator 100 08/12/20 01:45 60 22 130/77 (94) 97 08/12/20 01:30 62 23 126/74 (91) 98 08/12/20 01:15 62 23 118/78 (91) 99 08/12/20 01:00 64 24 130/73 (92) 99 08/12/20 01:00 22 139/83 Mechanical Ventilator 100 08/12/20 01:00 22 139/83 Mechanical Ventilator 100 08/12/20 00:45 70 23 131/79 (96) 100 08/12/20 00:43 24 134/75 Mechanical Ventilator 100 08/12/20 00:30 74 22 134/75 (94) 100 08/12/20 00:15 66 22 110/68 (82) 97 08/12/20 00:00 Mechanical Ventilator 08/12/20 00:00 71 08/12/20 00:00 98.5 64 22 117/67 (84) 97 08/12/20 00:00 100 08/12/20 00:00 22 110/68 Mechanical Ventilator 100 08/12/20 00:00 22 110/68 Mechanical Ventilator 100 08/11/20 23:45 63 22 111/74 (86) 97 08/11/20 23:30 59 22 108/73 (85) 97 08/11/20 23:15 60 22 108/64 (79) 97 08/11/20 23:15 70 21 100 08/11/20 23:00 32 142/86 Mechanical Ventilator 100 08/11/20 23:00 28 142/86 Mechanical Ventilator 100 08/11/20 23:00 60 22 110/73 (85) 98 08/11/20 22:45 59 22 120/74 (89) 98 08/11/20 22:44 28 118/77 Mechanical Ventilator 100 08/11/20 22:44 32 139/76 Mechanical Ventilator 100 08/11/20 22:30 67 22 118/77 (91) 99 08/11/20 22:15 77 24 139/76 (97) 96 08/11/20 22:00 22 139/76 Mechanical Ventilator 100 08/11/20 22:00 28 139/76 Mechanical Ventilator 100 08/11/20 22:00 57 13 117/74 (88) 98 08/11/20 21:45 59 18 125/73 (90) 100 08/11/20 21:30 65 0 142/74 (96) 100 08/11/20 21:15 60 14 120/71 (87) 99 08/11/20 21:10 22 124/76 Mechanical Ventilator 100 08/11/20 21:10 22 124/76 Mechanical Ventilator 100 08/11/20 21:00 64 10 124/76 (92) 100 08/11/20 21:00 22 120/71 Mechanical Ventilator 100 08/11/20 21:00 22 120/71 Mechanical Ventilator 100 08/11/20 21:00 46 124/76 08/11/20 20:45 73 8 143/78 (99) 94 08/11/20 20:30 71 13 123/71 (88) 98 08/11/20 20:15 71 20 125/64 (84) 98 08/11/20 20:00 81 08/11/20 20:00 22 125/64 Mechanical Ventilator 100 08/11/20 20:00 22 125/64 Mechanical Ventilator 100 08/11/20 20:00 98.5 74 19 136/74 (94) 99 08/11/20 20:00 Mechanical Ventilator 3/12/21 20:00 100 08/11/20 19:45 73 23 127/77 (94) 98 08/11/20 19:30 72 22 146/80 (102) 100 08/11/20 19:30 73 22 100 08/11/20 19:15 61 22 114/78 (90) 95 08/11/20 19:00 64 24 121/78 (92) 96 08/11/20 19:00 22 114/78 Mechanical Ventilator 100 08/11/20 19:00 22 114/78 Mechanical Ventilator 100 08/11/20 18:00 78 22 130/79 (96) 100 08/11/20 18:00 23 134/81 Mechanical Ventilator 100 08/11/20 18:00 23 134/81 Mechanical Ventilator 100 Intake and Output 08/11/20 08/12/20 19:00 07:00 Intake Total 1459.2 ml 1142.667 ml Output Total 920 ml 1575 ml Balance 539.2 ml -432.333 ml Free Water 50 ml IV Total 749.2 ml 537.667 ml Tube Feeding 660 ml 605 ml Output Urine Total 840 ml 1450 ml Stool Total 80 ml 125 ml Laboratory Tests 08/11/20 21:15: POC Whole Blood Glucose [Pending] 08/12/20 03:30: White Blood Count 13.2H, Red Blood Count 3.53L, Hemoglobin 10.2L, Hematocrit 31.7L, Mean Corpuscular Volume 90, Mean Corpuscular Hemoglobin 29.0, Mean Corpuscular Hemoglobin Concent 32.3, Red Cell Distribution Width 15.9H, Platelet Count 92L, Mean Platelet Volume 9.2, Neutrophils (%) (Auto) , Lymphocytes (%) (Auto) , Monocytes (%) (Auto) , Eosinophils (%) (Auto) , Basophils (%) (Auto) , Differential Total Cells Counted 100, Neutrophils % (Manual) 94H, Lymphocytes % (Manual) 2L, Monocytes % (Manual) 4, Eosinophils % (Manual) 0, Basophils % (Manual) 0, Band Neutrophils 0, Platelet Estimate DecreasedL, Platelet Morphology Normal, Hypochromasia 1+, Basophilic Stippling 1+, Anisocytosis 1+, Sodium Level 149H, Potassium Level 4.2, Chloride Level 111H, Carbon Dioxide Level 33H, Anion Gap 5, Blood Urea Nitrogen 37H, Creatinine 0.7, Estimat Glomerular Filtration Rate > 60, Glucose Level 169H, Calcium Level 8.5, Phosphorus Level 2.8, Magnesium Level 1.8, Total Bilirubin 0.3, Aspartate Amino Transf (AST/SGOT) 37, Alanine Aminotransferase (ALT/SGPT) 112H, Alkaline Phosphatase 98, C-Reactive Protein, Quantitative < 0.4, Pro-B-Type Natriuretic Peptide 992H, Total Protein 4.9L, Albumin 1.9L, Globulin 3.0, Albumin/Globulin Ratio 0.6L, Triglycerides Level 320H Height (Feet): 5 Height (Inches): 3.00 Weight (Pounds): 162 Objective Mildly obese woman NAD, comfortable NCAT (+) ETT (+) OGT coarse BS RR abd soft, obese trace edema Assessment/Plan Status: not improved Assessment/Plan: Assessment - COVID infection --> now COVID negative - PNA, resp failure --> vent dependent - dysphagia - on OGT feeds - CHF - DM - anemia - poor prognosis Recommendations - Continue TF - elevate HOB - follow labs and exam - supportive care - check coags Holly Rehman MD Aug 12, 2020 17:43
--- NOTE | 2020-08-12 19:15 | NUR ---
NURSE HAND-OFF REPORT: Latest Vital Signs: Temperature 100.2 , Pulse 149 , B/P 127 /112 , Respiratory Rate 33 , O2 SAT 56 , Mechanical Ventilator, O2 Flow Rate . Vital Sign Comment: guarded,pt's temp down to T100.2 EKG Rhythm: Sinus Tachycardia Rhythm change?: N MD Notified?: N - MD Response: Latest Plaza Fall Score: 50 Fall Risk: High Risk Safety Measures: Call light Within Reach, Bed Alarm Zone 3, Side Rails Side Rails x2, Bed position Low and Locked. Fall Precautions: Yellow Socks Yellow Gown Door Sign Patient Fall Education Report given to .Krystal Renteria RN.
--- NOTE | 2020-08-12 19:45 | NUR ---
Patient is calm not in acute distress, pt is tachycardic and respirations in the 20s. Safety measures in place, refer to pt MR for full assessment and trending vitals.
[2020-08-12] MEDS: Dyna-Hex 2% Top Sol 2oz TOPIC SCH (20:21)
[2020-08-13] VITALS (10 sets, daily range): BP systolic 43–148; BP diastolic 23–89
[2020-08-13] MEDS: NovoLOG Insulin Flexpen SUBQ SCH
[2020-08-13] MEDS: Solu-MEDROL 40mg Inj IVP SCH
[2020-08-13] MEDS ORDERED: Midazolam HCl 50mg/10ml vial 50 MG in NS 90 ML IV PRN ×2
[2020-08-13] MEDS: fentaNYL 2500mcg/NS 250ml 250 ML IV SCH (01:58)
--- NOTE | 2020-08-13 05:00 | NUR ---
Overnight Pt was initially tachycardic and increased agitation was noted, PRN Ativan was given for increased HR and RR. At 0000 HR dropped from 150s to 90s and was hypotensive. 0140 HR went up to 140s, Pt HR and BP fluctuated. Family was notified of patient condition and code status remained DNR. PT became pulseless and time of was shortly thereafter pronounced. Please refer to MR for full assessment and trending vitals.
== END 2020-08-13 06:00 | disposition expired | DRG 130 ==
LOC: EDBD 11:27 → EDBEDREQ 12:14 → EMR 12:43 → 2W 12:50 → EDBEDREQ 13:14 → 2W 14:18 → ICU 07-25 16:59
DX: U07.1 COVID-19 (principal); J12.82 Pneumonia due to coronavirus disease 2019; I50.33 Acute on chronic diastolic (congestive) heart failure; E87.1 Hypo-osmolality and hyponatremia; E11.9 Type 2 diabetes mellitus without complications; I11.0 Hypertensive heart disease with heart failure; J15.1 Pneumonia due to Pseudomonas; J96.01 Acute respiratory failure with hypoxia; R04.0 Epistaxis; K21.9 Gastro-esophageal reflux disease without esophagitis; N17.9 Acute kidney failure, unspecified; R00.0 Tachycardia, unspecified; R57.9 Shock, unspecified; Z99.11 Dependence on respirator [ventilator] status; R13.10 Dysphagia, unspecified
CPT/HCPCS: 36415; 71045; 74018; 80048; 80053; 80061; 80202; 81001; 82248; 82550; 82553; 82607; 82728; 82746; 82803; 82962; 82977; 83036; 83605; 83615; 83690; 83735; 83880; 83930; 83935; 84100; 84300; 84443; 84478; 84484; 84550; 85007; 85025; 85379; 85610; 85730; 86140; 86850; 86900; 86901; 86920; 86927; 87040; 87070; 87181; 87205; 93005; 93306; 93970; 94002; 94003; 94660; 96361; 96365; 96372; 96375; 99291; J1815; J3490; J7030; J8499; S5561